=== PATIENT | female | born 1990 | race Caucasian/White ===

== ENCOUNTER 2023-07-29 20:15 | Outpatient (REF) | payer BC, OTHER, SELFPAY ==
[2023-08-03 15:08] LABS: Age Gdln ACOG Testing Note (.); HPV Aptima Negative (Negative); IGP, Aptima HPV, rfx 16/18,45 Note (.)
== END 2023-07-29 20:16 | disposition home or self-care (01) ==
LOC: LAB 20:15
PROVIDERS: PCP Family Medicine; Visit Provider Obstetrics & Gynecology
DX: Z12.4 Encounter for screening for malignant neoplasm of cervix (principal)
CPT/HCPCS: 87624; G0145

== ENCOUNTER 2023-12-29 07:52 | Outpatient (OUT) | payer BC, SELFPAY | END 2023-12-29 07:53 | disposition home or self-care (01) | PROVIDERS: PCP Family Medicine; Visit Provider Obstetrics & Gynecology | DX: R10.2 Pelvic and perineal pain (principal); N80.9 Endometriosis, unspecified ==

== ENCOUNTER 2024-01-07 08:56 | Day surgery (SDC) | payer BC, SELFPAY ==
[2023-12-29 08:22] VITALS: BP 96/63; PULSE 85; RESP 16; TEMP 36.2; O2SAT 98; BMI 21.9
[2024-01-07] VITALS (11 sets, daily range): BP systolic 84–111; BP diastolic 52–70; PULSE 55–90; RESP 16–25; TEMP 36.4; O2SAT 95–100; BMI 23.3
[2024-01-07 09:05] LABS: Basophils Percent Auto 0.5 % (0.2-2.0); Eosinophils Absolute Auto 0.1 10^3/uL (0.0-0.7); Eosinophils Percent Auto 1.1 % (0.9-7.0); Hematocrit 45.9 % (36.0-48.0); Hemoglobin 15.5 g/dL (12.0-16.0); Immature Granulocytes Abs Auto 0.01 10^3/uL (0.00-0.03); Immature Granulocytes Pct Auto 0.2 % (0.0-0.5); Lymphocytes Percent Auto 46.9 % (20.5-60.0); Mean Corpuscular HGB Conc 33.8 g/dL (29.9-35.2); Mean Corpuscular Hemoglobin 31.8 pg (26.7-34.0); Mean Corpuscular Volume 94.3 fL (81.0-99.0); Monocytes Absolute Auto 0.4 10^3/uL (0.3-0.8); Monocytes Percent Auto 5.5 % (1.7-12.0); Neutrophils Absolute Auto 2.9 10^3/uL (1.4-6.5); Neutrophils Percent Auto 45.8 % (43.0-75.0); Platelet Count 231 10^3/uL (150-450); Red Blood Count 4.87 10^6/uL (4.20-5.40); Red Cell Distribution Width 11.8 % (11.0-15.0); White Blood Count 6.4 10^3/uL (4.0-11.0)
--- OUTSIDE RECORDS SUMMARY | 2024-01-07 09:15 | XMS_ITS | CCD ---
Author Name Unknown Address [address] [facility] [address] [place] [id number] Organization [facility] Care Team Providers Care Crown Buffer Name Role Phone RAIN ., DR MARY Attending Unavailable RAIN ., DR MARY Admitting Unavailable JAUNY ., DR MARY Primary Care Unavailable JAUNY ., DR MARY Consulting Unavailable SARAI WILKINS Consulting Unavailable LAVON ELIZALDE Consulting Unavailable SISTER, CUCA Consulting Unavailable RATURO II, LUL Consulting Unavailable TAMLYN ., DL Consulting Unavailable KARTARAN ., DR HENAO Admitting Unavailabl e KARASIK ., DR HENAO Consulting Unavailabl e KARASIK ., DR HENAO Attending Unavailabl e HOY ., DR MARY Primary Care Unavailable ANGELIA ATKINS Attending Unavailable Problems Active Problems Problem Classification Problem Date Documented Da te Episodic/Chronic Abdominal pain (3 sources) Unspecified abdominal pain; Translations: [UNSPECIFIED ABDOMINAL PAIN] Onset: 04-03-2023 Episodic Anxiety disorders (1 source) Anxiety disorder, unspecified; Translations: [ANXIETY DISORDER UNSPECIFIED] Onset: 04-08-2023 Chronic Appendicitis and other appendiceal conditions (1 source) Unspecified acute appendicitis; Translations: [UNSPECIFIED ACUTE APPENDICITIS] Onset: 04-08-2023 Episodic Residual codes; unclassified (1 source) Acquired absence of both cervix and uterus; Translations: [ACQUIRED ABSENCE BOTH CERVIX AND UTERUS] Onset: 04-08-2023 Episodic Substance-related disorders (1 source) Nicotine dependence, cigarettes, uncomplicated; Translations: [NICOTINE DEPEND CIGARETTES UNCOMP] Onset: 04-08-2023 Chronic Past or Other Problems Problem Classification Problem Date Documented Date Episodic/Chronic Immunizations and screening for infectious disease (1 source) Encounter for screening for human papillomavirus (HPV); Translations: [ENC SCREENING HUMAN PAPILLOMAVIRUS] Onset: 09-11-2022 Episodic Results Test Name Value Interpretation Reference Range Facil ity AMYLASEon 04-03-2023 Amylase [Catalytic activity/Vol] 62 U/L Normal 25-115 [facility] Comment on above: Performed By: #### L JOSR, ANDERSON ####[facility] [id number] [address]Dr. Reece Garg CBC AUTO DIFFon 04-03-2023 BASO # 0.0 103/ul Normal 0.0-0.1 [facility] Comment on above: Performed By: #### C BC #### [facility] [address] [address] [address] Reece Garg Basophils/100 WBC (Bld) 0.3 % Normal 0.2-2.0 [facility] Comment on above: Performed By: #### C BC #### [facility] [address] [address] [address] Reece Garg EO # 0.1 103/ul Normal 0.0-0.7 [facility] Comment on above: Performed By: #### C BC #### [facility] [address] [address] [address] Reece Garg Eosinophils/100 WBC (Bld) 0.6 % Critically low 0.9-7.0 [facility] Comment on above: Performed By: #### C BC #### [facility] [address] [address] [address] Reece Garg Erythrocyte distribution width (RBC) [Ratio] 11.9 % Normal 11.0-15.[address] [facility] Comment on above: Performed By: #### C BC #### [facility] [address] [address] [address] Reece Garg Hematocrit (Bld) [Volume fraction] 37.7 % Normal 36.0-48.0 [facility] Comment on above: Performed By: #### C BC #### [facility] [address] [address] [address] Reece Garg Hemoglobin (Bld) [Mass/Vol] 12.9 g/dL Normal 12.0-16.0 [facility] Comment on above: Performed By: #### C BC #### [facility] [address] [address] [address] Reece Garg IG # 0.05 10e3/ul Critically high 0.00-0.03 [facility] Comment on above: Performed By: #### C BC #### [facility] [address] [address] [address] Reece Garg IG % 0.4 % Normal 0.0-0.5 [facility] Comment on above: Performed By: #### C BC #### [facility] [address] [place] [address] Dr. Reece Garg LYMPH # 2.3 103/ul Normal 1.2-3.8 [facility] Comment on above: Performed By: #### C BC #### [facility] [address] [place] [address] Dr. Reece Garg Lymphocytes/100 WBC (Bld) 20.8 % Normal 20.5-60.0 [facility] Comment on above: Performed By: #### C BC #### [facility] [address] [place] [address] Dr. Reece Garg MANUAL DIFF REQ NO Normal [facility] Comment on above: Performed By: #### C BC #### [facility] [address] [place] [address] Dr. Reece Garg MCH (RBC) [Entitic mass] 32.3 pg Normal 26.7-34.0 [facility] Comment on above: Performed By: #### C BC #### [facility] [address] [place] [address] Dr. Reece Garg MCHC (RBC) [Mass/Vol] 34.2 g/dL Normal 29.9-35.2 [facility] Comment on above: Performed By: #### C BC #### [facility] [address] [place] [address] Dr. Reece Garg MCV (RBC) [Entitic vol] 94.3 fL Normal 81.0-99.0 [facility] Comment on above: Performed By: #### C BC #### [facility] [address] [address] [address] Reece Garg MONO # 0.6 103/ul Normal 0.3-0.[address] [facility] Comment on above: Performed By: #### C BC #### [facility] [address] [place] [address] Dr. Reece Garg Monocytes/100 WBC (Bld) 5.3 % Normal 1.7-12.0 [facility] Comment on above: Performed By: #### C BC #### [facility] [address] [place] [address] Dr. Reece Garg NEUT # 8.1 103/ul Critically high 1.4-6.5 [facility] Comment on above: Performed By: #### C BC #### [facility] [address] [place] [address] Dr. Reece Garg Neutrophils/100 WBC (Bld) 72.6 % Normal 43.0-75.0 [facility] Comment on above: Performed By: #### C BC #### [facility] [address] [place] [address] Dr. Reece Garg Platelet mean volume (Bld) [Entitic vol] 10.2 fL Normal 9.5-13.[address] [facility] Comment on above: Performed By: #### C BC #### [facility] [address] [place] [address] Dr. Reece Garg PLT 163 103/ul Normal 150-[address] [facility] Comment on above: Performed By: #### C BC #### [facility] [address] [place] [address] Dr. Reece Garg RBC 4.00 106/ul Critically low 4.20-5.40 [facility] Comment on above: Performed By: #### C BC #### [facility] [address] [place] [address] Dr. Reece Garg WBC 11.1 103/ul Critically high 4.0-11.0 [facility] Comment on above: Performed By: #### C BC #### [facility] [address] [place] [address] Dr. Reece Garg BASO # 0.0 103/ul Normal 0.0-0.1 [facility] Comment on above: Performed By: #### C BC #### [facility] [address] [place] [address] Dr. Reece Garg Basophils/100 WBC (Bld) 0.3 % Normal 0.2-2.0 [facility] Comment on above: Performed By: #### C BC #### [facility] [address] [place] [address] Dr. Reece Garg EO # 0.1 103/ul Normal 0.0-0.7 [facility] Comment on above: Performed By: #### C BC #### [facility] [address] [place] [address] Dr. Reece Garg Eosinophils/100 WBC (Bld) 0.7 % Critically low 0.9-7.0 [facility] Comment on above: Performed By: #### C BC #### [facility] [address] [place] [address] Dr. Reece Garg Erythrocyte distribution width (RBC) [Ratio] 12.0 % Normal 11.0-15.0 [facility] Comment on above: Performed By: #### C BC #### [facility] [address] [place] [address] Dr. Reece Garg Hematocrit (Bld) [Volume fraction] 41.4 % Normal 36.0-48.0 [facility] Comment on above: Performed By: #### C BC #### [facility] [address] [place] [address] Dr. Reece Garg Hemoglobin (Bld) [Mass/Vol] 14.3 g/dL Normal 12.0-16.0 [facility] Comment on above: Performed By: #### C BC #### [facility] [address] [place] [address] Dr. Reece Garg IG # 0.05 10e3/ul Critically high 0.00-0.03 [facility] Comment on above: Performed By: #### C BC #### [facility] [address] [place] [address] Dr. Reece Garg IG % 0.3 % Normal 0.0-0.5 [facility] Comment on above: Performed By: #### C BC #### [facility] [address] [place] [address] Dr. Reece Garg LYMPH # 1.6 103/ul Normal 1.2-3.8 [facility] Comment on above: Performed By: #### C BC #### [facility] [address] [place] [address] Dr. Reece Garg Lymphocytes/100 WBC (Bld) 10.6 % Critically low 20.5-60.0 [facility] Comment on above: Performed By: #### C BC #### [facility] [address] [place] [address] Dr. Reece Garg MANUAL DIFF REQ NO Normal [facility] Comment on above: Performed By: #### C BC #### [facility] [address] [place] [address] Dr. Reece Garg MCH (RBC) [Entitic mass] 32.1 pg Normal 26.7-34.0 [facility] Comment on above: Performed By: #### C BC #### [facility] [address] [place] [address] Dr. Reece Garg MCHC (RBC) [Mass/Vol] 34.5 g/dL Normal 29.9-35.2 [facility] Comment on above: Performed By: #### C BC #### [facility] [address] [place] [address] Dr. Reece Garg MCV (RBC) [Entitic vol] 93.0 fL Normal 81.0-99.0 [facility] Comment on above: Performed By: #### C BC #### [facility] [address] [place] [address] Dr. Reece Garg MONO # 0.7 103/ul Normal 0.3-0.8 [facility] Comment on above: Performed By: #### C BC #### [facility] [address] [place] [address] Dr. Reece Garg Monocytes/100 WBC (Bld) 4.7 % Normal 1.7-12.0 [facility] Comment on above: Performed By: #### C BC #### [facility] [address] [address] [address] Reece Garg NEUT # 12.9 103/ul Critically high 1.4-6.5 [facility] Comment on above: Performed By: #### C BC #### [facility] [address] [address] [address] Reece Garg Neutrophils/100 WBC (Bld) 83.4 % Critically high 43.0-75.0 [facility] Comment on above: Performed By: #### C BC #### [facility] [address] [place] [address] Dr. Reece Garg Platelet mean volume (Bld) [Entitic vol] 10.4 fL Normal 9.5-13.5 [facility] Comment on above: Performed By: #### C BC #### [facility] [address] [place] [address] Dr. Reece Garg PLT 194 103/ul Normal 150-[address] [facility] Comment on above: Performed By: #### C BC #### [facility] [address] [place] [address] Dr. Reece Garg RBC 4.45 106/ul Normal 4.20-5.[address] [facility] Comment on above: Performed By: #### C BC #### [facility] [address] [place] [address] Dr. Reece Garg WBC 15.4 103/ul Critically high 4.0-11.0 [facility] Comment on above: Performed By: #### C BC #### [facility] [address] [place] [address] ABD/PELV W CONon 04-03-20 CT ABD/PELV W CON CT ABD/PELV W CON: 04/02/2023 11:09 PM EDT CLINICAL HISTORY: 33 years old Female with NAUSEA WITH VOMITING, UNSPECIFIED. TECHNIQUE: Axial CT images through the abdomen and pelvis are obtained after the intravenous administration of contrast. Coronal and sagittal reformations are also obtained. Dose reduction techniques were achieved by using automated exposure control and/or adjustment of mA and/or kV according to patient size and/or use of iterative reconstruction technique. COMPARISON: None available. FINDINGS: The lung bases are clear with no dependent infiltrate or effusion. The liver, gallbladder, spleen, pancreas and bilateral adrenal glands are unremarkable. The bilateral kidneys demonstrate normal enhancement without hydronephrosis. The bilateral ureters demonstrate no gross abnormality or obstruction. The stomach and small bowel are unremarkable. The appendix is abnormally distended at 1.0 cm and fluid-filled with enhancing mucosa and surrounding stranding densities. Small free fluid is present within the pelvis. There is fluid density within the cecum and the majority of the colon is nondistended with apparent mucosal thickening. No free air or abscess formation. The bladder appears unremarkable. There is no evidence of aortic aneurysm present. No enlarged lymph nodes are seen. No free air or free fluid is seen. The uterus is surgically absent. Right corpus luteal cyst measures 2.2 x 1.7 x 2.8 cm in AP, transverse and longitudinal diameter. The osseous structures appear unremarkable. IMPRESSION: 1. Acute appendicitis with the appendix distended at 1.0 cm with stranding stranding and free fluid. No free air or abscess formation. 2. Fluid within the colon is largely nondistended with apparent mucosal thickening suggesting diarrheal illness and possible colitis. 3. Right corpus luteal cyst measures 2.8 cm. Findings discussed with Dr. Wilkins 04/03/2023 at 1:32 AM. Electronically authenticated by: LAVON ELIZALDE Date: 2023-04-03 01:36 Normal [facility] ER URINE PROFILEon 3 Bilirubin Ql (U) Negative Normal NEGATIVE [facility] Comment on above: Performed By: #### P REGU, ERUR #### [facility] [address] [place] [address] Dr. Reece Garg Clarity (U) CLEAR Normal CLEAR [facility] Comment on above: Performed By: #### P REGU, ERUR #### [facility] [address] [address] [address] Reece Garg Color (U) LT. YELLOW Normal YELLOW [facility] Comment on above: Performed By: #### P REGU, ERUR #### [facility] [address] [place] [address] Dr. Reece KHAN A micrscopic examination will be performed if indicated. Normal [facility] Comment on above: Performed By: #### P REGU, ERUR #### [facility] [address] [address] [address] Reece Garg Glucose Ql (U) Negative Normal NEGATIVE [facility] Comment on above: Performed By: #### P REGU, ERUR #### [facility] [address] [address] [address] Reece Garg Hemoglobin Ql (U) Negative Normal NEGATIVE [facility] Comment on above: Performed By: #### P REGU, ERUR #### [facility] [address] [place] [address] Dr. Reece Garg Ketones Ql (U) 15 mg/dl Abnormal NEGATIVE [facility] Comment on above: Performed By: #### P REGU, ERUR #### [facility] [address] [place] [address] Dr. Reece Garg LEUKOCYTES Negative Normal NEGATIVE [facility] Comment on above: Performed By: #### P REGU, ERUR #### [facility] [address] [address] [address] Reece Garg Nitrite Ql (U) Negative Normal NEGATIVE [facility] Comment on above: Performed By: #### P REGU, ERUR #### [facility] [address] [place] [address] Dr. Reece Garg pH (U) 5.5 [pH] Normal 5-9 [facility] Comment on above: Performed By: #### P REGU, ERUR #### [facility] [address] [place] [address] Dr. Reece Garg SPEC GRAVITY <=1.005 Abnormal 1.005-<=1.025 [facility] Comment on above: Performed By: #### P REGU, ERUR #### [facility] [address] [place] [address] Dr. Reece Garg UA PROTEIN Negative Normal NEGATIVE/ TRACE [facility] Comment on above: Performed By: #### P REGU, ERUR #### [facility] [address] [address] [address] Reece Garg UR MICRO IND NOT INDICATED Normal [facility] Comment on above: Performed By: #### P REGU, ERUR #### [facility] [address] [address] [address] Reece Garg Urobilinogen Qn (U) 0.2 {Dariel'U}/dL Normal 0.2 - 1.0 [facility] Comment on above: Performed By: #### P REGU, ERUR #### [facility] [address] [place] [address] Dr. Reece Garg LIPASEon 04-03-2023 Lipase [Catalytic activity/Vol] 62.0 U/L Critically low 73.0-393.0 [facility] Comment on above: Performed By: #### L IPA, ANDERSON ####[facility] [id number] [address]Dr. Reece Garg MONOon 04-03-2023 Monocytes (Bld) [#/Vol] Negative Normal NEGATIVE [facility] Comment on above: Performed By: #### M JOSE DANIEL #### [facility] [address] [place] [address] Dr. Reece Garg URon 04-03-2023 , QUAL Negative Normal NEGATIVE [facility] Comment on above: Performed By: #### P REGU, ERUR #### [facility] [address] [place] [address] Dr. Reece Garg PROF 14(COMP METB)on 023 Albumin [Mass/Vol] 3.3 g/dL Critically low 3.4-5.[address] [facility] Comment on above: Performed By: #### C MP #### [facility] [address] [place] [address] Dr. Reece Garg Albumin/Globulin [Mass ratio] 1.0 {ratio} Normal [facility] Comment on above: Performed By: #### C MP #### [facility] [address] [place] [address] Dr. Reece Garg ALP [Catalytic activity/Vol] 38 U/L Critically low 46-116 [facility] Comment on above: Performed By: #### C MP #### [facility] [address] [address] [address] Reece Garg ALT [Catalytic activity/Vol] 16 U/L Normal 14-59 [facility] Comment on above: Performed By: #### C MP #### [facility] [address] [address] [address] Reece Garg Anion gap [Moles/Vol] 10.7 mmol/L Normal [facility] Comment on above: Performed By: #### C MP #### [facility] [address] [address] [address] Reece Garg AST [Catalytic activity/Vol] 10 U/L Critically low 15-37 [facility] Comment on above: Performed By: #### C MP #### [facility] [address] [address] [address] Reece Garg Bilirubin [Mass/Vol] 1.0 mg/dL Normal 0.2-1.0 [facility] Comment on above: Performed By: #### C MP #### [facility] [address] [address] [address] Reece Garg Calcium [Mass/Vol] 8.2 mg/dL Critically low 8.5-10.[address] [facility] Comment on above: Performed By: #### C MP #### [facility] [address] [address] [address] Reece Garg Chloride [Moles/Vol] 106 mmol/L Normal 98-[address] [facility] Comment on above: Performed By: #### C MP #### [facility] [address] [address] [address] Reece Garg CO2 [Moles/Vol] 27.0 mmol/L Normal 21.0-32.0 [facility] Comment on above: Performed By: #### C MP #### [facility] [address] [address] [address] Reece Garg Creatinine [Mass/Vol] 0.77 mg/dL Normal 0.55-1.02 [facility] Comment on above: Performed By: #### C MP #### [facility] [address] [address] [address] Reece Garg EGFR-AF SALVADOREAN >60 Normal >=60 [facility] Comment on above: Performed By: #### C MP #### [facility] [address] [address] [address] Reece Garg EGFR-NON AF SALVADOREAN >60 Normal >=[address] [facility] Comment on above: Performed By: #### C MP #### [facility] [address] [address] [address] Reece Garg Globulin (S) [Mass/Vol] 3.3 g/dL Normal [facility] Comment on above: Performed By: #### C MP #### [facility] [address] [address] [address] Reece Garg Glucose [Mass/Vol] 102 mg/dL Normal 74-106 [facility] Comment on above: Performed By: #### C MP #### [facility] [address] [address] [address] Reece Garg Potassium [Moles/Vol] 3.7 mmol/L Normal 3.5-5.[address] [facility] Comment on above: Performed By: #### C MP #### [facility] [address] [address] [address] Reece Garg Protein [Mass/Vol] 6.6 g/dL Normal 6.4-8.2 [facility] Comment on above: Performed By: #### C MP #### [facility] [address] [address] [address] Reece Garg Sodium [Moles/Vol] 140 mmol/L Normal 136-145 [facility] Comment on above: Performed By: #### C MP #### [facility] [address] [address] [address] Reece Garg Urea nitrogen [Mass/Vol] 8.0 mg/dL Normal 7.0-18.0 [facility] Comment on above: Performed By: #### C MP #### [facility] [address] [place] [address] Dr. Reece Garg Urea nitrogen/Creatinin e [Mass ratio] 10.4 mg/mg Normal [facility] Comment on above: Performed By: #### C MP #### [facility] [address] [place] [address] Dr. Reece Garg PROTIMEon 04-03-2023 INR Coag (PPP) [Relative time] 1.06 {INR} Normal [facility] Comment on above: Performed By: #### P TT, PT #### [facility] [address] [place] [address] Dr. Reece Garg INR GUIDELINES SEE BELOW Normal [facility] Comment on above: Result Comment: JJ RED INR: 2.0 - 3.0 CONDITIONS NOT LISTED BELOW 2.5 - 3.5 FOR PROSTHETIC HEART VALVE REPLACEMENT 2.5 - 3.5 RECURRENT THROMBOSIS Performed By: #### P TT, PT #### [facility] [address] [place] [address] Dr. Reece Garg PT Coag (PPP) [Time] 11.2 s Normal 9.0-11.[address] [facility] Comment on above: Performed By: #### P TT, PT #### [facility] [address] [place] [address] Dr. Reece Garg PTTon 04-03-2023 aPTT Coag (Bld) [Time] 28.1 s Normal 22.3-36.[address] [facility] Comment on above: Performed By: #### P TT, PT #### [facility] [address] [place] [address] Dr. Reece Garg PAP ACOG PANEL 2: 30 to 65on 07-28-2022 . . Normal [facility] Comment on above: Result Comment: Perf ormed at: WB Performed By: #### [id number] ####[facility] [address] [place] [address]Dr. Reece Garg Age Gdln ACOG Testing 30-65 Normal [facility] Comment on above: Performed By: #### [id number] ####[facility] [address] [place] [id number]. Reece Garg DIAGNOSIS: Comment Normal [facility] Comment on above: Result Comment: NEGA TIVE FOR INTRAEPITHELIAL LESION OR MALIGNANCY. Performed at: WB Performed By: #### 4 [id number] ####[facility] [address] [place] [address]Dr. Reece Garg HPV Aptima Negative Normal Negative [facility] Comment on above: Result Comment: This nucleic acid amplification test detects fourteen high-risk HPV types (16,18,31,33,35,39,45,51,52,56,58,59,66,68) without differentiation. Performed at: =G Performed By: #### [id number] ####[facility] [address] [place], [place] [address]Dr. Reece Garg Methodology: Comment Normal [facility] Comment on above: Result Comment: This liquid based ThinPrep(R) pap test was screened with the use of an image guided system. Performed at: WB Performed By: #### [id number] ####[facility] [address] [place], [place] [address]Dr. Reece Garg Note: Comment Normal [facility] Comment on above: Result Comment: The Pap smear is a screening test designed to aid in the detection of premalignant and malignant conditions of the uterine cervix. It is not a diagnostic procedure and should not be used as the sole means of detecting cervical cancer. Both false-positive and false-negative reports do occur. . Performed at: WB Performed By: #### [id number] ####[facility] [address] [place], [place] [address]Dr. Reece Garg Performed by: Comment Normal [facility] Comment on above: Result Comment: Alexandra Cortez, Pharmacoepidemiologist (ASCP) Performed at: WB Performed By: #### [id number] ####[facility] [address] [place], [place] [address]Dr. Reece Garg Specimen adequacy: Comment Normal [facility] Comment on above: Result Comment: Sati sfactory for evaluation. No endocervical component is identified. Performed at: WB Performed By: #### [id number] ####[facility] [address] [place], [place] [address]ZhDr. Reece Garg VAGINITIS/VAGINOSIS DNA PROB Erwin 07-24-2022 Mala species Negative Normal Negative [facility] Comment on above: Performed By: #### V AGINT #### [facility] [address] [place], [place] [address] Dr. Reece Garg Gardnerella vaginalis Positive Abnormal Negative [facility] Comment on above: Performed By: #### V AGINT #### [facility] [address] [address] [address] Reece Grag Trichomonas vaginalis Negative Normal Negative [facility] Comment on above: Performed By: #### V AGINT #### [facility] [address] [address] [address] Reece Garg [place] 06-03-2020 Consent [id number]. [id number] Normal [facility] Encounters Encounter Date Encounter Type Care Provider Facility Start: 11-04-2023 End: 11-04-2023 ambulatory ANGELIA ATKINS Not Available Start: 04-03-2023 End: 04-03-[address] USMAN RODRIGEZ . Facility:[facility] Start: 07-26-2022 Encounter for gynecological examination (general) (routine) without abnormal findings DR EARLENE MCDONOUGH . [facility] Start: 07-22-2022 End: 07-22-[address] EARLENE MCDONOUGH . Facility:[facility] Start: 07-22-2022 End: 07-22-2022 Encounter for gynecological examination (general) (routine) without abnormal findings DR EARLENE MCDONOUGH . Facility:[facility] Payers Date Payer Category Payer Unknown [id number] [id number] [id number] 1992 Unknown [id number] 1992 Unknown [id number] 1957 Medicaid [id number] 1957 Unknown [id number] 1957 Unknown [id number] 1959 Unknown [id number] Summary Purpose Family History No Family History Records FoundNo Family History Records FoundNo Family History Records Found Advance Directives No Advanced Directives Records FoundNo Advanced Directives Records FoundNo Advanced Directives Records Found Additional Source Comments INFORMATION SOURCE (unrecogn ized section and content) DATE CREATED AUTHOR 06/08/2020 [facility] DATE CREATED AUTHOR AUTHOR'S ORGANIZ ATION 04/23/2023 [facility] DATE CREATED AUTHOR AUTHOR'S ORGANIZ ATION 11/06/2023 [facility] FOR RECORDS PERTAINING TO PATIENTS WHO ARE OR HAVE BEEN ENROLLED IN A CHEMICAL DEPENDENCY/SUBSTANCEABUSE PROGRAM, SOME INFORMATION MAY BE OMITTED. This clinical summary was aggregated from multiple sources. Caution should be exercised in using it in the provision of clinical care. This summary normalizes information from multiple sources, and as a consequence, information in this document may materially change the coding, format and clinical context of patient data. In addition, data may be omitted in some cases. CLINICAL DECISIONS SHOULD BE BASED ON THE PRIMARY CLINICAL RECORDS. [facility] [employer] [facility]. provides no warranty or guarantee of the accuracy or completeness of information in this document.
[2024-01-07] MEDS: LACTATED RINGER'S SOLUTION 1,000 ML 50 ML IV (09:36)
--- NOTE | 2024-01-07 11:29 | PM.ONB ---
Brief Operative Note Date of procedure: 01/07/24 Pre-op diagnosis: pelvic pain Post-op diagnosis: other (bilateral hydrosalpingx) Procedure: NAME OF PROCEDURE: [diagnostic laparoscopy with bilateral salpingectomy(partial) ] findings-constipation, bilateral hydrosalpingx, absent uterus,normal ovaries PROCEDURE: The patient was taken back to the Operating Room where she was placed in dorsal lithotomy position after given general anesthesia. The patient was prepped and draped in normal sterile fashion. A sponge stick was placed into the patient's vagina. Attention was turned to the patient's abdomen, where a small umbilical incision was made. The fascia was tented using Herberth clamps and the fascia was entered sharply. Confirmation of intraabdominal placement of the 10 mm port was confirmed under direct visualization using a laparoscope. The patient's abdomen was then insufflated using CO2 gas with approximately 4 liters. A second port was placed left laterally, this was done under direct visualization with a 5 mm port. Survey of the patient's abdomen demonstrated normal liver and gallbladder. Survey of the patient's pelvic anatomy demonstrated normal appearing rt and lt ovary and bilateral hydrosalpingx, absent uterus. No endometrial implants could be noted, no evidence of any pelvic disease was seen, normal appearing pelvic cavity. The ligasure was used to remove the tubes bilateral with excellent hemostasis All instruments were removed from the patient's abdomen. The patient's abdomen was deinsufflated of CO2 gas. The patient tolerated the procedure well. Sponge stick was removed from the patient's vagina. The patient's infraumbilical fascia was closed using #0 Vicryl on a GI needle. The patient's skin was closed laterally and infraumbilically using 4-0 Vicryl. The patient tolerated the procedure well. Sponge, lap and needle counts were correct x 2. The patient was taken to Recovery Room in stable condition. Anesthesia: JOYCEA Surgeon: Andre Treviño Scientist Electronics: Macey Nobles Estimated blood loss (mL): 5 Pathology: other (bilateral tubes) Condition: stable Disposition: PACU Urinary Catheter Management Urinary Catheter Management Urethral: Cath placed during this visit: no
[2024-01-07] MEDS: LACTATED RINGER'S SOLUTION 1,000 ML 150 ML IV ×2 (12:05→13:08)
[2024-01-07] MEDS: PROMETHAZINE HCL 25 MG TABLET PO (12:09)
--- NOTE | 2024-01-07 12:15 | PC.NURSE ---
pt medicatd at 1209 for nausea with PRN PO phenergan.
[2024-01-07] MEDS: ONDANSETRON PF 4 MG/2 ML VIAL IV (12:30)
--- NOTE | 2024-01-07 12:32 | PC.NURSE ---
pt has complaint of nausea,given one time dose of IV Zofran at 1230.
== END 2024-01-07 13:58 | disposition home or self-care (01) ==
PROVIDERS: PCP Family Medicine; Visit Provider Obstetrics & Gynecology
PROC: (CPT 840; principal; 2024-01-07 10:20)
DX: R10.2 Pelvic and perineal pain (principal); N80.9 Endometriosis, unspecified; N70.11 Chronic salpingitis; Z90.710 Acquired absence of both cervix and uterus; F17.210 Nicotine dependence, cigarettes, uncomplicated
CPT/HCPCS: 58661; 36415; 85025; 88302; 99999; J1094; J2704

== ENCOUNTER 2024-01-23 09:10 | Emergency (ER) | payer BC, SELFPAY ==
[2024-01-23 09:33] VITALS: BP 132/98; PULSE 108; RESP 20; O2SAT 98; BMI 23.2
--- NOTE | 2024-01-23 09:54 | ED.EXTPRO1 ---
HPI - Extremity Problem General Chief complaint: Extremity Problem, Nontraumatic Stated complaint: L LEG SWOLLEN/APIN Time Seen by Provider: 01/23/24 09:15 Source: patient Mode of arrival: walk-in Limitations: no limitations History of Present Illness HPI Narrative: 33-year-old female presents for discoloration and swelling and pain in her left leg. She has had it for a week and it has been continuous and getting worse. 2 or 3 weeks ago she had laparoscopic abdominal surgery. She has had no trauma to the leg and has no history of DVT or PE. Her mother however has a history of blood clots. Related Data Home Medications Medication Instructions Recorded Confirmed Lactobacillus acidophilus 10 100 mmu cells PO DAILY 12/29/23 01/23/24 billion cell capsule (Probiotic) levonorgestrel 0.15 mg-ethinyl 1 tab PO DAILY 12/29/23 01/23/24 estradiol 30 mcg tablets,3 mos pack(91) Previous Rx's Medication Instructions Recorded hydrocodone 5 mg-acetaminophen 325 1 tab PO Q4H PRN pain 4 days #16 01/07/24 mg tablet tabs ibuprofen 800 mg tablet 800 mg PO Q8H PRN pain 14 days #40 01/07/24 tabs Allergies Allergy/AdvReac Type Severity Reaction Status Date / Time No Known Drug Allergies Allergy Verified 12/29/23 08:11 Review of Systems ROS Narrative A ten point review of systems is negative except as noted above. [facility] Medical History (Updated 01/23/24 @ 11:18 by Duane Ness MD) COVID-19 ?U07.1 - COVID-19 (ICD-10) Migraine ?G43.909 - Migraine, unspecified, not intractable, without status migrainosus (ICD-10) Constipation ?K59.00 - Constipation, unspecified (ICD-10) Postoperative nausea and vomiting ?R11.2 - Nausea with vomiting, unspecified (ICD-10) ?Z98.890 - Other specified postprocedural states (ICD-10) Vaginal yeast infection ?B37.31 - Acute candidiasis of vulva and vagina (ICD-10) Bacterial vaginosis ?N76.0 - Acute vaginitis (ICD-10) ?B96.89 - Other specified bacterial agents as the cause of diseases classified elsewhere (ICD-10) Endometriosis ?N80.9 - Endometriosis, unspecified (ICD-10) Pelvic pain ?R10.2 - Pelvic and perineal pain (ICD-10) Surgical History (Updated 12/29/23 @ 08:18 by Lydia Ames NP) History of colonoscopy ?Z98.890 - Other specified postprocedural states (ICD-10) History of hysterectomy ?Z90.710 - Acquired absence of both cervix and uterus (ICD-10) History of laparoscopy ?Z98.890 - Other specified postprocedural states (ICD-10) History of appendectomy ?Z90.49 - Acquired absence of other specified parts of digestive tract (ICD-10) Family History (Updated 12/29/23 @ 08:18 by Lydia Ames NP) Other Family history of breast cancer Family history of myocardial infarction Social History (Updated 12/29/23 @ 08:13 by Lydia Ames NP) Within the past year, how often did you have a drink containing alcohol: never Score interpretation: A score less than 3 is consistent with normal alcohol consumption. 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 General: The patient appears well and in no apparent distress. Patient is resting comfortably on cart. Skin: Warm, dry, no pallor noted. There is no rash noted. Head: Normocephalic, atraumatic Eye: Normal conjunctiva, no drainage Ears, Nose, Mouth, and Throat: oral mucosa is moist. Nares patent. Cardiovascular: Regular Rate and Rhythm Respiratory: Patient is in no distress, no accessory muscle use, lungs are clear to auscultation, no wheezing, rales or rhonchi Back: non-tender GI: Soft and nontender Musculoskeletal: The left leg has swelling throughout the entire length and purple discoloration. Dorsalis pedis pulse 2+. Neurological: A&O, normal speech Psychiatric: Cooperative Constitutional Vital Signs, click to edit/add: Last Vital Signs Temp 98.4 F 01/23/24 11:10 Pulse 95 H 01/23/24 11:10 Resp 20 01/23/24 11:10 BP 112/68 01/23/24 11:10 Pulse Ox 98 01/23/24 11:10 O2 Del Method Room Air 01/23/24 11:10 Course Vital Signs Vital signs: Vital Signs Pulse Rate 108 H 01/23/24 09:33 Respiratory Rate 20 01/23/24 09:33 Blood Pressure 132/98 H 01/23/24 09:33 Pulse Oximetry 98 01/23/24 09:33 Oxygen Delivery Method Room Air 01/23/24 09:33 Temperature 98.4 F 01/23/24 11:10 Pulse Rate 95 H 01/23/24 11:10 Respiratory Rate 20 01/23/24 11:10 Blood Pressure 112/68 01/23/24 11:10 Pulse Oximetry 98 01/23/24 11:10 Oxygen Delivery Method Room Air 01/23/24 11:10 MDM - Extremity (Nontraumatic) MDM Narrative Medical decision making narrative: Extensive DVT is noted on the Doppler ultrasound. My clinical impression is that she has extensive DVT as well as phlegmasia. I have spoken to Dr. Bridges and the patient will be transferred to [facility] for probable thrombectomy. She was started on IV heparin here. Findings are discussed thoroughly with the patient. Differential Diagnosis Differential diagnosis: Likely other (DVT) Lab Data Attestation: I reviewed the patient's lab results. Labs: Lab Results 01/23/24 Range/Units 10:04 WBC 8.8 (4.0-11.0) 10^3/uL RBC 4.45 (4.20-5.40) 10^6/uL Hgb 14.3 (12.0-16.0) g/dL Hct 42.6 (36.0-48.0) % MCV 95.7 (81.0-99.0) fL MCH 32.1 (26.7-34.0) pg MCHC 33.6 (29.9-35.2) g/dL RDW 11.6 (11.0-15.0) % Plt Count 153 (150-450) 10^3/uL MPV 10.0 (9.5-13.5) fL Neut % (Auto) 70.6 (43.0-75.0) % Lymph % (Auto) 20.8 (20.5-60.0) % [place] % (Auto) 5.5 (1.7-12.0) % Eos % (Auto) 2.3 (0.9-7.0) % Baso % (Auto) 0.3 (0.2-2.0) % Neut # (Auto) 6.2 (1.4-6.5) 10^3/uL Lymph # (Auto) 1.8 (1.2-3.8) 10^3/uL [place] # (Auto) 0.5 (0.3-0.8) 10^3/uL Eos # (Auto) 0.2 (0.0-0.7) 10^3/uL Baso # (Auto) 0.0 (0.0-0.1) 10^3/uL Abs Immat Gran (auto) 0.04 H (0.00-0.03) 10^3/uL Imm/Tot Granulo (auto) 0.5 (0.0-0.5) % PT 9.8 (9.0-11.6) sec INR <0.93 APTT 27.2 (22.3-36.2) sec Sodium 139 (136-145) mmol/L Potassium 4.2 (3.5-5.1) mmol/L Chloride 105 (98-107) mmol/L Carbon Dioxide 24.5 (21.0-32.0) mmol/L Anion Gap 13.7 BUN 12.0 (7.0-18.0) mg/dL Creatinine 0.85 (0.55-1.02) mg/dL Est GFR ( Amer) >60 (>=60) Est GFR (Non-Af Amer) >60 (>=60) BUN/Creatinine Ratio 14.1 Glucose 83 (74-106) mg/dL Calcium 8.8 (8.5-10.1) mg/dL Imaging Data Doppler ultrasound: Radiologist's impression: ITS Impressions Venous Doppler Study 01/23/24 10:12 IMPRESSION: Extensive deep venous thrombus throughout the left iliac vein to the distal posterior tibial vein and peroneal vein as well as proximal anterior tibial vein. Electronically authenticated by: ALTA SALAZAR Date: 01/23/2024 11:08 Critical Care Time Critical Care Time Critical Care Time: Yes Total Critical Care Time: 40 Attestation: Due to the high probability of sudden and clinically significant deterioration in the patient's condition he/she required the highest level of my preparedness to intervene urgently I provided critical care time including documentation time, medication orders and management, reevaluation, vital sign assessment, ordering and reviewing of lab tests, ordering and reviewing of x-ray studies, and admission orders. Aggregate critical care time is 40 minutes including only time during which I was engaged in work directly related to his/her care and did not include time spent treating other patients simultaneously. Discharge Plan Discharge Chief Complaint: Extremity Problem, Nontraumatic Clinical Impression: Deep vein thrombosis of lower extremity Patient Disposition: [facility] Time of Disposition Decision: 11:17 Discharge Location: [facility] Condition: Good Mode of Transportation: EMS
--- OUTSIDE RECORDS SUMMARY | 2024-01-23 10:00 | XMS_ITS | CCD ---
Author Name Unknown Address [address] [place] [address] Organization [facility] Care Team Providers Care Reel Film Inspector Name Role Phone RAIN ., DR MARY Attending Unavailable RAIN ., DR MARY Admitting Unavailable JAUNY ., DR MARY Primary Care Unavailable HOY ., DR MARY Consulting Unavailable SARAI WILKINS Consulting Unavailable LAVON ELIZALDE Consulting Unavailable SISTER, CUCA Consulting Unavailable ARTURO II, LUL Consulting Unavailable TAMLYShane .DL Consulting Unavailable KARASIFilipe ., DR HENAO Admitting Unavailabl e KARASIK ., DR HENAO Consulting Unavailabl e KARASIK ., DR HENAO Attending Unavailabl e HOY ., DR MARY Primary Care Unavailable Angelia Treviño Attending Unavailable Angelia Treviño Admitting Unavailable ANGELIA TREVIÑO Attending Unavailable ANDERSON FRIED Attending Unavailable ANGELIA TREVIÑO Attending Unavailable Problems Active Problems Problem Classification [...] (HPV); Translations: [ENC SCREENING HUMAN PAPILLOMAVIRUS] Onset: 07-26-2022 Episodic Results Test Name Value Interpretation Reference Range Chuyita Eaton 01-07-2024 L Specimen: [id number] Received: 01/10/24 Status: MICHAEL Waldron Num: [id number] Spec Type: Surgical Subm Dr: Angelia Treviño Tissues: A Fallopian Tube - Sterilization (BILATERAL) Procedures: HE/3, Gross/Micro L2 Age/ Patient Sex Location Account Attending Physician Kimberly Silverman 33/F LABELL [id number] Angelia Treviño SPEC NUM: [id number] RECD: 01/10/24 STATUS: MICHAEL WALDRON NUM: [id number] ANICETO: 01/07/[address]: Angelia Treviño ENTERED: 01/10/[address]: Lopez,Lab SPEC TYPE: Surgical DEPT: FRANTZ FINE ORDERED: HE/3, Gross/Micro L2 ORDERED: HE/3, Gross/Micro L2 Pathological Diagnosis Bilateral fallopian tubes, resection: No Significant Pathologic Abnormality. Clinical Information Pelvic pain, endometriosis Gross Description Received in formalin labeled with the patient's name, date of and bilateral fallopian tubes are 3 white to ford cylindrical tissue segments. There are no fimbria identified. There is no orientation provided. The segments are 2.2 x 0.5 cm, 3.5 x 0.8 cm, and a markedly tortuous but approximately 5 x 0.4 cm. The external aspects are predominantly smooth and glistening with focal adhesions. Sectioning demonstrates markedly dilated lumens throughout all 3 segments. [employer] sections are submitted in 3 cassettes as follows: A1 - Cross-sections of shortest segment A2 - Cross-sections intermediate length segment A3 - Cross-sections longest segment CPT Codes 44666 ---- ---- Specimen: [id number] Received: 01/10/24 Status: MICHAEL Vanita Num: [id number] Spec Type: Surgical Subm Dr: Angelia Treviño Tissues: A Fallopian Tube - Sterilization (BILATERAL) Procedures: HE/3, Gross/Micro L2 ---- Patient: Kimberly Silverman [id number] (Continued) ---- Signed (signature on file) Jani Garcia MD 01/15/24 0853 Normal [facility] AMYLASEon 04-03-2023 Amylase [Catalytic activity/Vol] 62 U/L Normal 25-115 [facility] Comment on above: Performed By: #### L ANDERSON OVALLES ####[facility] [id number] [place] [address]DrHardik Garg CBC AUTO DIFFon 04-03-2023 BASO # 0.0 103/ul Normal 0.0-0.1 [facility] Comment on above: Performed By: #### C BC #### [facility] [address] [place] [address] Dr. Reece Garg Basophils/100 WBC (Bld) 0.3 % Normal 0.2-2.0 [facility] Comment on above: Performed By: #### C BC #### [facility] [address] [place] [address] Dr. Reece Garg EO # 0.1 103/ul Normal 0.0-0.7 [facility] Comment on above: Performed By: #### C BC #### [facility] [address] [place] [address] Dr. Reece Garg Eosinophils/100 WBC (Bld) 0.6 % Critically low 0.9-7.0 [facility] Comment on above: Performed By: #### C BC #### [facility] [address] [place] [address] Dr. Reece Garg Erythrocyte distribution width (RBC) [Ratio] 11.9 % Normal 11.0-15.0 [facility] Comment on above: Performed By: #### C BC #### [facility] [address] [place] [address] Dr. Reece Garg Hematocrit (Bld) [Volume fraction] 37.7 % Normal 36.0-48.0 [facility] Comment on above: Performed By: #### C BC #### [facility] [address] [place] [address] Dr. Reece Garg Hemoglobin (Bld) [Mass/Vol] 12.9 g/dL Normal 12.0-16.0 [facility] Comment on above: Performed By: #### C BC #### [facility] [address] [place] [address] Dr. Reece Garg IG # 0.05 10e3/ul Critically high 0.00-0.03 [facility] Comment on above: Performed By: #### C BC #### [facility] [address] [place] [address] Dr. Reece Garg IG % 0.4 % Normal 0.0-0.5 [facility] Comment on above: Performed By: #### C BC #### [facility] [address] [place] [address] Dr. Reece Garg LYMPH # 2.3 103/ul Normal 1.2-3.8 [facility] Comment on above: Performed By: #### C BC #### [facility] [address] [place] [address] Dr. Reece Garg Lymphocytes/100 WBC (Bld) 20.8 % Normal 20.5-60.0 [facility] Comment on above: Performed By: #### C BC #### [facility] [address] [place] [address] Dr. Reece Garg MANUAL DIFF REQ NO Normal [facility] Comment on above: Performed By: #### C BC #### [facility] [address] [place] [address] Dr. Reece Garg MCH (RBC) [Entitic mass] 32.3 pg Normal 26.7-34.0 [facility] Comment on above: Performed By: #### C BC #### [facility] [address] [place] [address] Dr. Reece Garg MCHC (RBC) [Mass/Vol] 34.2 g/dL Normal 29.9-35.2 [facility] Comment on above: Performed By: #### C BC #### [facility] [address] [place] [address] Dr. Reece Garg MCV (RBC) [Entitic vol] 94.3 fL Normal 81.0-99.0 [facility] Comment on above: Performed By: #### C BC #### [facility] [address] [place] [address] Dr. Reece Garg MONO # 0.6 103/ul Normal 0.3-0.8 [facility] Comment on above: Performed By: #### C BC #### [facility] [address] [place] [address] Dr. Reece Garg Monocytes/100 WBC (Bld) 5.3 % Normal 1.7-12.0 [facility] Comment on above: Performed By: #### C BC #### [facility] [address] [address] [address] Reece Garg NEUT # 8.1 103/ul Critically high 1.4-6.5 [facility] Comment on above: Performed By: #### C BC #### [facility] [address] [place] [address] Dr. Reece Garg Neutrophils/100 WBC (Bld) 72.6 % Normal 43.0-75.0 [facility] Comment on above: Performed By: #### C BC #### [facility] [address] [place] [address] Dr. Reece Garg Platelet mean volume (Bld) [Entitic vol] 10.2 fL Normal 9.5-13.5 [facility] Comment on above: Performed By: #### C BC #### [facility] [address] [place] [address] Dr. Reece Garg PLT 163 103/ul Normal 150-450 [facility] Comment on above: Performed By: #### C BC #### [facility] [address] [place] [address] Dr. Reece Garg RBC 4.00 106/ul Critically low 4.20-5.40 [facility] Comment on above: Performed By: #### C BC #### [facility] [address] [place] [address] Dr. Reece Garg WBC 11.1 103/ul Critically high 4.0-11.0 [facility] Comment on above: Performed By: #### C BC #### [facility] [address] [place] [address] Dr. Reece Garg BASO # 0.0 103/ul Normal 0.0-0.1 [facility] Comment on above: Performed By: #### C BC #### [facility] [address] [place] [address] Dr. Reece Garg Basophils/100 WBC (Bld) 0.3 % Normal 0.2-2.0 [facility] Comment on above: Performed By: #### C BC #### [facility] [address] [place] [address] Dr. Reece Garg EO # 0.1 103/ul Normal 0.0-0.7 [facility] Comment on above: Performed By: #### C BC #### [facility] [address] [place] [address] Dr. Reece Garg Eosinophils/100 WBC (Bld) 0.7 % Critically low 0.9-7.0 [facility] Comment on above: Performed By: #### C BC #### [facility] [address] [place] [address] Dr. Reece Garg Erythrocyte distribution width (RBC) [Ratio] 12.0 % Normal 11.0-15.0 [facility] Comment on above: Performed By: #### C BC #### [facility] [address] [place] [address] Dr. Reece Garg Hematocrit (Bld) [Volume fraction] 41.4 % Normal 36.0-48.0 [facility] Comment on above: Performed By: #### C BC #### [facility] [address] [place] [address] Dr. Reece Garg Hemoglobin (Bld) [Mass/Vol] 14.3 g/dL Normal 12.0-16.0 [facility] Comment on above: Performed By: #### C BC #### [facility] [address] [place] [address] Dr. Reece Garg IG # 0.05 10e3/ul Critically high 0.00-0.03 [facility] Comment on above: Performed By: #### C BC #### [facility] [address] [place] [address] Dr. Reece Garg IG % 0.3 % Normal 0.0-0.5 [facility] Comment on above: Performed By: #### C BC #### [facility] [address] [place] [address] Dr. Reece Garg LYMPH # 1.6 103/ul Normal 1.2-3.8 [facility] Comment on above: Performed By: #### C BC #### [facility] [address] [address] [address] Reece Garg Lymphocytes/100 WBC (Bld) 10.6 % Critically low 20.5-60.0 [facility] Comment on above: Performed By: #### C BC #### [facility] [address] [address] [address] Reece Garg MANUAL DIFF REQ NO Normal [facility] Comment on above: Performed By: #### C BC #### [facility] [address] [address] [address] Reece Garg MCH (RBC) [Entitic mass] 32.1 pg Normal 26.7-34.0 [facility] Comment on above: Performed By: #### C BC #### [facility] [address] [place] [address] Dr. Reece Garg MCHC (RBC) [Mass/Vol] 34.5 g/dL Normal 29.9-35.2 [facility] Comment on above: Performed By: #### C BC #### [facility] [address] [place] [address] Dr. Reece Garg MCV (RBC) [Entitic vol] 93.0 fL Normal 81.0-99.0 [facility] Comment on above: Performed By: #### C BC #### [facility] [address] [place] [address] Dr. Reece Garg MONO # 0.7 103/ul Normal 0.3-0.8 [facility] Comment on above: Performed By: #### C BC #### [facility] [address] [place] [address] Dr. Reece Garg Monocytes/100 WBC (Bld) 4.7 % Normal 1.7-12.0 [facility] Comment on above: Performed By: #### C BC #### [facility] [address] [place] [address] Dr. Reece Garg NEUT # 12.9 103/ul Critically high 1.4-6.5 [facility] Comment on above: Performed By: #### C BC #### [facility] [address] [place] [address] Dr. Reece Garg Neutrophils/100 WBC (Bld) 83.4 % Critically high 43.0-75.0 [facility] Comment on above: Performed By: #### C BC #### [facility] [address] [place] [address] Dr. Reece Garg Platelet mean volume (Bld) [Entitic vol] 10.4 fL Normal 9.5-13.5 [facility] Comment on above: Performed By: #### C BC #### [facility] [address] [place] [address] Dr. Reece Garg PLT 194 103/ul Normal 150-450 [facility] Comment on above: Performed By: #### C BC #### [facility] [address] [place] [address] Dr. Reece Garg RBC 4.45 106/ul Normal 4.20-5.40 [facility] Comment on above: Performed By: #### C BC #### [facility] [address] [place] [address] Dr. Reece Garg WBC 15.4 103/ul Critically high 4.0-11.0 [facility] Comment on above: Performed By: #### C BC #### [facility] [address] [place] [address] ABD/PELV W CONon 04-03-[address] ABD/PELV W CON CT ABD/PELV W [...] LAVON ELIZALDE Date: 2023-04-03 01:36 Normal [facility] ER URINE PROFILEon 3 Bilirubin Ql (U) Negative Normal NEGATIVE [facility] Comment on above: Performed By: #### P REGU, ERUR #### [facility] [address] [place] [address] Dr. Reece Garg Clarity (U) CLEAR Normal CLEAR [facility] Comment on above: Performed By: #### P REGU, ERUR #### [facility] [address] [place] [address] Dr. Reece Garg Color (U) LT. YELLOW Normal YELLOW [facility] Comment on above: Performed By: #### P REGU, ERUR #### [facility] [address] [place] [address] Dr. Reece Garg ERUAHD A micrscopic examination will be performed if indicated. Normal [facility] Comment on above: Performed By: #### P REGU, ERUR #### [facility] [address] [place] [address] Dr. Reece Garg Glucose Ql (U) Negative Normal NEGATIVE [facility] Comment on above: Performed By: #### P REGU, ERUR #### [facility] [address] [address] [address] Reece Garg Hemoglobin Ql (U) Negative Normal NEGATIVE [facility] Comment on above: Performed By: #### P REGU, ERUR #### [facility] [address] [place] [address] Dr. Reece Garg Ketones Ql (U) 15 mg/dl Abnormal NEGATIVE [facility] Comment on above: Performed By: #### P REGU, ERUR #### [facility] [address] [place] [address] Dr. Reece Garg LEUKOCYTES Negative Normal NEGATIVE [facility] Comment on above: Performed By: #### P REGU, ERUR #### [facility] [address] [place] [address] Dr. Reece Garg Nitrite Ql (U) Negative Normal NEGATIVE [facility] Comment on above: Performed By: #### P REGU, ERUR #### [facility] [address] [place] [address] Dr. Reece Garg pH (U) 5.5 [pH] Normal 5-9 [facility] Comment on above: Performed By: #### P REGU, ERUR #### [facility] [address] [place] [address] Dr. Reece Garg SPEC GRAVITY <=1.005 Abnormal 1.005-<=1.025 [facility] Comment on above: Performed By: #### P REGU, ERUR #### [facility] [address] [place] [address] Dr. Reece Garg UA PROTEIN Negative Normal NEGATIVE/ TRACE [facility] Comment on above: Performed By: #### P REGU, ERUR #### [facility] [address] [place] [address] Dr. Reece Garg UR MICRO IND NOT INDICATED Normal [facility] Comment on above: Performed By: #### P REGU, ERUR #### [facility] [address] [place] [address] Dr. Reece Garg Urobilinogen Qn (U) 0.2 {Dariel'U}/dL Normal 0.2 - 1.0 [facility] Comment on above: Performed By: #### P MARY, ERUR #### [facility] [address] [address] [address] Reece Garg LIPASEon 04-03-2023 Lipase [Catalytic activity/Vol] 62.0 U/L Critically low 73.0-393.0 [facility] Comment on above: Performed By: #### L IPA, ANDERSON ####[facility] [id number] [place] [address]Dr. Reece Garg MONOon 04-03-2023 Monocytes (Bld) [#/Vol] Negative Normal NEGATIVE [facility] Comment on above: Performed By: #### M JOSE DANIEL #### [facility] [address] [place] [address] Dr. Reece Garg URon 04-03-2023 , QUAL Negative Normal NEGATIVE [facility] Comment on above: Performed By: #### P MARY, ERUR #### [facility] [address] [place] [address] Dr. Reece Garg PROF 14(COMP METB)on 023 Albumin [Mass/Vol] 3.3 g/dL Critically low 3.4-5.0 [facility] Comment on above: Performed By: #### C MP #### [facility] [address] [place] [address] Dr. Reece Garg Albumin/Globulin [Mass ratio] 1.0 {ratio} Normal [facility] Comment on above: Performed By: #### C MP #### [facility] [address] [place] [address] Dr. Reece Garg ALP [Catalytic activity/Vol] 38 U/L Critically low 46-116 [facility] Comment on above: Performed By: #### C MP #### [facility] [address] [place] [address] Dr. Reece Garg ALT [Catalytic activity/Vol] 16 U/L Normal 14-59 [facility] Comment on above: Performed By: #### C MP #### [facility] [address] [address] [address] Reece Garg Anion gap [Moles/Vol] 10.7 mmol/L Normal [facility] Comment on above: Performed By: #### C MP #### [facility] [address] [address] [address] Reece Garg AST [Catalytic activity/Vol] 10 U/L Critically low 15-37 [facility] Comment on above: Performed By: #### C MP #### [facility] [address] [address] [address] Reece Garg Bilirubin [Mass/Vol] 1.0 mg/dL Normal 0.2-1.0 [facility] Comment on above: Performed By: #### C MP #### [facility] [address] [place] [address] Dr. Reece Garg Calcium [Mass/Vol] 8.2 mg/dL Critically low 8.5-10.1 Th [facility] Comment on above: Performed By: #### C MP #### [facility] [address] [place] [address] Dr. Reece Garg Chloride [Moles/Vol] 106 mmol/L Normal 98-107 [facility] Comment on above: Performed By: #### C MP #### [facility] [address] [place] [address] Dr. Reece Garg CO2 [Moles/Vol] 27.0 mmol/L Normal 21.0-32.0 [facility] Comment on above: Performed By: #### C MP #### [facility] [address] [place] [address] Dr. Reece Garg Creatinine [Mass/Vol] 0.77 mg/dL Normal 0.55-1.02 [facility] Comment on above: Performed By: #### C MP #### [facility] [address] [address] [address] Reece Garg EGFR-AF FINNISH >60 Normal >=60 [facility] Comment on above: Performed By: #### C MP #### [facility] [address] [place] [address] Dr. Reece Garg EGFR-NON AF FINNISH >60 Normal >=60 [facility] Comment on above: Performed By: #### C MP #### [facility] [address] [place] [address] Dr. Reece Garg Globulin (S) [Mass/Vol] 3.3 g/dL Normal [facility] Comment on above: Performed By: #### C MP #### [facility] [address] [address] [address] Reece Garg Glucose [Mass/Vol] 102 mg/dL Normal 74-106 [facility] Comment on above: Performed By: #### C MP #### [facility] [address] [place] [address] Dr. Reece Garg Potassium [Moles/Vol] 3.7 mmol/L Normal 3.5-5.1 [facility] Comment on above: Performed By: #### C MP #### [facility] [address] [place] [address] Dr. Reece Garg Protein [Mass/Vol] 6.6 g/dL Normal 6.4-8.2 [facility] Comment on above: Performed By: #### C MP #### [facility] [address] [place] [address] Dr. Reece Garg Sodium [Moles/Vol] 140 mmol/L Normal 136-145 [facility] Comment on above: Performed By: #### C MP #### [facility] [address] [address] [address] Reece Garg Urea nitrogen [Mass/Vol] 8.0 mg/dL Normal 7.0-18.0 [facility] Comment on above: Performed By: #### C MP #### [facility] [address] [address] [address] Reece Garg Urea nitrogen/Creatinin e [Mass ratio] 10.4 mg/mg Normal [facility] Comment on above: Performed By: #### C MP #### [facility] [address] [place] [address] Dr. Reece Garg PROTIMEon 04-03-2023 INR Coag (PPP) [Relative time] 1.06 {INR} Normal [facility] Comment on above: Performed By: #### P TT, PT #### [facility] [address] [address] [address] Reece Garg INR GUIDELINES SEE BELOW Normal [facility] Comment on above: Result Comment: JJ RED INR: 2.0 - 3.0 CONDITIONS NOT LISTED BELOW 2.5 - 3.5 FOR PROSTHETIC HEART VALVE REPLACEMENT 2.5 - 3.5 RECURRENT THROMBOSIS Performed By: #### P TT, PT #### [facility] [address] [address] [address] Reece Garg PT Coag (PPP) [Time] 11.2 s Normal 9.0-11.6 [facility] Comment on above: Performed By: #### P TT, PT #### [facility] [address] [place] [address] Dr. Reece Garg PTTon 04-03-2023 aPTT Coag (Bld) [Time] 28.1 s Normal 22.3-36.2 [facility] Comment on above: Performed By: #### P TT, PT #### [facility] [address] [address] [address] Reece Garg PAP ACOG PANEL 2: 32 to 67on 07-28-2022 . . Normal [facility] Comment on above: Result Comment: Perf ormed at: WB Performed By: #### [id number] ####[facility] [id number] [address]Dr. Reece Garg Age Gdln ACOG Testing 30-65 Normal [facility] Comment on above: Performed By: #### [id number] ####[facility] [id number] [place] [id number]. Reece Garg DIAGNOSIS: Comment Normal [facility] Comment on above: Result Comment: NEGA TIVE FOR INTRAEPITHELIAL LESION OR MALIGNANCY. Performed at: WB Performed By: #### [id number] ####[facility] [id number] [place] [id number]. Reece Garg HPV Aptima Negative Normal Negative [facility] Comment on above: Result Comment: This nucleic acid amplification test detects fourteen high-risk HPV types (16,18,31,33,35,39,45,51,52,56,58,59,66,68) without differentiation. Performed at: =G Performed By: #### [id number] ####[facility] [id number] [place] [address]Dr. Reece Garg Methodology: Comment Normal [facility] Comment on above: Result Comment: This liquid based ThinPrep(R) pap test was screened with the use of an image guided system. Performed at: WB Performed By: #### [id number] ####[facility] [address] [place], [place] [address]Dr. Reece Garg Note: Comment Normal [facility] Comment on above: Result Comment: The Pap smear is a screening test designed to aid in the detection of premalignant and malignant conditions of the uterine cervix. It is not a diagnostic procedure and should not be used as the sole means of detecting cervical cancer. Both false-positive and false-negative reports do occur. . Performed at: WB Performed By: #### [id number] ####[facility] [address] [place], [place] [address]Dr. Reece Garg Performed by: Comment Normal [facility] Comment on above: Result Comment: Alexandra Cortez, Mining Speculator (ASCP) Performed at: WB Performed By: #### [id number] ####[facility] [address] [place], [place] [address]Dr. Reece Garg Specimen adequacy: Comment Normal [facility] Comment on above: Result Comment: Sati sfactory for evaluation. No endocervical component is identified. Performed at: WB Performed By: #### [id number] ####[facility] [id number] [place], [place] [address]Dr. Reece Garg VAGINITIS/VAGINOSIS DNA PROB Erwin 07-24-2022 Mala species Negative Normal Negative [facility] Comment on above: Performed By: #### V AGINT #### [facility] [address] [address] [address] Reece Garg Gardnerella vaginalis Positive Abnormal Negative [facility] Comment on above: Performed By: #### V AGINT #### [facility] [address] [address] [address] Reece Garg Trichomonas vaginalis Negative Normal Negative [facility] Comment on above: Performed By: #### V AGINT #### [facility] [address] [address] [address] Reece Garg [place]enton 06-03-2020 Consent [id number]. 00CD:127 Normal [facility] Encounters Encounter Date Encounter Type Care Provider Facility Start: 01-20-2024 End: 01-20-2024 ambulatory ANDERSON FRIED Not Available Start: 01-07-2024 End: 01-07-2024 ambulatory Angelia Treviño Facility:[facility] Start: 12-14-2023 End: 12-14-2023 ambulatory ANGELIA TREVIÑO Not Available Start: 11-04-2023 End: 11-04-2023 ambulatory ANGELIA TREVIÑO Not Available Start: 04-03-2023 End: 04-03-[address] USMAN RODRIGEZ . Facility:[facility] Start: 07-26-2022 Encounter for gynecological examination (general) (routine) without abnormal findings DR EARLENE MCDONOUGH . [facility] Start: 07-22-2022 End: 07-22-[address] EARLENE MCDONOUGH . Facility:[facility] Start: 07-22-2022 End: 07-22-2022 Encounter for gynecological examination (general) (routine) without abnormal findings DR EARLENE MCDONOUGH . Facility:[facility] Payers Date Payer Category Payer Self-pay 1990 Unknown [id number] 2.16.84 [id number] 1990 Unknown [id number] 1992 Unknown [id number] 2.16.84 [id number] 1992 Unknown [id number] 2.16.84 [id number] 1992 Unknown [id number] 1957 Medicaid [id number] 1957 Unknown [id number] 1957 Unknown [id number] 1957 Unknown [id number] Summary Purpose Family History No Family History Records FoundNo Family History Records FoundNo Family History Records FoundNo Family History Records Found Advance Directives No Advanced Directives Records FoundNo Advanced Directives Records FoundNo Advanced Directives Records FoundNo Advanced Directives Records Found Additional Source Comments INFORMATION SOURCE (unrecogn ized section and content) DATE CREATED AUTHOR 06/08/2020 [facility] DATE CREATED AUTHOR AUTHOR'S ORGANIZ ATION 04/23/[address] [facility] DATE CREATED AUTHOR AUTHOR'S ORGANIZ ATION 01/16/2024 [facility] DATE CREATED AUTHOR AUTHOR'S ORGANIZ ATION 01/21/2024 [facility] FOR RECORDS PERTAINING TO PATIENTS WHO ARE [...] BE BASED ON THE PRIMARY CLINICAL RECORDS. [employer] provides no warranty or guarantee of the accuracy or completeness of information in this document.
[2024-01-23 10:10] LABS: Basophils Percent Auto 0.3 % (0.2-2.0); Eosinophils Absolute Auto 0.2 10^3/uL (0.0-0.7); Eosinophils Percent Auto 2.3 % (0.9-7.0); Hematocrit 42.6 % (36.0-48.0); Hemoglobin 14.3 g/dL (12.0-16.0); Immature Granulocytes Abs Auto 0.04 10^3/uL (0.00-0.03); Immature Granulocytes Pct Auto 0.5 % (0.0-0.5); Lymphocytes Absolute Auto 1.8 10^3/uL (1.2-3.8); Lymphocytes Percent Auto 20.8 % (20.5-60.0); Mean Corpuscular HGB Conc 33.6 g/dL (29.9-35.2); Mean Corpuscular Hemoglobin 32.1 pg (26.7-34.0); Mean Corpuscular Volume 95.7 fL (81.0-99.0); Monocytes Absolute Auto 0.5 10^3/uL (0.3-0.8); Monocytes Percent Auto 5.5 % (1.7-12.0); Neutrophils Absolute Auto 6.2 10^3/uL (1.4-6.5); Neutrophils Percent Auto 70.6 % (43.0-75.0); Platelet Count 153 10^3/uL (150-450); Red Blood Count 4.45 10^6/uL (4.20-5.40); Red Cell Distribution Width 11.6 % (11.0-15.0); White Blood Count 8.8 10^3/uL (4.0-11.0)
--- NOTE | 2024-01-23 10:12 | US_ITS ---
[address] [place] [id number] Patient Name: KIMBERLY MCMAHON MRN: [id number] date: 1990 Sex: F Assigned Patient Location: ED.MAIN Current Patient Location: ER Accession/Order Number: [id number] Exam Date: 01/23/2024 10:12 Report Date: 01/23/2024 11:08 At the request of: FLORA LAL Procedure: US venous doppler LE LT Right EXAM: US venous doppler LE LT HISTORY: Pain and swelling COMPARISON: None. TECHNIQUE: Evaluation of the deep veins of the left lower extremity was performed utilizing B-mode, color flow and spectral analysis. FINDINGS: Echogenic material is noted in iliac vein, common femoral vein, superficial femoral vein, popliteal vein and below knee branches except distal anterior tibial vein without compression and radius with little or no flow, representing deep venous thrombosis. Greater saphenous vein, superficial supraspinous vein and distal anterior tibial vein are patent. Additional findings: None. US/US venous doppler LE LT IMPRESSION: Extensive deep venous thrombus throughout the left iliac vein to the distal posterior tibial vein and peroneal vein as well as proximal anterior tibial vein. Electronically authenticated by: ALTA SALAZAR Date: 01/23/2024 11:08
[2024-01-23 10:19] LABS: Anion Gap 13.7; BUN Creatinine Ratio 14.1; Calcium 8.8 mg/dL (8.5-10.1); Carbon Dioxide 24.5 mmol/L (21.0-32.0); Chloride 105 mmol/L (98-107); Estimated GFR (African America >60 (>=60); Estimated GFR (Non-African Ame >60 (>=60); Glucose 83 mg/dL (74-106); Potassium 4.2 mmol/L (3.5-5.1); Sodium 139 mmol/L (136-145)
[2024-01-23 10:30] LABS: Partial Thromboplastin Time 27.2 sec (22.3-36.2); Prothrombin Time 9.8 sec (9.0-11.6)
[2024-01-23 10:31] LABS: INR <0.93
[2024-01-23] MEDS: HEPARIN SODIUM (PORCINE) 5,000 UNIT/ML VIAL 4600 UNIT IV (11:01)
[2024-01-23] MEDS: HEPARIN SODIUM,PORCINE/D5W 25,000 UNIT/500 ML IV.SOLN 20.7379999999999995 UNIT IV (11:02)
[2024-01-23 11:10] VITALS: BP 112/68; PULSE 95; RESP 20; TEMP 36.9; O2SAT 98
[2024-01-23] MEDS: MORPHINE SULFATE 4 MG/ML VIAL 2 MG IV (12:35)
== END 2024-01-23 13:15 | disposition short-term general hospital (02) ==
PROVIDERS: Emergency Provider Emergency Medicine; PCP Family Medicine
DX: I82.422 Acute embolism and thrombosis of left iliac vein (principal); I82.442 Acute embolism and thrombosis of left tibial vein; I82.452 Acute embolism and thrombosis of left peroneal vein; Z79.899 Other long term (current) drug therapy; Z86.16 Personal history of COVID-19; Z90.710 Acquired absence of both cervix and uterus; Z98.890 Other specified postprocedural states; Z90.49 Acquired absence of other specified parts of digestive tract; Z87.891 Personal history of nicotine dependence
CPT/HCPCS: 36415; 80048; 85025; 85610; 85730; 93971; 96374; 96375; 99285

== ENCOUNTER 2024-02-15 07:39 | Outpatient (RCR) | payer BC, SELFPAY | END 2024-03-14 23:59 | disposition home or self-care (01) | LOC: INF 07:39 | PROVIDERS: PCP Family Medicine; Visit Provider Internal Medicine Hematology & Oncology | DX: I82.402 Acute embolism and thrombosis of unspecified deep veins of left lower extremity (principal); I87.1 Compression of vein | CPT/HCPCS: G0463 ==

== ENCOUNTER 2024-02-18 09:42 | Outpatient (OUT) | payer BC, SELFPAY ==
--- OUTSIDE RECORDS SUMMARY | 2024-02-18 10:05 | XMS_ITS | CCD ---
Author Organization [facility] Care Team Providers Care Parts Cleaner Name Role Phone RAIN ., DR MARY Attending Unavailable RAIN ., DR MARY Admitting Unavailable RAIN ., DR MARY Primary Care Unavailable RAIN ., DR MARY Consulting Unavailable SARAI WILKINS Consulting Unavailable LAVON ELIZALDE Consulting Unavailable SISTER, CUCA Consulting Unavailable ARTURO II, LUL Consulting Unavailable VERNELL ., DL Consulting Unavailable CEASAR ., DR HENAO Admitting Unavailabl e KARASIFilipe ., DR HENAO Consulting Unavailabl e KARASIK ., DR HENAO Attending Unavailabl e RAIN ., DR MARY Primary Care Unavailable Angelia Treviño Attending Unavailable Angelia Treviño Admitting Unavailable JANI BRIDGES Admitting Unavailable JANI BRIDGES Attending Unavailable FLORA LAL Referring Unavailable DL BUCK Referring Unavailable STEPHEN STOKES Referring Unavailable PAUL CHACON Attending Unavailable JANI BRIDGES Attending Unavailable JANI BRIDGES Referring Unavailable Usman Alvarez MD Primary Care Provider [phone] JANI BRIDGES Attending Unavailable USMAN ALVAREZ Primary Care Unavailable ANGELIA TREVIÑO Attending Unavailable ANDERSON FRIED Attending Unavailable ANGELIA TREVIÑO Attending Unavailable THERESA DAVIS Attending Unavailable ANGELIA TREVIÑO Attending Unavailable Medications Current Medications Medication Drug Class(es) Dates Sig (Normalized) Sig (Original) acetaminophen 500 mg oral tablet (1 source) Start: 01-25-2024 take 2 tablets by mouth every six hours acetaminophen (TYLENOL EXTRA STRENGTH) 500 mg tablet Take 2 tablets (1,000 mg total) by mouth every 6 (six) hours. 30 tablet 0 01/25/2024 Active apixaban 5 mg oral tablet (2 sources) Factor Xa Inhibitor Start: 02-11-2024 take 1 tablet by mouth in the morning, then take 1 tablet by mouth at bedtime apixaban (ELIQUIS) 5 mg tablet Take 1 tablet (5 mg total) by mouth in the morning and 1 tablet (5 mg total) before bedtime. 60 tablet 2 02/11/2024 Active Start: 01-25-2024 take 2 tablets by mo uth twice daily, then take 1 tablet by mouth twice daily apixaban (ELIQUIS DVT-PE TREAT 30D START) 5 mg (74 tabs) tablets,dose pack tablet Take 2 tablets by mouth twice daily for 7 days, then take 1 tablet twice daily 74 tablet 0 01/25/2024 Active aspirin 81 mg chewable tablet (2 sources) Platelet Aggregation Inhibitor, Nonsteroidal Anti-inflammatory Drug Start: 02-11-2024 aspirin 81 mg chewable tablet Chew 1 tablet (81 mg total) and swallow in the morning. 30 tablet 90 02/11/2024 Active Start: 01-26-2024 End: 02-25-2024 take 1 tablet by mouth in the morning aspirin 81 mg Take 1 tablet (81 mg total) by mouth in the morning for 30 days. 30 tablet 0 01/26/2024 02/25/2024 Active atorvastatin 40 mg oral tablet (1 source) HMG-CoA Reductase Inhibitor Start: 01-25-2024 End: 02-24-2024 take 1 tablet by mouth once daily atorvastatin (LIPITOR) 40 mg tablet Take 1 tablet (40 mg total) by mouth nightly for 30 days. 30 tablet 0 01/25/2024 02/24/2024 Active Ethinyl Estradiol / Levonorgestrel (1 source) Progestin, Estrogen, Progestin-containi ng Intrauterine Device take 1 tablet by mouth once in the morning levonorgestreL-et hinyl estrad (NORDETTE) 0.15-0.03 mg per tablet Take 1 tablet by mouth in the morning. 0 Active lactobacillus acidophilus [id number] unt / pectin 100 mg oral tablet (1 source) take 1 tablet by mouth once daily at breakfast acidophilus-pecti n, citrus 25 million cell -100 mg tablet Take 1 tablet by mouth daily with breakfast. 0 Active oxyCODONE hydrochloride 5 mg oral tablet (1 source) Opioid Agonist Start: 01-25-2024 take 1 tablet by mouth every six hours as needed for pain oxyCODONE (ROXICODONE) 5 mg immediate release tablet Indications: Acute deep vein thrombosis (DVT) of iliac vein of left lower extremity (CMS-HCC) Take 1 tablet (5 mg total) by mouth every 6 (six) hours as needed for pain for up to 10 doses. Max Daily Amount: 20 mg 10 tablet 0 01/25/2024 Active Problems Active Problems Problem Classification Problem Date Documented Da te Episodic/Chronic Abdominal pain (3 sources) Unspecified abdominal pain; Translations: [UNSPECIFIED ABDOMINAL PAIN] Onset: 04-03-2023 Episodic Anxiety disorders (1 source) Anxiety disorder, unspecified; Translations: [ANXIETY DISORDER UNSPECIFIED] Onset: 04-08-2023 Chronic Appendicitis and other appendiceal conditions (1 source) Unspecified acute appendicitis; Translations: [UNSPECIFIED ACUTE APPENDICITIS] Onset: 04-08-2023 Episodic Other diseases of veins and lymphatics (2 sources) Iliac vein compression syndrome; Translations: [Compression of vein] Onset: 02-11-2024 02-11-2024 Episodic Other diseases of veins and lymphatics (1 source) Compression of vein; Translations: [Compression of vein] Onset: 02-11-2024 Episodic Phlebitis; thrombophlebitis and thromboembolism (5 sources) Acute embolism and thrombosis of left iliac vein; Translations: [Acute embolism and thrombosis of unspecified deep veins of unspecified lower extremity] Onset: 01-23-2024 02-11-2024 Episodic Residual codes; unclassified (1 source) Acquired absence of both cervix and uterus; Translations: [ACQUIRED ABSENCE BOTH CERVIX AND UTERUS] Onset: 04-08-2023 Episodic Residual codes; unclassified (1 source) Pain, unspecified; Translations: [Pain, unspecified] Onset: 01-24-2024 Episodic Substance-related disorders (1 source) Nicotine dependence, cigarettes, uncomplicated; Translations: [NICOTINE DEPEND CIGARETTES UNCOMP] Onset: 04-08-2023 Chronic Unclassified (1 source) Extensive DVT with phlegmasia Onset: 01-23-2024 Past or Other Problems Problem Classification Problem Date Documented Date Episodic/Chronic Immunizations and screening for infectious disease (1 source) Encounter for screening for human papillomavirus (HPV); Translations: [ENC SCREENING HUMAN PAPILLOMAVIRUS] Onset: 07-26-2022 Episodic Mood disorders (1 source) Mood disorders Onset: 01-23-2024 01-23-2024 Results Test Name Value Interpretation Reference Range Facility BASIC METABOLIC PANLon 01-24 Anion gap [Moles/Vol] 7 mmol/L Normal 5-15 [facility] Comment on above: Performed By: #### C BCA, PINR, 90602-2, BMP #### [facility] ([id number]) [address] [place] [address] Calcium [Mass/Vol] 8.7 mg/dL Normal 8.5-10.5 [facility] Comment on above: Performed By: #### C BCA, PINR, 45292-3, BMP #### [facility] ([id number]) [address], [address] [place] [address] Chloride [Moles/Vol] 106 mmol/L Normal 98-109 [facility] Comment on above: Performed By: #### C BCA, PINR, 47959-3, BMP #### [facility] ([id number]) [address], [address] [place] [address] CO2 [Moles/Vol] 23 mmol/L Normal 22-32 [facility] Comment on above: Performed By: #### C BCA, PINR, 06349-3, BMP #### [facility] ([id number]) [address], [address] [place] [address] Creatinine [Mass/Vol] 0.57 mg/dL Normal 0.40-1.00 [facility] Comment on above: Result Comment: METH OD TRACEABLE TO IDMS STANDARD Performed By: #### C BCA, PINR, 38859-9, BMP #### [facility] ([id number]) [address], [address] [place] [address] eGFR (CKD-EPI) NON-RACE DEPENDENT >90 Normal >59 [facility] Comment on above: Result Comment: Reported eGFR is based on the CKD-EPI 2020 equation that does not use a race coefficient. Performed By: #### C BRENNON, PINR, 19658-7, BMP #### [facility] ([id number]) [address], [address] [place] [address] Glucose [Mass/Vol] 139 mg/dL High 65-99 [facility] Comment on above: Performed By: #### C BRENNON, PINR, 01503-1, BMP #### [facility] ([id number]) [address], [address] [place] [address] Potassium [Moles/Vol] 4.3 mmol/L Normal 3.5-5.0 [facility] Comment on above: Performed By: #### C BRENNON, PINR, 92722-6, BMP #### [facility] ([id number]) [address], [address] [place] [address] Sodium [Moles/Vol] 136 mmol/L Normal 134-146 [facility] Comment on above: Performed By: #### C BRENNON, PINR, 68086-9, BMP #### [facility] ([id number]) [address], [address] [place] [address] Urea nitrogen [Mass/Vol] 6 mg/dL Normal 5-23 [facility] Comment on above: Performed By: #### C BRENNON, PINR, 73348-0, BMP #### [facility] ([id number]) [address], [address] [place] [address] CBC AND AUTO DIFFon 1220 24 ABSOLUTE BASOPHIL 0.0 X10E9/L Normal 0.0-0.2 [facility] Comment on above: Performed By: #### C BCA, PINR, 03577-3, BMP #### [facility] ([id number]) [address] [address] [place] [address] ABSOLUTE NEUTROPHIL 2.9 X10E9/L Normal 1.5-6.6 [facility] Comment on above: Performed By: #### C BRENNON, PINR, 15427-9, BMP #### [facility] ([id number]) [address], [address] [place] [address] Basophils/100 WBC (Bld) 0.1 % Normal [facility] Comment on above: Performed By: #### C BCA, PINR, 06666-9, BMP #### [facility] ([id number]) [address], [address] [place] [address] Eosinophils (Bld) [#/Vol] 0.0 10*3/uL Normal 0.0-0.4 [facility] Comment on above: Performed By: #### C BCA, PINR, 90348-2, BMP #### [facility] ([id number]) [address] [place] [address] Eosinophils/100 WBC (Bld) 0.0 % Normal [facility] Comment on above: Performed By: #### C BRENNON, PINR, 19568-9, BMP #### [facility] ([id number]) [address], [address] [place] [address] Erythrocyte distribution width (RBC) [Ratio] 11.8 % Normal 11.5-15.0 [facility] Comment on above: Performed By: #### C BRENNON, PINR, 70196-3, BMP #### [facility] ([id number]) [address], [address] [place] [address] Hematocrit (Bld) [Volume fraction] 35.5 % Normal 35-47 [facility] Comment on above: Performed By: #### C BRENNON, PINR, 36337-1, BMP #### [facility] ([id number]) [address], [address] [place] [address] Hemoglobin (Bld) [Mass/Vol] 12.3 g/dL Normal 11.7-15.5 [facility] Comment on above: Performed By: #### C BRENNON, PINR, 17784-0, BMP #### [facility] ([id number]) [address], [address] [place] [address] Lymphocytes (Bld) [#/Vol] 0.4 10*3/uL Low 1.0-3.5 [facility] Comment on above: Performed By: #### C BRENNON, PINR, 92799-4, BMP #### [facility] ([id number]) [address] [place] [address] Lymphocytes/100 WBC (Bld) 13.1 % Normal [facility] Comment on above: Performed By: #### C BRENNON, PINR, 18382-1, BMP #### [facility] ([id number]) [address] [place] [address] MCH (RBC) [Entitic mass] 32.3 pg Normal 27-34 [facility] Comment on above: Performed By: #### C BRENNON, PINR, 97008-2, BMP #### [facility] ([id number]) [address], [address] [place] [address] MCHC (RBC) [Mass/Vol] 34.6 g/dL Normal 32-36 [facility] Comment on above: Performed By: #### C BRENNON PINR, 79677-7, BMP #### [facility] ([id number]) [address], [address] [place] [address] MCV (RBC) [Entitic vol] 94 fL Normal 80-100 [facility] Comment on above: Performed By: #### C BRENNON, PINR, 35329-8, BMP #### [facility] ([id number]) [address], [address] [place] [address] Monocytes (Bld) [#/Vol] 0.1 10*3/uL Normal 0-0.9 [facility] Comment on above: Performed By: #### C BRENNON, PINR, 42322-7, BMP #### [facility] ([id number]) [address], [address] [place] [address] Monocytes/100 WBC (Bld) 2.4 % Normal [facility] Comment on above: Performed By: #### C BRENNON, PINR, 85148-8, BMP #### [facility] ([id number]) [address], [address] [place] [address] Neutrophils/100 WBC (Bld) 84.4 % Normal [facility] Comment on above: Performed By: #### Anastasiya WILLETT, PINR, 66652-4, BMP #### [facility] ([id number]) [address], [address] [place] [address] Platelet mean volume (Bld) [Entitic vol] 9.1 fL Normal 7-12 [facility] Comment on above: Performed By: #### Anastasiya WILLETT, PINR, 44438-4, BMP #### [facility] ([id number]) [address] [place] [address] Platelets (Bld) [#/Vol] 142 10*3/uL Low 150-450 [facility] Comment on above: Performed By: #### Anastasiya WILLETT, PINR, 34113-0, BMP #### [facility] ([id number]) [address] [place] [address] RBC COUNT 3.79 X10E12/L Low 3.80-5.20 [facility] Comment on above: Performed By: #### Anastasiya WILLETT, PINR, 16889-2, BMP #### [facility] ([id number]) [address] [place] [address] WBC (Bld) [#/Vol] 3.4 10*3/uL Low 4.0-11.0 [facility] Comment on above: Performed By: #### C SADAF WILLETT, 28592-3, BMP #### [facility] ([id number]) [address], [address] [place] [address] Heparin unfractionated Chrom ogenic method Qn (PPP)on 01-25-2024 ANTI XA UFH 0.68 IU/mL Normal 0.30-0.70 [facility] Comment on above: Result Comment: Opti mal time for testing is 6 hrs post dosage This test is specific for monitoring patients on UFH, and is not recommended for use with other Anti-Xa medications. Performed By: #### C SADAF WILLETT, 50016-7, BMP #### [facility] ([id number]) [address], [address] [place] [address] ANTI CARDIOLIPIN AB IGG IGA IGMon 01-24-2024 MELBA IgA <2.0 Normal 0-19.9 [facility] Comment on above: Performed By: #### A Doreen HEATON #### [facility] ([id number]) [address], [address] [place] [address] MELBA IgG <1.6 Normal 0-19.9 [facility] Comment on above: Performed By: #### A Chucky HEATONG #### [facility] ([id number]) [address], [address] [place] [address] MELBA IgM <1.5 Normal 0-19.9 [facility] Comment on above: Performed By: #### Casie CA B2G #### [facility] ([id number]) [address], [address] [place] [address] BASIC METABOLIC PANLon 01-23 Anion gap [Moles/Vol] 8 mmol/L Normal 5-15 [facility] Comment on above: Performed By: #### 3 274-8, CBCA, BMP #### [facility] ([id number]) [address], [address] [place] [address] Calcium [Mass/Vol] 8.0 mg/dL Low 8.5-10.5 [facility] Comment on above: Performed By: #### 3 274-8, CBCA, BMP #### [facility] ([id number]) [address], [address] [place] [address] Chloride [Moles/Vol] 106 mmol/L Normal 98-109 [facility] Comment on above: Performed By: #### 3 274-8, CBCA, BMP #### [facility] ([id number]) [address], [facility] [address] [place] [address] CO2 [Moles/Vol] 22 mmol/L Normal 22-32 [facility] Comment on above: Performed By: #### 3 274-8, CBCA, BMP #### [facility] ([id number]) [address], [address] [place] [address] Creatinine [Mass/Vol] 0.53 mg/dL Normal 0.40-1.00 [facility] Comment on above: Result Comment: METH OD TRACEABLE TO IDMS STANDARD Performed By: #### 3 274-8, CBCA, BMP #### [facility] ([id number]) [address], [address] [place] [address] eGFR (CKD-EPI) NON-RACE DEPENDENT >90 Normal >59 [facility] Comment on above: Result Comment: Reported eGFR is based on the CKD-EPI 1 equation that does not use a race coefficient. Performed By: #### 3 274-8, CBCA, BMP #### [facility] ([id number]) [address], [address] [place] [address] Glucose [Mass/Vol] 76 mg/dL Normal 65-99 [facility] Comment on above: Performed By: #### 3 274-8, CBCA, BMP #### [facility] ([id number]) [address], [address] [place] [address] Potassium [Moles/Vol] 3.8 mmol/L Normal 3.5-5.0 [facility] Comment on above: Performed By: #### 3 274-8, CBCA, BMP #### [facility] ([id number]) [address], [address] [place] [address] Sodium [Moles/Vol] 136 mmol/L Normal 134-146 [facility] Comment on above: Performed By: #### 3 274-8, CBCA, BMP #### [facility] ([id number]) [address], [facility] [address] [place] [address] Urea nitrogen [Mass/Vol] 10 mg/dL Normal 5-23 [facility] Comment on above: Performed By: #### 3 274-8, CBCA, BMP #### [facility] ([id number]) [address], [address] [place] [address] BETA-2 GP1 AB PANELon 2023 BETA-2 GP1 IgA <2.0 Normal 0.0-19.9 [facility] Comment on above: Performed By: #### C BCA, PINR, 95130-3, BMP #### [facility] ([id number]) [address], [address] [place] [address] BETA-2 GP1 IgG <1.4 Normal 0.0-19.9 [facility] Comment on above: Performed By: #### C BCA, PINR, 92568-0, BMP #### [facility] ([id number]) [address], [address] [place] [address] BETA-2 GP1 IgM <1.5 Normal 0.0-19.9 [facility] Comment on above: Performed By: #### C BCA, PINR, 20300-1, BMP #### [facility] ([id number]) [address], [address] [place] [address] CBC AND AUTO DIFFon 01-24-20 24 ABSOLUTE BASOPHIL 0.0 X10E9/L Normal 0.0-0.2 [facility] Comment on above: Performed By: #### 3 274-8, CBCA, BMP #### [facility] ([id number]) [address], [address] [place] [address] ABSOLUTE NEUTROPHIL 3.7 X10E9/L Normal 1.5-6.6 [facility] Comment on above: Performed By: #### 3 274-8, CBCA, BMP #### [facility] ([id number]) [address], [address] [place] [address] Basophils/100 WBC (Bld) 0.4 % Normal [facility] Comment on above: Performed By: #### 3 274-8, CBCA, BMP #### [facility] ([id number]) [address], [address] [place] [address] Eosinophils (Bld) [#/Vol] 0.2 10*3/uL Normal 0.0-0.4 [facility] Comment on above: Performed By: #### 3 274-8, CBCA, BMP #### [facility] ([id number]) [address] [place] [address] Eosinophils/100 WBC (Bld) 2.9 % Normal [facility] Comment on above: Performed By: #### 3 274-8, CBCA, BMP #### [facility] ([id number]) [address], [address] [place] [address] Erythrocyte distribution width (RBC) [Ratio] 12.3 % Normal 11.5-15.0 [facility] Comment on above: Performed By: #### 3 274-8, CBCA, BMP #### [facility] ([id number]) [address], [address] [place] [address] Hematocrit (Bld) [Volume fraction] 36.4 % Normal 35-47 [facility] Comment on above: Performed By: #### 3 274-8, CBCA, BMP #### [facility] ([id number]) [address] [place] [address] Hemoglobin (Bld) [Mass/Vol] 12.4 g/dL Normal 11.7-15.5 [facility] Comment on above: Performed By: #### 3 274-8, CBCA, BMP #### [facility] ([id number]) [address], [facility] [address] [place] [address] Lymphocytes (Bld) [#/Vol] 1.9 10*3/uL Normal 1.0-3.5 [facility] Comment on above: Performed By: #### 3 274-8, CBCA, BMP #### [facility] ([id number]) [address], [facility] [address] [place] [address] Lymphocytes/100 WBC (Bld) 29.7 % Normal [facility] Comment on above: Performed By: #### 3 274-8, CBCA, BMP #### [facility] ([id number]) [address], [address] [place] [address] MCH (RBC) [Entitic mass] 32.5 pg Normal 27-34 [facility] Comment on above: Performed By: #### 3 274-8, CBCA, BMP #### [facility] ([id number]) [address] [place] [address] MCHC (RBC) [Mass/Vol] 34.2 g/dL Normal 32-36 [facility] Comment on above: Performed By: #### 3 274-8, CBCA, BMP #### [facility] ([id number]) [address], [address] [place] [address] MCV (RBC) [Entitic vol] 95 fL Normal 80-100 [facility] Comment on above: Performed By: #### 3 274-8, CBCA, BMP #### [facility] ([id number]) [address], [address] [place] [address] Monocytes (Bld) [#/Vol] 0.5 10*3/uL Normal 0-0.9 [facility] Comment on above: Performed By: #### 3 274-8, CBCA, BMP #### [facility] ([id number]) [address], [address] [place] [address] Monocytes/100 WBC (Bld) 8.2 % Normal [facility] Comment on above: Performed By: #### 3 274-8, CBCA, BMP #### [facility] ([id number]) [address], [address] [place] [address] Neutrophils/100 WBC (Bld) 58.8 % Normal [facility] Comment on above: Performed By: #### 3 274-8, CBCA, BMP #### [facility] ([id number]) [address], [address] [place] [address] Platelet mean volume (Bld) [Entitic vol] 8.7 fL Normal 7-12 [facility] Comment on above: Performed By: #### 3 274-8, CBCA, BMP #### [facility] ([id number]) [address] [place] [address] Platelets (Bld) [#/Vol] 128 10*3/uL Low 150-450 [facility] Comment on above: Performed By: #### 3 274-8, CBCA, BMP #### [facility] ([id number]) [address], [facility] [address] [place] [address] RBC COUNT 3.83 X10E12/L Normal 3.80-5.20 [facility] Comment on above: Performed By: #### 3 274-8, CBCA, BMP #### [facility] ([id number]) [address], [address] [place] [address] WBC (Bld) [#/Vol] 6.4 10*3/uL Normal 4.0-11.0 [facility] Comment on above: Performed By: #### 3 274-8, CBCA, BMP #### [facility] ([id number]) [address], [address] [address] Heparin unfractionated Chrom ogenic method Qn (PPP)on 01-24-2024 ANTI XA UFH 0.47 IU/mL Normal 0.30-0.70 [facility] Comment on above: Result Comment: Opti mal time for testing is 6 hrs post dosage This test is specific for monitoring patients on UFH, and is not recommended for use with other Anti-Xa medications. Performed By: #### 3 274-8, CBCA, BMP #### [facility] ([id number]) [address], [address] [address] dRVVT/dRVVT.excess phospholi pid Coag (PPP) [Ratio]on 01-24-2024 DILUTE VERONIKA'S VIPER VENOM Negative Normal [facility] Comment on above: Performed By: #### C BCA, PINR, 26191-2, BMP #### [facility] ([id number]) [address] [address] BASIC METABOLIC PANLon 01-22 Anion gap [Moles/Vol] 11 mmol/L Normal 5-15 [facility] Comment on above: Performed By: #### C BCA, PINR, 14146-2, BMP #### [facility] ([id number]) [address] [place] [address] Calcium [Mass/Vol] 8.3 mg/dL Low 8.5-10.5 [facility] Comment on above: Performed By: #### C BCA, PINR, 30635-9, BMP #### [facility] ([id number]) [address] [place] [address] Chloride [Moles/Vol] 106 mmol/L Normal 98-109 [facility] Comment on above: Performed By: #### C BCA, PINR, 20527-6, BMP #### [facility] ([id number]) [address], [address] [place] [address] CO2 [Moles/Vol] 21 mmol/L Low 22-32 [facility] Comment on above: Performed By: #### C BCA, PINR, 54140-2, BMP #### [facility] ([id number]) [address], [facility] [address] [place] [address] Creatinine [Mass/Vol] 0.65 mg/dL Normal 0.40-1.00 [facility] Comment on above: Result Comment: METH OD TRACEABLE TO IDMS STANDARD Performed By: #### C BRENNON, PINR, 74021-3, BMP #### [facility] ([id number]) [address], [address] [place] [address] eGFR (CKD-EPI) NON-RACE DEPENDENT >90 Normal >59 [facility] Comment on above: Result Comment: Reported eGFR is based on the CKD-EPI 2020 equation that does not use a race coefficient. Performed By: #### C BCA, PINR, 70557-8, BMP #### [facility] ([id number]) [address], [address] [place] [address] Glucose [Mass/Vol] 78 mg/dL Normal 65-99 [facility] Comment on above: Performed By: #### C BCA, PINR, 68152-9, BMP #### [facility] ([id number]) [address], [address] [place] [address] Potassium [Moles/Vol] 3.9 mmol/L Normal 3.5-5.0 [facility] Comment on above: Performed By: #### C BCA, PINR, 42956-0, BMP #### [facility] ([id number]) [address], [address] [place] [address] Sodium [Moles/Vol] 138 mmol/L Normal 134-146 [facility] Comment on above: Performed By: #### C BCA, PINR, 79070-7, BMP #### [facility] ([id number]) [address], [address] [place] [address] Urea nitrogen [Mass/Vol] 11 mg/dL Normal 5-23 [facility] Comment on above: Performed By: #### C BCA, PINR, 47736-6, BMP #### [facility] ([id number]) [address], [address] [place] [address] CBC AND AUTO DIFFon 01-22-20 24 ABSOLUTE BASOPHIL 0.0 X10E9/L Normal 0.0-0.2 [facility] Comment on above: Performed By: #### C BCA, PINR, 56975-7, BMP #### [facility] ([id number]) [address], [address] [place] [address] ABSOLUTE NEUTROPHIL 6.6 X10E9/L Normal 1.5-6.6 [facility] Comment on above: Performed By: #### C BCA, PINR, 29548-7, BMP #### [facility] ([id number]) [address], [address] [place] [address] Basophils/100 WBC (Bld) 0.3 % Normal [facility] Comment on above: Performed By: #### C BCA, PINR, 69429-4, BMP #### [facility] ([id number]) [address] [address] [place] [address] Eosinophils (Bld) [#/Vol] 0.1 10*3/uL Normal 0.0-0.4 [facility] Comment on above: Performed By: #### C BCA, PINR, 40558-1, BMP #### [facility] ([id number]) [address], [address] [place] [address] Eosinophils/100 WBC (Bld) 0.8 % Normal [facility] Comment on above: Performed By: #### C BRENNON PINSlim, 34501-3, BMP #### [facility] ([id number]) [address] [place] [address] Erythrocyte distribution width (RBC) [Ratio] 12.4 % Normal 11.5-15.0 [facility] Comment on above: Performed By: #### C SADAF WILLETT, 71785-5, BMP #### [facility] ([id number]) [address], [facility] [address] [place] [address] Hematocrit (Bld) [Volume fraction] 39.4 % Normal 35-47 [facility] Comment on above: Performed By: #### C BRENNON PINR, 24923-4, BMP #### [facility] ([id number]) [address], [facility] [address] [place] [address] Hemoglobin (Bld) [Mass/Vol] 13.8 g/dL Normal 11.7-15.5 [facility] Comment on above: Performed By: #### C BRENNON PINR, 59498-0, BMP #### [facility] ([id number]) [address] [address] [place] [address] Lymphocytes (Bld) [#/Vol] 1.9 10*3/uL Normal 1.0-3.5 [facility] Comment on above: Performed By: #### C BRENNON PINR, 13835-6, BMP #### [facility] ([id number]) [address], [address] [place] [address] Lymphocytes/100 WBC (Bld) 20.6 % Normal [facility] Comment on above: Performed By: #### C BRENNON PINR, 37041-2, BMP #### [facility] ([id number]) [address], [address] [place] [address] MCH (RBC) [Entitic mass] 32.7 pg Normal 27-34 [facility] Comment on above: Performed By: #### C BCA, PINR, 83671-0, BMP #### [facility] ([id number]) [address], [address] [place] [address] MCHC (RBC) [Mass/Vol] 34.9 g/dL Normal 32-36 [facility] Comment on above: Performed By: #### C BCA, PINR, 18847-8, BMP #### [facility] ([id number]) [address], [address] [place] [address] MCV (RBC) [Entitic vol] 94 fL Normal 80-100 [facility] Comment on above: Performed By: #### C BCA, PINR, 71459-0, BMP #### [facility] ([id number]) [address], [address] [place] [address] Monocytes (Bld) [#/Vol] 0.6 10*3/uL Normal 0-0.9 [facility] Comment on above: Performed By: #### C BCA, PINR, 03563-3, BMP #### [facility] ([id number]) [address], [address] [place] [address] Monocytes/100 WBC (Bld) 6.0 % Normal [facility] Comment on above: Performed By: #### C BCA, PINR, 55124-9, BMP #### [facility] ([id number]) [address] [place] [address] Neutrophils/100 WBC (Bld) 72.3 % Normal [facility] Comment on above: Performed By: #### C BCA, PINR, 72345-2, BMP #### [facility] ([id number]) [address] [place] [address] Platelet mean volume (Bld) [Entitic vol] 8.4 fL Normal 7-12 [facility] Comment on above: Performed By: #### C BCA, PINR, 57517-5, BMP #### [facility] ([id number]) [address], [facility] [address] [place] [address] Platelets (Bld) [#/Vol] 156 10*3/uL Normal 150-450 [facility] Comment on above: Performed By: #### C BCA, PINR, 40555-9, BMP #### [facility] ([id number]) [address] [address] RBC COUNT 4.21 X10E12/L Normal 3.80-5.20 [facility] Comment on above: Performed By: #### Anastasiya BCA, PINR, 83123-3, BMP #### [facility] ([id number]) [address], [address] [address] WBC (Bld) [#/Vol] 9.1 10*3/uL Normal 4.0-11.0 [facility] Comment on above: Performed By: #### Anastasiya BCA, PINR, 49731-5, BMP #### [facility] ([id number]) [address], [address] [address] [address] CTV ABD AND PELVISon 01-13 CT CTV ABD AND PELVIS CT CTV ABD AND PELVIS Clinical History and Information: Left iliac vein DVT Findings: Contrast: 100 mils of Omni [address] venogram was performed of the abdomen and pelvis. Axial images with coronal and sagittal images were generated. 3-D maximum intensity projection coronal and sagittal reformatted images generated and reviewed. Automated exposure control was utilized. Comparison:None Very large thrombus within the left iliac vein is best seen on the coronal reformatted images. Thrombus likely tooth extends to the IVC and right iliac confluence. No definite thrombus seen within the IVC. Normal contrast enhancement of the right iliac vein common femoral vein, superficial and deep femoral veins in the upper thigh region. Normal contrast enhancement of the right, middle, left hepatic veins, right, left portal vein, main portal vein, superior mesenteric vein and SMV. There is no mesenteric edema. The liver, spleen, pancreas, kidneys and adrenal glands unremarkable. Gallbladder is normal in size. No obstructive uropathy. Ureteral jets visualized. Bowel gas pattern nonobstructive with large amount retained fecal content within the right colon and cecum region. Lumbar spine satisfactory alignment. Impression: * Massive left iliac vein thrombus. This extends superiorly to the level of the IVC right iliac confluence. All CT scans at this facility use dose modulation, iterative reconstruction, and/or weight based dosing when appropriate to reduce radiation dose to as low as reasonably achievable. Finalized by Lul Hill MD on 01/23/2024 4:56 PM Normal [facility] Heparin unfractionated Chrom ogenic method Qn (PPP)on 01-23-2024 ANTI XA UFH 0.44 IU/mL Normal 0.30-0.70 [facility] Comment on above: Result Comment: Opti mal time for testing is 6 hrs post dosage This test is specific for monitoring patients on UFH, and is not recommended for use with other Anti-Xa medications. Performed By: #### 3 274-8 #### [facility] ([id number]) [address], [address] [place] [address] PROTIME AND INRon 01-23-2024 INR Coag (PPP) [Relative time] 1.1 {INR} Normal 0.8-1.1 [facility] Comment on above: Performed By: #### C BRENNON PINR, 03813-1, BMP #### [facility] ([id number]) [address], [address] [place] [address] PT Coag (PPP) [Time] 12.3 s Normal 9.8-13.2 [facility] Comment on above: Performed By: #### C BRENNON, PINR, 96168-5, BMP #### [facility] ([id number]) [address] [place] [address] aPTT Coag (PPP) [Time]on aPTT Coag (Bld) [Time] 51 s High 26-37 [facility] Comment on above: Performed By: #### C BRENNON, PINR, 87150-2, BMP #### [facility] ([id number]) [address] [place] [address] Angelito 01-07-2024 L Specimen: [id number] Received: 01/10/24 Status: MICHAEL Waldron Num: [id number] Spec Type: Surgical Subm Dr: Angelia Treviño Tissues: A Fallopian Tube - Sterilization (BILATERAL) Procedures: HE/3, Gross/Micro L2 Age/ Patient Sex Location Account Attending Physician Kimberly Silverman 33/F LABELL [id number] Angelia Treviño SPEC NUM: [id number] RECD: 01/10/24 STATUS: MICHAEL WALDRON NUM: [id number] ANICETO: 01/07/[address]: Angelia Treviño ENTERED: 01/10/24 [facility] DR: Lopez,Lab SPEC TYPE: Surgical DEPT: FRANTZ [...] markedly dilated lumens throughout all 3 segments. Traction [employer] sections are submitted in 3 cassettes as follows: A1 - Cross-sections of shortest segment A2 - Cross-sections intermediate length segment A3 - Cross-sections longest segment CPT Codes 86034 -------- -------- Specimen: [id number] Received: 01/10/24 Status: MICHAEL Waldron Num: [id number] Spec Type: Surgical Subm Dr: Angelia Treviño Tissues: A Fallopian Tube - Sterilization (BILATERAL) Procedures: RALF/Guanakito Hewitt/Darek L2 -------- Patient: Kimberly Silverman [id number] (Continued) -------- Signed (signature on file) Jani Garcia MD 01/15/24 5053 [facility] AMYLASEon 04-03-2023 Amylase [Catalytic activity/Vol] 62 U/L Normal 25-115 [facility] Comment on above: Performed By: #### L IPA, ANDERSON ####[facility] [address] [address] Reece Garg CBC AUTO DIFFon 04-03-2023 BASO # 0.0 103/ul Normal 0.0-0.1 [facility] Comment on above: Performed By: #### C BC #### [facility] [address] [address] [address] Reece Garg Basophils/100 WBC (Bld) 0.3 % Normal 0.2-2.0 [facility] Comment on above: Performed By: #### C BC #### [facility] [address] [place] [address] Dr. Reece Garg EO # 0.1 103/ul Normal 0.0-0.7 [facility] Comment on above: Performed By: #### C BC #### [facility] [address] [address] [address] Reece Garg Eosinophils/100 WBC (Bld) 0.6 % Critically low 0.9-7.0 [facility] Comment on above: Performed By: #### C BC #### [facility] [address] [place] [address] Dr. Reece Garg Erythrocyte distribution width (RBC) [Ratio] 11.9 % Normal 11.0-15.0 [facility] Comment on above: Performed By: #### C BC #### [facility] [address] [place] [address] Dr. Reece Garg Hematocrit (Bld) [Volume fraction] 37.7 % Normal 36.0-48.0 [facility] Comment on above: Performed By: #### C BC #### [facility] [address] [place] [address] Dr. Reece Garg Hemoglobin (Bld) [Mass/Vol] 12.9 g/dL Normal 12.0-16.0 [facility] Comment on above: Performed By: #### C BC #### [facility] [address] [place] [address] Dr. Reece Garg IG # 0.05 10e3/ul Critically high 0.00-0.03 [facility] Comment on above: Performed By: #### C BC #### [facility] [address] [place] [address] Dr. Reece Garg IG % 0.4 % Normal 0.0-0.5 [facility] Comment on above: Performed By: #### C BC #### [facility] [address] [place] [address] Dr. Reece Garg LYMPH # 2.3 103/ul Normal 1.2-3.8 [facility] Comment on above: Performed By: #### C BC #### [facility] [address] [place] [address] Dr. Reece Garg Lymphocytes/100 WBC (Bld) 20.8 % Normal 20.5-60.0 [facility] Comment on above: Performed By: #### C BC #### [facility] [address] [place] [address] Dr. Reece Garg MANUAL DIFF REQ NO Normal [facility] Comment on above: Performed By: #### C BC #### [facility] [address] [place] [address] Dr. Reece Garg MCH (RBC) [Entitic mass] 32.3 pg Normal 26.7-34.0 [facility] Comment on above: Performed By: #### C BC #### [facility] [address] [place] [address] Dr. Reece Garg MCHC (RBC) [Mass/Vol] 34.2 g/dL Normal 29.9-35.2 [facility] Comment on above: Performed By: #### C BC #### [facility] [address] [place] [address] Dr. Reece Garg MCV (RBC) [Entitic vol] 94.3 fL Normal 81.0-99.0 [facility] Comment on above: Performed By: #### C BC #### [facility] [address] [place] [address] Dr. Reece Garg MONO # 0.6 103/ul Normal 0.3-0.8 [facility] Comment on above: Performed By: #### C BC #### [facility] [address] [address] [address] Reece Garg Monocytes/100 WBC (Bld) 5.3 % Normal 1.7-12.0 [facility] Comment on above: Performed By: #### C BC #### [facility] [address] [address] [address] Reece Garg NEUT # 8.1 103/ul Critically high 1.4-6.5 [facility] Comment on above: Performed By: #### C BC #### [facility] [address] [address] [address] Reece Garg Neutrophils/100 WBC (Bld) 72.6 % Normal 43.0-75.0 [facility] Comment on above: Performed By: #### C BC #### [facility] [address] [place] [address] Dr. Reece Garg Platelet mean volume (Bld) [Entitic vol] 10.2 fL Normal 9.5-13.5 [facility] Comment on above: Performed By: #### C BC #### [facility] [address] [address] [address] Reece Garg PLT 163 103/ul Normal 150-450 [facility] Comment on above: Performed By: #### C BC #### [facility] [address] [place] [address] Dr. Reece Garg RBC 4.00 106/ul Critically low 4.20-5.40 [facility] Comment on above: Performed By: #### C BC #### [facility] [address] [address] [address] Reece Garg WBC 11.1 103/ul Critically high 4.0-11.0 [facility] Comment on above: Performed By: #### C BC #### [facility] [address] [address] [address] Reece Garg BASO # 0.0 103/ul Normal 0.0-0.1 [facility] Comment on above: Performed By: #### C BC #### [facility] [address] [place] [address] Dr. Reece Garg Basophils/100 WBC (Bld) 0.3 % Normal 0.2-2.0 [facility] Comment on above: Performed By: #### C BC #### [facility] [address] [place] [address] Dr. Reece Garg EO # 0.1 103/ul Normal 0.0-0.7 [facility] Comment on above: Performed By: #### C BC #### [facility] [address] [place] [address] Dr. Reece Garg Eosinophils/100 WBC (Bld) 0.7 % Critically low 0.9-7.0 [facility] Comment on above: Performed By: #### C BC #### [facility] [address] [place] [address] Dr. Reece Garg Erythrocyte distribution width (RBC) [Ratio] 12.0 % Normal 11.0-15.0 [facility] Comment on above: Performed By: #### C BC #### [facility] [address] [place] [address] Dr. Reece Garg Hematocrit (Bld) [Volume fraction] 41.4 % Normal 36.0-48.0 [facility] Comment on above: Performed By: #### C BC #### [facility] [address] [place] [address] Dr. Reece Garg Hemoglobin (Bld) [Mass/Vol] 14.3 g/dL Normal 12.0-16.0 [facility] Comment on above: Performed By: #### C BC #### [facility] [address] [place] [address] Dr. Reece Garg IG # 0.05 10e3/ul Critically high 0.00-0.03 [facility] Comment on above: Performed By: #### C BC #### [facility] [address] [place] [address] Dr. Reece Garg IG % 0.3 % Normal 0.0-0.5 [facility] Comment on above: Performed By: #### C BC #### [facility] [address] [place] [address] Dr. Reece Garg LYMPH # 1.6 103/ul Normal 1.2-3.8 [facility] Comment on above: Performed By: #### C BC #### [facility] [address] [place] [address] Dr. Reece Garg Lymphocytes/100 WBC (Bld) 10.6 % Critically low 20.5-60.0 [facility] Comment on above: Performed By: #### C BC #### [facility] [address] [place] [address] Dr. Reece Garg MANUAL DIFF REQ NO Normal [facility] Comment on above: Performed By: #### C BC #### [facility] [address] [place] [address] Dr. Reece Garg MCH (RBC) [Entitic mass] 32.1 pg Normal 26.7-34.0 [facility] Comment on above: Performed By: #### C BC #### [facility] [address] [place] [address] Dr. Reece Garg MCHC (RBC) [Mass/Vol] 34.5 g/dL Normal 29.9-35.2 [facility] Comment on above: Performed By: #### C BC #### [facility] [address] [place] [address] Dr. Reece Garg MCV (RBC) [Entitic vol] 93.0 fL Normal 81.0-99.0 [facility] Comment on above: Performed By: #### C BC #### [facility] [address] [place] [address] Dr. Reece Garg MONO # 0.7 103/ul Normal 0.3-0.8 [facility] Comment on above: Performed By: #### C BC #### [facility] [address] [place] [address] Dr. Reece Garg Monocytes/100 WBC (Bld) 4.7 % Normal 1.7-12.0 [facility] Comment on above: Performed By: #### C BC #### [facility] [address] [place] [address] Dr. Reece Garg NEUT # 12.9 103/ul Critically high 1.4-6.5 [facility] Comment on above: Performed By: #### C BC #### [facility] [address] [place] [address] Dr. Reece Garg Neutrophils/100 WBC (Bld) 83.4 % Critically high 43.0-75.0 [facility] Comment on above: Performed By: #### C BC #### [facility] [address] [place] [address] Dr. Reece Garg Platelet mean volume (Bld) [Entitic vol] 10.4 fL Normal 9.5-13.5 [facility] Comment on above: Performed By: #### C BC #### [facility] [address] [place] [address] Dr. Reece Garg PLT 194 103/ul Normal 150-450 [facility] Comment on above: Performed By: #### C BC #### [facility] [address] [place] [address] Dr. Reece Garg RBC 4.45 106/ul Normal 4.20-5.40 [facility] Comment on above: Performed By: #### C BC #### [facility] [address] [place] [address] Dr. Reece Garg WBC 15.4 103/ul Critically high 4.0-11.0 [facility] Comment on above: Performed By: #### C BC #### [facility] [address] [place] [address] ABD/PELV W CONon [...] LAVON ELIZALDE Date: 2023-04-03 01:36 Normal [facility] ER URINE PROFILEon 3 Bilirubin Ql (U) Negative Normal NEGATIVE [facility] Comment on above: Performed By: #### P REGU, ERUR #### [facility] [address] [place] [address] Dr. Reece Garg Clarity (U) CLEAR Normal CLEAR [facility] Comment on above: Performed By: #### P REGU, ERUR #### [facility] [address] [place] [address] Dr. Reece Garg Color (U) LT. YELLOW Normal YELLOW [facility] Comment on above: Performed By: #### P REGU, ERUR #### [facility] [address] [place] [address] Dr. Reece Garg ERUAHD A micrscopic examination will be performed if indicated. Normal [facility] Comment on above: Performed By: #### P REGU, ERUR #### [facility] [address] [address] [address] Reece Garg Glucose Ql (U) Negative Normal NEGATIVE [facility] Comment on above: Performed By: #### P REGU, ERUR #### [facility] [address] [address] [address] Reece Garg Hemoglobin Ql (U) Negative Normal NEGATIVE [facility] Comment on above: Performed By: #### P REGU, ERUR #### [facility] [address] [place] [address] Dr. Reece Garg Ketones Ql (U) 15 mg/dl Abnormal NEGATIVE [facility] Comment on above: Performed By: #### P REGU, ERUR #### [facility] [address] [place] [address] Dr. Reece Garg LEUKOCYTES Negative Normal NEGATIVE [facility] Comment on above: Performed By: #### P REGU, ERUR #### [facility] [address] [place] [address] Dr. Reece Garg Nitrite Ql (U) Negative Normal NEGATIVE [facility] Comment on above: Performed By: #### P REGU, ERUR #### [facility] [address] [place] [address] Dr. Reece Garg pH (U) 5.5 [pH] Normal 5-9 [facility] Comment on above: Performed By: #### P REGU, ERUR #### [facility] [address] [address] [address] Reece Garg SPEC GRAVITY <=1.005 Abnormal 1.005-<=1.025 [facility] Comment on above: Performed By: #### P REGU, ERUR #### [facility] [address] [place] [address] Dr. Reece Garg UA PROTEIN Negative Normal NEGATIVE/ TRACE [facility] Comment on above: Performed By: #### P REGU, ERUR #### [facility] [address] [place] [address] Dr. Reece Garg UR MICRO IND NOT INDICATED Normal [facility] Comment on above: Performed By: #### P REGU, ERUR #### [facility] [address] [address] [address] Reece Garg Urobilinogen Qn (U) 0.2 {Dariel'U}/dL Normal 0.2 - 1. 0 [facility] Comment on above: Performed By: #### P REGU, ERUR #### [facility] [address] [address] [address] Reece Garg LIPASEon 04-03-2023 Lipase [Catalytic activity/Vol] 62.0 U/L Critically low 73.0-393.0 [facility] Comment on above: Performed By: #### L IPA, ANDERSON ####[facility] [address] [address]Dr. Reece Garg MONOon 04-03-2023 Monocytes (Bld) [#/Vol] Negative Normal NEGATIVE [facility] Comment on above: Performed By: #### M JOSE DANIEL #### [facility] [address] [place] [address] Dr. Reece Garg URon 04-03-2023 , QUAL Negative Normal NEGATIVE [facility] Comment on above: Performed By: #### P REGU, ERUR #### [facility] [address] [place] [address] Dr. Reece Garg PROF 14(COMP METB)on 023 Albumin [Mass/Vol] 3.3 g/dL Critically low 3.4-5.0 [facility] Comment on above: Performed By: #### C MP #### [facility] [address] [place] [address] Dr. Reece Garg Albumin/Globulin [Mass ratio] 1.0 {ratio} Normal [facility] Comment on above: Performed By: #### C MP #### [facility] [address] [place] [address] Dr. Reece Garg ALP [Catalytic activity/Vol] 38 U/L Critically low 46-116 [facility] Comment on above: Performed By: #### C MP #### [facility] [address] [address] [address] Reece Garg ALT [Catalytic activity/Vol] 16 U/L Normal 14-59 [facility] Comment on above: Performed By: #### C MP #### [facility] [address] [address] [address] Reece Garg Anion gap [Moles/Vol] 10.7 mmol/L Normal [facility] Comment on above: Performed By: #### C MP #### [facility] [address] [address] [address] Reece Garg AST [Catalytic activity/Vol] 10 U/L Critically low 15-37 [facility] Comment on above: Performed By: #### C MP #### [facility] [address] [place] [address] Dr. Reece Garg Bilirubin [Mass/Vol] 1.0 mg/dL Normal 0.2-1.0 [facility] Comment on above: Performed By: #### C MP #### [facility] [address] [place] [address] Dr. Reece Garg Calcium [Mass/Vol] 8.2 mg/dL Critically low 8.5-10.1 [facility] Comment on above: Performed By: #### C MP #### [facility] [address] [place] [address] Dr. Reece Garg Chloride [Moles/Vol] 106 mmol/L Normal 98-107 [facility] Comment on above: Performed By: #### C MP #### [facility] [address] [place] [address] Dr. Reece Garg CO2 [Moles/Vol] 27.0 mmol/L Normal 21.0-32.0 [facility] Comment on above: Performed By: #### C MP #### [facility] [address] [place] [address] Dr. Reece Garg Creatinine [Mass/Vol] 0.77 mg/dL Normal 0.55-1.02 [facility] Comment on above: Performed By: #### C MP #### [facility] [address] [place] [address] Dr. Reece Garg EGFR-AF FRENCH >60 Normal >=60 [facility] Comment on above: Performed By: #### C MP #### [facility] [address] [address] [address] Reece Garg EGFR-NON AF FRENCH >60 Normal >=60 [facility] Comment on above: Performed By: #### C MP #### [facility] [address] [address] [address] Reece Garg Globulin (S) [Mass/Vol] 3.3 g/dL Normal [facility] Comment on above: Performed By: #### C MP #### [facility] [address] [address] [address] Reece Garg Glucose [Mass/Vol] 102 mg/dL Normal 74-106 [facility] Comment on above: Performed By: #### C MP #### [facility] [address] [address] [address] Reece Garg Potassium [Moles/Vol] 3.7 mmol/L Normal 3.5-5.1 [facility] Comment on above: Performed By: #### C MP #### [facility] [address] [address] [address] Reece Garg Protein [Mass/Vol] 6.6 g/dL Normal 6.4-8.2 The [facility] Comment on above: Performed By: #### C MP #### [facility] [address] [address] [address] Reece Garg Sodium [Moles/Vol] 140 mmol/L Normal 136-145 The [facility] Comment on above: Performed By: #### C MP #### [facility] [address] [address] [address] Reece Garg Urea nitrogen [Mass/Vol] 8.0 mg/dL Normal 7.0-18.0 [facility] Comment on above: Performed By: #### C MP #### [facility] [address] [address] [address] Reece Garg Urea nitrogen/Creatinine [Mass ratio] 10.4 mg/mg Normal [facility] Comment on above: Performed By: #### C MP #### [facility] [address] [address] [address] Reece Garg PROTIMEon 04-03-2023 INR Coag (PPP) [Relative time] 1.06 {INR} Normal [facility] Comment on above: Performed By: #### P TT, PT #### [facility] [address] [address] [address] Reece Garg INR GUIDELINES SEE BELOW [facility] Comment on above: Result Comment: JJ RED INR: 2.0 - 3.0 CONDITIONS NOT LISTED BELOW 2.5 - 3.5 FOR PROSTHETIC HEART VALVE REPLACEMENT 2.5 - 3.5 RECURRENT THROMBOSIS Performed By: #### P TT, PT #### [facility] [address] [place] [address] Dr. Reece Garg PT Coag (PPP) [Time] 11.2 s Normal 9.0-11.6 [facility] Comment on above: Performed By: #### P TT, PT #### [facility] [address] [address] [address] Reece Garg PTTon 04-03-2023 aPTT Coag (Bld) [Time] 28.1 s Normal 22.3-36.2 [facility] Comment on above: Performed By: #### P TT, PT #### [facility] [address] [place] [address] Dr. Reece Garg PAP ACOG PANEL 2: 30 to 65on 07-28-2022 . . Normal [facility] Comment on above: Result Comment: Perf ormed at: WB Performed By: #### [id number] ####[facility] [address] [address]Dr. Reece Garg Age Gdln ACOG Testing 30-65 [facility] Comment on above: Performed By: #### [id number] ####[facility] [address] [address]Dr. Reece Garg DIAGNOSIS: Comment Normal [facility] Comment on above: Result Comment: NEGA TIVE FOR INTRAEPITHELIAL LESION OR MALIGNANCY. Performed at: WB Performed By: #### [id number] ####[facility] [address] [address]DrHardik Garg HPV Aptima Negative Normal Negative [facility] Comment on above: Result Comment: This nucleic acid amplification test detects fourteen high-risk HPV types (16,18,31,33,35,39,45,51,52,56,58,59,66,68) without differentiation. Performed at: =G Performed By: #### [id number] ####[facility] [address] [place], [place] [address]DrHardik Garg Methodology: Comment Normal [facility] Comment on above: Result Comment: This liquid based ThinPrep(R) pap test was screened with the use of an image guided system. Performed at: WB Performed By: #### [id number] ####[facility] [address] [place], [place] [address]DrHardik Garg Note: Comment Normal [facility] Comment on above: Result Comment: The Pap smear is a screening test designed to aid in the detection of premalignant and malignant conditions of the uterine cervix. It is not a diagnostic procedure and should not be used as the sole means of detecting cervical cancer. Both false-positive and false-negative reports do occur. . Performed at: WB Performed By: #### [id number] ####[facility] [address] [place], [place] [address]DrHardik Garg Performed by: Comment Normal [facility] Comment on above: Result Comment: Alexandra Cortez, Cable Tv Installer (ASCP) Performed at: WB Performed By: #### 4 [id number] ####[facility] [address] [place], [place] [address]DrHardik Garg Specimen adequacy: Comment Normal [facility] Comment on above: Result Comment: Sati sfactory for evaluation. No endocervical component is identified. Performed at: WB Performed By: #### 4 [id number] ####[facility] [address] [place], [place] [address]DrHardik Garg VAGINITIS/VAGINOSIS DNA PROB Erwin 07-24-2022 Mala species Negative Normal Negative [facility] Comment on above: Performed By: #### V AGINT #### [facility] [address] [address] [address] Reece Garg Gardnerella vaginalis Positive Abnormal Negative [facility] Comment on above: Performed By: #### V AGINT #### [facility] [address] [address] [address] Reece Garg Trichomonas vaginalis Negative Normal Negative [facility] Comment on above: Performed By: #### V AGINT #### [facility] [address] [address] [address] Reece Garg Consenton 06-03-2020 Consent [id number] 1.00CD:127 Normal [facility] Encounters Encounter Date Encounter Type Care Provider Facility Start: 02-16-2024 End: 02-16-2024 ambulatory THERESA DAVIS Not Available Start: 02-10-2024 ambulatory [facility] Start: 02-10-2024 End: 02-10-2024 Office outpatient visit 15 minutes Jani Bridges MD [facility] Comment on above: Acute deep vein thro mbosis (DVT) of iliac vein of left lower extremity ([facility]) (Primary Dx); May-Thurner syndrome Start: 01-31-2024 End: 01-31-2024 ambulatory ANGELIA TREVIÑO Not Available Start: 01-26-2024 End: 01-26-2024 Evaluation and management of inpatient PAUL ESTRELLAGURWINDER [facility] Start: 01-24-2024 End: 01-26-2024 Evaluation and management of inpatient [facility] Start: 01-24-2024 End: 01-24-2024 ambulatory DL BUCK [facility] Start: 01-24-[address] [facility] Start: 01-23-2024 End: 01-26-2024 Evaluation and management of inpatient STEPHEN STOKES [facility] Start: 01-23-2024 End: 01-25-2024 Evaluation and management of inpatient JANI Shaheed BRIDGES [facility] Start: 01-20-2024 End: 01-20-2024 ambulatory ANDERSON FRIED Not Available Start: 01-07-2024 End: 01-07-2024 ambulatory Angelia Hudson Facility:[facility] Start: 12-14-2023 End: 12-14-2023 ambulatory ANGELIA HUDSON Not Available Start: 11-04-2023 End: 11-04-2023 ambulatory ANGELIA HUDSON Not Available Start: 04-03-2023 End: 04-03-[address] USMAN ALVAREZ . Facility:[facility] Start: 07-26-2022 Encounter for gynecological examination (general) (routine) without abnormal findings DR EARLENE MCDONOUGH . [facility] Start: 07-22-2022 End: 07-22-[address] EARLENE MCDONOUGH . Facility:[facility] Start: 07-22-2022 End: 07-22-2022 Encounter for gynecological examination (general) (routine) without abnormal findings DR EARLENE MCDONOUGH . Facility: Procedures Date Procedure Procedure Detail Performing Clinician Start: 02-10-2024 Follow-up visit Follow-up JANI BRIDGES Start: 01-23-2024 Adult depression screening assessment Jani Bridges MD Work Phone: Plan of Treatment Date Care Activity Detail Author Start: 01-24-2025 Adult BMI Screening Adult BMI Screen ing [facility] Start: 01-23-2025 Tobacco Screening Tobacco Screening [facility] Start: 01-22-2025 Depression Screening Depression Scre ening [facility] Start: 02-25-2024 End: 02-10-2025 US.doppler Thoracic and Abdominal Aorta and Inferior Vena Cava and Illiac vessels Vas IVC/iliac duplex complete Vascular Ultrasound Routine Acute deep vein thrombosis (DVT) of iliac vein of left lower extremity (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 Expected: 02/25/2024 (Approximate), Expires: 02/10/2025 [place] Work Phone: Comment on above: Expected: 02/25/2024 (Approximate), Expires: 02/10/2025 Start: 07-16-2023 Influenza vaccination Influenza Vacc ine [facility] Start: 02-14-2019 DTaP,Tdap and Td Vaccines (6 - Tdap) DTaP,Tdap and Td Vaccines (6 - Tdap) [facility] Start: 2013 Screening for malign ant neoplasm of cervix Pap Smear [facility] Start: 2010 Adult BMI Follow Up Plan Adult BMI Follow Up Plan [facility] Payers Date Payer Category Payer Self-pay 2022 Unknown [employer] OUT OF STATE PPO/TRUST [id number] 2022-Present [phone] [address] [place] [address] [id number] 1992 Unknown [id number] [id number] 1992 Unknown [id number] 2.840.1.354541.3.579.2.593 1992 Unknown [id number] 2.840.1.015225.3.579.2.1286 1992 Unknown [id number] 2.840.1.877576.3.579.2.1286 1992 Unknown [id number] 2.840.1.181937.3.579.2.128 1992 Unknown [id number] 2.840.1.860219.3.579.2.128 1992 Unknown [id number] 2.840.1.265709.3.579.2.1285 1992 Unknown [id number] 2.840.1.913538.3.579.2.1286 1992 Unknown [id number] 2.840.1.068670.3.579.2.1285 1992 Unknown [id number] 2.840.1.604419.3.579.2.1286 1992 Unknown [id number] 2.16.840.1.854649.3.579.2.9 1992 Unknown [id number] 2.16.840.1.547312.3.579.2.9 1992 Unknown [id number] 2.16.840.1.353816.3.579.2.9 1992 Unknown [id number] 2.16.840.1.755939.3.579.2.9 1992 Unknown [id number] 2.16.840.1.262546.3.579.2.1259 1959 Medicaid [id number] 1959 Unknown [id number] 1959 Unknown [id number] 1959 Unknown [id number] Social History Date Type Detail Facility Start: 01-23-2024 Tobacco smoking stat [facility] Ex-smoker [facility] History of tobacco use Current smoker [facility] History of tobacco use Cigarette Smoker P [facility] Start: 01-23-2024 Tobacco use and exposure Smokeless tobacco non-user [facility] Start: 01-24-2024 Alcohol intake Ex-drinker (finding) [facility] Start: 01-23-2024 End: 01-24-2024 History of Social function [facility] Start: 01-23-2024 End: 01-24-2024 [facility] Tomo Clases [facility] Has [employer], or [employer] threatened to shut off services in your home in past 12Mo No [facility] How often to you hav e a drink containing alcohol? Never [facility] How many standard drinks containing alcohol do you have on a typical day? Patient does not drink [facility] Start: 1992 Sex Assigned At Not on file P [facility] Medical Equipment Procedure Code Equipment Code Equipment Origin al Text Equipment Identifier Dates Stent Vsc 18mm X 100mm Venous Nitinol Slf Expanding Abre - [id number] Start: 01-24-2024 History of Present illness Narrative 02-10-2024 Jani Bridges MD - 02/10/2024 2:40 PM EDT Note Date & Type Note Facility 02-10-2024 History of Presen t illness Narrative Images from the original note were not included. [facility] [address] [facility] [address] Subjective: Patient ID: Kimberly Silverman is a 33 y.o. female. Chief Complaint Chief Complaint Patient presents with Follow-up Thrombectomy lle. DVT and iliac stenting. 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 She is on eliquis. She is doing very well. Patient Active Problem List Diagnosis DVT (deep venous thrombosis) ([facility]) May-Thurner syndrome Current Outpatient Medications: acetaminophen (TYLENOL EXTRA STRENGTH) 500 mg tablet, Take 2 tablets (1,000 mg total) by mouth every 6 (six) hours., Disp: 30 tablet, Rfl: 0 acidophilus-pectin, citrus 25 million cell -100 mg tablet, Take 1 tablet by mouth daily with breakfast., Disp: , Rfl: apixaban (ELIQUIS DVT-PE TREAT 30D START) 5 mg (74 tabs) tablets,dose pack tablet, Take 2 tablets by mouth twice daily for 7 days, then take 1 tablet twice daily, Disp: 74 tablet, Rfl: 0 aspirin 81 mg, Take 1 tablet (81 mg total) by mouth in the morning for 30 days., Disp: 30 tablet, Rfl: 0 atorvastatin (LIPITOR) 40 mg tablet, Take 1 tablet (40 mg total) by mouth nightly for 30 days., Disp: 30 tablet, Rfl: 0 levonorgestreL-ethinyl estrad (NORDETTE) 0.15-0.03 mg per tablet, Take 1 tablet by mouth in the morning., Disp: , Rfl: oxyCODONE (ROXICODONE) 5 mg immediate release tablet, Take 1 tablet (5 mg total) by mouth every 6 (six) hours as needed for pain for up to 10 doses. Max Daily Amount: 20 mg, Disp: 10 tablet, Rfl: 0 The following portions of the patient's history were reviewed and updated as appropriate: allergies, current medications, past family history, past medical history, past social history, past surgical history and problem list. Review of Systems: Review of Systems Constitutional: Negative. HENT: Negative. Respiratory: Negative. Cardiovascular: Negative. Gastrointestinal: Negative. Endocrine: Negative. Genitourinary: Negative. Musculoskeletal: Negative. Skin: Negative. Neurological: Negative. Hematological: Negative. Objective: Vitals There were no vitals taken for this visit. Physical Exam Physical Exam Vitals reviewed. Constitutional: Appearance: Normal appearance. HENT: Head: Normocephalic and atraumatic. Cardiovascular: Rate and Rhythm: Normal rate and regular rhythm. Musculoskeletal: General: Normal range of motion. Cervical back: Normal range of motion. Skin: General: Skin is warm. Capillary Refill: Capillary refill takes less than 2 seconds. Neurological: General: No focal deficit present. Mental Status: She is alert and oriented to person, place, and time. Psychiatric: Mood and Affect: Mood normal. Behavior: Behavior normal. Thought Content: Thought content normal. Judgment: Judgment normal. Studies Reviewed Assesment: Kimberly was seen today for follow-up. Diagnoses and all orders for this visit: Acute deep vein thrombosis (DVT) of iliac vein of left lower extremity (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 Plan Plan: Eliquis STEPHEN US of the left iliac veins F/U in 3 months Jani Bridges MD, [place] documented in this encounter [facility] Evaluation note Note Date & Type Note Facility Evaluation note Diagnosis Acute deep vein thrombosis (DVT) of iliac vein of left lower extremity (CMS-HCC)- 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 Compression of vein documented in this encounter [facility] Instructions Note Date & Type Note Facility Instructions Not on filedocumented in this en counter [facility] Summary Purpose Family History No Family History Records FoundNo Family History Records FoundNo Family History Records FoundNo Family History Records FoundNo Family History Records FoundNo Family History Records Found Advance Directives No Advanced Directives Records FoundLatest Code Status on File Code Status Date Activated Date Inactivated Comments Full Code 01/23/2024 2:36 PM 01/25/2024 4:20 PM Reason for Referral Specialty Diagnoses / Procedures Referred By Contac t Referred To Contact Diagnoses Acute deep vein thrombosis (DVT) of iliac vein of left lower extremity (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 Procedures Vas IVC/iliac duplex complete Jani Bridges MD [address], [place] [address] Referral ID Status Reason Start Date Expiration Date V isits Requested Visits Authorized [id number] Pending Review 02/11/2024 02/10/2025 1 1 Additional Source Comments INFORMATION SOURCE (unrecogn ized section and content) DATE CREATED AUTHOR 06/08/2020 [facility] DATE CREATED AUTHOR AUTHOR'S ORGANIZ ATION 04/23/2023 [facility] DATE CREATED AUTHOR AUTHOR'S ORGANIZ ATION 01/16/2024 [facility] DATE CREATED AUTHOR AUTHOR'S ORGANIZ ATION 01/27/2024 [facility] DATE CREATED AUTHOR AUTHOR'S ORGANIZ ATION 02/15/2024 [facility] DATE CREATED AUTHOR AUTHOR'S ORGANIZ ATION 02/17/2024 [facility] Reason for Visit (unrecogniz ed section and content) Reason Comments Follow-up Thrombectomy lle. DV T and iliac stenting. Per patient she notes some discomfort to lle with mi Care Teams (unrecognized sec tion and content) Parts Cleaner Relationship Specialty Start Date End Date Usman Alvarez MD [address] [place] [address] PCP - General 02/09/24 FOR RECORDS PERTAINING TO PATIENTS WHO ARE [...] BE BASED ON THE PRIMARY CLINICAL RECORDS. [facility]. provides no warranty or guarantee of the accuracy or completeness of information in this document.
== END 2024-02-18 09:43 | disposition home or self-care (01) ==
LOC: LAB 09:46
PROVIDERS: PCP Family Medicine; Visit Provider Internal Medicine Hematology & Oncology
DX: I82.402 Acute embolism and thrombosis of unspecified deep veins of left lower extremity (principal)
CPT/HCPCS: 36415; 81241; 85210

== ENCOUNTER 2024-02-21 08:22 | Outpatient (OUT) | payer BC, SELFPAY | END 2024-02-21 08:23 | disposition home or self-care (01) | LOC: LAB 08:22 | PROVIDERS: PCP Family Medicine; Visit Provider Internal Medicine Hematology & Oncology | DX: I82.402 Acute embolism and thrombosis of unspecified deep veins of left lower extremity (principal) | CPT/HCPCS: 36415; 81241; 85210 ==

== ENCOUNTER 2024-02-22 14:21 | Outpatient (OUT) | payer BC, SELFPAY ==
--- OUTSIDE RECORDS SUMMARY | 2024-02-22 14:36 | XMS_ITS | CCD ---
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 0 Active lactobacillus acidophilus [id number] unt / pectin 100 mg oral tablet [...] Anion gap [Moles/Vol] 7 mmol/L Normal 5-15 [facility] Comment on above: Performed By: #### C BCA, PINR, 48826-9, BMP #### [facility] ([id number]) [address] [place] [address] Calcium [Mass/Vol] 8.7 mg/dL Normal 8.5-10.5 [facility] Comment on above: Performed By: #### C BCA, PINR, 69083-0, BMP #### [facility] ([id number]) [address], [address] [place] [address] Chloride [Moles/Vol] 106 mmol/L Normal 98-109 [facility] Comment on above: Performed By: #### C BCA, PINR, 52588-2, BMP #### [facility] ([id number]) [address], [address] [place] [address] CO2 [Moles/Vol] 23 mmol/L Normal 22-32 [facility] Comment on above: Performed By: #### C BCA, PINR, 11709-9, BMP #### [facility] ([id number]) [address], [address] [place] [address] Creatinine [Mass/Vol] 0.57 mg/dL Normal 0.40-1.00 [facility] Comment on above: Result Comment: METH OD TRACEABLE TO IDMS STANDARD Performed By: #### C BCA, PINR, 08716-8, BMP #### [facility] ([id number]) [address], [address] [place] [address] eGFR (CKD-EPI) NON-RACE DEPENDENT >90 Normal >59 [facility] Comment on above: Result Comment: Reported eGFR is based on the CKD-EPI 2020 equation that does not use a race coefficient. Performed By: #### C BRENNON, PINR, 24213-5, BMP #### [facility] ([id number]) [address], [address] [place] [address] Glucose [Mass/Vol] 139 mg/dL High 65-99 [facility] Comment on above: Performed By: #### C BRENNON, PINR, 73436-6, BMP #### [facility] ([id number]) [address], [address] [place] [address] Potassium [Moles/Vol] 4.3 mmol/L Normal 3.5-5.0 [facility] Comment on above: Performed By: #### C BRENNON, PINR, 09923-1, BMP #### [facility] ([id number]) [address], [address] [place] [address] Sodium [Moles/Vol] 136 mmol/L Normal 134-146 [facility] Comment on above: Performed By: #### C BRENNON, PINR, 55915-7, BMP #### [facility] ([id number]) [address], [address] [place] [address] Urea nitrogen [Mass/Vol] 6 mg/dL Normal 5-23 [facility] Comment on above: Performed By: #### C BRENNON, PINR, 63847-1, BMP #### [facility] ([id number]) [address], [address] [place] [address] CBC AND AUTO DIFFon 1220 24 ABSOLUTE BASOPHIL 0.0 X10E9/L Normal 0.0-0.2 [facility] Comment on above: Performed By: #### C BCA, PINR, 68267-0, BMP #### [facility] ([id number]) [address] [address] [place] [address] ABSOLUTE NEUTROPHIL 2.9 X10E9/L Normal 1.5-6.6 [facility] Comment on above: Performed By: #### C BRENNON, PINR, 48006-0, BMP #### [facility] ([id number]) [address], [address] [place] [address] Basophils/100 WBC (Bld) 0.1 % Normal [facility] Comment on above: Performed By: #### C BCA, PINR, 80573-5, BMP #### [facility] ([id number]) [address], [address] [place] [address] Eosinophils (Bld) [#/Vol] 0.0 10*3/uL Normal 0.0-0.4 [facility] Comment on above: Performed By: #### C BCA, PINR, 72883-7, BMP #### [facility] ([id number]) [address], [address] [place] [address] Eosinophils/100 WBC (Bld) 0.0 % Normal [facility] Comment on above: Performed By: #### C BRENNON, PINR, 87285-5, BMP #### [facility] ([id number]) [address], [address] [place] [address] Erythrocyte distribution width (RBC) [Ratio] 11.8 % Normal 11.5-15.0 [facility] Comment on above: Performed By: #### C BRENNON, PINR, 97806-1, BMP #### [facility] ([id number]) [address], [address] [place] [address] Hematocrit (Bld) [Volume fraction] 35.5 % Normal 35-47 [facility] Comment on above: Performed By: #### C BRENNON, PINR, 67599-6, BMP #### [facility] ([id number]) [address], [address] [place] [address] Hemoglobin (Bld) [Mass/Vol] 12.3 g/dL Normal 11.7-15.5 [facility] Comment on above: Performed By: #### C BRENNON, PINR, 79564-6, BMP #### [facility] ([id number]) [address], [address] [place] [address] Lymphocytes (Bld) [#/Vol] 0.4 10*3/uL Low 1.0-3.5 [facility] Comment on above: Performed By: #### C BRENNON, PINR, 38401-2, BMP #### [facility] ([id number]) [address], [address] [place] [address] Lymphocytes/100 WBC (Bld) 13.1 % Normal [facility] Comment on above: Performed By: #### C BRENNON, PINR, 86571-7, BMP #### [facility] ([id number]) [address], [address] [place] [address] MCH (RBC) [Entitic mass] 32.3 pg Normal 27-34 [facility] Comment on above: Performed By: #### C BRENNON, PINR, 09481-8, BMP #### [facility] ([id number]) [address], [address] [place] [address] MCHC (RBC) [Mass/Vol] 34.6 g/dL Normal 32-36 [facility] Comment on above: Performed By: #### C BRENNON PINR, 95767-5, BMP #### [facility] ([id number]) [address], [address] [place] [address] MCV (RBC) [Entitic vol] 94 fL Normal 80-100 [facility] Comment on above: Performed By: #### C BRENNON, PINR, 23531-1, BMP #### [facility] ([id number]) [address], [address] [place] [address] Monocytes (Bld) [#/Vol] 0.1 10*3/uL Normal 0-0.9 [facility] Comment on above: Performed By: #### C BRENNON, PINR, 44904-4, BMP #### [facility] ([id number]) [address], [address] [place] [address] Monocytes/100 WBC (Bld) 2.4 % Normal [facility] Comment on above: Performed By: #### C BRENNON, PINR, 72196-6, BMP #### [facility] ([id number]) [address], [address] [place] [address] Neutrophils/100 WBC (Bld) 84.4 % Normal [facility] Comment on above: Performed By: #### Anastasiya WILLETT, PINR, 06349-2, BMP #### [facility] ([id number]) [address], [address] [place] [address] Platelet mean volume (Bld) [Entitic vol] 9.1 fL Normal 7-12 [facility] Comment on above: Performed By: #### Anastasiya WILLETT, PINR, 56425-3, BMP #### [facility] ([id number]) [address], [address] [place] [address] Platelets (Bld) [#/Vol] 142 10*3/uL Low 150-450 [facility] Comment on above: Performed By: #### Anastasiya WILLETT, PINR, 67486-5, BMP #### [facility] ([id number]) [address], [address] [place] [address] RBC COUNT 3.79 X10E12/L Low 3.80-5.20 [facility] Comment on above: Performed By: #### Anastasiya WILLETT, PINR, 22991-5, BMP #### [facility] ([id number]) [address], [address] [place] [address] WBC (Bld) [#/Vol] 3.4 10*3/uL Low 4.0-11.0 [facility] Comment on above: Performed By: #### C SADAF WILLETT, 98825-6, BMP #### [facility] ([id number]) [address], [address] [place] [address] Heparin unfractionated Chrom ogenic method Qn (PPP)on 01-25-2024 ANTI XA UFH 0.68 IU/mL Normal 0.30-0.70 [facility] Comment on above: Result Comment: Opti mal time for testing is 6 hrs post dosage This test is specific for monitoring patients on UFH, and is not recommended for use with other Anti-Xa medications. Performed By: #### C SADAF WILLETT, 53846-4, BMP #### [facility] ([id number]) [address], [address] [place] [address] ANTI CARDIOLIPIN AB IGG IGA IGMon 01-24-2024 MELBA IgA <2.0 Normal 0-19.9 [facility] Comment on above: Performed By: #### A Doreen HEATON #### [facility] ([id number]) [address], [address] [place] [address] MELBA IgG <1.6 Normal 0-19.9 [facility] Comment on above: Performed By: #### A Chucky HEATONG #### [facility] ([id number]) [address], [address] [place] [address] MELBA IgM <1.5 Normal 0-19.9 [facility] Comment on above: Performed By: #### Casie CA B2G #### [facility] ([id number]) [address], [address] [place] [address] BASIC METABOLIC PANLon 01-23 Anion gap [Moles/Vol] 8 mmol/L Normal 5-15 [facility] Comment on above: Performed By: #### 3 274-8, CBCA, BMP #### [facility] ([id number]) [address], [address] [place] [address] Calcium [Mass/Vol] 8.0 mg/dL Low 8.5-10.5 [facility] Comment on above: Performed By: #### 3 274-8, CBCA, BMP #### [facility] ([id number]) [address], [address] [place] [address] Chloride [Moles/Vol] 106 mmol/L Normal 98-109 [facility] Comment on above: Performed By: #### 3 274-8, CBCA, BMP #### [facility] ([id number]) [address], [facility] [address] [place] [address] CO2 [Moles/Vol] 22 mmol/L Normal 22-32 [facility] Comment on above: Performed By: #### 3 274-8, CBCA, BMP #### [facility] ([id number]) [address], [address] [place] [address] Creatinine [Mass/Vol] 0.53 mg/dL Normal 0.40-1.00 [facility] Comment on above: Result Comment: METH OD TRACEABLE TO IDMS STANDARD Performed By: #### 3 274-8, CBCA, BMP #### [facility] ([id number]) [address], [address] [place] [address] eGFR (CKD-EPI) NON-RACE DEPENDENT >90 Normal >59 [facility] Comment on above: Result Comment: Reported eGFR is based on the CKD-EPI 1 equation that does not use a race coefficient. Performed By: #### 3 274-8, CBCA, BMP #### [facility] ([id number]) [address], [address] [place] [address] Glucose [Mass/Vol] 76 mg/dL Normal 65-99 [facility] Comment on above: Performed By: #### 3 274-8, CBCA, BMP #### [facility] ([id number]) [address], [address] [place] [address] Potassium [Moles/Vol] 3.8 mmol/L Normal 3.5-5.0 [facility] Comment on above: Performed By: #### 3 274-8, CBCA, BMP #### [facility] ([id number]) [address], [address] [place] [address] Sodium [Moles/Vol] 136 mmol/L Normal 134-146 [facility] Comment on above: Performed By: #### 3 274-8, CBCA, BMP #### [facility] ([id number]) [address], [facility] [address] [place] [address] Urea nitrogen [Mass/Vol] 10 mg/dL Normal 5-23 [facility] Comment on above: Performed By: #### 3 274-8, CBCA, BMP #### [facility] ([id number]) [address], [address] [place] [address] BETA-2 GP1 AB PANELon 2023 BETA-2 GP1 IgA <2.0 Normal 0.0-19.9 [facility] Comment on above: Performed By: #### C BCA, PINR, 28789-0, BMP #### [facility] ([id number]) [address], [address] [place] [address] BETA-2 GP1 IgG <1.4 Normal 0.0-19.9 [facility] Comment on above: Performed By: #### C BCA, PINR, 81168-5, BMP #### [facility] ([id number]) [address], [address] [place] [address] BETA-2 GP1 IgM <1.5 Normal 0.0-19.9 [facility] Comment on above: Performed By: #### C BCA, PINR, 62640-8, BMP #### [facility] ([id number]) [address], [address] [place] [address] CBC AND AUTO DIFFon 01-24-20 24 ABSOLUTE BASOPHIL 0.0 X10E9/L Normal 0.0-0.2 [facility] Comment on above: Performed By: #### 3 274-8, CBCA, BMP #### [facility] ([id number]) [address], [address] [place] [address] ABSOLUTE NEUTROPHIL 3.7 X10E9/L Normal 1.5-6.6 [facility] Comment on above: Performed By: #### 3 274-8, CBCA, BMP #### [facility] ([id number]) [address], [address] [place] [address] Basophils/100 WBC (Bld) 0.4 % Normal [facility] Comment on above: Performed By: #### 3 274-8, CBCA, BMP #### [facility] ([id number]) [address], [address] [place] [address] Eosinophils (Bld) [#/Vol] 0.2 10*3/uL Normal 0.0-0.4 [facility] Comment on above: Performed By: #### 3 274-8, CBCA, BMP #### [facility] ([id number]) [address], [address] [place] [address] Eosinophils/100 WBC (Bld) 2.9 % Normal [facility] Comment on above: Performed By: #### 3 274-8, CBCA, BMP #### [facility] ([id number]) [address], [address] [place] [address] Erythrocyte distribution width (RBC) [Ratio] 12.3 % Normal 11.5-15.0 [facility] Comment on above: Performed By: #### 3 274-8, CBCA, BMP #### [facility] ([id number]) [address], [address] [place] [address] Hematocrit (Bld) [Volume fraction] 36.4 % Normal 35-47 [facility] Comment on above: Performed By: #### 3 274-8, CBCA, BMP #### [facility] ([id number]) [address] [place] [address] Hemoglobin (Bld) [Mass/Vol] 12.4 g/dL Normal 11.7-15.5 [facility] Comment on above: Performed By: #### 3 274-8, CBCA, BMP #### [facility] ([id number]) [address], [facility] [address] [place] [address] Lymphocytes (Bld) [#/Vol] 1.9 10*3/uL Normal 1.0-3.5 [facility] Comment on above: Performed By: #### 3 274-8, CBCA, BMP #### [facility] ([id number]) [address], [facility] [address] [place] [address] Lymphocytes/100 WBC (Bld) 29.7 % Normal [facility] Comment on above: Performed By: #### 3 274-8, CBCA, BMP #### [facility] ([id number]) [address], [address] [place] [address] MCH (RBC) [Entitic mass] 32.5 pg Normal 27-34 [facility] Comment on above: Performed By: #### 3 274-8, CBCA, BMP #### [facility] ([id number]) [address] [place] [address] MCHC (RBC) [Mass/Vol] 34.2 g/dL Normal 32-36 [facility] Comment on above: Performed By: #### 3 274-8, CBCA, BMP #### [facility] ([id number]) [address], [address] [place] [address] MCV (RBC) [Entitic vol] 95 fL Normal 80-100 [facility] Comment on above: Performed By: #### 3 274-8, CBCA, BMP #### [facility] ([id number]) [address], [address] [place] [address] Monocytes (Bld) [#/Vol] 0.5 10*3/uL Normal 0-0.9 [facility] Comment on above: Performed By: #### 3 274-8, CBCA, BMP #### [facility] ([id number]) [address], [address] [place] [address] Monocytes/100 WBC (Bld) 8.2 % Normal [facility] Comment on above: Performed By: #### 3 274-8, CBCA, BMP #### [facility] ([id number]) [address], [address] [place] [address] Neutrophils/100 WBC (Bld) 58.8 % Normal [facility] Comment on above: Performed By: #### 3 274-8, CBCA, BMP #### [facility] ([id number]) [address], [address] [place] [address] Platelet mean volume (Bld) [Entitic vol] 8.7 fL Normal 7-12 [facility] Comment on above: Performed By: #### 3 274-8, CBCA, BMP #### [facility] ([id number]) [address], [address] [place] [address] Platelets (Bld) [#/Vol] 128 10*3/uL Low 150-450 [facility] Comment on above: Performed By: #### 3 274-8, CBCA, BMP #### [facility] ([id number]) [address], [facility] [address] [place] [address] RBC COUNT 3.83 X10E12/L Normal 3.80-5.20 [facility] Comment on above: Performed By: #### 3 274-8, CBCA, BMP #### [facility] ([id number]) [address], [address] [place] [address] WBC (Bld) [#/Vol] 6.4 10*3/uL Normal 4.0-11.0 [facility] Comment on above: Performed By: #### 3 274-8, CBCA, BMP #### [facility] ([id number]) [address], [address] [address] Heparin unfractionated Chrom ogenic method Qn (PPP)on 01-24-2024 ANTI XA UFH 0.47 IU/mL Normal 0.30-0.70 [facility] Comment on above: Result Comment: Opti mal time for testing is 6 hrs post dosage This test is specific for monitoring patients on UFH, and is not recommended for use with other Anti-Xa medications. Performed By: #### 3 274-8, CBCA, BMP #### [facility] ([id number]) [address], [address] [address] dRVVT/dRVVT.excess phospholi pid Coag (PPP) [Ratio]on 01-24-2024 DILUTE VERONIKA'S VIPER VENOM Negative Normal [facility] Comment on above: Performed By: #### C BCA, PINR, 45619-4, BMP #### [facility] ([id number]) [address] [address] BASIC METABOLIC PANLon 01-22 Anion gap [Moles/Vol] 11 mmol/L Normal 5-15 [facility] Comment on above: Performed By: #### C BCA, PINR, 78980-2, BMP #### [facility] ([id number]) [address], [address] [place] [address] Calcium [Mass/Vol] 8.3 mg/dL Low 8.5-10.5 [facility] Comment on above: Performed By: #### C BCA, PINR, 09194-4, BMP #### [facility] ([id number]) [address], [address] [place] [address] Chloride [Moles/Vol] 106 mmol/L Normal 98-109 [facility] Comment on above: Performed By: #### C BCA, PINR, 38195-4, BMP #### [facility] ([id number]) [address], [address] [place] [address] CO2 [Moles/Vol] 21 mmol/L Low 22-32 [facility] Comment on above: Performed By: #### C BCA, PINR, 79049-2, BMP #### [facility] ([id number]) [address], [facility] [address] [place] [address] Creatinine [Mass/Vol] 0.65 mg/dL Normal 0.40-1.00 [facility] Comment on above: Result Comment: METH OD TRACEABLE TO IDMS STANDARD Performed By: #### C BRENNON, PINR, 94814-7, BMP #### [facility] ([id number]) [address], [address] [place] [address] eGFR (CKD-EPI) NON-RACE DEPENDENT >90 Normal >59 [facility] Comment on above: Result Comment: Reported eGFR is based on the CKD-EPI 2020 equation that does not use a race coefficient. Performed By: #### C BCA, PINR, 44165-4, BMP #### [facility] ([id number]) [address], [address] [place] [address] Glucose [Mass/Vol] 78 mg/dL Normal 65-99 [facility] Comment on above: Performed By: #### C BCA, PINR, 66316-9, BMP #### [facility] ([id number]) [address], [address] [place] [address] Potassium [Moles/Vol] 3.9 mmol/L Normal 3.5-5.0 [facility] Comment on above: Performed By: #### C BCA, PINR, 31717-4, BMP #### [facility] ([id number]) [address], [address] [place] [address] Sodium [Moles/Vol] 138 mmol/L Normal 134-146 [facility] Comment on above: Performed By: #### C BCA, PINR, 18808-7, BMP #### [facility] ([id number]) [address], [address] [place] [address] Urea nitrogen [Mass/Vol] 11 mg/dL Normal 5-23 [facility] Comment on above: Performed By: #### C BCA, PINR, 70173-2, BMP #### [facility] ([id number]) [address], [address] [place] [address] CBC AND AUTO DIFFon 01-22-20 24 ABSOLUTE BASOPHIL 0.0 X10E9/L Normal 0.0-0.2 [facility] Comment on above: Performed By: #### C BCA, PINR, 40721-3, BMP #### [facility] ([id number]) [address], [address] [place] [address] ABSOLUTE NEUTROPHIL 6.6 X10E9/L Normal 1.5-6.6 [facility] Comment on above: Performed By: #### C BCA, PINR, 45782-8, BMP #### [facility] ([id number]) [address], [address] [place] [address] Basophils/100 WBC (Bld) 0.3 % Normal [facility] Comment on above: Performed By: #### C BCA, PINR, 02231-2, BMP #### [facility] ([id number]) [address] [address] [place] [address] Eosinophils (Bld) [#/Vol] 0.1 10*3/uL Normal 0.0-0.4 [facility] Comment on above: Performed By: #### C BCA, PINR, 26203-1, BMP #### [facility] ([id number]) [address], [address] [place] [address] Eosinophils/100 WBC (Bld) 0.8 % Normal [facility] Comment on above: Performed By: #### C BRENNON PINSlim, 85965-2, BMP #### [facility] ([id number]) [address], [address] [place] [address] Erythrocyte distribution width (RBC) [Ratio] 12.4 % Normal 11.5-15.0 [facility] Comment on above: Performed By: #### C SADAF WILLETT, 00835-9, BMP #### [facility] ([id number]) [address], [facility] [address] [place] [address] Hematocrit (Bld) [Volume fraction] 39.4 % Normal 35-47 [facility] Comment on above: Performed By: #### C BRENNON PINR, 24243-5, BMP #### [facility] ([id number]) [address], [facility] [address] [place] [address] Hemoglobin (Bld) [Mass/Vol] 13.8 g/dL Normal 11.7-15.5 [facility] Comment on above: Performed By: #### C BRENNON PINR, 76242-8, BMP #### [facility] ([id number]) [address] [address] [place] [address] Lymphocytes (Bld) [#/Vol] 1.9 10*3/uL Normal 1.0-3.5 [facility] Comment on above: Performed By: #### C BRENNON PINR, 66557-9, BMP #### [facility] ([id number]) [address] [place] [address] Lymphocytes/100 WBC (Bld) 20.6 % Normal [facility] Comment on above: Performed By: #### C BRENNON PINR, 88502-9, BMP #### [facility] ([id number]) [address] [place] [address] MCH (RBC) [Entitic mass] 32.7 pg Normal 27-34 [facility] Comment on above: Performed By: #### C BCA, PINR, 72250-9, BMP #### [facility] ([id number]) [address], [address] [place] [address] MCHC (RBC) [Mass/Vol] 34.9 g/dL Normal 32-36 [facility] Comment on above: Performed By: #### C BCA, PINR, 97574-7, BMP #### [facility] ([id number]) [address], [address] [place] [address] MCV (RBC) [Entitic vol] 94 fL Normal 80-100 [facility] Comment on above: Performed By: #### C BCA, PINR, 98751-1, BMP #### [facility] ([id number]) [address], [address] [place] [address] Monocytes (Bld) [#/Vol] 0.6 10*3/uL Normal 0-0.9 [facility] Comment on above: Performed By: #### C BCA, PINR, 60767-3, BMP #### [facility] ([id number]) [address], [address] [place] [address] Monocytes/100 WBC (Bld) 6.0 % Normal [facility] Comment on above: Performed By: #### C BCA, PINR, 28648-5, BMP #### [facility] ([id number]) [address], [address] [place] [address] Neutrophils/100 WBC (Bld) 72.3 % Normal [facility] Comment on above: Performed By: #### C BCA, PINR, 50190-3, BMP #### [facility] ([id number]) [address], [address] [place] [address] Platelet mean volume (Bld) [Entitic vol] 8.4 fL Normal 7-12 [facility] Comment on above: Performed By: #### C BCA, PINR, 27290-6, BMP #### [facility] ([id number]) [address], [facility] [address] [place] [address] Platelets (Bld) [#/Vol] 156 10*3/uL Normal 150-450 [facility] Comment on above: Performed By: #### C BCA, PINR, 12549-0, BMP #### [facility] ([id number]) [address] [address] RBC COUNT 4.21 X10E12/L Normal 3.80-5.20 [facility] Comment on above: Performed By: #### Anastasiya BCA, PINR, 98778-1, BMP #### [facility] ([id number]) [address], [address] [address] WBC (Bld) [#/Vol] 9.1 10*3/uL Normal 4.0-11.0 [facility] Comment on above: Performed By: #### Anastasiya BCA, PINR, 75716-0, BMP #### [facility] ([id number]) [address], [address] [address] [address] CTV ABD AND PELVISon 01-13 CT [...] Hill MD on 01/23/2024 4:56 PM Normal [facility] Heparin unfractionated Chrom ogenic method Qn (PPP)on 01-23-2024 ANTI XA UFH 0.44 IU/mL Normal 0.30-0.70 [facility] Comment on above: Result Comment: Opti mal time for testing is 6 hrs post dosage This test is specific for monitoring patients on UFH, and is not recommended for use with other Anti-Xa medications. Performed By: #### 3 [id number] #### [facility] ([id number]) [address], [address] [place] [address] PROTIME AND INRon 01-23-2024 INR Coag (PPP) [Relative time] 1.1 {INR} Normal 0.8-1.1 [facility] Comment on above: Performed By: #### C BRENNON PINR, 14767-4, BMP #### [facility] ([id number]) [address], [address] [place] [address] PT Coag (PPP) [Time] 12.3 s Normal 9.8-13.2 [facility] Comment on above: Performed By: #### C BRENNON, PINR, 52909-7, BMP #### [facility] ([id number]) [address], [address] [place] [address] aPTT Coag (PPP) [Time]on aPTT Coag (Bld) [Time] 51 s High 26-37 [facility] Comment on above: Performed By: #### C BRENNON, PINR, 18409-1, BMP #### [facility] ([id number]) [address] [place] [address] Angelito 01-07-2024 L Specimen: [id number] Received: 01/10/24 Status: MICHAEL Waldron Num: [id number] Spec Type: Surgical Subm Dr: Angelia Treviño Tissues: A Fallopian Tube - Sterilization (BILATERAL) Procedures: HE/3, Gross/Micro L2 Age/ Patient Sex Location Account Attending Physician Kimberly Silverman 33/F LABELL [id number] Angelia Treviño SPEC NUM: [id number] RECD: 01/10/24 STATUS: MICHAEL WALDRON NUM: [id number] ANICETO: 01/07/[address]: Angelia Treviño ENTERED: [...] markedly dilated lumens throughout all 3 segments. Applications Specialist sections are submitted in 3 cassettes as follows: A1 - Cross-sections of shortest segment A2 - Cross-sections intermediate length segment A3 - Cross-sections longest segment CPT Codes 72328 -------- -------- Specimen: [id number] Received: 01/10/24 Status: MICHAEL Waldron Num: [id number] Spec Type: Surgical Subm Dr: Angelia Treviño Tissues: A Fallopian Tube - Sterilization (BILATERAL) Procedures: RALF/Guan[place]ito Hewitt/Darek L2 -------- Patient: Kimberly Silverman [id number] (Continued) -------- Signed (signature on file) Jani Garcia MD 01/15/24 9[address] [facility] AMYLASEon 04-03-2023 Amylase [Catalytic activity/Vol] 62 U/L Normal 25-115 [facility] Comment on above: Performed By: #### L IPA, ANDERSON ####[facility] [address] [address]Dr. Reece Garg CBC AUTO DIFFon 04-03-2023 BASO # 0.0 103/ul Normal 0.0-0.1 [facility] Comment on above: Performed By: #### C BC #### [facility] [address] [address] [address] Reece Garg Basophils/100 WBC (Bld) 0.3 % Normal 0.2-2.0 [facility] Comment on above: Performed By: #### C BC #### [facility] [address] [place] [address] Dr. Reece Garg EO # 0.1 103/ul Normal 0.0-0.7 [facility] Comment on above: Performed By: #### C BC #### [facility] [address] [address] [address] Reece Garg Eosinophils/100 WBC (Bld) 0.6 % Critically low 0.9-7.0 [facility] Comment on above: Performed By: #### C BC #### [facility] [address] [place] [address] Dr. Reece Garg Erythrocyte distribution width (RBC) [Ratio] 11.9 % Normal 11.0-15.0 [facility] Comment on above: Performed By: #### C BC #### [facility] [address] [place] [address] Dr. Reece Garg Hematocrit (Bld) [Volume fraction] 37.7 % Normal 36.0-48.0 [facility] Comment on above: Performed By: #### C BC #### [facility] [address] [place] [address] Dr. Reece Garg Hemoglobin (Bld) [Mass/Vol] 12.9 g/dL Normal 12.0-16.0 [facility] Comment on above: Performed By: #### C BC #### [facility] [address] [place] [address] Dr. Reece Garg IG # 0.05 10e3/ul Critically high 0.00-0.[address] [facility] Comment on above: Performed By: #### C BC #### [facility] [address] [place] [address] Dr. Reece Garg IG % 0.4 % Normal 0.0-0.5 [facility] Comment on above: Performed By: #### C BC #### [facility] [address] [place] [address] Dr. Reece Garg LYMPH # 2.3 103/ul Normal 1.2-3.8 [facility] Comment on above: Performed By: #### C BC #### [facility] [address] [place] [address] Dr. Reece Garg Lymphocytes/100 WBC (Bld) 20.8 % Normal 20.5-60.0 [facility] Comment on above: Performed By: #### C BC #### [facility] [address] [place] [address] Dr. Reece Garg MANUAL DIFF REQ NO Normal [facility] Comment on above: Performed By: #### C BC #### [facility] [address] [place] [address] Dr. Reece Garg MCH (RBC) [Entitic mass] 32.3 pg Normal 26.7-34.0 [facility] Comment on above: Performed By: #### C BC #### [facility] [address] [place] [address] Dr. Reece Garg MCHC (RBC) [Mass/Vol] 34.2 g/dL Normal 29.9-35.2 [facility] Comment on above: Performed By: #### C BC #### [facility] [address] [place] [address] Dr. Reece Garg MCV (RBC) [Entitic vol] 94.3 fL Normal 81.0-99.0 [facility] Comment on above: Performed By: #### C BC #### [facility] [address] [place] [address] Dr. Reece Garg MONO # 0.6 103/ul Normal 0.3-0.8 [facility] Comment on above: Performed By: #### C BC #### [facility] [address] [address] [address] Reece Garg Monocytes/100 WBC (Bld) 5.3 % Normal 1.7-12.0 [facility] Comment on above: Performed By: #### C BC #### [facility] [address] [address] [address] Reece Garg NEUT # 8.1 103/ul Critically high 1.4-6.5 [facility] Comment on above: Performed By: #### C BC #### [facility] [address] [address] [address] Reece Garg Neutrophils/100 WBC (Bld) 72.6 % Normal 43.0-75.0 [facility] Comment on above: Performed By: #### C BC #### [facility] [address] [place] [address] Dr. Reece Garg Platelet mean volume (Bld) [Entitic vol] 10.2 fL Normal 9.5-13.5 [facility] Comment on above: Performed By: #### C BC #### [facility] [address] [address] [address] Reece Garg PLT 163 103/ul Normal 150-450 [facility] Comment on above: Performed By: #### C BC #### [facility] [address] [place] [address] Dr. Reece Garg RBC 4.00 106/ul Critically low 4.20-5.40 [facility] Comment on above: Performed By: #### C BC #### [facility] [address] [address] [address] Reece Garg WBC 11.1 103/ul Critically high 4.0-11.0 [facility] Comment on above: Performed By: #### C BC #### [facility] [address] [address] [address] Reece Garg BASO # 0.0 103/ul Normal 0.0-0.1 [facility] Comment on above: Performed By: #### C BC #### [facility] [address] [place] [address] Dr. Reece Garg Basophils/100 WBC (Bld) 0.3 % Normal 0.2-2.0 [facility] Comment on above: Performed By: #### C BC #### [facility] [address] [place] [address] Dr. Reece Garg EO # 0.1 103/ul Normal 0.0-0.7 [facility] Comment on above: Performed By: #### C BC #### [facility] [address] [place] [address] Dr. Reece Garg Eosinophils/100 WBC (Bld) 0.7 % Critically low 0.9-7.0 [facility] Comment on above: Performed By: #### C BC #### [facility] [address] [place] [address] Dr. Reece Garg Erythrocyte distribution width (RBC) [Ratio] 12.0 % Normal 11.0-15.0 [facility] Comment on above: Performed By: #### C BC #### [facility] [address] [place] [address] Dr. Reece Garg Hematocrit (Bld) [Volume fraction] 41.4 % Normal 36.0-48.0 [facility] Comment on above: Performed By: #### C BC #### [facility] [address] [place] [address] Dr. Reece Garg Hemoglobin (Bld) [Mass/Vol] 14.3 g/dL Normal 12.0-16.0 [facility] Comment on above: Performed By: #### C BC #### [facility] [address] [place] [address] Dr. Reece Garg IG # 0.05 10e3/ul Critically high 0.00-0.[address] [facility] Comment on above: Performed By: #### C BC #### [facility] [address] [place] [address] Dr. Reece Garg IG % 0.3 % Normal 0.0-0.5 [facility] Comment on above: Performed By: #### C BC #### [facility] [address] [place] [address] Dr. Reece Garg LYMPH # 1.6 103/ul Normal 1.2-3.8 [facility] Comment on above: Performed By: #### C BC #### [facility] [address] [place] [address] Dr. Reece Garg Lymphocytes/100 WBC (Bld) 10.6 % Critically low 20.5-60.0 [facility] Comment on above: Performed By: #### C BC #### [facility] [address] [place] [address] Dr. Reece Garg MANUAL DIFF REQ NO Normal [facility] Comment on above: Performed By: #### C BC #### [facility] [address] [place] [address] Dr. Reece Garg MCH (RBC) [Entitic mass] 32.1 pg Normal 26.7-34.0 [facility] Comment on above: Performed By: #### C BC #### [facility] [address] [place] [address] Dr. Reece Garg MCHC (RBC) [Mass/Vol] 34.5 g/dL Normal 29.9-35.2 [facility] Comment on above: Performed By: #### C BC #### [facility] [address] [place] [address] Dr. Reece Garg MCV (RBC) [Entitic vol] 93.0 fL Normal 81.0-99.0 [facility] Comment on above: Performed By: #### C BC #### [facility] [address] [place] [address] Dr. Reece Garg MONO # 0.7 103/ul Normal 0.3-0.8 [facility] Comment on above: Performed By: #### C BC #### [facility] [address] [place] [address] Dr. Reece Garg Monocytes/100 WBC (Bld) 4.7 % Normal 1.7-12.0 [facility] Comment on above: Performed By: #### C BC #### [facility] [address] [place] [address] Dr. Reece Garg NEUT # 12.9 103/ul Critically high 1.4-6.5 [facility] Comment on above: Performed By: #### C BC #### [facility] [address] [place] [address] Dr. Reece Garg Neutrophils/100 WBC (Bld) 83.4 % Critically high 43.0-75.0 [facility] Comment on above: Performed By: #### C BC #### [facility] [address] [place] [address] Dr. Reece Garg Platelet mean volume (Bld) [Entitic vol] 10.4 fL Normal 9.5-13.5 [facility] Comment on above: Performed By: #### C BC #### [facility] [address] [place] [address] Dr. Reece Garg PLT 194 103/ul Normal 150-450 [facility] Comment on above: Performed By: #### C BC #### [facility] [address] [place] [address] Dr. Reece Garg RBC 4.45 106/ul Normal 4.20-5.40 [facility] Comment on above: Performed By: #### C BC #### [facility] [address] [place] [address] Dr. Reece Garg WBC 15.4 103/ul Critically high 4.0-11.0 [facility] Comment on above: Performed By: #### C BC #### [facility] [address] [place] [address] ABD/PELV W CONon [...] LAVON ELIZALDE Date: 2023-04-03 01:36 Normal [facility] ER URINE PROFILEon 3 Bilirubin Ql (U) Negative Normal NEGATIVE [facility] Comment on above: Performed By: #### P REGU, ERUR #### [facility] [address] [place] [address] Dr. Reece Garg Clarity (U) CLEAR Normal CLEAR [facility] Comment on above: Performed By: #### P REGU, ERUR #### [facility] [address] [place] [address] Dr. Reece Garg Color (U) LT. YELLOW Normal YELLOW [facility] Comment on above: Performed By: #### P REGU, ERUR #### [facility] [address] [place] [address] Dr. Reece Garg ERUAHD A micrscopic examination will be performed if indicated. Normal [facility] Comment on above: Performed By: #### P REGU, ERUR #### [facility] [address] [address] [address] Reece Garg Glucose Ql (U) Negative Normal NEGATIVE [facility] Comment on above: Performed By: #### P REGU, ERUR #### [facility] [address] [address] [address] Reece Garg Hemoglobin Ql (U) Negative Normal NEGATIVE [facility] Comment on above: Performed By: #### P REGU, ERUR #### [facility] [address] [place] [address] Dr. Reece Garg Ketones Ql (U) 15 mg/dl Abnormal NEGATIVE [facility] Comment on above: Performed By: #### P REGU, ERUR #### [facility] [address] [place] [address] Dr. Reece Garg LEUKOCYTES Negative Normal NEGATIVE [facility] Comment on above: Performed By: #### P REGU, ERUR #### [facility] [address] [place] [address] Dr. Reece Garg Nitrite Ql (U) Negative Normal NEGATIVE [facility] Comment on above: Performed By: #### P REGU, ERUR #### [facility] [address] [place] [address] Dr. Reece Garg pH (U) 5.5 [pH] Normal 5-9 [facility] Comment on above: Performed By: #### P REGU, ERUR #### [facility] [address] [address] [address] Reece Garg SPEC GRAVITY <=1.005 Abnormal 1.005-<=1.025 [facility] Comment on above: Performed By: #### P REGU, ERUR #### [facility] [address] [place] [address] Dr. Reece Garg UA PROTEIN Negative Normal NEGATIVE/ TRACE [facility] Comment on above: Performed By: #### P REGU, ERUR #### [facility] [address] [place] [address] Dr. Reece Garg UR MICRO IND NOT INDICATED Normal [facility] Comment on above: Performed By: #### P REGU, ERUR #### [facility] [address] [address] [address] Reece Garg Urobilinogen Qn (U) 0.2 {Dariel'U}/dL Normal 0.2 - 1. 0 [facility] Comment on above: Performed By: #### P REGU, ERUR #### [facility] [address] [address] [address] Reece Garg LIPASEon 04-03-2023 Lipase [Catalytic activity/Vol] 62.0 U/L Critically low 73.0-393.0 [facility] Comment on above: Performed By: #### L IPA, ANDERSON ####[facility] [address] [address]Dr. Reece Garg MONOon 04-03-2023 Monocytes (Bld) [#/Vol] Negative Normal NEGATIVE [facility] Comment on above: Performed By: #### M JOSE DANIEL #### [facility] [address] [place] [address] Dr. Reece Garg URon 04-03-2023 , QUAL Negative Normal NEGATIVE [facility] Comment on above: Performed By: #### P REGU, ERUR #### [facility] [address] [place] [address] Dr. Reece Garg PROF 14(COMP METB)on 023 Albumin [Mass/Vol] 3.3 g/dL Critically low 3.4-5.0 [facility] Comment on above: Performed By: #### C MP #### [facility] [address] [place] [address] Dr. Reece Garg Albumin/Globulin [Mass ratio] 1.0 {ratio} Normal [facility] Comment on above: Performed By: #### C MP #### [facility] [address] [place] [address] Dr. Reece Garg ALP [Catalytic activity/Vol] 38 U/L Critically low 46-116 [facility] Comment on above: Performed By: #### C MP #### [facility] [address] [address] [address] Reece Garg ALT [Catalytic activity/Vol] 16 U/L Normal 14-59 [facility] Comment on above: Performed By: #### C MP #### [facility] [address] [address] [address] Reece Garg Anion gap [Moles/Vol] 10.7 mmol/L Normal [facility] Comment on above: Performed By: #### C MP #### [facility] [address] [address] [address] Reece Garg AST [Catalytic activity/Vol] 10 U/L Critically low 15-37 [facility] Comment on above: Performed By: #### C MP #### [facility] [address] [place] [address] Dr. Reece Garg Bilirubin [Mass/Vol] 1.0 mg/dL Normal 0.2-1.0 [facility] Comment on above: Performed By: #### C MP #### [facility] [address] [place] [address] Dr. Reece Garg Calcium [Mass/Vol] 8.2 mg/dL Critically low 8.5-10.1 [facility] Comment on above: Performed By: #### C MP #### [facility] [address] [place] [address] Dr. Reece Garg Chloride [Moles/Vol] 106 mmol/L Normal 98-107 [facility] Comment on above: Performed By: #### C MP #### [facility] [address] [place] [address] Dr. Reece Garg CO2 [Moles/Vol] 27.0 mmol/L Normal 21.0-32.0 [facility] Comment on above: Performed By: #### C MP #### [facility] [address] [place] [address] Dr. Reece Garg Creatinine [Mass/Vol] 0.77 mg/dL Normal 0.55-1.02 [facility] Comment on above: Performed By: #### C MP #### [facility] [address] [place] [address] Dr. Reece Garg EGFR-AF FAROESE >60 Normal >=60 [facility] Comment on above: Performed By: #### C MP #### [facility] [address] [address] [address] Reece Garg EGFR-NON AF FAROESE >60 Normal >=60 [facility] Comment on above: Performed By: #### C MP #### [facility] [address] [address] [address] Reece Garg Globulin (S) [Mass/Vol] 3.3 g/dL Normal [facility] Comment on above: Performed By: #### C MP #### [facility] [address] [address] [address] Reece Garg Glucose [Mass/Vol] 102 mg/dL Normal 74-106 [facility] Comment on above: Performed By: #### C MP #### [facility] [address] [address] [address] Reece Garg Potassium [Moles/Vol] 3.7 mmol/L Normal 3.5-5.1 [facility] Comment on above: Performed By: #### C MP #### [facility] [address] [address] [address] Reece Garg Protein [Mass/Vol] 6.6 g/dL Normal 6.4-8.2 [facility] Comment on above: Performed By: #### C MP #### [facility] [address] [address] [address] Reece Garg Sodium [Moles/Vol] 140 mmol/L Normal 136-145 [facility] Comment on above: Performed By: #### C MP #### [facility] [address] [address] [address] Reece Garg Urea nitrogen [Mass/Vol] 8.0 mg/dL Normal 7.0-18.0 [facility] Comment on above: Performed By: #### C MP #### [facility] [address] [address] [address] Reece Garg Urea nitrogen/Creatinine [Mass ratio] 10.4 mg/mg Normal [facility] Comment on above: Performed By: #### C MP #### [facility] [address] [address] [address] Reece Garg PROTIMEon 04-03-2023 INR Coag (PPP) [Relative time] 1.06 {INR} Normal [facility] Comment on above: Performed By: #### P TT, PT #### [facility] [address] [address] [address] Reece Garg INR GUIDELINES SEE BELOW [facility] Comment on above: Result Comment: JJ RED INR: 2.0 - 3.0 CONDITIONS NOT LISTED BELOW 2.5 - 3.5 FOR PROSTHETIC HEART VALVE REPLACEMENT 2.5 - 3.5 RECURRENT THROMBOSIS Performed By: #### P TT, PT #### [facility] [address] [place] [address] Dr. Reece Garg PT Coag (PPP) [Time] 11.2 s Normal 9.0-11.6 [facility] Comment on above: Performed By: #### P TT, PT #### [facility] [address] [address] [address] Reece Garg PTTon 04-03-2023 aPTT Coag (Bld) [Time] 28.1 s Normal 22.3-36.2 [facility] Comment on above: Performed By: #### P TT, PT #### [facility] [address] [place] [address] Dr. Reece Garg PAP ACOG PANEL 2: 30 to 65on 07-28-2022 . . Normal [facility] Comment on above: Result Comment: Perf ormed at: WB Performed By: #### [id number] ####[facility] [address] [address]Dr. Reece Garg Age Gdln ACOG Testing 30-65 [facility] Comment on above: Performed By: #### 4 [id number] ####[facility] [address] [address]Dr. Reece Garg DIAGNOSIS: Comment Normal [facility] Comment on above: Result Comment: NEGA TIVE FOR INTRAEPITHELIAL LESION OR MALIGNANCY. Performed at: WB Performed By: #### [id number] ####[facility] [address] [address]DrHardik Garg HPV Aptima Negative Normal Negative [facility] Comment on above: Result Comment: This nucleic acid amplification test detects fourteen high-risk HPV types (16,18,31,33,35,39,45,51,52,56,58,59,66,68) without differentiation. Performed at: =G Performed By: #### [id number] ####[facility] [address] [place], [place] [address]DrHardik Garg Methodology: Comment Normal [facility] Comment on above: Result Comment: This liquid based ThinPrep(R) pap test was screened with the use of an image guided system. Performed at: WB Performed By: #### [id number] ####[facility] [address] [place], [place] [address]DrHardik Garg Note: Comment Normal [facility] Comment on above: Result Comment: The Pap smear is a screening test designed to aid in the detection of premalignant and malignant conditions of the uterine cervix. It is not a diagnostic procedure and should not be used as the sole means of detecting cervical cancer. Both false-positive and false-negative reports do occur. . Performed at: WB Performed By: #### [id number] ####[facility] [address] [place], [place] [address]DrHardik Garg Performed by: Comment Normal [facility] Comment on above: Result Comment: Alexandra Cortez, Bridge/Structure Inspection Team Leader (ASCP) Performed at: WB Performed By: #### [id number] ####[facility] [address] [place], [place] [address]DrHardik Garg Specimen adequacy: Comment Normal [facility] Comment on above: Result Comment: Sati sfactory for evaluation. No endocervical component is identified. Performed at: WB Performed By: #### [id number] ####[facility] [address] [place], [place] [address]DrHardik Garg VAGINITIS/VAGINOSIS DNA PROB Erwin 07-24-2022 Mala species Negative Normal Negative [facility] Comment on above: Performed By: #### V AGINT #### [facility] [address] [address] [address] Reece Garg Gardnerella vaginalis Positive Abnormal Negative [facility] Comment on above: Performed By: #### V AGINT #### [facility] [address] [address] [address] Reece Garg Trichomonas vaginalis Negative Normal Negative [facility] Comment on above: Performed By: #### V AGINT #### [facility] [address] [address] [address] Reece Garg [place] 06-03-2020 Consent [id number] 1.00CD:[id number] Normal [facility] Encounters Encounter Date Encounter Type Care Provider Facility Start: 02-16-2024 End: 02-16-2024 ambulatory THERESA DAVIS Not Available Start: 02-10-2024 ambulatory [facility] Start: 02-10-2024 End: 02-10-2024 Office outpatient visit 15 minutes Jani Bridges MD Work Phone: [facility] Comment on above: Acute deep vein thro mbosis (DVT) of iliac vein of left lower extremity ([facility]) (Primary Dx); May-Thurner syndrome Start: 01-31-2024 End: 01-31-2024 ambulatory ANGELIA TREVIÑO Not Available Start: 01-26-2024 End: 01-26-2024 Evaluation and management of inpatient APUL ESTRELLAGURWINDER [facility] Start: 01-24-2024 End: 01-26-2024 Evaluation and management of inpatient [facility] Start: 01-24-2024 End: 01-24-2024 ambulatory DL BUCK [facility] Start: 01-24-2024 ambulatory [facility] Start: 01-23-2024 End: 01-26-2024 Evaluation and management of inpatient STEPHEN STOKES [facility] Start: 01-23-2024 End: 01-25-2024 Evaluation and management of inpatient JANI Shaheed BRIDGES [facility] Start: 01-20-2024 End: 01-20-2024 ambulatory ANDERSON FRIED Not Available Start: 01-07-2024 End: 01-07-2024 ambulatory Angelia Hudson Facility:[facility] Start: 12-14-2023 End: 12-14-2023 ambulatory ANGELIA HUDSON Not Available Start: 11-04-2023 End: 11-04-2023 ambulatory ANGELIA HUDSON Not Available Start: 04-03-2023 End: 04-03-[address] USMAN ALVAREZ . Facility:[facility] Start: 07-26-2022 Encounter for gynecological examination (general) (routine) without abnormal findings DR EARLENE MCDONOUGH . [facility] Start: 07-22-2022 End: 07-22-[address] EARLENE [...] Adult BMI Screening Adult BMI Screen ing [facility] Start: 01-23-2025 Tobacco Screening Tobacco Screening [facility] Start: 01-22-2025 Depression Screening Depression Scre ening [facility] Start: 02-25-2024 End: 02-10-2025 US.doppler Thoracic and Abdominal Aorta and Inferior Vena Cava and Illiac vessels Vas IVC/iliac duplex complete Vascular Ultrasound Routine Acute deep vein thrombosis (DVT) of iliac vein of left lower extremity (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 Expected: 02/25/2024 (Approximate), Expires: 02/10/2025 NOZA Work Phone: Comment on above: Expected: 02/25/2024 (Approximate), Expires: 02/10/2025 Start: 07-16-2023 Influenza vaccination Influenza Vacc ine [facility] Start: 02-14-2019 DTaP,Tdap and Td Vaccines (6 - Tdap) DTaP,Tdap and Td Vaccines (6 - Tdap) [facility] Start: 2013 Screening for malign ant neoplasm of cervix Pap Smear [facility] Start: 2010 Adult BMI Follow Up Plan Adult BMI Follow Up Plan [facility] Payers Date Payer Category Payer Self-pay 2022 Unknown [employer] OUT OF STATE PPO/TRUST [id number] 2022-Present [phone] [address] [place] [address] [id number] 1992 Unknown [id number] [id number] 1992 Unknown [id number] 2.840.1.370583.3.579.2.593 1992 Unknown [id number] 2.840.1.948426.3.579.2.1286 1992 Unknown [id number] 2.840.1.903196.3.579.2.1286 1992 Unknown [id number] 2.840.1.801377.3.579.2.128 1992 Unknown [id number] 2.840.1.951926.3.579.2.128 1992 Unknown [id number] 2.840.1.232032.3.579.2.1285 1992 Unknown [id number] 2.840.1.690061.3.579.2.1286 1992 Unknown [id number] 2.840.1.821550.3.579.2.1285 1992 Unknown [id number] 2.840.1.848001.3.579.2.1286 1992 Unknown [id number] 2.16.840.1.685276.3.579.2.9 1992 Unknown [id number] 2.16.840.1.331285.3.579.2.9 1992 Unknown [id number] 2.16.840.1.381933.3.579.2.9 1992 Unknown [id number] 2.16.840.1.535271.3.579.2.9 1992 Unknown [id number] 2.16.840.1.445336.3.579.2.1259 1957 Medicaid [id number] 1959 Unknown [id number] 1959 Unknown [id number] 1959 Unknown [id number] Social History Date Type Detail Facility Start: 01-23-2024 Tobacco smoking stat [facility] Ex-smoker [facility] History of tobacco use Current smoker [facility] History of tobacco use Cigarette Smoker [facility] Start: 01-23-2024 Tobacco use and exposure Smokeless tobacco non-user [facility] Start: 01-24-2024 Alcohol intake Ex-drinker (finding) [facility] Start: 01-23-2024 End: 01-24-2024 History of Social function [facility] Start: 01-23-2024 End: 01-24-2024 [facility] [employer] [facility] Has the [employer], or [employer] threatened to shut off services in your home in past 12Mo No [facility] How often to you hav e a drink containing alcohol? Never [facility] How many standard drinks containing alcohol do you have on a typical day? Patient does not drink [facility] Start: 1990 Sex Assigned At Not on file [facility] Medical Equipment Procedure Code Equipment Code Equipment Origin al Text Equipment Identifier Dates Stent Vsc 18mm X 100mm Venous Nitinol Slf Expanding Abre - [id number] Start: 01-24-2024 History of Present illness Narrative 02-10-2024 Jani Bridges MD - 02/10/2024 2:40 PM EDT Note Date & Type Note Facility 02-10-2024 History of Presen t illness Narrative Images from the original note were not included. [facility] [address] [facility] [address] Subjective: Patient ID: Kimberly Silverman is a [...] Problem List Diagnosis DVT (deep venous thrombosis) ([facility]) May-Thurner syndrome Current Outpatient Medications: acetaminophen (TYLENOL [...] Bridges MD, [place] [facility] note Note Date & Type [...] Vas IVC/iliac duplex complete Jani Bridges MD [address], [place] [address] Referral ID Status Reason Start Date Expiration Date V isits Requested Visits Authorized [id number] Pending Review 02/11/2024 02/10/2025 1 1 Additional Source Comments INFORMATION SOURCE (unrecogn ized section and content) DATE CREATED AUTHOR 06/08/2020 [facility] DATE CREATED AUTHOR AUTHOR'S ORGANIZ ATION 04/23/2023 [facility] DATE CREATED AUTHOR AUTHOR'S ORGANIZ ATION 01/16/2024 [facility] DATE CREATED AUTHOR AUTHOR'S ORGANIZ ATION 01/27/2024 [facility] DATE CREATED AUTHOR AUTHOR'S ORGANIZ ATION 02/15/2024 [facility] DATE CREATED AUTHOR AUTHOR'S ORGANIZ ATION 02/17/2024 [facility] EPIC Reason for Visit (unrecogniz ed section and content) Reason Comments Follow-up Thrombectomy lle. DV T and iliac stenting. Per patient she notes some discomfort to lle with mi Care Teams (unrecognized sec tion and content) [employer] Relationship Specialty Start Date End Date Usman Alvarez MD [address] [place] [address] PCP - General 02/09/24 FOR RECORDS PERTAINING [...] BE BASED ON THE PRIMARY CLINICAL RECORDS. [facility]. provides no warranty or guarantee of the accuracy or completeness of information in this document.
[2024-02-25 05:08] LABS: Beta-2 Glycoprotein I Ab, IgA <9 (0-25); Beta-2 Glycoprotein I Ab, IgG <9 (0-20); Beta-2 Glycoprotein I Ab, IgM <9 (0-32)
== END 2024-02-22 14:22 | disposition home or self-care (01) ==
LOC: LAB 14:22
PROVIDERS: PCP Family Medicine; Visit Provider Internal Medicine Hematology & Oncology
DX: I82.402 Acute embolism and thrombosis of unspecified deep veins of left lower extremity (principal)
CPT/HCPCS: 36415; 86146; 86147; 86148

== ENCOUNTER 2024-03-22 08:30 | Outpatient (OUT) | payer BC, SELFPAY ==
--- NOTE | 2024-03-22 08:41 | MR_ITS ---
The [address] [address] Patient Name: KIMBERLY MCMAHON MRN: [id number] date: 1990 Sex: F Assigned Patient Location: MRI Current Patient Location: MRI Accession/Order Number: [id number] Exam Date: 03/22/2024 08:55 Report Date: 03/22/2024 11:20 At the request of: USMAN RODRIGEZ Procedure: MR head/brain wo/w con EXAM: MR head/brain wo/w con HISTORY: Weakness R53.1 COMPARISON: None. TECHNIQUE: Multiplanar T1-weighted, axial FLAIR, and susceptibility images were obtained without intravenous contrast. Following intravenous gadolinium-based contrast administration, axial T2-weighted, diffusion, and T1-weighted images (in multiple planes) were obtained. Contrast: 11 mL Dotarem Findings: There is no mass effect, midline shift, or evidence of intracranial hemorrhage. The ventricles are proportionate to the cerebral sulci. Normal major vascular intracranial flow-voids. Few, scattered punctate high T2/FLAIR signal foci in the white matter, for example in the high, parasagittal left frontal lobe, the inferolateral left frontal lobe, and inferolateral right lower lobe. There are approximately 4-5 total foci in the supratentorial white matter. There are also 2 foci in the left cerebellum, axial T2/FLAIR image 10, and image 6. Postcontrast images demonstrate no abnormal intracranial enhancement. No abnormality of the skull marrow signal. The visualized portions of paranasal sinuses, and mastoid air cells are relatively clear. The orbits are grossly unremarkable. MR/MR head/brain wo/w con Impression: No acute intracranial pathology. No abnormal enhancement. Few, scattered high T2/FLAIR punctate signal foci in the white matter, are nonspecific, and which may be seen in the setting of migraine headache or sequelae of other prior infectious/inflammatory process. Electronically authenticated by: ADELFO ESTEVES Date: 03/22/2024 11:20
== END 2024-03-22 08:31 | disposition home or self-care (01) ==
LOC: MRI 08:30
PROVIDERS: PCP Family Medicine; Visit Provider Family Medicine
DX: R53.1 Weakness (principal)
CPT/HCPCS: 70553; A9575

== ENCOUNTER 2024-03-30 08:29 | Outpatient (OUT) | payer BC, SELFPAY ==
--- NOTE | 2024-03-30 08:40 | US_ITS ---
The [address] [address] Patient Name: KIMBERLY MCMAHON MRN: [id number] date: 1990 Sex: F Assigned Patient Location: US Current Patient Location: US Accession/Order Number: [id number] Exam Date: 03/30/2024 08:57 Report Date: 03/30/2024 11:16 At the request of: USMAN RODRIGEZ Procedure: US venous doppler UE LT EXAMINATION: US venous doppler UE LT HISTORY: Anesthesia R20.0, Paresthesia R20.2 COMPARISON: No relevant comparison available. FINDINGS: REGION: Left upper extremity THROMBI: None. COMPRESSIBILITY: Normal compressibility. FLOW: Normal waveform and antegrade flow between 5 and 20 cm/s. OTHER: None. US/US venous doppler UE LT IMPRESSION: 1. No deep vein thrombus within the left upper extremity. Electronically authenticated by: PONCHO FABIAN Date: 03/30/2024 11:16
--- NOTE | 2024-03-30 08:40 | US_ITS ---
[address] [address] Patient Name: KIMBERLY MCMAHON MRN: [id number] date: 1990 Sex: F Assigned Patient Location: US Current Patient Location: Accession/Order Number: [id number] Exam Date: 03/30/2024 08:57 Report Date: 03/31/2024 06:32 At the request of: USMAN RODRIGEZ Procedure: US arterial duplex LE BI EXAMINATION: US arterial duplex LE BI HISTORY: Anesthesia R20.0, Paresthesia R20.2 COMPARISON: No relevant comparison available. TECHNIQUE: Color duplex Doppler ultrasound evaluation analysis was performed in the usual manner. FINDINGS: RIGHT UPPER EXTREMITY ARTERIAL Axillary: 41/6 cm/s Brachial Proximal: 65/0 cm/s Distal: 56/0 cm/s Radial Proximal: 36/0 cm/s Distal: 39/0 cm/s Ulnar Proximal: 28/0 cm/s Distal: 28/0 cm/s LEFT UPPER EXTREMITY ARTERIAL Subclavian Proximal PSV: 57.7 cm/s Subclavian Proximal EDV: 0.0 cm/s Axillary PSV: 57.7 cm/s Axillary EDV: 0.0 cm/s Brachial Proximal PSV: 65.5 cm/s Proximal EDV: 0.0 cm/s Distal PSV: 58.9 cm/s Distal EDV: 0.0 cm/s Radial Proximal PSV: 38.2 cm/s Proximal PSV: 0.0 cm/s Distal PSV: 18.6 cm/s Distal EDV: 0.0 cm/s Ulnar Proximal PSV: 26.6 cm/s Proximal PSV: 0.0 cm/s Distal PSV: 30.5 cm/s Distal EDV: 0.0 cm/s WAVE FORM: Triphasic waveform with several initial anterior flow notches within the waveform suggesting high resistance flow. VESSEL LUMEN: Mild narrowing without appreciable significant atherosclerotic disease. FLOW VELOCITY: Multiple areas of decreased flow velocity, greater distally within the arms bilaterally. US/US arterial duplex LE BI IMPRESSION: 1. Decreased flow velocity and atypical waveform suggestive of high resistance flow. Electronically authenticated by: PONCHO FABIAN Date: 03/31/2024 06:32
== END 2024-03-30 08:30 | disposition home or self-care (01) ==
LOC: US 08:29
PROVIDERS: PCP Family Medicine; Visit Provider Family Medicine
DX: R20.0 Anesthesia of skin (principal); R20.2 Paresthesia of skin
CPT/HCPCS: 93925; 93971

== ENCOUNTER 2024-04-17 11:09 | Outpatient (OUT) | payer BC, SELFPAY ==
--- NOTE | 2024-04-17 11:12 | US_ITS ---
The [address] [address] Patient Name: KIMBERLY MCMAHON MRN: [id number] date: 1990 Sex: F Assigned Patient Location: Current Patient Location: Accession/Order Number: [id number] Exam Date: 04/17/2024 11:29 Report Date: 04/18/2024 11:15 At the request of: DIONNE JAIME Procedure: US duplex IVC EXAMINATION: US duplex IVC HISTORY: Acute deep vein thrombosis of iliac vain left lower extremity ; history of left iliac vein thrombus; left leg thrombectomy and stent placement 3 months ago; May Thurner syndrome COMPARISON: No relevant comparison available. TECHNIQUE: Ultrasound was performed of the inferior vena cava FINDINGS: IVC: Duplex Doppler demonstrates normal waveform and flow, approximately 50 cm/s within mid IVC. Left iliac stent is 1.5 cm in diameter and patent. Right iliac vein is 0.5 cm in diameter and patent. OTHER: Negative. US/US duplex IVC IMPRESSION: 1. Patent left iliac vein stent. 2. No appreciable thrombus within the inferior vena cava and bilateral iliac veins. Electronically authenticated by: PONCHO FABIAN Date: 04/18/2024 11:15
--- OUTSIDE RECORDS SUMMARY | 2024-04-17 11:25 | XMS_ITS | CCD ---
Author Organization [facility] Care Team Providers Care Pipe Fitter Gas Pipe Name Role Phone RAIN ., DR MARY Attending Unavailable RAIN ., DR MARY Admitting Unavailable RAIN ., DR MARY Primary Care Unavailable RAIN ., DR MARY Consulting Unavailable SARAI WILKINS Unavailable LAVON ELIZALDE Consulting Unavailable SISTER, CUCA Consulting Unavailable ARTURO II, LUL Consulting Unavailable VERNELL .DL Consulting Unavailable CEASAR ., DR HENAO Admitting Unavailabl e KARTARAN ., DR HENAO Consulting Unavailabl e KARASIK ., DR HENAO Attending Unavailulices e RAIN ., DR MARY Primary Care Unavailable Angelia Treviño Attending Unavailable Angelia Treviño Admitting Unavailable JANI BRIDGES Admitting Unavailable JANI BRIDGES Attending Unavailable FLORA LAL Referring Unavailable DL BUCK Referring Unavailable STEPHEN STOKES Referring Unavailable PAUL CHACON Attending Unavailable JANI BRIDGES Attending Unavailable JANI BRIDGES Referring Unavailable Usman Alvarez MD Primary Care Provider [phone] JANI BRIDGES Attending Unavailable USMAN ALVAREZ Primary Care Unavailable ANGELIA TREVIÑO Attending Unavailable ANDERSON FRIED Attending Unavailable ANGELIA TREVIÑO Attending Unavailable ANGELIA TREVIÑO Attending Unavailable THERESA DAVIS Attending Unavailable ADELFO PEREZ Attending Unavailable USMAN ALVAREZ Referring Unavailable Medications Current Medications Medication Drug Class(es) [...] in the morning. 0 Active lactobacillus acidophilus [id number] unt / pectin 100 mg oral tablet [...] Anion gap [Moles/Vol] 7 mmol/L Normal 5-15 [facility] Comment on above: Performed By: #### C BCA, PINR, 31729-3, BMP #### [facility] ([id number]) [address], [address] [place] [address] Calcium [Mass/Vol] 8.7 mg/dL Normal 8.5-10.[address] [facility] Comment on above: Performed By: #### C BCA, PINR, 97005-7, BMP #### [facility] ([id number]) [address], [address] [place] [address] Chloride [Moles/Vol] 106 mmol/L Normal 98-109 [facility] Comment on above: Performed By: #### C BCA, PINR, 35284-7, BMP #### [facility] ([id number]) [address], [address] [place] [address] CO2 [Moles/Vol] 23 mmol/L Normal 22-32 [facility] Comment on above: Performed By: #### C BCA, PINR, 06884-0, BMP #### [facility] ([id number]) [address], [address] [place] [address] Creatinine [Mass/Vol] 0.57 mg/dL Normal 0.40-1.00 [facility] Comment on above: Result Comment: METH OD TRACEABLE TO IDMS STANDARD Performed By: #### C BCA, PINR, 44104-2, BMP #### [facility] ([id number]) [address], [address] [place] [address] eGFR (CKD-EPI) NON-RACE DEPENDENT >90 Normal >59 [facility] Comment on above: Result Comment: Reported eGFR is based on the CKD-EPI 2020 equation that does not use a race coefficient. Performed By: #### C BRENNON PINR, 90100-1, BMP #### [facility] ([id number]) [address], [address] [place] [address] Glucose [Mass/Vol] 139 mg/dL High 65-[address] [facility] Comment on above: Performed By: #### C BRENNON PINR, 76769-0, BMP #### [facility] ([id number]) [address] [address] [place] [address] Potassium [Moles/Vol] 4.3 mmol/L Normal 3.5-5.0 [facility] Comment on above: Performed By: #### C BRENNON PINR, 12738-0, BMP #### [facility] ([id number]) [address], [address] [place] [address] Sodium [Moles/Vol] 136 mmol/L Normal 134-[address] [facility] Comment on above: Performed By: #### C BRENNON PINR, 19073-9, BMP #### [facility] ([id number]) [address] [address] [place] [address] Urea nitrogen [Mass/Vol] 6 mg/dL Normal 5-23 [facility] Comment on above: Performed By: #### C BCA, PINR, 92808-5, BMP #### [facility] ([id number]) [address] [address] [place] [address] CBC AND AUTO DIFFon 12-20 24 ABSOLUTE BASOPHIL 0.0 X10E9/L Normal 0.0-0.[address] [facility] Comment on above: Performed By: #### C BCA, PINR, 26360-3, BMP #### [facility] ([id number]) [address] [address] [place] [address] ABSOLUTE NEUTROPHIL 2.9 X10E9/L Normal 1.5-6.6 [facility] Comment on above: Performed By: #### SADAF Langford BCA, 45716-7, BMP #### [facility] ([id number]) [address], [address] [place] [address] Basophils/100 WBC (Bld) 0.1 % Normal [facility] Comment on above: Performed By: #### C SADAF WILLETT, 27370-8, BMP #### [facility] ([id number]) [address], [facility] [address] [place] [address] Eosinophils (Bld) [#/Vol] 0.0 10*3/uL Normal 0.0-0.4 [facility] Comment on above: Performed By: #### SADAF Langford BCA, 60560-6, BMP #### [facility] ([id number]) [address], [address] [place] [address] Eosinophils/100 WBC (Bld) 0.0 % Normal [facility] Comment on above: Performed By: #### SADAF Langford BCA, 36755-0, BMP #### [facility] ([id number]) [address], [address] [place] [address] Erythrocyte distribution width (RBC) [Ratio] 11.8 % Normal 11.5-15.0 [facility] Comment on above: Performed By: #### SADAF Langford BCA, 94860-2, BMP #### [facility] ([id number]) [address], [address] [place] [address] Hematocrit (Bld) [Volume fraction] 35.5 % Normal 35-47 [facility] Comment on above: Performed By: #### SADAF Langford BCA, 90414-2, BMP #### [facility] ([id number]) [address], [address] [place] [address] Hemoglobin (Bld) [Mass/Vol] 12.3 g/dL Normal 11.7-15.5 [facility] Comment on above: Performed By: #### C BRENNON PINR, 45452-8, BMP #### [facility] ([id number]) [address] [place] [address] Lymphocytes (Bld) [#/Vol] 0.4 10*3/uL Low 1.0-3.5 [facility] Comment on above: Performed By: #### C BRENNON, PINR, 63218-6, BMP #### [facility] ([id number]) [address], [facility] [address] [place] [address] Lymphocytes/100 WBC (Bld) 13.1 % Normal [facility] Comment on above: Performed By: #### Anastasiya WILLETT, PINR, 34371-9, BMP #### [facility] ([id number]) [address], [address] [place] [address] MCH (RBC) [Entitic mass] 32.3 pg Normal 27-34 [facility] Comment on above: Performed By: #### Anastasiya WILLETT, PINR, 23227-0, BMP #### [facility] ([id number]) [address], [address] [place] [address] MCHC (RBC) [Mass/Vol] 34.6 g/dL Normal 32-36 [facility] Comment on above: Performed By: #### C BRENNON, PINR, 46168-7, BMP #### [facility] ([id number]) [address], [address] [place] [address] MCV (RBC) [Entitic vol] 94 fL Normal 80-100 [facility] Comment on above: Performed By: #### Anastasiya WILLETT, PINR, 69040-1, BMP #### [facility] ([id number]) [address], [address] [place] [address] Monocytes (Bld) [#/Vol] 0.1 10*3/uL Normal 0-0.9 [facility] Comment on above: Performed By: #### SADAF Langford BCA, 25998-8, BMP #### [facility] ([id number]) [address], [address] [place] [address] Monocytes/100 WBC (Bld) 2.4 % Normal [facility] Comment on above: Performed By: #### SADAF Langford BCA, 70778-6, BMP #### [facility] ([id number]) [address], [address] [place] [address] Neutrophils/100 WBC (Bld) 84.4 % Normal [facility] Comment on above: Performed By: #### SADAF Langford BCA, 70048-6, BMP #### [facility] ([id number]) [address], [address] [place] [address] Platelet mean volume (Bld) [Entitic vol] 9.1 fL Normal 7-12 [facility] Comment on above: Performed By: #### SADAF Langford BCA, 25930-7, BMP #### [facility] ([id number]) [address], [address] [place] [address] Platelets (Bld) [#/Vol] 142 10*3/uL Low 150-450 [facility] Comment on above: Performed By: #### SADAF Langford BCA, 75530-9, BMP #### [facility] ([id number]) [address], [address] [place] [address] RBC COUNT 3.79 X10E12/L Low 3.80-5.20 [facility] Comment on above: Performed By: #### Anastasiya WILLETT PINR, 29681-8, BMP #### [facility] ([id number]) [address], [address] [place] [address] WBC (Bld) [#/Vol] 3.4 10*3/uL Low 4.0-11.[address] [facility] Comment on above: Performed By: #### C SADAF WILLETT, 26896-5, BMP #### [facility] ([id number]) [address], [address] [place] [address] Heparin unfractionated Chrom ogenic method Qn (PPP)on 01-25-2024 ANTI XA UFH 0.68 IU/mL Normal 0.30-0.70 [facility] Comment on above: Result Comment: Opti mal time for testing is 6 hrs post dosage This test is specific for monitoring patients on UFH, and is not recommended for use with other Anti-Xa medications. Performed By: #### C SADAF WILLETT, 16805-9, BMP #### [facility] ([id number]) [address], [address] [place] [address] ANTI CARDIOLIPIN AB IGG IGA IGMon 01-24-2024 MELBA IgA <2.0 Normal 0-19.9 [facility] Comment on above: Performed By: #### A FLORINA B2G #### [facility] ([id number]) [address], [address] [place] [address] MELBA IgG <1.6 Normal 0-19.9 [facility] Comment on above: Performed By: #### A CA B2G #### [facility] ([id number]) [address], [address] [address] MELBA IgM <1.5 Normal 0-19.9 [facility] Comment on above: Performed By: #### A CA B2G #### [facility] ([id number]) [address], [address] [place] [address] BASIC METABOLIC PANLon 01-23 Anion gap [Moles/Vol] 8 mmol/L Normal 5-15 [facility] Comment on above: Performed By: #### 3 274-8, CBCA, BMP #### [facility] ([id number]) [address], [address] [place] [address] Calcium [Mass/Vol] 8.0 mg/dL Low 8.5-10.[address] [facility] Comment on above: Performed By: #### 3 274-8, CBCA, BMP #### [facility] ([id number]) [address], [address] [place] [address] Chloride [Moles/Vol] 106 mmol/L Normal 98-109 [facility] Comment on above: Performed By: #### 3 274-8, CBCA, BMP #### [facility] ([id number]) [address], [address] [place] [address] CO2 [Moles/Vol] 22 mmol/L Normal 22-32 [facility] Comment on above: Performed By: #### 3 274-8, CBCA, BMP #### [facility] ([id number]) [address], [address] [place] [address] Creatinine [Mass/Vol] 0.53 mg/dL Normal 0.40-1.00 [facility] Comment on above: Result Comment: METH OD TRACEABLE TO IDMS STANDARD Performed By: #### 3 274-8, CBCA, BMP #### [facility] ([id number]) [address], [address] [place] [address] eGFR (CKD-EPI) NON-RACE DEPENDENT >90 Normal >59 [facility] Comment on above: Result Comment: Reported eGFR is based on the CKD-EPI 1 equation that does not use a race coefficient. Performed By: #### 3 274-8, CBCA, BMP #### [facility] ([id number]) [address], [address] [place] [address] Glucose [Mass/Vol] 76 mg/dL Normal 65-[address] [facility] Comment on above: Performed By: #### 3 274-8, CBCA, BMP #### [facility] ([id number]) [address], [address] [place] [address] Potassium [Moles/Vol] 3.8 mmol/L Normal 3.5-5.0 [facility] Comment on above: Performed By: #### 3 274-8, CBCA, BMP #### [facility] ([id number]) [address], [address] [place] [address] Sodium [Moles/Vol] 136 mmol/L Normal 134-[address] [facility] Comment on above: Performed By: #### 3 274-8, CBCA, BMP #### [facility] ([id number]) [address], [address] [place] [address] Urea nitrogen [Mass/Vol] 10 mg/dL Normal 5-23 [facility] Comment on above: Performed By: #### 3 274-8, CBCA, BMP #### [facility] ([id number]) [address], [address] [place] [address] BETA-2 GP1 AB PANELon 2023 BETA-2 GP1 IgA <2.0 Normal 0.0-19.9 [facility] Comment on above: Performed By: #### C BCA, PINR, 95387-1, BMP #### [facility] ([id number]) [address], [address] [place] [address] BETA-2 GP1 IgG <1.4 Normal 0.0-19.9 [facility] Comment on above: Performed By: #### C BCA, PINR, 59962-1, BMP #### [facility] ([id number]) [address], [address] [place] [address] BETA-2 GP1 IgM <1.5 Normal 0.0-19.9 [facility] Comment on above: Performed By: #### C BCA, PINR, 16921-0, BMP #### [facility] ([id number]) [address], [address] [place] [address] CBC AND AUTO DIFFon 01-24-20 ABSOLUTE BASOPHIL 0.0 X10E9/L Normal 0.0-0.[address] [facility] Comment on above: Performed By: #### 3 274-8, CBCA, BMP #### [facility] ([id number]) [address], [address] [place] [address] ABSOLUTE NEUTROPHIL 3.7 X10E9/L Normal 1.5-6.6 [facility] Comment on above: Performed By: #### 3 274-8, CBCA, BMP #### [facility] ([id number]) [address], [address] [address] Basophils/100 WBC (Bld) 0.4 % Normal [facility] Comment on above: Performed By: #### 3 274-8, CBCA, BMP #### [facility] ([id number]) [address], [address] [place] [address] Eosinophils (Bld) [#/Vol] 0.2 10*3/uL Normal 0.0-0.4 [facility] Comment on above: Performed By: #### 3 274-8, CBCA, BMP #### [facility] ([id number]) [address], [address] [address] Eosinophils/100 WBC (Bld) 2.9 % Normal [facility] Comment on above: Performed By: #### 3 274-8, CBCA, BMP #### [facility] ([id number]) [address], [address] [place] [address] Erythrocyte distribution width (RBC) [Ratio] 12.3 % Normal 11.5-15.0 [facility] Comment on above: Performed By: #### 3 274-8, CBCA, BMP #### [facility] ([id number]) [address], [address] [address] Hematocrit (Bld) [Volume fraction] 36.4 % Normal 35-47 [facility] Comment on above: Performed By: #### 3 274-8, CBCA, BMP #### [facility] ([id number]) [address] [address] Hemoglobin (Bld) [Mass/Vol] 12.4 g/dL Normal 11.7-15.5 [facility] Comment on above: Performed By: #### 3 274-8, CBCA, BMP #### [facility] ([id number]) [address] [address] Lymphocytes (Bld) [#/Vol] 1.9 10*3/uL Normal 1.0-3.5 [facility] Comment on above: Performed By: #### 3 274-8, CBCA, BMP #### [facility] ([id number]) [address], [address] [address] Lymphocytes/100 WBC (Bld) 29.7 % Normal [facility] Comment on above: Performed By: #### 3 274-8, CBCA, BMP #### [facility] ([id number]) [address], [address] [address] MCH (RBC) [Entitic mass] 32.5 pg Normal 27-34 [facility] Comment on above: Performed By: #### 3 274-8, CBCA, BMP #### [facility] ([id number]) [address], [address] [address] MCHC (RBC) [Mass/Vol] 34.2 g/dL Normal 32-36 [facility] Comment on above: Performed By: #### 3 274-8, CBCA, BMP #### [facility] ([id number]) [address] [address] MCV (RBC) [Entitic vol] 95 fL Normal 80-100 [facility] Comment on above: Performed By: #### 3 274-8, CBCA, BMP #### [facility] ([id number]) [address], [address] [place] [address] Monocytes (Bld) [#/Vol] 0.5 10*3/uL Normal 0-0.9 [facility] Comment on above: Performed By: #### 3 274-8, CBCA, BMP #### [facility] ([id number]) [address], [facility] [address] [place] [address] Monocytes/100 WBC (Bld) 8.2 % Normal [facility] Comment on above: Performed By: #### 3 274-8, CBCA, BMP #### [facility] ([id number]) [address], [address] [place] [address] Neutrophils/100 WBC (Bld) 58.8 % Normal [facility] Comment on above: Performed By: #### 3 274-8, CBCA, BMP #### [facility] ([id number]) [address], [address] [place] [address] Platelet mean volume (Bld) [Entitic vol] 8.7 fL Normal 7-12 [facility] Comment on above: Performed By: #### 3 274-8, CBCA, BMP #### [facility] ([id number]) [address], [address] [place] [address] Platelets (Bld) [#/Vol] 128 10*3/uL Low 150-450 [facility] Comment on above: Performed By: #### 3 274-8, CBCA, BMP #### [facility] ([id number]) [address], [address] [place] [address] RBC COUNT 3.83 X10E12/L Normal 3.80-5.20 [facility] Comment on above: Performed By: #### 3 274-8, CBCA, BMP #### [facility] ([id number]) [address], [address] [place] [address] WBC (Bld) [#/Vol] 6.4 10*3/uL Normal 4.0-11.[address] [facility] Comment on above: Performed By: #### 3 274-8, CBCA, BMP #### [facility] ([id number]) [address], [address] [place] [address] Heparin unfractionated Chrom ogenic method Qn (PPP)on 01-24-2024 ANTI XA UFH 0.47 IU/mL Normal 0.30-0.70 [facility] Comment on above: Result Comment: Opti mal time for testing is 6 hrs post dosage This test is specific for monitoring patients on UFH, and is not recommended for use with other Anti-Xa medications. Performed By: #### 3 274-8, CBCA, BMP #### [facility] ([id number]) [address], [address] [place] [address] dRVVT/dRVVT.excess phospholi pid Coag (PPP) [Ratio]on 01-24-2024 DILUTE VERONIKA'S VIPER VENOM Negative Normal [facility] Comment on above: Performed By: #### C BCA, PINR, 31729-4, BMP #### [facility] ([id number]) [address], [address] [place] [address] BASIC METABOLIC PANLon 01-22 Anion gap [Moles/Vol] 11 mmol/L Normal 5-15 [facility] Comment on above: Performed By: #### C BCA, PINR, 55095-5, BMP #### [facility] ([id number]) [address], [address] [place] [address] Calcium [Mass/Vol] 8.3 mg/dL Low 8.5-10.[address] [facility] Comment on above: Performed By: #### C BCA, PINR, 69522-6, BMP #### [facility] ([id number]) [address], [address] [place] [address] Chloride [Moles/Vol] 106 mmol/L Normal 98-109 [facility] Comment on above: Performed By: #### C BRENNON PINR, 20831-4, BMP #### [facility] ([id number]) [address], [address] [place] [address] CO2 [Moles/Vol] 21 mmol/L Low 22-32 [facility] Comment on above: Performed By: #### C BRENNON PINR, 84983-4, BMP #### [facility] ([id number]) [address], [address] [place] [address] Creatinine [Mass/Vol] 0.65 mg/dL Normal 0.40-1.00 [facility] Comment on above: Result Comment: METH OD TRACEABLE TO IDMS STANDARD Performed By: #### C BRENNON PINR, 10042-8, BMP #### [facility] ([id number]) [address], [address] [place] [address] eGFR (CKD-EPI) NON-RACE DEPENDENT >90 Normal >59 [facility] Comment on above: Result Comment: Reported eGFR is based on the CKD-EPI 2020 equation that does not use a race coefficient. Performed By: #### C BRENNON PINR, 28878-9, BMP #### [facility] ([id number]) [address], [address] [place] [address] Glucose [Mass/Vol] 78 mg/dL Normal 65-[address] [facility] Comment on above: Performed By: #### C BRENNON PINR, 20340-0, BMP #### [facility] ([id number]) [address], [address] [place] [address] Potassium [Moles/Vol] 3.9 mmol/L Normal 3.5-5.0 [facility] Comment on above: Performed By: #### C BRENNON PINR, 56473-8, BMP #### [facility] ([id number]) [address], [address] [place] [address] Sodium [Moles/Vol] 138 mmol/L Normal 134-[address] [facility] Comment on above: Performed By: #### C BRENNON PINR, 53108-3, BMP #### [facility] ([id number]) [address], [address] [place] [address] Urea nitrogen [Mass/Vol] 11 mg/dL Normal 5-23 [facility] Comment on above: Performed By: #### C BRENNON PINR, 18653-5, BMP #### [facility] ([id number]) [address], [address] [place] [address] CBC AND AUTO DIFFon 01-23-20 24 ABSOLUTE BASOPHIL 0.0 X10E9/L Normal 0.0-0.[address] [facility] Comment on above: Performed By: #### C BRENNON PINR, 40169-1, BMP #### [facility] ([id number]) [address], [address] [place] [address] ABSOLUTE NEUTROPHIL 6.6 X10E9/L Normal 1.5-6.6 [facility] Comment on above: Performed By: #### C BRENNON PINR, 24788-8, BMP #### [facility] ([id number]) [address], [address] [place] [address] Basophils/100 WBC (Bld) 0.3 % Normal [facility] Comment on above: Performed By: #### C BRENNON PINR, 93165-5, BMP #### [facility] ([id number]) [address], [address] [place] [address] Eosinophils (Bld) [#/Vol] 0.1 10*3/uL Normal 0.0-0.4 [facility] Comment on above: Performed By: #### C BRENNON PINR, 03078-8, BMP #### [facility] ([id number]) [address], [address] [place] [address] Eosinophils/100 WBC (Bld) 0.8 % Normal [facility] [place] Comment on above: Performed By: #### C BRENNON PINR, 69023-9, BMP #### [facility] ([id number]) [address], [address] [place] [address] Erythrocyte distribution width (RBC) [Ratio] 12.4 % Normal 11.5-15.0 [facility] [place] Comment on above: Performed By: #### C BRENNON, PINR, 44212-2, BMP #### [facility] ([id number]) [address], [address] [place] [address] Hematocrit (Bld) [Volume fraction] 39.4 % Normal 35-47 [facility] [place] Comment on above: Performed By: #### C BRENNON, PINR, 41451-1, BMP #### [facility] ([id number]) [address], [address] [place] [address] Hemoglobin (Bld) [Mass/Vol] 13.8 g/dL Normal 11.7-15.5 [facility] Comment on above: Performed By: #### Anastasiya WILLETT, PINR, 11924-4, BMP #### [facility] ([id number]) [address], [address] [place] [address] Lymphocytes (Bld) [#/Vol] 1.9 10*3/uL Normal 1.0-3.5 [facility] Comment on above: Performed By: #### C BRENNON, PINR, 36409-1, BMP #### [facility] ([id number]) [address], [address] [place] [address] Lymphocytes/100 WBC (Bld) 20.6 % Normal [facility] Comment on above: Performed By: #### C BRENNON, PINR, 73642-1, BMP #### [facility] ([id number]) [address], [address] [place] [address] MCH (RBC) [Entitic mass] 32.7 pg Normal 27-34 [facility] Comment on above: Performed By: #### C BRENNON, PINR, 97018-3, BMP #### [facility] ([id number]) [address], [address] [place] [address] MCHC (RBC) [Mass/Vol] 34.9 g/dL Normal 32-36 [facility] Comment on above: Performed By: #### C BRENNON, PINR, 88245-6, BMP #### [facility] ([id number]) [address], [address] [place] [address] MCV (RBC) [Entitic vol] 94 fL Normal 80-100 [facility] Comment on above: Performed By: #### C BRENNON, PINR, 58587-1, BMP #### [facility] ([id number]) [address], [address] [place] [address] Monocytes (Bld) [#/Vol] 0.6 10*3/uL Normal 0-0.9 [facility] Comment on above: Performed By: #### Anastasiya WILLETT, PINR, 78459-5, BMP #### [facility] ([id number]) [address], [address] [place] [address] Monocytes/100 WBC (Bld) 6.0 % Normal [facility] Comment on above: Performed By: #### Anastasiya WILLETT, PINR, 50895-8, BMP #### [facility] ([id number]) [address], [address] [place] [address] Neutrophils/100 WBC (Bld) 72.3 % Normal [facility] Comment on above: Performed By: #### C BRENNON, PINR, 82611-4, BMP #### [facility] ([id number]) [address] [address] Platelet mean volume (Bld) [Entitic vol] 8.4 fL Normal 7-12 [facility] Comment on above: Performed By: #### Anastasiya WILLETT PINR, 94930-9, BMP #### [facility] ([id number]) [address] [address] Platelets (Bld) [#/Vol] 156 10*3/uL Normal 150-450 [facility] Comment on above: Performed By: #### Anastasiya WILLETT PINR, 10933-5, BMP #### [facility] ([id number]) [address] [address] RBC COUNT 4.21 X10E12/L Normal 3.80-5.20 [facility] Comment on above: Performed By: #### Anastasiya WILLETT, PINR, 98255-7, BMP #### [facility] ([id number]) [address] [address] WBC (Bld) [#/Vol] 9.1 10*3/uL Normal 4.0-11.[address] [facility] Comment on above: Performed By: #### Anastasiya WILLETT PINR, 98670-6, BMP #### [facility] ([id number]) [address] [address] [address] CTV ABD AND PELVISon 01-13 CT [...] Hill MD on 01/23/2024 4:56 PM Normal [facility] Heparin unfractionated Chrom ogenic method Qn (PPP)on 01-23-2024 ANTI XA UFH 0.44 IU/mL Normal 0.30-0.70 [facility] Comment on above: Result Comment: Opti mal time for testing is 6 hrs post dosage This test is specific for monitoring patients on UFH, and is not recommended for use with other Anti-Xa medications. Performed By: #### 3 274-8 #### [facility] ([id number]) [address], [address] [place] [address] PROTIME AND INRon 01-23-2024 INR Coag (PPP) [Relative time] 1.1 {INR} Normal 0.8-1.1 [facility] Comment on above: Performed By: #### C SADAF WILLETT, 87303-2, BMP #### [facility] ([id number]) [address], [address] [place] [address] PT Coag (PPP) [Time] 12.3 s Normal 9.8-13.2 [facility] Comment on above: Performed By: #### C BRENNON PINR, 57990-9, BMP #### [facility] ([id number]) [address], [address] [place] [address] aPTT Coag (PPP) [Time]on aPTT Coag (Bld) [Time] 51 s High 26-37 [facility] Comment on above: Performed By: #### C BCA, PINR, 03014-9, BMP #### [facility] ([id number]) [address], [address] [place] [address] Angelito 01-07-2024 L Specimen: [id number] Received: 01/10/24 Status: MICHALE Waldron Num: [id number] Spec Type: Surgical Subm Dr: Angelia Treviño Tissues: A Fallopian Tube - Sterilization (BILATERAL) Procedures: HE/3, Gross/Micro L2 Age/ Patient Sex Location Account Attending Physician Kimberly Silverman 33/F LABELL [id number] Angelia Treviño SPEC NUM: [id number] RECD: 01/10/24 STATUS: MICHAEL WALDRON NUM: [id number] ANICETO: 01/07/[address]: Angelia Treviño ENTERED: 01/10/[address] [facility] [address]: Lopez,Lab SPEC TYPE: Surgical DEPT: [...] markedly dilated lumens throughout all 3 segments. Card Stripper sections are submitted in 3 cassettes as follows: A1 - Cross-sections of shortest segment A2 - Cross-sections intermediate length segment A3 - Cross-sections longest segment CPT Codes 28529 -------- -------- Specimen: [id number] Received: 01/10/24 Status: MICHAEL Waldron Num: [id number] Spec Type: Surgical Subm Dr: Angelia Treviño Tissues: A Fallopian Tube - Sterilization (BILATERAL) Procedures: Guanakito SERRANO/Darek L2 -------- Patient: Kimberly Silverman [id number] (Continued) -------- Signed (signature on file) Jani Garcia MD 01/15/[address] [facility] AMYLASEon 04-03-2023 Amylase [Catalytic activity/Vol] 62 U/L Normal 25-115 [facility] Comment on above: Performed By: #### L ANDERSON OVALLES ####[facility] [id number] [place] [address]Dr. Reece Garg CBC AUTO DIFFon 04-03-2023 BASO # 0.0 103/ul Normal 0.0-0.1 [facility] Comment on above: Performed By: #### C BC #### [facility] [address] [address] [address] Reece Garg Basophils/100 WBC (Bld) 0.3 % Normal 0.2-2.0 [facility] Comment on above: Performed By: #### C BC #### [facility] [address] [address] [address] Reece Garg EO # 0.1 103/ul Normal 0.0-0.7 [facility] Comment on above: Performed By: #### C BC #### [facility] [address] [address] [address] Reece Garg Eosinophils/100 WBC (Bld) 0.6 % Critically low 0.9-7.0 [facility] Comment on above: Performed By: #### C BC #### [facility] [address] [address] [address] Reece Garg Erythrocyte distribution width (RBC) [Ratio] 11.9 % Normal 11.0-15.0 [facility] Comment on above: Performed By: #### C BC #### [facility] [address] [address] [address] Reece Garg Hematocrit (Bld) [Volume fraction] 37.7 % Normal 36.0-48.0 [facility] Comment on above: Performed By: #### C BC #### [facility] [address] [address] [address] Reece Garg Hemoglobin (Bld) [Mass/Vol] 12.9 g/dL Normal 12.0-16.0 [facility] Comment on above: Performed By: #### C BC #### [facility] [address] [place] [address] Dr. Reece Garg IG # 0.05 10e3/ul Critically high 0.00-0.03 [facility] Comment on above: Performed By: #### C BC #### [facility] [address] [place] [address] Dr. Reece Garg IG % 0.4 % Normal 0.0-0.5 [facility] Comment on above: Performed By: #### C BC #### [facility] [address] [place] [address] Dr. Reece Garg LYMPH # 2.3 103/ul Normal 1.2-3.8 [facility] Comment on above: Performed By: #### C BC #### [facility] [address] [place] [address] Dr. Reece Garg Lymphocytes/100 WBC (Bld) 20.8 % Normal 20.5-60.0 [facility] Comment on above: Performed By: #### C BC #### [facility] [address] [place] [address] Dr. Reece Garg MANUAL DIFF REQ NO Normal [facility] Comment on above: Performed By: #### C BC #### [facility] [address] [place] [address] Dr. Reece Garg MCH (RBC) [Entitic mass] 32.3 pg Normal 26.7-34.0 [facility] Comment on above: Performed By: #### C BC #### [facility] [address] [place] [address] Dr. Reece Garg MCHC (RBC) [Mass/Vol] 34.2 g/dL Normal 29.9-35.2 [facility] Comment on above: Performed By: #### C BC #### [facility] [address] [place] [address] Dr. Reece Garg MCV (RBC) [Entitic vol] 94.3 fL Normal 81.0-99.0 [facility] Comment on above: Performed By: #### C BC #### [facility] [address] [place] [address] Dr. Reece Garg MONO # 0.6 103/ul Normal 0.3-0.8 [facility] Comment on above: Performed By: #### C BC #### [facility] [address] [place] [address] Dr. Reece Garg Monocytes/100 WBC (Bld) 5.3 % Normal 1.7-12.0 [facility] Comment on above: Performed By: #### C BC #### [facility] [address] [place] [address] Dr. Reece Garg NEUT # 8.1 103/ul Critically high 1.4-6.5 [facility] Comment on above: Performed By: #### C BC #### [facility] [address] [place] [address] Dr. Reece Garg Neutrophils/100 WBC (Bld) 72.6 % Normal 43.0-75.0 [facility] Comment on above: Performed By: #### C BC #### [facility] [address] [place] [address] Dr. Reece Garg Platelet mean volume (Bld) [Entitic vol] 10.2 fL Normal 9.5-13.5 [facility] Comment on above: Performed By: #### C BC #### [facility] [address] [place] [address] Dr. Reece Garg PLT 163 103/ul Normal 150-450 [facility] Comment on above: Performed By: #### C BC #### [facility] [address] [place] [address] Dr. Reece Garg RBC 4.00 106/ul Critically low 4.20-5.40 [facility] Comment on above: Performed By: #### C BC #### [facility] [address] [place] [address] Dr. Reece Garg WBC 11.1 103/ul Critically high 4.0-11.0 [facility] Comment on above: Performed By: #### C BC #### [facility] [address] [place] [address] Dr. Reece Garg BASO # 0.0 103/ul Normal 0.0-0.1 [facility] Comment on above: Performed By: #### C BC #### [facility] [address] [address] [address] Reece Garg Basophils/100 WBC (Bld) 0.3 % Normal 0.2-2.0 [facility] Comment on above: Performed By: #### C BC #### [facility] [address] [place] [address] Dr. Reece Garg EO # 0.1 103/ul Normal 0.0-0.7 [facility] Comment on above: Performed By: #### C BC #### [facility] [address] [place] [address] Dr. Reece Garg Eosinophils/100 WBC (Bld) 0.7 % Critically low 0.9-7.0 [facility] Comment on above: Performed By: #### C BC #### [facility] [address] [place] [address] Dr. Reece Garg Erythrocyte distribution width (RBC) [Ratio] 12.0 % Normal 11.0-15.0 [facility] Comment on above: Performed By: #### C BC #### [facility] [address] [place] [address] Dr. Reece Garg Hematocrit (Bld) [Volume fraction] 41.4 % Normal 36.0-48.0 [facility] Comment on above: Performed By: #### C BC #### [facility] [address] [place] [address] Dr. Reece Garg Hemoglobin (Bld) [Mass/Vol] 14.3 g/dL Normal 12.0-16.0 [facility] Comment on above: Performed By: #### C BC #### [facility] [address] [place] [address] Dr. Reece Garg IG # 0.05 10e3/ul Critically high 0.00-0.03 [facility] Comment on above: Performed By: #### C BC #### [facility] [address] [place] [address] Dr. Reece Garg IG % 0.3 % Normal 0.0-0.5 [facility] Comment on above: Performed By: #### C BC #### [facility] [address] [place] [address] Dr. Reece Garg LYMPH # 1.6 103/ul Normal 1.2-3.8 [facility] Comment on above: Performed By: #### C BC #### [facility] [address] [place] [address] Dr. Reece Garg Lymphocytes/100 WBC (Bld) 10.6 % Critically low 20.5-60.0 [facility] Comment on above: Performed By: #### C BC #### [facility] [address] [place] [address] Dr. Reece Garg MANUAL DIFF REQ NO Normal [facility] Comment on above: Performed By: #### C BC #### [facility] [address] [place] [address] Dr. Reece Garg MCH (RBC) [Entitic mass] 32.1 pg Normal 26.7-34.0 [facility] Comment on above: Performed By: #### C BC #### [facility] [address] [place] [address] Dr. Reece Garg MCHC (RBC) [Mass/Vol] 34.5 g/dL Normal 29.9-35.2 [facility] Comment on above: Performed By: #### C BC #### [facility] [address] [place] [address] Dr. Reece Garg MCV (RBC) [Entitic vol] 93.0 fL Normal 81.0-99.0 [facility] Comment on above: Performed By: #### C BC #### [facility] [address] [place] [address] Dr. Reece Garg MONO # 0.7 103/ul Normal 0.3-0.8 [facility] Comment on above: Performed By: #### C BC #### [facility] [address] [place] [address] Dr. Reece Garg Monocytes/100 WBC (Bld) 4.7 % Normal 1.7-12.0 [facility] Comment on above: Performed By: #### C BC #### [facility] [address] [address] [address] Reece Garg NEUT # 12.9 103/ul Critically high 1.4-6.5 [facility] Comment on above: Performed By: #### C BC #### [facility] [address] [address] [address] Reece Garg Neutrophils/100 WBC (Bld) 83.4 % Critically high 43.0-75.0 [facility] Comment on above: Performed By: #### C BC #### [facility] [address] [place] [address] Dr. Reece Garg Platelet mean volume (Bld) [Entitic vol] 10.4 fL Normal 9.5-13.5 [facility] Comment on above: Performed By: #### C BC #### [facility] [address] [place] [address] Dr. Reece Garg PLT 194 103/ul Normal 150-450 [facility] Comment on above: Performed By: #### C BC #### [facility] [address] [place] [address] Dr. Reece Garg RBC 4.45 106/ul Normal 4.20-5.40 [facility] Comment on above: Performed By: #### C BC #### [facility] [address] [place] [address] Dr. Reece Garg WBC 15.4 103/ul Critically high 4.0-11.0 [facility] Comment on above: Performed By: #### C BC #### [facility] [address] [place] [address] ABD/PELV W CONon [...] LAVON ELIZALDE Date: 2023-04-03 01:36 Normal [facility] ER URINE PROFILEon 3 Bilirubin Ql (U) Negative Normal NEGATIVE [facility] Comment on above: Performed By: #### P REGU, ERUR #### [facility] [address] [place] [address] Dr. Reece Garg Clarity (U) CLEAR Normal CLEAR [facility] Comment on above: Performed By: #### P REGU, ERUR #### [facility] [address] [place] [address] Dr. Reece Garg Color (U) LT. YELLOW Normal YELLOW [facility] Comment on above: Performed By: #### P REGU, ERUR #### [facility] [address] [place] [address] Dr. Yilan Garg ERUAHD A micrscopic examination will be performed if indicated. Normal [facility] Comment on above: Performed By: #### P REGU, ERUR #### [facility] [address] [address] [address] Reece Garg Glucose Ql (U) Negative Normal NEGATIVE [facility] Comment on above: Performed By: #### P REGU, ERUR #### [facility] [address] [address] [address] Reece Garg Hemoglobin Ql (U) Negative Normal NEGATIVE [facility] Comment on above: Performed By: #### P REGU, ERUR #### [facility] [address] [address] [address] Reece Garg Ketones Ql (U) 15 mg/dl Abnormal NEGATIVE [facility] Comment on above: Performed By: #### P REGU, ERUR #### [facility] [address] [place] [address] Dr. Reece Garg LEUKOCYTES Negative Normal NEGATIVE [facility] Comment on above: Performed By: #### P REGU, ERUR #### [facility] [address] [address] [address] Reece Garg Nitrite Ql (U) Negative Normal NEGATIVE [facility] Comment on above: Performed By: #### P REGU, ERUR #### [facility] [address] [place] [address] Dr. Reece Garg pH (U) 5.5 [pH] Normal 5-9 [facility] Comment on above: Performed By: #### P REGU, ERUR #### [facility] [address] [address] [address] Reece Garg SPEC GRAVITY <=1.005 Abnormal 1.005-<=1.025 [facility] Comment on above: Performed By: #### P REGU, ERUR #### [facility] [address] [place] [address] Dr. Reece Garg UA PROTEIN Negative Normal NEGATIVE/ TRACE [facility] Comment on above: Performed By: #### P REGU, ERUR #### [facility] [address] [address] [address] Reece Garg UR MICRO IND NOT INDICATED Normal [facility] Comment on above: Performed By: #### P REGU, ERUR #### [facility] [address] [address] [address] Reece Garg Urobilinogen Qn (U) 0.2 {Dariel'U}/dL Normal 0.2 - 1. 0 [facility] Comment on above: Performed By: #### P REGU, ERUR #### [facility] [address] [address] [address] Reece Garg LIPASEon 04-03-2023 Lipase [Catalytic activity/Vol] 62.0 U/L Critically low 73.0-393.0 [facility] Comment on above: Performed By: #### L IPA, ANDERSON ####[facility] [id number] [address]Dr. Reece Garg MONOon 04-03-2023 Monocytes (Bld) [#/Vol] Negative Normal NEGATIVE [facility] Comment on above: Performed By: #### M JOSE DANIEL #### [facility] [address] [address] [address] Reece Garg URon 04-03-2023 , QUAL Negative Normal NEGATIVE [facility] Comment on above: Performed By: #### P REGU, ERUR #### [facility] [address] [address] [address] Reece Garg PROF 14(COMP METB)on 023 Albumin [Mass/Vol] 3.3 g/dL Critically low 3.4-5.0 [facility] Comment on above: Performed By: #### C MP #### [facility] [address] [place] [address] Dr. Reece Garg Albumin/Globulin [Mass ratio] 1.0 {ratio} Normal [facility] Comment on above: Performed By: #### C MP #### [facility] [address] [address] [address] Reece Garg ALP [Catalytic activity/Vol] 38 U/L Critically low 46-116 [facility] Comment on above: Performed By: #### C MP #### [facility] [address] [address] [address] Reece Garg ALT [Catalytic activity/Vol] 16 U/L Normal 14-59 [facility] Comment on above: Performed By: #### C MP #### [facility] [address] [address] [address] Reece Garg Anion gap [Moles/Vol] 10.7 mmol/L Normal [facility] Comment on above: Performed By: #### C MP #### [facility] [address] [address] [address] Reece Garg AST [Catalytic activity/Vol] 10 U/L Critically low 15-37 [facility] Comment on above: Performed By: #### C MP #### [facility] [address] [place] [address] Dr. Reece Garg Bilirubin [Mass/Vol] 1.0 mg/dL Normal 0.2-1.0 [facility] Comment on above: Performed By: #### C MP #### [facility] [address] [address] [address] Reece Garg Calcium [Mass/Vol] 8.2 mg/dL Critically low 8.5-10.1 [facility] Comment on above: Performed By: #### C MP #### [facility] [address] [address] [address] Reece Garg Chloride [Moles/Vol] 106 mmol/L Normal 98-107 [facility] Comment on above: Performed By: #### C MP #### [facility] [address] [address] [address] Reece Garg CO2 [Moles/Vol] 27.0 mmol/L Normal 21.0-32.0 [facility] Comment on above: Performed By: #### C MP #### [facility] [address] [address] [address] Reece Garg Creatinine [Mass/Vol] 0.77 mg/dL Normal 0.55-1.02 [facility] Comment on above: Performed By: #### C MP #### [facility] [address] [address] [address] Reece Garg EGFR-AF KENYAN >60 Normal >=60 [facility] Comment on above: Performed By: #### C MP #### [facility] [address] [address] [address] Reece Garg EGFR-NON AF KENYAN >60 Normal >=60 [facility] Comment on above: Performed By: #### C MP #### [facility] [address] [address] [address] Reece Garg Globulin (S) [Mass/Vol] 3.3 g/dL Normal [facility] Comment on above: Performed By: #### C MP #### [facility] [address] [place] [address] Dr. Reece Garg Glucose [Mass/Vol] 102 mg/dL Normal 74-106 [facility] Comment on above: Performed By: #### C MP #### [facility] [address] [address] [address] Reece Garg Potassium [Moles/Vol] 3.7 mmol/L Normal 3.5-5.1 [facility] Comment on above: Performed By: #### C MP #### [facility] [address] [place] [address] Dr. Reece Garg Protein [Mass/Vol] 6.6 g/dL Normal 6.4-8.2 [facility] Comment on above: Performed By: #### C MP #### [facility] [address] [place] [address] Dr. Reece Garg Sodium [Moles/Vol] 140 mmol/L Normal 136-145 [facility] Comment on above: Performed By: #### C MP #### [facility] [address] [address] [address] Reece Garg Urea nitrogen [Mass/Vol] 8.0 mg/dL Normal 7.0-18.0 [facility] Comment on above: Performed By: #### C MP #### [facility] [address] [address] [address] Reece Garg Urea nitrogen/Creatinine [Mass ratio] 10.4 mg/mg Normal [facility] Comment on above: Performed By: #### C MP #### [facility] [address] [address] [address] Reece Garg PROTIMEon 04-03-2023 INR Coag (PPP) [Relative time] 1.06 {INR} Normal [facility] Comment on above: Performed By: #### P TT, PT #### [facility] [address] [place] [address] Dr. Reece Garg INR GUIDELINES SEE BELOW Normal [facility] Comment on above: Result Comment: JJ RED INR: 2.0 - 3.0 CONDITIONS NOT LISTED BELOW 2.5 - 3.5 FOR PROSTHETIC HEART VALVE REPLACEMENT 2.5 - 3.5 RECURRENT THROMBOSIS Performed By: #### P TT, PT #### [facility] [address] [place] [address] Dr. Reece Garg PT Coag (PPP) [Time] 11.2 s Normal 9.0-11.6 [facility] Comment on above: Performed By: #### P TT, PT #### [facility] [address] [place] [address] Dr. Reece Garg PTTon 04-03-2023 aPTT Coag (Bld) [Time] 28.1 s Normal 22.3-36.2 [facility] Comment on above: Performed By: #### P TT, PT #### [facility] [address] [place] [address] Dr. Reece Garg PAP ACOG PANEL 2: 30 to 65on 07-28-2022 . . Normal [facility] Comment on above: Result Comment: Perf ormed at: WB Performed By: #### [id number] ####[facility] [address] [address]Dr. Reece Garg Age Gdln ACOG Testing 30-65 Normal [facility] Comment on above: Performed By: #### [id number] ####[facility] [address] [address]Dr. Reece Garg DIAGNOSIS: Comment Normal [facility] Comment on above: Result Comment: NEGA TIVE FOR INTRAEPITHELIAL LESION OR MALIGNANCY. Performed at: WB Performed By: #### [id number] ####[facility] [address] [address]Dr. Reece Garg HPV Aptima Negative Normal Negative [facility] Comment on above: Result Comment: This nucleic acid amplification test detects fourteen high-risk HPV types (16,18,31,33,35,39,45,51,52,56,58,59,66,68) without differentiation. Performed at: =G Performed By: #### [id number] ####[facility] [address] [address]DrHardik Garg Methodology: Comment Normal [facility] Comment on above: Result Comment: This liquid based ThinPrep(R) pap test was screened with the use of an image guided system. Performed at: WB Performed By: #### [id number] ####[facility] [address] [place], [place] [address]DrHardik Garg Note: Comment Normal [facility] Comment on above: Result Comment: The Pap smear is a screening test designed to aid in the detection of premalignant and malignant conditions of the uterine cervix. It is not a diagnostic procedure and should not be used as the sole means of detecting cervical cancer. Both false-positive and false-negative reports do occur. . Performed at: WB Performed By: #### [id number] ####[facility] [address] [place], [place] [address]DrHardik Garg Performed by: Comment Normal [facility] Comment on above: Result Comment: Alexandra Cortez, Contract Administration Specialist (ASCP) Performed at: WB Performed By: #### [id number] ####[facility] [address] [address]DrHardik Garg Specimen adequacy: Comment Normal [facility] Comment on above: Result Comment: Sati sfactory for evaluation. No endocervical component is identified. Performed at: WB Performed By: #### [id number] ####[facility] [address] [place], [place] [address]KgDr. Reece Garg VAGINITIS/VAGINOSIS DNA PROB Erwin 07-24-2022 Mala species Negative Normal Negative [facility] Comment on above: Performed By: #### V AGINT #### [facility] [address] [address] [address] Reece Garg Gardnerella vaginalis Positive Abnormal Negative [facility] Comment on above: Performed By: #### V AGINT #### [facility] [address] [address] [address] Reece Garg Trichomonas vaginalis Negative Normal Negative [facility] Comment on above: Performed By: #### V AGINT #### [facility] [address] [address] [address] Reece Garg Consenton 06-03-2020 Consent [id number] 1.00CD:127 Normal [facility] Encounters Encounter Date Encounter Type Care Provider Facility Start: 04-04-2024 End: 04-04-2024 ambulatory ADELFO PEREZ Not Available Start: 02-16-2024 End: 02-16-2024 ambulatory THERESA DAVIS Not Available Start: 02-10-2024 ambulatory [facility] Start: 02-10-2024 End: 02-10-2024 Office outpatient visit 15 minutes Jani Bridges MD Work Phone: [facility] Comment on above: Acute deep vein thro mbosis (DVT) of iliac vein of left lower extremity ([facility]) (Primary Dx); May-Thurner syndrome Start: 01-31-2024 End: 01-31-2024 ambulatory ANGELIA TREVIÑO Not Available Start: 01-26-2024 End: 01-26-2024 Evaluation and management of inpatient PAUL S INES [facility] Start: 01-24-2024 End: 01-26-2024 Evaluation and management of inpatient [facility] Start: 01-24-2024 End: 01-24-2024 ambulatory DL BUCK [facility] Start: 01-24-[facility]24 [facility] Start: 01-23-2024 End: 01-26-2024 Evaluation and management of inpatient TSEPHEN STOKES [facility] Start: 01-23-2024 End: 01-25-2024 [facility] Shaheed BRIDGES [facility] Start: 01-20-2024 End: 01-20-2024 ambulatory ANDERSON FRIED Not Available Start: 01-07-2024 End: 01-07-2024 ambulatory Angelia Hudson Facility:[facility] Start: 12-14-2023 End: 12-14-2023 ambulatory ANGELIA HUDSON Not Available Start: 11-04-2023 End: 11-04-2023 ambulatory ANGELIA HUDSON Not Available Start: 04-03-2023 End: 04-03-[address] USMAN ALVAREZ . Facility: Start: 07-26-2022 Encounter for gynecological examination (general) (routine) without abnormal findings DR EARLENE MCDONOUGH . [facility] Start: 07-22-2022 End: 07-22-[address] EARLENE MCDONOUGH . Facility: Start: 07-22-2022 End: 07-22-2022 Encounter for gynecological examination (general) (routine) without abnormal findings DR EARLENE MCDONOUGH . Facility: Procedures Date Procedure Procedure Detail Performing Clinician Start: 02-10-2024 Follow-up visit Follow-up JANI Hummel ADDISON Start: 01-23-2024 Adult depression screening assessment Jani Bridges MD Work Phone: Plan of Treatment Date Care Activity Detail Author Start: 01-24-2025 Adult BMI Screening Adult BMI Screen ing [facility] Start: 01-23-2025 Tobacco Screening Tobacco Screening [facility] Start: 01-22-2025 Depression Screening Depression Scre ening [facility] Start: 02-25-2024 End: 02-10-2025 US.doppler Thoracic and Abdominal Aorta and Inferior Vena Cava and Illiac vessels Vas IVC/iliac duplex complete Vascular Ultrasound Routine Acute deep vein thrombosis (DVT) of iliac vein of left lower extremity (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 Expected: 02/25/2024 (Approximate), Expires: 02/10/2025 [employer] Work Phone: Comment on above: Expected: 02/25/2024 (Approximate), Expires: 02/10/2025 Start: 07-16-2023 Influenza vaccination Influenza Vacc ine [facility] Start: 02-14-2019 DTaP,Tdap and Td Vaccines (6 - Tdap) DTaP,Tdap and Td Vaccines (6 - Tdap) [facility] Start: 2013 Screening for malign ant neoplasm of cervix Pap Smear [facility] Start: 2010 Adult BMI Follow Up Plan Adult BMI Follow Up Plan [facility] Payers Date Payer Category Payer Self-pay 2022 Unknown [employer] OUT OF STATE PPO/TRUST [id number] 2022-Present [phone] [address] [place] [address] [id number] 1992 Unknown [id number] [id number] 1992 Unknown [id number] 2.16.840.1.920866.3.579.2.593 1992 Unknown [id number] 2.16.840.1.912318.3.579.2.1286 1992 Unknown [id number] 2.16.840.1.569552.3.579.2.1286 1992 Unknown [id number] 2.16.840.1.738210.3.579.2.1286 1992 Unknown [id number] 2.16.840.1.227131.3.579.2.1286 1992 Unknown [id number] 2.16.840.1.885050.3.579.2.1286 1992 Unknown [id number] 2.16.840.1.562572.3.579.2.1286 1992 Unknown [id number] 2.16.840.1.843497.3.579.2.1286 1992 Unknown [id number] 2.16.840.1.281989.3.579.2.1286 1992 Unknown [id number] 2.16.840.1.103120.3.579.2.9 1992 Unknown [id number] 2.16.840.1.826020.3.579.2.9 1992 Unknown [id number] 2.16.840.1.835154.3.579.2.9 1992 Unknown [id number] 2.16.840.1.457404.3.579.2.9 1992 Unknown [id number] 2.16.840.1.677430.3.579.2.9 1992 Unknown [id number] 2.16.840.1.314744.3.579.2.1259 1959 Medicaid [id number] 1959 Unknown [id number] 1959 Unknown [id number] 1959 Unknown [id number] Social History Date Type Detail Facility Start: 01-23-2024 Tobacco smoking stat [facility] Ex-smoker [facility] History of tobacco use Current smoker [facility] History of tobacco use Cigarette Smoker [facility] Start: 01-23-2024 Tobacco use and exposure Smokeless tobacco non-user [facility] Start: 01-24-2024 Alcohol intake Ex-drinker (finding) [facility] Start: 01-23-2024 End: 01-24-2024 History of Social function [facility] Start: 01-23-2024 End: 01-24-2024 [facility] Utilities [facility] Has the Duriana, or [employer] threatened to shut off services in your home in past 12Mo No [facility] How often to you hav e a drink containing alcohol? Never [facility] How many standard drinks containing alcohol do you have on a typical day? [facility] not drink [facility] Start: 1992 Sex Assigned At Not on file P [facility] [employer] [facility] Medical Equipment Procedure Code Equipment Code Equipment Origin al Text Equipment Identifier Dates Stent Vsc 18mm X 100mm Venous Nitinol Slf Expanding Abre - [id number] Start: 01-24-2024 History of Present illness Narrative 02-10-2024 Jani Bridges MD - 02/10/2024 2:40 PM EDT Note Date & Type Note Facility 02-10-2024 History of Presen t illness Narrative Images from the original note were not included. [facility] [address] [facility] [id number] Subjective: Patient ID: Kimberly Silverman is a [...] Problem List Diagnosis DVT (deep venous thrombosis) ([facility]) May-Thurner syndrome Current Outpatient Medications: acetaminophen (TYLENOL [...] Bridges MD, [place] documented in this encounter [facility] Evaluation note Note Date & Type Note [...] syndrome Procedures Vas IVC/iliac duplex complete Jani Brigdes MD [address], [place] [address] Referral ID Status Reason Start Date Expiration Date V isits Requested Visits Authorized [id number] Pending Review 02/11/2024 02/10/2025 1 1 Additional Source Comments INFORMATION SOURCE (unrecogn ized section and content) DATE CREATED AUTHOR 06/08/2020 [facility] DATE CREATED AUTHOR AUTHOR'S ORGANIZ ATION 04/23/2023 [facility] DATE CREATED AUTHOR AUTHOR'S ORGANIZ ATION 01/16/2024 [facility] DATE CREATED AUTHOR AUTHOR'S ORGANIZ ATION 01/27/2024 [facility] DATE CREATED AUTHOR AUTHOR'S ORGANIZ ATION 02/15/2024 [facility] DATE CREATED AUTHOR AUTHOR'S ORGANIZ ATION 04/06/2024 [facility] EPIC Reason for Visit (unrecogniz ed section and content) Reason Comments Follow-up Thrombectomy lle. DV T and iliac stenting. Per patient she notes some discomfort to lle with mi Care Teams (unrecognized sec tion and content) [employer] Relationship Specialty Start Date End Date Usman Alvarez MD [address] [place] [address] PCP - General 02/09/24 FOR RECORDS PERTAINING [...] BE BASED ON THE PRIMARY CLINICAL RECORDS. [facility]. provides no warranty or guarantee of the accuracy or completeness of information in this document.
== END 2024-04-17 11:10 | disposition home or self-care (01) ==
LOC: US 11:09
PROVIDERS: PCP Family Medicine; Visit Provider Student in an Organized Health Care Education/Training Program
DX: I82.422 Acute embolism and thrombosis of left iliac vein (principal)
CPT/HCPCS: 93979

== ENCOUNTER 2024-05-05 08:26 | Outpatient (OUT) | payer BC, SELFPAY ==
--- OUTSIDE RECORDS SUMMARY | 2024-05-05 08:29 | XMS_ITS | CCD ---
Author Organization [facility] Care Team Providers Care Harmonica Maker Name Role Phone RAIN ., DR MARY Attending Unavailable RAIN ., DR MARY Admitting Unavailable RAIN ., DR MARY Primary Care Unavailable RAIN ., DR MARY Consulting Unavailable SARAI WILKINS Consulting Unavailable LAVON ELIZALDE Consulting Unavailable SISTER, CUCA Consulting Unavailable ARTURO II, LUL Consulting Unavailable VERNELL ., DL Consulting Unavailable KARTARAN ., DR HENAO Admitting Unavailabl e KARTARAN [...] Unavailable JANI BRIDGES Attending Unavailable JANI BRIDGES F Referring Unavailable Usman Alvarez MD Primary Care Provider [phone] ANGELIA TREVIÑO Attending Unavailable ANDERSON FRIED Attending Unavailable ANGELIA TREVIÑO Attending Unavailable ANGELIA TREVIÑO Attending Unavailable THERESA DAVIS Attending Unavailable ADELFO PEREZ Attending Unavailable USMAN ALVAREZ Referring Unavailable JANI BRIDGES Attending Unavailable USMAN ALVAREZ Primary Care Unavailable JANI BRIDGES Attending Unavailable USMAN ALVAREZ Referring Unavailable USMAN ALVAREZ Primary Care Unavailable Medications Current Medications Medication Drug Class(es) [...] in the morning. 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, other extremity] Onset: 04-27-2024 Chronic Residual codes; unclassified (1 source) Acquired absence of both cervix and uterus; Translations: [ACQUIRED ABSENCE BOTH CERVIX AND UTERUS] Onset: 04-08-2023 Episodic Substance-related disorders (1 source) Nicotine dependence, cigarettes, uncomplicated; Translations: [NICOTINE DEPEND CIGARETTES UNCOMP] Onset: 04-08-2023 Chronic Unclassified (1 source) Extensive DVT with phlegmasia Onset: 01-23-2024 Unclassified (1 source) Acute deep vein thrombosis (DVT) of iliac vein of left lowe Onset: 04-27-2024 Past or Other Problems Problem Classification Problem Date Documented Da te Episodic/Chronic Immunizations and screening for infectious disease (1 source) Encounter for screening for human papillomavirus (HPV); Translations: [ENC SCREENING HUMAN PAPILLOMAVIRUS] Onset: 07-26-2022 Episodic Mood disorders (1 source) Mood disorders Onset: 01-23-2024 01-23-2024 Phlebitis; thrombophlebitis and thromboembolism (5 sources) Acute embolism and thrombosis of left iliac vein; Translations: [Acute embolism and thrombosis of unspecified deep veins of unspecified lower extremity] Onset: 01-23-2024 02-11-2024 Episodic Residual codes; unclassified (1 source) Pain, unspecified; Translations: [Pain, unspecified] Onset: 01-24-2024 Episodic Results Test Name Value Interpretation Reference Range Facility BASIC METABOLIC PANLon 01-24 Anion gap [Moles/Vol] 7 mmol/L Normal 5-15 [facility] Comment on above: Performed By: #### C BCA, PINR, 55395-0, BMP #### [facility] ([id number]) [address], [address] [place] [address] Calcium [Mass/Vol] 8.7 mg/dL Normal 8.5-10.5 [facility] Comment on above: Performed By: #### C BCA, PINR, 59559-8, BMP #### [facility] ([id number]) [address], [address] [place] [address] Chloride [Moles/Vol] 106 mmol/L Normal 98-109 [facility] Comment on above: Performed By: #### Anastasiya BCA, PINR, 92422-8, BMP #### [facility] ([id number]) [address], [address] [place] [address] CO2 [Moles/Vol] 23 mmol/L Normal 22-32 [facility] Comment on above: Performed By: #### C BCA, PINR, 67532-6, BMP #### [facility] ([id number]) [address], [address] [place] [address] Creatinine [Mass/Vol] 0.57 mg/dL Normal 0.40-1.00 [facility] Comment on above: Result Comment: METH OD TRACEABLE TO IDMS STANDARD Performed By: #### C BRENNON, PINR, 44415-1, BMP #### [facility] ([id number]) [address] [address] [place] [address] eGFR (CKD-EPI) NON-RACE DEPENDENT >90 Normal >59 [facility] Comment on above: Result Comment: Reported eGFR is based on the CKD-EPI 2020 equation that does not use a race coefficient. Performed By: #### C BCA, PINR, 94958-0, BMP #### [facility] ([id number]) [address], [facility] [address] [place] [address] Glucose [Mass/Vol] 139 mg/dL High 65-99 [facility] Comment on above: Performed By: #### C BCA, PINR, 77599-5, BMP #### [facility] ([id number]) [address] [address] Potassium [Moles/Vol] 4.3 mmol/L Normal 3.5-5.0 [facility] Comment on above: Performed By: #### C BRENNON, PINR, 67196-5, BMP #### [facility] ([id number]) [address] [address] Sodium [Moles/Vol] 136 mmol/L Normal 134-146 [facility] Comment on above: Performed By: #### C BCA, PINR, 86065-5, BMP #### [facility] ([id number]) [address] [address] Urea nitrogen [Mass/Vol] 6 mg/dL Normal 5-23 [facility] Comment on above: Performed By: #### C BCA, PINR, 00961-4, BMP #### [facility] ([id number]) [address] [address] CBC AND AUTO DIFFon 01-25-20 24 ABSOLUTE BASOPHIL 0.0 X10E9/L Normal 0.0-0.2 [facility] Comment on above: Performed By: #### C SADAF WILLETT, 81258-0, BMP #### [facility] ([id number]) [address], [address] [place] [address] ABSOLUTE NEUTROPHIL 2.9 X10E9/L Normal 1.5-6.6 [facility] Comment on above: Performed By: #### C SADAF WILLETT, 82112-8, BMP #### [facility] ([id number]) [address], [address] [place] [address] Basophils/100 WBC (Bld) 0.1 % Normal [facility] Comment on above: Performed By: #### C SADAF WILLETT, 19380-8, BMP #### [facility] ([id number]) [address], [address] [place] [address] Eosinophils (Bld) [#/Vol] 0.0 10*3/uL Normal 0.0-0.4 [facility] Comment on above: Performed By: #### SADAF Langford BCA, 72308-7, BMP #### [facility] ([id number]) [address], [address] [place] [address] Eosinophils/100 WBC (Bld) 0.0 % Normal [facility] Comment on above: Performed By: #### SADAF Langford BCA, 77728-1, BMP #### [facility] ([id number]) [address], [address] [place] [address] Erythrocyte distribution width (RBC) [Ratio] 11.8 % Normal 11.5-15.0 [facility] Comment on above: Performed By: #### PARDEEP Langford BCAR, 72576-0, BMP #### [facility] ([id number]) [address], [address] [place] [address] Hematocrit (Bld) [Volume fraction] 35.5 % Normal 35-47 [facility] Comment on above: Performed By: #### C SADAF WILLETT, 92526-1, BMP #### [facility] ([id number]) [address] [address] [place] [address] Hemoglobin (Bld) [Mass/Vol] 12.3 g/dL Normal 11.7-15.5 [facility] Comment on above: Performed By: #### C BRENNON PINSlim, 39864-7, BMP #### [facility] ([id number]) [address], [facility] [address] [place] [address] Lymphocytes (Bld) [#/Vol] 0.4 10*3/uL Low 1.0-3.5 [facility] Comment on above: Performed By: #### Anastasiya WILLETT PINSlim, 82274-9, BMP #### [facility] ([id number]) [address], [facility] [address] [place] [address] Lymphocytes/100 WBC (Bld) 13.1 % Normal [facility] Comment on above: Performed By: #### Anastasiya WILLETT PINR, 38611-4, BMP #### [facility] ([id number]) [address], [facility] [address] [place] [address] MCH (RBC) [Entitic mass] 32.3 pg Normal 27-34 [facility] Comment on above: Performed By: #### Anastasiya WILLETT PINR, 53122-6, BMP #### [facility] ([id number]) [address], [address] [place] [address] MCHC (RBC) [Mass/Vol] 34.6 g/dL Normal 32-36 [facility] Comment on above: Performed By: #### Anastasiya WILLETT PINR, 63445-7, BMP #### [facility] ([id number]) [address], [address] [place] [address] MCV (RBC) [Entitic vol] 94 fL Normal 80-100 [facility] Comment on above: Performed By: #### C BRENNON, PINR, 61844-4, BMP #### [facility] ([id number]) [address], [address] [place] [address] Monocytes (Bld) [#/Vol] 0.1 10*3/uL Normal 0-0.9 [facility] Comment on above: Performed By: #### C BRENNON, PINR, 15053-0, BMP #### [facility] ([id number]) [address], [address] [place] [address] Monocytes/100 WBC (Bld) 2.4 % Normal [facility] Comment on above: Performed By: #### Anastasiya WILLETT, PINR, 96115-6, BMP #### [facility] ([id number]) [address], [address] [place] [address] Neutrophils/100 WBC (Bld) 84.4 % Normal [facility] Comment on above: Performed By: #### Anastasiya WILLETT, PINR, 25740-2, BMP #### [facility] ([id number]) [address], [address] [place] [address] Platelet mean volume (Bld) [Entitic vol] 9.1 fL Normal 7-12 [facility] Comment on above: Performed By: #### Anastasiya WILLETT, PINR, 67812-6, BMP #### [facility] ([id number]) [address], [address] [place] [address] Platelets (Bld) [#/Vol] 142 10*3/uL Low 150-450 [facility] Comment on above: Performed By: #### Anastasiya WILLETT, PINR, 98431-6, BMP #### [facility] ([id number]) [address], [address] [place] [address] RBC COUNT 3.79 X10E12/L Low 3.80-5.20 [facility] Comment on above: Performed By: #### SADAF Langford BCA, 44199-2, BMP #### [facility] ([id number]) [address] [facility] [place] [address] WBC (Bld) [#/Vol] 3.4 10*3/uL Low 4.0-11.0 [facility] Comment on above: Performed By: #### SADAF Langford BCA, 58911-7, BMP #### [facility] ([id number]) [address] [address] [facility], [address] [place] [address] Heparin unfractionated Chrom ogenic method Qn (PPP)on 01-25-2024 ANTI XA UFH 0.68 IU/mL Normal 0.30-0.70 [facility] Comment on above: Result Comment: Opti mal time for testing is 6 hrs post dosage This test is specific for monitoring patients on UFH, and is not recommended for use with other Anti-Xa medications. Performed By: #### SADAF Langford BCA, 31729-5, BMP #### [facility] ([id number]) [address] [facility], [address] [address] ANTI CARDIOLIPIN AB IGG IGA IGMon 01-24-2024 MELBA IgA <2.0 Normal 0-19.9 [facility] Comment on above: Performed By: #### Doreen SHUKLA #### [facility] ([id number]) [address] [facility] [place] [address] MELBA IgG <1.6 Normal 0-19.9 [facility] Comment on above: Performed By: #### Doreen SHUKLA #### [facility] ([id number]) [address] [facility] [place] [address] MELBA IgM <1.5 Normal 0-19.9 [facility] Comment on above: Performed By: #### Doreen SHUKLA #### [facility] ([id number]) [address], [address] [place] [address] BASIC METABOLIC PANLon 01-23 Anion gap [Moles/Vol] 8 mmol/L Normal 5-15 [facility] Comment on above: Performed By: #### 3 274-8, CBCA, BMP #### [facility] ([id number]) [address], [facility] [address] [place] [address] Calcium [Mass/Vol] 8.0 mg/dL Low 8.5-10.5 [facility] Comment on above: Performed By: #### 3 274-8, CBCA, BMP #### [facility] ([id number]) [address], [facility] [address] [place] [address] Chloride [Moles/Vol] 106 mmol/L Normal 98-109 [facility] Comment on above: Performed By: #### 3 274-8, CBCA, BMP #### [facility] ([id number]) [address], [address] [place] [address] CO2 [Moles/Vol] 22 mmol/L Normal 22-32 [facility] Comment on above: Performed By: #### 3 274-8, CBCA, BMP #### [facility] ([id number]) [address], [facility] [address] [place] [address] Creatinine [Mass/Vol] 0.53 mg/dL Normal 0.40-1.00 [facility] Comment on above: Result Comment: METH OD TRACEABLE TO IDMS STANDARD Performed By: #### 3 274-8, CBCA, BMP #### [facility] ([id number]) [address] [address] [place] [address] eGFR (CKD-EPI) NON-RACE DEPENDENT >90 Normal >59 [facility] Comment on above: Result Comment: Reported eGFR is based on the CKD-EPI 2020 equation that does not use a race coefficient. Performed By: #### 3 274-8, CBCA, BMP #### [facility] ([id number]) [address], [address] [place] [address] Glucose [Mass/Vol] 76 mg/dL Normal 65-99 [facility] Comment on above: Performed By: #### 3 274-8, CBCA, BMP #### [facility] ([id number]) [address], [address] [place] [address] Potassium [Moles/Vol] 3.8 mmol/L Normal 3.5-5.0 [facility] Comment on above: Performed By: #### 3 274-8, CBCA, BMP #### [facility] ([id number]) [address], [address] [place] [address] Sodium [Moles/Vol] 136 mmol/L Normal 134-146 [facility] Comment on above: Performed By: #### 3 274-8, CBCA, BMP #### [facility] ([id number]) [address], [address] [place] [address] Urea nitrogen [Mass/Vol] 10 mg/dL Normal 5-23 [facility] Comment on above: Performed By: #### 3 274-8, CBCA, BMP #### [facility] ([id number]) [address], [address] [place] [address] BETA-2 GP1 AB PANELon 2023 BETA-2 GP1 IgA <2.0 Normal 0.0-19.9 [facility] Comment on above: Performed By: #### C BCA, PINR, 48101-9, BMP #### [facility] ([id number]) [address], [address] [place] [address] BETA-2 GP1 IgG <1.4 Normal 0.0-19.9 [facility] Comment on above: Performed By: #### C BCA, PINR, 00881-7, BMP #### [facility] ([id number]) [address], [address] [place] [address] BETA-2 GP1 IgM <1.5 Normal 0.0-19.9 [facility] Comment on above: Performed By: #### C BRENNON PINR, 26660-7, BMP #### [facility] ([id number]) [address], [address] [place] [address] CBC AND AUTO DIFFon 01-24-20 ABSOLUTE BASOPHIL 0.0 X10E9/L Normal 0.0-0.2 [facility] Comment on above: Performed By: #### 3 274-8, CBCA, BMP #### [facility] ([id number]) [address], [facility] [address] [place] [address] ABSOLUTE NEUTROPHIL 3.7 X10E9/L Normal 1.5-6.6 [facility] Comment on above: Performed By: #### 3 274-8, CBCA, BMP #### [facility] ([id number]) [address], [address] [place] [address] Basophils/100 WBC (Bld) 0.4 % Normal [facility] Comment on above: Performed By: #### 3 274-8, CBCA, BMP #### [facility] ([id number]) [address], [address] [address] Eosinophils (Bld) [#/Vol] 0.2 10*3/uL Normal 0.0-0.4 [facility] Comment on above: Performed By: #### 3 274-8, CBCA, BMP #### [facility] ([id number]) [address], [address] [address] Eosinophils/100 WBC (Bld) 2.9 % Normal [facility] Comment on above: Performed By: #### 3 274-8, CBCA, BMP #### [facility] ([id number]) [address], [address] [address] Erythrocyte distribution width (RBC) [Ratio] 12.3 % Normal 11.5-15.0 [facility] Comment on above: Performed By: #### 3 274-8, CBCA, BMP #### [facility] ([id number]) [address], [address] [place] [address] Hematocrit (Bld) [Volume fraction] 36.4 % Normal 35-47 [facility] Comment on above: Performed By: #### 3 274-8, CBCA, BMP #### [facility] ([id number]) [address], [facility] [address] [place] [address] Hemoglobin (Bld) [Mass/Vol] 12.4 g/dL Normal 11.7-15.5 [facility] Comment on above: Performed By: #### 3 274-8, CBCA, BMP #### [facility] ([id number]) [address], [facility] [address] [place] [address] Lymphocytes (Bld) [#/Vol] 1.9 10*3/uL Normal 1.0-3.5 [facility] Comment on above: Performed By: #### 3 274-8, CBCA, BMP #### [facility] ([id number]) [address], [address] [address] Lymphocytes/100 WBC (Bld) 29.7 % Normal [facility] Comment on above: Performed By: #### 3 274-8, CBCA, BMP #### [facility] ([id number]) [address], [address] [place] [address] MCH (RBC) [Entitic mass] 32.5 pg Normal 27-34 [facility] Comment on above: Performed By: #### 3 274-8, CBCA, BMP #### [facility] ([id number]) [address], [address] [place] [address] MCHC (RBC) [Mass/Vol] 34.2 g/dL Normal 32-36 [facility] Comment on above: Performed By: #### 3 274-8, CBCA, BMP #### [facility] ([id number]) [address], [address] [place] [address] MCV (RBC) [Entitic vol] 95 fL Normal 80-100 [facility] Comment on above: Performed By: #### 3 274-8, CBCA, BMP #### [facility] ([id number]) [address], [address] [place] [address] Monocytes (Bld) [#/Vol] 0.5 10*3/uL Normal 0-0.9 [facility] Comment on above: Performed By: #### 3 274-8, CBCA, BMP #### [facility] ([id number]) [address], [address] [place] [address] Monocytes/100 WBC (Bld) 8.2 % Normal [facility] Comment on above: Performed By: #### 3 274-8, CBCA, BMP #### [facility] ([id number]) [address], [address] [place] [address] Neutrophils/100 WBC (Bld) 58.8 % Normal [facility] Comment on above: Performed By: #### 3 274-8, CBCA, BMP #### [facility] ([id number]) [address], [address] [place] [address] Platelet mean volume (Bld) [Entitic vol] 8.7 fL Normal 7-12 [facility] Comment on above: Performed By: #### 3 274-8, CBCA, BMP #### [facility] ([id number]) [address], [address] [place] [address] Platelets (Bld) [#/Vol] 128 10*3/uL Low 150-450 [facility] Comment on above: Performed By: #### 3 274-8, CBCA, BMP #### [facility] ([id number]) [address], [address] [place] [address] RBC COUNT 3.83 X10E12/L Normal 3.80-5.20 [facility] Comment on above: Performed By: #### 3 274-8, CBCA, BMP #### [facility] ([id number]) [address], [address] [address] WBC (Bld) [#/Vol] 6.4 10*3/uL Normal 4.0-11.0 [facility] Comment on above: Performed By: #### 3 274-8, CBCA, BMP #### [facility] ([id number]) [address], [address] [address] Heparin unfractionated Chrom ogenic method Qn (PPP)on 01-24-2024 ANTI XA UFH 0.47 IU/mL Normal 0.30-0.70 [facility] Comment on above: Result Comment: Opti mal time for testing is 6 hrs post dosage This test is specific for monitoring patients on UFH, and is not recommended for use with other Anti-Xa medications. Performed By: #### 3 274-8, CBCA, BMP #### [facility] ([id number]) [address] [address] dRVVT/dRVVT.excess phospholi pid Coag (PPP) [Ratio]on 01-24-2024 DILUTE VERONIKA'S VIPER VENOM Negative Normal [facility] Comment on above: Performed By: #### C BCA, PINR, 31609-9, BMP #### [facility] ([id number]) [address], [address] [place] [address] BASIC METABOLIC PANLon 01-22 Anion gap [Moles/Vol] 11 mmol/L Normal 5-15 [facility] Comment on above: Performed By: #### C BCA, PINR, 75214-3, BMP #### [facility] ([id number]) [address], [address] [place] [address] Calcium [Mass/Vol] 8.3 mg/dL Low 8.5-10.5 [facility] Comment on above: Performed By: #### C BCA, PINR, 94774-8, BMP #### [facility] ([id number]) [address], [facility] [address] [place] [address] Chloride [Moles/Vol] 106 mmol/L Normal 98-109 [facility] Comment on above: Performed By: #### C BCA, PINR, 47317-0, BMP #### [facility] ([id number]) [address] [address] CO2 [Moles/Vol] 21 mmol/L Low 22-32 [facility] Comment on above: Performed By: #### C BCA, PINR, 78261-1, BMP #### [facility] ([id number]) [address] [address] Creatinine [Mass/Vol] 0.65 mg/dL Normal 0.40-1.00 [facility] Comment on above: Result Comment: METH OD TRACEABLE TO IDMS STANDARD Performed By: #### C BCA, PINR, 68198-5, BMP #### [facility] ([id number]) [address] [address] eGFR (CKD-EPI) NON-RACE DEPENDENT >90 Normal >59 [facility] Comment on above: Result Comment: Reported eGFR is based on the CKD-EPI 2020 equation that does not use a race coefficient. Performed By: #### C BCA, PINR, 13861-6, BMP #### [facility] ([id number]) [address] [place] [address] Glucose [Mass/Vol] 78 mg/dL Normal 65-99 [facility] Comment on above: Performed By: #### C BCA, PINR, 58003-6, BMP #### [facility] ([id number]) [address], [address] [place] [address] Potassium [Moles/Vol] 3.9 mmol/L Normal 3.5-5.0 [facility] Comment on above: Performed By: #### C BRENNON PINR, 59452-1, BMP #### [facility] ([id number]) [address], [address] [place] [address] Sodium [Moles/Vol] 138 mmol/L Normal 134-146 [facility] Comment on above: Performed By: #### C BRENNON PINR, 66918-7, BMP #### [facility] ([id number]) [address], [address] [place] [address] Urea nitrogen [Mass/Vol] 11 mg/dL Normal 5-23 [facility] Comment on above: Performed By: #### C BRENNON PINR, 69709-4, BMP #### [facility] ([id number]) [address], [address] [place] [address] CBC AND AUTO DIFFon 03-10-20 24 ABSOLUTE BASOPHIL 0.0 X10E9/L Normal 0.0-0.2 [facility] Comment on above: Performed By: #### C BRENNON PINR, 84955-7, BMP #### [facility] ([id number]) [address], [address] [place] [address] ABSOLUTE NEUTROPHIL 6.6 X10E9/L Normal 1.5-6.6 [facility] Comment on above: Performed By: #### C BRENNON PINR, 73073-4, BMP #### [facility] ([id number]) [address], [address] [place] [address] Basophils/100 WBC (Bld) 0.3 % Normal [facility] Comment on above: Performed By: #### C BRENNON PINR, 93858-9, BMP #### [facility] ([id number]) [address], [address] [place] [address] Eosinophils (Bld) [#/Vol] 0.1 10*3/uL Normal 0.0-0.4 [facility] Comment on above: Performed By: #### C BRENNON PINR, 09685-7, BMP #### [facility] ([id number]) [address], [facility] [address] [place] [address] Eosinophils/100 WBC (Bld) 0.8 % Normal [facility] Comment on above: Performed By: #### C BRENNON, PINR, 41092-0, BMP #### [facility] ([id number]) [address] [address] [place] [address] Erythrocyte distribution width (RBC) [Ratio] 12.4 % Normal 11.5-15.0 [facility] Comment on above: Performed By: #### C BRENNON PINR, 70531-2, BMP #### [facility] ([id number]) [address], [facility] [address] [place] [address] Hematocrit (Bld) [Volume fraction] 39.4 % Normal 35-47 [facility] Comment on above: Performed By: #### Anastasiya WILLETT PINR, 08405-2, BMP #### [facility] ([id number]) [address], [facility] [address] [place] [address] Hemoglobin (Bld) [Mass/Vol] 13.8 g/dL Normal 11.7-15.5 [facility] Comment on above: Performed By: #### Anastasiya WILLETT, PINR, 75837-4, BMP #### [facility] ([id number]) [address] [address] [place] [address] Lymphocytes (Bld) [#/Vol] 1.9 10*3/uL Normal 1.0-3.5 [facility] Comment on above: Performed By: #### C BCA, PINR, 62513-3, BMP #### [facility] ([id number]) [address], [address] [place] [address] Lymphocytes/100 WBC (Bld) 20.6 % Normal [facility] Comment on above: Performed By: #### C BCA, PINR, 36223-8, BMP #### [facility] ([id number]) [address], [address] [place] [address] MCH (RBC) [Entitic mass] 32.7 pg Normal 27-34 [facility] Comment on above: Performed By: #### C BRENNON, PINR, 57285-1, BMP #### [facility] ([id number]) [address], [address] [place] [address] MCHC (RBC) [Mass/Vol] 34.9 g/dL Normal 32-36 [facility] Comment on above: Performed By: #### C BCA, PINR, 71817-9, BMP #### [facility] ([id number]) [address], [address] [place] [address] MCV (RBC) [Entitic vol] 94 fL Normal 80-100 [facility] Comment on above: Performed By: #### C BRENNON, PINR, 26397-8, BMP #### [facility] ([id number]) [address], [address] [place] [address] Monocytes (Bld) [#/Vol] 0.6 10*3/uL Normal 0-0.9 [facility] Comment on above: Performed By: #### C BCA, PINR, 57931-6, BMP #### [facility] ([id number]) [address], [address] [place] [address] Monocytes/100 WBC (Bld) 6.0 % Normal [facility] Comment on above: Performed By: #### C BCA, PINR, 25274-1, BMP #### [facility] ([id number]) [address], [address] [place] [address] Neutrophils/100 WBC (Bld) 72.3 % Normal [facility] Comment on above: Performed By: #### Anastasiya WILLETT, PINR, 96793-9, BMP #### [facility] ([id number]) [address], [address] [place] [address] Platelet mean volume (Bld) [Entitic vol] 8.4 fL Normal 7-12 [facility] Comment on above: Performed By: #### Anastasiya WILLETT, PINR, 64485-8, BMP #### [facility] ([id number]) [address], [address] [place] [address] Platelets (Bld) [#/Vol] 156 10*3/uL Normal 150-450 [facility] Comment on above: Performed By: #### Anastasiya WILLETT, PINR, 15480-3, BMP #### [facility] ([id number]) [address], [address] [place] [address] RBC COUNT 4.21 X10E12/L Normal 3.80-5.20 [facility] Comment on above: Performed By: #### Anastasiya WILLTET, PINR, 04696-1, BMP #### [facility] ([id number]) [address], [address] [place] [address] WBC (Bld) [#/Vol] 9.1 10*3/uL Normal 4.0-11.0 [facility] Comment on above: Performed By: #### Anastasiya WILLETT, PINR, 26714-9, BMP #### [facility] ([id number]) [address], [address] [place] [address] CT CTV ABD AND PELVISon 01-13 CT [...] Hill MD on 01/23/2024 4:56 PM Normal [facility] Heparin unfractionated Chrom ogenic method Qn (PPP)on 01-23-2024 ANTI XA UFH 0.44 IU/mL Normal 0.30-0.70 [facility] Comment on above: Result Comment: Opti mal time for testing is 6 hrs post dosage This test is specific for monitoring patients on UFH, and is not recommended for use with other Anti-Xa medications. Performed By: #### 3 274-8 #### [facility] ([id number]) [address] [place] [address] PROTIME AND INRon 01-23-2024 INR Coag (PPP) [Relative time] 1.1 {INR} Normal 0.8-1.1 [facility] Comment on above: Performed By: #### C BRENNON, PINR, 74415-3, [facility] #### [facility] ([id number]) [address], [address] [place] [address] PT Coag (PPP) [Time] 12.3 s Normal 9.8-13.2 [facility] Comment on above: Performed By: #### C BCA, PINR, 78423-1, BMP #### [facility] ([id number]) [address], [address] [place] [address] aPTT Coag (PPP) [Time]on aPTT Coag (Bld) [Time] 51 s High 26-37 [facility] Comment on above: Performed By: #### C BCA, PINR, 72237-2, BMP #### [facility] ([id number]) [address], [address] [place] [address] Angelito 01-07-2024 L Specimen: [id number] Received: 01/10/24 Status: MICHAEL Waldron Num: [id number] Spec Type: Surgical Subm Dr: Angelia Treviño Tissues: A Fallopian Tube - Sterilization (BILATERAL) Procedures: HE/3, Gross/Micro L2 Age/ Patient Sex Location Account Attending Physician Kimberly Silverman 33/F LABELL [id number] Angelia Treviño SPEC NUM: [id number] RECD: 01/10/24 STATUS: MICHAEL WALDRON NUM: [id number] ANICETO: 01/07/[address]: Angelia Treviño ENTERED: 01/10/[address] [facility] [address]: Lopez,Lab SPEC TYPE: Surgical DEPT: FRANTZ [...] markedly dilated lumens throughout all 3 segments. Processing Inspector sections are submitted in 3 cassettes as follows: A1 - Cross-sections of shortest segment A2 - Cross-sections intermediate length segment A3 - Cross-sections longest segment CPT Codes 85340 -------- -------- Specimen: [id number] Received: 01/10/24 Status: MICHAEL Waldron Num: [id number] Spec Type: Surgical Subm Dr: Angelia Treviño Tissues: A Fallopian Tube - Sterilization (BILATERAL) Procedures: HE/Kash, Guanakito/Darek L2 -------- Patient: Kimberly Silverman [id number] (Continued) -------- Signed (signature on file) Jani Garcia MD 01/15/24 0853 [facility] AMYLASEon 04-03-2023 Amylase [Catalytic activity/Vol] 62 U/L Normal 25-115 [facility] Comment on above: Performed By: #### L IPA, ANDERSON ####[facility] [id number] [place], [place] [address]AdDr. Reece Garg CBC AUTO DIFFon 04-03-2023 BASO # 0.0 103/ul Normal 0.0-0.1 [facility] Comment on above: Performed By: #### C BC #### [facility] [address] [address] [address] Reece Garg Basophils/100 WBC (Bld) 0.3 % Normal 0.2-2.0 [facility] Comment on above: Performed By: #### C BC #### [facility] [address] [address] [address] Reece Garg EO # 0.1 103/ul Normal 0.0-0.7 [facility] Comment on above: Performed By: #### C BC #### [facility] [address] [address] [address] Reece Garg Eosinophils/100 WBC (Bld) 0.6 % Critically low 0.9-7.0 [facility] Comment on above: Performed By: #### C BC #### [facility] [address] [address] [address] Reece Garg Erythrocyte distribution width (RBC) [Ratio] 11.9 % Normal 11.0-15.0 [facility] Comment on above: Performed By: #### C BC #### [facility] [address] [address] [address] Reece Garg Hematocrit (Bld) [Volume fraction] 37.7 % Normal 36.0-48.0 [facility] Comment on above: Performed By: #### C BC #### [facility] [address] [address] [address] Reece Garg Hemoglobin (Bld) [Mass/Vol] 12.9 g/dL Normal 12.0-16.0 [facility] Comment on above: Performed By: #### C BC #### [facility] [address] [address] [address] Reece Garg IG # 0.05 10e3/ul Critically high 0.00-0.[address] [facility] Comment on above: Performed By: #### C BC #### [facility] [address] [place] [address] Dr. Reece Garg IG % 0.4 % Normal 0.0-0.5 [facility] Comment on above: Performed By: #### C BC #### [facility] [address] [place] [address] Dr. Reece Garg LYMPH # 2.3 103/ul Normal 1.2-3.8 [facility] Comment on above: Performed By: #### C BC #### [facility] [address] [place] [address] Dr. Reece Garg Lymphocytes/100 WBC (Bld) 20.8 % Normal 20.5-60.0 [facility] Comment on above: Performed By: #### C BC #### [facility] [address] [place] [address] Dr. Reece Garg MANUAL DIFF REQ NO Normal [facility] Comment on above: Performed By: #### C BC #### [facility] [address] [place] [address] Dr. Reece Garg MCH (RBC) [Entitic mass] 32.3 pg Normal 26.7-34.0 [facility] Comment on above: Performed By: #### C BC #### [facility] [address] [place] [address] Dr. Reece Garg MCHC (RBC) [Mass/Vol] 34.2 g/dL Normal 29.9-35.2 [facility] Comment on above: Performed By: #### C BC #### [facility] [address] [address] [address] Reece Garg MCV (RBC) [Entitic vol] 94.3 fL Normal 81.0-99.0 [facility] Comment on above: Performed By: #### C BC #### [facility] [address] [place] [address] Dr. Reece Garg MONO # 0.6 103/ul Normal 0.3-0.8 [facility] Comment on above: Performed By: #### C BC #### [facility] [address] [place] [address] Dr. Reece Garg Monocytes/100 WBC (Bld) 5.3 % Normal 1.7-12.0 [facility] Comment on above: Performed By: #### C BC #### [facility] [address] [place] [address] Dr. Reece Garg NEUT # 8.1 103/ul Critically high 1.4-6.5 [facility] Comment on above: Performed By: #### C BC #### [facility] [address] [place] [address] Dr. Reece Garg Neutrophils/100 WBC (Bld) 72.6 % Normal 43.0-75.0 [facility] Comment on above: Performed By: #### C BC #### [facility] [address] [place] [address] Dr. Reece Garg Platelet mean volume (Bld) [Entitic vol] 10.2 fL Normal 9.5-13.5 [facility] Comment on above: Performed By: #### C BC #### [facility] [address] [place] [address] Dr. Reece Garg PLT 163 103/ul Normal 150-450 [facility] Comment on above: Performed By: #### C BC #### [facility] [address] [place] [address] Dr. Reece Garg RBC 4.00 106/ul Critically low 4.20-5.40 [facility] Comment on above: Performed By: #### C BC #### [facility] [address] [place] [address] Dr. Reece Garg WBC 11.1 103/ul Critically high 4.0-11.0 [facility] Comment on above: Performed By: #### C BC #### [facility] [address] [address] [address] Reece Garg BASO # 0.0 103/ul Normal 0.0-0.1 [facility] Comment on above: Performed By: #### C BC #### [facility] [address] [place] [address] Dr. Reece Garg Basophils/100 WBC (Bld) 0.3 % Normal 0.2-2.0 [facility] Comment on above: Performed By: #### C BC #### [facility] [address] [place] [address] Dr. Reece Garg EO # 0.1 103/ul Normal 0.0-0.7 [facility] Comment on above: Performed By: #### C BC #### [facility] [address] [place] [address] Dr. Reece Garg Eosinophils/100 WBC (Bld) 0.7 % Critically low 0.9-7.0 [facility] Comment on above: Performed By: #### C BC #### [facility] [address] [place] [address] Dr. Reece Garg Erythrocyte distribution width (RBC) [Ratio] 12.0 % Normal 11.0-15.0 [facility] Comment on above: Performed By: #### C BC #### [facility] [address] [place] [address] Dr. Reece Garg Hematocrit (Bld) [Volume fraction] 41.4 % Normal 36.0-48.0 [facility] Comment on above: Performed By: #### C BC #### [facility] [address] [place] [address] Dr. Reece Garg Hemoglobin (Bld) [Mass/Vol] 14.3 g/dL Normal 12.0-16.0 [facility] Comment on above: Performed By: #### C BC #### [facility] [address] [place] [address] Dr. Reece Garg IG # 0.05 10e3/ul Critically high 0.00-0.[address] [facility] Comment on above: Performed By: #### C BC #### [facility] [address] [place] [address] Dr. Reece Garg IG % 0.3 % Normal 0.0-0.5 [facility] Comment on above: Performed By: #### C BC #### [facility] [address] [place] [address] Dr. Reece Garg LYMPH # 1.6 103/ul Normal 1.2-3.8 [facility] Comment on above: Performed By: #### C BC #### [facility] [address] [place] [address] Dr. Reece Garg Lymphocytes/100 WBC (Bld) 10.6 % Critically low 20.5-60.0 [facility] Comment on above: Performed By: #### C BC #### [facility] [address] [place] [address] Dr. Reece Garg MANUAL DIFF REQ NO Normal [facility] Comment on above: Performed By: #### C BC #### [facility] [address] [place] [address] Dr. Reece Garg MCH (RBC) [Entitic mass] 32.1 pg Normal 26.7-34.0 [facility] Comment on above: Performed By: #### C BC #### [facility] [address] [place] [address] Dr. Reece Garg MCHC (RBC) [Mass/Vol] 34.5 g/dL Normal 29.9-35.2 [facility] Comment on above: Performed By: #### C BC #### [facility] [address] [place] [address] Dr. Reece Garg MCV (RBC) [Entitic vol] 93.0 fL Normal 81.0-99.0 [facility] Comment on above: Performed By: #### C BC #### [facility] [address] [place] [address] Dr. Reece Garg MONO # 0.7 103/ul Normal 0.3-0.8 [facility] Comment on above: Performed By: #### C BC #### [facility] [address] [place] [address] Dr. Reece Garg Monocytes/100 WBC (Bld) 4.7 % Normal 1.7-12.0 [facility] Comment on above: Performed By: #### C BC #### [facility] [address] [place] [address] Dr. Reece Garg NEUT # 12.9 103/ul Critically high 1.4-6.5 [facility] Comment on above: Performed By: #### C BC #### [facility] [address] [place] [address] Dr. Reece Garg Neutrophils/100 WBC (Bld) 83.4 % Critically high 43.0-75.0 [facility] Comment on above: Performed By: #### C BC #### [facility] [address] [place] [address] Dr. Reece Garg Platelet mean volume (Bld) [Entitic vol] 10.4 fL Normal 9.5-13.5 [facility] Comment on above: Performed By: #### C BC #### [facility] [address] [place] [address] Dr. Reece Garg PLT 194 103/ul Normal 150-450 [facility] Comment on above: Performed By: #### C BC #### [facility] [address] [place] [address] Dr. Reece Garg RBC 4.45 106/ul Normal 4.20-5.40 [facility] Comment on above: Performed By: #### C BC #### [facility] [address] [place] [address] Dr. Reece Garg WBC 15.4 103/ul Critically high 4.0-11.0 [facility] Comment on above: Performed By: #### C BC #### [facility] [address] [place] [address] ABD/PELV W CONon [...] LAVON ELIZALDE Date: 2023-04-03 01:36 Normal [facility] ER URINE PROFILEon 3 Bilirubin Ql (U) Negative Normal NEGATIVE [facility] Comment on above: Performed By: #### P REGU, ERUR #### [facility] [address] [address] [address] Reece Garg Clarity (U) CLEAR Normal CLEAR [facility] Comment on above: Performed By: #### P REGU, ERUR #### [facility] [address] [address] [address] Reece Garg Color (U) LT. YELLOW Normal YELLOW [facility] Comment on above: Performed By: #### P REGU, ERUR #### [facility] [address] [place] [address] Dr. Reece KHAN A micrscopic examination will be performed if indicated. Normal [facility] Comment on above: Performed By: #### P REGU, ERUR #### [facility] [address] [address] [address] Reece Garg Glucose Ql (U) Negative Normal NEGATIVE [facility] Comment on above: Performed By: #### P REGU, ERUR #### [facility] [address] [place] [address] Dr. Reece Garg Hemoglobin Ql (U) Negative Normal NEGATIVE [facility] Comment on above: Performed By: #### P REGU, ERUR #### [facility] [address] [address] [address] Reece Garg Ketones Ql (U) 15 mg/dl Abnormal NEGATIVE [facility] Comment on above: Performed By: #### P REGU, ERUR #### [facility] [address] [place] [address] Dr. Reece Garg LEUKOCYTES Negative Normal NEGATIVE [facility] Comment on above: Performed By: #### P REGU, ERUR #### [facility] [address] [place] [address] Dr. Reece Garg Nitrite Ql (U) Negative Normal NEGATIVE [facility] Comment on above: Performed By: #### P REGU, ERUR #### [facility] [address] [address] [address] Reece Garg pH (U) 5.5 [pH] Normal 5-9 [facility] Comment on above: Performed By: #### P REGU, ERUR #### [facility] [address] [place] [address] Dr. Reece Garg SPEC GRAVITY <=1.005 Abnormal 1.005-<=1.025 [facility] Comment on above: Performed By: #### P REGU, ERUR #### [facility] [address] [address] [address] Reece Garg UA PROTEIN Negative Normal NEGATIVE/ TRACE [facility] Comment on above: Performed By: #### P REGU, ERUR #### [facility] [address] [place] [address] Dr. Reece Garg UR MICRO IND NOT INDICATED Normal [facility] Comment on above: Performed By: #### P REGU, ERUR #### [facility] [address] [address] [address] Reece Garg Urobilinogen Qn (U) 0.2 {Dariel'U}/dL Normal 0.2 - 1. 0 [facility] Comment on above: Performed By: #### P REGU, ERUR #### [facility] [address] [place] [address] Dr. Reece Garg LIPASEon 04-03-2023 Lipase [Catalytic activity/Vol] 62.0 U/L Critically low 73.0-393.0 [facility] Comment on above: Performed By: #### L IPA, ANDERSON ####[facility] [id number] [address]Dr. Reece Garg MONOon 04-03-2023 Monocytes (Bld) [#/Vol] Negative Normal NEGATIVE [facility] Comment on above: Performed By: #### M JOSE DANIEL #### [facility] [address] [place] [address] Dr. Reece Garg URon 04-03-2023 , QUAL Negative Normal NEGATIVE [facility] Comment on above: Performed By: #### P REGU, ERUR #### [facility] [address] [place] [address] Dr. Reece Garg PROF 14(COMP METB)on 023 Albumin [Mass/Vol] 3.3 g/dL Critically low 3.4-5.0 [facility] Comment on above: Performed By: #### C MP #### [facility] [address] [place] [address] Dr. Reece Garg Albumin/Globulin [Mass ratio] 1.0 {ratio} Normal [facility] Comment on above: Performed By: #### C MP #### [facility] [address] [place] [address] Dr. Reece Garg ALP [Catalytic activity/Vol] 38 U/L Critically low 46-116 [facility] Comment on above: Performed By: #### C MP #### [facility] [address] [place] [address] Dr. Reece Garg ALT [Catalytic activity/Vol] 16 U/L Normal 14-59 [facility] Comment on above: Performed By: #### C MP #### [facility] [address] [place] [address] Dr. Reece Garg Anion gap [Moles/Vol] 10.7 mmol/L Normal [facility] Comment on above: Performed By: #### C MP #### [facility] [address] [place] [address] Dr. Reece Garg AST [Catalytic activity/Vol] 10 U/L Critically low 15-37 [facility] Comment on above: Performed By: #### C MP #### [facility] [address] [place] [address] Dr. Reece Garg Bilirubin [Mass/Vol] 1.0 mg/dL Normal 0.2-1.0 [facility] Comment on above: Performed By: #### C MP #### [facility] [address] [place] [address] Dr. Reece Garg Calcium [Mass/Vol] 8.2 mg/dL Critically low 8.5-10.1 [facility] Comment on above: Performed By: #### C MP #### [facility] [address] [place] [address] Dr. Reece Garg Chloride [Moles/Vol] 106 mmol/L Normal 98-107 [facility] Comment on above: Performed By: #### C MP #### [facility] [address] [place] [address] Dr. Reece Garg CO2 [Moles/Vol] 27.0 mmol/L Normal 21.0-32.0 [facility] Comment on above: Performed By: #### C MP #### [facility] [address] [address] [address] Reece Garg Creatinine [Mass/Vol] 0.77 mg/dL Normal 0.55-1.02 [facility] Comment on above: Performed By: #### C MP #### [facility] [address] [address] [address] Reece Garg EGFR-AF MALDIVIAN >60 Normal >=60 [facility] Comment on above: Performed By: #### C MP #### [facility] [address] [address] [address] Reece Garg EGFR-NON AF MALDIVIAN >60 Normal >=60 [facility] Comment on above: Performed By: #### C MP #### [facility] [address] [place] [address] Dr. Reece Garg Globulin (S) [Mass/Vol] 3.3 g/dL Normal [facility] Comment on above: Performed By: #### C MP #### [facility] [address] [address] [address] Reece Garg Glucose [Mass/Vol] 102 mg/dL Normal 74-106 [facility] Comment on above: Performed By: #### C MP #### [facility] [address] [place] [address] Dr. Reece Garg Potassium [Moles/Vol] 3.7 mmol/L Normal 3.5-5.1 [facility] Comment on above: Performed By: #### C MP #### [facility] [address] [place] [address] Dr. Reece Garg Protein [Mass/Vol] 6.6 g/dL Normal 6.4-8.2 [facility] Comment on above: Performed By: #### C MP #### [facility] [address] [place] [address] Dr. Reece Garg Sodium [Moles/Vol] 140 mmol/L Normal 136-145 [facility] Comment on above: Performed By: #### C MP #### [facility] [address] [place] [address] Dr. Reece Garg Urea nitrogen [Mass/Vol] 8.0 mg/dL Normal 7.0-18.0 [facility] Comment on above: Performed By: #### C MP #### [facility] [address] [place] [address] Dr. Reece Garg Urea nitrogen/Creatinine [Mass ratio] 10.4 mg/mg Normal [facility] Comment on above: Performed By: #### C MP #### [facility] [address] [place] [address] Dr. Reece Garg PROTIMEon 04-03-2023 INR Coag (PPP) [Relative time] 1.06 {INR} Normal [facility] Comment on above: Performed By: #### P TT, PT #### [facility] [address] [place] [address] Dr. Reece Garg INR GUIDELINES SEE BELOW Normal [facility] Comment on above: Result Comment: JJ RED INR: 2.0 - 3.0 CONDITIONS NOT LISTED BELOW 2.5 - 3.5 FOR PROSTHETIC HEART VALVE REPLACEMENT 2.5 - 3.5 RECURRENT THROMBOSIS Performed By: #### P TT, PT #### [facility] [address] [place] [address] Dr. Reece Garg PT Coag (PPP) [Time] 11.2 s Normal 9.0-11.6 [facility] Comment on above: Performed By: #### P TT, PT #### [facility] [address] [place] [address] Dr. Reece Garg PTTon 04-03-2023 aPTT Coag (Bld) [Time] 28.1 s Normal 22.3-36.2 [facility] Comment on above: Performed By: #### P TT, PT #### [facility] [address] [place] [address] Dr. Reece Garg PAP ACOG PANEL 2: 30 to 65on 07-28-2022 . . Normal [facility] Comment on above: Result Comment: Perf ormed at: WB Performed By: #### [id number] ####[facility] [address] [place] [id number]. Reece Garg Age Gdln ACOG Testing 30-65 Normal [facility] Comment on above: Performed By: #### 4 [id number] ####[facility] [address] [place] [id number]. Reece Garg DIAGNOSIS: Comment Normal [facility] Comment on above: Result Comment: NEGA TIVE FOR INTRAEPITHELIAL LESION OR MALIGNANCY. Performed at: WB Performed By: #### 4 [id number] ####[facility] [address] [place] [id number]. Reece Garg HPV Aptima Negative Normal Negative [facility] Comment on above: Result Comment: This nucleic acid amplification test detects fourteen high-risk HPV types (16,18,31,33,35,39,45,51,52,56,58,59,66,68) without differentiation. Performed at: =G Performed By: #### 4 [id number] ####[facility] [address] [place], [place] [address]Dr. Reece Garg Methodology: Comment Normal [facility] Comment on above: Result Comment: This liquid based ThinPrep(R) pap test was screened with the use of an image guided system. Performed at: WB Performed By: #### 4 [id number] ####[facility] [address] [place], [place] [address]Dr. Reece Garg Note: Comment Normal [facility] Comment on above: Result Comment: The Pap smear is a screening test designed to aid in the detection of premalignant and malignant conditions of the uterine cervix. It is not a diagnostic procedure and should not be used as the sole means of detecting cervical cancer. Both false-positive and false-negative reports do occur. . Performed at: WB Performed By: #### 4 [id number] ####[facility] [address] [place] [address]Dr. Reece Garg Performed by: Comment Normal [facility] Comment on above: Result Comment: Alexandra Cortez, Tubing Drier (ASCP) Performed at: WB Performed By: #### 4 [id number] ####[facility] [address] [place], [place] [address]NcDr. Reece Garg Specimen adequacy: Comment Normal [facility] Comment on above: Result Comment: Sati sfactory for evaluation. No endocervical component is identified. Performed at: WB Performed By: #### 4 [id number] ####[facility] [address] [place], [place] [address]JzDr. Reece Garg VAGINITIS/VAGINOSIS DNA PROB Erwin 07-24-2022 Mala species Negative Normal Negative [facility] Comment on above: Performed By: #### V AGINT #### [facility] [address] [address] [address] Reece Garg Gardnerella vaginalis Positive Abnormal Negative [facility] Comment on above: Performed By: #### V AGINT #### [facility] [address] [address] [address] Reece Garg Trichomonas vaginalis Negative Normal Negative [facility] Comment on above: Performed By: #### V AGINT #### [facility] [address] [address] [address] Reece Garg Consenton 06-03-2020 Consent [id number]# 1.00CD:127 Normal [facility] Encounters Encounter Date Encounter Type Care Provider Facility Start: 04-27-2024 ambulatory [facility] Shaheed [facility] Start: 04-04-2024 End: 04-04-2024 ambulatory ADELFO PEREZ Not Available Start: 02-16-2024 End: 02-16-2024 ambulatory THERESA DAVIS Not Available Start: 02-10-2024 End: 02-10-2024 Office outpatient visit 15 minutes Jani Bridges MD Work Phone: [facility] Comment on above: Acute deep vein thro mbosis (DVT) of iliac vein of left lower extremity ([facility]) (Primary Dx); May-Thurner syndrome Start: 02-10-2024 [facility] Start: 01-31-2024 End: 01-31-2024 ambulatory ANGELIA HUDSON Not Available Start: 01-26-2024 End: 01-26-2024 Evaluation and management of inpatient PAUL CHACON [facility] Start: 01-24-2024 End: 01-26-2024 Evaluation and management of inpatient [facility] Start: 01-24-2024 End: 01-24-2024 ambulatory DL BUCK [facility] Start: 01-24-2024 ambulatory [facility] Start: 01-23-2024 End: 01-26-2024 Evaluation and management of inpatient STEPHEN STOKES [facility] Start: 01-23-2024 End: 01-25-2024 Evaluation and management of inpatient [facility] Start: 01-20-2024 End: 01-20-2024 ambulatory ANDERSON FARIHA Not Available Start: 01-07-2024 End: 01-07-2024 ambulatory Angelia Hudson Facility:[facility] Start: 12-14-2023 End: 12-14-2023 ambulatory ANGELIA HUDSON Not Available Start: 11-04-2023 End: 11-04-2023 ambulatory ANGELIA HUDSON Not Available Start: 04-03-2023 End: 04-03-[address] USMAN ALVAREZ . Facility:[facility] Start: 07-26-2022 Encounter for gynecological examination (general) (routine) without abnormal findings DR EARLENE MCDONOUGH . [facility] Start: 07-22-2022 End: 07-22-[address] EARLENE MCDONOUGH . Facility:[facility] Start: 07-22-2022 End: 07-22-2022 Encounter for gynecological examination (general) (routine) without abnormal findings DR EARLENE MCDONOUGH . Facility:[facility] Procedures Date Procedure Procedure Detail Performing Clinician Start: 02-10-2024 Follow-up visit Follow-up AJNI BRIDGES Start: 01-23-2024 Adult depression screening assessment Jani Bridges MD Work Phone: Plan of Treatment Date Care Activity Detail Author Start: 01-24-2025 Adult BMI Screening Adult BMI Screen ing [facility] Start: 03-11-2025 Tobacco Screening Tobacco Screening [facility] Start: 01-22-2025 Depression [facility] Start: 02-25-2024 End: 02-10-2025 US.doppler Thoracic and Abdominal Aorta and Inferior Vena Cava and Illiac vessels Vas IVC/iliac duplex complete Vascular Ultrasound Routine Acute deep vein thrombosis (DVT) of iliac vein of left lower extremity (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 Expected: 02/25/2024 (Approximate), Expires: 02/10/2025 [employer] Work Phone: Comment on above: Expected: 02/25/2024 (Approximate), Expires: 02/10/2025 Start: 07-16-2023 Influenza vaccination Influenza Vacc ine [facility] Start: 02-14-2019 DTaP,Tdap and Td Vaccines (6 - Tdap) DTaP,Tdap and Td Vaccines (6 - Tdap) [facility] Start: 2013 Screening for malign ant neoplasm of cervix Pap Smear [facility] Start: 2010 Adult BMI Follow Up Plan Adult BMI Follow Up Plan [facility] Payers Date Payer Category Payer Self-pay 2022 Unknown [employer] OUT OF STATE PPO/TRUST [id number] 2022-Present [phone] [address] [place] [address] [id number] 1992 Unknown [id number] 2.840.1.959259.3.579.2.593 1992 Unknown [id number] 2.840.1.796409.3.579.2.593 1992 Unknown [id number] 2.840.1.334424.3.579.2.1286 1992 Unknown [id number] 2.16.840.1.408399.3.579.2.1286 1992 Unknown [id number] 2.840.1.395952.3.579.2.1286 1992 Unknown [id number] 2.16.840.1.511924.3.579.2.1285 1992 Unknown [id number] 2.16.840.1.974958.3.579.2.1285 1992 Unknown [id number] 2.16.840.1.763279.3.579.2.1285 1992 Unknown [id number] 2.16.840.1.679289.3.579.2.9 1992 Unknown [id number] 2.16.840.1.178367.3.579.2.1258 1992 Unknown [id number] 2.16.840.1.254998.3.579.2.9 1992 Unknown [id number] 2.16.840.1.519038.3.579.2.1258 1992 Unknown [id number] 2.16.840.1.634791.3.579.2.9 1992 Unknown [id number] 2.16.840.1.132803.3.579.2.1258 1992 Unknown [id number] 2.16.840.1.827170.3.579.2.1285 1992 Unknown [id number] 2.16.840.1.658312.3.579.2.1285 1992 Unknown [id number] 2.16.840.1.034824.3.579.2.1286 1957 Medicaid [id number] 1957 Unknown [id number] 1957 Unknown [id number] 1959 Unknown [id number] Social History Date Type Detail Facility Start: 01-23-2024 Tobacco smoking stat [facility] Ex-smoker [facility] History of tobacco use Current smoker [facility] History of tobacco use Cigarette Smoker P [facility] Start: 01-23-2024 Tobacco use and exposure Smokeless tobacco non-user [facility] Start: 01-24-2024 Alcohol intake Ex-drinker (finding) [facility] Start: 01-23-2024 End: 01-24-2024 History of Social function [facility] Start: 01-23-2024 End: 01-24-2024 [facility] Utilities [facility] Has the electric, [employer], oil, or water company threatened to shut off services in your home in past 12Mo No [facility] How often to you hav e a drink containing alcohol? Never [facility] How many standard drinks containing alcohol do you have on a typical day? Patient does not drink [facility] Start: 1990 Sex Assigned At Not on file P [employer] [facility] Medical Equipment Procedure Code Equipment Code Equipment Origin al Text Equipment Identifier Dates Stent Vsc 18mm X 100mm Venous Nitinol Slf Expanding Abre - [id number] Start: 01-24-2024 History of Present illness Narrative 02-10-2024 Jani Bridges MD - 02/10/2024 2:40 PM EDT Note Date & Type Note Facility 02-10-2024 History of Presen t illness Narrative Images from the original note were not included. 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 Plan Plan: Elichance MITCHELL US of the left iliac veins F/U in 3 months Jani Bridges MD, [place] documented in this encounter [facility] Evaluation note Note Date & Type [...] Vas IVC/iliac duplex complete Jani Bridges MD [address], [place] [address] Referral ID Status Reason Start Date Expiration Date V isits Requested Visits Authorized [id number] Pending Review 02/11/2024 02/10/2025 1 1 Additional Source Comments INFORMATION SOURCE (unrecogn ized section and content) DATE CREATED AUTHOR 06/08/2020 [facility] DATE CREATED AUTHOR AUTHOR'S ORGANIZ ATION 04/23/2023 [facility] DATE CREATED AUTHOR AUTHOR'S ORGANIZ ATION 01/16/2024 [facility] DATE CREATED AUTHOR AUTHOR'S ORGANIZ ATION 01/27/2024 [facility] DATE CREATED AUTHOR AUTHOR'S ORGANIZ ATION 04/06/2024 [facility] DATE CREATED AUTHOR AUTHOR'S ORGANIZ ATION 04/28/20[facility] Reason for Visit (unrecogniz ed section and content) Reason Comments Follow-up Thrombectomy lle. DV T and iliac stenting. Per patient she notes some discomfort to lle with mi Care Teams (unrecognized sec tion and content) [employer] Relationship Specialty Start Date End Date Usman Alvarez MD [address] [place] [address] PCP - General 02/09/24 FOR RECORDS PERTAINING [...] BE BASED ON THE PRIMARY CLINICAL RECORDS. [facility] [email or web address] provides no warranty or guarantee of the accuracy or completeness of information in this document.
--- NOTE | 2024-05-05 08:30 | CT_ITS ---
[address] [address] Patient Name: KIMBERLY MCMAHON MRN: [id number] date: 1990 Sex: F Assigned Patient Location: CT Current Patient Location: Accession/Order Number: [id number] Exam Date: 05/05/2024 08:40 Report Date: 05/08/2024 08:18 At the request of: DIONNE JAIME Procedure: CT angio UE LT EXAMINATION: CT angio UE LT HISTORY: Vascular Murmur Upper Arm I87.1 COMPARISON: No relevant comparison available. TECHNIQUE: After obtaining the patient's consent, CT images were obtained without and with non-ionic intravenous contrast material. Multi-planar reformatted/3-D images were created to optimize visualization of vascular anatomy. Dose reduction techniques were achieved by using automated exposure control and/or adjustment of mA and/or kV according to patient size and/or use of iterative reconstruction technique. FINDINGS: REGION: Left arm Bones: No acute fracture, dislocation, lytic or sclerotic changes Soft tissues: Normal no soft tissue swelling skin thickening or mass ARTERIES: Normal. No flow significant stenosis occlusion or aneurysm OTHER: Negative. CT/CT angio UE LT IMPRESSION: Normal exam Electronically authenticated by: MINISTERIO MCCRAY Date: 05/08/2024 08:18
== END 2024-05-05 08:27 | disposition home or self-care (01) ==
LOC: CT 08:26
PROVIDERS: PCP Family Medicine; Visit Provider Student in an Organized Health Care Education/Training Program
DX: I87.1 Compression of vein (principal); I70.208 Unspecified atherosclerosis of native arteries of extremities, other extremity
CPT/HCPCS: 36415; 73206; 85652; 86140; Q9967

== ENCOUNTER 2024-05-05 09:20 | Outpatient (OUT) | payer BC, SELFPAY ==
--- OUTSIDE RECORDS SUMMARY | 2024-05-05 09:27 | XMS_ITS | CCD ---
Author Organization [facility] Care Team Providers Care Rehanger Name Role Phone RAIN ., DR MARY [...] Unavailable Usman Alvarez MD Primary Care Provider [phone] ANGELIA TREVIÑO Attending Unavailable ANDERSON FRIED Attending [...] in the morning. 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, other extremity] Onset: 04-27-2024 [...] [Moles/Vol] 7 mmol/L Normal 5-15 [facility] Comment on above: Performed By: #### C BCA, PINR, 40109-6, BMP #### [facility] ([id number]) [address], [address] [place] [address] Calcium [Mass/Vol] 8.7 mg/dL Normal 8.5-10.5 [facility] Comment on above: Performed By: #### C BCA, PINR, 06487-5, BMP #### [facility] ([id number]) [address], [address] [place] [address] Chloride [Moles/Vol] 106 mmol/L Normal 98-109 [facility] Comment on above: Performed By: #### Anastasiya BCA, PINR, 34282-3, BMP #### [facility] ([id number]) [address], [address] [place] [address] CO2 [Moles/Vol] 23 mmol/L Normal 22-32 [facility] Comment on above: Performed By: #### C BCA, PINR, 59275-4, BMP #### [facility] ([id number]) [address], [address] [place] [address] Creatinine [Mass/Vol] 0.57 mg/dL Normal 0.40-1.00 [facility] Comment on above: Result Comment: METH OD TRACEABLE TO IDMS STANDARD Performed By: #### C BRENNON, PINR, 10035-2, BMP #### [facility] ([id number]) [address] [address] [place] [address] eGFR (CKD-EPI) NON-RACE DEPENDENT >90 Normal >59 [facility] Comment on above: Result Comment: Reported eGFR is based on the CKD-EPI 2020 equation that does not use a race coefficient. Performed By: #### C BCA, PINR, 52025-4, BMP #### [facility] ([id number]) [address], [facility] [address] [place] [address] Glucose [Mass/Vol] 139 mg/dL High 65-99 [facility] Comment on above: Performed By: #### C BCA, PINR, 79342-4, BMP #### [facility] ([id number]) [address] [address] Potassium [Moles/Vol] 4.3 mmol/L Normal 3.5-5.0 [facility] Comment on above: Performed By: #### C BRENNON, PINR, 20682-9, BMP #### [facility] ([id number]) [address] [address] Sodium [Moles/Vol] 136 mmol/L Normal 134-146 [facility] Comment on above: Performed By: #### C BCA, PINR, 73678-2, BMP #### [facility] ([id number]) [address] [address] Urea nitrogen [Mass/Vol] 6 mg/dL Normal 5-23 [facility] Comment on above: Performed By: #### C BCA, PINR, 37885-2, BMP #### [facility] ([id number]) [address] [address] CBC AND AUTO DIFFon 01-25-20 24 ABSOLUTE BASOPHIL 0.0 X10E9/L Normal 0.0-0.2 [facility] Comment on above: Performed By: #### C SADAF WILLETT, 82350-8, BMP #### [facility] ([id number]) [address], [address] [place] [address] ABSOLUTE NEUTROPHIL 2.9 X10E9/L Normal 1.5-6.6 [facility] Comment on above: Performed By: #### C SADAF WILLETT, 98729-3, BMP #### [facility] ([id number]) [address], [address] [place] [address] Basophils/100 WBC (Bld) 0.1 % Normal [facility] Comment on above: Performed By: #### C SADAF WILLETT, 48376-2, BMP #### [facility] ([id number]) [address], [address] [place] [address] Eosinophils (Bld) [#/Vol] 0.0 10*3/uL Normal 0.0-0.4 [facility] Comment on above: Performed By: #### SADAF Langford BCA, 42854-7, BMP #### [facility] ([id number]) [address], [address] [place] [address] Eosinophils/100 WBC (Bld) 0.0 % Normal [facility] Comment on above: Performed By: #### SADAF Langford BCA, 34982-2, BMP #### [facility] ([id number]) [address], [address] [place] [address] Erythrocyte distribution width (RBC) [Ratio] 11.8 % Normal 11.5-15.0 [facility] Comment on above: Performed By: #### PARDEEP Langford BCAR, 62732-7, BMP #### [facility] ([id number]) [address], [address] [place] [address] Hematocrit (Bld) [Volume fraction] 35.5 % Normal 35-47 [facility] Comment on above: Performed By: #### C SADAF WILLETT, 30989-7, BMP #### [facility] ([id number]) [address] [address] [place] [address] Hemoglobin (Bld) [Mass/Vol] 12.3 g/dL Normal 11.7-15.5 [facility] Comment on above: Performed By: #### C BRENNON PINSlim, 46792-4, BMP #### [facility] ([id number]) [address], [facility] [address] [place] [address] Lymphocytes (Bld) [#/Vol] 0.4 10*3/uL Low 1.0-3.5 [facility] Comment on above: Performed By: #### Anastasiya WILLETT PINSlim, 67966-0, BMP #### [facility] ([id number]) [address], [facility] [address] [place] [address] Lymphocytes/100 WBC (Bld) 13.1 % Normal [facility] Comment on above: Performed By: #### Anastasiya WILLETT PINR, 93573-3, BMP #### [facility] ([id number]) [address], [facility] [address] [place] [address] MCH (RBC) [Entitic mass] 32.3 pg Normal 27-34 [facility] Comment on above: Performed By: #### Anastasiya WILLETT PINR, 68592-8, BMP #### [facility] ([id number]) [address], [address] [place] [address] MCHC (RBC) [Mass/Vol] 34.6 g/dL Normal 32-36 [facility] Comment on above: Performed By: #### Anastasiya WILLETT PINR, 13121-4, BMP #### [facility] ([id number]) [address], [address] [place] [address] MCV (RBC) [Entitic vol] 94 fL Normal 80-100 [facility] Comment on above: Performed By: #### C BRENNON, PINR, 64116-1, BMP #### [facility] ([id number]) [address], [address] [place] [address] Monocytes (Bld) [#/Vol] 0.1 10*3/uL Normal 0-0.9 [facility] Comment on above: Performed By: #### C BRENNON, PINR, 43992-7, BMP #### [facility] ([id number]) [address], [address] [place] [address] Monocytes/100 WBC (Bld) 2.4 % Normal [facility] Comment on above: Performed By: #### Anastasiya WILLETT, PINR, 29371-7, BMP #### [facility] ([id number]) [address], [address] [place] [address] Neutrophils/100 WBC (Bld) 84.4 % Normal [facility] Comment on above: Performed By: #### Anastasiya WILLETT, PINR, 00362-7, BMP #### [facility] ([id number]) [address], [address] [place] [address] Platelet mean volume (Bld) [Entitic vol] 9.1 fL Normal 7-12 [facility] Comment on above: Performed By: #### Anastasiya WILLETT, PINR, 88828-6, BMP #### [facility] ([id number]) [address], [address] [place] [address] Platelets (Bld) [#/Vol] 142 10*3/uL Low 150-450 [facility] Comment on above: Performed By: #### Anastasiya WILLETT, PINR, 59335-4, BMP #### [facility] ([id number]) [address], [address] [place] [address] RBC COUNT 3.79 X10E12/L Low 3.80-5.20 [facility] Comment on above: Performed By: #### SADAF Langford BCA, 87967-4, BMP #### [facility] ([id number]) [address] [facility], [address] [place] [address] WBC (Bld) [#/Vol] 3.4 10*3/uL Low 4.0-11.0 [facility] Comment on above: Performed By: #### SADAF Langford BCA, 16987-7, BMP #### [facility] ([id number]) [address] [facility], [address] [place] [address] Heparin unfractionated Chrom ogenic method Qn (PPP)on 01-25-2024 ANTI XA UFH 0.68 IU/mL Normal 0.30-0.70 [facility] Comment on above: Result Comment: Opti mal time for testing is 6 hrs post dosage This test is specific for monitoring patients on UFH, and is not recommended for use with other Anti-Xa medications. Performed By: #### SADAF Langford BCA, 76254-1, BMP #### [facility] ([id number]) [address] [facility], [address] [address] ANTI CARDIOLIPIN AB IGG IGA IGMon 01-24-2024 MELBA IgA <2.0 Normal 0-19.9 [facility] Comment on above: Performed By: #### Doreen SHUKLA #### [facility] ([id number]) [address] [facility], [address] [place] [address] MELBA IgG <1.6 Normal 0-19.9 [facility] Comment on above: Performed By: #### Doreen SUHKLA #### [facility] ([id number]) [address] [facility], [address] [place] [address] MELBA IgM <1.5 Normal 0-19.9 [facility] Comment on above: Performed By: #### Doreen SHUKLA #### [facility] ([id number]) [address], [address] [place] [address] BASIC METABOLIC PANLon 01-23 Anion gap [Moles/Vol] 8 mmol/L Normal 5-15 [facility] Comment on above: Performed By: #### 3 274-8, CBCA, BMP #### [facility] ([id number]) [address], [facility] [address] [place] [address] Calcium [Mass/Vol] 8.0 mg/dL Low 8.5-10.5 [facility] Comment on above: Performed By: #### 3 274-8, CBCA, BMP #### [facility] ([id number]) [address], [facility] [address] [place] [address] Chloride [Moles/Vol] 106 mmol/L Normal 98-109 [facility] Comment on above: Performed By: #### 3 274-8, CBCA, BMP #### [facility] ([id number]) [address], [address] [place] [address] CO2 [Moles/Vol] 22 mmol/L Normal 22-32 [facility] Comment on above: Performed By: #### 3 274-8, CBCA, BMP #### [facility] ([id number]) [address], [facility] [address] [place] [address] Creatinine [Mass/Vol] 0.53 mg/dL Normal 0.40-1.00 [facility] Comment on above: Result Comment: METH OD TRACEABLE TO IDMS STANDARD Performed By: #### 3 274-8, CBCA, BMP #### [facility] ([id number]) [address] [address] [place] [address] eGFR (CKD-EPI) NON-RACE DEPENDENT >90 Normal >59 [facility] Comment on above: Result Comment: Reported eGFR is based on the CKD-EPI 2020 equation that does not use a race coefficient. Performed By: #### 3 274-8, CBCA, BMP #### [facility] ([id number]) [address] [place] [address] Glucose [Mass/Vol] 76 mg/dL Normal 65-99 [facility] Comment on above: Performed By: #### 3 274-8, CBCA, BMP #### [facility] ([id number]) [address], [address] [place] [address] Potassium [Moles/Vol] 3.8 mmol/L Normal 3.5-5.0 [facility] Comment on above: Performed By: #### 3 274-8, CBCA, BMP #### [facility] ([id number]) [address], [address] [place] [address] Sodium [Moles/Vol] 136 mmol/L Normal 134-146 [facility] Comment on above: Performed By: #### 3 274-8, CBCA, BMP #### [facility] ([id number]) [address] [place] [address] Urea nitrogen [Mass/Vol] 10 mg/dL Normal 5-23 [facility] Comment on above: Performed By: #### 3 274-8, CBCA, BMP #### [facility] ([id number]) [address], [address] [place] [address] BETA-2 GP1 AB PANELon 2023 BETA-2 GP1 IgA <2.0 Normal 0.0-19.9 [facility] Comment on above: Performed By: #### C BCA, PINR, 84726-0, BMP #### [facility] ([id number]) [address], [address] [place] [address] BETA-2 GP1 IgG <1.4 Normal 0.0-19.9 [facility] Comment on above: Performed By: #### C BCA, PINR, 82595-4, BMP #### [facility] ([id number]) [address], [address] [place] [address] BETA-2 GP1 IgM <1.5 Normal 0.0-19.9 [facility] Comment on above: Performed By: #### C BRENNON PINR, 69493-8, BMP #### [facility] ([id number]) [address], [address] [place] [address] CBC AND AUTO DIFFon 01-24-20 ABSOLUTE BASOPHIL 0.0 X10E9/L Normal 0.0-0.2 [facility] Comment on above: Performed By: #### 3 274-8, CBCA, BMP #### [facility] ([id number]) [address], [facility] [address] [place] [address] ABSOLUTE NEUTROPHIL 3.7 X10E9/L Normal 1.5-6.6 [facility] Comment on above: Performed By: #### 3 274-8, CBCA, BMP #### [facility] ([id number]) [address], [address] [place] [address] Basophils/100 WBC (Bld) 0.4 % Normal [facility] Comment on above: Performed By: #### 3 274-8, CBCA, BMP #### [facility] ([id number]) [address], [address] [address] Eosinophils (Bld) [#/Vol] 0.2 10*3/uL Normal 0.0-0.4 [facility] Comment on above: Performed By: #### 3 274-8, CBCA, BMP #### [facility] ([id number]) [address], [address] [address] Eosinophils/100 WBC (Bld) 2.9 % Normal [facility] Comment on above: Performed By: #### 3 274-8, CBCA, BMP #### [facility] ([id number]) [address], [address] [address] Erythrocyte distribution width (RBC) [Ratio] 12.3 % Normal 11.5-15.0 [facility] Comment on above: Performed By: #### 3 274-8, CBCA, BMP #### [facility] ([id number]) [address], [address] [place] [address] Hematocrit (Bld) [Volume fraction] 36.4 % Normal 35-47 [facility] Comment on above: Performed By: #### 3 274-8, CBCA, BMP #### [facility] ([id number]) [address], [facility] [address] [place] [address] Hemoglobin (Bld) [Mass/Vol] 12.4 g/dL Normal 11.7-15.5 [facility] Comment on above: Performed By: #### 3 274-8, CBCA, BMP #### [facility] ([id number]) [address], [facility] [address] [place] [address] Lymphocytes (Bld) [#/Vol] 1.9 10*3/uL Normal 1.0-3.5 [facility] Comment on above: Performed By: #### 3 274-8, CBCA, BMP #### [facility] ([id number]) [address], [address] [address] Lymphocytes/100 WBC (Bld) 29.7 % Normal [facility] Comment on above: Performed By: #### 3 274-8, CBCA, BMP #### [facility] ([id number]) [address], [address] [place] [address] MCH (RBC) [Entitic mass] 32.5 pg Normal 27-34 [facility] Comment on above: Performed By: #### 3 274-8, CBCA, BMP #### [facility] ([id number]) [address], [address] [place] [address] MCHC (RBC) [Mass/Vol] 34.2 g/dL Normal 32-36 [facility] Comment on above: Performed By: #### 3 274-8, CBCA, BMP #### [facility] ([id number]) [address], [address] [place] [address] MCV (RBC) [Entitic vol] 95 fL Normal 80-100 [facility] Comment on above: Performed By: #### 3 274-8, CBCA, BMP #### [facility] ([id number]) [address], [address] [place] [address] Monocytes (Bld) [#/Vol] 0.5 10*3/uL Normal 0-0.9 [facility] Comment on above: Performed By: #### 3 274-8, CBCA, BMP #### [facility] ([id number]) [address], [address] [place] [address] Monocytes/100 WBC (Bld) 8.2 % Normal [facility] Comment on above: Performed By: #### 3 274-8, CBCA, BMP #### [facility] ([id number]) [address], [address] [place] [address] Neutrophils/100 WBC (Bld) 58.8 % Normal [facility] Comment on above: Performed By: #### 3 274-8, CBCA, BMP #### [facility] ([id number]) [address], [address] [place] [address] Platelet mean volume (Bld) [Entitic vol] 8.7 fL Normal 7-12 [facility] Comment on above: Performed By: #### 3 274-8, CBCA, BMP #### [facility] ([id number]) [address] [place] [address] Platelets (Bld) [#/Vol] 128 10*3/uL Low 150-450 [facility] Comment on above: Performed By: #### 3 274-8, CBCA, BMP #### [facility] ([id number]) [address], [address] [place] [address] RBC COUNT 3.83 X10E12/L Normal 3.80-5.20 [facility] Comment on above: Performed By: #### 3 274-8, CBCA, BMP #### [facility] ([id number]) [address], [address] [address] WBC (Bld) [#/Vol] 6.4 10*3/uL Normal 4.0-11.0 [facility] Comment on above: Performed By: #### 3 274-8, CBCA, BMP #### [facility] ([id number]) [address], [address] [address] Heparin unfractionated Chrom ogenic method Qn (PPP)on 01-24-2024 ANTI XA UFH 0.47 IU/mL Normal 0.30-0.70 [facility] Comment on above: Result Comment: Opti mal time for testing is 6 hrs post dosage This test is specific for monitoring patients on UFH, and is not recommended for use with other Anti-Xa medications. Performed By: #### 3 274-8, CBCA, BMP #### [facility] ([id number]) [address] [address] dRVVT/dRVVT.excess phospholi pid Coag (PPP) [Ratio]on 01-24-2024 DILUTE VERONIKA'S [facility] VENOM Negative Normal [facility] Comment on above: Performed By: #### C BCA, PINR, 13773-0, BMP #### [facility] ([id number]) [address], [address] [place] [address] BASIC METABOLIC PANLon 01-22 Anion gap [Moles/Vol] 11 mmol/L Normal 5-15 [facility] Comment on above: Performed By: #### C BCA, PINR, 23777-5, BMP #### [facility] ([id number]) [address] [place] [address] Calcium [Mass/Vol] 8.3 mg/dL Low 8.5-10.5 [facility] Comment on above: Performed By: #### C BCA, PINR, 26570-4, BMP #### [facility] ([id number]) [address], [facility] [address] [place] [address] Chloride [Moles/Vol] 106 mmol/L Normal 98-109 [facility] Comment on above: Performed By: #### C BCA, PINR, 85718-0, BMP #### [facility] ([id number]) [address] [address] CO2 [Moles/Vol] 21 mmol/L Low 22-32 [facility] Comment on above: Performed By: #### C BCA, PINR, 18188-5, BMP #### [facility] ([id number]) [address] [address] Creatinine [Mass/Vol] 0.65 mg/dL Normal 0.40-1.00 [facility] Comment on above: Result Comment: METH OD TRACEABLE TO IDMS STANDARD Performed By: #### C BCA, PINR, 85099-2, BMP #### [facility] ([id number]) [address] [address] eGFR (CKD-EPI) NON-RACE DEPENDENT >90 Normal >59 [facility] Comment on above: Result Comment: Reported eGFR is based on the CKD-EPI 2020 equation that does not use a race coefficient. Performed By: #### C BCA, PINR, 46283-2, BMP #### [facility] ([id number]) [address] [address] [place] [address] Glucose [Mass/Vol] 78 mg/dL Normal 65-99 [facility] Comment on above: Performed By: #### C BCA, PINR, 07601-9, BMP #### [facility] ([id number]) [address] [place] [address] Potassium [Moles/Vol] 3.9 mmol/L Normal 3.5-5.0 [facility] Comment on above: Performed By: #### C BRENNON PINR, 37699-2, BMP #### [facility] ([id number]) [address] [place] [address] Sodium [Moles/Vol] 138 mmol/L Normal 134-146 [facility] Comment on above: Performed By: #### C BRENNON PINR, 48618-6, BMP #### [facility] ([id number]) [address] [place] [address] Urea nitrogen [Mass/Vol] 11 mg/dL Normal 5-23 [facility] Comment on above: Performed By: #### C BRENNON PINR, 16164-4, BMP #### [facility] ([id number]) [address], [address] [place] [address] CBC AND AUTO DIFFon 03-10-20 24 ABSOLUTE BASOPHIL 0.0 X10E9/L Normal 0.0-0.2 [facility] Comment on above: Performed By: #### C BRENNON PINR, 06920-5, BMP #### [facility] ([id number]) [address] [place] [address] ABSOLUTE NEUTROPHIL 6.6 X10E9/L Normal 1.5-6.6 [facility] Comment on above: Performed By: #### C BRENNON PINR, 84495-6, BMP #### [facility] ([id number]) [address] [place] [address] Basophils/100 WBC (Bld) 0.3 % Normal [facility] Comment on above: Performed By: #### C BRENNON PINR, 79168-2, BMP #### [facility] ([id number]) [address] [place] [address] Eosinophils (Bld) [#/Vol] 0.1 10*3/uL Normal 0.0-0.4 [facility] Comment on above: Performed By: #### C BRENNON PINR, 36688-5, BMP #### [facility] ([id number]) [address], [facility] [address] [place] [address] Eosinophils/100 WBC (Bld) 0.8 % Normal [facility] Comment on above: Performed By: #### C BRENNON, PINR, 76027-3, BMP #### [facility] ([id number]) [address] [address] [place] [address] Erythrocyte distribution width (RBC) [Ratio] 12.4 % Normal 11.5-15.0 [facility] Comment on above: Performed By: #### C BRENNON PINR, 43818-0, BMP #### [facility] ([id number]) [address], [facility] [address] [place] [address] Hematocrit (Bld) [Volume fraction] 39.4 % Normal 35-47 [facility] Comment on above: Performed By: #### Anastasiya WILLETT PINR, 57591-9, BMP #### [facility] ([id number]) [address], [facility] [address] [place] [address] Hemoglobin (Bld) [Mass/Vol] 13.8 g/dL Normal 11.7-15.5 [facility] Comment on above: Performed By: #### Anastasiya WILLETT, PINR, 86379-0, BMP #### [facility] ([id number]) [address] [facility] [address] [place] [address] Lymphocytes (Bld) [#/Vol] 1.9 10*3/uL Normal 1.0-3.5 [facility] Comment on above: Performed By: #### C BCA, PINR, 20697-2, BMP #### [facility] ([id number]) [address] [place] [address] Lymphocytes/100 WBC (Bld) 20.6 % Normal [facility] Comment on above: Performed By: #### C BCA, PINR, 98815-2, BMP #### [facility] ([id number]) [address] [place] [address] MCH (RBC) [Entitic mass] 32.7 pg Normal 27-34 [facility] Comment on above: Performed By: #### C BRENNON, PINR, 08808-2, BMP #### [facility] ([id number]) [address] [place] [address] MCHC (RBC) [Mass/Vol] 34.9 g/dL Normal 32-36 [facility] Comment on above: Performed By: #### C BCA, PINR, 34733-9, BMP #### [facility] ([id number]) [address] [place] [address] MCV (RBC) [Entitic vol] 94 fL Normal 80-100 [facility] Comment on above: Performed By: #### C BRENNON, PINR, 76376-4, BMP #### [facility] ([id number]) [address] [place] [address] Monocytes (Bld) [#/Vol] 0.6 10*3/uL Normal 0-0.9 [facility] Comment on above: Performed By: #### C BCA, PINR, 14025-9, BMP #### [facility] ([id number]) [address] [place] [address] Monocytes/100 WBC (Bld) 6.0 % Normal [facility] Comment on above: Performed By: #### C BCA, PINR, 83976-2, BMP #### [facility] ([id number]) [address] [place] [address] Neutrophils/100 WBC (Bld) 72.3 % Normal [facility] Comment on above: Performed By: #### Anastasiya WILLETT, PINR, 59792-6, BMP #### [facility] ([id number]) [address] [place] [address] Platelet mean volume (Bld) [Entitic vol] 8.4 fL Normal 7-12 [facility] Comment on above: Performed By: #### Anastasiya WILLETT, PINR, 46332-8, BMP #### [facility] ([id number]) [address] [place] [address] Platelets (Bld) [#/Vol] 156 10*3/uL Normal 150-450 [facility] Comment on above: Performed By: #### Anastasiya WILLETT, PINR, 99066-4, BMP #### [facility] ([id number]) [address] [place] [address] RBC COUNT 4.21 X10E12/L Normal 3.80-5.20 [facility] Comment on above: Performed By: #### Anastasiya WILLETT, PINR, 99410-8, BMP #### [facility] ([id number]) [address] [place] [address] WBC (Bld) [#/Vol] 9.1 10*3/uL Normal 4.0-11.0 [facility] Comment on above: Performed By: #### Anastasiya WILLETT, PINR, 44646-6, BMP #### [facility] ([id number]) [address] [place] [address] CT CTV ABD AND PELVISon 01-13 CT [...] on 01/23/2024 4:56 PM Normal [facility] Heparin unfractionated Chrom ogenic method Qn (PPP)on 01-23-2024 ANTI XA UFH 0.44 IU/mL Normal 0.30-0.70 [facility] Comment on above: Result Comment: Opti mal time for testing is 6 hrs post dosage This test is specific for monitoring patients on UFH, and is not recommended for use with other Anti-Xa medications. Performed By: #### 3 [id number] #### [facility] ([id number]) [address] [place] [address] PROTIME AND INRon 01-23-2024 INR Coag (PPP) [Relative time] 1.1 {INR} Normal 0.8-1.1 [facility] Comment on above: Performed By: #### C BRENNON, PINR, 36696-0, [facility] #### [facility] ([id number]) [address] [place] [address] PT Coag (PPP) [Time] 12.3 s Normal 9.8-13.2 [facility] Comment on above: Performed By: #### C BCA, PINR, 02534-7, BMP #### [facility] ([id number]) [address] [place] [address] aPTT Coag (PPP) [Time]on aPTT Coag (Bld) [Time] 51 s High 26-37 [facility] Comment on above: Performed By: #### C BCA, PINR, 58172-0, BMP #### [facility] ([id number]) [address] [place] [address] Angelito 01-07-2024 L Specimen: [id number] Received: 01/10/24 Status: MICHAEL Waldron Num: [id number] Spec Type: Surgical Subm Dr: Angelia Treviño Tissues: A Fallopian Tube - Sterilization (BILATERAL) Procedures: HE/3, Gross/Micro L2 Age/ Patient Sex Location Account Attending Physician Kimberly Silverman 33/F LABELL [id number] Angelia Treviño SPEC NUM: [id number] RECD: 01/10/24 STATUS: MICHAEL WALDRON NUM: [id number] ANICETO: 01/07/[address]: Angelia Treviño ENTERED: 01/10/[address] [facility] [address]: Lopez,Lab SPEC TYPE: Surgical DEPT: FRANTZ [...] markedly dilated lumens throughout all 3 segments. Mechanical Handyman sections are submitted in 3 cassettes as follows: A1 - Cross-sections of shortest segment A2 - Cross-sections intermediate length segment A3 - Cross-sections longest segment CPT Codes 11219 -------- -------- Specimen: [id number] Received: 01/10/24 Status: MICHAEL Waldron Num: [id number] Spec Type: Surgical Subm Dr: Angelia Treviño Tissues: A Fallopian Tube - Sterilization (BILATERAL) Procedures: HE/Kash, Guanakito/Darek L2 -------- Patient: Kimberly Silverman [id number] (Continued) -------- Signed (signature on file) Jani Garcia MD 01/15/[address] [facility] AMYLASEon 04-03-2023 Amylase [Catalytic activity/Vol] 62 U/L Normal 25-115 [facility] Comment on above: Performed By: #### L IPA, ANDERSON ####[facility] [id number] [place], [place] [address]TkDr. Reece Garg CBC AUTO DIFFon 04-03-2023 BASO # 0.0 103/ul Normal 0.0-0.1 [facility] Comment on above: Performed By: #### C BC #### [facility] [address] [address] [address] Reece Garg Basophils/100 WBC (Bld) 0.3 % Normal 0.2-2.0 [facility] Comment on above: Performed By: #### C BC #### [facility] [address] [address] [address] Reece Garg EO # 0.1 103/ul Normal 0.0-0.7 [facility] Comment on above: Performed By: #### C BC #### [facility] [address] [address] [address] Reece Garg Eosinophils/100 WBC (Bld) 0.6 % Critically low 0.9-7.0 [facility] Comment on above: Performed By: #### C BC #### [facility] [address] [address] [address] Reece Garg Erythrocyte distribution width (RBC) [Ratio] 11.9 % Normal 11.0-15.0 [facility] Comment on above: Performed By: #### C BC #### [facility] [address] [address] [address] Reece Garg Hematocrit (Bld) [Volume fraction] 37.7 % Normal 36.0-48.0 [facility] Comment on above: Performed By: #### C BC #### [facility] [address] [address] [address] Reece Garg Hemoglobin (Bld) [Mass/Vol] 12.9 g/dL Normal 12.0-16.0 [facility] Comment on above: Performed By: #### C BC #### [facility] [address] [address] [address] Reece Garg IG # 0.05 10e3/ul Critically high 0.00-0.03 [facility] Comment on above: Performed By: #### C BC #### [facility] [address] [place] [address] Dr. Reece Garg IG % 0.4 % Normal 0.0-0.5 [facility] Comment on above: Performed By: #### C BC #### [facility] [address] [place] [address] Dr. Reece Garg LYMPH # 2.3 103/ul Normal 1.2-3.8 [facility] Comment on above: Performed By: #### C BC #### [facility] [address] [place] [address] Dr. Reece Garg Lymphocytes/100 WBC (Bld) 20.8 % Normal 20.5-60.0 [facility] Comment on above: Performed By: #### C BC #### [facility] [address] [place] [address] Dr. Reece Garg MANUAL DIFF REQ NO Normal [facility] Comment on above: Performed By: #### C BC #### [facility] [address] [place] [address] Dr. Reece Garg MCH (RBC) [Entitic mass] 32.3 pg Normal 26.7-34.0 [facility] Comment on above: Performed By: #### C BC #### [facility] [address] [place] [address] Dr. Reece Garg MCHC (RBC) [Mass/Vol] 34.2 g/dL Normal 29.9-35.2 [facility] Comment on above: Performed By: #### C BC #### [facility] [address] [address] [address] Reece Garg MCV (RBC) [Entitic vol] 94.3 fL Normal 81.0-99.0 [facility] Comment on above: Performed By: #### C BC #### [facility] [address] [place] [address] Dr. Reece Garg MONO # 0.6 103/ul Normal 0.3-0.8 [facility] Comment on above: Performed By: #### C BC #### [facility] [address] [place] [address] Dr. Reece Garg Monocytes/100 WBC (Bld) 5.3 % Normal 1.7-12.0 [facility] Comment on above: Performed By: #### C BC #### [facility] [address] [place] [address] Dr. Reece Garg NEUT # 8.1 103/ul Critically high 1.4-6.5 [facility] Comment on above: Performed By: #### C BC #### [facility] [address] [place] [address] Dr. Reece Garg Neutrophils/100 WBC (Bld) 72.6 % Normal 43.0-75.0 [facility] Comment on above: Performed By: #### C BC #### [facility] [address] [place] [address] Dr. Reece Garg Platelet mean volume (Bld) [Entitic vol] 10.2 fL Normal 9.5-13.5 [facility] Comment on above: Performed By: #### C BC #### [facility] [address] [place] [address] Dr. Reece Garg PLT 163 103/ul Normal 150-450 [facility] Comment on above: Performed By: #### C BC #### [facility] [address] [place] [address] Dr. Reece Garg RBC 4.00 106/ul Critically low 4.20-5.40 [facility] Comment on above: Performed By: #### C BC #### [facility] [address] [place] [address] Dr. Reece Garg WBC 11.1 103/ul Critically high 4.0-11.0 [facility] [place] Comment on above: Performed By: #### C BC #### [facility] [address] [address] [address] Reece Garg BASO # 0.0 103/ul Normal 0.0-0.1 [facility] Comment on above: Performed By: #### C BC #### [facility] [address] [place] [address] Dr. Reece Garg Basophils/100 WBC (Bld) 0.3 % Normal 0.2-2.0 [facility] Comment on above: Performed By: #### C BC #### [facility] [address] [place] [address] Dr. Reece Garg EO # 0.1 103/ul Normal 0.0-0.7 [facility] Comment on above: Performed By: #### C BC #### [facility] [address] [place] [address] Dr. Reece Garg Eosinophils/100 WBC (Bld) 0.7 % Critically low 0.9-7.0 [facility] Comment on above: Performed By: #### C BC #### [facility] [address] [place] [address] Dr. Reece Garg Erythrocyte distribution width (RBC) [Ratio] 12.0 % Normal 11.0-15.0 [facility] Comment on above: Performed By: #### C BC #### [facility] [address] [place] [address] Dr. Reece Garg Hematocrit (Bld) [Volume fraction] 41.4 % Normal 36.0-48.0 [facility] Comment on above: Performed By: #### C BC #### [facility] [address] [place] [address] Dr. Reece Garg Hemoglobin (Bld) [Mass/Vol] 14.3 g/dL Normal 12.0-16.0 [facility] Comment on above: Performed By: #### C BC #### [facility] [address] [place] [address] Dr. Reece Garg IG # 0.05 10e3/ul Critically high 0.00-0.03 [facility] Comment on above: Performed By: #### C BC #### [facility] [address] [place] [address] Dr. Reece Garg IG % 0.3 % Normal 0.0-0.5 [facility] Comment on above: Performed By: #### C BC #### [facility] [address] [place] [address] Dr. Reece Garg LYMPH # 1.6 103/ul Normal 1.2-3.8 [facility] Comment on above: Performed By: #### C BC #### [facility] [address] [place] [address] Dr. Reece Garg Lymphocytes/100 WBC (Bld) 10.6 % Critically low 20.5-60.0 [facility] Comment on above: Performed By: #### C BC #### [facility] [address] [place] [address] Dr. Reece Garg MANUAL DIFF REQ NO Normal [facility] Comment on above: Performed By: #### C BC #### [facility] [address] [place] [address] Dr. Reece Garg MCH (RBC) [Entitic mass] 32.1 pg Normal 26.7-34.0 [facility] Comment on above: Performed By: #### C BC #### [facility] [address] [place] [address] Dr. Reece Garg MCHC (RBC) [Mass/Vol] 34.5 g/dL Normal 29.9-35.2 [facility] Comment on above: Performed By: #### C BC #### [facility] [address] [place] [address] Dr. Reece Garg MCV (RBC) [Entitic vol] 93.0 fL Normal 81.0-99.0 [facility] Comment on above: Performed By: #### C BC #### [facility] [address] [place] [address] Dr. Reece Garg MONO # 0.7 103/ul Normal 0.3-0.8 [facility] Comment on above: Performed By: #### C BC #### [facility] [address] [place] [address] Dr. Reece Garg Monocytes/100 WBC (Bld) 4.7 % Normal 1.7-12.0 [facility] Comment on above: Performed By: #### C BC #### [facility] [address] [place] [address] Dr. Reece Garg NEUT # 12.9 103/ul Critically high 1.4-6.5 [facility] [place] Comment on above: Performed By: #### C BC #### [facility] [address] [place] [address] Dr. Reece Garg Neutrophils/100 WBC (Bld) 83.4 % Critically high 43.0-75.0 [facility] Comment on above: Performed By: #### C BC #### [facility] [address] [place] [address] Dr. Reece Garg Platelet mean volume (Bld) [Entitic vol] 10.4 fL Normal 9.5-13.5 [facility] Comment on above: Performed By: #### C BC #### [facility] [address] [place] [address] Dr. Reece Garg PLT 194 103/ul Normal 150-450 [facility] Comment on above: Performed By: #### C BC #### [facility] [address] [place] [address] Dr. Reece Garg RBC 4.45 106/ul Normal 4.20-5.40 [facility] Comment on above: Performed By: #### C BC #### [facility] [address] [place] [address] Dr. Reece Garg WBC 15.4 103/ul Critically high 4.0-11.0 [facility] Comment on above: Performed By: #### C BC #### [facility] [address] [place] [address] ABD/PELV W CONon [...] LAVON ELIZALDE Date: 2023-04-03 01:36 Normal [facility] ER URINE PROFILEon 3 Bilirubin Ql (U) Negative Normal NEGATIVE [facility] Comment on above: Performed By: #### P REGU, ERUR #### [facility] [address] [address] [address] Reece Garg Clarity (U) CLEAR Normal CLEAR [facility] Comment on above: Performed By: #### P REGU, ERUR #### [facility] [address] [address] [address] Reece Garg Color (U) LT. YELLOW Normal YELLOW [facility] Comment on above: Performed By: #### P REGU, ERUR #### [facility] [address] [place] [address] Dr. Reece KHAN A micrscopic examination will be performed if indicated. Normal [facility] Comment on above: Performed By: #### P REGU, ERUR #### [facility] [address] [address] [address] Reece Garg Glucose Ql (U) Negative Normal NEGATIVE [facility] Comment on above: Performed By: #### P REGU, ERUR #### [facility] [address] [place] [address] Dr. Reece Garg Hemoglobin Ql (U) Negative Normal NEGATIVE [facility] Comment on above: Performed By: #### P REGU, ERUR #### [facility] [address] [address] [address] Reece Garg Ketones Ql (U) 15 mg/dl Abnormal NEGATIVE [facility] Comment on above: Performed By: #### P REGU, ERUR #### [facility] [address] [place] [address] Dr. Reece Garg LEUKOCYTES Negative Normal NEGATIVE [facility] Comment on above: Performed By: #### P REGU, ERUR #### [facility] [address] [place] [address] Dr. Reece Garg Nitrite Ql (U) Negative Normal NEGATIVE [facility] Comment on above: Performed By: #### P REGU, ERUR #### [facility] [address] [address] [address] Reece Garg pH (U) 5.5 [pH] Normal 5-9 [facility] Comment on above: Performed By: #### P REGU, ERUR #### [facility] [address] [place] [address] Dr. Reece Garg SPEC GRAVITY <=1.005 Abnormal 1.005-<=1.025 [facility] Comment on above: Performed By: #### P REGU, ERUR #### [facility] [address] [address] [address] Reece Garg UA PROTEIN Negative Normal NEGATIVE/ TRACE [facility] Comment on above: Performed By: #### P REGU, ERUR #### [facility] [address] [place] [address] Dr. Reece Garg UR MICRO IND NOT INDICATED Normal [facility] Comment on above: Performed By: #### P REGU, ERUR #### [facility] [address] [address] [address] Reece Garg Urobilinogen Qn (U) 0.2 {Dariel'U}/dL Normal 0.2 - 1. 0 [facility] Comment on above: Performed By: #### P REGU, ERUR #### [facility] [address] [place] [address] Dr. Reece Garg LIPASEon 04-03-2023 Lipase [Catalytic activity/Vol] 62.0 U/L Critically low 73.0-393.0 [facility] Comment on above: Performed By: #### L IPA, ANDERSON ####[facility] [id number] [address]Dr. Reece Garg MONOon 04-03-2023 Monocytes (Bld) [#/Vol] Negative Normal NEGATIVE [facility] Comment on above: Performed By: #### M JOSE DANIEL #### [facility] [address] [place] [address] Dr. Reece Garg URon 04-03-2023 , QUAL Negative Normal NEGATIVE [facility] Comment on above: Performed By: #### P REGU, ERUR #### [facility] [address] [place] [address] Dr. Reece Garg PROF 14(COMP METB)on 023 Albumin [Mass/Vol] 3.3 g/dL Critically low 3.4-5.0 [facility] Comment on above: Performed By: #### C MP #### [facility] [address] [place] [address] Dr. Reece Garg Albumin/Globulin [Mass ratio] 1.0 {ratio} Normal [facility] Comment on above: Performed By: #### C MP #### [facility] [address] [place] [address] Dr. Reece Garg ALP [Catalytic activity/Vol] 38 U/L Critically low 46-116 [facility] Comment on above: Performed By: #### C MP #### [facility] [address] [place] [address] Dr. Reece Garg ALT [Catalytic activity/Vol] 16 U/L Normal 14-59 [facility] Comment on above: Performed By: #### C MP #### [facility] [address] [place] [address] Dr. Reece Garg Anion gap [Moles/Vol] 10.7 mmol/L Normal [facility] Comment on above: Performed By: #### C MP #### [facility] [address] [place] [address] Dr. Reece Garg AST [Catalytic activity/Vol] 10 U/L Critically low 15-37 [facility] Comment on above: Performed By: #### C MP #### [facility] [address] [place] [address] Dr. Reece Garg Bilirubin [Mass/Vol] 1.0 mg/dL Normal 0.2-1.0 [facility] Comment on above: Performed By: #### C MP #### [facility] [address] [place] [address] Dr. Reece Garg Calcium [Mass/Vol] 8.2 mg/dL Critically low 8.5-10.1 [facility] Comment on above: Performed By: #### C MP #### [facility] [address] [place] [address] Dr. Reece Garg Chloride [Moles/Vol] 106 mmol/L Normal 98-107 [facility] Comment on above: Performed By: #### C MP #### [facility] [address] [place] [address] Dr. Reece Garg CO2 [Moles/Vol] 27.0 mmol/L Normal 21.0-32.0 [facility] Comment on above: Performed By: #### C MP #### [facility] [address] [address] [address] Reece Garg Creatinine [Mass/Vol] 0.77 mg/dL Normal 0.55-1.02 [facility] Comment on above: Performed By: #### C MP #### [facility] [address] [address] [address] Reece Garg EGFR-AF ERITREAN >60 Normal >=60 [facility] Comment on above: Performed By: #### C MP #### [facility] [address] [address] [address] Reece Garg EGFR-NON AF ERITREAN >60 Normal >=60 [facility] Comment on above: Performed By: #### C MP #### [facility] [address] [place] [address] Dr. Reece Garg Globulin (S) [Mass/Vol] 3.3 g/dL Normal [facility] Comment on above: Performed By: #### C MP #### [facility] [address] [address] [address] Reece Garg Glucose [Mass/Vol] 102 mg/dL Normal 74-106 [facility] Comment on above: Performed By: #### C MP #### [facility] [address] [place] [address] Dr. Reece Garg Potassium [Moles/Vol] 3.7 mmol/L Normal 3.5-5.1 [facility] Comment on above: Performed By: #### C MP #### [facility] [facility] [address] [place] [address] Dr. Reece Garg Protein [Mass/Vol] 6.6 g/dL Normal 6.4-8.2 [facility] Comment on above: Performed By: #### C MP #### [facility] [address] [place] [address] Dr. Reece Garg Sodium [Moles/Vol] 140 mmol/L Normal 136-145 [facility] Comment on above: Performed By: #### C MP #### [facility] [address] [place] [address] Dr. Reece Garg Urea nitrogen [Mass/Vol] 8.0 mg/dL Normal 7.0-18.0 [facility] Comment on above: Performed By: #### C MP #### [facility] [address] [place] [address] Dr. Reece Garg Urea nitrogen/Creatinine [Mass ratio] 10.4 mg/mg Normal [facility] Comment on above: Performed By: #### C MP #### [facility] [address] [place] [address] Dr. Reece Garg PROTIMEon 04-03-2023 INR Coag (PPP) [Relative time] 1.06 {INR} Normal [facility] Comment on above: Performed By: #### P TT, PT #### [facility] [address] [place] [address] Dr. Reece Garg INR GUIDELINES SEE BELOW Normal The [facility] Comment on above: Result Comment: JJ RED INR: 2.0 - 3.0 CONDITIONS NOT LISTED BELOW 2.5 - 3.5 FOR PROSTHETIC HEART VALVE REPLACEMENT 2.5 - 3.5 RECURRENT THROMBOSIS Performed By: #### P TT, PT #### [facility] [address] [place] [address] Dr. Reece Garg PT Coag (PPP) [Time] 11.2 s Normal 9.0-11.6 [facility] Comment on above: Performed By: #### P TT, PT #### [facility] [address] [place] [address] Dr. Reece Garg PTTon 04-03-2023 aPTT Coag (Bld) [Time] 28.1 s Normal 22.3-36.2 [facility] Comment on above: Performed By: #### P TT, PT #### [facility] [address] [place] [address] Dr. Reece Garg PAP ACOG PANEL 2: 30 to 65on 07-28-2022 . . Normal [facility] Comment on above: Result Comment: Perf ormed at: WB Performed By: #### [id number] ####[facility] [address] [place] [id number]. Reece Garg Age Gdln ACOG Testing 30-65 Normal [facility] Comment on above: Performed By: #### 4 [id number] ####[facility] [address] [place] [id number]. Reece Garg DIAGNOSIS: Comment Normal [facility] Comment on above: Result Comment: NEGA TIVE FOR INTRAEPITHELIAL LESION OR MALIGNANCY. Performed at: WB Performed By: #### 4 [id number] ####[facility] [address] [place] [id number]. Reece Garg HPV Aptima Negative Normal Negative [facility] Comment on above: Result Comment: This nucleic acid amplification test detects fourteen high-risk HPV types (16,18,31,33,35,39,45,51,52,56,58,59,66,68) without differentiation. Performed at: =G Performed By: #### [id number] ####[facility] [address] [place], [place] [address]Dr. Reece Garg Methodology: Comment Normal [facility] Comment on above: Result Comment: This liquid based ThinPrep(R) pap test was screened with the use of an image guided system. Performed at: WB Performed By: #### [id number] ####[facility] [address] [place], [place] [id number]. Reece Garg Note: Comment Normal [facility] Comment on above: Result Comment: The Pap smear is a screening test designed to aid in the detection of premalignant and malignant conditions of the uterine cervix. It is not a diagnostic procedure and should not be used as the sole means of detecting cervical cancer. Both false-positive and false-negative reports do occur. . Performed at: WB Performed By: #### 4 [id number] ####[facility] [address] [place] [address]Dr. Reece Garg Performed by: Comment Normal [facility] Comment on above: Result Comment: Alexandra Cortez, Morphology Teacher (ASCP) Performed at: WB Performed By: #### [id number] ####[facility] [address] [place], [place] [address]CwDr. Reece Garg Specimen adequacy: Comment Normal [facility] Comment on above: Result Comment: Sati sfactory for evaluation. No endocervical component is identified. Performed at: WB Performed By: #### 4 [id number] ####[facility] [address] [place], [place] [address]Dr. Reece Garg VAGINITIS/VAGINOSIS DNA PROB [place] 07-24-2022 Mala species Negative Normal Negative [facility] Comment on above: Performed By: #### V AGINT #### [facility] [address] [address] [address] Reece Garg Gardnerella vaginalis Positive Abnormal Negative [facility] Comment on above: Performed By: #### V AGINT #### [facility] [address] [address] [address] Reece Garg Trichomonas vaginalis Negative Normal Negative [facility] Comment on above: Performed By: #### V AGINT #### [facility] [address] [address] [address] Reece Garg Consenton 06-03-2020 Consent [id number] 1.00CD:127 Normal [facility] Encounters Encounter Date Encounter Type Care Provider Facility Start: 04-27-2024 ambulatory [facility] Start: 04-04-2024 End: 04-04-2024 ambulatory ADELFO PEREZ Not Available Start: 02-16-2024 End: 02-16-2024 ambulatory THERESA DAVIS Not Available Start: 02-10-2024 End: 02-10-2024 Office outpatient visit 15 minutes Jani Bridges MD Work Phone: [facility] Comment on above: Acute deep vein thro mbosis (DVT) of iliac vein of left lower extremity ([facility]) (Primary Dx); May-Thurner syndrome Start: 02-10-2024 [facility] Start: 01-31-2024 End: 01-31-2024 ambulatory ANGELIA HUDSON Not Available Start: 01-26-2024 End: 01-26-2024 Evaluation and management of inpatient PAUL CHACON [facility] Start: 01-24-2024 End: 01-26-2024 Evaluation and management of inpatient [facility] Start: 01-24-2024 End: 01-24-2024 ambulatory DL BUCK [facility] Start: 01-24-2024 ambulatory [facility] Start: 01-23-2024 End: 01-26-2024 Evaluation and management of inpatient STEPHEN STOKES [facility] Start: 01-23-2024 End: 01-25-2024 Evaluation and management of inpatient [facility] Start: 01-20-2024 End: 01-20-2024 ambulatory ANDERSON FARIHA Not Available Start: 01-07-2024 End: 01-07-2024 ambulatory Angelia Hudson Facility:[facility] Start: 12-14-2023 End: 12-14-2023 ambulatory ANGELIA HUDSON Not Available Start: 11-04-2023 End: 11-04-2023 ambulatory ANGELIA HUDSON Not Available Start: 04-03-2023 End: 04-03-[address] USMAN ALVAREZ . Facility:[facility] Start: 07-26-2022 Encounter for gynecological examination (general) (routine) without abnormal findings DR EARLENE MCDONOUGH . [facility] Start: 07-22-2022 End: 07-22-2022 ambulatory [...] Adult BMI Screening Adult BMI Screen ing [facility] Start: 03-11-2025 Tobacco Screening Tobacco Screening [facility] Start: 01-22-2025 Depression Screening [facility] Start: 02-25-2024 End: 02-10-2025 US.doppler Thoracic and Abdominal Aorta and Inferior Vena Cava and Illiac vessels Vas IVC/iliac duplex complete Vascular Ultrasound Routine Acute deep vein thrombosis (DVT) of iliac vein of left lower extremity (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 Expected: 02/25/2024 (Approximate), Expires: 02/10/2025 [facility] Work Phone: Comment on above: Expected: 02/25/2024 (Approximate), Expires: 02/10/2025 Start: 07-16-2023 Influenza vaccination Influenza Vacc ine [facility] Start: 02-14-2019 DTaP,Tdap and Td Vaccines (6 - Tdap) DTaP,Tdap and Td Vaccines (6 - Tdap) [facility] Start: 2013 Screening for malign ant neoplasm of cervix Pap Smear [facility] Start: 2010 Adult BMI Follow Up Plan Adult BMI Follow Up Plan [facility] Payers Date Payer Category Payer Self-pay 2022 Unknown [employer] OUT OF STATE PPO/TRUST [id number] 2022-Present [phone] [address] [place] [address] [id number] 1992 Unknown [id number] 2.840.1.337983.3.579.2.593 1992 Unknown [id number] 2.840.1.936615.3.579.2.593 1992 Unknown [id number] 2.840.1.333297.3.579.2.1286 1992 Unknown [id number] 2.16.840.1.794893.3.579.2.1286 1992 Unknown [id number] 2.840.1.211368.3.579.2.1286 1992 Unknown [id number] 2.16.840.1.296876.3.579.2.1285 1992 Unknown [id number] 2.16.840.1.251240.3.579.2.1285 1992 Unknown [id number] 2.16.840.1.061519.3.579.2.1285 1992 Unknown [id number] 2.16.840.1.797480.3.579.2.9 1992 Unknown [id number] 2.16.840.1.940146.3.579.2.1258 1992 Unknown [id number] 2.16.840.1.893049.3.579.2.9 1992 Unknown [id number] 2.16.840.1.586348.3.579.2.1258 1992 Unknown [id number] 2.16.840.1.688754.3.579.2.9 1992 Unknown [id number] 2.16.840.1.566917.3.579.2.1258 1992 Unknown [id number] 2.16.840.1.029772.3.579.2.1285 1992 Unknown [id number] 2.16.840.1.630257.3.579.2.1285 1992 Unknown [id number] 2.16.840.1.154768.3.579.2.1286 1957 Medicaid [id number] 1957 Unknown [id number] 1957 Unknown [id number] 1957 Unknown [id number] Social History Date Type Detail Facility Start: 01-23-2024 Tobacco smoking stat [facility] Ex-smoker [facility] History of tobacco use Current smoker [facility] History of tobacco use Cigarette Smoker P [facility] Start: 01-23-2024 Tobacco use and exposure Smokeless tobacco non-user [facility] Start: 01-24-2024 Alcohol intake [facility]-drinker (finding) [facility] Start: 01-23-2024 End: 01-24-2024 History of Social function [facility] Start: 01-23-2024 End: 01-24-2024 [facility] Utilities [facility] Has the electric, [employer], oil, or water company threatened to shut off services in your home in past 12Mo No [facility] How often to you hav e a drink containing alcohol? Never [facility] How many standard drinks containing alcohol do you have on a typical day? Patient does not drink [facility] Start: 1990 Sex Assigned At Not on file [employer] [facility] Medical Equipment Procedure Code Equipment Code Equipment Origin al Text Equipment Identifier Dates Stent Vsc 18mm X 100mm Venous Nitinol Slf Expanding Abre - [id number] Start: 01-24-2024 History of Present illness Narrative 02-10-2024 Jani Bridges MD - 02/10/2024 2:40 PM EDT Note Date & Type Note Facility 02-10-2024 History of Presen t illness Narrative Images from the original note were not included. [facility] [address] [place] [id number] Subjective: Patient ID: Kimberly Silverman is a [...] Problem List Diagnosis DVT (deep venous thrombosis) ([facility]) May-Thurner syndrome Current Outpatient Medications: [...] Vas IVC/iliac duplex complete Jani Bridges MD [address], [place] [address] Referral ID Status Reason Start Date Expiration Date V isits Requested Visits Authorized [id number] Pending Review 02/11/2024 02/10/2025 1 1 Additional Source Comments INFORMATION SOURCE (unrecogn ized section and content) DATE CREATED AUTHOR 06/08/2020 [facility] DATE CREATED AUTHOR AUTHOR'S ORGANIZ ATION 04/23/2023 [facility] DATE CREATED AUTHOR AUTHOR'S ORGANIZ ATION 01/16/2024 [facility] DATE CREATED AUTHOR AUTHOR'S ORGANIZ ATION 01/27/2024 [facility] DATE CREATED AUTHOR AUTHOR'S ORGANIZ ATION 04/06/2024 [facility] DATE CREATED AUTHOR AUTHOR'S ORGANIZ ATION 04/28/2024 [facility] Reason for Visit (unrecogniz ed section and content) Reason Comments Follow-up Thrombectomy lle. DV T and iliac stenting. Per patient she notes some discomfort to lle with mi Care Teams (unrecognized sec tion and content) Rehanger Relationship Specialty Start Date End Date Usman Alvarez MD [address] [place] [address] PCP - General 02/09/24 FOR RECORDS PERTAINING [...] BE BASED ON THE PRIMARY CLINICAL RECORDS. [facility] [employer] provides no warranty or guarantee of the accuracy or completeness of information in this document.
[2024-05-05 10:38] LABS: Erythrocyte Sedimentation Rate 8 mm/hr (<=20)
[2024-05-05 11:44] LABS: C Reactive Protein <0.50 mg/dL (<=0.50)
== END 2024-05-05 09:21 | disposition home or self-care (01) ==
LOC: LAB 09:21
PROVIDERS: PCP Family Medicine; Visit Provider Student in an Organized Health Care Education/Training Program
DX: I87.1 Compression of vein (principal); I70.208 Unspecified atherosclerosis of native arteries of extremities, other extremity
CPT/HCPCS: 36415; 85652; 86140

== ENCOUNTER 2024-05-23 07:31 | Outpatient (RCR) | payer BC, SELFPAY | END 2024-05-25 15:32 | disposition home or self-care (01) | LOC: INF 07:31 | PROVIDERS: PCP Family Medicine; Visit Provider Internal Medicine Hematology & Oncology | DX: I82.402 Acute embolism and thrombosis of unspecified deep veins of left lower extremity (principal); Z79.01 Long term (current) use of anticoagulants; Z87.891 Personal history of nicotine dependence | CPT/HCPCS: G0463 ==

== ENCOUNTER 2024-07-21 07:21 | Outpatient (OUT) | payer BC, SELFPAY ==
--- NOTE | 2024-07-21 07:23 | US_ITS ---
[place] [id number] Patient Name: KIMBERLY MCMAHON MRN: [id number] date: 1990 Sex: F Assigned Patient Location: Current Patient Location: Accession/Order Number: [id number] Exam Date: 07/21/2024 07:30 Report Date: 07/22/2024 06:16 At the request of: USMAN RODRIGEZ Procedure: US arterial duplex LE BI EXAMINATION: US arterial duplex LE BI HISTORY: Deep venous thrombosis I82.409 COMPARISON: No relevant comparison available. TECHNIQUE: Color and Duplex Doppler ultrasound evaluation analysis were performed in the usual manner. FINDINGS: RIGHT LOWER EXTREMITY ARTERIAL: Normal triphasic waveform throughout. External Iliac PSV: 134.49 cm/s External Iliac EDV: 8.48 cm/s Common Femoral PSV: 95.72 cm/s Common Femoral EDV: 8.48 cm/s Superficial Femoral Proximal PSV: 97.33 cm/s Proximal EDV: 6.87 cm/s Mid PSV: 116.78 cm/s Mid EDV: 0 cm/s Distal PSV: 83.24 cm/s Distal EDV: 0 cm/s Popliteal Proximal PSV 42.04 cm/s Popliteal Proximal EDV: 0 cm/s Posterior Tibial Proximal PSV: 58.50 cm/s Proximal EDV: 0 cm/s Mid PSV: 56.31 cm/s Mid EDV: 0 cm/s Distal PSV: 39.83 cm/s Distal EDV: 0 cm/s Anterior Tibial Proximal PSV: 57.37 cm/s Proximal EDV: 0 cm/s Mid PSV: 61.76 cm/s Mid EDV: Distal PSV: 55.19 cm/s Distal EDV: 0 cm/s LEFT LOWER EXTREMITY ARTERIAL; normal triphasic waveform throughout. External Iliac PSV: 102.99 cm/s External Iliac EDV: 0 cm/s Common Femoral PSV: 81.30 cm/s Common Femoral EDV: 0 cm/s Superficial Femoral Proximal PSV: 87.22 cm/s Proximal EDV: 0 cm/s Mid PSV: 120.72 cm/s Mid EDV: 0 cm/s Distal PSV: 67.48 cm/s Distal EDV: 0 cm/s Popliteal Proximal PSV: 38.75 cm/s Popliteal Proximal EDV: 0 cm/s Posterior Tibial Proximal PSV: 59.60 cm/s Proximal EDV: 4.67 cm/s Mid PSV: 49.71 cm/s Mid EDV: 2.47 cm/s Distal PSV: 40.92 cm/s Distal EDV: 0 cm/s Anterior Tibial Proximal PSV: 47.49 cm/s Proximal EDV: 0 cm/s Mid PSV: 59.57 cm/s Mid EDV: 0 cm/s Distal PSV: 54.09 cm/s Distal EDV: 0 cm/s US/US arterial duplex LE BI IMPRESSION: 1. Normal triphasic waveform throughout the right and left lower extremities. 2. No significant vessel stenosis or suspicious findings. Electronically authenticated by: PONCHO FABIAN Date: 07/22/2024 06:16
--- OUTSIDE RECORDS SUMMARY | 2024-07-21 07:24 | XMS_ITS | CCD ---
Author Organization [facility] Care Team Providers Care Milking Worker Name Role Phone RAIN ., DR MARY Attending Unavailable HOY ., DR MARY Admitting Unavailable JAUNY ., DR MARY Primary Care Unavailable HOY ., DR MARY Consulting Unavailable SARAI WILKINS Consulting Unavailable LAVON ELIZALDE Consulting Unavailable SISTER, CUCA Consulting Unavailable ARTURO II, LUL Consulting Unavailable VERNELL ., DL Consulting Unavailable CEASAR ., DR HENAO Admitting Unavailulices e KARTARAN ., DR HENAO Consulting Unavailabl e KARASIK ., DR HENAO Attending Unavailabl e HOY ., DR MARY Primary Care Unavailable Angelia Treviño Attending Unavailable Angelia Treviño Admitting Unavailable ADDISON, JANI Hummel Admitting Unavailable ADDISON, MOHAMED F Attending Unavailable FLORA LAL Referring Unavailable DL BUCK Referring Unavailable STEPHEN STOKES Referring Unavailable PAUL CHACON Attending Unavailable ADDISON, SUYAPAAMED F Attending Unavailable ADDISON, MOHAMED F Referring Unavailable Usman Alvarez MD Primary Care Provider [phone] SUYAPA BRIDGESAMED F Attending Unavailable RAIN USMAN M Primary Care Unavailable ADDISON, MOHAMED F Attending Unavailable HOY, USMAN M Referring Unavailable HOY, USMAN M Primary Care Unavailable ADDISON, MOHAMED F Attending Unavailable RAIN, USMAN M Referring Unavailable RAIN, USMAN M Primary Care Unavailable ANGELIA TREVIÑO Attending Unavailable ANDERSON FRIED Attending Unavailable ANGELIA TREVIÑO Attending Unavailable THERESA DAVIS Attending Unavailable ADELFO PEREZ Attending Unavailable JAUNY, USMAN M Referring Unavailable THERESA DAVIS Attending Unavailable ANDERSON FRIED Attending Unavailable THERESA DAVIS Attending Unavailable ANGELIA [...] in the morning. 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, other extremity] Onset: 04-27-2024 [...] (1 source) Mood disorders Onset: 01-23-2024 01-23-2024 Other diseases of veins and lymphatics (1 [...] [Moles/Vol] 7 mmol/L Normal 5-15 [facility] Comment on above: Performed By: #### C BCA, PINR, 33723-2, BMP #### [facility] ([id number]) [address], [address] [place] [address] Calcium [Mass/Vol] 8.7 mg/dL Normal 8.5-10.5 [facility] Comment on above: Performed By: #### C BCA, PINR, 40587-8, BMP #### [facility] ([id number]) [address], [address] [place] [address] Chloride [Moles/Vol] 106 mmol/L Normal 98-109 [facility] Comment on above: Performed By: #### C BCA, PINR, 88901-7, BMP #### [facility] ([id number]) [address], [address] [place] [address] CO2 [Moles/Vol] 23 mmol/L Normal 22-32 [facility] Comment on above: Performed By: #### C BCA, PINR, 39913-3, BMP #### [facility] ([id number]) [address], [address] [place] [address] Creatinine [Mass/Vol] 0.57 mg/dL Normal 0.40-1.00 [facility] Comment on above: Result Comment: METH OD TRACEABLE TO IDMS STANDARD Performed By: #### C BRENNON PINR, 62169-6, BMP #### [facility] ([id number]) [address], [address] [place] [address] eGFR (CKD-EPI) NON-RACE DEPENDENT >90 Normal >59 [facility] Comment on above: Result Comment: Reported eGFR is based on the CKD-EPI 2020 equation that does not use a race coefficient. Performed By: #### C BRENNON, PINR, 07360-2, BMP #### [facility] ([id number]) [address], [address] [place] [address] Glucose [Mass/Vol] 139 mg/dL High 65-99 [facility] Comment on above: Performed By: #### C BCA, PINR, 41579-4, BMP #### [facility] ([id number]) [address], [address] [place] [address] Potassium [Moles/Vol] 4.3 mmol/L Normal 3.5-5.0 [facility] Comment on above: Performed By: #### C BCA, PINR, 67189-0, BMP #### [facility] ([id number]) [address], [address] [place] [address] Sodium [Moles/Vol] 136 mmol/L Normal 134-146 [facility] Comment on above: Performed By: #### C BCA, PINR, 49884-7, BMP #### [facility] ([id number]) [address], [address] [place] [address] Urea nitrogen [Mass/Vol] 6 mg/dL Normal 5-23 [facility] Comment on above: Performed By: #### C BCA, PINR, 92911-1, BMP #### [facility] ([id number]) [address], [address] [place] [address] CBC AND AUTO DIFFon 01-25-20 24 ABSOLUTE BASOPHIL 0.0 X10E9/L Normal 0.0-0.2 [facility] Comment on above: Performed By: #### C BRENNON PINR, 46596-8, BMP #### [facility] ([id number]) [address], [address] [place] [address] ABSOLUTE NEUTROPHIL 2.9 X10E9/L Normal 1.5-6.6 [facility] Comment on above: Performed By: #### Anastasiya WILLETT PINSlim, 49352-7, BMP #### [facility] ([id number]) [address], [address] [place] [address] Basophils/100 WBC (Bld) 0.1 % Normal [facility] Comment on above: Performed By: #### Anastasiya WILLETT PINR, 61972-7, BMP #### [facility] ([id number]) [address], [address] [place] [address] Eosinophils (Bld) [#/Vol] 0.0 10*3/uL Normal 0.0-0.4 [facility] Comment on above: Performed By: #### Anastasiya WILLETT PINR, 42204-0, BMP #### [facility] ([id number]) [address], [address] [place] [address] Eosinophils/100 WBC (Bld) 0.0 % Normal [facility] Comment on above: Performed By: #### Anastasiya WILLETT PINR, 06373-9, BMP #### [facility] ([id number]) [address], [address] [place] [address] Erythrocyte distribution width (RBC) [Ratio] 11.8 % Normal 11.5-15.0 [facility] Comment on above: Performed By: #### C BRENNON PINR, 99429-4, BMP #### [facility] ([id number]) [address], [address] [place] [address] Hematocrit (Bld) [Volume fraction] 35.5 % Normal 35-47 [facility] Comment on above: Performed By: #### C BRENNON PINR, 46467-1, BMP #### [facility] ([id number]) [address], [address] [place] [address] Hemoglobin (Bld) [Mass/Vol] 12.3 g/dL Normal 11.7-15.5 [facility] Comment on above: Performed By: #### Anastasiya WILLETT PINR, 18141-4, BMP #### [facility] ([id number]) [address], [facility] [address] [place] [address] Lymphocytes (Bld) [#/Vol] 0.4 10*3/uL Low 1.0-3.5 [facility] Comment on above: Performed By: #### Anastasiya WILLETT PINR, 08604-9, BMP #### [facility] ([id number]) [address], [address] [address] Lymphocytes/100 WBC (Bld) 13.1 % Normal [facility] Comment on above: Performed By: #### Anastasiya WILLETT PINR, 22271-1, BMP #### [facility] ([id number]) [address], [address] [place] [address] MCH (RBC) [Entitic mass] 32.3 pg Normal 27-34 [facility] Comment on above: Performed By: #### Anastasiya WILLETT PINR, 64877-8, BMP #### [facility] ([id number]) [address], [address] [place] [address] MCHC (RBC) [Mass/Vol] 34.6 g/dL Normal 32-36 [facility] Comment on above: Performed By: #### C BCA, PINR, 45559-2, BMP #### [facility] ([id number]) [address], [address] [place] [address] MCV (RBC) [Entitic vol] 94 fL Normal 80-100 [facility] Comment on above: Performed By: #### C BCA, PINR, 66941-1, BMP #### [facility] ([id number]) [address], [address] [place] [address] Monocytes (Bld) [#/Vol] 0.1 10*3/uL Normal 0-0.9 [facility] Comment on above: Performed By: #### C BRENNON, PINR, 73503-9, BMP #### [facility] ([id number]) [address], [address] [place] [address] Monocytes/100 WBC (Bld) 2.4 % Normal [facility] Comment on above: Performed By: #### Anastasiya BCA, PINR, 96130-8, BMP #### [facility] ([id number]) [address], [address] [place] [address] Neutrophils/100 WBC (Bld) 84.4 % Normal [facility] Comment on above: Performed By: #### Anastasiya BCA, PINR, 54762-3, BMP #### [facility] ([id number]) [address], [address] [place] [address] Platelet mean volume (Bld) [Entitic vol] 9.1 fL Normal 7-12 [facility] Comment on above: Performed By: #### C BCA, PINR, 27495-7, BMP #### [facility] ([id number]) [address], [address] [place] [address] Platelets (Bld) [#/Vol] 142 10*3/uL Low 150-450 [facility] Comment on above: Performed By: #### Anastasiya BCA, PINR, 68633-3, BMP #### [facility] ([id number]) [address], [address] [place] [address] RBC COUNT 3.79 X10E12/L Low 3.80-5.20 [facility] Comment on above: Performed By: #### C SADAF WILLETT, 23941-8, BMP #### [facility] ([id number]) [address], [address] [place] [address] WBC (Bld) [#/Vol] 3.4 10*3/uL Low 4.0-11.0 [facility] Comment on above: Performed By: #### C SADAF WILLETT, 62401-8, BMP #### [facility] ([id number]) [address], [address] [place] [address] Heparin unfractionated Chrom ogenic method Qn (PPP)on 01-25-2024 ANTI XA UFH 0.68 IU/mL Normal 0.30-0.70 [facility] Comment on above: Result Comment: Opti mal time for testing is 6 hrs post dosage This test is specific for monitoring patients on UFH, and is not recommended for use with other Anti-Xa medications. Performed By: #### C SADAF WILLETT, 70318-5, BMP #### [facility] ([id number]) [address], [address] [place] [address] ANTI CARDIOLIPIN AB IGG IGA IGMon 01-24-2024 MELBA IgA <2.0 Normal 0-19.9 [facility] Comment on above: Performed By: #### A Doreen HEATON #### [facility] ([id number]) [address], [address] [place] [address] MELBA IgG <1.6 Normal 0-19.9 [facility] Comment on above: Performed By: #### A CAChuckyG #### [facility] ([id number]) [address], [address] [place] [address] MELBA IgM <1.5 Normal 0-19.9 [facility] Comment on above: Performed By: #### A CA, B2G #### [facility] ([id number]) [address], [address] [place] [address] BASIC METABOLIC PANLon 01-23 Anion gap [Moles/Vol] 8 mmol/L Normal 5-15 [facility] Comment on above: Performed By: #### 3 274-8, CBCA, BMP #### [facility] ([id number]) [address], [address] [place] [address] Calcium [Mass/Vol] 8.0 mg/dL Low 8.5-10.5 [facility] Comment on above: Performed By: #### 3 274-8, CBCA, BMP #### [facility] ([id number]) [address], [address] [place] [address] Chloride [Moles/Vol] 106 mmol/L Normal 98-109 [facility] Comment on above: Performed By: #### 3 274-8, CBCA, BMP #### [facility] ([id number]) [address], [address] [place] [address] CO2 [Moles/Vol] 22 mmol/L Normal 22-32 [facility] Comment on above: Performed By: #### 3 274-8, CBCA, BMP #### [facility] ([id number]) [address], [address] [place] [address] Creatinine [Mass/Vol] 0.53 mg/dL Normal 0.40-1.00 [facility] Comment on above: Result Comment: METH OD TRACEABLE TO IDMS STANDARD Performed By: #### 3 274-8, CBCA, BMP #### [facility] ([id number]) [address], [address] [place] [address] eGFR (CKD-EPI) NON-RACE DEPENDENT >90 Normal >59 [facility] Comment on above: Result Comment: Reported eGFR is based on the CKD-EPI 2020 equation that does not use a race coefficient. Performed By: #### 3 274-8, CBCA, BMP #### [facility] ([id number]) [address], [address] [place] [address] Glucose [Mass/Vol] 76 mg/dL Normal 65-99 [facility] Comment on above: Performed By: #### 3 274-8, CBCA, BMP #### [facility] ([id number]) [address] [address] [facility] [address] [place] [address] Potassium [Moles/Vol] 3.8 mmol/L Normal 3.5-5.0 [facility] Comment on above: Performed By: #### 3 274-8, CBCA, BMP #### [facility] ([id number]) [address], [facility] [address] [place] [address] Sodium [Moles/Vol] 136 mmol/L Normal 134-146 [facility] Comment on above: Performed By: #### 3 274-8, CBCA, BMP #### [facility] ([id number]) [address], [facility] [address] [place] [address] Urea nitrogen [Mass/Vol] 10 mg/dL Normal 5-23 [facility] Comment on above: Performed By: #### 3 274-8, CBCA, BMP #### [facility] ([id number]) [address], [facility] [address] [place] [address] BETA-2 GP1 AB PANELon 2023 BETA-2 GP1 IgA <2.0 Normal 0.0-19.9 [facility] Comment on above: Performed By: #### C BCA, PINR, 18618-0, BMP #### [facility] ([id number]) [address] [address] [address] [place] [address] BETA-2 GP1 IgG <1.4 Normal 0.0-19.9 [facility] Comment on above: Performed By: #### C BCA, PINR, 22828-9, BMP #### [facility] ([id number]) [address], [address] [place] [address] BETA-2 GP1 IgM <1.5 Normal 0.0-19.9 [facility] Comment on above: Performed By: #### C BCA, PINR, 08166-1, BMP #### [facility] ([id number]) [address], [address] [place] [address] CBC AND AUTO DIFFon 01-24-20 24 ABSOLUTE BASOPHIL 0.0 X10E9/L Normal 0.0-0.2 [facility] Comment on above: Performed By: #### 3 274-8, CBCA, BMP #### [facility] ([id number]) [address], [address] [place] [address] ABSOLUTE NEUTROPHIL 3.7 X10E9/L Normal 1.5-6.6 [facility] Comment on above: Performed By: #### 3 274-8, CBCA, BMP #### [facility] ([id number]) [address], [address] [place] [address] Basophils/100 WBC (Bld) 0.4 % Normal [facility] Comment on above: Performed By: #### 3 274-8, CBCA, BMP #### [facility] ([id number]) [address], [address] [place] [address] Eosinophils (Bld) [#/Vol] 0.2 10*3/uL Normal 0.0-0.4 [facility] Comment on above: Performed By: #### 3 274-8, CBCA, BMP #### [facility] ([id number]) [address], [address] [place] [address] Eosinophils/100 WBC (Bld) 2.9 % Normal [facility] Comment on above: Performed By: #### 3 274-8, CBCA, BMP #### [facility] ([id number]) [address] [facility] [address] [place] [address] Erythrocyte distribution width (RBC) [Ratio] 12.3 % Normal 11.5-15.0 [facility] Comment on above: Performed By: #### 3 274-8, CBCA, BMP #### [facility] ([id number]) [address] [address] Hematocrit (Bld) [Volume fraction] 36.4 % Normal 35-47 [facility] Comment on above: Performed By: #### 3 274-8, CBCA, BMP #### [facility] ([id number]) [address] [address] Hemoglobin (Bld) [Mass/Vol] 12.4 g/dL Normal 11.7-15.5 [facility] Comment on above: Performed By: #### 3 274-8, CBCA, BMP #### [facility] ([id number]) [address] [address] Lymphocytes (Bld) [#/Vol] 1.9 10*3/uL Normal 1.0-3.5 [facility] Comment on above: Performed By: #### 3 274-8, CBCA, BMP #### [facility] ([id number]) [address] [address] Lymphocytes/100 WBC (Bld) 29.7 % Normal [facility] Comment on above: Performed By: #### 3 274-8, CBCA, BMP #### [facility] ([id number]) [address] [address] MCH (RBC) [Entitic mass] 32.5 pg Normal 27-34 [facility] Comment on above: Performed By: #### 3 274-8, CBCA, BMP #### [facility] ([id number]) [address], [address] [place] [address] MCHC (RBC) [Mass/Vol] 34.2 g/dL Normal 32-36 [facility] Comment on above: Performed By: #### 3 274-8, CBCA, BMP #### [facility] ([id number]) [address], [facility] [address] [place] [address] MCV (RBC) [Entitic vol] 95 fL Normal 80-100 [facility] Comment on above: Performed By: #### 3 274-8, CBCA, BMP #### [facility] ([id number]) [address], [address] [address] Monocytes (Bld) [#/Vol] 0.5 10*3/uL Normal 0-0.9 [facility] Comment on above: Performed By: #### 3 274-8, CBCA, BMP #### [facility] ([id number]) [address], [address] [address] Monocytes/100 WBC (Bld) 8.2 % Normal [facility] Comment on above: Performed By: #### 3 274-8, CBCA, BMP #### [facility] ([id number]) [address], [address] [place] [address] Neutrophils/100 WBC (Bld) 58.8 % Normal [facility] Comment on above: Performed By: #### 3 274-8, CBCA, BMP #### [facility] ([id number]) [address], [facility] [address] [place] [address] Platelet mean volume (Bld) [Entitic vol] 8.7 fL Normal 7-12 [facility] Comment on above: Performed By: #### 3 274-8, CBCA, BMP #### [facility] ([id number]) [address], [address] [place] [address] Platelets (Bld) [#/Vol] 128 10*3/uL Low 150-450 [facility] Comment on above: Performed By: #### 3 274-8, CBCA, BMP #### [facility] ([id number]) [address], [address] [address] RBC COUNT 3.83 X10E12/L Normal 3.80-5.20 [facility] Comment on above: Performed By: #### 3 274-8, CBCA, BMP #### [facility] ([id number]) [address] [address] WBC (Bld) [#/Vol] 6.4 10*3/uL Normal 4.0-11.0 [facility] Comment on above: Performed By: #### 3 274-8, CBCA, BMP #### [facility] ([id number]) [address] [address] Heparin unfractionated Chrom ogenic method Qn (PPP)on 01-24-2024 ANTI XA UFH 0.47 IU/mL Normal 0.30-0.70 [facility] Comment on above: Result Comment: Opti mal time for testing is 6 hrs post dosage This test is specific for monitoring patients on UFH, and is not recommended for use with other Anti-Xa medications. Performed By: #### 3 274-8, CBCA, BMP #### [facility] ([id number]) [address] [address] dRVVT/dRVVT.excess phospholi pid Coag (PPP) [Ratio]on 01-24-2024 DILUTE VERONIKA'S VIPER VENOM Negative Normal [facility] Comment on above: Performed By: #### C BCA, PINR, 94353-2, BMP #### [facility] ([id number]) [address] [address] BASIC METABOLIC PANLon 01-22 Anion gap [Moles/Vol] 11 mmol/L Normal 5-15 [facility] Comment on above: Performed By: #### C BCA, PINR, 26229-9, BMP #### [facility] ([id number]) [address], [address] [place] [address] Calcium [Mass/Vol] 8.3 mg/dL Low 8.5-10.5 [facility] Comment on above: Performed By: #### C BCA, PINR, 13318-5, BMP #### [facility] ([id number]) [address], [address] [place] [address] Chloride [Moles/Vol] 106 mmol/L Normal 98-109 [facility] Comment on above: Performed By: #### C BCA, PINR, 87114-6, BMP #### [facility] ([id number]) [address], [address] [place] [address] CO2 [Moles/Vol] 21 mmol/L Low 22-32 [facility] Comment on above: Performed By: #### C BCA, PINR, 13920-5, BMP #### [facility] ([id number]) [address], [address] [place] [address] Creatinine [Mass/Vol] 0.65 mg/dL Normal 0.40-1.00 [facility] Comment on above: Result Comment: METH OD TRACEABLE TO IDMS STANDARD Performed By: #### C BCA, PINR, 30669-5, BMP #### [facility] ([id number]) [address], [address] [place] [address] eGFR (CKD-EPI) NON-RACE DEPENDENT >90 Normal >59 [facility] Comment on above: Result Comment: Reported eGFR is based on the CKD-EPI 2020 equation that does not use a race coefficient. Performed By: #### C BCA, PINR, 90165-3, BMP #### [facility] ([id number]) [address], [address] [place] [address] Glucose [Mass/Vol] 78 mg/dL Normal 65-99 [facility] Comment on above: Performed By: #### C BCA, PINR, 34526-6, BMP #### [facility] ([id number]) [address], [address] [place] [address] Potassium [Moles/Vol] 3.9 mmol/L Normal 3.5-5.0 [facility] Comment on above: Performed By: #### C BCA, PINR, 93948-0, BMP #### [facility] ([id number]) [address], [address] [place] [address] Sodium [Moles/Vol] 138 mmol/L Normal 134-146 [facility] Comment on above: Performed By: #### C BCA, PINR, 40373-6, BMP #### [facility] ([id number]) [address], [address] [place] [address] Urea nitrogen [Mass/Vol] 11 mg/dL Normal 5-23 [facility] Comment on above: Performed By: #### C BCA, PINR, 27038-7, BMP #### [facility] ([id number]) [address], [address] [place] [address] CBC AND AUTO DIFFon 01-23-20 24 ABSOLUTE BASOPHIL 0.0 X10E9/L Normal 0.0-0.2 [facility] Comment on above: Performed By: #### C BCA, PINR, 68621-0, BMP #### [facility] ([id number]) [address], [address] [place] [address] ABSOLUTE NEUTROPHIL 6.6 X10E9/L Normal 1.5-6.6 [facility] Comment on above: Performed By: #### C BCA, PINR, 99577-2, BMP #### [facility] ([id number]) [address], [address] [place] [address] Basophils/100 WBC (Bld) 0.3 % Normal [facility] Comment on above: Performed By: #### C BRENNON PINR, 36786-4, BMP #### [facility] ([id number]) [address], [address] [place] [address] Eosinophils (Bld) [#/Vol] 0.1 10*3/uL Normal 0.0-0.4 [facility] Comment on above: Performed By: #### C BRENNON PINR, 20799-0, BMP #### [facility] ([id number]) [address] [place] [address] Eosinophils/100 WBC (Bld) 0.8 % Normal [facility] Comment on above: Performed By: #### Anastasiya WILLETT, PINR, 06808-8, BMP #### [facility] ([id number]) [address], [address] [place] [address] Erythrocyte distribution width (RBC) [Ratio] 12.4 % Normal 11.5-15.0 [facility] Comment on above: Performed By: #### Anastasiya WILLETT, PINR, 21131-0, BMP #### [facility] ([id number]) [address], [address] [place] [address] Hematocrit (Bld) [Volume fraction] 39.4 % Normal 35-47 [facility] Comment on above: Performed By: #### C BRENNON, PINR, 26614-1, BMP #### [facility] ([id number]) [address], [address] [place] [address] Hemoglobin (Bld) [Mass/Vol] 13.8 g/dL Normal 11.7-15.5 [facility] Comment on above: Performed By: #### C BRENNON, PINR, 29164-0, BMP #### [facility] ([id number]) [address], [address] [place] [address] Lymphocytes (Bld) [#/Vol] 1.9 10*3/uL Normal 1.0-3.5 [facility] Comment on above: Performed By: #### C BRENNNO, PINR, 85396-7, BMP #### [facility] ([id number]) [address], [facility] [address] [place] [address] Lymphocytes/100 WBC (Bld) 20.6 % Normal [facility] Comment on above: Performed By: #### C BRENNON, PINR, 01615-4, BMP #### [facility] ([id number]) [address], [facility] [address] [place] [address] MCH (RBC) [Entitic mass] 32.7 pg Normal 27-34 [facility] Comment on above: Performed By: #### Anastasiya WILLETT, PINR, 83736-4, BMP #### [facility] ([id number]) [address] [facility] [address] [place] [address] MCHC (RBC) [Mass/Vol] 34.9 g/dL Normal 32-36 [facility] Comment on above: Performed By: #### C BRENNON, PINR, 82191-8, BMP #### [facility] ([id number]) [address], [address] [address] MCV (RBC) [Entitic vol] 94 fL Normal 80-100 [facility] Comment on above: Performed By: #### C BRENNON, PINR, 56698-8, BMP #### [facility] ([id number]) [address], [facility] [address] [place] [address] Monocytes (Bld) [#/Vol] 0.6 10*3/uL Normal 0-0.9 [facility] Comment on above: Performed By: #### Anastasiya WILLETT, PINR, 75344-8, BMP #### [facility] ([id number]) [address], [address] [place] [address] Monocytes/100 WBC (Bld) 6.0 % Normal [facility] Comment on above: Performed By: #### Anastasiya WILLETT, PINR, 35029-1, BMP #### [facility] ([id number]) [address], [facility] [address] [place] [address] Neutrophils/100 WBC (Bld) 72.3 % Normal [facility] Comment on above: Performed By: #### C BRENNON, PINR, 55584-4, BMP #### [facility] ([id number]) [address], [facility] [address] [place] [address] Platelet mean volume (Bld) [Entitic vol] 8.4 fL Normal 7-12 [facility] Comment on above: Performed By: #### Anastasiya WILLETT, PINR, 13601-9, BMP #### [facility] ([id number]) [address], [address] [place] [address] Platelets (Bld) [#/Vol] 156 10*3/uL Normal 150-450 [facility] Comment on above: Performed By: #### Anastasiya WILLETT, PINR, 85616-5, BMP #### [facility] ([id number]) [address], [facility] [address] [place] [address] RBC COUNT 4.21 X10E12/L Normal 3.80-5.20 [facility] Comment on above: Performed By: #### Anastasiya BCA, PINR, 53136-9, BMP #### [facility] ([id number]) [address], [address] [place] [address] WBC (Bld) [#/Vol] 9.1 10*3/uL Normal 4.0-11.0 [facility] Comment on above: Performed By: #### Anastasiya WILLETT, PINR, 01893-2, BMP #### [facility] ([id number]) [address], [address] [place] [address] CT CTV ABD AND PELVISon 01-13 CT [...] on 01/23/2024 4:56 PM Normal [facility] Heparin unfractionated Chrom ogenic method Qn (PPP)on 01-23-2024 ANTI XA UFH 0.44 IU/mL Normal 0.30-0.70 [facility] Comment on above: Result Comment: Opti mal time for testing is 6 hrs post dosage This test is specific for monitoring patients on UFH, and is not recommended for use with other Anti-Xa medications. Performed By: #### 3 [id number] #### [facility] ([id number]) [address], [address] [place] [address] PROTIME AND INRon 01-23-2024 INR Coag (PPP) [Relative time] 1.1 {INR} Normal 0.8-1.1 [facility] Comment on above: Performed By: #### C BCA, PINR, 39852-9, BMP #### [facility] ([id number]) [address], [address] [place] [address] PT Coag (PPP) [Time] 12.3 s Normal 9.8-13.2 [facility] Comment on above: Performed By: #### C BCA, PINR, 12996-5, BMP #### [facility] ([id number]) [address], [address] [place] [address] aPTT Coag (PPP) [Time]on aPTT Coag (Bld) [Time] 51 s High 26-37 [facility] Comment on above: Performed By: #### C BCA, PINR, 13810-9, BMP #### [facility] ([id number]) [address], [address] [place] [address] Angelito 01-07-2024 L Specimen: [id number] Received: 01/10/24 Status: MICHAEL Waldron Num: [id number] Spec Type: Surgical Subm Dr: Angelia Treviño Tissues: A Fallopian Tube - Sterilization (BILATERAL) Procedures: HE/3, Gross/Micro L2 Age/ Patient Sex Location Account Attending Physician Kimberly Silverman 33/F [facility] [id number] Angelia Treviño SPEC NUM: [id number] RECD: 01/10/24 STATUS: MICHAEL WALDRON NUM: [id number] ANICETO: 01/07/[address]: Angelia Treviño ENTERED: 01/10/24 [facility] DR: Lopez,Lab SPEC TYPE: Surgical [...] markedly dilated lumens throughout all 3 segments. Science Writer sections are submitted in 3 cassettes as follows: A1 - Cross-sections of shortest segment A2 - Cross-sections intermediate length segment A3 - Cross-sections longest segment CPT Codes 84335 -------- -------- Specimen: [id number] Received: 01/10/24 Status: MICHAEL Waldron Num: [id number] Spec Type: Surgical Subm Dr: Angelia Treviño Tissues: A Fallopian Tube - Sterilization (BILATERAL) Procedures: HE/3, Gross/Micro L2 -------- Patient: Kimberly Silverman [id number] (Continued) -------- Signed (signature on file) Jani Garcia MD 01/15/24 0853 [facility] AMYLASEon 04-03-2023 Amylase [Catalytic activity/Vol] 62 U/L Normal 25-115 [facility] Comment on above: Performed By: #### L ANDERSON OVALLES ####[facility] [id number] [address]Dr. Reece Garg CBC AUTO DIFFon 04-03-2023 BASO # 0.0 103/ul Normal 0.0-0.1 [facility] [place] [facility] Comment on above: Performed By: #### C BC #### [facility] [address] [address] [address] Reece Garg Basophils/100 WBC (Bld) 0.3 % Normal 0.2-2.0 [facility] [place] [facility] Comment on above: Performed By: #### C BC #### [facility] [address] [address] [address] Reece Garg EO # 0.1 103/ul Normal 0.0-0.7 [facility] [place] [facility] Comment on above: Performed By: #### C BC #### [facility] [address] [address] [address] Reece Garg Eosinophils/100 WBC (Bld) 0.6 % Critically low 0.9-7.0 [facility] [place] [facility] Comment on above: Performed By: #### C BC #### [facility] [address] [address] [address] Reece Garg Erythrocyte distribution width (RBC) [Ratio] 11.9 % Normal 11.0-15.0 [facility] [place] [facility] Comment on above: Performed By: #### C BC #### [facility] [address] [place] [address] Dr. Reece Garg Hematocrit (Bld) [Volume fraction] 37.7 % Normal 36.0-48.0 [facility] [place] [facility] Comment on above: Performed By: #### C BC #### [facility] [address] [place] [address] Dr. Reece Garg Hemoglobin (Bld) [Mass/Vol] 12.9 g/dL Normal 12.0-16.0 [facility] [place] [facility] Comment on above: Performed By: #### C BC #### [facility] [address] [place] [address] Dr. Reece Garg IG # 0.05 10e3/ul Critically high 0.00-0.03 [facility] Comment on above: Performed By: #### C BC #### [facility] [address] [place] [address] Dr. Reece Garg IG % 0.4 % Normal 0.0-0.5 [facility] [place] [facility] Comment on above: Performed By: #### C BC #### [facility] [address] [place] [address] Dr. Reece Garg LYMPH # 2.3 103/ul Normal 1.2-3.8 [facility] [place] [facility] Comment on above: Performed By: #### C BC #### [facility] [address] [place] [address] Dr. Reece Garg Lymphocytes/100 WBC (Bld) 20.8 % Normal 20.5-60.0 [facility] [place] [facility] Comment on above: Performed By: #### C BC #### [facility] [address] [place] [address] Dr. Reece Garg MANUAL DIFF REQ NO Normal [facility] Comment on above: Performed By: #### C BC #### [facility] [address] [place] [address] Dr. Reece Garg MCH (RBC) [Entitic mass] 32.3 pg Normal 26.7-34.0 [facility] [place] [facility] Comment on above: Performed By: #### C BC #### [facility] [address] [place] [address] Dr. Reece Garg MCHC (RBC) [Mass/Vol] 34.2 g/dL Normal 29.9-35.2 [facility] [place] [facility] Comment on above: Performed By: #### C BC #### [facility] [address] [address] [address] Reece Garg MCV (RBC) [Entitic vol] 94.3 fL Normal 81.0-99.0 [facility] [place] [facility] Comment on above: Performed By: #### C BC #### [facility] [address] [address] [address] Reece Garg MONO # 0.6 103/ul Normal 0.3-0.8 [facility] [place] [facility] Comment on above: Performed By: #### C BC #### [facility] [address] [place] [address] Dr. Reece Garg Monocytes/100 WBC (Bld) 5.3 % Normal 1.7-12.0 [facility] [place] [facility] Comment on above: Performed By: #### C BC #### [facility] [address] [place] [address] Dr. Reece Garg NEUT # 8.1 103/ul Critically high 1.4-6.5 [facility] Comment on above: Performed By: #### C BC #### [facility] [address] [place] [address] Dr. Reece Garg Neutrophils/100 WBC (Bld) 72.6 % Normal 43.0-75.0 [facility] [place] [facility] Comment on above: Performed By: #### C BC #### [facility] [address] [place] [address] Dr. Reece Garg Platelet mean volume (Bld) [Entitic vol] 10.2 fL Normal 9.5-13.5 [facility] Comment on above: Performed By: #### C BC #### [facility] [address] [place] [address] Dr. Reece Garg PLT 163 103/ul Normal 150-450 [facility] Comment on above: Performed By: #### C BC #### [facility] [address] [place] [address] Dr. Reece Garg RBC 4.00 106/ul Critically low 4.20-5.40 [facility] Comment on above: Performed By: #### C BC #### [facility] [address] [place] [address] Dr. Reece Garg WBC 11.1 103/ul Critically high 4.0-11.0 [facility] Comment on above: Performed By: #### C BC #### [facility] [address] [place] [address] Dr. Reece Garg BASO # 0.0 103/ul Normal 0.0-0.1 [facility] [place] [facility] Comment on above: Performed By: #### C BC #### [facility] [address] [place] [address] Dr. Reece Garg Basophils/100 WBC (Bld) 0.3 % Normal 0.2-2.0 [facility] [place] [facility] Comment on above: Performed By: #### C BC #### [facility] [address] [place] [address] Dr. Reece Garg EO # 0.1 103/ul Normal 0.0-0.7 [facility] [place] [facility] Comment on above: Performed By: #### C BC #### [facility] [address] [place] [address] Dr. Reece Garg Eosinophils/100 WBC (Bld) 0.7 % Critically low 0.9-7.0 [facility] [place] [facility] Comment on above: Performed By: #### C BC #### [facility] [address] [place] [address] Dr. Reece Garg Erythrocyte distribution width (RBC) [Ratio] 12.0 % Normal 11.0-15.0 [facility] [place] [facility] Comment on above: Performed By: #### C BC #### [facility] [address] [place] [address] Dr. Reece Garg Hematocrit (Bld) [Volume fraction] 41.4 % Normal 36.0-48.0 [facility] [place] [facility] Comment on above: Performed By: #### C BC #### [facility] [address] [place] [address] Dr. Reece Garg Hemoglobin (Bld) [Mass/Vol] 14.3 g/dL Normal 12.0-16.0 [facility] [place] [facility] Comment on above: Performed By: #### C BC #### [facility] [address] [place] [address] Dr. Reece Garg IG # 0.05 10e3/ul Critically high 0.00-0.03 [facility] Comment on above: Performed By: #### C BC #### [facility] [address] [place] [address] Dr. Reece Garg IG % 0.3 % Normal 0.0-0.5 [facility] [place] [facility] Comment on above: Performed By: #### C BC #### [facility] [address] [place] [address] Dr. Reece Garg LYMPH # 1.6 103/ul Normal 1.2-3.8 [facility] [place] [facility] Comment on above: Performed By: #### C BC #### [facility] [address] [place] [address] Dr. Reece Garg Lymphocytes/100 WBC (Bld) 10.6 % Critically low 20.5-60.0 [facility] [place] [facility] Comment on above: Performed By: #### C BC #### [facility] [address] [place] [address] Dr. Reece Garg MANUAL DIFF REQ NO Normal [facility] Comment on above: Performed By: #### C BC #### [facility] [address] [place] [address] Dr. Reece Garg MCH (RBC) [Entitic mass] 32.1 pg Normal 26.7-34.0 [facility] [place] [facility] Comment on above: Performed By: #### C BC #### [facility] [address] [place] [address] Dr. Reece Garg MCHC (RBC) [Mass/Vol] 34.5 g/dL Normal 29.9-35.2 [facility] [place] [facility] Comment on above: Performed By: #### C BC #### [facility] [address] [place] [address] Dr. Reece Garg MCV (RBC) [Entitic vol] 93.0 fL Normal 81.0-99.0 [facility] [place] [facility] Comment on above: Performed By: #### C BC #### [facility] [address] [address] [address] Reece Garg MONO # 0.7 103/ul Normal 0.3-0.8 [facility] Comment on above: Performed By: #### C BC #### [facility] [address] [place] [address] Dr. Reece Garg Monocytes/100 WBC (Bld) 4.7 % Normal 1.7-12.0 [facility] [place] [facility] Comment on above: Performed By: #### C BC #### [facility] [address] [place] [address] Dr. Reece Garg NEUT # 12.9 103/ul Critically high 1.4-6.5 [facility] Comment on above: Performed By: #### C BC #### [facility] [address] [place] [address] Dr. Reece Garg Neutrophils/100 WBC (Bld) 83.4 % Critically high 43.0-75.0 [facility] [place] [facility] Comment on above: Performed By: #### C BC #### [facility] [address] [place] [address] Dr. Reece Garg Platelet mean volume (Bld) [Entitic vol] 10.4 fL Normal 9.5-13.5 [facility] [place] [facility] Comment on above: Performed By: #### C BC #### [facility] [address] [place] [address] Dr. Reece Garg PLT 194 103/ul Normal 150-450 [facility] Comment on above: Performed By: #### C BC #### [facility] [address] [place] [address] Dr. Reece Garg RBC 4.45 106/ul Normal 4.20-5.40 [facility] Comment on above: Performed By: #### C BC #### [facility] [address] [place] [address] Dr. Reece Garg WBC 15.4 103/ul Critically high 4.0-11.0 [facility] Comment on above: Performed By: #### C BC #### [facility] [address] [place], [place] [address] ABD/PELV W CONon [...] LAVON ELIZALDE Date: 2023-04-03 01:36 Normal [facility] ER URINE PROFILEon 3 Bilirubin Ql (U) Negative Normal NEGATIVE [facility] Comment on above: Performed By: #### P REGU, ERUR #### [facility] [address] [place] [address] Dr. Reece Garg Clarity (U) CLEAR Normal CLEAR [facility] [place] [facility] Comment on above: Performed By: #### P REGU, ERUR #### [facility] [address] [place] [address] Dr. Reece Garg Color (U) LT. YELLOW Normal YELLOW [facility] [place] [facility] Comment on above: Performed By: #### P REGU, ERUR #### [facility] [address] [place] [address] Dr. Reece BERNABED A micrscopic examination will be performed if indicated. Normal [facility] Comment on above: Performed By: #### P REGU, ERUR #### [facility] [address] [place] [address] Dr. Reece Garg Glucose Ql (U) Negative Normal NEGATIVE [facility] Comment on above: Performed By: #### P REGU, ERUR #### [facility] [address] [place] [address] Dr. Reece Garg Hemoglobin Ql (U) Negative Normal NEGATIVE [facility] Comment on above: Performed By: #### P REGU, ERUR #### [facility] [address] [place] [address] Dr. Reece Garg Ketones Ql (U) 15 mg/dl Abnormal NEGATIVE [facility] Comment on above: Performed By: #### P REGU, ERUR #### [facility] [address] [place] [address] Dr. Reece Garg LEUKOCYTES Negative Normal NEGATIVE [facility] [place] [facility] Comment on above: Performed By: #### P REGU, ERUR #### [facility] [address] [place] [address] Dr. Reece Garg Nitrite Ql (U) Negative Normal NEGATIVE [facility] Comment on above: Performed By: #### P REGU, ERUR #### [facility] [address] [place] [address] Dr. Reece Garg pH (U) 5.5 [pH] Normal 5-9 [facility] Comment on above: Performed By: #### P REGU, ERUR #### [facility] [address] [address] [address] Reece Garg SPEC GRAVITY <=1.005 Abnormal 1.005-<=1.025 [facility] Comment on above: Performed By: #### P REGU, ERUR #### [facility] [address] [address] [address] Reece Garg UA PROTEIN Negative Normal NEGATIVE/ TRACE [facility] Comment on above: Performed By: #### P REGU, ERUR #### [facility] [address] [address] [address] Reece Garg UR MICRO IND NOT INDICATED Normal [facility] Comment on above: Performed By: #### P REGU, ERUR #### [facility] [address] [address] [address] Reece Garg Urobilinogen Qn (U) 0.2 {Dariel'U}/dL Normal 0.2 - 1. 0 [facility] Comment on above: Performed By: #### P REGU, ERUR #### [facility] [address] [address] [address] Reece Garg LIPASEon 04-03-2023 Lipase [Catalytic activity/Vol] 62.0 U/L Critically low 73.0-393.0 [facility] [place] [facility] Comment on above: Performed By: #### L IPA, ANDERSON ####[facility] [address] [address]Dr. Reece Garg MONOon 04-03-2023 Monocytes (Bld) [#/Vol] Negative Normal NEGATIVE [facility] Comment on above: Performed By: #### M JOSE DANIEL #### [facility] [address] [address] [address] Reece Garg URon 04-03-2023 , QUAL Negative Normal NEGATIVE [facility] Comment on above: Performed By: #### P REGU, ERUR #### [facility] [address] [place] [address] Dr. Reece Garg PROF 14(COMP METB)on 023 Albumin [Mass/Vol] 3.3 g/dL Critically low 3.4-5.0 [facility] Comment on above: Performed By: #### C MP #### [facility] [address] [place] [address] Dr. Reece Garg Albumin/Globulin [Mass ratio] 1.0 {ratio} Normal [facility] [place] [facility] Comment on above: Performed By: #### C MP #### [facility] [address] [address] [address] Reece Garg ALP [Catalytic activity/Vol] 38 U/L Critically low 46-116 [facility] [place] [facility] Comment on above: Performed By: #### C MP #### [facility] [address] [place] [address] Dr. Reece Garg ALT [Catalytic activity/Vol] 16 U/L Normal 14-59 [facility] [place] [facility] Comment on above: Performed By: #### C MP #### [facility] [address] [place] [address] Dr. Reece Garg Anion gap [Moles/Vol] 10.7 mmol/L Normal [facility] [place] [facility] Comment on above: Performed By: #### C MP #### [facility] [address] [place] [address] Dr. Reece Garg AST [Catalytic activity/Vol] 10 U/L Critically low 15-37 [facility] [place] [facility] Comment on above: Performed By: #### C MP #### [facility] [address] [place] [address] Dr. Reece Garg Bilirubin [Mass/Vol] 1.0 mg/dL Normal 0.2-1.0 [facility] [place] [facility] Comment on above: Performed By: #### C MP #### [facility] [address] [place] [address] Dr. Reece Garg Calcium [Mass/Vol] 8.2 mg/dL Critically low 8.5-10.[address] [facility] Comment on above: Performed By: #### C MP #### [facility] [address] [place] [address] Dr. Reece Garg Chloride [Moles/Vol] 106 mmol/L Normal 98-107 [facility] [place] [facility] Comment on above: Performed By: #### C MP #### [facility] [address] [address] [address] Reece Garg CO2 [Moles/Vol] 27.0 mmol/L Normal 21.0-32.0 [facility] Comment on above: Performed By: #### C MP #### [facility] [address] [address] [address] Reece Garg Creatinine [Mass/Vol] 0.77 mg/dL Normal 0.55-1.02 [facility] Comment on above: Performed By: #### C MP #### [facility] [address] [address] [address] Reece Garg EGFR-AF VINCENTIAN >60 Normal >=60 [facility] Comment on above: Performed By: #### C MP #### [facility] [address] [address] [address] Reece Garg EGFR-NON AF VINCENTIAN >60 Normal >=60 [facility] Comment on above: Performed By: #### C MP #### [facility] [address] [address] [address] Reece Garg Globulin (S) [Mass/Vol] 3.3 g/dL Normal [facility] [place] [facility] Comment on above: Performed By: #### C MP #### [facility] [address] [address] [address] Reece Garg Glucose [Mass/Vol] 102 mg/dL Normal 74-[address] [facility] Comment on above: Performed By: #### C MP #### [facility] [address] [address] [address] Reece Garg Potassium [Moles/Vol] 3.7 mmol/L Normal 3.5-5.1 [facility] Comment on above: Performed By: #### C MP #### [facility] [address] [address] [address] Reece Garg Protein [Mass/Vol] 6.6 g/dL Normal 6.4-8.[address] [facility] Comment on above: Performed By: #### C MP #### [facility] [address] [place] [address] Dr. Reece Garg Sodium [Moles/Vol] 140 mmol/L Normal 136-[address] [facility] Comment on above: Performed By: #### C MP #### [facility] [address] [place] [address] Dr. Reece Garg Urea nitrogen [Mass/Vol] 8.0 mg/dL Normal 7.0-18.0 [facility] [place] [facility] Comment on above: Performed By: #### C MP #### [facility] [address] [place] [address] Dr. Reece Garg Urea nitrogen/Creatinine [Mass ratio] 10.4 mg/mg Normal [facility] [place] [facility] Comment on above: Performed By: #### C MP #### [facility] [address] [place] [address] Dr. Reece Garg PROTIMEon 04-03-2023 INR Coag (PPP) [Relative time] 1.06 {INR} Normal [facility] [place] [facility] Comment on above: Performed By: #### P TT, PT #### [facility] [address] [place] [address] Dr. Reece Garg INR GUIDELINES SEE BELOW Normal [facility] Comment on above: Result Comment: JJ RED INR: 2.0 - 3.0 CONDITIONS NOT LISTED BELOW 2.5 - 3.5 FOR PROSTHETIC HEART VALVE REPLACEMENT 2.5 - 3.5 RECURRENT THROMBOSIS Performed By: #### P TT, PT #### [facility] [address] [place] [address] Dr. Reece Garg PT Coag (PPP) [Time] 11.2 s Normal 9.0-11.6 [facility] [place] [facility] Comment on above: Performed By: #### P TT, PT #### [facility] [address] [place] [address] Dr. Reece Garg PTTon 04-03-2023 aPTT Coag (Bld) [Time] 28.1 s Normal 22.3-36.2 [facility] [place] [facility] Comment on above: Performed By: #### P TT, PT #### [facility] [address] [place] [address] Dr. Reece Garg PAP ACOG PANEL 2: 30 to 65on 07-28-2022 . . Normal [facility] [place] [facility] Comment on above: Result Comment: Perf ormed at: WB Performed By: #### [id number] ####[facility] [address] [address]DrHardik Garg Age Gdln ACOG Testing 30-65 Normal [facility] [place] [facility] Comment on above: Performed By: #### [id number] ####[facility] [address] [address]DrHardik Garg DIAGNOSIS: Comment Normal [facility] [place] [facility] Comment on above: Result Comment: NEGA TIVE FOR INTRAEPITHELIAL LESION OR MALIGNANCY. Performed at: WB Performed By: #### [id number] ####[facility] [address] [place], [place] [address]DrHardik Garg HPV Aptima Negative Normal Negative [facility] [place] [facility] Comment on above: Result Comment: This nucleic acid amplification test detects fourteen high-risk HPV types (16,18,31,33,35,39,45,51,52,56,58,59,66,68) without differentiation. Performed at: =G Performed By: #### [id number] ####[facility] [address] [place], [place] [address]DrHardik Garg Methodology: Comment [facility] Comment on above: Result Comment: This liquid based ThinPrep(R) pap test was screened with the use of an image guided system. Performed at: WB Performed By: #### [id number] ####[facility] [id number] [address]DrHardik Garg Note: Comment Normal [facility] Comment on above: Result Comment: The Pap smear is a screening test designed to aid in the detection of premalignant and malignant conditions of the uterine cervix. It is not a diagnostic procedure and should not be used as the sole means of detecting cervical cancer. Both false-positive and false-negative reports do occur. . Performed at: WB Performed By: #### [id number] ####[facility] [address] [place], [place] [address]DrHardik Garg Performed by: Comment Normal [facility] Comment on above: Result Comment: Alexandra Cortez, Automatic Pinsetter Adjuster (ASCP) Performed at: WB Performed By: #### [id number] ####[facility] [id number] [address]DrHardik Garg Specimen adequacy: Comment Normal [facility] Comment on above: Result Comment: Sati sfactory for evaluation. No endocervical component is identified. Performed at: WB Performed By: #### [id number] ####[facility] [address] [address]Dr. Reece Garg VAGINITIS/VAGINOSIS DNA PROB Erwin 07-24-2022 Mala species Negative Normal Negative [facility] Comment on above: Performed By: #### V AGINT #### [facility] [address] [address] [address] Reece Garg Gardnerella vaginalis Positive Abnormal Negative [facility] Comment on above: Performed By: #### V AGINT #### [facility] [address] [address] [address] Reece Garg Trichomonas vaginalis Negative Normal Negative [facility] Comment on above: Performed By: #### V AGINT #### [facility] [address] [address] [address] Reece Garg [place] 06-03-2020 Consent [id number]# 1.00CD:127 Normal [facility] Encounters Encounter Date Encounter Type Care Provider Facility Start: 07-18-2024 End: 07-18-2024 ambulatory THERESA DAVIS Not Available Start: 07-10-2024 End: 07-10-2024 ambulatory ANDERSON FRIED Not Available Start: 06-29-2024 End: 06-29-2024 ambulatory THERESA DAVIS Not Available Start: 05-25-2024 End: 05-25-2024 ambulatory [facility] Start: 04-27-2024 ambulatory [facility] Start: 04-04-2024 End: 04-04-2024 ambulatory ADELFO PEREZ Not Available Start: 02-16-2024 End: 02-16-2024 ambulatory THERESA Martinez RYAN Not Available Start: 02-10-2024 End: 02-10-2024 Office outpatient visit 15 minutes Jani Bridges MD Work Phone: [facility] Comment on above: Acute deep vein thro mbosis (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); May-Thurner syndrome Start: 02-10-2024 ambulatory [facility] Start: 01-31-2024 End: 01-31-2024 ambulatory ANGELIA HUDSON Not Available Start: 01-26-2024 End: 01-26-2024 [facility] Start: 01-24-2024 End: 01-26-2024 Evaluation and management of inpatient [facility] Start: 01-24-2024 End: 01-24-2024 ambulatory DL BUCK [facility] Start: 01-24-2024 ambulatory [facility] Start: 01-23-2024 End: 01-26-2024 Evaluation and management of inpatient STEPHEN STOKES [facility] Start: 01-23-2024 End: 01-25-2024 Evaluation and management of inpatient [facility] Start: 01-20-2024 End: 01-20-2024 ambulatory ANDERSON FRIED Not Available Start: 01-07-2024 End: 01-07-2024 ambulatory Angelia Hudson Facility:[facility] Start: 12-14-2023 End: 12-14-2023 ambulatory ANGELIA HUDSON Not Available Start: 11-04-2023 End: 11-04-2023 ambulatory ANGELIA HUDSON Not Available Start: 04-03-2023 End: 04-03-[address] USMAN ALVAREZ . Facility: Start: 07-26-2022 Encounter for gynecological examination (general) (routine) without abnormal findings DR EALRENE MCDONOUGH . [facility] Start: 07-22-2022 End: 07-22-2022 ambulatory [...] Adult [facility] Start: 01-23-2025 [facility] Start: 01-22-2025 Depression Screening [facility] Start: 02-25-2024 End: 02-10-2025 US.doppler Thoracic and Abdominal Aorta and Inferior Vena Cava and Illiac vessels Vas IVC/iliac duplex complete Vascular Ultrasound Routine Acute deep vein thrombosis (DVT) of iliac vein of left lower extremity (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 Expected: 02/25/2024 (Approximate), Expires: 02/10/2025 [employer] Work Phone: Comment on above: Expected: 02/25/2024 (Approximate), Expires: 02/10/2025 Start: 07-16-2023 Influenza vaccination Influenza Vacc ine [facility] Start: 02-14-2019 DTaP,Tdap and Td Vaccines (6 - Tdap) DTaP,Tdap and Td Vaccines (6 - Tdap) [facility] Start: 2013 Screening for malign ant neoplasm of cervix [facility]ear [facility] Start: 2010 Adult BMI Follow Up Plan Adult BMI Follow Up Plan [facility] [employer] Payers Date Payer Category Payer Self-pay 2022 Unknown BABATUNDE JIMENEZ OUT OF STATE PPO/TRUST [id number] 2022-Present [phone] [address] [place] [address] [id number] 1992 Unknown [id number] 2.16.840.1.762552.3.579.2.593 1992 Unknown [id number] 2.16.840.1.031967.3.579.2.593 1992 Unknown [id number] 2.16.840.1.325806.3.579.2.1285 1992 Unknown [id number] 2.16.840.1.395834.3.579.2.1285 1992 Unknown [id number] 2.16840.1.906282.3.579.2.1285 1992 Unknown [id number] 2.16840.1.638910.3.579.2.1285 1992 Unknown [id number] 2.840.1.207479.3.579.2.1285 1992 Unknown [id number] 2.840.1.360994.3.579.2.1285 1992 Unknown [id number] 2.840.1.642794.3.579.2.1285 1992 Unknown [id number] 2.840.1.130793.3.579.2.1285 1992 Unknown [id number] 2.16840.1.957180.3.579.2.1285 1992 Unknown [id number] 2.16840.1.739496.3.579.2.1285 1992 Unknown [id number] 2.16840.1.082032.3.579.2.1258 1992 Unknown [id number] 2.16840.1.581340.3.579.2.1258 1992 Unknown [id number] 2.16840.1.688071.3.579.2.1258 1992 Unknown [id number] 2.16840.1.472524.3.579.2.1259 1992 Unknown [id number] 2.16.840.1.022396.3.579.2.9 1992 Unknown [id number] 2.16.840.1.462211.3.579.2.9 1992 Unknown [id number] 2.16.840.1.448712.3.579.2.9 1992 Unknown [id number] 2.16.840.1.983935.3.579.2.9 1992 Unknown [id number] 2.16.840.1.018214.3.579.2.1259 1957 Medicaid [id number] 1957 Unknown [id number] 1957 Unknown [id number] 1957 Unknown [id number] Social History Date Type Detail Facility Start: 01-23-2024 Tobacco smoking stat [facility] Ex-smoker [facility] History of tobacco use Current smoker [facility] History of tobacco use Cigarette Smoker [facility] Start: 01-23-2024 Tobacco use and exposure Smokeless tobacco non-user [facility] Start: 01-24-2024 Alcohol intake Ex-drinker (finding) [facility] Start: 01-23-2024 End: 01-24-2024 History of Social function [facility] Start: 01-23-2024 End: 01-24-2024 [facility] [employer] [facility] Has the [employer], or [employer] threatened to shut off services in your home in past 12Mo No [facility] How often to you hav e a drink containing alcohol? Never [facility] How many standard drinks containing alcohol do you have on a typical day? Patient does not drink [facility] Start: 1990 Sex Assigned At Not on file [facility] Medical Equipment Procedure Code Equipment Code Equipment Origin al Text Equipment Identifier Dates Stent Vsc 18mm X 100mm Venous Nitinol Slf Expanding Abre - [id number] Start: 01-24-2024 History of Present illness Narrative 02-10-2024 Jani Bridges MD - 02/10/2024 2:40 PM EDT Note Date & Type Note Facility 02-10-2024 History of Presen t illness Narrative Images from the original note were not included. [facility] [address] [facility] [id number] Subjective: Patient ID: Kimberly Silverman is a [...] Problem List Diagnosis DVT (deep venous thrombosis) (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 Compression of vein documented [...] Vas IVC/iliac duplex complete Jani Bridges MD [address], [address] [address] Referral ID Status Reason Start Date Expiration Date V isits Requested Visits Authorized [id number] Pending Review 02/11/2024 02/10/2025 1 1 Additional Source Comments INFORMATION SOURCE (unrecogn ized section and content) DATE CREATED AUTHOR 06/08/2020 [facility] DATE CREATED AUTHOR AUTHOR'S ORGANIZ ATION 04/23/2023 [facility] DATE CREATED AUTHOR AUTHOR'S ORGANIZ ATION 01/16/2024 [facility] DATE CREATED AUTHOR AUTHOR'S ORGANIZ ATION 01/27/2024 [facility] DATE CREATED AUTHOR AUTHOR'S ORGANIZ ATION 05/31/2024 [facility] DATE CREATED AUTHOR AUTHOR'S ORGANIZ ATION 07/19/2024 [facility] EPIC Reason for Visit (unrecogniz ed section and content) Reason Comments Follow-up Thrombectomy lle. DV T and iliac stenting. 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 [facility] [employer] [facility]. provides no warranty or guarantee of the accuracy or completeness of information in this document.
--- NOTE | 2024-07-21 07:25 | US_ITS ---
The [address] [address] Patient Name: KIMBERLY MCMAHON MRN: [id number] date: 1990 Sex: F Assigned Patient Location: US Current Patient Location: US Accession/Order Number: [id number] Exam Date: 07/21/2024 07:30 Report Date: 07/21/2024 11:21 At the request of: USMAN RODRIGEZ Procedure: US venous doppler LE LT EXAMINATION: US venous doppler LE LT HISTORY: Deep venous thrombosis I82.409 COMPARISON: Ultrasound venous Doppler lower extremity left 01/23/2024 FINDINGS: REGION: Left lower extremity THROMBI: None. COMPRESSIBILITY: Normal compressibility. FLOW: Normal waveform and antegrade flow between 5 and 20 cm/s. OTHER: None. US/US venous doppler LE LT IMPRESSION: 1. No deep vein thrombus within the left lower extremity. Electronically authenticated by: PONCHO FABIAN Date: 07/21/2024 11:21
--- NOTE | 2024-07-21 08:17 | XR_ITS ---
The [address] [address] Patient Name: KIMBERLY MCMAHON MRN: [id number] date: 1990 Sex: F Assigned Patient Location: US Current Patient Location: US Accession/Order Number: [id number] Exam Date: 07/21/2024 08:05 Report Date: 07/21/2024 10:43 At the request of: USMAN RODRIGEZ Procedure: XR lumbar spine min 4V EXAM: XR lumbar spine min 4V CLINICAL INDICATION: Back pain COMPARISON: None TECHNIQUE: 4 views of the lumbar spine obtained FINDINGS: There are 5 nonrib-bearing lumbar-type vertebra. Vertebral body heights and disc spaces are maintained without evidence for acute fracture. No subluxations. No significant degenerative changes of the lumbar spine. XR/XR lumbar spine min 4V IMPRESSION: Unremarkable exam. Electronically authenticated by: LANCE ARAIZA Date: 07/21/2024 10:43
--- NOTE | 2024-07-21 08:17 | XR_ITS ---
The [address] [address] Patient Name: KIMBERLY MCMAHON MRN: [id number] date: 1990 Sex: F Assigned Patient Location: US Current Patient Location: US Accession/Order Number: [id number] Exam Date: 07/21/2024 08:05 Report Date: 07/22/2024 07:35 At the request of: USMAN RODRIGEZ Procedure: XR hip LT 2V w/ pelvis PROCEDURE: XR hip LT 2V w/ pelvis HISTORY: Hip pain , low back pain COMPARISON: None. FINDINGS: BONES:No fracture, acute abnormality, or significant arthropathy. SOFT TISSUES:No visible soft tissue swelling. EFFUSION:None visible. OTHER: Endovascular stent within left common iliac vein versus artery. XR/XR hip LT 2V w/ pelvis IMPRESSION: 1. No acute bone abnormality or appreciable degenerative changes of the left hip. Electronically authenticated by: PONCHO FABIAN Date: 07/22/2024 07:35
== END 2024-07-21 07:22 | disposition home or self-care (01) ==
LOC: US 07:21
PROVIDERS: PCP Family Medicine; Visit Provider Family Medicine
DX: M25.552 Pain in left hip (principal); I82.409 Acute embolism and thrombosis of unspecified deep veins of unspecified lower extremity; M54.50 Low back pain, unspecified
CPT/HCPCS: 72110; 73502; 93925; 93971

== ENCOUNTER 2024-07-26 16:11 | Outpatient (OUT) | payer BC, SELFPAY ==
[2024-07-26 16:42] LABS: Basophils Percent Auto 0.3 % (0.2-2.0); Eosinophils Absolute Auto 0.1 10^3/uL (0.0-0.7); Eosinophils Percent Auto 1.4 % (0.9-7.0); Hematocrit 41.4 % (36.0-48.0); Hemoglobin 14.2 g/dL (12.0-16.0); Immature Granulocytes Abs Auto 0.02 10^3/uL (0.00-0.03); Immature Granulocytes Pct Auto 0.3 % (0.0-0.5); Lymphocytes Absolute Auto 2.4 10^3/uL (1.2-3.8); Lymphocytes Percent Auto 33.5 % (20.5-60.0); Mean Corpuscular HGB Conc 34.3 g/dL (29.9-35.2); Mean Corpuscular Volume 93.2 fL (81.0-99.0); Mean Platelet Volume 10.2 fL (9.5-13.5); Monocytes Absolute Auto 0.4 10^3/uL (0.3-0.8); Monocytes Percent Auto 5.4 % (1.7-12.0); Neutrophils Absolute Auto 4.2 10^3/uL (1.4-6.5); Neutrophils Percent Auto 59.1 % (43.0-75.0); Platelet Count 207 10^3/uL (150-450); Red Blood Count 4.44 10^6/uL (4.20-5.40); Red Cell Distribution Width 11.2 % (11.0-15.0); White Blood Count 7.2 10^3/uL (4.0-11.0)
[2024-07-26 16:57] LABS: Erythrocyte Sedimentation Rate 6 mm/hr (<=20)
[2024-07-26 17:33] LABS: C Reactive Protein <0.50 mg/dL (<=0.50); Uric Acid 3.4 mg/dL (2.6-6.0)
[2024-07-28 12:10] LABS: Antistreptolysin O Ab 437.1 IU/mL (0.0-200.0); Rheumatoid Factor (RF) <10.0 IU/mL (<14.0)
== END 2024-07-26 16:12 | disposition home or self-care (01) ==
LOC: LAB 16:13
PROVIDERS: PCP Family Medicine; Visit Provider Family Medicine
DX: M25.50 Pain in unspecified joint (principal)
CPT/HCPCS: 36415; 84550; 85025; 85652; 86038; 86060; 86140; 86431

== ENCOUNTER 2024-07-31 21:03 | Outpatient (REF) | payer OTHER, SELFPAY ==
--- OUTSIDE RECORDS SUMMARY | 2024-07-31 21:06 | XMS_ITS | CCD ---
Author Organization [facility] Care Team Providers Care Attending Ambulatory Care Name Role Phone RAIN ., DR MARY [...] Unavailable Usman Alvarez MD Primary Care Provider [phone] SUYAPA BRIDGESAMED F Attending Unavailable RAIN USMAN [...] in the morning. 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, other extremity] Onset: 04-27-2024 [...] Anion gap [Moles/Vol] 7 mmol/L Normal 5-15 [facility] Comment on above: Performed By: #### C BCA, PINR, 52208-9, BMP #### [facility] ([id number]) [address], [address] [place] [address] Calcium [Mass/Vol] 8.7 mg/dL Normal 8.5-10.5 [facility] Comment on above: Performed By: #### C BCA, PINR, 75585-9, BMP #### [facility] ([id number]) [address], [address] [place] [address] Chloride [Moles/Vol] 106 mmol/L Normal 98-109 [facility] Comment on above: Performed By: #### C BCA, PINR, 60770-7, BMP #### [facility] ([id number]) [address], [address] [place] [address] CO2 [Moles/Vol] 23 mmol/L Normal 22-32 [facility] Comment on above: Performed By: #### C BCA, PINR, 91315-0, BMP #### [facility] ([id number]) [address], [address] [place] [address] Creatinine [Mass/Vol] 0.57 mg/dL Normal 0.40-1.00 [facility] Comment on above: Result Comment: METH OD TRACEABLE TO IDMS STANDARD Performed By: #### C BRENNON PINR, 50632-3, BMP #### [facility] ([id number]) [address], [address] [place] [address] eGFR (CKD-EPI) NON-RACE DEPENDENT >90 Normal >59 [facility] Comment on above: Result Comment: Reported eGFR is based on the CKD-EPI 2020 equation that does not use a race coefficient. Performed By: #### C BRENNON, PINR, 71795-1, BMP #### [facility] ([id number]) [address], [address] [place] [address] Glucose [Mass/Vol] 139 mg/dL High 65-99 [facility] Comment on above: Performed By: #### C BCA, PINR, 04165-7, BMP #### [facility] ([id number]) [address], [address] [place] [address] Potassium [Moles/Vol] 4.3 mmol/L Normal 3.5-5.0 [facility] Comment on above: Performed By: #### C BCA, PINR, 23509-7, BMP #### [facility] ([id number]) [address], [address] [place] [address] Sodium [Moles/Vol] 136 mmol/L Normal 134-146 [facility] Comment on above: Performed By: #### C BCA, PINR, 42891-7, BMP #### [facility] ([id number]) [address], [address] [place] [address] Urea nitrogen [Mass/Vol] 6 mg/dL Normal 5-23 [facility] Comment on above: Performed By: #### C BCA, PINR, 49147-0, BMP #### [facility] ([id number]) [address], [address] [place] [address] CBC AND AUTO DIFFon 01-25-20 24 ABSOLUTE BASOPHIL 0.0 X10E9/L Normal 0.0-0.2 [facility] Comment on above: Performed By: #### C BRENNON PINR, 18963-1, BMP #### [facility] ([id number]) [address] [place] [address] ABSOLUTE NEUTROPHIL 2.9 X10E9/L Normal 1.5-6.6 [facility] Comment on above: Performed By: #### Anastasiya WILLETT PINSlim, 56590-8, BMP #### [facility] ([id number]) [address] [place] [address] Basophils/100 WBC (Bld) 0.1 % Normal [facility] Comment on above: Performed By: #### Anastasiya WILLETT PINR, 86753-2, BMP #### [facility] ([id number]) [address] [place] [address] Eosinophils (Bld) [#/Vol] 0.0 10*3/uL Normal 0.0-0.4 [facility] Comment on above: Performed By: #### Anastasiya WILLETT PINR, 26220-8, BMP #### [facility] ([id number]) [address], [address] [place] [address] Eosinophils/100 WBC (Bld) 0.0 % Normal [facility] Comment on above: Performed By: #### Anastasiya WILLETT PINR, 35631-5, BMP #### [facility] ([id number]) [address] [place] [address] Erythrocyte distribution width (RBC) [Ratio] 11.8 % Normal 11.5-15.0 [facility] Comment on above: Performed By: #### C BRENNON PINR, 35771-7, BMP #### [facility] ([id number]) [address], [address] [place] [address] Hematocrit (Bld) [Volume fraction] 35.5 % Normal 35-47 [facility] Comment on above: Performed By: #### C BRENNON PINR, 31610-6, BMP #### [facility] ([id number]) [address] [place] [address] Hemoglobin (Bld) [Mass/Vol] 12.3 g/dL Normal 11.7-15.5 [facility] Comment on above: Performed By: #### Anastasiya WILLETT PINR, 37598-7, BMP #### [facility] ([id number]) [address], [facility] [address] [place] [address] Lymphocytes (Bld) [#/Vol] 0.4 10*3/uL Low 1.0-3.5 [facility] Comment on above: Performed By: #### Anastasiya WILLETT PINR, 20361-5, BMP #### [facility] ([id number]) [address], [address] [address] Lymphocytes/100 WBC (Bld) 13.1 % Normal [facility] Comment on above: Performed By: #### Anastasiya WILLETT PINR, 11680-4, BMP #### [facility] ([id number]) [address], [address] [place] [address] MCH (RBC) [Entitic mass] 32.3 pg Normal 27-34 [facility] Comment on above: Performed By: #### Anastasiya WILLETT PINR, 99807-8, BMP #### [facility] ([id number]) [address], [address] [place] [address] MCHC (RBC) [Mass/Vol] 34.6 g/dL Normal 32-36 [facility] Comment on above: Performed By: #### C BCA, PINR, 66208-9, BMP #### [facility] ([id number]) [address], [address] [place] [address] MCV (RBC) [Entitic vol] 94 fL Normal 80-100 [facility] Comment on above: Performed By: #### C BCA, PINR, 41145-2, BMP #### [facility] ([id number]) [address], [address] [place] [address] Monocytes (Bld) [#/Vol] 0.1 10*3/uL Normal 0-0.9 [facility] Comment on above: Performed By: #### C BRENNON, PINR, 46259-2, BMP #### [facility] ([id number]) [address], [address] [place] [address] Monocytes/100 WBC (Bld) 2.4 % Normal [facility] Comment on above: Performed By: #### Anastasiya BCA, PINR, 40537-2, BMP #### [facility] ([id number]) [address], [address] [place] [address] Neutrophils/100 WBC (Bld) 84.4 % Normal [facility] Comment on above: Performed By: #### Anastasiya BCA, PINR, 45332-0, BMP #### [facility] ([id number]) [address], [address] [place] [address] Platelet mean volume (Bld) [Entitic vol] 9.1 fL Normal 7-12 [facility] Comment on above: Performed By: #### C BCA, PINR, 22297-5, BMP #### [facility] ([id number]) [address], [address] [place] [address] Platelets (Bld) [#/Vol] 142 10*3/uL Low 150-450 [facility] Comment on above: Performed By: #### Anastasiya BCA, PINR, 23924-5, BMP #### [facility] ([id number]) [address], [address] [place] [address] RBC COUNT 3.79 X10E12/L Low 3.80-5.20 [facility] Comment on above: Performed By: #### C SADAF WILLETT, 39498-9, BMP #### [facility] ([id number]) [address], [address] [place] [address] WBC (Bld) [#/Vol] 3.4 10*3/uL Low 4.0-11.0 [facility] Comment on above: Performed By: #### C SADAF WILLETT, 85773-8, BMP #### [facility] ([id number]) [address], [address] [place] [address] Heparin unfractionated Chrom ogenic method Qn (PPP)on 01-25-2024 ANTI XA UFH 0.68 IU/mL Normal 0.30-0.70 [facility] Comment on above: Result Comment: Opti mal time for testing is 6 hrs post dosage This test is specific for monitoring patients on UFH, and is not recommended for use with other Anti-Xa medications. Performed By: #### C SADAF WILLETT, 28695-0, BMP #### [facility] ([id number]) [address], [address] [place] [address] ANTI CARDIOLIPIN AB IGG IGA IGMon 01-24-2024 MELBA IgA <2.0 Normal 0-19.9 [facility] Comment on above: Performed By: #### A Doreen HEATON #### [facility] ([id number]) [address], [address] [place] [address] MELBA IgG <1.6 Normal 0-19.9 [facility] Comment on above: Performed By: #### A CAChuckyG #### [facility] ([id number]) [address], [address] [place] [address] MELBA IgM <1.5 Normal 0-19.9 [facility] Comment on above: Performed By: #### A CA, B2G #### [facility] ([id number]) [address] [place] [address] BASIC METABOLIC PANLon 01-23 Anion gap [Moles/Vol] 8 mmol/L Normal 5-15 [facility] Comment on above: Performed By: #### 3 274-8, CBCA, BMP #### [facility] ([id number]) [address], [address] [place] [address] Calcium [Mass/Vol] 8.0 mg/dL Low 8.5-10.5 [facility] Comment on above: Performed By: #### 3 274-8, CBCA, BMP #### [facility] ([id number]) [address], [address] [place] [address] Chloride [Moles/Vol] 106 mmol/L Normal 98-109 [facility] Comment on above: Performed By: #### 3 274-8, CBCA, BMP #### [facility] ([id number]) [address] [place] [address] CO2 [Moles/Vol] 22 mmol/L Normal 22-32 [facility] Comment on above: Performed By: #### 3 274-8, CBCA, BMP #### [facility] ([id number]) [address], [address] [place] [address] Creatinine [Mass/Vol] 0.53 mg/dL Normal 0.40-1.00 [facility] Comment on above: Result Comment: METH OD TRACEABLE TO IDMS STANDARD Performed By: #### 3 274-8, CBCA, BMP #### [facility] ([id number]) [address], [address] [place] [address] eGFR (CKD-EPI) NON-RACE DEPENDENT >90 Normal >59 [facility] Comment on above: Result Comment: Reported eGFR is based on the CKD-EPI 2020 equation that does not use a race coefficient. Performed By: #### 3 274-8, CBCA, BMP #### [facility] ([id number]) [address] [place] [address] Glucose [Mass/Vol] 76 mg/dL Normal 65-99 [facility] Comment on above: Performed By: #### 3 274-8, CBCA, BMP #### [facility] ([id number]) [address] [address] [place] [address] Potassium [Moles/Vol] 3.8 mmol/L Normal 3.5-5.0 [facility] Comment on above: Performed By: #### 3 274-8, CBCA, BMP #### [facility] ([id number]) [address], [facility] [address] [place] [address] Sodium [Moles/Vol] 136 mmol/L Normal 134-146 [facility] Comment on above: Performed By: #### 3 274-8, CBCA, BMP #### [facility] ([id number]) [address], [facility] [address] [place] [address] Urea nitrogen [Mass/Vol] 10 mg/dL Normal 5-23 [facility] Comment on above: Performed By: #### 3 274-8, CBCA, BMP #### [facility] ([id number]) [address], [facility] [address] [place] [address] BETA-2 GP1 AB PANELon 2023 BETA-2 GP1 IgA <2.0 Normal 0.0-19.9 [facility] Comment on above: Performed By: #### C BCA, PINR, 90510-7, BMP #### [facility] ([id number]) [address] [address] [place] [address] BETA-2 GP1 IgG <1.4 Normal 0.0-19.9 [facility] Comment on above: Performed By: #### C BCA, PINR, 52591-4, BMP #### [facility] ([id number]) [address], [address] [place] [address] BETA-2 GP1 IgM <1.5 Normal 0.0-19.9 [facility] Comment on above: Performed By: #### C BCA, PINR, 59121-2, BMP #### [facility] ([id number]) [address] [place] [address] CBC AND AUTO DIFFon 01-24-20 24 ABSOLUTE BASOPHIL 0.0 X10E9/L Normal 0.0-0.2 [facility] Comment on above: Performed By: #### 3 274-8, CBCA, BMP #### [facility] ([id number]) [address] [place] [address] ABSOLUTE NEUTROPHIL 3.7 X10E9/L Normal 1.5-6.6 [facility] Comment on above: Performed By: #### 3 274-8, CBCA, BMP #### [facility] ([id number]) [address], [address] [place] [address] Basophils/100 WBC (Bld) 0.4 % Normal [facility] Comment on above: Performed By: #### 3 274-8, CBCA, BMP #### [facility] ([id number]) [address] [place] [address] Eosinophils (Bld) [#/Vol] 0.2 10*3/uL Normal 0.0-0.4 [facility] Comment on above: Performed By: #### 3 274-8, CBCA, BMP #### [facility] ([id number]) [address], [address] [place] [address] Eosinophils/100 WBC (Bld) 2.9 % Normal [facility] Comment on above: Performed By: #### 3 274-8, CBCA, BMP #### [facility] ([id number]) [address] [address] [place] [address] Erythrocyte distribution width (RBC) [Ratio] 12.3 % Normal 11.5-15.0 [facility] Comment on above: Performed By: #### 3 274-8, CBCA, BMP #### [facility] ([id number]) [address] [address] Hematocrit (Bld) [Volume fraction] 36.4 % Normal 35-47 [facility] Comment on above: Performed By: #### 3 274-8, CBCA, BMP #### [facility] ([id number]) [address] [address] Hemoglobin (Bld) [Mass/Vol] 12.4 g/dL Normal 11.7-15.5 [facility] Comment on above: Performed By: #### 3 274-8, CBCA, BMP #### [facility] ([id number]) [address] [address] Lymphocytes (Bld) [#/Vol] 1.9 10*3/uL Normal 1.0-3.5 [facility] Comment on above: Performed By: #### 3 274-8, CBCA, BMP #### [facility] ([id number]) [address] [address] Lymphocytes/100 WBC (Bld) 29.7 % Normal [facility] Comment on above: Performed By: #### 3 274-8, CBCA, BMP #### [facility] ([id number]) [address] [address] MCH (RBC) [Entitic mass] 32.5 pg Normal 27-34 [facility] Comment on above: Performed By: #### 3 274-8, CBCA, BMP #### [facility] ([id number]) [address] [place] [address] MCHC (RBC) [Mass/Vol] 34.2 g/dL Normal 32-36 [facility] Comment on above: Performed By: #### 3 274-8, CBCA, BMP #### [facility] ([id number]) [address], [facility] [address] [place] [address] MCV (RBC) [Entitic vol] 95 fL Normal 80-100 [facility] Comment on above: Performed By: #### 3 274-8, CBCA, BMP #### [facility] ([id number]) [address], [address] [address] Monocytes (Bld) [#/Vol] 0.5 10*3/uL Normal 0-0.9 [facility] Comment on above: Performed By: #### 3 274-8, CBCA, BMP #### [facility] ([id number]) [address], [address] [address] Monocytes/100 WBC (Bld) 8.2 % Normal [facility] Comment on above: Performed By: #### 3 274-8, CBCA, BMP #### [facility] ([id number]) [address] [place] [address] Neutrophils/100 WBC (Bld) 58.8 % Normal [facility] Comment on above: Performed By: #### 3 274-8, CBCA, BMP #### [facility] ([id number]) [address], [facility] [address] [place] [address] Platelet mean volume (Bld) [Entitic vol] 8.7 fL Normal 7-12 [facility] Comment on above: Performed By: #### 3 274-8, CBCA, BMP #### [facility] ([id number]) [address], [address] [place] [address] Platelets (Bld) [#/Vol] 128 10*3/uL Low 150-450 [facility] Comment on above: Performed By: #### 3 274-8, CBCA, BMP #### [facility] ([id number]) [address], [address] [address] RBC COUNT 3.83 X10E12/L Normal 3.80-5.20 [facility] Comment on above: Performed By: #### 3 274-8, CBCA, BMP #### [facility] ([id number]) [address] [address] WBC (Bld) [#/Vol] 6.4 10*3/uL Normal 4.0-11.0 [facility] Comment on above: Performed By: #### 3 274-8, CBCA, BMP #### [facility] ([id number]) [address] [address] Heparin unfractionated Chrom ogenic method Qn (PPP)on 01-24-2024 ANTI XA UFH 0.47 IU/mL Normal 0.30-0.70 [facility] Comment on above: Result Comment: Opti mal time for testing is 6 hrs post dosage This test is specific for monitoring patients on UFH, and is not recommended for use with other Anti-Xa medications. Performed By: #### 3 274-8, CBCA, BMP #### [facility] ([id number]) [address] [address] dRVVT/dRVVT.excess phospholi pid Coag (PPP) [Ratio]on 01-24-2024 DILUTE VERONIKA'S VIPER VENOM Negative Normal [facility] Comment on above: Performed By: #### C BCA, PINR, 56945-0, BMP #### [facility] ([id number]) [address] [address] BASIC METABOLIC PANLon 01-22 Anion gap [Moles/Vol] 11 mmol/L Normal 5-15 [facility] Comment on above: Performed By: #### C BCA, PINR, 65387-5, BMP #### [facility] ([id number]) [address] [place] [address] Calcium [Mass/Vol] 8.3 mg/dL Low 8.5-10.5 [facility] Comment on above: Performed By: #### C BCA, PINR, 81185-7, BMP #### [facility] ([id number]) [address] [place] [address] Chloride [Moles/Vol] 106 mmol/L Normal 98-109 [facility] Comment on above: Performed By: #### C BCA, PINR, 49212-9, BMP #### [facility] ([id number]) [address] [place] [address] CO2 [Moles/Vol] 21 mmol/L Low 22-32 [facility] Comment on above: Performed By: #### C BCA, PINR, 88857-9, BMP #### [facility] ([id number]) [address] [place] [address] Creatinine [Mass/Vol] 0.65 mg/dL Normal 0.40-1.00 [facility] Comment on above: Result Comment: METH OD TRACEABLE TO IDMS STANDARD Performed By: #### C BCA, PINR, 32169-0, BMP #### [facility] ([id number]) [address] [place] [address] eGFR (CKD-EPI) NON-RACE DEPENDENT >90 Normal >59 [facility] Comment on above: Result Comment: Reported eGFR is based on the CKD-EPI 2020 equation that does not use a race coefficient. Performed By: #### C BCA, PINR, 42835-8, BMP #### [facility] ([id number]) [address] [place] [address] Glucose [Mass/Vol] 78 mg/dL Normal 65-99 [facility] Comment on above: Performed By: #### C BCA, PINR, 19214-3, BMP #### [facility] ([id number]) [address] [place] [address] Potassium [Moles/Vol] 3.9 mmol/L Normal 3.5-5.0 [facility] Comment on above: Performed By: #### C BCA, PINR, 10790-5, BMP #### [facility] ([id number]) [address] [place] [address] Sodium [Moles/Vol] 138 mmol/L Normal 134-146 [facility] Comment on above: Performed By: #### C BCA, PINR, 99123-8, BMP #### [facility] ([id number]) [address] [place] [address] Urea nitrogen [Mass/Vol] 11 mg/dL Normal 5-23 [facility] Comment on above: Performed By: #### C BCA, PINR, 33885-3, BMP #### [facility] ([id number]) [address] [place] [address] CBC AND AUTO DIFFon 01-23-20 24 ABSOLUTE BASOPHIL 0.0 X10E9/L Normal 0.0-0.2 [facility] Comment on above: Performed By: #### C BCA, PINR, 89529-4, BMP #### [facility] ([id number]) [address] [place] [address] ABSOLUTE NEUTROPHIL 6.6 X10E9/L Normal 1.5-6.6 [facility] Comment on above: Performed By: #### C BCA, PINR, 21400-5, BMP #### [facility] ([id number]) [address] [place] [address] Basophils/100 WBC (Bld) 0.3 % Normal [facility] Comment on above: Performed By: #### C BRENNON PINR, 35088-7, BMP #### [facility] ([id number]) [address] [place] [address] Eosinophils (Bld) [#/Vol] 0.1 10*3/uL Normal 0.0-0.4 [facility] Comment on above: Performed By: #### C BRENNON PINR, 82354-7, BMP #### [facility] ([id number]) [address] [place] [address] Eosinophils/100 WBC (Bld) 0.8 % Normal [facility] Comment on above: Performed By: #### Anastasiya WILLETT, PINR, 91197-1, BMP #### [facility] ([id number]) [address] [place] [address] Erythrocyte distribution width (RBC) [Ratio] 12.4 % Normal 11.5-15.0 [facility] Comment on above: Performed By: #### Anastasiya WILLETT, PINR, 74901-0, BMP #### [facility] ([id number]) [address] [place] [address] Hematocrit (Bld) [Volume fraction] 39.4 % Normal 35-47 [facility] Comment on above: Performed By: #### C BRENNON, PINR, 16931-3, BMP #### [facility] ([id number]) [address] [place] [address] Hemoglobin (Bld) [Mass/Vol] 13.8 g/dL Normal 11.7-15.5 [facility] Comment on above: Performed By: #### C BRENNON, PINR, 90139-6, BMP #### [facility] ([id number]) [address] [place] [address] Lymphocytes (Bld) [#/Vol] 1.9 10*3/uL Normal 1.0-3.5 [facility] Comment on above: Performed By: #### C BRENNON, PINR, 04110-7, BMP #### [facility] ([id number]) [address], [facility] [address] [place] [address] Lymphocytes/100 WBC (Bld) 20.6 % Normal [facility] Comment on above: Performed By: #### C BRENNON, PINR, 21344-2, BMP #### [facility] ([id number]) [address], [facility] [address] [place] [address] MCH (RBC) [Entitic mass] 32.7 pg Normal 27-34 [facility] Comment on above: Performed By: #### Anastasiya WILLETT, PINR, 92440-4, BMP #### [facility] ([id number]) [address], [facility] [address] [place] [address] MCHC (RBC) [Mass/Vol] 34.9 g/dL Normal 32-36 [facility] Comment on above: Performed By: #### C BRENNON, PINR, 73181-6, BMP #### [facility] ([id number]) [address], [address] [address] MCV (RBC) [Entitic vol] 94 fL Normal 80-100 [facility] Comment on above: Performed By: #### C BRENNON, PINR, 46908-5, BMP #### [facility] ([id number]) [address], [facility] [address] [place] [address] Monocytes (Bld) [#/Vol] 0.6 10*3/uL Normal 0-0.9 [facility] Comment on above: Performed By: #### Anastasiya WILLETT, PINR, 56401-7, BMP #### [facility] ([id number]) [address], [address] [place] [address] Monocytes/100 WBC (Bld) 6.0 % Normal [facility] Comment on above: Performed By: #### Anastasiya WILLETT, PINR, 32589-3, BMP #### [facility] ([id number]) [address], [facility] [address] [place] [address] Neutrophils/100 WBC (Bld) 72.3 % Normal [facility] Comment on above: Performed By: #### C BRENNON, PINR, 92022-2, BMP #### [facility] ([id number]) [address] [facility] [address] [place] [address] Platelet mean volume (Bld) [Entitic vol] 8.4 fL Normal 7-12 [facility] Comment on above: Performed By: #### Anastasiya WILLETT, PINR, 66699-9, BMP #### [facility] ([id number]) [address] [place] [address] Platelets (Bld) [#/Vol] 156 10*3/uL Normal 150-450 [facility] Comment on above: Performed By: #### Anastasiya WILLETT, PINR, 37097-1, BMP #### [facility] ([id number]) [address] [facility] [address] [place] [address] RBC COUNT 4.21 X10E12/L Normal 3.80-5.20 [facility] Comment on above: Performed By: #### Anastasiya BCA, PINR, 55727-1, BMP #### [facility] ([id number]) [address] [place] [address] WBC (Bld) [#/Vol] 9.1 10*3/uL Normal 4.0-11.0 [facility] Comment on above: Performed By: #### Anastasiya WILLETT, PINR, 36593-1, BMP #### [facility] ([id number]) [address] [place] [address] CT CTV ABD AND PELVISon 01-13 CT [...] Hill MD on 01/23/2024 4:56 PM Normal [facility] Heparin unfractionated Chrom ogenic method Qn (PPP)on 01-23-2024 ANTI XA UFH 0.44 IU/mL Normal 0.30-0.70 [facility] Comment on above: Result Comment: Opti mal time for testing is 6 hrs post dosage This test is specific for monitoring patients on UFH, and is not recommended for use with other Anti-Xa medications. Performed By: #### 3 [id number] #### [facility] ([id number]) [address] [place] [address] PROTIME AND INRon 01-23-2024 INR Coag (PPP) [Relative time] 1.1 {INR} Normal 0.8-1.1 [facility] Comment on above: Performed By: #### C BCA, PINR, 02539-5, BMP #### [facility] ([id number]) [address] [place] [address] PT Coag (PPP) [Time] 12.3 s Normal 9.8-13.2 [facility] Comment on above: Performed By: #### C BCA, PINR, 98136-0, BMP #### [facility] ([id number]) [address] [place] [address] aPTT Coag (PPP) [Time]on aPTT Coag (Bld) [Time] 51 s High 26-37 [facility] Comment on above: Performed By: #### C BCA, PINR, 55303-5, BMP #### [facility] ([id number]) [address] [place] [address] Angelito 01-07-2024 L Specimen: [id number] Received: 01/10/24 Status: MICHAEL Waldron Num: [id number] Spec Type: Surgical Subm Dr: Angelia Treviño Tissues: A Fallopian Tube - Sterilization (BILATERAL) Procedures: HE/3, Gross/Micro L2 Age/ Patient Sex Location Account Attending Physician Kimberly Silverman 33/F LABELL [id number] Angelia Treviño SPEC NUM: [id number] RECD: 01/10/24 STATUS: MICHAEL WALDRON NUM: [id number] ANICETO: 01/07/[address]: Angelia Treviño ENTERED: 01/10/[address] [facility] [address]: Lopez,Lab SPEC TYPE: Surgical DEPT: [...] markedly dilated lumens throughout all 3 segments. Picc Nurse sections are submitted in 3 cassettes as follows: A1 - Cross-sections of shortest segment A2 - Cross-sections intermediate length segment A3 - Cross-sections longest segment CPT Codes 52797 -------- -------- Specimen: [id number] Received: 01/10/24 Status: MICHAEL Waldron Num: [id number] Spec Type: Surgical Subm Dr: Angelia Treviño Tissues: A Fallopian Tube - Sterilization (BILATERAL) Procedures: HE/3, Gross/Micro L2 -------- Patient: Kimberly Silverman [id number] (Continued) -------- Signed (signature on file) Jani Garcia MD 01/15/24 0853 [facility] AMYLASEon 04-03-2023 Amylase [Catalytic activity/Vol] 62 U/L Normal 25-115 [facility] Comment on above: Performed By: #### L ANDERSON OVALLES ####[facility] [id number] [place] [address]Dr. Reece Garg CBC AUTO DIFFon 04-03-2023 BASO # 0.0 103/ul Normal 0.0-0.1 [facility] Comment on above: Performed By: #### C BC #### [facility] [address] [address] [address] Reece Garg Basophils/100 WBC (Bld) 0.3 % Normal 0.2-2.0 [facility] Comment on above: Performed By: #### C BC #### [facility] [address] [address] [address] Reece Garg EO # 0.1 103/ul Normal 0.0-0.7 [facility] Comment on above: Performed By: #### C BC #### [facility] [address] [address] [address] Reece Garg Eosinophils/100 WBC (Bld) 0.6 % Critically low 0.9-7.0 [facility] Comment on above: Performed By: #### C BC #### [facility] [address] [address] [address] Reece Garg Erythrocyte distribution width (RBC) [Ratio] 11.9 % Normal 11.0-15.0 [facility] Comment on above: Performed By: #### C BC #### [facility] [address] [place] [address] Dr. Reece Garg Hematocrit (Bld) [Volume fraction] 37.7 % Normal 36.0-48.0 [facility] Comment on above: Performed By: #### C BC #### [facility] [address] [place] [address] Dr. Reece Garg Hemoglobin (Bld) [Mass/Vol] 12.9 g/dL Normal 12.0-16.0 [facility] Comment on above: Performed By: #### C BC #### [facility] [address] [place] [address] Dr. Reece Garg IG # 0.05 10e3/ul Critically high 0.00-0.03 [facility] Comment on above: Performed By: #### C BC #### [facility] [address] [place] [address] Dr. Reece Garg IG % 0.4 % Normal 0.0-0.5 [facility] Comment on above: Performed By: #### C BC #### [facility] [address] [place] [address] Dr. Reece Garg LYMPH # 2.3 103/ul Normal 1.2-3.8 [facility] Comment on above: Performed By: #### C BC #### [facility] [address] [place] [address] Dr. Reece Garg Lymphocytes/100 WBC (Bld) 20.8 % Normal 20.5-60.0 [facility] Comment on above: Performed By: #### C BC #### [facility] [address] [place] [address] Dr. Reece Garg MANUAL DIFF REQ NO Normal [facility] Comment on above: Performed By: #### C BC #### [facility] [address] [place] [address] Dr. Reece Garg MCH (RBC) [Entitic mass] 32.3 pg Normal 26.7-34.0 [facility] Comment on above: Performed By: #### C BC #### [facility] [address] [place] [address] Dr. Reece Garg MCHC (RBC) [Mass/Vol] 34.2 g/dL Normal 29.9-35.2 [facility] Comment on above: Performed By: #### C BC #### [facility] [address] [address] [address] Reece Garg MCV (RBC) [Entitic vol] 94.3 fL Normal 81.0-99.0 [facility] Comment on above: Performed By: #### C BC #### [facility] [address] [address] [address] Reece Garg MONO # 0.6 103/ul Normal 0.3-0.8 [facility] Comment on above: Performed By: #### C BC #### [facility] [address] [place] [address] Dr. Reece Garg Monocytes/100 WBC (Bld) 5.3 % Normal 1.7-12.0 [facility] Comment on above: Performed By: #### C BC #### [facility] [address] [place] [address] Dr. Reece Garg NEUT # 8.1 103/ul Critically high 1.4-6.5 [facility] Comment on above: Performed By: #### C BC #### [facility] [address] [place] [address] Dr. Reece Garg Neutrophils/100 WBC (Bld) 72.6 % Normal 43.0-75.0 [facility] Comment on above: Performed By: #### C BC #### [facility] [address] [place] [address] Dr. Reece Garg Platelet mean volume (Bld) [Entitic vol] 10.2 fL Normal 9.5-13.5 [facility] Comment on above: Performed By: #### C BC #### [facility] [address] [place] [address] Dr. Reece Garg PLT 163 103/ul Normal 150-450 [facility] Comment on above: Performed By: #### C BC #### [facility] [address] [place] [address] Dr. Reece Garg RBC 4.00 106/ul Critically low 4.20-5.40 [facility] Comment on above: Performed By: #### C BC #### [facility] [address] [place] [address] Dr. Reece Garg WBC 11.1 103/ul Critically high 4.0-11.0 [facility] Comment on above: Performed By: #### C BC #### [facility] [address] [place] [address] Dr. Reece Garg BASO # 0.0 103/ul Normal 0.0-0.1 [facility] Comment on above: Performed By: #### C BC #### [facility] [address] [place] [address] Dr. Reece Garg Basophils/100 WBC (Bld) 0.3 % Normal 0.2-2.0 [facility] Comment on above: Performed By: #### C BC #### [facility] [address] [place] [address] Dr. Reece Garg EO # 0.1 103/ul Normal 0.0-0.7 [facility] Comment on above: Performed By: #### C BC #### [facility] [address] [place] [address] Dr. Reece Garg Eosinophils/100 WBC (Bld) 0.7 % Critically low 0.9-7.0 [facility] Comment on above: Performed By: #### C BC #### [facility] [address] [place] [address] Dr. Reece Garg Erythrocyte distribution width (RBC) [Ratio] 12.0 % Normal 11.0-15.0 [facility] Comment on above: Performed By: #### C BC #### [facility] [address] [place] [address] Dr. Reece Garg Hematocrit (Bld) [Volume fraction] 41.4 % Normal 36.0-48.0 [facility] Comment on above: Performed By: #### C BC #### [facility] [address] [place] [address] Dr. Reece Garg Hemoglobin (Bld) [Mass/Vol] 14.3 g/dL Normal 12.0-16.0 [facility] Comment on above: Performed By: #### C BC #### [facility] [address] [place] [address] Dr. Reece Garg IG # 0.05 10e3/ul Critically high 0.00-0.03 [facility] Comment on above: Performed By: #### C BC #### [facility] [address] [place] [address] Dr. Reece Garg IG % 0.3 % Normal 0.0-0.5 [facility] Comment on above: Performed By: #### C BC #### [facility] [address] [place] [address] Dr. Reece Garg LYMPH # 1.6 103/ul Normal 1.2-3.8 [facility] Comment on above: Performed By: #### C BC #### [facility] [address] [place] [address] Dr. Reece Garg Lymphocytes/100 WBC (Bld) 10.6 % Critically low 20.5-60.0 [facility] Comment on above: Performed By: #### C BC #### [facility] [address] [place] [address] Dr. Reece Garg MANUAL DIFF REQ NO Normal [facility] Comment on above: Performed By: #### C BC #### [facility] [address] [place] [address] Dr. Reece Garg MCH (RBC) [Entitic mass] 32.1 pg Normal 26.7-34.0 [facility] Comment on above: Performed By: #### C BC #### [facility] [address] [place] [address] Dr. Reece Garg MCHC (RBC) [Mass/Vol] 34.5 g/dL Normal 29.9-35.2 [facility] Comment on above: Performed By: #### C BC #### [facility] [address] [place] [address] Dr. Reece Garg MCV (RBC) [Entitic vol] 93.0 fL Normal 81.0-99.0 [facility] Comment on above: Performed By: #### C BC #### [facility] [address] [address] [address] Reece Garg MONO # 0.7 103/ul Normal 0.3-0.8 [facility] Comment on above: Performed By: #### C BC #### [facility] [address] [place] [address] Dr. Reece Garg Monocytes/100 WBC (Bld) 4.7 % Normal 1.7-12.0 [facility] Comment on above: Performed By: #### C BC #### [facility] [address] [place] [address] Dr. Reece Garg NEUT # 12.9 103/ul Critically high 1.4-6.5 [facility] Comment on above: Performed By: #### C BC #### [facility] [address] [place] [address] Dr. Reece Garg Neutrophils/100 WBC (Bld) 83.4 % Critically high 43.0-75.0 [facility] Comment on above: Performed By: #### C BC #### [facility] [address] [place] [address] Dr. Reece Garg Platelet mean volume (Bld) [Entitic vol] 10.4 fL Normal 9.5-13.5 [facility] Comment on above: Performed By: #### C BC #### [facility] [address] [place] [address] Dr. Reece Garg PLT 194 103/ul Normal 150-450 [facility] Comment on above: Performed By: #### C BC #### [facility] [address] [place] [address] Dr. Reece Garg RBC 4.45 106/ul Normal 4.20-5.40 [facility] Comment on above: Performed By: #### C BC #### [facility] [address] [place] [address] Dr. Reece Garg WBC 15.4 103/ul Critically high 4.0-11.0 [facility] Comment on above: Performed By: #### C BC #### [facility] [address] [place], [place] [address] ABD/PELV W CONon [...] LAVON ELIZALDE Date: 2023-04-03 01:36 Normal [facility] ER URINE PROFILEon 3 Bilirubin Ql (U) Negative Normal NEGATIVE [facility] Comment on above: Performed By: #### P REGU, ERUR #### [facility] [address] [place] [address] Dr. Reece Garg Clarity (U) CLEAR Normal CLEAR [facility] Comment on above: Performed By: #### P REGU, ERUR #### [facility] [address] [place] [address] Dr. Reece Garg Color (U) LT. YELLOW Normal YELLOW [facility] Comment on above: Performed By: #### P REGU, ERUR #### [facility] [address] [place] [address] Dr. Reece BERNABED A micrscopic examination will be performed if indicated. Normal [facility] Comment on above: Performed By: #### P REGU, ERUR #### [facility] [address] [place] [address] Dr. Reece Garg Glucose Ql (U) Negative Normal NEGATIVE [facility] Comment on above: Performed By: #### P REGU, ERUR #### [facility] [address] [place] [address] Dr. Reece Garg Hemoglobin Ql (U) Negative Normal NEGATIVE [facility] Comment on above: Performed By: #### P REGU, ERUR #### [facility] [address] [place] [address] Dr. Reece Garg Ketones Ql (U) 15 mg/dl Abnormal NEGATIVE [facility] Comment on above: Performed By: #### P REGU, ERUR #### [facility] [address] [place] [address] Dr. Reece Garg LEUKOCYTES Negative Normal NEGATIVE [facility] Comment on above: Performed By: #### P REGU, ERUR #### [facility] [address] [place] [address] Dr. Reece Garg Nitrite Ql (U) Negative Normal NEGATIVE [facility] Comment on above: Performed By: #### P REGU, ERUR #### [facility] [address] [place] [address] Dr. Reece Garg pH (U) 5.5 [pH] Normal 5-9 [facility] Comment on above: Performed By: #### P REGU, ERUR #### [facility] [address] [address] [address] Reece Garg SPEC GRAVITY <=1.005 Abnormal 1.005-<=1.025 [facility] Comment on above: Performed By: #### P REGU, ERUR #### [facility] [address] [address] [address] Reece Garg UA PROTEIN Negative Normal NEGATIVE/ TRACE [facility] Comment on above: Performed By: #### P REGU, ERUR #### [facility] [address] [address] [address] Reece Garg UR MICRO IND NOT INDICATED Normal [facility] Comment on above: Performed By: #### P REGU, ERUR #### [facility] [address] [address] [address] Reece Garg Urobilinogen Qn (U) 0.2 {Dariel'U}/dL Normal 0.2 - 1. 0 [facility] Comment on above: Performed By: #### P REGU, ERUR #### [facility] [address] [address] [address] Reece Garg LIPASEon 04-03-2023 Lipase [Catalytic activity/Vol] 62.0 U/L Critically low 73.0-393.0 [facility] Comment on above: Performed By: #### L IPA, ANDERSON ####[facility] [id number] [place] [address]Dr. Reece Garg MONOon 04-03-2023 Monocytes (Bld) [#/Vol] Negative Normal NEGATIVE [facility] Comment on above: Performed By: #### M JOSE DANIEL #### [facility] [address] [address] [address] Reece aGrg URon 04-03-2023 , QUAL Negative Normal NEGATIVE [facility] Comment on above: Performed By: #### P REGU, ERUR #### [facility] [address] [place] [address] Dr. Reece Garg PROF 14(COMP METB)on 023 Albumin [Mass/Vol] 3.3 g/dL Critically low 3.4-5.0 [facility] Comment on above: Performed By: #### C MP #### [facility] [address] [place] [address] Dr. Reece Garg Albumin/Globulin [Mass ratio] 1.0 {ratio} Normal [facility] Comment on above: Performed By: #### C MP #### [facility] [address] [address] [address] Reece Garg ALP [Catalytic activity/Vol] 38 U/L Critically low 46-116 [facility] Comment on above: Performed By: #### C MP #### [facility] [address] [place] [address] Dr. Reece Garg ALT [Catalytic activity/Vol] 16 U/L Normal 14-59 [facility] Comment on above: Performed By: #### C MP #### [facility] [address] [place] [address] Dr. Reece Garg Anion gap [Moles/Vol] 10.7 mmol/L Normal [facility] Comment on above: Performed By: #### C MP #### [facility] [address] [place] [address] Dr. Reece Garg AST [Catalytic activity/Vol] 10 U/L Critically low 15-37 [facility] Comment on above: Performed By: #### C MP #### [facility] [address] [place] [address] Dr. Reece Garg Bilirubin [Mass/Vol] 1.0 mg/dL Normal 0.2-1.0 [facility] Comment on above: Performed By: #### C MP #### [facility] [address] [place] [address] Dr. Reece Garg Calcium [Mass/Vol] 8.2 mg/dL Critically low 8.5-10.1 [facility] Comment on above: Performed By: #### C MP #### [facility] [address] [place] [address] Dr. Reece Garg Chloride [Moles/Vol] 106 mmol/L Normal 98-107 [facility] Comment on above: Performed By: #### C MP #### [facility] [address] [address] [address] Reece Garg CO2 [Moles/Vol] 27.0 mmol/L Normal 21.0-32.0 [facility] Comment on above: Performed By: #### C MP #### [facility] [address] [address] [address] Reece Garg Creatinine [Mass/Vol] 0.77 mg/dL Normal 0.55-1.02 [facility] Comment on above: Performed By: #### C MP #### [facility] [address] [address] [address] Reece Garg EGFR-AF QATARI >60 Normal >=60 [facility] Comment on above: Performed By: #### C MP #### [facility] [address] [address] [address] Reece Garg EGFR-NON AF QATARI >60 Normal >=60 [facility] Comment on above: Performed By: #### C MP #### [facility] [address] [address] [address] Reece Garg Globulin (S) [Mass/Vol] 3.3 g/dL Normal [facility] Comment on above: Performed By: #### C MP #### [facility] [address] [address] [address] Reece Garg Glucose [Mass/Vol] 102 mg/dL Normal 74-106 [facility] Comment on above: Performed By: #### C MP #### [facility] [address] [address] [address] Reece Garg Potassium [Moles/Vol] 3.7 mmol/L Normal 3.5-5.1 [facility] Comment on above: Performed By: #### C MP #### [facility] [address] [address] [address] Reece Garg Protein [Mass/Vol] 6.6 g/dL Normal 6.4-8.2 [facility] Comment on above: Performed By: #### C MP #### [facility] [address] [place] [address] Dr. Reece Garg Sodium [Moles/Vol] 140 mmol/L Normal 136-145 [facility] Comment on above: Performed By: #### C MP #### [facility] [address] [place] [address] Dr. Reece Garg Urea nitrogen [Mass/Vol] 8.0 mg/dL Normal 7.0-18.0 [facility] Comment on above: Performed By: #### C MP #### [facility] [address] [place] [address] Dr. Reece Garg Urea nitrogen/Creatinine [Mass ratio] 10.4 mg/mg Normal [facility] Comment on above: Performed By: #### C MP #### [facility] [address] [place] [address] Dr. Reece Garg PROTIMEon 04-03-2023 INR Coag (PPP) [Relative time] 1.06 {INR} Normal [facility] Comment on above: Performed By: #### P TT, PT #### [facility] [address] [place] [address] Dr. Reece Garg INR GUIDELINES SEE BELOW Normal [facility] Comment on above: Result Comment: JJ RED INR: 2.0 - 3.0 CONDITIONS NOT LISTED BELOW 2.5 - 3.5 FOR PROSTHETIC HEART VALVE REPLACEMENT 2.5 - 3.5 RECURRENT THROMBOSIS Performed By: #### P TT, PT #### [facility] [address] [place] [address] Dr. Reece Garg PT Coag (PPP) [Time] 11.2 s Normal 9.0-11.6 [facility] Comment on above: Performed By: #### P TT, PT #### [facility] [address] [place] [address] Dr. Reece Garg PTTon 04-03-2023 aPTT Coag (Bld) [Time] 28.1 s Normal 22.3-36.2 [facility] Comment on above: Performed By: #### P TT, PT #### [facility] [address] [place] [address] Dr. Reece Garg PAP ACOG PANEL 2: 32 to 67on 07-28-2022 . . Normal [facility] Comment on above: Result Comment: Perf ormed at: WB Performed By: #### [id number] ####[facility] [id number] [place] [address]DrHardik Garg Age Gdln ACOG Testing 30-65 Normal [facility] Comment on above: Performed By: #### [id number] ####[facility] [id number] [place] [address]DrHardik Garg DIAGNOSIS: Comment Normal [facility] Comment on above: Result Comment: NEGA TIVE FOR INTRAEPITHELIAL LESION OR MALIGNANCY. Performed at: WB Performed By: #### [id number] ####[facility] [address] [place], [place] [address]DrHardik Garg HPV Aptima Negative Normal Negative [facility] Comment on above: Result Comment: This nucleic acid amplification test detects fourteen high-risk HPV types (16,18,31,33,35,39,45,51,52,56,58,59,66,68) without differentiation. Performed at: =G Performed By: #### [id number] ####[facility] [address] [place], [place] [address]DrHardik Garg Methodology: Comment [facility] Comment on above: Result Comment: This liquid based ThinPrep(R) pap test was screened with the use of an image guided system. Performed at: WB Performed By: #### [id number] ####[facility] [address] [address]DrHardik Garg Note: Comment Normal [facility] Comment on above: Result Comment: The Pap smear is a screening test designed to aid in the detection of premalignant and malignant conditions of the uterine cervix. It is not a diagnostic procedure and should not be used as the sole means of detecting cervical cancer. Both false-positive and false-negative reports do occur. . Performed at: WB Performed By: #### [id number] ####[facility] [address] [place], [place] [address]DrHardik Garg Performed by: Comment Normal [facility] Comment on above: Result Comment: Alexandra Cortez, Vocational Teacher (ASCP) Performed at: WB Performed By: #### [id number] ####[facility] [address] [address]DrHardik Garg Specimen adequacy: Comment Normal [facility] Comment on above: Result Comment: Sati sfactory for evaluation. No endocervical component is identified. Performed at: WB Performed By: #### [id number] ####[facility] [address] [address]Dr. Reece Garg VAGINITIS/VAGINOSIS DNA PROB Erwin 07-24-2022 Mala species Negative Normal Negative [facility] Comment on above: Performed By: #### V AGINT #### [facility] [address] [address] [address] Reece Garg Gardnerella vaginalis Positive Abnormal Negative [facility] Comment on above: Performed By: #### V AGINT #### [facility] [address] [address] [address] Reece Garg Trichomonas vaginalis Negative Normal Negative [facility] Comment on above: Performed By: #### V AGINT #### [facility] [address] [address] [address] Reece Garg Consenton 06-03-2020 Consent [id number] 1.00CD:127 Normal [facility] Encounters Encounter Date Encounter Type Care Provider Facility Start: 07-18-2024 End: 07-18-2024 ambulatory THERESA DAVIS Not Available Start: 07-10-2024 End: 07-10-2024 ambulatory ANDERSON FRIED Not Available Start: 06-29-2024 End: 06-29-2024 ambulatory THERESA DAVIS Not Available Start: 05-25-2024 End: 05-25-2024 ambulatory [facility] Start: 04-27-2024 ambulatory [facility] Start: 04-04-2024 End: 04-04-2024 ambulatory ADELFO PEREZ Not Available Start: 02-16-2024 End: 02-16-2024 ambulatory THERESA Martinez RYAN Not Available Start: 02-10-2024 End: 02-10-2024 Office outpatient visit 15 minutes Jani Bridges MD Work Phone: [facility] Comment on above: Acute deep vein thro mbosis (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); May-Thurner syndrome Start: 02-10-2024 ambulatory [facility] Start: 01-31-2024 End: 01-31-2024 ambulatory ANGELIA HUDSON Not Available Start: 01-26-2024 End: 01-26-2024 [facility]: 01-24-2024 End: 01-26-2024 Evaluation and management of inpatient [facility] Start: 01-24-2024 End: 01-24-2024 ambulatory DL BUCK [facility] Start: 01-24-2024 ambulatory [facility] Start: 01-23-2024 End: 01-26-2024 Evaluation and management of inpatient STEPHEN STOKES [facility] Start: 01-23-2024 End: 01-25-2024 Evaluation and management of inpatient [facility] Start: 01-20-2024 End: 01-20-2024 ambulatory ANDERSON FRIED Not Available Start: 01-07-2024 End: 01-07-2024 ambulatory Angelia Hudson Facility:[facility] Start: 12-14-2023 End: 12-14-2023 ambulatory ANGELIA HUDSON Not Available Start: 11-04-2023 End: 11-04-2023 ambulatory ANGELIA HUDSON Not Available Start: 04-03-2023 End: 04-03-[address] USMAN ALVAREZ . Facility: Start: 07-26-2022 Encounter for gynecological examination (general) (routine) without abnormal findings DR EARLENE MCDONOUGH . [facility] Start: 07-22-2022 End: 07-22-[address] EARLENE [...] [facility] ing [facility] Start: 01-23-2025 Tobacco Screening [facility]ening [facility] Start: 01-22-2025 Depression Screening Depression Scre ening [facility] Start: 02-25-2024 End: 02-10-2025 US.doppler Thoracic and Abdominal Aorta and Inferior Vena Cava and Illiac vessels Vas IVC/iliac duplex complete Vascular Ultrasound Routine Acute deep vein thrombosis (DVT) of iliac vein of left lower extremity (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 Expected: 02/25/2024 (Approximate), Expires: 02/10/2025 [employer] Work Phone: Comment on above: Expected: 02/25/2024 (Approximate), Expires: 02/10/2025 Start: 07-16-2023 Influenza vaccination Influenza Vacc ine [facility] Start: 02-14-2019 DTaP,Tdap and Td Vaccines (6 - Tdap) DTaP,Tdap and Td Vaccines (6 - Tdap) [facility] Start: 2013 Screening for malign ant neoplasm of cervix Pap Smear [facility] Start: 2010 Adult BMI Follow Up Plan Adult BMI Follow Up Plan [facility] Payers Date Payer Category Payer Self-pay 2022 Unknown BABATUNDE JIMENEZ OUT OF STATE PPO/TRUST [id number] 2022-Present [phone] [address] [place] [address] [id number] 1992 Unknown [id number] 2.16.840.1.234004.3.579.2.593 1992 Unknown [id number] 2.16.840.1.540139.3.579.2.593 1992 Unknown [id number] 2.16.840.1.820994.3.579.2.1285 1992 Unknown [id number] 2.16.840.1.194562.3.579.2.1285 1992 Unknown [id number] 2.16840.1.720277.3.579.2.1285 1992 Unknown [id number] 2.16840.1.492337.3.579.2.1285 1992 Unknown [id number] 2.840.1.675312.3.579.2.1285 1992 Unknown [id number] 2.840.1.678845.3.579.2.1285 1992 Unknown [id number] 2.840.1.386059.3.579.2.1285 1992 Unknown [id number] 2.840.1.924986.3.579.2.1285 1992 Unknown [id number] 2.16840.1.424732.3.579.2.1285 1992 Unknown [id number] 2.16840.1.714155.3.579.2.1285 1992 Unknown [id number] 2.16840.1.865982.3.579.2.1258 1992 Unknown [id number] 2.16840.1.681002.3.579.2.1258 1992 Unknown [id number] 2.16840.1.070302.3.579.2.1258 1992 Unknown [id number] 2.16840.1.443088.3.579.2.1259 1992 Unknown [id number] 2.16.840.1.254530.3.579.2.9 1992 Unknown [id number] 2.16.840.1.086197.3.579.2.9 1992 Unknown [id number] 2.16.840.1.641254.3.579.2.9 1992 Unknown [id number] 2.16.840.1.895213.3.579.2.9 1992 Unknown [id number] 2.16.840.1.927321.3.579.2.1259 1957 Medicaid [id number] 1959 Unknown [id number] 1959 Unknown [id number] 1959 Unknown [id number] Social History Date Type Detail Facility Start: 01-23-2024 Tobacco smoking stat [facility] Ex-smoker [facility] History of tobacco use Current smoker [facility] History of tobacco use Cigarette Smoker [facility] Start: 01-23-2024 Tobacco use and exposure Smokeless tobacco non-user [facility] Start: 01-24-2024 Alcohol intake Ex-drinker (finding) [facility] Start: 01-23-2024 End: 01-24-2024 History of Social function [facility] Start: 01-23-2024 End: 01-24-2024 [facility] [employer] [facility] Has the [employer], or [employer] threatened to shut off services in your home in past 12Mo No [facility] How often to you hav e a drink containing alcohol? Never [facility] How many standard drinks containing alcohol do you have on a typical day? Patient does not drink [facility] Start: 1990 Sex Assigned At Not on file [facility] Medical Equipment Procedure Code Equipment Code Equipment Origin al Text Equipment Identifier Dates Stent Vsc 18mm X 100mm Venous Nitinol Slf Expanding Abre - [id number] Start: 01-24-2024 History of Present illness Narrative 02-10-2024 Jani Bridges MD - 02/10/2024 2:40 PM EDT Note Date & Type Note Facility 02-10-2024 History of Presen t illness Narrative Images from the original note were not included. [facility] [address] [facility] [address] Subjective: Patient ID: Kimberly Silverman is a [...] Problem List Diagnosis DVT (deep venous thrombosis) ([facility]) May-Thurner syndrome Current Outpatient Medications: [...] of iliac vein of left lower extremity ([facility]) May-Thurner syndrome Plan Plan: Eliquis ASA US of the left iliac veins F/U in 3 months Jani Bridges MD, [place] documented in this encounter [facility] Evaluation note Note Date & Type Note Facility Evaluation note Diagnosis Acute deep vein thrombosis (DVT) of iliac vein of left lower extremity ([facility])- 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 Compression of vein [...] Vas IVC/iliac duplex complete Jani Bridges MD [address], [address] [address] Referral ID Status Reason Start Date Expiration Date V isits Requested Visits Authorized [id number] Pending Review 02/11/2024 02/10/2025 1 1 Additional Source Comments INFORMATION SOURCE (unrecogn ized section and content) DATE CREATED AUTHOR 06/08/2020 [facility] DATE CREATED AUTHOR AUTHOR'S ORGANIZ ATION 04/23/2023 [facility] DATE CREATED AUTHOR AUTHOR'S ORGANIZ ATION 01/16/2024 [facility] DATE CREATED AUTHOR AUTHOR'S ORGANIZ ATION 01/27/2024 [facility] DATE CREATED AUTHOR AUTHOR'S ORGANIZ ATION 05/31/2024 [facility] DATE CREATED AUTHOR AUTHOR'S ORGANIZ ATION 07/19/2024 [facility] EPIC Reason for Visit (unrecogniz ed section and content) Reason Comments Follow-up Thrombectomy lle. DV T and iliac stenting. Per patient she notes some discomfort to lle with mi Care Teams (unrecognized sec tion and content) Attending Ambulatory Care Relationship Specialty Start Date End Date Usman Alvarez MD [address] [place] [address] PCP - General 02/09/24 FOR RECORDS PERTAINING [...] BE BASED ON THE PRIMARY CLINICAL RECORDS. [facility]. provides no warranty or guarantee of the accuracy or completeness of information in this document.
[2024-08-04 10:14] LABS: Age Gdln ACOG Testing Note (.); HPV Aptima Negative (Negative); IGP, Aptima HPV, rfx 16/18,45 Note (.)
== END 2024-07-31 21:04 | disposition home or self-care (01) ==
LOC: LAB 21:03
PROVIDERS: PCP Family Medicine; Visit Provider Obstetrics & Gynecology
DX: Z01.419 Encounter for gynecological examination (general) (routine) without abnormal findings (principal)
CPT/HCPCS: 87624; 88175

== ENCOUNTER 2024-08-04 08:24 | Outpatient (OUT) | payer OTHER, SELFPAY ==
--- NOTE | 2024-08-04 | CT_ITS ---
The [address] [address] Patient Name: KIMBERLY MCMAHON MRN: [id number] date: 1990 Sex: F Assigned Patient Location: CT Current Patient Location: LAB Accession/Order Number: [id number] Exam Date: 08/04/2024 08:35 Report Date: 08/04/2024 14:43 At the request of: USMAN RODRIGEZ Procedure: CT hip LT wo con EXAMINATION: CT hip LT wo con HISTORY: M25.552, LEFT HIP PAIN COMPARISON: 07/21/2024 plain x-ray TECHNIQUE: Multi-planar CT images were created without IV contrast. Dose reduction techniques were achieved by using automated exposure control and/or adjustment of mA and/or kV according to patient size and/or use of iterative reconstruction technique. FINDINGS: BONES: No acute fracture or dislocation. No significant degenerative changes. SOFT TISSUES: Negative. No visible soft tissue swelling. EFFUSION: None visible. OTHER: Negative. CT/CT hip LT wo con IMPRESSION: No acute abnormality Electronically authenticated by: MINISTERIO MCCRAY Date: 08/04/2024 14:43
--- OUTSIDE RECORDS SUMMARY | 2024-08-04 08:34 | XMS_ITS | CCD ---
Author Organization [facility] Care Team Providers Care Nurse Transition Name Role Phone RAIN ., DR MARY Attending Unavailable HOY ., DR MARY Admitting Unavailable HOY ., DR MARY Primary Care Unavailable HOY ., DR MARY Consulting Unavailable SARAI WILKINS Consulting Unavailable LAVON ELIZALDE Consulting Unavailable SISTER, CUCA Consulting Unavailable ARTURO II, LUL Consulting Unavailable VERNELL ., DL Consulting Unavailable CEASAR ., DR HENAO Admitting Unavailulices e KARELIZABETHK ., DR HENAO Consulting Unavailabl e KARASIK ., DR HENAO Attending Unavailabl e HOY ., DR MARY Primary Care Unavailable Angelia Treviño Attending Unavailable Angelia Treviño Admitting Unavailable ADDISON, SUYAPAAMED F Admitting Unavailable ADDISON, MOHAMED F Attending Unavailable FLORA LAL Referring Unavailable DL BUCK Referring Unavailable STEPHEN STOKES Referring Unavailable PAUL CHACON Attending Unavailable ADDISON, SUYAPAAMED F Attending Unavailable ADDISON, MOHAMED F Referring Unavailable Usman Alvarez MD Primary Care Provider [phone] SUYAPA BRIDGESAMED F Attending Unavailable JAUNY, USMAN M Primary Care Unavailable ADDISON, MOHAMED F Attending Unavailable HOY, USMAN M Referring Unavailable HOY, USMAN M Primary Care Unavailable ADDISON, MOHAMED F Attending Unavailable RAIN, USMAN M Referring Unavailable JAUNY, USMAN M Primary Care Unavailable ANGELIA TREVIÑO Attending Unavailable ANDERSON FRIED Attending Unavailable ANGELIA TREVIÑO Attending Unavailable THERESA DAVIS Attending Unavailable ADELFO PEREZ Attending Unavailable HOY, USMAN M Referring Unavailable THERESA DAVIS Attending Unavailable ANDERSON FRIED Attending Unavailable THERESA DAVIS Attending Unavailable ANGELIA TREVIÑO Attending Unavailable ANGELIA TREVIÑO Attending Unavailable Medications [...] in the morning. 0 Active lactobacillus acidophilus [id number] unt / pectin 100 mg oral tablet [...] visceral atherosclerosis (1 source) Unspecified atherosclerosis of [place] arteries of extremities, other extremity; Translations: [Unspecified atherosclerosis of [place] arteries of extremities, other extremity] Onset: 04-27-2024 [...] Anion gap [Moles/Vol] 7 mmol/L Normal 5-15 [facility] Comment on above: Performed By: #### C BCA, PINR, 85578-7, BMP #### [facility] ([id number]) [address], [address] [place] [address] Calcium [Mass/Vol] 8.7 mg/dL Normal 8.5-10.5 [facility] Comment on above: Performed By: #### C BCA, PINR, 40286-7, BMP #### [facility] ([id number]) [address], [address] [place] [address] Chloride [Moles/Vol] 106 mmol/L Normal 98-109 [facility] Comment on above: Performed By: #### C BCA, PINR, 74963-1, BMP #### [facility] ([id number]) [address], [address] [place] [address] CO2 [Moles/Vol] 23 mmol/L Normal 22-32 [facility] Comment on above: Performed By: #### C BCA, PINR, 08050-2, BMP #### [facility] ([id number]) [address], [address] [place] [address] Creatinine [Mass/Vol] 0.57 mg/dL Normal 0.40-1.00 [facility] Comment on above: Result Comment: METH OD TRACEABLE TO IDMS STANDARD Performed By: #### C BCA, PINR, 69592-6, BMP #### [facility] ([id number]) [address], [address] [place] [address] eGFR (CKD-EPI) NON-RACE DEPENDENT >90 Normal >59 [facility] Comment on above: Result Comment: Reported eGFR is based on the CKD-EPI 2020 equation that does not use a race coefficient. Performed By: #### C BCA, PINR, 22225-5, BMP #### [facility] ([id number]) [address], [address] [place] [address] Glucose [Mass/Vol] 139 mg/dL High 65-99 [facility] Comment on above: Performed By: #### C BCA, PINR, 03088-8, BMP #### [facility] ([id number]) [address], [address] [place] [address] Potassium [Moles/Vol] 4.3 mmol/L Normal 3.5-5.0 [facility] Comment on above: Performed By: #### C BCA, PINR, 91297-3, BMP #### [facility] ([id number]) [address], [address] [place] [address] Sodium [Moles/Vol] 136 mmol/L Normal 134-146 [facility] Comment on above: Performed By: #### C BCA, PINR, 16937-1, BMP #### [facility] ([id number]) [address], [address] [place] [address] Urea nitrogen [Mass/Vol] 6 mg/dL Normal 5-23 [facility] Comment on above: Performed By: #### C BCA, PINR, 20854-9, BMP #### [facility] ([id number]) [address], [address] [place] [address] CBC AND AUTO DIFFon 01-25-20 24 ABSOLUTE BASOPHIL 0.0 X10E9/L Normal 0.0-0.2 [facility] Comment on above: Performed By: #### C BRENNON PINR, 39638-9, BMP #### [facility] ([id number]) [address], [address] [place] [address] ABSOLUTE NEUTROPHIL 2.9 X10E9/L Normal 1.5-6.6 [facility] Comment on above: Performed By: #### C BRENNON PINR, 06789-1, BMP #### [facility] ([id number]) [address], [address] [place] [address] Basophils/100 WBC (Bld) 0.1 % Normal [facility] Comment on above: Performed By: #### Anastasiya WILLETT PINR, 73233-5, BMP #### [facility] ([id number]) [address], [address] [place] [address] Eosinophils (Bld) [#/Vol] 0.0 10*3/uL Normal 0.0-0.4 [facility] Comment on above: Performed By: #### Anastasiya WILLETT PINR, 62714-4, BMP #### [facility] ([id number]) [address], [address] [place] [address] Eosinophils/100 WBC (Bld) 0.0 % Normal [facility] Comment on above: Performed By: #### Anastasiya WILLETT PINR, 17746-1, BMP #### [facility] ([id number]) [address], [address] [place] [address] Erythrocyte distribution width (RBC) [Ratio] 11.8 % Normal 11.5-15.0 [facility] Comment on above: Performed By: #### C BRENNON PINR, 49170-9, BMP #### [facility] ([id number]) [address], [address] [place] [address] Hematocrit (Bld) [Volume fraction] 35.5 % Normal 35-47 [facility] Comment on above: Performed By: #### C BRENNON PINR, 86712-8, BMP #### [facility] ([id number]) [address], [facility] [address] [place] [address] Hemoglobin (Bld) [Mass/Vol] 12.3 g/dL Normal 11.7-15.5 [facility] Comment on above: Performed By: #### C BRENNON PINR, 32810-1, BMP #### [facility] ([id number]) [address], [facility] [address] [place] [address] Lymphocytes (Bld) [#/Vol] 0.4 10*3/uL Low 1.0-3.5 [facility] Comment on above: Performed By: #### C BRENNON PINR, 58944-8, BMP #### [facility] ([id number]) [address], [facility] [address] [place] [address] Lymphocytes/100 WBC (Bld) 13.1 % Normal [facility] Comment on above: Performed By: #### C BRENNON PINR, 94300-7, BMP #### [facility] ([id number]) [address], [address] [place] [address] MCH (RBC) [Entitic mass] 32.3 pg Normal 27-34 [facility] Comment on above: Performed By: #### Anastasiya WILLETT PINR, 78489-9, BMP #### [facility] ([id number]) [address], [address] [place] [address] MCHC (RBC) [Mass/Vol] 34.6 g/dL Normal 32-36 [facility] Comment on above: Performed By: #### C BCA, PINR, 81004-3, BMP #### [facility] ([id number]) [address], [address] [place] [address] MCV (RBC) [Entitic vol] 94 fL Normal 80-100 [facility] Comment on above: Performed By: #### C BCA, PINR, 52354-6, BMP #### [facility] ([id number]) [address], [address] [place] [address] Monocytes (Bld) [#/Vol] 0.1 10*3/uL Normal 0-0.9 [facility] Comment on above: Performed By: #### C BRENNON, PINR, 52023-3, BMP #### [facility] ([id number]) [address], [facility] [address] [place] [address] Monocytes/100 WBC (Bld) 2.4 % Normal [facility] Comment on above: Performed By: #### C BCA, PINR, 00507-7, BMP #### [facility] ([id number]) [address], [facility] [address] [place] [address] Neutrophils/100 WBC (Bld) 84.4 % Normal [facility] Comment on above: Performed By: #### C BRENNON, PINR, 77740-4, BMP #### [facility] ([id number]) [address], [address] [place] [address] Platelet mean volume (Bld) [Entitic vol] 9.1 fL Normal 7-12 [facility] Comment on above: Performed By: #### C BRENNON, PINR, 78990-8, BMP #### [facility] ([id number]) [address], [address] [place] [address] Platelets (Bld) [#/Vol] 142 10*3/uL Low 150-450 [facility] Comment on above: Performed By: #### C BCA, PINR, 19802-3, BMP #### [facility] ([id number]) [address], [address] [place] [address] RBC COUNT 3.79 X10E12/L Low 3.80-5.20 [facility] Comment on above: Performed By: #### C SADAF WILLETT, 14173-9, BMP #### [facility] ([id number]) [address], [address] [place] [address] WBC (Bld) [#/Vol] 3.4 10*3/uL Low 4.0-11.0 [facility] Comment on above: Performed By: #### C SADAF WILLETT, 54277-8, BMP #### [facility] ([id number]) [address] [address] Heparin unfractionated Chrom ogenic method Qn (PPP)on 01-25-2024 ANTI XA UFH 0.68 IU/mL Normal 0.30-0.70 [facility] Comment on above: Result Comment: Opti mal time for testing is 6 hrs post dosage This test is specific for monitoring patients on UFH, and is not recommended for use with other Anti-Xa medications. Performed By: #### C SADAF WILLETT, 97115-5, BMP #### [facility] ([id number]) [address] [address] [place] [address] ANTI CARDIOLIPIN AB IGG IGA IGMon 01-24-2024 MELBA IgA <2.0 Normal 0-19.9 [facility] Comment on above: Performed By: #### A CA B2G #### [facility] ([id number]) [address] [address] MELBA IgG <1.6 Normal 0-19.9 [facility] Comment on above: Performed By: #### A CA B2G #### [facility] ([id number]) [address], [address] [place] [address] MELBA IgM <1.5 Normal 0-19.9 [facility] Comment on above: Performed By: #### A CA, B2G #### [facility] ([id number]) [address], [facility] [address] [place] [address] BASIC METABOLIC PANLon 01-23 Anion gap [Moles/Vol] 8 mmol/L Normal 5-15 [facility] Comment on above: Performed By: #### 3 274-8, CBCA, BMP #### [facility] ([id number]) [address], [facility] [address] [place] [address] Calcium [Mass/Vol] 8.0 mg/dL Low 8.5-10.5 [facility] Comment on above: Performed By: #### 3 274-8, CBCA, BMP #### [facility] ([id number]) [address], [address] [address] Chloride [Moles/Vol] 106 mmol/L Normal 98-109 [facility] Comment on above: Performed By: #### 3 274-8, CBCA, BMP #### [facility] ([id number]) [address], [facility] [address] [place] [address] CO2 [Moles/Vol] 22 mmol/L Normal 22-32 [facility] Comment on above: Performed By: #### 3 274-8, CBCA, BMP #### [facility] ([id number]) [address], [address] [address] Creatinine [Mass/Vol] 0.53 mg/dL Normal 0.40-1.00 [facility] Comment on above: Result Comment: METH OD TRACEABLE TO IDMS STANDARD Performed By: #### 3 274-8, CBCA, BMP #### [facility] ([id number]) [address], [address] [place] [address] eGFR (CKD-EPI) NON-RACE DEPENDENT >90 Normal >59 [facility] Comment on above: Result Comment: Reported eGFR is based on the CKD-EPI 2020 equation that does not use a race coefficient. Performed By: #### 3 274-8, CBCA, BMP #### [facility] ([id number]) [address], [address] [place] [address] Glucose [Mass/Vol] 76 mg/dL Normal 65-99 [facility] Comment on above: Performed By: #### 3 274-8, CBCA, BMP #### [facility] ([id number]) [address], [facility] [address] [place] [address] Potassium [Moles/Vol] 3.8 mmol/L Normal 3.5-5.0 [facility] Comment on above: Performed By: #### 3 274-8, CBCA, BMP #### [facility] ([id number]) [address], [facility] [address] [place] [address] Sodium [Moles/Vol] 136 mmol/L Normal 134-146 [facility] Comment on above: Performed By: #### 3 274-8, CBCA, BMP #### [facility] ([id number]) [address], [facility] [address] [place] [address] Urea nitrogen [Mass/Vol] 10 mg/dL Normal 5-23 [facility] Comment on above: Performed By: #### 3 274-8, CBCA, BMP #### [facility] ([id number]) [address], [address] [place] [address] BETA-2 GP1 AB PANELon 2023 BETA-2 GP1 IgA <2.0 Normal 0.0-19.9 [facility] Comment on above: Performed By: #### C BCA, PINR, 11949-3, BMP #### [facility] ([id number]) [address], [address] [place] [address] BETA-2 GP1 IgG <1.4 Normal 0.0-19.9 [facility] Comment on above: Performed By: #### C BRENNON, PINR, 75578-4, BMP #### [facility] ([id number]) [address], [address] [place] [address] BETA-2 GP1 IgM <1.5 Normal 0.0-19.9 [facility] Comment on above: Performed By: #### C BRENNON, PINR, 16872-3, BMP #### [facility] ([id number]) [address], [address] [place] [address] CBC AND AUTO DIFFon 01-24-20 24 ABSOLUTE BASOPHIL 0.0 X10E9/L Normal 0.0-0.2 [facility] Comment on above: Performed By: #### 3 274-8, CBCA, BMP #### [facility] ([id number]) [address], [address] [place] [address] ABSOLUTE NEUTROPHIL 3.7 X10E9/L Normal 1.5-6.6 [facility] Comment on above: Performed By: #### 3 274-8, CBCA, BMP #### [facility] ([id number]) [address], [address] [place] [address] Basophils/100 WBC (Bld) 0.4 % Normal [facility] Comment on above: Performed By: #### 3 274-8, CBCA, BMP #### [facility] ([id number]) [address], [address] [place] [address] Eosinophils (Bld) [#/Vol] 0.2 10*3/uL Normal 0.0-0.4 [facility] Comment on above: Performed By: #### 3 274-8, CBCA, BMP #### [facility] ([id number]) [address], [address] [place] [address] Eosinophils/100 WBC (Bld) 2.9 % Normal [facility] Comment on above: Performed By: #### 3 274-8, CBCA, BMP #### [facility] ([id number]) [address], [facility] [address] [place] [address] Erythrocyte distribution width (RBC) [Ratio] 12.3 % Normal 11.5-15.0 [facility] Comment on above: Performed By: #### 3 274-8, CBCA, BMP #### [facility] ([id number]) [address], [facility] [address] [place] [address] Hematocrit (Bld) [Volume fraction] 36.4 % Normal 35-47 [facility] Comment on above: Performed By: #### 3 274-8, CBCA, BMP #### [facility] ([id number]) [address], [facility] [address] [place] [address] Hemoglobin (Bld) [Mass/Vol] 12.4 g/dL Normal 11.7-15.5 [facility] Comment on above: Performed By: #### 3 274-8, CBCA, BMP #### [facility] ([id number]) [address], [facility] [address] [place] [address] Lymphocytes (Bld) [#/Vol] 1.9 10*3/uL Normal 1.0-3.5 [facility] Comment on above: Performed By: #### 3 274-8, CBCA, BMP #### [facility] ([id number]) [address], [facility] [address] [place] [address] Lymphocytes/100 WBC (Bld) 29.7 % Normal [facility] Comment on above: Performed By: #### 3 274-8, CBCA, BMP #### [facility] ([id number]) [address], [address] [place] [address] MCH (RBC) [Entitic mass] 32.5 pg Normal 27-34 [facility] Comment on above: Performed By: #### 3 274-8, CBCA, BMP #### [facility] ([id number]) [address], [address] [place] [address] MCHC (RBC) [Mass/Vol] 34.2 g/dL Normal 32-36 [facility] Comment on above: Performed By: #### 3 274-8, CBCA, BMP #### [facility] ([id number]) [address], [address] [place] [address] MCV (RBC) [Entitic vol] 95 fL Normal 80-100 [facility] Comment on above: Performed By: #### 3 274-8, CBCA, BMP #### [facility] ([id number]) [address], [address] [place] [address] Monocytes (Bld) [#/Vol] 0.5 10*3/uL Normal 0-0.9 [facility] Comment on above: Performed By: #### 3 274-8, CBCA, BMP #### [facility] ([id number]) [address], [address] [place] [address] Monocytes/100 WBC (Bld) 8.2 % Normal [facility] Comment on above: Performed By: #### 3 274-8, CBCA, BMP #### [facility] ([id number]) [address], [address] [place] [address] Neutrophils/100 WBC (Bld) 58.8 % Normal [facility] Comment on above: Performed By: #### 3 274-8, CBCA, BMP #### [facility] ([id number]) [address], [address] [place] [address] Platelet mean volume (Bld) [Entitic vol] 8.7 fL Normal 7-12 [facility] Comment on above: Performed By: #### 3 274-8, CBCA, BMP #### [facility] ([id number]) [address], [address] [place] [address] Platelets (Bld) [#/Vol] 128 10*3/uL Low 150-450 [facility] Comment on above: Performed By: #### 3 274-8, CBCA, BMP #### [facility] ([id number]) [address], [address] [place] [address] RBC COUNT 3.83 X10E12/L Normal 3.80-5.20 [facility] Comment on above: Performed By: #### 3 274-8, CBCA, BMP #### [facility] ([id number]) [address] [facility], [address] [address] WBC (Bld) [#/Vol] 6.4 10*3/uL Normal 4.0-11.0 [facility] Comment on above: Performed By: #### 3 274-8, CBCA, BMP #### [facility] ([id number]) [address], [address] [address] Heparin unfractionated Chrom ogenic method Qn (PPP)on 01-24-2024 ANTI XA UFH 0.47 IU/mL Normal 0.30-0.70 [facility] Comment on above: Result Comment: Opti mal time for testing is 6 hrs post dosage This test is specific for monitoring patients on UFH, and is not recommended for use with other Anti-Xa medications. Performed By: #### 3 274-8, CBCA, BMP #### [facility] ([id number]) [address], [address] [address] dRVVT/dRVVT.excess phospholi pid Coag (PPP) [Ratio]on 01-24-2024 DILUTE VERONIKA'S [facility]ER VENOM Negative Normal [facility] Comment on above: Performed By: #### C BCA, PINR, 80496-9, BMP #### [facility] ([id number]) [address] [facility] [place] [address] BASIC METABOLIC PANLon 03-10 -2024 Anion gap [Moles/Vol] 11 mmol/L Normal 5-15 [facility] Comment on above: Performed By: #### C BCA, PINR, 39949-9, BMP #### [facility] ([id number]) [address], [address] [place] [address] Calcium [Mass/Vol] 8.3 mg/dL Low 8.5-10.5 [facility] Comment on above: Performed By: #### C BCA, PINR, 58214-7, BMP #### [facility] ([id number]) [address], [facility] [address] [place] [address] Chloride [Moles/Vol] 106 mmol/L Normal 98-109 [facility] Comment on above: Performed By: #### C BCA, PINR, 74441-4, BMP #### [facility] ([id number]) [address], [address] [place] [address] CO2 [Moles/Vol] 21 mmol/L Low 22-32 [facility] Comment on above: Performed By: #### C BCA, PINR, 10388-4, BMP #### [facility] ([id number]) [address], [facility] [address] [place] [address] Creatinine [Mass/Vol] 0.65 mg/dL Normal 0.40-1.00 [facility] Comment on above: Result Comment: METH OD TRACEABLE TO IDMS STANDARD Performed By: #### C BCA, PINR, 49182-8, BMP #### [facility] ([id number]) [address], [facility] [address] [place] [address] eGFR (CKD-EPI) NON-RACE DEPENDENT >90 Normal >59 [facility] Comment on above: Result Comment: Reported eGFR is based on the CKD-EPI 2020 equation that does not use a race coefficient. Performed By: #### C BCA, PINR, 79702-9, BMP #### [facility] ([id number]) [address], [address] [place] [address] Glucose [Mass/Vol] 78 mg/dL Normal 65-99 [facility] Comment on above: Performed By: #### C BCA, PINR, 01219-6, BMP #### [facility] ([id number]) [address], [address] [place] [address] Potassium [Moles/Vol] 3.9 mmol/L Normal 3.5-5.0 [facility] Comment on above: Performed By: #### C BRENNON, PINR, 52187-1, BMP #### [facility] ([id number]) [address] [place] [address] Sodium [Moles/Vol] 138 mmol/L Normal 134-146 [facility] Comment on above: Performed By: #### C BRENNON, PINR, 69587-9, BMP #### [facility] ([id number]) [address] [place] [address] Urea nitrogen [Mass/Vol] 11 mg/dL Normal 5-23 [facility] Comment on above: Performed By: #### C BCA, PINR, 07949-6, BMP #### [facility] ([id number]) [address], [address] [place] [address] CBC AND AUTO DIFFon 01-23-20 24 ABSOLUTE BASOPHIL 0.0 X10E9/L Normal 0.0-0.2 [facility] Comment on above: Performed By: #### C BCA, PINR, 09947-1, BMP #### [facility] ([id number]) [address], [address] [place] [address] ABSOLUTE NEUTROPHIL 6.6 X10E9/L Normal 1.5-6.6 [facility] Comment on above: Performed By: #### C BCA, PINR, 69409-3, BMP #### [facility] ([id number]) [address], [address] [place] [address] Basophils/100 WBC (Bld) 0.3 % Normal [facility] Comment on above: Performed By: #### C BRENNON, PINR, 08591-5, BMP #### [facility] ([id number]) [address], [address] [place] [address] Eosinophils (Bld) [#/Vol] 0.1 10*3/uL Normal 0.0-0.4 [facility] Comment on above: Performed By: #### C BRENNON, PINR, 07106-8, BMP #### [facility] ([id number]) [address], [address] [place] [address] Eosinophils/100 WBC (Bld) 0.8 % Normal [facility] Comment on above: Performed By: #### C BRENNON, PINR, 60156-9, BMP #### [facility] ([id number]) [address], [address] [place] [address] Erythrocyte distribution width (RBC) [Ratio] 12.4 % Normal 11.5-15.0 [facility] Comment on above: Performed By: #### C BRENNON, PINR, 36491-3, BMP #### [facility] ([id number]) [address], [address] [place] [address] Hematocrit (Bld) [Volume fraction] 39.4 % Normal 35-47 [facility] Comment on above: Performed By: #### C BRENNON, PINR, 62202-9, BMP #### [facility] ([id number]) [address], [address] [place] [address] Hemoglobin (Bld) [Mass/Vol] 13.8 g/dL Normal 11.7-15.5 [facility] Comment on above: Performed By: #### C BRENNON, PINR, 35068-9, BMP #### [facility] ([id number]) [address], [address] [place] [address] Lymphocytes (Bld) [#/Vol] 1.9 10*3/uL Normal 1.0-3.5 [facility] Comment on above: Performed By: #### C BRENNON, PINR, 54819-6, BMP #### [facility] ([id number]) [address], [facility] [address] [place] [address] Lymphocytes/100 WBC (Bld) 20.6 % Normal [facility] Comment on above: Performed By: #### C BRENNON, PINR, 65291-6, BMP #### [facility] ([id number]) [address], [facility] [address] [place] [address] MCH (RBC) [Entitic mass] 32.7 pg Normal 27-34 [facility] Comment on above: Performed By: #### Anastasiya WILLETT, PINR, 76108-3, BMP #### [facility] ([id number]) [address], [address] [place] [address] MCHC (RBC) [Mass/Vol] 34.9 g/dL Normal 32-36 [facility] Comment on above: Performed By: #### Anastasiya WILLETT, PINR, 85058-1, BMP #### [facility] ([id number]) [address], [facility] [address] [place] [address] MCV (RBC) [Entitic vol] 94 fL Normal 80-100 [facility] Comment on above: Performed By: #### C BRENNON, PINR, 83204-3, BMP #### [facility] ([id number]) [address] [address] [place] [address] Monocytes (Bld) [#/Vol] 0.6 10*3/uL Normal 0-0.9 [facility] Comment on above: Performed By: #### Anastasiya WILLETT, PINR, 29419-3, BMP #### [facility] ([id number]) [address], [address] [place] [address] Monocytes/100 WBC (Bld) 6.0 % Normal [facility] Comment on above: Performed By: #### C BRENNON, PINR, 41349-0, BMP #### [facility] ([id number]) [address], [address] [place] [address] Neutrophils/100 WBC (Bld) 72.3 % Normal [facility] Comment on above: Performed By: #### C BRENNON, PINR, 24517-7, BMP #### [facility] ([id number]) [address], [address] [place] [address] Platelet mean volume (Bld) [Entitic vol] 8.4 fL Normal 7-12 [facility] Comment on above: Performed By: #### Anastasiya WILLETT, PINR, 42320-4, BMP #### [facility] ([id number]) [address] [place] [address] Platelets (Bld) [#/Vol] 156 10*3/uL Normal 150-450 [facility] Comment on above: Performed By: #### Anastasiya BCA, PINR, 57828-2, BMP #### [facility] ([id number]) [address], [address] [place] [address] RBC COUNT 4.21 X10E12/L Normal 3.80-5.20 [facility] Comment on above: Performed By: #### C BCA, PINR, 11673-2, BMP #### [facility] ([id number]) [address], [address] [place] [address] WBC (Bld) [#/Vol] 9.1 10*3/uL Normal 4.0-11.0 [facility] Comment on above: Performed By: #### Anastasiya BCA, PINR, 02381-3, BMP #### [facility] ([id number]) [address] [place] [address] CT CTV ABD AND PELVISon 01-13 CT [...] Hill MD on 01/23/2024 4:56 PM Normal [facility] Heparin unfractionated Chrom ogenic method Qn (PPP)on 01-23-2024 ANTI XA UFH 0.44 IU/mL Normal 0.30-0.70 [facility] Comment on above: Result Comment: Opti mal time for testing is 6 hrs post dosage This test is specific for monitoring patients on UFH, and is not recommended for use with other Anti-Xa medications. Performed By: #### 3 274-8 #### [facility] ([id number]) [address] [place] [address] PROTIME AND INRon 01-23-2024 INR Coag (PPP) [Relative time] 1.1 {INR} Normal 0.8-1.1 [facility] Comment on above: Performed By: #### C BCA, PINR, 02680-6, BMP #### [facility] ([id number]) [address], [address] [place] [address] PT Coag (PPP) [Time] 12.3 s Normal 9.8-13.2 [facility] Comment on above: Performed By: #### C BCA, PINR, 75722-7, BMP #### [facility] ([id number]) [address], [address] [place] [address] aPTT Coag (PPP) [Time]on aPTT Coag (Bld) [Time] 51 s High 26-37 [facility] Comment on above: Performed By: #### C BCA, PINR, 97187-9, BMP #### [facility] ([id number]) [address], [address] [place] [address] Angelito 01-07-2024 L Specimen: [id number] Received: 01/10/24 Status: MICHAEL Waldron Num: [id number] Spec Type: Surgical Subm Dr: Angelia Trevñio Tissues: A Fallopian Tube - Sterilization (BILATERAL) Procedures: HE/3, Gross/Micro L2 Age/ Patient Sex Location Account Attending Physician Kimbrely Silverman 33/F [facility] [id number] Angelia Treviño SPEC NUM: [id number] RECD: 01/10/24 STATUS: MICHAEL WALDRON NUM: [id number] ANICETO: 01/07/[address]: Angelia Treviño ENTERED: [...] markedly dilated lumens throughout all 3 segments. Interface Analyst sections are submitted in 3 cassettes as follows: A1 - Cross-sections of shortest segment A2 - Cross-sections intermediate length segment A3 - Cross-sections longest segment CPT Codes 98289 -------- -------- Specimen: [id number] Received: 01/10/24 Status: MICHAEL Waldron Num: [id number] Spec Type: Surgical Subm Dr: Angelia Treviño Tissues: A Fallopian Tube - Sterilization (BILATERAL) Procedures: HE/3, Gross/Micro L2 -------- Patient: Kimberly Silverman [id number] (Continued) -------- Signed (signature on file) Jani Garcia MD 01/15/24 0853 [facility] AMYLASEon 04-03-2023 Amylase [Catalytic activity/Vol] 62 U/L Normal 25-115 [facility] Comment on above: Performed By: #### L JOSR, ANDERSON ####[facility] [address] [address]Dr[address] Reece Garg CBC AUTO DIFFon 04-03-2023 BASO # 0.0 103/ul Normal 0.0-0.1 [facility] Comment on above: Performed By: #### C BC #### [facility] [address] [address] [address] Reece Garg Basophils/100 WBC (Bld) 0.3 % Normal 0.2-2.0 [facility] Comment on above: Performed By: #### C BC #### [facility] [address] [address] [address] Reece Garg EO # 0.1 103/ul Normal 0.0-0.7 [facility] Comment on above: Performed By: #### C BC #### [facility] [address] [address] [address] Reece Garg Eosinophils/100 WBC (Bld) 0.6 % Critically low 0.9-7.0 [facility] Comment on above: Performed By: #### C BC #### [facility] [address] [address] [address] Reece Garg Erythrocyte distribution width (RBC) [Ratio] 11.9 % Normal 11.0-15.0 [facility] Comment on above: Performed By: #### C BC #### [facility] [address] [place] [address] Dr. Reece Garg Hematocrit (Bld) [Volume fraction] 37.7 % Normal 36.0-48.0 [facility] Comment on above: Performed By: #### C BC #### [facility] [address] [place] [address] Dr. Reece Garg Hemoglobin (Bld) [Mass/Vol] 12.9 g/dL Normal 12.0-16.0 [facility] Comment on above: Performed By: #### C BC #### [facility] [address] [place] [address] Dr. Reece Garg IG # 0.05 10e3/ul Critically high 0.00-0.03 [facility] Comment on above: Performed By: #### C BC #### [facility] [address] [place] [address] Dr. Reece Garg IG % 0.4 % Normal 0.0-0.5 [facility] Comment on above: Performed By: #### C BC #### [facility] [address] [place] [address] Dr. Reece Garg LYMPH # 2.3 103/ul Normal 1.2-3.8 [facility] Comment on above: Performed By: #### C BC #### [facility] [address] [place] [address] Dr. Reece Garg Lymphocytes/100 WBC (Bld) 20.8 % Normal 20.5-60.0 [facility] Comment on above: Performed By: #### C BC #### [facility] [address] [place] [address] Dr. Reece Garg MANUAL DIFF REQ NO Normal [facility] Comment on above: Performed By: #### C BC #### [facility] [address] [place] [address] Dr. Reece Garg MCH (RBC) [Entitic mass] 32.3 pg Normal 26.7-34.0 [facility] Comment on above: Performed By: #### C BC #### [facility] [address] [place] [address] Dr. Reece Garg MCHC (RBC) [Mass/Vol] 34.2 g/dL Normal 29.9-35.2 [facility] Comment on above: Performed By: #### C BC #### [facility] [address] [address] [address] Reece Garg MCV (RBC) [Entitic vol] 94.3 fL Normal 81.0-99.0 [facility] Comment on above: Performed By: #### C BC #### [facility] [address] [place] [address] Dr. Reece Garg MONO # 0.6 103/ul Normal 0.3-0.8 [facility] Comment on above: Performed By: #### C BC #### [facility] [address] [place] [address] Dr. Reece Garg Monocytes/100 WBC (Bld) 5.3 % Normal 1.7-12.0 [facility] Comment on above: Performed By: #### C BC #### [facility] [address] [place] [address] Dr. Reece Garg NEUT # 8.1 103/ul Critically high 1.4-6.5 [facility] Comment on above: Performed By: #### C BC #### [facility] [address] [place] [address] Dr. Reece Garg Neutrophils/100 WBC (Bld) 72.6 % Normal 43.0-75.0 [facility] Comment on above: Performed By: #### C BC #### [facility] [address] [place] [address] Dr. Reece Garg Platelet mean volume (Bld) [Entitic vol] 10.2 fL Normal 9.5-13.5 [facility] Comment on above: Performed By: #### C BC #### [facility] [address] [place] [address] Dr. Reece Garg PLT 163 103/ul Normal 150-450 [facility] Comment on above: Performed By: #### C BC #### [facility] [address] [place] [address] Dr. Reece Garg RBC 4.00 106/ul Critically low 4.20-5.40 [facility] Comment on above: Performed By: #### C BC #### [facility] [address] [place] [address] Dr. Reece Garg WBC 11.1 103/ul Critically high 4.0-11.[address] [facility] Comment on above: Performed By: #### C BC #### [facility] [address] [place] [address] Dr. Reece Garg BASO # 0.0 103/ul Normal 0.0-0.1 [facility] Comment on above: Performed By: #### C BC #### [facility] [address] [place] [address] Dr. Reece Garg Basophils/100 WBC (Bld) 0.3 % Normal 0.2-2.0 [facility] Comment on above: Performed By: #### C BC #### [facility] [address] [place] [address] Dr. Reece Garg EO # 0.1 103/ul Normal 0.0-0.7 [facility] Comment on above: Performed By: #### C BC #### [facility] [address] [place] [address] Dr. Reece Garg Eosinophils/100 WBC (Bld) 0.7 % Critically low 0.9-7.0 [facility] Comment on above: Performed By: #### C BC #### [facility] [address] [place] [address] Dr. Reece Garg Erythrocyte distribution width (RBC) [Ratio] 12.0 % Normal 11.0-15.0 [facility] Comment on above: Performed By: #### C BC #### [facility] [address] [place] [address] Dr. Reece Garg Hematocrit (Bld) [Volume fraction] 41.4 % Normal 36.0-48.0 [facility] Comment on above: Performed By: #### C BC #### [facility] [address] [place] [address] Dr. Reece Garg Hemoglobin (Bld) [Mass/Vol] 14.3 g/dL Normal 12.0-16.0 [facility] Comment on above: Performed By: #### C BC #### [facility] [address] [place] [address] Dr. Reece Garg IG # 0.05 10e3/ul Critically high 0.00-0.03 [facility] Comment on above: Performed By: #### C BC #### [facility] [address] [place] [address] Dr. Reece Garg IG % 0.3 % Normal 0.0-0.5 [facility] Comment on above: Performed By: #### C BC #### [facility] [address] [place] [address] Dr. Reece Garg LYMPH # 1.6 103/ul Normal 1.2-3.8 [facility] Comment on above: Performed By: #### C BC #### [facility] [address] [place] [address] Dr. Reece Garg Lymphocytes/100 WBC (Bld) 10.6 % Critically low 20.5-60.0 [facility] Comment on above: Performed By: #### C BC #### [facility] [address] [place] [address] Dr. Reece Garg MANUAL DIFF REQ NO Normal [facility] Comment on above: Performed By: #### C BC #### [facility] [address] [place] [address] Dr. Reece Garg MCH (RBC) [Entitic mass] 32.1 pg Normal 26.7-34.0 [facility] Comment on above: Performed By: #### C BC #### [facility] [address] [place] [address] Dr. Reece Garg MCHC (RBC) [Mass/Vol] 34.5 g/dL Normal 29.9-35.2 [facility] Comment on above: Performed By: #### C BC #### [facility] [address] [place] [address] Dr. Reece Garg MCV (RBC) [Entitic vol] 93.0 fL Normal 81.0-99.0 [facility] Comment on above: Performed By: #### C BC #### [facility] [address] [place] [address] Dr. Reece Garg MONO # 0.7 103/ul Normal 0.3-0.8 [facility] Comment on above: Performed By: #### C BC #### [facility] [address] [place] [address] Dr. Reece Garg Monocytes/100 WBC (Bld) 4.7 % Normal 1.7-12.0 [facility] Comment on above: Performed By: #### C BC #### [facility] [address] [place] [address] Dr. Reece Garg NEUT # 12.9 103/ul Critically high 1.4-6.[address] [facility] Comment on above: Performed By: #### C BC #### [facility] [address] [place] [address] Dr. Reece Garg Neutrophils/100 WBC (Bld) 83.4 % Critically high 43.0-75.0 [facility] Comment on above: Performed By: #### C BC #### [facility] [address] [place] [address] Dr. Reece Garg Platelet mean volume (Bld) [Entitic vol] 10.4 fL Normal 9.5-13.5 [facility] Comment on above: Performed By: #### C BC #### [facility] [address] [place] [address] Dr. Reece Garg PLT 194 103/ul Normal 150-450 [facility] Comment on above: Performed By: #### C BC #### [facility] [address] [place] [address] Dr. Reece Garg RBC 4.45 106/ul Normal 4.20-5.40 [facility] Comment on above: Performed By: #### C BC #### [facility] [address] [place] [address] Dr. Reece Garg WBC 15.4 103/ul Critically high 4.0-11.0 [facility] Comment on above: Performed By: #### C BC #### [facility] [address] [address] [address] ABD/PELV W CONon [...] LAVON ELIZALDE Date: 2023-04-03 01:36 Normal [facility] ER URINE PROFILEon 3 Bilirubin Ql (U) Negative Normal NEGATIVE [facility] Comment on above: Performed By: #### P REGU, ERUR #### [facility] [address] [place] [address] Dr. Reece Garg Clarity (U) CLEAR Normal CLEAR [facility] Comment on above: Performed By: #### P REGU, ERUR #### [facility] [address] [place] [address] Dr. Reece Garg Color (U) LT. YELLOW Normal YELLOW [facility] Comment on above: Performed By: #### P REGU, ERUR #### [facility] [address] [place] [address] Dr. Reece KHAN A micrscopic examination will be performed if indicated. Normal [facility] Comment on above: Performed By: #### P REGU, ERUR #### [facility] [address] [place] [address] Dr. Reece Garg Glucose Ql (U) Negative Normal NEGATIVE [facility] Comment on above: Performed By: #### P REGU, ERUR #### [facility] [address] [place] [address] Dr. Reece Garg Hemoglobin Ql (U) Negative Normal NEGATIVE [facility] Comment on above: Performed By: #### P REGU, ERUR #### [facility] [address] [place] [address] Dr. Reece Garg Ketones Ql (U) 15 mg/dl Abnormal NEGATIVE [facility] Comment on above: Performed By: #### P REGU, ERUR #### [facility] [address] [place] [address] Dr. Reece Garg LEUKOCYTES Negative Normal NEGATIVE [facility] Comment on above: Performed By: #### P REGU, ERUR #### [facility] [address] [place] [address] Dr. Reece Garg Nitrite Ql (U) Negative Normal NEGATIVE [facility] Comment on above: Performed By: #### P REGU, ERUR #### [facility] [address] [place] [address] Dr. Reece Garg pH (U) 5.5 [pH] Normal 5-9 [facility] Comment on above: Performed By: #### P REGU, ERUR #### [facility] [address] [address] [address] Reece Garg SPEC GRAVITY <=1.005 Abnormal 1.005-<=1.025 [facility] Comment on above: Performed By: #### P REGU, ERUR #### [facility] [address] [address] [address] Reece Garg UA PROTEIN Negative Normal NEGATIVE/ TRACE [facility] Comment on above: Performed By: #### P REGU, ERUR #### [facility] [address] [address] [address] Reece Garg UR MICRO IND NOT INDICATED Normal [facility] Comment on above: Performed By: #### P REGU, ERUR #### [facility] [address] [address] [address] Reece Garg Urobilinogen Qn (U) 0.2 {Dariel'U}/dL Normal 0.2 - 1. 0 [facility] Comment on above: Performed By: #### P REGU, ERUR #### [facility] [address] [address] [address] Reece Garg LIPASEon 04-03-2023 Lipase [Catalytic activity/Vol] 62.0 U/L Critically low 73.0-393.0 [facility] Comment on above: Performed By: #### L IPA, ANDERSON ####[facility] [address] [address]Dr. Reece Garg MONOon 04-03-2023 Monocytes (Bld) [#/Vol] Negative Normal NEGATIVE [facility] Comment on above: Performed By: #### M JOSE DANIEL #### [facility] [address] [address] [address] Reece Garg URon 04-03-2023 , QUAL Negative Normal NEGATIVE [facility] Comment on above: Performed By: #### P REGU, ERUR #### [facility] [address] [address] [address] Reece Garg PROF 14(COMP METB)on 05-20-2 023 Albumin [Mass/Vol] 3.3 g/dL Critically low 3.4-5.0 [facility] Comment on above: Performed By: #### C MP #### [facility] [address] [place] [address] Dr. Reece Garg Albumin/Globulin [Mass ratio] 1.0 {ratio} Normal [facility] Comment on above: Performed By: #### C MP #### [facility] [address] [address] [address] Reece Garg ALP [Catalytic activity/Vol] 38 U/L Critically low 46-116 [facility] Comment on above: Performed By: #### C MP #### [facility] [address] [place] [address] Dr. Reece Garg ALT [Catalytic activity/Vol] 16 U/L Normal 14-59 [facility] Comment on above: Performed By: #### C MP #### [facility] [address] [place] [address] Dr. Reece Garg Anion gap [Moles/Vol] 10.7 mmol/L Normal [facility] Comment on above: Performed By: #### C MP #### [facility] [address] [place] [address] Dr. Reece Garg AST [Catalytic activity/Vol] 10 U/L Critically low 15-37 [facility] Comment on above: Performed By: #### C MP #### [facility] [address] [place] [address] Dr. Reece Garg Bilirubin [Mass/Vol] 1.0 mg/dL Normal 0.2-1.0 [facility] Comment on above: Performed By: #### C MP #### [facility] [address] [place] [address] Dr. Reece Garg Calcium [Mass/Vol] 8.2 mg/dL Critically low 8.5-10.1 [facility] Comment on above: Performed By: #### C MP #### [facility] [address] [place] [address] Dr. Reece Garg Chloride [Moles/Vol] 106 mmol/L Normal 98-107 [facility] Comment on above: Performed By: #### C MP #### [facility] [address] [address] [address] Reece Garg CO2 [Moles/Vol] 27.0 mmol/L Normal 21.0-32.0 [facility] Comment on above: Performed By: #### C MP #### [facility] [address] [address] [address] Reece Garg Creatinine [Mass/Vol] 0.77 mg/dL Normal 0.55-1.02 [facility] Comment on above: Performed By: #### C MP #### [facility] [address] [address] [address] Reece Garg EGFR-AF CITIZEN [place] >60 Normal >=60 [facility] Comment on above: Performed By: #### C MP #### [facility] [address] [address] [address] Reece Garg EGFR-NON AF CITIZEN OF [place] >60 Normal >=60 [facility] Comment on above: Performed By: #### C MP #### [facility] [address] [address] [address] Reece Garg Globulin (S) [Mass/Vol] 3.3 g/dL Normal [facility] Comment on above: Performed By: #### C MP #### [facility] [address] [address] [address] Reece Garg Glucose [Mass/Vol] 102 mg/dL Normal 74-106 [facility] Comment on above: Performed By: #### C MP #### [facility] [address] [address] [address] Reece Garg Potassium [Moles/Vol] 3.7 mmol/L Normal 3.5-5.1 [facility] Comment on above: Performed By: #### C MP #### [facility] [address] [address] [address] Reece Garg Protein [Mass/Vol] 6.6 g/dL Normal 6.4-8.2 [facility] Comment on above: Performed By: #### C MP #### [facility] [address] [place] [address] Dr. Reece Garg Sodium [Moles/Vol] 140 mmol/L Normal 136-145 [facility] Comment on above: Performed By: #### C MP #### [facility] [address] [place] [address] Dr. Reece Garg Urea nitrogen [Mass/Vol] 8.0 mg/dL Normal 7.0-18.0 [facility] Comment on above: Performed By: #### C MP #### [facility] [address] [place] [address] Dr. Reece Garg Urea nitrogen/Creatinine [Mass ratio] 10.4 mg/mg Normal [facility] Comment on above: Performed By: #### C MP #### [facility] [address] [place] [address] Dr. Reece Garg PROTIMEon 04-03-2023 INR Coag (PPP) [Relative time] 1.06 {INR} Normal [facility] Comment on above: Performed By: #### P TT, PT #### [facility] [address] [place] [address] Dr. Reece Garg INR GUIDELINES SEE BELOW Normal [facility] Comment on above: Result Comment: JJ RED INR: 2.0 - 3.0 CONDITIONS NOT LISTED BELOW 2.5 - 3.5 FOR PROSTHETIC HEART VALVE REPLACEMENT 2.5 - 3.5 RECURRENT THROMBOSIS Performed By: #### P TT, PT #### [facility] [address] [place] [address] Dr. Reece Garg PT Coag (PPP) [Time] 11.2 s Normal 9.0-11.6 [facility] Comment on above: Performed By: #### P TT, PT #### [facility] [address] [place] [address] Dr. Reece Garg PTTon 04-03-2023 aPTT Coag (Bld) [Time] 28.1 s Normal 22.3-36.2 [facility] Comment on above: Performed By: #### P TT, PT #### [facility] [address] [place] [address] Dr. Reece Garg PAP ACOG PANEL 2: 30 to 65on 07-28-2022 . . Normal [facility] Comment on above: Result Comment: Perf ormed at: WB Performed By: #### [id number] ####[facility] [address] [address]Dr. Reece Garg Age Gdln ACOG Testing 30-65 Normal [facility] Comment on above: Performed By: #### 4 [id number] ####[facility] [address] [address]Dr. Reece Garg DIAGNOSIS: Comment Normal [facility] Comment on above: Result Comment: NEGA TIVE FOR INTRAEPITHELIAL LESION OR MALIGNANCY. Performed at: WB Performed By: #### 4 [id number] ####[facility] [address] [place], [place] [address]Dr. Reece Garg HPV Aptima Negative Normal Negative [facility] Comment on above: Result Comment: This nucleic acid amplification test detects fourteen high-risk HPV types (16,18,31,33,35,39,45,51,52,56,58,59,66,68) without differentiation. Performed at: =G Performed By: #### 4 [id number] ####[facility] [address] [place], [place] [address]Dr. Reece Garg Methodology: Comment Normal [facility] Comment on above: Result Comment: This liquid based ThinPrep(R) pap test was screened with the use of an image guided system. Performed at: WB Performed By: #### 4 [id number] ####[facility] [address] [address]Dr. Reece Garg Note: Comment Normal [facility] Comment on above: Result Comment: The Pap smear is a screening test designed to aid in the detection of premalignant and malignant conditions of the uterine cervix. It is not a diagnostic procedure and should not be used as the sole means of detecting cervical cancer. Both false-positive and false-negative reports do occur. . Performed at: WB Performed By: #### 4 [id number] ####[facility] [address] [place], [place] [address]Dr. Reece Garg Performed by: Comment Normal [facility] Comment on above: Result Comment: Alexandra Cortez, Agricultural Education Teacher (ASCP) Performed at: WB Performed By: #### 4 [id number] ####[facility] [address] [address]Dr. Reece Garg Specimen adequacy: Comment Normal [facility] Comment on above: Result Comment: Sati sfactory for evaluation. No endocervical component is identified. Performed at: WB Performed By: #### 4 [id number] ####[facility] [address] [place], [place] [address]QxDr. Reece Garg VAGINITIS/VAGINOSIS DNA PROB Erwin 07-24-2022 Mala species Negative Normal Negative [facility] [place] Comment on above: Performed By: #### V AGINT #### [facility] [address] [address] [address] Reece Garg Gardnerella vaginalis Positive Abnormal Negative [facility] Comment on above: Performed By: #### V AGINT #### [facility] [address] [address] [address] Reece Garg Trichomonas vaginalis Negative Normal Negative [facility] Comment on above: Performed By: #### V AGINT #### [facility] [address] [address] [address] Reece Garg Consenton 06-03-2020 Consent [id number] 1.00CD:127 Normal [facility] Encounters Encounter Date Encounter Type Care Provider Facility Start: 07-31-2024 End: 07-31-2024 ambulatory ANGELIA TREVIÑO Not Available Start: 07-18-2024 End: 07-18-2024 ambulatory THERESA DAVIS Not Available Start: 07-10-2024 End: 07-10-2024 ambulatory ANDERSON FRIED Not Available Start: 06-29-2024 End: 06-29-2024 ambulatory THERESA DAVIS Not Available Start: 05-25-2024 End: 05-25-2024 ambulatory [facility] Start: 04-27-2024 ambulatory [facility] Start: 04-04-2024 End: 04-04-2024 ambulatory RAHULELLIOTGURWINDER PEREZ Not Available Start: 02-16-2024 End: 02-16-2024 ambulatory THERESA Juan DAVIS Not Available Start: 02-10-2024 End: 02-10-2024 Office outpatient visit 15 minutes Jani Bridges MD Work Phone: [facility] Comment on above: Acute deep vein thro mbosis (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); May-Thurner syndrome Start: 02-10-2024 ambulatory [facility] Start: 01-31-2024 End: 01-31-2024 ambulatory ANGELIA TREVIÑO Not Available Start: 01-26-2024 End: 01-26-2024 [facility]: 01-24-2024 End: 01-26-2024 Evaluation and management of inpatient [facility] Start: 01-24-2024 End: 01-24-2024 ambulatory DL BUCK [facility] Start: 01-24-2024 ambulatory [facility] Start: 01-23-2024 End: 01-26-2024 Evaluation and management of inpatient STEPHEN [facility] Start: 01-23-2024 End: 01-25-2024 Evaluation and management of inpatient [facility] Start: 01-20-2024 End: 01-20-2024 ambulatory ANDERSON FRIED Not Available Start: 01-07-2024 End: 01-07-2024 ambulatory Angelia Hudson Facility:[facility] Start: 12-14-2023 End: 12-14-2023 ambulatory ANGELIA HUDSON Not Available Start: 11-04-2023 End: 11-04-2023 ambulatory ANGELIA HUDSON Not Available Start: 04-03-2023 End: 04-03-[address] USMAN ALVAREZ . Facility: Start: 09-11-2022 Encounter for gynecological examination (general) (routine) without abnormal findings DR EARLENE MCDONOUGH . [facility] Start: 07-22-2022 End: 07-22-[address] [...] Adult BMI Screening Adult BMI Screen ing [facility] Start: 01-23-2025 Tobacco Screening Tobacco Screening [facility] Start: 01-22-2025 Depression Screening Depression Scre ening [facility] Start: 02-25-2024 End: 02-10-2025 US.doppler Thoracic and Abdominal Aorta and Inferior Vena Cava and Illiac vessels Vas IVC/iliac duplex complete Vascular Ultrasound Routine Acute deep vein thrombosis (DVT) of iliac vein of left lower extremity (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 Expected: 02/25/2024 (Approximate), Expires: 02/10/2025 [employer] Work Phone: Comment on above: Expected: 02/25/2024 (Approximate), Expires: 02/10/2025 Start: 07-16-2023 Influenza vaccination [id number] Start: 02-14-2019 DTaP,Tdap and Td Vaccines (6 - Tdap) DTaP,Tdap and Td Vaccines (6 - Tdap) [facility] Start: 2013 Screening for malign ant neoplasm of cervix Pap Smear [email or web address] Start: 2010 Adult BMI Follow Up Plan Adult BMI Follow Up Plan [facility] Payers Date Payer Category Payer Self-pay 2022 Unknown [employer] OUT OF STATE PPO/TRUST [id number] 2022-Present [phone] [address] [place] [address] [id number] 1992 Unknown [id number] 2.16.840.1.793392.3.579.2.593 1992 Unknown [id number] 2.16.840.1.308698.3.579.2.593 1992 Unknown [id number] 2.16840.1.890214.3.579.2.1285 1992 Unknown [id number] 2.16840.1.851804.3.579.2.1285 1992 Unknown [id number] 2.840.1.390306.3.579.2.1285 1992 Unknown [id number] 2.840.1.270502.3.579.2.1285 1992 Unknown [id number] 2.840.1.297929.3.579.2.1285 1992 Unknown [id number] 2.840.1.856353.3.579.2.1285 1992 Unknown [id number] 2.16840.1.885581.3.579.2.1285 1992 Unknown [id number] 2.840.1.885209.3.579.2.1285 1992 Unknown [id number] 2.16840.1.679408.3.579.2.1285 1992 Unknown [id number] 2.16840.1.695935.3.579.2.1285 1992 Unknown [id number] 2.16840.1.733585.3.579.2.1258 1992 Unknown [id number] 2.16.840.1.468556.3.579.2.9 1992 Unknown [id number] 2.16840.1.677475.3.579.2.1259 1992 Unknown [id number] 2.16.840.1.732233.3.579.2.9 1992 Unknown [id number] 2.16.840.1.684315.3.579.2.9 1992 Unknown [id number] 2.16.840.1.632434.3.579.2.1258 1992 Unknown [id number] 2.16.840.1.821969.3.579.2.1258 1992 Unknown [id number] 2.16.840.1.192192.3.579.2.9 1992 Unknown [id number] 2.16.840.1.830164.3.579.2.9 1992 Unknown [id number] 2.16.840.1.434424.3.579.2.1259 1959 Medicaid [id number] 1959 Unknown [id number] 1959 Unknown [id number] 1959 Unknown [id number] Social History Date Type Detail Facility Start: 01-23-2024 Tobacco smoking stat [facility] Ex-smoker [facility] History of tobacco use Current smoker [facility] [place] [facility] History of tobacco use Cigarette Smoker P [facility] Start: 01-23-2024 Tobacco use and exposure Smokeless tobacco non-user [facility] Start: 01-24-2024 Alcohol intake Ex-drinker (finding) [facility] Start: 01-23-2024 End: 01-24-2024 History of Social function [facility] Start: 01-23-2024 End: 01-24-2024 [facility] [employer] [facility] Has the [facility] threatened to shut off services in your home in past 12Mo No [facility] How often to you hav e a drink containing alcohol? Never [facility] How many standard drinks containing alcohol do you have on a typical day? Patient does not drink [facility] Start: 1992 Sex Assigned At Not on file P [facility] Medical Equipment Procedure Code Equipment Code Equipment Origin al Text Equipment Identifier Dates Stent Vsc 18mm X 100mm Venous Nitinol Slf Expanding Abre - [id number] Start: 01-24-2024 History of Present illness Narrative 02-10-2024 Jani Bridges MD - 02/10/2024 2:40 PM EDT Note Date & Type Note Facility 02-10-2024 History of Presen t illness Narrative Images from the original note were not included. [facility] [address] [facility] [address] Subjective: Patient ID: Kimberly Silverman is a [...] Problem List Diagnosis DVT (deep venous thrombosis) ([facility]) May-Thurner syndrome Current Outpatient Medications: acetaminophen (TYLENOL [...] lower extremity (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 Plan Plan: Cristóbal MITCHELL US of the left iliac veins F/U in 3 months Jani Bridges MD, [place] documented in this encounter [employer] [facility] Evaluation note Note Date & Type [...] Vas IVC/iliac duplex complete Jani Bridges MD [address], [address] [address] Referral ID Status Reason Start Date Expiration Date V isits Requested Visits Authorized [id number] Pending Review 02/11/2024 02/10/2025 1 1 Additional Source Comments INFORMATION SOURCE (unrecogn ized section and content) DATE CREATED AUTHOR 06/08/2020 [facility] DATE CREATED AUTHOR AUTHOR'S ORGANIZ ATION 04/23/2023 [facility] DATE CREATED AUTHOR AUTHOR'S ORGANIZ ATION 01/16/2024 [facility] DATE CREATED AUTHOR AUTHOR'S ORGANIZ ATION 01/27/2024 [facility] DATE CREATED AUTHOR AUTHOR'S ORGANIZ ATION 05/31/2024 [facility] Ambulatory [facility] DATE CREATED AUTHOR AUTHOR'S ORGANIZ ATION 08/01/2024 [facility] EPIC Reason for Visit (unrecogniz ed section and content) Reason Comments Follow-up Thrombectomy lle. DV T and iliac stenting. Per patient she notes some discomfort to lle with mi Care Teams (unrecognized sec tion and content) Nurse Transition Relationship Specialty Start Date End Date Usman Alvarez MD [address] [place] [address] PCP - General 02/09/24 FOR RECORDS PERTAINING [...] BE BASED ON THE PRIMARY CLINICAL RECORDS. [facility] [employer] [facility]. provides no warranty or guarantee of the accuracy or completeness of information in this document.
== END 2024-08-04 08:25 | disposition home or self-care (01) ==
LOC: CT 08:24
PROVIDERS: PCP Family Medicine; Visit Provider Family Medicine
DX: M25.552 Pain in left hip (principal)
CPT/HCPCS: 73700

== ENCOUNTER 2024-08-22 07:57 | Outpatient (RCR) | payer BC, SELFPAY | END 2024-09-14 23:59 | disposition home or self-care (01) | LOC: HEMC 07:57 | PROVIDERS: PCP Family Medicine; Visit Provider Internal Medicine Hematology & Oncology | DX: I82.402 Acute embolism and thrombosis of unspecified deep veins of left lower extremity (principal) | CPT/HCPCS: G0463 ==

== ENCOUNTER 2024-09-01 11:42 | Outpatient (OUT) | payer BC, SELFPAY ==
--- OUTSIDE RECORDS SUMMARY | 2024-09-01 11:46 | XMS_ITS | CCD ---
Author Organization [facility] Care Team Providers Care Instructor Adjunct Pharmacy Technician Name Role Phone RAIN ., DR MARY Attending Unavailable HOY ., DR MARY Admitting Unavailable HOY ., DR MARY Primary Care Unavailable HOY ., DR MARY Consulting Unavailable SARAI WILKINS Consulting Unavailable LAVON ELIZALDE Consulting Unavailable SISTER, CUCA Consulting Unavailable ARTURO II, LUL Consulting Unavailable TAMLYN ., DL Consulting Unavailable KARASIK ., DR HENAO Admitting Unavailabl e KARASIK ., DR HENAO Consulting Unavailabl e KARASIK ., DR HENAO Attending Unavailabl e HOY ., DR MARY Primary Care Unavailable Angelia Treviño Attending Unavailable Angelia Treviño Admitting Unavailable ADDISON, MOHAMED F Admitting Unavailable ADDISON, MOHAMED F Attending Unavailable FLORA LAL Referring Unavailable DL BUCK Referring Unavailable STEPHEN STOKES Referring Unavailable PAUL CHACON Attending Unavailable ADDISON, MOHAMED F Attending Unavailable ADDISON, MOHAMED F Referring Unavailable Usman Alvarez MD Primary Care Provider [phone] ADDISON, MOHAMED F Attending Unavailable HOY, USMAN M Primary Care Unavailable ADDISON, MOHAMED F Attending Unavailable HOY, USMAN M Referring Unavailable HOY, USMAN M Primary Care Unavailable ADDISON, MOHAMED F Attending Unavailable HOY, USMAN M Referring Unavailable HOY, USMAN M Primary Care Unavailable ANGELIA TREVIÑO Attending Unavailable ANDERSON FRIED Attending Unavailable ANGELIA TREVIÑO Attending Unavailable THERESA DAVIS Attending Unavailable ADELFO PEREZ Attending Unavailable HOY, USMAN M Referring Unavailable THERESA DAVIS Attending Unavailable ANDERSON FRIED Attending Unavailable THERESA DAVIS Attending Unavailable ANGELIA TREVIÑO Attending Unavailable ANGELIA TREVIÑO Attending Unavailable Usman Alvarez Primary Care Physician PRETTY KAUFFMAN Attending Unavailable Allergies Allergy Classification Reported Allergen(s) Allergy Type Date of Onset Reaction(s) Facility (1 source) No Known Medication Allergies; Translations: [No Known Medication Allergies] Propensity to adverse reactions (disorder) [facility] Repository Medications Current Medications Medication Drug Class(es) Dates Sig (Normalized) Sig (Original) acetaminophen 500 mg oral tablet (1 source) Start: 01-25-2024 take 2 tablets by mouth every six hours acetaminophen (TYLENOL EXTRA STRENGTH) 500 mg tablet Take 2 tablets (1,000 mg total) by mouth every 6 (six) hours. 30 tablet 0 01/25/2024 Active apixaban 5 mg oral tablet (3 sources) Factor Xa Inhibitor Start: 08-08-2024 Eliquis 5 mg oral tablet 5 mg = 1 tab(s) Start Date: 08/08/24 Status: Ordered Start: 02-11-2024 take 1 tablet by amanda th in the morning, then take 1 tablet [...] twice daily 74 tablet 0 01/25/2024 Active Aspirin (3 sources) Platelet Aggregation Inhibitor, Nonsteroidal Anti-inflammatory Drug Start: 08-08-2024 [facility] 81 MG CHEWABLE TAB [facility] ASP[facility] 81 MG CHEWABLE TAB Start Date: 08/08/24 Status: Ordered Start: 02-11-2024 aspirin 81 mg chewable tablet [...] days. 30 tablet 0 01/25/2024 02/24/2024 Active diazePAM 5 mg oral tablet (1 source) Benzodiazepine Start: 08-08-2024 Valium 5 mg Tab See Instructions, 1 tab po 30-60 mins prior to cystoscopy, # 1 tab(s), Refills(s) 0, Pharmacy: [facility]/pharmacy #[id number], 158, cm, 08/08/24 11:39:00 EDT, Height/Length Dosing, 60, kg, 08/08/24 11:39:00 EDT, Weight Dosing Start Date: 08/08/24 Status: Ordered Doxycycline (1 source) Tetracycline-class Drug Start: 08-08-2024 doxycycline 100 mg Start Date: 08/08/24 Status: Ordered Ethinyl Estradiol / Levonorgestrel (1 source) Progestin, Estrogen, Progestin-containin g Intrauterine Device take 1 tablet by mouth once in the morning levonorgestreL-et hinyl estrad (NORDETTE) 0.15-0.03 mg per tablet Take 1 tablet by mouth in the morning. 0 Active Diflucan (1 source) Azole Antifungal Start: 08-08-2024 Diflucan Start Date: 08/08/24 Status: Ordered gabapentin 300 mg oral capsule (1 source) Anti-epileptic Agent Start: 08-08-2024 gabapentin 300 mg Cap 300 mg = 1 cap(s) Start Date: 08/08/24 Status: Ordered lactobacillus acidophilus [id number] unt / pectin 100 mg oral tablet (1 source) take 1 tablet by mouth once daily at breakfast acidophilus-pecti n, citrus 25 million cell -100 mg tablet Take 1 tablet by mouth daily with breakfast. 0 Active Flagyl (1 source) Nitroimidazole Antimicrobial Start: 08-08-2024 Flagyl Oral Start Date: 08/08/24 Status: Ordered Nature's Bounty Probiotic (1 source) Start: 08-08-2024 Nature's Bounty Probiotic Oral, Daily Start Date: 08/08/24 Status: Ordered ondansetron 4 mg disintegrating oral tablet (1 source) Serotonin-3 Receptor Antagonist Start: 08-08-2024 ondansetron 4 mg Dis Tab 4 mg = 1 tab(s) Start Date: 08/08/24 Status: Ordered oxyCODONE hydrochloride 5 mg oral tablet (1 [...] Date Documented Da te Episodic/Chronic Abdominal pain (5 sources) Unspecified abdominal pain; Translations: [Pelvic and perineal pain] Onset: 04-03-2023 Episodic Anxiety disorders (2 sources) Anxiety disorder, unspecified; Translations: [Anxiety] Onset: 04-08-2023 08-08-2024 Chronic Appendicitis and other appendiceal conditions (1 source) Unspecified acute appendicitis; Translations: [UNSPECIFIED ACUTE APPENDICITIS] Onset: 04-08-2023 Episodic Coagulation and hemorrhagic disorders (1 source) 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 Diseases of white blood cells (1 source) Leukocytosis 08-08-2024 Chronic Endometriosis (1 source) Endometriosis (clinical) 08-08-2024 Chronic Genitourinary symptoms and ill-defined conditions (2 sources) Bladder pain; Translations: [Chronic bladder pain] Onset: 08-08-2024 Chronic Headache; including migraine (1 source) Migraine 08-08-2024 Chronic Inflammatory diseases of female pelvic organs (2 sources) Acute vaginitis; Translations: [Acute vaginitis] Onset: 08-08-2024 Episodic Other diseases of veins and lymphatics (2 sources) Iliac vein compression syndrome; Translations: [Compression of vein] Onset: 02-11-2024 02-11-2024 Episodic Peripheral and visceral atherosclerosis (1 source) Unspecified atherosclerosis of [place] arteries of extremities, other extremity; Translations: [Unspecified atherosclerosis of [place] arteries of extremities, other extremity] Onset: 04-27-2024 Chronic Phlebitis; thrombophlebitis and thromboembolism (6 sources) Acute embolism and thrombosis of left [...] Translations: [Compression of vein] Onset: 02-11-2024 Episodic Residual codes; unclassified (1 source) Pain, unspecified; Translations: [Pain, unspecified] Onset: 01-24-2024 Episodic Results Test Name Value Interpretation Reference Range Facility BASIC METABOLIC PANLon 01-24 Anion gap [Moles/Vol] 7 mmol/L Normal 5-15 [facility] Comment on above: Performed By: #### C BRENNON PINR, 17953-7, BMP #### [facility] ([id number]) [address], [address] [place] [address] Calcium [Mass/Vol] 8.7 mg/dL Normal 8.5-10.5 [facility] Comment on above: Performed By: #### C BRENNON PINR, 22324-8, BMP #### [facility] ([id number]) [address], [address] [place] [address] Chloride [Moles/Vol] 106 mmol/L Normal 98-109 [facility] Comment on above: Performed By: #### C BRENNON, PINR, 42027-1, BMP #### [facility] ([id number]) [address], [address] [place] [address] CO2 [Moles/Vol] 23 mmol/L Normal 22-32 [facility] Comment on above: Performed By: #### C BCA, PINR, 69787-6, BMP #### [facility] ([id number]) [address], [facility] [address] [place] [address] Creatinine [Mass/Vol] 0.57 mg/dL Normal 0.40-1.00 [facility] Comment on above: Result Comment: METH OD TRACEABLE TO IDMS STANDARD Performed By: #### C BRENNON, PINR, 45885-4, BMP #### [facility] ([id number]) [address], [facility] [address] [place] [address] eGFR (CKD-EPI) NON-RACE DEPENDENT >90 Normal >59 [facility] Comment on above: Result Comment: Reported eGFR is based on the CKD-EPI 2020 equation that does not use a race coefficient. Performed By: #### C BRENNON PINR, 38631-8, BMP #### [facility] ([id number]) [address] [address] [place] [address] Glucose [Mass/Vol] 139 mg/dL High 65-99 [facility] Comment on above: Performed By: #### C BRENNON PINR, 00794-1, BMP #### [facility] ([id number]) [address] [address] [address] [place] [address] Potassium [Moles/Vol] 4.3 mmol/L Normal 3.5-5.0 [facility] Comment on above: Performed By: #### C BCA, PINR, 98364-9, BMP #### [facility] ([id number]) [address] [address] [place] [address] Sodium [Moles/Vol] 136 mmol/L Normal 134-146 [facility] Comment on above: Performed By: #### C BRENNON PINR, 55573-9, BMP #### [facility] ([id number]) [address], [address] [place] [address] Urea nitrogen [Mass/Vol] 6 mg/dL Normal 5-23 [facility] Comment on above: Performed By: #### C BRENNON PINR, 69017-8, BMP #### [facility] ([id number]) [address], [address] [place] [address] CBC AND AUTO DIFFon 01-25-20 24 ABSOLUTE BASOPHIL 0.0 X10E9/L Normal 0.0-0.2 [facility] Comment on above: Performed By: #### C BRENNON PINR, 33694-2, BMP #### [facility] ([id number]) [address], [address] [place] [address] ABSOLUTE NEUTROPHIL 2.9 X10E9/L Normal 1.5-6.6 [facility] Comment on above: Performed By: #### C BRENNON PINR, 17286-0, BMP #### [facility] ([id number]) [address], [address] [place] [address] Basophils/100 WBC (Bld) 0.1 % Normal [facility] Comment on above: Performed By: #### Anastasiya WILLETT PINR, 68052-5, BMP #### [facility] ([id number]) [address], [address] [place] [address] Eosinophils (Bld) [#/Vol] 0.0 10*3/uL Normal 0.0-0.4 [facility] Comment on above: Performed By: #### C BRENNON PINR, 47241-7, BMP #### [facility] ([id number]) [address], [address] [place] [address] Eosinophils/100 WBC (Bld) 0.0 % Normal [facility] Comment on above: Performed By: #### C BRENNON PINSlim, 50982-5, BMP #### [facility] ([id number]) [address], [address] [place] [address] Erythrocyte distribution width (RBC) [Ratio] 11.8 % Normal 11.5-15.0 [facility] Comment on above: Performed By: #### C BRENNON PINSlim, 30492-5, BMP #### [facility] ([id number]) [address], [facility] [address] [place] [address] Hematocrit (Bld) [Volume fraction] 35.5 % Normal 35-47 [facility] Comment on above: Performed By: #### C BRENNON PINR, 49364-8, BMP #### [facility] ([id number]) [address], [address] [place] [address] Hemoglobin (Bld) [Mass/Vol] 12.3 g/dL Normal 11.7-15.5 [facility] Comment on above: Performed By: #### C BRENNON PINR, 39506-0, BMP #### [facility] ([id number]) [address], [facility] [address] [place] [address] Lymphocytes (Bld) [#/Vol] 0.4 10*3/uL Low 1.0-3.5 [facility] Comment on above: Performed By: #### C BRENNON PINR, 65993-2, BMP #### [facility] ([id number]) [address], [address] [place] [address] Lymphocytes/100 WBC (Bld) 13.1 % Normal [facility] Comment on above: Performed By: #### Anastasiya WILLETT, PINR, 63344-7, BMP #### [facility] ([id number]) [address], [address] [place] [address] MCH (RBC) [Entitic mass] 32.3 pg Normal 27-34 [facility] Comment on above: Performed By: #### C SADAF WILLETT, 40285-5, BMP #### [facility] ([id number]) [address], [address] [place] [address] MCHC (RBC) [Mass/Vol] 34.6 g/dL Normal 32-36 [facility] Comment on above: Performed By: #### C SADAF WILLETT, 93974-8, BMP #### [facility] ([id number]) [address], [address] [place] [address] MCV (RBC) [Entitic vol] 94 fL Normal 80-100 [facility] Comment on above: Performed By: #### SADAF Langford BCA, 05091-9, BMP #### [facility] ([id number]) [address], [address] [place] [address] Monocytes (Bld) [#/Vol] 0.1 10*3/uL Normal 0-0.9 [facility] Comment on above: Performed By: #### SADAF Langford BCA, 19206-2, BMP #### [facility] ([id number]) [address], [address] [place] [address] Monocytes/100 WBC (Bld) 2.4 % Normal [facility] Comment on above: Performed By: #### SADAF Langford BCA, 30748-5, BMP #### [facility] ([id number]) [address], [address] [place] [address] Neutrophils/100 WBC (Bld) 84.4 % Normal [facility] Comment on above: Performed By: #### SADAF Langford BCA, 37767-6, BMP #### [facility] ([id number]) [address], [address] [place] [address] Platelet mean volume (Bld) [Entitic vol] 9.1 fL Normal 7-12 [facility] Comment on above: Performed By: #### C SADAF WILLETT, 78948-6, BMP #### [facility] ([id number]) [address], [address] [place] [address] Platelets (Bld) [#/Vol] 142 10*3/uL Low 150-450 [facility] Comment on above: Performed By: #### SADAF Langford BCA, 05934-3, BMP #### [facility] ([id number]) [address], [address] [place] [address] RBC COUNT 3.79 X10E12/L Low 3.80-5.20 [facility] Comment on above: Performed By: #### C SADAF WILLETT, 29180-4, BMP #### [facility] ([id number]) [address], [address] [place] [address] WBC (Bld) [#/Vol] 3.4 10*3/uL Low 4.0-11.0 [facility] Comment on above: Performed By: #### SADAF Langford BCA, 94117-4, BMP #### [facility] ([id number]) [address], [address] [place] [address] Heparin unfractionated Chrom ogenic method Qn (PPP)on 01-25-2024 ANTI XA UFH 0.68 IU/mL Normal 0.30-0.70 [facility] Comment on above: Result Comment: Opti mal time for testing is 6 hrs post dosage This test is specific for monitoring patients on UFH, and is not recommended for use with other Anti-Xa medications. Performed By: #### SADAF Langford BCA, 04367-2, BMP #### [facility] ([id number]) [address], [address] [place] [address] ANTI CARDIOLIPIN AB IGG IGA IGMon 01-24-2024 MELBA IgA <2.0 Normal 0-19.9 [facility] Comment on above: Performed By: #### A CA, B2G #### [facility] ([id number]) [address], [address] [place] [address] MELBA IgG <1.6 Normal 0-19.9 [facility] Comment on above: Performed By: #### A Chucky HEATONG #### [facility] ([id number]) [address], [address] [place] [address] MELBA IgM <1.5 Normal 0-19.9 [facility] Comment on above: Performed By: #### A Doreen HEATON #### [facility] ([id number]) [address], [address] [place] [address] BASIC METABOLIC PANLon 01-23 Anion gap [Moles/Vol] 8 mmol/L Normal 5-15 [facility] Comment on above: Performed By: #### 3 274-8, CBCA, BMP #### [facility] ([id number]) [address], [address] [place] [address] Calcium [Mass/Vol] 8.0 mg/dL Low 8.5-10.5 [facility] Comment on above: Performed By: #### 3 274-8, CBCA, BMP #### [facility] ([id number]) [address], [address] [place] [address] Chloride [Moles/Vol] 106 mmol/L Normal 98-109 [facility] Comment on above: Performed By: #### 3 274-8, CBCA, BMP #### [facility] ([id number]) [address], [address] [place] [address] CO2 [Moles/Vol] 22 mmol/L Normal 22-32 [facility] Comment on above: Performed By: #### 3 274-8, CBCA, BMP #### [facility] ([id number]) [address], [address] [place] [address] Creatinine [Mass/Vol] 0.53 mg/dL Normal 0.40-1.00 [facility] Comment on above: Result Comment: METH OD TRACEABLE TO IDMS STANDARD Performed By: #### 3 274-8, CBCA, BMP #### [facility] ([id number]) [address], [address] [place] [address] eGFR (CKD-EPI) NON-RACE DEPENDENT >90 Normal >59 [facility] Comment on above: Result Comment: Reported eGFR is based on the CKD-EPI 2020 equation that does not use a race coefficient. Performed By: #### 3 274-8, CBCA, BMP #### [facility] ([id number]) [address], [facility] [address] [place] [address] Glucose [Mass/Vol] 76 mg/dL Normal 65-99 [facility] Comment on above: Performed By: #### 3 274-8, CBCA, BMP #### [facility] ([id number]) [address], [address] [place] [address] Potassium [Moles/Vol] 3.8 mmol/L Normal 3.5-5.0 [facility] Comment on above: Performed By: #### 3 274-8, CBCA, BMP #### [facility] ([id number]) [address], [facility] [address] [place] [address] Sodium [Moles/Vol] 136 mmol/L Normal 134-146 [facility] Comment on above: Performed By: #### 3 274-8, CBCA, BMP #### [facility] ([id number]) [address], [facility] [address] [place] [address] Urea nitrogen [Mass/Vol] 10 mg/dL Normal 5-23 [facility] Comment on above: Performed By: #### 3 274-8, CBCA, BMP #### [facility] ([id number]) [address], [facility] [address] [place] [address] BETA-2 GP1 AB PANELon 2023 BETA-2 GP1 IgA <2.0 Normal 0.0-19.9 [facility] Comment on above: Performed By: #### C BCA, PINR, 73953-5, BMP #### [facility] ([id number]) [address], [address] [place] [address] BETA-2 GP1 IgG <1.4 Normal 0.0-19.9 [facility] Comment on above: Performed By: #### C BCA, PINR, 99894-5, BMP #### [facility] ([id number]) [address], [address] [place] [address] BETA-2 GP1 IgM <1.5 Normal 0.0-19.9 [facility] Comment on above: Performed By: #### C BCA, PINR, 65774-1, BMP #### [facility] ([id number]) [address], [address] [place] [address] CBC AND AUTO DIFFon 01-24-20 ABSOLUTE BASOPHIL 0.0 X10E9/L Normal 0.0-0.2 [facility] Comment on above: Performed By: #### 3 274-8, CBCA, BMP #### [facility] ([id number]) [address], [address] [place] [address] ABSOLUTE NEUTROPHIL 3.7 X10E9/L Normal 1.5-6.6 [facility] Comment on above: Performed By: #### 3 274-8, CBCA, BMP #### [facility] ([id number]) [address], [address] [place] [address] Basophils/100 WBC (Bld) 0.4 % Normal [facility] Comment on above: Performed By: #### 3 274-8, CBCA, BMP #### [facility] ([id number]) [address], [address] [place] [address] Eosinophils (Bld) [#/Vol] 0.2 10*3/uL Normal 0.0-0.4 [facility] Comment on above: Performed By: #### 3 274-8, CBCA, BMP #### [facility] ([id number]) [address] [address] Eosinophils/100 WBC (Bld) 2.9 % Normal [facility] Comment on above: Performed By: #### 3 274-8, CBCA, BMP #### [facility] ([id number]) [address] [address] Erythrocyte distribution width (RBC) [Ratio] 12.3 % Normal 11.5-15.0 [facility] Comment on above: Performed By: #### 3 274-8, CBCA, BMP #### [facility] ([id number]) [address] [address] Hematocrit (Bld) [Volume fraction] 36.4 % Normal 35-47 [facility] Comment on above: Performed By: #### 3 274-8, CBCA, BMP #### [facility] ([id number]) [address] [address] Hemoglobin (Bld) [Mass/Vol] 12.4 g/dL Normal 11.7-15.5 [facility] Comment on above: Performed By: #### 3 274-8, CBCA, BMP #### [facility] ([id number]) [address] [address] Lymphocytes (Bld) [#/Vol] 1.9 10*3/uL Normal 1.0-3.5 [facility] Comment on above: Performed By: #### 3 274-8, CBCA, BMP #### [facility] ([id number]) [address] [address] Lymphocytes/100 WBC (Bld) 29.7 % Normal [facility] Comment on above: Performed By: #### 3 274-8, CBCA, BMP #### [facility] ([id number]) [address] [place] [address] MCH (RBC) [Entitic mass] 32.5 pg Normal 27-34 [facility] Comment on above: Performed By: #### 3 274-8, CBCA, BMP #### [facility] ([id number]) [address] [place] [address] MCHC (RBC) [Mass/Vol] 34.2 g/dL Normal 32-36 [facility] Comment on above: Performed By: #### 3 274-8, CBCA, BMP #### [facility] ([id number]) [address], [facility] [address] [place] [address] MCV (RBC) [Entitic vol] 95 fL Normal 80-100 [facility] Comment on above: Performed By: #### 3 274-8, CBCA, BMP #### [facility] ([id number]) [address] [place] [address] Monocytes (Bld) [#/Vol] 0.5 10*3/uL Normal 0-0.9 [facility] Comment on above: Performed By: #### 3 274-8, CBCA, BMP #### [facility] ([id number]) [address] [place] [address] Monocytes/100 WBC (Bld) 8.2 % Normal [facility] Comment on above: Performed By: #### 3 274-8, CBCA, BMP #### [facility] ([id number]) [address], [address] [place] [address] Neutrophils/100 WBC (Bld) 58.8 % Normal [facility] Comment on above: Performed By: #### 3 274-8, CBCA, BMP #### [facility] ([id number]) [address], [address] [place] [address] Platelet mean volume (Bld) [Entitic vol] 8.7 fL Normal 7-12 [facility] Comment on above: Performed By: #### 3 274-8, CBCA, BMP #### [facility] ([id number]) [address], [facility] [address] [place] [address] Platelets (Bld) [#/Vol] 128 10*3/uL Low 150-450 [facility] Comment on above: Performed By: #### 3 274-8, CBCA, BMP #### [facility] ([id number]) [address], [facility] [address] [place] [address] RBC COUNT 3.83 X10E12/L Normal 3.80-5.20 [facility] Comment on above: Performed By: #### 3 274-8, CBCA, BMP #### [facility] ([id number]) [address] [address] WBC (Bld) [#/Vol] 6.4 10*3/uL Normal 4.0-11.0 [facility] Comment on above: Performed By: #### 3 274-8, CBCA, BMP #### [facility] ([id number]) [address], [facility] [address] [place] [address] Heparin unfractionated Chrom ogenic method Qn (PPP)on 01-24-2024 ANTI XA UFH 0.47 IU/mL Normal 0.30-0.70 [facility] Comment on above: Result Comment: Opti mal time for testing is 6 hrs post dosage This test is specific for monitoring patients on UFH, and is not recommended for use with other Anti-Xa medications. Performed By: #### 3 274-8, CBCA, BMP #### [facility] ([id number]) [address], [address] [address] dRVVT/dRVVT.excess phospholi pid Coag (PPP) [Ratio]on 01-24-2024 DILUTE VERONIKA'S [facility]OM Negative Normal [facility] Comment on above: Performed By: #### C BRENNON, PINR, 91634-6, BMP #### [facility] ([id number]) [address], [facility] [address] [place] [address] BASIC METABOLIC PANLon 01-22 Anion gap [Moles/Vol] 11 mmol/L Normal 5-15 [facility] Comment on above: Performed By: #### C BRENNON, PINR, 76208-2, BMP #### [facility] ([id number]) [address], [address] [address] Calcium [Mass/Vol] 8.3 mg/dL Low 8.5-10.5 [facility] Comment on above: Performed By: #### C BCA, PINR, 77832-9, BMP #### [facility] ([id number]) [address], [address] [address] Chloride [Moles/Vol] 106 mmol/L Normal 98-109 [facility] Comment on above: Performed By: #### C BCA, PINR, 23228-6, BMP #### [facility] ([id number]) [address], [address] [address] CO2 [Moles/Vol] 21 mmol/L Low 22-32 [facility] Comment on above: Performed By: #### C BCA, PINR, 02061-8, BMP #### [facility] ([id number]) [address], [address] [address] Creatinine [Mass/Vol] 0.65 mg/dL Normal 0.40-1.00 [facility] Comment on above: Result Comment: METH OD TRACEABLE TO IDMS STANDARD Performed By: #### C BCA, PINR, 55658-6, BMP #### [facility] ([id number]) [address], [address] [place] [address] eGFR (CKD-EPI) NON-RACE DEPENDENT >90 Normal >59 [facility] Comment on above: Result Comment: Reported eGFR is based on the CKD-EPI 2020 equation that does not use a race coefficient. Performed By: #### C BCA PINR, 73846-8, BMP #### [facility] ([id number]) [address], [address] [place] [address] Glucose [Mass/Vol] 78 mg/dL Normal 65-99 [facility] Comment on above: Performed By: #### C BRENNON PINR, 10412-5, BMP #### [facility] ([id number]) [address], [address] [place] [address] Potassium [Moles/Vol] 3.9 mmol/L Normal 3.5-5.0 [facility] Comment on above: Performed By: #### C BCA, PINR, 33299-2, BMP #### [facility] ([id number]) [address], [address] [place] [address] Sodium [Moles/Vol] 138 mmol/L Normal 134-146 [facility] Comment on above: Performed By: #### C BCA PINR, 20592-2, BMP #### [facility] ([id number]) [address], [address] [place] [address] Urea nitrogen [Mass/Vol] 11 mg/dL Normal 5-23 [facility] Comment on above: Performed By: #### C BRENNON, PINR, 73683-0, BMP #### [facility] ([id number]) [address], [address] [place] [address] CBC AND AUTO DIFFon 03-10-20 24 ABSOLUTE BASOPHIL 0.0 X10E9/L Normal 0.0-0.2 [facility] Comment on above: Performed By: #### C BRENNON PINR, 11614-1, BMP #### [facility] ([id number]) [address], [address] [place] [address] ABSOLUTE NEUTROPHIL 6.6 X10E9/L Normal 1.5-6.6 [facility] Comment on above: Performed By: #### C BRENNON, PINR, 80581-4, BMP #### [facility] ([id number]) [address], [address] [place] [address] Basophils/100 WBC (Bld) 0.3 % Normal [facility] Comment on above: Performed By: #### C BRENNON, PINR, 79548-2, BMP #### [facility] ([id number]) [address], [address] [place] [address] Eosinophils (Bld) [#/Vol] 0.1 10*3/uL Normal 0.0-0.4 [facility] Comment on above: Performed By: #### C BRENNON, PINR, 12629-3, BMP #### [facility] ([id number]) [address], [address] [place] [address] Eosinophils/100 WBC (Bld) 0.8 % Normal [facility] Comment on above: Performed By: #### C BRENNON, PINR, 94865-2, BMP #### [facility] ([id number]) [address], [address] [place] [address] Erythrocyte distribution width (RBC) [Ratio] 12.4 % Normal 11.5-15.0 [facility] Comment on above: Performed By: #### C BRENNON, PINR, 35036-2, BMP #### [facility] ([id number]) [address], [address] [place] [address] Hematocrit (Bld) [Volume fraction] 39.4 % Normal 35-47 [facility] Comment on above: Performed By: #### C BCA, PINR, 70058-1, BMP #### [facility] ([id number]) [address], [address] [place] [address] Hemoglobin (Bld) [Mass/Vol] 13.8 g/dL Normal 11.7-15.5 [facility] Comment on above: Performed By: #### C BRENNON, PINR, 82140-8, BMP #### [facility] ([id number]) [address], [facility] [address] [place] [address] Lymphocytes (Bld) [#/Vol] 1.9 10*3/uL Normal 1.0-3.5 [facility] Comment on above: Performed By: #### C BRENNON PINR, 59024-1, BMP #### [facility] ([id number]) [address], [facility] [address] [place] [address] Lymphocytes/100 WBC (Bld) 20.6 % Normal [facility] Comment on above: Performed By: #### C BRENNON, PINR, 88425-2, BMP #### [facility] ([id number]) [address], [facility] [address] [place] [address] MCH (RBC) [Entitic mass] 32.7 pg Normal 27-34 [facility] Comment on above: Performed By: #### Anastasiya WILLETT PINR, 15956-2, BMP #### [facility] ([id number]) [address], [address] [place] [address] MCHC (RBC) [Mass/Vol] 34.9 g/dL Normal 32-36 [facility] Comment on above: Performed By: #### Anastasiya WILLETT, PINR, 22278-4, BMP #### [facility] ([id number]) [address], [address] [place] [address] MCV (RBC) [Entitic vol] 94 fL Normal 80-100 [facility] Comment on above: Performed By: #### C BRENNON, PINR, 67836-6, BMP #### [facility] ([id number]) [address], [address] [place] [address] Monocytes (Bld) [#/Vol] 0.6 10*3/uL Normal 0-0.9 [facility] Comment on above: Performed By: #### C BCA, PINR, 93512-0, BMP #### [facility] ([id number]) [address], [address] [place] [address] Monocytes/100 WBC (Bld) 6.0 % Normal [facility] Comment on above: Performed By: #### C BRENNON, PINR, 55771-7, BMP #### [facility] ([id number]) [address], [address] [place] [address] Neutrophils/100 WBC (Bld) 72.3 % Normal [facility] Comment on above: Performed By: #### C BCA, PINR, 02427-0, BMP #### [facility] ([id number]) [address], [address] [place] [address] Platelet mean volume (Bld) [Entitic vol] 8.4 fL Normal 7-12 [facility] Comment on above: Performed By: #### C BCA, PINR, 32278-1, BMP #### [facility] ([id number]) [address], [address] [place] [address] Platelets (Bld) [#/Vol] 156 10*3/uL Normal 150-450 [facility] Comment on above: Performed By: #### C BCA, PINR, 93614-3, BMP #### [facility] ([id number]) [address], [address] [place] [address] RBC COUNT 4.21 X10E12/L Normal 3.80-5.20 [facility] Comment on above: Performed By: #### C BCA, PINR, 62157-9, BMP #### [facility] ([id number]) [address], [address] [place] [address] WBC (Bld) [#/Vol] 9.1 10*3/uL Normal 4.0-11.0 [facility] Comment on above: Performed By: #### C BRENNON, PINR, 66027-6, BMP #### [facility] ([id number]) [address], [address] [place] [address] CT CTV ABD AND PELVISon 01-13 CT [...] Hill MD on 01/23/2024 4:56 PM Normal [facility] Heparin unfractionated Chrom ogenic method Qn (PPP)on 01-23-2024 ANTI XA UFH 0.44 IU/mL Normal 0.30-0.70 [facility] Comment on above: Result Comment: Opti mal time for testing is 6 hrs post dosage This test is specific for monitoring patients on UFH, and is not recommended for use with other Anti-Xa medications. Performed By: #### 3 274-8 #### [facility] ([id number]) [address], [address] [place] [address] PROTIME AND INRon 01-23-2024 INR Coag (PPP) [Relative time] 1.1 {INR} Normal 0.8-1.1 [facility] Comment on above: Performed By: #### C BCA, PINR, 09418-2, BMP #### [facility] ([id number]) [address], [address] [place] [address] PT Coag (PPP) [Time] 12.3 s Normal 9.8-13.2 [facility] Comment on above: Performed By: #### C BCA, PINR, 38092-1, BMP #### [facility] ([id number]) [address], [address] [place] [address] aPTT Coag (PPP) [Time]on aPTT Coag (Bld) [Time] 51 s High 26-37 [facility] Comment on above: Performed By: #### C BCA, PINR, 14488-9, BMP #### [facility] ([id number]) [address], [address] [place] [address] Angelito 01-07-2024 L Specimen: [id number] Received: 01/10/24 Status: MICHAEL Waldron Num: [id number] Spec Type: Surgical Subm Dr: Angelia Treviño Tissues: A Fallopian Tube - Sterilization (BILATERAL) Procedures: HE/3, Gross/Micro L2 Age/ Patient Sex Location Account Attending Physician Kimberly Silverman 33/F LABELL [id number] Angelia Treviño SPEC NUM: [id number] RECD: 01/10/24 STATUS: MICHAEL WALDRON NUM: [id number] ANICETO: 01/07/24 [facility] DR: Angelia Treviño ENTERED: 01/10/24 [facility] DR: Lopez,Margarita SPEC TYPE: Surgical DEPT: FRANTZ FINE ORDERED: [...] markedly dilated lumens throughout all 3 segments. [employer] sections are submitted in 3 cassettes as follows: A1 - Cross-sections of shortest segment A2 - Cross-sections intermediate length segment A3 - Cross-sections longest segment CPT Codes 98518 -------- -------- Specimen: [id number] Received: 01/10/24 Status: TERRENCEEileen Waldron Num: [id number] Spec Type: Surgical Subm Dr: Angelia Treviño Tissues: A Fallopian Tube - Sterilization (BILATERAL) Procedures: HE/3, Gross/Micro L2 -------- Patient: Kimberly Silverman [id number] (Continued) -------- Signed (signature on file) Jani Garcia MD 01/15/24 0853 [facility] AMYLASEon 04-03-2023 Amylase [Catalytic activity/Vol] 62 U/L Normal 25-115 [facility] Comment on above: Performed By: #### L IPA ANDERSON ####[facility] [id number] [address]Dr. Reece Garg CBC AUTO DIFFon 04-03-2023 BASO # 0.0 103/ul Normal 0.0-0.1 [facility] Comment on above: Performed By: #### C BC #### [facility] [address] [place] [address] Dr. Reece Garg Basophils/100 WBC (Bld) 0.3 % Normal 0.2-2.0 [facility] Comment on above: Performed By: #### C BC #### [facility] [address] [place] [address] Dr. Reece Garg EO # 0.1 103/ul Normal 0.0-0.7 [facility] Comment on above: Performed By: #### C BC #### [facility] [address] [place] [address] Dr. Reece Garg Eosinophils/100 WBC (Bld) 0.6 % Critically low 0.9-7.0 [facility] Comment on above: Performed By: #### C BC #### [facility] [address] [place] [address] Dr. Reece Garg Erythrocyte distribution width (RBC) [Ratio] 11.9 % Normal 11.0-15.0 [facility] Comment on above: Performed By: #### C BC #### [facility] [address] [place] [address] Dr. Reece Garg Hematocrit (Bld) [Volume fraction] 37.7 % Normal 36.0-48.0 [facility] Comment on above: Performed By: #### C BC #### [facility] [address] [place] [address] Dr. Reece Garg Hemoglobin (Bld) [Mass/Vol] 12.9 g/dL Normal 12.0-16.0 [facility] Comment on above: Performed By: #### C BC #### [facility] [address] [place] [address] Dr. Reece Garg IG # 0.05 10e3/ul Critically high 0.00-0.03 [facility] Comment on above: Performed By: #### C BC #### [facility] [address] [place] [address] Dr. Reece Garg IG % 0.4 % Normal 0.0-0.5 [facility] Comment on above: Performed By: #### C BC #### [facility] [address] [place] [address] Dr. Reece Garg LYMPH # 2.3 103/ul Normal 1.2-3.8 [facility] Comment on above: Performed By: #### C BC #### [facility] [address] [place] [address] Dr. Reece Garg Lymphocytes/100 WBC (Bld) 20.8 % Normal 20.5-60.0 [facility] Comment on above: Performed By: #### C BC #### [facility] [address] [place] [address] Dr. Reece Garg MANUAL DIFF REQ NO Normal [facility] Comment on above: Performed By: #### C BC #### [facility] [address] [place] [address] Dr. Reece Garg MCH (RBC) [Entitic mass] 32.3 pg Normal 26.7-34.0 [facility] Comment on above: Performed By: #### C BC #### [facility] [address] [place] [address] Dr. Reece Garg MCHC (RBC) [Mass/Vol] 34.2 g/dL Normal 29.9-35.2 [facility] Comment on above: Performed By: #### C BC #### [facility] [address] [place] [address] Dr. Reece Garg MCV (RBC) [Entitic vol] 94.3 fL Normal 81.0-99.0 [facility] Comment on above: Performed By: #### C BC #### [facility] [address] [place] [address] Dr. Reece Garg MONO # 0.6 103/ul Normal 0.3-0.8 [facility] Comment on above: Performed By: #### C BC #### [facility] [address] [place] [address] Dr. Reece Garg Monocytes/100 WBC (Bld) 5.3 % Normal 1.7-12.0 [facility] Comment on above: Performed By: #### C BC #### [facility] [address] [place] [address] Dr. Reece Garg NEUT # 8.1 103/ul Critically high 1.4-6.5 [facility] Comment on above: Performed By: #### C BC #### [facility] [address] [place] [address] Dr. Reece Garg Neutrophils/100 WBC (Bld) 72.6 % Normal 43.0-75.0 [facility] Comment on above: Performed By: #### C BC #### [facility] [address] [place] [address] Dr. Reece Garg Platelet mean volume (Bld) [Entitic vol] 10.2 fL Normal 9.5-13.5 [facility] Comment on above: Performed By: #### C BC #### [facility] [address] [place] [address] Dr. Reece Garg PLT 163 103/ul Normal 150-450 [facility] Comment on above: Performed By: #### C BC #### [facility] [address] [address] [address] Reece Garg RBC 4.00 106/ul Critically low 4.20-5.40 [facility] Comment on above: Performed By: #### C BC #### [facility] [address] [place] [address] Dr. Reece Garg WBC 11.1 103/ul Critically high 4.0-11.0 [facility] Comment on above: Performed By: #### C BC #### [facility] [address] [place] [address] Dr. Reece Garg BASO # 0.0 103/ul Normal 0.0-0.1 [facility] Comment on above: Performed By: #### C BC #### [facility] [address] [place] [address] Dr. Reece Garg Basophils/100 WBC (Bld) 0.3 % Normal 0.2-2.0 [facility] Comment on above: Performed By: #### C BC #### [facility] [address] [place] [address] Dr. Reece Garg EO # 0.1 103/ul Normal 0.0-0.7 [facility] Comment on above: Performed By: #### C BC #### [facility] [address] [place] [address] Dr. Reece Garg Eosinophils/100 WBC (Bld) 0.7 % Critically low 0.9-7.0 [facility] Comment on above: Performed By: #### C BC #### [facility] [address] [place] [address] Dr. Reece Garg Erythrocyte distribution width (RBC) [Ratio] 12.0 % Normal 11.0-15.0 [facility] Comment on above: Performed By: #### C BC #### [facility] [address] [address] [address] Reece Garg Hematocrit (Bld) [Volume fraction] 41.4 % Normal 36.0-48.0 [facility] Comment on above: Performed By: #### C BC #### [facility] [address] [address] [address] Reece Garg Hemoglobin (Bld) [Mass/Vol] 14.3 g/dL Normal 12.0-16.0 [facility] Comment on above: Performed By: #### C BC #### [facility] [address] [place] [address] Dr. Reece Garg IG # 0.05 10e3/ul Critically high 0.00-0.03 [facility] Comment on above: Performed By: #### C BC #### [facility] [address] [place] [address] Dr. Reece Garg IG % 0.3 % Normal 0.0-0.5 [facility] Comment on above: Performed By: #### C BC #### [facility] [address] [address] [address] Reece Garg LYMPH # 1.6 103/ul Normal 1.2-3.8 [facility] Comment on above: Performed By: #### C BC #### [facility] [address] [place] [address] Dr. Reece Garg Lymphocytes/100 WBC (Bld) 10.6 % Critically low 20.5-60.0 [facility] Comment on above: Performed By: #### C BC #### [facility] [address] [place] [address] Dr. Reece Garg MANUAL DIFF REQ NO Normal [facility] Comment on above: Performed By: #### C BC #### [facility] [address] [place] [address] Dr. Reece Garg MCH (RBC) [Entitic mass] 32.1 pg Normal 26.7-34.0 [facility] Comment on above: Performed By: #### C BC #### [facility] [address] [address] [address] Reece Garg MCHC (RBC) [Mass/Vol] 34.5 g/dL Normal 29.9-35.2 [facility] Comment on above: Performed By: #### C BC #### [facility] [address] [address] [address] Reece Garg MCV (RBC) [Entitic vol] 93.0 fL Normal 81.0-99.0 [facility] Comment on above: Performed By: #### C BC #### [facility] [address] [address] [address] Reece Garg MONO # 0.7 103/ul Normal 0.3-0.8 [facility] Comment on above: Performed By: #### C BC #### [facility] [address] [place] [address] Dr. Reece Garg Monocytes/100 WBC (Bld) 4.7 % Normal 1.7-12.0 [facility] Comment on above: Performed By: #### C BC #### [facility] [address] [place] [address] Dr. Reece Garg NEUT # 12.9 103/ul Critically high 1.4-6.5 [facility] Comment on above: Performed By: #### C BC #### [facility] [address] [place] [address] Dr. Reece Garg Neutrophils/100 WBC (Bld) 83.4 % Critically high 43.0-75.0 [facility] Comment on above: Performed By: #### C BC #### [facility] [address] [place] [address] Dr. Reece Garg Platelet mean volume (Bld) [Entitic vol] 10.4 fL Normal 9.5-13.5 [facility] Comment on above: Performed By: #### C BC #### [facility] [address] [place] [address] Dr. Reece Garg PLT 194 103/ul Normal 150-450 [facility] Comment on above: Performed By: #### C BC #### [facility] [address] [place], [place] [address] Dr. Reece Garg RBC 4.45 106/ul Normal 4.20-5.40 [facility] Comment on above: Performed By: #### C BC #### [facility] [address] [place], [place] [address] Dr. Reece Garg WBC 15.4 103/ul Critically high 4.0-11.0 [facility] Comment on above: Performed By: #### C BC #### [facility] [address] [place], [place] [address] ABD/PELV W CONon [...] LAVON ELIZALDE Date: 2023-04-03 01:36 Normal [facility] ER URINE PROFILEon 3 Bilirubin Ql (U) Negative Normal NEGATIVE [facility] Comment on above: Performed By: #### P REGU, ERUR #### [facility] [address] [address] [address] Reece Garg Clarity (U) CLEAR Normal CLEAR [facility] Comment on above: Performed By: #### P REGU, ERUR #### [facility] [address] [place] [address] Dr. Reece Garg Color (U) LT. YELLOW Normal YELLOW [facility] Comment on above: Performed By: #### P REGU, ERUR #### [facility] [address] [place] [address] Dr. Reece ZENGAHD A micrscopic examination will be performed if indicated. Normal [facility] Comment on above: Performed By: #### P REGU, ERUR #### [facility] [address] [address] [address] Reece Garg Glucose Ql (U) Negative Normal NEGATIVE [facility] Comment on above: Performed By: #### P REGU, ERUR #### [facility] [address] [place] [address] Dr. Reece Garg Hemoglobin Ql (U) Negative Normal NEGATIVE [facility] Comment on above: Performed By: #### P REGU, ERUR #### [facility] [address] [address] [address] Reece Garg Ketones Ql (U) 15 mg/dl Abnormal NEGATIVE [facility] Comment on above: Performed By: #### P REGU, ERUR #### [facility] [address] [place] [address] Dr. Reece Garg LEUKOCYTES Negative Normal NEGATIVE [facility] Comment on above: Performed By: #### P REGU, ERUR #### [facility] [address] [address] [address] Reece Garg Nitrite Ql (U) Negative Normal NEGATIVE [facility] Comment on above: Performed By: #### P REGU, ERUR #### [facility] [address] [address] [address] Reece Garg pH (U) 5.5 [pH] Normal 5-9 [facility] Comment on above: Performed By: #### P REGU, ERUR #### [facility] [address] [place] [address] Dr. Reece Garg SPEC GRAVITY <=1.005 Abnormal 1.005-<=1.025 [facility] Comment on above: Performed By: #### P REGU, ERUR #### [facility] [address] [place] [address] Dr. Reece Garg UA PROTEIN Negative Normal NEGATIVE/ TRACE [facility] Comment on above: Performed By: #### P REGU, ERUR #### [facility] [address] [place] [address] Dr. Reece Garg UR MICRO IND NOT INDICATED Normal [facility] Comment on above: Performed By: #### P REGU, ERUR #### [facility] [address] [place] [address] Dr. Reece Garg Urobilinogen Qn (U) 0.2 {Dariel'U}/dL Normal 0.2 - 1. 0 [facility] Comment on above: Performed By: #### P REGU, ERUR #### [facility] [address] [place] [address] Dr. Reece Garg LIPASEon 04-03-2023 Lipase [Catalytic activity/Vol] 62.0 U/L Critically low 73.0-393.0 [facility] Comment on above: Performed By: #### L IPA, ANDERSON ####[facility] [id number] [address]Dr. Reece Garg MONOon 04-03-2023 Monocytes (Bld) [#/Vol] Negative Normal NEGATIVE [facility] Comment on above: Performed By: #### M JOSE DANIEL #### [facility] [address] [address] [address] Reece Garg URon 04-03-2023 , QUAL Negative Normal NEGATIVE [facility] Comment on above: Performed By: #### P MOISÉSU, ERUR #### [facility] [address] [address] [address] Reece Garg PROF 14(COMP METB)on 023 Albumin [Mass/Vol] 3.3 g/dL Critically low 3.4-5.0 [facility] Comment on above: Performed By: #### C MP #### [facility] [address] [place] [address] Dr. Reece Garg Albumin/Globulin [Mass ratio] 1.0 {ratio} Normal [facility] Comment on above: Performed By: #### C MP #### [facility] [address] [place] [address] Dr. Reece Garg ALP [Catalytic activity/Vol] 38 U/L Critically low 46-116 [facility] Comment on above: Performed By: #### C MP #### [facility] [address] [address] [address] Reece Garg ALT [Catalytic activity/Vol] 16 U/L Normal 14-59 [facility] Comment on above: Performed By: #### C MP #### [facility] [address] [address] [address] Reece Garg Anion gap [Moles/Vol] 10.7 mmol/L Normal [facility] Comment on above: Performed By: #### C MP #### [facility] [address] [address] [address] Reece Garg AST [Catalytic activity/Vol] 10 U/L Critically low 15-37 [facility] Comment on above: Performed By: #### C MP #### [facility] [address] [address] [address] Reece Garg Bilirubin [Mass/Vol] 1.0 mg/dL Normal 0.2-1.0 [facility] Comment on above: Performed By: #### C MP #### [facility] [address] [address] [address] Reece Garg Calcium [Mass/Vol] 8.2 mg/dL Critically low 8.5-10.1 [facility] Comment on above: Performed By: #### C MP #### [facility] [address] [address] [address] Reece Garg Chloride [Moles/Vol] 106 mmol/L Normal 98-107 [facility] Comment on above: Performed By: #### C MP #### [facility] [address] [address] [address] Reece Garg CO2 [Moles/Vol] 27.0 mmol/L Normal 21.0-32.0 [facility] Comment on above: Performed By: #### C MP #### [facility] [address] [place] [address] Dr. Reece Garg Creatinine [Mass/Vol] 0.77 mg/dL Normal 0.55-1.02 [facility] Comment on above: Performed By: #### C MP #### [facility] [address] [place] [address] Dr. Reece Garg EGFR-AF AZERBAIJANI >60 Normal >=60 [facility] Comment on above: Performed By: #### C MP #### [facility] [address] [place] [address] Dr. Reece Garg EGFR-NON AF AZERBAIJANI >60 Normal >=60 [facility] Comment on above: Performed By: #### C MP #### [facility] [address] [place] [address] Dr. Reece Garg Globulin (S) [Mass/Vol] 3.3 g/dL Normal [facility] Comment on above: Performed By: #### C MP #### [facility] [address] [place] [address] Dr. Reece Garg Glucose [Mass/Vol] 102 mg/dL Normal 74-106 [facility] Comment on above: Performed By: #### C MP #### [facility] [address] [place] [address] Dr. Reece Garg Potassium [Moles/Vol] 3.7 mmol/L Normal 3.5-5.1 [facility] Comment on above: Performed By: #### C MP #### [facility] [address] [address] [address] Reece Garg Protein [Mass/Vol] 6.6 g/dL Normal 6.4-8.2 [facility] Comment on above: Performed By: #### C MP #### [facility] [address] [address] [address] Reece Garg Sodium [Moles/Vol] 140 mmol/L Normal 136-145 [facility] Comment on above: Performed By: #### C MP #### [facility] [address] [address] [address] Reece Garg Urea nitrogen [Mass/Vol] 8.0 mg/dL Normal 7.0-18.0 [facility] Comment on above: Performed By: #### C MP #### [facility] [address] [address] [address] Reece Garg Urea nitrogen/Creatinine [Mass ratio] 10.4 mg/mg Normal [facility] Comment on above: Performed By: #### C MP #### [facility] [address] [address] [address] Reece Garg PROTIMEon 04-03-2023 INR Coag (PPP) [Relative time] 1.06 {INR} Normal [facility] Comment on above: Performed By: #### P TT, PT #### [facility] [address] [place] [address] Dr. Reece Garg INR GUIDELINES SEE BELOW Normal [facility] Comment on above: Result Comment: JJ RED INR: 2.0 - 3.0 CONDITIONS NOT LISTED BELOW 2.5 - 3.5 FOR PROSTHETIC HEART VALVE REPLACEMENT 2.5 - 3.5 RECURRENT THROMBOSIS Performed By: #### P TT, PT #### [facility] [address] [place] [address] Dr. Reece Garg PT Coag (PPP) [Time] 11.2 s Normal 9.0-11.6 [facility] Comment on above: Performed By: #### P TT, PT #### [facility] [address] [address] [address] Reece Garg PTTon 04-03-2023 aPTT Coag (Bld) [Time] 28.1 s Normal 22.3-36.2 [facility] Comment on above: Performed By: #### P TT, PT #### [facility] [address] [address] [address] Reece Garg PAP ACOG PANEL 2: 30 to 65on 07-28-2022 . . Normal [facility] Comment on above: Result Comment: Perf ormed at: WB Performed By: #### [id number] ####[facility] [id number] [address]Dr. Reece Garg Age Gdln ACOG Testing 30-65 [facility] Comment on above: Performed By: #### [id number] ####[facility] [id number] [place], [place] [address]Dr. Reece Garg DIAGNOSIS: Comment Normal [facility] Comment on above: Result Comment: NEGA TIVE FOR INTRAEPITHELIAL LESION OR MALIGNANCY. Performed at: WB Performed By: #### [id number] ####[facility] [id number] [place], [place] [address]Dr. Reece Garg HPV Aptima Negative Normal Negative [facility] Comment on above: Result Comment: This nucleic acid amplification test detects fourteen high-risk HPV types (16,18,31,33,35,39,45,51,52,56,58,59,66,68) without differentiation. Performed at: =G Performed By: #### [id number] ####[facility] [id number] [address]Dr. Reece Garg Methodology: Comment Normal [facility] Comment on above: Result Comment: This liquid based ThinPrep(R) pap test was screened with the use of an image guided system. Performed at: WB Performed By: #### [id number] ####[facility] [id number] [address]Dr. Reece Garg Note: Comment Normal [facility] Comment on above: Result Comment: The Pap smear is a screening test designed to aid in the detection of premalignant and malignant conditions of the uterine cervix. It is not a diagnostic procedure and should not be used as the sole means of detecting cervical cancer. Both false-positive and false-negative reports do occur. . Performed at: WB Performed By: #### [id number] ####[facility] [id number] [address]DrHardik Garg Performed by: Comment Normal [facility] Comment on above: Result Comment: Alexandra Cortez, Education Director (ASCP) Performed at: WB Performed By: #### 4 [id number] ####[facility] [id number] [address]DrHardik Garg Specimen adequacy: Comment Normal [facility] Comment on above: Result Comment: Sati sfactory for evaluation. No endocervical component is identified. Performed at: WB Performed By: #### [id number] ####[facility] [id number] [address]DrHardik Garg VAGINITIS/VAGINOSIS DNA PROB Erwin 07-24-2022 Mala species Negative Normal Negative [facility] Comment on above: Performed By: #### V AGINT #### [facility] [address] [place] [address] Dr. Reece Garg Gardnerella vaginalis Positive Abnormal Negative [facility] Comment on above: Performed By: #### V AGINT #### [facility] [address] [address] [address] Reece Garg Trichomonas vaginalis Negative Normal Negative [facility] Comment on above: Performed By: #### V AGINT #### [facility] [address] [address] [address] Reece Garg Vital Signs Date Time Vital Sign Value Performing Clinician Lazaro holly 08-08-2024 11:15-0400 Blood Pressure Location PRETTY JAMARI [facility] 08-08-2024 11:15-0400 Diastolic blood pressure 63 mm[Hg] PRETTY KAUFFMAN [facility] 08-08-2024 11:15-0400 Heart rate 61 /min PRETTY KAUFFMAN [facility] 08-08-2024 11:15-0400 Respiratory rate 19 /min PRETTY KAUFFMAN [facility] 08-08-2024 11:15-0400 Systolic blood pressure 96 mm[Hg] PRETTY KAUFFMAN [facility] Encounters Encounter Date Encounter Type Care Provider Facility Start: 08-08-2024 End: 08-08-2024 ambulatory PRETTY KAUFFMAN Facility:[facility] Start: 08-08-2024 End: 08-08-2024 Patient encounter procedure PRETTY KAUFFMAN [facility] Start: 08-03-2024 ambulatory PRETTY KAUFFMAN Facility :[facility] Start: 08-03-2024 End: 08-03-2024 ambulatory ANGELIA HUDSON Not Available Start: 07-31-2024 End: 07-31-2024 ambulatory ANGELIA HUDSON Not Available Start: 07-18-2024 End: 07-18-2024 ambulatory THERESA L DAVIS Not Available Start: 07-10-2024 End: 07-10-2024 ambulatory ANDERSON FRIED Not Available Start: 06-29-2024 End: 06-29-2024 ambulatory THERESA L DAVIS Not Available Start: 05-25-2024 End: 05-25-2024 ambulatory [facility] Start: 04-27-2024 ambulatory [facility] Start: 04-04-2024 End: 04-04-2024 ambulatory ADELFO PEREZ Not Available Start: 02-16-2024 End: 02-16-2024 ambulatory THERESA L DAVIS Not Available Start: 02-10-2024 End: 02-10-2024 Office outpatient visit 15 minutes Jani Bridges MD [facility]: [facility] Comment on above: Acute deep vein thro mbosis (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); May-Thurner syndrome Start: 02-10-2024 ambulatory [facility] Start: 01-31-2024 End: 01-31-2024 ambulatory ANGELIA HUDSON Not Available Start: 01-26-2024 End: 01-26-2024 [facility] Start: 01-24-2024 End: 01-26-2024 Evaluation and management of inpatient [facility] Start: 01-24-2024 End: 01-24-2024 ambulatory DL CAVAZOS [facility] Start: 01-24-2024 ambulatory [facility] Start: 01-23-2024 End: 01-26-2024 Evaluation and management of inpatient [facility] Start: 01-23-2024 End: 01-25-2024 Evaluation and management of inpatient [facility] Start: 01-20-2024 End: 01-20-2024 ambulatory ANDERSON FRIED Not Available Start: 01-07-2024 End: 01-07-2024 ambulatory Angelia Hudson Facility:[facility] Start: 12-14-2023 End: 12-14-2023 ambulatory ANGELIA HUDSON Not Available Start: 11-04-2023 End: 11-04-2023 ambulatory ANGELIA HUDSON Not Available Start: 04-03-2023 End: 04-03-[address] USMAN ALVAREZ . Facility:[facility] Start: 07-26-2022 Encounter for gynecological examination (general) (routine) without abnormal findings DR EARLENE MCDONOUGH . [facility] Start: 07-22-2022 End: 07-22-[address] EARLENE MCDONOUGH . Facility:[facility] Start: 07-22-2022 End: 07-22-2022 Encounter for gynecological examination (general) (routine) without abnormal findings DR EARLENE MCDONOUGH . Facility: Procedures Date Procedure Procedure Detail Performing Clinician Start: 02-10-2024 Follow-up visit Follow-up JANI BRIDGES Start: 01-23-2024 Adult depression scr eening assessment Jani Bridges MD Work Phone: Start: 01-07-2024 Fallopian tube excision PRETTY KAUFFMAN Comment on above: partial Start: 11-15-2023 Removal of thrombus ROMANA KAUFFMAN H/O: hysterectomy PRETTY Lili VELAZQUEZ History of appendectomy ADITI LORENZO KAUFFMAN Laparoscope, device (physical object) PRETTY KAUFFMAN Comment on above: pelvic Plan of Treatment Date Care Activity Detail Author Start: 01-24-2025 Adult BMI Screening Adult BMI Screen ing [employer] Start: 01-23-2025 Tobacco Screening Tobacco Screening [employer] Start: 01-22-2025 Depression Screening Depression Scre ening [employer] Start: 02-25-2024 End: 02-10-2025 US.doppler Thoracic and Abdominal Aorta and Inferior Vena Cava and Illiac vessels Vas IVC/iliac duplex complete Vascular Ultrasound Routine Acute deep vein thrombosis (DVT) of iliac vein of left lower extremity (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 Expected: 02/25/2024 (Approximate), Expires: 02/10/2025 [employer] Work Phone: Comment on above: Expected: 02/25/2024 (Approximate), Expires: 02/10/2025 Start: 07-16-2023 Influenza vaccination [facility] Start: 02-14-2019 DTaP,Tdap and Td Vaccines (6 - Tdap) DTaP,Tdap and Td Vaccines (6 - Tdap) [facility] Start: 2013 Screening for malign ant neoplasm of cervix Pap Smear [employer] Start: 2010 Adult BMI Follow Up Plan Adult BMI Follow Up Plan [facility] Immunizations Immunization Date Immunization Notes Care Provider Fa jonatan 05-13-2021 SARS-CoV-2 (COVID-19 ) mRNA BNT-162b2 vax PRETTY JAMARI [facility] 04-22-2021 SARS-CoV-2 (COVID-19 ) mRNA BNT-162b2 vax PRETTY JAMARI [facility] 07-04-2019 hepatitis B vaccine, adult dosage PRETTY JAMARI [facility] 05-02-2019 hepatitis B vaccine, adult dosage PRETTY JAMARI [facility] 02-28-2019 hepatitis B vaccine, adult dosage PRETTY JAMARI [facility] 02-13-2019 Td(adult) unspecifie d formulation PRETTY JAMARI [facility] Comment on above: Result Comment: 2023: TENIVAC GIVEN BY DR ALVAREZ IN [place] 07-11-1997 diphtheria, tetanus toxoids and acellular pertussis vaccine PRETTY JAMARI [facility] 07-11-1997 measles, mumps and rubella virus vaccine PRETTY JAMARI [facility] 07-11-1997 poliovirus vaccine, unspecified formulation PRETTY JAMARI [facility] 06-23-1993 Hib, unspecified formulation PRETTY JAMARI [facility] 06-23-1993 measles, mumps and rubella virus vaccine PRETTY JAMARI [facility] 06-23-1993 poliovirus vaccine, unspecified formulation PRETTY JAMARI [facility] 1992 Hib, unspecified formulation PRETTY JAMARI [facility] 1992 Hib, unspecified formulation PRETTY JAMARI [facility] 1992 poliovirus vaccine, unspecified formulation PRETTY JAMARI [facility] 1992 Hib, unspecified formulation PRETTY JAMARI [facility] 1992 poliovirus vaccine, unspecified formulation PRETTY JAMARI [facility] Payers Date Payer Category Payer Self-pay 2022 Unknown NATALIVIKY BARBARA OUT OF STATE PPO/TRUST [id number] 2022-Present [phone] [address] [place] [address] [id number] 1992 Unknown [id number] 2..840.1.727065.3.579.2.593 1992 Unknown [id number] 2..840.1.856744.3.579.2.593 1992 Unknown [id number] 2.16.840.1.478463.3.579.2.1286 1992 Unknown [id number] 2.16.840.1.758743.3.579.2.6 1992 Unknown [id number] 2.16840.1.139446.3.579.2.1285 1992 Unknown [id number] 2.16840.1.369778.3.579.2.1285 1992 Unknown [id number] 2.16840.1.729781.3.579.2.1285 1992 Unknown [id number] 2.840.1.985018.3.579.2.1285 1992 Unknown [id number] 2.840.1.650294.3.579.2.1285 1992 Unknown [id number] 2.0.1.794389.3.579.2.1285 1992 Unknown [id number] 2.840.1.988387.3.579.2.1285 1992 Unknown [id number] 2.0.1.179678.3.579.2.1285 1992 Unknown [id number] 2.840.1.070355.3.579.2.1258 1992 Unknown [id number] 2.840.1.784277.3.579.2.1258 1992 Unknown [id number] 2.840.1.105103.3.579.2.1258 1992 Unknown [id number] 2.840.1.692472.3.579.2.1258 1992 Unknown [id number] 2.840.1.630301.3.579.2.1258 1992 Unknown [id number] 2.840.1.201909.3.579.2.1258 1992 Unknown [id number] 2.16840.1.218507.3.579.2.1258 1992 Unknown [id number] 2.16840.1.673065.3.579.2.1259 1992 Unknown [id number] 2.16.840.1.992132.3.579.2.1259 1992 Unknown [id number] 2.16.840.1.680339.3.579.2.9 1992 Unknown [id number] 2.16.840.1.975944.3.579.2.1259 1992 Unknown [id number] 2.16.840.1.974745.3.579.2.727 1992 Unknown [id number] 2.16.840.1.431005.3.579.2.727 1959 Medicaid [id number] 1959 Unknown [id number] 1959 Unknown [id number] 1959 Unknown [id number] Unknown [id number] Social History Date Type Detail Facility Start: 01-23-2024 End: 08-08-2024 Tobacco smoking status [facility] Ex-smoker [facility] History of tobacco use Current smoker [facility] History of tobacco use Cigarette Smoker P [facility] Start: 01-23-2024 Tobacco use and exposure Smokeless tobacco non-user [facility] Start: 01-24-2024 Alcohol intake Ex-drinker (finding) [facility] Start: 01-23-2024 End: 01-24-2024 History of Social function [facility] Start: 01-23-2024 End: 01-24-2024 [facility] [employer] [facility] Has the [employer], or [employer] threatened to shut off services in your home in past 12Mo No [facility] How often to you hav e a drink containing alcohol? Never [facility] How many standard drinks containing alcohol do you have on a typical day? Patient does not drink [facility] Start: 1990 Sex Assigned At Not on file P [facility] Medical Equipment Procedure Code Equipment Code Equipment Origin al Text Equipment Identifier Dates Stent Vsc 18mm X 100mm Venous Nitinol Slf Expanding Abre - [id number] Start: 01-24-2024 Functional Status Date Assessment Result Facility 08-08-2024 Functional Status N/A [facility] Discharge instructions 08-08-2024 Note Date & Type Note Facility 08-08-2024 Hospital Discharg e instructions Patient Education 08/08/2024 12:40:13 Pelvic Pain, Female Pelvic Pain, Female Pelvic pain is pain in your lower abdomen, below your belly button and between your hips. The pain may start suddenly (be acute), keep coming back (be recurring), or last a long time (become chronic). Pelvic pain that lasts longer than 6 months is considered chronic. Pelvic pain may affect your: Reproductive organs. Urinary system. Digestive tract. Musculoskeletal system. There are many potential causes of pelvic pain. Sometimes, the pain can be a result of digestive or urinary conditions, strained muscles or ligaments, or reproductive conditions. Sometimes the cause of pelvic pain is not known. Follow these instructions at home: Take qfbc-oju-gswcjtn and prescription medicines only as told by your health care provider. Rest as told by your health care provider. Do not have sex if it hurts. Keep a journal of your pelvic pain. Write down: ?When the pain started. ?Where the pain is located. ?What seems to make the pain better or worse, such as food or your monthly period (menstrual cycle). ?Any symptoms you have along with the pain. Keep all follow-up visits. This is important. Contact a health care provider if: Medicine does not help your pain, or your pain comes back. You have new symptoms. You have abnormal vaginal discharge or bleeding, including bleeding after menopause. You have a fever or chills. You are constipated. You have blood in your urine or stool (feces). You have foul-smelling urine. You feel weak or light-headed. Get help right away if: You have sudden severe pain. Your pain gets steadily worse. You have severe pain along with fever, nausea, vomiting, or excessive sweating. You lose consciousness. These symptoms may represent a serious problem that is an emergency. Do not wait to see if the symptoms will go away. Get medical help right away. Call your local emergency services (911 in the [place] Do not drive yourself to the hospital. Summary Pelvic pain is pain in your lower abdomen, below your belly button and between your hips. There are many potential causes of pelvic pain. Keep a journal of your pelvic pain. This information is not intended to replace advice given to you by your health care provider. Make sure you discuss any questions you have with your health care provider. Document Revised: 03/10/2022 Document Reviewed: 03/10/2022 [employer] Patient Education 2023 [employer]. Follow Up Care 08/03/2024 15:49:20 With:[facility] Address: [address] [address] Business (1) When: Unknown Comments:our health professional will be contacting you for follow-up [facility] Clinical Note 08-08-2024 Note Date & Type Note Facility 08-08-2024 Note Urology Office/Clini c Note Chief Complaint Dr. Treviño referral HPI Staff 34 year old female referred by Dr. Treviño for chronic bladder pain. Had annual visit on 07/31/24 and note states pt had vaginal and urethral tenderness on exam. He prescribed Doxy BID x 30 days and Pyridium. Also on Flagyl, Azithromycin, and Diflucan for BV. Hx endometriosis and chronic pelvic pain. Partial hyst 2018. Bilat salpingectomy Dec 2023. Still has ovaries. Nl renal fx 01/25/24. Dr Alvarez recently ordered a lot of bloodwork. Nothing uro contributory on Clinisync for last few years. Dysuria: Pt. states having elizabeth with urination Incomplete bladder emptying: no, PVR 0mL Hematuria: no Frequency: 3-4 hours Urgency: at least once a day Nocturia: 0-1x's Stream: occasionally. Pt. states with pain stream is weak, when she has less pain stream is good Post void dripping: no Wearing pads/ Depends: no Urge incontinence: few times month Stress incontinence: with sneezing Incontinence without Sensory Awareness: no Abdominal pain: yes Flank pain: Lt. flank pain Review of Systems PHQ Score Initial Depression Screen Score: 0 SCORE no fever, chills, malaise, myalgia. no rash/lesions. no chest pain, palpitations, or SOB. no abdominal pain, nausea, vomiting. no unilateral calf swelling, redness, pain Physical Exam Vitals & Measurements HR: 61(Peripheral) RR: 19 BP: 96/63 HT: 62 in HT: 158 cm WT: 60 kg WT: 132 lb BMI: 24.03 General: nontoxic, NAD Mouth: moist mucosa Lungs: normal respiratory effort Cardio: regular rate, good distal perfusion Abdomen: nondistended, no suprapubic distention or tenderness, no CVA tenderness Neurologic: Grossly normal Skin: No rashes or suspicious lesions Assessment/Plan BBSQ 13 good control UA completed in office today shows no microhematuria or signs of infection. PVR 0ml On Eliquis d/t DVT 1. Chronic bladder pain (R39.82: Chronic bladder pain) x 1.5 yrs Pain at rest and with urination. At rest is throbbing. With urination is burning. Also gets twinges in urethra. Worse for several days after sex. Better if abstains from intercourse for several weeks. Rarely has days without pain. Reports Dr Treviño has prescribed multiple rounds of abx (including 1 mo Doxy, 1 mo Keflex, post-coital abx) without change in sx. Currently on another 30d round of Doxy. Will schedule Cysto with [facility]. The procedure risks, benefits, details, and treatment alternatives have been discussed with the patient. These include bleeding, infection, recurrent scar in over 50%, need for repeat dilation or other procedures, no symptom relief with dilation, among others. Full informed consent has been obtained. Will order Local anesthesia. Pt requests po Valium due to test anxiety. 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 Ordered: diazepam, See Instructions, 1 tab po 30-60 mins prior to cystoscopy, # 1 tab(s), Refills(s) 0, Pharmacy: [id number], 158, cm, 08/08/24 11:39:00 EDT, Height/Length Dosing, 60, kg, 08/08/24 11:39:00 EDT, Weight Dosing E&M of New Patient Moderate 45-59 Min 17819 2. Chronic pelvic pain in female (R10.2: Pelvic and perineal pain) Sp hysterectomy 2017 w several laproscopy d/t endometriosis. Had laproscopy Dec 2023 and bilat salpingectomy at that time. Pt reports no endometriosis found at that time. Will refer to [facility] at [facility] (her sx are a bit beyond my scope of PFPT) to assess for hypertonic pelvic floor, etc. Ordered: diazepam, See Instructions, 1 tab po 30-60 mins prior to cystoscopy, # 1 tab(s), Refills(s) 0, Pharmacy: [id number], 158, cm, 08/08/24 11:39:00 EDT, Height/Length Dosing, 60, kg, 08/08/24 11:39:00 EDT, Weight Dosing 11709 Measure Post Void residual urine and/or bladder capacity by US- non-imaging E&M of New Patient Moderate 45-59 Min 26985 Urnls Dip Stick Auto w/o Microscopy POC 11104 3. Recurrent vaginitis (N76.0: Acute vaginitis) Also reports frequent vaginal infections - bacterial and fungal. Ordered: diazepam, See Instructions, 1 tab po 30-60 mins prior to cystoscopy, # 1 tab(s), Refills(s) 0, Pharmacy: [facility]/pharmacy #[id number], 158, cm, 08/08/24 11:39:00 EDT, Height/Length Dosing, 60, kg, 08/08/24 11:39:00 EDT, Weight Dosing E&M of New Patient Moderate 45-59 Min 92604 Follow-up With When Contact Information [facility] Maricel De [place] [address] Business (1) Additional Instructions: our health professional will be contacting you for follow-up Patient Education Pelvic Pain, Female Problem List/Past Medical History Ongoing Anxiety Chronic bladder pain Chronic pelvic pain in female Deep venous thrombosis Endometriosis (clinical) Factor V deficiency Leukocytosis Migraine Recurrent vaginitis Historical No qualifying data Procedure/Surgical History Salpingectomy (01/07/2024), Thrombectomy (2023), H/O: hysterectomy, History of appendectomy, Laparoscope. Medications CV (more content not included)... [facility] Comment on above: Result Comment: Elec tronically Signed By: PRETTY KAUFFMAN PA-C\.shikha\Date and Time Signed: 08/08/24 12:41 EDT Clinical Note 08-08-2024 Note Date & Type Note Facility 08-08-2024 Note Patient Education Obstetrics and Gynecology Pelvic Pain, Female Pelvic pain is pain in your lower abdomen, below your belly button and between your hips. The pain may start suddenly (be acute), keep coming back (be recurring), or last a long time (become chronic). Pelvic pain that lasts longer than 6 months is considered chronic. Pelvic pain may affect your: ? Reproductive organs. ? Urinary system. ? Digestive tract. ? Musculoskeletal system. There are many potential causes of pelvic pain. Sometimes, the pain can be a result of digestive or urinary conditions, strained muscles or ligaments, or reproductive conditions. Sometimes the cause of pelvic pain is not known. Follow these instructions at home: ? Take yqrp-nvg-cryftqt and prescription medicines only as told by your health care provider. ? Rest as told by your health care provider. ? Do not have sex if it hurts. ? Keep a journal of your pelvic pain. Write down: ? When the pain started. ? Where the pain is located. ? What seems to make the pain better or worse, such as food or your monthly period (menstrual cycle). ? Any symptoms you have along with the pain. ? Keep all follow-up visits. This is important. Contact a health care provider if: ? Medicine does not help your pain, or your pain comes back. ? You have new symptoms. ? You have abnormal vaginal discharge or bleeding, including bleeding after menopause. ? You have a fever or chills. ? You are constipated. ? You have blood in your urine or stool (feces). ? You have foul-smelling urine. ? You feel weak or light-headed. Get help right away if: ? You have sudden severe pain. ? Your pain gets steadily worse. ? You have severe pain along with fever, nausea, vomiting, or excessive sweating. ? You lose consciousness. These symptoms may represent a serious problem that is an emergency. Do not wait to see if the symptoms will go away. Get medical help right away. Call your local emergency services (911 in the [place] Do not drive yourself to the hospital. Summary ? Pelvic pain is pain in your lower abdomen, below your belly button and between your hips. ? There are many potential causes of pelvic pain. ? Keep a journal of your pelvic pain. This information is not intended to replace advice given to you by your health care provider. Make sure you discuss any questions you have with your health care provider. Document Revised: 03/10/2022 Document Reviewed: 03/10/2022 Elsevier Patient Education ? 2023 [employer]. [facility] History of Present illness Narrative 02-10-2024 Jani Bridges MD - 02/10/2024 2:40 PM EDT Note Date & Type Note Facility 02-10-2024 History of Presen t illness Narrative Images from the original note were not included. [facility] [address] [facility] [address] Subjective: Patient ID: Kimberly Silverman is a [...] Problem List Diagnosis DVT (deep venous thrombosis) ([facility]) May-Thurner syndrome Current Outpatient Medications: [...] of iliac vein of left lower extremity ([facility]) May-Thurner syndrome Plan Plan: Cristóbal ARGUETA of the left iliac veins F/U in 3 months Jani Bridges MD, [place] documented in this encounter [facility] Evaluation + Plan note Note Date & Type Note Facility Evaluation + Plan note No data available for this section [facility] Evaluation note Note Date & Type Note Facility Evaluation note Diagnosis Acute deep vein thrombosis (DVT) of iliac vein of left lower extremity ([facility])- 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 Compression of vein documented in this encounter [facility] Instructions Note Date & Type Note Facility Instructions Not on filedocumented in this en counter [facility] Progress note Note Date & Type Note Facility Progress note No data available for this section [facility] [employer] Summary Purpose Family History No Family History Records FoundNo Family History Records FoundNo Family History Records FoundNo Family History Records FoundNo Family History Records Found No data available for this section No Family History Records Found Advance Directives No [...] Vas IVC/iliac duplex complete Jani Bridges MD [address], [place] [address] Referral ID Status Reason Start Date Expiration Date V isits Requested Visits Authorized [id number] Pending Review 02/11/2024 02/10/2025 1 1 Additional Source Comments INFORMATION SOURCE (unrecogn ized section and content) DATE CREATED AUTHOR 04/23/2023 [facility] DATE CREATED AUTHOR AUTHOR'S ORGANIZ ATION 01/16/2024 [facility] DATE CREATED AUTHOR AUTHOR'S ORGANIZ ATION 01/27/2024 [facility] DATE CREATED AUTHOR AUTHOR'S ORGANIZ ATION 05/31/2024 [facility] DATE CREATED AUTHOR AUTHOR'S ORGANIZ ATION 08/06/2024 [facility] EP[facility] DATE CREATED AUTHOR AUTHOR'S ORGANIZ ATION 08/09/2024 [facility] Reason for Visit (unrecogniz ed section and content) Reason Comments Follow-up Thrombectomy lle. DV T and iliac stenting. 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 [facility] [employer] provides no warranty or guarantee of the accuracy or completeness of information in this document.
[2024-09-02 06:09] LABS: Antistreptolysin O Ab 408.9 IU/mL (0.0-200.0)
[2024-09-04 14:09] LABS: Anti-dsDNA Antibodies 3 IU/mL (0-9)
== END 2024-09-01 11:43 | disposition home or self-care (01) ==
LOC: LAB 11:43
PROVIDERS: PCP Family Medicine; Visit Provider Family Medicine
DX: A25 Rat-bite fevers (principal)
CPT/HCPCS: 36415; 86060; 86225

== ENCOUNTER 2024-10-10 11:20 | Outpatient (OUT) | payer BC, SELFPAY ==
[2024-10-10 11:37] LABS: Basophils Percent Auto 0.4 % (0.2-2.0); Eosinophils Absolute Auto 0.1 10^3/uL (0.0-0.7); Eosinophils Percent Auto 1.9 % (0.9-7.0); Hematocrit 42.6 % (36.0-48.0); Hemoglobin 14.6 g/dL (12.0-16.0); Immature Granulocytes Abs Auto 0.02 10^3/uL (0.00-0.03); Immature Granulocytes Pct Auto 0.4 % (0.0-0.5); Lymphocytes Absolute Auto 2.5 10^3/uL (1.2-3.8); Lymphocytes Percent Auto 46.3 % (20.5-60.0); Mean Corpuscular HGB Conc 34.3 g/dL (29.9-35.2); Mean Corpuscular Hemoglobin 32.5 pg (26.7-34.0); Mean Corpuscular Volume 94.9 fL (81.0-99.0); Monocytes Absolute Auto 0.3 10^3/uL (0.3-0.8); Monocytes Percent Auto 6.1 % (1.7-12.0); Neutrophils Absolute Auto 2.4 10^3/uL (1.4-6.5); Neutrophils Percent Auto 44.9 % (43.0-75.0); Platelet Count 207 10^3/uL (150-450); Red Blood Count 4.49 10^6/uL (4.20-5.40); Red Cell Distribution Width 11.8 % (11.0-15.0); White Blood Count 5.4 10^3/uL (4.0-11.0)
[2024-10-10 12:29] LABS: Alanine Aminotransferase 30 U/L (14-59); Albumin Globulin Ratio 1.1; Albumin Level 3.9 g/dL (3.4-5.0); Alkaline Phosphatase 52 U/L (46-116); Anion Gap 14.4; Aspartate Amino Transferase 21 U/L (15-37); Bilirubin Total 0.6 mg/dL (0.2-1.0); Calcium 8.5 mg/dL (8.5-10.1); Carbon Dioxide 25.4 mmol/L (21.0-32.0); Chloride 104 mmol/L (98-107); Estimated GFR (African America >60 (>=60 mL/min/1.73m^2); Estimated GFR (Non-African Ame >60 (>=60 mL/min/1.73m^2); Globulin 3.4 g/dL; Glucose 77 mg/dL (74-106); Potassium 3.8 mmol/L (3.5-5.1); Sodium 140 mmol/L (136-145); Total Protein 7.3 g/dL (6.4-8.2); Uric Acid 3.6 mg/dL (2.6-6.0)
[2024-10-10 12:40] LABS: C Reactive Protein <0.50 mg/dL (<=0.50)
[2024-10-10 12:44] LABS: Erythrocyte Sedimentation Rate 4 mm/hr (<=20)
[2024-10-11 06:10] LABS: Antistreptolysin O Ab 433.4 IU/mL (0.0-200.0); Rheumatoid Factor (RF) <10.0 IU/mL (<14.0)
[2024-10-11 15:09] LABS: Antinuclear Antibodies, IFA Negative (.)
== END 2024-10-10 11:21 | disposition home or self-care (01) ==
LOC: LAB 11:21
PROVIDERS: PCP Family Medicine; Visit Provider Family Medicine
DX: I87.1 Compression of vein (principal)
CPT/HCPCS: 36415; 80053; 84550; 85025; 85652; 86038; 86060; 86140; 86431

== ENCOUNTER 2024-10-20 08:25 | Outpatient (OUT) | payer BC, SELFPAY ==
--- NOTE | 2024-10-20 08:28 | US_ITS ---
The [address] [address] Patient Name: KIMBERLY MCMAHON MRN: [id number] date: 1990 Sex: F Assigned Patient Location: Current Patient Location: LAB Accession/Order Number: [id number] Exam Date: 10/20/2024 08:30 Report Date: 10/20/2024 13:38 At the request of: USMAN RODRIGEZ Procedure: US renal bladder EXAMINATION: US renal bladder HISTORY: Elevated Anti Streptolysin O Antibodies R76.8 COMPARISON: No relevant comparison available. TECHNIQUE: Ultrasound examination was performed of the kidneys and urinary bladder. FINDINGS: RIGHT KIDNEY: No evidence of pelvocaliectasis, mass, or calculi. Normal parenchymal echogenicity. Color Doppler demonstrates blood flow within the kidney. Kidney: 9.7 x 3.8 x 4.5 cm LEFT KIDNEY: No evidence of pelvocaliectasis, mass, or calculi. Normal parenchymal echogenicity. Color Doppler demonstrates blood flow within the kidney. Kidney: 9.9 x 3.6 x 4.2 cm BLADDER: No visible wall thickening, mass, or calculi. Post void residual: 3 mL URETERAL JETS: Visualized bilaterally. US/US renal bladder IMPRESSION: 1. Normal ultrasound appearance of the kidneys and urinary bladder. Electronically authenticated by: PONCHO FABIAN Date: 10/20/2024 13:38
--- OUTSIDE RECORDS SUMMARY | 2024-10-20 08:31 | XMS_ITS | CCD ---
Author Organization [facility] Care Team Providers Care Manager Small Business Name Role Phone RAIN ., DR MARY Attending Unavailable HOY ., DR MARY Admitting Unavailable HOY ., DR MARY Primary Care Unavailable HOY ., DR MARY Consulting Unavailable SARAI WILKINS Consulting Unavailable LAVON ELIZALDE Consulting Unavailable SISTER, CUCA Consulting Unavailable ARTURO II, LUL Consulting Unavailable VERNELL ., DL Consulting Unavailable KARTARAN ., DR HENAO Admitting Unavailabl e KARASIFilipe ., DR HENAO Consulting Unavailabl e KARASIK ., DR HENAO Attending Unavailabl e HOY ., DR MARY Primary Care Unavailable ADDISON, MOHAMED F Admitting Unavailable ADDISON, MOHAMED F Attending Unavailable FLORA LAL Referring Unavailable DL BUCK Referring Unavailable STEPHEN STOKES Referring Unavailable PAUL CHACON Attending Unavailable ADDISON, MOHAMED F Attending Unavailable ADDISON, MOHAMED F Referring Unavailable Usman Alvarez MD Primary Care Provider [phone] SUYAPA BRIDGESAMED F Attending Unavailable USMAN ALVAREZ Primary Care Unavailable ADDISON, MOHAMED F Attending Unavailable DEVENDRA ALVAREZLAS M Referring Unavailable RAIN USMAN M Primary Care Unavailable ADDISON, MOHAMED F Attending Unavailable RAIN USMAN M Referring Unavailable RAIN USMAN M Primary Care Unavailable Usman Alvarez Primary Care Physician [phone] Usman Alvarez MD Primary Care Provider [phone] ANDRE TREVIÑO Attending Unavailable ANDERSON FRIED Attending Unavailable ANDRE TREVIÑO Attending Unavailable THERESA PEREZ Attending Unavailable ADELFO PEREZ Attending Unavailable USMAN ALVAREZ M Referring Unavailable THERESA PEREZ Attending Unavailable ANDRE TREVIÑO Attending Unavailable ANDERSON FRIED Attending Unavailable THERESA PEREZ Attending Unavailable ANDRE TREVIÑO Attending Unavailable RYAN, THERESA L Attending Unavailable HUDSON, ANDRE Attending Unavailable THERESA PEREZ Attending Unavailable Julien HOYOS Referring Unavailable XUAN KAUFFMAN Attending Unavailab XUAN Santiago Attending Unavailab Julien Walker Admitting Unavailable Julien HOYOS Attending Unavailable Julien HOYOS Referring Unavailable Julien HOYOS R Attending Unavailable HOYOS, Julien R Referring Unavailable Andre Treviño Admitting Unavailable Andre Treviño Attending Unavailable Sydnee Kauffman Admitting Unavailable Sydnee Kauffman Attending Unavailable Usman Alvarez Primary Care Unavailable Allergies Allergy Classification Reported Allergen(s) Allergy Type Date of Onset Reaction(s) Facility (1 source) No Known Medication Allergies; Translations: [No Known Medication Allergies] Propensity to adverse reactions (disorder) [facility] Repository Medications Current Medications Medication Drug Class(es) Dates Sig (Normalized) Sig (Original) acetaminophen 500 mg oral tablet (6 sources) Start: 01-25-2024 take 2 tablets by mouth every six hours acetaminophen (Tylenol) 500 MG tablet Take 1,000 mg by mouth every 6 (six) hours 01/25/2024 Active apixaban 5 mg oral tablet (9 sources) Factor Xa Inhibitor Start: 08-08-2024 Eliquis [...] take 1 tablet by mouth twice daily Eliquis DVT/PE Starter Pack 5 MG tablet therapy pack Take 2 tablets by mouth twice daily for 7 days, then take 1 tablet twice daily 01/25/2024 Active Start: 01-25-2024 take 2 tablets by mo uth twice daily, then take 1 tablet by mouth twice daily apixaban (ELIQUIS DVT-PE TREAT 30D START) 5 mg (74 tabs) tablets,dose pack tablet Take 2 tablets by mouth twice daily for 7 days, then take 1 tablet twice daily 74 tablet 0 01/25/2024 Active Aspirin (4 sources) Platelet Aggregation Inhibitor, Nonsteroidal Anti-inflammatory Drug Start: 08-08-2024 [facility] ASPIRIN [address] [facility] ASPIRIN 81 MG CHEWABLE TAB Start Date: [...] days. 30 tablet 0 01/25/2024 02/24/2024 Active cyclobenzaprine hydrochloride 10 mg oral tablet (2 sources) Muscle Relaxant Start: 09-04-2024 take 0.5 tablet by mouth three times daily as needed for pain cyclobenzaprine (Flexeril) 10 MG tablet Indications: Chronic bladder pain Take 0.5 tablets (5 mg) by mouth 3 (three) times a day as needed (pain) for up to 10 days 30 tablet 09/04/2024 Active diazePAM 5 mg oral tablet (2 sources) Benzodiazepine Start: 08-08-2024 Valium 5 mg Tab See Instructions, 1 tab po 30-60 mins prior to cystoscopy, # 1 tab(s), Refills(s) 0, Pharmacy: [facility]/pharmacy #[id number], 158, cm, 08/08/24 11:39:00 EDT, Height/Length Dosing, 60, kg, 08/08/24 11:39:00 EDT, Weight Dosing Start Date: 08/08/24 Status: Ordered Doxycycline (7 sources) Tetracycline-class Drug Start: 08-08-2024 doxycycline 100 mg Start Date: 08/08/24 Status: Ordered Start: 07-31-2024 End: 09-29-2024 doxycycline (Vibramycin) 100 MG capsule Indications: Chronic bladder pain Take 1 capsule (100 mg) by mouth in the morning and 1 capsule (100 mg) before bedtime. Take with at least 8 ounces (large glass) of water, do not lie down for 30 minutes after. 60 capsule 1 07/31/2024 09/29/2024 Ethinyl Estradiol / Levonorgestrel (1 source) Progestin, Estrogen, Progestin-containing Intrauterine Device take 1 tablet by mouth once in the morning levonorgestreL-ethinyl estrad (NORDETTE) 0.15-0.03 mg per tablet Take 1 tablet by mouth in the morning. 0 Active fluconazole 100 mg oral tablet (5 sources) Azole Antifungal Star t: 07-17 End: 08-16 take 1 tablet by mouth every other day fluconazole (Diflucan) 100 MG tablet Indications: Yeast infection Take 1 tablet (100 mg) by mouth every other day for 28 days 14 tablet 08/09/2024 09/06/2024 Active Start: 08-08-2024 Diflucan Start Date: 08/08/24 Status: Ordered gabapentin 300 mg oral capsule (7 sources) Anti-epileptic Agent Start: 05-26-2024 gabapentin (Neurontin) 300 MG capsule 1 capsule 05/26/2024 Active lactobacillus acidophilus [id number] unt / pectin 100 mg oral tablet (1 source) take 1 tablet by mouth once daily at breakfast acidophilus-pectin, citrus 25 million cell -100 mg tablet Take 1 tablet by mouth daily with breakfast. 0 Active Flagyl (2 sources) Nitroimidazole Antimicrobial Start: 08-08-2024 Flagyl Oral Start Date: 08/08/24 Status: Ordered 24 hr mirabegron 50 mg extended release oral tablet (1 source) beta3-Adrenergic Agonist Start: 10-03-2024 take 1 tablet by mouth once daily Myrbetriq 50 mg oral tablet, extended release 50 mg = 1 tab(s), Oral, Daily, # 30 tab(s), Refills(s) 6, Pharmacy: [facility]/pharmacy #[id number], 158, cm, 08/08/24 11:39:00 EDT, Height/Length Dosing, 60, kg, 08/08/24 11:39:00 EDT, Weight Dosing Start Date: 10/03/24 Status: Ordered Nataliias Margoth Probiotic (2 sources) Start: 08-08-2024 Luis Enrique's Margoth Probiotic Oral, Daily Start Date: 08/08/24 Status: Ordered ondansetron 4 mg disintegrating oral tablet (7 sources) Serotonin-3 Receptor Antagonist Start: 02-08-2024 take 1 tablet by mouth every six hours as needed for nausea and vomiting and nausea and nausea ondansetron ODT (Zofran-ODT) 4 MG disintegrating tablet Indications: Nausea Take 1 tablet (4 mg) by mouth every 6 (six) hours if needed for nausea or vomiting for up to 30 doses 30 tablet 1 02/08/2024 Active oxyCODONE hydrochloride 5 mg oral tablet [...] 20 mg 10 tablet 0 01/25/2024 Active phenazopyridine hydrochloride 100 mg oral tablet (5 sources) Start: 07-31-2024 phenazopyridine (Pyridium) 100 MG tablet Indications: Chronic bladder pain Take 1 tablet (100 mg) by mouth 3 (three) times a day as needed for bladder spasms for up to 9 doses 9 tablet 07/31/2024 Active Probiotic tablet delayed-release (5 sources) Probiotic tablet delayed-release 1 (one) time each day at the same time. Active Completed/Discontinued Medications Medication Drug Class(es) Dates Sig (Normalized) Sig (Original) ciprofloxacin 500 mg oral tablet (1 source) Quinolone Antimicrobial Start: 08-21-2024 take 1 tablet by mouth once daily Cipro 500 mg Tab 500 mg = 1 tab(s), Oral, Daily, Take 1 tablet the day before the procedure and 1 tablet after the procedure, # 2 tab(s), Refills(s) 0, Pharmacy: [facility]/pharmacy #[id number], 158, cm, 08/08/24 11:39:00 EDT, Height/Length Dosing, 60, kg, 08/08/24 11:39:00 EDT, Weight Dosing Start Date: 08/21/24 Status: Ordered Problems Active Problems Problem Classification Problem Date Documented Da te Episodic/Chronic Abdominal pain (12 sources) Unspecified abdominal pain; Translations: [Pelvic and perineal pain] Onset: 04-03-2023 Episodic Adjustment disorders (1 source) Adjustment disorder with depressed mood; Translations: [Adjustment disorder with depressed mood] 09-20-2024 Chronic Anxiety disorders (4 sources) Anxiety disorder, unspecified; Translations: [Anxiety] Onset: 04-08-2023 08-08-2024 Chronic Appendicitis and other appendiceal conditions (1 source) Unspecified acute appendicitis; Translations: [UNSPECIFIED ACUTE APPENDICITIS] Onset: 04-08-2023 Episodic Coagulation and hemorrhagic disorders (2 sources) 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 Diseases of white blood cells (2 sources) Leukocytosis 08-08-2024 Chronic Endometriosis (7 sources) Endometriosis (clinical); Translations: [Endometriosis, unspecified] Onset: 11-25-2023 08-08-2024 Chronic Genitourinary symptoms and ill-defined conditions (8 sources) Bladder pain; Translations: [Chronic bladder pain] Onset: 07-31-2024 Chronic Headache; including migraine (2 sources) Migraine 08-08-2024 Chronic Immunizations and screening for infectious disease (3 sources) Encounter for screening for human papillomavirus (HPV); Translations: [Exposure to sexually transmissible disorder] Onset: 07-26-2022 08-31-2024 Episodic Inflammatory diseases of female pelvic organs (3 sources) Acute vaginitis; Translations: [Acute vaginitis] Onset: 08-08-2024 Episodic Other diseases of veins and lymphatics (2 sources) Iliac vein compression syndrome; Translations: [Compression of vein] Onset: 02-11-2024 02-11-2024 Episodic Other female genital disorders (2 sources) Vaginal discharge; Translations: [Other specified noninflammatory disorders of vagina] 08-31-2024 Episodic Peripheral and visceral atherosclerosis (1 source) Unspecified atherosclerosis of [place] arteries of extremities, other extremity; Translations: [Unspecified atherosclerosis of [place] arteries of extremities, other extremity] Onset: 04-27-2024 Chronic Phlebitis; thrombophlebitis and thromboembolism (7 sources) Acute embolism and thrombosis of left [...] Classification Problem Date Documented Da te Episodic/Chronic Mood disorders (1 source) Mood disorders Onset: 01-23-2024 01-23-2024 Other diseases of veins and lymphatics (1 source) Compression of vein; Translations: [Compression of vein] Onset: 02-11-2024 Episodic Residual codes; unclassified (1 source) Pain, unspecified; Translations: [Pain, unspecified] Onset: 01-24-2024 Episodic Results Test Name Value Interpretation Reference Range Facility Main OR Intraoperative Recor don 10-03-2024 Main OR Intraoperative Record Main OR Intraoperative Record IntraOp Document Type FTURO Summary Primary Physician: Julien HOYSO MD Finalized Date/Time: 10/03/24 10:05:10 Pt. Name: TAWANA SILVERMAN/Sex: 1990 Female Med Rec #: [id number] Physician: Julien HOYOS MD Financial #: [id number] Pt. Type: O Room/Bed: / Admit/Disch: 10/03/24 08:53:48 - Institution: Case Times FTURO Entry 1 Patient Times In Room 10/03/24 09:43:00 Out Room 10/03/24 10:05:00 Procedure Times Start 10/03/24 09:55:00 Stop 10/03/24 10:00:00 Anesthesia Times Last Modified By: Sirisha CAROLINA, Elizabet Pearson 10/03/24 10:00:11 Case Attendance FTURO Entry 1 Entry 2 Entry 3 Case Attendee Julien HOYOS MDr RN, Elizabet Goldberg CST, Nel Pearson Role Performed Surgeon - Primary Studio Designer - Primary Scrub - Primary Time In 10/03/24 09:54:00 10/03/24 09:43:00 10/03/24 09:43:00 Time Out 10/03/24 10:05:00 10/03/24 10:05:00 10/03/24 10:05:00 Procedure CYSTOSCOPY LOCAL(.) CYSTOSCOPY LOCAL(.) CYSTOSCOPY LOCAL(.) Comments Last Modified By: Sirisha CAROLINA, Elizabet Grimm RN, Elizabet Grimm RN, Elizabet Pearson 10/03/24 Deepa P 10/03/24 Deepa P 10/03/24 10:00:12 10:00:12 10:00:12 Surgical Procedures FTURO Entry 1 Procedure Description Procedure CYSTOSCOPY LOCAL Modifiers . Surgeon Description CYSTOSCOPY, URETHRAL DILATION Primary Procedure Yes Primary Surgeon ROMAIN NAVARRO, Julien Smalls Start 10/03/24 09:55:00 Stop 10/03/24 10:00:00 Anesthesia Type Local Surgical Service Urology Wound Class 2 - Clean-Contaminated Last Modified By: Sirisha CAROLINA, Elizabet Pearson 10/03/24 10:00:05 General Case Data FTURO Pre-Care Text: Classifies surgical wound, implements aseptic technique, initiates traffic control Entry 1 Case Information OR URO 1 FT Case Level None Wound Class 2 - Clean-Contaminated Specialty Urology Preop Diagnosis BLADDER PAIN, PELVIC Postop Same As Preop Yes PAIN Postop Diagnosis BLADDER PAIN, PELVIC Outcomes Met? Yes PAIN Last Modified By: Sirisha CAROLINA, Elizabet Pearson 10/03/24 09:44:08 Post-Care Text: The patient is free from signs and symptoms of infection EU IntraOp - FTURO Pre-Care Text: Implements protective measures prior to operative or invasive procedure, confirms identity before the operative or invasive procedure, verifies operative procedure, surgical site, and laterality Entry 1 EU Perioperative Protocols Procedure(s) CYSTOSCOPY LOCAL(.) Patient Identity Birthday, ID Band Verified (select at Check, Patient least 2): Participation Consents / H and P H&P, Surgery/Procedure Operative Site N/A Verified Consent Marking Verified Surgical Site Yes Laterality Verified n/a Verified Procedure Verified Yes Correct Patient Yes Position Verified Availability Equipment, Medication Time Out Julien HOOYS MD, Verified (If Participants Sirisha CAROLINA, Elizabet Applicable) Yusuf Mosley CST, Kimberly A Time Out Complete 10/03/24 09:54:00 Allergies Reviewed? Yes Allergies Reviewed Self/Patient With Body Position Frog Legged Prep Area PERINEAL AREA Prep Agents Betadine Solution Skin. Condition Unable to Visualize Description PARTIALLY CLOTHED AND DRAPED Additional None Specimens Collected Vitals - EU Blood Pressure 109/72 Pulse 80 bpm Respirations 20 br/min SPO2 97 % I&O - EU Outcomes Met? Yes Last Modified By: Elizabet Grimm RN 10/03/24 09:56:32 Post-Care Text: The patient is free from signs and symptoms of injury caused by extraneous objects Sign Out FTURO Entry 1 Before Patient Leaves OR Nurse verbally Yes Nurse verbally Yes confirms with the confirms with the team the name of team that the procedure(s) instrument, sponge, recorded and needle counts are correct (or N/A) Nurse verbally n/a Nurse verbally n/a confirms with the confirms with the team how the team whether there specimen is labeled are any equipment (including patient problems to be name), if applicable addressed Sign Out Complete 10/03/24 10:00:00 Last Modified By: Elizabet Grimm RN 10/03/24 10:00:04 Case Comments Finalized By: Elizabet Grimm RN Document Signatures Signed By: Elizabet Grimm RN 10/03/24 10:[address] [facility] Main OR Preoperative Recordo n 10-03-2024 Main OR Preoperative Record Main OR Preoperative Record Holding Area Document Type FTURO Summary Primary Physician: Julien HOYOS MD Finalized Date/Time: 10/03/24 09:28:57 Pt. Name: TAWANA SILVERMAN/Sex: 1990 Female Med Rec #: [id number] Physician: Julien HOYOS MD Financial #: [id number] Pt. Type: O Room/Bed: / Admit/Disch: 10/03/24 08:53:48 - Institution: Case Times Holding FTURO Pre-Care Text: Verifies consent for planned procedure, identifies individual values and wishes concerning care, includes family members in perioperative teaching Secures patient's records' belongings, and valuables, maintains patient's dignity and privacy, and maintains patient confidentiality Entry 1 In Holding 10/03/24 09:27:00 Outcomes Met? Yes Last Modified By: Shalonda Jane LPN 10/03/24 09:27:55 Post-Care Text: The patient participates in decisions affecting his or her perioperative plan of care The patient's right to privacy is maintained Surgery Checklist FTURO Entry 1 Patient Birthday, ID Band Procedure Surgical Consent, With Identification: Check, Patient Verification: Patient Participation NPO after Midnight: n/a Personal Items: Glasses Limitations: up ad donavon Complaints of Pain: No Skin Integrity Intact, [place], Warm, & Dry Vitals - EU Blood Pressure 109/72 Pulse 80 bpm Respirations 20 br/min SPO2 97 % Additional None Specimens Collected Last Modified By: Shalonda Jane LPN 10/03/24 09:28:40 Finalized By: Shalonda Jane LPN Document Signatures Signed By: Shalonda Jane LPN 10/03/24 09:[address] [facility] Operative Reporton Operative Report Operative Report Patient: TAWANA SILVERMAN Age: 34 years Sex: Female : 1990 Associated Diagnoses: None Author: Julien HOYOS MD Procedure Operative Information Details: Date/ Time: 10/03/2024 10:09:00. 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 Post-Op Dx: Same. Anesthesia Type: Local. Procedure: Local Cystoscopy with Urethral Dilation. Complications: None. Risks/Benefits/Inform ed Consent: Surgical risks, benefits, details of the procedure have been explained to the patient, Full informed consent has been obtained. Intraoperative Information Prepped: Patient is brought back to the endoscopy suite, Patient is placed in modified dorso/lithotomy position, Patient prepped in the usual fashion with Betadine solution, 2% Xylocaine Jelly is placed per Urethra, After waiting several minutes the Cystoscope is introduced. The Urethra is: Tight. The Bladder is: No bladder tumors. No ANGEL. No A. V.. The ureteral orifices: Show efflux of clear urine. The Urethra was dilated to: 30 Pashto w/ sounds. Devices Implanted: None. Removal: Cystoscope is removed, The patient tolerated it well. Postoperative Information Discharge: Patient is discharged home with antibiotic coverage, Follow up arranged. She will start Myrbetriq 50 mg daily. Follow-up will be in [address] [facility] Comment on above: Result Comment: Elec tronically Signed By: ROMAIN NAVARRO, Julien Arana\Date and Time Signed: 10/03/24 10:11 EST BASIC METABOLIC PANLon 01-24 Anion gap [Moles/Vol] 7 mmol/L Normal 5-15 [facility] Comment on above: Performed By: #### C BCA PINR, 59530-4, BMP #### [facility] ([id number]) [address], [address] [place] [address] Calcium [Mass/Vol] 8.7 mg/dL Normal 8.5-10.5 [facility] Comment on above: Performed By: #### C BCA, PINR, 76430-5, BMP #### [facility] ([id number]) [address], [address] [place] [address] Chloride [Moles/Vol] 106 mmol/L Normal 98-109 [facility] Comment on above: Performed By: #### C BCA, PINR, 15868-7, BMP #### [facility] ([id number]) [address], [address] [place] [address] CO2 [Moles/Vol] 23 mmol/L Normal 22-32 [facility] Comment on above: Performed By: #### C BCA, PINR, 04498-9, BMP #### [facility] ([id number]) [address], [address] [place] [address] Creatinine [Mass/Vol] 0.57 mg/dL Normal 0.40-1.00 [facility] Comment on above: Result Comment: METH OD TRACEABLE TO IDMS STANDARD Performed By: #### C BCA, PINR, 55845-0, BMP #### [facility] ([id number]) [address] [place] [address] eGFR (CKD-EPI) NON-RACE DEPENDENT >90 Normal >59 [facility] Comment on above: Result Comment: Reported eGFR is based on the CKD-EPI 2020 equation that does not use a race coefficient. Performed By: #### C BCA, PINR, 31748-0, BMP #### [facility] ([id number]) [address], [facility] [address] [place] [address] Glucose [Mass/Vol] 139 mg/dL High 65-99 [facility] Comment on above: Performed By: #### C BCA, PINR, 47141-6, BMP #### [facility] ([id number]) [address] [place] [address] Potassium [Moles/Vol] 4.3 mmol/L Normal 3.5-5.0 [facility] Comment on above: Performed By: #### C BCA, PINR, 83893-7, BMP #### [facility] ([id number]) [address] [place] [address] Sodium [Moles/Vol] 136 mmol/L Normal 134-146 [facility] Comment on above: Performed By: #### C BCA, PINR, 25306-0, BMP #### [facility] ([id number]) [address] [place] [address] Urea nitrogen [Mass/Vol] 6 mg/dL Normal 5-23 [facility] Comment on above: Performed By: #### C BCA, PINR, 28725-4, BMP #### [facility] ([id number]) [address] [address] CBC AND AUTO DIFFon 01-25-20 24 ABSOLUTE BASOPHIL 0.0 X10E9/L Normal 0.0-0.2 [facility] Comment on above: Performed By: #### C SADAF WILLETT, 63220-9, BMP #### [facility] ([id number]) [address], [address] [place] [address] ABSOLUTE NEUTROPHIL 2.9 X10E9/L Normal 1.5-6.6 [facility] Comment on above: Performed By: #### C SADAF WILLETT, 98458-8, BMP #### [facility] ([id number]) [address], [address] [place] [address] Basophils/100 WBC (Bld) 0.1 % Normal [facility] Comment on above: Performed By: #### SADAF Langford BCA, 49484-3, BMP #### [facility] ([id number]) [address], [address] [place] [address] Eosinophils (Bld) [#/Vol] 0.0 10*3/uL Normal 0.0-0.4 [facility] Comment on above: Performed By: #### SADAF Langford BCA, 88957-8, BMP #### [facility] ([id number]) [address], [address] [place] [address] Eosinophils/100 WBC (Bld) 0.0 % Normal [facility] Comment on above: Performed By: #### SADAF Langford BCA, 30724-4, BMP #### [facility] ([id number]) [address], [address] [place] [address] Erythrocyte distribution width (RBC) [Ratio] 11.8 % Normal 11.5-15.0 [facility] Comment on above: Performed By: #### SADAF Langford BCA, 59184-4, BMP #### [facility] ([id number]) [address], [address] [place] [address] Hematocrit (Bld) [Volume fraction] 35.5 % Normal 35-47 [facility] Comment on above: Performed By: #### Anastasiya WILLETT PINR, 09493-4, BMP #### [facility] ([id number]) [address], [address] [place] [address] Hemoglobin (Bld) [Mass/Vol] 12.3 g/dL Normal 11.7-15.5 [facility] Comment on above: Performed By: #### C BRENNON PINSlim, 70058-6, BMP #### [facility] ([id number]) [address], [facility] [address] [place] [address] Lymphocytes (Bld) [#/Vol] 0.4 10*3/uL Low 1.0-3.5 [facility] Comment on above: Performed By: #### Anastasiya WILLETT PINR, 02571-1, BMP #### [facility] ([id number]) [address], [facility] [address] [place] [address] Lymphocytes/100 WBC (Bld) 13.1 % Normal [facility] Comment on above: Performed By: #### Anastasiya WILLETT PINR, 93999-9, BMP #### [facility] ([id number]) [address], [facility] [address] [place] [address] MCH (RBC) [Entitic mass] 32.3 pg Normal 27-34 [facility] Comment on above: Performed By: #### Anastasiya WILLETT PINR, 31372-7, BMP #### [facility] ([id number]) [address], [address] [place] [address] MCHC (RBC) [Mass/Vol] 34.6 g/dL Normal 32-36 [facility] Comment on above: Performed By: #### Anastasiya WILLETT PINR, 80016-7, BMP #### [facility] ([id number]) [address], [address] [place] [address] MCV (RBC) [Entitic vol] 94 fL Normal 80-100 [facility] Comment on above: Performed By: #### C BRENNON, PINR, 37478-7, BMP #### [facility] ([id number]) [address], [address] [place] [address] Monocytes (Bld) [#/Vol] 0.1 10*3/uL Normal 0-0.9 [facility] Comment on above: Performed By: #### C BRENNON, PINR, 35754-9, BMP #### [facility] ([id number]) [address], [address] [place] [address] Monocytes/100 WBC (Bld) 2.4 % Normal [facility] Comment on above: Performed By: #### Anastasiya WILLETT, PINR, 38922-2, BMP #### [facility] ([id number]) [address], [address] [place] [address] Neutrophils/100 WBC (Bld) 84.4 % Normal [facility] Comment on above: Performed By: #### C BRENNON, PINR, 83751-7, BMP #### [facility] ([id number]) [address], [address] [place] [address] Platelet mean volume (Bld) [Entitic vol] 9.1 fL Normal 7-12 [facility] Comment on above: Performed By: #### Anastasiya WILLETT, PINR, 51392-0, BMP #### [facility] ([id number]) [address], [address] [place] [address] Platelets (Bld) [#/Vol] 142 10*3/uL Low 150-450 [facility] Comment on above: Performed By: #### C BRENNON, PINR, 79936-1, BMP #### [facility] ([id number]) [address], [address] [place] [address] RBC COUNT 3.79 X10E12/L Low 3.80-5.20 [facility] Comment on above: Performed By: #### SADAF Langford BCA, 03185-0, BMP #### [facility] ([id number]) [address] [place] [address] WBC (Bld) [#/Vol] 3.4 10*3/uL Low 4.0-11.0 [facility] Comment on above: Performed By: #### SADAF Langford BCA, 27283-1, BMP #### [facility] ([id number]) [address], [address] [place] [address] Heparin unfractionated Chrom ogenic method Qn (PPP)on 01-25-2024 ANTI XA UFH 0.68 IU/mL Normal 0.30-0.70 [facility] Comment on above: Result Comment: Opti mal time for testing is 6 hrs post dosage This test is specific for monitoring patients on UFH, and is not recommended for use with other Anti-Xa medications. Performed By: #### SADAF Langford BCA, 67629-3, BMP #### [facility] ([id number]) [address], [address] [place] [address] ANTI CARDIOLIPIN AB IGG IGA IGMon 01-24-2024 MELBA IgA <2.0 Normal 0-19.9 [facility] Comment on above: Performed By: #### Doreen SHUKLA #### [facility] ([id number]) [address], [address] [place] [address] MELBA IgG <1.6 Normal 0-19.9 [facility] Comment on above: Performed By: #### Doreen SHUKLA #### [facility] ([id number]) [address], [address] [place] [address] MELBA IgM <1.5 Normal 0-19.9 [facility] Comment on above: Performed By: #### Doreen SHUKLA #### [facility] ([id number]) [address], [address] [place] [address] BASIC METABOLIC PANLon 01-23 Anion gap [Moles/Vol] 8 mmol/L Normal 5-15 [facility] Comment on above: Performed By: #### 3 274-8, CBCA, BMP #### [facility] ([id number]) [address], [facility] [address] [place] [address] Calcium [Mass/Vol] 8.0 mg/dL Low 8.5-10.5 [facility] Comment on above: Performed By: #### 3 274-8, CBCA, BMP #### [facility] ([id number]) [address], [facility] [address] [place] [address] Chloride [Moles/Vol] 106 mmol/L Normal 98-109 [facility] Comment on above: Performed By: #### 3 274-8, CBCA, BMP #### [facility] ([id number]) [address], [facility] [address] [place] [address] CO2 [Moles/Vol] 22 mmol/L Normal 22-32 [facility] Comment on above: Performed By: #### 3 274-8, CBCA, BMP #### [facility] ([id number]) [address], [address] [address] Creatinine [Mass/Vol] 0.53 mg/dL Normal 0.40-1.00 [facility] Comment on above: Result Comment: METH OD TRACEABLE TO IDMS STANDARD Performed By: #### 3 274-8, CBCA, BMP #### [facility] ([id number]) [address], [address] [address] eGFR (CKD-EPI) NON-RACE DEPENDENT >90 Normal >59 [facility] Comment on above: Result Comment: Reported eGFR is based on the CKD-EPI 2020 equation that does not use a race coefficient. Performed By: #### 3 274-8, CBCA, BMP #### [facility] ([id number]) [address], [address] [place] [address] Glucose [Mass/Vol] 76 mg/dL Normal 65-99 [facility] Comment on above: Performed By: #### 3 274-8, CBCA, BMP #### [facility] ([id number]) [address], [address] [place] [address] Potassium [Moles/Vol] 3.8 mmol/L Normal 3.5-5.0 [facility] Comment on above: Performed By: #### 3 274-8, CBCA, BMP #### [facility] ([id number]) [address], [address] [place] [address] Sodium [Moles/Vol] 136 mmol/L Normal 134-146 [facility] Comment on above: Performed By: #### 3 274-8, CBCA, BMP #### [facility] ([id number]) [address], [address] [place] [address] Urea nitrogen [Mass/Vol] 10 mg/dL Normal 5-23 [facility] Comment on above: Performed By: #### 3 274-8, CBCA, BMP #### [facility] ([id number]) [address], [address] [place] [address] BETA-2 GP1 AB PANELon 2023 BETA-2 GP1 IgA <2.0 Normal 0.0-19.9 [facility] Comment on above: Performed By: #### C BCA, PINR, 03151-9, BMP #### [facility] ([id number]) [address], [address] [place] [address] BETA-2 GP1 IgG <1.4 Normal 0.0-19.9 [facility] Comment on above: Performed By: #### C BCA, PINR, 20422-8, BMP #### [facility] ([id number]) [address], [address] [place] [address] BETA-2 GP1 IgM <1.5 Normal 0.0-19.9 [facility] Comment on above: Performed By: #### C PARDEEP WILLETTR, 22138-5, BMP #### [facility] ([id number]) [address], [address] [place] [address] CBC AND AUTO DIFFon 01-24-20 ABSOLUTE BASOPHIL 0.0 X10E9/L Normal 0.0-0.2 [facility] Comment on above: Performed By: #### 3 274-8, CBCA, BMP #### [facility] ([id number]) [address], [facility] [address] [place] [address] ABSOLUTE NEUTROPHIL 3.7 X10E9/L Normal 1.5-6.6 [facility] Comment on above: Performed By: #### 3 274-8, CBCA, BMP #### [facility] ([id number]) [address], [address] [place] [address] Basophils/100 WBC (Bld) 0.4 % Normal [facility] Comment on above: Performed By: #### 3 274-8, CBCA, BMP #### [facility] ([id number]) [address], [address] [address] Eosinophils (Bld) [#/Vol] 0.2 10*3/uL Normal 0.0-0.4 [facility] Comment on above: Performed By: #### 3 274-8, CBCA, BMP #### [facility] ([id number]) [address], [address] [address] Eosinophils/100 WBC (Bld) 2.9 % Normal [facility] Comment on above: Performed By: #### 3 274-8, CBCA, BMP #### [facility] ([id number]) [address], [address] [place] [address] Erythrocyte distribution width (RBC) [Ratio] 12.3 % Normal 11.5-15.0 [facility] Comment on above: Performed By: #### 3 274-8, CBCA, BMP #### [facility] ([id number]) [address], [address] [place] [address] Hematocrit (Bld) [Volume fraction] 36.4 % Normal 35-47 [facility] Comment on above: Performed By: #### 3 274-8, CBCA, BMP #### [facility] ([id number]) [address], [facility] [address] [place] [address] Hemoglobin (Bld) [Mass/Vol] 12.4 g/dL Normal 11.7-15.5 [facility] Comment on above: Performed By: #### 3 274-8, CBCA, BMP #### [facility] ([id number]) [address], [facility] [address] [place] [address] Lymphocytes (Bld) [#/Vol] 1.9 10*3/uL Normal 1.0-3.5 [facility] Comment on above: Performed By: #### 3 274-8, CBCA, BMP #### [facility] ([id number]) [address], [facility] [address] [place] [address] Lymphocytes/100 WBC (Bld) 29.7 % Normal [facility] Comment on above: Performed By: #### 3 274-8, CBCA, BMP #### [facility] ([id number]) [address], [address] [place] [address] MCH (RBC) [Entitic mass] 32.5 pg Normal 27-34 [facility] Comment on above: Performed By: #### 3 274-8, CBCA, BMP #### [facility] ([id number]) [address], [address] [place] [address] MCHC (RBC) [Mass/Vol] 34.2 g/dL Normal 32-36 [facility] Comment on above: Performed By: #### 3 274-8, CBCA, BMP #### [facility] ([id number]) [address], [address] [place] [address] MCV (RBC) [Entitic vol] 95 fL Normal 80-100 [facility] Comment on above: Performed By: #### 3 274-8, CBCA, BMP #### [facility] ([id number]) [address], [address] [place] [address] Monocytes (Bld) [#/Vol] 0.5 10*3/uL Normal 0-0.9 [facility] Comment on above: Performed By: #### 3 274-8, CBCA, BMP #### [facility] ([id number]) [address], [address] [place] [address] Monocytes/100 WBC (Bld) 8.2 % Normal [facility] Comment on above: Performed By: #### 3 274-8, CBCA, BMP #### [facility] ([id number]) [address], [address] [place] [address] Neutrophils/100 WBC (Bld) 58.8 % Normal [facility] Comment on above: Performed By: #### 3 274-8, CBCA, BMP #### [facility] ([id number]) [address], [address] [place] [address] Platelet mean volume (Bld) [Entitic vol] 8.7 fL Normal 7-12 [facility] Comment on above: Performed By: #### 3 274-8, CBCA, BMP #### [facility] ([id number]) [address], [address] [place] [address] Platelets (Bld) [#/Vol] 128 10*3/uL Low 150-450 [facility] Comment on above: Performed By: #### 3 274-8, CBCA, BMP #### [facility] ([id number]) [address], [address] [place] [address] RBC COUNT 3.83 X10E12/L Normal 3.80-5.20 [facility] Comment on above: Performed By: #### 3 274-8, CBCA, BMP #### [facility] ([id number]) [address], [address] [place] [address] WBC (Bld) [#/Vol] 6.4 10*3/uL Normal 4.0-11.0 [facility] Comment on above: Performed By: #### 3 274-8, CBCA, BMP #### [facility] ([id number]) [address], [address] [place] [address] Heparin unfractionated Chrom ogenic method Qn (PPP)on 01-24-2024 ANTI XA UFH 0.47 IU/mL Normal 0.30-0.70 [facility] Comment on above: Result Comment: Opti mal time for testing is 6 hrs post dosage This test is specific for monitoring patients on UFH, and is not recommended for use with other Anti-Xa medications. Performed By: #### 3 274-8, CBCA, BMP #### [facility] ([id number]) [address], [address] [address] dRVVT/dRVVT.excess phospholi pid Coag (PPP) [Ratio]on 01-24-2024 DILUTE VERONIKA'S VIPER VENOM Negative Normal [facility] Comment on above: Performed By: #### C BCA, PINR, 79619-7, BMP #### [facility] ([id number]) [address] [address] BASIC METABOLIC PANLon 01-22 Anion gap [Moles/Vol] 11 mmol/L Normal 5-15 [facility] Comment on above: Performed By: #### C BCA, PINR, 54963-4, BMP #### [facility] ([id number]) [address], [address] [place] [address] Calcium [Mass/Vol] 8.3 mg/dL Low 8.5-10.5 [facility] Comment on above: Performed By: #### C BCA, PINR, 33037-7, BMP #### [facility] ([id number]) [address], [address] [place] [address] Chloride [Moles/Vol] 106 mmol/L Normal 98-109 [facility] Comment on above: Performed By: #### C BCA, PINR, 81464-7, BMP #### [facility] ([id number]) [address], [facility] [address] [place] [address] CO2 [Moles/Vol] 21 mmol/L Low 22-32 [facility] Comment on above: Performed By: #### C BCA, PINR, 31056-9, BMP #### [facility] ([id number]) [address], [address] [place] [address] Creatinine [Mass/Vol] 0.65 mg/dL Normal 0.40-1.00 [facility] Comment on above: Result Comment: METH OD TRACEABLE TO IDMS STANDARD Performed By: #### C BCA, PINR, 26436-2, BMP #### [facility] ([id number]) [address] [address] [place] [address] eGFR (CKD-EPI) NON-RACE DEPENDENT >90 Normal >59 [facility] Comment on above: Result Comment: Reported eGFR is based on the CKD-EPI 2020 equation that does not use a race coefficient. Performed By: #### C BCA, PINR, 26665-2, BMP #### [facility] ([id number]) [address], [address] [place] [address] Glucose [Mass/Vol] 78 mg/dL Normal 65-99 [facility] Comment on above: Performed By: #### C BCA, PINR, 71061-5, BMP #### [facility] ([id number]) [address], [address] [place] [address] Potassium [Moles/Vol] 3.9 mmol/L Normal 3.5-5.0 [facility] Comment on above: Performed By: #### C BRENNON, PINR, 71362-5, BMP #### [facility] ([id number]) [address], [address] [place] [address] Sodium [Moles/Vol] 138 mmol/L Normal 134-146 [facility] Comment on above: Performed By: #### C BRENNON, PINR, 82676-8, BMP #### [facility] ([id number]) [address] [place] [address] Urea nitrogen [Mass/Vol] 11 mg/dL Normal 5-23 [facility] Comment on above: Performed By: #### C BRENNON, PINR, 63664-7, BMP #### [facility] ([id number]) [address], [address] [place] [address] CBC AND AUTO DIFFon 0310-20 24 ABSOLUTE BASOPHIL 0.0 X10E9/L Normal 0.0-0.2 [facility] Comment on above: Performed By: #### C BRENNON PINR, 36505-7, BMP #### [facility] ([id number]) [address], [address] [place] [address] ABSOLUTE NEUTROPHIL 6.6 X10E9/L Normal 1.5-6.6 [facility] Comment on above: Performed By: #### C BRENNON, PINR, 11426-7, BMP #### [facility] ([id number]) [address], [address] [place] [address] Basophils/100 WBC (Bld) 0.3 % Normal [facility] Comment on above: Performed By: #### C BCA, PINR, 84735-0, BMP #### [facility] ([id number]) [address], [address] [place] [address] Eosinophils (Bld) [#/Vol] 0.1 10*3/uL Normal 0.0-0.4 [facility] Comment on above: Performed By: #### C BRENNON PINSlim, 78152-8, BMP #### [facility] ([id number]) [address], [facility] [address] [place] [address] Eosinophils/100 WBC (Bld) 0.8 % Normal [facility] Comment on above: Performed By: #### Anastasiya WILLETT PINSlim, 22566-5, BMP #### [facility] ([id number]) [address], [facility] [address] [place] [address] Erythrocyte distribution width (RBC) [Ratio] 12.4 % Normal 11.5-15.0 [facility] Comment on above: Performed By: #### Anastasiya WILLETT PINR, 24049-6, BMP #### [facility] ([id number]) [address], [facility] [address] [place] [address] Hematocrit (Bld) [Volume fraction] 39.4 % Normal 35-47 [facility] Comment on above: Performed By: #### Anastasiya WILLETT PINSlim, 50852-5, BMP #### [facility] ([id number]) [address], [facility] [address] [place] [address] Hemoglobin (Bld) [Mass/Vol] 13.8 g/dL Normal 11.7-15.5 [facility] Comment on above: Performed By: #### Anastasiya WILLETT PINR, 66397-6, BMP #### [facility] ([id number]) [address], [facility] [address] [place] [address] Lymphocytes (Bld) [#/Vol] 1.9 10*3/uL Normal 1.0-3.5 [facility] Comment on above: Performed By: #### C BCA, PINR, 07144-7, BMP #### [facility] ([id number]) [address], [address] [place] [address] Lymphocytes/100 WBC (Bld) 20.6 % Normal [facility] Comment on above: Performed By: #### C BRENNON, PINR, 81253-5, BMP #### [facility] ([id number]) [address] [place] [address] MCH (RBC) [Entitic mass] 32.7 pg Normal 27-34 [facility] Comment on above: Performed By: #### C BRENNON, PINR, 84933-1, BMP #### [facility] ([id number]) [address], [address] [place] [address] MCHC (RBC) [Mass/Vol] 34.9 g/dL Normal 32-36 [facility] Comment on above: Performed By: #### C BCA, PINR, 50898-9, BMP #### [facility] ([id number]) [address], [address] [place] [address] MCV (RBC) [Entitic vol] 94 fL Normal 80-100 [facility] Comment on above: Performed By: #### C BRENNON, PINR, 40172-8, BMP #### [facility] ([id number]) [address] [place] [address] Monocytes (Bld) [#/Vol] 0.6 10*3/uL Normal 0-0.9 [facility] Comment on above: Performed By: #### C BRENNON, PINR, 42658-8, BMP #### [facility] ([id number]) [address] [place] [address] Monocytes/100 WBC (Bld) 6.0 % Normal [facility] Comment on above: Performed By: #### C BCA, PINR, 63554-6, BMP #### [facility] ([id number]) [address], [address] [place] [address] Neutrophils/100 WBC (Bld) 72.3 % Normal [facility] Comment on above: Performed By: #### C BCA, PINR, 26928-4, BMP #### [facility] ([id number]) [address], [address] [place] [address] Platelet mean volume (Bld) [Entitic vol] 8.4 fL Normal 7-12 [facility] Comment on above: Performed By: #### C BRENNON, PINR, 42716-4, BMP #### [facility] ([id number]) [address], [address] [place] [address] Platelets (Bld) [#/Vol] 156 10*3/uL Normal 150-450 [facility] Comment on above: Performed By: #### C BRENNON, PINR, 22061-1, BMP #### [facility] ([id number]) [address], [address] [place] [address] RBC COUNT 4.21 X10E12/L Normal 3.80-5.20 [facility] Comment on above: Performed By: #### C BRENNON, PINR, 62527-5, BMP #### [facility] ([id number]) [address], [address] [place] [address] WBC (Bld) [#/Vol] 9.1 10*3/uL Normal 4.0-11.0 [facility] Comment on above: Performed By: #### C BCA, PINR, 36279-7, BMP #### [facility] ([id number]) [address], [address] [place] [address] CT CTV ABD AND PELVISon 01-13 CT [...] Hill MD on 01/23/2024 4:56 PM Normal [facility] Heparin unfractionated Chrom ogenic method Qn (PPP)on 01-23-2024 ANTI XA UFH 0.44 IU/mL Normal 0.30-0.70 [facility] Comment on above: Result Comment: Opti mal time for testing is 6 hrs post dosage This test is specific for monitoring patients on UFH, and is not recommended for use with other Anti-Xa medications. Performed By: #### 3 274-8 #### [facility] ([id number]) [address] [place] [address] PROTIME AND INRon 01-23-2024 INR Coag (PPP) [Relative time] 1.1 {INR} Normal 0.8-1.1 [facility] Comment on above: Performed By: #### C BRENNON, PINR, 75526-7, [facility] #### [facility] ([id number]) [address] [place] [address] PT Coag (PPP) [Time] 12.3 s Normal 9.8-13.2 [facility] Comment on above: Performed By: #### C BCA, PINR, 60813-3, BMP #### [facility] ([id number]) [address], [address] [place] [address] aPTT Coag (PPP) [Time]on aPTT Coag (Bld) [Time] 51 s High 26-37 [facility] Comment on above: Performed By: #### C BCA, PINR, 36405-6, BMP #### [facility] ([id number]) [address] [place] [address] Angelito 01-07-2024 L Specimen: [id number] Received: 01/10/24 Status: MICHAEL Waldron Num: [id number] Spec Type: Surgical Subm Dr: Andre Treviño Tissues: A Fallopian Tube - Sterilization (BILATERAL) Procedures: HE/3, Gross/Micro L2 Age/ Patient Sex Location Account Attending Physician Tawana Silverman 33/F [facility] [id number] Andre Trevñio SPEC NUM: [id number] RECD: 01/10/24 STATUS: MICHAEL WALDRON NUM: [id number] ANICETO: 01/07/[address] [facility] [address]: Andre Treviño ENTERED: 01/10/[address] [facility] [address]: Lopez,Lab SPEC TYPE: Surgical DEPT: [...] markedly dilated lumens throughout all 3 segments. [employer] sections are submitted in 3 cassettes as follows: A1 - Cross-sections of shortest segment A2 - Cross-sections intermediate length segment A3 - Cross-sections longest segment CPT Codes 26741 -------- -------- Specimen: [id number] Received: 01/10/24 Status: MICHAEL Waldron Num: [id number] Spec Type: Surgical Subm Dr: Andre Treviño Tissues: A Fallopian Tube - Sterilization (BILATERAL) Procedures: HE/3, Gross/Micro L2 -------- Patient: Tawana Silverman [id number] (Continued) -------- Signed (signature on file) Jani Garcia MD 01/15/24 0853 Normal [facility] AMYLASEon 04-03-2023 Amylase [Catalytic activity/Vol] 62 U/L Normal 25-[address] [facility] Comment on above: Performed By: #### L IPA, ANDERSON ####[facility] [id number] [id number]. Reece Garg CBC AUTO DIFFon 04-03-2023 BASO # 0.0 103/ul Normal 0.0-0.1 [facility] Comment on above: Performed By: #### C BC #### [facility] [address] [address] [address] Reece Garg Basophils/100 WBC (Bld) 0.3 % Normal 0.2-2.0 [facility] Comment on above: Performed By: #### C BC #### [facility] [address] [address] [address] Reece Garg EO # 0.1 103/ul Normal 0.0-0.7 [facility] Comment on above: Performed By: #### C BC #### [facility] [address] [address] [address] Reece Garg Eosinophils/100 WBC (Bld) 0.6 % Critically low 0.9-7.0 [facility] Comment on above: Performed By: #### C BC #### [facility] [address] [address] [address] Reece Garg Erythrocyte distribution width (RBC) [Ratio] 11.9 % Normal 11.0-15.0 [facility] Comment on above: Performed By: #### C BC #### [facility] [address] [address] [address] Reece Garg Hematocrit (Bld) [Volume fraction] 37.7 % Normal 36.0-48.0 [facility] Comment on above: Performed By: #### C BC #### [facility] [address] [address] [address] Reece Garg Hemoglobin (Bld) [Mass/Vol] 12.9 g/dL Normal 12.0-16.0 [facility] Comment on above: Performed By: #### C BC #### [facility] [address] [address] [address] Reece Garg IG # 0.05 10e3/ul Critically high 0.00-0.03 [facility] Comment on above: Performed By: #### C BC #### [facility] [address] [place] [address] Dr. Reece Garg IG % 0.4 % Normal 0.0-0.5 [facility] Comment on above: Performed By: #### C BC #### [facility] [address] [place] [address] Dr. Reece Garg LYMPH # 2.3 103/ul Normal 1.2-3.[address] [facility] Comment on above: Performed By: #### C BC #### [facility] [address] [place] [address] Dr. Reece Garg Lymphocytes/100 WBC (Bld) 20.8 % Normal 20.5-60.0 [facility] Comment on above: Performed By: #### C BC #### [facility] [address] [place] [address] Dr. Reece Garg MANUAL DIFF REQ NO Normal [facility] Comment on above: Performed By: #### C BC #### [facility] [address] [place] [address] Dr. Reece Garg MCH (RBC) [Entitic mass] 32.3 pg Normal 26.7-34.0 [facility] Comment on above: Performed By: #### C BC #### [facility] [address] [place] [address] Dr. Reece Garg MCHC (RBC) [Mass/Vol] 34.2 g/dL Normal 29.9-35.2 [facility] Comment on above: Performed By: #### C BC #### [facility] [address] [place] [address] Dr. Reece Garg MCV (RBC) [Entitic vol] 94.3 fL Normal 81.0-99.[address] [facility] Comment on above: Performed By: #### C BC #### [facility] [address] [place] [address] Dr. Reece Garg MONO # 0.6 103/ul Normal 0.3-0.[address] [facility] Comment on above: Performed By: #### C BC #### [facility] [address] [place] [address] Dr. Reece Garg Monocytes/100 WBC (Bld) 5.3 % Normal 1.7-12.[address] [facility] Comment on above: Performed By: #### C BC #### [facility] [address] [place] [address] Dr. Reece Garg NEUT # 8.1 103/ul Critically high 1.4-6.5 [facility] Comment on above: Performed By: #### C BC #### [facility] [address] [place] [address] Dr. Reece Garg Neutrophils/100 WBC (Bld) 72.6 % Normal 43.0-75.[address] [facility] Comment on above: Performed By: #### C BC #### [facility] [address] [place] [address] Dr. Reece Garg Platelet mean volume (Bld) [Entitic vol] 10.2 fL Normal 9.5-13.[address] [facility] Comment on above: Performed By: #### C BC #### [facility] [address] [place] [address] Dr. Reece Garg PLT 163 103/ul Normal 150-[address] [facility] Comment on above: Performed By: #### C BC #### [facility] [address] [place], [place] [id number] Dr. Reece Garg RBC 4.00 106/ul Critically low 4.20-5.40 [facility] Comment on above: Performed By: #### C BC #### [facility] [address] [place] [address] Dr. Reece Garg WBC 11.1 103/ul Critically high 4.0-11.0 [facility] Comment on above: Performed By: #### C BC #### [facility] [address] [place] [address] Dr. Reece Garg BASO # 0.0 103/ul Normal 0.0-0.1 [facility] Comment on above: Performed By: #### C BC #### [facility] [address] [place] [address] Dr. Reece Garg Basophils/100 WBC (Bld) 0.3 % Normal 0.2-2.0 [facility] Comment on above: Performed By: #### C BC #### [facility] [address] [place] [address] Dr. Reece Garg EO # 0.1 103/ul Normal 0.0-0.7 [facility] Comment on above: Performed By: #### C BC #### [facility] [address] [place] [address] Dr. Reece Garg Eosinophils/100 WBC (Bld) 0.7 % Critically low 0.9-7.0 [facility] Comment on above: Performed By: #### C BC #### [facility] [address] [place] [address] Dr. Reece Garg Erythrocyte distribution width (RBC) [Ratio] 12.0 % Normal 11.0-15.0 [facility] Comment on above: Performed By: #### C BC #### [facility] [address] [place] [address] Dr. Reece Garg Hematocrit (Bld) [Volume fraction] 41.4 % Normal 36.0-48.0 [facility] Comment on above: Performed By: #### C BC #### [facility] [address] [place] [address] Dr. Reece Garg Hemoglobin (Bld) [Mass/Vol] 14.3 g/dL Normal 12.0-16.0 [facility] Comment on above: Performed By: #### C BC #### [facility] [address] [place] [address] Dr. Reece Garg IG # 0.05 10e3/ul Critically high 0.00-0.03 [facility] Comment on above: Performed By: #### C BC #### [facility] [address] [place] [address] Dr. Reece Garg IG % 0.3 % Normal 0.0-0.5 [facility] Comment on above: Performed By: #### C BC #### [facility] [address] [place] [address] Dr. Reece Garg LYMPH # 1.6 103/ul Normal 1.2-3.8 [facility] Comment on above: Performed By: #### C BC #### [facility] [address] [place] [address] Dr. Reece Garg Lymphocytes/100 WBC (Bld) 10.6 % Critically low 20.5-60.0 [facility] Comment on above: Performed By: #### C BC #### [facility] [address] [place] [address] Dr. Reece Garg MANUAL DIFF REQ NO Normal [facility] Comment on above: Performed By: #### C BC #### [facility] [address] [place] [address] Dr. Reece Garg MCH (RBC) [Entitic mass] 32.1 pg Normal 26.7-34.0 [facility] Comment on above: Performed By: #### C BC #### [facility] [address] [place] [address] Dr. Reece Garg MCHC (RBC) [Mass/Vol] 34.5 g/dL Normal 29.9-35.2 [facility] Comment on above: Performed By: #### C BC #### [facility] [address] [place] [address] Dr. Reece Garg MCV (RBC) [Entitic vol] 93.0 fL Normal 81.0-99.0 [facility] Comment on above: Performed By: #### C BC #### [facility] [address] [place] [address] Dr. Reece Garg MONO # 0.7 103/ul Normal 0.3-0.8 [facility] Comment on above: Performed By: #### C BC #### [facility] [address] [place] [address] Dr. Reece Garg Monocytes/100 WBC (Bld) 4.7 % Normal 1.7-12.0 [facility] Comment on above: Performed By: #### C BC #### [facility] [address] [place] [address] Dr. Reece Garg NEUT # 12.9 103/ul Critically high 1.4-6.5 [facility] Comment on above: Performed By: #### C BC #### [facility] [address] [place] [address] Dr. Reece Garg Neutrophils/100 WBC (Bld) 83.4 % Critically high 43.0-75.0 [facility] Comment on above: Performed By: #### C BC #### [facility] [address] [place] [address] Dr. Reece Garg Platelet mean volume (Bld) [Entitic vol] 10.4 fL Normal 9.5-13.5 [facility] Comment on above: Performed By: #### C BC #### [facility] [address] [place] [address] Dr. Reece Garg PLT 194 103/ul Normal 150-[address] [facility] Comment on above: Performed By: #### C BC #### [facility] [address] [place] [address] Dr. Reece Garg RBC 4.45 106/ul Normal 4.20-5.[address] [facility] Comment on above: Performed By: #### C BC #### [facility] [address] [place] [address] Dr. Reece Garg WBC 15.4 103/ul Critically high 4.0-11.0 [facility] Comment on above: Performed By: #### C BC #### [facility] [address] [place] [address] ABD/PELV W CONon [...] Bilirubin Ql (U) Negative Normal NEGATIVE [facility] Comment on above: Performed By: #### P MARY ERUR #### [facility] [address] [place], [place] [address] Dr. Reece Garg Clarity (U) CLEAR Normal CLEAR [facility] Comment on above: Performed By: #### P MARY, ERUR #### [facility] [address] [address] [address] Reece Garg Color (U) LT. YELLOW Normal YELLOW [facility] Comment on above: Performed By: #### P REGU, ERUR #### [facility] [address] [place] [address] Dr. Reece KHAN A micrscopic examination will be performed if indicated. Normal [facility] Comment on above: Performed By: #### P REGU, ERUR #### [facility] [address] [address] [address] Reece Garg Glucose Ql (U) Negative Normal NEGATIVE [facility] Comment on above: Performed By: #### P REGU, ERUR #### [facility] [address] [place] [address] Dr. Reece Garg Hemoglobin Ql (U) Negative Normal NEGATIVE [facility] Comment on above: Performed By: #### P REGU, ERUR #### [facility] [address] [place] [address] Dr. Reece Garg Ketones Ql (U) 15 mg/dl Abnormal NEGATIVE [facility] Comment on above: Performed By: #### P REGU, ERUR #### [facility] [address] [place] [address] Dr. Reece Garg LEUKOCYTES Negative Normal NEGATIVE [facility] Comment on above: Performed By: #### P REGU, ERUR #### [facility] [address] [place] [address] Dr. Reece Garg Nitrite Ql (U) Negative Normal NEGATIVE [facility] Comment on above: Performed By: #### P REGU, ERUR #### [facility] [address] [place] [address] Dr. Reece Garg pH (U) 5.5 [pH] Normal 5-9 [facility] Comment on above: Performed By: #### P REGU, ERUR #### [facility] [address] [place] [address] Dr. Reece Garg SPEC GRAVITY <=1.005 Abnormal 1.005-<=1.025 [facility] Comment on above: Performed By: #### P REGU, ERUR #### [facility] [address] [address] [address] Reece Garg UA PROTEIN Negative Normal NEGATIVE/ TRACE [facility] Comment on above: Performed By: #### P REGU, ERUR #### [facility] [address] [address] [address] Reece Garg UR MICRO IND NOT INDICATED Normal [facility] Comment on above: Performed By: #### P REGU, ERUR #### [facility] [address] [address] [address] Reece Garg Urobilinogen Qn (U) 0.2 {Dariel'U}/dL Normal 0.2 - 1. 0 [facility] Comment on above: Performed By: #### P REGU, ERUR #### [facility] [address] [place] [address] Dr. Reece Garg LIPASEon 04-03-2023 Lipase [Catalytic activity/Vol] 62.0 U/L Critically low 73.0-393.0 [facility] Comment on above: Performed By: #### L IPA, ANDERSON ####[facility] [id number] [address]. Reece Garg MONOon 04-03-2023 Monocytes (Bld) [#/Vol] Negative Normal NEGATIVE [facility] Comment on above: Performed By: #### M JOSE DANIEL #### [facility] [address] [address] [address] Reece Garg URon 04-03-2023 , QUAL Negative Normal NEGATIVE [facility] Comment on above: Performed By: #### P REGU, ERUR #### [facility] [address] [address] [address] Reece Garg PROF 14(COMP METB)on 023 Albumin [Mass/Vol] 3.3 g/dL Critically low 3.4-5.0 [facility] Comment on above: Performed By: #### C MP #### [facility] [address] [place] [address] Dr. Reece Garg Albumin/Globulin [Mass ratio] 1.0 {ratio} Normal [facility] Comment on above: Performed By: #### C MP #### [facility] [address] [place] [address] Dr. Reece Garg ALP [Catalytic activity/Vol] 38 U/L Critically low 46-116 [facility] Comment on above: Performed By: #### C MP #### [facility] [address] [place] [address] Dr. Reece Garg ALT [Catalytic activity/Vol] 16 U/L Normal 14-59 [facility] Comment on above: Performed By: #### C MP #### [facility] [address] [place] [address] Dr. Reece Garg Anion gap [Moles/Vol] 10.7 mmol/L Normal [facility] Comment on above: Performed By: #### C MP #### [facility] [address] [place] [address] Dr. Reece Garg AST [Catalytic activity/Vol] 10 U/L Critically low 15-37 [facility] Comment on above: Performed By: #### C MP #### [facility] [address] [place] [address] Dr. Reece Garg Bilirubin [Mass/Vol] 1.0 mg/dL Normal 0.2-1.0 [facility] Comment on above: Performed By: #### C MP #### [facility] [address] [place] [address] Dr. Reece Garg Calcium [Mass/Vol] 8.2 mg/dL Critically low 8.5-10.[address] [facility] Comment on above: Performed By: #### C MP #### [facility] [address] [place] [address] Dr. Reece Garg Chloride [Moles/Vol] 106 mmol/L Normal 98-107 [facility] Comment on above: Performed By: #### C MP #### [facility] [address] [place] [address] Dr. Reece Garg CO2 [Moles/Vol] 27.0 mmol/L Normal 21.0-32.0 [facility] Comment on above: Performed By: #### C MP #### [facility] [address] [address] [address] Reece Garg Creatinine [Mass/Vol] 0.77 mg/dL Normal 0.55-1.[address] [facility] Comment on above: Performed By: #### C MP #### [facility] [address] [address] [address] Reece Garg EGFR-AF NAMIBIAN >60 Normal >=60 [facility] Comment on above: Performed By: #### C MP #### [facility] [address] [address] [address] Reece Garg EGFR-NON AF NAMIBIAN >60 Normal >=60 [facility] Comment on above: Performed By: #### C MP #### [facility] [address] [place] [address] Dr. Reece Garg Globulin (S) [Mass/Vol] 3.3 g/dL Normal [facility] Comment on above: Performed By: #### C MP #### [facility] [address] [place] [address] Dr. Reece Garg Glucose [Mass/Vol] 102 mg/dL Normal 74-106 [facility] Comment on above: Performed By: #### C MP #### [facility] [address] [place] [address] Dr. Reece Garg Potassium [Moles/Vol] 3.7 mmol/L Normal 3.5-5.[address] [facility] Comment on above: Performed By: #### C MP #### [facility] [address] [place] [address] Dr. Reece Garg Protein [Mass/Vol] 6.6 g/dL Normal 6.4-8.2 [facility] Comment on above: Performed By: #### C MP #### [facility] [address] [place] [address] Dr. Reece Garg Sodium [Moles/Vol] 140 mmol/L Normal 136-145 [facility] Comment on above: Performed By: #### C MP #### [facility] [address] [place] [address] Dr. Reece Garg Urea nitrogen [Mass/Vol] 8.0 mg/dL Normal 7.0-18.[address] [facility] Comment on above: Performed By: #### C MP #### [facility] [address] [place] [address] Dr. Reece Garg Urea nitrogen/Creatinine [Mass ratio] 10.4 mg/mg Normal [facility] Comment on above: Performed By: #### C MP #### [facility] [address] [place] [address] Dr. Reece Garg PROTIMEon 04-03-2023 INR Coag (PPP) [Relative time] 1.06 {INR} Normal [facility] Comment on above: Performed By: #### P TT, PT #### [facility] [address] [place] [address] Dr. Reece Garg INR GUIDELINES SEE BELOW Normal [facility] Comment on above: Result Comment: JJ RED INR: 2.0 - 3.0 CONDITIONS NOT LISTED BELOW 2.5 - 3.5 FOR PROSTHETIC HEART VALVE REPLACEMENT 2.5 - 3.5 RECURRENT THROMBOSIS Performed By: #### P TT, PT #### [facility] [address] [place] [address] Dr. Reece Garg PT Coag (PPP) [Time] 11.2 s Normal 9.0-11.6 [facility] Comment on above: Performed By: #### P TT, PT #### [facility] [address] [place] [address] Dr. Reece Garg PTTon 04-03-2023 aPTT Coag (Bld) [Time] 28.1 s Normal 22.3-36.[address] [facility] Comment on above: Performed By: #### P TT, PT #### [facility] [address] [place] [address] Dr. Reece Garg PAP ACOG PANEL 2: 30 to 65on 07-28-2022 . . Normal [facility] Comment on above: Result Comment: Perf ormed at: WB Performed By: #### [id number] ####[facility] [id number] [id number]. Reece Garg Age Gdln ACOG Testing 30-65 Normal [facility] Comment on above: Performed By: #### [id number] ####[facility] [id number] [id number] Reece Garg DIAGNOSIS: Comment Normal [facility] Comment on above: Result Comment: NEGA TIVE FOR INTRAEPITHELIAL LESION OR MALIGNANCY. Performed at: WB Performed By: #### [id number] ####[facility] [id number] [id number]. Reece Garg HPV Aptima Negative Normal Negative [facility] Comment on above: Result Comment: This nucleic acid amplification test detects fourteen high-risk HPV types (16,18,31,33,35,39,45,51,52,56,58,59,66,68) without differentiation. Performed at: =G Performed By: #### [id number] ####[facility] [id number] [place], [place] [address]Dr. Reece Garg Methodology: Comment Normal [facility] Comment on above: Result Comment: This liquid based ThinPrep(R) pap test was screened with the use of an image guided system. Performed at: WB Performed By: #### [id number] ####[facility] [id number] [id number]. Reece Garg Note: Comment Normal [facility] Comment on above: Result Comment: The Pap smear is a screening test designed to aid in the detection of premalignant and malignant conditions of the uterine cervix. It is not a diagnostic procedure and should not be used as the sole means of detecting cervical cancer. Both false-positive and false-negative reports do occur. . Performed at: WB Performed By: #### [id number] ####[facility] [id number] [id number]. Reece Garg Performed by: Comment Normal [facility] Comment on above: Result Comment: Alexandra Cortez, Mechanical Design Engineer (ASCP) Performed at: WB Performed By: #### [id number] ####[facility] [id number] [address]Dr. Reece Garg Specimen adequacy: Comment Normal [facility] Comment on above: Result Comment: Sati sfactory for evaluation. No endocervical component is identified. Performed at: WB Performed By: #### [id number] ####[facility] [id number] [place], [place] [address]Dr. Reece Garg VAGINITIS/VAGINOSIS DNA PROB Erwin 07-24-2022 Mala species Negative Normal Negative [facility] Comment on above: Performed By: #### V AGINT #### [facility] [address] [address] [address] Reece Garg Gardnerella vaginalis Positive Abnormal Negative [facility] Comment on above: Performed By: #### V AGINT #### [facility] [address] [address] [address] Reece Garg Trichomonas vaginalis Negative Normal Negative [facility] Comment on above: Performed By: #### V AGINT #### [facility] [address] [address] [address] Reece Garg Vital Signs Date Time Vital Sign Value Performing Clinician Facility 08-31-2024 10:09040 Body mass index (BMI) [Ratio] 24.11 kg/m2 [facility] Work Phone: [facility] 08-31-2024 10:09040 Body weight 59.78 kg [facility] Work Phone: [facility] 08-31-2024 10:09-0400 Diastolic blood pressure 70 mm[Hg] [facility] Work Phone: [facility] 08-31-2024 10:09-0400 Systolic blood pressure 110 mm[Hg] [facility] [employer] Work Phone: [facility] 08-08-2024 11:15-0400 Blood Pressure Location SYDNEE KAUFFMAN [facility] 08-08-2024 11:15-0400 Diastolic blood pressure 63 mm[Hg] SYDNEE KAUFFMAN [facility] 08-08-2024 11:15-0400 Heart rate 61 /min SYDNEE KAUFFMAN [facility] 08-08-2024 11:15-0400 Respiratory rate 19 /min SYDNEE KAUFFMAN [facility] 08-08-2024 11:15-0400 Systolic blood pressure 96 mm[Hg] SYDNEE KAUFFMAN [facility] Encounters Encounter Date Encounter Type Care Provider Facility Start: 04-04-2025 ambulatory Julien HOYOS Facili ty:[facility] Start: 12-26-2024 ambulatory Julien HOYOS Facili ty: [place] Start: 10-16-2024 ambulatory Sydnee Kauffman Facili ty:[facility] Start: 10-03-2024 End: 10-03-2024 ambulatory Julien HOYOS Facility:[facility] Start: 10-03-2024 End: 10-03-2024 Patient encounter procedure Julien HOYOS [facility] Start: 09-20-2024 End: 09-20-2024 Bamboo flowsheet Theresa Perez [facility] Work Phone: [facility] Start: 09-20-2024 End: 09-20-2024 Bamboo flowsheet Theresa Perez [facility] Work Phone: [facility] Start: 09-20-2024 End: 09-20-2024 ambulatory THERESA PEREZ Not Available Comment on above: IRVING (generalized anx iety disorder) (CMS/HCC); Adjustment disorder with depressed mood (CMS/HCC) Start: 08-31-2024 End: 08-31-2024 Bamboo flowsheet Andre Hudson DO Work Phone: [facility] Start: 08-31-2024 End: 08-31-2024 Bamboo flowsheet Andre Hudson DO Work Phone: [facility] Start: 08-31-2024 End: 08-31-2024 Office outpatient visit 15 minutes Andre Hudson DO Work Phone: [facility] Comment on above: Vaginal discharge; STD exposure Start: 08-31-2024 End: 08-31-2024 ambulatory ANDRE HUDSON Not Available Start: 08-10-2024 End: 08-10-2024 ambulatory THERESA L PEREZ Not Available Start: 08-08-2024 End: 08-08-2024 ambulatory XUAN KAUFFMAN Facility:[facility] Start: 08-08-2024 End: 08-08-2024 Patient encounter procedure SYDNEE KAUFFMAN [facility] Start: 08-03-2024 ambulatory Julien HOYOS Facility :[facility] Start: 08-03-2024 End: 08-03-2024 ambulatory ANDRE HUDSON Not Available Start: 07-31-2024 End: 07-31-2024 ambulatory ANDRE HUDSON Not Available Start: 07-18-2024 End: 07-18-2024 ambulatory THERESA L PEREZ Not Available Start: 07-10-2024 End: 07-10-2024 ambulatory ANDERSON FRIED Not Available Start: 06-29-2024 End: 06-29-2024 ambulatory THERESA L PEREZ Not Available Start: 05-25-2024 End: 05-25-2024 ambulatory [facility] Start: 04-27-2024 ambulatory [facility] Start: 04-04-2024 End: 04-04-2024 ambulatory ADELFO PEREZ Not Available Start: 02-16-2024 End: 02-16-2024 ambulatory THERESA L PEREZ Not Available Start: 02-10-2024 End: 02-10-2024 Office outpatient visit 15 minutes Jani Bridges MD Work Phone: [facility] Comment on above: Acute deep vein thro mbosis (DVT) of iliac vein of left lower extremity ([facility]) (Primary Dx); May-Thurner syndrome Start: 02-10-2024 ambulatory [facility] Start: 01-31-2024 End: 01-31-2024 ambulatory ANDRE HUDSON Not Available Start: 01-26-2024 End: 01-26-2024 Evaluation and management of inpatient PAUL CHACON [facility] Start: 01-24-2024 End: 01-26-2024 Evaluation and management of inpatient [place] Start: 01-24-2024 End: 01-24-2024 ambulatory DL BUCK [facility] Start: 01-24-2024 ambulatory [facility] Start: 01-23-2024 End: 01-26-2024 Evaluation and management of inpatient STEPHEN STOKES [facility] Start: 01-23-2024 End: 01-25-2024 Evaluation and management of inpatient [place] Start: 01-20-2024 End: 01-20-2024 ambulatory ANDERSON FRIED Not Available Start: 01-07-2024 End: 01-07-2024 ambulatory Andre Hudson Facility:[facility] Start: 12-14-2023 End: 12-14-2023 ambulatory ANDRE HUDSON Not Available Start: 11-04-2023 End: 11-04-2023 ambulatory ANDRE HUDSON Not Available Start: 04-03-2023 End: 04-03-[address] USMAN ALVAREZ . Facility:[facility] Start: 07-26-2022 Encounter for gynecological examination (general) (routine) without abnormal findings DR EARLENE MCDONOUGH . [facility] Start: 07-22-2022 End: 07-22-[address] EARLENE MCDONOUGH . Facility:[facility] Start: 07-22-2022 End: 07-22-2022 Encounter for gynecological examination (general) (routine) without abnormal findings DR EARLENE MCDONOUGH . Facility:[facility] Procedures Date Procedure Procedure Detail Performing Clinician Start: 02-10-2024 Follow-up visit Follow-up JANI BRIDGES Start: 01-23-2024 Adult depression scr eening assessment Jani Bridges MD Work Phone: Start: 01-07-2024 Fallopian tube excision SYDNEE KAUFFMAN Comment on above: partial Start: 11-15-2023 Removal of thrombus ROXANE KAUFFMAN Start: 08-24-2023 Microscopic observat ion [Identifier] in Cervix by Cyto stain Andre Treviño DO Work Phone: H/O: hysterectomy SYDNEE Pearson CHELOVero History of appendectomy ADITI KAUFFMAN Laparoscope, device (physical object) SYDNEE KAUFFMAN Comment on above: pelvic Plan of Treatment Date Care Activity Detail Author Start: 08-24-2028 Screening for malign ant neoplasm of cervix [facility] Start: 08-06-2025 End: 08-06-2025 Patient encounter procedure 08/06/2025 10:00 AM EDT Office Visit [facility] [address] [place] [address] Andre Treviño, DO [address] [place] [address] [facility] Start: 01-24-2025 Adult BMI Screening Adult BMI Screen ing [facility] Start: 01-23-2025 Tobacco Screening Tobacco Screening [facility] Start: 01-22-2025 Depression Screening Depression Scre ening [facility] Start: 10-17-2024 End: 10-17-2024 Social Work 10/17/2024 11:00 AM EST Social Work [facility] [address] [place] [address] Theresa Perez, [facility] [address] [place] [address] [facility] Start: 09-20-2024 End: 09-20-2024 Social Work 09/20/2024 8:00 AM EST [facility] [address] [place] [address] Theresa Perez, [facility] [address] [place] [address] Arrived [facility] Comment on above: Arrived Start: 09-06-2024 End: 09-06-2024 Social Work 09/06/2024 2:00 PM EDT Social [facility] [address] [place] [phone] PerezTheresa west, [facility] [address] [place] [address] [facility] Start: 08-31-2024 End: 08-31-2024 Patient encounter procedure 08/31/2024 10:10 AM EDT Office Visit [facility] [address] [place] [id number] Andre Treviño, [address] [place] [address] Arrived [facility] Comment on above: Arrived Start: 07-16-2024 Influenza vaccination Influenza Vacc ine (#1) [facility] Start: 02-25-2024 End: 02-10-2025 US.doppler Thoracic and Abdominal Aorta and Inferior Vena Cava and Illiac vessels Vas IVC/iliac duplex complete Vascular Ultrasound Routine Acute deep vein thrombosis (DVT) of iliac vein of left lower extremity (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 Expected: 02/25/2024 (Approximate), Expires: 02/10/2025 [facility] Work Phone: Comment on above: Expected: 02/25/2024 (Approximate), Expires: 02/10/2025 Start: 07-16-2023 Influenza vaccination Influenza Vacc ine [facility] Start: 02-14-2019 DTaP,Tdap and Td Vaccines (6 - Tdap) DTaP,Tdap and Td Vaccines (6 - Tdap) [facility] Start: 2013 Screening for malign ant neoplasm of cervix Pap Smear [facility] Start: 2010 Adult BMI Follow Up Plan Adult BMI Follow Up Plan [facility] Immunizations Immunization Date Immunization Notes Care Provider Fa jonatan 05-13-2021 SARS-CoV-2 (COVID-19 ) mRNA BNT-162b2 vax SYDNEE JAMARI [facility] 04-22-2021 SARS-CoV-2 (COVID-19 ) mRNA BNT-162b2 vax SYDNEE JAMARI [facility] 07-04-2019 hepatitis B vaccine, adult dosage SYDNEE JAMARI [facility] 05-02-2019 hepatitis B vaccine, adult dosage SYDNEE JAMARI [facility] 02-28-2019 hepatitis B vaccine, adult dosage SYDNEE JAMARI [facility] 02-13-2019 Td(adult) unspecifie d formulation SYDNEEMARIELLE KAUFFMAN [facility] Comment on above: Result Comment: 2023: TENIVAC GIVEN BY DR ALVAREZ IN [facility] 07-11-1997 diphtheria, tetanus toxoids and acellular pertussis vaccine SYDNEE JAMARI [facility] 07-11-1997 measles, mumps and rubella virus vaccine SYDNEE JAMARI [facility] 07-11-1997 poliovirus vaccine, unspecified formulation SYDNEE JAMARI [facility] 06-23-1993 Hib, unspecified formulation SYDNEE JAMARI [facility] 06-23-1993 measles, mumps and rubella virus vaccine SYDNEE JAMARI [facility] 06-23-1993 poliovirus vaccine, unspecified formulation SYDNEE JAMARI [facility] 1992 Hib, unspecified formulation SYDNEE JAMARI [facility] 1992 Hib, unspecified formulation SYDNEE JAMARI [facility] 1992 poliovirus vaccine, unspecified formulation SYDNEE JAMARI [facility] 1992 Hib, unspecified formulation SYDNEE JAMARI [facility] 1992 poliovirus vaccine, unspecified formulation SYDNEE JAMARI [facility] Payers Date Payer Category Payer Self-pay 2022 Private Health Insurance [employer] [id number] 2022 Unknown [employer] OUT OF STATE PPO/TRUST [id number] 2022-Present [phone] [address] [place] [address] [id number]. [id number] 1992 Unknown [id number] 2.16.840.1.927323.3.579.2. 593 1992 Unknown [id number] 2.16840.1.017591.3.579.2. 593 1992 Unknown [id number] 2.16840.1.521725.3.579.2. 1285 1992 Unknown [id number] 2.0.1.873581.3.579.2. 1285 1992 Unknown [id number] 2.16840.1.545726.3.579.2. 1285 1992 Unknown [id number] 2.16840.1.591298.3.579.2. 1285 1992 Unknown [id number] 2.840.1.569965.3.579.2. 1285 1992 Unknown [id number] 2.840.1.267896.3.579.2. 1285 1992 Unknown [id number] 2.16.840.1.228380.3.579.2. 1285 1992 Unknown [id number] 2.16840.1.889738.3.579.2. 1285 1992 Unknown [id number] 2.16.840.1.353866.3.579.2. 1285 1992 Unknown [id number] 2.16840.1.362923.3.579.2. 1285 1992 Unknown [id number] 2.16.840.1.149843.3.579.2. 1258 1992 Unknown [id number] 2.16.840.1.088328.3.579.2. 1258 1992 Unknown [id number] 2.16.840.1.720101.3.579.2. 1258 1992 Unknown [id number] 2.16.840.1.839498.3.579.2. 1258 1992 Unknown [id number] 2.16.840.1.375613.3.579.2. 1258 1992 Unknown [id number] 2.16.840.1.856382.3.579.2. 1258 1992 Unknown [id number] 2.16.840.1.417310.3.579.2. 1258 1992 Unknown [id number] 2.16840.1.172609.3.579.2. 1258 1992 Unknown [id number] 2.16.840.1.294434.3.579.2. 1258 1992 Unknown [id number] 2.16.840.1.055850.3.579.2. 1258 1992 Unknown [id number] 2.16.840.1.811443.3.579.2. 1258 1992 Unknown [id number] 2.16.840.1.341871.3.579.2. 1258 1992 Unknown [id number] 2.16.840.1.690697.3.579.2. 1258 1992 Unknown [id number] 2.16.840.1.070499.3.579.2. 1258 1992 Unknown [id number] 2.16.840.1.971774.3.579.2. 1992 Unknown [id number] 2.16.840.1.081203.3.579.2. 1992 Unknown [id number] 2.16.840.1.043990.3.579.2. 727 1992 Unknown [id number] 2.16.840.1.788031.3.579.2. 727 1992 Unknown [id number] 2.16.840.1.785257.3.579.2. 727 1957 Medicaid [id number] 1957 Unknown [id number] 1957 Unknown [id number] 1959 Unknown [id number] Unknown [id number] Unknown [id number] 2.16.840.1.780565.3.579.2. 531 Social History Date Type Detail Facility Start: 01-23-2024 End: 07-31-2024 Tobacco smoking status NJIS Ex-smoker [facility] History of tobacco use Current smoker [facility] History of tobacco use Cigarette Smoker P [facility] Start: 01-23-2024 End: 07-31-2024 Tobacco use and exposure Smokeless tobacco non-user [facility] Start: 01-24-2024 Alcohol intake Ex-drinker (finding) [facility] Start: 01-23-2024 End: 07-31-2024 History of Social function [facility] Start: 01-23-2024 End: 07-31-2024 [facility] [facility] Has the [employer], [employer], [employer], or [employer] company threatened to shut off services in your home in past 12Mo No [facility] How often to you hav e a drink containing alcohol? Never [facility] How many standard drinks containing alcohol do you have on a typical day? Patient does not drink [facility] Start: 1990 Sex Assigned At Not on file P [facility] Start: 08-03-2024 End: 08-31-2024 Alcoholic beverage intake Lifetime non-drinker (finding) [facility] Start: 09-10-2023 Tobacco Comment 5 or less ciga rettes a day [facility] Medical Equipment Procedure Code Equipment Code Equipment Origin al Text Equipment Identifier Dates Stent Vsc 18mm X 100mm Venous Nitinol Slf Expanding Abre - [id number] Start: 01-24-2024 Functional Status Date Assessment Result Facility 10-03-2024 Functional Status N/A [facility] 08-08-2024 Functional Status N/A [facility] Clinical Notes 02-10-2024 to 10-03-2024 Note Date & Type Note Facility 10-03-2024 Evaluation + Plan note Extrac casandra from: Title:Urology Progress Note Author:Js HOYOS MD Date:10/03/24 Impression and Plan Impression: #1. She has urinary frequency, urgency and urge incontinence. 2. Her pelvic pain may be from endometriosis. Plan: #1. For now, she will try Myrbetriq 50 mg daily. Follow-up will be in 4 months for reevaluation. Future Appointments Appointment Date:12/26/2024 09:30:00 AM Scheduled Provider:SYDNEE KAUFFMAN PA-C Location:[facility] Appointment Type:URO Office Visit Appointment Date:04/04/2025 01:00:00 PM Scheduled Provider:Julien HOYOS MD Location:[facility] Appointment Type:URO Office Visit [facility] 11-19-2024 Hospital Discharge instructions Patient Education 10/03/2024 10:03:00 EU - Cystoscopy with Urethral Dilation Discharge Instructions (CUSTOM) Cystoscopy with Urethral Dilation Voiding after the procedure: there may be some pain, urethral bleeding, burning, urgency, frequencyand blood tinged urine following the procedure. These symptoms usually resolve within 2-5 days. Drink the amount of fluid it takes to keep the urine pink to yellow or clear in color. Drinking enough water and fluids will help to ease any discomfort after your procedure. If you are having problems that seem out of the ordinary, please call. If unable to contact your physician and you feel it is an emergency, go to the nearest emergency room or call 911 Diet you may resume your normal diet. Activity you may resume your normal activities Call if you have a fever over 100 degrees Follow Up Care 08/18/2024 15:06:34 With:Julien HOYOS Address: [address] [place] [phone] Business (1) When:01/31/2025 10:02:39 Comments:With Roxane Kauffman [facility] 11-19-2024 NoteProgress Note-Physician Patient: TAWANA SILVERMAN Age: 34 years Sex: Female : 1990 Associated Diagnoses: None Author: ROMAIN NAVARRO, Julien Smalls Subjective X this lady has pelvic pain, urinary frequency, urgency and pain with voiding. 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 Today she was dilated. Her bladder was fairly unremarkable. Review of Systems ROS reviewed as documented in chart Health Status Allergies: Allergic Reactions (Selected) No Known Medication Allergies Current medications: Home Medications (10) Active Cipro 500 mg Tab 500 mg = 1 tab(s), Oral, Daily [facility] ASPIRIN 81 MG CHEWABLE TAB 0 Diflucan doxycycline 100 mg Eliquis 5 mg oral tablet 5 mg = 1 tab(s) Flagyl , Oral gabapentin 300 mg Cap 300 mg = 1 cap(s) Nature's Bounty Probiotic , Oral, Daily ondansetron 4 mg Dis Tab 4 mg = 1 tab(s) Valium 5 mg Tab See Instructions Problem list: All Problems Endometriosis (clinical) / SNOMED CT 601820528 / Confirmed Deep venous thrombosis / SNOMED CT 637208751 / Confirmed 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 Family History: Congenital heart disease Mother Primary malignant neoplasm of female breast Grandparent Alcoholism Mother Migraines Mother Procedure history: Thrombectomy (90936426) in 2023 at 34 Years. Salpingectomy (3562647912) on 01/07/2024 at 33 Years. Comments: 08/08/2024 8:57 NHUNG - Therese Mejia MA partial History of appendectomy (situation) (4835417310). History of - hysterectomy (context-dependent category) (413135053). Laparoscope (820140510). Comments: 08/08/2024 8:55 EDT - Roberto ZAMBRANO, Therese C pelvic Social History Social & Psychosocial Habits Alcohol 08/08/2024 Risk Assessment: Denies Alcohol Use Tobacco 08/08/2024 Tobacco Use: Former smoker, quit more . Objective She is resting comfortably in bed. She is in no acute distress. Afebrile vital signs are stable. Abdomen is soft and nontender. Pelvic reveals a normal exam. Impression and Plan Impression: #1. She has urinary frequency, urgency and urge incontinence. 2. Her pelvic pain may be from endometriosis. Plan: #1. For now, she will try Myrbetriq 50 mg daily. Follow-up will be in 4 [facility]Result Comment: Electronically Signed By: ROMAIN NAVARRO, Julien Pimentel.shikha\Date and Time Signed: 10/03/24 10:13 [id number] NotePatient Education Custom Cystoscopy with Urethral Dilation ??? Voiding after the procedure: there may be some pain, urethral bleeding, burning, urgency, frequency and blood tinged urine following the procedure. These symptoms usually resolve within 2-5 days.Drink the amount of fluid it takes to keep the urine pink to yellow or clear in color. Drinking enough water and fluids will help to ease any discomfort after your procedure. ??? If you are having problems that seem out of the ordinary, please call. ??? If unable to contact your physician and you feel it is an emergency, go to the nearest emergency room or call 911 ??? Diet ??? you may resume your normal diet. ??? Activity ??? you may resume your normal activities ??? Call if you have a fever over 100 degreesFisher [facility] History of Present illness Narrative* April Beth LPN - 08/31/2024 10:10 AM EDT Reason for Appointment: Patient ID: Tawana Silverman is a 34 y.o. female who presents for STI Screening Patient presents today for Consult appointment. MEDICATIONS Current Outpatient Medications Medication Instructions acetaminophen (TYLENOL) 1,000 mg, Oral, Every 6 hours doxycycline (VIBRAMYCIN) 100 mg, Oral, 2 times daily, Take with at least 8 ounces (large glass) of water, do not lie down for 30 minutes after Eliquis DVT/PE Starter Pack 5 MG tablet therapy pack Take 2 tablets by mouth twice daily for 7 days, then take 1 tablet twice daily fluconazole (DIFLUCAN) 100 mg, Oral, Every other day gabapentin (Neurontin) 300 MG capsule 1 capsule ondansetron ODT (ZOFRAN-ODT) 4 mg, Oral, Every 6 hours PRN phenazopyridine (PYRIDIUM) 100 mg, Oral, 3 times daily PRN Probiotic tablet delayed-release Every 24 hours ALLERGIES No Known Allergies PROBLEMS Active Ambulatory Problems Diagnosis Date Noted Endometriosis 11/25/2023 Pelvic pain 11/25/2023 Chronic bladder pain 07/31/2024 Resolved Ambulatory Problems Diagnosis Date Noted No Resolved Ambulatory Problems Past Medical History: Diagnosis Date Abnormal Pap smear of cervix 2006 BV (bacterial vaginosis) HPV (human papilloma virus) infection 2006 Ovarian cyst 2019 Vaginal Pap smear 07/2022 Yeast infection of the vagina HISTORY PAST MEDICAL HISTORY SOCIAL HISTORY Past Medical History: Diagnosis Date Abnormal Pap smear of cervix 2006 BV (bacterial vaginosis) Endometriosis HPV (human papilloma virus) infection 2006 Ovarian cyst 2019 Vaginal Pap smear 07/2022 neg Yeast infection of the vagina Social History Tobacco Use Smoking status: Former Current packs/day: 0.50 Average packs/day: 0.5 packs/day for 15.0 years (7.5 ttl pk-yrs) Types: Cigarettes Smokeless tobacco: Never Tobacco comments: 5 or less cigarettes a day Substance Use Topics Alcohol use: Never Drug use: Never FAMILY HISTORY No family history on file. SURGICAL HISTORY Past Surgical History: Procedure Laterality Date APPENDECTOMY March [address] ANGIOGRAM UPPER EXTREMITY LEFT Left 05/08/2024 CT ANGIOGRAM UPPER EXTREMITY LEFT DILATION AND CURETTAGE OF UTERUS 01/07/2024 HYSTERECTOMY 2018 PELVIC LAPAROSCOPY Endometriosis via lap SALPINGECTOMY Bilateral 01/07/2024 partial THROMBECTOMY 2023 REVIEW OF SYSTEMS Review of Systems: Review of Systems All other systems reviewed and are negative. OBJECTIVE Objective: Physical Exam Constitutional: Appearance: Normal appearance. She is well-developed. Genitourinary: Vulva normal. Cardiovascular: Rate and Rhythm: Normal rate and regular rhythm. Pulmonary: Effort: Pulmonary effort is normal. Breath sounds: Normal breath sounds. Abdominal: General: Bowel sounds are normal. There is no distension. Palpations: Abdomen is soft. Tenderness: There is no abdominal tenderness. There is no guarding or rebound. Musculoskeletal: General: No swelling. Normal range of motion. Right lower leg: No edema. Left lower leg: No edema. Neurological: Mental Status: She is alert and oriented to person, place, and time. Skin: General: Skin is warm and dry. Psychiatric: Mood and Affect: Mood normal. Behavior: Behavior normal. Vitals and nursing note reviewed. Exam conducted with a molder vacuum present. Vitals: Estimated body mass index is 24.11 kg/m as calculated from the following: Height as of 07/31/24: 5' 2 . Weight as of this encounter: 131 lb 12.8 oz. BP: 110/70 No LMP recorded. Patient has had a hysterectomy. ASSESSMENT & PLAN ICD-10-CM 1. Vaginal discharge N89.8 2. STD exposure Z20.2 Patient presents today for KAREEM appointment. Patient was previously referred to [facility] and is scheduled for a scope on 10/03/24 @ [facility]. Urology also referred patient to PT for pelvic floor therapy. Patient will be seen by PT on Wednesday for evaluation. Patient tolerated vaginal cultures well while being obtained and then had pelvic pain afterwards. Patient did not feel well after exam and was given extra time to lie down until feeling better. After a few moments patient was doing better and voiced that she was good to get dressed. Patient to return to clinic for routine annualappointment and as needed. Documented by April Beth LPN on behalf of: Andre Treviño DO documented in [facility] encounter[facility] [id number] Hospital Discharge instructions Patient Education 08/08/2024 12:40:13 Pelvic Pain, [...] pain can be a result of digestive orurinary conditions, strained muscles or ligaments, or reproductive conditions. Sometimes the cause of pelvic pain is not known. Follow these instructions at home: Take [id number]-mvb-[id number] and prescription medicines only as told by [...] provider. Document Revised: 03/10/2022 Document Reviewed: 03/10/2022 [employer] Patient Education 2023 [employer]. Follow Up Care 08/03/2024 15:49:20 With:[facility] [place] Address: [address] [address] Business (1) When: Unknown Comments:our senior business development manager will be contacting you for follow-up [facility] [place] 09-24-2024 NoteUrology Office/Clinic Note Chief Complaint Dr. Treviño referral HPI Staff 34 year old female referred by Dr. Treviño for chronic bladder pain. Had annual visit on 07/31/24 and note states pt had vaginal and urethral tenderness on exam. He prescribed Doxy BID x 30 days and Pyridium. Also on Flagyl, Azithromycin, and Diflucan for BV. Hx endometriosis and chronic pelvic pain. Partial hyst 2017. Bilat salpingectomy Dec 2023. Still has ovaries. [...] test anxiety. 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 Ordered: diazepam, See Instructions, 1 tab po 30-60 mins prior to cystoscopy, # 1 tab(s), Refills(s) 0, Pharmacy: [id number], 158, cm, 08/08/24 11:39:00 EDT, Height/Length Dosing, 60, kg, 08/08/24 11:39:00 EDT, Weight Dosing E&M of New Patient Moderate 45-59 Min 90827 2. Chronic pelvic pain in female (R10.2: Pelvic and perineal pain) Sp hysterectomy 2017 w several laproscopy d/t endometriosis. Had laproscopy Dec 2023 and bilat salpingectomy at that time. Pt reports no endometriosis found at that time. Will refer to [facility]PT at [facility] (her sx are a bit beyond my scope of PFPT) to assess for hypertonicpelvic floor, etc. Ordered: diazepam, See Instructions, 1 tab po 30-60 mins prior to cystoscopy, # 1 tab(s), Refills(s) 0, Pharmacy: [id number], 158, cm, 08/08/24 11:39:00 EDT, Height/Length Dosing, 60, kg, 08/08/24 11:39:00 EDT, Weight Dosing 37614 Measure Post Void residual urine and/or bladder capacity by US- non-imaging E&M of New Patient Moderate 45-59 Min 42680 Urnls Dip Stick Auto w/o Microscopy POC 14923 3. Recurrent vaginitis (N76.0: Acute vaginitis) Also reports frequent vaginal infections - bacterial and fungal. Ordered: diazepam, See Instructions, 1 tab po 30-60 mins prior to cystoscopy, # 1 tab(s), Refills(s) 0, Pharmacy: [id number], 158, cm, 08/08/24 11:39:00 EDT, Height/Length Dosing, 60, kg, 08/08/24 11:39:00 EDT, Weight Dosing E&M of New Patient Moderate 45-59 Min 97473 Follow-up With When Contact Information [facility] [address] [place] [address] Business (1) Additional Instructions: our senior business development manager will be contacting you for follow-up Patient Education Pelvic Pain, Female Problem List/Past Medical History Ongoing Anxiety Chronic bladder pain Chronic pelvic pain in female Deep venous thrombosis Endometriosis (clinical) Factor V deficiency Leukocytosis Migraine Recurrent vaginitis Historical No qualifying data Procedure/Surgical History Salpingectomy (01/07/2024), Thrombectomy (2023), H/O: hysterectomy, History of appendectomy, Laparoscope. Medications CV (more content not included)...[facility] Result Comment: Electronically Signed By: SYDNEE KAUFFMAN PA-C\.br\Date and Time Signed: 08/08/2412:41 [id number] NotePatient Education Obstetrics and Gynecology Pelvic Pain, Female [...] pain can be a result of digestive orurinary conditions, strained muscles or ligaments, or reproductive conditions. Sometimes the cause of pelvic pain is not known. Follow these instructions at home: ? Take [id number] and prescription medicines only as told by [...] provider. Document Revised: 03/10/2022 Document Reviewed: 03/10/2022 [employer] Patient Education ? 2023 [employer] 02-10-2024 History of Present illness Narrative* Jani Bridges MD - 02/10/2024 2:40 PM EDT Images from the original note were not included. [facility] [address] [facility] [address] Subjective: Patient ID: Tawana Silverman is a 33 y.o. female. Chief [...] Problem List Diagnosis DVT (deep venous thrombosis) ([facility]) May-Thurner syndrome Current Outpatient Medications: acetaminophen [...] past medical history, past social history, past surgicalhistory and problem list. Review of Systems: Review [...] normal. Judgment: Judgment normal. Studies Reviewed Assesment: Tawana was seen today for follow-up. 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 Compression of vein [facility] Diagnosis Vaginal discharge Leukorrhea, not specified as infective STD exposure [facility] Diagnosis IRVING (generalized anxiety disorder) ([facility]/HCC) Generalized anxiety disorder Adjustment disorder with depressed mood (CMS/HCC) Adjustment disorder with depressed mood documented in this encounter [facility] HealthcareInstructionsNot on filedocumented in this encounterPro[facility] SystemProgress note No data available for this section [facility] Summary Purpose Family History No Family History Records FoundNo Family History Records FoundNo Family History Records Found No data available for this section No Family History Records Found No data available for this section No Family History Records FoundNo Family History [...] Vas IVC/iliac duplex complete Jani Bridges MD [address] [address] Referral ID Status Reason Start Date Expiration Date V isits Requested Visits Authorized [id number] Pending Review 02/11/2024 02/10/2025 1 1 Additional Source Comments INFORMATION SOURCE (unrecogn ized section and content) DATE CREATED AUTHOR 04/23/2023 [facility] DATE CREATED AUTHOR AUTHOR'S ORGANIZ ATION 01/27/2024 [facility] DATE CREATED AUTHOR AUTHOR'S ORGANIZ ATION 05/31/2024 [facility] DATE CREATED AUTHOR AUTHOR'S ORGANIZ ATION 09/21/2024 [facility] DATE CREATED AUTHOR AUTHOR'S ORGANIZ ATION 10/05/2024 [place] [facility] DATE CREATED AUTHOR AUTHOR'S ORGANIZ ATION 10/17/2024 [facility] Reason for Visit (unrecogniz ed section and content) Reason Comments Follow-up Thrombectomy lle. DV T and iliac stenting. Per patient she notes some discomfort to lle with mi Reason Comments STI Screening Reason Comments Follow-up Care Teams (unrecognized sec tion and content) Manager Small Business Relationship Specialty Start Date End Date Usman Alvarez MD [address] [place] [address] PCP - General 02/09/24 Manager Small Business Relationship Specialty Start Date End Date Usman Alvarez MD [address] [place] [address] PCP - General Family Medicine 03/24/23 Manager Small Business Relationship Specialty Start Date End Date Usman Alvarez MD [address] [place] [address] PCP - General Family Medicine 03/24/23 Manager Small Business Relationship Specialty Start Date End Date Usman Alvarez MD [address] [place] [phone] PCP - General Family Medicine 03/24/23 FOR RECORDS PERTAINING TO PATIENTS WHO ARE [...] BE BASED ON THE PRIMARY CLINICAL RECORDS. [facility]. provides no warranty or guarantee of the accuracy or completeness of information in this document.
--- NOTE | 2024-10-20 09:30 | CA_ITS ---
Patient Name: KIMBERLY MCMAHON MR#: [id number] : 1990 Exam Date: 10/20/2024 Ordering Doctor: DR Dank Alvarez . ECHOCARDIOGRAM REPORT PROCEDURE: CA ECHO DOPPLER COMPLETE INDICATIONS: Elevated antistreptolysin O antibodies COMPARISON: None. DESCRIPTION: COMPLETE ECHOCARDIOGRAM Real-time transthoracic echocardiography with 2D, M-mode, spectral and color flow Doppler performed. QUALITY: Technical quality was good. LEFT VENTRICLE: Normal chamber size. Normal left ventricle box thickness LV EF: Normal left ventricular ejection fraction, 60%, no regional wall motion abnormalities DIASTOLIC: Normal diastolic function. ATRIAL SEPTUM: Visually appears intact. LEFT ATRIUM: Normal chamber size. RIGHT ATRIUM: Normal chamber size. RIGHT VENTRICLE: Normal chamber size. Normal right ventricular systolic function. TRICUSPID VALVE: Normal mobility and thickness. No stenosis with mild regurgitation. No evidence of pulmonary hypertension.RVSP 21 mmHg MITRAL VALVE: Normal mobility and thickness. No evidence of mitral valve stenosis. There is no mitral annular calcification. Trivial to mild mitral regurgitation. AORTIC VALVE: Normal trileaflet appearance. No visible sclerosis. Normal leaflet mobility. No evidence of aortic valve stenosis. No aortic regurgitation. AORTIC ROOT: Normal diameter and appearance. PULMONIC VALVE: Normal thickness and mobility. No stenosis. Trivial regurgitation. PERICARDIUM: No evidence of pericardial effusion. IVC: Normal size. Collapes with inspirations. PLEURA: CONCLUSION: Normal left ventricle chamber size. Normal left ventricle box thickness. Normal left ventricular ejection fraction, 60%, no regional wall motion abnormalities. Normal diastolic function. Mild tricuspid regurgitation. No evidence of pulmonary hypertension. RVSP 21 mmHg Trivial to mild mitral regurgitation. Adult Echocardiography Procedure Report Left Ventricle LVEDD (3.7 - 5.6 cm): 4.42 cm LVESD (2.2 - 4.0 cm): 3.02 cm LVIVS thickness (0.6 - 1.2 cm): 1.19 cm LVPW thickness (0.5 - 1.0 cm): 0.68 cm e': 0.17 m/s E - e': 5.25 LVOT Max Gradient: 4.16 mm[Hg] LVOT Area (cm2): 1.02 m/s Peak Velocity (LVOT): 1.02 m/s Mean Velocity (LVOT): 0.64 m/s LVOT Diameter 2.09 cm Left Atrium LA Volume Index (2D A2C): 29.59 ml/m2 Left Atrium Systolic Dimension: 2.43 cm Mitral Valve MV E to A Ratio: 2.16 Mitral Valve A-Wave Peak Velocity: 0.43 m/s Mitral Valve E-Wave Peak Velocity: 0.92 m/s Right Ventricle Aorta AO Root Diam: 3.63 cm Aortic Valve AoV Area (Peak Keenan): 3.20 cm2, 3.20 cm2 AoV Area (VTI): 2.98 cm2, 2.98 cm2 Peak Velocity(Antegrade Flow): 1.10 m/s Peak Gradient(Antegrade Flow): 4.81 mm[Hg] Mean Velocity(Antegrade Flow): 0.72 m/s Mean Gradient(Antegrade Flow): 2.40 mm[Hg] Velocity Time Integral: 25.16 cm Tricuspid Valve Peak Velocity (Regurgitant Flow): 1.86 m/s, 2.05 m/s, 2.10 m/s Pulmonic Valve Mean Gradient: 1.68 mm[Hg] Mean Velocity: 0.60 m/s Peak Velocity: 0.93 m/s, 0.90 m/s Peak Gradient: 3.22 mm[Hg], 3.48 mm[Hg] Right Atrium Right Atrium Systolic Pressure: 23.33 ml, 23.33 ml Dictated by: Rodrigue De Los Santos MD on 10/20/2024 at 17:13 Approved by: Rodrigue De Los Santos MD on 10/20/2024 at 17:29
== END 2024-10-20 08:26 | disposition home or self-care (01) ==
LOC: US 08:26
PROVIDERS: PCP Family Medicine; Visit Provider Family Medicine
DX: R76.8 Other specified abnormal immunological findings in serum (principal)
CPT/HCPCS: 76770; 93306

== ENCOUNTER 2024-10-21 11:56 | Outpatient (REF) | payer BC, SELFPAY ==
[2024-10-21 13:13] LABS: Total Protein Urine Random 8.4 mg/dL (<=11.9)
[2024-10-21 13:19] LABS: Total Protein 24 Hour Urine 69.3 mg/24hr (<=149.1); Total Volume 24 Hour Urine 825 mL/24hr
== END 2024-10-21 11:57 | disposition home or self-care (01) ==
LOC: LAB 11:56
PROVIDERS: PCP Family Medicine; Visit Provider Family Medicine
DX: R76.8 Other specified abnormal immunological findings in serum (principal)
CPT/HCPCS: 81050; 84156

== ENCOUNTER 2024-12-18 07:34 | Outpatient (OUT) | payer BC, SELFPAY ==
--- NOTE | 2024-12-18 07:43 | MR_ITS ---
[address] [address] Patient Name: KIMBERLY MCMAHON MRN: [id number] date: 1990 Sex: F Assigned Patient Location: MRI Current Patient Location: MRI Accession/Order Number: [id number] Exam Date: 12/18/2024 08:00 Report Date: 12/18/2024 16:59 At the request of: NON-STAFF PHYSICIAN Procedure: MR hip LT wo con EXAM: MR hip LT wo con, MR pelvis wo/w con HISTORY: Left Hip Pain COMPARISON: 08/04/2024 TECHNIQUE: MRI images obtained with multiple sequences. MRI of the left hip without contrast. Sequences obtained by standard department protocol. MRI of the pelvis with and without contrast was also obtained. FINDINGS: Mild degeneration at the L5-S1 disc space. No significant degeneration at the symphysis pubis or the sacroiliac joints. No acute fractures of the pelvic bones. Normal alignment of the left hip joint. No left labral detachment by this nonarthrographic technique. Left iliopsoas tendon is intact. Left rectus femoris origin is intact. Left abductor tendons are intact. Bilateral hamstring origins are intact. Abductor muscle bulk is preserved and symmetric. No inguinal or pelvic adenopathy. No acute abnormality of the visualized organs of the pelvis. No abnormal enhancement of the organs of the pelvis on the postcontrast images. Visualized portion of the right hip joint is unremarkable on the coronal images. MR/MR hip LT wo con IMPRESSION: 1. Normal alignment of the left hip joint. No significant degeneration of the left hip joint. 2. No acute fractures. 3. No acute abnormality of the visualized organs of the pelvis. 4. Other findings as described. Electronically authenticated by: AYDEE PAREDES Date: 12/18/2024 16:59
--- NOTE | 2024-12-18 07:43 | MR_ITS ---
The [address] [address] Patient Name: KIMBERLY MCMAHON MRN: [id number] date: 1990 Sex: F Assigned Patient Location: MRI Current Patient Location: MRI Accession/Order Number: [id number] Exam Date: 12/18/2024 08:00 Report Date: 12/18/2024 16:59 At the request of: NON-STAFF PHYSICIAN Procedure: MR pelvis wo/w con EXAM: MR hip LT wo con, MR pelvis wo/w con HISTORY: Left Hip Pain COMPARISON: 08/04/2024 TECHNIQUE: MRI images obtained with multiple sequences. MRI of the left hip without contrast. Sequences obtained by standard department protocol. MRI of the pelvis with and without contrast was also obtained. FINDINGS: Mild degeneration at the L5-S1 disc space. No significant degeneration at the symphysis pubis or the sacroiliac joints. No acute fractures of the pelvic bones. Normal alignment of the left hip joint. No left labral detachment by this nonarthrographic technique. Left iliopsoas tendon is intact. Left rectus femoris origin is intact. Left abductor tendons are intact. Bilateral hamstring origins are intact. Abductor muscle bulk is preserved and symmetric. No inguinal or pelvic adenopathy. No acute abnormality of the visualized organs of the pelvis. No abnormal enhancement of the organs of the pelvis on the postcontrast images. Visualized portion of the right hip joint is unremarkable on the coronal images. MR/MR pelvis wo/w con IMPRESSION: 1. Normal alignment of the left hip joint. No significant degeneration of the left hip joint. 2. No acute fractures. 3. No acute abnormality of the visualized organs of the pelvis. 4. Other findings as described. Electronically authenticated by: AYDEE PAREDES Date: 12/18/2024 16:59
--- OUTSIDE RECORDS SUMMARY | 2024-12-18 07:57 | XMS_ITS | CCD ---
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 Name Role Phone RAIN ., DR MARY Attending Unavailable HOY ., DR MARY Admitting Unavailable HOY ., DR MARY Primary Care Unavailable HOY ., DR MARY Consulting Unavailable SARAI WILKINS Consulting Unavailable LAVON ELIZALDE Consulting Unavailable SISTER, CUCA Consulting Unavailable ARTUOR II, LUL Consulting Unavailable VERNELL .DL Consulting Unavailable KARTARAN ., DR HENAO Admitting Unavailabl e KARASIK ., DR HENAO Consulting Unavailabl e KARASIK ., DR HENAO Attending Unavailabl e JAUNY ., DR MARY Primary Care Unavailable ADDISON, MOHAMED F Admitting Unavailable ADDISON, MOHAMED F Attending Unavailable FLORA LAL Referring Unavailable DL BUCK Referring Unavailable STEPHEN STOKES Referring Unavailable PAUL CHACON Attending Unavailable ADDISON, MOHAMED F Attending Unavailable ADDISON, MOHAMED F Referring Unavailable Usman Alvarez MD Primary Care Provider [phone] ADDISON, MOHAMED F Attending Unavailable USMAN ALVAREZ Primary Care Unavailable ADDISON, MOHAMED F Attending Unavailable USMAN ALVAREZ M Referring Unavailable USMAN ALVAREZ M Primary Care Unavailable ADDSION, MOHAMED F Attending Unavailable USMAN ALVAREZ M Referring Unavailable DEVENDRA ALVAREZLAS M Primary Care Unavailable Usman Alvarez Primary Care Physician Usman Alvarez MD Primary Care Provider [phone] ANDRE TREVIÑO Attending Unavailable BHARTI FRIED Attending Unavailable ANDRE TREVIÑO Attending Unavailable THERESA PEREZ Attending Unavailable ADELFO PEREZ Attending Unavailable USMAN ALVAREZ Referring Unavailable THERESA PEREZ Attending Unavailable ANDRE TREVIÑO Attending Unavailable BHARTI FRIED Attending Unavailable RYAN, THERESA L Attending Unavailable HUDSON, ANDRE Attending Unavailable PEREZ, THERESA L Attending Unavailable HUDSON, ANDRE Attending Unavailable PEREZ, THERESA L Attending Unavailable ANTONIO, SYDNEE Flanagan Attending Unavailable HOYOS, Julien R Referring Unavailable ANTONIO, SYDNEE E Attending Unavailable HOYOS, Julien R Attending Unavailable HOYOS, Julien R Admitting Unavailable HOYOS, Julien R Referring Unavailable HOYOS, Julien R Attending Unavailable HOYOS, Julien R Referring Unavailable Hudson, Andre Admitting Unavailable Hudson, Andre Attending Unavailable Antonio, Sydnee Flanagan Admitting Unavailable Antonio, Sydnee Flanagan Attending Unavailable Usman Alvarez Primary Care Unavailable Allergies Allergy Classification Reported Allergen(s) Allergy Type Date of Onset Reaction(s) Facility (1 source) No Known Medication Allergies; Translations: [No Known Medication Allergies] Propensity to adverse reactions (disorder) [facility] Repository Medications Current Medications Medication Drug Class(es) Dates Sig (Normalized) Sig (Original) acetaminophen 500 mg oral tablet (18 sources) Start: 01-25-2024 take 2 tablets by mouth every six hours acetaminophen (Tylenol) 500 MG tablet Take 1,000 mg by mouth every 6 (six) hours 01/25/2024 Active apixaban 5 mg oral tablet (20 sources) Factor Xa Inhibitor Start: 08-08-2024 Eliquis [...] days. 30 tablet 0 01/25/2024 02/24/2024 Active cephalexin 500 mg oral capsule (1 source) Cephalosporin Antibacterial Start: 06-27-2024 End: 07-04-2024 take 1 capsule by mouth in the morning, then take 1 capsule by mouth in the evening, then take 1 capsule by mouth at bedtime cephalexin (Keflex) 500 MG capsule Indications: UTI symptoms Take 1 capsule (500 mg) by mouth in the morning and 1 capsule (500 mg) in the evening and 1 capsule (500 mg) before bedtime. Do all this for 7 days. 21 capsule 06/27/2024 07/04/2024 Active cyclobenzaprine hydrochloride 10 mg oral tablet [...] mg oral tablet (2 sources) Benzodiazepine Start: 09-24-2024 Valium 5 mg Tab See Instructions, 1 tab po 30-60 mins prior to cystoscopy, # 1 tab(s), Refills(s) 0, Pharmacy: [facility]/pharmacy #[id number], 158, cm, 08/08/24 11:39:00 EDT, Height/Length Dosing, 60, kg, 08/08/24 11:39:00 EDT, Weight Dosing Start Date: 08/08/24 Status: Ordered Doxycycline (12 sources) Tetracycline-class Drug Start: 08-08-2024 doxycycline 100 [...] minutes after. 60 capsule 1 07/31/2024 09/29/2024 fluconazole 100 mg oral tablet (7 sources) Azole Antifungal Start: 08-09-2024 End: 09-06-2024 take 1 tablet by mouth every other day fluconazole (Diflucan) 100 MG tablet Indications: Yeast infection Take 1 tablet (100 mg) by mouth every other day for 28 days 14 tablet 08/09/2024 09/06/2024 Active Start: 08-08-2024 Diflucan Start Date: 08/08/24 Status: Ordered gabapentin 300 mg oral capsule (18 sources) Anti-epileptic Agent Start: 05-26-2024 gabapenti n (Neurontin) 300 MG capsule 1 capsule 05/26/2024 Active Flagyl (3 sources) Nitroimidazole Antimicrobial Start: 08-08-2024 Flagyl Oral Start Date: 08/08/24 Status: Ordered Start: 08-02-2024 End: 08-09-2024 take 1 tablet by mouth in the morning metroNIDAZOLE (Flagyl) 500 MG tablet Indications: BV (bacterial vaginosis) Take 1 tablet (500 mg) by mouth in the morning and 1 tablet (500 mg) before bedtime. Do all this for 7 days. Do not drink alcohol while taking this medication. 14 tablet 08/02/2024 08/09/2024 Active 24 hr mirabegron 50 mg extended release oral tablet (1 source) beta3-Adrenergic Agonist Start: 10-03-2024 take 1 tablet by mouth once daily Myrbetriq 50 mg oral tablet, extended release 50 mg = 1 tab(s), Oral, Daily, # 30 tab(s), Refills(s) 6, Pharmacy: [facility]/pharmacy #[id number], 158, cm, 08/08/24 11:39:00 EDT, Height/Length Dosing, 60, kg, 08/08/24 11:39:00 EDT, Weight Dosing Start Date: 10/03/24 Status: Ordered Healthagen's Bounty Probiotic (2 sources) Start: 08-08-2024 Nature's Bounty Probiotic Oral, Daily Start Date: 08/08/24 Status: Ordered ondansetron 4 mg disintegrating oral tablet (19 sources) Serotonin-3 Receptor Antagonist Start: 02-08-2024 take 1 tablet by mouth every six hours as needed for nausea and vomiting and nausea and nausea ondansetron ODT (Zofran-ODT) 4 MG disintegrating tablet Indications: Nausea Take 1 tablet (4 mg) by mouth every 6 (six) hours if needed for nausea or vomiting for up to 30 doses 30 tablet 1 02/08/2024 Active phenazopyridine hydrochloride 100 mg oral tablet (10 sources) Start: 07-31-2024 phenazopyridine (Pyridium) 100 MG tablet Indications: Chronic bladder pain Take 1 tablet (100 mg) by mouth 3 (three) times a day as needed for bladder spasms for up to 9 doses 9 tablet 07/31/2024 Active Probiotic tablet delayed-release (17 sources) Probiotic tablet delayed-release 1 (one) time each day at the same time. Active Completed/Discontinued Medications Medication Drug Class(es) Dates Sig (Normalized) Sig (Original) acetaminophen 325 mg / HYDROcodone bitartrate 5 mg oral tablet (9 sources) Opioid Agonist Start: 01-07-2024 End: 07-31-2024 HYDROcodone-acetam inophen (York) 5-325 MG tablet TAKE 1 TABLET EVERY 4 HOURS 01/07/2024 07/31/2024 Discontinued azithromycin 500 mg oral tablet (9 sources) Macrolide Antimicrobial Start: 06-08-2024 End: 07-31-2024 take 1 tablet by mouth once daily azithromycin (Zithromax) 500 MG tablet Indications: Bacterial infection due to mycoplasma Day 1: Take 2 tablets PO onetime dose; Day 2,3,4: Take 1 tablet daily 5 tablet 06/08/2024 07/31/2024 Discontinued ciprofloxacin 500 mg oral tablet (1 source) Quinolone Antimicrobial Start: 08-21-2024 take 1 tablet by mouth once daily Cipro 500 mg Tab 500 mg = 1 tab(s), Oral, Daily, Take 1 tablet the day before the procedure and 1 tablet after the procedure, # 2 tab(s), Refills(s) 0, Pharmacy: [facility]/pharmacy #[id number], 158, cm, 08/08/24 11:39:00 EDT, Height/Length Dosing, 60, kg, 08/08/24 11:39:00 EDT, Weight Dosing Start Date: 08/21/24 Status: Ordered ethinyl estradiol 0.03 mg / levonorgestrel 0.15 mg oral tablet (10 sources) Progestin, Estrogen, Progestin-containin g Intrauterine Device Start: 01-26-2024 End: 07-31-2024 levonorgestrel-eth inyl estradiol (Nordette) 0.15-30 MG-MCG tablet Indications: Endometriosis Take 1 tablet by mouth in the morning. 28 tablet 12 01/26/2024 07/31/2024 Discontinued take 1 tablet by amanda th once in the morning levonorgestreL-ethinyl estrad (NORDETTE) 0.15-0.03 mg per tablet Take 1 tablet by mouth in the morning. 0 Active ibuprofen 800 mg oral tablet (9 sources) Nonsteroidal Anti-inflammatory Drug Start: 01-07-2024 End: 07-31-2024 ibuprofen 800 MG tablet TAKE 1 TABLET EVERY 8 HOURS 01/07/2024 07/31/2024 Discontinued lactobacillus acidophilus [id number] unt / pectin 100 mg oral tablet (10 sources) End: 07-31-2024 take 1 tablet by mouth at mealtime Lactobacillus Acid-Pectin (Acidophilus/Citr us Pectin) tablet Take 1 tablet by mouth in the morning. Take with meals. 07/31/2024 Discontinued take 1 tablet by amanda th once daily at breakfast acidophilus-pectin, citrus 25 million ce ll -100 mg tablet Take 1 tablet by mouth daily with breakfast. 0 Active oxyCODONE hydrochloride 5 mg oral tablet (10 sources) Opioid Agonist Start: 01-25-2024 End: 07-31-2024 take 1 tablet by mouth every six hours as needed oxyCODONE (Roxicodone) 5 MG immediate release tablet Take 5 mg by mouth every 6 (six) hours if needed 01/25/2024 07/31/2024 Discontinued Problems Active Problems Problem Classification Problem Date Documented Da te Episodic/Chronic Abdominal pain (20 sources) Unspecified abdominal pain; Translations: [Pelvic and perineal pain] Onset: 04-03-2023 Episodic Adjustment disorders (1 source) Adjustment disorder with depressed mood; Translations: [Adjustment disorder with depressed mood] 09-20-2024 Chronic Anxiety disorders (7 sources) Anxiety disorder, unspecified; Translations: [Anxiety] Onset: 04-08-2023 08-08-2024 Chronic Appendicitis and other appendiceal conditions (1 source) Unspecified acute appendicitis; Translations: [UNSPECIFIED ACUTE APPENDICITIS] Onset: 04-08-2023 Episodic Coagulation and hemorrhagic disorders (2 sources) 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 Diseases of white blood cells (2 sources) Leukocytosis 08-08-2024 Chronic Endometriosis (19 sources) Endometriosis (clinical); Translations: [Endometriosis, unspecified] Onset: 11-25-2023 08-08-2024 Chronic Genitourinary symptoms and ill-defined conditions (15 sources) Bladder pain; Translations: [Chronic bladder pain] Onset: 07-31-2024 Chronic Headache; including migraine (2 sources) Migraine 08-08-2024 Chronic Immunizations and screening for infectious disease (5 sources) Encounter for screening for human papillomavirus (HPV); Translations: [Exposure to sexually transmissible disorder] Onset: 07-26-2022 08-31-2024 Episodic Inflammatory diseases of female pelvic organs (3 sources) Acute vaginitis; Translations: [Acute vaginitis] Onset: 08-08-2024 Episodic Other diseases of veins and lymphatics (2 sources) Iliac vein compression syndrome; Translations: [Compression of vein] Onset: 02-11-2024 02-11-2024 Episodic Other female genital disorders (4 sources) Vaginal discharge; Translations: [Other specified noninflammatory disorders of vagina] 08-31-2024 Episodic Peripheral and visceral atherosclerosis (1 source) 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, other extremity; Translations: [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, other extremity] Onset: 04-27-2024 [...] Problem Classification Problem Date Documented Date Episodic/Chronic Genitourinary symptoms and ill-defined conditions (2 sources) Urinary symptoms ; Translations: [Unspecified symptoms and signs involving the genitourinary system] 07-10-2024 Episodic Mood disorders (1 source) Mood disorders Onset: 01-23-2024 01-23-2024 Other diseases of veins and lymphatics (1 source) Compression of vein; Translations: [Compression of vein] Onset: 02-11-2024 Episodic Residual codes; unclassified (1 source) Pain, unspecified; Translations: [Pain, unspecified] Onset: 01-24-2024 Episodic Results Test Name Value Interpretation Reference Range Facility Main OR Preoperative Recordo n 11-13-2024 Main OR Preoperative Record Main OR Preoperative Record Holding Area Document Type FTURO Summary Primary Physician: Julien HOYOS MD Finalized Date/Time: 11/13/24 16:38:17 Pt. Name: TAWANA SILVERMAN/Sex: 1990 Female Med Rec #: [id number] Physician: Julien HOYOS MD Financial #: [id number] Pt. Type: O Room/Bed: / Admit/Disch: 10/03/24 08:53:48 - 10/03/24 23:59:59 Institution: Case Times Holding FTURO Pre-Care Text: [...] Complaints of Pain: No Skin Integrity Intact, Dola, Warm, & Dry Vitals - EU Blood Pressure 109/72 Pulse 80 bpm Respirations 20 br/min SPO2 97 % Additional None RN Reviewed Yes Specimens Collected Last Modified By: Elizabet Grimm RN 10/03/24 09:45:24 Finalized By: Lynda CAROLINA, Lyudmila ALMONTE Document Signatures Signed By: Shalonda Jane LPN 10/03/24 09:28 GAGE Howell RN, Ruthann 11/13/24 16:38 Normal [facility] Main OR Intraoperative Recor don 10-03-2024 Main OR Intraoperative Record Main OR Intraoperative Record IntraOp Document Type FTURO Summary Primary Physician: Julien HOYOS MD Finalized Date/Time: 10/03/24 10:05:10 Pt. Name: TAWANA SILVERMAN/Sex: 1990 Female Med Rec #: [id number] Physician: Julien HOYOS MD Financial #: [id number] Pt. Type: O Room/Bed: / Admit/Disch: 10/03/24 08:53:48 - Institution: Case Times FTURO Entry 1 Patient Times In Room 10/03/24 09:43:00 Out Room 10/03/24 10:05:00 Procedure Times Start 10/03/24 09:55:00 Stop 10/03/24 10:00:00 Anesthesia Times Last Modified By: Elizabet Grimm RN 10/03/24 10:00:11 Case Attendance FTURO Entry 1 Entry 2 Entry 3 Case Attendee ROMAIN NAVARRO, Julien Grimm RN, Elizabet Goldberg CST, Nel Pearson Role Performed Surgeon - Primary Warehouse Receiving Supervisor - Primary Scrub - Primary Time In 10/03/24 09:54:00 10/03/24 09:43:00 10/03/24 09:43:00 Time Out 10/03/24 10:05:00 10/03/24 10:05:00 10/03/24 10:05:00 Procedure CYSTOSCOPY LOCAL(.) CYSTOSCOPY LOCAL(.) CYSTOSCOPY LOCAL(.) Comments Last Modified By: Sirisha RN, Elizabet Grimm RN, Elizabet Grimm RN, Elizabet Pearson 10/03/24 Deepa Pearson 10/03/24 Deepa Pearson 10/03/24 10:00:12 10:00:12 10:00:12 Surgical Procedures FTURO [...] Verified Availability Equipment, Medication Time Out Julien HOYOS MD, Verified (If Participants Sirisha CAROLINA, Elizabet Sullivan) Yusuf Mosley CST, Kimberly A Time Out [...] By: Elizabet Grimm RN 10/03/24 10:05 Normal [facility] Operative Reporton Operative Report Operative Report [...] urine. The Urethra was dilated to: 30 Arabic w/ sounds. Devices Implanted: None. Removal: Cystoscope is removed, The patient tolerated it well. Postoperative Information Discharge: Patient is discharged home with antibiotic coverage, Follow up arranged. She will start Myrbetriq 50 mg daily. Follow-up will be in 4 months. Normal [facility] Comment on above: Result Comment: Elec tronically Signed By: ROMAIN NAVARRO, Julien Garsiabr\Date and Time Signed: 10/03/24 10:11 EST IGP,APTIMA HPV,AGE GDLNon AGE GDLN ACOG TESTING Note . [facility] Comment on above: TESTS RESULT FLAG U NITS REF RANGE LAB Clinician Provided Cytology Information Source.............Vagina No. of containers..01 ThinPrep Vial Age Algo ACOG Eneida... FLAG LEGEND: L-Low Normal,H-High Normal,LL-Alert Low,HH-Alert High <-Panic Low,>-Panic High,A-Abnormal,AA-Critical Abnormal Performed at: 01 [facility] [address] [place] [address] Sandy Lemon MD, HPV APTIMA Negative Negative [facility] Comment on above: This nucleic acid am plification test detects fourteen high- risk HPV types (16,18,31,33,35,39,45,51,52,56,58,59,66,68) without differentiation. Performed at: =G - [facility], [place] [id number] Sprinkling System Irrigator: Sandy Lemon MD, Phone: [phone] Performed at: [facility] [address] [place], [place] [id number] Sprinkling System Irrigator: Holden Croft MD, Phone: [phone] IGP, APTIMA HPV, RFX 16/18,45 Note . [facility] Comment on above: TESTS RESULT FLAG UN ITS REF RANGE LAB DIAGNOSIS: 02 NEGATIVE FOR INTRAEPITHELIAL LESION OR MALIGNANCY. Specimen adequacy: 02 Satisfactory for evaluation. Performed by: Woody Aviles, [employer] ([facility]) . 02 Note: Note 03 The Pap smear is a screening test designed to aid in the detection of premalignant and malignant conditions of the uterine cervix. It is not a diagnostic procedure and should not be used as the sole means of detecting cervical cancer. Both false-positive and false-negative reports do occur. Test Methodology: Note 03 This liquid based ThinPrep(R) pap test was screened with the use of an image guided system. HPV Genotype Reflex Note 02 Criteria not met, HPV Genotype not performed. FLAG LEGEND: L-Low Normal,H-High Normal,LL-Alert Low,HH-Alert High <-Panic Low,>-Panic High,A-Abnormal,AA-Critical Abnormal Performed at: 02 [facility] Cyto Histo [address] [place] [address] Holden Croft MD, 03 WB [facility] [address] [address] Sandy Lemon MD, SPATULA-ALONE VAGINA [facility] No Panel Informationon 07-12 STAPHYLOCOCCUS EPIDERMIDIS, HAEMOLYTICUS, LUGDUNENSIS, SAPROPHYTICUS (URINA 0.000 [facility] Healthcare STAPHYLOCOCCUS EPIDERMIDIS, HAEMOLYTICUS, LUGDUNENSIS, SAPROPHYTICUS (URINA Not detected [facility] URINARY TRACT INFECTION (HTR X)on 07-12-2024 ACINETOBACTER BAUMANII 0.000 [facility] ACINETOBACTER BAUMANII Not detected [facility] MICHEAL ALBICANS, PARAPSILOSIS, TROPICALIS 0.000 [facility] MICHEAL ALBICANS, PARAPSILOSIS, TROPICALIS Not detected [facility] Healthcare MICHEAL GLABRATA 0.000 [facility] MICHEAL GLABRATA Not detected [facility] H ealtare MICHEAL KRUSEI 0.000 [facility] MICHEAL KRUSEI Not detected [facility] CITROBACTER FREUNDII 0.000 [facility] CITROBACTER FREUNDII Not detected [facility] Healthcare ENTEROBACTER AEROGENES, CLOACAE 0.000 [facility] re ENTEROBACTER AEROGENES, CLOACAE Not detected [facility] ENTEROCOCCUS FAECALIS, FAECIUM 0.000 [facility] ENTEROCOCCUS FAECALIS, FAECIUM Not detected [facility] e ESCHERICHIA COLI 0.000 [facility] ESCHERICHIA COLI Not detected [facility] H ealthcare KLEBSIELLA PNEUMONIAE, OXYTOCA 0.000 [facility] are KLEBSIELLA PNEUMONIAE, OXYTOCA Not detected [facility] are MORGANELLA MORGANII 0.000 [facility] MORGANELLA MORGANII Not detected [facility] PROTEUS MIRABILIS, VULGARIS 0.000 [facility] PROTEUS MIRABILIS, VULGARIS Not detected [facility] PSEUDOMONAS AERUGINOSA 0.000 [facility] PSEUDOMONAS AERUGINOSA Not detected [facility] SERRATIA MARCESCENS 0.000 [facility] SERRATIA MARCESCENS Not detected [facility] STAPHYLOCOCCUS AUREUS 0.000 [facility] STAPHYLOCOCCUS AUREUS Not detected [facility] STREPTOCOCCUS AGALACTIAE (GROUP B STREP) 0.000 [facility] STREPTOCOCCUS AGALACTIAE (GROUP B STREP) Not detected [facility] STREPTOCOCCUS PYOGENES (GROUP A STREP) 0.000 [facility] STREPTOCOCCUS PYOGENES (GROUP A STREP) Not detected [facility] BASIC METABOLIC PANLon 01-24 Anion gap [Moles/Vol] 7 mmol/L Normal 5-15 [facility] Comment on above: Performed By: #### C BRENNON PINR, 53496-3, BMP #### [facility] ([id number]) [address], [address] [place] [address] Calcium [Mass/Vol] 8.7 mg/dL Normal 8.5-10.5 [facility] Comment on above: Performed By: #### C BRENNON PINR, 10701-3, BMP #### [facility] ([id number]) [address], [address] [place] [address] Chloride [Moles/Vol] 106 mmol/L Normal 98-109 [facility] Comment on above: Performed By: #### C BCA, PINR, 39089-5, BMP #### [facility] ([id number]) [address], [address] [place] [address] CO2 [Moles/Vol] 23 mmol/L Normal 22-32 [facility] Comment on above: Performed By: #### C BCA, PINR, 39841-7, BMP #### [facility] ([id number]) [address], [address] [place] [address] Creatinine [Mass/Vol] 0.57 mg/dL Normal 0.40-1.00 [facility] Comment on above: Result Comment: METH OD TRACEABLE TO IDMS STANDARD Performed By: #### C BRENNON PINR, 89724-8, BMP #### [facility] ([id number]) [address], [address] [place] [address] eGFR (CKD-EPI) NON-RACE DEPENDENT >90 Normal >59 [facility] Comment on above: Result Comment: Reported eGFR is based on the CKD-EPI 2020 equation that does not use a race coefficient. Performed By: #### C BRENNON, PINR, 74197-1, BMP #### [facility] ([id number]) [address], [address] [place] [address] Glucose [Mass/Vol] 139 mg/dL High 65-99 [facility] Comment on above: Performed By: #### C BCA, PINR, 80042-1, BMP #### [facility] ([id number]) [address], [address] [place] [address] Potassium [Moles/Vol] 4.3 mmol/L Normal 3.5-5.0 [facility] Comment on above: Performed By: #### C BCA, PINR, 27097-1, BMP #### [facility] ([id number]) [address], [address] [place] [address] Sodium [Moles/Vol] 136 mmol/L Normal 134-146 [facility] Comment on above: Performed By: #### C BCA, PINR, 46577-3, BMP #### [facility] ([id number]) [address], [address] [place] [address] Urea nitrogen [Mass/Vol] 6 mg/dL Normal 5-23 [facility] Comment on above: Performed By: #### C BCA, PINR, 07112-3, BMP #### [facility] ([id number]) [address], [address] [place] [address] CBC AND AUTO DIFFon 01-25-20 24 ABSOLUTE BASOPHIL 0.0 X10E9/L Normal 0.0-0.2 [facility] Comment on above: Performed By: #### C BRENNON, PINR, 51337-5, BMP #### [facility] ([id number]) [address], [address] [place] [address] ABSOLUTE NEUTROPHIL 2.9 X10E9/L Normal 1.5-6.6 [facility] Comment on above: Performed By: #### C BRENNON, PINR, 14597-8, BMP #### [facility] ([id number]) [address], [address] [place] [address] Basophils/100 WBC (Bld) 0.1 % Normal [facility] Comment on above: Performed By: #### Anastasiya WILLETT, PINR, 87510-8, BMP #### [facility] ([id number]) [address], [address] [place] [address] Eosinophils (Bld) [#/Vol] 0.0 10*3/uL Normal 0.0-0.4 [facility] Comment on above: Performed By: #### C BRENNON, PINR, 48557-4, BMP #### [facility] ([id number]) [address], [address] [place] [address] Eosinophils/100 WBC (Bld) 0.0 % Normal [facility] Comment on above: Performed By: #### C BRENNON, PINR, 79632-2, BMP #### [facility] ([id number]) [address], [address] [place] [address] Erythrocyte distribution width (RBC) [Ratio] 11.8 % Normal 11.5-15.0 [facility] Comment on above: Performed By: #### Anastasiya WILLETT, PINR, 47522-7, BMP #### [facility] ([id number]) [address], [address] [place] [address] Hematocrit (Bld) [Volume fraction] 35.5 % Normal 35-47 [facility] Comment on above: Performed By: #### C BCA, PINR, 02124-6, BMP #### [facility] [facility] ([id number]) [address], [facility] [address] [place] [address] Hemoglobin (Bld) [Mass/Vol] 12.3 g/dL Normal 11.7-15.5 [facility] Comment on above: Performed By: #### C BRENNON, PINR, 66410-6, BMP #### [facility] ([id number]) [address], [facility] [address] [place] [address] Lymphocytes (Bld) [#/Vol] 0.4 10*3/uL Low 1.0-3.5 [facility] Comment on above: Performed By: #### C BCA, PINR, 56832-1, BMP #### [facility] ([id number]) [address], [facility] [address] [place] [address] Lymphocytes/100 WBC (Bld) 13.1 % Normal [facility] Comment on above: Performed By: #### C BCA, PINR, 65719-0, BMP #### [facility] ([id number]) [address], [facility] [address] [place] [address] MCH (RBC) [Entitic mass] 32.3 pg Normal 27-34 [facility] Comment on above: Performed By: #### C BCA, PINR, 43682-6, BMP #### [facility] ([id number]) [address] [address] [place] [address] MCHC (RBC) [Mass/Vol] 34.6 g/dL Normal 32-36 [facility] Comment on above: Performed By: #### C BCA, PINR, 09716-7, BMP #### [facility] ([id number]) [address], [address] [place] [address] MCV (RBC) [Entitic vol] 94 fL Normal 80-100 [facility] Comment on above: Performed By: #### C BRENNON, PINR, 99515-5, BMP #### [facility] ([id number]) [address], [address] [place] [address] Monocytes (Bld) [#/Vol] 0.1 10*3/uL Normal 0-0.9 [facility] Comment on above: Performed By: #### C BRENNON, PINR, 99585-4, BMP #### [facility] ([id number]) [address], [address] [place] [address] Monocytes/100 WBC (Bld) 2.4 % Normal [facility] Comment on above: Performed By: #### Anastasiya WILLETT, PINR, 52417-0, BMP #### [facility] ([id number]) [address], [address] [place] [address] Neutrophils/100 WBC (Bld) 84.4 % Normal [facility] Comment on above: Performed By: #### Anastasiya WILLETT, PINR, 13342-3, BMP #### [facility] ([id number]) [address], [address] [place] [address] Platelet mean volume (Bld) [Entitic vol] 9.1 fL Normal 7-12 [facility] Comment on above: Performed By: #### C BRENNON, PINR, 61058-6, BMP #### [facility] ([id number]) [address], [address] [place] [address] Platelets (Bld) [#/Vol] 142 10*3/uL Low 150-450 [facility] Comment on above: Performed By: #### C BCA, PINR, 42268-8, BMP #### [facility] ([id number]) [address], [address] [place] [address] RBC COUNT 3.79 X10E12/L Low 3.80-5.20 [facility] Comment on above: Performed By: #### SADAF Langford BCA, 64768-2, BMP #### [facility] ([id number]) [address], [address] [place] [address] WBC (Bld) [#/Vol] 3.4 10*3/uL Low 4.0-11.0 [facility] Comment on above: Performed By: #### C SADAF WILLETT, 30809-7, BMP #### [facility] ([id number]) [address], [address] [address] Heparin unfractionated Chrom ogenic method Qn (PPP)on 01-25-2024 ANTI XA UFH 0.68 IU/mL Normal 0.30-0.70 [facility] Comment on above: Result Comment: Opti mal time for testing is 6 hrs post dosage This test is specific for monitoring patients on UFH, and is not recommended for use with other Anti-Xa medications. Performed By: #### SADAF Langford BCA, 23738-2, BMP #### [facility] ([id number]) [address], [address] [place] [address] ANTI CARDIOLIPIN AB IGG IGA IGMon 01-24-2024 MELBA IgA <2.0 Normal 0-19.9 [facility] Comment on above: Performed By: #### Doreen SHUKLA #### [facility] ([id number]) [address], [address] [place] [address] MELBA IgG <1.6 Normal 0-19.9 [facility] Comment on above: Performed By: #### Chucky SHUKLAG #### [facility] ([id number]) [address], [address] [place] [address] MELBA IgM <1.5 Normal 0-19.9 [facility] Comment on above: Performed By: #### A CA, B2G #### [facility] ([id number]) [address], [address] [place] [address] BASIC METABOLIC PANLon 01-23 Anion gap [Moles/Vol] 8 mmol/L Normal 5-15 [facility] Comment on above: Performed By: #### 3 274-8, CBCA, BMP #### [facility] ([id number]) [address], [facility] [address] [place] [address] Calcium [Mass/Vol] 8.0 mg/dL Low 8.5-10.5 [facility] Comment on above: Performed By: #### 3 274-8, CBCA, BMP #### [facility] ([id number]) [address], [facility] [address] [place] [address] Chloride [Moles/Vol] 106 mmol/L Normal 98-109 [facility] Comment on above: Performed By: #### 3 274-8, CBCA, BMP #### [facility] ([id number]) [address], [facility] [address] [place] [address] CO2 [Moles/Vol] 22 mmol/L Normal 22-32 [facility] Comment on above: Performed By: #### 3 274-8, CBCA, BMP #### [facility] ([id number]) [address], [address] [address] Creatinine [Mass/Vol] 0.53 mg/dL Normal 0.40-1.00 [facility] Comment on above: Result Comment: METH OD TRACEABLE TO IDMS STANDARD Performed By: #### 3 274-8, CBCA, BMP #### [facility] ([id number]) [address], [address] [place] [address] eGFR (CKD-EPI) NON-RACE DEPENDENT >90 Normal >59 [facility] Comment on above: Result Comment: Reported eGFR is based on the CKD-EPI 2020 equation that does not use a race coefficient. Performed By: #### 3 274-8, CBCA, BMP #### [facility] ([id number]) [address], [address] [place] [address] Glucose [Mass/Vol] 76 mg/dL Normal 65-99 [facility] Comment on above: Performed By: #### 3 274-8, CBCA, BMP #### [facility] ([id number]) [address], [facility] [address] [place] [address] Potassium [Moles/Vol] 3.8 mmol/L Normal 3.5-5.0 [facility] Comment on above: Performed By: #### 3 274-8, CBCA, BMP #### [facility] ([id number]) [address], [facility] [address] [place] [address] Sodium [Moles/Vol] 136 mmol/L Normal 134-146 [facility] Comment on above: Performed By: #### 3 274-8, CBCA, BMP #### [facility] ([id number]) [address], [facility] [address] [place] [address] Urea nitrogen [Mass/Vol] 10 mg/dL Normal 5-23 [facility] Comment on above: Performed By: #### 3 274-8, CBCA, BMP #### [facility] ([id number]) [address], [facility] [address] [place] [address] BETA-2 GP1 AB PANELon 2023 BETA-2 GP1 IgA <2.0 Normal 0.0-19.9 [facility] Comment on above: Performed By: #### C BCA, PINR, 00034-2, BMP #### [facility] ([id number]) [address], [address] [place] [address] BETA-2 GP1 IgG <1.4 Normal 0.0-19.9 [facility] Comment on above: Performed By: #### C BCA, PINR, 60285-9, BMP #### [facility] ([id number]) [address], [address] [place] [address] BETA-2 GP1 IgM <1.5 Normal 0.0-19.9 [facility] Comment on above: Performed By: #### C BCA, PINR, 90861-8, BMP #### [facility] ([id number]) [address], [address] [place] [address] CBC AND AUTO DIFFon 01-24-20 24 ABSOLUTE BASOPHIL 0.0 X10E9/L Normal 0.0-0.2 [facility] Comment on above: Performed By: #### 3 274-8, CBCA, BMP #### [facility] ([id number]) [address], [address] [place] [address] ABSOLUTE NEUTROPHIL 3.7 X10E9/L Normal 1.5-6.6 [facility] Comment on above: Performed By: #### 3 274-8, CBCA, BMP #### [facility] ([id number]) [address], [address] [place] [address] Basophils/100 WBC (Bld) 0.4 % Normal [facility] Comment on above: Performed By: #### 3 274-8, CBCA, BMP #### [facility] ([id number]) [address], [address] [place] [address] Eosinophils (Bld) [#/Vol] 0.2 10*3/uL Normal 0.0-0.4 [facility] Comment on above: Performed By: #### 3 274-8, CBCA, BMP #### [facility] ([id number]) [address], [address] [place] [address] Eosinophils/100 WBC (Bld) 2.9 % Normal [facility] Comment on above: Performed By: #### 3 274-8, CBCA, BMP #### [facility] ([id number]) [address] [address] Erythrocyte distribution width (RBC) [Ratio] 12.3 % Normal 11.5-15.0 [facility] Comment on above: Performed By: #### 3 274-8, CBCA, BMP #### [facility] ([id number]) [address] [address] Hematocrit (Bld) [Volume fraction] 36.4 % Normal 35-47 [facility] Comment on above: Performed By: #### 3 274-8, CBCA, BMP #### [facility] ([id number]) [address] [address] Hemoglobin (Bld) [Mass/Vol] 12.4 g/dL Normal 11.7-15.5 [facility] Comment on above: Performed By: #### 3 274-8, CBCA, BMP #### [facility] ([id number]) [address] [address] Lymphocytes (Bld) [#/Vol] 1.9 10*3/uL Normal 1.0-3.5 [facility] Comment on above: Performed By: #### 3 274-8, CBCA, BMP #### [facility] ([id number]) [address] [address] Lymphocytes/100 WBC (Bld) 29.7 % Normal [facility] Comment on above: Performed By: #### 3 274-8, CBCA, BMP #### [facility] ([id number]) [address] [address] MCH (RBC) [Entitic mass] 32.5 pg Normal 27-34 [facility] Comment on above: Performed By: #### 3 274-8, CBCA, BMP #### [facility] ([id number]) [address], [address] [place] [address] MCHC (RBC) [Mass/Vol] 34.2 g/dL Normal 32-36 [facility] Comment on above: Performed By: #### 3 274-8, CBCA, BMP #### [facility] ([id number]) [address], [facility] [address] [place] [address] MCV (RBC) [Entitic vol] 95 fL Normal 80-100 [facility] Comment on above: Performed By: #### 3 274-8, CBCA, BMP #### [facility] ([id number]) [address], [facility] [address] [place] [address] Monocytes (Bld) [#/Vol] 0.5 10*3/uL Normal 0-0.9 [facility] Comment on above: Performed By: #### 3 274-8, CBCA, BMP #### [facility] ([id number]) [address], [facility] [address] [place] [address] Monocytes/100 WBC (Bld) 8.2 % Normal [facility] Comment on above: Performed By: #### 3 274-8, CBCA, BMP #### [facility] ([id number]) [address], [facility] [address] [place] [address] Neutrophils/100 WBC (Bld) 58.8 % Normal [facility] Comment on above: Performed By: #### 3 274-8, CBCA, BMP #### [facility] ([id number]) [address], [address] [place] [address] Platelet mean volume (Bld) [Entitic vol] 8.7 fL Normal 7-12 [facility] Comment on above: Performed By: #### 3 274-8, CBCA, BMP #### [facility] ([id number]) [address], [address] [place] [address] Platelets (Bld) [#/Vol] 128 10*3/uL Low 150-450 [facility] Comment on above: Performed By: #### 3 274-8, CBCA, BMP #### [facility] ([id number]) [address], [address] [place] [address] RBC COUNT 3.83 X10E12/L Normal 3.80-5.20 [facility] Comment on above: Performed By: #### 3 274-8, CBCA, BMP #### [facility] ([id number]) [address], [address] [address] WBC (Bld) [#/Vol] 6.4 10*3/uL Normal 4.0-11.0 [facility] Comment on above: Performed By: #### 3 274-8, CBCA, BMP #### [facility] ([id number]) [address], [address] [address] Heparin unfractionated Chrom ogenic method Qn (PPP)on 01-24-2024 ANTI XA UFH 0.47 IU/mL Normal 0.30-0.70 [facility] Comment on above: Result Comment: Opti mal time for testing is 6 hrs post dosage This test is specific for monitoring patients on UFH, and is not recommended for use with other Anti-Xa medications. Performed By: #### 3 274-8, CBCA, BMP #### [facility] ([id number]) [address], [address] [place] [address] dRVVT/dRVVT.excess phospholi pid Coag (PPP) [Ratio]on 01-24-2024 DILUTE VERONIKA'S [facility] VENOM Negative Normal [facility] Comment on above: Performed By: #### C BCA, PINR, 64899-2, BMP #### [facility] ([id number]) [address], [address] [place] [address] BASIC METABOLIC PANLon 01-22 Anion gap [Moles/Vol] 11 mmol/L Normal 5-15 [facility] Comment on above: Performed By: #### C BCA, PINR, 91140-3, BMP #### [facility] ([id number]) [address], [address] [place] [address] Calcium [Mass/Vol] 8.3 mg/dL Low 8.5-10.5 [facility] Comment on above: Performed By: #### C BCA, PINR, 88695-0, BMP #### [facility] ([id number]) [address], [address] [place] [address] Chloride [Moles/Vol] 106 mmol/L Normal 98-109 [facility] Comment on above: Performed By: #### C BCA, PINR, 96071-6, BMP #### [facility] ([id number]) [address], [address] [place] [address] CO2 [Moles/Vol] 21 mmol/L Low 22-32 [facility] Comment on above: Performed By: #### C BCA, PINR, 07479-5, BMP #### [facility] ([id number]) [address], [address] [place] [address] Creatinine [Mass/Vol] 0.65 mg/dL Normal 0.40-1.00 [facility] Comment on above: Result Comment: METH OD TRACEABLE TO IDMS STANDARD Performed By: #### C BCA, PINR, 98052-2, BMP #### [facility] ([id number]) [address], [address] [place] [address] eGFR (CKD-EPI) NON-RACE DEPENDENT >90 Normal >59 [facility] Comment on above: Result Comment: Reported eGFR is based on the CKD-EPI 2020 equation that does not use a race coefficient. Performed By: #### C BCA, PINR, 67431-4, BMP #### [facility] ([id number]) [address], [address] [place] [address] Glucose [Mass/Vol] 78 mg/dL Normal 65-99 [facility] Comment on above: Performed By: #### C BRENNON, PINR, 16009-5, BMP #### [facility] ([id number]) [address], [address] [place] [address] Potassium [Moles/Vol] 3.9 mmol/L Normal 3.5-5.0 [facility] Comment on above: Performed By: #### C BCA, PINR, 86311-5, BMP #### [facility] ([id number]) [address], [address] [place] [address] Sodium [Moles/Vol] 138 mmol/L Normal 134-146 [facility] Comment on above: Performed By: #### C BCA, PINR, 58255-3, BMP #### [facility] ([id number]) [address], [address] [place] [address] Urea nitrogen [Mass/Vol] 11 mg/dL Normal 5-23 [facility] Comment on above: Performed By: #### C BCA, PINR, 99851-0, BMP #### [facility] ([id number]) [address], [address] [place] [address] CBC AND AUTO DIFFon 03-10-20 24 ABSOLUTE BASOPHIL 0.0 X10E9/L Normal 0.0-0.2 [facility] Comment on above: Performed By: #### C BCA, PINR, 81839-4, BMP #### [facility] ([id number]) [address], [address] [place] [address] ABSOLUTE NEUTROPHIL 6.6 X10E9/L Normal 1.5-6.6 [facility] Comment on above: Performed By: #### C BCA, PINR, 87182-6, BMP #### [facility] ([id number]) [address], [address] [place] [address] Basophils/100 WBC (Bld) 0.3 % Normal [facility] Comment on above: Performed By: #### C BRENNON PINR, 71145-5, BMP #### [facility] ([id number]) [address], [address] [place] [address] Eosinophils (Bld) [#/Vol] 0.1 10*3/uL Normal 0.0-0.4 [facility] Comment on above: Performed By: #### C BRENNON, PINR, 66973-1, BMP #### [facility] ([id number]) [address] [address] [place] [address] Eosinophils/100 WBC (Bld) 0.8 % Normal [facility] Comment on above: Performed By: #### Anastasiya WILLETT, PINR, 28503-0, BMP #### [facility] ([id number]) [address], [facility] [address] [place] [address] Erythrocyte distribution width (RBC) [Ratio] 12.4 % Normal 11.5-15.0 [facility] Comment on above: Performed By: #### Anastasiya WILLETT, PINR, 14924-8, BMP #### [facility] ([id number]) [address] [address] [place] [address] Hematocrit (Bld) [Volume fraction] 39.4 % Normal 35-47 [facility] Comment on above: Performed By: #### C BRENNON PINR, 53858-1, BMP #### [facility] ([id number]) [address], [facility] [address] [place] [address] Hemoglobin (Bld) [Mass/Vol] 13.8 g/dL Normal 11.7-15.5 [facility] Comment on above: Performed By: #### C BRENNON, PINR, 31591-6, BMP #### [facility] ([id number]) [address], [facility] [address] [place] [address] Lymphocytes (Bld) [#/Vol] 1.9 10*3/uL Normal 1.0-3.5 [facility] Comment on above: Performed By: #### SADAF Langford BCA, 80199-2, BMP #### [facility] ([id number]) [address], [address] [place] [address] Lymphocytes/100 WBC (Bld) 20.6 % Normal [facility] Comment on above: Performed By: #### C SADAF WILLETT, 11791-5, BMP #### [facility] ([id number]) [address], [facility] [address] [place] [address] MCH (RBC) [Entitic mass] 32.7 pg Normal 27-34 [facility] Comment on above: Performed By: #### SADAF Langford BCA, 20423-3, BMP #### [facility] ([id number]) [address], [address] [place] [address] MCHC (RBC) [Mass/Vol] 34.9 g/dL Normal 32-36 [facility] Comment on above: Performed By: #### SADAF Langford BCA, 07303-2, BMP #### [facility] ([id number]) [address], [facility] [address] [place] [address] MCV (RBC) [Entitic vol] 94 fL Normal 80-100 [facility] Comment on above: Performed By: #### SADAF Langford BCA, 90239-0, BMP #### [facility] ([id number]) [address], [facility] [address] [place] [address] Monocytes (Bld) [#/Vol] 0.6 10*3/uL Normal 0-0.9 [facility] Comment on above: Performed By: #### SADAF Langford BCA, 53474-1, BMP #### [facility] ([id number]) [address], [address] [place] [address] Monocytes/100 WBC (Bld) 6.0 % Normal [facility] Comment on above: Performed By: #### Anastasiya WILLETT PINR, 30282-8, BMP #### [facility] ([id number]) [address], [facility] [address] [place] [address] Neutrophils/100 WBC (Bld) 72.3 % Normal [facility] Comment on above: Performed By: #### Anastasiya WILLETT PINR, 86104-9, BMP #### [facility] ([id number]) [address], [facility] [address] [place] [address] Platelet mean volume (Bld) [Entitic vol] 8.4 fL Normal 7-12 [facility] Comment on above: Performed By: #### Anastasiya WILLETT PINR, 64511-5, BMP #### [facility] ([id number]) [address], [address] [address] Platelets (Bld) [#/Vol] 156 10*3/uL Normal 150-450 [facility] Comment on above: Performed By: #### Anastasiya WILLETT PINR, 52411-0, BMP #### [facility] ([id number]) [address], [facility] [address] [place] [address] RBC COUNT 4.21 X10E12/L Normal 3.80-5.20 [facility] Comment on above: Performed By: #### Anastasiya WILLETT PINR, 09226-1, BMP #### [facility] ([id number]) [address] [address] [place] [address] WBC (Bld) [#/Vol] 9.1 10*3/uL Normal 4.0-11.0 [facility] Comment on above: Performed By: #### Anastasiya WILLETT, PINR, 84769-4, BMP #### [facility] ([id number]) [address], [facility] [address] [place] [address] CT CTV ABD AND PELVISon 01-13 CT [...] Hill MD on 01/23/2024 4:56 PM Normal [facility] Heparin unfractionated Chrom ogenic method Qn (PPP)on 01-23-2024 ANTI XA UFH 0.44 IU/mL Normal 0.30-0.70 [facility] Comment on above: Result Comment: Opti mal time for testing is 6 hrs post dosage This test is specific for monitoring patients on UFH, and is not recommended for use with other Anti-Xa medications. Performed By: #### 3 [id number] #### [facility] ([id number]) [address] [place] [address] PROTIME AND INRon 01-23-2024 INR Coag (PPP) [Relative time] 1.1 {INR} Normal 0.8-1.1 [facility] Comment on above: Performed By: #### C BCA, PINR, 72194-5, BMP #### [facility] ([id number]) [address], [address] [place] [address] PT Coag (PPP) [Time] 12.3 s Normal 9.8-13.2 [facility] Comment on above: Performed By: #### C BCA, PINR, 23258-5, BMP #### [facility] ([id number]) [address], [address] [place] [address] aPTT Coag (PPP) [Time]on aPTT Coag (Bld) [Time] 51 s High 26-37 [facility] Comment on above: Performed By: #### C BCA, PINR, 79495-6, BMP #### [facility] ([id number]) [address], [address] [place] [address] Angelito 01[birth year]07-2024 L Specimen: [id number] Received: 01/10/24 Status: MICHAEL Waldron Num: [id number] Spec Type: Surgical Subm Dr: Andre Treviño Tissues: A Fallopian Tube - Sterilization (BILATERAL) Procedures: HE/3, Gross/Micro L2 Age/ Patient Sex Location Account Attending Physician Tawana Silverman 33/F LABELL [id number] Andre Treviño SPEC NUM: [id number] RECD: 01/10/24 STATUS: MICHAEL WALDRON NUM: [id number] ANICETO: 01/07/[address]: Andre Treviño ENTERED: 01/10/24 [facility] DR: Lopez,Lab SPEC TYPE: [...] markedly dilated lumens throughout all 3 segments. News Intern sections are submitted in 3 cassettes as follows: A1 - Cross-sections of shortest segment A2 - Cross-sections intermediate length segment A3 - Cross-sections longest segment [facility] Codes 49980 -------- -------- Specimen: [id number] Received: 01/10/24 Status: MICHAEL Waldron Num: [id number] Spec Type: Surgical Subm Dr: Andre Treviño Tissues: A Fallopian Tube - Sterilization (BILATERAL) Procedures: RALF/Kash, Gross/Micro L2 -------- Patient: Tawana Silverman [id number] (Continued) -------- Signed (signature on file) Jani Garcia MD 01/15/24 0853 Normal [facility] AMYLASEon 04-03-2023 Amylase [Catalytic activity/Vol] 62 U/L Normal 25-115 [facility] Comment on above: Performed By: #### L IPA, BHARTI ####[facility] [address] [address]Dr. Reece Garg CBC AUTO DIFFon 04-03-2023 BASO # 0.0 103/ul Normal 0.0-0.1 [facility] Comment on above: Performed By: #### C BC #### [facility] [address] [place] [address] Dr. Reece Garg Basophils/100 WBC (Bld) 0.3 % Normal 0.2-2.0 [facility] Comment on above: Performed By: #### C BC #### [facility] [address] [place] [address] Dr. Reece Garg EO # 0.1 103/ul Normal 0.0-0.7 [facility] Comment on above: Performed By: #### C BC #### [facility] [address] [address] [address] Reece Garg Eosinophils/100 WBC (Bld) 0.6 % Critically low 0.9-7.0 [facility] Comment on above: Performed By: #### C BC #### [facility] [address] [address] [address] Reece Garg Erythrocyte distribution width (RBC) [Ratio] 11.9 % Normal 11.0-15.0 [facility] Comment on above: Performed By: #### C BC #### [facility] [address] [address] [address] Reece Garg Hematocrit (Bld) [Volume fraction] 37.7 % Normal 36.0-48.0 [facility] Comment on above: Performed By: #### C BC #### [facility] [address] [place] [address] Dr. Reece Garg Hemoglobin (Bld) [Mass/Vol] 12.9 g/dL Normal 12.0-16.0 [facility] Comment on above: Performed By: #### C BC #### [facility] [address] [place] [address] Dr. Reece Garg IG # 0.05 10e3/ul Critically high 0.00-0.03 [facility] Comment on above: Performed By: #### C BC #### [facility] [address] [place] [address] Dr. Reece Garg IG % 0.4 % Normal 0.0-0.5 [facility] Comment on above: Performed By: #### C BC #### [facility] [address] [place] [address] Dr. Reece Garg LYMPH # 2.3 103/ul Normal 1.2-3.8 [facility] Comment on above: Performed By: #### C BC #### [facility] [address] [place] [address] Dr. Reece Garg Lymphocytes/100 WBC (Bld) 20.8 % Normal 20.5-60.0 [facility] Comment on above: Performed By: #### C BC #### [facility] [address] [place] [address] Dr. Reece Garg MANUAL DIFF REQ NO Normal [facility] Comment on above: Performed By: #### C BC #### [facility] [address] [place] [address] Dr. Reece Garg MCH (RBC) [Entitic mass] 32.3 pg Normal 26.7-34.0 [facility] Comment on above: Performed By: #### C BC #### [facility] [address] [place] [address] Dr. Reece Garg MCHC (RBC) [Mass/Vol] 34.2 g/dL Normal 29.9-35.2 [facility] Comment on above: Performed By: #### C BC #### [facility] [address] [address] [address] Reece Garg MCV (RBC) [Entitic vol] 94.3 fL Normal 81.0-99.0 [facility] Comment on above: Performed By: #### C BC #### [facility] [address] [address] [address] Reece Garg MONO # 0.6 103/ul Normal 0.3-0.8 [facility] Comment on above: Performed By: #### C BC #### [facility] [address] [address] [address] Reece Garg Monocytes/100 WBC (Bld) 5.3 % Normal 1.7-12.0 [facility] Comment on above: Performed By: #### C BC #### [facility] [address] [place] [address] Dr. Reece Garg NEUT # 8.1 103/ul Critically high 1.4-6.5 [facility] Comment on above: Performed By: #### C BC #### [facility] [address] [place] [address] Dr. Reece Garg Neutrophils/100 WBC (Bld) 72.6 % Normal 43.0-75.0 [facility] Comment on above: Performed By: #### C BC #### [facility] [address] [address] [address] Reece Garg Platelet mean volume (Bld) [Entitic vol] 10.2 fL Normal 9.5-13.5 [facility] Comment on above: Performed By: #### C BC #### [facility] [address] [address] [address] Reece Garg PLT 163 103/ul Normal 150-450 [facility] Comment on above: Performed By: #### C BC #### [facility] [address] [place] [address] Dr. Reece Garg RBC 4.00 106/ul Critically low 4.20-5.40 [facility] Comment on above: Performed By: #### C BC #### [facility] [address] [address] [address] Reece Garg WBC 11.1 103/ul Critically high 4.0-11.0 [facility] Comment on above: Performed By: #### C BC #### [facility] [address] [id number] Reece Garg BASO # 0.0 103/ul Normal 0.0-0.1 [facility] Comment on above: Performed By: #### C BC #### [facility] [address] [address] [address] Reece Garg Basophils/100 WBC (Bld) 0.3 % Normal 0.2-2.0 [facility] Comment on above: Performed By: #### C BC #### [facility] [address] [place] [address] Dr. Reece Garg EO # 0.1 103/ul Normal 0.0-0.7 [facility] Comment on above: Performed By: #### C BC #### [facility] [address] [place] [address] Dr. Reece Garg Eosinophils/100 WBC (Bld) 0.7 % Critically low 0.9-7.0 [facility] Comment on above: Performed By: #### C BC #### [facility] [address] [place] [address] Dr. Reece Garg Erythrocyte distribution width (RBC) [Ratio] 12.0 % Normal 11.0-15.0 [facility] Comment on above: Performed By: #### C BC #### [facility] [address] [place] [address] Dr. Reece Garg Hematocrit (Bld) [Volume fraction] 41.4 % Normal 36.0-48.0 [facility] Comment on above: Performed By: #### C BC #### [facility] [address] [place] [address] Dr. Reece Garg Hemoglobin (Bld) [Mass/Vol] 14.3 g/dL Normal 12.0-16.0 [facility] Comment on above: Performed By: #### C BC #### [facility] [address] [place] [address] Dr. Reece Garg IG # 0.05 10e3/ul Critically high 0.00-0.03 [facility] Comment on above: Performed By: #### C BC #### [facility] [address] [place] [address] Dr. Reece Garg IG % 0.3 % Normal 0.0-0.5 [facility] Comment on above: Performed By: #### C BC #### [facility] [address] [place] [address] Dr. Reece Garg LYMPH # 1.6 103/ul Normal 1.2-3.8 [facility] Comment on above: Performed By: #### C BC #### [facility] [address] [place] [address] Dr. Reece Garg Lymphocytes/100 WBC (Bld) 10.6 % Critically low 20.5-60.0 [facility] Comment on above: Performed By: #### C BC #### [facility] [address] [place] [address] Dr. Reece Garg MANUAL DIFF REQ NO Normal [facility] Comment on above: Performed By: #### C BC #### [facility] [address] [place] [address] Dr. Reece Garg MCH (RBC) [Entitic mass] 32.1 pg Normal 26.7-34.0 [facility] Comment on above: Performed By: #### C BC #### [facility] [address] [place] [address] Dr. Reece Garg MCHC (RBC) [Mass/Vol] 34.5 g/dL Normal 29.9-35.2 [facility] Comment on above: Performed By: #### C BC #### [facility] [address] [place] [address] Dr. Reece Garg MCV (RBC) [Entitic vol] 93.0 fL Normal 81.0-99.0 [facility] Comment on above: Performed By: #### C BC #### [facility] [address] [place] [address] Dr. Reece Garg MONO # 0.7 103/ul Normal 0.3-0.8 [facility] Comment on above: Performed By: #### C BC #### [facility] [address] [place] [address] Dr. Reece Garg Monocytes/100 WBC (Bld) 4.7 % Normal 1.7-12.0 [facility] Comment on above: Performed By: #### C BC #### [facility] [address] [place] [address] Dr. Reece Garg NEUT # 12.9 103/ul Critically high 1.4-6.5 [facility] Comment on above: Performed By: #### C BC #### [facility] [address] [place] [address] Dr. Reece Garg Neutrophils/100 WBC (Bld) 83.4 % Critically high 43.0-75.0 [facility] Comment on above: Performed By: #### C BC #### [facility] [address] [place] [address] Dr. Reece Garg Platelet mean volume (Bld) [Entitic vol] 10.4 fL Normal 9.5-13.5 [facility] Comment on above: Performed By: #### C BC #### [facility] [address] [place] [address] Dr. Reece Garg PLT 194 103/ul Normal 150-450 [facility] Comment on above: Performed By: #### C BC #### [facility] [address] [place] [address] Dr. Reece Garg RBC 4.45 106/ul Normal 4.20-5.40 [facility] Comment on above: Performed By: #### C BC #### [facility] [address] [place] [address] Dr. Reece Garg WBC 15.4 103/ul Critically high 4.0-11.0 [facility] Comment on above: Performed By: #### C BC #### [facility] [address] [place] [address] ABD/PELV W CONon [...] LAVON ELIZALDE Date: 2023-04-03 01:36 Normal [facility] ER URINE PROFILEon 3 Bilirubin Ql (U) Negative Normal NEGATIVE [facility] Comment on above: Performed By: #### P REGU, ERUR #### [facility] [address] [address] [address] Reece Garg Clarity (U) CLEAR Normal CLEAR [facility] Comment on above: Performed By: #### P REGU, ERUR #### [facility] [address] [address] [address] Reece Garg Color (U) LT. YELLOW Normal YELLOW [facility] Comment on above: Performed By: #### P REGU, ERUR #### [facility] [address] [place] [address] Dr. Reece BERNABED A micrscopic examination will be performed if indicated. Normal [facility] Comment on above: Performed By: #### P REGU, ERUR #### [facility] [address] [place] [address] Dr. Reece Garg Glucose Ql (U) Negative Normal NEGATIVE [facility] Comment on above: Performed By: #### P REGU, ERUR #### [facility] [address] [place] [address] Dr. Reece Garg Hemoglobin Ql (U) Negative Normal NEGATIVE [facility] Comment on above: Performed By: #### P REGU, ERUR #### [facility] [address] [place] [address] Dr. Reece Garg Ketones Ql (U) 15 mg/dl Abnormal NEGATIVE [facility] Comment on above: Performed By: #### P REGU, ERUR #### [facility] [address] [place] [address] Dr. Reece Garg LEUKOCYTES Negative Normal NEGATIVE [facility] Comment on above: Performed By: #### P REGU, ERUR #### [facility] [address] [place] [address] Dr. Reece Garg Nitrite Ql (U) Negative Normal NEGATIVE [facility] Comment on above: Performed By: #### P REGU, ERUR #### [facility] [address] [place] [address] Dr. Reece Garg pH (U) 5.5 [pH] Normal 5-9 [facility] Comment on above: Performed By: #### P REGU, ERUR #### [facility] [address] [place] [address] Dr. Reece Garg SPEC GRAVITY <=1.005 Abnormal 1.005-<=1.025 [facility] Comment on above: Performed By: #### P REGU, ERUR #### [facility] [address] [address] [address] Reece Garg UA PROTEIN Negative Normal NEGATIVE/ TRACE [facility] Comment on above: Performed By: #### P REGU, ERUR #### [facility] [address] [place] [address] Dr. Reece Garg UR MICRO IND NOT INDICATED Normal [facility] Comment on above: Performed By: #### P REGU, ERUR #### [facility] [address] [place] [address] Dr. Recee Garg Urobilinogen Qn (U) 0.2 {Dariel'U}/dL Normal 0.2 - 1. 0 [facility] Comment on above: Performed By: #### P REGU, ERUR #### [facility] [address] [place] [address] Dr. Reece Garg LIPASEon 04-03-2023 Lipase [Catalytic activity/Vol] 62.0 U/L Critically low 73.0-393.0 [facility] Comment on above: Performed By: #### L IPA, BHARTI ####[facility] [address] [address]Dr. Reece Garg MONOon 04-03-2023 Monocytes (Bld) [#/Vol] Negative Normal NEGATIVE [facility] Comment on above: Performed By: #### M JOSE DANIEL #### [facility] [address] [place] [address] Dr. Reece Garg URon 04-03-2023 , QUAL Negative Normal NEGATIVE [facility] Comment on above: Performed By: #### P REGU, ERUR #### [facility] [address] [place] [address] Dr. Reece Garg PROF 14(COMP METB)on 023 Albumin [Mass/Vol] 3.3 g/dL Critically low 3.4-5.0 [facility] Comment on above: Performed By: #### C MP #### [facility] [address] [address] [address] Reece Garg Albumin/Globulin [Mass ratio] 1.0 {ratio} Normal [facility] Comment on above: Performed By: #### C MP #### [facility] [address] [address] [address] Reece Garg ALP [Catalytic activity/Vol] 38 U/L Critically low 46-116 [facility] Comment on above: Performed By: #### C MP #### [facility] [address] [address] [address] Reece Garg ALT [Catalytic activity/Vol] 16 U/L Normal 14-59 [facility] Comment on above: Performed By: #### C MP #### [facility] [address] [place] [address] Dr. Reece Garg Anion gap [Moles/Vol] 10.7 mmol/L Normal [facility] Comment on above: Performed By: #### C MP #### [facility] [address] [place] [address] Dr. Reece Garg AST [Catalytic activity/Vol] 10 U/L Critically low 15-37 [facility] Comment on above: Performed By: #### C MP #### [facility] [address] [place] [address] Dr. Reece Garg Bilirubin [Mass/Vol] 1.0 mg/dL Normal 0.2-1.0 [facility] Comment on above: Performed By: #### C MP #### [facility] [address] [place] [address] Dr. Reece Garg Calcium [Mass/Vol] 8.2 mg/dL Critically low 8.5-10.1 [facility] Comment on above: Performed By: #### C MP #### [facility] [address] [place] [address] Dr. Reece Garg Chloride [Moles/Vol] 106 mmol/L Normal 98-107 [facility] Comment on above: Performed By: #### C MP #### [facility] [address] [address] [address] Reece Garg CO2 [Moles/Vol] 27.0 mmol/L Normal 21.0-32.0 [facility] Comment on above: Performed By: #### C MP #### [facility] [address] [place] [address] Dr. Reece Garg Creatinine [Mass/Vol] 0.77 mg/dL Normal 0.55-1.02 [facility] Comment on above: Performed By: #### C MP #### [facility] [address] [place] [address] Dr. Reece Garg EGFR-AF ECUADOREAN >60 Normal >=60 [facility] Comment on above: Performed By: #### C MP #### [facility] [address] [place] [address] Dr. Reece Garg EGFR-NON AF ECUADOREAN >60 Normal >=60 [facility] Comment on above: Performed By: #### C MP #### [facility] [address] [address] [address] Reece Garg Globulin (S) [Mass/Vol] 3.3 g/dL Normal [facility] Comment on above: Performed By: #### C MP #### [facility] [address] [place] [address] Dr. Reece Garg Glucose [Mass/Vol] 102 mg/dL Normal 74-106 [facility] Comment on above: Performed By: #### C MP #### [facility] [address] [place] [address] Dr. Reece Garg Potassium [Moles/Vol] 3.7 mmol/L Normal 3.5-5.1 [facility] Comment on above: Performed By: #### C MP #### [facility] [address] [place] [address] Dr. Reece Garg Protein [Mass/Vol] 6.6 g/dL Normal 6.4-8.2 [facility] Comment on above: Performed By: #### C MP #### [facility] [address] [place] [address] Dr. Reece Garg Sodium [Moles/Vol] 140 mmol/L Normal 136-145 [facility] Comment on above: Performed By: #### C MP #### [facility] [address] [place] [address] Dr. Reece Garg Urea nitrogen [Mass/Vol] 8.0 mg/dL Normal 7.0-18.0 [facility] Comment on above: Performed By: #### C MP #### [facility] [address] [place] [address] Dr. Reece Garg Urea nitrogen/Creatinine [Mass ratio] 10.4 mg/mg Normal [facility] Comment on above: Performed By: #### C MP #### [facility] [address] [place] [address] Dr. Reece Garg PROTIMEon 04-03-2023 INR Coag (PPP) [Relative time] 1.06 {INR} Normal [facility] Comment on above: Performed By: #### P TT, PT #### [facility] [address] [place] [address] Dr. Reece Garg INR GUIDELINES SEE BELOW Normal [facility] Comment on above: Result Comment: JJ RED INR: 2.0 - 3.0 CONDITIONS NOT LISTED BELOW 2.5 - 3.5 FOR PROSTHETIC HEART VALVE REPLACEMENT 2.5 - 3.5 RECURRENT THROMBOSIS Performed By: #### P TT, PT #### [facility] [address] [place] [address] Dr. Reece Garg PT Coag (PPP) [Time] 11.2 s Normal 9.0-11.6 [facility] Comment on above: Performed By: #### P TT, PT #### [facility] [address] [place] [address] Dr. Reece Garg PTTon 04-03-2023 aPTT Coag (Bld) [Time] 28.1 s Normal 22.3-36.2 [facility] Comment on above: Performed By: #### P TT, PT #### [facility] [address] [place] [address] Dr. Reece Garg PAP ACOG PANEL 2: 30 to 65on 07-28-2022 . . Normal [facility] Comment on above: Result Comment: Perf ormed at: WB Performed By: #### [id number] ####[facility] [address] [address]DrHardik Garg Age Gdln ACOG Testing 30-65 [facility] Comment on above: Performed By: #### 4 [id number] ####[facility] [address] [id number] Reece Garg DIAGNOSIS: Comment Normal [facility] Comment on above: Result Comment: NEGA TIVE FOR INTRAEPITHELIAL LESION OR MALIGNANCY. Performed at: WB Performed By: #### [id number] ####[facility] [address] [place], [place] [address]Dr. Reece Garg HPV Aptima Negative Normal Negative [facility] Comment on above: Result Comment: This nucleic acid amplification test detects fourteen high-risk HPV types (16,18,31,33,35,39,45,51,52,56,58,59,66,68) without differentiation. Performed at: =G Performed By: #### [id number] ####[facility] [address] [place], [place] [address]Dr. Reece Garg Methodology: Comment [facility] Comment on above: Result Comment: This liquid based ThinPrep(R) pap test was screened with the use of an image guided system. Performed at: WB Performed By: #### [id number] ####[facility] [address] [place], [place] [address]Dr. Reece Garg Note: Comment Normal [facility] Comment on above: Result Comment: The Pap smear is a screening test designed to aid in the detection of premalignant and malignant conditions of the uterine cervix. It is not a diagnostic procedure and should not be used as the sole means of detecting cervical cancer. Both false-positive and false-negative reports do occur. . Performed at: WB Performed By: #### [id number] ####[facility] [address] [id number] Garg Performed by: Comment Normal [facility] Comment on above: Result Comment: Alexandra Cortez, [employer] (ASCP) Performed at: WB Performed By: #### 4 [id number] ####[facility] [address] [address]Dr. Reece Garg Specimen adequacy: Comment Normal [facility] Comment on above: Result Comment: Sati sfactory for evaluation. No endocervical component is identified. Performed at: WB Performed By: #### [id number] ####[facility] [address] [address]Dr. Reece Garg VAGINITIS/VAGINOSIS DNA PROB Erwin 07-24-2022 Micheal species Negative Normal Negative [facility] Comment on above: Performed By: #### V AGINT #### [facility] [address] [address] [address] Reece Garg Gardnerella vaginalis Positive Abnormal Negative [facility] Comment on above: Performed By: #### V AGINT #### [facility] [address] [address] [address] Reece Garg Trichomonas vaginalis Negative Normal Negative [facility] Comment on above: Performed By: #### V AGINT #### [facility] [address] [address] [address] Reece Garg Vital Signs Date Time Vital Sign Value Performing Clinician Facility 08-31-2024 10:09-040 Body mass index (BMI) [Ratio] 24.11 kg/m2 [email or web address] Work Phone: [facility] 08-31-2024 10:09040 Body weight 59.78 kg [email or web address] Work Phone: [facility] 08-31-2024 10:09040 Diastolic blood pressure 70 mm[Hg] [employer] Work Phone: [facility] 08-31-2024 10:09-0400 Systolic blood pressure 110 mm[Hg] Andre [employer] Work Phone: [facility] 08-08-2024 11:15-0400 Blood Pressure Location SYDNEE KAUFFMAN [facility] 08-08-2024 11:15-0400 Diastolic blood pressure 63 mm[Hg] SYDNEE ANTONIO [facility] 08-08-2024 11:15-0400 Heart rate 61 /min SYDNEE TOBARRY [facility] 08-08-2024 11:15-0400 Respiratory rate 19 /min SYDNEE TOBARRY [facility] 08-08-2024 11:15-0400 Systolic blood pressure 96 mm[Hg] SYDNEE ANTONIO [facility] 07-31-2024 09:53-0400 Body height 157.5 cm Andre Hudson DO Work Phone: [facility] 07-31-2024 09:53-0400 Body mass index (BMI) [Ratio] 23.96 kg/m2 Andre Hudson DO Work Phone: [facility] 07-31-2024 09:53-0400 Body weight 59.42 kg Andre Hudson DO Work Phone: [facility] 07-31-2024 09:53-0400 Diastolic blood pressure 68 mm[Hg] Andre Hudson DO Work Phone: [facility] 07-31-2024 09:53-0400 Systolic blood pressure 102 mm[Hg] Andre Hudson DO Work Phone: [facility] 07-10-2024 16:25-0400 Body mass index (BMI) [Ratio] 24.29 kg/m2 Bharti RIBEIRO Work Phone: [facility] 07-10-2024 16:25-0400 Body weight 60.24 kg Bharti RIBEIRO Work Phone: [facility] Healthcare Encounters Encounter Date Encounter Type Care Provider Facility Start: 04-04-2025 ambulatory Julien Smalls [facility] Start: 12-26-2024 ambulatory SYDNEE Masha ANTONIO Facili ty:[facility] [place] Start: 12-11-2024 ambulatory Sydnee Tobarry Facili ty:[facility] Start: 10-03-2024 End: 10-03-2024 ambulatory Julienalejandra HOYOS [place] Start: 10-03-2024 End: 10-03-2024 Patient encounter procedure Julien HOYOS [facility] Start: 09-20-2024 End: 09-20-2024 Bamboo flowsheet Theresa Perez [facility] Work Phone: [facility] Start: 09-20-2024 End: 09-20-2024 Bamboo flowsheet Theresa Perez [facility] Work Phone: [facility] Start: 09-20-2024 End: 09-20-2024 ambulatory THERESA PEREZ Not Available Comment on above: IRVING (generalized anx iety disorder) (CMS/HCC); Adjustment disorder with depressed mood (CMS/HCC) Start: 08-31-2024 End: 08-31-2024 Bamboo flowsheet Andre Hudson DO Work Phone: [facility] Start: 08-31-2024 End: 08-31-2024 Bamboo flowsheet Andre Hudson DO Work Phone: [facility] Start: 08-31-2024 End: 08-31-2024 Office outpatient visit 15 minutes Andre Hudson DO Work Phone: [facility] Comment on above: Vaginal discharge; STD exposure Start: 08-31-2024 End: 08-31-2024 ambulatory ANDRE HUDSON Not Available Start: 08-10-2024 End: 08-10-2024 Bamboo flowsheet Theresa Perez [facility] Work Phone: [facility] Start: 08-10-2024 End: 09-26-2024 Bamboo flowsheet Theresa Perez [facility] Work Phone: [facility] Start: 08-10-2024 End: 08-10-2024 ambulatory THERESA PEREZ [facility] Healthcare Comment on above: IRVING (generalized anx iety disorder) ([facility] Start: 08-08-2024 End: 08-08-2024 ambulatory SYDNEE KAUFFMAN Facility:[facility] Start: 08-08-2024 End: 08-08-2024 Patient encounter procedure SYDNEE KAUFFMAN [facility] Start: 08-03-2024 ambulatory SYDNEE KAUFFMAN Facility :[facility] Start: 08-03-2024 End: 08-03-2024 ambulatory ANDRE HUDSON Not Available Start: 07-31-2024 End: 07-31-2024 Bamboo flowsheet Andre Hudson DO Work Phone: [facility] Start: 07-31-2024 End: 08-04-2024 Bamboo flowsheet Andre Hudson DO Work Phone: [facility] Start: 07-31-2024 End: 08-04-2024 Clinisync Result Encounter Andre Hudson DO Work Phone: [facility] Unsolicited Start: 07-31-2024 End: 07-31-2024 Patient encounter procedure Andre Hudson DO Work Phone: [facility] Start: 07-31-2024 End: 07-31-2024 Periodic preventive med est patient 18-39 yrs Andre Husdon DO Work Phone: [facility] Comment on above: Well woman exam with routine gynecological exam; Chronic bladder pain Start: 07-31-2024 End: 07-31-2024 ambulatory ANDRE HUDSON Not Available Start: 07-18-2024 End: 07-18-2024 Bamboo flowsheet Theresa Perez [facility] Work Phone: [facility] Start: 07-18-2024 End: 07-18-2024 Bamboo flowsheet Theresa Martinez Perez [facility] Work Phone: [facility] Start: 07-18-2024 End: 07-18-2024 ambulatory THERESA Martinez PEREZ [facility] Comment on above: IRVING (generalized anx iety disorder) ([facility]) Start: 07-10-2024 End: 07-10-2024 Office outpatient visit 15 minutes Bharti RIBEIRO Work Phone: [facility] Comment on above: UTI symptoms; Vaginal discharge; STD exposure Start: 07-10-2024 End: 07-10-2024 ambulatory BHARTI FRIED Not Available Start: 07-10-2024 End: 07-12-2024 External Result Encounter Bharti RIBEIRO Work Phone: [facility] Unsolicited Start: 07-10-2024 End: 07-12-2024 External Result Encounter Bharti RIBEIRO Work Phone: [facility] Unsolicited Start: 06-29-2024 End: 06-29-2024 ambulatory THERESA PEREZ [facility] Comment on above: IRVING (generalized anx iety disorder) ([facility] Start: 05-25-2024 End: 05-25-2024 ambulatory [facility] Start: 04-27-2024 ambulatory [facility] Start: 04-04-2024 End: 04-04-2024 ambulatory ADELFO PEREZ Not Available Start: 02-16-2024 End: 02-16-2024 ambulatory THERESA PEREZ Not Available Start: 02-10-2024 End: 02-10-2024 Office outpatient visit 15 minutes Jani Bridges MD Work Phone: [facility] Comment on above: Acute deep vein thro mbosis (DVT) of iliac vein of left lower extremity ([facility]) (Primary Dx); May-Thurner syndrome Start: 02-10-2024 ambulatory [facility] Start: 01-31-2024 End: 01-31-2024 ambulatory ANDRE HUDSON Not Available Start: 01-26-2024 End: 01-26-2024 Evaluation and management of inpatient PAUL CHACON [facility] Start: 01-24-2024 End: 01-26-2024 Evaluation and management of inpatient [facility] Start: 01-24-2024 End: 01-24-2024 ambulatory DL BUCK [facility] Start: 01-24-2024 ambulatory [facility] Start: 01-23-2024 End: 01-26-2024 Evaluation and management of inpatient STEPHEN STOKES [facility] Start: 01-23-2024 End: 01-25-2024 Evaluation and management of inpatient [facility] Start: 01-20-2024 End: 01-20-2024 ambulatory BHARTI FRIED Not Available Start: 01-07-2024 End: 01-07-2024 ambulatory Andre Hudson Facility:[facility] Start: 12-14-2023 End: 12-14-2023 ambulatory ANDRE HUDSON Not Available Start: 11-04-2023 End: 11-04-2023 ambulatory ANDRE HUDSON Not Available Start: 04-03-2023 End: 04-03-[address] USMAN ALVAREZ . Facility:[facility] Start: 07-26-2022 Encounter for gynecological examination (general) (routine) without abnormal findings DR EARLENE MCDONOUGH . [facility] Start: 07-22-2022 End: 07-22-[address] EARLENE MCDONOUGH . Facility:[facility] Start: 07-22-2022 End: 07-22-2022 Encounter for gynecological examination (general) (routine) without abnormal findings DR EARLENE MCDONOUGH . Facility:[facility] Procedures Date Procedure Procedure Detail Performing Clinician Start: 07-31-2024 IGP,APTIMA HPV,AGE GDLN Andre Hudson DO Work Phone: Start: 07-10-2024 URINARY TRACT INFECT ION (HTRX) Bharti Fried PA Work Phone: Start: 02-10-2024 Follow-up visit Follow-up JANI MCGUIREAN Start: 01-23-2024 Adult depression scr eening assessment Jani Bridges MD Work Phone: Start: 01-07-2024 Fallopian tube excision SYDNEE KAUFFMAN Comment on above: partial Start: 11-15-2023 Removal of thrombus ROXANE KAUFFMAN Start: 08-24-2023 Microscopic observat ion [Identifier] in Cervix by Cyto stain Theresa Perez [facility] Work Phone: H/O: hysterectomy SYDNEE VELAZQUEZ History of appendectomy ADITI KAUFFMAN Laparoscope, device (physical object) SYDNEE KAUFFMAN Comment on above: pelvic Plan of Treatment Date Care Activity Detail Author Start: 08-24-2028 Screening for malign ant neoplasm of cervix [facility] Start: 08-06-2025 End: 08-06-2025 Patient encounter procedure 08/06/2025 10:00 AM EDT Office Visit [facility] [address] [place] [address] Andre Treviño, [address] [place] [address] [facility] Start: 01-24-2025 Adult BMI Screening Adult BMI Screen ing [facility] Start: 01-23-2025 Tobacco Screening Tobacco Screening [facility] Start: 01-22-2025 Depression Screening Depression Scre ening [facility] Start: 10-17-2024 End: 10-17-2024 Social Work 10/17/2024 11:00 AM EST Social Work [facility] [address] [place] [id number] Theresa Perez, [facility] [address] [place] [address] [facility] Start: 09-20-2024 End: 09-20-2024 Social Work 09/20/2024 8:00 AM EST Social Work [facility] [address] [place] [address] Theresa Perez, [facility] [address] [place] [address] Arrived [facility] Comment on above: Arrived Start: 09-06-2024 End: 09-06-2024 Social Work 09/06/2024 2:00 PM EDT Social Work [facility] [address] [place] [address] Theresa Perez, [facility] [address] [place] [address] [facility] Start: 08-31-2024 End: 08-31-2024 Patient encounter procedure [facility] Comment on above: Arrived Start: 08-30-2024 End: 08-30-2024 Social Work 08/30/2024 9:00 AM EDT Social Work [facility] [address] [place] [address] Theresa Perez, [facility] [address] [place] [address] [facility] Start: 08-10-2024 End: 08-10-2024 Social Work [facility] Comment on above: Arrived Start: 07-31-2024 End: 07-31-2024 Patient encounter procedure [facility] Comment on above: Arrived Start: 07-18-2024 End: 07-18-2024 Social Work 07/18/2024 11:00 AM EDT Social Work [facility] [address] [place] [address] Theresa Perez, [facility] [address] [place] [address] [facility] Start: 07-16-2024 Influenza vaccination Influenza Vacc ine (#1) [facility] Start: 02-25-2024 End: 02-10-2025 US.doppler Thoracic and Abdominal Aorta and Inferior Vena Cava and Illiac vessels Vas IVC/iliac duplex complete Vascular Ultrasound Routine Acute deep vein thrombosis (DVT) of iliac vein of left lower extremity (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 Expected: 02/25/2024 (Approximate), Expires: 02/10/2025 [facility] Work Phone: Comment on above: Expected: 02/25/2024 (Approximate), Expires: 02/10/2025 Start: 07-16-2023 Influenza vaccination Influenza Vacc ine [facility] Start: 02-14-2019 DTaP,Tdap and Td Vaccines (6 - Tdap) DTaP,Tdap and Td Vaccines (6 - Tdap) [facility] Start: 2013 Screening for malign ant neoplasm of cervix Pap Smear [facility] Start: 2010 Adult BMI Follow Up Plan Adult BMI Follow Up Plan [facility] Bacteria identified in Urine by Culture Urine culture Microbiology Routine UTI symptoms Ordered: 07/11/2024 [facility] Comment on above: Ordered: 07/11/2024 CHLAMYDIA TRACHOMATI S (GENITO/STI) CHLAMYDIA TRACHOMATIS (GENITO/STI) Lab Routine Chronic bladder pain Ordered: 07/31/2024 [facility] Comment on above: Ordered: 07/31/2024 CHLAMYDIA TRACHOMATI S (GENITO/STI) CHLAMYDIA TRACHOMATIS (GENITO/STI) Lab Routine STD exposure Ordered: 07/11/2024 [facility] Comment on above: Ordered: 07/11/2024 Cytology Cervical or vaginal smear or scraping study Pap Smear Pathology and Cytology Routine Well woman exam with routine gynecological exam Ordered: 07/31/2024 [facility] Work Phone: Comment on above: Ordered: 07/31/2024 Human papilloma viru s DNA [Presence] in Unspecified specimen by Probe with amplification HPV DNA probe, amplified Microbiology Routine Well woman exam with routine gynecological exam Ordered: 07/31/2024 [facility] Comment on above: Ordered: 07/31/2024 Neisseria gonorrhoea e DNA [Presence] in Unspecified specimen by MÓNICA with probe detection Neisseria gonorrhea DNA probe, direct Lab Routine Chronic bladder pain Ordered: 07/31/2024 [facility] Healthcare Comment on above: Ordered: 07/31/2024 Neisseria gonorrhoea e DNA [Presence] in Unspecified specimen by MÓNICA with probe detection Neisseria gonorrhea DNA probe, direct Lab Routine STD exposure Ordered: 07/11/2024 [facility] Comment on above: Ordered: 07/11/2024 SURESWAB(R) ADVANCED VAGINITIS PLUS, TMA SURESWAB(R) ADVANCED VAGINITIS PLUS, TMA Pathology and Cytology Routine Chronic bladder pain Ordered: 07/31/2024 [facility] Comment on above: Ordered: 07/31/2024 SURESWAB(R) ADVANCED VAGINITIS PLUS, TMA SURESWAB(R) ADVANCED VAGINITIS PLUS, TMA Pathology and Cytology Routine Vaginal discharge Ordered: 07/11/2024 [facility] Work Phone: Comment on above: Ordered: 07/11/2024 Immunizations Immunization Date Immunization Notes Care Provider Сергей [facility] 05-13-2021 SARS-CoV-2 (COVID-19 ) mRNA BNT-162b2 vax SYDNEE ANTONIO [facility] 04-22-2021 SARS-CoV-2 (COVID-19 ) mRNA BNT-162b2 vax SYDNEE ANTONIO [facility] 07-04-2019 hepatitis B vaccine, adult dosage SYDNEE ANTONIO [facility] 05-02-2019 hepatitis B vaccine, adult dosage SYDNEE ANTONIO [facility] 02-28-2019 hepatitis B vaccine, adult dosage SYDNEE ANTONIO [facility] 02-13-2019 Td(adult) unspecifie d formulation SYDNEE ANTONIO [facility] Comment on above: Result Comment: 2023: TENIVAC GIVEN BY DR ALVAREZ IN [place] 07-11-1997 diphtheria, tetanus toxoids and acellular pertussis vaccine SYDNEE ANTONIO [facility] 07-11-1997 measles, mumps and rubella virus vaccine SYDNEE ANTONIO [facility] 07-11-1997 poliovirus vaccine, unspecified formulation SYDNEE ANTONIO [facility] 06-23-1993 Hib, unspecified formulation SYDNEE ANTONIO [facility] 06-23-1993 measles, mumps and rubella virus vaccine SYDNEE ANTONIO [facility] 06-23-1993 poliovirus vaccine, unspecified formulation SYDNEE ANTONIO [facility] 1992 Hib, unspecified formulation SYDNEE ANTONIO [facility] 1992 Hib, unspecified formulation SYDNEE ANTONIO [facility] 1992 poliovirus vaccine, unspecified formulation SYDNEE ANTONIO [facility] 1992 Hib, unspecified formulation SYDNEE ANTONIO [facility] 1992 poliovirus vaccine, unspecified formulation SYDNEE ANTONIO [facility] Payers Date Payer Category Payer Self-pay 2022 Private Health Insurance [facility] PL[facility] Member Subscriber Plan / Payer (Effective 2022-Present) Name: Tawana Silverman Member ID: [id number] Relation to Subscriber: Self Name: Tawana Silverman Subscriber ID: [id number] Payer ID: Not on file Type: Not on file Address: [address] [address] [id number] 2022 Unknown [id number]. 1.13.424.2. 7.3.913447.315 1992 Unknown [id number] 2.16840.1.250655.3.579.2. 593 1992 Unknown [id number] 2.16.840.1.579667.3.579.2. 593 1992 Unknown [id number] 2.16.840.1.718251.3.579.2. 6 1992 Unknown [id number] 2.16.840.1.028635.3.579.2. 1286 1992 Unknown [id number] 2.16.840.1.075282.3.579.2. 128 1992 Unknown [id number] 2.16.840.1.917764.3.579.2. 128 1992 Unknown [id number] 2.16.840.1.071051.3.579.2. 128 1992 Unknown [id number] 2.16.840.1.489403.3.579.2. 1286 1992 Unknown [id number] 2.16.840.1.972180.3.579.2. 1285 1992 Unknown [id number] 2.16.840.1.980582.3.579.2. 1286 1992 Unknown [id number] 2.16.840.1.891198.3.579.2. 1285 1992 Unknown [id number] 2.16.840.1.611052.3.579.2. 1285 1992 Unknown [id number] 2.16840.1.136440.3.579.2. 1258 1992 Unknown [id number] 2.16.840.1.870698.3.579.2. 1258 1992 Unknown [id number] 2.16840.1.107576.3.579.2. 1258 1992 Unknown [id number] 2.840.1.680375.3.579.2. 1258 1992 Unknown [id number] 2.840.1.410920.3.579.2. 1258 1992 Unknown [id number] 2.16840.1.916061.3.579.2. 1258 1992 Unknown [id number] 2.840.1.483165.3.579.2. 1258 1992 Unknown [id number] 2.840.1.292253.3.579.2. 1258 1992 Unknown [id number] 2.16840.1.130247.3.579.2. 1258 1992 Unknown [id number] 2.16840.1.310807.3.579.2. 1258 1992 Unknown [id number] 2.16840.1.449756.3.579.2. 1258 1992 Unknown [id number] 2.16.840.1.638406.3.579.2. 1258 1992 Unknown [id number] 2.16840.1.682671.3.579.2. 1258 1992 Unknown [id number] 2.16840.1.488213.3.579.2. 1259 1992 Unknown [id number] 2.16.840.1.541770.3.579.2. 727 1992 Unknown [id number] 2.16.840.1.107671.3.579.2. 727 1992 Unknown [id number] 2.16.840.1.590149.3.579.2. 727 1992 Unknown [id number] 2.16.840.1.688687.3.579.2. 727 1992 Unknown [id number] 2.16.840.1.356983.3.579.2. 727 1959 Medicaid [id number] 1959 Unknown [id number] 1959 Unknown [id number] 1959 Unknown [id number] Unknown [id number] Unknown [id number] 2.16.840.1.666742.3.579.2. 531 Social History Date Type Detail Facility Start: 01-23-2024 End: 07-31-2024 Tobacco smoking status NHIS Ex-smoker [facility] History of tobacco use Current smoker [facility] History of tobacco use Cigarette Smoker P [facility] Start: 01-23-2024 End: 07-31-2024 Tobacco use and exposure Smokeless tobacco non-user [facility] Start: 01-24-2024 Alcohol intake Ex-drinker (finding) [facility] Start: 01-23-2024 End: 07-31-2024 History of Social function [facility] Start: 01-23-2024 End: 07-31-2024 [facility] [employer] [facility] Has the [employer], or [employer] threatened to shut off services in your home in past 12Mo No [facility] How often to you hav e a drink containing alcohol? Never [facility] How many standard drinks containing alcohol do you have on a typical day? Patient does not drink [facility] Start: 1992 Sex Assigned At Not on file P [employer] [facility] Start: 07-31-2024 End: 08-03-2024 Alcoholic beverage intake Lifetime non-drinker (finding) [facility] Start: 09-10-2023 Tobacco Comment 5 or less ciga rettes a day [facility] Start: 09-10-2023 [facility] Medical Equipment Procedure Code Equipment Code Equipment Origin al Text Equipment Identifier Dates Stent Vsc 18mm X 100mm Venous Nitinol Slf Expanding Abre - [id number] Start: 01-24-2024 Functional Status Date Assessment Result Facility 10-03-2024 Functional Status N/A [facility] 08-08-2024 Functional Status N/A [facility] Clinical Notes 02-10-2024 to 10-03-2024 Note Date & Type Note Facility 10-03-2024 Evaluation + Plan note Extrac casandra from: Title:Urology Progress Note Author:Gema HOYOS MD Date:10/03/24 Impression and Plan Impression: #1. She has urinary frequency, urgency and urge incontinence. 2. Her pelvic pain may be from endometriosis. Plan: #1. For now, she will try Myrbetriq 50 mg daily. Follow-up will be in 4 months for reevaluation. Future Appointments Appointment Date:12/26/2024 09:30:00 AM Scheduled Provider:SYDNEE KAUFFMAN PA-C Location:[facility] Appointment Type:URO Office Visit Appointment Date:04/04/2025 01:00:00 PM Scheduled Provider:Julien HOYOS MD Location:[facility] Appointment Type:URO Office Visit [facility] 11-19-2024 Hospital Discharge instructions Patient Education 10/03/2024 [...] Up Care 08/18/2024 15:06:34 With:Julien HOYOS Address: [address] [place] [address]- Business (1) When:01/31/2025 10:02:39 Comments:With Roxane Felder [facility] 11-19-2024 NoteProgress Note-Physician Patient: TAWANA SILVERMAN Age: [...] All Problems Endometriosis (clinical) / SNOMED CT 635113976 / Confirmed Deep venous thrombosis / SNOMED CT 620137184 / Confirmed Factor V deficiency / SNOMED CT 9660831 / Confirmed Leukocytosis / SNOMED CT 418701021 / Confirmed Migraine / SNOMED CT 62464570 / Confirmed Anxiety / SNOMED CT 43148052 / Confirmed Chronic pelvic pain in female / SNOMED CT 738749636 / Confirmed Chronic bladder pain / SNOMED CT 4857063854 / Confirmed Recurrent vaginitis / SNOMED CT 90554016 / Confirmed Histories Past Medical History: No active or resolved past medical history items have been selected or recorded. Family History: Congenital heart disease Mother Primary malignant neoplasm of female breast Grandparent Alcoholism Mother Migraines Mother Procedure history: Thrombectomy (65025395) in 2023 at 34 Years. Salpingectomy (2761025964) on 01/07/2024 at 33 Years. Comments: 08/08/2024 8:57 NIKKYT - Therese Mejia MA partial History of appendectomy (situation) (6631362231). History of - hysterectomy (context-dependent category) (668179950). Laparoscope (532166511). Comments: 08/08/2024 8:55 Therese Lowe MA pelvic Social History Social & Psychosocial Habits [...] Follow-up will be in 4 months [facility]evaluation[facility]Result Comment: Electronically Signed By: ROMAIN NAVARRO, Julien Pimentel.shikha\Date and Time Signed: 10/03/24 10:13 [id number] NotePatient Education Custom Cystoscopy with Urethral Dilation [...] if you have a fever [facility] History of Present illness Narrative* April Kirit, MARCIO - 08/31/2024 10:10 AM EDT Reason for [...] vaginosis) Endometriosis HPV (human papilloma virus) infection 2007 Ovarian cyst 2019 Vaginal Pap smear 07/2022 [...] nursing note reviewed. Exam conducted with a loss prevention research engineer present. Vitals: Estimated body mass index is [...] scheduled for a scope on 10/03/24 @ [facility]. Urology also referred patient to PT [...] of: Andre Treviño DO [id number] Hospital Discharge instructions Patient Education 08/08/2024 12:40:13 [...] known. Follow these instructions at home: Take ngig-jkg-vdyhtlb and prescription medicines only as told by [...] provider. Document Revised: 03/10/2022 Document Reviewed: 03/10/2022 [employer] Patient Education 2023 [employer]. Follow Up Care 08/03/2024 15:49:20 With:[facility] [place] Address: [address] [place] [address] Business (1) When: Unknown Comments:our supervisor shearing will be contacting you for follow-up [facility] Lopez 09-24-2024 NoteUrology Office/Clinic Note [...] test anxiety. 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 Ordered: diazepam, See Instructions, 1 tab po 30-60 mins prior to cystoscopy, # 1 tab(s), Refills(s) 0, Pharmacy: [facility]/pharmacy #[id number], 158, cm, 08/08/24 11:39:00 EDT, Height/Length Dosing, 60, kg, 08/08/24 11:39:00 EDT, Weight Dosing E&M of New Patient Moderate 45-59 Min 33476 2. Chronic pelvic pain in female (R10.2: Pelvic and perineal pain) Sp hysterectomy 2017 w several laproscopy d/t endometriosis. Had laproscopy Dec 2023 and bilat salpingectomy at that time. Pt reports no endometriosis found at that time. Will refer to [facility]PT at [facility] (her sx are a bit beyond my scope of PFPT) to assess for hypertonicpelvic floor, etc. Ordered: diazepam, See Instructions, 1 tab po 30-60 mins prior to cystoscopy, # 1 tab(s), Refills(s) 0, Pharmacy: [id number], 158, cm, 08/08/24 11:39:00 EDT, Height/Length Dosing, 60, kg, 08/08/24 11:39:00 EDT, Weight Dosing 01220 Measure Post Void residual urine and/or bladder capacity by US- non-imaging E&M of New Patient Moderate 45-59 Min 36992 Urnls Dip Stick Auto w/o Microscopy POC 60175 3. Recurrent vaginitis (N76.0: Acute vaginitis) Also reports frequent vaginal infections - bacterial and fungal. Ordered: diazepam, See Instructions, 1 tab po 30-60 mins prior to cystoscopy, # 1 tab(s), Refills(s) 0, Pharmacy: [id number], 158, cm, 08/08/24 11:39:00 EDT, Height/Length Dosing, 60, kg, 08/08/24 11:39:00 EDT, Weight Dosing E&M of New Patient Moderate 45-59 Min 98751 Follow-up With When Contact Information [facility] [address] [place] [address] Business (1) Additional Instructions: our supervisor shearing will be contacting you for follow-up Patient Education Pelvic Pain, Female Problem List/Past Medical History Ongoing Anxiety Chronic bladder pain Chronic pelvic pain in female Deep venous thrombosis Endometriosis (clinical) Factor V deficiency Leukocytosis Migraine Recurrent vaginitis Historical No qualifying data Procedure/Surgical History Salpingectomy (01/07/2024), Thrombectomy (2023), H/O: hysterectomy, History of appendectomy, Laparoscope. Medications CV (more content not included)...[facility]: Result Comment: Electronically Signed By: SYDNEE KAUFFMAN PA-C.shikha\Date and Time Signed: 08/08/2412:41 [id number] NotePatient Education Obstetrics and Gynecology Pelvic Pain, [...] Follow these instructions at home: ? Take [id number] and prescription medicines only as told by [...] provider. Document Revised: 03/10/2022 Document Reviewed: 03/10/2022 [employer] Patient Education ? 2023 [employer] 07-31-2024 History of Present illness Narrative* April Beth, HOBBER - 07/31/2024 10:00 AM EDT Reason for Appointment: Patient ID: Tawana Silverman is a 34 y.o. female who presents for Well Women Visit Patient presents today for Annual Exam. MEDICATIONS Current Outpatient Medications Medication Instructions acetaminophen (TYLENOL) 1,000 mg, Oral, Every 6 hours Eliquis DVT/PE Starter Pack 5 MG tablet therapy pack Take 2 tablets by mouth twice daily for 7 days, then take 1 tablet twice daily gabapentin (Neurontin) 300 MG capsule 1 capsule ondansetron ODT (ZOFRAN-ODT) 4 mg, Oral, Every 6 hours PRN Probiotic tablet delayed-release Every 24 hours ALLERGIES No Known Allergies PROBLEMS Active Ambulatory Problems Diagnosis Date Noted Endometriosis 11/25/2023 Pelvic pain 11/25/2023 Resolved Ambulatory Problems Diagnosis Date Noted No Resolved Ambulatory Problems Past Medical History: Diagnosis Date Abnormal Pap smear of cervix 2006 BV (bacterial vaginosis) HPV (human papilloma virus) infection 2007 Ovarian cyst 2019 Vaginal Pap smear 07/2022 [...] SYSTEMS Review of Systems: Review of Systems Genitourinary: Positive for pelvic pain and vaginal pain. All other systems reviewed and are negative. OBJECTIVE Objective: Physical Exam Constitutional: Appearance: Normal appearance. She is well-developed. Genitourinary: Vulva normal. Vaginal tenderness present. Urethral tenderness present. Breasts: Breasts are soft. Right: Normal. Left: Normal. Eyes: General: Right eye: Right eye discharge: pyridium. Cardiovascular: Rate and Rhythm: Normal rate and [...] nursing note reviewed. Exam conducted with a loss prevention research engineer present. Vitals: Estimated body mass index is 23.96 kg/m as calculated from the following: Height as of this encounter: 5' 2 . Weight as of this encounter: 131 lb. BP: 102/68 No LMP recorded. Patient has had a hysterectomy. ASSESSMENT & PLAN ICD-10-CM 1. Well woman exam with routine gynecological exam Z01.419 Pap Smear HPV DNA probe, amplified Annual Exam: Patient presents today for an annual exam. Patient states she is doing well and has complaints of bladder pain. Positive bladder swipe on pelvic exam. Pap was obtained without difficulty. Patient to have referral to Urology Dr. Emery, Sent Pyridium and Doxycycline to patients pharmacy. Orders Placed This Encounter Procedures HPV DNA probe, amplified Follow Up: Patient is to return in one year for annual unless needed otherwise. Documented by April Beth LPN on behalf of: Andre Treviño DO documented in this encounterWright Memorial [id number] History of Present illness Narrative* GEMA Earl - 07/10/2024 4:00 PM EDT Reason for Appointment: Patient ID: Tawana Silverman is a 34 y.o. female who presents for UTI Patient presents today for Acute Visit. MEDICATIONS Current Outpatient Medications Medication Instructions acetaminophen (TYLENOL) 1,000 mg, Oral, Every 6 hours azithromycin (Zithromax) 500 MG tablet Day 1: Take 2 tablets PO onetime dose; Day 2,3,4: Take 1 tablet daily Eliquis DVT/PE Starter Pack 5 MG tablet therapy pack Take 2 tablets by mouth twice daily for 7 days, then take 1 tablet twice daily gabapentin (Neurontin) 300 MG capsule 1 capsule HYDROcodone-acetaminophen ([place]) 5-325 MG tablet TAKE 1 TABLET EVERY 4 HOURS ibuprofen 800 MG tablet TAKE 1 TABLET EVERY 8 HOURS Lactobacillus Acid-Pectin (Acidophilus/[place] Pectin) tablet 1 tablet, Oral, Daily with breakfast levonorgestrel-ethinyl estradiol (Nordette) 0.15-30 MG-MCG tablet 1 tablet, Oral, Daily RT ondansetron ODT (ZOFRAN-ODT) 4 mg, Oral, Every 6 hours PRN oxyCODONE (ROXICODONE) 5 mg, Oral, Every 6 hours PRN Probiotic tablet delayed-release Every 24 hours ALLERGIES No Known Allergies PROBLEMS Active Ambulatory Problems Diagnosis Date Noted Endometriosis 11/25/2023 Pelvic pain 11/25/2023 Resolved Ambulatory Problems Diagnosis Date Noted No Resolved Ambulatory Problems Past Medical History: Diagnosis Date BV (bacterial vaginosis) Vaginal Pap smear 07/2022 Yeast infection of the vagina HISTORY PAST MEDICAL HISTORY SOCIAL HISTORY Past Medical History: Diagnosis Date BV (bacterial vaginosis) Endometriosis Vaginal Pap smear 07/2022 neg Yeast infection of the vagina Social History Tobacco Use Smoking status: Some Days Types: Cigarettes Smokeless tobacco: Not on file Tobacco comments: 5 or less cigarettes a day Substance Use Topics Alcohol use: Not on file Drug use: Not on file FAMILY HISTORY No family history on file. SURGICAL HISTORY Past Surgical History: Procedure Laterality Date CT ANGIOGRAM UPPER EXTREMITY LEFT Left 05/08/2024 CT ANGIOGRAM UPPER EXTREMITY LEFT DILATION AND CURETTAGE OF UTERUS 01/07/2024 HYSTERECTOMY 2018 PELVIC LAPAROSCOPY Endometriosis via lap SALPINGECTOMY Bilateral 01/07/2024 partial REVIEW OF SYSTEMS Review of Systems: Review of Systems Constitutional: Negative. HENT: Negative. Eyes: Negative. Respiratory: Negative. Cardiovascular: Negative. Gastrointestinal: Negative. Genitourinary: Negative. Musculoskeletal: Negative. Skin: Negative. Neurological: Negative. All other systems reviewed and are negative. Hematological: Negative. Endocrine: Negative. Allergic/Immunologic: Negative. OBJECTIVE Objective: Physical Exam Constitutional: Appearance: Normal appearance. She is normal weight. HENT: Head: Normocephalic. Cardiovascular: Rate and Rhythm: Normal rate. Pulses: Normal pulses. Pulmonary: Effort: Pulmonary effort is normal. Breath sounds: Normal breath sounds. Abdominal: Palpations: Abdomen is soft. Musculoskeletal: General: Normal range of motion. Neurological: General: No focal deficit present. Mental Status: She is alert and oriented to person, place, and time. Psychiatric: Mood and Affect: Mood normal. Behavior: Behavior normal. Thought Content: Thought content normal. Judgment: Judgment normal. Vitals and nursing note reviewed. Vitals: Estimated body mass index is 24.29 kg/m as calculated from the following: Height as of 07/29/23: 5' 2 . Weight as of this encounter: 132 lb 12.8 oz. BP: No LMP recorded. Patient has had a hysterectomy. ASSESSMENT & PLAN ICD-10-CM 1. UTI symptoms R39.9 Pt has history of chronic uti and yeast infections. Pt seen today for recurring vaginal burning anddischarge. Culutres obtained today and urine culture obtained. Pt states she had been on the mycoplama regimen and her symptoms improved and she was symptom free for several months and then returned post intercourse. Pt is schedule 07/31/24 for her annual and we will check to see how she is feeling at that time. Pt will be treated accordingly once culutres are returned. Documented by GEMA Earl on behalf of: GEMA Earl documented in this encounterWright Memorial [id number] History of Present illness Narrative* Jani Bridges MD - 02/10/2024 2:40 PM EDT Images from the original note were not included. [facility] [address] [place] [id number] Subjective: Patient ID: Tawana Silverman is a [...] Problem List Diagnosis DVT (deep venous thrombosis) ([facility]) May-Thurner syndrome Current Outpatient Medications: acetaminophen (TYLENOL [...] Jani Bridges MD, [place] documented in this encounterProNewark Hospital SystemEvaluation + Plan note No data available for this section [facility]* Diagnosis Acute deep vein thrombosis (DVT) of iliac vein of left lower extremity ([facility])- 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 Compression of vein documented in this encounter [facility]* Diagnosis Vaginal discharge Leukorrhea, not specified as infective STD exposure documented [facility] this encounter [facility]* Diagnosis [place] (generalized anxiety disorder) ([facility]) Generalized anxiety disorder Adjustment disorder with depressed mood ([facility]) Adjustment disorder with depressed mood documented [facility] this encounter [facility]* Diagnosis Well woman exam with routine gynecological exam Routine gynecological examination Chronic bladder pain documented [facility] this encounter [facility]* Diagnosis [place] (generalized anxiety disorder) (CMS/HCC) Generalized anxiety disorder documented [facility] this [facility]* Diagnosis UTI symptoms Vaginal discharge Leukorrhea, not specified as infective STD exposure documented [facility] this encounter [facility]* Diagnosis [place] (generalized anxiety disorder) (CMS/HCC) Generalized anxiety disorder documented in this encounter [facility] HealthcareInstructionsNot on filedocumented in this encounterSumma Health Wad[facility] SystemProgress note No data available for this section [facility] Summary Purpose Family History No Family History [...] complete Jani Bridges MD [address], [place] [address] Referral ID Status Reason Start Date Expiration Date V isits Requested Visits Authorized [id number] Pending Review 02/11/2024 02/10/2025 1 1 Additional Source Comments INFORMATION SOURCE (unrecogn ized section and content) DATE CREATED AUTHOR 04/23/2023 [facility] DATE CREATED AUTHOR AUTHOR'S ORGANIZ ATION 01/27/2024 [facility] DATE CREATED AUTHOR AUTHOR'S ORGANIZ ATION 05/31/2024 [facility] DATE CREATED AUTHOR AUTHOR'S ORGANIZ ATION 09/21/2024 [facility] EPIC DATE CREATED AUTHOR AUTHOR'S ORGANIZ ATION 11/15/[address] [facility] DATE CREATED AUTHOR AUTHOR'S ORGANIZ ATION 12/11/2024 [facility] Reason for Visit (unrecogniz ed section and content) Reason Comments Follow-up Thrombectomy lle. DV T and iliac stenting. Per patient she notes some discomfort to lle with mi Reason Comments STI Screening Reason Comments Follow-up Reason Comments Well Women Visit Reason Comments UTI Care Teams (unrecognized sec tion and content) Internal [employer] Engine Subassembler Relationship Specialty Start Date End Date Usman Alvarez MD [address] [place] [address] PCP - General 02/09/24 [employer] Subassembler Relationship Specialty Start Date End Date Usman Alvarez MD [address] [facility] [place] [address] PCP - General Family Medicine 03/24/23 Internal [employer] Subassembler Relationship Specialty Start Date End Date Usman Alvarez MD [address] [place] [facility] [place] [address] PCP - General Family Medicine 03/24/23 Internal [employer] Engine Subassembler Relationship Specialty Start Date End Date Usman Alvarez MD [address] [place] [facility] [place] [address] PCP - General Family Medicine 03/24/23 Internal [employer] Engine Subassembler Relationship Specialty Start Date End Date Usman Alvarez MD [address] [facility] [place] [address] PCP - General Family Medicine 03/24/23 Internal Comb[employer]ion Engine Subassembler Relationship Specialty Start Date End Date Usman Alvarez MD [address] [facility] [place] [address] PCP - General Family Medicine 03/24/23 Internal Comb[employer]ion Engine Subassembler Relationship Specialty Start Date End Date Usman Alvarez MD [address] [place] [facility] [place] [address] PCP - General Family Medicine 03/24/23 FOR [...] BE BASED ON THE PRIMARY CLINICAL RECORDS. [facility] CenterIndoorAt[facility]. provides no warranty or guarantee of the accuracy or completeness of information in this document.
== END 2024-12-18 07:35 | disposition home or self-care (01) ==
LOC: MRI 07:36
PROVIDERS: PCP Family Medicine
DX: M25.552 Pain in left hip (principal); M53.3 Sacrococcygeal disorders, not elsewhere classified
CPT/HCPCS: 72197; 73721; A9575

== ENCOUNTER 2025-04-03 19:38 | Outpatient (REF) | payer BC, SELFPAY ==
--- OUTSIDE RECORDS SUMMARY | 2025-04-03 19:44 | XMS_ITS | CCD ---
Author Organization [facility] Care Team Providers Care Dispatcher [employer]obile [employer]ental Name Role Phone RAIN ., DR MARY Attending Unavailable HOY ., DR MARY Admitting Unavailable HOY ., DR MARY Primary Care Unavailable HOY ., DR MARY Consulting Unavailable SARAI WILKINS Consulting Unavailable LAVON ELIZALDE Consulting Unavailable SISTER, CUCA Consulting Unavailable ARTURO II, LUL Consulting Unavailable TAMLYN ., DL Consulting Unavailable KARASIFilipe ., DR HENAO Admitting [...] Attending Unavailable ADDISON, MOHAMED F Referring Unavailable ADDISON, MOHAMED F Attending Unavailable USMAN ALVAREZ M Primary Care Unavailable ADDISON, MOHAMED F Attending Unavailable USMAN ALVAREZ M Referring Unavailable USMAN ALVAREZ M Primary Care Unavailable ADDISON, MOHAMED F Attending Unavailable USMAN ALVAREZ M Referring Unavailable USMAN ALVAREZ M Primary Care Unavailable Usman Alvarez Primary Care Physician Usman Alvarez MD Primary Care Provider [phone] ANDRE TREVIÑO Attending Unavailable BHARTI FRIED Attending Unavailable ANDRE TREVIÑO Attending Unavailable THERESA PEREZ Attending Unavailable ADELFO PEREZ Attending Unavailable USMAN ALVAREZ Referring Unavailable THERESA PEREZ Attending Unavailable ANDRE TREVIÑO Attending Unavailable BHARTI FRIED Attending Unavailable THERESA PEREZ Attending Unavailable ANDRE TREVIÑO Attending Unavailable THERESA PEREZ Attending Unavailable ANDRE TREVIÑO Attending Unavailable THERESA PEREZ Attending Unavailable Usman Alvarez MD Primary Care Provider [phone] Sydnee Kauffman PA-C Attending Provider Usman Alvarez MD Primary Care Provider [phone] Usman Alvarez Primary Care Unavailable Sydnee Kauffman Attending Unavailable Sydnee Kauffman Admitting Unavailable Usman Alvarez MD Primary Care Provider [phone] SYDNEE KAUFFMAN Attending Unavailable Julien HOYOS Referring Unavailable SYDNEE KAUFFMAN Attending Unavailable HOYOSJulien R Admitting Unavailable HOYOSJulien R Attending Unavailable Sun HOYOSrick R Referring Unavailable Julien HOYOS R Attending Unavailable Sun HOYOSrick Slim Referring Unavailable Usman Alvarez MD Primary Care Provider [phone] Chris [facility], Theresa Martinez Unavailable [phone] Allergies Allergy Classification Reported Allergen(s) Allergy Type Date of Onset Reaction(s) Facility (1 source) No Known Medication Allergies; Translations: [No Known Medication Allergies] Propensity to adverse reactions (disorder) [facility] Repository Medications Current Medications Medication Drug Class(es) Dates Sig (Normalized) Sig (Original) acetaminophen 500 mg oral tablet (20 sources) Start: 01-25-2024 take 2 tablets by mouth every six hours acetaminophen (Tylenol) 500 MG tablet Take 1,000 mg by mouth every 6 (six) hours 01/25/2024 Active apixaban 5 mg oral tablet (20 sources) Factor Xa Inhibitor Start: 02-11-2024 take 1 tablet by mouth in the morning, then take 1 tablet by mouth at bedtime apixaban (ELIQUIS) 5 mg tablet 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 60 tablet 3 04/27/2024 Active Start: 01-25-2024 take 2 tablets by [...] take 1 tablet twice daily 74 tablet 01/25/2024 Active Start: 01-25-2024 take 2 tablets by mo uth twice daily, then take 1 tablet by mouth twice daily apixaban (ELIQUIS DVT-PE TREAT 30D START) 5 mg (74 tabs) tablets,dose pack tablet Take 2 tablets by mouth twice daily for 7 days, then take 1 tablet twice daily 74 tablet 0 01/25/2024 Active aspirin 81 mg chewable tablet (10 sources) Platelet Aggregation Inhibitor, Nonsteroidal Anti-inflammatory Drug Start: 03-02-2025 aspirin 81 mg chewable tablet CHEW 1 TABLET (81 MG TOTAL) AND SWALLOW IN THE MORNING. 90 tablet 30 03/02/2025 Active Start: 08-08-2024 [facility] 81 MG CHEWABLE TAB [facility] ASP[facility] 81 MG CHEWABLE TAB Start Date: 08/08/24 Status: Ordered Start: 02-11-2024 End: 03-02-2025 aspirin 81 mg chewable table t Chew 1 tablet (81 mg total) and swallow in the morning. 30 tablet 90 02/11/2024 03/02/2025 Discontinued Start: 01-26-2024 End: 02-25-2024 take 1 tablet [...] Active cyclobenzaprine hydrochloride 10 mg oral tablet (3 sources) Muscle Relaxant Start: 09-04-2024 take 0.5 [...] cystoscopy, # 1 tab(s), Refills(s) 0, Pharmacy: [facility]/pharmacy #[id number], 158, cm, 08/08/24 11:39:00 EDT, Height/Length [...] Status: Ordered gabapentin 300 mg oral capsule (20 sources) Anti-epileptic Agent Start: 05-26-2024 gabapentin (Neurontin) 300 MG capsule 1 capsule 05/26/2024 Active lactobacillus acidophilus [id number] unt / pectin 100 mg oral tablet (14 sources) take 1 tablet by mouth once daily at breakfast acidophilus-pect in, citrus 25 million cell -100 mg tablet Take 1 tablet by mouth daily with breakfast. Active End: 07-31-2024 take 1 tablet by mouth at mealtime Lactobacillus Acid-Pectin (Acidophilus/[place] Pectin) tablet Take 1 tablet by mouth in the morning. Take with meals. 07/31/2024 Discontinued Flagyl (3 sources) Nitroimidazole Antimicrobial Start: 08-08-2024 F lagyl Oral Start Date: 08/08/24 Status: Ordered Start: [...] Daily, # 30 tab(s), Refills(s) 6, Pharmacy: [facility]/pharmacy #[id number], 158, cm, 08/08/24 11:39:00 EDT, Height/Length Dosing, 60, kg, 08/08/24 11:39:00 EDT, Weight Dosing Start Date: 10/03/24 Status: Ordered Nature's Bounty Probiotic (3 sources) Start: 08-08-2024 Nature's Bounty Probiotic Oral, Daily Start Date: 08/08/24 Status: Ordered ondansetron 4 mg disintegrating oral tablet (20 sources) Serotonin-3 Receptor Antagonist Start: 02-08-2024 take [...] Active oxyCODONE hydrochloride 5 mg oral tablet (14 sources) Opioid Agonist Start: 01-25-2024 End: 07-31-2024 [...] Max Daily Amount: 20 mg 10 tablet 01/25/2024 Active phenazopyridine hydrochloride 100 mg oral tablet (11 sources) Start: 07-31-2024 phenazopyridine (Pyridium) 100 MG tablet Indications: Chronic bladder pain Take 1 tablet (100 mg) by mouth 3 (three) times a day as needed for bladder spasms for up to 9 doses 9 tablet 07/31/2024 Active Probiotic tablet delayed-release (18 sources) Probiotic tablet delayed-release 1 (one) time each day at the same time. Active Completed/Discontinued Medications Medication Drug Class(es) Dates Sig (Normalized) Sig (Original) acetaminophen 325 mg / HYDROcodone bitartrate 5 mg oral tablet (9 sources) Opioid Agonist Start: 01-07-2024 End: 07-31-2024 HYDROcodone-acetam inophen ([place]) 5-325 MG tablet TAKE 1 TABLET EVERY [...] procedure, # 2 tab(s), Refills(s) 0, Pharmacy: [facility]/pharmacy #[id number], 158, cm, 08/08/24 11:39:00 EDT, Height/Length Dosing, 60, kg, 08/08/24 11:39:00 EDT, Weight Dosing Start Date: 08/21/24 Status: Ordered ethinyl estradiol 0.03 mg / levonorgestrel 0.15 mg oral tablet (14 sources) Progestin, Estrogen, Progestin-containin g Intrauterine Device Start: 01-26-2024 End: 07-31-2024 levonorgestrel-eth inyl estradiol ([place]) 0.15-30 MG-MCG tablet Indications: Endometriosis Take 1 tablet by mouth in the morning. 28 tablet 12 01/26/2024 07/31/2024 Discontinued take 1 tablet by amanda th once in the morning levonorgestreL-ethinyl estrad (NORDETTE) 0.15-0.03 mg per tablet Take 1 tablet by mouth in the morning. Active take 1 tablet by amanda th once in the morning levonorgestreL-ethinyl estrad (NORDETTE) 0.15-0.03 mg per tablet Take 1 tablet by mouth in the morning. 0 Active ibuprofen 800 mg oral tablet (9 sources) Nonsteroidal Anti-inflammatory Drug Start: 01-07-2024 End: 07-31-2024 ibuprofen 800 MG tablet TAKE 1 TABLET EVERY 8 HOURS 01/07/2024 07/31/2024 Discontinued Problems Active Problems Problem Classification Problem Date Documented Date Episodic/Chronic Adjustment disorders (1 source) Adjustment disorder with depressed mood; Translations: [Adjustment disorder with depressed mood] 09-20-2024 Chronic Anxiety disorders (8 sources) Anxiety disorder, unspecified; Translations: [Anxiety] Onset: 04-08-2023 08-08-2024 Chronic Appendicitis and other appendiceal conditions (1 source) Unspecified acute appendicitis; Translations: [UNSPECIFIED ACUTE APPENDICITIS] Onset: 04-08-2023 Episodic Coagulation and hemorrhagic disorders (3 sources) 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 Diseases of white blood cells (3 sources) Leukocytosis 08-08-2024 Chronic Endometriosis (20 sources) Endometriosis (clinical); Translations: [Endometriosis, unspecified] Onset: 11-25-2023 08-08-2024 Chronic Genitourinary symptoms and ill-defined conditions (18 sources) Bladder pain; Translations: [Chronic bladder pain] Onset: 07-31-2024 Chronic Headache; including migraine (4 sources) Migraine; Translations: [Cluster headache] 08-08-2024 Chronic Immunizations and screening for infectious disease (5 sources) Encounter for screening for human papillomavirus (HPV); Translations: [Exposure to sexually transmissible disorder] Onset: 07-26-2022 08-31-2024 Episodic Inflammatory diseases of female pelvic organs (4 sources) Acute vaginitis; Translations: [Acute vaginitis] Onset: 08-08-2024 Episodic Mood disorders (1 source) Depressive disorder 12-26-2024 Chronic Other female genital disorders (4 sources) Vaginal discharge; Translations: [Other specified noninflammatory disorders of vagina] 08-31-2024 Episodic Peripheral and visceral atherosclerosis (5 sources) Unspecified atherosclerosis of [place] arteries of extremities, other extremity; Translations: [Occlusion of artery of upper extremity] Onset: 04-27-2024 04-27-2024 Chronic Residual codes; unclassified (1 source) [...] [Pelvic and perineal pain] Onset: 04-03-2023 Episodic Genitourinary symptoms and ill-defined conditions (2 sources) Urinary symptoms ; Translations: [Unspecified symptoms and signs involving the genitourinary system] 07-10-2024 Episodic Mood disorders (5 sources) Mood disorders Onset: 01-23-2024 01-23-2024 Other diseases of veins and lymphatics (1 source) Compression of vein; Translations: [Compression of vein] Onset: 02-11-2024 Episodic Other diseases of veins and lymphatics (8 sources) Iliac vein compression syndrome; Translations: [Compression of vein] Onset: 02-11-2024 04-27-2024 Episodic Phlebitis; thrombophlebitis and thromboembolism (13 sources) Acute embolism and thrombosis of left iliac vein; Translations: [Acute embolism and thrombosis of unspecified deep veins of unspecified lower extremity] Onset: 01-23-2024 08-08-2024 Episodic Residual codes; unclassified (1 source) Pain, unspecified; Translations: [Pain, unspecified] Onset: 01-24-2024 Episodic Results Test Name Value Interpretation Reference Range Facility Urology Office/Clinic Noteon 12-26-2024 Urology Office/Clinic Note Urology Office/Clinic Note Chief Complaint 3 mt f/u HPI Staff 34 year old female here for 2-3 mth f/u after Cysto on 10/03/24. Dx: chronic bladder pain., chronic pelvic pain, recurrent vaginitis pt stated she stopped the Myrbetriq back in November due to liao, and she is doing well without it Dysuria: _yes Incomplete bladder emptying: _no Hematuria: _no Frequency: _q3-4 hrs Urgency: _no Nocturia: _none Stream: _normal Leaking: _no Post void dripping: _no Wearing pads/ Depends: _pads Urge incontinence: _no Stress incontinence: _rarely Incontinence without Sensory Awareness: _no Abdominal pain: _no Flank pain: _yes Sexual complaints: _ Review of Systems PHQ Score Initial Depression Screen Score: 1 SCORE Physical Exam Vitals & Measurements HR: 70(Peripheral) BP: 130/90 HT: 63 in HT: 159 cm WT: 60 kg WT: 132.277 lb BMI: 23.73 Assessment/Plan 1. Chronic bladder pain (R39.82: Chronic bladder pain) S/o cysto/UD 10/03/24 w PRW. He started Myrbetriq at that time. Pt noticed improvement in urgency while on it but stopped it in November d/t cost. Does not feel she needs to resume it or an alternative medication. Says urgency has improved. Has been doing PFPT at [facility] since August. Noticing a lot of improvement in bladder pain, pelvic pain, even chronic hip/low back pain. Very pleased with results. No current urinary complaints. BBSQ 9 good control. UA completed in office today shows no microhematuria or signs of infection. Offered continued scheduled follow up with our clinic vs following up PRN. Pt prefers the latter. Ordered: diazepam, See Instructions, 1 tab po 30-60 mins prior to cystoscopy, # 1 tab(s), Refills(s) 0, [id number] 158, cm, 08/08/24 11:39:00 EDT, Height/Length Dosing, 60, kg, 08/08/24 11:39:00 EDT, Weight Dosing E&M of Est. Patient Low 20-29 Min [id number] Urnls Dip Stick Auto w/o Microscopy POC [id number] Follow-up With When Contact Information [facility] Additional Instructions: Only if needed/new problems arise. No scheduled appointment indicated at this time. Problem List/Past Medical History Ongoing Anxiety Chronic bladder pain Chronic pelvic pain in female Deep venous thrombosis Endometriosis (clinical) Factor V deficiency Leukocytosis Migraine Recurrent vaginitis Historical No qualifying data Procedure/Surgical History Salpingectomy (01/07/2024), Thrombectomy (2023), H/O: hysterectomy, History of appendectomy, Laparoscope. Medications [facility] ASP[facility] 81 MG CHEWABLE TAB, 0 Eliquis 5 mg oral tablet, 5 mg= 1 tab(s) gabapentin 300 mg Cap, 300 mg= 1 cap(s) Nature's Bounty Probiotic, Oral, Daily Allergies No Known Medication Allergies Social History Alcohol - Denies Alcohol Use, 08/08/2024 Never., 12/21/2024 Substance Abuse Never., 12/21/2024 Tobacco Former smoker, quit more than 30 days ago Tobacco Use:., 12/26/2024 Family History Alcoholism: Mother. Congenital heart disease: Mother. Migraines: Mother. Primary malignant neoplasm of female breast: Grandparent. Immunizations Vaccine Date Status Comments SARS-CoV-2 (COVID-19) mRNA BNT-162b2 vax 05/13/2021 Recorded SARS-CoV-2 (COVID-19) mRNA BNT-162b2 vax 04/22/2021 Recorded hepatitis B adult vaccine 07/04/2019 Recorded hepatitis B adult vaccine 05/02/2019 Recorded hepatitis B adult vaccine 02/28/2019 Recorded Td(adult) unspecified formulation 02/13/2019 Recorded 2024-08-08: TENIVAC GIVEN BY DR ALVAREZ IN [place] poliovirus vaccine, inactivated 07/11/1997 Recorded measles/mumps/rubella virus vaccine 07/11/1997 Recorded diphtheria/pertussis, acel/tetanus ped 07/11/1997 Recorded poliovirus vaccine, inactivated 06/23/1993 Recorded measles/mumps/rubella virus vaccine 06/23/1993 Recorded Hib, unspecified formulation 06/23/1993 Recorded Hib, unspecified formulation 1992 Recorded poliovirus vaccine, inactivated 1992 Recorded Hib, unspecified formulation 1992 Recorded poliovirus vaccine, inactivated 1992 Recorded Hib, unspecified formulation 1992 Recorded Lab Results Ambulatory Point of Care Results Bilirubin Urine Dipstick: 1+ Small (12/26/24 10:01:00) Blood Urine Dipstick: Negative (12/26/24 10:01:00) Glucose Urine Dipstick: Negative (12/26/24 10:01:00) Ketones Urine Dipstick: Trace - 5 mg/dl (12/26/24 10:01:00) Leukocytes Urine Dipstick: Negative (12/26/24 10:01:00) Nitrite Urine Dipstick: Negative (12/26/24 10:01:00) Protein Urine Dipstick: 2+ (100 mg/dl) (12/26/24 10:01:00) Specific [place] Urine Dipstick: 1.025 (12/26/24 10:01:00) Urine Appearance Urine Dipstick: Clear (12/26/24 10:01:00) Urine Color Urine Dipstick: Yellow (12/26/24 10:01:00) Urobilinogen Urine Dipstick: Normal 0.2-1 EU/dl (12/26/24 10:01:00) pH Urine Dipstick: 6.5 (12/26/24 10:01:00) Normal [facility] Comment on above: Result Comment: Elec tronically Signed By: SYDNEE KAUFFMAN PA-C\.shikha\Date and Time Signed: 12/26/24 10:31 EST Main OR Preoperative Recordo n 11-13-2024 Main OR Preoperative Record Main OR Preoperative Record Holding Area Document Type FTURO Summary Primary Physician: Julien HOYOS MD Finalized Date/Time: 11/13/24 16:38:17 Pt. Name: TAWANA SILVERMAN/Sex: 1990 Female Med Rec #: [id number] Physician: Julien HOYOS MD Financial #: [id number] Pt. Type: O Room/Bed: / Admit/Disch: 10/03/24 [...] Complaints of Pain: No Skin Integrity Intact, [place], Warm, & Dry Vitals - EU Blood Pressure 109/72 Pulse 80 bpm Respirations 20 br/min SPO2 97 % Additional None RN Reviewed Yes Specimens Collected Last Modified By: Elizabet Grimm RN 10/03/24 09:45:24 Finalized By: GAGE Howell RN, Ruthann Document Signatures Signed By: Shalonda Jane LPN 10/03/24 09:28 GAGE Howell RN, Ruthann 11/13/24 16:38 Normal [facility] Main OR Intraoperative Recor don 10-03-2024 Main OR Intraoperative Record Main OR Intraoperative Record IntraOp Document Type FTURO Summary Primary Physician: Julien HOYOS MD Finalized Date/Time: 10/03/24 10:05:10 Pt. Name: TAWANA SILVERMAN/Sex: 1990 Female Med Rec #: [id number] Physician: Julien HOYOS MD Financial #: [id number] Pt. Type: O Room/Bed: / Admit/Disch: 10/03/24 [...] Nel Pearson Role Performed Surgeon - Primary Guitar Maker Hand - Primary Scrub - Primary Time In 10/03/24 09:54:00 10/03/24 09:43:00 10/03/24 09:43:00 Time Out 10/03/24 10:05:00 10/03/24 10:05:00 10/03/24 10:05:00 Procedure CYSTOSCOPY LOCAL(.) CYSTOSCOPY LOCAL(.) CYSTOSCOPY LOCAL(.) Comments Last Modified By: Sirisha CAROLINA, Elizabet Grimm RN, Elizabet Grimm RN, Elizabet Pearson 10/03/24 Deepa Pearson 10/03/24 Deepa P 10/03/24 10:00:12 10:00:12 10:00:12 Surgical Procedures FTURO Entry 1 Procedure Description Procedure CYSTOSCOPY LOCAL Modifiers . Surgeon Description CYSTOSCOPY, URETHRAL DILATION Primary Procedure Yes Primary Surgeon Julien HOYOS MD Start 10/03/24 09:55:00 Stop 10/03/24 10:00:00 Anesthesia [...] Position Verified Availability Equipment, Medication Time Out ROMAIN NAVARRO, Julien Smalls, Verified (If Participants Sirisha CAROLINA, Elizabet Applicable) Deepa Pearson, Yusuf PARKS, Nel Jason Time Out Complete 10/03/24 09:54:00 Allergies Reviewed? [...] By: Elizabet Grimm RN 10/03/24 10:05 Normal [facility] Operative Reporton Operative Report Operative Report Patient: [...] urine. The Urethra was dilated to: 30 Bengali w/ sounds. Devices Implanted: None. Removal: Cystoscope is removed, The patient tolerated it well. Postoperative Information Discharge: Patient is discharged home with antibiotic coverage, Follow up arranged. She will start Myrbetriq 50 mg daily. Follow-up will be in 4 months. [facility] Comment on above: Result Comment: Elec tronically Signed By: Julien HOYOS MD\.br\Date and Time Signed: 10/03/24 10:11 EST IGP,APTIMA HPV,AGE GDLNon AGE GDLN ACOG TESTING Note . [facility] Comment on above: TESTS RESULT FLAG UN ITS REF RANGE LAB Clinician Provided Cytology Information Source.............Vagina No. of containers..01 ThinPrep Vial Age Algo ACOG Eneida... 30-65 FLAG LEGEND: L-Low Normal,H-High Normal,LL-Alert Low,HH-Alert High <-Panic Low,>-Panic High,A-Abnormal,AA-Critical Abnormal Performed at: 01 = [address] [address] Sandy Lemon MD, HPV APTIMA Negative Negative [facility] Comment on above: This nucleic acid am plification test detects fourteen high- risk HPV types (16,18,31,33,35,39,45,51,52,56,58,59,66,68) without differentiation. Performed at: =G - [facility] [id number] In Flight Refueling Manager: Sandy Lemon MD, Phone: [phone] Performed at: [facility] [address] [place] [id number] In Flight Refueling Manager: Holden Croft MD, Phone: [phone] IGP, APTIMA HPV, RFX 16/18,45 Note . [facility] Comment on above: TESTS RESULT FLAG UN ITS REF RANGE LAB DIAGNOSIS: 02 NEGATIVE FOR INTRAEPITHELIAL LESION OR MALIGNANCY. Specimen adequacy: 02 Satisfactory for evaluation. Performed by: Sola Aviles, Lion Tamer (ASC) . Note: Note 03 The Pap smear is [...] High,A-Abnormal,AA-Critical Abnormal Performed at: 02 [facility] [address] [place] [address] Holden Croft MD, 03 WB [facility] [address] [address] Sandy Lemon MD, SPATULA-ALONE VAGINA [facility] No Panel Informationon 07-12 STAPHYLOCOCCUS EPIDERMIDIS, HAEMOLYTICUS, LUGDUNENSIS, SAPROPHYTICUS (URINA 0.000 [facility] STAPHYLOCOCCUS EPIDERMIDIS, HAEMOLYTICUS, LUGDUNENSIS, SAPROPHYTICUS (URINA Not detected [facility] URINARY TRACT INFECTION (HTR X)on 07-12-2024 ACINETOBACTER BAUMANII 0.000 [facility] ACINETOBACTER BAUMANII Not detected [facility] MICHEAL ALBICANS, PARAPSILOSIS, TROPICALIS 0.000 [facility] MICHEAL ALBICANS, PARAPSILOSIS, TROPICALIS Not detected [facility] MICHEAL GLABRATA 0.000 [facility] MICHEAL GLABRATA Not detected [facility] MICHEAL KRUSEI 0.000 [facility] MICHEAL KRUSEI Not detected [facility] CITROBACTER FREUNDII 0.000 [facility] CITROBACTER FREUNDII Not detected [facility] ENTEROBACTER AEROGENES, CLOACAE 0.000 [facility] ENTEROBACTER AEROGENES, CLOACAE Not detected [facility] ENTEROCOCCUS FAECALIS, FAECIUM 0.000 [facility] ENTEROCOCCUS FAECALIS, FAECIUM Not detected [facility] ESCHERICHIA COLI 0.000 [facility] ESCHERICHIA COLI Not detected [facility] KLEBSIELLA PNEUMONIAE, OXYTOCA 0.000 [facility] KLEBSIELLA PNEUMONIAE, OXYTOCA Not detected [facility] MORGANELLA MORGANII 0.000 [facility] MORGANELLA [...] (GROUP A STREP) Not detected [facility] US.doppler Lower extremity a rtery - righton 04-03-2024 Radiology Study observation (narrative) [facility] US.doppler Upper extremity v ein - rightOrdered By: Janet Almaguer on 04-03-2024 Radiology Study observation (narrative) [facility] US.doppler Lower extremity a rtery - righton 03-31-2024 [facility] US.doppler Upper extremity v ein - rightOrdered By: Janet Almaguer on 03-30-2024 [facility] BASIC METABOLIC PANLon 01-24 Anion gap [Moles/Vol] 7 mmol/L Normal 5-15 [facility] Comment on above: Performed By: #### C BCA, PINR, 88806-9, BMP #### [facility] ([id number]) [address] [place] [address] Calcium [Mass/Vol] 8.7 mg/dL Normal 8.5-10.5 [facility] Comment on above: Performed By: #### C BCA, PINR, 30046-9, BMP #### [facility] ([id number]) [address] [place] [address] Chloride [Moles/Vol] 106 mmol/L Normal 98-109 [facility] Comment on above: Performed By: #### C BCA, PINR, 42740-6, BMP #### [facility] ([id number]) [address], [facility] [address] [place] [address] CO2 [Moles/Vol] 23 mmol/L Normal 22-32 [facility] Comment on above: Performed By: #### C BCA, PINR, 65782-5, BMP #### [facility] ([id number]) [address] [facility] [address] [place] [address] Creatinine [Mass/Vol] 0.57 mg/dL Normal 0.40-1.00 [facility] Comment on above: Result Comment: METH OD TRACEABLE TO IDMS STANDARD Performed By: #### C BCA, PINR, 39905-2, BMP #### [facility] ([id number]) [address] [facility] [address] [place] [address] eGFR (CKD-EPI) NON-RACE DEPENDENT >90 Normal >59 [facility] Comment on above: Result Comment: Reported eGFR is based on the CKD-EPI 2020 equation that does not use a race coefficient. Performed By: #### C BCA, PINR, 27431-2, BMP #### [facility] ([id number]) [address] [place] [address] Glucose [Mass/Vol] 139 mg/dL High 65-99 [facility] Comment on above: Performed By: #### C BCA, PINR, 18079-5, BMP #### [facility] ([id number]) [address] [address] [place] [address] Potassium [Moles/Vol] 4.3 mmol/L Normal 3.5-5.0 [facility] Comment on above: Performed By: #### C SADAF WILLETT, 59427-2, BMP #### [facility] ([id number]) [address] [place] [address] Sodium [Moles/Vol] 136 mmol/L Normal 134-146 [facility] Comment on above: Performed By: #### C SADAF WILLETT, 75687-2, BMP #### [facility] ([id number]) [address] [place] [address] Urea nitrogen [Mass/Vol] 6 mg/dL Normal 5-23 [facility] Comment on above: Performed By: #### C SADAF WILLETT, 63770-7, BMP #### [facility] ([id number]) [address] [place] [address] CBC AND AUTO DIFFon 01-25-20 24 ABSOLUTE BASOPHIL 0.0 X10E9/L Normal 0.0-0.2 [facility] Comment on above: Performed By: #### PARDEEP Langford BCAR, 59759-6, BMP #### [facility] ([id number]) [address], [address] [place] [address] ABSOLUTE NEUTROPHIL 2.9 X10E9/L Normal 1.5-6.6 [facility] Comment on above: Performed By: #### C BRENNON PINR, 48653-2, BMP #### [facility] ([id number]) [address], [address] [place] [address] Basophils/100 WBC (Bld) 0.1 % Normal [facility] Comment on above: Performed By: #### C PARDEEP WILLETTR, 53792-3, BMP #### [facility] ([id number]) [address], [address] [place] [address] Eosinophils (Bld) [#/Vol] 0.0 10*3/uL Normal 0.0-0.4 [facility] Comment on above: Performed By: #### C SADAF WILLETT, 52187-2, BMP #### [facility] ([id number]) [address], [address] [place] [address] Eosinophils/100 WBC (Bld) 0.0 % Normal [facility] Comment on above: Performed By: #### C BRENNON PINSlim, 61439-3, BMP #### [facility] ([id number]) [address], [facility] [address] [place] [address] Erythrocyte distribution width (RBC) [Ratio] 11.8 % Normal 11.5-15.0 [facility] Comment on above: Performed By: #### SADAF Langford BCA, 31184-5, BMP #### [facility] ([id number]) [address], [facility] [address] [place] [address] Hematocrit (Bld) [Volume fraction] 35.5 % Normal 35-47 [facility] Comment on above: Performed By: #### Anastasiya WILLETT PINR, 68975-3, BMP #### [facility] ([id number]) [address], [facility] [address] [place] [address] Hemoglobin (Bld) [Mass/Vol] 12.3 g/dL Normal 11.7-15.5 [facility] Comment on above: Performed By: #### C BRENNON, PINR, 49754-8, BMP #### [facility] ([id number]) [address], [facility] [address] [place] [address] Lymphocytes (Bld) [#/Vol] 0.4 10*3/uL Low 1.0-3.5 [facility] Comment on above: Performed By: #### Anastasiya WILLETT, PINR, 96717-5, BMP #### [facility] ([id number]) [address] [place] [address] Lymphocytes/100 WBC (Bld) 13.1 % Normal [facility] Comment on above: Performed By: #### C BRENNON, PINR, 49199-1, BMP #### [facility] ([id number]) [address], [facility] [address] [place] [address] MCH (RBC) [Entitic mass] 32.3 pg Normal 27-34 [facility] Comment on above: Performed By: #### C BRENNON, PINR, 65561-6, BMP #### [facility] ([id number]) [address], [facility] [address] [place] [address] MCHC (RBC) [Mass/Vol] 34.6 g/dL Normal 32-36 [facility] Comment on above: Performed By: #### Anastasiya WILLETT, PINR, 03821-9, BMP #### [facility] ([id number]) [address], [address] [address] MCV (RBC) [Entitic vol] 94 fL Normal 80-100 [facility] Comment on above: Performed By: #### Anastasiya WILLETT, PINR, 83017-3, BMP #### [facility] ([id number]) [address], [facility] [address] [place] [address] Monocytes (Bld) [#/Vol] 0.1 10*3/uL Normal 0-0.9 [facility] Comment on above: Performed By: #### C BRENNON, PINR, 62242-5, BMP #### [facility] ([id number]) [address], [facility] [address] [place] [address] Monocytes/100 WBC (Bld) 2.4 % Normal [facility] Comment on above: Performed By: #### Anastasiya BCA, PINR, 72719-9, BMP #### [facility] ([id number]) [address], [facility] [address] [place] [address] Neutrophils/100 WBC (Bld) 84.4 % Normal [facility] Comment on above: Performed By: #### C SADAF WILLETT, 84631-1, BMP #### [facility] ([id number]) [address], [address] [place] [address] Platelet mean volume (Bld) [Entitic vol] 9.1 fL Normal 7-12 [facility] Comment on above: Performed By: #### C SADAF WILLETT, 01117-7, BMP #### [facility] ([id number]) [address], [address] [address] Platelets (Bld) [#/Vol] 142 10*3/uL Low 150-450 [facility] Comment on above: Performed By: #### C SADAF WILLETT, 02262-2, BMP #### [facility] ([id number]) [address], [address] [place] [address] RBC COUNT 3.79 X10E12/L Low 3.80-5.20 [facility] Comment on above: Performed By: #### C SADAF WILLETT, 53168-2, BMP #### [facility] ([id number]) [address], [address] [place] [address] WBC (Bld) [#/Vol] 3.4 10*3/uL Low 4.0-11.0 [facility] Comment on above: Performed By: #### C SADAF WILLETT, 49847-6, BMP #### [facility] ([id number]) [address], [address] [place] [address] Heparin unfractionated Chrom ogenic method Qn (PPP)on 01-25-2024 ANTI XA UFH 0.68 IU/mL Normal 0.30-0.70 [facility] Comment on above: Result Comment: Opti mal time for testing is 6 hrs post dosage This test is specific for monitoring patients on UFH, and is not recommended for use with other Anti-Xa medications. Performed By: #### C BCA, PINR, 12294-7, BMP #### [facility] ([id number]) [address] [place] [address] ANTI CARDIOLIPIN AB IGG IGA IGMon 01-24-2024 MELBA IgA <2.0 Normal 0-19.9 [facility] Comment on above: Performed By: #### A Doreen HEATON #### [facility] ([id number]) [address] [place] [address] MELBA IgG <1.6 Normal 0-19.9 [facility] Comment on above: Performed By: #### Doreen SHUKLA #### [facility] ([id number]) [address], [address] [place] [address] MELBA IgM <1.5 Normal 0-19.9 [facility] Comment on above: Performed By: #### Doreen SHUKLA #### [facility] ([id number]) [address], [address] [place] [address] BASIC METABOLIC PANLon 01-23 Anion gap [Moles/Vol] 8 mmol/L Normal 5-15 [facility] Comment on above: Performed By: #### 3 274-8, CBCA, BMP #### [facility] ([id number]) [address] [place] [address] Calcium [Mass/Vol] 8.0 mg/dL Low 8.5-10.5 [facility] Comment on above: Performed By: #### 3 274-8, CBCA, BMP #### [facility] ([id number]) [address], [address] [place] [address] Chloride [Moles/Vol] 106 mmol/L Normal 98-109 [facility] Comment on above: Performed By: #### 3 274-8, CBCA, BMP #### [facility] ([id number]) [address], [address] [place] [address] CO2 [Moles/Vol] 22 mmol/L Normal 22-32 [facility] Comment on above: Performed By: #### 3 274-8, CBCA, BMP #### [facility] ([id number]) [address], [facility] [address] [place] [address] Creatinine [Mass/Vol] 0.53 mg/dL Normal 0.40-1.00 [facility] Comment on above: Result Comment: METH OD TRACEABLE TO IDMS STANDARD Performed By: #### 3 274-8, CBCA, BMP #### [facility] ([id number]) [address], [facility] [address] [place] [address] eGFR (CKD-EPI) NON-RACE DEPENDENT >90 Normal >59 [facility] Comment on above: Result Comment: Reported eGFR is based on the CKD-EPI 2020 equation that does not use a race coefficient. Performed By: #### 3 274-8, CBCA, BMP #### [facility] ([id number]) [address] [place] [address] Glucose [Mass/Vol] 76 mg/dL Normal 65-99 [facility] Comment on above: Performed By: #### 3 274-8, CBCA, BMP #### [facility] ([id number]) [address] [place] [address] Potassium [Moles/Vol] 3.8 mmol/L Normal 3.5-5.0 [facility] Comment on above: Performed By: #### 3 274-8, CBCA, BMP #### [facility] ([id number]) [address] [place] [address] Sodium [Moles/Vol] 136 mmol/L Normal 134-146 [facility] Comment on above: Performed By: #### 3 274-8, CBCA, BMP #### [facility] ([id number]) [address] [place] [address] Urea nitrogen [Mass/Vol] 10 mg/dL Normal 5-23 [facility] Comment on above: Performed By: #### 3 274-8, CBCA, BMP #### [facility] ([id number]) [address], [address] [place] [address] BETA-2 GP1 AB PANELon 2023 BETA-2 GP1 IgA <2.0 Normal 0.0-19.9 [facility] Comment on above: Performed By: #### C BCA, PINR, 62564-2, BMP #### [facility] ([id number]) [address] [place] [address] BETA-2 GP1 IgG <1.4 Normal 0.0-19.9 [facility] Comment on above: Performed By: #### C BCA, PINR, 40899-3, BMP #### [facility] ([id number]) [address] [place] [address] BETA-2 GP1 IgM <1.5 Normal 0.0-19.9 [facility] Comment on above: Performed By: #### C BCA, PINR, 41693-2, BMP #### [facility] ([id number]) [address] [place] [address] CBC AND AUTO DIFFon 01-24-20 24 ABSOLUTE BASOPHIL 0.0 X10E9/L Normal 0.0-0.2 [facility] Comment on above: Performed By: #### 3 274-8, CBCA, BMP #### [facility] ([id number]) [address], [address] [place] [address] ABSOLUTE NEUTROPHIL 3.7 X10E9/L Normal 1.5-6.6 [facility] Comment on above: Performed By: #### 3 274-8, CBCA, BMP #### [facility] ([id number]) [address], [address] [place] [address] Basophils/100 WBC (Bld) 0.4 % Normal [facility] Comment on above: Performed By: #### 3 274-8, CBCA, BMP #### [facility] ([id number]) [address] [place] [address] Eosinophils (Bld) [#/Vol] 0.2 10*3/uL Normal 0.0-0.4 [facility] Comment on above: Performed By: #### 3 274-8, CBCA, BMP #### [facility] ([id number]) [address], [facility] [address] [place] [address] Eosinophils/100 WBC (Bld) 2.9 % Normal [facility] Comment on above: Performed By: #### 3 274-8, CBCA, BMP #### [facility] ([id number]) [address] [place] [address] Erythrocyte distribution width (RBC) [Ratio] 12.3 % Normal 11.5-15.0 [facility] Comment on above: Performed By: #### 3 274-8, CBCA, BMP #### [facility] ([id number]) [address] [address] [place] [address] Hematocrit (Bld) [Volume fraction] 36.4 % Normal 35-47 [facility] Comment on above: Performed By: #### 3 274-8, CBCA, BMP #### [facility] ([id number]) [address] [address] [place] [address] Hemoglobin (Bld) [Mass/Vol] 12.4 g/dL Normal 11.7-15.5 [facility] Comment on above: Performed By: #### 3 274-8, CBCA, BMP #### [facility] ([id number]) [address] [place] [address] Lymphocytes (Bld) [#/Vol] 1.9 10*3/uL Normal 1.0-3.5 [facility] Comment on above: Performed By: #### 3 274-8, CBCA, BMP #### [facility] ([id number]) [address], [facility] [address] [place] [address] Lymphocytes/100 WBC (Bld) 29.7 % Normal [facility] Comment on above: Performed By: #### 3 274-8, CBCA, BMP #### [facility] ([id number]) [address], [facility] [address] [place] [address] MCH (RBC) [Entitic mass] 32.5 pg Normal 27-34 [facility] Comment on above: Performed By: #### 3 274-8, CBCA, BMP #### [facility] ([id number]) [address], [facility] [address] [place] [address] MCHC (RBC) [Mass/Vol] 34.2 g/dL Normal 32-36 [facility] Comment on above: Performed By: #### 3 274-8, CBCA, BMP #### [facility] ([id number]) [address], [facility] [address] [place] [address] MCV (RBC) [Entitic vol] 95 fL Normal 80-100 [facility] Comment on above: Performed By: #### 3 274-8, CBCA, BMP #### [facility] ([id number]) [address], [facility] [address] [place] [address] Monocytes (Bld) [#/Vol] 0.5 10*3/uL Normal 0-0.9 [facility] Comment on above: Performed By: #### 3 274-8, CBCA, BMP #### [facility] ([id number]) [address] [place] [address] Monocytes/100 WBC (Bld) 8.2 % Normal [facility] Comment on above: Performed By: #### 3 274-8, CBCA, BMP #### [facility] ([id number]) [address], [address] [address] Neutrophils/100 WBC (Bld) 58.8 % Normal [facility] Comment on above: Performed By: #### 3 274-8, CBCA, BMP #### [facility] ([id number]) [address], [address] [address] Platelet mean volume (Bld) [Entitic vol] 8.7 fL Normal 7-12 [facility] Comment on above: Performed By: #### 3 274-8, CBCA, BMP #### [facility] ([id number]) [address], [address] [address] Platelets (Bld) [#/Vol] 128 10*3/uL Low 150-450 [facility] Comment on above: Performed By: #### 3 274-8, CBCA, BMP #### [facility] ([id number]) [address], [address] [address] RBC COUNT 3.83 X10E12/L Normal 3.80-5.20 [facility] Comment on above: Performed By: #### 3 274-8, CBCA, BMP #### [facility] ([id number]) [address], [address] [address] WBC (Bld) [#/Vol] 6.4 10*3/uL Normal 4.0-11.0 [facility] Comment on above: Performed By: #### 3 274-8, CBCA, BMP #### [facility] ([id number]) [address], [address] [address] Heparin unfractionated Chrom ogenic method Qn (PPP)on 01-24-2024 ANTI XA UFH 0.47 IU/mL Normal 0.30-0.70 [facility] Comment on above: Result Comment: Opti mal time for testing is 6 hrs post dosage This test is specific for monitoring patients on UFH, and is not recommended for use with other Anti-Xa medications. Performed By: #### 3 274-8, CBCA, BMP #### [facility] ([id number]) [address] [place] [address] dRVVT/dRVVT.excess phospholi pid Coag (PPP) [Ratio]on 01-24-2024 DILUTE VERONIKA'S VIPER VENOM Negative Normal [facility] Comment on above: Performed By: #### C BCA, PINR, 76126-9, BMP #### [facility] ([id number]) [address] [place] [address] BASIC METABOLIC PANLon 01-22 Anion gap [Moles/Vol] 11 mmol/L Normal 5-15 [facility] Comment on above: Performed By: #### C BCA, PINR, 31310-4, BMP #### [facility] ([id number]) [address] [place] [address] Calcium [Mass/Vol] 8.3 mg/dL Low 8.5-10.5 [facility] Comment on above: Performed By: #### C BCA, PINR, 70580-5, BMP #### [facility] ([id number]) [address] [place] [address] Chloride [Moles/Vol] 106 mmol/L Normal 98-109 [facility] Comment on above: Performed By: #### C BCA, PINR, 70427-6, BMP #### [facility] ([id number]) [address] [place] [address] CO2 [Moles/Vol] 21 mmol/L Low 22-32 [facility] Comment on above: Performed By: #### C BCA, PINR, 83026-7, BMP #### [facility] ([id number]) [address] [place] [address] Creatinine [Mass/Vol] 0.65 mg/dL Normal 0.40-1.00 [facility] Comment on above: Result Comment: METH OD TRACEABLE TO IDMS STANDARD Performed By: #### C BCA, PINR, 92972-6, BMP #### [facility] ([id number]) [address] [place] [address] eGFR (CKD-EPI) NON-RACE DEPENDENT >90 Normal >59 [facility] Comment on above: Result Comment: Reported eGFR is based on the CKD-EPI 2020 equation that does not use a race coefficient. Performed By: #### C BCA, PINR, 14363-7, BMP #### [facility] ([id number]) [address] [place] [address] Glucose [Mass/Vol] 78 mg/dL Normal 65-99 [facility] Comment on above: Performed By: #### C BCA, PINR, 79164-9, BMP #### [facility] ([id number]) [address] [place] [address] Potassium [Moles/Vol] 3.9 mmol/L Normal 3.5-5.0 [facility] Comment on above: Performed By: #### C BCA, PINR, 31535-1, BMP #### [facility] ([id number]) [address] [place] [address] Sodium [Moles/Vol] 138 mmol/L Normal 134-146 [facility] Comment on above: Performed By: #### C BCA, PINR, 21731-0, BMP #### [facility] ([id number]) [address] [place] [address] Urea nitrogen [Mass/Vol] 11 mg/dL Normal 5-23 [facility] Comment on above: Performed By: #### C BCA, PINR, 56127-0, BMP #### [facility] ([id number]) [address] [place] [address] CBC AND AUTO DIFFon 01-23-20 24 ABSOLUTE BASOPHIL 0.0 X10E9/L Normal 0.0-0.2 [facility] Comment on above: Performed By: #### C BRENNON PINR, 95588-7, BMP #### [facility] ([id number]) [address] [place] [address] ABSOLUTE NEUTROPHIL 6.6 X10E9/L Normal 1.5-6.6 [facility] Comment on above: Performed By: #### Anastasiya WILLETT PINR, 55524-1, BMP #### [facility] ([id number]) [address] [place] [address] Basophils/100 WBC (Bld) 0.3 % Normal [facility] Comment on above: Performed By: #### Anastasiya WILLETT PINR, 71106-1, BMP #### [facility] ([id number]) [address] [place] [address] Eosinophils (Bld) [#/Vol] 0.1 10*3/uL Normal 0.0-0.4 [facility] Comment on above: Performed By: #### Anastasiya WILLETT PINR, 89706-9, BMP #### [facility] ([id number]) [address] [place] [address] Eosinophils/100 WBC (Bld) 0.8 % Normal [facility] Comment on above: Performed By: #### C BRENNON PINR, 53128-6, BMP #### [facility] ([id number]) [address] [place] [address] Erythrocyte distribution width (RBC) [Ratio] 12.4 % Normal 11.5-15.0 [facility] Comment on above: Performed By: #### C BRENNON PINR, 46601-9, BMP #### [facility] ([id number]) [address], [facility] [address] [place] [address] Hematocrit (Bld) [Volume fraction] 39.4 % Normal 35-47 [facility] Comment on above: Performed By: #### C BRENNON PINR, 96630-2, BMP #### [facility] ([id number]) [address], [facility] [address] [place] [address] Hemoglobin (Bld) [Mass/Vol] 13.8 g/dL Normal 11.7-15.5 [facility] Comment on above: Performed By: #### C BRENNON PINR, 46125-0, BMP #### [facility] ([id number]) [address] [facility] [address] [place] [address] Lymphocytes (Bld) [#/Vol] 1.9 10*3/uL Normal 1.0-3.5 [facility] Comment on above: Performed By: #### C BRENNON PINR, 06246-3, BMP #### [facility] ([id number]) [address], [facility] [address] [place] [address] Lymphocytes/100 WBC (Bld) 20.6 % Normal [facility] Comment on above: Performed By: #### Anastasiya WILLETT PINR, 33417-0, BMP #### [facility] ([id number]) [address] [place] [address] MCH (RBC) [Entitic mass] 32.7 pg Normal 27-34 [facility] Comment on above: Performed By: #### C BRENNON PINR, 67517-9, BMP #### [facility] ([id number]) [address] [place] [address] MCHC (RBC) [Mass/Vol] 34.9 g/dL Normal 32-36 [facility] Comment on above: Performed By: #### C BRENNON, PINR, 88890-6, BMP #### [facility] ([id number]) [address] [place] [address] MCV (RBC) [Entitic vol] 94 fL Normal 80-100 [facility] Comment on above: Performed By: #### C BRENNON, PINR, 21995-2, BMP #### [facility] ([id number]) [address] [place] [address] Monocytes (Bld) [#/Vol] 0.6 10*3/uL Normal 0-0.9 [facility] Comment on above: Performed By: #### C BRENNON, PINR, 04259-0, BMP #### [facility] ([id number]) [address] [facility] [address] [place] [address] Monocytes/100 WBC (Bld) 6.0 % Normal [facility] Comment on above: Performed By: #### C BRENNON, PINR, 41444-8, BMP #### [facility] ([id number]) [address] [facility] [address] [place] [address] Neutrophils/100 WBC (Bld) 72.3 % Normal [facility] Comment on above: Performed By: #### C BRENNON, PINR, 90530-8, BMP #### [facility] ([id number]) [address] [place] [address] Platelet mean volume (Bld) [Entitic vol] 8.4 fL Normal 7-12 [facility] Comment on above: Performed By: #### C BRENNON, PINR, 64033-3, BMP #### [facility] ([id number]) [address] [place] [address] Platelets (Bld) [#/Vol] 156 10*3/uL Normal 150-450 [facility] Comment on above: Performed By: #### C BCA, PINR, 94398-6, BMP #### [facility] ([id number]) [address] [place] [address] RBC COUNT 4.21 X10E12/L Normal 3.80-5.20 [facility] Comment on above: Performed By: #### C BCA, PINR, 14266-7, BMP #### [facility] ([id number]) [address] [place] [address] WBC (Bld) [#/Vol] 9.1 10*3/uL Normal 4.0-11.0 [facility] Comment on above: Performed By: #### C BRENNON PINR, 05000-4, BMP #### [facility] ([id number]) [address], [address] [place] [address] CT CTV ABD AND PELVISon 01-13 CT [...] Hill MD on 01/23/2024 4:56 PM Normal [facility] Heparin unfractionated Chrom ogenic method Qn (PPP)on 01-23-2024 ANTI XA UFH 0.44 IU/mL Normal 0.30-0.70 [facility] Comment on above: Result Comment: Opti mal time for testing is 6 hrs post dosage This test is specific for monitoring patients on UFH, and is not recommended for use with other Anti-Xa medications. Performed By: #### 3 274-8 #### [facility] ([id number]) [address], [address] [place] [address] PROTIME AND INRon 01-23-2024 INR Coag (PPP) [Relative time] 1.1 {INR} Normal 0.8-1.1 [facility] Comment on above: Performed By: #### C PARDEEP WILLETTR, 28515-8, BMP #### [facility] ([id number]) [address], [address] [place] [address] PT Coag (PPP) [Time] 12.3 s Normal 9.8-13.2 [facility] Comment on above: Performed By: #### C BRENNON PINR, 21229-6, BMP #### [facility] ([id number]) [address] [place] [address] aPTT Coag (PPP) [Time]on aPTT Coag (Bld) [Time] 51 s High 26-37 [facility] Comment on above: Performed By: #### C BRENNON PINR, 19139-0, BMP #### [facility] ([id number]) [address], [address] [place] [address] AMYLASEon 04-03-2023 Amylase [Catalytic activity/Vol] 62 U/L Normal 25-115 [facility] Comment on above: Performed By: #### L IPA, BHARTI ####[facility] [address] [place], [place] [address]ZuDr. Reece Garg CBC AUTO DIFFon 04-03-2023 BASO # 0.0 103/ul Normal 0.0-0.1 [facility] Comment on above: Performed By: #### C BC #### [facility] [address] [address] [address] Reece Garg Basophils/100 WBC (Bld) 0.3 % Normal 0.2-2.0 [facility] Comment on above: Performed By: #### C BC #### [facility] [address] [address] [address] Reece Garg EO # 0.1 103/ul Normal 0.0-0.7 [facility] Comment on above: Performed By: #### C BC #### [facility] [address] [address] [address] Reece Garg Eosinophils/100 WBC (Bld) 0.6 % Critically low 0.9-7.0 [facility] Comment on above: Performed By: #### C BC #### [facility] [address] [address] [address] Reece Garg Erythrocyte distribution width (RBC) [Ratio] 11.9 % Normal 11.0-15.0 [facility] Comment on above: Performed By: #### C BC #### [facility] [address] [address] [address] Reece Garg Hematocrit (Bld) [Volume fraction] 37.7 % Normal 36.0-48.0 [facility] Comment on above: Performed By: #### C BC #### [facility] [address] [address] [address] Reece Garg Hemoglobin (Bld) [Mass/Vol] 12.9 g/dL Normal 12.0-16.0 [facility] Comment on above: Performed By: #### C BC #### [facility] [address] [address] [address] Reece Garg IG # 0.05 10e3/ul Critically high 0.00-0.03 [facility] Comment on above: Performed By: #### C BC #### [facility] [address] [place] [address] Dr. Reece Garg IG % 0.4 % Normal 0.0-0.5 [facility] Comment on above: Performed By: #### C BC #### [facility] [address] [place] [address] Dr. Reece Garg LYMPH # 2.3 103/ul Normal 1.2-3.8 [facility] Comment on above: Performed By: #### C BC #### [facility] [address] [place] [address] Dr. Reece Garg Lymphocytes/100 WBC (Bld) 20.8 % Normal 20.5-60.0 [facility] Comment on above: Performed By: #### C BC #### [facility] [address] [place] [address] Dr. Reece Garg MANUAL DIFF REQ NO Normal [facility] Comment on above: Performed By: #### C BC #### [facility] [address] [place] [address] Dr. Reece Garg MCH (RBC) [Entitic mass] 32.3 pg Normal 26.7-34.0 [facility] Comment on above: Performed By: #### C BC #### [facility] [address] [place] [address] Dr. Reece Garg MCHC (RBC) [Mass/Vol] 34.2 g/dL Normal 29.9-35.2 [facility] Comment on above: Performed By: #### C BC #### [facility] [address] [place] [address] Dr. Reece Garg MCV (RBC) [Entitic vol] 94.3 fL Normal 81.0-99.0 [facility] Comment on above: Performed By: #### C BC #### [facility] [address] [place] [address] Dr. Reece Garg MONO # 0.6 103/ul Normal 0.3-0.8 [facility] Comment on above: Performed By: #### C BC #### [facility] [address] [address] [address] Reece Garg Monocytes/100 WBC (Bld) 5.3 % Normal 1.7-12.0 [facility] Comment on above: Performed By: #### C BC #### [facility] [address] [address] [address] Reece Garg NEUT # 8.1 103/ul Critically high 1.4-6.5 [facility] Comment on above: Performed By: #### C BC #### [facility] [address] [address] [address] Reece Garg Neutrophils/100 WBC (Bld) 72.6 % Normal 43.0-75.0 [facility] Comment on above: Performed By: #### C BC #### [facility] [address] [place] [address] Dr. Reece Garg Platelet mean volume (Bld) [Entitic vol] 10.2 fL Normal 9.5-13.5 [facility] Comment on above: Performed By: #### C BC #### [facility] [address] [address] [address] Reece Garg PLT 163 103/ul Normal 150-450 [facility] Comment on above: Performed By: #### C BC #### [facility] [address] [place] [address] Dr. Reece Garg RBC 4.00 106/ul Critically low 4.20-5.40 [facility] Comment on above: Performed By: #### C BC #### [facility] [address] [address] [address] Reece Garg WBC 11.1 103/ul Critically high 4.0-11.0 [facility] Comment on above: Performed By: #### C BC #### [facility] [address] [place] [address] Dr. Reece Garg BASO # 0.0 103/ul Normal 0.0-0.1 [facility] Comment on above: Performed By: #### C BC #### [facility] [address] [address] [address] Reece Garg Basophils/100 WBC (Bld) 0.3 % Normal 0.2-2.0 [facility] Comment on above: Performed By: #### C BC #### [facility] [address] [address] [address] Reece Garg EO # 0.1 103/ul Normal 0.0-0.7 [facility] Comment on above: Performed By: #### C BC #### [facility] [address] [place] [address] Dr. Reece Garg Eosinophils/100 WBC (Bld) 0.7 % Critically low 0.9-7.0 [facility] Comment on above: Performed By: #### C BC #### [facility] [address] [place] [address] Dr. Reece Garg Erythrocyte distribution width (RBC) [Ratio] 12.0 % Normal 11.0-15.0 [facility] Comment on above: Performed By: #### C BC #### [facility] [address] [place] [address] Dr. Reece Garg Hematocrit (Bld) [Volume fraction] 41.4 % Normal 36.0-48.0 [facility] Comment on above: Performed By: #### C BC #### [facility] [address] [place] [address] Dr. Recee Garg Hemoglobin (Bld) [Mass/Vol] 14.3 g/dL Normal 12.0-16.0 [facility] Comment on above: Performed By: #### C BC #### [facility] [address] [place] [address] Dr. Reece Garg IG # 0.05 10e3/ul Critically high 0.00-0.03 [facility] Comment on above: Performed By: #### C BC #### [facility] [address] [place] [address] Dr. Reece Garg IG % 0.3 % Normal 0.0-0.5 [facility] Comment on above: Performed By: #### C BC #### [facility] [address] [place] [address] Dr. Reece Garg LYMPH # 1.6 103/ul Normal 1.2-3.8 [facility] Comment on above: Performed By: #### C BC #### [facility] [address] [place] [address] Dr. Reece Garg Lymphocytes/100 WBC (Bld) 10.6 % Critically low 20.5-60.0 [facility] Comment on above: Performed By: #### C BC #### [facility] [address] [place] [address] Dr. Reece Garg MANUAL DIFF REQ NO Normal [facility] Comment on above: Performed By: #### C BC #### [facility] [address] [place] [address] Dr. Reece Garg MCH (RBC) [Entitic mass] 32.1 pg Normal 26.7-34.0 [facility] Comment on above: Performed By: #### C BC #### [facility] [address] [place] [address] Dr. Reece Garg MCHC (RBC) [Mass/Vol] 34.5 g/dL Normal 29.9-35.2 [facility] Comment on above: Performed By: #### C BC #### [facility] [address] [place] [address] Dr. Reece Garg MCV (RBC) [Entitic vol] 93.0 fL Normal 81.0-99.0 [facility] Comment on above: Performed By: #### C BC #### [facility] [address] [place] [address] Dr. Reece Garg MONO # 0.7 103/ul Normal 0.3-0.8 [facility] Comment on above: Performed By: #### C BC #### [facility] [address] [place] [address] Dr. Reece Garg Monocytes/100 WBC (Bld) 4.7 % Normal 1.7-12.0 [facility] Comment on above: Performed By: #### C BC #### [facility] [address] [place] [address] Dr. Reece Garg NEUT # 12.9 103/ul Critically high 1.4-6.5 [facility] Comment on above: Performed By: #### C BC #### [facility] [address] [place] [address] Dr. Reece Garg Neutrophils/100 WBC (Bld) 83.4 % Critically high 43.0-75.0 [facility] Comment on above: Performed By: #### C BC #### [facility] [address] [place] [address] Dr. Reece Garg Platelet mean volume (Bld) [Entitic vol] 10.4 fL Normal 9.5-13.5 [facility] Comment on above: Performed By: #### C BC #### [facility] [address] [place] [address] Dr. Reece Garg PLT 194 103/ul Normal 150-450 [facility] Comment on above: Performed By: #### C BC #### [facility] [address] [place] [address] Dr. Reece Garg RBC 4.45 106/ul Normal 4.20-5.40 [facility] Comment on above: Performed By: #### C BC #### [facility] [address] [place] [address] Dr. Reece Garg WBC 15.4 103/ul Critically high 4.0-11.0 [facility] Comment on above: Performed By: #### C BC #### [facility] [address] [place] [address] ABD/PELV W CONon [...] LAVON ELIZALDE Date: 2023-04-03 01:36 Normal [facility] ER URINE PROFILEon 3 Bilirubin Ql (U) Negative Normal NEGATIVE [facility] Comment on above: Performed By: #### P REGU, ERUR #### [facility] [address] [place] [address] Dr. Reece Garg Clarity (U) CLEAR Normal CLEAR [facility] Comment on above: Performed By: #### P REGU, ERUR #### [facility] [address] [place] [address] Dr. Reece Garg Color (U) LT. YELLOW Normal YELLOW [facility] Comment on above: Performed By: #### P REGU, ERUR #### [facility] [address] [place] [address] Dr. Reece Garg ERUAHD A micrscopic examination will be performed if indicated. Normal [facility] Comment on above: Performed By: #### P REGU, ERUR #### [facility] [address] [address] [address] Reece Garg Glucose Ql (U) Negative Normal NEGATIVE [facility] Comment on above: Performed By: #### P REGU, ERUR #### [facility] [address] [address] [address] Reece Garg Hemoglobin Ql (U) Negative Normal NEGATIVE [facility] Comment on above: Performed By: #### P REGU, ERUR #### [facility] [address] [place] [address] Dr. Reece Garg Ketones Ql (U) 15 mg/dl Abnormal NEGATIVE [facility] Comment on above: Performed By: #### P REGU, ERUR #### [facility] [address] [place] [address] Dr. Reece Garg LEUKOCYTES Negative Normal NEGATIVE [facility] Comment on above: Performed By: #### P REGU, ERUR #### [facility] [address] [place] [address] Dr. Reece Garg Nitrite Ql (U) Negative Normal NEGATIVE [facility] Comment on above: Performed By: #### P REGU, ERUR #### [facility] [address] [place] [address] Dr. Reece Garg pH (U) 5.5 [pH] Normal 5-9 [facility] Comment on above: Performed By: #### P REGU, ERUR #### [facility] [address] [place] [address] Dr. Reece Garg SPEC GRAVITY <=1.005 Abnormal 1.005-<=1.025 [facility] Comment on above: Performed By: #### P REGU, ERUR #### [facility] [address] [place] [address] Dr. Reece Garg UA PROTEIN Negative Normal NEGATIVE/ TRACE [facility] Comment on above: Performed By: #### P REGU, ERUR #### [facility] [address] [place] [address] Dr. Reece Garg UR MICRO IND NOT INDICATED Normal [facility] Comment on above: Performed By: #### P REGU, ERUR #### [facility] [address] [address] [address] Reece Garg Urobilinogen Qn (U) 0.2 {Dariel'U}/dL Normal 0.2 - 1. 0 [facility] Comment on above: Performed By: #### P REGU, ERUR #### [facility] [address] [address] [address] Reece Garg LIPASEon 04-03-2023 Lipase [Catalytic activity/Vol] 62.0 U/L Critically low 73.0-393.0 [facility] Comment on above: Performed By: #### L IPA, BHARTI ####[facility] [address] [place], [place] [address]Dr. Reece Garg MONOon 04-03-2023 Monocytes (Bld) [#/Vol] Negative Normal NEGATIVE [facility] Comment on above: Performed By: #### M JOSE DANIEL #### [facility] [address] [place] [address] Dr. Reece Garg URon 04-03-2023 , QUAL Negative Normal NEGATIVE [facility] Comment on above: Performed By: #### P MOISÉSU, ERUR #### [facility] [address] [place] [address] Dr. Reece Garg PROF 14(COMP METB)on 023 Albumin [Mass/Vol] 3.3 g/dL Critically low 3.4-5.0 [facility] Comment on above: Performed By: #### C MP #### [facility] [address] [place] [address] Dr. Reece Garg Albumin/Globulin [Mass ratio] 1.0 {ratio} Normal [facility] Comment on above: Performed By: #### C MP #### [facility] [address] [place] [address] Dr. Reece Garg ALP [Catalytic activity/Vol] 38 U/L Critically low 46-116 [facility] Comment on above: Performed By: #### C MP #### [facility] [address] [address] [address] Reece Garg ALT [Catalytic activity/Vol] 16 U/L Normal 14-59 [facility] Comment on above: Performed By: #### C MP #### [facility] [address] [place] [address] Dr. Reece Garg Anion gap [Moles/Vol] 10.7 mmol/L Normal [facility] Comment on above: Performed By: #### C MP #### [facility] [address] [address] [address] Reece Garg AST [Catalytic activity/Vol] 10 U/L Critically low 15-37 [facility] Comment on above: Performed By: #### C MP #### [facility] [address] [place] [address] Dr. Reece Garg Bilirubin [Mass/Vol] 1.0 mg/dL Normal 0.2-1.0 [facility] Comment on above: Performed By: #### C MP #### [facility] [address] [place] [address] Dr. Reece Garg Calcium [Mass/Vol] 8.2 mg/dL Critically low 8.5-10.1 [facility] Comment on above: Performed By: #### C MP #### [facility] [address] [place] [address] Dr. Reece Garg Chloride [Moles/Vol] 106 mmol/L Normal 98-107 [facility] Comment on above: Performed By: #### C MP #### [facility] [address] [place] [address] Dr. Reece Garg CO2 [Moles/Vol] 27.0 mmol/L Normal 21.0-32.0 [facility] Comment on above: Performed By: #### C MP #### [facility] [address] [place] [address] Dr. Reece Garg Creatinine [Mass/Vol] 0.77 mg/dL Normal 0.55-1.02 [facility] Comment on above: Performed By: #### C MP #### [facility] [address] [place] [address] Dr. Reece Garg EGFR-AF MACEDONIAN >60 Normal >=60 [facility] Comment on above: Performed By: #### C MP #### [facility] [address] [address] [address] Reece Garg EGFR-NON AF MACEDONIAN >60 Normal >=60 [facility] Comment on above: Performed By: #### C MP #### [facility] [address] [address] [address] Reece Garg Globulin (S) [Mass/Vol] 3.3 g/dL Normal [facility] Comment on above: Performed By: #### C MP #### [facility] [address] [address] [address] Reece Garg Glucose [Mass/Vol] 102 mg/dL Normal 74-106 [facility] Comment on above: Performed By: #### C MP #### [facility] [address] [address] [address] Reece Garg Potassium [Moles/Vol] 3.7 mmol/L Normal 3.5-5.1 [facility] Comment on above: Performed By: #### C MP #### [facility] [address] [address] [address] Reece Garg Protein [Mass/Vol] 6.6 g/dL Normal 6.4-8.2 [facility] Comment on above: Performed By: #### C MP #### [facility] [address] [address] [address] Reece Garg Sodium [Moles/Vol] 140 mmol/L Normal 136-145 [facility] Comment on above: Performed By: #### C MP #### [facility] [address] [address] [address] Reece Garg Urea nitrogen [Mass/Vol] 8.0 mg/dL Normal 7.0-18.0 [facility] Comment on above: Performed By: #### C MP #### [facility] [address] [address] [address] Reece Garg Urea nitrogen/Creatinine [Mass ratio] 10.4 mg/mg Normal [facility] Comment on above: Performed By: #### C MP #### [facility] [address] [address] [address] Reece Garg PROTIMEon 04-03-2023 INR Coag (PPP) [Relative time] 1.06 {INR} Normal [facility] Comment on above: Performed By: #### P TT, PT #### [facility] [address] [place] [address] Dr. Reece Garg INR GUIDELINES SEE BELOW Normal [facility] Comment on above: Result Comment: JJ RED INR: 2.0 - 3.0 CONDITIONS NOT LISTED BELOW 2.5 - 3.5 FOR PROSTHETIC HEART VALVE REPLACEMENT 2.5 - 3.5 RECURRENT THROMBOSIS Performed By: #### P TT, PT #### [facility] [address] [place] [address] Dr. Reece Garg PT Coag (PPP) [Time] 11.2 s Normal 9.0-11.6 [facility] Comment on above: Performed By: #### P TT, PT #### [facility] [address] [place] [address] Dr. Reece Garg PTTon 04-03-2023 aPTT Coag (Bld) [Time] 28.1 s Normal 22.3-36.2 [facility] Comment on above: Performed By: #### P TT, PT #### [facility] [address] [place] [address] Dr. Reece Garg PAP ACOG PANEL 2: 30 to 65on 07-28-2022 . . Normal [facility] Comment on above: Result Comment: Perf ormed at: WB Performed By: #### [id number] ####[facility] [address] [address]Dr. Reece Garg Age Gdln ACOG Testing 30-65 [facility] Comment on above: Performed By: #### [id number] ####[facility] [address] [address]Dr. Reece Garg DIAGNOSIS: Comment Normal [facility] Comment on above: Result Comment: NEGA TIVE FOR INTRAEPITHELIAL LESION OR MALIGNANCY. Performed at: WB Performed By: #### [id number] ####[facility] [address] [place], [place] [address]Dr. Reece Garg HPV Aptima Negative Normal Negative [facility] Comment on above: Result Comment: This nucleic acid amplification test detects fourteen high-risk HPV types (16,18,31,33,35,39,45,51,52,56,58,59,66,68) without differentiation. Performed at: =G Performed By: #### [id number] ####[facility] [address] [place], [place] [address]Dr. Reece Garg Methodology: Comment Normal [facility] Comment on above: Result Comment: This liquid based ThinPrep(R) pap test was screened with the use of an image guided system. Performed at: WB Performed By: #### [id number] ####[address] [address]Dr. Reece Garg Note: Comment Normal [facility] Comment on above: Result Comment: The Pap smear is a screening test designed to aid in the detection of premalignant and malignant conditions of the uterine cervix. It is not a diagnostic procedure and should not be used as the sole means of detecting cervical cancer. Both false-positive and false-negative reports do occur. . Performed at: WB Performed By: #### [id number] ####[facility] [address] [place], [place] [address]Dr. Reece Garg Performed by: Comment Normal [facility] Comment on above: Result Comment: Alexandra Cortez, Lion Tamer (ASCP) Performed at: WB Performed By: #### [id number] ####[facility] [address] [place], [place] [address]Dr. Reece Garg Specimen adequacy: Comment Normal [facility] Comment on above: Result Comment: Sati sfactory for evaluation. No endocervical component is identified. Performed at: WB Performed By: #### [id number] ####[facility] [address] [place], [place] [address]DrHardik Garg VAGINITIS/VAGINOSIS DNA PROB Erwin 07-24-2022 Micheal species Negative Normal Negative [facility] Comment on above: Performed By: #### V AGINT #### [facility] [address] [address] [address] Reece Garg Gardnerella vaginalis Positive Abnormal Negative [facility] Comment on above: Performed By: #### V AGINT #### [facility] [address] [address] [address] Reece Garg Trichomonas vaginalis Negative Normal Negative [facility] Comment on above: Performed By: #### V AGINT #### [facility] [address] [address] [address] Reece Garg Vital Signs Date Time Vital Sign Value Performing Clinician Facility 12-26-2024 10:07-0500 Blood Pressure Location SYDNEE KAUFFMAN [facility] 12-26-2024 10:07-0500 Diastolic blood pressure 90 mm[Hg] SYDNEEMARIELLE KAUFFMAN [facility] 12-26-2024 10:07-0500 Heart rate 70 /min SYDNEE KAUFFMAN [facility] 12-26-2024 10:07-0500 Systolic blood pressure 130 mm[Hg] SYDNEE KAUFFMAN [facility] 08-31-2024 10:09-0400 Body mass index (BMI) [Ratio] 24.11 kg/m2 Andre Hudson DO Work Phone: [facility] 08-31-2024 10:09-0400 Body weight 59.78 kg Andre Hudson DO Work Phone: [facility] 08-31-2024 10:09-0400 Diastolic blood pressure 70 mm[Hg] Andre Hudson DO Work Phone: [facility] 08-31-2024 10:09-0400 Systolic blood pressure 110 mm[Hg] Andre Hudson DO Work Phone: [facility] 08-08-2024 11:15-0400 Blood Pressure Location SYDNEE ANTONIO [facility] 08-08-2024 11:15-0400 Diastolic blood pressure 63 mm[Hg] SYDNEE ANTONIO [facility] 08-08-2024 11:15-0400 Heart rate 61 /min SYDNEE ANTONIO [facility] 08-08-2024 11:15-0400 Respiratory rate 19 /min SYDNEE ANTONIO [facility] 08-08-2024 11:15-0400 Systolic blood pressure 96 mm[Hg] SYDNEE ANTONIO [facility] 07-31-2024 09:53-0400 Body height 157.5 cm Andre Hudson DO Work Phone: [facility] 07-31-2024 09:53-0400 Body mass index (BMI) [Ratio] 23.96 kg/m2 Andre Hudson DO Work Phone: [facility] 07-31-2024 09:53-0400 Body weight 59.42 kg Andre Hudson DO Work Phone: [facility] 07-31-2024 09:53-0400 Diastolic blood pressure 68 mm[Hg] Andre Hudson DO Work Phone: [facility] 07-31-2024 09:53-0400 Systolic blood pressure 102 mm[Hg] Andre Hudson DO Work Phone: [facility] 07-10-2024 16:25-0400 Body mass index (BMI) [Ratio] 24.29 kg/m2 Bharti RIBEIRO Work Phone: [facility] 07-10-2024 16:25-0400 Body weight 60.24 kg Bharti RIBEIRO Work Phone: [facility] 05-25-2024 08:43-0400 Body height 157.5 cm Jani Bridges MD Work Phone: [facility] 05-25-2024 08:43-0400 Body mass index (BMI) [Ratio] 23.78 kg/m2 Jani Bridges MD Work Phone: [facility] 05-25-2024 08:43-0400 Body weight 58.97 kg Jani Bridges MD Work Phone: [facility] 05-25-2024 08:43-0400 Diastolic blood pressure 68 mm[Hg] Jani Bridges MD Work Phone: [facility] 05-25-2024 08:43-0400 Heart rate 66 /min Jani Bridges MD Work Phone: [facility] 05-25-2024 08:43-0400 SaO2% (BldA) [Mass fraction] 98 % Jani Bridges MD Work Phone: [facility] 05-25-2024 08:43-0400 Systolic blood pressure 97 mm[Hg] Jani Bridges MD Work Phone: [facility] Encounters Encounter Date Encounter Type Care Provider Facility Start: 04-04-2025 ambulatory Julien Flower ty:[facility] Start: 04-03-2025 End: 04-03-2025 Bamboo flowsheet Andre Hudson DO Work Phone: [facility] Start: 04-03-2025 End: 04-03-2025 Bamboo flowsheet Andre Hudson DO Work Phone: [facility] Start: 03-01-2025 End: 03-02-2025 Refill Jani Bridges MD Work Phone: [facility] Start: 02-19-2025 End: 02-19-2025 ambulatory Usman Alvarez MD Work Phone: [facility] Work Phone: Start: 02-19-2025 End: 02-19-2025 Discharged Recurring Usman Alvarez MD Work Phone: [facility] Start: 12-26-2024 End: 12-26-2024 ambulatory SYDNEE TOBARRY Facility: [facility] Start: 12-26-2024 End: 12-26-2024 Patient encounter procedure SYDNEE KAUFFMAN [facility] Start: 10-03-2024 End: 10-03-2024 ambulatory Julien HOYOS Facility:[facility] Start: 10-03-2024 End: 10-03-2024 Patient encounter procedure Julien HOYOS [facility] Start: 09-20-2024 End: 09-20-2024 Bamboo flowsheet Theresa Perez [facility] Work Phone: [facility] Start: 09-20-2024 End: 09-20-2024 Bamboo flowsheet Theresajessica Perez [facility] Work Phone: [facility] Start: 09-20-2024 End: 09-20-2024 ambulatory THERESA [...] 08-10-2024 End: 08-10-2024 Bamboo flowsheet Theresa Perez [facility] Work Phone: [facility] Start: 08-10-2024 End: 08-10-2024 Bamboo flowsheet Theresa Juan HughesPerez [facility] Work Phone: [facility] Start: 08-10-2024 End: 08-10-2024 [address] Juan HUGH[address]EREZ [facility] Healthcare Comment on above: IRVING (generalized anx iety disorder) ([facility]) Start: 08-08-2024 End: 08-08-2024 ambulatory SYDNEE Masha ANTONIO Facility:[facility] Start: 08-08-2024 End: 08-08-2024 Patient encounter procedure SYDNEE KAUFFMAN [facility] Start: 08-03-2024 ambulatory SYDNEE ANTONIO Facility :[facility] Start: 08-03-2024 End: 08-03-2024 ambulatory ANDRE HUDSON Not Available Start: 07-31-2024 End: 07-31-2024 Bamboo flowsheet Andre Hudson DO Work Phone: [facility] Start: 07-31-2024 End: 08-04-2024 Bamboo flowsheet Andre Hudson DO Work Phone: [facility] Start: 07-31-2024 End: 08-04-2024 Clinisync Result Encounter Andre Hudson DO Work Phone: [facility] External Department Unsolicited Start: 07-31-2024 End: 07-31-2024 Patient encounter procedure Andre Hudson DO Work Phone: [facility] Healthcare Start: 07-31-2024 End: 07-31-2024 Periodic preventive med est patient 18-39 yrs Andre Hudson DO Work Phone: [facility] Comment on above: Well woman exam with routine gynecological exam; Chronic bladder pain Start: 07-31-2024 End: 07-31-2024 ambulatory ANDRE TREVIÑO Not Available Start: 07-18-2024 End: 07-18-2024 Bamboo flowsheet Theresa Perez [facility] Work Phone: [facility] Start: 07-18-2024 End: 07-18-2024 Bamboo flowsheet Theresa Martinez Perez [facility] Work Phone: [facility] Start: 07-18-2024 End: 07-18-2024 ambulatory THERESA PEREZ [facility] Healthcare Comment on above: IRVING (generalized anx iety disorder) ([facility]) Start: 07-10-2024 End: 07-10-2024 Office outpatient visit 15 minutes Bharti RIBEIRO Work Phone: [facility] Comment on above: UTI symptoms; Vaginal discharge; STD exposure Start: 07-10-2024 End: 07-10-2024 ambulatory BHARTI FRIED Not Available Start: 07-10-2024 End: 07-12-2024 External Result Encounter Bharti RIBEIRO Work Phone: [facility] External Department Unsolicited Start: 07-10-2024 End: 07-12-2024 External Result Encounter Bharti RIBEIRO Work Phone: [facility] External Department Unsolicited Start: 06-29-2024 End: 06-29-2024 ambulatory THERSEA PEREZ [facility] Healthcare Comment on above: IRVING (generalized anx iety disorder) ([facility]) Start: 05-25-2024 End: 05-25-2024 Office outpatient visit 25 minutes Jani Bridges MD Work Phone: [facility] Comment on above: 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); Acute deep vein thrombosis (DVT) of iliac vein of left lower extremity ([facility]) Start: 05-25-2024 End: 05-25-2024 ambulatory JANI BRIDGES [facility] Start: 04-27-2024 End: 04-27-2024 Office outpatient visit 25 minutes Jani Bridges MD Work Phone: [facility] Comment on above: 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); 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 ([facility]) Start: 04-27-2024 ambulatory [facility] Start: 04-04-2024 End: 04-04-2024 ambulatory RAHULANANYA CHRIS Not Available Start: 04-03-2024 End: 04-11-2024 Orders Only Not In System Ref Prov [facility] Start: 02-16-2024 End: 02-16-2024 ambulatory THERESA Juan PEREZ Not Available Start: 02-10-2024 End: 02-10-2024 Office outpatient visit 15 minutes Jani Bridges MD Work Phone: [facility] Comment on above: Acute deep vein thro mbosis (DVT) of iliac vein of left lower extremity ([facility]) (Primary Dx); May-Thurner syndrome Start: 02-10-2024 ambulatory [facility] Start: 01-31-2024 End: 01-31-2024 ambulatory ANDRE TREVIÑO Not Available Start: 01-26-2024 End: 01-26-2024 Evaluation and management of inpatient PAUL YOUNGNIRAJGURWINDER [facility] Start: 01-24-2024 End: 01-26-2024 Evaluation and management of inpatient [facility] Start: 01-24-2024 End: 01-24-2024 ambulatory DL BUCK [facility] Start: 01-24-2024 ambulatory [facility] Start: 01-23-2024 End: 01-26-2024 Evaluation and management of inpatient STEPHEN STOKES [facility] Start: 01-23-2024 End: 01-25-2024 Evaluation and management of inpatient [facility] Start: 01-20-2024 End: 01-20-2024 ambulatory BHARTI FRIED Not Available Start: 12-14-2023 End: 12-14-2023 ambulatory ANDRE HUDSON Not Available Start: 11-04-2023 End: 11-04-2023 ambulatory ANDRE HUDSON Not Available Start: 04-03-2023 End: 04-03-[address] USMAN ALVAREZ . Facility:[facility] Start: 07-26-2022 Encounter for gynecological examination (general) (routine) without abnormal findings DR EARLENE MCDONOUGH . [facility] Start: 07-22-2022 End: 07-22-[address] EARLENE MCDONOUGH . Facility:[facility] Start: 07-22-2022 End: 07-22-2022 Encounter for gynecological examination (general) (routine) without abnormal findings DR EARLENE MCDONOUGH . Facility: Procedures Date Procedure Procedure Detail Performing Clinician Start: 07-31-2024 IGP,APTIMA HPV,AGE GDLN Andre Hudson DO Work Phone: Start: 07-10-2024 URINARY TRACT INFECT ION (HTRX) Bharti RIBEIRO Work Phone: Start: 03-31-2024 Dup-scan lxtr art/ar tl bpgs uni/lmtd study Not In System Ref Prov Start: 03-30-2024 Dup-scan xtr veins unilateral/limited study Not In System Ref Prov Start: 02-10-2024 Follow-up visit Follow-up JANI BRIDGES Start: 01-23-2024 Adult depression scr eening assessment Jani Bridges MD Work Phone: Start: 01-07-2024 Fallopian tube excision SYDNEE KAUFFMAN Comment on above: partial Start: 11-15-2023 Removal of thrombus ROXANE KAUFFMAN Start: 08-24-2023 Microscopic observat ion [Identifier] in Cervix by Cyto stain Jani Bridges MD Work Phone: H/O: hysterectomy SYDNEE VELAZQUEZ History of appendectomy ADITI KAUFFMAN Laparoscope, device (physical object) SYDNEE KAUFFMAN Comment on above: pelvic Plan of Treatment Date Care Activity Detail Author Start: 08-24-2028 Screening for malign ant neoplasm of cervix [facility] Start: 08-24-2026 Screening for malign ant neoplasm of cervix Pap Smear [facility] Start: 08-06-2025 End: 08-06-2025 Patient encounter procedure 08/06/2025 10:00 AM EDT Office Visit [facility] [address] [place] [id number] Andre Treviño, DO [address], [place] [address] [facility] Start: 07-16-2025 Influenza vaccination [facility] Start: 05-25-2025 Adult BMI Screening Adult BMI Screen ing [facility] Start: 05-25-2025 Tobacco Screening Tobacco Screening [facility] Start: 05-24-2025 End: 05-24-2025 Patient encounter procedure 05/24/2025 8:30 AM EDT Office Visit [facility] [address] [place] [address] Jani Bridges MD [address] [address] [facility] Start: 04-03-2025 End: 04-03-2025 Patient encounter procedure 04/03/2025 9:20 AM EDT Office Visit [facility] [address] [place] [id number] Andre Treviño, DO [address], [facility] Arrived [facility] Comment on above: Arrived Start: 02-13-2025 Adult BMI Screening Adult BMI Screen ing [facility] Start: 02-13-2025 Tobacco Screening Tobacco Screening [facility] Start: 01-24-2025 Adult BMI Screening Adult BMI Screen ing [facility] Start: 01-23-2025 Tobacco Screening Tobacco Screening [facility] Start: 01-22-2025 Depression Screening Depression Scre ening [facility] Start: 10-17-2024 End: 10-17-2024 Social Work 10/17/2024 11:00 AM EST Social Work [facility] [address] [place] [address] Theresa Perez, [facility] [address] [place] [address] [facility] Start: 09-20-2024 End: 09-20-2024 Social Work 09/20/2024 8:00 AM EST Social Work [facility] [address] [place] [address] Theresa Perez, [facility] [address] [place] [address] Arrived [facility] Comment on above: Arrived Start: 09-06-2024 End: 09-06-2024 Social Work 09/06/2024 2:00 PM EDT Social Work [facility] [address] [place] [address] Theresa Perez, [facility] [address] [place] [address] [facility] Start: 08-31-2024 End: 08-31-2024 Patient encounter procedure [facility] Comment on above: Arrived Start: 08-30-2024 End: 08-30-2024 Social Work 08/30/2024 9:00 AM EDT Social Work [facility] [address] [place] [address] Theresa Perez, [facility] [address] [place] [address] [facility] Start: 08-10-2024 End: 08-10-2024 Social Work [facility] Comment on above: Arrived Start: 07-31-2024 End: 07-31-2024 Patient encounter procedure [facility] Comment on above: Arrived Start: 07-18-2024 End: 07-18-2024 Social Work 07/18/2024 11:00 AM EDT Social Work [facility] [address] [place] [address] Theresa Perez, [facility] [address] [place] [address] [facility] Start: 07-16-2024 Influenza vaccination [facility] Start: 05-25-2024 End: 05-25-2024 Patient encounter procedure 05/25/2024 8:50 AM EDT Office Visit [facility] [address] [place] [address] Jani Bridges MD [address], [address] [address] [facility] Start: 05-11-2024 End: 05-11-2024 Patient encounter procedure 05/11/2024 10:00 AM EDT Office Visit [facility] [address] [place] [address] Jani Bridges MD [address], [address] [address] [facility] Start: 04-27-2024 End: 04-27-2025 CTA Upper extremity vessels - left CT angiogram extremity upper left Imaging Routine 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) Expected: 04/27/2024, Expires: 04/27/2025 [facility] Work Phone: Comment on above: Expected: 04/27/2024 , Expires: 04/27/2025 Start: 02-25-2024 End: 02-10-2025 US.doppler Thoracic and Abdominal Aorta and Inferior Vena Cava and Illiac vessels Vas IVC/iliac duplex complete Vascular Ultrasound Routine Acute deep vein thrombosis (DVT) of iliac vein of left lower extremity (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 Expected: 02/25/2024 (Approximate), Expires: 02/10/2025 [facility] Work Phone: Comment on above: Expected: 02/25/2024 (Approximate), Expires: 02/10/2025 Start: 07-16-2023 Influenza vaccination Influenza Vacc ine [facility] Start: 02-14-2019 DTaP,Tdap and Td Vaccines (6 - Tdap) DTaP,Tdap and Td Vaccines (6 - Tdap) [facility] Start: 2013 Screening for malign ant neoplasm of cervix Pap Smear [facility] Start: 2010 Adult BMI Follow Up Plan Adult BMI Follow Up Plan [facility] Bacteria identified in Urine by Culture Urine culture Microbiology Routine UTI symptoms Ordered: 07/11/2024 [facility] Comment on above: Ordered: 07/11/2024 End: 04-27-2025 C-reactive protein C-reactive protein Lab Routine 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) 1 Occurrences starting 04/27/2024 until 04/27/2025 [facility] Comment on above: 1 Occurrences starti ng 04/27/2024 until 04/27/2025 CHLAMYDIA TRACHOMATI S (GENITO/STI) CHLAMYDIA TRACHOMATIS (GENITO/STI) Lab Routine Chronic bladder pain Ordered: 07/31/2024 [facility] Comment on above: Ordered: 07/31/2024 CHLAMYDIA TRACHOMATI S (GENITO/STI) CHLAMYDIA TRACHOMATIS (GENITO/STI) Lab Routine STD exposure Ordered: 07/11/2024 [facility] Comment on above: Ordered: 07/11/2024 Cytology Cervical or vaginal smear or scraping study Pap Smear Pathology and Cytology Routine Well woman exam with routine gynecological exam Ordered: 07/31/2024 [facility] Work Phone: Comment on above: Ordered: 07/31/2024 End: 04-27-2025 Erythrocyte sedimentation rate Erythrocyte Sedimentation Rate (ESR) Lab Routine 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 ([facility]) 1 Occurrences starting 04/27/2024 until 04/27/2025 [facility] Comment on above: 1 Occurrences starti ng 04/27/2024 until 04/27/2025 Human papilloma viru s DNA [Presence] in Unspecified specimen by Probe with amplification HPV DNA probe, amplified Microbiology Routine Well woman exam with routine gynecological exam Ordered: 07/31/2024 [facility] Comment on above: Ordered: 07/31/2024 Neisseria gonorrhoea e DNA [Presence] in Unspecified specimen by MÓNICA with probe detection Neisseria gonorrhea DNA probe, direct Lab Routine Chronic bladder pain Ordered: 07/31/2024 [facility] Comment on above: Ordered: 07/31/2024 Neisseria gonorrhoea e DNA [Presence] in Unspecified specimen by MÓNICA with probe detection Neisseria gonorrhea DNA probe, direct Lab Routine STD exposure Ordered: 07/11/2024 [facility] Comment on above: Ordered: 07/11/2024 SURESWAB(R) ADVANCED VAGINITIS PLUS, TMA SURESWAB(R) ADVANCED VAGINITIS PLUS, TMA Pathology and Cytology Routine Chronic bladder pain Ordered: 07/31/2024 [facility] Comment on above: Ordered: 07/31/2024 SURESWAB(R) ADVANCED VAGINITIS PLUS, TMA SURESWAB(R) ADVANCED VAGINITIS PLUS, TMA Pathology and Cytology Routine Vaginal discharge Ordered: 07/11/2024 [facility] Work Phone: Comment on above: Ordered: 07/11/2024 Immunizations Immunization Date Immunization Notes Care Provider Сергей cheung 05-13-2021 SARS-CoV-2 (COVID-19 ) mRNA BNT-162b2 dennisx SYDNEE KAUFFMAN [facility] 04-22-2021 SARS-CoV-2 (COVID-19 ) mRNA BNT-162b2 vax SYDNEE KAUFFMAN [facility] 07-04-2019 hepatitis B vaccine, adult dosage SYDNEE KAUFFMAN [facility] 05-02-2019 hepatitis B vaccine, adult dosage SYDNEE ANTONIO [facility] 02-28-2019 hepatitis B vaccine, adult dosage SYDNEE ANTONIO [facility] 02-13-2019 Td(adult) unspecifie d formulation SYDNEE ANTONIO [facility] Comment on above: Result Comment: 2023: TENIVAC GIVEN BY DR ALVAREZ IN DEEP GAP 07-11-1997 diphtheria, tetanus toxoids and acellular pertussis vaccine SYDNEE ANTONIO [facility] 07-11-1997 measles, mumps and rubella virus vaccine SYDNEE ANTONIO [facility] 07-11-1997 poliovirus vaccine, unspecified formulation SYDNEE ANTONIO [facility] 06-23-1993 Hib, unspecified formulation SYDNEE ANTONIO [facility] 06-23-1993 measles, mumps and rubella virus vaccine SYDNEE ANTONIO [facility] 06-23-1993 poliovirus vaccine, unspecified formulation SYDNEE ANTONIO [facility] 1992 Hib, unspecified formulation SYDNEE ANTONIO [facility] 1992 Hib, unspecified formulation SYDNEE ANTONIO [facility] 1992 poliovirus vaccine, unspecified formulation SYDNEE ANTONIO [facility] 1992 Hib, unspecified formulation SYDNEE KAUFFMAN [facility] 1992 poliovirus vaccine, unspecified formulation SYDNEE KAUFFMAN [facility] Payers Date Payer Category Payer Self-pay 2024 Unknown [id number] 2022 [employer] Blue [employer] Managed Care - Other ANTH [id number] 2022 Private Health Insurance [id number] .[id number]. [id number] 2022 Unknown [id number]. 1.13.693.2. [id number] 2007 Unknown [id number] 1992 Unknown [id number] 2.16.840.1.274236.3.579.2. 593 1992 Unknown [id number] 2.16.840.1.173263.3.579.2. 593 1992 Unknown [id number] 2.16.840.1.868161.3.579.2. 1285 1992 Unknown [id number] 2.16840.1.466664.3.579.2. 1285 1992 Unknown [id number] 2.16840.1.580266.3.579.2. 1285 1992 Unknown [id number] 2.16840.1.580802.3.579.2. 1285 1992 Unknown [id number] 2.840.1.110239.3.579.2. 1285 1992 Unknown [id number] 2.840.1.401307.3.579.2. 1285 1992 Unknown [id number] 2.840.1.819803.3.579.2. 1285 1992 Unknown [id number] 2.840.1.171677.3.579.2. 1285 1992 Unknown [id number] 2.0.1.333059.3.579.2. 1285 1992 Unknown [id number] 2.840.1.182818.3.579.2. 1285 1992 Unknown [id number] 2.840.1.610321.3.579.2. 1258 1992 Unknown [id number] 2.840.1.584394.3.579.2. 1258 1992 Unknown [id number] 2.840.1.751431.3.579.2. 1258 1992 Unknown [id number] 2.840.1.582267.3.579.2. 1258 1992 Unknown [id number] 2.840.1.837910.3.579.2. 1258 1992 Unknown [id number] 2.16840.1.237872.3.579.2. 1258 1992 Unknown [id number] 2.16840.1.495271.3.579.2. 1259 1992 Unknown [id number] 2.16.840.1.206162.3.579.2. 9 1992 Unknown [id number] 2.16.840.1.206137.3.579.2. 1259 1992 Unknown [id number] 2.16.840.1.926802.3.579.2. 1258 1992 Unknown [id number] 2.16.840.1.808620.3.579.2. 1259 1992 Unknown [id number] 2.16.840.1.407618.3.579.2. 1258 1992 Unknown [id number] 2.16.840.1.646423.3.579.2. 9 1992 Unknown [id number] 2.16.840.1.426163.3.579.2. 1258 1992 Unknown [id number] 2.16.840.1.534945.3.579.2. 727 1992 Unknown [id number] 2.16.840.1.403270.3.579.2. 1992 Unknown [id number] 2.16.840.1.370723.3.579.2. 727 1992 Unknown [id number] 2.16.840.1.081709.3.579.2. 1992 Unknown [id number] 2.16.840.1.108581.3.579.2. 727 1959 Medicaid [id number] 1959 Unknown [id number] 1959 Unknown [id number] 1959 Unknown [id number] Unknown [id number] 2.16.840.1.437327.3.579.2. 531 Unknown [id number] Social History Date Type Detail Facility Start: 07-31-2024 End: 08-08-2024 Tobacco smoking status Ex-smoker (finding) [facility] Start: 12-26-2020 End: 07-31-2024 Sex Assigned At Unknown [facility] History of tobacco use Current smoker Pro [facility] History of tobacco use Cigarette Smoker P [facility] Start: 12-26-2020 End: 07-31-2024 Cigarettes smoked current (pack per day) - Reported 0.5 [facility] Start: 01-23-2024 End: 07-31-2024 Tobacco use and exposure Smokeless tobacco non-user [facility] Start: 08-03-2024 End: 08-31-2024 Alcoholic beverage intake Lifetime non-drinker (finding) [facility] Start: 09-10-2023 Tobacco Comment 5 or less ciga rettes a day [facility] Start: 1990 Sex assigned at Not on file P [facility] Start: 09-10-2023 [facility] tobacco smoker [facility] Start: 02-14-2024 End: 05-25-2024 Alcoholic beverage intake Ex-drinker (finding) [facility] Has the Flavours, or [employer] threatened to shut off services in your home in past 12Mo No [facility] How often to you hav e a drink containing alcohol? Never [facility] How many standard drinks containing alcohol do you have on a typical day? Patient does not drink [facility] Tobacco [facility] if ever smoked [facility] Work Phone: Start: 03-24-2018 End: 02-20-2025 Sex Female (finding) [facility] Start: 1990 Sex Assigned At Female F [facility] Medical Equipment Procedure Code Equipment Code Equipment Origin al Text Equipment Identifier Dates Stent Vsc 18mm X 100mm Venous Nitinol Slf Expanding Abre - [id number] Start: 01-24-2024 Functional Status Date Assessment Result Facility 12-26-2024 Functional Status N/A [facility] 10-03-2024 Functional Status N/A [facility] 08-08-2024 Functional Status N/A [facility] Clinical Notes 02-10-2024 to 12-26-2024 Note Date & Type Note Facility 12-26-2024 Hospital Discharg e instructions Patient Education 12/26/2024 10:32:16 Abdominal Pain, Adult Abdominal Pain, Adult Pain in the abdomen (abdominal pain) can be caused by many things. In most cases, it gets better with no treatment or by being treated at home. But in some cases, it can be serious. Your health care provider will ask questions about your medical history and do a physical exam to try to figure out what is causing your pain. Follow these instructions at home: Medicines Take wpyq-aaq-goshaaw and prescription medicines only as told by your provider. Do not take medicines that help you poop (laxatives) unless told by your provider. General instructions Watch your condition for any changes. Drink enough fluid to keep your pee (urine) pale yellow. Contact a health care provider if: Your pain changes, gets worse, or lasts longer than expected. You have severe cramping or bloating in your abdomen, or you vomit. Your pain gets worse with meals, after eating, or with certain foods. You are constipated or have diarrhea for more than 2 3 days. You are not hungry, or you lose weight without trying. You have signs of dehydration. These may include: ?Dark pee, very little pee, or no pee. ?Cracked lips or dry mouth. ?Sleepiness or weakness. You have pain when you pee (urinate) or poop. Your abdominal pain wakes you up at night. You have blood in your pee. You have a fever. Get help right away if: You cannot stop vomiting. Your pain is only in one part of the abdomen. Pain on the right side could be caused by appendicitis. You have bloody or black poop (stool), or poop that looks like tar. You have trouble breathing. You have chest pain. These symptoms may be an emergency. Get help right away. Call 911. Do not wait to see if the symptoms will go away. Do not drive yourself to the hospital. This information is not intended to replace advice given to you by your health care provider. Make sure you discuss any questions you have with your health care provider. Document Revised: 08/18/2023 Document Reviewed: 08/18/2023 [employer] Patient Education 2023 [employer]. Follow Up Care 10/03/2024 10:18:19 With:[facility] [place] Address: When: Unknown Comments:Only if needed/new problems arise. No scheduled appointment indicated at this time. [facility] [place] 12-26-2024 Note Patient Education Gastroenterology Abdominal Pain, Adult Pain in the abdomen (abdominal pain) can be caused by many things. In most cases, it gets better with no treatment or by being treated at home. But in some cases, it can be serious. Your health care provider will ask questions about your medical history and do a physical exam to try to figure out what is causing your pain. Follow these instructions at home: Medicines ??? Take jabi-kyr-caqtcps and prescription medicines only as told by your provider. ??? Do not take medicines that help you poop (laxatives) unless told by your provider. General instructions ??? Watch your condition for any changes. ??? Drink enough fluid to keep your pee (urine) pale yellow. Contact a health care provider if: ??? Your pain changes, gets worse, or lasts longer than expected. ??? You have severe cramping or bloating in your abdomen, or you vomit. ??? Your pain gets worse with meals, after eating, or with certain foods. ??? You are constipated or have diarrhea for more than 2?3 days. ??? You are not hungry, or you lose weight without trying. ??? You have signs of dehydration. These may include: ? Dark pee, very little pee, or no pee. ? Cracked lips or dry mouth. ? Sleepiness or weakness. ??? You have pain when you pee (urinate) or poop. ??? Your abdominal pain wakes you up at night. ??? You have blood in your pee. ??? You have a fever. Get help right away if: ??? You cannot stop vomiting. ??? Your pain is only in one part of the abdomen. Pain on the right side could be caused by appendicitis. ??? You have bloody or black poop (stool), or poop that looks like tar. ??? You have trouble breathing. ??? You have chest pain. These symptoms may be an emergency. Get help right away. Call 911. ??? Do not wait to see if the symptoms will go away. ??? Do not drive yourself to the hospital. This information is not intended to replace advice given to you by your health care provider. Make sure you discuss any questions you have with your health care provider. Document Revised: 08/18/2023 Document Reviewed: 08/18/2023 [employer] Patient Education ? 2023 [employer]. [facility] 10-03-2024 Evaluation + Plan note Extrac casandra [...] Date:12/26/2024 09:30:00 AM Scheduled Provider:SYDNEE KAUFFMAN PA-C Location:[facility] Appointment Type:URO Office Visit Appointment Date:04/04/2025 01:00:00 PM Scheduled Provider:Julien HOYOS MD Location:[facility] [place] Appointment Type:URO Office Visit [facility] 11-19-2024 Hospital Discharge instructions Patient [...] Up Care 08/18/2024 15:06:34 With:Julien HOYOS Address: [address] [place], [place] [id number]- Business (1) When:01/31/2025 10:02:39 Comments:With Roxane Antoniosukumar Felder [facility] 11-19-2024 NoteProgress Note-Physician Patient: TAWANA [...] All Problems Endometriosis (clinical) / SNOMED CT 609784457 / Confirmed Deep venous thrombosis / SNOMED CT 759412288 / Confirmed Factor V deficiency / SNOMED CT 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 Family History: Congenital heart disease Mother Primary malignant neoplasm of female breast Grandparent Alcoholism Mother Migraines Mother Procedure history: Thrombectomy (96934385) in 2023 at 34 Years. Salpingectomy (2035170587) on 01/07/2024 at 33 Years. Comments: 08/08/2024 8:57 NIKKYT - Roberto ZAMBRANOTherese partial History of appendectomy (situation) (7341390100). History of - hysterectomy (context-dependent category) (808897056). Laparoscope (867372209). Comments: 08/08/2024 8:55 NHUNG NatarajanTherese stanton MA pelvic Social History Social & Psychosocial [...] Follow-up will be in 4 months for reevaluation.[facility] CenterComment on above:Result Comment: Electronically Signed By: ROMAIN NAVARRO, Julien Pimentel.br\Date and Time Signed: 10/03/24 10:13 [id number] NotePatient Education Custom Cystoscopy with Urethral Dilation [...] have a fever over 100 degreesFisher [facility] 08-31-2024 History of Present illness Narrative* [...] via lap SALPINGECTOMY Bilateral 01/07/2024 partial THROMBECTOMY 2024 REVIEW OF SYSTEMS Review of Systems: Review [...] nursing note reviewed. Exam conducted with a hairspring i inspector present. Vitals: Estimated body mass index is [...] scheduled for a scope on 10/03/24 @ [facility]. Urology also referred patient to PT [...] of: Andre Treviño DO documented in this encounterParkland Health [id number] Hospital Discharge instructions Patient Education 08/08/2024 12:40:13 [...] known. Follow these instructions at home: Take cdvu-equ-hfijuhr and prescription medicines only as told by [...] provider. Document Revised: 03/10/2022 Document Reviewed: 03/10/2022 [employer] Patient Education 2023 [employer]. Follow Up Care 08/03/2024 15:49:20 With:[facility] [place] Address: [address] [address] Business (1) When: Unknown Comments:our tool storage attendant will be contacting you for follow-up [facility] 09-24-2024 NoteUrology Office/Clinic Note Chief Complaint Dr. [...] test anxiety. Knows she will need a company driver. Ordered: diazepam, See Instructions, 1 tab po 30-60 mins prior to cystoscopy, # 1 tab(s), Refills(s) 0, [id number], 158, cm, 08/08/24 11:39:00 EDT, Height/Length Dosing, 60, kg, 08/08/24 11:39:00 EDT, Weight Dosing E&M of New Patient Moderate 45-59 Min 24824 2. Chronic pelvic pain in female (R10.2: Pelvic and perineal pain) Sp hysterectomy 2017 w several laproscopy d/t endometriosis. Had laproscopy Dec 2023 and bilat salpingectomy at that time. Pt reports no endometriosis found at that time. Will refer to PFPT at [facility] (her sx are a bit beyond my scope of PFPT) to assess for hypertonicpelvic floor, etc. Ordered: diazepam, See Instructions, 1 tab po 30-60 mins prior to cystoscopy, # 1 tab(s), Refills(s) 0, Pharmacy: [id number], 158, cm, 08/08/24 11:39:00 EDT, Height/Length Dosing, 60, kg, 08/08/24 11:39:00 EDT, Weight Dosing 56279 Measure Post Void residual urine and/or bladder capacity by US- non-imaging E&M of New Patient Moderate 45-59 Min 24283 Urnls Dip Stick Auto w/o Microscopy POC 05525 3. Recurrent vaginitis (N76.0: Acute vaginitis) Also reports frequent vaginal infections - bacterial and fungal. Ordered: diazepam, See Instructions, 1 tab po 30-60 mins prior to cystoscopy, # 1 tab(s), Refills(s) 0, Pharmacy: [id number], 158, cm, 08/08/24 11:39:00 EDT, Height/Length Dosing, 60, kg, 08/08/24 11:39:00 EDT, Weight Dosing E&M of New Patient Moderate 45-59 Min 94165 Follow-up With When Contact Information [facility] [address] [place] [address] Business (1) Additional Instructions: our tool storage attendant will be contacting you for follow-up Patient Education Pelvic Pain, Female Problem List/Past Medical History Ongoing Anxiety Chronic bladder pain Chronic pelvic pain in female Deep venous thrombosis Endometriosis (clinical) Factor V deficiency Leukocytosis Migraine Recurrent vaginitis Historical No qualifying data Procedure/Surgical History Salpingectomy (01/07/2024), Thrombectomy (2023), H/O: hysterectomy, History of appendectomy, Laparoscope. Medications CV (more content not included)...[facility] CenterComment on above: Result Comment: Electronically Signed By: SYDNEE KAUFFMAN PA-C.shikha\Date and Time Signed: 08/08/2412:41 [id number] NotePatient Education Obstetrics and Gynecology Pelvic Pain, [...] Follow these instructions at home: ? Take zvfr-ixj-jqkoqbj and prescription medicines only as told by [...] provider. Document Revised: 03/10/2022 Document Reviewed: 03/10/2022 [employer] Patient Education ? 2023 [employer] 07-31-2024 History of Present illness Narrative* April Beth LPN - 07/31/2024 10:00 AM EDT Reason for [...] nursing note reviewed. Exam conducted with a hairspring i inspector present. Vitals: Estimated body mass index is [...] of: Andre Treviño DO documented in this encounterParkland Health [id number] History of Present illness Narrative* GEMA Earl [...] (Neurontin) 300 MG capsule 1 capsule HYDROcodone-acetaminophen ([place]) 5-325 MG tablet TAKE 1 TABLET EVERY 4 HOURS ibuprofen 800 MG tablet TAKE 1 TABLET EVERY 8 HOURS Lactobacillus Acid-Pectin (Acidophilus/[place] Pectin) tablet 1 tablet, Oral, Daily with [...] behalf of: GEMA Earl documented in this encounterParkland Health [id number] Evaluation + Plan note* Assessment & Plan Note - Jani Bridges MD - 05/25/2024 9:17 AM EDT Associated Problem(s): [place] (deep [place] thrombosis) [place] [place] Continue anticoagulation for total of 6 months. She probably benefit from D- dimer check at that time. [facility]07-11-2024 Miscellaneous Notes* Assessment & Plan Note - Jani Bridges MD - 05/25/2024 9:17 AM EDTAssociated Problem(s): DVT (deep venous thrombosis) ([facility]) Continue anticoagulation for total of 6 months. She probably benefit from D- dimer check at that time. 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 She will continue aspirin indefinitely. She will get a surveillance imaging in a year. 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 She will continue aspirin indefinitely. She will get a surveillance imaging in a year. [facility]07-11-2024 History of Present illness Narrative* Jani Bridges MD - 05/25/2024 8:50 AM EDT Images from the original note were not included. To: USMAN ALVAREZ MD HPI: Tawana Sliverman is a 34 y.o. 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 She is on aspirin and Eliquis. She also had symptoms in her neck and upper extremities and lower leg. She had a CT of the abdomen of the upper extremity that was normal. Her iliac vein is patent as well.. Review of Systems: Review of Systems Constitutional: Negative. HENT: Negative. Respiratory: Negative. Cardiovascular: Negative. Gastrointestinal: Negative. Endocrine: Negative. Genitourinary: Negative. Musculoskeletal: Negative. Skin: Negative. Neurological: Negative. Hematological: Negative. Medications: Current Outpatient Medications on File Prior to Visit Medication Sig Dispense Refill acetaminophen (TYLENOL EXTRA STRENGTH) 500 mg tablet Take 2 tablets (1,000 mg total) by mouth every6 (six) hours. 30 tablet 0 aspirin 81 mg chewable tablet Chew 1 tablet (81 mg total) and swallow in the morning. 30 tablet 90 acidophilus-pectin, citrus 25 million cell -100 mg tablet Take 1 tablet by mouth daily with breakfast. (Patient not taking: Reported on 05/25/2024) apixaban (ELIQUIS DVT-PE TREAT 30D START) 5 mg (74 tabs) tablets,dose pack tablet Take 2 tablets bymouth twice daily for 7 days, then take 1 tablet twice daily (Patient not taking: Reported on 05/25/2024) 74 tablet 0 apixaban (ELIQUIS) 5 mg tablet Take 1 tablet (5 mg total) by mouth in the morning and 1 tablet (5 mg total) before bedtime. (Patient not taking: Reported on 05/25/2024) 60 tablet 2 apixaban (ELIQUIS) 5 mg tablet Take 1 tablet (5 mg total) by mouth in the morning and 1 tablet (5 mg total) before bedtime. 60 tablet 3 levonorgestreL-ethinyl estrad (NORDETTE) 0.15-0.03 mg per tablet Take 1 tablet by mouth in the morning. (Patient not taking: Reported on 02/14/2024) oxyCODONE (ROXICODONE) 5 mg immediate release tablet Take 1 tablet (5 mg total) by mouth every 6 (six) hours as needed for pain for up to 10 doses. Max Daily Amount: 20 mg (Patient not taking: Reported on 05/25/2024) 10 tablet 0 No current facility-administered medications on file prior to visit. Past Medical History: History reviewed. No pertinent past medical history. Past Surgical History: Past Surgical History: Procedure Laterality Date APPENDECTOMY HYSTERECTOMY partial LAPAROSCOPY MECHANICAL THROMBECTOMY OF LEFT ILIAC AND FEMORAL VEINS / STENTING OF LEFT ILIAC VEIN/ IVUS OF LEFTFEMORAL ILIAC AND IVC/ LEFT LOWER EXTREMITY CENTRAL VENAGRAM Left 01/24/2024 Performed by Jani Bridges MD at [facility] Social and Family History: Social History Socioeconomic History Marital status: Spouse name: Not on file Number of children: Not on file Years of education: Not on file Highest education level: Not on file Occupational History Not on file Tobacco Use Smoking status: Former Types: Cigarettes Smokeless tobacco: Never Vaping Use Vaping status: Never Used Substance and Sexual Activity Alcohol use: Not Currently Drug use: Never Sexual activity: Defer Other Topics Concern Not on file Social History Narrative Not on file Social Determinants of Health Financial Resource Strain: Not on file Food Insecurity: No Food Insecurity (05/25/2024) Hunger Screening Food Insecurity - Worry: Never True Food Insecurity - Inability: Never True Transportation Needs: No Transportation Needs (01/23/2024) PRAPARE - Transportation Lack of Transportation (Medical): No Lack of Transportation (Non-Medical): No Physical Activity: Not on file Stress: Not on file Social Connections: Not on file Interpersonal Safety: Not At Risk (01/23/2024) Humiliation, Afraid, Rape, and Kick questionnaire Fear of Current or Ex-Partner: No Emotionally Abused: No Physically Abused: No Sexually Abused: No Housing Instability: Low Risk (01/23/2024) Housing Instability Housing Instability: No History reviewed. No pertinent family history. Recent Labs: Recent and relative labs were reviewed and interpreted and contributed to the assessment and plan below. Vitals: BP 97/68 (BP Site: Right Arm, BP Postition: Sitting, BP CUFF SIZE: M (9-13 inches)) Pulse 66 Ht157.5 cm (5' 2 ) Wt 59 kg (130 lb) SpO2 98% BMI 23.78 kg/m Body mass index is 23.78 kg/m . Physical Exam: Physical Exam Constitutional: Appearance: Normal appearance. HENT: Head: Normocephalic and atraumatic. Mouth/Throat: Mouth: Mucous membranes are moist. Eyes: Extraocular Movements: Extraocular movements intact. Pupils: Pupils are equal, round, and reactive to light. Cardiovascular: Rate and Rhythm: Normal rate and regular rhythm. Pulmonary: Effort: Pulmonary effort is normal. Breath sounds: Normal breath sounds. Abdominal: General: Abdomen is flat. Bowel sounds are normal. Palpations: Abdomen is soft. Musculoskeletal: General: Normal range of motion. Cervical back: Normal range of motion. Skin: General: Skin is warm and dry. Neurological: General: No focal deficit present. Mental Status: She is alert and oriented to person, place, and time. Mental status is at baseline. Psychiatric: Mood and Affect: Mood normal. Behavior: Behavior normal. Thought Content: Thought content normal. Judgment: Judgment normal. Recent testing: CTA of the upper extremity. CT venogram of the abdomen pelvis. 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 She will continue aspirin indefinitely. She will get a surveillance imaging in a year. Tawana was seen today for may-thurner syndrome and ct of left are follow up . Diagnoses and all orders for this visit: May-Thurner syndrome Acute deep vein thrombosis (DVT) of iliac vein of left lower extremity [place] [place] Jani Bridges MD, [place], RPVI, FSVS, FACS [facility] This note was created with the assistance of a speech recognition program. While intending to generate a timely document that accurately reflects the content of the visit, no guarantee can be provided that every grammatical or spelling mistake has been or will be identified or corrected. Thank you for your understanding. documented in this encounterGuernsey [facility] Hospital06-13-2024 Evaluation + Plan note* Assessment & Plan Note - Jani Bridges MD - 04/27/2024 12:02 PM EDT Associated Problem(s): May-Thurner syndrome Eliquis full continue for total of 6 months. Continue aspirin. [facility]06-13-2024 Miscellaneous Notes* Assessment & Plan Note - Jani Bridges MD - 04/27/2024 12:02 PM EDTAssociated Problem(s): May- Thurner syndrome Eliquis full continue for total of 6 months. Continue aspirin. 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 To: USMAN ALVAREZ MD HPI: Tawana Silverman is a 34 y.o. female with May Thurner syndrome status post thrombectomy and stenting. She has upper extremity pain and get an arterial duplex ultrasound per her PCP that is concerning forocclusive disease. Is not clear if this is vasculitis related or arterial TOS related.. We discussed the differential diagnosis and potential workup. I will get CT of the upper extremities and will get CRP and ESR. Will also continue the Eliquis for at least 6 months based on suggestions from her doughnut maker which I agree on. She will continue the aspirin as well Review of Systems: Review of Systems Constitutional: Negative. HENT: Negative. Respiratory: Negative. Cardiovascular: Negative. Gastrointestinal: Negative. Endocrine: Negative. Genitourinary: Negative. Musculoskeletal: Negative. Skin: Negative. Neurological: Negative. Hematological: Negative. Medications: Current Outpatient Medications on File Prior to Visit Medication Sig Dispense Refill acetaminophen (TYLENOL EXTRA STRENGTH) 500 mg tablet Take 2 tablets (1,000 mg total) by mouth every6 (six) hours. 30 tablet 0 acidophilus-pectin, citrus 25 million cell -100 mg tablet Take 1 tablet by mouth daily with breakfast. apixaban (ELIQUIS DVT-PE TREAT 30D START) 5 mg (74 tabs) tablets,dose pack tablet Take 2 tablets bymouth twice daily for 7 days, then take 1 tablet twice daily 74 tablet 0 apixaban (ELIQUIS) 5 mg tablet Take 1 tablet (5 mg total) by mouth in the morning and 1 tablet (5 mg total) before bedtime. 60 tablet 2 aspirin 81 mg chewable tablet Chew 1 tablet (81 mg total) and swallow in the morning. 30 tablet 90 levonorgestreL-ethinyl estrad (NORDETTE) 0.15-0.03 mg per tablet Take 1 tablet by mouth in the morning. (Patient not taking: Reported on 02/14/2024) oxyCODONE (ROXICODONE) 5 mg immediate release tablet Take 1 tablet (5 mg total) by mouth every 6 (six) hours as needed for pain for up to 10 doses. Max Daily Amount: 20 mg 10 tablet 0 No current facility-administered medications on file prior to visit. Past Medical History: No past medical history on file. Past Surgical History: Past Surgical History: Procedure Laterality Date APPENDECTOMY HYSTERECTOMY partial LAPAROSCOPY MECHANICAL THROMBECTOMY OF LEFT ILIAC AND FEMORAL VEINS / STENTING OF LEFT ILIAC VEIN/ IVUS OF LEFTFEMORAL ILIAC AND IVC/ LEFT LOWER EXTREMITY CENTRAL VENAGRAM Left 01/24/2024 Performed by Jani Bridges MD at [facility] Social and Family History: Social History Socioeconomic History Marital status: Spouse name: Not on file Number of children: Not on file Years of education: Not on file Highest education level: Not on file Occupational History Not on file Tobacco Use Smoking status: Former Types: Cigarettes Smokeless tobacco: Never Vaping Use Vaping status: Never Used Substance and Sexual Activity Alcohol use: Not Currently Drug use: Never Sexual activity: Defer Other Topics Concern Not on file Social History Narrative Not on file Social Determinants of Health Financial Resource Strain: Not on file Food Insecurity: No Food Insecurity (02/14/2024) Hunger Screening Food Insecurity - Worry: Never True Food Insecurity - Inability: Never True Transportation Needs: No Transportation Needs (01/23/2024) PRAPARE - Transportation Lack of Transportation (Medical): No Lack of Transportation (Non-Medical): No Physical Activity: Not on file Stress: Not on file Social Connections: Not on file Interpersonal Safety: Not At Risk (01/23/2024) Humiliation, Afraid, Rape, and Kick questionnaire Fear of Current or Ex-Partner: No Emotionally Abused: No Physically Abused: No Sexually Abused: No Housing Instability: Low Risk (01/23/2024) Housing Instability Housing Instability: No No family history on file. Recent Labs: Recent and relative labs were reviewed and interpreted and contributed to the assessment and plan below. Vitals: There were no vitals taken for this visit. There is no height or weight on file to calculate BMI. Physical Exam: Physical Exam Constitutional: Appearance: Normal appearance. HENT: Head: Normocephalic and atraumatic. Mouth/Throat: Mouth: Mucous membranes are moist. Eyes: Extraocular Movements: Extraocular movements intact. Pupils: Pupils are equal, round, and reactive to light. Cardiovascular: Rate and Rhythm: Normal rate and regular rhythm. Pulmonary: Effort: Pulmonary effort is normal. Breath sounds: Normal breath sounds. Abdominal: General: Abdomen is flat. Bowel sounds are normal. Palpations: Abdomen is soft. Musculoskeletal: General: Normal range of motion. Cervical back: Normal range of motion. Skin: General: Skin is warm and dry. Neurological: General: No focal deficit present. Mental Status: She is alert and oriented to person, place, and time. Mental status is at baseline. Psychiatric: Mood and Affect: Mood normal. Behavior: Behavior normal. Thought Content: Thought content normal. Judgment: Judgment normal. 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 Continue aspirin. 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 Diagnoses and all orders for this visit: May-Thurner syndrome - CT angiogram extremity upper left; Future - apixaban (ELIQUIS) 5 mg tablet; Take 1 tablet (5 mg total) by mouth in the morning and 1 tablet (5 mg total) before bedtime. 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 - Erythrocyte Sedimentation Rate (ESR); Future - C-reactive protein; Future Jani Bridges MD, [place], RPVI, FSVS, FACS [facility] This note was created with the assistance of a speech recognition program. While intending to generate a timely document that accurately reflects the content of the visit, no guarantee can be provided that every grammatical or spelling mistake has been or will be identified or corrected. Thank you for your understanding. [facility] History of Present illness Narrative* Jani Bridges MD - 02/10/2024 2:40 PM EDT Images from the original note were not included. [facility] [address] [place] [id number] Subjective: Patient ID: Tawana Silverman is a [...] Problem List Diagnosis DVT (deep venous thrombosis) ([facility]) May-Thurner syndrome Current Outpatient Medications: acetaminophen [...] of iliac vein of left lower extremity ([facility]) May-Thurner syndrome Plan Plan: Cristóbal MITCHELL US of the left iliac veins F/U in 3 months Jani Bridges MD, [place] documented in this encounterPro[facility] SystemEvaluation + Plan note No data available for this section [facility] evaluation + Plan note Future Appointments Appointment Date:04/04/2025 01:00:00 PM Scheduled Provider:Julien HOYOS MD Location:[facility] Appointment Type:URO Office Visit [facility] evaluation note* Diagnosis Vaginal discharge Leukorrhea, not specified as infective STD exposure [facility] Diagnosis [place] (generalized anxiety disorder) (CMS/HCC) Generalized anxiety disorder Adjustment disorder with depressed [...] in this [facility]* Diagnosis 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 Compression of vein 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) [facility] this encounter [facility]* Diagnosis 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 Compression of vein Acute deep vein thrombosis (DVT) of iliac vein of left lower extremity (CMS-HCC) [facility] this [facility]* Diagnosis Acute deep vein thrombosis (DVT) of iliac vein of left lower extremity (CMS-HCC)- 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 Compression of vein documented in this encounter [facility] noteNo assessment information available [facility] Work Phone: InstructionsNot on filedocumented in this encounter [facility] SystemInstructionsNot on filedocumented in this encounter [facility] SystemInstructionsNot on filedocumented in this encounter [facility] SystemInstructionsNot on filedocumented in this encounter [facility] SystemInstructionsNot on filedocumented in this encounter [facility] SystemProgress note No data available for this section [facility] Summary Purpose Family History No Family History Records FoundNo Family History Records FoundNo Family History Records Found No data available for this section No Family History Records Found No data available for this section No data available for this section No Family History Records FoundNo Family History Records Found Advance Directives Date Activated Date Inactivated Comments 01/23/2024 2:36 PM 01/25/2024 4:20 PM Date Activated Date Inactivated Comments 01/23/2024 2:36 PM 01/25/2024 4:20 PM Latest Code Status on File Code Status Date Activated Date Inactivated Comments Full Code 01/23/2024 2:36 PM 01/25/2024 4:20 PM Advance Directive Response Recorded Date/ Time Advance Directives No August 25, 2024 9:33am Reason for Referral Specialty Diagnoses / Procedures Referred By Contac t Referred To Contact Diagnoses Acute deep vein thrombosis (DVT) of iliac vein of left lower extremity ([facility]) May-Thurner syndrome Procedures Vas IVC/iliac duplex complete Jani Bridges MD [address], [address] [address] Phone: Referral ID Status Reason Start Date Expiration Date V isits Requested Visits Authorized [id number] Pending Review 02/11/2024 02/10/2025 1 1 Specialty Diagnoses / Procedures Referred By Contkahlil t Referred To Contact Radiology Diagnoses 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 ([facility]) Procedures CT angiogram extremity upper left Jani Bridges MD [address], [address] [address] Referral ID Status Reason Start Date Expiration Date V isits Requested Visits Authorized [id number] Pending Review 04/27/2024 04/27/2025 1 1 Chief Complaint and Reason for Visit Chief Complaint Admit Date C only;Chronic Pelvic Pain February 19 9:00am Additional Source Comments INFORMATION SOURCE (unrecogn ized section and content) DATE CREATED AUTHOR 04/23/2023 [facility] DATE CREATED AUTHOR AUTHOR'S ORGANIZ ATION 01/27/2024 [facility] DATE CREATED AUTHOR AUTHOR'S ORGANIZ ATION 05/31/2024 [facility] DATE CREATED AUTHOR AUTHOR'S ORGANIZ ATION 09/21/2024 [facility] DATE CREATED AUTHOR AUTHOR'S ORGANIZ ATION 02/21/2025 [facility] DATE CREATED AUTHOR AUTHOR'S ORGANIZ ATION 04/02/20[address] [facility] Patient Care team informatio n (unrecognized section and content) Dispatcher Automobile Rental Relationship Specialty Start Date End Date Usman Alvarez MD [address] [place] [address] PCP - General Family Medicine 03/24/23 Dispatcher Automobile Rental Relationship Specialty Start Date End Date Usman Alvarez MD [address] [place] [address] PCP - General Family Medicine 03/24/23 Dispatcher Automobile Rental Relationship Specialty Start Date End Date Usman Alvarez MD [address] [place] [address] PCP - General Family Medicine 03/24/23 Dispatcher Automobile Rental Relationship Specialty Start Date End Date Usman Alvarez MD [address] [place] [address] PCP - General Family Medicine 03/24/23 Dispatcher Automobile Rental Relationship Specialty Start Date End Date Usman Alvarez MD [address] [place] [address] PCP - General Family Medicine 03/24/23 Dispatcher Automobile Rental Relationship Specialty Start Date End Date Usman Alvarez MD [address] [place] [address] PCP - General Family Medicine 03/24/23 Dispatcher Automobile Rental Relationship Specialty Start Date End Date Usman Alvarez MD [address] [place] [address] PCP - General 02/09/24 Dispatcher Automobile Rental Relationship Specialty Start Date End Date Usman Alvarez MD [address] [place] [phone] PCP - General 02/09/24 Dispatcher Automobile Rental Relationship Specialty Start Date End Date Usman Alvarez MD [address] [place] [address] PCP - General 02/09/24 Dispatcher Automobile Rental Relationship Specialty [place] [address] [place], [place] [phone] PCP - General 02/09/24 Team Status: Active Member Role Status Dates Usman Alvarez MD Primary Care Provider Active Team Status: Inactive Member Role Status Dates Sydnee Kauffman PA-C Attending Provider Active Start: February 19, 2025 End: February 19, 2025 Usman Alvarez MD Primary Care Provider Active Start: February 19, 2025 End: February 19, 2025 Dispatcher Automobile Rental Relationship Specialty Start Date End Date Usman Alvarez MD PCP - General 02/09/24 Dispatcher Automobile Rental Relationship Specialty Start Date End Date Usman Alvarez MD PCP - General Family Medicine 03/24/23 Theresa Perez [facility] [address] [place] [address] Sonography Technologist Behavioral Health 01/08/25 Reason for Visit (unrecogniz ed section and content) Reason Comments STI Screening Reason Comments Follow-up Reason Comments Well Women Visit Reason Comments UTI Reason Comments Acute deep vein thrombosis (DVT) of karen c vein of left lowe Reason Comments May-Thurner syndrome Ct of left are follow up CT of left arm results Reason Comments Follow-up Thrombectomy lle. DV T and iliac stenting. Per patient she notes some discomfort to lle with mi Reason Comments Med Refill Goals (unrecognized section and content) Goals may be documented in a n alternate section FOR RECORDS PERTAINING TO PATIENTS WHO ARE [...] BE BASED ON THE PRIMARY CLINICAL RECORDS. [employer] provides no warranty or guarantee of the accuracy or completeness of information in this document.
== END 2025-04-03 19:39 | disposition home or self-care (01) ==
LOC: LAB 19:38
PROVIDERS: PCP Family Medicine; Visit Provider Obstetrics & Gynecology
DX: N64.52 Nipple discharge (principal); N61.0 Mastitis without abscess
CPT/HCPCS: 87070; 87075; 87081; 87186

== ENCOUNTER 2025-05-23 09:44 | Outpatient (OUT) | payer BC, SELFPAY ==
--- NOTE | 2025-05-23 09:50 | US_ITS ---
The [address] [address] Patient Name: KIMBERLY MCMAHON MRN: [id number] date: 1990 Sex: F Assigned Patient Location: US Current Patient Location: US Accession/Order Number: [id number] Exam Date: 05/23/2025 10:35 Report Date: 05/23/2025 10:38 At the request of: DIONNE JAIME MD Procedure: US duplex IVC DUPLEX ULTRASOUND OF THE IVC COMPARISON: 04/17/2024 CLINICAL DATA: May Aguilar's syndrome. History of left iliac DVT and stent. Real-time ultrasound evaluation of the IVC was performed. The vessel is patent and caliber is normal. The imaged common iliac arteries show asymmetric enlargement of the left in comparison to the right where a stent is again noted. There is demonstration of duplex and color Doppler blood flow at both imaged iliac veins. No occlusion is seen. There is no surrounding fluid. US/US duplex IVC IMPRESSION: LEFT ILIAC STENT. PATENT IVC AND ILIAC VEINS. Impression dictated by: Gaby Lay M.D. 05/23/2025 10:38 AM Dictation Location: [place] [address] Electronically authenticated by: [id number] Y Date: 05/23/2025 10:38
== END 2025-05-23 09:45 | disposition home or self-care (01) ==
LOC: US 09:44
PROVIDERS: PCP Family Medicine; Visit Provider Student in an Organized Health Care Education/Training Program
DX: I87.1 Compression of vein (principal); I70.208 Unspecified atherosclerosis of native arteries of extremities, other extremity; I82.422 Acute embolism and thrombosis of left iliac vein; Z95.820 Peripheral vascular angioplasty status with implants and grafts
CPT/HCPCS: 93979

== ENCOUNTER 2025-06-12 07:08 | Outpatient (RCR) | payer BC, SELFPAY | END 2025-06-14 23:59 | disposition home or self-care (01) | LOC: HEMC 07:08 | PROVIDERS: PCP Family Medicine; Visit Provider Internal Medicine Hematology & Oncology | DX: I82.402 Acute embolism and thrombosis of unspecified deep veins of left lower extremity (principal) | CPT/HCPCS: G0463 ==

== ENCOUNTER 2025-06-18 16:29 | Outpatient (OUT) | payer BC, SELFPAY ==
--- OUTSIDE RECORDS SUMMARY | 2025-06-18 16:32 | XMS_ITS | Clinical Summary ---
Author Organization [facility] Address [id number] [address] [place] [address] Care Team Providers Care House Visitor Name Role Phone Dank Alvarez MD Primary Care Provider [phone] Allergies No known active allergies Medications acidophilus-pec tin, citrus 25 million cell -100 mg tablet Take 1 tablet by mouth daily with breakfast. Active levonorgestreL- ethinyl estrad (NORDETTE) 0.15-0.03 mg per tablet Take 1 tablet by mouth in the morning. Active apixaban (ELIQUIS DVT-PE TREAT 30D START) 5 mg (74 tabs) tablets,dose pack tablet Take 2 tablets by mouth twice daily for 7 days, then take 1 tablet twice daily 74 tablet 4 Active Additional Information Patient not taking.Reported on 05/31/2025 acetaminophen (TYLENOL EXTRA STRENGTH) 500 mg tablet Take 2 tablets (1,000 mg total) by mouth every 6 (six) hours. 30 tablet 4 Active Additional Information Patient not taking.Reported on 05/31/2025 oxyCODONE (ROXICODONE) 5 mg immediate release tabletIndicatio ns:Acute deep vein thrombosis (DVT) of iliac vein of left lower extremity (CMS-HCC) Take 1 tablet (5 mg total) by mouth every 6 (six) hours as needed for pain for up to 10 doses. Max Daily Amount: 20 mg 10 tablet Active Additional Information Patient not taking.Reported on 05/31/2025 apixaban (ELIQUIS) 5 mg tablet Take 1 tablet (5 mg total) by mouth in the morning and 1 tablet (5 mg total) before bedtime. 60 tablet 2 4 Active Additional Information Patient not taking.Reported on 05/31/2025 apixaban (ELIQUIS) 5 mg tabletIndicatio ns:May-Thurner syndrome,Occlus omid disease of artery of upper extremity Take 1 tablet (5 mg total) by mouth in the morning and 1 tablet (5 mg total) before bedtime. 60 tablet 3 4 Active Additional Information Patient not taking.Reported on 05/31/2025 aspirin 81 mg chewable tablet CHEW 1 TABLET (81 MG TOTAL) AND SWALLOW IN THE MORNING. 90 tablet 30 5 Active ELIQUIS 2.5 mg tablet Take 1 tablet (2.5 mg total) by mouth. 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 Duplex ultrasound in a year. Assessment & Plan (05/25/2024 9:16 AM EDT): She will continue anticoagulation for 6 months. She will continue aspirin indefinitely. She will get a surveillance imaging in a year. Assessment & Plan (04/27/2024 12:02 PM EDT): Eliquis full continue for total of 6 months. Continue aspirin. DVT (deep venous thrombosis) 01/23/2024 Assessment & Plan (05/31/2025 7:02 PM EDT): Continue anticoagulation. Assessment & Plan (05/25/2024 9:17 AM EDT): Continue anticoagulation for total of 6 months. She probably benefit from D- dimer check at that time. 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; Acute deep vein thrombosis (DVT) of iliac vein of left lower extremity ([facility]) 05/29/2025 Travel 05/23/2025 10:00 AM EDT Ancillary Procedure [facility] [address] [place] [id number] Pain 05/10/2025 Telephone [facility] [place] [address] Jani Bridges MD 05/07/2025 Orders Only [facility] [place] [address] Nabila Strong CMA 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); 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; Acute deep vein thrombosis (DVT) of iliac vein of left lower extremity ([facility]) 05/07/2025 Telephone [facility] [place] [address] Kaity Newman from Last 3 Months Immunizations No known immunizations Social History Tobacco Use Types Packs/Day Years Used Date Smoking Tobacco: Former Cigarettes Smokeless Tobacco: Never Tobacco Cessation:Counseling Given: Not Answered Alcohol Use Standard Drinks/Week Comments Not Currently 0 (1 standard drink = 0.6 oz pur e alcohol) [facility] Utilities Answer Date Recorded In the past 12 months has [employer], gas, oil, or water Advisor [employer] threatened to shut off services in your home? No 01/23/2024 AUDIT-C Answer Date Recorded Q1: How often do you have a drink containing alcohol? Never 01/23/2024 Q2: How many drinks containi ng alcohol do you have on a typical day when you are drinking? Patient does not drink Q3: How often do you have si x or more drinks on one occasion? Never 01/23/2024 PHQ-2 Answer Date Recorded Total Score 0 01/23/2024 PRAPARE - Transportation Answer Date Re corded In the past 12 months, has l ack of transportation kept you from medical appointments or from getting medications? No 01/13 In the past 12 months, has l ack of transportation kept you from meetings, work, or from getting things needed for daily living? No 01/23/2024 Housing Instability Answer Date Recorde d Are you worried or concerned that in the next two months you may not have stable housing that you own, rent or stay in as a part of a household? No 01/23/2024 Childcare Answer Date Recorded Childcare Unknown 04/27/2019 Employment Answer Date Recorded Employment Unknown 04/27/2019 Hunger Screening Answer Date Recorded Within the past 12 months we worried whether our food would run out before we got money to buy more. Never True 05/25/2024 Within the past 12 months th e food we bought just didn't last and we didn't have money to get more. Never True 05/25/2024 Purpose - Life Answer Date Recorded Purpose and direction in life Unknown Comments No Sex and Gender Information Value Date Recorded Sex Assigned at Not on file Legal Sex Female 10:45 AM EDT Gender Identity Not on file Sexual Orientation Not on file Last Filed Vital Signs Vital Sign Reading Time Taken Comments Blood Pressure 102/68 05/31/2025 8:35 AM EDT Pulse 62 05/31/2025 8:35 AM EDT Temperature 36.7 C (98.1 F) 01/25/2024 11:15 AM EDT Respiratory Rate 18 02/14/2024 2:20 PM EDT Oxygen Saturation 98% 05/25/2024 8:43 AM EDT Inhaled Oxygen Concentration - - Weight 59.9 kg (132 lb) 05/31/2025 8:35 AM EDT Height 157.5 cm (5' 2 ) 05/25/2024 8:43 AM EDT Body Mass Index 24.14 05/25/2024 8:43 AM EDT Plan of Treatment Upcoming Encounters Date Type Department Care Team (Late st Contact Info) Description 05/27/2026 8:30 AM EDT Appointment [facility] [address] [place] [phone] Jani Bridges MD [address], [address] [address] 06/06/2026 8:30 AM EDT Office Visit [facility] [place] [address] Jani Bridges MD [address], [facility] [address] [place] [address] Health Maintenance Due Date Last Done Comments DTaP,Tdap and Td Vaccines (6 - Tdap) 02/14/2019 02/13/2019, 07/11/1997, 06/23/1993, Additional history exists COVID-19 Vaccine (2023-2 5 season) 2024 05/13/2021, 04/22/2021 Depression Screening 01/22/2025 01/23/2024 Influenza Vaccine 07/16/2025 Adult BMI Screening 05/31/2026 05/31/2025 Tobacco Screening 05/31/2026 05/31/2025 Pap Smear 07/31/2027 07/31/2024, 08/24/2023 Medical Devices Implanted Type Area Technical Support Internship Device Identifier Shelf Expiration Date Model / Serial / Lot Stent Vsc 18mm X 100mm Venous Nitinol Slf Expanding Abre - [id number] Implanted:Qty: 1 on 01/24/2024 by Jani Bridges MD at [facility] Stent Left: Vena Cava nvite [facility] 12/16/2026 [id number] / / [id number] Procedures Procedure Name Priority Date/Time Associated Diagnosis Comments VASC IVC/ILIAC DUPLEX COMPLETE Routine 05/23/2025 10:00 AM EDT Pain from Last 3 Months Results * Vas IVC/iliac duplex complete (05/23/2025 10:00 AM EDT) us Scanning Provider External CV VASCULAR ORDERABLE S Final Result [facility] from Last 3 Months Insurance ANTH Member Subscriber Plan / Payer (Ef fective 2022-Present) Name:SilvermanJori mackenziea Member ID:[id number] Relation to Subscriber:Self Name:Silverman, Tawana Subscriber ID:[id number] Payer ID:[id number] (NAIC) Type:Not on file Address: [facility] [id number] [place] [address] Advance Directives * Full Code (Latest Code Status on File) Date Activated Date Inactivated Comments 01/23/2024 2:36 PM 01/25/2024 4:20 PM Care Teams House Visitor Relationship Specialty Start Date End Date Dank Alvarez MD PCP - General 02/09/24
--- OUTSIDE RECORDS SUMMARY | 2025-06-18 16:32 | XMS_ITS | Clinical Summary ---
Author Organization [facility] Address [address] [place] [address] Care Team Providers Care Asw Specialist Name Role Phone Dank Alvarez MD Primary Care Provider [phone] Allergies No known active allergies Medications Probiotic tablet delayed-release 1 (one) time each day at the same time. Active ondansetron ODT (Zofran-ODT) 4 MG disintegrating tabletIndications:N ausea Take 1 tablet (4 mg) by mouth every 6 (six) hours if needed for nausea or vomiting for up to 30 doses 30 tablet 1 4 Active acetaminophen (Tylenol) 500 MG tablet Take 1,000 mg by mouth every 6 (six) hours 4 Active Eliquis DVT/PE Starter Pack 5 MG tablet therapy pack Take 2 tablets by mouth twice daily for 7 days, then take 1 tablet twice daily 4 Active gabapentin (Neurontin) 300 MG capsule 1 capsule 4 Active phenazopyridine (Pyridium) 100 MG tabletIndications:C hronic bladder pain Take 1 tablet (100 mg) by mouth 3 (three) times a day as needed for bladder spasms for up to 9 doses 9 tablet 4 Active cyclobenzaprine (Flexeril) 10 MG tabletIndications:C hronic bladder pain Take 0.5 tablets (5 mg) by mouth 3 (three) times a day as needed (pain) for up to 10 days 30 tablet 4 Active Active Problems Problem Noted Date Diagnosed Date Chronic bladder pain 07/31/2024 Endometriosis 11/25/2023 Pelvic pain 11/25/2023 Encounters Date Type Department Care Team Description 05/23/2025 Clinisync Result Encounter [facility] External Department Unsolicited Dionne Bridges MD 04/25/2025 Telephone [facility] [place] [address] Cyndi Norman MA 04/17/2025 8:00 AM EDT Office Visit [facility] [place] [address] Andre Treviño DO Yeast infection 04/16/2025 Travel 04/11/2025 Orders Only [facility] [place] [address] Patti Tarango LPN 04/03/2025 9:20 AM EDT Office Visit [facility] [place] [address] Andre Treviño DO Nipple pain; Nipple discharge; Nipple infection in female; Antibiotic-induced yeast infection 04/03/2025 Bamboo flowsheet [facility] [address] [facility] [place] [address] Andre Treviño DO 04/02/2025 Travel from Last 3 Months Family History Relation Name Status Comments Father Alive Mother Social History Tobacco Use Types Packs/Day Years Used Date Smoking Tobacco: Former Cigarettes 0.5 15 Smokeless Tobacco: Never Tobacco Cessation:Counseling Given: Not Answered Comments:5 or less cigarettes a day Alcohol Use Standard Drinks/Week Comments Never 0 (1 standard drink = 0.6 oz pur e alcohol) Comments No Sex and Gender Information Value Date Recorded Sex Assigned at Not on file Legal Sex Female 8:24 PM EDT Gender Identity Not on file Sexual Orientation Not on file Last Filed Vital Signs Vital Sign Reading Time Taken Comments Blood Pressure 114/70 04/03/2025 9:37 AM EDT Pulse - - Temperature - - Respiratory Rate - - Oxygen Saturation - - Inhaled Oxygen Concentration - - Weight 60.8 kg (134 lb) 04/03/2025 9:37 AM EDT Height 157.5 cm (5' 2 ) 07/31/2024 9:53 AM EDT Body Mass Index 24.51 07/31/2024 9:53 AM EDT Plan of Treatment Upcoming Encounters Date Type Department Care Team (Late st Contact Info) Description 08/06/2025 10:00 AM EDT Office Visit [facility] [address] [place] [id number] Andre Treviño DO [address] [facility] [address] [place] [address] Health Maintenance Due Date Last Done Comments Influenza Vaccine (#1) 2025 HPV/Cotest Discontinued 08/24/2023 Cervical Cancer Screening Discontinued Pap Smear Discontinued 07/31/2024, 08/24/2023 Procedures Procedure Name Priority Date/Time Associated Diagnosis Comments VASC US IVC ILIAC DUPLEX COMPLETE 05/23/2025 10:38 AM EDT CULTURE, AEROBIC BACTERIA Routine 04/03/2025 10:38 AM EDT Nipple discharge Nipple infection in female CULTURE, ANAEROBIC BACTERIA W/GRAM STAIN Routine 04/03/2025 10:38 AM EDT Nipple discharge Nipple infection in female PAP SMEAR Routine 07/31/2024 12:00 AM EDT THINPREP PAP AND HPV MRNA E6/E7 W/RFL HPV 16,18/45 Routine 08/24/2023 3:25 PM EDT Well woman exam with routine gynecological exam from Last 3 Months or Most Recently Relevant to Health Maintenance Results * Vascular US IVC iliac duplex complete (05/23/2025 10:38 AM EDT) Anatomical Region Laterality Modality Abdomen Ultrasound 05/23/2025 10:3 8 AM EDT Narrative 05/23/2025 10:41 AM EDT The [address] [address] Ultrasound Report Signed Patient: TAWANA MCMAHON MR#: [id number] : 1990 Acct:[id number] Age/Sex: 35 / F ADM Date: 05/23/25 Loc: US Attending Dr: Dionne Bridges M.D. Ordering Physician: Dionne Bridges M.D. Date of Service: 05/23/25 Procedure(s): US duplex IVC Accession Number(s): [id number] cc: Dank Alvarez M.D.; Dionne Bridges M.D. 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 Real-time ultrasound evaluation of the IVC was performed. The vessel is patent and caliber is normal. The imaged common iliac arteries show asymmetric enlargement of the left in comparison to the right where a stent is again noted. There is demonstration of duplex and color Doppler blood flow at both imaged iliac veins. No occlusion is seen. There is no surrounding fluid. US/US duplex IVC IMPRESSION: LEFT ILIAC STENT. PATENT IVC AND ILIAC VEINS. Impression dictated by: Gaby Lay M.D. 05/23/2025 10:38 AM Dictation Location: [place] [address] Electronically authenticated by: [id number] Y Date: 05/23/2025 10:38 Dictated By: Gaby Lay M.D. Signed By: 05/23/25 1041 DD/ 1038 TD/TT: Outside Sales Advertising Executive: Procedure Note Radiology, Radiologist, MD - 05/23/2025 [place] [address] Ultrasound Report Signed Patient: TAWANA MCMAHON RMR#: [id number] : 1990Acct:[id number] Age/Sex: 35 / FADM Date: 05/23/25 Loc: US Attending Dr: Dionne Bridges M.D. Ordering Physician: Dionne Bridges M.D. Date of Service: 05/23/25 Procedure(s): US duplex IVC Accession Number(s): [id number] cc: Dank Alvarez M.D.; Dionne Bridges M.D. 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 History of left iliac DVT andstent. Real-time ultrasound evaluation of the IVC was performed. The vessel is patent and caliber is normal. The imaged common iliac arteries show asymmetric enlargement of the left in comparison to the right where astent is again noted. There is demonstration of duplex and color Doppler bloodflow at both imaged iliac veins. No occlusion is seen. There is no surrounding fluid. US/US duplex IVC IMPRESSION: LEFT ILIAC STENT. PATENT IVC AND ILIAC VEINS. Impression dictated by: Gaby Lay M.D. 05/23/2025 10:38 AM Dictation Location: [place] [address] Electronically authenticated by: [id number] Y Date: 510:38 Dictated By: Gaby Lay M.D. Signed By:05/23/25 1041 DD/ 1038 TD/TT: Outside Sales Advertising Executive: Dionne Bridges MD IMG US PROCEDURES Final Resu lt * Aerobic culture (04/03/2025 10:38 AM EDT) Swab Central portion of right breast / Unknown 04/03/2025 10:38 AM EDT us Andre Hudson DO LAB MICROBIOLOGY - GENERAL ORDER ROGERIO Final Result Performing Organization Address [facility] Co de Phone Number EXTERNAL LAB * Anaerobic culture (04/03/2025 10:38 AM EDT) Swab Central portion of right breast / Unknown 04/03/2025 10:38 AM EDT us Andre Hudson DO LAB MICROBIOLOGY - GENERAL ORDER ROGERIO Final Result Performing Organization Address City/[facility]/ZIP Co de Phone Number EXTERNAL LAB * Pap Smear (07/31/2024 12:00 AM EDT) Swab Cervical swab / Unknown Hudson Nurse [facility] LAB CYTOLOGY ORDERABLES Final Result Performing Organization Address [facility] Co de Phone Number EXTERNAL LAB * THINPREP PAP AND HPV MRNA E6/E7 W/RFL HPV 16,18/45 (08/24/2023 3:25 PM EDT) Andre Hudson DO LAB BLOOD ORDERABLES Final Resul t Performing Organization Address [facility] de Phone Number EXTERNAL LAB from Last 3 Months or Most Recently Relevant to Health Maintenance Insurance [employer] Care Teams Asw Specialist Relationship Specialty Start Date End Date Dank Alvarez MD PCP - General Family Medicine 03/24/23
--- OUTSIDE RECORDS SUMMARY | 2025-06-18 16:32 | XMS_ITS | Encounter Summary ---
Author Organization [employer] Address [id number] [address] 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 Acute deep vein thrombosis (DVT) of iliac vein of left lower extremity (CMS-HCC) Procedures Vas IVC/iliac duplex complete Jani Bridges MD [address] [place] [address] Phone: tel:[phone] fax: Referral ID Status Reason Start Date Expiration Date V isits Requested Visits Authorized [id number] Authorized 05/07/2025 05/07/2026 1 1 Encounter Details Date Type Department Care Team (Late st Contact Info) Description 05/07/2025 Orders Only [facility] [address] [place] [address] Nabila Strong CMA 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); 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; Acute deep vein thrombosis (DVT) of iliac vein of left lower extremity (CMS-HCC) Social History Tobacco Use Types Packs/Day Years Used Date Smoking Tobacco: Former Cigarettes Smokeless Tobacco: Never Alcohol Use Standard Drinks/Week Comments Not Currently 0 (1 standard drink = 0.6 oz pur e alcohol) [facility] Utilities Answer Date Recorded In the past 12 months has th e electric, gas, oil, or water company threatened to shut [...] on file Sexual Orientation Not on file documented as of this encounter Plan of Treatment Upcoming Encounters Date Type Department Care Team (Late st Contact Info) Description 05/27/2026 8:[address] 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) Acute deep vein thrombosis (DVT) of iliac vein of left lower extremity (CMS-HCC) Expected: 05/07/2025, Expires: 05/07/2026 documented as of this encounter Visit Diagnoses Diagnosis 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 Compression of vein 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
--- OUTSIDE RECORDS SUMMARY | 2025-06-18 16:32 | XMS_ITS | Encounter Summary ---
Author Organization [facility] Address [address] [place] [address] Care Team Providers Care Clinical Program Coordinator Name Role Phone Dank Alvarez MD Primary Care Provider [phone] Deborah Perez [facility] Unavailable [phone] Encounter Details Date Type Department Care Team (Late Contact Info) Description 05/08/2024 Clinisync Result Encounter [facility] External Department Unsolicited Dionne Bridges MD [address], [address] [address] Social History Tobacco Use Types Packs/Day Years Used Date Smoking Tobacco: Some Days Cigarettes Comments:5 or less cigarette s a day Comments No Sex and Gender Information Value Date Recorded Sex Assigned at Not on file Legal Sex Female 8:24 PM EDT Gender Identity Not on file Sexual Orientation Not on file documented as of this encounter Plan of Treatment Upcoming Encounters Date Type Department Care Team (Late Contact Info) Description 08/06/2025 10:00 AM EDT Office Visit [facility] [place] [facility] [address] [place] [address] Andre Treviño DO [address] [place] [address] documented as of this encounter Procedures Procedure Name Priority Date/Time Associated Diagnosis Comments CT ANGIOGRAM UPPER EXTREMITY LEFT 05/08/2024 8:18 AM EDT documented in this encounter Results * CT angiogram upper extremity left (05/08/2024 8:18 AM EDT) Anatomical Region Laterality Modality Upper Extremities Left Computed Tomog bear 05/08/2024 8:18 AM EDT Narrative 05/08/2024 8:21 [place] [address] CT Scan Report Signed Patient: TAWANA MCMAHON MR#: [id number] : 1990 Acct:[id number] Age/Sex: 34 / F ADM Date: 05/05/24 Loc: CT Attending Dr: Dionne Bridges M.D. Ordering Physician: Dionne Bridges M.D. Date of Service: 05/05/24 Procedure(s): CT angio UE LT Accession Number(s): [id number] cc: Dank Alvarez M.D. [place] [address] Patient Name: TAWANA MCMAHON MRN: [id number] date: 1990 Sex: F Assigned Patient Location: CT Current Patient Location: Accession/Order Number: [id number] Exam Date: 05/05/2024 08:40 Report Date: 05/08/2024 08:18 At the request of: DIONNE BRIDGES Procedure: CT angio UE LT EXAMINATION: CT angio UE LT HISTORY: Vascular Murmur Upper Arm I87.1 COMPARISON: No relevant comparison available. TECHNIQUE: After obtaining the patient's consent, CT images were obtained without and with non-ionic intravenous contrast material. Multi-planar reformatted/3-D images were created to optimize visualization of vascular anatomy. Dose reduction techniques were achieved by using automated exposure control and/or adjustment of mA and/or kV according to patient size and/or use of iterative reconstruction technique. FINDINGS: REGION: Left arm Bones: No acute fracture, dislocation, lytic or sclerotic changes Soft tissues: Normal no soft tissue swelling skin thickening or mass ARTERIES: Normal. No flow significant stenosis occlusion or aneurysm OTHER: Negative. CT/CT angio UE LT IMPRESSION: Normal exam Electronically authenticated by: CHRISTIAN MCCRAY Date: 05/08/2024 08:18 Dictated By: Christian Mccray M.D. Signed By: 05/08/24820 DD/ 7 TD/TT: Ac/Dc Rewinder: Procedure Note Radiology, Radiologist, - 05/09/2024 [place] [address] CT Scan Report Signed Patient: TAWANA MCMAHON RMR#: [id number] : 1990Acct:[id number] Age/Sex: 34 / FADM Date: 05/05/24 Loc: CT Attending Dr: Dionne Bridges M.D. Ordering Physician: Dionne Bridges M.D. Date of Service: 05/05/24 Procedure(s): CT angio UE LT Accession Number(s): [id number] cc: Dank Alvarez M.D. [place] [address] Patient Name: TAWANA MCMAHON MRN: [id number] date: 1990 Sex: F Assigned Patient Location: CT Current Patient Location: Accession/Order Number: [id number] Exam Date: 05/05/2024 08:40 Report Date: 05/08/2024 08:18 At the request of: DIONNE BRIDGES Procedure: CT angio UE LT EXAMINATION: CT angio UE LT HISTORY: Vascular Murmur Upper Arm I87.1 COMPARISON: No relevant comparison available. TECHNIQUE: After obtaining the patient's consent, CT images were obtained without and with non-ionic intravenous contrast material. Multi-planar reformatted/3-D images were created to optimize visualization of vascular anatomy. Dose reduction techniques were achieved by using automatedexposure control and/or adjustment of mA and/or kV according to patient size and/oruse of iterative reconstruction technique. FINDINGS: REGION: Left arm Bones: No acute fracture, dislocation, lytic or sclerotic changes Soft tissues: Normal no soft tissue swelling skin thickening or mass ARTERIES: Normal. No flow significant stenosis occlusion or aneurysm OTHER: Negative. CT/CT angio UE LT IMPRESSION: Normal exam Electronically authenticated by: CHRISTIAN MCCRAY Date: 05/08/2024 08:18 Dictated By: Christian Mccray M.D. Signed By:05/08/24820 DD/ 7 TD/TT: Ac/Dc Rewinder: us Dionne Bridges MD IMG CT PROCEDURES Final Resu lt documented in this encounter Visit Diagnoses Not on filedocumented in this encounter Care Teams Clinical Program Coordinator Relationship Specialty Start Date End Date Dank Alvarez MD PCP - General Family Medicine 03/24/23 Deborah Perez, [facility] [address] [facility] [address] [place] [address] Pollution Control Chemist Behavioral Health 01/08/25 05/07/25 documented as of this encounter
--- OUTSIDE RECORDS SUMMARY | 2025-06-18 16:32 | XMS_ITS | Encounter Summary ---
Author Organization [employer] Address [id number] [address] [place] [address] Care Team Providers Care Tomahawk Weapon System Operator Name Role Phone Dank Alvarez MD Primary Care Provider [phone] Encounter Details Date Type Department Care Team (Late st Contact Info) Description 05/07/2025 Telephone [facility] [address] [place] [phone] Kaity Newman Social History Tobacco Use Types Packs/Day Years Used Date Smoking Tobacco: Former Cigarettes Smokeless Tobacco: Never Alcohol Use Standard Drinks/Week Comments Not Currently 0 (1 standard drink = 0.6 oz pur e alcohol) [facility] Utilities Answer Date Recorded In [...] on file documented as of this encounter Miscellaneous Notes * Telephone Encounter - Kaity Newman - 05/07/2025 1:56 PM EDT Pt calling to get order put in for year yearly iliac duplex/IVC. She needs order sent to [facility]. Fax number is [phone]. Please send over as pt has upcoming appt with Dr. Bridges on 05/24. Pt would like a call back when completed [phone] is best number for Tawana. * Telephone Encounter - Nabila Strong CMA - 05/07/2025 1:56 PM EDT Put order in and called patient and let her know its been faxed, Let her know to give them a coupledays , then call to get scheduled * Telephone Encounter - Mireya Peace - 05/07/2025 1:56 PM EDT Patient is calling because [facility] is asking that the last office visit note be sent for them to start prior authorization for her test. Laser Beam Machine Operator faxed office visit note and order together as requested by patient. documented in this encounter Plan of Treatment Upcoming Encounters Date Type Department Care Team (Late st Contact Info) Description 05/27/2026 8:30 AM EDT Appointment [facility] - Vascular [address] [place] [address] Jani Bridges MD [address], [address] [address] 06/06/2026 8:30 AM EDT Office Visit [facility] [address] [place] [address] Jani Bridges MD [address], [address] [address] documented as of this encounter Visit Diagnoses Not on filedocumented in this encounter Additional Health Concerns Assessment Noted Time PHQ-9 Depression Total Score: 0 01/23/20 24 7:47 PM EDT documented as of this encounter Care Teams Tomahawk Weapon System Operator Relationship Specialty Start Date End Date Dank Alvarez MD PCP - General 02/09/24 documented as of this encounter
--- OUTSIDE RECORDS SUMMARY | 2025-06-18 16:32 | XMS_ITS | Encounter Summary ---
Author Organization [facility] Address [address] [place] [address] Care Team Providers Care Air Sealing Technician Name Role Phone Dank Alvarez MD Primary Care Provider [phone] Deborah Perez [facility] Unavailable [phone] Encounter Details Date Type Department Care Team (Late Contact Info) Description 04/18/2024 Clinisync Result Encounter [facility] External Department Unsolicited Dionne Bridges MD [address], [address] [address] Social History Tobacco Use Types Packs/Day Years [...] Office Visit [facility] [address] [place] [address] Andre Treviño DO [address] [place], [place] [phone] documented as of this encounter Procedures Procedure Name Priority Date/Time Associated Diagnosis Comments VASC US IVC ILIAC DUPLEX COMPLETE 04/18/2024 11:15 AM EDT documented in this encounter Results * Vascular US IVC iliac duplex complete (04/18/2024 11:15 AM EDT) Anatomical Region Laterality Modality Abdomen Ultrasound 04/18/2024 11:1 5 AM EDT Narrative 04/18/2024 11:18 [place] [address] Ultrasound Report Signed Patient: TAWANA MCMAHON MR#: [id number] : 1990 Acct:[id number] Age/Sex: 34 / F ADM Date: 04/17/24 Loc: US Attending Dr: Dionne Bridges M.D. Ordering Physician: Dionne Bridges M.D. Date of Service: 04/17/24 Procedure(s): US duplex IVC Accession Number(s): [id number] cc: Dank Alvarez M.D.; Dionne Bridges M.D. [place] [address] Patient Name: TAWANA MCMAHON MRN: [id number] date: 1990 Sex: F Assigned Patient Location: US Current Patient Location: Accession/Order Number: [id number] Exam Date: 04/17/2024 11:29 Report Date: 04/18/2024 11:15 At the request of: DIONNE BRIDGES Procedure: US duplex IVC EXAMINATION: US duplex IVC HISTORY: Acute deep vein thrombosis of iliac vain left lower extremity ; history of left iliac vein thrombus; left leg thrombectomy and stent placement 3 months ago; May Thurner syndrome COMPARISON: No relevant comparison available. TECHNIQUE: Ultrasound was performed of the inferior vena cava FINDINGS: IVC: Duplex Doppler demonstrates normal waveform and flow, approximately 50 cm/s within mid IVC. Left iliac stent is 1.5 cm in diameter and patent. Right iliac vein is 0.5 cm in diameter and patent. OTHER: Negative. US/US duplex IVC IMPRESSION: 1. Patent left iliac vein stent. 2. No appreciable thrombus within the inferior vena cava and bilateral iliac veins. Electronically authenticated by: JUAN FRANCISCO SUAREZ Date: 04/18/2024 11:15 Dictated By: Juan Francisco Suarez M.D. Signed By: 04/18/24 1118 DD/ 1115 TD/TT: Mechanical Engineering Director: Procedure Note Radiology, Radiologist, - 04/19/2024 [place] [address] Ultrasound Report Signed Patient: TAWANA MCMAHON RMR#: [id number] : 1990Acct:[id number] Age/Sex: 34 / FADM Date: 04/17/24 Loc: US Attending Dr: Dionne Bridges M.D. Ordering Physician: Dionne Bridges M.D. Date of Service: 04/17/24 Procedure(s): US duplex IVC Accession Number(s): [id number] cc: Dnak Alvarez M.D.; Dionne Bridges M.D. [place] [address] Patient Name: TAWANA MCMAHON MRN: [id number] date: 1990 Sex: F Assigned Patient Location: US Current Patient Location: Accession/Order Number: [id number] Exam Date: 04/17/2024 11:29 Report Date: 04/18/2024 11:15 At the request of: DIONNE BRIDGES Procedure: US duplex IVC EXAMINATION: US duplex IVC HISTORY: Acute deep vein thrombosis of iliac vain left lower extremity ; history of left iliac vein thrombus; left leg thrombectomy and stentplacement 3 months ago; May Thurner syndrome COMPARISON: No relevant comparison available. TECHNIQUE: Ultrasound was performed of the inferior vena cava FINDINGS: IVC: Duplex Doppler demonstrates normal waveform and flow, [id number] cm/s within mid IVC. Left iliac stent is 1.5 cm in diameter and patent.Right iliac vein is 0.5 cm in diameter and patent. OTHER: Negative. US/US duplex IVC IMPRESSION: 1. Patent left iliac vein stent. 2. No appreciable thrombus within the inferior vena cava and bilateraliliac veins. Electronically authenticated by: JUAN FRANCISCO SUAREZ Date: 04/18/2024 11:15 Dictated By: Juan Francisco Suarez M.D. Signed By:04/18/24 1118 DD/ 1115 TD/TT: Mechanical Engineering Director: us [facility] Cyrus NAVARRO IM US PROCEDURES Final Resu lt documented in this encounter Visit Diagnoses Not on filedocumented in this encounter Care Teams Air Sealing Technician Relationship Specialty Start Date End Date Dank Alvarez MD PCP - General Family Medicine 03/24/23 Deborah Perez, [facility] [address] [facility] [address] [place] [address] Senior Supplier Quality Engineer Behavioral Health 01/08/25 05/07/25 documented as of this encounter
--- OUTSIDE RECORDS SUMMARY | 2025-06-18 16:32 | XMS_ITS | Encounter Summary ---
Author Organization [facility] Address [address] [place] [address] Care Team Providers Care Hospitality Coordinator Name Role Phone Dank Alvarez MD Primary Care Provider [phone] Deborah Perez [facility] Unavailable [phone] Encounter Details Date Type Department Care Team (Late Contact Info) Description 05/24/2024 Abstract [facility] [address] [place] [phone] Andre Treviño DO [address], [facility] Social History Tobacco Use Types Packs/Day Years [...] Upcoming Encounters Date Type Department Care Team ([facility] Contact Info) Description 08/06/2025 10:00 AM EDT Office Visit [facility] [address] [facility] [place] [address] Andre Treviño DO [address] [place], [place] [phone] documented as of this encounter Visit Diagnoses Not on filedocumented in this encounter Care Teams Hospitality Coordinator Relationship Specialty Start Date End Date Dank Alvarez MD PCP - General Family Medicine 03/24/23 Deborah Perez, [facility] [address] [place] [address] Accounting Reconciliation Clerk Behavioral Health 01/08/25 05/07/25 documented as of this encounter
--- OUTSIDE RECORDS SUMMARY | 2025-06-18 16:32 | XMS_ITS | Encounter Summary ---
Author Organization [employer] Address [id number] [address] 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 Utilities Answer Date Recorded In the past [...] got money to buy more. Never True 02/14/2024 Within the past 12 months th e food we bought just didn't last and we didn't have money to get more. Never True 02/14/2024 Purpose - Life Answer Date Recorded Purpose [...] Info) Description 05/27/2026 8:30 AM EDT Appointment 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
--- OUTSIDE RECORDS SUMMARY | 2025-06-18 16:32 | XMS_ITS | Encounter Summary ---
Author Organization [facility] Address [address] [place] [address] Care Team Providers Care Supply Room Clerk Name Role Phone Dank Alvarez MD Primary Care Provider [phone] Deborah Perez [facility] Unavailable Encounter Details Date Type Department Care Team (Late Contact Info) Description 04/11/2025 Orders Only [facility]TER[facility] [address] [place] [place] [address] Patti Tarango LPN [address] [facility] Elle [facility]11 Social History Tobacco Use Types Packs/Day Years Used Date Smoking Tobacco: Former Cigarettes 0.5 15 Smokeless Tobacco: Never Comments:5 or less cigarette s a day Alcohol Use Standard Drinks/Week Comments [...] Description 08/06/2025 10:00 AM EDT Office Visit [facility] [address] [facility] [place] [address] Andre Treviño DO [address] [place] [phone] documented as of this encounter Procedures Procedure Name Priority Date/Time Associated Diagnosis Comments PAP SMEAR Routine 07/31/2024 12:00 AM EDT documented in this encounter Results * Pap Smear (07/31/2024 12:00 AM EDT) Swab Cervical swab / Unknown us [facility] CYTOLOGY ORDERABLES Final Result EXTERNAL LAB documented in this encounter Visit Diagnoses Not on filedocumented in this encounter Care Teams Supply Room Clerk Relationship Specialty Start Date End Date Dank Alvarez MD PCP - General Family Medicine 03/24/23 Deborah Perez, [facility] [address] [place] [address] Cold Strip Feeder Behavioral Health 01/08/25 05/07/25 documented as of this encounter
--- OUTSIDE RECORDS SUMMARY | 2025-06-18 16:32 | XMS_ITS | Encounter Summary ---
Author Organization [employer] Address [id number] [address] [place] [address] Care Team Providers Care Supervisor Engine Repair Name Role Phone Dank Alvarez MD Primary Care Provider [phone] Encounter Details Date Type Department Care Team (Late st Contact Info) Description 05/10/2025 Telephone [facility] [address] [place] [address] Jani Bridges MD [address], [address] [place] [address] Social History Tobacco Use Types Packs/Day Years Used Date Smoking Tobacco: Former Cigarettes Smokeless Tobacco: Never Alcohol Use Standard Drinks/Week Comments Not Currently 0 (1 standard drink = 0.6 oz pur e alcohol) [facility] Utilities Answer Date Recorded In the past 12 months has e [employer], gas, oil, or water [employer] threatened to shut off services in your [...] encounter Miscellaneous Notes * Telephone Encounter - Mireya Peace - 05/10/2025 12:12 PM EDT Patient is calling to cancel/reschedule upcoming appointment Date of original appointment: 05/24/25 Time of original appointment: 8:40am New appointment date: 05/31/25 New appointment time: 8:30am Reason for cancel/reschedule: Moving out a week to make sure she has enough time to get testing done and sent to our office. Thank you. documented in this encounter Plan of Treatment Upcoming Encounters Date Type Department Care Team (Late st Contact Info) Description 05/27/2026 8:30 AM EDT Appointment [facility] - Vascular [address] [place] [address] Jani Bridges MD [address], [address] [address] 06/06/2026 8:30 AM EDT [facility] Visit [facility] [place] [address] [place] [address] Jani Bridges MD [address], [address] [address] documented as of this encounter Visit Diagnoses Not on filedocumented in this encounter Additional Health Concerns Assessment Noted Time PHQ-9 Depression Total Score: 0 01/23/20 24 7:47 PM EDT documented as of this encounter Care Teams Supervisor Engine Repair Relationship Specialty Start Date End Date Dank Alvarez MD PCP - General 02/09/24 documented as of this encounter
--- OUTSIDE RECORDS SUMMARY | 2025-06-18 16:32 | XMS_ITS | Encounter Summary ---
Author Organization [facility] Address [address] [place] [address] Care Team Providers Care Room Service Clerk Name Role Phone Dank Alvarez MD Primary Care Provider [phone] Deborah Perez [facility] Unavailable [phone] Encounter Details Date Type Department Care Team (Late Contact Info) Description 08/28/2024 Abstract [facility] [address] [place] [phone] Andre Treviño DO [address], [place] [address] Social History Tobacco Use Types Packs/Day Years [...] Upcoming Encounters Date Type Department Care Team ([facility] Contact Info) Description 08/06/2025 10:00 AM EDT Office Visit [facility] MONTER[facility] [address] [place] [phone] Andre Treviño DO [address], [facility] documented as of this encounter Visit Diagnoses Not on filedocumented in this encounter Care Teams Room Service Clerk Relationship Specialty Start Date End Date Dank Alvarez MD PCP - General Family Medicine 03/24/23 Deborah Perez, [facility] [address] [place] [address] Delivery Crew Member Behavioral Health 01/08/25 05/07/25 documented as of this encounter
--- OUTSIDE RECORDS SUMMARY | 2025-06-18 16:32 | XMS_ITS | Encounter Summary ---
Author Organization [employer] Address [id number] [address] [place] [address] Care Team Providers Care Fuel Cell Builder Name Role Phone Dank Alvarez MD Primary Care Provider [phone] Encounter Details Date Type Department Care Team (Late st Contact Info) Description 02/14/2024 Orders Only [facility] [address] [place] [address] Josiane Arroyo LPN Social History Tobacco Use Types Packs/Day Years Used Date Smoking Tobacco: Former Cigarettes Smokeless Tobacco: Never Alcohol Use Standard Drinks/Week Comments Not Currently 0 (1 standard drink = 0.6 oz pur e alcohol) [facility] Utilities Answer Date Recorded In the past 12 months has e electric, gas, oil, or water company [...] Description 05/27/2026 8:30 AM EDT Appointment [facility] - Vascular [address] [place] [address] Jani Bridges MD [address], [address] [address] 06/06/2026 8:30 AM EDT Office Visit [facility] [address] [place] [address] Jani Bridges MD [address], [address] [address] documented as of this encounter Visit Diagnoses Not on filedocumented in this encounter Additional Health Concerns Assessment Noted Time PHQ-9 Depression Total Score: 0 01/23/20 24 7:47 PM EDT documented as of this encounter Care Teams Fuel Cell Builder Relationship Specialty Start Date End Date Dank Alvarez MD PCP - General 02/09/24 documented as of this encounter
--- OUTSIDE RECORDS SUMMARY | 2025-06-18 16:32 | XMS_ITS | Encounter Summary ---
Author Organization [employer] Address [id number] [address] [place] [address] Care Team Providers Care Diet Aid Name Role Phone Dank Alvarez MD Primary Care Provider [phone] Encounter Details Date Type Department Care Team (Late st Contact Info) Description 05/11/2024 Orders Only [facility] [address] [place] [address] Jani Bridges MD [address], [address] [address] Social History Tobacco Use Types Packs/Day Years Used Date Smoking Tobacco: Former Cigarettes Smokeless Tobacco: Never Alcohol Use Standard Drinks/Week Comments Not Currently 0 (1 standard drink = 0.6 oz pur e alcohol) [facility] Utilities Answer Date Recorded In the past 12 months has e [employer], gas, oil, or water [employer] threatened to shut off services in your [...] Info) Description 05/27/2026 8:30 AM EDT Appointment [facility] - Vascular [address] [place] [address] Jani Bridges MD [address], [address] [place] [address] 06/06/2026 8:30 AM EDT Office Visit [facility] [address] [place] [address] Jani Bridges MD [address], [address] [place] [address] documented as of this encounter Procedures Procedure Name Priority Date/Time Associated Diagnosis Comments CT CTA CAROTID Routine 05/08/2024 1:33 PM EDT documented in this encounter Results * CT angiogram carotid (05/08/2024 1:33 PM EDT) Anatomical Region Laterality Modality Neuro, Neck, Vascular, Neuro Covera N/A Computed Tomography us Jani Bridges MD IMG CT ORDERABLES Final Resul t documented in this encounter Visit Diagnoses Not on filedocumented in this encounter Additional Health Concerns Assessment Noted Time PHQ-9 Depression Total Score: 0 01/23/20 24 7:47 PM EDT documented as of this encounter Care Teams Diet Aid Relationship Specialty Start Date End Date Dank Alvarez MD PCP - General 02/09/24 documented as of this encounter
--- OUTSIDE RECORDS SUMMARY | 2025-06-18 16:32 | XMS_ITS | Encounter Summary ---
Author Organization [id number] Address [id number] [address] 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 ([facility]) Social History Tobacco Use Types Packs/Day Years Used Date Smoking Tobacco: Former Cigarettes Smokeless Tobacco: Never Alcohol Use Standard Drinks/Week Comments Not Currently 0 (1 standard drink = 0.6 oz pur e alcohol) [facility] Utilities Answer Date Recorded In [...] Info) Description 05/27/2026 8:30 AM EDT Appointment [facility] - Vascular [address] [place] [address] Jani Bridges MD [address], [address] [address] 06/06/2026 8:30 AM EDT Office Visit [facility] [address] [place] [address] Jani Bridges MD [address], [address] [place] [address] documented as of this encounter Visit Diagnoses 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
--- OUTSIDE RECORDS SUMMARY | 2025-06-18 16:32 | XMS_ITS | Encounter Summary ---
Author Organization [employer] Address [id number] [address] [place] [address] Care Team Providers Care Barrel Builder Name Role Phone Dank Alvarez MD Primary Care Provider [phone] Encounter Details Date Type Department Care Team (Late st Contact Info) Description 05/15/2024 Orders Only [facility] [address] [place] [address] Jani Bridges MD [address], [facility] [address] [place] [address] Social History Tobacco Use Types Packs/Day Years Used Date Smoking Tobacco: Former Cigarettes Smokeless Tobacco: Never Alcohol Use Standard Drinks/Week Comments Not Currently 0 (1 standard drink = 0.6 oz pur e alcohol) [facility] Utilities Answer Date Recorded In the past 12 months has e [employer], gas, oil, or water [employer] threatened to shut off services in your [...] Info) Description 05/27/2026 8:30 AM EDT Appointment [facility] - Vascular [address] [place] [address] Jani Bridges MD [address], [address] [place] [address] 06/06/2026 8:30 AM EDT Office Visit [facility] [address] [place] [address] Jani Bridges MD [address], [address] [place] [address] documented as of this encounter Procedures Procedure Name Priority Date/Time Associated Diagnosis Comments VASC IVC/ILIAC DUPLEX COMPLETE Routine 04/17/2024 4:23 PM EDT documented in this encounter Results * Vas IVC/iliac duplex complete (04/17/2024 4:23 PM EDT) Anatomical Region Laterality Modality Vascular N/A Ultrasound us Jani Bridges MD CV VASCULAR ORDERABLES Final Result documented in this encounter Visit Diagnoses Not on filedocumented in this encounter Additional Health Concerns Assessment Noted Time PHQ-9 Depression Total Score: 0 01/23/20 24 7:47 PM EDT documented as of this encounter Care Teams Barrel Builder Relationship Specialty Start Date End Date Dank Alvarez MD PCP - General 02/09/24 documented as of this encounter
--- OUTSIDE RECORDS SUMMARY | 2025-06-18 16:32 | XMS_ITS | Encounter Summary ---
Author Organization [employer] Address [id number] [address] 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; Acute deep vein thrombosis (DVT) of iliac vein of left lower extremity ([facility]) Social History Tobacco Use Types Packs/Day Years Used Date Smoking Tobacco: Former Cigarettes Smokeless Tobacco: Never Alcohol Use Standard Drinks/Week Comments Not Currently 0 (1 standard drink = 0.6 oz pur e alcohol) [facility] Utilities Answer Date Recorded In the past 12 months has th e [employer], gas, oil, or water [employer] threatened to shut off services in your [...] Info) Description 05/27/2026 8:30 AM EDT Appointment [facility] - Vascular [address] [place] [address] Jani Bridges MD [address], [address] [place] [address] 06/06/2026 8:30 AM EDT Office Visit [facility] [address] [place] [address] Jani Bridges MD [address], [address] [place] [address] documented as of this encounter Visit Diagnoses 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
--- OUTSIDE RECORDS SUMMARY | 2025-06-18 16:32 | XMS_ITS | Encounter Summary ---
Author Organization [employer] Sys tem Address [id number] [address] [place] [address] Care Team Providers Care Livestock Trucker Name Role Phone Dank Alvarez MD Primary Care Provider [phone] Encounter Details Date Type Department Care Team (Late st Contact Info) Description 01/24/2024 Orders Only [facility] External [facility] Storage [facility] [place] [address] Transcribe, Orders Support User Pain (Primary Dx) Social History Tobacco Use Types Packs/Day Years [...] got money to buy more. Never True 01/23/2024 Within the past 12 months th e food we bought just didn't last and we didn't have money to get more. Never True 01/23/2024 Purpose - Life Answer Date Recorded Purpose [...] Info) Description 05/27/2026 8:30 AM EDT Appointment [facility] - Vascular [address] [place] [address] Jani Bridges MD [address] [address] 06/06/2026 8:30 AM EDT Office Visit [facility] [address] [place] [address] Jani Bridges MD [address], [address] [address] documented as of this encounter Results * Vas venous duplex lwr single left (01/23/2024 10:20 AM EDT) us Scanning Provider External CV VASCULAR ORDERABLE S Final Result [facility] documented in this encounter Visit Diagnoses Diagnosis Pain- Primary Generalized pain documented in this encounter Additional Health Concerns Assessment Noted Time PHQ-9 Depression Total Score: 0 01/23/20 24 7:47 PM EDT documented as of this encounter Care Teams Livestock Trucker Relationship Specialty Start Date End Date Dank Alvarez MD PCP - General 02/09/24 documented as of this encounter
--- OUTSIDE RECORDS SUMMARY | 2025-06-18 16:32 | XMS_ITS | Encounter Summary ---
Author Organization [employer] Address [facility] [id number] [address] [place] [address] Care Team Providers Care Splunk Architect Name Role Phone Dank Alvarez MD Primary Care Provider [phone] Reason for Referral * Specialty Diagnoses / Procedures Referred By Contkahlil t Referred To Contact Vascular Surgery [facility] [address] [place] [address] Phone: tel: fax: Referral ID Status Reason Start Date Expiration Date Visits Re quested Visits Authorized Encounter Details Date Type Department Care Team ([facility] st Contact Info) Description 08/28/2024 Orders Only [facility] [address] [place] [address] Dank Alvarez MD [address] [facility], [place] [address] Social History Tobacco Use Types Packs/Day Years Used Date Smoking Tobacco: Former Cigarettes Smokeless Tobacco: Never Alcohol Use Standard Drinks/Week Comments Not Currently 0 (1 standard drink = 0.6 oz pur e alcohol) [facility] Utilities Answer Date Recorded In the [...] Info) Description 05/27/2026 8:30 AM EDT Appointment [facility] - Vascular [address] [place] [address] Jani Bridges MD [address], [address] [address] 06/06/2026 8:30 AM EDT Office Visit [facility] [address] [place] [address] Jani Bridges MD [address], [address] [address] documented as of this encounter Procedures Procedure Name Priority Date/Time Associated Diagnosis Comments AMB REFERRAL TO VASCULAR SURGERY Routine 08/22/2024 11:10 AM EDT documented in this encounter Results * Ambulatory referral to Vascular Surgery (08/22/2024 11:10 AM EDT) us Dank Alvarez MD OUTPATIENT REFERRAL ORDERABLES Final Result [employer] TRANSCRIBED RESULTS documented in this encounter Visit Diagnoses Not on filedocumented in this encounter Additional Health Concerns Assessment Noted Time PHQ-9 Depression Total Score: 0 01/23/20 24 7:47 PM EDT documented as of this encounter Care Teams Splunk Architect Relationship Specialty Start Date End Date Dank Alvarez MD PCP - General 02/09/24 documented as of this encounter
--- OUTSIDE RECORDS SUMMARY | 2025-06-18 16:32 | XMS_ITS | Encounter Summary ---
Author Organization [facility] Address [address] [place] [address] Care Team Providers Care County Library Director Name Role Phone Dank Alvarez MD Primary Care Provider [phone] Deborah Perez [facility] Unavailable [phone] Encounter Details Date Type Department Care Team (Late Contact Info) Description 08/09/2024 Abstract [facility] [address] [place] [address] Andre Treviño DO [address], [place] [address] Social History Tobacco Use Types Packs/Day Years [...] 10:00 AM EDT Office Visit [facility] [place] [id number] Andre Treviño DO [address], [facility] documented as of this encounter Visit Diagnoses Not on filedocumented in this encounter Care Teams County Library Director Relationship Specialty Start Date End Date Dank Alvarez MD PCP - General Family Medicine 03/24/23 Deborah Perez, [facility] [address] [place] [address] [facility] 01/08/25 05/07/25 documented as of this encounter
[2025-06-18 16:46] LABS: Hematocrit 41.1 % (36.0-48.0); Hemoglobin 14.3 g/dL (12.0-16.0); Immature Granulocytes Abs Auto 0.02 10^3/uL (0.00-0.03); Immature Granulocytes Pct Auto 0.3 % (0.0-0.5); Lymphocytes Absolute Auto 2.8 10^3/uL (1.2-3.8); Mean Corpuscular HGB Conc 34.8 g/dL (29.9-35.2); Mean Corpuscular Hemoglobin 32.8 pg (26.7-34.0); Mean Corpuscular Volume 94.3 fL (81.0-99.0); Platelet Count 193 10^3/uL (150-450); Red Blood Count 4.36 10^6/uL (4.20-5.40); White Blood Count 7.1 10^3/uL (4.0-11.0)
[2025-06-18 16:54] LABS: Anion Gap 6.7; Blood Urea Nitrogen 12.0 mg/dL (7.0-18.0); Calcium 8.8 mg/dL (8.5-10.1); Carbon Dioxide 28.9 mmol/L (21.0-32.0); Chloride 103 mmol/L (98-107); Estimated GFR (African America >60 (>=60 mL/min/1.73m^2); Estimated GFR (Non-African Ame >60 (>=60 mL/min/1.73m^2); Glucose 87 mg/dL (74-106); Potassium 3.6 mmol/L (3.5-5.1); Sodium 135 mmol/L (136-145)
[2025-06-18 17:10] LABS: Iron 52.0 ug/dL (50.0-170.0); Percent Iron Saturation 23.0 %; Total Iron Binding Capacity 226.0 ug/dL (250.0-450.0)
[2025-06-18 17:31] LABS: Ferritin 64.0 ng/mL (8.0-252.0)
== END 2025-06-18 16:30 | disposition home or self-care (01) ==
PROVIDERS: PCP Family Medicine; Visit Provider Internal Medicine Hematology & Oncology
DX: I82.402 Acute embolism and thrombosis of unspecified deep veins of left lower extremity (principal)
CPT/HCPCS: 36415; 80048; 82728; 83540; 83550; 85025

== ENCOUNTER 2025-06-27 07:29 | Outpatient (OUT) | payer BC, SELFPAY ==
--- OUTSIDE RECORDS SUMMARY | 2025-06-13 06:30 | XMS_ITS ---
Author Organization [facility] in [place] Address [address] [place] [address] Care Team Providers Care C++ Professor Name Role Phone Rui Alvarez Primary Care Provider Allergies No Known Allergies Reason For Referral Diagnosis 1 Sacrococcygeal disor ders, not elsewhere classified (M53.3) Referral Organization [facility] Referring Provider First Name Rui Referring Provider Last Name Kim Referring Provider Speciality Family Med icine Referred Provider Pain Management, [facility] Referred Provider Specialty Pain Medicin e Referral Priority Routine REASON FOR VISIT Left hip pain- finished PT, PT did help some, still doing the exercises at home- doesn't relieve the pain mcfp- worse when sitting or standing for long periods of time, Did have her f/u with Vascular as well- everything was fine there- they said the stent shouldn't be causing the pain, Was taking a muscle relaxer from Dr Treviño for PRN use, Camp Assistant refilled the muscle relaxer for her yesterday [...] Arthralgia of the pelvic region and thigh ([id number]) Left hip pain (M25.552) Active confirmed Vital Signs Weight 133.0 lbs 06/13/2025 Height 62 in 06/13/2025 Blood pressure systolic 122 mm Hg 06/13/20 25 Blood pressure diastolic 84 mm Hg 025 BMI 24.32 kg/m2 06/13/2025 Encounters Encounter Location Date Provider Diagnosis [facility] [address] [place] [address] 06/13/2025 Rui Hoy Sacrococcygeal disor ders, not elsewhere classified M53.3 and Left hip pain M25.552 Assessments Encounter Date Diagnosis (ICD Code) Assessment Notes Treatment Notes Treatment Clinical Notes Section Notes 06/13/2025 Sacrococcygeal disorders, not elsewhere classified (ICD-10 - M53.3) 06/13/2025 Left hip pain (ICD-10 - M25.552) Plan Of Treatment Referrals Referral Date Details 06/13/2025 06/13/2025, [facility] Pain Management Next Appt Details Provider Name:Yanni Durand , 06/11/2026 08:30:00 AM, [address] [place], [address], Progress Notes * Tawana MCMAHON RDOB: 2 (35 yo F)Acc No.[id number]:06/13/2025 Progress Note Patient: Tawana ARZOLA Provider: Hanane Alvarez ([facility])MD :1990 A ge:35 Y S ex:Female Date:06/13/2025 Address:[address] [place], [place] [id number] Check In:10:21 AM ESTCheck O ut:11:19 AM EST Subjective: * Chief Complaints: * L eft hip pain- finished PT, PT did help some, still doing the exercises at home- doesn't relieve the pain mcfp- worse when sitting or standing for long [...] 06/13/2025 Generated for Jeffery gutiérrez/Macario/eTransmitting on: 0 06/27/2025 07:31 AM EDT History and Physical Notes * [...] Not es 06/13/2025 Rui Alvarez Pain Management, [facility]
--- OUTSIDE RECORDS SUMMARY | 2025-06-13 07:16 | XMS_ITS ---
Author Organization The [facility] in [place] Address [address] [place] [address] Care Team Providers Care Pole Setter Name Role Phone Rui Alvarez Primary Care Provider REASON FOR VISIT Arthrocentesis Encounters Encounter Location Date Provider Diagnosis [facility] [address] [place] [address] 06/13/2025 Rui Alvarez Left hip pain M25.55 2 Assessments Encounter Date Diagnosis (ICD Code) Assessment Notes Treatment Notes Treatment Clinical Notes Section Notes 06/13/2025 Left hip pain (ICD-10 - M25.552) Plan Of Treatment Pending Test Test Name Order Date US ARTHROCENTESIS, WITH US GUIDANCE 05/17 Next Appt Details Provider Name:Yanni Durand , 06/11/2026 08:30:00 AM, [address] [place], [address], Progress Notes * Tawana MCMAHON RDOB: 2 (35 yo F)Acc No.[id number]:06/13/2025 Patient: Slim CLEANINGTawana SIEGEL :1990 A ge:35 Y S ex:Female Address:[address] [place] [address], [phone] Subjective: * Chief Complaints: * A rthrocentesis * Medical History: * Surgical History: * Hospitalization/Major Diagno stic Procedure: * Medications: Objective: * Vitals: * Physical Examination: Assessment: * Assessment: 1. L eft hip pain - M25.552 (Primary) Plan: * Treatment: * Procedure Codes: * true * Date: Generated for Jeffery gutiérrez/Macario/Dyllan on: 0 06/27/2025 07:31 AM EDT
--- OUTSIDE RECORDS SUMMARY | 2025-06-25 06:50 | XMS_ITS ---
Author Organization [facility] [place] Address [address] [place] [address] Care Team Providers Care Wheat Buyer Name Role Phone Rui Alvarez Primary Care Provider [phone] Reason For Referral Diagnosis 1 Left hip pain (M25.5 52) Referral Organization [facility] Referring Provider First Name Rui Referring Provider Last Name Kim Referring Provider [facility] icine Referred Provider Patricio Ledesma Referred Provider Specialty Orthopedic S urgery Referral Priority Routine REASON FOR VISIT hip injection Encounters Encounter Location Date Provider Diagnosis [facility] [address] [place] [address] 06/25/2025 Rui Alvarez Left hip pain M25.55 2 Assessments Encounter Date Diagnosis (ICD Code) Assessment Notes Treatment Notes Treatment Clinical Notes Section Notes 06/25/2025 Left hip pain (ICD-10 - M25.552) Plan Of Treatment Referrals Referral Date Details 06/26/2025 06/26/2025, Patricio garcia Next Appt Details Provider Name:Yanni Durand , 06/11/2026 08:30:00 AM, [address] [place], [address], Progress Notes * Tawnaa MCMAHON RDOB: 2 (35 yo F)Acc No.[id number]:06/25/2025 Patient: Tawana ARZOLA :1990 A ge:35 Y S ex:Female Address:[address] [place] [address], [address] Subjective: * Chief Complaints: * H ip injection * Medical History: * Surgical History: * Hospitalization/Major Diagno stic Procedure: * Medications: Objective: * Vitals: * Physical Examination: Assessment: * Assessment: 1. L eft hip pain - M25.552 (Primary) Plan: * Treatment: * Procedure Codes: * true * Date: Generated for Jeffery gutiérrez/Macario/eTlouissmitting on: 0 06/27/2025 07:31 AM EDT Consultation Request Notes Referral Date Referring Provider Referred Provider Not es 06/26/2025 Rui Alvarez Justin
--- OUTSIDE RECORDS SUMMARY | 2025-06-27 07:31 | XMS_ITS | Patient Health Record ---
Author Organization [facility] in [place] Address [address] [place] [address] Care Team Providers Care Dining Room Host Name Role Phone Rui Alvarez Primary Care Provider [phone] Jonathon Hernandez Unavailable [phone] Yanni Durand Unavailable [phone] Allergies No Known Allergies Results Component Value Reference Range Notes CBC AUTO DIFF Reviewed date:10/10/2024 05:51:18 PM Interpretation: Performing Lab: Notes/Report: [facility] , White Blood Count 5.4 4.0-11.0 10 3/uL Red Blood Count 4.49 4.20-5.40 10 6/uL Hemoglobin 14.6 12.0-16.0 g/dL Hematocrit 42.6 36.0-48.0 % Mean Corpuscular Volume 94.9 81.0-99.0 fL Mean Corpuscular Hemoglobin 32.5 26.7-34.0 pg Mean Corpuscular HGB Conc 34.3 29.9-35.2 g/dL Red Cell Distribution Width 11.8 11.0-15.0 % Platelet Count 207 150-450 10 3/uL Mean Platelet Volume 10.0 9.5-13.5 fL Neutrophils Percent Auto 44.9 43.0-75.0 % Lymphocytes Percent Auto 46.3 20.5-60.0 % Monocytes Percent Auto 6.1 1.7-12.0 % Eosinophils Percent Auto 1.9 0.9-7.0 % Basophils Percent Auto 0.4 0.2-2.0 % Immature Granulocytes Pct Auto 0.4 0.0-0.5 % Neutrophils Absolute Auto 2.4 1.4-6.5 10 3/uL Lymphocytes Absolute Auto 2.5 1.2-3.8 10 3/uL Monocytes Absolute Auto 0.3 0.3-0.8 10 3/uL Eosinophils Absolute Auto 0.1 0.0-0.7 10 3/uL Basophils Absolute Auto 0.0 0.0-0.1 10 3/uL Immature Granulocytes Abs Auto 0.02 0.00-0.03 10 3/uL Performing Lab: see note ML - [facility] LB XR hip LT 2V w/ pelvis Reviewed date:07/23/2024 08:51:20 PM Interpretation: Performing Lab: Notes/Report: Source Facility: [place] [address] [place] [address] XRay Report Signed Patient: KIMBERLY SILVERMAN MR#: [id number] : 1990 Acct:[id number] Age/Sex: 34 / F ADM Date: 07/21/24 Loc: US Attending Dr: Usman Alvarez M.D. Ordering Physician: Usman Alvarez M.D. Date of Service: 07/21/24 Procedure(s): XR hip LT 2V w/ pelvis Accession Number(s): [id number] cc: Usman Alvarez M.D. [place] [address] Patient Name: KIMBERLY SILVERMAN MRN: [id number] date: 1990 Sex: F Assigned Patient Location: Current Patient Location: US Accession/Order Number: [id number] Exam Date: 07/21/2024 08:05 Report Date: 07/22/2024 07:35 At the request of: USMAN ALVAREZ Procedure: XR hip LT 2V w/ pelvis PROCEDURE: XR hip LT 2V w/ pelvis HISTORY: Hip pain , low back pain COMPARISON: None. FINDINGS: BONES:No fracture, acute abnormality, or significant arthropathy. SOFT TISSUES:No visible soft tissue swelling. EFFUSION:None visible. OTHER: Endovascular stent within left common iliac vein versus artery. XR/XR hip LT 2V w/ pelvis IMPRESSION: 1. No acute bone abnormality or appreciable degenerative changes of the left hip. Electronically authenticated by: JUAN FRANCISCO SUAREZ Date: 07/22/2024 07:35 Dictated By: Juan Francisco Suarez M.D. Signed By: 07/22/2437 DD/ 4 TD/TT: Fuse Cup Expander: [place] [address] XRay Report Signed Patient: TYREE SILVERMAN MR#: [id number] : 1990 Acct:[id number] Age/Sex: 34 / F ADM Date: 07/21/24 Loc: US Attending Dr: Cole Alvarez M.D. Ordering Physician: Usman Alvarez M.D. Date of Service: 07/21/24 Procedure(s): XR hip LT 2V w/ pelvis Accession Number(s): [id number] cc: Usman Alvarez M.D. [place] [address] Patient Name: KIMBERLY SILVERMAN MRN: [id number] date: 1990 Sex: F Assigned Patient Location: Current Patient Location: Accession/Order Numb er: [id number] Exam Date: 07/21/2024 08:05 Report Date: 07/22/2024 07:35 At the request of: USMAN ALVAREZ Procedure: XR hip LT 2V w/ pelvis PROCEDURE: XR hip LT 2V w/ pelvis HISTORY: Hip pain , low back pain COMPARISON: None. FINDINGS: BONES:No fracture, acute abnormality, or significant arthropathy. SOFT TISSUES:No visi ble soft tissue swelling. EFFUSION:None visible. OTHER: Endovascular stent within left common iliac vein versus artery. XR/XR hip LT 2V w/ pelvis IMPRESSION: 1. No acute bone abnormality or appreciable degenerative changes of the left hip. Electronically authenticated by: JUAN FRANCISCO SUAREZ Date: 07/22/2024 07:35 Dictated By: Juan Francisco Suarez M.D. Signed By: 07/22/2437 DD/ 0735 TD/TT: Fuse Cup Expander: CRP Reviewed date:07/26/2024 09:52:37 PM Interpretation: Performing Lab: Notes/Report: [facility] , C Reactive Protein <0.50 <=0.50 mg/dL Performing Lab: see note - [facility] LB URIC ACID SERUM Reviewed date:07/26/2024 09:52:37 PM Interpretation: Performing Lab: Notes/Report: [facility] , Uric Acid 3.4 2.6-6.0 mg/dL Performing Lab: see note ML - [facility] LB Erythrocyte Sedimentation Ra te Reviewed date:07/26/2024 09:52:38 PM Interpretation: Performing Lab: Notes/Report: [facility] , Erythrocyte Sedimentation Rate 6 <=20 mm/hr Performing Lab: see note - [facility] LB Antistreptolysin O Ab Reviewed date:09/04/2024 08:37:19 PM Interpretation: Performing Lab: Notes/Report: [facility] , Antistreptolysin O Ab 408.9 0.0-200.0 IU/mL Performed at: [facility] [id number] Shipping Room Supervisor: Ayo Pardo PhD, Phone: [phone] Performing Lab: see note - [facility] LB Anti-dsDNA Antibodies Reviewed date:09/04/2024 08:37:19 PM Interpretation: Performing Lab: Notes/Report: [facility] , Anti-dsDNA Antibodies 3 0-9 IU/mL Negative <5 Equivocal 5 - 9 Positive >9 Performed at: [facility] [id number] Shipping Room Supervisor: Ayo Pardo PhD, Phone: [phone] Performing Lab: see note - [facility] LB MR hip LT wo con Reviewed date:12/18/2024 08:59:24 PM Interpretation: Performing Lab: Notes/Report: Source Facility: [facility] [place] [address] [place] [address] Magnetic Resonance Report Signed Patient: KIMBERLY SILVERMAN MR#: [id number] : 1990 Acct:[id number] Age/Sex: 34 / F ADM Date: 12/18/24 Loc: MRI Attending Dr: SolStaff Physician Abad Ordering Physician: Flakito Swanson M.D. Date of Service: 12/18/24 Procedure(s): MR hip LT wo con Accession Number(s): [id number] cc: Usman Alvarez M.D.; Flakito Swanson M.D. [place] [id number] Patient Name: KIMBERLY SILVERMAN MRN: [id number] date: 1990 Sex: F Assigned Patient Location: MRI Current Patient Location: MRI Accession/Order Number: [id number] Exam Date: 12/18/2024 08:00 Report Date: 12/18/2024 16:59 At the request of: NONRashelSTAFF PHYSICIAN Procedure: MR hip LT wo con EXAM: MR hip LT wo con, MR pelvis wo/w con HISTORY: Left Hip Pain COMPARISON: 08/04/2024 TECHNIQUE: MRI images obtained with multiple sequences. MRI of the left hip without contrast. Sequences obtained by standard department protocol. MRI of the pelvis with and without contrast was also obtained. FINDINGS: Mild degeneration at the L5-S1 disc space. No significant degeneration at the symphysis pubis or the sacroiliac joints. No acute fractures of the pelvic bones. Normal alignment of the left hip joint. No left labral detachment by this nonarthrographic technique. Left iliopsoas tendon is intact. Left rectus femoris origin is intact. Left abductor tendons are intact. Bilateral hamstring origins are intact. Abductor muscle bulk is preserved and symmetric. No inguinal or pelvic adenopathy. No acute abnormality of the visualized organs of the pelvis. No abnormal enhancement of the organs of the pelvis on the postcontrast images. Visualized portion of the right hip joint is unremarkable on the coronal images. MR/MR hip LT wo con IMPRESSION: 1. Normal alignment of the left hip joint. No significant degeneration of the left hip joint. 2. No acute fractures. 3. No acute abnormality of the visualized organs of the pelvis. 4. Other findings as described. Electronically authenticated by: MINISTERIO PAREDES Date: 12/18/2024 16:59 Dictated By: Ministerio Paredes M.D. Signed By: 12/18/24 1702 DD/ 6440 TD/TT: Fuse Cup Expander: [place] [address] Magnetic Resonance Report Signed Patient: TYREE SILVERMAN MR#: [id number] : 1990 Acct:[id number] Age/Sex: 34 / F ADM Date: 12/18/24 Loc: MRI Attending Dr: Abelardo Swanson M.D. Ordering Physician: Flakito Swanson M.D. Date of Service: 12/18/24 Procedure(s): MR hip LT wo con Accession Number(s): [id number] cc: Usman Alvarez M.D. ; Flakito Swanson M.D. [place] [address] Patient Name: KIMBERLY SILVERMAN MRN: [id number] date: 1990 Sex: F Assigned Patient Location: MRI Current Patient Location: MRI Accession/Order Numb er: [id number] Exam Date: 12/18/2024 08:00 Report Date: 12/18/2024 16:59 At the request of: NON-STAFF PHYSICIAN Procedure: MR hip LT wo con EXAM: MR hip LT wo c on, MR pelvis wo/w con HISTORY: Left Hip Pain COMPARISON: 08/04/2024 TECHNIQUE: MRI image s obtained with multiple sequences. MRI of the left hip without contrast. Sequences obtained by standard department protocol. MRI of the pelvis with and without contrast was also obtained. FINDINGS: Mild degeneration at the L5-S1 disc space. No significant degeneration at the symphysis pubis or the sacroiliac joints. No acute fractures o f the pelvic bones. Normal alignment of the left hip joint. No left labral detachment by this nonarthrographic technique. Left iliopsoas tendo n is intact. Left rectus femoris origin is intact. Left abductor tendons are intact. Bilateral hamstring origins are intact. Abductor muscle bulk is preserved and symmetric. No inguinal or pelvi c adenopathy. No acute abnormality of the visualized organs of the pelvis. No abnormal enhancem ent of the organs of the pelvis on the postcontrast images. Visualized portion o f the right hip joint is unremarkable on the coronal images. MR/MR hip LT wo con IMPRESSION: 1. Normal alignment of the left hip joint. No significant degeneration of the left hip joint. 2. No acute fractures. 3. No acute abnormal ity of the visualized organs of the pelvis. 4. Other findings as described. Electronically authenticated by: MINISTERIO PAREDES Date: 12/18/2024 16:59 Dictated By: Ministerio Paredes M.D. Signed By: 12/18/24 1702 DD/ 1659 TD/TT: Fuse Cup Expander: MR pelvis wo/w con Reviewed date:12/18/2024 08:59:24 PM Interpretation: Performing Lab: Notes/Report: Source Facility: [place] [address] Magnetic Resonance Report Signed Patient: KIMBERLY SILVERMAN MR#: [id number] : 1990 Acct:[id number] Age/Sex: 34 / F ADM Date: 12/18/24 Loc: MRI Attending Dr: Non-Staff Physician Pollo Ordering Physician: Flakito Swanson M.D. Date of Service: 12/18/24 Procedure(s): MR pelvis wo/w con Accession Number(s): [id number] cc: Usman Alvarez M.D.; Flakito Swanson M.D. [place] [address] Patient Name: KIMBERLY SILVERMAN MRN: [id number] date: 1990 Sex: F Assigned Patient Location: MRI Current Patient Location: MRI Accession/Order Number: [id number] Exam Date: 12/18/2024 08:00 Report Date: 12/18/2024 16:59 At the request of: NON-STAFF PHYSICIAN Procedure: MR pelvis wo/w con EXAM: MR hip LT wo con, MR pelvis wo/w con HISTORY: Left Hip Pain COMPARISON: 08/04/2024 TECHNIQUE: MRI images obtained with multiple sequences. MRI of the left hip without contrast. Sequences obtained by standard department protocol. MRI of the pelvis with and without contrast was also obtained. FINDINGS: Mild degeneration at the L5-S1 disc space. No significant degeneration at the symphysis pubis or the sacroiliac joints. No acute fractures of the pelvic bones. Normal alignment of the left hip joint. No left labral detachment by this nonarthrographic technique. Left iliopsoas tendon is intact. Left rectus femoris origin is intact. Left abductor tendons are intact. Bilateral hamstring origins are intact. Abductor muscle bulk is preserved and symmetric. No inguinal or pelvic adenopathy. No acute abnormality of the visualized organs of the pelvis. No abnormal enhancement of the organs of the pelvis on the postcontrast images. Visualized portion of the right hip joint is unremarkable on the coronal images. MR/MR pelvis wo/w con IMPRESSION: 1. Normal alignment of the left hip joint. No significant degeneration of the left hip joint. 2. No acute fractures. 3. No acute abnormality of the visualized organs of the pelvis. 4. Other findings as described. Electronically authenticated by: MINISTERIO PAREDES Date: 12/18/2024 16:59 Dictated By: Ministerio Paredes M.D. Signed By: 12/18/24 1703 DD/ 165 TD/TT: Fuse Cup Expander: [place] [address] Magnetic Resonance Report Signed Patient: TYREE SILVERMAN MR#: [id number] : 1990 Acct:[id number] Age/Sex: 34 / F ADM Date: 12/18/24 Loc: MRI Attending Dr: Abelardo Swanson M.D. Ordering Physician: Flakito Swanson M.D. Date of Service: 12/18/24 Procedure(s): MR pel vis wo/w con Accession Number(s): [id number] cc: Usman Alvarez M.D. ; Flakito Swanson M.D. [place] [id number] Patient Name: KIMBERLY SILVERMAN MRN: [id number] date: 1990 Sex: F Assigned Patient Location: MRI Current Patient Location: MRI Accession/Order Numb er: [id number] Exam Date: 12/18/2024 08:00 Report Date: 12/18/2024 16:59 At the request of: NON-STAFF PHYSICIAN Procedure: MR pelvis wo/w con EXAM: MR hip LT wo c on, MR pelvis wo/w con HISTORY: Left Hip Pain COMPARISON: 08/04/2024 TECHNIQUE: MRI image s obtained with multiple sequences. MRI of the left hip without contrast. Sequences obtained by standard department protocol. MRI of the pelvis with and without contrast was also obtained. FINDINGS: Mild degeneration at the L5-S1 disc space. No significant degeneration at the symphysis pubis or the sacroiliac joints. No acute fractures o f the pelvic bones. Normal alignment of the left hip joint. No left labral detachment by this nonarthrographic technique. Left iliopsoas tendo n is intact. Left rectus femoris origin is intact. Left abductor tendons are intact. Bilateral hamstring origins are intact. Abductor muscle bulk is preserved and symmetric. No inguinal or pelvi c adenopathy. No acute abnormality of the visualized organs of the pelvis. No abnormal enhancem ent of the organs of the pelvis on the postcontrast images. Visualized portion o f the right hip joint is unremarkable on the coronal images. MR/MR pelvis wo/w con IMPRESSION: 1. Normal alignment of the left hip joint. No significant degeneration of the left hip joint. 2. No acute fractures. 3. No acute abnormal ity of the visualized organs of the pelvis. 4. Other findings as described. Electronically authenticated by: MINISTERIO PAREDES Date: 12/18/2024 16:59 Dictated By: Ministerio Paredes M.D. Signed By: 12/18/24 1702 DD/ 1659 TD/TT: Fuse Cup Expander: US reyna IVC Reviewed date:05/23/2025 12:53:36 PM Interpretation: Performing Lab: Notes/Report: Source Facility: [place] [address] [place] [address] Ultrasound Report Signed Patient: KIMBERLY SILVERMAN MR#: [id number] : 1990 Acct:[id number] Age/Sex: 35 / F ADM Date: 05/23/25 Loc: US Attending Dr: Jani Bridges M.D. Ordering Physician: Jani Bridges M.D. Date of Service: 05/23/25 Procedure(s): US duplex IVC Accession Number(s): [id number] cc: Usman Alvarez M.D.; Jani Bridges M.D. [address] [address] Patient Name: KIMBERLY SILVERMAN MRN: [id number] date: 1990 Sex: F Assigned Patient Location: US Current Patient Location: US Accession/Order Number: [id number] Exam Date: 05/23/2025 10:35 Report Date: 05/23/2025 10:38 At the request of: JANI BRIDGES MD Procedure: US duplex IVC DUPLEX [...] Lay M.D. 05/23/2025 10:38 AM Dictation Location: [place] [address] Electronically authenticated by: [id number] Date: 05/23/2025 10:38 Dictated By: Gaby Lay M.D. Signed By: 05/23/25 1041 DD/ 1038 TD/TT: Fuse Cup Expander: The [address] [address] Ultrasound Report Signed Patient: TYREE SILVERMAN MR#: [id number] : 1990 Acct:[id number] Age/Sex: 35 / F ADM Date: 05/23/25 Loc: US Attending Dr: Abigail Bridges M.D. Ordering Physician: Jani Bridges M.D. Date of Service: 05/23/25 Procedure(s): US dup [place] IVC Accession Number(s): [id number] cc: Usman Alvarez M.D. ; Jani Bridges M.D. 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 Real-time ultrasound evaluation of the IVC was performed. The vessel is patent and caliber i s normal. The imaged common iliac arteries show asymmetric enlargeme nt of the left in comparison to the right where a stent is again noted. There i s demonstration of duplex and color Doppler blood flow at both imaged iliac veins. No occlusion is seen. There is no surrounding fluid. US/US duplex IVC IMPRESSION: LEFT ILIAC STENT. PATENT IVC AND ILIAC VEINS. Impression dictated by: Gaby Lay M.D. 05/23/2025 10:38 AM Dictation Location: [place] [address] Electronically authenticated by: [id number] Y Date: 05/23/2025 10:38 Dictated By: Gaby Lay M.D. Signed By: 05/23/25 1041 DD/ 1038 TD/TT: Fuse Cup Expander: FERRITIN (Not yet reviewed b y provider) Interpretation: Performing Lab: Notes/Report: [facility] , Ferritin 64.0 8.0-252.0 ng/mL Performing Lab: see note ML - [facility] LB PROF CHEM 8 (BAS METB) (Not yet reviewed by provider) Interpretation: Performing Lab: Notes/Report: [facility] , Sodium 135 136-145 mmol/L Potassium 3.6 3.5-5.1 mmol/L Chloride 103 98-107 mmol/L Carbon Dioxide 28.9 21.0-32.0 mmol/L Anion Gap 6.7 Glucose 87 74-106 mg/dL Blood Urea Nitrogen 12.0 7.0-18.0 mg/dL Creatinine 0.62 0.55-1.02 mg/dL Estimated GFR ( [place] >60 >=60 mL/min/1.73m 2 Estimated GFR (Non- Camila >60 >=60 mL/min/1.73m 2 BUN Creatinine Ratio 19.4 Calcium 8.8 8.5-10.1 mg/dL Performing Lab: see note ML - [facility] LB IRON AND TIBC (Not yet revie wed by provider) Interpretation: Performing Lab: Notes/Report: [facility] , Iron 52.0 50.0-170.0 ug/dL Total Iron Binding Capacity 226.0 250.0-450.0 ug/dL Percent Iron Saturation 23.0 Performing Lab: see note ML - [facility] LB CBC AUTO DIFF (Not yet revie wed by provider) Interpretation: Performing Lab: Notes/Report: [facility] , White Blood Count 7.1 4.0-11.0 10 3/uL Red Blood Count 4.36 4.20-5.40 10 6/uL Hemoglobin 14.3 12.0-16.0 g/dL Hematocrit 41.1 36.0-48.0 % Mean Corpuscular Volume 94.3 81.0-99.0 fL Mean Corpuscular Hemoglobin 32.8 26.7-34.0 pg Mean Corpuscular HGB Conc 34.8 29.9-35.2 g/dL Red Cell Distribution Width 11.5 11.0-15.0 % Platelet Count 193 150-450 10 3/uL Mean Platelet Volume 9.9 9.5-13.5 fL Neutrophils Percent Auto 52.2 43.0-75.0 % Lymphocytes Percent Auto 40.1 20.5-60.0 % Monocytes Percent Auto 5.1 1.7-12.0 % Eosinophils Percent Auto 2.0 0.9-7.0 % Basophils Percent Auto 0.3 0.2-2.0 % Immature Granulocytes Pct Auto 0.3 0.0-0.5 % Neutrophils Absolute Auto 3.7 1.4-6.5 10 3/uL Lymphocytes Absolute Auto 2.8 1.2-3.8 10 3/uL Monocytes Absolute Auto 0.4 0.3-0.8 10 3/uL Eosinophils Absolute Auto 0.1 0.0-0.7 10 3/uL Basophils Absolute Auto 0.0 0.0-0.1 10 3/uL Immature Granulocytes Abs Auto 0.02 0.00-0.03 10 3/uL Performing Lab: see note ML - [facility] LB Aerobic Culture Reviewed date:04/10/2025 03:49:18 PM Interpretation: Performing Lab: Notes/Report: [facility] , Aerobic Culture See Below For Report Aerobic Culture Organism: Staphylococcus aureus : O:STAAUR Isolated Organism: 2.1 Antibiotic Interpretation ONEIL Status Ciprofloxacin Ciprofloxacin S F Erythromycin Erythromycin S F Gentamicin Gentamicin S F Levofloxacin Levofloxacin S F Linezolid Linezolid S F Moxifloxacin Moxifloxacin S F Oxacillin Oxacillin S F Penicillin Penicillin R F Rifampin Rifampin S F Tetracycline Tetracycline S F Trimethoprim/Sulfametho xazole Trimethoprim/Sulfametho xazole S F Vancomycin Vancomycin S F Clindamycin Clindamycin S F Aerobic Culture *ABNORMAL* Aerobic Culture Organism: Staphylococcus aureus : O:STAAUR Isolated Organism: 2.1 Antibiotic Interpretation ONEIL Status Ciprofloxacin Ciprofloxacin S F Erythromycin Erythromycin S F Gentamicin Gentamicin S F Levofloxacin Levofloxacin S F Linezolid Linezolid S F Moxifloxacin Moxifloxacin S F Oxacillin Oxacillin S F Penicillin Penicillin R F Rifampin Rifampin S F Tetracycline Tetracycline S F Trimethoprim/Sulfametho xazole Trimethoprim/Sulfametho xazole S F Vancomycin Vancomycin S F Clindamycin Clindamycin S F Aerobic Culture Heavy growth Aerobic Culture Organism: Staphylococcus aureus : O:STAAUR Isolated Organism: 2.1 Antibiotic Interpretation ONEIL Status Ciprofloxacin Ciprofloxacin S F Erythromycin Erythromycin S F Gentamicin Gentamicin S F Levofloxacin Levofloxacin S F Linezolid Linezolid S F Moxifloxacin Moxifloxacin S F Oxacillin Oxacillin S F Penicillin Penicillin R F Rifampin Rifampin S F Tetracycline Tetracycline S F Trimethoprim/Sulfametho xazole Trimethoprim/Sulfametho xazole S F Vancomycin Vancomycin S F Clindamycin Clindamycin S F Aerobic Culture Aerobic Culture Organism: Staphylococcus aureus : O:STAAUR Isolated Organism: 2.1 Antibiotic Interpretation ONEIL Status Ciprofloxacin Ciprofloxacin S F Erythromycin Erythromycin S F Gentamicin Gentamicin S F Levofloxacin Levofloxacin S F Linezolid Linezolid S F Moxifloxacin Moxifloxacin S F Oxacillin Oxacillin S F Penicillin Penicillin R F Rifampin Rifampin S F Tetracycline Tetracycline S F Trimethoprim/Sulfametho xazole Trimethoprim/Sulfametho xazole S F Vancomycin Vancomycin S F Clindamycin Clindamycin S F Aerobic Culture Mixed skin ness Aerobic Culture Organism: Staphylococcus aureus : O:STAAUR Isolated Organism: 2.1 Antibiotic Interpretation ONEIL Status Ciprofloxacin Ciprofloxacin S F Erythromycin Erythromycin S F Gentamicin Gentamicin S F Levofloxacin Levofloxacin S F Linezolid Linezolid S F Moxifloxacin Moxifloxacin S F Oxacillin Oxacillin S F Penicillin Penicillin R F Rifampin Rifampin S F Tetracycline Tetracycline S F Trimethoprim/Sulfametho xazole Trimethoprim/Sulfametho xazole S F Vancomycin Vancomycin S F Clindamycin Clindamycin S F Aerobic Culture Light growth Aerobic Culture Organism: Staphylococcus aureus : O:STAAUR Isolated Organism: 2.1 Antibiotic Interpretation ONEIL Status Ciprofloxacin Ciprofloxacin S F Erythromycin Erythromycin S F Gentamicin Gentamicin S F Levofloxacin Levofloxacin S F Linezolid Linezolid S F Moxifloxacin Moxifloxacin S F Oxacillin Oxacillin S F Penicillin Penicillin R F Rifampin Rifampin S F Tetracycline Tetracycline S F Trimethoprim/Sulfametho xazole Trimethoprim/Sulfametho xazole S F Vancomycin Vancomycin S F Clindamycin Clindamycin S F Aerobic Culture Staphylococcus aureus Aerobic Culture Organism: Staphylococcus aureus : O:STAAUR Isolated Organism: 2.1 Antibiotic Interpretation ONEIL Status Ciprofloxacin Ciprofloxacin S F Erythromycin Erythromycin S F Gentamicin Gentamicin S F Levofloxacin Levofloxacin S F Linezolid Linezolid S F Moxifloxacin Moxifloxacin S F Oxacillin Oxacillin S F Penicillin Penicillin R F Rifampin Rifampin S F Tetracycline Tetracycline S F Trimethoprim/Sulfametho xazole Trimethoprim/Sulfametho xazole S F Vancomycin Vancomycin S F Clindamycin Clindamycin S F Aerobic Culture Organism: Staphylococcus aureus : Aerobic Culture Organism: Staphylococcus aureus : O:STAAUR Isolated Organism: 2.1 Antibiotic Interpretation ONEIL Status Ciprofloxacin Ciprofloxacin S F Erythromycin Erythromycin S F Gentamicin Gentamicin S F Levofloxacin Levofloxacin S F Linezolid Linezolid S F Moxifloxacin Moxifloxacin S F Oxacillin Oxacillin S F Penicillin Penicillin R F Rifampin Rifampin S F Tetracycline Tetracycline S F Trimethoprim/Sulfametho xazole Trimethoprim/Sulfametho xazole S F Vancomycin Vancomycin S F Clindamycin Clindamycin S F Aerobic Culture *ABNORMAL* Aerobic Culture Organism: Staphylococcus aureus : O:STAAUR Isolated Organism: 2.1 Antibiotic Interpretation ONEIL Status Ciprofloxacin Ciprofloxacin S F Erythromycin Erythromycin S F Gentamicin Gentamicin S F Levofloxacin Levofloxacin S F Linezolid Linezolid S F Moxifloxacin Moxifloxacin S F Oxacillin Oxacillin S F Penicillin Penicillin R F Rifampin Rifampin S F Tetracycline Tetracycline S F Trimethoprim/Sulfametho xazole Trimethoprim/Sulfametho xazole S F Vancomycin Vancomycin S F Clindamycin Clindamycin S F Aerobic Culture Based on susceptibil ity to oxacillin this isolate would be Aerobic Culture Organism: Staphylococcus aureus : O:STAAUR Isolated Organism: 2.1 Antibiotic Interpretation ONEIL Status Ciprofloxacin Ciprofloxacin S F Erythromycin Erythromycin S F Gentamicin Gentamicin S F Levofloxacin Levofloxacin S F Linezolid Linezolid S F Moxifloxacin Moxifloxacin S F Oxacillin Oxacillin S F Penicillin Penicillin R F Rifampin Rifampin S F Tetracycline Tetracycline S F Trimethoprim/Sulfametho xazole Trimethoprim/Sulfametho xazole S F Vancomycin Vancomycin S F Clindamycin Clindamycin S F Aerobic Culture susceptible to: Aerobic Culture Organism: Staphylococcus aureus : O:STAAUR Isolated Organism: 2.1 Antibiotic Interpretation ONEIL Status Ciprofloxacin Ciprofloxacin S F Erythromycin Erythromycin S F Gentamicin Gentamicin S F Levofloxacin Levofloxacin S F Linezolid Linezolid S F Moxifloxacin Moxifloxacin S F Oxacillin Oxacillin S F Penicillin Penicillin R F Rifampin Rifampin S F Tetracycline Tetracycline S F Trimethoprim/Sulfametho xazole Trimethoprim/Sulfametho xazole S F Vancomycin Vancomycin S F Clindamycin Clindamycin S F Aerobic Culture *Penicillinase-stabl e penicillins, such as: Aerobic Culture Organism: Staphylococcus aureus : O:STAAUR Isolated Organism: 2.1 Antibiotic Interpretation ONEIL Status Ciprofloxacin Ciprofloxacin S F Erythromycin Erythromycin S F Gentamicin Gentamicin S F Levofloxacin Levofloxacin S F Linezolid Linezolid S F Moxifloxacin Moxifloxacin S F Oxacillin Oxacillin S F Penicillin Penicillin R F Rifampin Rifampin S F Tetracycline Tetracycline S F Trimethoprim/Sulfametho xazole Trimethoprim/Sulfametho xazole S F Vancomycin Vancomycin S F Clindamycin Clindamycin S F Aerobic Culture Cloxacillin, Dicloxacillin, Nafcillin Aerobic Culture Organism: Staphylococcus aureus : O:STAAUR Isolated Organism: 2.1 Antibiotic Interpretation ONEIL Status Ciprofloxacin Ciprofloxacin S F Erythromycin Erythromycin S F Gentamicin Gentamicin S F Levofloxacin Levofloxacin S F Linezolid Linezolid S F Moxifloxacin Moxifloxacin S F Oxacillin Oxacillin S F Penicillin Penicillin R F Rifampin Rifampin S F Tetracycline Tetracycline S F Trimethoprim/Sulfametho xazole Trimethoprim/Sulfametho xazole S F Vancomycin Vancomycin S F Clindamycin Clindamycin S F Aerobic Culture *Beta-lactam combination agents, such as: Aerobic Culture Organism: Staphylococcus aureus : O:STAAUR Isolated Organism: 2.1 Antibiotic Interpretation ONEIL Status Ciprofloxacin Ciprofloxacin S F Erythromycin Erythromycin S F Gentamicin Gentamicin S F Levofloxacin Levofloxacin S F Linezolid Linezolid S F Moxifloxacin Moxifloxacin S F Oxacillin Oxacillin S F Penicillin Penicillin R F Rifampin Rifampin S F Tetracycline Tetracycline S F Trimethoprim/Sulfametho xazole Trimethoprim/Sulfametho xazole S F Vancomycin Vancomycin S F Clindamycin Clindamycin S F Aerobic Culture Amoxicillin-clavulan ic acid, Ampicillin-sulbactam, Aerobic Culture Organism: Staphylococcus aureus : O:STAAUR Isolated Organism: 2.1 Antibiotic Interpretation ONEIL Status Ciprofloxacin Ciprofloxacin S F Erythromycin Erythromycin S F Gentamicin Gentamicin S F Levofloxacin Levofloxacin S F Linezolid Linezolid S F Moxifloxacin Moxifloxacin S F Oxacillin Oxacillin S F Penicillin Penicillin R F Rifampin Rifampin S F Tetracycline Tetracycline S F Trimethoprim/Sulfametho xazole Trimethoprim/Sulfametho xazole S F Vancomycin Vancomycin S F Clindamycin Clindamycin S F Aerobic Culture Piperacillin-tazobactam Aerobic Culture Organism: Staphylococcus aureus : O:STAAUR Isolated Organism: 2.1 Antibiotic Interpretation ONEIL Status Ciprofloxacin Ciprofloxacin S F Erythromycin Erythromycin S F Gentamicin Gentamicin S F Levofloxacin Levofloxacin S F Linezolid Linezolid S F Moxifloxacin Moxifloxacin S F Oxacillin Oxacillin S F Penicillin Penicillin R F Rifampin Rifampin S F Tetracycline Tetracycline S F Trimethoprim/Sulfametho xazole Trimethoprim/Sulfametho xazole S F Vancomycin Vancomycin S F Clindamycin Clindamycin S F Aerobic Culture *Oral cephems, such as: Aerobic Culture Organism: Staphylococcus aureus : O:STAAUR Isolated Organism: 2.1 Antibiotic Interpretation ONEIL Status Ciprofloxacin Ciprofloxacin S F Erythromycin Erythromycin S F Gentamicin Gentamicin S F Levofloxacin Levofloxacin S F Linezolid Linezolid S F Moxifloxacin Moxifloxacin S F Oxacillin Oxacillin S F Penicillin Penicillin R F Rifampin Rifampin S F Tetracycline Tetracycline S F Trimethoprim/Sulfametho xazole Trimethoprim/Sulfametho xazole S F Vancomycin Vancomycin S F Clindamycin Clindamycin S F Aerobic Culture Cefaclor, Cefdinir, Cefpodoxime, Cefprozil, Cefuroxime, Aerobic Culture Organism: Staphylococcus aureus : O:STAAUR Isolated Organism: 2.1 Antibiotic Interpretation ONEIL Status Ciprofloxacin Ciprofloxacin S F Erythromycin Erythromycin S F Gentamicin Gentamicin S F Levofloxacin Levofloxacin S F Linezolid Linezolid S F Moxifloxacin Moxifloxacin S F Oxacillin Oxacillin S F Penicillin Penicillin R F Rifampin Rifampin S F Tetracycline Tetracycline S F Trimethoprim/Sulfametho xazole Trimethoprim/Sulfametho xazole S F Vancomycin Vancomycin S F Clindamycin Clindamycin S F Aerobic Culture Cephalexin, Loracarbef Aerobic Culture Organism: Staphylococcus aureus : O:STAAUR Isolated Organism: 2.1 Antibiotic Interpretation ONEIL Status Ciprofloxacin Ciprofloxacin S F Erythromycin Erythromycin S F Gentamicin Gentamicin S F Levofloxacin Levofloxacin S F Linezolid Linezolid S F Moxifloxacin Moxifloxacin S F Oxacillin Oxacillin S F Penicillin Penicillin R F Rifampin Rifampin S F Tetracycline Tetracycline S F Trimethoprim/Sulfametho xazole Trimethoprim/Sulfametho xazole S F Vancomycin Vancomycin S F Clindamycin Clindamycin S F Aerobic Culture *Parenteral cephems, such as: Aerobic Culture Organism: Staphylococcus aureus : O:STAAUR Isolated Organism: 2.1 Antibiotic Interpretation ONEIL Status Ciprofloxacin Ciprofloxacin S F Erythromycin Erythromycin S F Gentamicin Gentamicin S F Levofloxacin Levofloxacin S F Linezolid Linezolid S F Moxifloxacin Moxifloxacin S F Oxacillin Oxacillin S F Penicillin Penicillin R F Rifampin Rifampin S F Tetracycline Tetracycline S F Trimethoprim/Sulfametho xazole Trimethoprim/Sulfametho xazole S F Vancomycin Vancomycin S F Clindamycin Clindamycin S F Aerobic Culture Cefazolin, Cefepime, Cefotaxime, Cefotetan, Ceftaroline, Aerobic Culture Organism: Staphylococcus aureus : O:STAAUR Isolated Organism: 2.1 Antibiotic Interpretation ONEIL Status Ciprofloxacin Ciprofloxacin S F Erythromycin Erythromycin S F Gentamicin Gentamicin S F Levofloxacin Levofloxacin S F Linezolid Linezolid S F Moxifloxacin Moxifloxacin S F Oxacillin Oxacillin S F Penicillin Penicillin R F Rifampin Rifampin S F Tetracycline Tetracycline S F Trimethoprim/Sulfametho xazole Trimethoprim/Sulfametho xazole S F Vancomycin Vancomycin S F Clindamycin Clindamycin S F Aerobic Culture Ceftizoxime, Ceftriaxone, Cefuroxime Aerobic Culture Organism: Staphylococcus aureus : O:STAAUR Isolated Organism: 2.1 Antibiotic Interpretation ONEIL Status Ciprofloxacin Ciprofloxacin S F Erythromycin Erythromycin S F Gentamicin Gentamicin S F Levofloxacin Levofloxacin S F Linezolid Linezolid S F Moxifloxacin Moxifloxacin S F Oxacillin Oxacillin S F Penicillin Penicillin R F Rifampin Rifampin S F Tetracycline Tetracycline S F Trimethoprim/Sulfametho xazole Trimethoprim/Sulfametho xazole S F Vancomycin Vancomycin S F Clindamycin Clindamycin S F Aerobic Culture *Carbapenems, such as: Aerobic Culture Organism: Staphylococcus aureus : O:STAAUR Isolated Organism: 2.1 Antibiotic Interpretation ONEIL Status Ciprofloxacin Ciprofloxacin S F Erythromycin Erythromycin S F Gentamicin Gentamicin S F Levofloxacin Levofloxacin S F Linezolid Linezolid S F Moxifloxacin Moxifloxacin S F Oxacillin Oxacillin S F Penicillin Penicillin R F Rifampin Rifampin S F Tetracycline Tetracycline S F Trimethoprim/Sulfametho xazole Trimethoprim/Sulfametho xazole S F Vancomycin Vancomycin S F Clindamycin Clindamycin S F Aerobic Culture Doripenem, Ertapenem , Imipenem, Meropenem Aerobic Culture Organism: Staphylococcus aureus : O:STAAUR Isolated Organism: 2.1 Antibiotic Interpretation ONEIL Status Ciprofloxacin Ciprofloxacin S F Erythromycin Erythromycin S F Gentamicin Gentamicin S F Levofloxacin Levofloxacin S F Linezolid Linezolid S F Moxifloxacin Moxifloxacin S F Oxacillin Oxacillin S F Penicillin Penicillin R F Rifampin Rifampin S F Tetracycline Tetracycline S F Trimethoprim/Sulfametho xazole Trimethoprim/Sulfametho xazole S F Vancomycin Vancomycin S F Clindamycin Clindamycin S F Aerobic Culture Heavy growth Aerobic Culture Organism: Staphylococcus aureus : O:STAAUR Isolated Organism: 2.1 Antibiotic Interpretation ONEIL Status Ciprofloxacin Ciprofloxacin S F Erythromycin Erythromycin S F Gentamicin Gentamicin S F Levofloxacin Levofloxacin S F Linezolid Linezolid S F Moxifloxacin Moxifloxacin S F Oxacillin Oxacillin S F Penicillin Penicillin R F Rifampin Rifampin S F Tetracycline Tetracycline S F Trimethoprim/Sulfametho xazole Trimethoprim/Sulfametho xazole S F Vancomycin Vancomycin S F Clindamycin Clindamycin S F Aerobic Culture Aerobic Culture Organism: Staphylococcus aureus : O:STAAUR Isolated Organism: 2.1 Antibiotic Interpretation ONEIL Status Ciprofloxacin Ciprofloxacin S F Erythromycin Erythromycin S F Gentamicin Gentamicin S F Levofloxacin Levofloxacin S F Linezolid Linezolid S F Moxifloxacin Moxifloxacin S F Oxacillin Oxacillin S F Penicillin Penicillin R F Rifampin Rifampin S F Tetracycline Tetracycline S F Trimethoprim/Sulfametho xazole Trimethoprim/Sulfametho xazole S F Vancomycin Vancomycin S F Clindamycin Clindamycin S F Aerobic Culture Mixed skin ness Aerobic Culture Organism: Staphylococcus aureus : O:STAAUR Isolated Organism: 2.1 Antibiotic Interpretation ONEIL Status Ciprofloxacin Ciprofloxacin S F Erythromycin Erythromycin S F Gentamicin Gentamicin S F Levofloxacin Levofloxacin S F Linezolid Linezolid S F Moxifloxacin Moxifloxacin S F Oxacillin Oxacillin S F Penicillin Penicillin R F Rifampin Rifampin S F Tetracycline Tetracycline S F Trimethoprim/Sulfametho xazole Trimethoprim/Sulfametho xazole S F Vancomycin Vancomycin S F Clindamycin Clindamycin S F Aerobic Culture Light growth Aerobic Culture Organism: Staphylococcus aureus : O:STAAUR Isolated Organism: 2.1 Antibiotic Interpretation ONEIL Status Ciprofloxacin Ciprofloxacin S F Erythromycin Erythromycin S F Gentamicin Gentamicin S F Levofloxacin Levofloxacin S F Linezolid Linezolid S F Moxifloxacin Moxifloxacin S F Oxacillin Oxacillin S F Penicillin Penicillin R F Rifampin Rifampin S F Tetracycline Tetracycline S F Trimethoprim/Sulfametho xazole Trimethoprim/Sulfametho xazole S F Vancomycin Vancomycin S F Clindamycin Clindamycin S F Aerobic Culture See Below For Report Aerobic Culture Organism: Staphylococcus aureus : O:STAAUR Isolated Organism: 2.1 Antibiotic Interpretation ONEIL Status Ciprofloxacin Ciprofloxacin S F Erythromycin Erythromycin S F Gentamicin Gentamicin S F Levofloxacin Levofloxacin S F Linezolid Linezolid S F Moxifloxacin Moxifloxacin S F Oxacillin Oxacillin S F Penicillin Penicillin R F Rifampin Rifampin S F Tetracycline Tetracycline S F Trimethoprim/Sulfametho xazole Trimethoprim/Sulfametho xazole S F Vancomycin Vancomycin S F Clindamycin Clindamycin S F Aerobic Culture Performed at: [facility] Aerobic Culture Organism: Staphylococcus aureus : O:STAAUR Isolated Organism: 2.1 Antibiotic Interpretation ONEIL Status Ciprofloxacin Ciprofloxacin S F Erythromycin Erythromycin S F Gentamicin Gentamicin S F Levofloxacin Levofloxacin S F Linezolid Linezolid S F Moxifloxacin Moxifloxacin S F Oxacillin Oxacillin S F Penicillin Penicillin R F Rifampin Rifampin S F Tetracycline Tetracycline S F Trimethoprim/Sulfametho xazole Trimethoprim/Sulfametho xazole S F Vancomycin Vancomycin S F Clindamycin Clindamycin S F Aerobic Culture [id number], [place] [id number] Aerobic Culture Organism: Staphylococcus aureus : O:STAAUR Isolated Organism: 2.1 Antibiotic Interpretation ONEIL Status Ciprofloxacin Ciprofloxacin S F Erythromycin Erythromycin S F Gentamicin Gentamicin S F Levofloxacin Levofloxacin S F Linezolid Linezolid S F Moxifloxacin Moxifloxacin S F Oxacillin Oxacillin S F Penicillin Penicillin R F Rifampin Rifampin S F Tetracycline Tetracycline S F Trimethoprim/Sulfametho xazole Trimethoprim/Sulfametho xazole S F Vancomycin Vancomycin S F Clindamycin Clindamycin S F Aerobic Culture Shipping Room Supervisor: Kristel Pardo PhD, Phone: [phone] Aerobic Culture Organism: Staphylococcus aureus : O:STAAUR Isolated Organism: 2.1 Antibiotic Interpretation ONEIL Status Ciprofloxacin Ciprofloxacin S F Erythromycin Erythromycin S F Gentamicin Gentamicin S F Levofloxacin Levofloxacin S F Linezolid Linezolid S F Moxifloxacin Moxifloxacin S F Oxacillin Oxacillin S F Penicillin Penicillin R F Rifampin Rifampin S F Tetracycline Tetracycline S F Trimethoprim/Sulfametho xazole Trimethoprim/Sulfametho xazole S F Vancomycin Vancomycin S F Clindamycin Clindamycin S F Aerobic Culture See Below For Report Aerobic Culture Organism: Staphylococcus aureus : O:STAAUR Isolated Organism: 2.1 Antibiotic Interpretation ONEIL Status Ciprofloxacin Ciprofloxacin S F Erythromycin Erythromycin S F Gentamicin Gentamicin S F Levofloxacin Levofloxacin S F Linezolid Linezolid S F Moxifloxacin Moxifloxacin S F Oxacillin Oxacillin S F Penicillin Penicillin R F Rifampin Rifampin S F Tetracycline Tetracycline S F Trimethoprim/Sulfametho xazole Trimethoprim/Sulfametho xazole S F Vancomycin Vancomycin S F Clindamycin Clindamycin S F Aerobic Culture See Below For Report Aerobic Culture Organism: Staphylococcus aureus : O:STAAUR Isolated Organism: 2.1 Antibiotic Interpretation ONEIL Status Ciprofloxacin Ciprofloxacin S F Erythromycin Erythromycin S F Gentamicin Gentamicin S F Levofloxacin Levofloxacin S F Linezolid Linezolid S F Moxifloxacin Moxifloxacin S F Oxacillin Oxacillin S F Penicillin Penicillin R F Rifampin Rifampin S F Tetracycline Tetracycline S F Trimethoprim/Sulfametho xazole Trimethoprim/Sulfametho xazole S F Vancomycin Vancomycin S F Clindamycin Clindamycin S F Aerobic Culture See Below For Report Aerobic Culture Organism: Staphylococcus aureus : O:STAAUR Isolated Organism: 2.1 Antibiotic Interpretation ONEIL Status Ciprofloxacin Ciprofloxacin S F Erythromycin Erythromycin S F Gentamicin Gentamicin S F Levofloxacin Levofloxacin S F Linezolid Linezolid S F Moxifloxacin Moxifloxacin S F Oxacillin Oxacillin S F Penicillin Penicillin R F Rifampin Rifampin S F Tetracycline Tetracycline S F Trimethoprim/Sulfametho xazole Trimethoprim/Sulfametho xazole S F Vancomycin Vancomycin S F Clindamycin Clindamycin S F Aerobic Culture See Below For Report Aerobic Culture Organism: Staphylococcus aureus : O:STAAUR Isolated Organism: 2.1 Antibiotic Interpretation ONEIL Status Ciprofloxacin Ciprofloxacin S F Erythromycin Erythromycin S F Gentamicin Gentamicin S F Levofloxacin Levofloxacin S F Linezolid Linezolid S F Moxifloxacin Moxifloxacin S F Oxacillin Oxacillin S F Penicillin Penicillin R F Rifampin Rifampin S F Tetracycline Tetracycline S F Trimethoprim/Sulfametho xazole Trimethoprim/Sulfametho xazole S F Vancomycin Vancomycin S F Clindamycin Clindamycin S F Aerobic Culture See Below For Report Aerobic Culture Organism: Staphylococcus aureus : O:STAAUR Isolated Organism: 2.1 Antibiotic Interpretation ONEIL Status Ciprofloxacin Ciprofloxacin S F Erythromycin Erythromycin S F Gentamicin Gentamicin S F Levofloxacin Levofloxacin S F Linezolid Linezolid S F Moxifloxacin Moxifloxacin S F Oxacillin Oxacillin S F Penicillin Penicillin R F Rifampin Rifampin S F Tetracycline Tetracycline S F Trimethoprim/Sulfametho xazole Trimethoprim/Sulfametho xazole S F Vancomycin Vancomycin S F Clindamycin Clindamycin S F Aerobic Culture See Below For Report Aerobic Culture Organism: Staphylococcus aureus : O:STAAUR Isolated Organism: 2.1 Antibiotic Interpretation ONEIL Status Ciprofloxacin Ciprofloxacin S F Erythromycin Erythromycin S F Gentamicin Gentamicin S F Levofloxacin Levofloxacin S F Linezolid Linezolid S F Moxifloxacin Moxifloxacin S F Oxacillin Oxacillin S F Penicillin Penicillin R F Rifampin Rifampin S F Tetracycline Tetracycline S F Trimethoprim/Sulfametho xazole Trimethoprim/Sulfametho xazole S F Vancomycin Vancomycin S F Clindamycin Clindamycin S F Aerobic Culture See Below For Report Aerobic Culture Organism: Staphylococcus aureus : O:STAAUR Isolated Organism: 2.1 Antibiotic Interpretation ONEIL Status Ciprofloxacin Ciprofloxacin S F Erythromycin Erythromycin S F Gentamicin Gentamicin S F Levofloxacin Levofloxacin S F Linezolid Linezolid S F Moxifloxacin Moxifloxacin S F Oxacillin Oxacillin S F Penicillin Penicillin R F Rifampin Rifampin S F Tetracycline Tetracycline S F Trimethoprim/Sulfametho xazole Trimethoprim/Sulfametho xazole S F Vancomycin Vancomycin S F Clindamycin Clindamycin S F Aerobic Culture See Below For Report Aerobic Culture Organism: Staphylococcus aureus : O:STAAUR Isolated Organism: 2.1 Antibiotic Interpretation ONEIL Status Ciprofloxacin Ciprofloxacin S F Erythromycin Erythromycin S F Gentamicin Gentamicin S F Levofloxacin Levofloxacin S F Linezolid Linezolid S F Moxifloxacin Moxifloxacin S F Oxacillin Oxacillin S F Penicillin Penicillin R F Rifampin Rifampin S F Tetracycline Tetracycline S F Trimethoprim/Sulfametho xazole Trimethoprim/Sulfametho xazole S F Vancomycin Vancomycin S F Clindamycin Clindamycin S F Aerobic Culture See Below For Report Aerobic Culture Organism: Staphylococcus aureus : O:STAAUR Isolated Organism: 2.1 Antibiotic Interpretation ONEIL Status Ciprofloxacin Ciprofloxacin S F Erythromycin Erythromycin S F Gentamicin Gentamicin S F Levofloxacin Levofloxacin S F Linezolid Linezolid S F Moxifloxacin Moxifloxacin S F Oxacillin Oxacillin S F Penicillin Penicillin R F Rifampin Rifampin S F Tetracycline Tetracycline S F Trimethoprim/Sulfametho xazole Trimethoprim/Sulfametho xazole S F Vancomycin Vancomycin S F Clindamycin Clindamycin S F Aerobic Culture See Below For Report Aerobic Culture Organism: Staphylococcus aureus : O:STAAUR Isolated Organism: 2.1 Antibiotic Interpretation OENIL Status Ciprofloxacin Ciprofloxacin S F Erythromycin Erythromycin S F Gentamicin Gentamicin S F Levofloxacin Levofloxacin S F Linezolid Linezolid S F Moxifloxacin Moxifloxacin S F Oxacillin Oxacillin S F Penicillin Penicillin R F Rifampin Rifampin S F Tetracycline Tetracycline S F Trimethoprim/Sulfametho xazole Trimethoprim/Sulfametho xazole S F Vancomycin Vancomycin S F Clindamycin Clindamycin S F Aerobic Culture See Below For Report Aerobic Culture Organism: Staphylococcus aureus : O:STAAUR Isolated Organism: 2.1 Antibiotic Interpretation ONEIL Status Ciprofloxacin Ciprofloxacin S F Erythromycin Erythromycin S F Gentamicin Gentamicin S F Levofloxacin Levofloxacin S F Linezolid Linezolid S F Moxifloxacin Moxifloxacin S F Oxacillin Oxacillin S F Penicillin Penicillin R F Rifampin Rifampin S F Tetracycline Tetracycline S F Trimethoprim/Sulfametho xazole Trimethoprim/Sulfametho xazole S F Vancomycin Vancomycin S F Clindamycin Clindamycin S F Aerobic Culture See Below For Report Aerobic Culture Organism: Staphylococcus aureus : O:STAAUR Isolated Organism: 2.1 Antibiotic Interpretation ONEIL Status Ciprofloxacin Ciprofloxacin S F Erythromycin Erythromycin S F Gentamicin Gentamicin S F Levofloxacin Levofloxacin S F Linezolid Linezolid S F Moxifloxacin Moxifloxacin S F Oxacillin Oxacillin S F Penicillin Penicillin R F Rifampin Rifampin S F Tetracycline Tetracycline S F Trimethoprim/Sulfametho xazole Trimethoprim/Sulfametho xazole S F Vancomycin Vancomycin S F Clindamycin Clindamycin S F Aerobic Culture See Below For Report Aerobic Culture Organism: Staphylococcus aureus : O:STAAUR Isolated Organism: 2.1 Antibiotic Interpretation ONEIL Status Ciprofloxacin Ciprofloxacin S F Erythromycin Erythromycin S F Gentamicin Gentamicin S F Levofloxacin Levofloxacin S F Linezolid Linezolid S F Moxifloxacin Moxifloxacin S F Oxacillin Oxacillin S F Penicillin Penicillin R F Rifampin Rifampin S F Tetracycline Tetracycline S F Trimethoprim/Sulfametho xazole Trimethoprim/Sulfametho xazole S F Vancomycin Vancomycin S F Clindamycin Clindamycin S F Aerobic Culture See Below For Report Aerobic Culture Organism: Staphylococcus aureus : O:STAAUR Isolated Organism: 2.1 Antibiotic Interpretation ONEIL Status Ciprofloxacin Ciprofloxacin S F Erythromycin Erythromycin S F Gentamicin Gentamicin S F Levofloxacin Levofloxacin S F Linezolid Linezolid S F Moxifloxacin Moxifloxacin S F Oxacillin Oxacillin S F Penicillin Penicillin R F Rifampin Rifampin S F Tetracycline Tetracycline S F Trimethoprim/Sulfametho xazole Trimethoprim/Sulfametho xazole S F Vancomycin Vancomycin S F Clindamycin Clindamycin S F Performing Lab: see note LC - [facility] LB SEE REPORT - Supervisor Weaving Id information not found for OBX-specific morning show producer legend Anaerobic Culture Reviewed date:04/10/2025 03:49:18 PM Interpretation: Performing Lab: Notes/Report: [facility] , Anaerobic Culture See Below For Report Anaerobic Culture Anaerobic Culture No anaerobic growth in 72 hours. Anaerobic Culture Performing Lab: see note LC - [facility] LB Aerobic Culture Reviewed date:04/07/2025 11:55:46 AM Interpretation: Performing Lab: Notes/Report: [facility] , Aerobic Culture See Below For Report Aerobic Culture Organism: Staphylococcus aureus : O:STAAUR Isolated Organism: 1.1 Antibiotic Interpretation ONEIL Status Aerobic Culture *ABNORMAL* Aerobic Culture Organism: Staphylococcus aureus : O:STAAUR Isolated Organism: 1.1 Antibiotic Interpretation ONEIL Status Aerobic Culture Heavy growth Aerobic Culture Organism: Staphylococcus aureus : O:STAAUR Isolated Organism: 1.1 Antibiotic Interpretation ONEIL Status Aerobic Culture Aerobic Culture Organism: Staphylococcus aureus : O:STAAUR Isolated Organism: 1.1 Antibiotic Interpretation ONEIL Status Aerobic Culture Mixed skin ness Aerobic Culture Organism: Staphylococcus aureus : O:STAAUR Isolated Organism: 1.1 Antibiotic Interpretation ONEIL Status Aerobic Culture Light growth Aerobic Culture Organism: Staphylococcus aureus : O:STAAUR Isolated Organism: 1.1 Antibiotic Interpretation ONEIL Status Aerobic Culture Staphylococcus aureus Aerobic Culture Organism: Staphylococcus aureus : O:STAAUR Isolated Organism: 1.1 Antibiotic Interpretation ONEIL Status Aerobic Culture Organism: Staphylococcus aureus : Aerobic Culture Organism: Staphylococcus aureus : O:STAAUR Isolated Organism: 1.1 Antibiotic Interpretation ONEIL Status Aerobic Culture *ABNORMAL* Aerobic Culture Organism: Staphylococcus aureus : O:STAAUR Isolated Organism: 1.1 Antibiotic Interpretation ONEIL Status Aerobic Culture Based on susceptibil ity to oxacillin this isolate would be Aerobic Culture Organism: Staphylococcus aureus : O:STAAUR Isolated Organism: 1.1 Antibiotic Interpretation ONEIL Status Aerobic Culture susceptible to: Aerobic Culture Organism: Staphylococcus aureus : O:STAAUR Isolated Organism: 1.1 Antibiotic Interpretation ONEIL Status Aerobic Culture *Penicillinase-stabl e penicillins, such as: Aerobic Culture Organism: Staphylococcus aureus : O:STAAUR Isolated Organism: 1.1 Antibiotic Interpretation ONEIL Status Aerobic Culture Cloxacillin, Dicloxacillin, Nafcillin Aerobic Culture Organism: Staphylococcus aureus : O:STAAUR Isolated Organism: 1.1 Antibiotic Interpretation ONEIL Status Aerobic Culture *Beta-lactam combination agents, such as: Aerobic Culture Organism: Staphylococcus aureus : O:STAAUR Isolated Organism: 1.1 Antibiotic Interpretation ONEIL Status Aerobic Culture Amoxicillin-clavulan ic acid, Ampicillin-sulbactam, Aerobic Culture Organism: Staphylococcus aureus : O:STAAUR Isolated Organism: 1.1 Antibiotic Interpretation ONEIL Status Aerobic Culture Piperacillin-tazobactam Aerobic Culture Organism: Staphylococcus aureus : O:STAAUR Isolated Organism: 1.1 Antibiotic Interpretation ONEIL Status Aerobic Culture *Oral cephems, such as: Aerobic Culture Organism: Staphylococcus aureus : O:STAAUR Isolated Organism: 1.1 Antibiotic Interpretation ONEIL Status Aerobic Culture Cefaclor, Cefdinir, Cefpodoxime, Cefprozil, Cefuroxime, Aerobic Culture Organism: Staphylococcus aureus : O:STAAUR Isolated Organism: 1.1 Antibiotic Interpretation ONEIL Status Aerobic Culture Cephalexin, Loracarbef Aerobic Culture Organism: Staphylococcus aureus : O:STAAUR Isolated Organism: 1.1 Antibiotic Interpretation ONEIL Status Aerobic Culture *Parenteral cephems, such as: Aerobic Culture Organism: Staphylococcus aureus : O:STAAUR Isolated Organism: 1.1 Antibiotic Interpretation ONEIL Status Aerobic Culture Cefazolin, Cefepime, Cefotaxime, Cefotetan, Ceftaroline, Aerobic Culture Organism: Staphylococcus aureus : O:STAAUR Isolated Organism: 1.1 Antibiotic Interpretation ONEIL Status Aerobic Culture Ceftizoxime, Ceftriaxone, Cefuroxime Aerobic Culture Organism: Staphylococcus aureus : O:STAAUR Isolated Organism: 1.1 Antibiotic Interpretation ONEIL Status Aerobic Culture *Carbapenems, such as: Aerobic Culture Organism: Staphylococcus aureus : O:STAAUR Isolated Organism: 1.1 Antibiotic Interpretation ONEIL Status Aerobic Culture Doripenem, Ertapenem , Imipenem, Meropenem Aerobic Culture Organism: Staphylococcus aureus : O:STAAUR Isolated Organism: 1.1 Antibiotic Interpretation ONEIL Status Aerobic Culture Heavy growth Aerobic Culture Organism: Staphylococcus aureus : O:STAAUR Isolated Organism: 1.1 Antibiotic Interpretation ONEIL Status Aerobic Culture Aerobic Culture Organism: Staphylococcus aureus : O:STAAUR Isolated Organism: 1.1 Antibiotic Interpretation ONEIL Status Aerobic Culture Mixed skin ness Aerobic Culture Organism: Staphylococcus aureus : O:STAAUR Isolated Organism: 1.1 Antibiotic Interpretation ONEIL Status Aerobic Culture Light growth Aerobic Culture Organism: Staphylococcus aureus : O:STAAUR Isolated Organism: 1.1 Antibiotic Interpretation ONEIL Status Aerobic Culture See Below For Report Aerobic Culture Organism: Staphylococcus aureus : O:STAAUR Isolated Organism: 1.1 Antibiotic Interpretation ONEIL Status Aerobic Culture Performed at: [facility] Aerobic Culture Organism: Staphylococcus aureus : O:STAAUR Isolated Organism: 1.1 Antibiotic Interpretation ONEIL Status Aerobic Culture [address], [place] [id number] Aerobic Culture Organism: Staphylococcus aureus : O:STAAUR Isolated Organism: 1.1 Antibiotic Interpretation ONEIL Status Aerobic Culture Shipping Room Supervisor: Kristel Pardo PhD, Phone: [phone] Aerobic Culture Organism: Staphylococcus aureus : O:STAAUR Isolated Organism: 1.1 Antibiotic Interpretation ONEIL Status Aerobic Culture See Below For Report Aerobic Culture Organism: Staphylococcus aureus : O:STAAUR Isolated Organism: 1.1 Antibiotic Interpretation ONEIL Status Aerobic Culture Ciprofloxacin S F Aerobic Culture Organism: Staphylococcus aureus : O:STAAUR Isolated Organism: 1.1 Antibiotic Interpretation ONEIL Status Aerobic Culture Erythromycin S F Aerobic Culture Organism: Staphylococcus aureus : O:STAAUR Isolated Organism: 1.1 Antibiotic Interpretation ONEIL Status Aerobic Culture Gentamicin S F Aerobic Culture Organism: Staphylococcus aureus : O:STAAUR Isolated Organism: 1.1 Antibiotic Interpretation ONEIL Status Aerobic Culture Levofloxacin S F Aerobic Culture Organism: Staphylococcus aureus : O:STAAUR Isolated Organism: 1.1 Antibiotic Interpretation ONEIL Status Aerobic Culture Linezolid S F Aerobic Culture Organism: Staphylococcus aureus : O:STAAUR Isolated Organism: 1.1 Antibiotic Interpretation ONEIL Status Aerobic Culture Moxifloxacin S F Aerobic Culture Organism: Staphylococcus aureus : O:STAAUR Isolated Organism: 1.1 Antibiotic Interpretation ONEIL Status Aerobic Culture Oxacillin S F Aerobic Culture Organism: Staphylococcus aureus : O:STAAUR Isolated Organism: 1.1 Antibiotic Interpretation ONEIL Status Aerobic Culture Penicillin R F Aerobic Culture Organism: Staphylococcus aureus : O:STAAUR Isolated Organism: 1.1 Antibiotic Interpretation ONEIL Status Aerobic Culture Rifampin S F Aerobic Culture Organism: Staphylococcus aureus : O:STAAUR Isolated Organism: 1.1 Antibiotic Interpretation ONEIL Status Aerobic Culture Tetracycline S F Aerobic Culture Organism: Staphylococcus aureus : O:STAAUR Isolated Organism: 1.1 Antibiotic Interpretation ONEIL Status Aerobic Culture Trimethoprim/Sulfame tho xazole S F Aerobic Culture Organism: Staphylococcus aureus : O:STAAUR Isolated Organism: 1.1 Antibiotic Interpretation ONEIL Status Aerobic Culture Vancomycin S F Aerobic Culture Organism: Staphylococcus aureus : O:STAAUR Isolated Organism: 1.1 Antibiotic Interpretation ONEIL Status Aerobic Culture Clindamycin S F Aerobic Culture Organism: Staphylococcus aureus : O:STAAUR Isolated Organism: 1.1 Antibiotic Interpretation ONEIL Status Performing Lab: see note LC - [facility] LB SEE REPORT - Supervisor Weaving Id information not found for 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 Ordering Physician: Usman Alvarez M.D. Date of Service: 10/20/24 Procedure(s): US renal bladder Accession Number(s): [id number] cc: Usman Alvarez M.D. [place] [address] Patient Name: KIMBERLY SILVERMAN MRN: [id number] date: 1990 Sex: F Assigned Patient Location: US Current Patient Location: LAB Accession/Order Number: [id number] Exam Date: 10/20/2024 08:30 Report Date: 10/20/2024 13:38 At the request of: USMAN ALVAREZ Procedure: US renal bladder EXAMINATION: US renal bladder HISTORY: Elevated Anti Streptolysin O Antibodies R76.8 COMPARISON: No relevant comparison available. TECHNIQUE: Ultrasound examination was performed of the kidneys and urinary bladder. FINDINGS: RIGHT KIDNEY: No evidence of pelvocaliectasis, mass, or calculi. Normal parenchymal echogenicity. Color Doppler demonstrates blood flow within the kidney. Kidney: 9.7 x 3.8 x 4.5 cm LEFT KIDNEY: No evidence of pelvocaliectasis, mass, or calculi. Normal parenchymal echogenicity. Color Doppler demonstrates blood flow within the kidney. Kidney: 9.9 x 3.6 x 4.2 cm BLADDER: No visible wall thickening, mass, or calculi. Post void residual: 3 mL URETERAL JETS: Visualized bilaterally. US/US renal bladder IMPRESSION: 1. Normal ultrasound appearance of the kidneys and urinary bladder. Electronically authenticated by: JUAN FRANCISCO SUAREZ Date: 10/20/2024 13:38 Dictated By: Juan Francisco Suarez M.D. Signed By: 10/20/24 1341 DD/ 1338 TD/TT: Fuse Cup Expander: [place] [address] Ultrasound Report Signed Patient: TYREE SILVERMAN MR#: [id number] : 1990 Acct:[id number] Age/Sex: 34 / F ADM Date: 10/20/24 Loc: Attending Dr: Cole Alvarez M.D. Ordering Physician: Usman Alvarez M.D. Date of Service: 10/20/24 Procedure(s): US stephanei al bladder Accession Number(s): [id number] cc: Usman Alvarez M.D. [place] [id number] Patient Name: KIMBERLY SILVERMAN MRN: [id number] date: 1990 Sex: F Assigned Patient Location: US Current Patient Location: LAB Accession/Order Numb er: [id number] Exam Date: 08:30 Report Date: 10/20/2024 13:38 At the request of: USMAN ALVAREZ Procedure: US renal bladder EXAMINATION: US alec l bladder HISTORY: Elevated An ti Streptolysin O Antibodies R76.8 COMPARISON: No relev ant comparison available. TECHNIQUE: Ultrasoun d examination was performed of the kidneys and urinary bladder. FINDINGS: RIGHT KIDNEY: No evidence of pelvocaliectasis, mass, or calculi. Normal parenchymal echogenicity. Color Doppler demonstrates blood flow within the kidney. Kidney: 9.7 x 3.8 x 4.5 cm LEFT KIDNEY: No evidence of pelvocaliectasis, mass, or calculi. Normal parenchymal echogenicity. Color Doppler demonstrates blood flow within the kidney. Kidney: 9.9 x 3.6 x 4.2 cm BLADDER: No visible wall thickening, mass, or calculi. Post void residual: 3 mL URETERAL JETS: Visualized bilaterally. US/US renal bladder IMPRESSION: 1. Normal ultrasound appearance of the kidneys and urinary bladder. Electronically authenticated by: JUAN FRANCISCO SUAREZ Date: 10/20/2024 13:38 Dictated By: Juan Francisco Suarez M.D. Signed By: 10/20/24 1341 DD/ 1338 TD/TT: Fuse Cup Expander: [place] echo doppler complete Reviewed date:10/22/2024 06:28:17 PM Interpretation: Performing Lab: Notes/Report: Source Facility: [place] [address] Cardiology Report Signed Patient: KIMBERLY SILVERMAN MR#: [id number] : 1990 Acct:[id number] Age/Sex: 34 / F ADM Date: 10/20/24 Loc: US Attending Dr: Usman Alvarez M.D. Ordering Physician: Usman Alvarez M.D. Date of Service: 10/20/24 Procedure(s): CA echo doppler complete Accession Number(s): [id number] cc: Usman Alvarez M.D. Patient Name: KIMBERLY SILVERMAN MR#: [id number] : 1990 Exam Date: 10/20/2024 Ordering Doctor: DR Usman Alvarez . ECHOCARDIOGRAM REPORT PROCEDURE: CA ECHO DOPPLER COMPLETE INDICATIONS: Elevated antistreptolysin O antibodies COMPARISON: None. DESCRIPTION: COMPLETE ECHOCARDIOGRAM Real-time transthoracic echocardiography with 2D, M-mode, spectral and color flow Doppler performed. QUALITY: Technical quality was good. LEFT VENTRICLE: Normal chamber size. Normal left ventricle box thickness LV EF: Normal left ventricular ejection fraction, 60%, no regional wall motion abnormalities DIASTOLIC: Normal diastolic function. ATRIAL SEPTUM: Visually appears intact. LEFT ATRIUM: Normal chamber size. RIGHT ATRIUM: Normal chamber size. RIGHT VENTRICLE: Normal chamber size. Normal right ventricular systolic function. TRICUSPID VALVE: Normal mobility and thickness. No stenosis with mild regurgitation. No evidence of pulmonary hypertension.RVSP 21 mmHg MITRAL VALVE: Normal mobility and thickness. No evidence of mitral valve stenosis. There is no mitral annular calcification. Trivial to mild mitral regurgitation. AORTIC VALVE: Normal trileaflet appearance. No visible sclerosis. Normal leaflet mobility. No evidence of aortic valve stenosis. No aortic regurgitation. AORTIC ROOT: Normal diameter and appearance. PULMONIC VALVE: Normal thickness and mobility. No stenosis. Trivial regurgitation. PERICARDIUM: No evidence of pericardial effusion. IVC: Normal size. Collapes with inspirations. PLEURA: CONCLUSION: Normal left ventricle chamber size. Normal left ventricle box thickness. Normal left ventricular ejection fraction, 60%, no regional wall motion abnormalities. Normal diastolic function. Mild tricuspid regurgitation. No evidence of pulmonary hypertension. RVSP 21 mmHg Trivial to mild mitral regurgitation. Adult Echocardiography Procedure Report Left Ventricle LVEDD (3.7 - 5.6 cm): 4.42 cm LVESD (2.2 - 4.0 cm): 3.02 cm LVIVS thickness (0.6 - 1.2 cm): 1.19 cm LVPW thickness (0.5 - 1.0 cm): 0.68 cm e': 0.17 m/s E - e': 5.25 LVOT Max Gradient: 4.16 mm[Hg] LVOT Area (cm2): 1.02 m/s Peak Velocity (LVOT): 1.02 m/s Mean Velocity (LVOT): 0.64 m/s LVOT Diameter 2.09 cm Left Atrium LA Volume Index (2D A2C): 29.59 ml/m2 Left Atrium Systolic Dimension: 2.43 cm Mitral Valve MV E to A Ratio: 2.16 Mitral Valve A-Wave Peak Velocity: 0.43 m/s Mitral Valve E-Wave Peak Velocity: 0.92 m/s Right Ventricle Aorta AO Root Diam: 3.63 cm Aortic Valve AoV Area (Peak Keenan): 3.20 cm2, 3.20 cm2 AoV Area (VTI): 2.98 cm2, 2.98 cm2 Peak Velocity(Antegrade Flow): 1.10 m/s Peak Gradient(Antegrade Flow): 4.81 mm[Hg] Mean Velocity(Antegrade Flow): 0.72 m/s Mean Gradient(Antegrade Flow): 2.40 mm[Hg] Velocity Time Integral: 25.16 cm Tricuspid Valve Peak Velocity (Regurgitant Flow): 1.86 m/s, 2.05 m/s, 2.10 m/s Pulmonic Valve Mean Gradient: 1.68 mm[Hg] Mean Velocity: 0.60 m/s Peak Velocity: 0.93 m/s, 0.90 m/s Peak Gradient: 3.22 mm[Hg], 3.48 mm[Hg] Right Atrium Right Atrium Systolic Pressure: 23.33 ml, 23.33 ml Dictated by: Rodrigue De Los Santos MD on 10/20/2024 at 17:13 Approved by: Rodrigue De Los Santos MD on 10/20/2024 at 17:29 Dictated By: Rodrigue De Los Santos M.D. Signed By: 10/20/24 173 DD/ 172 TD/TT: Fuse Cup Expander: [place] [address] Cardiology Report Signed Patient: TYREE SILVERMAN MR#: [id number] : 1990 Acct:[id number] Age/Sex: 34 / F ADM Date: 10/20/24 Loc: US Attending Dr: Cole Alvarez M.D. Ordering Physician: Usman Alvarez M.D. Date of Service: 10/20/24 Procedure(s): CA ech o doppler complete Accession Number(s): [id number] cc: Usman Alvarez M.D. Patient Name: KIMBERLY SILVERMAN MR#: [id number] : 1990 Exam Date: 10/20/2024 Ordering Doctor: DR Usman Alvarez . ECHOCARDIOGRAM REPORT PROCEDURE: CA ECHO DOPPLER COMPLETE INDICATIONS: Elevate d antistreptolysin O antibodies COMPARISON: None. DESCRIPTION: COMPLET E ECHOCARDIOGRAM Real-time transthoracic echocardiography wit h 2D, M-mode, spectral and color flow Doppler performed. QUALITY: Technical quality was good. LEFT VENTRICLE: Norm al chamber size. Normal left ventricle box thickness LV EF: Normal left ventricular ejection fraction, 60%, no regional wall motion abnormalities DIASTOLIC: Normal diastolic function. ATRIAL SEPTUM: Visua lly appears intact. LEFT ATRIUM: Normal chamber size. RIGHT ATRIUM: Normal chamber size. RIGHT VENTRICLE: Nor mal chamber size. Normal right ventricular systolic function. TRICUSPID VALVE: Nor mal mobility and thickness. No stenosis with mild regurgitation. No evidence of pulmonary hypertension.RVSP 21 mmHg MITRAL VALVE: Normal mobility and thickness. No evidence of mitral valve stenosis. There is n o mitral annular calcification. Trivial to mild mitral regurgitation. AORTIC VALVE: Normal trileaflet appearance. No visible sclerosis. Normal leaflet mobility. No evidence of aortic valve stenosis. No aortic regurgitation. AORTIC ROOT: Normal diameter and appearance. PULMONIC VALVE: Norm al thickness and mobility. No stenosis. Trivial regurgitation. PERICARDIUM: No evidence of pericardial effusion. IVC: Normal size. Collapes with inspirations. PLEURA: CONCLUSION: Normal left ventricl e chamber size. Normal left ventricle box thickness. Normal left ventricu lar ejection fraction, 60%, no regional wall motion abnormalities. Normal diastolic function. Mild tricuspid regurgitation. No evidence of pulmonary hypertension. RVSP 21 mmHg Trivial to mild mitr al regurgitation. Adult Echocardiograp hy Procedure Report Left Ventricle LVEDD (3.7 - 5.6 cm) : 4.42 cm LVESD (2.2 - 4.0 cm) : 3.02 cm LVIVS thickness (0.6 - 1.2 cm): 1.19 cm LVPW thickness (0.5 - 1.0 cm): 0.68 cm e': 0.17 m/s E - e': 5.25 LVOT Max Gradient: 4 .16 mm[Hg] LVOT Area (cm2): 1.0 2 m/s Peak Velocity (LVOT) : 1.02 m/s Mean Velocity (LVOT) : 0.64 m/s LVOT Diameter 2.09 cm Left Atrium LA Volume Index (2D A2C): 29.59 ml/m2 Left Atrium Systolic Dimension: 2.43 cm Mitral Valve MV E to A Ratio: 2.16 Mitral Valve A-Wave Peak Velocity: 0.43 m/s Mitral Valve E-Wave Peak Velocity: 0.92 m/s Right Ventricle Aorta AO Root Diam: 3.63 cm Aortic Valve AoV Area (Peak Keenan): 3.20 cm2, 3.20 cm2 AoV Area (VTI): 2.98 cm2, 2.98 cm2 Peak Velocity(Antegr kenya Flow): 1.10 m/s Peak Gradient(Antegr kenya Flow): 4.81 mm[Hg] Mean Velocity(Antegr kenya Flow): 0.72 m/s Mean Gradient(Antegr kenya Flow): 2.40 mm[Hg] Velocity Time Integr al: 25.16 cm Tricuspid Valve Peak Velocity (Regurgitant Flow): 1.86 m/s, 2.05 m/s, 2.10 m/s Pulmonic Valve Mean Gradient: 1.68 mm[Hg] Mean Velocity: 0.60 m/s Peak Velocity: 0.93 m/s, 0.90 m/s Peak Gradient: 3.22 mm[Hg], 3.48 mm[Hg] Right Atrium Right Atrium Systoli c Pressure: 23.33 ml, 23.33 ml Dictated by: Rodrigue De Los Santos MD on 10/20/2024 at 17:13 Approved by: Rodrigue De Los Santos MD on 10/20/2024 at 17:29 Dictated By: Rodrigue De Los Santos M.D. Signed By: 10/20/24 1730 DD/ 1729 TD/TT: Fuse Cup Expander: Antistreptolysin O Ab Reviewed date:10/11/2024 06:04:01 PM Interpretation: Performing Lab: Notes/Report: [facility] , Antistreptolysin O Ab 433.4 0.0-200.0 IU/mL Performed at: - [facility] [address] [id number] Shipping Room Supervisor: Ayo Pardo PhD, Phone: [phone] Performing Lab: see note - [facility] LB Erythrocyte Sedimentation Ra te Reviewed date:10/10/2024 05:51:18 PM Interpretation: Performing Lab: Notes/Report: [facility] , Erythrocyte Sedimentation Rate 4 <=20 mm/hr Performing Lab: see note ML - [facility] LB URIC ACID SERUM Reviewed date:10/10/2024 05:51:18 PM Interpretation: Performing Lab: Notes/Report: [facility] , Uric Acid 3.6 2.6-6.0 mg/dL Performing Lab: see note - [facility] LB RHEUMATOID FACTOR Reviewed date:10/11/2024 06:04:01 PM Interpretation: Performing Lab: Notes/Report: [facility] , Rheumatoid Factor (RF) <10.0 <14.0 IU/mL Performing Lab: see note LC - [facility] LB PROF 14(COMP METB) Reviewed date:10/10/2024 05:51:18 PM Interpretation: Performing Lab: Notes/Report: [facility] , Sodium 140 136-145 mmol/L Potassium 3.8 3.5-5.1 mmol/L Chloride 104 98-107 mmol/L Carbon Dioxide 25.4 21.0-32.0 mmol/L Anion Gap 14.4 Glucose 77 74-106 mg/dL Blood Urea Nitrogen 6.0 7.0-18.0 mg/dL Creatinine 0.75 0.55-1.02 mg/dL Estimated GFR ( Cheyanne >60 >=60 mL/min/1.73m 2 Estimated GFR (Non- Camila >60 >=60 mL/min/1.73m 2 BUN Creatinine Ratio 8.0 Calcium 8.5 8.5-10.1 mg/dL Bilirubin Total 0.6 0.2-1.0 mg/dL Aspartate Amino Transferase 21 15-37 U/L Alanine Aminotransferase 30 14-59 U/L Alkaline Phosphatase 52 46-116 U/L Total Protein 7.3 6.4-8.2 g/dL Albumin Level 3.9 3.4-5.0 g/dL Globulin 3.4 Albumin Globulin Ratio 1.1 Performing Lab: see note ML - [facility] LB CRP Reviewed date:10/10/2024 05:51:18 PM Interpretation: Performing Lab: Notes/Report: [facility] , C Reactive Protein <0.50 <=0.50 mg/dL Performing Lab: see note - [facility] LB AGUSTIN by IFA Reviewed date:10/11/2024 06:04:01 PM Interpretation: Performing Lab: Notes/Report: [facility] , Antinuclear Antibodies, IFA Negative . Negative <1:80 Borderline 1:80 Positive >1:80 ICAP nomenclature: AC-0 For more information about Hep-2 cell patterns use ANApatterns.org, the official website for the International Consensus on Antinuclear Antibody (AGUSTIN) Patterns (ICAP). Performed at: [facility] [address] [id number] Shipping Room Supervisor: Ayo Pardo PhD, Phone: [phone] Performing Lab: see note - [facility] LB CT HIP LT WO CON Reviewed date:08/04/2024 04:10:35 PM Interpretation: Performing Lab: Notes/Report: Source Facility: [place] [address] [place] [address] CT Scan Report Signed Patient: KIMBERLY SILVERMAN MR#: [id number] : 1990 Acct:[id number] Age/Sex: 34 / F ADM Date: 08/04/24 Loc: CT Attending Dr: Usman Alvarez M.D. Ordering Physician: Usman Alvarez M.D. Date of Service: 08/04/24 Procedure(s): CT hip LT wo con Accession Number(s): [id number] cc: Usman Alvarez M.D. [place] [address] Patient Name: KIMBERLY SILVERMAN MRN: [id number] date: 1990 Sex: F Assigned Patient Location: CT Current Patient Location: LAB Accession/Order Number: [id number] Exam Date: 08/04/2024 08:35 Report Date: 08/04/2024 14:43 At the request of: USMAN ALVAREZ Procedure: CT hip LT wo con EXAMINATION: CT hip LT wo con HISTORY: M25.552, LEFT HIP PAIN COMPARISON: 07/21/2024 plain x-ray TECHNIQUE: Multi-planar CT images were created without IV contrast. Dose reduction techniques were achieved by using automated exposure control and/or adjustment of mA and/or kV according to patient size and/or use of iterative reconstruction technique. FINDINGS: BONES: No acute fracture or dislocation. No significant degenerative changes. SOFT TISSUES: Negative. No visible soft tissue swelling. EFFUSION: None visible. OTHER: Negative. CT/CT hip LT wo con IMPRESSION: No acute abnormality Electronically authenticated by: MINISTERIO MCCRYA Date: 08/04/2024 14:43 Dictated By: Ministerio Mccray M.D. Signed By: 08/04/24 1445 DD/ 42 TD/TT: Fuse Cup Expander: [place] [address] CT Scan Report Signed Patient: TYREE SILVERMAN MR#: [id number] : 1990 Acct:[id number] Age/Sex: 34 / F ADM Date: 08/04/24 Loc: CT Attending Dr: Cole Alvarez M.D. Ordering Physician: Usman Alvarez M.D. Date of Service: 08/04/24 Procedure(s): CT hip LT wo con Accession Number(s): [id number] cc: Usman Alvarez M.D. [place] [address] Patient Name: KIMBERLY SILVERMAN MRN: [id number] date: 1990 Sex: F Assigned Patient Location: CT Current Patient Location: LAB Accession/Order Numb er: [id number] Exam Date: 08/04/2024 08:35 Report Date: 08/04/2024 14:43 At the request of: USMAN ALVAREZ Procedure: CT hip LT wo con EXAMINATION: CT hip LT wo con HISTORY: M25.552, LE FT HIP PAIN COMPARISON: 07/21/2024 plain x-ray TECHNIQUE: Multi-lisa ishmael CT images were created without IV contrast. Dose reduction techniques were achieved by using automated exposure control and/or adjustment of mA and /or kV according to patient size and/or use of iterative reconstruction technique. FINDINGS: BONES: No acute fracture or dislocation. No significant degenerative changes. SOFT TISSUES: Negati ve. No visible soft tissue swelling. EFFUSION: None visible. OTHER: Negative. CT/CT hip LT wo con IMPRESSION: No acute abnormality Electronically authenticated by: MINISTERIO MCCRAY Date: 08/04/2024 14:43 Dictated By: Jordan Mccray M.D. Signed By: 08/04/241444 DD/ 42 TD/TT: Fuse Cup Expander: IGLili,Aptima HPV,Age Gdln Reviewed date:08/04/2024 01:03:13 PM Interpretation: Performing Lab: Notes/Report: SPATULA-ALONE V[facility] , Age Gdln ACOG Testing Note . TESTS RESULT FLAG UNITS REF RANGE LAB Clinician Provided Cytology Information Source.............Vagi na No. of containers..01 ThinPrep Vial Age Algo ACOG Eneida... 30 FLAG LEGEND: L-Low Normal,H-High Normal,LL-Alert Low,HH-Alert High <-Panic Low,>-Panic High,A-Abnormal,AA-Crit ical Abnormal Performed at: 01 =G [facility] [address] [place] [address] Sandy Lemon MD, IGP, Aptima HPV, rfx 16/18,45 Note . TESTS RESULT FLAG UNITS REF RANGE LAB DIAGNOSIS: 02 NEGATIVE FOR INTRAEPITHELIAL LESION OR MALIGNANCY. Specimen adequacy: 02 Satisfactory for evaluation. Performed by: Sola C Wilt, Wind Site Manager (ASCP) . 02 Note: Note 03 The Pap [...] L-Low Normal,H-High Normal,LL-Alert Low,HH-Alert High <-Panic Low,>-Panic High,A-Abnormal,AA-Crit ical Abnormal Performed at: 02 [facility] [id number] [place] [address] Holden Croft MD, [address] [address] Sandy Lemon MD, HPV Aptima Negative Negative This nucleic acid amplification test detects fourteen high- risk HPV types (16,18,31,33,35,39,45,5 1,52,56,58,59,66,68) without differentiation. Performed at: = - [address] [id number] Shipping Room Supervisor: Sandy Lemon MD, Phone: [phone] Performed at: [facility] [address] [place], [place] [id number] Shipping Room Supervisor: Holden Croft MD, Phone: [phone] Performing Lab: see note - [facility] LB Antistreptolysin O Ab Reviewed date:07/31/2024 09:11:06 PM Interpretation: Performing Lab: Notes/Report: [facility] , Antistreptolysin O Ab 437.1 0.0-200.0 IU/mL Performed at: [address] [id number] Shipping Room Supervisor: Ayo Pardo PhD, Phone: [phone] Performing Lab: see note - [facility] LB RHEUMATOID FACTOR Reviewed date:07/31/2024 09:11:06 PM Interpretation: Performing Lab: Notes/Report: [facility] , Rheumatoid Factor (RF) <10.0 <14.0 IU/mL Performing Lab: see note [facility] LB AGUSTIN by IFA Reviewed date:07/31/2024 09:11:06 PM Interpretation: Performing Lab: Notes/Report: [facility] , Antinuclear Antibodies, IFA Negative . Negative <1:80 Borderline 1:80 Positive >1:80 ICAP nomenclature: AC-0 For more information about Hep-2 cell patterns use ANApatterns.org, the official website for the International Consensus on Antinuclear Antibody (AGUSTIN) Patterns (ICAP). Performed at: [address] [id number] Shipping Room Supervisor: Ayo Pardo PhD, Phone: [phone] Performing Lab: see note [facility] LB US arterial duplex LE RT Reviewed date:07/23/2024 08:51:20 PM Interpretation: Performing Lab: Notes/Report: Source Facility: [place] [address] [place] [address] Ultrasound Report Signed Patient: KIMBERLY SILVERMAN MR#: [id number] : 1990 Acct:[id number] Age/Sex: 34 / F ADM Date: 07/21/24 Loc: US Attending Dr: Usman Alvarez M.D. Ordering Physician: Usman Alvarez M.D. Date of Service: 07/21/24 Procedure(s): US arterial duplex LE BI Accession Number(s): [id number] cc: Usman Alvarez M.D. [address] [address] Patient Name: KIMBERLY SILVERMAN MRN: [id number] date: 1990 Sex: F Assigned Patient Location: Current Patient Location: Accession/Order Number: [id number] Exam Date: 07/21/2024 07:30 Report Date: 07/22/2024 06:16 At the request of: USMAN ALVAREZ Procedure: US arterial duplex LE BI EXAMINATION: US arterial duplex LE BI HISTORY: Deep venous thrombosis I82.409 COMPARISON: No relevant comparison available. TECHNIQUE: Color and Duplex Doppler ultrasound evaluation analysis were performed in the usual manner. FINDINGS: RIGHT LOWER EXTREMITY ARTERIAL: Normal triphasic waveform throughout. External Iliac PSV: 134.49 cm/s External Iliac EDV: 8.48 cm/s Common Femoral PSV: 95.72 cm/s Common Femoral EDV: 8.48 cm/s Superficial Femoral Proximal PSV: 97.33 cm/s Proximal EDV: 6.87 cm/s Mid PSV: 116.78 cm/s Mid EDV: 0 cm/s Distal PSV: 83.24 cm/s Distal EDV: 0 cm/s Popliteal Proximal PSV 42.04 cm/s Popliteal Proximal EDV: 0 cm/s Posterior Tibial Proximal PSV: 58.50 cm/s Proximal EDV: 0 cm/s Mid PSV: 56.31 cm/s Mid EDV: 0 cm/s Distal PSV: 39.83 cm/s Distal EDV: 0 cm/s Anterior Tibial Proximal PSV: 57.37 cm/s Proximal EDV: 0 cm/s Mid PSV: 61.76 cm/s Mid EDV: Distal PSV: 55.19 cm/s Distal EDV: 0 cm/s LEFT LOWER EXTREMITY ARTERIAL; normal triphasic waveform throughout. External Iliac PSV: 102.99 cm/s External Iliac EDV: 0 cm/s Common Femoral PSV: 81.30 cm/s Common Femoral EDV: 0 cm/s Superficial Femoral Proximal PSV: 87.22 cm/s Proximal EDV: 0 cm/s Mid PSV: 120.72 cm/s Mid EDV: 0 cm/s Distal PSV: 67.48 cm/s Distal EDV: 0 cm/s Popliteal Proximal PSV: 38.75 cm/s Popliteal Proximal EDV: 0 cm/s Posterior Tibial Proximal PSV: 59.60 cm/s Proximal EDV: 4.67 cm/s Mid PSV: 49.71 cm/s Mid EDV: 2.47 cm/s Distal PSV: 40.92 cm/s Distal EDV: 0 cm/s Anterior Tibial Proximal PSV: 47.49 cm/s Proximal EDV: 0 cm/s Mid PSV: 59.57 cm/s Mid EDV: 0 cm/s Distal PSV: 54.09 cm/s Distal EDV: 0 cm/s US/US arterial duplex LE BI IMPRESSION: 1. Normal triphasic waveform throughout the right and left lower extremities. 2. No significant vessel stenosis or suspicious findings. Electronically authenticated by: JUAN FRANCISCO SUAREZ Date: 07/22/2024 06:16 Dictated By: Juan Francisco Suarez M.D. Signed By: 07/22/24617 DD/ 5 TD/TT: Fuse Cup Expander: [place] [address] Ultrasound Report Signed Patient: TYREE SILVERMAN MR#: [id number] : 1990 Acct:[id number] Age/Sex: 34 / F ADM Date: 07/21/24 Loc: US Attending Dr: Cole Alvarez M.D. Ordering Physician: Usman Alvarez M.D. Date of Service: 07/21/24 Procedure(s): US arterial duplex LE BI Accession Number(s): [id number] cc: Usman Alvarez M.D. [place] [id number] Patient Name: KIMBERLY SILVERMAN MRN: [id number] date: 1990 Sex: F Assigned Patient Location: US Current Patient Location: Accession/Order Numb er: [id number] Exam Date: 07/21/2024 07:30 Report Date: 07/22/2024 06:16 At the request of: USMAN ALVAREZ Procedure: US arteri al duplex LE BI EXAMINATION: US arterial duplex LE BI HISTORY: Deep venous thrombosis I82.409 COMPARISON: No relev ant comparison available. TECHNIQUE: Color and Duplex Doppler ultrasound evaluation analysis were performed in the usu al manner. FINDINGS: RIGHT LOWER EXTREMIT Y ARTERIAL: Normal triphasic waveform throughout. External Iliac PSV: 134.49 cm/s External Iliac EDV: 8.48 cm/s Common Femoral PSV: 95.72 cm/s Common Femoral EDV: 8.48 cm/s Superficial Femoral Proximal PSV: 97.33 cm/s Proximal EDV: 6.87 cm/s Mid PSV: 116.78 cm/s Mid EDV: 0 cm/s Distal PSV: 83.24 cm /s Distal EDV: 0 cm/s Popliteal Proximal P SV 42.04 cm/s Popliteal Proximal EDV: 0 cm/s Posterior Tibial Proximal PSV: 58.50 cm/s Proximal EDV: 0 cm/s Mid PSV: 56.31 cm/s Mid EDV: 0 cm/s Distal PSV: 39.83 cm /s Distal EDV: 0 cm/s Anterior Tibial Proximal PSV: 57.37 cm/s Proximal EDV: 0 cm/s Mid PSV: 61.76 cm/s Mid EDV: Distal PSV: 55.19 cm /s Distal EDV: 0 cm/s LEFT LOWER EXTREMITY ARTERIAL; normal triphasic waveform throughout. External Iliac PSV: 102.99 cm/s External Iliac EDV: 0 cm/s Common Femoral PSV: 81.30 cm/s Common Femoral EDV: 0 cm/s Superficial Femoral Proximal PSV: 87.22 cm/s Proximal EDV: 0 cm/s Mid PSV: 120.72 cm/s Mid EDV: 0 cm/s Distal PSV: 67.48 cm /s Distal EDV: 0 cm/s Popliteal Proximal P SV: 38.75 cm/s Popliteal Proximal EDV: 0 cm/s Posterior Tibial Proximal PSV: 59.60 cm/s Proximal EDV: 4.67 cm/s Mid PSV: 49.71 cm/s Mid EDV: 2.47 cm/s Distal PSV: 40.92 cm /s Distal EDV: 0 cm/s Anterior Tibial Proximal PSV: 47.49 cm/s Proximal EDV: 0 cm/s Mid PSV: 59.57 cm/s Mid EDV: 0 cm/s Distal PSV: 54.09 cm /s Distal EDV: 0 cm/s US/US arterial duplex LE BI IMPRESSION: 1. Normal triphasic waveform throughout the right and left lower extremities. 2. No significant vessel stenosis or suspicious findings. Electronically authenticated by: JUAN FRANCISCO SUAREZ Date: 07/22/2024 06:16 Dictated By: Juan Francisco Suarez M.D. Signed By: 07/22/24617 DD/ 5 TD/TT: F[employer] Expander: XR lumbar spine min 4V Reviewed date:07/23/2024 08:51:20 PM Interpretation: Performing Lab: Notes/Report: Source Facility: [place] [address] XRay Report Signed Patient: KIMBERLY SILVERMAN MR#: [id number] : 1990 Acct:[id number] Age/Sex: 34 / F ADM Date: 07/21/24 Loc: Attending Dr: Usman Alvarez M.D. Ordering Physician: Usman Alvarez M.D. Date of Service: 07/21/24 Procedure(s): XR lumbar spine min 4V Accession Number(s): [id number] cc: Usman Alvarez M.D. [place] [address] Patient Name: KIMBERLY SILVERMAN MRN: [id number] date: 1990 Sex: F Assigned Patient Location: Current Patient Location: Accession/Order Number: [id number] Exam Date: 07/21/2024 08:05 Report Date: 07/21/2024 10:43 At the request of: USMAN ALVAREZ Procedure: XR lumbar spine min 4V EXAM: XR lumbar spine min 4V CLINICAL INDICATION: Back pain COMPARISON: None TECHNIQUE: 4 views of the lumbar spine obtained FINDINGS: There are 5 nonrib-bearing lumbar-type vertebra. Vertebral body heights and disc spaces are maintained without evidence for acute fracture. No subluxations. No significant degenerative changes of the lumbar spine. XR/XR lumbar spine min 4V IMPRESSION: Unremarkable exam. Electronically authenticated by: MORRO ZAYAS Date: 07/21/2024 10:43 Dictated By: Morro Zayas M.D. Signed By: 07/21/241044 DD/ 104 TD/TT: Fuse Cup Expander: [place] [address] XRay Report Signed Patient: TYREE SILVERMAN MR#: [id number] : 1990 Acct:[id number] Age/Sex: 34 / F ADM Date: 07/21/24 Loc: US Attending Dr: Cole Alvarez M.D. Ordering Physician: Usman Alvarez M.D. Date of Service: 07/21/24 Procedure(s): XR lum bar spine min 4V Accession Number(s): [id number] cc: Usman Alvarez M.D. [place] [address] Patient Name: KIMBERLY SILVERMAN MRN: [id number] date: 1990 Sex: F Assigned Patient Location: Current Patient Location: US Accession/Order Numb er: [id number] Exam Date: 07/21/2024 08:05 Report Date: 07/21/2024 10:43 At the request of: USMAN ALVAREZ Procedure: XR lumbar spine min 4V EXAM: XR lumbar spin e min 4V CLINICAL INDICATION: Back pain COMPARISON: None TECHNIQUE: 4 views o f the lumbar spine obtained FINDINGS: There are 5 nonrib-bearing lumbar-type vertebra. Vertebral body heights and disc spaces are maintained without evidence for acute fracture. No subluxations. No significant degenerative changes of the lumbar spine. XR/XR lumbar spine min 4V IMPRESSION: Unremarkable exam. Electronically authenticated by: MORRO ZAYAS Date: 07/21/2024 10:43 Dictated By: Morro Zayas M.D. Signed By: 07/21/241044 DD/ 104 TD/TT: Fuse Cup Expander: US venous doppler LE BI Reviewed date:07/23/2024 08:51:20 PM Interpretation: Performing Lab: Notes/Report: Source Facility: [place] [address] [place] [address] Ultrasound Report Signed Patient: KIMBERLY SILVERMAN MR#: [id number] : 1990 Acct:[id number] Age/Sex: 34 / F ADM Date: 07/21/24 Loc: US Attending Dr: Usman Alvarez M.D. Ordering Physician: Usman Alvarez M.D. Date of Service: 07/21/24 Procedure(s): US venous doppler LE LT Accession Number(s): [id number] cc: Usman Alvarez M.D. [place] [address] Patient Name: KIMBERLY SILVERMAN MRN: [id number] date: 1990 Sex: F Assigned Patient Location: Current Patient Location: US Accession/Order Number: [id number] Exam Date: 07/21/2024 07:30 Report Date: 07/21/2024 11:21 At the request of: USMAN ALVAREZ Procedure: US venous doppler LE LT EXAMINATION: US venous doppler LE LT HISTORY: Deep venous thrombosis I82.409 COMPARISON: Ultrasound venous Doppler lower extremity left 01/23/2024 FINDINGS: REGION: Left lower extremity THROMBI: None. COMPRESSIBILITY: Normal compressibility. FLOW: Normal waveform and antegrade flow between 5 and 20 cm/s. OTHER: None. US/US venous doppler LE LT IMPRESSION: 1. No deep vein thrombus within the left lower extremity. Electronically authenticated by: JUAN FRANCISCO SUAREZ Date: 07/21/2024 11:21 Dictated By: Juan Francisco Suarez M.D. Signed By: 07/21/24 1123 DD/ 1121 TD/TT: Fuse Cup Expander: [place] [address] Ultrasound Report Signed Patient: TYREE SILVERMAN MR#: [id number] : 1990 Acct:[id number] Age/Sex: 34 / F ADM Date: 07/21/24 Loc: US Attending Dr: Cole Alvarez M.D. Ordering Physician: Usman Alvarez M.D. Date of Service: 07/21/24 Procedure(s): US ivelisse ous doppler LE LT Accession Number(s): [id number] cc: Usman Alvarez M.D. [place] [address] Patient Name: KIMBERLY SILVERMAN MRN: [id number] date: 1990 Sex: F Assigned Patient Location: US Current Patient Location: US Accession/Order Numb er: [id number] Exam Date: 07/21/2024 07:30 Report Date: 07/21/2024 11:21 At the request of: USMAN ALVAREZ Procedure: US venous doppler LE LT EXAMINATION: US veno us doppler LE LT HISTORY: Deep venous thrombosis I82.409 COMPARISON: Ultrasou nd venous Doppler lower extremity left 01/23/2024 FINDINGS: REGION: Left lower extremity THROMBI: None. COMPRESSIBILITY: Nor mal compressibility. FLOW: Normal wavefor m and antegrade flow between 5 and 20 cm/s. OTHER: None. US/US venous doppler LE LT IMPRESSION: 1. No deep vein thrombus within the left lower extremity. Electronically authenticated by: JUAN FRANCISCO SUAREZ Date: 07/21/2024 11:21 Dictated By: Juan Francisco Suarez M.D. Signed By: 07/21/24 1123 DD/ 1121 TD/TT: Fuse Cup Expander: CBC AUTO DIFF Reviewed date:07/26/2024 09:52:38 PM Interpretation: Performing Lab: Notes/Report: [facility] , White Blood Count 7.2 4.0-11.0 10 3/uL Red Blood Count 4.44 4.20-5.40 10 6/uL Hemoglobin 14.2 12.0-16.0 g/dL Hematocrit 41.4 36.0-48.0 % Mean Corpuscular Volume 93.2 81.0-99.0 fL Mean Corpuscular Hemoglobin 32.0 26.7-34.0 pg Mean Corpuscular HGB Conc 34.3 29.9-35.2 g/dL Red Cell Distribution Width 11.2 11.0-15.0 % Platelet Count 207 150-450 10 3/uL Mean Platelet Volume 10.2 9.5-13.5 fL Neutrophils Percent Auto 59.1 43.0-75.0 % Lymphocytes Percent Auto 33.5 20.5-60.0 % Monocytes Percent Auto 5.4 1.7-12.0 % Eosinophils Percent Auto 1.4 0.9-7.0 % Basophils Percent Auto 0.3 0.2-2.0 % Immature Granulocytes Pct Auto 0.3 0.0-0.5 % Neutrophils Absolute Auto 4.2 1.4-6.5 10 3/uL Lymphocytes Absolute Auto 2.4 1.2-3.8 10 3/uL Monocytes Absolute Auto 0.4 0.3-0.8 10 3/uL Eosinophils Absolute Auto 0.1 0.0-0.7 10 3/uL Basophils Absolute Auto 0.0 0.0-0.1 10 3/uL Immature Granulocytes Abs Auto 0.02 0.00-0.03 10 3/uL Performing Lab: see note ML - [facility] LB XR Sacroiliac joints (3 view s) * Reviewed date:11/24/2024 08:58:54 AM Interpretation: Performing Lab: Notes/Report: SED RATE and CRP Reviewed date:11/23/2024 04:02:45 PM Interpretation: Performing Lab:[facility], [address] [place], [address] [phone] Notes/Report: FACILITY: [facility] [id number] SED RATE WEST. 5 (0 - 25) MM/HR CRP EXTENDED RANGE <0.30 (0.00 - 5.00) MG/L HLA-B27 Reviewed date:11/25/2024 10:23:16 AM Interpretation: Performing Lab:CB, [facility] [address], [place] HernandezIpevWP[address] [place] Notes/Report: FASTING:UNKNOWN FASTING: UNKNOWN HLA-B27 ANTIGEN NEGATIVE NEGATIVE COVID-19, Flu A+B IH Reviewed date:04/07/2025 11:55:46 AM Interpretation: Performing Lab: Notes/Report: COVID - FLU A - FLU B - Control + UA (Urinalysis, Dipstix only - w/o micro) Reviewed date:04/07/2025 11:55:46 AM Interpretation: Performing Lab: Notes/Report: GLUCOSE - 0 - 133 MG/DL ALBUMIN - NEG - NEG MG/DL BILIRUBIN - NEG - NEG MG/DL SPECIFIC GRAVITY 10.20 1.001 - 1.035 KETONES - NEG - NEG MG/DL BLOOD, UR - PH, UR 5 5 - 9 UROBILNOGEN - 0.2 - 1 MG/DL NITRITE - NEG - NEG ESTERASE (BRUCE) - NEG - NEG MG/DL Total Protein 24 Hour Urine Reviewed date:10/22/2024 06:28:17 PM Interpretation: Performing Lab: Notes/Report: [facility] , Total Protein Urine Random 8.4 <=11.9 mg/dL Total Volume 24 Hour Urine 825 Total Protein 24 Hour Urine 69.3 <=149.1 mg/24hr Performing Lab: see note ML - [facility] Reason For Referral Diagnosis 1 Elevated anti-strept olysin O antibodies (R76.8) Referral Organization [facility] Referring Provider First Name Rui Referring Provider Last Name [facility] Referring Provider [facility] Referred Provider Francois Jama Referred Provider Specialty Rheumatology Referral Priority Routine Diagnosis 1 Sacrococcygeal disor ders, not elsewhere classified (M53.3) Referral Organization [facility] Referring Provider First Name Rui Referring Provider Last Name [facility] Provider [facility], [facility] Referred Provider Specialty Pain Medicin e Referral Priority Routine Diagnosis 1 Left hip pain (M25.5 52) Referral Organization [facility] Referring Provider First Name Rui Referring Provider Last Name [facility] Referred Provider Patricio Ledesma Referred Provider Specialty Orthopedic S urgery Referral Priority Routine Medications Medication SIG (Take, Route, Frequency, Duration) Notes Start Date End Date Status Cyclobenzaprine HCl 10 MG Take 1/2 table t Orally twice daily 06/13/2025 Active Aspir-Low 81 MG 1 tablet Orally Once a day Active Eliquis 5 MG 1 tablet Orally Twic e a day Active Probiotic Active Social History Tobacco Use: Social History Observation Description Date Details (start date - stop date) Former Smoker 05/15/2005 - 06/15/2023 Tobacco Control (Standard) Question Answer Notes Tobacco use: Former smoker When did you start smoking? 05/15/2005 When did you stop smoking? 06/15/2023 AUDIT-C (Standard) Question Answer Notes Did you have a drink contain ing alcohol in the past year? Yes How often did you have six o r more drinks on one occasion in the past year? Never (0 point) How many drinks did you have on a typical day when you were drinking in the past year? 1 or 2 drinks (0 point) How often did you have a dri nk containing alcohol in the past year? 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 Problem Arthralgia of the pelvic region and thigh (536947560) Left hip pain (M25.552) Active confirmed Problem Deep venous thrombosis (011396091) Deep venous thrombosis (I82.409) Active confirmed Problem Leukocytosis (275927018) Leukocytosis (D72.829) Active confirmed Problem Factor V deficiency (2895476) Factor V deficiency (D68.2) Active confirmed Problem May-Thurner syndrome (365756625) May-Thurner syndrome (I87.1) Active confirmed Problem 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 Vital Signs Heart Rate 72 /min 11/23/2024 Temperature 97.9 degrees Fahrenheit 11/09/2024 Respiratory Rate 16 /min 11/23/2024 Blood pressure diastolic 84 mm Hg 06/13/2025 Height 62 in 06/13/2025 Blood pressure systolic 122 mm Hg 06/13/2025 Weight 133.0 lbs 06/13/2025 BMI 24.32 kg/m2 06/13/2025 Procedures Procedure Date Ordered Date Performed Result Body Sit e Echocardiogram 10/11/2024 N/A Encounters Encounter Location Date Provider Diagnosis [facility] [address] [place] [address] 07/19/2024 Rui Hoy Deep venous thrombos is I82.409 and May-Thurner syndrome I87.1 [facility] [address] [place] [address] 10/30/2024 Rui Hoy Fever R50.9 and Acut e bronchitis, unspecified organism J20.9 [facility] Rheumatology [address] [place] [address] [place] [address] 11/23/2024 Jonathon Gennaoui Pain in left hip M25 .552 ; Sacrococcygeal disorders, not elsewhere classified M53.3 ; Other chronic pain G89.29 and Trochanteric bursitis, left hip M70.62 [facility] [address] [place] [address] 11/09/2024 Rui Hoy Acute bronchitis, unspecified organism J20.9 [facility] [address] [place] [address] 06/13/2025 Rui Hoy Sacrococcygeal disorders, not elsewhere classified M53.3 and Left hip pain M25.552 [facility] [address] [facility] [place] [address] 08/22/2024 [facility] [address] [place] [address] [facility] [address] [place] [address] 01/11/2025 Rui Hoy Sacrococcygeal disorders, not elsewhere classified M53.3 [facility] [address] [place] [address] 07/13/2024 Rui Hoy Paresthesia of skin R20.2 [facility] [address] [place] [address] 07/23/2024 Rui Hoy Joint pain M25.50 [facility] [address] [place] [address] 07/26/2024 Rui Hoy Left hip pain M25.55 2 [facility] [address] [place] [facility] [place] [address] 07/31/2024 Rui Hoy Streptobacillosis A2 5.1 [facility] [address] [place] [facility] [place] [address] 08/04/2024 Rui Hoy [facility] [address] [place] [facility] [address] 08/09/2024 Rui Hoy Paresthesia of skin R20.2 [facility] [address] [place] [facility] [place] [address] 09/04/2024 Rui Hoy [facility] [address] [place] [facility] [place] [address] 09/11/2024 Rui Hoy Paresthesia of skin R20.2 [facility] [address] [place] [facility] [place] [address] 10/09/2024 Rui Hoy May-Thurner syndrome I87.1 [facility] [address] [place] [facility] [address] 10/09/2024 Rui Hoy Paresthesia of skin R20.2 [facility] [address] [place] [facility] [place] [address] 10/10/2024 Rui Hoy [facility] [address] [place] [facility] [place] [address] 10/11/2024 Rui Hoy Elevated anti-streptolysin O antibodies R76.8 [facility] [address] [place] [facility] [place] [address] 10/22/2024 Rui Hoy [facility] [address] [place] [facility] [place] [address] 10/27/2024 Rui Hoy [facility] [address] [place] [facility] [place] [address] 10/30/2024 Rui Hoy [facility] [address] [place] [address] 11/09/2024 Rui Hoy Paresthesia of skin R20.2 [facility] [address] [place] [address] 12/11/2024 Rui Hoy Paresthesia of skin R20.2 [facility] Rheumatology [address] [facility] [place] [address] 01/09/2025 Jonathon Hernandez [facility] [address] [place] [facility] [address] 01/10/2025 Rui Hoy Paresthesia of skin R20.2 [facility] [address] [place] [facility] [address] 01/29/2025 Rui Hoy Paresthesia of skin R20.2 [facility] [address] [place] [facility] [place] [address] 04/25/2025 Rui Hoy [facility] [address] [place] [facility] [place] [address] 06/13/2025 Rui Hoy Left hip pain M25.55 2 [facility] [address] [place] [facility] [place] [address] 06/25/2025 Rui Hoy Left hip pain M25.55 2 Assessments Encounter Date Diagnosis (ICD Code) Assessment Notes Treatment Notes Treatment Clinical Notes Section Notes 01/11/2025 Sacrococcygeal disorders, not elsewhere classified (ICD-10 - M53.3) tapering =- 600 mg a day for 1 week - 300 mg a day for 1 week - then caling and would do 10 mg cap - 2 at hs or 1 week then 1 at hs for 1 week 06/13/2025 Sacrococcygeal disorders, not elsewhere classified (ICD-10 - M53.3) 06/13/2025 Left hip pain (ICD-10 - M25.552) 07/13/2024 Paresthesia of skin (ICD-10 - R20.2) 07/23/2024 Joint pain (ICD-10 - M25.50) 07/26/2024 Left hip pain (ICD-10 - M25.552) 07/31/2024 Streptobacillosis (ICD-10 - A25.1) 08/09/2024 Paresthesia of skin (ICD-10 - R20.2) 09/11/2024 Paresthesia of skin (ICD-10 - R20.2) 10/09/2024 May-Thurner syndrome (ICD-10 - I87.1) 10/09/2024 Paresthesia of skin (ICD-10 - R20.2) 10/11/2024 Elevated anti-streptolysin O antibodies (ICD-10 - R76.8) 11/09/2024 Paresthesia of skin (ICD-10 - R20.2) 12/11/2024 Paresthesia of skin (ICD-10 - R20.2) 01/10/2025 Paresthesia of skin (ICD-10 - R20.2) 01/29/2025 Paresthesia of skin (ICD-10 - R20.2) 06/13/2025 Left hip pain (ICD-10 - M25.552) 06/25/2025 Left hip pain (ICD-10 - M25.552) 07/19/2024 Deep venous thrombosis (ICD-10 - I82.409) 07/19/2024 May-Thurner syndrome (ICD-10 - I87.1) seeing hematologyu 10/30/2024 Fever (ICD-10 - R50.9) 11/09/2024 Acute bronchitis, unspecified organism (ICD-10 - J20.9) Rest and drink more liquids, especially water. You may use a humidifier or vaporizer to help keep the drainage moist. Aupo-nbt-kybtyuc Nasal Saline may help the stuffy and runny nose. Use Ibuprofen and or Tylenol as needed for fever, chills, body aches or pain. Children 5 years old should not be given etto-jmu-ckeykxl cough and cold medications such as guaifenesin and dextromethorphan. If you're over age 5, you may try szfx-kfb-addrzoy cold medications such as guaifenesin and dextromethorphan, or multi-symptom cold reliever such as Dayquil to help reduce the symptoms. Antibiotics have been prescribed. You should take these until completed and follow the directions. Antibiotics can sometimes cause upset stomach, and in rare cases, serious allergic reactions or serious gastrointestinal problems. If you start having severe abdominal pain, severe vomiting, or bloody diarrhea, you should be reevaluated by your physician or urgent care immediately. Follow up with your Primary Care Provider or return to clinic if symptoms do not improve within 3-5 days. If you develop severe symptoms such as shortness of breath, repeated vomiting, coughing up blood, or chest pain you should go to the emergency room or call 911 11/23/2024 Pain in left hip (ICD-10 - M25.552) # Left hip pain and SI joint pain -I have some concern for underlying spondyloarthropat hy -labs reviewed and RF, AGUSTIN antibodies were negative. ESR normal. Antistreptolysin O antibodies were done for what ever reason and positive -X-rays reviewed of the left hip and low back and nondiagnostic -She has been doing physical therapy for pelvic floor and has included treatment of her left hip. -Plan: Labs ordered for further evaluation. X-ray ordered of the SI joint. If no evidence of sacroiliitis, we will pursue MRI of the SI joint and left hip to evaluate for synovitis/sacroil iitis vs other pathology. I did give her exercises to do at home. # Trochanteric bursitis, left -This is part of the pain in her left hip -Injected with betamethasone today 11/23/2024 without complication Follow up in 2 months 11/23/2024 Sacrococcygeal disorders, not elsewhere classified (ICD-10 - M53.3) # Left hip pain and SI joint pain -I have some concern for underlying spondyloarthropat hy -labs reviewed and RF, AGUSTIN antibodies were negative. ESR normal. Antistreptolysin O antibodies were done for what ever reason and positive -X-rays reviewed of the left hip and low back and nondiagnostic -She has been doing physical therapy for pelvic floor and has included treatment of her left hip. -Plan: Labs ordered for further evaluation. X-ray ordered of the SI joint. If no evidence of sacroiliitis, we will pursue MRI of the SI joint and left hip to evaluate for synovitis/sacroil iitis vs other pathology. I did give her exercises to do at home. # Trochanteric bursitis, left -This is part of the pain in her left hip -Injected with betamethasone today 11/23/2024 without complication Follow up in 2 months 11/23/2024 Other chronic pain (ICD-10 - G89.29) # Left hip pain and SI joint pain -I have some concern for underlying spondyloarthropat hy -labs reviewed and RF, AGUSTIN antibodies were negative. ESR normal. Antistreptolysin O antibodies were done for what ever reason and positive -X-rays reviewed of the left hip and low back and nondiagnostic -She has been doing physical therapy for pelvic floor and has included treatment of her left hip. -Plan: Labs ordered for further evaluation. X-ray ordered of the SI joint. If no evidence of sacroiliitis, we will pursue MRI of the SI joint and left hip to evaluate for synovitis/sacroil iitis vs other pathology. I did give her exercises to do at home. # Trochanteric bursitis, left -This is part of the pain in her left hip -Injected with betamethasone today 11/23/2024 without complication Follow up in 2 months 10/30/2024 Acute bronchitis, unspecified organism (ICD-10 - J20.9) Rest and drink more liquids, especially water. You may use a humidifier or vaporizer to help keep the drainage moist. Slge-oii-eibyhul Nasal Saline may help the stuffy and runny nose. Use Ibuprofen and or Tylenol as needed for fever, chills, body aches or pain. Children 5 years old should not be given xvea-uge-blxnagd cough and cold medications such as guaifenesin and dextromethorphan. If you're over age 5, you may try qpom-wsy-papealw cold medications such as guaifenesin and dextromethorphan, or multi-symptom cold reliever such as Dayquil to help reduce the symptoms. Antibiotics have been prescribed. You should take these until completed and follow the directions. Antibiotics can sometimes cause upset stomach, and in rare cases, serious allergic reactions or serious gastrointestinal problems. If you start having severe abdominal pain, severe vomiting, or bloody diarrhea, you should be reevaluated by your physician or urgent care immediately. Follow up with your Primary Care Provider or return to clinic if symptoms do not improve within 3-5 days. If you develop severe symptoms such as shortness of breath, repeated vomiting, coughing up blood, or chest pain you should go to the emergency room or call 911 11/23/2024 Trochanteric bursitis, left hip (ICD-10 - M70.62) # Left hip pain and SI joint pain -I have some concern for underlying spondyloarthropat hy -labs reviewed and RF, AGUSTIN antibodies were negative. ESR normal. Antistreptolysin O antibodies were done for what ever reason and positive -X-rays reviewed of the left hip and low back and nondiagnostic -She has been doing physical therapy for pelvic floor and has included treatment of her left hip. -Plan: Labs ordered for further evaluation. X-ray ordered of the SI joint. If no evidence of sacroiliitis, we will pursue MRI of the SI joint and left hip to evaluate for synovitis/sacroil iitis vs other pathology. I did give her exercises to do at home. # Trochanteric bursitis, left -This is part of the pain in her left hip -Injected with betamethasone today 11/23/2024 without complication Follow up in 2 months Plan Of Treatment Pending Test Test Name Order Date CMP (COMPLETE METABOLIC PANEL) SED RATE (ESR) 10/09/2024 Echocardiogram 10/11/2024 MRI Brain w/wo contrast * 03/13/2024 MRI Hip LT w/o contrast 11/23/2024 MRI Pelvis w/wo contrast 11/23/2024 RHEUMATOID PANEL 10/09/2024 RHEUMATOID PANEL 07/23/2024 Protein 24 Hour Urine 10/11/2024 US ARTHROCENTESIS, WITH US GUIDANCE 05/17 US Renal and Bladder 10/11/2024 ANTI-DNA DS AB 07/31/2024 ANTISTREPTOLYSIN O AB (ASO) 07/31/2024 CBC AUTO DIFF 06/18/2025 FERRITIN 06/18/2025 IRON AND TIBC 06/18/2025 PROF CHEM 8 (BAS METB) 06/18/2025 SED RATE WESTERGREN 07/23/2024 US ARTERY LEG QUINCY 07/19/2024 US IVELISSE DOP LEG LT 07/19/2024 US VENOUS DOPPLER L ARM 03/22/2024 XR HIP LT 2 3V W PELVIS 07/19/2024 XR LSPINE MIN 4 VIEWS 07/19/2024 US arterial duplex UE BI 03/22/2024 CT HIP LEFT WO CONTRAST 07/26/2024 Next Appt Details Provider Name:Yanni Durand , 06/11/2026 08:30:00 AM, [address] [place], [address], Insurance Providers Payer Name Payer Address Payer Phone Subscriber Number Group Number Insured Name Patient Relationship to Insured Coverage Start Date Coverage End Date [employer] ACC[employer] PPO PLUS LOCAL PLAN [address] [place] [address] [id number] Kimberly Silverman Self - patient is the insured 3 Medications Administered Medication Instructions Date of Administration Dosage Notes Betamethasone Acetate 11/23/2024 1 mL Medical (General) History Medical History History ICD Code abdominal pain constipation migraines anxiety depression Surgical History Surgery Date(Month/Year) partial hysterectomy diagnostic lap APPENDECTOMY 03/2023 Thrombectomy with stent 02/05 cystoscopy colonoscopy 2016 Hospitalization History Reason Date(Month/Year) see above
--- OUTSIDE RECORDS SUMMARY | 2025-06-27 07:31 | XMS_ITS | Encounter Summary ---
Author Organization [employer] Address [facility] [id number] [address] [place] [address] Care Team Providers Care Elevator Tender Name Role Phone Dank Alvarez MD Primary Care Provider [phone] Encounter Details Date Type Department Care Team (Late st Contact Info) Description 05/10/2025 Telephone [facility] [address] [place] [address] aJni Bridges MD [address], [facility] [address] [place] [address] Social History Tobacco Use Types Packs/Day Years Used Date Smoking Tobacco: Former Cigarettes Smokeless Tobacco: Never Alcohol Use Standard Drinks/Week Comments Not Currently 0 (1 standard drink = 0.6 oz pur e alcohol) [facility] Utilities Answer Date Recorded In the past [address] [employer], gas, oil, or water [employer] threatened to shut off services in your [...] Info) Description 05/27/2026 8:30 AM EDT Appointment [facility] - Vascular [address] [place] [phone] Jani Bridges MD [address], [address] [address] 06/06/2026 8:30 AM EDT Office Visit [facility] [address] [place] [address] Jani Bridges MD [address], [address] [address] documented as of this encounter Visit Diagnoses Not on filedocumented in this encounter Additional Health Concerns Assessment Noted Time PHQ-9 Depression Total Score: 0 01/23/20 7:47 PM EDT documented as of this encounter Care Teams Elevator Tender Relationship Specialty Start Date End Date Dank Alvarez MD PCP - General 02/09/24 documented as of this encounter
--- OUTSIDE RECORDS SUMMARY | 2025-06-27 07:31 | XMS_ITS | Clinical Summary ---
Author Organization [employer] [facility] Address [id number] [address] 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; 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; Acute deep vein thrombosis (DVT) of iliac vein of left lower extremity ([facility]) 05/29/2025 Travel 05/23/2025 10:00 AM EDT Ancillary Procedure [facility] [address] [place] [phone] Pain 05/10/2025 Telephone [facility] [place] [address] Jani Bridges MD 05/07/2025 Orders Only [facility] [place] [address] Nabila Strong CMA 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); 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; Acute deep vein thrombosis (DVT) of iliac vein of left lower extremity ([facility] 05/07/2025 Telephone [facility] [place] [phone] Kaity Newman from Last 3 Months Immunizations No known immunizations Social History Tobacco Use Types Packs/Day Years Used Date Smoking Tobacco: Former Cigarettes Smokeless Tobacco: Never Tobacco Cessation:Counseling Given: Not Answered Alcohol Use Standard Drinks/Week Comments Not Currently 0 (1 standard drink = 0.6 oz pur e alcohol) [facility] Utilities Answer Date Recorded In the past 12 months has [employer], gas, oil, or water [employer] threatened to shut off services in your [...] Info) Description 05/27/2026 8:30 AM EDT Appointment [facility] - Vascular [address] [place] [phone] Jani Bridges MD [address], [address] [address] 06/06/2026 8:30 AM EDT Office Visit [facility] [place] [address] Jani Bridges MD [address], [facility] [address] [place] [address] Health Maintenance Due Date Last Done Comments DTaP,Tdap and Td Vaccines (6 - Tdap) 02/14/2019 02/13/2019, 07/11/1997, 06/23/1993, Additional history exists COVID-19 Vaccine (2023-2 5 season) 2024 05/13/2021, 04/22/2021 Depression Screening 01/22/2025 01/23/2024 Influenza Vaccine 07/16/2025 Adult BMI Screening 05/31/2026 05/31/2025 Tobacco Screening 05/31/2026 05/31/2025 Pap Smear 07/31/2027 07/31/2024, 08/24/2023 Medical Devices Implanted Type Area Delinquency Counselor Device Identifier Shelf Expiration Date Model / Serial / Lot Stent Vsc 18mm X 100mm Venous Nitinol Slf Expanding Abre - [id number] Implanted:Qty: 1 on 01/24/2024 by Jani Bridegs MD at [facility] Stent Left: Vena Cava [employer] [facility] 12/16/2026 [id number] / / [id number] Procedures Procedure Name Priority Date/Time Associated Diagnosis Comments VASC IVC/ILIAC DUPLEX COMPLETE Routine 05/23/2025 10:00 AM EDT Pain from Last 3 Months Results * Vas IVC/iliac duplex complete (05/23/2025 10:00 AM EDT) us Scanning Provider External CV VASCULAR ORDERABLE S Final Result [facility] from Last 3 Months Insurance ANTH Advance Directives * Full Code (Latest Code Status on File) Date Activated Date Inactivated Comments 01/23/2024 2:36 PM 01/25/2024 4:20 PM Care Teams Experimental Box Tester Relationship Specialty Start Date End Date Dank Alvarez MD PCP - General 02/09/24
--- OUTSIDE RECORDS SUMMARY | 2025-06-27 07:31 | XMS_ITS | Encounter Summary ---
Author Organization [employer] Address [id number] [address] [place] [address] Care Team Providers Care Flue Gas Analyst Name Role Phone Dakn Alvarez MD Primary Care Provider [phone] Encounter Details Date Type Department Care Team (Late st Contact Info) Description 02/14/2024 Orders Only [facility] [address] [place] [address] Josiane Arroyo LPN Social History Tobacco Use Types Packs/Day Years Used Date Smoking Tobacco: Former Cigarettes Smokeless Tobacco: Never Alcohol Use Standard Drinks/Week Comments Not Currently 0 (1 standard drink = 0.6 oz pur e alcohol) [facility] Utilities Answer Date Recorded In the [...] Info) Description 05/27/2026 8:30 AM EDT Appointment [facility] - Vascular [address] [place] [address] Jani Bridges MD [address] [address] 06/06/2026 8:30 AM EDT Office Visit [facility] [address] [place] [address] Jani Bridges MD [address] [address] documented as of this encounter Visit Diagnoses Not on filedocumented in this encounter Additional Health Concerns Assessment Noted Time PHQ-9 Depression Total Score: 0 01/23/20 24 7:47 PM EDT documented as of this encounter Care Teams Flue Gas Analyst Relationship Specialty Start Date End Date Dank Alvarez MD PCP - General 02/09/24 documented as of this encounter
--- OUTSIDE RECORDS SUMMARY | 2025-06-27 07:31 | XMS_ITS | Encounter Summary ---
Author Organization [employer] Address [facility] [id number] [address] [place] [address] Care Team Providers Care Clinical Lab Technologist Name Role Phone Dank Alvarez MD Primary Care Provider [phone] Encounter Details Date Type Department Care Team (Late st Contact Info) Description 05/15/2024 Orders Only [facility] [address] [place] [address] Jani Bridges MD [address], [facility] [address] [place] [address] Social History Tobacco Use Types Packs/Day Years Used Date Smoking Tobacco: Former Cigarettes Smokeless Tobacco: Never Alcohol Use Standard Drinks/Week Comments Not Currently 0 (1 standard drink = 0.6 oz pur e alcohol) [facility] Utilities Answer Date Recorded In the past 12 months has e [employer], gas, oil, or water [employer] threatened to shut off services in your [...] Description 05/27/2026 8:30 AM EDT Appointment [facility] - Vascular [address] [place] [address] Jani Bridges MD [address], [address] [place] [address] 06/06/2026 8:30 AM EDT Office Visit [facility] [address] [place] [address] Jani Bridges MD [address], [address] [place] [address] documented as of this encounter Procedures Procedure [...] documented as of this encounter Care Teams Clinical Lab Technologist Relationship Specialty Start Date End Date Dank Alvarez MD PCP - General 02/09/24 documented as of this encounter
--- OUTSIDE RECORDS SUMMARY | 2025-06-27 07:31 | XMS_ITS | Encounter Summary ---
Author Organization [employer] Address [facility] [id number] [address] 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 Acute deep vein thrombosis (DVT) of iliac vein of left lower extremity ([facility]) Procedures Vas IVC/iliac duplex complete Jani Bridges MD [address] [place] [address] Phone: tel: fax: Referral ID Status Reason Start Date Expiration Date V isits Requested Visits Authorized [id number] Authorized 05/07/2025 05/07/2026 1 1 Encounter Details Date Type Department Care Team (Late st Contact Info) Description 05/07/2025 Orders Only [facility] [address] [place] [address] Nabila Strong CMA 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); 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; Acute deep vein thrombosis (DVT) of iliac vein of left lower extremity ([facility]) Social History Tobacco Use Types Packs/Day Years Used Date Smoking Tobacco: Former Cigarettes Smokeless Tobacco: Never Alcohol Use Standard Drinks/Week Comments Not Currently 0 (1 standard drink = 0.6 oz pur e alcohol) [facility] Utilities Answer Date Recorded In the [...] EDT Appointment [facility] - Vascular [address] [place] [address] Jani Bridges MD [address], [address] [address] 06/06/2026 8:30 AM EDT Office Visit [facility] [place] [address] [place] [address] Jani Bridges MD [address], [address] [address] Scheduled Orders Name Type Priority Associated Diagnoses [...] documented as of this encounter Care Teams Door To Door Salesperson Relationship Specialty Start Date End Date Dank Alvarez MD PCP - General 02/09/24 documented as of this encounter
--- OUTSIDE RECORDS SUMMARY | 2025-06-27 07:31 | XMS_ITS | Encounter Summary ---
Author Organization [employer] Address [facility] [id number] [address] 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 ([facility]) Social History Tobacco Use Types Packs/Day Years Used Date Smoking Tobacco: Former Cigarettes Smokeless Tobacco: Never Alcohol Use Standard Drinks/Week Comments Not Currently 0 (1 standard drink = 0.6 oz pur e alcohol) [facility] Utilities Answer Date Recorded In the past 12 months has th [employer], gas, oil, or water company threatened [...] 05/27/2026 8:30 AM EDT Appointment [facility] - Vascular [address] [place] [address] Jani Bridges MD [address], [address] [address] 06/06/2026 8:30 AM EDT Office Visit [facility] [address] [place] [address] Jani Bridges MD [address], [address] [place] [address] documented as of this encounter Visit Diagnoses Diagnosis 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
--- OUTSIDE RECORDS SUMMARY | 2025-06-27 07:31 | XMS_ITS | Encounter Summary ---
Author Organization [employer] Address [id number] [address] [place] [address] Care Team Providers Care Bilingual Office Assistant Name Role Phone Dank Alvarez MD Primary Care Provider [phone] Encounter Details Date Type Department Care Team (Late st Contact Info) Description 05/07/2025 Telephone [facility] [address] [place] [phone] Kaity Newman Social History Tobacco Use Types Packs/Day Years Used Date Smoking Tobacco: Former Cigarettes Smokeless Tobacco: Never Alcohol Use Standard Drinks/Week Comments Not Currently 0 (1 standard drink = 0.6 oz pur e alcohol) [facility] Utilities Answer Date Recorded In [...] iliac duplex/IVC. She needs order sent to [facility]. Fax number is [phone]. Please send over as pt has upcoming appt with Dr. Bridges on 05/24. Pt would like a call back when completed [phone] is best number for Tawana. * Telephone Encounter - Nabila Strong CMA - 05/07/2025 1:56 PM EDT Put order in and called patient and let her know its been faxed, Let her know to give them a coupledays , then call to get scheduled * Telephone Encounter - Mireya Peace - 05/07/2025 1:56 PM EDT Patient is calling because [facility] is asking that the last office visit note be sent for them to start prior authorization for her test. [employer] faxed office visit note and order together as requested by patient. documented in this encounter Plan of Treatment Upcoming Encounters Date Type Department Care Team (Late st Contact Info) Description 05/27/2026 8:30 AM EDT Appointment [facility] - Vascular [address] [place] [address] Jani Bridges MD [address], [address] [address] 06/06/2026 8:30 AM EDT Office Visit [facility] [address] [place] [address] Jani Bridges MD [address], [facility] [address] [place] [address] documented as of this encounter Visit Diagnoses Not on filedocumented in this encounter Additional Health Concerns Assessment Noted Time PHQ-9 Depression Total Score: 0 01/23/20 24 7:47 PM EDT documented as of this encounter Care Teams Bilingual Office Assistant Relationship Specialty Start Date End Date Dank Alvarez MD PCP - General 02/09/24 documented as of this encounter
--- OUTSIDE RECORDS SUMMARY | 2025-06-27 07:31 | XMS_ITS | Encounter Summary ---
Author Organization [employer] Address [facility] [id number] [address] [place] [address] Care Team Providers Care Cuff Knitter Name Role Phone Dank Alvarez MD Primary Care Provider [phone] Encounter Details Date Type Department Care Team (Late st Contact Info) Description 01/24/2024 Orders Only [facility] [address] [place] [phone] Transcribe, Orders Support User Pain (Primary Dx) Social History Tobacco Use Types Packs/Day Years Used Date Smoking Tobacco: Former Cigarettes Smokeless Tobacco: Never Alcohol Use Standard Drinks/Week Comments Not Currently 0 (1 standard drink = 0.6 oz pur e alcohol) [facility] Utilities Answer Date Recorded In the [...] 8:30 AM EDT Appointment [facility] - Vascular [address] [place] [address] Jani Bridges MD [address], [address] [address] 06/06/2026 8:30 AM EDT Office Visit [facility] [address] [place] [address] Jani Bridges MD [address], [place] [place] [address] documented as of this encounter Results * Vas venous duplex lwr single left (01/23/2024 10:20 AM EDT) us Scanning Provider External CV VASCULAR ORDERABLE S Final Result [facility] documented in this encounter Visit Diagnoses Diagnosis Pain- Primary Generalized pain documented in this encounter Additional Health Concerns Assessment Noted Time PHQ-9 Depression Total Score: 0 01/23/20 24 7:47 PM EDT documented as of this encounter Care Teams Cuff Knitter Relationship Specialty Start Date End Date Dank Alvarez MD PCP - General 02/09/24 documented as of this encounter
--- OUTSIDE RECORDS SUMMARY | 2025-06-27 07:31 | XMS_ITS | Encounter Summary ---
Author Organization [facility] Address [address] [place] [address] Care Team Providers Care Non Categorical Preschool Teacher Name Role Phone Dank Alvarez MD Primary Care Provider [phone] Deborah Perez [facility] Unavailable [phone] Encounter Details Date Type Department Care Team (Late Contact Info) Description 08/09/2024 Abstract [facility] [address] [place] [address] Andre Treviño DO [address], [place] [address] Social History Tobacco Use Types Packs/Day Years [...] 10:00 AM EDT Office Visit MERLE MONTERO [facility] [place] [id number] Andre Treviño DO [address], [facility] documented as of this encounter Visit Diagnoses Not on filedocumented in this encounter Care Teams Non Categorical Preschool Teacher Relationship Specialty Start Date End Date Dank Alvarez MD PCP - General Family Medicine 03/24/23 Deborah Perez, [facility] [address] [place] [address] Performance Reporter Behavioral Health 01/08/25 05/07/25 documented as of this encounter
--- OUTSIDE RECORDS SUMMARY | 2025-06-27 07:31 | XMS_ITS | Encounter Summary ---
Author Organization [employer] [facility] Address [id number] [address] [place] [address] Care Team Providers Care Pharmacy Buyer Name Role Phone Dank Alvarez MD Primary Care Provider [phone] Encounter Details Date Type Department Care Team (Late st Contact Info) Description 05/11/2024 Orders Only [facility] [address] [place] [address] Jani Bridges MD [address], [address] [address] Social History Tobacco Use Types Packs/Day Years Used Date Smoking Tobacco: Former Cigarettes Smokeless Tobacco: Never Alcohol Use Standard Drinks/Week Comments Not Currently 0 (1 standard drink = 0.6 oz pur e alcohol) [facility] Utilities Answer Date Recorded In the past 12 months has e [employer], gas, oil, or water [employer] threatened to shut off services in your [...] 05/27/2026 8:30 AM EDT Appointment [facility] [place] - [facility] [address] [place] [address] Jani Bridges MD [address], [address] [place] [address] 06/06/2026 8:30 AM EDT Office Visit [facility] [address] [place] [address] Jani Bridges MD [address], [address] [place] [address] documented as of this encounter Procedures Procedure [...] documented as of this encounter Care Teams Pharmacy Buyer Relationship Specialty Start Date End Date Dank Alvarez MD PCP - General 02/09/24 documented as of this encounter
--- OUTSIDE RECORDS SUMMARY | 2025-06-27 07:31 | XMS_ITS | CCD ---
Author Organization [facility] Care Team Providers Care Project Asst Name Role Phone RAIN ., DR MARY Attending Unavailable JAUNY ., DR MARY Admitting Unavailable RAIN ., DR MARY Primary Care Unavailable RAIN ., DR MARY Consulting Unavailable SARAI WILKINS Consulting Unavailable LAVON ELIZALDE Consulting Unavailable SISTER, CUCA Consulting Unavailable ARTURO II, LUL Consulting Unavailable TAMLYN ., DL Consulting Unavailable KARASIFilipe ., DR HENAO Admitting Unavailabl e KARASIFilipe [...] Unavailable ADDISON, MOHAMED F Attending Unavailable USMAN RODRIGEZ Primary Care Unavailable ADDISON, MOHAMED F Attending Unavailable USMAN RODRIGEZ Referring Unavailable USMAN RODRIGEZ Primary Care Unavailable ADDISON, MOHAMED F Attending Unavailable USMAN RODRIGEZ Referring Unavailable USMAN RODRIGEZ Primary Care Unavailable Usman Rodrigez Primary Care Physician Usman Rodrigez MD Primary Care Provider Usman Rodrigez MD Primary Care Provider Sydnee Alvarez PA-C Attending Provider Usman Rodrigez MD Primary Care Provider [phone] Usman Rodrigez Primary Care Unavailable Sydnee Alvarez Attending Unavailable Sydnee Alvarez Admitting Unavailable Usman Rodrigez MD Primary Care Provider [phone] Usman Rodrigez MD Primary Care Provider [phone] Chris [facility], Theresa Martinez Unavailable [phone] ANDRE TREVIÑO Attending Unavailable CHRIS, THERESA Martinez Attending Unavailable BHARTI AL Attending Unavailable CHRIS, THERESA Martinez Attending Unavailable ANDRE TREVIÑO Attending Unavailable CHRIS, THERESA Martinez Attending Unavailable ANDRE TREVIÑO Attending Unavailable THERESA PEREZ Attending Unavailable Julien HOYOS Referring Unavailable SYDNEE ALVAREZ Attending Unavailable SYDNEE ALVAREZ Attending Unavailable HOYOSJulien Admitting Unavailable HOYOSJulien Attending Unavailable HOYOSJulien Referring Unavailable HOYOSJulien Attending Unavailable Julien HOYOS Referring Unavailable USMAN RODRIGEZ Referring Unavailable USMAN RODRIGEZ Primary Care Unavailable JANI BRIDGES Attending Unavailable USMAN RODRIGEZ Referring Unavailable USMAN RODRIGEZ Primary Care Unavailable Allergies Allergy Classification Reported Allergen(s) Allergy Type Date of Onset Reaction(s) Facility (1 source) No Known Medication Allergies; Translations: [No Known Medication Allergies] Propensity to adverse reactions (disorder) [facility] Repository Medications Current Medications Medication Drug Class(es) Dates Sig (Normalized) Sig (Original) acetaminophen 500 mg oral tablet (20 sources) Start: 01-25-2024 take 2 tablets by mouth every six hours acetaminophen (TYLENOL EXTRA STRENGTH) 500 mg tablet Take 2 tablets (1,000 mg total) by mouth every 6 (six) hours. 30 tablet 01/25/2024 Active amoxicillin 875 mg / clavulanate 125 mg oral tablet (2 sources) Penicillin-class Antibacterial Start: 04-03-2025 End: 04-13-2025 take 1 tablet by mouth in the morning amoxicillin-clavul anate (Augmentin) 875-125 MG tablet Indications: Nipple discharge , Nipple infection in female Take 1 tablet (875 mg) by mouth in the morning and 1 tablet (875 mg) before bedtime. Do all this for 10 days. 20 tablet 04/03/2025 04/13/2025 Active apixaban 2.5 mg oral tablet (20 sources) Factor Xa Inhibitor Start: 05-15-2025 ELIQUIS 2.5 mg tablet Take 1 tablet (2.5 mg total) by mouth. 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 60 tablet 3 04/27/2024 Active Start: 01-25-2024 take 2 tablets by mo [facility] twice daily, then take 1 tablet by mouth twice daily Eliquis DVT/PE Starter Pack 5 MG tablet therapy pack Take 2 tablets by mouth twice daily for 7 days, then take 1 tablet twice daily 01/25/2024 Active Start: 01-25-2024 take 2 tablets by mo [facility] twice daily, then take 1 tablet by mouth twice daily apixaban (ELIQUIS DVT-PE TREAT 30D START) 5 mg (74 tabs) tablets,dose pack tablet Take 2 tablets by mouth twice daily for 7 days, then take 1 tablet twice daily 74 tablet 01/25/2024 Active Start: 01-25-2024 take 2 tablets by mo ut twice daily, then take 1 tablet by mouth twice daily apixaban (ELIQUIS DVT-PE TREAT 30D START) 5 mg (74 tabs) tablets,dose pack tablet Take 2 tablets by mouth twice daily for 7 days, then take 1 tablet twice daily 74 tablet 0 01/25/2024 Active aspirin 81 mg chewable tablet (12 sources) Platelet Aggregation Inhibitor, Nonsteroidal Anti-inflammatory Drug Start: 03-02-2025 aspirin 81 mg chewable tablet CHEW 1 TABLET (81 MG TOTAL) AND SWALLOW IN THE MORNING. 90 tablet 30 03/02/2025 Active Start: 08-08-2024 [facility] ASP[facility] 81 MG CHEWABLE TAB [facility] ASP[facility]IN 81 MG CHEWABLE TAB Start Date: 08/08/24 Status: Ordered Repeat number: 1 Start: 08-08-2024 [facility] ASP[facility] 81 MG CHEWABLE [...] Active cyclobenzaprine hydrochloride 10 mg oral tablet (8 sources) Muscle Relaxant Start: 09-04-2024 take 0.5 [...] cystoscopy, # 1 tab(s), Refills(s) 0, Pharmacy: [facility]/pharmacy #[id number], 158, cm, 08/08/24 11:39:00 EDT, Height/Length Dosing, [...] minutes after. 60 capsule 1 07/31/2024 09/29/2024 gabapentin 300 mg oral capsule (20 sources) Anti-epileptic Agent Start: 05-26-2024 gabapentin (Neurontin) 300 MG capsule 1 capsule 05/26/2024 Active lactobacillus acidophilus [id number] unt / pectin 100 mg oral tablet (15 sources) take 1 tablet by mouth once daily at breakfast acidophilus-pect in, citrus 25 million cell -100 mg tablet Take 1 tablet by mouth daily with breakfast. Active End: 07-31-2024 take 1 tablet by mouth at mealtime Lactobacillus Acid-Pectin (Acidophilus/[place] Pectin) tablet Take 1 tablet by mouth [...] Daily, # 30 tab(s), Refills(s) 6, Pharmacy: [facility]/pharmacy #[id number], 158, cm, 08/08/24 11:39:00 EDT, Height/Length Dosing, 60, kg, 08/08/24 11:39:00 EDT, Weight Dosing Start Date: 10/03/24 Status: Ordered Nature's Bounty Probiotic (4 sources) Start: 08-08-2024 Ganesh Fausty Probiotic Oral, Daily Start Date: 08/08/24 Status: Ordered Repeat number: 1 Start: 08-08-2024 Ganesh Faust y Probiotic Oral, Daily Start Date: 08/08/24 Status: [...] Active oxyCODONE hydrochloride 5 mg oral tablet (15 sources) Opioid Agonist Start: 01-25-2024 End: 07-31-2024 [...] Active phenazopyridine hydrochloride 100 mg oral tablet (16 sources) Start: 07-31-2024 phenazopyridine (Pyridium) 100 MG tablet Indications: Chronic bladder pain Take 1 tablet (100 mg) by mouth 3 (three) times a day as needed for bladder spasms for up to 9 doses 9 tablet 07/31/2024 Active Probiotic tablet delayed-release (20 sources) Probiotic tablet delayed-release 1 (one) time each day at the same time. Active Completed/Discontinued Medications Medication Drug Class(es) Dates Sig (Normalized) Sig (Original) acetaminophen 325 mg / HYDROcodone bitartrate 5 mg oral tablet (9 sources) Opioid Agonist Start: 01-07-2024 End: 07-31-2024 HYDROcodone-acetam inophen ([place]) 5-325 MG tablet TAKE 1 TABLET EVERY [...] procedure, # 2 tab(s), Refills(s) 0, Pharmacy: [facility]/pharmacy #[id number], 158, cm, 08/08/24 11:39:00 EDT, Height/Length Dosing, 60, kg, 08/08/24 11:39:00 EDT, Weight Dosing Start Date: 08/21/24 Status: Ordered ethinyl estradiol 0.03 mg / levonorgestrel 0.15 mg oral tablet (15 sources) Progestin, Estrogen, Progestin-containin g Intrauterine Device [...] mouth in the morning. 0 Active fluconazole 150 mg oral tablet (11 sources) Azole Antifungal Start: 04-17-2025 End: 04-17-2025 fluconazole (Diflucan) 150 MG tablet Indications: Yeast infection Take 1 tablet (150 mg) by mouth 1 (one) time for 1 dose Repeat in 7 days if symptoms persist. 2 tablet 04/17/2025 04/17/2025 Start: 04-03-2025 End: 04-13-2025 take 1 tablet by mouth once daily fluconazole (Diflucan) 100 MG tablet Indications: Antibiotic-induced yeast infection Take 1 tablet (100 mg) by mouth Daily for 10 days 10 tablet 04/03/2025 04/13/2025 Active Start: 08-09-2024 End: 09-06-2024 take 1 tablet by mouth every other day fluconazole (Diflucan) 100 MG tablet Indications: Yeast infection Take 1 tablet (100 mg) by mouth every other day for 28 days 14 tablet 08/09/2024 09/06/2024 Active Start: 08-08-2024 Diflucan Start Date: 08/08/24 Status: Ordered ibuprofen 800 mg oral tablet (9 sources) Nonsteroidal Anti-inflammatory Drug Start: 01-07-2024 End: 07-31-2024 ibuprofen 800 MG tablet TAKE 1 TABLET EVERY 8 HOURS 01/07/2024 07/31/2024 Discontinued Problems Active Problems Problem Classification Problem Date Documented Date Episodic/Chronic Adjustment disorders (1 source) Adjustment disorder with depressed mood; Translations: [Adjustment disorder with depressed mood] 09-20-2024 Chronic Anxiety disorders (9 sources) Anxiety disorder, unspecified; Translations: [Anxiety] Onset: 04-08-2023 08-08-2024 Chronic Aortic and peripheral arterial embolism or thrombosis (1 source) 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 Appendicitis and other appendiceal conditions (1 source) Unspecified acute appendicitis; Translations: [UNSPECIFIED ACUTE APPENDICITIS] Onset: 04-08-2023 Episodic Coagulation and hemorrhagic disorders (4 sources) 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 Diseases of white blood cells (4 sources) Leukocytosis 08-08-2024 Chronic Endometriosis (20 sources) Endometriosis (clinical); Translations: [Endometriosis, unspecified] Onset: 11-25-2023 08-08-2024 Chronic Genitourinary symptoms and ill-defined conditions (20 sources) Bladder pain; Translations: [Chronic bladder pain] Onset: 07-31-2024 Chronic Headache; including migraine (6 sources) Migraine; Translations: [Cluster headache] 08-08-2024 Chronic Immunizations and screening for infectious disease (5 sources) Encounter for screening for human papillomavirus (HPV); Translations: [Exposure to sexually transmissible disorder] Onset: 07-26-2022 08-31-2024 Episodic Inflammatory diseases of female pelvic organs (5 sources) Acute vaginitis; Translations: [Acute vaginitis] Onset: 08-08-2024 Episodic Mood disorders (2 sources) Depressive disorder 12-26-2024 Chronic Mycoses (4 sources) Opportunistic mycosis; Translations: [Candidiasis, unspecified] 04-03-2025 Episodic Nonmalignant breast conditions (6 sources) Pain of breast; Translations: [Mastodynia] 04-03-2025 Episodic Other diseases of veins and lymphatics (11 sources) Iliac vein compression syndrome; Translations: [Compression of vein] Onset: 02-11-2024 04-27-2024 Episodic Other female genital disorders (4 sources) Vaginal discharge; Translations: [Other specified noninflammatory disorders of vagina] 08-31-2024 Episodic Peripheral and visceral atherosclerosis (7 sources) Unspecified atherosclerosis of [place] arteries of extremities, other extremity; Translations: [Occlusion of artery of upper extremity] Onset: 04-27-2024 04-27-2024 Chronic Residual codes; unclassified (1 source) Acquired absence of both cervix and uterus; Translations: [ACQUIRED ABSENCE BOTH CERVIX AND UTERUS] Onset: 04-08-2023 Episodic Residual codes; unclassified (2 sources) Pain, unspecified; Translations: [Pain, unspecified] Onset: 01-24-2024 Episodic Substance-related disorders (1 source) Nicotine dependence, cigarettes, uncomplicated; Translations: [NICOTINE DEPEND CIGARETTES UNCOMP] Onset: 04-08-2023 Chronic Unclassified (1 source) Extensive DVT with phlegmasia Onset: 01-23-2024 Unclassified (1 source) Acute deep vein thrombosis (DVT) of iliac vein of left lowe Onset: 04-27-2024 Unclassified (1 source) Acute deep vein thrombosis of left iliac vein 05-31-2025 Past or Other Problems Problem Classification Problem Date Documented Da te Episodic/Chronic Abdominal pain (20 sources) Unspecified abdominal pain; Translations: [Pelvic and perineal pain] Onset: 04-03-2023 Episodic Genitourinary symptoms and ill-defined conditions (2 sources) Urinary symptoms ; Translations: [Unspecified symptoms and signs involving the genitourinary system] 07-10-2024 Episodic Mood disorders (6 sources) Mood disorders Onset: 01-23-2024 01-23-2024 Other diseases of veins and lymphatics (2 sources) Compression of vein; Translations: [Compression of vein] Onset: 02-11-2024 Episodic Phlebitis; thrombophlebitis and thromboembolism (17 sources) Acute embolism and thrombosis of left iliac vein; Translations: [Acute embolism and thrombosis of unspecified deep veins of unspecified lower extremity] Onset: 01-23-2024 08-08-2024 Episodic Results Test Name Value Interpretation Reference Range Facility US.doppler Thoracic and Abdo rinku Aorta and Inferior Vena Cava and Illiac vesselson 05-23-2025 [place] [address] Ultrasound Report Signed Patient: TAWANA SILVERMAN MR#: [id number] : 1990 Acct:[id number] Age/Sex: 35 / F ADM Date: 05/23/25 Loc: US Attending Dr: Jani Bridges M.D. Ordering Physician: Jani Bridges M.D. Date of Service: 05/23/25 Procedure(s): US duplex IVC Accession Number(s): [id number] cc: Usman Rodrigez M.D.; Jani Bridges M.D. [place] [address] Patient Name: TAWANA SILVERMAN MRN: [id number] date: 1990 Sex: F Assigned Patient Location: US Current Patient Location: US Accession/Order Number: [id number] Exam Date: 05/23/2025 10:35 Report Date: 05/23/2025 [...] Lay M.D. 05/23/2025 10:38 AM Dictation Location: [place] [address] Electronically authenticated by: [id number] Y Date: 05/23/2025 10:38 Dictated By: Gaby Lay M.D. Signed By: 05/23/25 1041 DD/ 1038 TD/TT: Special Events Assistant: [facility] Radiology, Radiologist, MD - 05/23/2025 [place] [address] Ultrasound Report Signed Patient: TAWANA SILVERMAN MR#: [id number] : 1990 Acct:[id number] Age/Sex: 35 / F ADM Date: 05/23/25 Loc: Attending Dr: Jani Bridges M.D. Ordering Physician: Jani Bridges M.D. Date of Service: 05/23/25 Procedure(s): US duplex IVC Accession Number(s): [id number] cc: Usman Rodrigez M.D.; Jani Bridges M.D. The [place] [id number] Patient Name: TAWANA SILVERMAN MRN: [facility]:[id number] date: 1990 Sex: F Assigned Patient Location: US Current Patient Location: US Accession/Order Number: [id number] Exam Date: 05/23/2025 10:35 Report Date: 05/23/2025 [...] Lay M.D. 05/23/2025 10:38 AM Dictation Location: [place] [address] Electronically authenticated by: [id number] Y Date: 05/23/2025 10:38 Dictated By: Gaby Lay M.D. Signed By: 05/23/25 1041 DD/ 1038 TD/TT: Special Events Assistant: [facility] Education Everytime Radiology Study observation (narrative) [facility] Education Everytime US.doppler Thoracic and Abdo rinku Aorta and Inferior Vena Cava and Illiac vesselsOrdered By: Radiologist Radiology on [facility]-23-2025 [facility]rology Office/Clinic Noteon 12-26-2024 Urology Office/Clinic Note [...] has improved. Has been doing PFPT at [facility] since August. Noticing a lot of improvement [...] cystoscopy, # 1 tab(s), Refills(s) 0, Pharmacy: [facility]/pharmacy #[id number], 158, cm, 08/08/24 11:39:00 EDT, Height/Length Dosing, 60, kg, 08/08/24 11:39:00 EDT, Weight Dosing E&M of Est. Patient Low 20-29 Min 48154 Urnls Dip Stick Auto w/o Microscopy POC [id number] Follow-up With When Contact Information [facility] Additional Instructions: Only if needed/new problems arise. [...] 02/13/2019 Recorded 2024-08-08: TENIVAC GIVEN BY DR RODRIGEZ IN [place] poliovirus vaccine, inactivated 07/11/1997 Recorded measles/mumps/rubella virus [...] Dipstick: 2+ (100 mg/dl) (12/26/24 10:01:00) Specific [place] Urine Dipstick: 1.025 (12/26/24 10:01:00) Urine Appearance Urine Dipstick: Clear (12/26/24 10:01:00) Urine Color Urine Dipstick: Yellow (12/26/24 10:01:00) Urobilinogen Urine Dipstick: Normal 0.2-1 EU/dl (12/26/24 10:01:00) pH Urine Dipstick: 6.5 (12/26/24 10:01:00) Normal [facility] Comment on above: Result Comment: Elec tronically Signed By: JAMARI GOVEA, SYDNEE Crowe\Date and Time Signed: 12/26/24 10:31 EST Main OR Preoperative Recordo n 11-13-2024 Main OR Preoperative Record Main OR Preoperative Record Holding Area Document Type FTURO Summary Primary Physician: Julien HOYOS MD Finalized Date/Time: 11/13/24 16:38:17 Pt. Name: TAWANA SILVERMAN /Sex: 1990 Female Med Rec #: [id number] Physician: Julien HOYOS MD Financial #: [id number] Pt. Type: O Room/Bed: / Admit/Disch: 10/03/24 [...] Complaints of Pain: No Skin Integrity Intact, [place], Warm, & Dry Vitals - EU Blood Pressure 109/72 Pulse 80 bpm Respirations 20 br/min SPO2 97 % Additional None RN Reviewed Yes Specimens Collected Last Modified By: Elizabet Grimm RN 10/03/24 09:45:24 Finalized By: GAGE Howell RN, Ruthann Document Signatures Signed By: Shalonda Jane LPN 10/03/24 09:28 GAGE Howell RN, Ruthann 11/13/24 16:38 Normal [facility] Main OR Intraoperative Recor don 10-03-2024 Main OR Intraoperative Record Main OR Intraoperative Record IntraOp Document Type FTURO Summary Primary Physician: Julien HOYOS MD Finalized Date/Time: 10/03/24 10:05:10 Pt. Name: TAWANA SILVERMAN /Sex: 1990 Female Med Rec #: [id number] Physician: Julien HOYOS MD Financial #: [id number] Pt. Type: O Room/Bed: / Admit/Disch: 10/03/24 [...] Nel Pearson Role Performed Surgeon - Primary Assistant Professor Of Art - Primary Scrub - Primary Time In [...] Outcomes Met? Yes PAIN Last Modified By: Elizabet Grimm RN 10/03/24 09:44:08 Post-Care Text: The patient is [...] ROMAIN NAVARRO, Julien Smalls, Verified (If Participants Elizabet Grimm RN Applicable) Yusuf Mosley CST, Kimberly A Time [...] Document Signatures Signed By: Elizabet Grimm RN P 10/03/24 10:05 Normal [facility] Operative Reporton Operative Report Operative Report Patient: [...] The Bladder is: No bladder tumors. No ANEGL. No A. V.. The ureteral orifices: Show efflux of clear urine. The Urethra was dilated to: 30 [place] w/ sounds. Devices Implanted: None. Removal: Cystoscope is removed, The patient tolerated it well. Postoperative Information Discharge: Patient is discharged home with antibiotic coverage, Follow up arranged. She will start Myrbetriq 50 mg daily. Follow-up will be in 4 months. Normal [facility] Comment on above: Result Comment: Elec tronically Signed By: Julien HOYOS MD\.br\Date and Time Signed: 10/03/24 10:11 EST IGP,APTIMA HPV,AGE GDLNon AGE GDLN ACOG TESTING Note . [facility] Comment on above: TESTS RESULT FLAG UN ITS REF RANGE LAB Clinician Provided Cytology Information Source.............Vagina No. of containers..01 ThinPrep Vial Age Leena LAZARO Eneida... FLAG LEGEND: L-Low Normal,H-High Normal,LL-Alert Low,HH-Alert High <-Panic Low,>-Panic High,A-Abnormal,AA-Critical Abnormal Performed at: 01 =[address] [address] Sandy Lemon MD, HPV APTIMA Negative Negative [facility] Comment on above: This nucleic acid am plification test detects fourteen high- risk HPV types (16,18,31,33,35,39,45,51,52,56,58,59,66,68) without differentiation. Performed at: =[address] [id number] Utility Person: Sandy Lemon MD, Phone: [phone] Performed at: [facility] [address] [place] [id number] Utility Person: Holden Croft MD, Phone: [phone] IGP, APTIMA HPV, RFX 16/18,45 Note . [facility] Comment on above: TESTS RESULT FLAG UN ITS REF RANGE LAB DIAGNOSIS: 02 NEGATIVE FOR INTRAEPITHELIAL LESION OR MALIGNANCY. Specimen adequacy: 02 Satisfactory for evaluation. Performed by: 02 Sola Aviles, Diversity Intern (ASCP) . 02 Note: Note 03 The [...] High,A-Abnormal,AA-Critical Abnormal Performed at: 02 [facility] [address] [place] [address] Holden Croft MD, 03 WB [facility] [address] [address] Sandy Lemon MD, SPATULA-ALONE VAGINA [facility] Healthcar e No Panel Informationon 07-12 [...] [facility] MICHEAL GLABRATA Not detected [facility] MICHEAL KRUSEI 0.000 [facility] [...] - righton 04-03-2024 Radiology Study observation (narrative) [facility] US.doppler Upper extremity v ein - rightOrdered By: Janet Almaguer on 04-03-2024 Radiology Study observation (narrative) [facility] US.doppler Lower extremity a rtery - righton 03-31-2024 [facility] US.doppler Upper extremity v ein - rightOrdered By: Janet Almaguer on 03-30-2024 [facility] BASIC METABOLIC PANLon 01-24 Anion gap [Moles/Vol] 7 mmol/L Normal 5-15 [facility] Comment on above: Performed By: #### C BCA, PINR, 37493-2, BMP #### [facility] ([id number]) [address], [address] [place] [address] Calcium [Mass/Vol] 8.7 mg/dL Normal 8.5-10.5 [facility] Comment on above: Performed By: #### C BCA, PINR, 48493-9, BMP #### [facility] ([id number]) [address], [address] [place] [address] Chloride [Moles/Vol] 106 mmol/L Normal 98-109 [facility] Comment on above: Performed By: #### C BCA, PINR, 48961-9, BMP #### [facility] ([id number]) [address], [address] [place] [address] CO2 [Moles/Vol] 23 mmol/L Normal 22-32 [facility] Comment on above: Performed By: #### C BCA, PINR, 25617-0, BMP #### [facility] ([id number]) [address], [address] [place] [address] Creatinine [Mass/Vol] 0.57 mg/dL Normal 0.40-1.00 [facility] Comment on above: Result Comment: METH OD TRACEABLE TO IDMS STANDARD Performed By: #### C BCA, PINR, 30221-4, BMP #### [facility] ([id number]) [address], [address] [place] [address] eGFR (CKD-EPI) NON-RACE DEPENDENT >90 Normal >59 [facility] Comment on above: Result Comment: Reported eGFR is based on the CKD-EPI 2020 equation that does not use a race coefficient. Performed By: #### C BCA, PINR, 63325-6, BMP #### [facility] ([id number]) [address], [address] [place] [address] Glucose [Mass/Vol] 139 mg/dL High 65-99 [facility] Comment on above: Performed By: #### C BRENNON PINR, 14101-6, BMP #### [facility] ([id number]) [address], [address] [place] [address] Potassium [Moles/Vol] 4.3 mmol/L Normal 3.5-5.0 [facility] Comment on above: Performed By: #### C BRENNON, PINR, 32203-3, BMP #### [facility] ([id number]) [address] [place] [address] Sodium [Moles/Vol] 136 mmol/L Normal 134-146 [facility] Comment on above: Performed By: #### C BRENNON PINR, 34973-9, BMP #### [facility] ([id number]) [address], [address] [place] [address] Urea nitrogen [Mass/Vol] 6 mg/dL Normal 5-23 [facility] Comment on above: Performed By: #### C BRENNON, PINR, 88974-5, BMP #### [facility] ([id number]) [address], [address] [place] [address] CBC AND AUTO DIFFon 01-24-20 24 ABSOLUTE BASOPHIL 0.0 X10E9/L Normal 0.0-0.2 [facility] Comment on above: Performed By: #### C BRENNON PINR, 01031-9, BMP #### [facility] ([id number]) [address], [address] [place] [address] ABSOLUTE NEUTROPHIL 2.9 X10E9/L Normal 1.5-6.6 [facility] Comment on above: Performed By: #### C BRENNON, PINR, 89146-0, BMP #### [facility] ([id number]) [address], [address] [place] [address] Basophils/100 WBC (Bld) 0.1 % Normal [facility] Comment on above: Performed By: #### C SADAF WILLETT, 92678-3, BMP #### [facility] ([id number]) [address], [address] [place] [address] Eosinophils (Bld) [#/Vol] 0.0 10*3/uL Normal 0.0-0.4 [facility] Comment on above: Performed By: #### C BRENNON PINSlim, 48733-6, BMP #### [facility] ([id number]) [address], [facility] [address] [place] [address] Eosinophils/100 WBC (Bld) 0.0 % Normal [facility] Comment on above: Performed By: #### C SADAF WILLETT, 12978-0, BMP #### [facility] ([id number]) [address], [facility] [address] [place] [address] Erythrocyte distribution width (RBC) [Ratio] 11.8 % Normal 11.5-15.0 [facility] Comment on above: Performed By: #### C SADAF WILLETT, 20198-4, BMP #### [facility] ([id number]) [address], [facility] [address] [place] [address] Hematocrit (Bld) [Volume fraction] 35.5 % Normal 35-47 [facility] Comment on above: Performed By: #### SADAF Langford BCA, 87537-8, BMP #### [facility] ([id number]) [address], [facility] [address] [place] [address] Hemoglobin (Bld) [Mass/Vol] 12.3 g/dL Normal 11.7-15.5 [facility] Comment on above: Performed By: #### PARDEEP Langford BCAR, 28023-7, BMP #### [facility] ([id number]) [address], [facility] [address] [place] [address] Lymphocytes (Bld) [#/Vol] 0.4 10*3/uL Low 1.0-3.5 [facility] Comment on above: Performed By: #### C BCA, PINR, 64208-4, BMP #### [facility] ([id number]) [address] [place] [address] Lymphocytes/100 WBC (Bld) 13.1 % Normal [facility] Comment on above: Performed By: #### C BRENNON, PINR, 24110-3, BMP #### [facility] ([id number]) [address], [address] [place] [address] MCH (RBC) [Entitic mass] 32.3 pg Normal 27-34 [facility] Comment on above: Performed By: #### C BRENNON, PINR, 32736-4, BMP #### [facility] ([id number]) [address], [facility] [address] [place] [address] MCHC (RBC) [Mass/Vol] 34.6 g/dL Normal 32-36 [facility] Comment on above: Performed By: #### C BCA, PINR, 41935-1, BMP #### [facility] ([id number]) [address], [facility] [address] [place] [address] MCV (RBC) [Entitic vol] 94 fL Normal 80-100 [facility] Comment on above: Performed By: #### C BRENNON, PINR, 44047-4, BMP #### [facility] ([id number]) [address], [address] [place] [address] Monocytes (Bld) [#/Vol] 0.1 10*3/uL Normal 0-0.9 [facility] Comment on above: Performed By: #### C BCA, PINR, 92186-4, BMP #### [facility] ([id number]) [address], [address] [place] [address] Monocytes/100 WBC (Bld) 2.4 % Normal [facility] Comment on above: Performed By: #### C BCA, PINR, 50669-0, BMP #### [facility] ([id number]) [address], [address] [place] [address] Neutrophils/100 WBC (Bld) 84.4 % Normal [facility] Comment on above: Performed By: #### C BRENNON, PINR, 26707-3, BMP #### [facility] ([id number]) [address], [address] [place] [address] Platelet mean volume (Bld) [Entitic vol] 9.1 fL Normal 7-12 [facility] Comment on above: Performed By: #### C BRENNON PINR, 45417-8, BMP #### [facility] ([id number]) [address], [address] [place] [address] Platelets (Bld) [#/Vol] 142 10*3/uL Low 150-450 [facility] Comment on above: Performed By: #### Anastasiya WILLETT, PINR, 89154-0, BMP #### [facility] ([id number]) [address], [address] [place] [address] RBC COUNT 3.79 X10E12/L Low 3.80-5.20 [facility] Comment on above: Performed By: #### Anastasiya WILLETT, PINR, 63512-3, BMP #### [facility] ([id number]) [address], [facility] [address] [place] [address] WBC (Bld) [#/Vol] 3.4 10*3/uL Low 4.0-11.0 [facility] Comment on above: Performed By: #### Anastasiya WILLETT, PINR, 36158-9, BMP #### [facility] ([id number]) [address], [address] [place] [address] Heparin unfractionated Chrom ogenic method Qn (PPP)on 01-25-2024 ANTI XA UFH 0.68 IU/mL Normal 0.30-0.70 [facility] Comment on above: Result Comment: Opti mal time for testing is 6 hrs post dosage This test is specific for monitoring patients on UFH, and is not recommended for use with other Anti-Xa medications. Performed By: #### C BRENNON PINR, 01870-8, BMP #### [facility] ([id number]) [address], [address] [place] [address] ANTI CARDIOLIPIN AB IGG IGA IGMon 01-24-2024 MELBA IgA <2.0 Normal 0-19.9 [facility] Comment on above: Performed By: #### A Chucky HEATONG #### [facility] ([id number]) [address], [address] [place] [address] MELBA IgG <1.6 Normal 0-19.9 [facility] Comment on above: Performed By: #### A Chucky HEATONG #### [facility] ([id number]) [address], [address] [place] [address] MELBA IgM <1.5 Normal 0-19.9 [facility] Comment on above: Performed By: #### Chucky SHUKLAG #### [facility] ([id number]) [address], [address] [place] [address] BASIC METABOLIC PANLon 01-23 Anion gap [Moles/Vol] 8 mmol/L Normal 5-15 [facility] Comment on above: Performed By: #### 3 274-8, CBCA, BMP #### [facility] ([id number]) [address] [address] [place] [address] Calcium [Mass/Vol] 8.0 mg/dL Low 8.5-10.5 [facility] Comment on above: Performed By: #### 3 274-8, CBCA, BMP #### [facility] ([id number]) [address], [address] [place] [address] Chloride [Moles/Vol] 106 mmol/L Normal 98-109 [facility] Comment on above: Performed By: #### 3 274-8, CBCA, BMP #### [facility] ([id number]) [address] [address] [place] [address] CO2 [Moles/Vol] 22 mmol/L Normal 22-32 [facility] Comment on above: Performed By: #### 3 274-8, CBCA, BMP #### [facility] ([id number]) [address] [address] Creatinine [Mass/Vol] 0.53 mg/dL Normal 0.40-1.00 [facility] Comment on above: Result Comment: METH OD TRACEABLE TO IDMS STANDARD Performed By: #### 3 274-8, CBCA, BMP #### [facility] ([id number]) [address], [address] [address] eGFR (CKD-EPI) NON-RACE DEPENDENT >90 Normal >59 [facility] Comment on above: Result Comment: Reported eGFR is based on the CKD-EPI 2020 equation that does not use a race coefficient. Performed By: #### 3 274-8, CBCA, BMP #### [facility] ([id number]) [address] [address] [place] [address] Glucose [Mass/Vol] 76 mg/dL Normal 65-99 [facility] Comment on above: Performed By: #### 3 274-8, CBCA, BMP #### [facility] ([id number]) [address] [address] Potassium [Moles/Vol] 3.8 mmol/L Normal 3.5-5.0 [facility] Comment on above: Performed By: #### 3 274-8, CBCA, BMP #### [facility] ([id number]) [address] [address] [place] [address] Sodium [Moles/Vol] 136 mmol/L Normal 134-146 [facility] Comment on above: Performed By: #### 3 274-8, CBCA, BMP #### [facility] ([id number]) [address], [address] [place] [address] Urea nitrogen [Mass/Vol] 10 mg/dL Normal 5-23 [facility] Comment on above: Performed By: #### 3 274-8, CBCA, BMP #### [facility] ([id number]) [address], [address] [place] [address] BETA-2 GP1 AB PANELon 2023 BETA-2 GP1 IgA <2.0 Normal 0.0-19.9 [facility] Comment on above: Performed By: #### C BCA, PINR, 15751-9, BMP #### [facility] ([id number]) [address], [address] [place] [address] BETA-2 GP1 IgG <1.4 Normal 0.0-19.9 [facility] Comment on above: Performed By: #### C BCA, PINR, 43654-0, BMP #### [facility] ([id number]) [address], [address] [place] [address] BETA-2 GP1 IgM <1.5 Normal 0.0-19.9 [facility] Comment on above: Performed By: #### C BCA, PINR, 19298-9, BMP #### [facility] ([id number]) [address], [address] [place] [address] CBC AND AUTO DIFFon 01-24-20 24 ABSOLUTE BASOPHIL 0.0 X10E9/L Normal 0.0-0.2 [facility] Comment on above: Performed By: #### 3 274-8, CBCA, BMP #### [facility] ([id number]) [address], [address] [place] [address] ABSOLUTE NEUTROPHIL 3.7 X10E9/L Normal 1.5-6.6 [facility] Comment on above: Performed By: #### 3 274-8, CBCA, BMP #### [facility] ([id number]) [address], [address] [place] [address] Basophils/100 WBC (Bld) 0.4 % Normal [facility] Comment on above: Performed By: #### 3 274-8, CBCA, BMP #### [facility] ([id number]) [address], [facility] [address] [place] [address] Eosinophils (Bld) [#/Vol] 0.2 10*3/uL Normal 0.0-0.4 [facility] Comment on above: Performed By: #### 3 274-8, CBCA, BMP #### [facility] ([id number]) [address], [facility] [address] [place] [address] Eosinophils/100 WBC (Bld) 2.9 % Normal [facility] Comment on above: Performed By: #### 3 274-8, CBCA, BMP #### [facility] ([id number]) [address], [facility] [address] [place] [address] Erythrocyte distribution width (RBC) [Ratio] 12.3 % Normal 11.5-15.0 [facility] Comment on above: Performed By: #### 3 274-8, CBCA, BMP #### [facility] ([id number]) [address] [place] [address] Hematocrit (Bld) [Volume fraction] 36.4 % Normal 35-47 [facility] Comment on above: Performed By: #### 3 274-8, CBCA, BMP #### [facility] ([id number]) [address], [address] [place] [address] Hemoglobin (Bld) [Mass/Vol] 12.4 g/dL Normal 11.7-15.5 [facility] Comment on above: Performed By: #### 3 274-8, CBCA, BMP #### [facility] ([id number]) [address] [address] [place] [address] Lymphocytes (Bld) [#/Vol] 1.9 10*3/uL Normal 1.0-3.5 [facility] Comment on above: Performed By: #### 3 274-8, CBCA, BMP #### [facility] ([id number]) [address], [facility] [address] [place] [address] Lymphocytes/100 WBC (Bld) 29.7 % Normal [facility] Comment on above: Performed By: #### 3 274-8, CBCA, BMP #### [facility] ([id number]) [address] [address] [place] [address] MCH (RBC) [Entitic mass] 32.5 pg Normal 27-34 [facility] Comment on above: Performed By: #### 3 274-8, CBCA, BMP #### [facility] ([id number]) [address], [facility] [address] [place] [address] MCHC (RBC) [Mass/Vol] 34.2 g/dL Normal 32-36 [facility] Comment on above: Performed By: #### 3 274-8, CBCA, BMP #### [facility] ([id number]) [address], [facility] [address] [place] [address] MCV (RBC) [Entitic vol] 95 fL Normal 80-100 [facility] Comment on above: Performed By: #### 3 274-8, CBCA, BMP #### [facility] ([id number]) [address] [address] Monocytes (Bld) [#/Vol] 0.5 10*3/uL Normal 0-0.9 [facility] Comment on above: Performed By: #### 3 274-8, CBCA, BMP #### [facility] ([id number]) [address], [address] [place] [address] Monocytes/100 WBC (Bld) 8.2 % Normal [facility] Comment on above: Performed By: #### 3 274-8, CBCA, BMP #### [facility] ([id number]) [address], [address] [place] [address] Neutrophils/100 WBC (Bld) 58.8 % Normal [facility] Comment on above: Performed By: #### 3 274-8, CBCA, BMP #### [facility] ([id number]) [address], [address] [place] [address] Platelet mean volume (Bld) [Entitic vol] 8.7 fL Normal 7-12 [facility] Comment on above: Performed By: #### 3 274-8, CBCA, BMP #### [facility] ([id number]) [address], [address] [place] [address] Platelets (Bld) [#/Vol] 128 10*3/uL Low 150-450 [facility] Comment on above: Performed By: #### 3 274-8, CBCA, BMP #### [facility] ([id number]) [address], [address] [place] [address] RBC COUNT 3.83 X10E12/L Normal 3.80-5.20 [facility] Comment on above: Performed By: #### 3 274-8, CBCA, BMP #### [facility] ([id number]) [address], [address] [place] [address] WBC (Bld) [#/Vol] 6.4 10*3/uL Normal 4.0-11.0 [facility] Comment on above: Performed By: #### 3 274-8, CBCA, BMP #### [facility] ([id number]) [address], [address] [place] [address] Heparin unfractionated Chrom ogenic method Qn (PPP)on 01-24-2024 ANTI XA UFH 0.47 IU/mL Normal 0.30-0.70 [facility] Comment on above: Result Comment: Opti mal time for testing is 6 hrs post dosage This test is specific for monitoring patients on UFH, and is not recommended for use with other Anti-Xa medications. Performed By: #### 3 274-8, CBCA, BMP #### [facility] ([id number]) [address] [address] dRVVT/dRVVT.excess phospholi pid Coag (PPP) [Ratio]on 01-24-2024 DILUTE VERONIKA'[facility] Negative Normal [facility] Comment on above: Performed By: #### C BRENNON, PINR, 98769-0, BMP #### [facility] ([id number]) [address] [address] BASIC METABOLIC PANLon 01-22 Anion gap [Moles/Vol] 11 mmol/L Normal 5-15 [facility] Comment on above: Performed By: #### C BCA, PINR, 57662-4, BMP #### [facility] ([id number]) [address] [address] Calcium [Mass/Vol] 8.3 mg/dL Low 8.5-10.5 [facility] Comment on above: Performed By: #### C BCA, PINR, 05813-2, BMP #### [facility] ([id number]) [address] [address] [place] [address] Chloride [Moles/Vol] 106 mmol/L Normal 98-109 [facility] Comment on above: Performed By: #### C BCA, PINR, 07742-8, BMP #### [facility] ([id number]) [address], [address] [place] [address] CO2 [Moles/Vol] 21 mmol/L Low 22-32 [facility] Comment on above: Performed By: #### C BRENNON PINR, 70458-8, BMP #### [facility] ([id number]) [address], [facility] [address] [place] [address] Creatinine [Mass/Vol] 0.65 mg/dL Normal 0.40-1.00 [facility] Comment on above: Result Comment: METH OD TRACEABLE TO IDMS STANDARD Performed By: #### C BRENNON, PINR, 31697-4, BMP #### [facility] ([id number]) [address], [address] [address] eGFR (CKD-EPI) NON-RACE DEPENDENT >90 Normal >59 [facility] Comment on above: Result Comment: Reported eGFR is based on the CKD-EPI 2020 equation that does not use a race coefficient. Performed By: #### C BRENNON, PINR, 52193-8, BMP #### [facility] ([id number]) [address], [address] [place] [address] Glucose [Mass/Vol] 78 mg/dL Normal 65-99 [facility] Comment on above: Performed By: #### C BCA, PINR, 41628-0, BMP #### [facility] ([id number]) [address], [facility] [address] [place] [address] Potassium [Moles/Vol] 3.9 mmol/L Normal 3.5-5.0 [facility] Comment on above: Performed By: #### C BCA, PINR, 71195-2, BMP #### [facility] ([id number]) [address], [address] [place] [address] Sodium [Moles/Vol] 138 mmol/L Normal 134-146 [facility] Comment on above: Performed By: #### C BCA, PINR, 38527-7, BMP #### [facility] ([id number]) [address], [address] [place] [address] Urea nitrogen [Mass/Vol] 11 mg/dL Normal 5-23 [facility] Comment on above: Performed By: #### C BRENNON, PINR, 41077-7, BMP #### [facility] ([id number]) [address], [address] [place] [address] CBC AND AUTO DIFFon 01-23-20 24 ABSOLUTE BASOPHIL 0.0 X10E9/L Normal 0.0-0.2 [facility] Comment on above: Performed By: #### C BRENNON, PINR, 80817-4, BMP #### [facility] ([id number]) [address], [address] [place] [address] ABSOLUTE NEUTROPHIL 6.6 X10E9/L Normal 1.5-6.6 [facility] Comment on above: Performed By: #### Anastasiya WILLETT, PINR, 08474-7, BMP #### [facility] ([id number]) [address], [address] [place] [address] Basophils/100 WBC (Bld) 0.3 % Normal [facility] Comment on above: Performed By: #### Anastasiya WILLETT, PINR, 13205-4, BMP #### [facility] ([id number]) [address], [address] [place] [address] Eosinophils (Bld) [#/Vol] 0.1 10*3/uL Normal 0.0-0.4 [facility] Comment on above: Performed By: #### C BRENNON, PINR, 16780-2, BMP #### [facility] ([id number]) [address], [address] [place] [address] Eosinophils/100 WBC (Bld) 0.8 % Normal [facility] Comment on above: Performed By: #### Anastasiya WILLETT, PINR, 99078-0, BMP #### [facility] ([id number]) [address], [address] [place] [address] Erythrocyte distribution width (RBC) [Ratio] 12.4 % Normal 11.5-15.0 [facility] Comment on above: Performed By: #### C BRENNON, PINR, 10159-9, BMP #### [facility] ([id number]) [address] [address] [place] [address] Hematocrit (Bld) [Volume fraction] 39.4 % Normal 35-47 [facility] Comment on above: Performed By: #### C BRENNON, PINR, 70187-9, BMP #### [facility] ([id number]) [address], [facility] [address] [place] [address] Hemoglobin (Bld) [Mass/Vol] 13.8 g/dL Normal 11.7-15.5 [facility] Comment on above: Performed By: #### Anastasiya WILLETT, PINR, 63049-2, BMP #### [facility] ([id number]) [address], [facility] [address] [place] [address] Lymphocytes (Bld) [#/Vol] 1.9 10*3/uL Normal 1.0-3.5 [facility] Comment on above: Performed By: #### Anastasiya WILLETT, PINR, 24596-6, BMP #### [facility] ([id number]) [address] [address] [place] [address] Lymphocytes/100 WBC (Bld) 20.6 % Normal [facility] Comment on above: Performed By: #### C BCA, PINR, 20892-9, BMP #### [facility] ([id number]) [address] [address] [place] [address] MCH (RBC) [Entitic mass] 32.7 pg Normal 27-34 [facility] Comment on above: Performed By: #### Anastasiya BCA, PINR, 13323-2, BMP #### [facility] ([id number]) [address] [place] [address] MCHC (RBC) [Mass/Vol] 34.9 g/dL Normal 32-36 [facility] Comment on above: Performed By: #### C BRENNON, PINR, 27494-1, BMP #### [facility] ([id number]) [address], [address] [place] [address] MCV (RBC) [Entitic vol] 94 fL Normal 80-100 [facility] Comment on above: Performed By: #### C BRENNON, PINR, 29057-9, BMP #### [facility] ([id number]) [address] [place] [address] Monocytes (Bld) [#/Vol] 0.6 10*3/uL Normal 0-0.9 [facility] Comment on above: Performed By: #### Anastasiya WILLETT, PINR, 21998-4, BMP #### [facility] ([id number]) [address], [address] [place] [address] Monocytes/100 WBC (Bld) 6.0 % Normal [facility] Comment on above: Performed By: #### Anastasiya WILLETT, PINR, 17765-2, BMP #### [facility] ([id number]) [address], [address] [place] [address] Neutrophils/100 WBC (Bld) 72.3 % Normal [facility] Comment on above: Performed By: #### C BRENNON, PINR, 47639-7, BMP #### [facility] ([id number]) [address] [place] [address] Platelet mean volume (Bld) [Entitic vol] 8.4 fL Normal 7-12 [facility] Comment on above: Performed By: #### Anastasiya WILLETT, PINR, 87880-9, BMP #### [facility] ([id number]) [address] [place] [address] Platelets (Bld) [#/Vol] 156 10*3/uL Normal 150-450 [facility] Comment on above: Performed By: #### C BRENNON PINR, 39794-5, BMP #### [facility] ([id number]) [address] [place] [address] RBC COUNT 4.21 X10E12/L Normal 3.80-5.20 [facility] Comment on above: Performed By: #### C BRENNON, PINR, 75340-7, BMP #### [facility] ([id number]) [address] [place] [address] WBC (Bld) [#/Vol] 9.1 10*3/uL Normal 4.0-11.0 [facility] Comment on above: Performed By: #### C BRENNON PINR, 22083-2, BMP #### [facility] ([id number]) [address] [place] [address] CT CTV ABD AND PELVISon 01-13 CT [...] Hill MD on 01/23/2024 4:56 PM Normal [facility] Heparin unfractionated Chrom ogenic method Qn (PPP)on 01-23-2024 ANTI XA UFH 0.44 IU/mL Normal 0.30-0.70 [facility] Comment on above: Result Comment: Opti mal time for testing is 6 hrs post dosage This test is specific for monitoring patients on UFH, and is not recommended for use with other Anti-Xa medications. Performed By: #### 3 274-8 #### [facility] ([id number]) [address], [address] [place] [address] PROTIME AND INRon 01-23-2024 INR Coag (PPP) [Relative time] 1.1 {INR} Normal 0.8-1.1 [facility] Comment on above: Performed By: #### C SADAF WILLETT, 25193-9, BMP #### [facility] ([id number]) [address], [address] [place] [address] PT Coag (PPP) [Time] 12.3 s Normal 9.8-13.2 [facility] Comment on above: Performed By: #### C SADAF WILLETT, 08371-3, BMP #### [facility] ([id number]) [address], [address] [place] [address] aPTT Coag (PPP) [Time]on aPTT Coag (Bld) [Time] 51 s High 26-37 [facility] Comment on above: Performed By: #### C SADAF WILLETT, 70945-4, BMP #### [facility] ([id number]) [address] [place] [address], [address] [place] [address] AMYLASEon 04-03-2023 Amylase [Catalytic activity/Vol] 62 U/L Normal 25-115 [facility] Comment on above: Performed By: #### L BHARTI OVALLES ####[facility] [id number] [place], [place] [address]VtDr. Reece Garg CBC AUTO DIFFon 04-03-2023 BASO # 0.0 103/ul Normal 0.0-0.1 [facility] Comment on above: Performed By: #### C BC #### [facility] [address] [address] [address] Recee Garg Basophils/100 WBC (Bld) 0.3 % Normal 0.2-2.0 [facility] Comment on above: Performed By: #### C BC #### [facility] [address] [address] [address] Reece Garg EO # 0.1 103/ul Normal 0.0-0.7 [facility] Comment on above: Performed By: #### C BC #### [facility] [address] [address] [address] Reece Garg Eosinophils/100 WBC (Bld) 0.6 % Critically low 0.9-7.0 [facility] Comment on above: Performed By: #### C BC #### [facility] [address] [address] [address] Reece Garg Erythrocyte distribution width (RBC) [Ratio] 11.9 % Normal 11.0-15.0 [facility] Comment on above: Performed By: #### C BC #### [facility] [address] [address] [address] Reece Garg Hematocrit (Bld) [Volume fraction] 37.7 % Normal 36.0-48.0 [facility] Comment on above: Performed By: #### C BC #### [facility] [address] [address] [address] Reece Garg Hemoglobin (Bld) [Mass/Vol] 12.9 g/dL Normal 12.0-16.0 [facility] Comment on above: Performed By: #### C BC #### [facility] [address] [place] [address] Dr. Reece Garg IG # 0.05 10e3/ul Critically high 0.00-0.03 [facility] Comment on above: Performed By: #### C BC #### [facility] [address] [place] [address] Dr. Reece Garg IG % 0.4 % Normal 0.0-0.5 [facility] Comment on above: Performed By: #### C BC #### [facility] [address] [place] [address] Dr. Reece Garg LYMPH # 2.3 103/ul Normal 1.2-3.8 [facility] Comment on above: Performed By: #### C BC #### [facility] [address] [place] [address] Dr. Reece Garg Lymphocytes/100 WBC (Bld) 20.8 % Normal 20.5-60.0 [facility] Comment on above: Performed By: #### C BC #### [facility] [address] [place] [address] Dr. Reece Garg MANUAL DIFF REQ NO Normal [facility] Comment on above: Performed By: #### C BC #### [facility] [address] [place] [address] Dr. Reece Garg MCH (RBC) [Entitic mass] 32.3 pg Normal 26.7-34.0 [facility] Comment on above: Performed By: #### C BC #### [facility] [address] [place] [address] Dr. Reece Garg MCHC (RBC) [Mass/Vol] 34.2 g/dL Normal 29.9-35.2 [facility] Comment on above: Performed By: #### C BC #### [facility] [address] [place] [address] Dr. Reece Garg MCV (RBC) [Entitic vol] 94.3 fL Normal 81.0-99.0 [facility] Comment on above: Performed By: #### C BC #### [facility] [address] [address] [address] Reece Garg MONO # 0.6 103/ul Normal 0.3-0.8 [facility] Comment on above: Performed By: #### C BC #### [facility] [address] [address] [address] Reece Garg Monocytes/100 WBC (Bld) 5.3 % Normal 1.7-12.0 [facility] Comment on above: Performed By: #### C BC #### [facility] [address] [place] [address] Dr. Reece Garg NEUT # 8.1 103/ul Critically high 1.4-6.5 [facility] Comment on above: Performed By: #### C BC #### [facility] [address] [place] [address] Dr. Reece Garg Neutrophils/100 WBC (Bld) 72.6 % Normal 43.0-75.0 [facility] Comment on above: Performed By: #### C BC #### [facility] [address] [place] [address] Dr. Reece Garg Platelet mean volume (Bld) [Entitic vol] 10.2 fL Normal 9.5-13.5 [facility] Comment on above: Performed By: #### C BC #### [facility] [address] [place] [address] Dr. Reece Garg PLT 163 103/ul Normal 150-450 [facility] Comment on above: Performed By: #### C BC #### [facility] [address] [place] [address] Dr. Reece Garg RBC 4.00 106/ul Critically low 4.20-5.40 [facility] Comment on above: Performed By: #### C BC #### [facility] [address] [place] [address] Dr. Reece Garg WBC 11.1 103/ul Critically high 4.0-11.0 [facility] Comment on above: Performed By: #### C BC #### [facility] [address] [place] [address] Dr. Reece Garg BASO # 0.0 103/ul Normal 0.0-0.1 [facility] Comment on above: Performed By: #### C BC #### [facility] [address] [address] [address] Reece Garg Basophils/100 WBC (Bld) 0.3 % Normal 0.2-2.0 [facility] Comment on above: Performed By: #### C BC #### [facility] [address] [place] [address] Dr. Reece Garg EO # 0.1 103/ul Normal 0.0-0.7 [facility] Comment on above: Performed By: #### C BC #### [facility] [address] [place] [address] Dr. Reece Grag Eosinophils/100 WBC (Bld) 0.7 % Critically low 0.9-7.0 [facility] Comment on above: Performed By: #### C BC #### [facility] [address] [place] [address] Dr. Reece Garg Erythrocyte distribution width (RBC) [Ratio] 12.0 % Normal 11.0-15.0 [facility] Comment on above: Performed By: #### C BC #### [facility] [address] [place] [address] Dr. Reece Garg Hematocrit (Bld) [Volume fraction] 41.4 % Normal 36.0-48.0 [facility] Comment on above: Performed By: #### C BC #### [facility] [address] [place] [address] Dr. Reece Garg Hemoglobin (Bld) [Mass/Vol] 14.3 g/dL Normal 12.0-16.0 [facility] Comment on above: Performed By: #### C BC #### [facility] [address] [place] [address] Dr. Reece Garg IG # 0.05 10e3/ul Critically high 0.00-0.03 [facility] Comment on above: Performed By: #### C BC #### [facility] [address] [place] [address] Dr. Reece Garg IG % 0.3 % Normal 0.0-0.5 [facility] Comment on above: Performed By: #### C BC #### [facility] [address] [place] [address] Dr. Reece Garg LYMPH # 1.6 103/ul Normal 1.2-3.8 [facility] Comment on above: Performed By: #### C BC #### [facility] [address] [place] [address] Dr. Reece Garg Lymphocytes/100 WBC (Bld) 10.6 % Critically low 20.5-60.0 [facility] Comment on above: Performed By: #### C BC #### [facility] [address] [place] [address] Dr. Reece Garg MANUAL DIFF REQ NO Normal [facility] Comment on above: Performed By: #### C BC #### [facility] [address] [place] [address] Dr. Reece Garg MCH (RBC) [Entitic mass] 32.1 pg Normal 26.7-34.0 [facility] Comment on above: Performed By: #### C BC #### [facility] [address] [place] [address] Dr. Reece Garg MCHC (RBC) [Mass/Vol] 34.5 g/dL Normal 29.9-35.2 [facility] Comment on above: Performed By: #### C BC #### [facility] [address] [place] [address] Dr. Reece Garg MCV (RBC) [Entitic vol] 93.0 fL Normal 81.0-99.0 [facility] Comment on above: Performed By: #### C BC #### [facility] [address] [place] [address] Dr. Reece Garg MONO # 0.7 103/ul Normal 0.3-0.8 [facility] Comment on above: Performed By: #### C BC #### [facility] [address] [place] [address] Dr. Reece Garg Monocytes/100 WBC (Bld) 4.7 % Normal 1.7-12.0 [facility] Comment on above: Performed By: #### C BC #### [facility] [address] [place] [address] Dr. Reece Garg NEUT # 12.9 103/ul Critically high 1.4-6.5 [facility] Comment on above: Performed By: #### C BC #### [facility] [address] [place] [address] Dr. Reece Garg Neutrophils/100 WBC (Bld) 83.4 % Critically high 43.0-75.0 [facility] Comment on above: Performed By: #### C BC #### [facility] [address] [place] [address] Dr. Reece Garg Platelet mean volume (Bld) [Entitic vol] 10.4 fL Normal 9.5-13.5 [facility] Comment on above: Performed By: #### C BC #### [facility] [address] [place] [address] Dr. Reece Garg PLT 194 103/ul Normal 150-450 [facility] Comment on above: Performed By: #### C BC #### [facility] [address] [place] [address] Dr. Reece Garg RBC 4.45 106/ul Normal 4.20-5.40 [facility] Comment on above: Performed By: #### C BC #### [facility] [address] [place] [address] Dr. Reece Garg WBC 15.4 103/ul Critically high 4.0-11.0 [facility] Comment on above: Performed By: #### C BC #### [facility] [address] [place] [address] ABD/PELV W CONon [...] Date: 2023-04-03 01:36 Normal [facility] ER URINE PROFILEon 3 Bilirubin Ql (U) Negative Normal NEGATIVE [facility] Comment on above: Performed By: #### P REGU, ERUR #### [facility] [address] [address] [address] Reece Garg Clarity (U) CLEAR Normal CLEAR [facility] Comment on above: Performed By: #### P REGU, ERUR #### [facility] [address] [address] [address] Reece Garg Color (U) LT. YELLOW Normal YELLOW [facility] Comment on above: Performed By: #### P REGU, ERUR #### [facility] [address] [address] [address] Reece KHAN A micrscopic examination will be performed if indicated. Normal [facility] Comment on above: Performed By: #### P REGU, ERUR #### [facility] [address] [address] [address] Reece Garg Glucose Ql (U) Negative Normal NEGATIVE [facility] Comment on above: Performed By: #### P REGU, ERUR #### [facility] [address] [address] [address] Reece Garg Hemoglobin Ql (U) Negative Normal NEGATIVE [facility] Comment on above: Performed By: #### P REGU, ERUR #### [facility] [address] [address] [address] Reece Garg Ketones Ql (U) 15 mg/dl Abnormal NEGATIVE [facility] Comment on above: Performed By: #### P REGU, ERUR #### [facility] [address] [address] [address] Reece Garg LEUKOCYTES Negative Normal NEGATIVE [facility] Comment on above: Performed By: #### P REGU, ERUR #### [facility] [address] [address] [address] Reece Garg Nitrite Ql (U) Negative Normal NEGATIVE [facility] Comment on above: Performed By: #### P REGU, ERUR #### [facility] [address] [address] [address] Reece Garg pH (U) 5.5 [pH] Normal 5-9 [facility] Comment on above: Performed By: #### P REGU, ERUR #### [facility] [address] [address] [address] Reece Garg SPEC GRAVITY <=1.005 Abnormal 1.005-<=1.025 [facility] Comment on above: Performed By: #### P REGU, ERUR #### [facility] [address] [address] [address] Reece Garg UA PROTEIN Negative Normal NEGATIVE/ TRACE [facility] Comment on above: Performed By: #### P REGU, ERUR #### [facility] [address] [address] [address] Reece Garg UR MICRO IND NOT INDICATED Normal [facility] Comment on above: Performed By: #### P REGU, ERUR #### [facility] [address] [address] [address] Reece Garg Urobilinogen Qn (U) 0.2 {Dariel'U}/dL Normal 0.2 - 1. 0 [facility] Comment on above: Performed By: #### P REGU, ERUR #### [facility] [address] [address] [address] Reece Garg LIPASEon 04-03-2023 Lipase [Catalytic activity/Vol] 62.0 U/L Critically low 73.0-393.0 [facility] Comment on above: Performed By: #### L IPA, BHARTI ####[facility] [address] [address]Dr. Reece Garg MONOon 04-03-2023 Monocytes (Bld) [#/Vol] Negative Normal NEGATIVE [facility] Comment on above: Performed By: #### M JOSE DANIEL #### [facility] [address] [place] [address] Dr. Reece Garg URon 04-03-2023 , QUAL Negative Normal NEGATIVE [facility] Comment on above: Performed By: #### P REGU, ERUR #### [facility] [address] [place] [address] Dr. Reece Garg PROF 14(COMP METB)on 023 Albumin [Mass/Vol] 3.3 g/dL Critically low 3.4-5.[address] [facility] Comment on above: Performed By: #### C MP #### [facility] [address] [place] [address] Dr. Reece Garg Albumin/Globulin [Mass ratio] 1.0 {ratio} Normal [facility] Comment on above: Performed By: #### C MP #### [facility] [address] [place] [address] Dr. Reece Garg ALP [Catalytic activity/Vol] 38 U/L Critically low 46-116 [facility] Comment on above: Performed By: #### C MP #### [facility] [address] [address] [address] Reece Garg ALT [Catalytic activity/Vol] 16 U/L Normal 14-59 [facility] Comment on above: Performed By: #### C MP #### [facility] [address] [address] [address] Reece Garg Anion gap [Moles/Vol] 10.7 mmol/L Normal [facility] Comment on above: Performed By: #### C MP #### [facility] [address] [place] [address] Dr. Reece Garg AST [Catalytic activity/Vol] 10 U/L Critically low 15-37 [facility] Comment on above: Performed By: #### C MP #### [facility] [address] [place] [address] Dr. Reece Garg Bilirubin [Mass/Vol] 1.0 mg/dL Normal 0.2-1.0 [facility] Comment on above: Performed By: #### C MP #### [facility] [address] [place] [address] Dr. Reece Garg Calcium [Mass/Vol] 8.2 mg/dL Critically low 8.5-10.[address] [facility] Comment on above: Performed By: #### C MP #### [facility] [address] [address] [address] Reece Garg Chloride [Moles/Vol] 106 mmol/L Normal 98-107 [facility] Comment on above: Performed By: #### C MP #### [facility] [address] [place] [address] Dr. Reece Garg CO2 [Moles/Vol] 27.0 mmol/L Normal 21.0-32.0 [facility] Comment on above: Performed By: #### C MP #### [facility] [address] [place] [address] Dr. Reece Garg Creatinine [Mass/Vol] 0.77 mg/dL Normal 0.55-1.02 [facility] Comment on above: Performed By: #### C MP #### [facility] [address] [address] [address] Reece Garg EGFR-AF KITTITIAN >60 Normal >=60 [facility] Comment on above: Performed By: #### C MP #### [facility] [address] [address] [address] Reece Garg EGFR-NON AF KITTITIAN >60 Normal >=60 [facility] Comment on above: Performed By: #### C MP #### [facility] [address] [address] [address] Reece Garg Globulin (S) [Mass/Vol] 3.3 g/dL Normal [facility] Comment on above: Performed By: #### C MP #### [facility] [address] [place] [address] Dr. Reece Garg Glucose [Mass/Vol] 102 mg/dL Normal 74-106 [facility] Comment on above: Performed By: #### C MP #### [facility] [address] [address] [address] Reece Garg Potassium [Moles/Vol] 3.7 mmol/L Normal 3.5-5.1 [facility] Comment on above: Performed By: #### C MP #### [facility] [address] [place] [address] Dr. Reece Garg Protein [Mass/Vol] 6.6 g/dL Normal 6.4-8.2 [facility] Comment on above: Performed By: #### C MP #### [facility] [address] [address] [address] Reece Garg Sodium [Moles/Vol] 140 mmol/L Normal 136-145 [facility] Comment on above: Performed By: #### C MP #### [facility] [address] [address] [address] Reece Garg Urea nitrogen [Mass/Vol] 8.0 mg/dL Normal 7.0-18.0 [facility] Comment on above: Performed By: #### C MP #### [facility] [address] [place] [address] Dr. Reece Garg Urea nitrogen/Creatinine [Mass ratio] 10.4 mg/mg Normal [facility] Comment on above: Performed By: #### C MP #### [facility] [address] [place] [address] Dr. Reece Garg PROTIMEon 04-03-2023 INR Coag (PPP) [Relative time] 1.06 {INR} Normal [facility] Comment on above: Performed By: #### P TT, PT #### [facility] [address] [place] [address] Dr. Reece Garg INR GUIDELINES SEE BELOW Normal [facility] Comment on above: Result Comment: JJ RED INR: 2.0 - 3.0 CONDITIONS NOT LISTED BELOW 2.5 - 3.5 FOR PROSTHETIC HEART VALVE REPLACEMENT 2.5 - 3.5 RECURRENT THROMBOSIS Performed By: #### P TT, PT #### [facility] [address] [place] [address] Dr. Reece Garg PT Coag (PPP) [Time] 11.2 s Normal 9.0-11.6 [facility] Comment on above: Performed By: #### P TT, PT #### [facility] [address] [place] [address] Dr. Reece Garg PTTon 04-03-2023 aPTT Coag (Bld) [Time] 28.1 s Normal 22.3-36.2 [facility] Comment on above: Performed By: #### P TT, PT #### [facility] [address] [place] [address] Dr. Reece Garg PAP ACOG PANEL 2: 30 to 65on 07-28-2022 . . Normal [facility] Comment on above: Result Comment: Perf ormed at: WB Performed By: #### [id number] ####[facility] [address] [address]Dr. Reece Garg Age Gdln ACOG Testing 30-65 Normal [facility] Comment on above: Performed By: #### [id number] ####[facility] [address] [id number] Reece Garg DIAGNOSIS: Comment Normal [facility] Comment on above: Result Comment: NEGA TIVE FOR INTRAEPITHELIAL LESION OR MALIGNANCY. Performed at: WB Performed By: #### [id number] ####[facility] [address] [id number][address] Reece Garg HPV Aptima Negative Normal Negative [facility] Comment on above: Result Comment: This nucleic acid amplification test detects fourteen high-risk HPV types (16,18,31,33,35,39,45,51,52,56,58,59,66,68) without differentiation. Performed at: =G Performed By: #### [id number] ####[facility] [address] [place], [place] [address]Dr. Reece Garg Methodology: Comment Normal [facility] Comment on above: Result Comment: This liquid based ThinPrep(R) pap test was screened with the use of an image guided system. Performed at: WB Performed By: #### [id number] ####[facility] [address] [id number] Reece Garg Note: Comment Normal [facility] Comment on above: Result Comment: The Pap smear is a screening test designed to aid in the detection of premalignant and malignant conditions of the uterine cervix. It is not a diagnostic procedure and should not be used as the sole means of detecting cervical cancer. Both false-positive and false-negative reports do occur. . Performed at: WB Performed By: #### [id number] ####[facility] [address] [id number]. Reece Garg Performed by: Comment Normal [facility] Comment on above: Result Comment: Alexandra Cortez, Diversity Intern (ASCP) Performed at: WB Performed By: #### [id number] ####[facility] [address] [id number][address] Reece Garg Specimen adequacy: Comment Normal [facility] Comment on above: Result Comment: Sati sfactory for evaluation. No endocervical component is identified. Performed at: WB Performed By: #### [id number] ####[facility] [address] [place], [place] [address]Dr. Reece Garg VAGINITIS/VAGINOSIS DNA PROB [place] 07-24-2022 Micheal species Negative Normal Negative [facility] Comment on above: Performed By: #### V AGINT #### [facility] [address] [address] [address] Reece Garg Gardnerella vaginalis Positive Abnormal Negative [facility] Comment on above: Performed By: #### V AGINT #### [facility] [address] [address] [address] Reece Garg Trichomonas vaginalis Negative Normal Negative [facility] Comment on above: Performed By: #### V AGINT #### [facility] [address] [address] [address] Reece Garg Vital Signs Date Time Vital Sign Value Performing Clinician Facility 05-31-2025 08:35-0400 Body mass index (BMI) [Ratio] 24.14 kg/m2 Jani Bridges MD Work Phone: [facility] 05-31-2025 08:35-0400 Body weight 59.88 kg Jani Bridges MD Work Phone: [facility] 05-31-2025 08:35-0400 Diastolic blood pressure 68 mm[Hg] Jani Bridges MD Work Phone: [facility] 05-31-2025 08:35-0400 Heart rate 62 /min Jani Bridges MD Work Phone: [facility] 05-31-2025 08:35-0400 Systolic blood pressure 102 mm[Hg] Jani Bridges MD Work Phone: [facility] 04-03-2025 09:37-0400 Body mass index (BMI) [Ratio] 24.51 kg/m2 Andre Hudson DO Work Phone: [facility] 04-03-2025 09:37-0400 Body weight 60.78 kg Andre Hudson DO Work Phone: [facility] 04-03-2025 09:37-0400 Diastolic blood pressure 70 mm[Hg] Ander Hudson DO Work Phone: [facility] 04-03-2025 09:37-0400 Systolic blood pressure 114 mm[Hg] Andre Hudson DO Work Phone: [facility] 12-26-2024 10:07-0500 Blood Pressure Location SYDNEE ALVAREZ [facility] 12-26-2024 10:07-0500 Diastolic blood pressure 90 mm[Hg] SYDNEEMARIELLE ALVAREZ [facility] 12-26-2024 10:07-0500 Heart rate 70 /min SYDNEE ALVAREZ [facility] 12-26-2024 10:07-0500 Systolic blood pressure 130 mm[Hg] SYDNEE JAMARI [facility] 08-31-2024 10:09-0400 Body mass index (BMI) [Ratio] 24.11 kg/m2 Andre Hudson DO Work Phone: [facility] 08-31-2024 10:09-0400 Body weight 59.78 kg Andre Hudson DO Work Phone: [facility] 08-31-2024 10:09-0400 Diastolic blood pressure 70 mm[Hg] Andre Hudson DO Work Phone: [facility] 08-31-2024 10:09-0400 Systolic blood pressure 110 mm[Hg] Andre Hudson DO Work Phone: [facility] 08-08-2024 11:15-0400 Blood Pressure Location SYDNEE ALVAREZ [facility] 08-08-2024 11:15-0400 Diastolic blood pressure 63 mm[Hg] SYDNEE JAMARI [facility] 08-08-2024 11:15-0400 Heart rate 61 /min SYDNEE ALVAREZ [facility] 08-08-2024 11:15-0400 Respiratory rate 19 /min SYDNEE ALVAREZ [facility] 08-08-2024 11:15-0400 Systolic blood pressure 96 mm[Hg] SYDNEE ALVAREZ [facility] 07-31-2024 09:53-0400 Body height 157.5 cm Andre Hudson DO Work Phone: [facility] 07-31-2024 09:53-0400 Body mass index (BMI) [Ratio] 23.96 kg/m2 Andre Hudson DO Work Phone: [facility] 07-31-2024 09:53-0400 Body weight 59.42 kg Andre Hudson DO Work Phone: [facility] 07-31-2024 09:53-0400 Diastolic blood pressure 68 mm[Hg] Andre Hudson DO Work Phone: [facility] 07-31-2024 09:53-0400 Systolic blood pressure 102 mm[Hg] Andre Hudson DO Work Phone: [facility] 07-10-2024 16:25-0400 Body mass index (BMI) [Ratio] 24.29 kg/m2 Bharti RIBEIRO Work Phone: [facility] 07-10-2024 16:25-0400 Body weight 60.24 kg Bharti RIBEIRO Work Phone: [facility] 05-25-2024 08:43-0400 Body height 157.5 cm Jani Bridges MD Work Phone: [facility] 05-25-2024 08:43-0400 Body mass index (BMI) [Ratio] 23.78 kg/m2 Jani Bridges MD Work Phone: [facility] 05-25-2024 08:43-0400 Body weight 58.97 kg Jani Bridges MD Work Phone: [facility] 05-25-2024 08:43-0400 Diastolic blood pressure 68 mm[Hg] Jani Bridges MD Work Phone: [facility] 05-25-2024 08:43-0400 Heart rate 66 /min Jani Bridges MD Work Phone: [facility] 05-25-2024 08:43-0400 SaO2% (BldA) [Mass fraction] 98 % Jani Bridges MD Work Phone: [facility] 05-25-2024 08:43-0400 Systolic blood pressure 97 mm[Hg] Jani Bridges MD Work Phone: [facility] Encounters Encounter Date Encounter Type Care Provider Facility Start: 05-31-2025 End: 05-31-2025 Office outpatient visit 25 minutes Jani Bridges MD Work Phone: [facility] Comment on above: 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 Start: 05-23-2025 End: 05-23-2025 Clinisync Result Encounter Jani Bridges MD Work Phone: [facility] Unsolicited Start: 05-23-2025 End: 05-23-2025 Clinisync Result Encounter Jani Bridges MD Work Phone: [facility] Unsolicited Start: 04-17-2025 End: 04-17-2025 Online digital e/m svc est pt <7 d 5-10 minutes Andre Hudson DO Work Phone: [facility] Comment on above: Yeast infection Start: 04-04-2025 End: 04-04-2025 ambulatory Julien HOYOS Facility: [place] Start: 04-04-2025 End: 04-04-2025 Patient encounter procedure Julien HOYOS [facility] [place] Start: 04-03-2025 End: 04-03-2025 Bamboo flowsheet Andre Hudson DO Work Phone: [facility] Start: 04-03-2025 End: 04-03-2025 Bamboo flowsheet Andre Hudson DO Work Phone: [facility] Start: 04-03-2025 End: 04-03-2025 Office outpatient visit 15 minutes Andre Hudson DO Work Phone: [facility] Comment on above: Nipple pain; Nipple discharge; Nipple infection in female; Antibiotic-induced yeast infection Start: 04-03-2025 End: 04-03-2025 ambulatory ANDRE HUDSON Not Available Start: 03-01-2025 End: 03-02-2025 Refill Jani Bridges MD Work Phone: [facility] Start: 02-19-2025 End: 02-19-2025 ambulatory Usman Rodrigez MD Work Phone: [facility] Work Phone: Start: 02-19-2025 End: 02-19-2025 Discharged Recurring Usman Rodrigez MD Work Phone: [facility] Start: 12-26-2024 End: 12-26-2024 ambulatory Julien HOYOS Facility: [place] Start: 12-26-2024 End: 12-26-2024 Patient encounter procedure SYDNEE ALVAREZ [facility] Start: 10-03-2024 End: 10-03-2024 ambulatory Julien HOYOS Facility[facility] Start: 10-03-2024 End: 10-03-2024 Patient encounter procedure Julien HOYOS [facility] Start: 09-20-2024 End: 09-20-2024 Bamboo flowsheet Theresa Perez [facility] Work Phone: [facility] Start: 09-20-2024 End: 09-20-2024 Bamboo flowsheet Theresa Perez [facility] Work Phone: [facility] Start: 09-20-2024 End: 09-20-2024 Social Work Theresa Perez [facility] Work Phone: [facility] Comment on above: IRVING (generalized anx iety disorder) (CMS/HCC); Adjustment disorder with depressed mood (CMS/HCC) Start: 08-31-2024 End: 08-31-2024 Bamboo flowsheet Andre Hudson DO Work Phone: [facility] Start: 08-31-2024 End: 08-31-2024 Bamboo flowsheet Andre Hudson DO Work Phone: [facility] Start: 08-31-2024 End: 08-31-2024 Office outpatient visit 15 minutes Andre Hudson DO Work Phone: [facility] Comment on above: Vaginal discharge; STD exposure Start: 08-31-2024 End: 08-31-2024 ambulatory ANDRE HUDSON Not Available Start: 08-10-2024 End: 08-10-2024 Bamboo flowsheet Theresa Perez [facility] Work Phone: [facility] Start: 08-10-2024 End: 08-10-2024 Bamboo flowsheet Theresa Perez [facility] Work Phone: [facility] Start: 08-10-2024 End: 08-10-2024 Social Work Theresa Perez [facility] Work Phone: [facility] Comment on above: IRVING (generalized anx iety disorder) ([facility]) Start: 08-08-2024 End: 08-08-2024 ambulatory SYDNEE ALVAREZ Facility:[facility] Start: 08-08-2024 End: 08-08-2024 Patient encounter procedure SYDNEE ALVAREZ [facility] Start: 08-03-2024 ambulatory Julien HOYOS Facility :[facility] Start: 08-03-2024 End: 08-03-2024 ambulatory ANDRE HDUSON Not Available Start: 07-31-2024 End: 07-31-2024 Bamboo [...] 18-39 yrs Andre Hudson DO Work Phone: [facility] Comment on above: Well woman exam with routine gynecological exam; Chronic bladder pain Start: 07-31-2024 End: 07-31-2024 ambulatory ANDRE HUDSON Not Available Start: 07-18-2024 End: 07-18-2024 Bamboo flowsheet Theresa Perez [facility] Work Phone: [facility] Start: 07-18-2024 End: 07-18-2024 Bamboo flowsheet Theresa Perez [facility] Work Phone: [facility] Start: 07-18-2024 End: 07-18-2024 Social Work Theresa Perez [facility] Work Phone: [facility] Comment on above: IRVING (generalized anx iety disorder) ([facility]) Start: 07-10-2024 End: 07-10-2024 Office outpatient visit 15 minutes Bharti RIBEIRO Work Phone: [facility] Comment on above: UTI symptoms; Vaginal discharge; STD exposure Start: 07-10-2024 End: 07-10-2024 ambulatory BHARTI AL Not Available Start: 07-10-2024 End: 07-12-2024 External Result Encounter Bharti RIBEIRO Work Phone: [facility] Unsolicited Start: 07-10-2024 End: 07-12-2024 External Result Encounter Bharti RIBEIRO Work Phone: [facility] Unsolicited Start: 06-29-2024 End: 06-29-2024 Social Work Theresa Martinez Chris [facility] Work Phone: [facility] Comment on above: IRVING (generalized anx iety disorder) ([facility]) Start: 05-25-2024 End: 05-25-2024 Office outpatient visit 25 minutes Jani Bridges MD Work Phone: [facility] Comment on above: 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); Acute deep vein thrombosis (DVT) of iliac vein of left lower extremity ([facility]) Start: 05-25-2024 End: 05-25-2024 ambulatory [facility] Start: 04-27-2024 End: 04-27-2024 Office outpatient visit 25 minutes Jani Bridges MD Work Phone: [facility] Comment on above: 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); 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 ([facility]) Start: 04-27-2024 ambulatory [facility] Start: 04-03-2024 End: 04-11-2024 Orders Only Not In System Ref Prov [facility] Start: 02-10-2024 End: 02-10-2024 Office outpatient visit 15 minutes Jani Bridges MD Work Phone: [facility] Comment on above: Acute deep vein thro mbosis (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); May-Thurner syndrome Start: 02-10-2024 ambulatory [facility] Start: 01-26-2024 End: 01-26-2024 [facility] Start: 01-24-2024 End: 01-26-2024 Evaluation and management of inpatient [facility] Start: 01-24-2024 End: 01-24-2024 [facility] Start: 01-24-2024 ambulatory [facility] Start: 01-23-2024 End: 01-26-2024 Evaluation and management of inpatient STEPHEN STOKES [facility] Start: 01-23-2024 End: 01-25-2024 Evaluation and management of inpatient [facility] Start: 04-03-2023 End: 04-03-[address] USMAN RODRIGEZ . Facility:[facility] Start: 07-26-2022 Encounter for gynecological examination (general) (routine) without abnormal findings DR EARLENE MCDONOUGH . [facility] Start: 07-22-2022 End: 07-22-[address] EARLENE MCDONOUGH . Facility:[facility] Start: 07-22-2022 End: 07-22-2022 Encounter for gynecological examination (general) (routine) without abnormal findings DR EARLENE MCDONOUGH . Facility:[facility] Procedures Date Procedure Procedure Detail Performing Clinician Start: 05-31-2025 Follow-up visit Follow-up JANI BRIDGES Start: 05-23-2025 Dup-scan aorta ivc i liac vascl/bpgs complete Jani Bridges MD Work Phone: Start: 07-31-2024 IGP,APTIMA HPV,AGE GDLN Andre Treviño DO Work Phone: Start: 07-31-2024 Microscopic observat ion [Identifier] in Cervix by Cyto stain Jani Bridges MD Work Phone: Start: 07-10-2024 URINARY TRACT INFECT ION (HTRX) Bharti Al GEMA Work Phone: Start: 03-31-2024 Dup-scan lxtr art/ar tl bpgs uni/lmtd study Not In System Ref Prov Start: 03-30-2024 Dup-scan xtr veins unilateral/limited study Not In System Ref Prov Start: 02-10-2024 Follow-up visit Follow-up JANI BRIDGES Start: 01-23-2024 Adult depression scr eening assessment Jani Bridges MD Work Phone: Start: 01-07-2024 Fallopian tube excision YSDNEE ALVAREZ Comment on above: partial Start: 11-15-2023 Removal of thrombus ROXANE ADENGURWINDER ALVAREZ Start: 08-24-2023 Microscopic observat ion [Identifier] in Cervix by Cyto stain Jani Bridges MD Work Phone: H/O: hysterectomy SYDNEE VELAZQUEZ History of appendectomy ADITI VENTURA JAMARI Laparoscope, device (physical object) SYDNEE ALVAREZ Comment on above: pelvic Plan of Treatment Date Care Activity Detail Author Start: 08-24-2028 Screening for malign ant neoplasm of cervix [facility] Start: 07-31-2027 Screening for malign ant neoplasm of cervix Pap Smear [facility] Start: 08-24-2026 Screening for malign ant neoplasm of cervix Pap Smear [facility] Start: 06-06-2026 End: 06-06-2026 Patient encounter procedure 06/06/2026 8:30 AM EDT Office Visit [facility] [place] [address] [place] [address] Jani Bridges MD [address] [place] [address] [facility] Start: 05-31-2026 Adult BMI Screening Adult BMI Screen ing [facility] Start: 05-31-2026 Tobacco Screening Tobacco Screening [facility] Start: 05-27-2026 End: 05-27-2026 Patient encounter procedure 05/27/2026 8:30 AM EDT Appointment [facility] [address] [place] [address] Jani Bridges MD [address] [place] [address] [facility] Start: 08-06-2025 End: 08-06-2025 Patient encounter procedure 08/06/2025 10:00 AM EDT Office Visit [facility] [address] [place] [id number] Andre Treviño, [address] [place] [address] [facility] Start: 07-16-2025 Influenza vaccination P [facility] Start: 05-31-2025 End: 05-31-2026 US.doppler Thoracic and Abdominal Aorta and Inferior Vena Cava and Illiac vessels Vas IVC/iliac duplex complete Vascular Ultrasound Routine May-Thurner syndrome Acute deep vein thrombosis (DVT) of iliac vein of left lower extremity ([facility]) Expected: 05/31/2025, Expires: 05/31/2026 [employer] Work Phone: Comment on above: Expected: 05/31/2025 , Expires: 05/31/2026 Start: 05-25-2025 Adult BMI Screening Adult BMI Screen ing [facility] Start: 05-25-2025 Tobacco Screening Tobacco Screening [facility] Start: 05-24-2025 End: 05-24-2025 Patient encounter procedure 05/24/2025 8:30 AM EDT Office Visit [facility] [address] [place] [address] Jani Bridges MD [address], [address] [place] [address] [facility] Start: 04-17-2025 End: 04-17-2025 Patient encounter procedure 04/17/2025 8:00 AM EDT Office Visit [facility] [address] [place] [phone] Andre Treviño, DO [address] [place], [place] [id number] [facility] Start: 04-03-2025 End: 04-03-2025 Patient encounter procedure 04/03/2025 9:20 AM EDT Office Visit [facility] [address] [facility] [place] [phone] Andre Treviño, DO [address] [place], [facility] Arrived [facility] Comment on above: Arrived Start: 02-13-2025 Adult BMI Screening Adult BMI Screen ing [facility] Start: 02-13-2025 Tobacco Screening Tobacco Screening [facility] Start: 01-24-2025 Adult BMI Screening Adult BMI Screen ing [facility] Start: 01-23-2025 Tobacco Screening Tobacco Screening [facility] Start: 01-22-2025 Depression Screening Depression Scre ening [facility] Start: 10-17-2024 End: 10-17-2024 Social Work 10/17/2024 11:00 AM EST Social Work [facility] [address] [place] [address] Theresa Perez, [facility] [address] [place] [address] [facility] Start: 09-20-2024 End: 09-20-2024 Social Work 09/20/2024 8:00 AM EST Social Work [facility] [address] [place] [phone] Theresa Perez, [facility] [address] [place] [address] Arrived [facility] Comment on above: Arrived Start: 09-06-2024 End: 09-06-2024 Social Work 09/06/2024 2:00 PM EDT Social Work [facility] [address] [place] [phone] Theresa Perez, [facility] [address] [place] [address] [facility] Start: 08-31-2024 End: 08-31-2024 Patient encounter procedure [facility] Comment on above: Arrived Start: 08-30-2024 End: 08-30-2024 Social Work 08/30/2024 9:00 AM EDT Social Work [facility] [address] [place] [phone] Theresa Perez, [facility] [address] [place] [address] [facility] Start: 08-10-2024 End: 08-10-2024 Social Work [facility] Comment on above: Arrived Start: 07-31-2024 End: 07-31-2024 Patient encounter procedure [facility] Comment on above: Arrived Start: 07-18-2024 End: 07-18-2024 Social Work 07/18/2024 11:00 AM EDT Social Work [facility] [address] [place] [phone] Theresa Perez, [facility] [address] [place] [address] [facility] Start: 07-16-2024 COVID-19 Vaccine ( season) COVID-19 Vaccine () [facility] Start: 07-16-2024 Influenza vaccination N [facility] Start: 05-25-2024 End: 05-25-2024 Patient encounter procedure 05/25/2024 8:50 AM EDT Office Visit [facility] [address] [place] [address] Jani Bridges MD [address], [address] [address] [facility] Start: 05-11-2024 End: 05-11-2024 Patient encounter procedure 05/11/2024 10:00 AM EDT Office Visit [facility] [address] [place] [address] Jani Bridges MD [address], [address] [address] [facility] Start: 04-27-2024 End: 04-27-2025 CTA Upper extremity vessels - left CT angiogram extremity upper left Imaging Routine 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) Expected: 04/27/2024, Expires: 04/27/2025 [employer] Work Phone: Comment on above: Expected: 04/27/2024 , Expires: 04/27/2025 Start: 02-25-2024 End: 02-10-2025 US.doppler Thoracic and Abdominal Aorta and Inferior Vena Cava and Illiac vessels Vas IVC/iliac duplex complete Vascular Ultrasound Routine Acute deep vein thrombosis (DVT) of iliac vein of left lower extremity (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 Expected: 02/25/2024 (Approximate), Expires: 02/10/2025 [email or web address] Work Phone: Comment on above: Expected: 02/25/2024 (Approximate), Expires: 02/10/2025 Start: 07-16-2023 Influenza vaccination Influenza Vacc ine [facility] Start: 02-14-2019 DTaP,Tdap and Td Vaccines (6 - Tdap) DTaP,Tdap and Td Vaccines (6 - Tdap) [facility] Start: 2013 Screening for malign ant neoplasm of cervix Pap Smear [facility] Start: 2010 Adult BMI Follow Up Plan Adult BMI Follow Up Plan [facility] Aerobic culture Aerobic culture Microbiology Routine Nipple discharge Nipple infection in female Ordered: 04/03/2025 [facility] Comment on above: Ordered: 04/03/2025 Anaerobic culture Anaerobic cult ure Microbiology Routine Nipple discharge Nipple infection in female Ordered: 04/03/2025 [facility] Work Phone: Comment on above: Ordered: 04/03/2025 Bacteria identified in Urine by Culture Urine culture Microbiology Routine UTI symptoms Ordered: 07/11/2024 [facility] Comment on above: Ordered: 07/11/2024 End: 04-27-2025 C-reactive protein C-reactive protein Lab Routine 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) 1 Occurrences starting 04/27/2024 until 04/27/2025 [facility] Comment on above: 1 Occurrences starti ng 04/27/2024 until 04/27/2025 CHLAMYDIA TRACHOMATI S (GENITO/STI) CHLAMYDIA TRACHOMATIS (GENITO/STI) Lab Routine Chronic bladder pain Ordered: 07/31/2024 [facility] Comment on above: Ordered: 07/31/2024 CHLAMYDIA TRACHOMATI S (GENITO/STI) CHLAMYDIA TRACHOMATIS (GENITO/STI) Lab Routine STD exposure Ordered: 07/11/2024 [facility] Comment on above: Ordered: 07/11/2024 Cytology Cervical or vaginal smear or scraping study Pap Smear Pathology and Cytology Routine Well woman exam with routine gynecological exam Ordered: 07/31/2024 [facility] Work Phone: Comment on above: Ordered: 07/31/2024 End: 04-27-2025 Erythrocyte sedimentation rate Erythrocyte Sedimentation Rate (ESR) Lab Routine 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) 1 Occurrences starting 04/27/2024 until 04/27/2025 [facility] Comment on above: 1 Occurrences starti ng 04/27/2024 until 04/27/2025 Human papilloma viru s DNA [Presence] in Unspecified specimen by Probe with amplification HPV DNA probe, amplified Microbiology Routine Well woman exam with routine gynecological exam Ordered: 07/31/2024 [facility] Comment on above: Ordered: 07/31/2024 Neisseria gonorrhoea e DNA [Presence] in Unspecified specimen by MÓNICA with probe detection Neisseria gonorrhea DNA probe, direct Lab Routine Chronic bladder pain Ordered: 07/31/2024 [facility] Comment on above: Ordered: 07/31/2024 Neisseria gonorrhoea e DNA [Presence] in Unspecified specimen by MÓNICA with probe detection Neisseria gonorrhea DNA probe, direct Lab Routine STD exposure Ordered: 07/11/2024 [facility] Comment on above: Ordered: 07/11/2024 SURESWAB(R) ADVANCED VAGINITIS PLUS, TMA SURESWAB(R) ADVANCED VAGINITIS PLUS, TMA Pathology and Cytology Routine Chronic bladder pain Ordered: 07/31/2024 [facility] Comment on above: Ordered: 07/31/2024 SURESWAB(R) ADVANCED VAGINITIS PLUS, TMA SURESWAB(R) ADVANCED VAGINITIS PLUS, TMA Pathology and Cytology Routine Vaginal discharge Ordered: 07/11/2024 [facility] Work Phone: Comment on above: Ordered: 07/11/2024 Immunizations Immunization Date Immunization Notes Care Provider Сергей cheung 05-13-2021 SARS-CoV-2 (COVID-19 ) mRNA BNT-162b2 vax SYDNEE ALVAREZ [facility] 04-22-2021 SARS-CoV-2 (COVID-19 ) mRNA BNT-162b2 vax SYDNEE ALVAREZ [facility] 07-04-2019 hepatitis B vaccine, adult dosage SYDNEE ALVAREZ [facility] 05-02-2019 hepatitis B vaccine, adult dosage SYDNEE JAMARI [facility] 02-28-2019 hepatitis B vaccine, adult dosage SYDNEE JAMARI [facility] 02-13-2019 Td(adult) unspecifie d formulation SYDNEE JAMARI [facility] Comment on above: Result Comment: 2023: TENIVAC GIVEN BY DR RODRIGEZ IN [place] 07-11-1997 diphtheria, tetanus toxoids and acellular pertussis vaccine SYDNEE JAMARI [facility] 07-11-1997 measles, mumps and rubella virus vaccine SYDNEE JAMARI [facility] 07-11-1997 poliovirus vaccine, unspecified formulation SYDNEE JAMARI [facility] 06-23-1993 Hib, unspecified formulation SYDNEE JAMARI [facility] 06-23-1993 measles, mumps and rubella virus vaccine SYDNEE JAMARI [facility] 06-23-1993 poliovirus vaccine, unspecified formulation SYDNEE JAMARI [facility] 1990 Hib, unspecified formulation SYDNEE JAMARI [facility] 1992 Hib, unspecified formulation SYDNEE JAMARI [facility] 1992 poliovirus vaccine, unspecified formulation SYDNEE JAMARI [facility] 1992 Hib, unspecified formulation SYDNEE ALVAREZ [facility] 1992 poliovirus vaccine, unspecified formulation SYDNEE ALVAREZ [facility] Payers Date Payer Category Payer Self-pay 2024 Unknown [id number] 2022 Blue Cross Blue Shie ld Managed Care - Other [id number] 2022 Private Health Insurance [id number] 2022 Unknown [id number]. 1.13.693.2.7.3.45765 1.315 2007 Unknown [id number] 1992 Unknown [id number] 2.840.1.530664.3.579.2.593 1992 Unknown [id number] 2.840.1.443571.3.579.2.593 1992 Unknown [id number] 2.840.1.515111.3.579.2.1285 1992 Unknown [id number] 2.840.1.337007.3.579.2.1285 1992 Unknown [id number] 2.16840.1.480303.3.579.2.1285 1992 Unknown [id number] 2.16.840.1.491717.3.579.2.1285 1992 Unknown [id number] 2.16840.1.608614.3.579.2.1285 1992 Unknown [id number] 2.16840.1.057916.3.579.2.1285 1992 Unknown [id number] 2.16.840.1.983591.3.579.2.1285 1992 Unknown [id number] 2.840.1.001411.3.579.2.1285 1992 Unknown [id number] 2.16840.1.397248.3.579.2.1285 1992 Unknown [id number] 2.840.1.194510.3.579.2.1285 1992 Unknown [id number] 2.840.1.159253.3.579.2.1258 1992 Unknown [id number] 2..1.058269.3.579.2.1258 1992 Unknown [id number] 2.840.1.820722.3.579.2.1258 1992 Unknown [id number] 2.840.1.845511.3.579.2.1258 1992 Unknown [id number] 2.840.1.326839.3.579.2.1258 1992 Unknown [id number] 2.0.1.163602.3.579.2.1258 1992 Unknown [id number] 2.840.1.093219.3.579.2.1258 1992 Unknown [id number] 2.840.1.742139.3.579.2.1258 1992 Unknown [id number] 2.840.1.709805.3.579.2.1258 1992 Unknown [id number] 2.840.1.208115.3.579.2.7 1992 Unknown [id number] 2.840.1.003789.3.579.2.727 1992 Unknown [id number] 2.16.840.1.642180.3.579.2.727 1992 Unknown [id number] 2.16.840.1.538668.3.579.2.727 1992 Unknown [id number] 2.16.840.1.346184.3.579.2.727 1992 Unknown [id number] 2.16.840.1.045429.3.579.2.1286 1992 Unknown [id number] 2.16.840.1.257645.3.579.2.1286 1957 Medicaid [id number] 1959 Unknown [id number] 1959 Unknown [id number] 1959 Unknown [id number] Unknown [id number] 2.16.840.1.470428.3.579.2.531 Unknown [id number] Social History Date Type Detail Facility Start: 01-23-2024 End: 08-08-2024 Tobacco smoking status Ex-smoker (finding) [facility] Start: 12-26-2020 End: 07-31-2024 Sex Assigned At Unknown [facility] History of tobacco use Current smoker [facility] History of tobacco use Cigarette Smoker [facility] Start: 12-26-2020 End: 07-31-2024 Cigarettes smoked current (pack per day) - Reported 0.5 [facility] Start: 01-23-2024 End: 07-31-2024 Tobacco use and exposure Smokeless tobacco non-user [facility] Start: 08-03-2024 End: 04-03-2025 Alcoholic beverage intake Lifetime non-drinker (finding) [facility] Start: 09-10-2023 Tobacco Comment 5 or less ciga rettes a day [facility] Start: 1990 Sex assigned at Not on file [facility] Start: 09-10-2023 [facility] sm[facility] Start: 02-14-2024 End: 05-31-2025 Alcoholic beverage intake Ex-drinker (finding) [facility] [employer] [facility] Has the [employer], [employer], or [employer] threatened to shut off services in your home in past 12Mo No [facility] [employer] System How often to you hav e a drink containing alcohol? Never [facility] [employer] System How many standard dr inks containing alcohol do you have on a typical day? Patient does not drink [facility] Tobacco smoking stat [facility] Unknown if ever smoked [facility] Work Phone: Start: 03-24-2018 End: 02-20-2025 Sex Female (finding) [facility] Start: 1990 Sex Assigned At Female F [facility] Sexual Orientation [facility] Medical Equipment Procedure Code Equipment Code Equipment Origin al Text Equipment Identifier Dates Stent Vsc 18mm X 100mm Venous Nitinol Slf Expanding Abre - [id number] Start: 01-24-2024 Functional Status Date Assessment Result Facility 12-26-2024 Functional Status N/A [facility] 10-03-2024 Functional Status N/A [facility] 08-08-2024 Functional Status N/A [facility] Clinical Notes 02-10-2024 to 05-31-2025 Assessment & Plan Note - Jani Bridges MD - 05/31/2025 7:02 PM EDTAssessment & Plan Note - Jani Bridges MD - 05/31/2025 7:02 PM EDTMvinny Bridges MD - 05/31/2025 8:30 AM EDT Note Date & Type Note Facility 05-31-2025 Evaluation + Plan note Associated Problem(s): DVT (deep venous thrombosis) ([facility]) Continue anticoagulation. [facility] 05-31-2025 Evaluation + Plan note Associated Problem(s): May-Thurner syndrome Continue antiplatelets. Duplex ultrasound in a year. [facility] 05-31-2025 Miscellaneous Notes Associated Problem(s): DVT (deep venous thrombosis) ([facility]) Continue anticoagulation. Associated Problem(s): May-Thurner syndrome Continue antiplatelets. Duplex ultrasound in a year. documented in this encounter [facility] 05-31-2025 History of Presen t illness Narrative Images from the original note were not included. To: USMAN RODRIGEZ MD HPI: Tawana Silverman is a 35 y.o. 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 She is on aspirin and Eliquis. She also had symptoms in her neck and upper extremities and lower leg. She had a CT of the abdomen of the upper extremity that was normal. Her iliac vein is patent as well.. . Review of Systems: Review of Systems Constitutional: Negative. HENT: Negative. Respiratory: Negative. Cardiovascular: Negative. Gastrointestinal: Negative. Endocrine: Negative. Genitourinary: Negative. Musculoskeletal: Negative. Skin: Negative. Neurological: Negative. Hematological: Negative. Medications: Current Outpatient Medications on File Prior to Visit Medication Sig Dispense Refill acidophilus-pectin, citrus 25 million cell -100 mg tablet Take 1 tablet by mouth daily with breakfast. aspirin 81 mg chewable tablet CHEW 1 TABLET (81 MG TOTAL) AND SWALLOW IN THE MORNING. 90 tablet 30 ELIQUIS 2.5 mg tablet Take 1 tablet (2.5 mg total) by mouth. acetaminophen (TYLENOL EXTRA STRENGTH) 500 mg tablet Take 2 tablets (1,000 mg total) by mouth every 6 (six) hours. (Patient not taking: Reported on 05/31/2025) 30 tablet 0 apixaban (ELIQUIS DVT-PE TREAT 30D START) 5 mg (74 tabs) tablets,dose pack tablet Take 2 tablets by mouth twice daily for 7 days, then take 1 tablet twice daily (Patient not taking: Reported on 05/31/2025) 74 tablet 0 apixaban (ELIQUIS) 5 mg tablet Take 1 tablet (5 mg total) by mouth in the morning and 1 tablet (5 mg total) before bedtime. (Patient not taking: Reported on 05/31/2025) 60 tablet 2 apixaban (ELIQUIS) 5 mg tablet Take 1 tablet (5 mg total) by mouth in the morning and 1 tablet (5 mg total) before bedtime. (Patient not taking: Reported on 05/31/2025) 60 tablet 3 levonorgestreL-ethinyl estrad (NORDETTE) 0.15-0.03 mg per tablet Take 1 tablet by mouth in the morning. (Patient not taking: Reported on 05/31/2025) oxyCODONE (ROXICODONE) 5 mg immediate release tablet Take 1 tablet (5 mg total) by mouth every 6 (six) hours as needed for pain for up to 10 doses. Max Daily Amount: 20 mg (Patient not taking: Reported on 05/31/2025) 10 tablet 0 No current facility-administered medications on file prior to visit. Past Medical History: History reviewed. No pertinent past medical history. Past Surgical History: Past Surgical History: Procedure Laterality Date APPENDECTOMY HYSTERECTOMY partial LAPAROSCOPY MECHANICAL THROMBECTOMY OF LEFT ILIAC AND FEMORAL VEINS / STENTING OF LEFT ILIAC VEIN/ IVUS OF LEFT FEMORAL ILIAC AND IVC/ LEFT LOWER EXTREMITY CENTRAL VENAGRAM Left 01/24/2024 Performed by Jani Bridges MD at [facility] SPECIAL PROC Social and Family [...] Social History Narrative Not on file Social Drivers of Health Financial Resource Strain: Not on [...] the assessment and plan below. Vitals: BP 102/68 Pulse 62 Wt 59.9 kg (132 lb) BMI 24.14 kg/m Body mass index is 24.14 kg/m . Physical Exam: Physical Exam Constitutional: [...] content normal. Judgment: Judgment normal. Recent testing: Venous duplex ultrasound. IVC and iliac Assessment and Plan: Problem List DVT (deep venous thrombosis) (CMS-HCC) Current Assessment & Plan Continue anticoagulation. Relevant Orders Vas IVC/iliac duplex complete May-Thurner syndrome - Primary Current Assessment & Plan Continue antiplatelets. Duplex ultrasound in a year. Relevant Orders Vas IVC/iliac duplex complete Tawana was seen today for follow-up. Diagnoses and all orders for this visit: May-Thurner syndrome - Vas IVC/iliac duplex complete; Future Acute deep vein thrombosis (DVT) of iliac vein of left lower extremity (CMS-HCC) - Vas IVC/iliac duplex complete; Future Jani Bridges MD, [place], RPVI, FSVS, FACS [facility] This note was created with the assistance of a speech recognition program. While intending to generate a timely document that accurately reflects the content of the visit, no guarantee can be provided that every grammatical or spelling mistake has been or will be identified or corrected. Thank you for your understanding. documented in this encounter [facility] 04-17-2025 History of Presen t illness Narrative Reason for Appointment: Patient ID: Tawana Silverman is a 35 y.o. female who presents for No chief complaint on file. Patient presents today via telephone call for a telehealth appointment. Patients Phone #: [phone] (mobile) Date: 04/17/2025 Time: 9:51 AM of the visit Platform Used: Audio call performed via in house telephone system. Location of Patient and Provider: Patient at home, provider at clinic Consent for Telehealth: Patient provided verbal consent to conduct the visit virtually via audio only phone call Current Medications: has a current medication list which includes the following prescription(s): acetaminophen, cyclobenzaprine, eliquis dvt/pe starter pack, gabapentin, ondansetron odt, phenazopyridine, and probiotic. Medical History: Active Ambulatory Problems Diagnosis Date Noted Endometriosis 11/25/2023 Pelvic pain 11/25/2023 Chronic bladder pain 07/31/2024 Resolved Ambulatory Problems Diagnosis Date Noted No Resolved Ambulatory Problems Past Medical History: Diagnosis Date Abnormal Pap smear of cervix 2006 BV (bacterial vaginosis) HPV (human papilloma virus) infection 2007 Ovarian cyst 2019 Vaginal Pap smear 07/2022 Yeast infection of the vagina No family history on file. Social History Tobacco Use Smoking status: Former Current packs/day: 0.50 Average packs/day: 0.5 packs/day for 15.0 years (7.5 ttl pk-yrs) Types: Cigarettes Smokeless tobacco: Never Tobacco comments: 5 or less cigarettes a day Substance Use Topics Alcohol use: Never Drug use: Never Past Surgical History: Procedure Laterality Date APPENDECTOMY March [address] ANGIOGRAM UPPER EXTREMITY LEFT Left 05/08/2024 CT ANGIOGRAM UPPER EXTREMITY LEFT DILATION AND CURETTAGE OF UTERUS 01/07/2024 HYSTERECTOMY 2018 PELVIC LAPAROSCOPY Endometriosis via lap SALPINGECTOMY Bilateral 01/07/2024 partial THROMBECTOMY 2023 No Known Allergies Vitals: Estimated body mass index is 24.51 kg/m as calculated from the following: Height as of 07/31/24: 5' 2 . Weight as of 04/03/25: 134 lb. BP: No LMP recorded. Patient has had a hysterectomy. Assessment/Plan Encounter Diagnosis Name Primary? Yeast infection Pt was called and doing better from medication. Rx for diflucan faxed to pharmacy. Pt advised to take one today and another in 4 days. Pt doing better after antibiotic for nipple discharge Today's telehealth visit consisted of spending 5 minutes talking to patient on the phone. Documented by Gaby Pal LPN on behalf of: Andre Treviño DO documented in this encounter [facility] 04-03-2025 History of Presen t illness Narrative Reason for Appointment: Patient ID: Tawana Silverman is a 35 y.o. female who presents for Nipple pain (Pt present today for right nipple infection.) Patient presents today for nipple infection from piercing and Acute Visit. MEDICATIONS Current Outpatient Medications Medication Instructions acetaminophen (TYLENOL) 1,000 mg, Oral, Every 6 hours amoxicillin-clavulanate (Augmentin) 875-125 MG tablet 875 mg, Oral, 2 times daily cyclobenzaprine (FLEXERIL) 5 mg, Oral, 3 times daily PRN Eliquis DVT/PE Starter Pack 5 MG tablet [...] Systems Constitutional: Negative. HENT: Negative. Eyes: Negative. Breasts: Positive for breast discharge. Respiratory: Negative. Cardiovascular: Negative. Gastrointestinal: Negative. Genitourinary: Negative. Musculoskeletal: Negative. Skin: Negative. Neurological: Negative. All other systems reviewed and are negative. Hematological: Negative. Endocrine: Negative. Allergic/Immunologic: Negative. OBJECTIVE Objective: Physical Exam Constitutional: Appearance: Normal appearance. She is well-developed. Genitourinary: Breasts: Breasts are soft. Right: Nipple discharge present. Left: Normal. Cardiovascular: Rate and Rhythm: Normal rate and [...] nursing note reviewed. Exam conducted with a forming process worker present. Vitals: Estimated body mass index is 24.51 kg/m as calculated from the following: Height as of 07/31/24: 5' 2 . Weight as of this encounter: 134 lb. BP: 114/70 No LMP recorded. Patient has had a hysterectomy. ASSESSMENT & PLAN ICD-10-CM 1. Nipple pain N64.4 2. Nipple discharge N64.52 amoxicillin-clavulanate (Augmentin) 875-125 MG tablet 3. Nipple infection in female N61.0 amoxicillin-clavulanate (Augmentin) 875-125 MG tablet Pt presents with nipple discharge from piercing, cultures obtained from right nipple. Rx for augmentin faxed to pharmacy along with diflucan for 10 days d/t yeast infection from antibiotics. Pt to follow up with telehealth 4 weeks. Documented by Gaby Pal LPN on behalf of: Andre Treviño DO documented in this encounter [facility] 12-26-2024 Hospital Discharg e instructions Patient Education [...] Follow these instructions at home: Medicines Take icve-mpn-ztfmezk and prescription medicines only as told by [...] provider. Document Revised: 08/18/2023 Document Reviewed: 08/18/2023 smartclip Patient Education 2023 [employer]. Follow Up Care 10/03/2024 10:18:19 With:[facility] Address: When: Unknown Comments:Only if needed/new problems arise. No scheduled appointment indicated at this time. [facility] [place] 12-26-2024 Note Patient Education Gastroenterology Abdominal Pain, [...] these instructions at home: Medicines ??? Take pmil-qcu-geasfro and prescription medicines only as told by [...] provider. Document Revised: 08/18/2023 Document Reviewed: 08/18/2023 smartclip Patient Education ? 2023 [employer]. [facility] 10-03-2024 Evaluation + Plan note Extrac casandra from: Title:Urology Progress Note Author:Gema HOYOS MD Date:10/03/24 Impression and Plan Impression: #1. She has urinary frequency, urgency and urge incontinence. 2. Her pelvic pain may be from endometriosis. Plan: #1. For now, she will try Myrbetriq 50 mg daily. Follow-up will be in 4 months for reevaluation. Future Appointments Appointment Date:12/26/2024 09:30:00 AM Scheduled Provider:SYDNEE ALVAREZ PA-C Location:[facility] [place] Appointment Type:URO Office Visit Appointment Date:04/04/2025 01:00:00 PM Scheduled Provider:Julien HOYOS MD Location:[facility] Appointment Type:URO Office Visit [facility] 11-19-2024 Hospital Discharge instructions Patient Education 10/03/2024 [...] Up Care 08/18/2024 15:06:34 With:Julien HOYOS Address: [address] [place] [address] Business (1) When:01/31/2025 10:02:39 Comments:With Roxane Alvarez [facility] 11-19-2024 NoteProgress Note-Physician Patient: TAWANA SILVERMAN Age: 34 years Sex: Female : 1990 Associated Diagnoses: None Author: Julien HOYOS MD Subjective X this lady has pelvic pain, [...] All Problems Endometriosis (clinical) / SNOMED CT 181145172 / Confirmed Deep venous thrombosis / SNOMED CT 881648608 / Confirmed 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 Family History: Congenital heart disease Mother Primary malignant neoplasm of female breast Grandparent Alcoholism Mother Migraines Mother Procedure history: Thrombectomy (61583708) in 2023 at 34 Years. Salpingectomy (7217980935) on 01/07/2024 at 33 Years. Comments: 08/08/2024 8:57 Therese Lowe MA partial History of appendectomy (situation) (0755663730). History of - hysterectomy (context-dependent category) (410831055). Laparoscope (182927604). Comments: 08/08/2024 8:55 Therese Lowe MA pelvic [...] Follow-up will be in 4 months for reevaluation.[facility]Result Comment: Electronically Signed By: ROMAIN NAVARRO, Julien Pimentel.shikha\Date and Time Signed: 10/03/24 10:13 [id number] NotePatient Education Custom Cystoscopy with Urethral Dilation [...] you have a fever over [address] [facility] History of Present illness Narrative* April Beth, MARCIO - 08/31/2024 10:10 AM EDT Reason [...] nursing note reviewed. Exam conducted with a forming process worker present. Vitals: Estimated body mass index is [...] scheduled for a scope on 10/03/24 @ [facility]. Urology also referred patient to PT for [...] of: Andre Treviño DO [id number] Hospital Discharge instructions Patient Education 08/08/2024 12:40:13 [...] known. Follow these instructions at home: Take befa-liz-yedcvqa and prescription medicines only as told by [...] provider. Document Revised: 03/10/2022 Document Reviewed: 03/10/2022 smartclip Patient Education 2023 [employer]. Follow Up Care 08/03/2024 15:49:20 With:[facility] Address: [address] [place] [address] Business (1) When: Unknown Comments:our energy scheduler will be contacting you for follow-up [facility] 09-24-2024 NoteUrology Office/Clinic Note Chief Complaint Dr. [...] has ovaries. Nl renal fx 01/25/24. Dr Rodrigez recently ordered a lot of bloodwork. Nothing [...] test anxiety. 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 Ordered: diazepam, See Instructions, 1 tab po 30-60 mins prior to cystoscopy, # 1 tab(s), Refills(s) 0, [id number] 158, cm, 08/08/24 11:39:00 EDT, Height/Length Dosing, 60, kg, 08/08/24 11:39:00 EDT, Weight Dosing E&M of New Patient Moderate 45-59 Min 03650 2. Chronic pelvic pain in female (R10.2: Pelvic and perineal pain) Sp hysterectomy 2017 w several laproscopy d/t endometriosis. Had laproscopy Dec 2023 and bilat salpingectomy at that time. Pt reports no endometriosis found at that time. Will refer to [facility]PT at [facility] (her sx are a bit beyond my scope of PFPT) to assess for hypertonicpelvic floor, etc. Ordered: diazepam, See Instructions, 1 tab po 30-60 mins prior to cystoscopy, # 1 tab(s), Refills(s) 0, [id number] 158, cm, 08/08/24 11:39:00 EDT, Height/Length Dosing, 60, kg, 08/08/24 11:39:00 EDT, Weight Dosing 43397 Measure Post Void residual urine and/or bladder capacity by US- non-imaging E&M of New Patient Moderate 45-59 Min 03520 Urnls Dip Stick Auto w/o Microscopy POC 04527 3. Recurrent vaginitis (N76.0: Acute vaginitis) Also reports frequent vaginal infections - bacterial and fungal. Ordered: diazepam, See Instructions, 1 tab po 30-60 mins prior to cystoscopy, # 1 tab(s), Refills(s) 0, [id number], 158, cm, 08/08/24 11:39:00 EDT, Height/Length Dosing, 60, kg, 08/08/24 11:39:00 EDT, Weight Dosing E&M of New Patient Moderate 45-59 Min 07345 Follow-up With When Contact Information [facility] [address] Business (1) Additional Instructions: our energy scheduler will be contacting you for follow-up Patient Education Pelvic Pain, Female Problem List/Past Medical History Ongoing Anxiety Chronic bladder pain Chronic pelvic pain in female Deep venous thrombosis Endometriosis (clinical) Factor V deficiency Leukocytosis Migraine Recurrent vaginitis Historical No qualifying data Procedure/Surgical History Salpingectomy (01/07/2024), Thrombectomy (2023), H/O: hysterectomy, History of appendectomy, Laparoscope. Medications CV (more content not included)...[facility]: Result Comment: Electronically Signed By: SYDNEE ALVAREZ PA-C\Date and Time Signed: 08/08/2412:41 [id number] NotePatient Education Obstetrics and Gynecology Pelvic Pain, [...] Follow these instructions at home: ? Take ufig-ehy-ymklkwb and prescription medicines only as told by [...] provider. Document Revised: 03/10/2022 Document Reviewed: 03/10/2022 [employer]YouGoDo Patient Education ? 2023 [employer].[facility] 07-31-2024 History of Present illness Narrative* April Beth, MARCIO - 07/31/2024 10:00 AM EDT Reason for [...] (human papilloma virus) infection 2007 Ovarian cyst 2020 Vaginal Pap smear 07/2022 Yeast infection of the vagina HISTORY PAST MEDICAL HISTORY SOCIAL HISTORY Past Medical History: Diagnosis Date Abnormal Pap smear of cervix 2006 BV (bacterial vaginosis) Endometriosis HPV (human papilloma virus) infection 2007 Ovarian cyst 2020 Vaginal Pap smear 07/2022 neg Yeast infection [...] nursing note reviewed. Exam conducted with a forming process worker present. Vitals: Estimated body mass index is [...] of: Andre Treviño DO documented in this encounterLee's Summit [id number] History of Present illness Narrative* GEMA Earl [...] (Neurontin) 300 MG capsule 1 capsule HYDROcodone-acetaminophen ([place]) 5-325 MG tablet TAKE 1 TABLET EVERY 4 HOURS ibuprofen 800 MG tablet TAKE 1 TABLET EVERY 8 HOURS Lactobacillus Acid-Pectin (Acidophilus/Thornhill Pectin) tablet 1 tablet, Oral, Daily with [...] behalf of: GEMA Earl documented in this encounterLee's Summit [id number] Evaluation + Plan note* Assessment & Plan Note - Jani Bridges MD - 05/25/2024 9:17 AM EDT Associated Problem(s): DVT (deep venous thrombosis) ([facility]) Continue anticoagulation for total of 6 months. She probably benefit from D- dimer check at that time. [facility]07-11-[facility]24 Miscellaneous Notes* Assessment & Plan Note - Jani Bridges MD - 05/25/2024 9:17 AM EDTAssociated Problem(s): DVT (deep venous thrombosis) ([facility]) Continue anticoagulation for total of 6 months. She probably benefit from D- dimer check at that time. 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 She will continue aspirin indefinitely. She will get a surveillance imaging in a year. 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 She will continue aspirin indefinitely. She will get a surveillance imaging in a year. [facility]07-11-[facility] History of Present illness Narrative* Jani Bridges MD - 05/25/2024 8:50 AM EDT Images from the original note were not included. To: USMAN RODRIGEZ MD HPI: Tawana Silverman is a 34 [...] 01/24/2024 Performed by Jani Bridges MD at [facility] Social and Family [...] Plan: Problem List DVT (deep venous thrombosis) ([facility]) May-Thurner syndrome - Primary Current Assessment & [...] of iliac vein of left lower extremity ([facility]) Jani Bridges MD, [place], RPVI, FSVS, FACS [facility] This note was created with the assistance of a speech recognition program. While intending to generate a timely document that accurately reflects the content of the visit, no guarantee can be provided that every grammatical or spelling mistake has been or will be identified or corrected. Thank you for your understanding. 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 Continue aspirin. 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 To: USMAN RODRIGEZ MD HPI: Tawana Silverman is a 34 [...] 6 months based on suggestions from her bullet swaging machine adjuster which I agree on. She will continue [...] 01/24/2024 Performed by Jani Bridges MD at [facility] Social and Family [...] disease of artery of upper extremity (CMS-HCC) Current Assessment & Plan We will get [...] disease of artery of upper extremity (CMS-HCC) - CT angiogram extremity upper left; Future - apixaban (ELIQUIS) 5 mg tablet; Take 1 tablet (5 mg total) by mouth in the morning and 1 tablet (5 mg total) before bedtime. - Erythrocyte Sedimentation Rate (ESR); Future - C-reactive protein; Future Jani Bridges MD, [place], RPVI, FSVS, FACS [facility] This note was created with the assistance of a speech recognition program. While intending to generate a timely document that accurately reflects the content of the visit, no guarantee can be provided that every grammatical or spelling mistake has been or will be identified or corrected. Thank you for your understanding. documented in this encounterChillicothe [facility]03-28-[facility]24 History of Present illness Narrative* Jani Bridges MD - 02/10/2024 2:40 PM EDT Images from the original note were not included. [facility] [address] [place] [phone] Subjective: Patient ID: Tawana Silverman is a [...] Problem List Diagnosis DVT (deep venous thrombosis) ([facility]) May-Thurner syndrome Current Outpatient Medications: acetaminophen (TYLENOL [...] of iliac vein of left lower extremity ([facility]) May-Thurner syndrome Plan Plan: Eliquis ASA US of the left iliac veins F/U in 3 months Jani Bridges MD, [place] documented in this encounterCleveland Clinic [facility] SystemEvaluation + Plan note No data available for this section [facility] evaluation + Plan note Future Appointments Appointment Date:04/04/2025 01:00:00 PM Scheduled Provider:Julien HOYOS MD Location:[facility] Appointment Type:URO Office Visit [facility] evaluation note* Diagnosis Vaginal discharge Leukorrhea, not specified as infective STD exposure [facility] Diagnosis [place] (generalized anxiety disorder) ([facility]) Generalized anxiety disorder Adjustment disorder with depressed mood ([facility]) Adjustment disorder with depressed mood [facility]* Diagnosis Well woman exam with routine gynecological exam Routine gynecological examination Chronic bladder pain [facility] this [facility]* Diagnosis [place] (generalized anxiety disorder) ([facility]) Generalized anxiety disorder documented in this encounter [...] [facility] noteNo assessment information available [facility] Work Phone: Evaluation note* Diagnosis Nipple pain Other sign and symptom in breast Nipple discharge Other sign and symptom in breast Nipple infection in female Antibiotic-induced yeast infection [facility] this encounter [facility]* Diagnosis Yeast infection documented in this [facility]* Diagnosis 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 Compression of vein 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 Compression of vein Acute deep vein thrombosis (DVT) of iliac vein of left lower extremity (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 Compression of vein Acute deep vein thrombosis (DVT) of iliac vein of left lower extremity (CMS-HCC) documented in this encounter [facility] instructions No data available for this section [facility] InstructionsNot on filedocumented in this encounter [facility] SystemInstructionsNot on filedocumented in this encounter [facility] SystemInstructionsNot on filedocumented in this encounter [facility] SystemInstructionsNot on filedocumented in this encounter [facility] SystemInstructionsNot on filedocumented in this encounter [facility] SystemInstructionsNot on filedocumented in this encounter [facility] note No data available for this section [facility] Summary Purpose Family History No Family [...] Found Advance Directives No Advanced Directives Records Found Date Activated Date Inactivated Comments 01/23/2024 2:36 [...] of iliac vein of left lower extremity ([facility]) May-Thurner syndrome Procedures Vas IVC/iliac duplex complete Jani Bridges MD [address], [address] [address] Referral ID Status Reason Start Date Expiration Date V isits Requested Visits Authorized [id number] Pending Review 02/11/2024 02/10/2025 1 1 Specialty Diagnoses / Procedures Referred By Contac t Referred To Contact Radiology Diagnoses 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 ([facility]) Procedures CT angiogram extremity upper left Jani Bridges MD [address], [facility] [address] [place] [address] Referral ID Status Reason Start Date Expiration Date V isits Requested Visits Authorized [id number] Pending Review 04/27/2024 04/27/2025 1 1 Chief Complaint and Reason for Visit Chief Complaint Admit Date C only;Chronic Pelvic Pain February 19 9:00am Additional Source Comments INFORMATION SOURCE (unrecogn ized section and content) DATE CREATED AUTHOR 04/23/2023 [facility] DATE CREATED AUTHOR AUTHOR'S ORGANIZ ATION 01/27/2024 [facility] DATE CREATED AUTHOR AUTHOR'S ORGANIZ ATION 05/31/2024 [facility] DATE CREATED AUTHOR AUTHOR'S ORGANIZ ATION 02/21/2025 [facility] DATE CREATED AUTHOR AUTHOR'S ORGANIZ ATION 04/04/2025 [facility] DATE CREATED AUTHOR AUTHOR'S ORGANIZ ATION 04/11/2025 [facility] DATE CREATED AUTHOR AUTHOR'S ORGANIZ ATION 06/03/2025 [facility] Patient Care team informatio n (unrecognized section and content) Project Asst Relationship Specialty Start Date End Date Usman Rodrigez MD [address] [place] [address] PCP - General Family Medicine 03/24/23 Project Asst Relationship Specialty Start Date End Date Usman Rodrigez MD [address] [place] [address] PCP - General Family Medicine 03/24/23 Project Asst Relationship Specialty Start Date End Date Usman Rodrigez MD [address] [place] [address] PCP - General Family Medicine 03/24/23 Project Asst Relationship Specialty Start Date End Date Usman Rodrigez MD [address] [place] [address] PCP - General Family Medicine 03/24/23 Project Asst Relationship Specialty Start Date End Date Usman Rodrigez MD [address] [place] [address] PCP - General Family Medicine 03/24/23 Project Asst Relationship Specialty Start Date End Date Usman Rodrigez MD [address] [place] [address] PCP - General Family Medicine 03/24/23 Project Asst Relationship Specialty Start Date End Date Usman Rodrigez MD [address] [place] [address] PCP - General 02/09/24 Project Asst Relationship Specialty Start Date End Date Usman Rodrigez MD [address] [place] [id number] PCP - General 02/09/24 Project Asst Relationship Specialty Start Date End Date Usman Rodrigez MD [address] [place] [address] PCP - General 02/09/24 Project Asst Relationship Specialty [place] [address] [place], [place] [id number] PCP - General 02/09/24 Team Status: Active Member Role Status Dates Usman Rodrigez MD Primary Care Provider Active Team Status: Inactive Member Role Status Dates Sydnee Alvarez PA-C Attending Provider Active Start: February 19, 2025 End: February 19, 2025 Usman Rodrigez MD Primary Care Provider Active Start: February 19, 2025 End: February 19, 2025 Project Asst Relationship Specialty Start Date End Date Usman Rodrigez MD PCP - General 02/09/24 Project Asst Relationship Specialty Start Date End Date Usman Rodrigez MD PCP - General Family Medicine 03/24/23 Theresa Perez [facility] [address] [place] [address] [facility] 01/08/25 Project Asst Relationship Specialty Start Date End Date Usman Rodrigez MD PCP - General Family Medicine 03/24/23 Theresa Perez, [facility] [address] [place] [address] [facility] 01/08/25 Project Asst Relationship Specialty Start Date End Date Usman Rodrigez MD PCP - General Family Medicine 03/24/23 Theresa Perez, [facility] [address] [facility] [address] [place] [address] [facility] 01/08/25 Project Asst Relationship Specialty Start Date End Date Usman Rodrigez MD PCP - General Family Medicine 03/24/23 Project Asst Relationship Specialty Start Date End Date Usman Rodrigez MD PCP - General 02/09/24 Reason for Visit (unrecogniz ed section and [...] lle with mi Reason Comments Med Refill Reason Comments Nipple pain Pt present today for right nipple infection. Reason Comments Follow-up Testing done Goals (unrecognized section and content) Goals may [...] THE PRIMARY CLINICAL RECORDS. [facility] [employer] [facility]. provides no warranty or guarantee of the accuracy or completeness of information in this document.
--- OUTSIDE RECORDS SUMMARY | 2025-06-27 07:31 | XMS_ITS | Encounter Summary ---
Author Organization [employer] Address [id number] [address] 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 ([facility]) Social History Tobacco Use Types Packs/Day Years Used Date Smoking Tobacco: Former Cigarettes Smokeless Tobacco: Never Alcohol Use Standard Drinks/Week Comments Not Currently 0 (1 standard drink = 0.6 oz pur e alcohol) [facility] Utilities Answer Date Recorded In the past 12 months has th [employer], gas, oil, or water company threatened [...] Info) Description 05/27/2026 8:30 AM EDT Appointment [facility] [address] [place] [address] Jani Bridges MD [address], [address] [address] 06/06/2026 8:30 AM EDT Office Visit [facility] [address] [place] [address] Jani Bridges MD [address], [address] [place] [address] documented as of this encounter Visit Diagnoses Diagnosis May-Thurner syndrome Compression of vein 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
--- OUTSIDE RECORDS SUMMARY | 2025-06-27 07:31 | XMS_ITS | Encounter Summary ---
Author Organization [employer] Address [id number] [address] [place] [address] Care Team Providers Care Information Systems Coordinator Name Role Phone Dank Alvarez MD Primary Care Provider [phone] Encounter Details Date Type Department Care Team (Late st Contact Info) Description 04/26/2024 Orders Only [facility] [address] [place] [address] Nabila Strong CMA Acute deep vein thrombosis (DVT) of iliac vein of left lower extremity (CMS-HCC); May-Thurner syndrome Social History Tobacco Use Types Packs/Day Years Used Date Smoking Tobacco: Former Cigarettes Smokeless Tobacco: Never Alcohol Use Standard Drinks/Week Comments Not Currently 0 (1 standard drink = 0.6 oz pur e alcohol) [facility] Utilities Answer Date Recorded In the past 12 months has e [employer], gas, oil, or water [employer] threatened to shut off services in your [...] Description 05/27/2026 8:30 AM EDT Appointment [facility] [address] [place] [address] Jani Bridges MD [address] [place] [address] 06/06/2026 8:30 AM EDT Office Visit [facility] [address] [place] [address] Jani Bridges MD [address] [place] [address] documented as of this encounter Visit Diagnoses Diagnosis Acute deep vein thrombosis (DVT) of iliac vein of left lower extremity ([facility]) May-Thurner syndrome Compression of vein documented in this encounter Additional Health Concerns Assessment Noted Time PHQ-9 Depression Total Score: 0 01/23/20 24 7:47 PM EDT documented as of this encounter Care Teams Information Systems Coordinator Relationship Specialty Start Date End Date Dank Alvarez MD PCP - General 02/09/24 documented as of this encounter
--- OUTSIDE RECORDS SUMMARY | 2025-06-27 07:31 | XMS_ITS | Encounter Summary ---
Author Organization [facility] Address [address] [place] [address] Care Team Providers Care Set And Exhibit Designer Name Role Phone Dank Alvarez MD Primary Care Provider [phone] Deborah Perez [facility] Unavailable [phone] Encounter Details Date Type Department Care Team (Late Contact Info) Description 04/11/2025 Orders Only [facility] [address] [place] [address] Patti Tarango LPN [address] [facility] [address] [facility] Social History Tobacco Use Types Packs/Day Years [...] AM EDT Office Visit [facility] [address] [place] [facility] [place] [address] Andre Treviño DO [address] [place] [id number] documented as of this encounter Procedures Procedure [...] on filedocumented in this encounter Care Teams Set And Exhibit Designer Relationship Specialty Start Date End Date Dank Alvarez MD PCP - General Family Medicine 03/24/23 Deborah Perez, [facility] [address] [place] [address] [employer] Drilling Machine Operator [facility] 01/08/25 05/07/25 documented as of this encounter
--- OUTSIDE RECORDS SUMMARY | 2025-06-27 07:31 | XMS_ITS | Clinical Summary ---
Author Organization [facility] Address [address] [place] [address] Care Team Providers Care Medicinal Chemist Name Role Phone Dank Alvarez MD Primary Care Provider [phone] Allergies No known active allergies Medications Probiotic [...] Bridges MD 04/25/2025 Telephone [facility] [place] [address] Cyndi Norman MA 04/17/2025 8:00 AM EDT Office Visit [facility] [place] [address] Andre Treviño DO Yeast infection 04/16/2025 Travel 04/11/2025 Orders Only [facility] [place] [address] Patti Tarango LPN 04/03/2025 9:20 AM EDT Office Visit [facility] [place] [address] Andre Treviño DO Nipple pain; Nipple discharge; Nipple infection in female; Antibiotic-induced yeast infection 04/03/2025 Bamboo flowsheet [facility] [address] [facility] [place] [address] Andre Treviño DO 04/02/2025 Travel from Last [...] EDT Office Visit [facility] [address] [facility] [place] [address] Andre Treviño DO [address] [facility] [place] [address] Health Maintenance Due Date Last Done Comments [...] EDT Narrative 05/23/2025 10:41 AM EDT The [address] [address] Ultrasound Report Signed Patient: TAWANA MCMAHON MR#: [id number] : 1990 Acct:[id number] Age/Sex: 35 / F ADM Date: 05/23/25 Loc: US Attending Dr: Dionne Bridges M.D. Ordering Physician: Dionne Bridges M.D. Date of Service: 05/23/25 Procedure(s): US duplex IVC Accession Number(s): [id number] cc: Dank Alvarez M.D.; Dionne Bridges M.D. The [place] [address] Patient Name: TAWANA MCMAHON MRN: [id number] date: 1990 Sex: F Assigned Patient Location: US Current Patient Location: US Accession/Order Number: [id number] Exam Date: 05/23/2025 10:35 Report Date: 05/23/2025 [...] Lay M.D. 05/23/2025 10:38 AM Dictation Location: [place] [address] Electronically authenticated by: [id number] Y Date: 05/23/2025 10:38 Dictated By: Gaby Lay M.D. Signed By: 05/23/25 1041 DD/ 1038 TD/TT: Cafe Lead: Procedure Note Radiology, Radiologist, MD - 05/23/2025 [place] [address] Ultrasound Report Signed Patient: TAWANA MCMAHON RMR#: [id number] : 1990Acct:[id number] Age/Sex: 35 / FADM Date: 05/23/25 Loc: US Attending Dr: Dionne Bridges M.D. Ordering Physician: Dionne Bridges M.D. Date of Service: 05/23/25 Procedure(s): US duplex IVC Accession Number(s): [id number] cc: Dank Alvarez M.D.; Dionne Bridges M.D. [place] [address] Patient Name: TAWANA MCMAHON MRN: [id number] date: 1990 Sex: F Assigned Patient Location: US Current Patient Location: US Accession/Order Number: [id number] Exam Date: 05/23/2025 10:35 Report Date: 05/23/2025 [...] Lay M.D. 05/23/2025 10:38 AM Dictation Location: [place] [address] Electronically authenticated by: [id number] Y Date: 510:38 Dictated By: Gaby Lay M.D. Signed By:05/23/25 1041 DD/ 1038 TD/TT: Cafe Lead: Dionne Bridges MD IMG US PROCEDURES Final Resu lt * Aerobic culture (04/03/2025 10:38 AM EDT) Swab Central portion of right breast / Unknown 04/03/2025 10:38 AM EDT us Andre Hudson DO LAB MICROBIOLOGY - GENERAL ORDER ROGERIO Final Result Performing Organization Address [facility] Co de Phone Number EXTERNAL LAB * Anaerobic culture (04/03/2025 10:38 AM EDT) Swab Central portion of right breast / Unknown 04/03/2025 10:38 AM EDT us Andre Hudson DO LAB MICROBIOLOGY - GENERAL ORDER ROGERIO Final Result Performing Organization Address City/[facility]/ZIP Co de Phone Number EXTERNAL LAB * Pap Smear (07/31/2024 12:00 AM EDT) Swab Cervical swab / Unknown Hudson Nurse [facility] Ob LAB CYTOLOGY ORDERABLES Final Result Performing Organization Address [facility] Co de Phone Number EXTERNAL LAB * THINPREP PAP AND HPV MRNA E6/E7 W/RFL HPV 16,18/45 (08/24/2023 3:25 PM EDT) Andre Hudson DO LAB BLOOD ORDERABLES Final Resul t Performing Organization Address [facility] de Phone Number EXTERNAL LAB from Last 3 Months or Most Recently Relevant to Health Maintenance Insurance [facility] Care Teams Medicinal Chemist Relationship Specialty Start Date End Date Dank Alvarez MD PCP - General Family Medicine 03/24/23
--- OUTSIDE RECORDS SUMMARY | 2025-06-27 07:31 | XMS_ITS | Encounter Summary ---
Author Organization [facility] Address [address] [place] [address] Care Team Providers Care Sebd Teacher Name Role Phone Dank Alvarez MD Primary Care Provider [phone] Deborah Perez [facility] Unavailable [phone] Encounter Details Date Type Department Care Team (Late Contact Info) Description 08/28/2024 Abstract [facility] [address] [place] [address] Andre Treviño DO [address], [place] [address] Social History Tobacco Use Types Packs/Day Years [...] Upcoming Encounters Date Type Department Care Team ([facility] Contact Info) Description 08/06/2025 10:00 AM EDT Office Visit [facility] MONTER[facility] [address] [place] [phone] Andre Treviño DO [address], [facility] documented as of this encounter Visit Diagnoses Not on filedocumented in this encounter Care Teams Sebd Teacher Relationship Specialty Start Date End Date Dank Alvarez MD PCP - General Family Medicine 03/24/23 Deborah Perez, [facility] [address] [place] [address] Journeyman Sheet Metal Worker Behavioral Health 01/08/25 05/07/25 documented as of this encounter
--- OUTSIDE RECORDS SUMMARY | 2025-06-27 07:31 | XMS_ITS | Encounter Summary ---
Author Organization [employer] Address [id number] [address] [place] [address] Care Team Providers Care Sweeper Driver Name Role Phone Dank Alvarez MD Primary Care Provider [phone] Reason for Referral * Specialty Diagnoses / Procedures Referred By Contkahlil t Referred To Contact Vascular Surgery [facility] [address] [place] [address] Phone: tel: fax: Referral ID Status Reason Start Date Expiration Date Visits Re quested Visits Authorized Encounter Details Date Type Department Care Team ([facility] st Contact Info) Description 08/28/2024 Orders Only [facility] [address] [place] [address] Dank Alvarez MD [address] [facility], [place] [address] Social History Tobacco Use Types Packs/Day Years Used Date Smoking Tobacco: Former Cigarettes Smokeless Tobacco: Never Alcohol Use Standard Drinks/Week Comments Not Currently 0 (1 standard drink = 0.6 oz pur e alcohol) [facility] Utilities Answer Date Recorded In the [...] 05/27/2026 8:30 AM EDT Appointment [facility] - Vascular [address] [place] [address] Jani Bridges MD [address], [address] [address] 06/06/2026 8:30 AM EDT Office Visit [facility] [address] [place] [address] Jani Bridges MD [address], [address] [address] documented as of this encounter Procedures Procedure [...] documented as of this encounter Care Teams Sweeper Driver Relationship Specialty Start Date End Date Dank Alvarez MD PCP - General 02/09/24 documented as of this encounter
--- OUTSIDE RECORDS SUMMARY | 2025-06-27 07:32 | XMS_ITS | Encounter Summary ---
Author Organization [facility] Address [address] [place] [address] Care Team Providers Care Customs Director Name Role Phone Dank Alvarez MD Primary Care Provider [phone] [facility] Unavailable [phone] Encounter Details Date Type Department Care Team (Late Contact Info) Description 04/18/2024 Clinisync Result Encounter [facility] External Department Unsolicited Dionne Bridges MD [address], [address] [address] Social History Tobacco Use Types Packs/Day Years [...] Office Visit [facility] [address] [place] [address] Andre Treviño DO [address], [place] [id number] documented as of this encounter Procedures Procedure Name Priority Date/Time Associated Diagnosis Comments VASC US IVC ILIAC DUPLEX COMPLETE 04/18/2024 11:15 AM EDT documented in this encounter Results * Vascular US IVC iliac duplex complete (04/18/2024 11:15 AM EDT) Anatomical Region Laterality Modality Abdomen Ultrasound 04/18/2024 11:1 5 AM EDT Narrative 04/18/2024 11:18 [place] [address] Ultrasound Report Signed Patient: TAWANA MCMAHON MR#: [id number] : 1990 Acct:[id number] Age/Sex: 34 / F ADM Date: 04/17/24 Loc: US Attending Dr: Dionne Bridges M.D. Ordering Physician: Dionne Bridges M.D. Date of Service: 04/17/24 Procedure(s): US duplex IVC Accession Number(s): [id number] cc: Dank Alvarez M.D.; Dionne Bridges M.D. [place] [address] Patient Name: TAWANA MCMAHON MRN: [id number] date: 1990 Sex: F Assigned Patient Location: US Current Patient Location: Accession/Order Number: [id number] Exam Date: 04/17/2024 11:29 Report Date: 04/18/2024 [...] Signed By: 04/18/24 1118 DD/ 1115 TD/TT: Research Analyst: Procedure Note Radiology, Radiologist, - 04/19/2024 [place] [address] Ultrasound Report Signed Patient: TAWANA MCMAHON RMR#: [id number] : 1990Acct:[id number] Age/Sex: 34 / FADM Date: 04/17/24 Loc: US Attending Dr: Dionne Bridges M.D. Ordering Physician: Dionne Bridges M.D. Date of Service: 04/17/24 Procedure(s): US duplex IVC Accession Number(s): [id number] cc: Dank Alvarez M.D.; Dionne Bridges M.D. The [place] [address] Patient Name: TAWANA MCMAHON MRN: [id number] date: 1990 Sex: F Assigned Patient Location: US Current Patient Location: Accession/Order Number: [id number] Exam Date: 04/17/2024 11:29 Report Date: 04/18/2024 [...] Duplex Doppler demonstrates normal waveform and flow, [id number] cm/s within mid IVC. Left iliac stent [...] M.D. Signed By:04/18/24 1118 DD/ 1115 TD/TT: Research Analyst: us [facility] Cyrus NAVARRO IM US PROCEDURES Final Resu lt documented in this encounter Visit Diagnoses Not on filedocumented in this encounter Care Teams Customs Director Relationship Specialty Start Date End Date Dank Alvarez MD PCP - General Family Medicine 03/24/23 Deborah Perez, [facility] [address] [facility] [address] [facility] [address] [place] [address] Still Operator Behavioral Health 01/08/25 05/07/25 documented as of this encounter
--- OUTSIDE RECORDS SUMMARY | 2025-06-27 07:32 | XMS_ITS | Encounter Summary ---
Author Organization [employer] Address [id number] [address] 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; Acute deep vein thrombosis (DVT) of iliac vein of left lower extremity ([facility]) Social History Tobacco Use Types Packs/Day Years Used Date Smoking Tobacco: Former Cigarettes Smokeless Tobacco: Never Alcohol Use Standard Drinks/Week Comments Not Currently 0 (1 standard drink = 0.6 oz pur e alcohol) [facility] Utilities Answer Date Recorded In the past 12 months has th e [employer], gas, oil, or water [employer] threatened to shut off services in your [...] Description 05/27/2026 8:30 AM EDT Appointment [facility] - Vascular [address] [place] [address] Jani Bridges MD [address], [address] [place] [address] 06/06/2026 8:30 AM EDT Office Visit [facility] [address] [place] [address] Jani Bridges MD [address], [address] [place] [address] documented as of this encounter Visit Diagnoses 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
--- OUTSIDE RECORDS SUMMARY | 2025-06-27 07:32 | XMS_ITS | Encounter Summary ---
Author Organization [facility] Address [address] [place] [address] Care Team Providers Care Ditching Machine Operator Name Role Phone Dank Alvarez MD Primary Care Provider [phone] Deborah Perez [facility] Un[facility] [phone] Encounter Details Date Type Department Care Team (Late Contact Info) Description 05/08/2024 Clinisync Result Encounter [facility] External Department Unsolicited Dionne Bridges MD [address], [address] [address] Social History Tobacco Use Types Packs/Day Years [...] Office Visit [facility] [address] [place] [address] Andre Treviño DO [address] [place] [address] documented as of this encounter Procedures Procedure Name Priority Date/Time Associated Diagnosis Comments CT ANGIOGRAM UPPER EXTREMITY LEFT 05/08/2024 8:18 AM EDT documented in this encounter Results * CT angiogram upper extremity left (05/08/2024 8:18 AM EDT) Anatomical Region Laterality Modality Upper Extremities Left Computed Tomog bear 05/08/2024 8:18 AM EDT Narrative 05/08/2024 8:21 [place] [address] CT Scan Report Signed Patient: TAWANA MCMAHON MR#: [id number] : 1990 Acct:[id number] Age/Sex: 34 / F ADM Date: 05/05/24 Loc: CT Attending Dr: Dionne Bridges M.D. Ordering Physician: Dionne Bridges M.D. Date of Service: 05/05/24 Procedure(s): CT angio UE LT Accession Number(s): [id number] cc: Dank Alvarez M.D. [place] [address] Patient Name: TAWANA MCMAHON MRN: [id number] date: 1990 Sex: F Assigned Patient Location: CT Current Patient Location: Accession/Order Number: [id number] Exam Date: 05/05/2024 08:40 Report Date: 05/08/2024 [...] M.D. Signed By: 05/08/24820 DD/ 7 TD/TT: Card Room Manager: Procedure Note Radiology, Radiologist, - 05/09/2024 [place] [address] CT Scan Report Signed Patient: TAWANA MCMAHON RMR#: [id number] : 1990Acct:[id number] Age/Sex: 34 / FADM Date: 05/05/24 Loc: CT Attending Dr: Dionne Bridges M.D. Ordering Physician: Dionne Bridges M.D. Date of Service: 05/05/24 Procedure(s): CT angio UE LT Accession Number(s): [id number] cc: Dank Alvarez M.D. [place] [address] Patient Name: TAWANA MCMAHON MRN: [id number] date: 1990 Sex: F Assigned Patient Location: CT Current Patient Location: Accession/Order Number: [id number] Exam Date: 05/05/2024 08:40 Report Date: 05/08/2024 [...] Mccray M.D. Signed By:05/08/24820 DD/ 7 TD/TT: Card Room Manager: us Dionne Bridges MD IMG CT PROCEDURES Final Resu lt documented in this encounter Visit Diagnoses Not on filedocumented in this encounter Care Teams Ditching Machine Operator Relationship Specialty Start Date End Date Dank Alvarez MD PCP - General Family Medicine 03/24/23 Deborah Perez, [facility] [address] [facility] [address] [place] [address] Edge Trimmer Behavioral Health 01/08/25 05/07/25 documented as of this encounter
--- OUTSIDE RECORDS SUMMARY | 2025-06-27 07:32 | XMS_ITS | Encounter Summary ---
Author Organization [facility] Address [address] [place] [address] Care Team Providers Care Gynecology Teacher Name Role Phone Dank Alvarez MD Primary Care Provider [phone] Deborah Perez [facility] Unavailable [phone] Encounter Details Date Type Department Care Team (Late Contact Info) Description 05/24/2024 Abstract [facility] MONTERO [address] [place] [phone] Andre Treviño DO [address], [facility] Social History Tobacco Use Types Packs/Day Years [...] Upcoming Encounters Date Type Department Care Team ([facility] Contact Info) Description 08/06/2025 10:00 AM EDT Office Visit [facility]TER[facility] [address] [place] [phone] Andre Treviño DO [address], [place] [phone] documented as of this encounter Visit Diagnoses Not on filedocumented in this encounter Care Teams Gynecology Teacher Relationship Specialty Start Date End Date Dank Alvarez MD PCP - General Family Medicine 03/24/23 Deborah Perez, [facility] [address] [place] [address] Regional Education Coordinator Behavioral Health 01/08/25 05/07/25 documented as of this encounter
--- NOTE | 2025-06-27 07:54 | P.CN_ITS ---
Consult Note: HPI Data of Consult Patient: new to practice Consult date: 06/27/25 Requesting Physician: Alka Wharton NP Primary Care Provider: Dank Alvarez MD Consult Narrative Reason for consult: left hip and low back pain Narrative: Tawana Silverman a pleasant 35 year old female with chronic left hip and pelvis pain, worsening after DVT and laparoscopy in 2023. Pt has been cleared by vascular, upcoming appointment with heme/onc for clotting disorders. pending consultation with orthopedics, recently underwent hip and sacrum MRI with minimal findings. Patient has failed to benefit from > 6 weeks of HEP and PT within the last 6 months for her left hip pain. Pain today 5/10 stabbing burning increasing to 10/10 with sitting and rotation of left hip/leg. cc:: CC: Alka Wharton NP Review of Systems ROS Musculoskeletal Reports: back pain and joint pain [facility] Medical History (Updated 06/27/25 @ 07:58 by Alka Wharton NP) COVID-19 ?U07.1 - COVID-19 (ICD-10) Migraine ?G43.909 - Migraine, unspecified, not intractable, without status migrainosus (ICD-10) Constipation ?K59.00 - Constipation, unspecified (ICD-10) Postoperative nausea and vomiting ?R11.2 - Nausea with vomiting, unspecified (ICD-10) ?Z98.890 - Other specified postprocedural states (ICD-10) Vaginal yeast infection ?B37.31 - Acute candidiasis of vulva and vagina (ICD-10) Bacterial vaginosis ?N76.0 - Acute vaginitis (ICD-10) ?B96.89 - Other specified bacterial agents as the cause of diseases classified elsewhere (ICD-10) Endometriosis ?N80.9 - Endometriosis, unspecified (ICD-10) Pelvic pain ?R10.2 - Pelvic and perineal pain (ICD-10) Surgical History History of colonoscopy ?Z98.890 - Other specified postprocedural states (ICD-10) History of hysterectomy ?Z90.710 - Acquired absence of both cervix and uterus (ICD-10) History of laparoscopy ?Z98.890 - Other specified postprocedural states (ICD-10) History of appendectomy ?Z90.49 - Acquired absence of other specified parts of digestive tract (ICD- 10) Family History Other Family history of breast cancer Family history of myocardial infarction Social History Within the past year, how often did you have a drink containing alcohol: never Score interpretation: A score less than 3 is consistent with normal alcohol consumption. 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 @ [employer] Highest level of school completed/degree received: Associate degree: academic program Meds Home Medications and Allergies Home Medications ?Medication ?Instructions ?Recorded ?Confirmed ?Type Lactobacillus acidophilus 10 100 mmu cells PO DAILY 01/23/24 History billion cell capsule (Probiotic) levonorgestrel 0.15 mg-ethinyl 1 tab PO DAILY 12/29/23 01/23/24 History estradiol 30 mcg tablets,3 mos pack(91) hydrocodone 5 mg-acetaminophen 325 1 tab PO Q4H PRN pa in 4 days #16 01/07/24 01/23/24 Rx mg tablet tabs ibuprofen 800 mg tablet 800 mg PO Q8H PRN pain 14 da ys #40 01/07/24 01/23/24 Rx tabs Allergies Allergy/AdvReac Type Severity Reaction Status Date / Time No Known Drug Allergies Allergy Verified 12/29/23 08:11 Exam Constitutional Documenting provider has reviewed patient's vital signs: yes Common normals: no apparent distress, oriented x3, healthy appearing, alert and well nourished General appearance: cooperative HENMT Common normals: normocephalic, hearing grossly normal bilaterally and moist oral mucous membranes Head and scalp: normocephalic Eye Common normals: PERRL Pupil: PERRL Neck & C-Spine Common normals: full ROM General: normal visual inspection Chest Common normals: inspection of chest normal Respiratory Common normals: normal respiratory effort, no retractions and no use of accessory muscles Back & Pelvis Lumbar spine/lower back: ROM limited, pain with ROM, lumbar spinal tenderness and straight leg raise negative bilaterally Sacroiliac joints: SI joint(s) abnormal Other: significant tenderness over left PSIS left positive mark(patricks), gaenslens, thigh thrust, compression test Neuro Common normals: oriented x3 Sensorium/orientation: alert Psych Common normals: mental status grossly normal, thought process normal, cooperative, affect normal, speech normal and activity/motor behavior normal Speech: normal speech Thought process: normal thought process Results Additional Findings Additional findings: If on a controlled substance or opioids, I have checked an [place]AR[place] report on this patient and there are no aberrancies noted in the prescribing history.??If on a controlled substance or opioid a drug screen was completed and reviewed within the last year, and if there has not been a drug screen completed we ordered one today to monitor higher risk, state monitored pain medication use. As part of providing excellent, safe, comprehensive care, the following was completed at our patient's visit: 1. A medication reconciliation and review to ensure accurate knowledge of current/active medications, including asking our patients to inform us about any [id number] medications or herbal remedies/nutritional supplements/alternative remedies. 2. A review to specifically ensure our patients have had annual screening for screening for depression, screening for tobacco use, and screening for unhealthy alcohol use. For concerning screenings had a discussion with the patient, provided patient education, and recommended follow-up with primary care provider when appropriate. If patient noted with a risk of falling, they received education on strength, gait, and balance training to prevent future risk of falling. Portions of this note may have been carried over from the previous visit and updated as appropriate. Please note this office utilizes paper charting in addition to the electronic medical record. A list of current medications, vitals, and PMH is available there as the clinical staff outside of myself do not have access to [employer] charting during the clinic day operations. As part of providing quality comprehensive care the current medications, vitals, and PMH were reviewed in the paper chart. Assessment and Plan Assessment and Plan (1) Sacroiliitis: Assessment and Plan: The patient has had over 3 months of moderate to severe left SIJ pain with functional impairment and inadequate response to conservative care including NSAIDS (unless there are contraindication such as concurrent blood thinners), multiple oral or topical pain medications, and home exercise program/physical therapy.? Patient has completed >6 weeks of guided home exercise program and/or formal physical therapy program without relief of their symptoms.? We discussed the risks and benefits of the procedure with the patient, and we are NOT planning on using sedation as outlined in the guidelines from Medicare unless there is a documented reason that sedation would be strongly recomm ended.??The procedure will be completed with fluoroscopic guidance.? (2) Meralgia paraesthetica: Plan left SIJ injection under fluoroscopy continue topical lidocaine patches PRN continue flexeril PRN continue HEP as tolerated f/u 2 weeks after injection
== END 2025-06-27 07:30 | disposition home or self-care (01) ==
LOC: PM 07:29
PROVIDERS: PCP Family Medicine; Visit Provider Nurse Practitioner
DX: M46.1 Sacroiliitis, not elsewhere classified (principal); G57.10 Meralgia paresthetica, unspecified lower limb
CPT/HCPCS: G0463

== ENCOUNTER 2025-07-02 08:01 | Day surgery (SDC) | payer BC, SELFPAY ==
--- OUTSIDE RECORDS SUMMARY | 2025-06-13 06:30 | XMS_ITS ---
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.3) Referral Organization [facility] Referring Provider First Name Rui Referring Provider Last Name Kim Referring Provider Speciality Family Med icine Referred Provider Pain Management, [facility] Referred Provider Specialty Pain Medicin e Referral Priority Routine REASON FOR VISIT Left hip pain- finished PT, PT did help some, still doing the exercises at home- doesn't relieve the pain care home- worse when sitting or standing for long periods of time, Did have her f/u with Vascular as well- everything was fine there- they said the stent shouldn't be causing the pain, Was taking a muscle relaxer from Dr Treviño for PRN use, Swat Team Member refilled the muscle relaxer for her yesterday [...] Arthralgia of the pelvic region and thigh (798178294) Left hip pain (M25.552) Active confirmed Vital Signs Blood pressure systolic 122 mm Hg 06/13/20 25 Blood pressure diastolic 84 mm Hg 025 Height 62 in 06/13/2025 Weight 133.0 lbs 06/13/2025 BMI 24.32 kg/m2 06/13/2025 Encounters Encounter Location Date Provider Diagnosis [facility] [address] [place] [address] 06/13/2025 Rui Hoy Sacrococcygeal disor ders, not elsewhere classified M53.3 and Left hip pain M25.552 Assessments Encounter Date Diagnosis (ICD Code) Assessment Notes Treatment Notes Treatment Clinical Notes Section Notes 06/13/2025 Sacrococcygeal disorders, not elsewhere classified (ICD-10 - M53.3) 06/13/2025 Left hip pain (ICD-10 - M25.552) Plan Of Treatment Referrals Referral Date Details 06/13/2025 06/13/2025, [facility] Pain Management Next Appt Details Provider Name:Yanni Durand , 06/11/2026 08:30:00 AM, [address] [place], [address], Progress Notes * Tawana MCMAHON RDOB: [birth year] (35 yo F)Acc No.[id number]:06/13/2025 Progress Note Patient: Tawana ARZOLA Provider: Hanane Alvarez ([facility])MD :1990 A ge:35 Y S ex:Female Date:06/13/2025 Address:[address] [place], [place] [phone] Check In:10:21 AM ESTCheck O ut:11:19 AM EST Subjective: * Chief Complaints: * L eft hip pain- finished PT, PT did help some, still doing the exercises at home- doesn't relieve the pain care home- worse when sitting or standing for long [...] 06/13/2025 Generated for Jeffery gutiérrez/Macario/eTransmitting on: 0 07/02/2025 08:02 AM EDT History and Physical Notes * [...] Not es 06/13/2025 Rui Alvarez Pain Management, [facility]
--- OUTSIDE RECORDS SUMMARY | 2025-06-13 07:16 | XMS_ITS ---
Author Organization The [facility] in [place] Address [address] [place] [address] Care Team Providers Care Car Chaser Name Role Phone Rui Alvarez Primary Care Provider REASON FOR VISIT Arthrocentesis Encounters Encounter Location Date Provider Diagnosis [facility] [address] [place] [address] 06/13/2025 Rui Alvarez Left hip pain M25.55 2 Assessments Encounter Date Diagnosis (ICD Code) Assessment Notes Treatment Notes Treatment Clinical Notes Section Notes 06/13/2025 Left hip pain (ICD-10 - M25.552) Plan Of Treatment Pending Test Test Name Order Date US ARTHROCENTESIS, WITH US GUIDANCE 05/17 Next Appt Details Provider Name:Yanni Durand , 06/11/2026 08:30:00 AM, [address] [place], [address], Progress Notes * Tawana MCMAHON RDOB: 2 (35 yo F)Acc No.[id number]:06/13/2025 Patient: Slim CLEANINGTawana SIEGEL :1990 A ge:35 Y S ex:Female Address:[address] [place] [address], [phone] Subjective: * Chief Complaints: * A rthrocentesis * Medical History: * Surgical History: * Hospitalization/Major Diagno stic Procedure: * Medications: Objective: * Vitals: * Physical Examination: Assessment: * Assessment: 1. L eft hip pain - M25.552 (Primary) Plan: * Treatment: * Procedure Codes: * true * Date: Generated for Jeffery gutiérrez/Macario/Dyllan on: 0 07/02/2025 08:03 AM EDT
--- OUTSIDE RECORDS SUMMARY | 2025-06-25 06:50 | XMS_ITS ---
Author Organization [facility] [place] Address [address] [place] [address] Care Team Providers Care Pipe Chipper Name Role Phone Rui Alvarez Primary Care Provider Reason For Referral Diagnosis 1 Left hip pain (M25.5 52) Referral Organization [facility] Referring Provider First Name Rui Referring Provider Last Name Kim Referring Provider [facility] icine Referred Provider Patricio Ledesma Referred Provider Specialty Orthopedic S urgery Referral Priority Routine REASON FOR VISIT hip injection Encounters Encounter Location Date Provider Diagnosis [facility] [address] [place] [address] 06/25/2025 Rui Alvarez Left hip pain M25.55 2 Assessments Encounter Date Diagnosis (ICD Code) Assessment Notes Treatment Notes Treatment Clinical Notes Section Notes 06/25/2025 Left hip pain (ICD-10 - M25.552) Plan Of Treatment Referrals Referral Date Details 06/26/2025 06/26/2025, Patricio garcia Next Appt Details Provider Name:Yanni Durand , 06/11/2026 08:30:00 AM, [address] [place], [address], Progress Notes * Tawana MCMAHON RDOB: 2 (35 yo F)Acc No.[id number]:06/25/2025 Patient: Tawana ARZOLA :1990 A ge:35 Y S ex:Female Address:[address] [place] [address], [address] Subjective: * Chief Complaints: * H ip injection * Medical History: * Surgical History: * Hospitalization/Major Diagno stic Procedure: * Medications: Objective: * Vitals: * Physical Examination: Assessment: * Assessment: 1. L eft hip pain - M25.552 (Primary) Plan: * Treatment: * Procedure Codes: * true * Date: Generated for Jeffery gutiérrez/Macario/eTransmitting on: 0 07/02/2025 08:03 AM EDT Consultation Request Notes Referral Date Referring Provider Referred Provider Not es 06/26/2025 Rui Alvarez Justin
--- OUTSIDE RECORDS SUMMARY | 2025-07-02 08:03 | XMS_ITS | Patient Health Record ---
Author Organization [facility] in [place] Address [address] [place] [address] Care Team Providers Care Patch Press Operator Name Role Phone Rui Alvarez Primary Care Provider Jonathon Hernandez Unavailable [phone] Yanni Durand Unavailable [phone] Allergies No Known Allergies Results Component Value Reference Range Notes CBC AUTO DIFF Reviewed date:07/26/2024 09:52:38 PM Interpretation: Performing Lab: Notes/Report: [facility] , White Blood Count 7.2 4.0-11.0 10 [...] 0.00-0.03 10 3/uL Performing Lab: see note - [facility] LB Erythrocyte Sedimentation Ra te Reviewed date:07/26/2024 09:52:38 PM Interpretation: Performing Lab: Notes/Report: [facility] , Erythrocyte Sedimentation Rate 6 <=20 mm/hr Performing Lab: see note [facility] Antistreptolysin O Ab Reviewed date:10/11/2024 06:04:01 PM Interpretation: Performing Lab: Notes/Report: [facility] , Antistreptolysin O Ab 433.4 0.0-200.0 IU/mL Performed at: [address] [id number] Supervisor Burling And Joining: Ayo Pardo PhD, Phone: [phone] Performing Lab: see note [facility] LB RHEUMATOID FACTOR Reviewed date:10/11/2024 06:04:01 PM Interpretation: Performing Lab: Notes/Report: [facility] , Rheumatoid Factor (RF) <10.0 <14.0 IU/mL Performing Lab: see note [facility] AGUSTIN by IFA Reviewed date:10/11/2024 06:04:01 PM Interpretation: Performing Lab: Notes/Report: [facility] , Antinuclear Antibodies, IFA Negative . Negative <1:80 Borderline 1:80 Positive >1:80 ICAP nomenclature: AC-0 For more information about Hep-2 cell patterns use ANApatterns.org, the official website for the International Consensus on Antinuclear Antibody (AGUSTIN) Patterns (ICAP). Performed at: [address] [id number] Supervisor Burling And Joining: Ayo Pardo PhD, Phone: [phone] Performing Lab: see note LC - [facility] LB Anti-dsDNA Antibodies Reviewed date:09/04/2024 08:37:19 PM Interpretation: Performing Lab: Notes/Report: [facility] , Anti-dsDNA Antibodies 3 0-9 IU/mL Negative <5 Equivocal 5 - 9 Positive >9 Performed at: [address] [id number] Supervisor Burling And Joining: Ayo Pardo PhD, Phone: [phone] Performing Lab: see note LC - [facility] LB Antistreptolysin O Ab Reviewed date:09/04/2024 08:37:19 PM Interpretation: Performing Lab: Notes/Report: [facility] , Antistreptolysin O Ab 408.9 0.0-200.0 IU/mL Performed at: [address] [id number] Supervisor Burling And Joining: Ayo Pardo PhD, Phone: [phone] Performing Lab: see note LC - [facility] LB CT HIP LT WO CON Reviewed date:08/04/2024 04:10:35 PM Interpretation: Performing Lab: Notes/Report: Source Facility: [place] [address] CT Scan Report Signed Patient: KIMBERLY SILVERMAN MR#: [id number] : 1990 Acct:[id number] Age/Sex: 34 / F ADM Date: 08/04/24 Loc: CT Attending Dr: Usman Alvarez M.D. Ordering Physician: Usman Alvarez M.D. Date of Service: 08/04/24 Procedure(s): CT hip LT wo con Accession Number(s): [id number] cc: Usman Alvarez M.D. [place] [address] Patient Name: KIMBERLY SILVERMAN MRN: [id number] date: 1990 Sex: F Assigned Patient Location: CT Current Patient Location: LAB Accession/Order Number: [id number] Exam Date: 08/04/2024 08:35 Report Date: 08/04/2024 [...] MINISTERIO MCCRAY Date: 08/04/2024 14:43 Dictated By: Ministerio Mccray M.D. Signed By: 08/04/245 DD/ 42 TD/TT: Employee Health Rn: [place] [address] CT Scan Report Signed Patient: TYREE SILVERMAN MR#: [id number] : 1990 Acct:[id number] Age/Sex: 34 / F ADM Date: 08/04/24 Loc: CT Attending Dr: Cole Alvarez M.D. Ordering Physician: Usman Alvarez M.D. Date of Service: 08/04/24 Procedure(s): CT hip LT wo con Accession Number(s): [id number] cc: Usman Alvarez M.D. [place] [address] Patient Name: KIMBERLY SILVERMAN MRN: [id number]:[id number] date: 1990 Sex: F Assigned Patient Location: CT Current Patient Location: LAB Accession/Order Numb er: [id number] Exam Date: 08/04/2024 08:35 Report Date: 08/04/2024 [...] M.D. Signed By: 08/04/241444 DD/ 42 TD/TT: Employee Health Rn: Esteban DORADO HPV,Age Gdln Reviewed date:08/04/2024 01:03:13 PM Interpretation: Performing Lab: Notes/Report: JESUS-ALONE VAGINA [facility] , Age Gdln ACOG Testing Note . TESTS RESULT FLAG UNITS REF RANGE LAB Clinician Provided Cytology Information Source.............Vagi na No. of containers..01 ThinPrep Vial Age Algo ACOG Eneida... 30-65 01 FLAG LEGEND: L-Low Normal,H-High Normal,LL-Alert Low,HH-Alert High <-Panic Low,>-Panic High,A-Abnormal,AA-Crit ical Abnormal Performed at: 01 =G [address] [address] Sandy Lemon MD, IGP, Aptima HPV, rfx 16/18,45 Note . TESTS RESULT FLAG UNITS REF RANGE LAB DIAGNOSIS: 02 NEGATIVE FOR INTRAEPITHELIAL LESION OR MALIGNANCY. Specimen adequacy: 02 Satisfactory for evaluation. Performed by: 02 Sola Aviles, Woven Wood Shade Assembler ([facility]) . 02 Note: Note 03 The Pap [...] Low,>-Panic High,A-Abnormal,AA-Crit ical Abnormal Performed at: 02 KWCYT [facility] [place] [facility] [address] [place] [address] Holden Croft MD, 03 WB [facility] [address] [address] Sandy Lemon MD, HPV Aptima Negative Negative This nucleic acid amplification test detects fourteen high- risk HPV types (16,18,31,33,35,39,45,5 1,52,56,58,59,66,68) without differentiation. Performed at: =G - [address] [id number] Supervisor Burling And Joining: Sandy Lemon MD, Phone: [phone] Performed at: [facility] [address] [place], [place] [id number] Supervisor Burling And Joining: Holden Croft MD, Phone: [phone] Performing Lab: see note - [facility] LB Antistreptolysin O Ab Reviewed date:07/31/2024 09:11:06 PM Interpretation: Performing Lab: Notes/Report: [facility] , Antistreptolysin O Ab 437.1 0.0-200.0 IU/mL Performed at: [address] [id number] Supervisor Burling And Joining: Ayo Pardo PhD, Phone: [phone] Performing Lab: see note [facility] URIC ACID SERUM Reviewed date:07/26/2024 09:52:37 PM Interpretation: Performing Lab: Notes/Report: [facility] , Uric Acid 3.4 2.6-6.0 mg/dL Performing Lab: see note - [facility] LB RHEUMATOID FACTOR Reviewed date:07/31/2024 09:11:06 PM Interpretation: Performing Lab: Notes/Report: [facility] , Rheumatoid Factor (RF) <10.0 <14.0 IU/mL Performing Lab: see note [facility] LB CRP Reviewed date:07/26/2024 09:52:37 PM Interpretation: Performing Lab: Notes/Report: [facility] , C Reactive Protein <0.50 <=0.50 mg/dL Performing Lab: see note - [facility] LB AGUSTIN by IFA Reviewed date:07/31/2024 09:11:06 PM Interpretation: Performing Lab: Notes/Report: [facility] , Antinuclear Antibodies, IFA Negative . Negative <1:80 Borderline 1:80 Positive >1:80 ICAP nomenclature: AC-0 For more information about Hep-2 cell patterns use ANApatterns.org, the official website for the International Consensus on Antinuclear Antibody (AGUSTIN) Patterns (ICAP). Performed at: [facility] [address] [id number] Supervisor Burling And Joining: Ayo Pardo PhD, Phone: [phone] Performing Lab: see note - [facility] LB US arterial duplex LE RT Reviewed date:07/23/2024 08:51:20 PM Interpretation: Performing Lab: Notes/Report: Source Facility: [place] [address] Ultrasound Report Signed Patient: KIMBERLY SILVERMAN MR#: [id number] : 1990 Acct:[id number] Age/Sex: 34 / F ADM Date: 07/21/24 Loc: US Attending Dr: Usman Alvarez M.D. Ordering Physician: Usman Alvarez M.D. Date of Service: 07/21/24 Procedure(s): US arterial duplex LE BI Accession Number(s): [id number] cc: Usman Alvarez M.D. [place] [address] Patient Name: KIMBERLY SILVERMAN MRN: [id number] date: 1990 Sex: F Assigned Patient Location: Current Patient Location: Accession/Order Number: [id number] Exam Date: 07/21/2024 07:30 Report Date: 07/22/2024 [...] M.D. Signed By: 07/22/24617 DD/ 5 TD/TT: Employee Health Rn: [place] [address] Ultrasound Report Signed Patient: TYREE SILVERMAN MR#: [id number] : 1990 Acct:[id number] Age/Sex: 34 / F ADM Date: 07/21/24 Loc: US Attending Dr: Cole Alvarez M.D. Ordering Physician: Usman Alvarez M.D. Date of Service: 07/21/24 Procedure(s): US arterial duplex LE BI Accession Number(s): [id number] cc: Usman Alvarez M.D. [place] [id number] Patient Name: KIMBERLY SILVERMAN MRN: [id number] date: 1990 Sex: F Assigned Patient Location: US Current Patient Location: Accession/Order Numb er: [id number] Exam Date: 07/21/2024 07:30 Report Date: 07/22/2024 [...] M.D. Signed By: 07/22/24617 DD/ 5 TD/TT: Employee Health Rn: JOSI hip LT 2V w/ pelvis Reviewed date:07/23/2024 08:51:20 PM Interpretation: Performing Lab: Notes/Report: Source Facility: [facility] [place] [address] [place] [address] XRay Report Signed Patient: KIMBERLY SILVERMAN MR#: [id number] : 1990 Acct:[id number] Age/Sex: 34 / F ADM Date: 07/21/24 Loc: US Attending Dr: Usman Alvarez M.D. Ordering Physician: Usman Alvarez M.D. Date of Service: 07/21/24 Procedure(s): XR hip LT 2V w/ pelvis Accession Number(s): [id number] cc: Usman Alvarez M.D. [place] [id number] Patient Name: KIMBERLY SILVERMAN MRN: [id number] date: 1990 Sex: F Assigned Patient Location: Current Patient Location: US Accession/Order Number: [id number] Exam Date: 07/21/2024 08:05 Report Date: 07/22/2024 [...] By: Juan Francisco Suarez M.D. Signed By: 07/22/24 0737 DD/ 0735 TD/TT: Employee Health Rn: [place] [address] XRay Report Signed Patient: TYREE SILVERMAN MR#: [id number] : 1990 Acct:[id number] Age/Sex: 34 / F ADM Date: 07/21/24 Loc: US Attending Dr: oCle Alvarez M.D. Ordering Physician: Usman Alvarez M.D. Date of Service: 07/21/24 Procedure(s): XR hip LT 2V w/ pelvis Accession Number(s): [id number] cc: Usman Alvarez M.D. [place] [address] Patient Name: KIMBERLY SILVERMAN MRN: [id number] date: 1990 Sex: F Assigned Patient Location: Current Patient Location: US Accession/Order Numb er: [id number] Exam Date: 07/21/2024 08:05 Report Date: 07/22/2024 [...] Francisco Suarez M.D. Signed By: 07/22/2437 DD/ TD/TT: Employee Health Rn: XR lumbar spine min 4V Reviewed date:07/23/2024 08:51:20 PM Interpretation: Performing Lab: Notes/Report: Source Facility: [place] [address] XRay Report Signed Patient: KIMBERLY SILVERMAN MR#: [id number] : 1990 Acct:[id number] Age/Sex: 34 / F ADM Date: 07/21/24 Loc: US Attending Dr: Usman Alvarez M.D. Ordering Physician: Usman Alvarez M.D. Date of Service: 07/21/24 Procedure(s): XR lumbar spine min 4V Accession Number(s): [id number] cc: Usman Alvarez M.D. [place] [address] Patient Name: KIMBERLY SILVERMAN MRN: [id number] date: 1990 Sex: F Assigned Patient Location: US Current Patient Location: US Accession/Order Number: [id number] Exam Date: 07/21/2024 08:05 Report Date: 07/21/2024 [...] Dictated By: Morro Zayas M.D. Signed By: 07/21/24 1045 DD/ 1043 TD/TT: Employee Health Rn: [place] [address] XRay Report Signed Patient: TYREE SILVERMAN MR#: [id number] : 1990 Acct:[id number] Age/Sex: 34 / F ADM Date: 07/21/24 Loc: Attending Dr: Cole Alvarez M.D. Ordering Physician: Usman Alvarez M.D. Date of Service: 07/21/24 Procedure(s): XR lum bar spine min 4V Accession Number(s): [id number] cc: Usman Alvarez M.D. [place] [id number] Patient Name: KIMBERLY SILVERMAN MRN: [id number] date: 1990 Sex: F Assigned Patient Location: US Current Patient Location: US Accession/Order Numb er: [id number] Exam Date: 07/21/2024 08:05 Report Date: 07/21/2024 [...] Dictated By: Morro Zayas M.D. Signed By: 07/21/24 1045 DD/ 1043 TD/TT: Employee Health Rn: US venous doppler LE BI Reviewed date:07/23/2024 08:51:20 PM Interpretation: Performing Lab: Notes/Report: Source Facility: [place] [address] Ultrasound Report Signed Patient: KIMBERLY SILVERMAN MR#: [id number] : 1990 Acct:[id number] Age/Sex: 34 / F ADM Date: 07/21/24 Loc: US Attending Dr: Usman Alvarez M.D. Ordering Physician: Usman Alvarez M.D. Date of Service: 07/21/24 Procedure(s): US venous doppler LE LT Accession Number(s): [id number] cc: Usman Alvarez M.D. [place] [address] Patient Name: KIMBERLY SILVERMAN MRN: [id number]:[id number] date: 1990 Sex: F Assigned Patient Location: Current Patient Location: US Accession/Order Number: [id number] Exam Date: 07/21/2024 07:30 Report Date: 07/21/2024 [...] By: Juan Francisco Suarez M.D. Signed By: 07/21/241122 DD/ 20 TD/TT: Employee Health Rn: [place] [address] Ultrasound Report Signed Patient: TYREE SILVERMAN MR#: [id number] : 1990 Acct:[id number] Age/Sex: 34 / F ADM Date: 07/21/24 Loc: US Attending Dr: Cole Alvarez M.D. Ordering Physician: Usman Alvarez M.D. Date of Service: 07/21/24 Procedure(s): US ivelisse ous doppler LE LT Accession Number(s): [id number] cc: Usman Alvarez M.D. [place] [address] Patient Name: KIMBERLY SILVERMAN MRN: [id number]:[id number] date: 1990 Sex: F Assigned Patient Location: Current Patient Location: US Accession/Order Numb er: [id number] Exam Date: 07/21/2024 07:30 Report Date: 07/21/2024 [...] By: Juan Francisco Suarez M.D. Signed By: 07/21/241122 DD/ 20 TD/TT: Employee Health Rn: CBC AUTO DIFF Reviewed date:10/10/2024 05:51:18 PM Interpretation: Performing Lab: Notes/Report: [facility] , White Blood Count 5.4 4.0-11.0 [...] Performing Lab: see note ML - [facility] LB XR Sacroiliac joints (3 view s) * Reviewed date:11/24/2024 08:58:54 AM Interpretation: Performing Lab: Notes/Report: SED RATE and CRP Reviewed date:11/23/2024 04:02:45 PM Interpretation: Performing Lab:[facility], [address] [place], [address] Notes/Report: FACILITY: [facility] [id number] SED RATE WEST. 5 (0 - 25) MM/HR CRP EXTENDED RANGE <0.30 (0.00 - 5.00) MG/L HLA-B27 Reviewed date:11/25/2024 10:23:16 AM Interpretation: Performing Lab:ARELI, [facility] [address], [place] [id number] [place] Notes/Report: FASTING:UNKNOWN FASTING: UNKNOWN HLA-B27 ANTIGEN [...] ESTERASE (BRUCE) - NEG - NEG MG/DL FERRITIN (Not yet reviewed b y provider) Interpretation: Performing Lab: Notes/Report: [facility] , Ferritin 64.0 8.0-252.0 ng/mL Performing Lab: see note ML - [facility] LB CBC AUTO DIFF (Not yet revie wed by provider) Interpretation: Performing Lab: Notes/Report: [facility] , White Blood Count 7.1 4.0-11.0 10 [...] 3/uL Performing Lab: see note ML - [facility] US duplex IVC Reviewed date:05/23/2025 12:53:36 PM Interpretation: Performing Lab: Notes/Report: Source Facility: [place] [address] Ultrasound Report Signed Patient: KIMBERLY SILVERMAN MR#: [id number] : 1990 Acct:[id number] Age/Sex: 35 / F ADM Date: 05/23/25 Loc: US Attending Dr: Jani Bridges M.D. Ordering Physician: Jani Bridges M.D. Date of Service: 05/23/25 Procedure(s): US duplex IVC Accession Number(s): [id number] cc: Usman Alvarez M.D.; Jani Bridges M.D. [place] [address] Patient Name: KIMBERLY SILVERMAN MRN: [id number] date: 1990 Sex: F Assigned Patient Location: US Current Patient Location: US Accession/Order Number: [id number] Exam Date: 05/23/2025 10:35 Report Date: 05/23/2025 [...] Lay M.D. 05/23/2025 10:38 AM Dictation Location: [place] [address] Electronically authenticated by: [id number] Date: 05/23/2025 10:38 Dictated By: Gaby Lay M.D. Signed By: 05/23/25 1041 DD/ 1038 TD/TT: Employee Health Rn: [place] [address] Ultrasound Report Signed Patient: TYREE SILVERMAN MR#: [id number] : 1990 Acct:[id number] Age/Sex: 35 / F ADM Date: 05/23/25 Loc: US Attending Dr: Abigail Bridges M.D. Ordering Physician: Jani Bridges M.D. Date of Service: 05/23/25 Procedure(s): US dup lavonne IVC Accession Number(s): [id number] cc: Usman Alvarez M.D. ; Jani Bridges M.D. [place] [address] Patient Name: KIMBERLY SILVERMAN MRN: [id number] date: 1990 Sex: F Assigned Patient Location: US Current Patient Location: US Accession/Order Numb er: [id number] Exam Date: 05/23/2025 10:35 Report Date: 05/23/2025 [...] Lay M.D. 05/23/2025 10:38 AM Dictation Location: [place] [address] Electronically authenticated by: [id number] Y Date: 05/23/2025 10:38 Dictated By: Gaby Lay M.D. Signed By: 05/23/25 1041 DD/ 1038 TD/TT: Employee Health Rn: Aerobic Culture Reviewed date:04/10/2025 03:49:18 PM Interpretation: [...] : O:STAAUR Isolated Organism: 2.1 Antibiotic Interpretation ONELI Status Ciprofloxacin Ciprofloxacin S F Erythromycin Erythromycin [...] Clindamycin S F Aerobic Culture Performed at: [facility] Aerobic Culture Organism: Staphylococcus aureus : O:STAAUR [...] Clindamycin Clindamycin S F Aerobic Culture [address] [place], [place] [id number] Aerobic Culture Organism: Staphylococcus aureus : O:STAAUR [...] F Clindamycin Clindamycin S F Aerobic Culture Supervisor Burling And Joining: Kristel Pardo PhD, Phone: [phone] Aerobic Culture Organism: Staphylococcus aureus : O:STAAUR [...] LC - [facility] LB SEE REPORT - Teacher Resource Id information not found for OBX-specific technical producer legend Anaerobic Culture Reviewed date:04/10/2025 03:49:18 [...] Interpretation ONEIL Status Aerobic Culture Performed at: [facility] Aerobic Culture Organism: Staphylococcus aureus : O:STAAUR Isolated Organism: 1.1 Antibiotic Interpretation ONEIL Status Aerobic Culture [address] [place], [place] [id number] Aerobic Culture Organism: Staphylococcus aureus : O:STAAUR Isolated Organism: 1.1 Antibiotic Interpretation ONEIL Status Aerobic Culture Supervisor Burling And Joining: Kristel Pardo PhD, Phone: [phone] Aerobic Culture Organism: Staphylococcus aureus : O:STAAUR [...] LC - [facility] LB SEE REPORT - Teacher Resource Id information not found for OBX-specific technical producer legend MR pelvis wo/w con Reviewed date:12/18/2024 08:59:24 PM Interpretation: Performing Lab: Notes/Report: Source Facility: [place] [address] Magnetic Resonance Report Signed Patient: KIMBERLY SILVERMAN MR#: [id number] : 1990 Acct:[id number] Age/Sex: 34 / F ADM Date: 12/18/24 Loc: MRI Attending Dr: SolStaff Physician Abad Ordering Physician: Flakito Swanson M.D. Date of Service: 12/18/24 Procedure(s): MR pelvis wo/w con Accession Number(s): [id number] cc: Usman Alvarez M.D.; Flakito Swanson M.D. [place] [address] Patient Name: KIMBERLY SILVERMAN MRN: [facility]:[id number] date: 1990 Sex: F Assigned Patient Location: MRI Current Patient Location: MRI Accession/Order Number: [id number] Exam Date: 12/18/2024 08:00 Report Date: 12/18/2024 [...] Signed By: 12/18/24 1702 DD/ 1659 TD/TT: Employee Health Rn: [place] [address] Magnetic Resonance Report Signed Patient: TYREE SILVERMAN MR#: [id number] : 1990 Acct:[id number] Age/Sex: 34 / F ADM Date: 12/18/24 Loc: MRI Attending Dr: Abelardo Swanson M.D. Ordering Physician: Flakito Swanson M.D. Date of Service: 12/18/24 Procedure(s): MR pel vis wo/w con Accession Number(s): [id number] cc: Usman Alvarez M.D. ; Physician,Non-Staff Pollo The [place] [id number] Patient Name: KIMBERLY SILVERMAN MRN: [id number]:[id number] date: 1990 Sex: F Assigned Patient Location: MRI Current Patient Location: MRI Accession/Order Numb er: [id number] Exam Date: 12/18/2024 08:00 Report Date: 12/18/2024 [...] Signed By: 12/18/24 1702 DD/ 1659 TD/TT: Employee Health Rn: hip LT wo con Reviewed date:12/18/2024 08:59:24 PM Interpretation: Performing Lab: Notes/Report: Source Facility: [place] [address] Magnetic Resonance Report Signed Patient: KIMBERLY SILVERMAN MR#: [id number] : 1990 Acct:[id number] Age/Sex: 34 / F ADM Date: 12/18/24 Loc: MRI Attending Dr: Swati-Staff Physician Abad Ordering Physician: Flakito Swanson M.D. Date of Service: 12/18/24 Procedure(s): hip LT wo con Accession Number(s): [id number] cc: Usman Alvarez M.D.; Flakito Swanson M.D. [place] [address] Patient Name: KIMBERLY SILVERMAN MRN: TBH:[id number] date: 1990 Sex: F Assigned Patient Location: MRI Current Patient Location: MRI Accession/Order Number: [id number] Exam Date: 12/18/2024 08:00 Report Date: 12/18/2024 [...] By: Ministerio Paredes M.D. Signed By: 12/18/24 1707 DD/ 4267 TD/TT: Employee Health Rn: [place] [address] Magnetic Resonance Report Signed Patient: TYREE SILVERMAN MR#: [id number] : 1990 Acct:[id number] Age/Sex: 34 / F ADM Date: 12/18/24 Loc: MRI Attending Dr: Abelardo Swanson M.D. Ordering Physician: PhysicianSolStaff Pollo Date of Service: 12/18/24 Procedure(s): MR hip LT wo con Accession Number(s): [id number] cc: Usman Alvarez M.D. ; Flakito Swanson M.D. [place] [id number] Patient Name: KIMBERLY SILVERMAN MRN: [id number]:[id number] date: 1990 Sex: F Assigned Patient Location: MRI Current Patient Location: MRI Accession/Order Numb er: [id number] Exam Date: 12/18/2024 08:00 Report Date: 12/18/2024 [...] Signed By: 12/18/24 1702 DD/ 1659 TD/TT: Employee Health Rn: Total Protein 24 Hour Urine Reviewed date:10/22/2024 06:28:17 PM Interpretation: Performing Lab: Notes/Report: [facility] , Total Protein Urine Random 8.4 <=11.9 mg/dL Total Volume 24 Hour Urine 825 Total Protein 24 Hour Urine 69.3 <=149.1 mg/24hr Performing Lab: see note ML - [facility] US renal bladder Reviewed date:10/22/2024 06:28:17 PM Interpretation: Performing Lab: Notes/Report: Source Facility: [facility]-[address] [place] [address] [place] [address] Ultrasound Report Signed Patient: KIMBERLY SILVERMAN MR#: [id number] : 1990 Acct:[id number] Age/Sex: 34 / F ADM Date: 10/20/24 Loc: US Attending Dr: Usman Alvarez M.D. Ordering Physician: Usman Alvarez M.D. Date of Service: 10/20/24 Procedure(s): US renal bladder Accession Number(s): [id number] cc: Usman Alvarez M.D. [address] [address] Patient Name: KIMBERLY SILVERMAN MRN: [id number] date: 1990 Sex: F Assigned Patient Location: US Current Patient Location: LAB Accession/Order Number: [id number] Exam Date: 10/20/2024 08:30 Report Date: 10/20/2024 [...] Signed By: 10/20/24 1341 DD/ 1338 TD/TT: Employee Health Rn: The [address] [address] Ultrasound Report Signed Patient: TYREE SILVERMAN MR#: [id number] : 1990 Acct:[id number] Age/Sex: 34 / F ADM Date: 10/20/24 Loc: US Attending Dr: Cole Alvarez M.D. Ordering Physician: Usman Alvarez M.D. Date of Service: 10/20/24 Procedure(s): US stepahnie al bladder Accession Number(s): [id number] cc: Usman Alvarez M.D. [place] [address] Patient Name: KIMBERLY SILVERMAN MRN: TBH:[id number] date: 1990 Sex: F Assigned Patient Location: US Current Patient Location: LAB Accession/Order Numb er: [id number] Exam Date: 08:30 Report Date: 10/20/2024 13:38 [...] Signed By: 10/20/24 1341 DD/ 1338 TD/TT: Employee Health Rn: [place] echo doppler complete Reviewed date:10/22/2024 06:28:17 PM Interpretation: Performing Lab: Notes/Report: Source Facility: [place] [address] [place] [address] Cardiology Report Signed Patient: KIMBERLY SILVERMAN MR#: [id number] : 1990 Acct:[id number] Age/Sex: 34 / F ADM Date: 10/20/24 Loc: US Attending Dr: Usman Alvarez M.D. Ordering Physician: Usman Alvarez M.D. Date of Service: 10/20/24 Procedure(s): CA echo doppler complete Accession Number(s): [id number] cc: Usman Alvarez M.D. Patient Name: KIMBERLY SILVERMAN MR#: [id number] : 1990 Exam Date: 10/20/2024 Ordering Doctor: [...] 23.33 ml Dictated by: Rodrigue De Los Satnos MD on 10/20/2024 at 17:13 Approved by: Rodrigue De Los Santos MD on 10/20/2024 at 17:29 Dictated By: Rodrigue De Los Santos M.D. Signed By: 10/20/241729 DD/ 172 TD/TT: Employee Health Rn: [place] [address] Cardiology Report Signed Patient: TYREE SILVERMAN MR#: [id number] : 1990 Acct:[id number] Age/Sex: 34 / F ADM Date: 10/20/24 Loc: US Attending Dr: Cole Alvarez M.D. Ordering Physician: Usman Alvarez M.D. Date of Service: 10/20/24 Procedure(s): CA ech o doppler complete Accession Number(s): [id number] cc: Usman Alvarez M.D. Patient Name: KIMBERLY SILVERMAN MR#: [id number] : 1990 Exam Date: 10/20/2024 Ordering Doctor: [...] De Los Santos M.D. Signed By: 10/20/24 858 DD/ 28 TD/TT: Employee Health Rn: Erythrocyte Sedimentation Ra te Reviewed date:10/10/2024 05:51:18 PM Interpretation: Performing Lab: Notes/Report: [facility] , Erythrocyte Sedimentation Rate 4 <=20 mm/hr Performing Lab: see note ML - [facility] LB URIC ACID SERUM Reviewed date:10/10/2024 05:51:18 PM Interpretation: Performing Lab: Notes/Report: [facility] , Uric Acid 3.6 2.6-6.0 mg/dL Performing Lab: see note ML - [facility] LB PROF 14(COMP METB) Reviewed date:10/10/2024 05:51:18 PM Interpretation: Performing Lab: Notes/Report: [facility] , Sodium 140 136-145 mmol/L Potassium 3.8 [...] 1.1 Performing Lab: see note ML - [facility] LB CRP Reviewed date:10/10/2024 05:51:18 PM Interpretation: Performing Lab: Notes/Report: [facility] , C Reactive Protein <0.50 <=0.50 mg/dL Performing Lab: see note ML - [facility] LB PROF CHEM 8 (BAS METB) (Not yet reviewed by provider) Interpretation: Performing Lab: Notes/Report: [facility] , Sodium 135 136-145 mmol/L Potassium 3.6 3.5-5.1 mmol/L Chloride 103 98-107 mmol/L Carbon Dioxide 28.9 21.0-32.0 mmol/L Anion Gap 6.7 Glucose 87 74-106 mg/dL Blood Urea Nitrogen 12.0 7.0-18.0 mg/dL Creatinine 0.62 0.55-1.02 mg/dL Estimated GFR ( Cheyanne >60 >=60 mL/min/1.73m 2 Estimated GFR (Non- Camila >60 >=60 mL/min/1.73m 2 BUN Creatinine Ratio 19.4 Calcium 8.8 8.5-10.1 mg/dL Performing Lab: see note - [facility] LB IRON AND TIBC (Not yet revie wed by provider) Interpretation: Performing Lab: Notes/Report: [facility] , Iron 52.0 50.0-170.0 ug/dL Total Iron Binding Capacity 226.0 250.0-450.0 ug/dL Percent Iron Saturation 23.0 Performing Lab: see note ML - [facility] Reason For Referral Diagnosis 1 Elevated anti-strept olysin O antibodies (R76.8) Referral Organization [facility] Referring Provider First Name Rui Referring Provider Last Name [facility] Referring Provider [facility] Referred Provider Francois Jama Referred Provider Specialty Rheumatology Referral Priority Routine Diagnosis 1 Sacrococcygeal disor ders, not elsewhere classified (M53.3) Referral Organization [facility] Referring Provider First Name Rui Referring Provider Last Name [facility]erred Provider Pain Management, TB Referred Provider Specialty Pain Medicin e Referral Priority Routine Diagnosis 1 Left hip pain (M25.5 52) Referral Organization [facility] Referring Provider First Name Rui Referring Provider Last Name [facility] Referring Provider [facility] Referred Provider Patricio Ledesma Referred Provider Specialty [...] Problem Status W/U Status Risk Notes Problem [id number] Other chronic pa in (G89.29) Active confirmed Problem 924950772 Sacrococcygeal disorders, not elsewhere classified (M53.3) Active confirmed Problem 63369013 Paresthesia of skin (R20.2) Active confirmed Problem Weakness (28369661) Weakness (R53.1) Active confirmed Problem 5532996622 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 Problem Arthralgia of the pelvic region and thigh (819690665) Left hip pain (M25.552) Active confirmed Problem Deep venous thrombosis (797096664) Deep venous thrombosis (I82.409) Active confirmed Problem Leukocytosis (737974429) Leukocytosis (D72.829) Active confirmed Problem Factor V deficiency (1987256) Factor V deficiency (D68.2) Active confirmed Problem May-Thurner syndrome (165203955) 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2 [facility] [address] [place] [address] 12/11/2024 Rui Hoy Paresthesia of skin R20.2 [facility] Rheumatology [address] [facility] [place] [address] 01/09/2025 Jonathon Hernandez [facility] [address] [place] [address] 01/10/2025 Rui Hoy Paresthesia of skin R20.2 [facility] [address] [place] [address] 01/29/2025 Rui Hoy Paresthesia of skin R20.2 [facility] [address] [place] [address] 10/09/2024 Rui Hoy May-Thurner syndrome I87.1 [facility] [address] [place] [address] 10/09/2024 Rui Hoy Paresthesia of skin R20.2 [facility] [address] [place] [address] 10/10/2024 Rui Hoy [facility] [address] [place] [address] 10/11/2024 Rui Hoy Elevated anti-streptolysin O antibodies R76.8 [facility] [address] [place] [address] 10/22/2024 Rui Hoy [facility] [address] [place] [address] 10/27/2024 Rui Hoy [facility] [address] [place] [address] 07/26/2024 Rui Hoy Left hip pain M25.55 2 [facility] [address] [place] [address] 07/31/2024 Rui Hoy Streptobacillosis A2 5.1 [facility] [address] [place] [address] 08/04/2024 Rui Hoy [facility] [address] [place] [address] 08/09/2024 Rui Hoy Paresthesia of skin R20.2 [facility] [address] [place] [address] 09/04/2024 Rui Hoy [facility] [address] [place] [address] 09/11/2024 Rui Hoy Paresthesia of skin R20.2 [facility] [address] [place] [address] 07/13/2024 Rui Hoy Paresthesia of skin R20.2 [facility] [address] [place] [address] 07/23/2024 Rui Hoy Joint pain M25.50 [facility] [address] [place] [address] 07/19/2024 Rui Hoy Deep venous thrombos is I82.409 and May-Thurner syndrome I87.1 [facility] [address] [place] [address] 10/30/2024 Rui Hoy Fever R50.9 and Acut e bronchitis, unspecified organism J20.9 [facility] Rheumatology [address] [facility] [place] [address] 11/23/2024 Jonathon Gennaoui Pain in left hip M25 .552 ; Sacrococcygeal disorders, not elsewhere classified M53.3 ; Other chronic pain G89.29 and Trochanteric bursitis, left hip M70.62 [facility] [address] [place] [address] 11/09/2024 Rui Hoy Acute bronchitis, unspecified organism J20.9 [facility] [address] [place] [address] 06/13/2025 Rui Hoy Sacrococcygeal disorders, not elsewhere classified M53.3 and Left hip pain M25.552 [facility] [address] [place] [address] 01/11/2025 Rui Hoy Sacrococcygeal disorders, not elsewhere classified M53.3 [facility] Oncology [address] [place] [address] 08/22/2024 Yanni Ladarius [facility] Oncology [address] [place] [address] 06/12/2025 Yanni Durand Assessments Encounter Date Diagnosis (ICD Code) Assessment [...] vaporizer to help keep the drainage moist. Ewol-qpq-hwqcaps Nasal Saline may help the stuffy and runny nose. Use Ibuprofen and or Tylenol as needed for fever, chills, body aches or pain. Children 5 years old should not be given sxwp-rht-qbaiooz cough and cold medications such as guaifenesin and dextromethorphan. If you're over age 5, you may try isld-pfp-sedltha cold medications such as guaifenesin and dextromethorphan, [...] vaporizer to help keep the drainage moist. Ofng-dds-edbijte Nasal Saline may help the stuffy and runny nose. Use Ibuprofen and or Tylenol as needed for fever, chills, body aches or pain. Children 5 years old should not be given aeff-usc-ibafetz cough and cold medications such as guaifenesin and dextromethorphan. If you're over age 5, you may try qrhu-rvt-stjibac cold medications such as guaifenesin and dextromethorphan, [...] Durand , 06/11/2026 08:30:00 AM, [address] [place], [address], Insurance Providers Payer Name Payer Address Payer Phone Subscriber Number Group Number Insured Name Patient Relationship to Insured Coverage Start Date Coverage End Date [employer] ACCESS PPO PLUS LOCAL PLAN [address] [place] [address] [id number] Kimberly Silverman Self - patient is the insured 3 Medications Administered Medication Instructions Date of Administration Dosage Notes Betamethasone Acetate 11/23/2024 1 mL Medical (General) History Medical History History ICD Code abdominal pain constipation migraines anxiety depression Surgical History Surgery Date(Month/Year) Thrombectomy with stent 02/05 cystoscopy APPENDECTOMY 03/2023 diagnostic lap partial hysterectomy colonoscopy 2016 Hospitalization History Reason Date(Month/Year) see above
--- OUTSIDE RECORDS SUMMARY | 2025-07-02 08:03 | XMS_ITS | Encounter Summary ---
Author Organization [facility] Address [address] [place] [address] Care Team Providers Care Bulk Tank Car Unloader Name Role Phone Dank Alvarez MD Primary Care Provider [phone] Deborah Perez [facility] Unavailable [phone] Encounter Details Date Type Department Care Team (Late Contact Info) Description 08/09/2024 Abstract [facility] [address] [place] [address] Andre Treviño DO [address], [place] [address] Social History Tobacco Use Types Packs/Day Years [...] 10:00 AM EDT Office Visit [facility] [place] [address] Andre Treviño DO [address], [facility]11 documented as of this encounter Visit Diagnoses Not on filedocumented in this encounter Care Teams Bulk Tank Car Unloader Relationship Specialty Start Date End Date Dank Alvarez MD PCP - General Family Medicine 03/24/23 Deborah Perez, [facility] [address] [place] [address] Social Media Senior Associate Behavioral Health 01/08/25 05/07/25 documented as of this encounter
--- OUTSIDE RECORDS SUMMARY | 2025-07-02 08:03 | XMS_ITS | Encounter Summary ---
Author Organization [employer] Address [id number] [address] [place] [address] Care Team Providers Care Lcsw Name Role Phone Dank Alvarez MD Primary Care Provider [phone] Encounter Details Date Type Department Care Team (Late st Contact Info) Description 05/11/2024 Orders Only [facility] [address] [place] [address] Jani Birdges MD [address], [address] [address] Social History Tobacco Use Types Packs/Day Years Used Date Smoking Tobacco: Former Cigarettes Smokeless Tobacco: Never Alcohol Use Standard Drinks/Week Comments Not Currently 0 (1 standard drink = 0.6 oz pur e alcohol) [facility] Utilities Answer Date Recorded In the past 12 months has e [employer], gas, oil, or water [employer] threatened to shut off services in your [...] Hospital - Vascular [address] [place] [address] Jani Bridges MD [address], [address] [place] [address] 06/06/2026 8:30 AM EDT Office Visit [facility] [address] [place] [address] Jani Bridges MD [address], [address] [place] [address] documented as of this encounter Procedures Procedure [...] documented as of this encounter Care Teams Lcsw Relationship Specialty Start Date End Date Dank Alvarez MD PCP - General 02/09/24 documented as of this encounter
--- OUTSIDE RECORDS SUMMARY | 2025-07-02 08:03 | XMS_ITS | Encounter Summary ---
Author Organization [employer] Address [id number] [address] 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 ([facility]) Social History Tobacco Use Types Packs/Day Years Used Date Smoking Tobacco: Former Cigarettes Smokeless Tobacco: Never Alcohol Use Standard Drinks/Week Comments Not Currently 0 (1 standard drink = 0.6 oz pur e alcohol) [facility] Utilities Answer Date Recorded In the past 12 months has th [employer], gas, oil, or water company threatened [...] Info) Description 05/27/2026 8:30 AM EDT Appointment [facility] - Vascular [address] [place] [address] Jani Bridges MD [address], [address] [address] 06/06/2026 8:30 AM EDT Office Visit [facility] [address] [place] [address] Jani Bridges MD [address], [address] [place] [address] documented as of this encounter Visit Diagnoses Diagnosis May-Thurner syndrome Compression of vein 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
--- OUTSIDE RECORDS SUMMARY | 2025-07-02 08:03 | XMS_ITS | Encounter Summary ---
Author Organization [employer] Address [id number] [address] [place] [address] Care Team Providers Care Knitter Operator Name Role Phone Dank Alvarez MD Primary Care Provider [phone] Encounter Details Date Type Department Care Team (Late st Contact Info) Description 05/10/2025 Telephone [facility] [address] [place] [address] Jani Bridges MD [address], [facility] [address] [place] [address] Social History Tobacco Use Types Packs/Day Years Used Date Smoking Tobacco: Former Cigarettes Smokeless Tobacco: Never Alcohol Use Standard Drinks/Week Comments Not Currently 0 (1 standard drink = 0.6 oz pur e alcohol) [facility] Utilities Answer Date Recorded In the past 12 months has e [employer], gas, oil, or water [employer] threatened to shut off services in your [...] Info) Description 05/27/2026 8:30 AM EDT Appointment [facility] - Vascular [address] [place] [address] Jani Bridges MD [address], [address] [address] 06/06/2026 8:30 AM EDT Office Visit [facility] [place] [address] [place] [address] Jani Bridges MD [address], [address] [address] documented as of this encounter Visit Diagnoses Not on filedocumented in this encounter Additional Health Concerns Assessment Noted Time PHQ-9 Depression Total Score: 0 01/23/20 7:47 PM EDT documented as of this encounter Care Teams Knitter Operator Relationship Specialty Start Date End Date Dank Alvarez MD PCP - General 02/09/24 documented as of this encounter
--- OUTSIDE RECORDS SUMMARY | 2025-07-02 08:03 | XMS_ITS | Encounter Summary ---
Author Organization [employer] Address [facility]-[id number] [address] 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 ([facility]) Social History Tobacco Use Types Packs/Day Years Used Date Smoking Tobacco: Former Cigarettes Smokeless Tobacco: Never Alcohol Use Standard Drinks/Week Comments Not Currently 0 (1 standard drink = 0.6 oz pur e alcohol) [facility] Utilities Answer Date Recorded In the past 12 months has th [employer], gas, oil, or water company threatened [...] Info) Description 05/27/2026 8:30 AM EDT Appointment [facility] - Vascular [address] [place] [address] Jani Bridges MD [address], [address] [address] 06/06/2026 8:30 AM EDT Office Visit [facility] [address] [place] [address] Jani Bridges MD [address], [address] [place] [address] documented as of this encounter Visit Diagnoses Diagnosis 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
--- OUTSIDE RECORDS SUMMARY | 2025-07-02 08:03 | XMS_ITS | Encounter Summary ---
Author Organization [facility] Address [address] [place] [address] Care Team Providers Care Electronic Warfare Specialist Name Role Phone Dank Alvarez MD Primary Care Provider [phone] [facility] [phone] Encounter Details Date Type Department Care Team (Late Contact Info) Description 04/18/2024 Clinisync Result Encounter [facility] External Department Unsolicited Dionne Bridges MD [address], [address] [address] Social History Tobacco Use Types Packs/Day Years [...] Office Visit [facility] [address] [place] [address] Andre Treviño DO [address], [place] [id number] documented as of this encounter Procedures Procedure Name Priority Date/Time Associated Diagnosis Comments VASC US IVC ILIAC DUPLEX COMPLETE 04/18/2024 11:15 AM EDT documented in this encounter Results * Vascular US IVC iliac duplex complete (04/18/2024 11:15 AM EDT) Anatomical Region Laterality Modality Abdomen Ultrasound 04/18/2024 11:1 5 AM EDT Narrative 04/18/2024 11:18 [place] [address] Ultrasound Report Signed Patient: TAWANA MCMAHON MR#: [id number] : 1990 Acct:[id number] Age/Sex: 34 / F ADM Date: 04/17/24 Loc: US Attending Dr: Dionne Bridges M.D. Ordering Physician: Dionne Bridges M.D. Date of Service: 04/17/24 Procedure(s): US duplex IVC Accession Number(s): [id number] cc: Dank Alvarez M.D.; Dionne Bridges M.D. [place] [address] Patient Name: ATWANA MCMAHON MRN: [id number] date: 1990 Sex: F Assigned Patient Location: US Current Patient Location: Accession/Order Number: [id number] Exam Date: 04/17/2024 11:29 Report Date: 04/18/2024 [...] Signed By: 04/18/24 1118 DD/ 1115 TD/TT: Property Claim Rep: Procedure Note Radiology, Radiologist, - 04/19/2024 [place] [address] Ultrasound Report Signed Patient: TAWANA MCMAHON RMR#: [id number] : 1990Acct:[id number] Age/Sex: 34 / FADM Date: 04/17/24 Loc: US Attending Dr: Dionne Bridges M.D. Ordering Physician: Dionne Bridges M.D. Date of Service: 04/17/24 Procedure(s): US duplex IVC Accession Number(s): [id number] cc: Dank Alvarez M.D.; Dionne Bridges M.D. The [place] [address] Patient Name: TAWANA MCMAHON MRN: [id number] date: 1990 Sex: F Assigned Patient Location: US Current Patient Location: Accession/Order Number: [id number] Exam Date: 04/17/2024 11:29 Report Date: 04/18/2024 [...] Duplex Doppler demonstrates normal waveform and flow, [id number] cm/s within mid IVC. Left iliac stent [...] M.D. Signed By:04/18/24 1118 DD/ 1115 TD/TT: Property Claim Rep: us [facility] NAVARRO IM US PROCEDURES Final Resu lt documented in this encounter Visit Diagnoses Not on filedocumented in this encounter Care Teams Electronic Warfare Specialist Relationship Specialty Start Date End Date Dank Alvarez MD PCP - General Family Medicine 03/24/23 Deborah Perez, [facility] [address] [facility] [address] [place] [address] Field Service Specialist Behavioral Health 01/08/25 05/07/25 documented as of this encounter
--- OUTSIDE RECORDS SUMMARY | 2025-07-02 08:03 | XMS_ITS | Encounter Summary ---
Author Organization [facility] Address [address] [place] [address] Care Team Providers Care Medical Videographer Name Role Phone Dank Alvarez MD Primary Care Provider [phone] Deborah Perez [facility] Unavailable [phone] Encounter Details Date Type Department Care Team (Late Contact Info) Description 08/28/2024 Abstract [facility] [address] [place] [phone] Andre Treviño DO [address], [place] [address] Social History Tobacco Use Types Packs/Day Years [...] Upcoming Encounters Date Type Department Care Team ([facility] Contact Info) Description 08/06/2025 10:00 AM EDT Office Visit [facility] [address] [place] [phone] Andre Treviño DO [address], [facility] documented as of this encounter Visit Diagnoses Not on filedocumented in this encounter Care Teams Medical Videographer Relationship Specialty Start Date End Date Dank Alvarez MD PCP - General Family Medicine 03/24/23 Deborah Perez, [facility] [address] [place] [address] [facility] 01/08/25 05/07/25 documented as of this encounter
--- OUTSIDE RECORDS SUMMARY | 2025-07-02 08:03 | XMS_ITS | Clinical Summary ---
Author Organization [facility] Address [facility] [id number] [address] 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; Acute deep vein thrombosis (DVT) of iliac vein of left lower extremity ([facility]) 05/29/2025 Travel 05/23/2025 10:00 AM EDT Ancillary Procedure [facility] [address] [place] [id number] Pain 05/10/2025 Telephone [facility] [place] [place] [address] Jani Bridges MD 05/07/2025 Orders Only [facility] [place] [place] [address] Nabila Strong CMA 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); 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; Acute deep vein thrombosis (DVT) of iliac vein of left lower extremity ([facility] [place] 05/07/2025 Telephone [facility] [place] [address] Kaity Newman from Last 3 Months Immunizations No known immunizations Social History Tobacco Use Types Packs/Day Years Used Date Smoking Tobacco: Former Cigarettes Smokeless Tobacco: Never Tobacco Cessation:Counseling Given: Not Answered Alcohol Use Standard Drinks/Week Comments Not Currently 0 (1 standard drink = 0.6 oz pur e alcohol) [facility] Utilities Answer Date Recorded In the past 12 months has [employer], gas, oil, or water [employer] threatened to shut off services in your [...] 05/27/2026 8:30 AM EDT Appointment [facility] - Vascular [address] [place] [address] Jani Bridges MD [address], [address] [address] 06/06/2026 8:30 AM EDT Office Visit [facility] Vascular [place] [address] Jani Bridges MD [address], [facility] [address] [place] [address] Health Maintenance Due Date Last Done Comments DTaP,Tdap and Td Vaccines (6 - Tdap) 02/14/2019 02/13/2019, 07/11/1997, 06/23/1993, Additional history exists COVID-19 Vaccine (2023-2 5 season) 2024 05/13/2021, 04/22/2021 Depression Screening 01/22/2025 01/23/2024 Influenza Vaccine 07/16/2025 Adult BMI Screening 05/31/2026 05/31/2025 Tobacco Screening 05/31/2026 05/31/2025 Pap Smear 07/31/2027 07/31/2024, 08/24/2023 Medical Devices Implanted Type Area Facilities Officer Device Identifier Shelf Expiration Date Model / Serial / Lot Stent Vsc 18mm X 100mm Venous Nitinol Slf Expanding Abre - [id number] Implanted:Qty: 1 on 01/24/2024 by Jani Bridges MD at [facility] Stent Left: Vena Cava [facility] [facility] 12/16/2026 [id number] / / [id number] Procedures Procedure Name Priority Date/Time Associated Diagnosis [...] 2:36 PM 01/25/2024 4:20 PM Care Teams Rib Chopper Relationship Specialty Start Date End Date Dank Alvarez MD PCP - General 02/09/24
--- OUTSIDE RECORDS SUMMARY | 2025-07-02 08:03 | XMS_ITS | Encounter Summary ---
Author Organization [employer] Address [facility] [id number] [address] [place] [address] Care Team Providers Care Barrel Marker Name Role Phone Dank Alvarez MD Primary Care Provider [phone] Encounter Details Date Type Department Care Team (Late st Contact Info) Description 05/07/2025 Telephone [facility] [address] [place] [address] [place] [address] Kaity Newman Social History Tobacco Use Types Packs/Day Years Used Date Smoking Tobacco: Former Cigarettes Smokeless Tobacco: Never Alcohol Use Standard Drinks/Week Comments Not Currently 0 (1 standard drink = 0.6 oz pur e alcohol) [facility] Utilities Answer Date Recorded In the past [...] iliac duplex/IVC. She needs order sent to [facility]. Fax number is [phone]. Please send over as pt has upcoming appt with Dr. Bridges on 05/24. Pt would like a call back when completed [phone] is best number for Tawana. * Telephone Encounter - Nabila Strong CMA - 05/07/2025 1:56 PM EDT Put order in and called patient and let her know its been faxed, Let her know to give them a coupledays , then call to get scheduled * Telephone Encounter - Mireya Peace - 05/07/2025 1:56 PM EDT Patient is calling because [place] is asking that the last office visit note be sent for them to start prior authorization for her test. Agricultural Education Instructor faxed office visit note and order together as requested by patient. documented in this encounter Plan of Treatment Upcoming Encounters Date Type Department Care Team (Late st Contact Info) Description 05/27/2026 8:30 AM EDT Appointment [facility] - Vascular [address] [place] [address] Jani Bridges MD [address], [address] [address] 06/06/2026 8:30 AM EDT Office Visit [facility] [address] [place] [address] Jani Bridges MD [address], [facility] [address] [place] [address] documented as of this encounter Visit Diagnoses Not on filedocumented in this encounter Additional Health Concerns Assessment Noted Time PHQ-9 Depression Total Score: 0 01/23/20 24 7:47 PM EDT documented as of this encounter Care Teams Barrel Marker Relationship Specialty Start Date End Date Dank Alvarez MD PCP - General 02/09/24 documented as of this encounter
--- OUTSIDE RECORDS SUMMARY | 2025-07-02 08:03 | XMS_ITS | Encounter Summary ---
Author Organization [facility] Address [address] [place] [address] Care Team Providers Care Wool Brusher Name Role Phone Dank Alvarez MD Primary Care Provider [phone] Deborah Perez [facility] Unavailable [phone] Encounter Details Date Type Department Care Team (Late Contact Info) Description 04/11/2025 Orders Only [facility]TER[facility] [address] [place] [address] Patti Tarango LPN [address] [employer] [facility] Elle [facility] Social History Tobacco Use Types Packs/Day [...] AM EDT Office Visit [facility] [address] [facility] [place] [address] Andre Treviño DO [address] [place] [id number] documented as of this encounter Procedures Procedure [...] on filedocumented in this encounter Care Teams Wool Brusher Relationship Specialty Start Date End Date Dank Alvarez MD PCP - General Family Medicine 03/24/23 Deborah Perez, [facility] [address] [place] [address] System Dispatcher Behavioral Health 01/08/25 05/07/25 documented as of this encounter
--- OUTSIDE RECORDS SUMMARY | 2025-07-02 08:03 | XMS_ITS | Encounter Summary ---
Author Organization [employer] Address [facility] [id number] [address] 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; Acute deep vein thrombosis (DVT) of iliac vein of left lower extremity ([facility]) Social History Tobacco Use Types Packs/Day Years Used Date Smoking Tobacco: Former Cigarettes Smokeless Tobacco: Never Alcohol Use Standard Drinks/Week Comments Not Currently 0 (1 standard drink = 0.6 oz pur e alcohol) [facility] Utilities Answer Date Recorded In the past 12 months has th e [employer], gas, oil, or water [employer] threatened to shut off services in your [...] Info) Description 05/27/2026 8:30 AM EDT Appointment [facility] - Vascular [address] [place] [address] Jani Bridges MD [address], [address] [place] [address] 06/06/2026 8:30 AM EDT Office Visit [facility] [address] [place] [address] Jani Bridges MD [address], [address] [place] [address] documented as of this encounter Visit Diagnoses Diagnosis 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
--- OUTSIDE RECORDS SUMMARY | 2025-07-02 08:03 | XMS_ITS | Encounter Summary ---
Author Organization [facility] Address [address] [place] [address] Care Team Providers Care Associate Partner Name Role Phone Dank Alvarez MD Primary Care Provider [phone] Deborah Perez [facility] Unavailable [phone] Encounter Details Date Type Department Care Team (Late Contact Info) Description 05/24/2024 Abstract [facility] [address] [place] [phone] Andre Treviño DO [address] [place], [place] [address] Social History Tobacco Use Types Packs/Day Years [...] Upcoming Encounters Date Type Department Care Team ([facility] Contact Info) Description 08/06/2025 10:00 AM EDT Office Visit [facility] MONTERO [address] [place] [address] Andre Treviño DO [address] [place], [place] [phone] documented as of this encounter Visit Diagnoses Not on filedocumented in this encounter Care Teams Associate Partner Relationship Specialty Start Date End Date Dank Alvarez MD PCP - General Family Medicine 03/24/23 Deborah Perez, [facility] [address] [place] [address] Measurement And Sensing Technician Behavioral Health 01/08/25 05/07/25 documented as of this encounter
--- OUTSIDE RECORDS SUMMARY | 2025-07-02 08:03 | XMS_ITS | Clinical Summary ---
Author Organization [facility] Address [address] [place] [address] Care Team Providers Care Real Estate Attorney Name Role Phone Dank Alvarez MD Primary Care Provider [phone] Allergies No known active allergies Medications Probiotic [...] Bridges MD 04/25/2025 Telephone [facility] [address] Cyndi Norman MA 04/17/2025 8:00 AM EDT Office Visit [facility] [address] Andre Treviño DO Yeast infection 04/16/2025 Travel 04/11/2025 Orders Only [facility] [address] Patti Tarango LPN 04/03/2025 9:20 AM EDT Office Visit [facility] [address] Andre Treviño DO Nipple pain; Nipple discharge; Nipple infection in female; Antibiotic-induced yeast infection 04/03/2025 Bamboo flowsheet [facility] [address] [facility] [address] Andre Treviño DO 04/02/2025 Travel from Last [...] EDT Office Visit [facility] [address] [facility] [place] [address] Andre Treviño DO [address] [facility] [place] [address] Health Maintenance Due Date Last Done Comments [...] Narrative 05/23/2025 10:41 AM EDT The [address] [address] Ultrasound Report Signed Patient: TAWANA MCMAHON MR#: [id number] : 1990 Acct:[id number] Age/Sex: 35 / F ADM Date: 05/23/25 Loc: US Attending Dr: Dionne Bridges M.D. Ordering Physician: Dionne Bridges M.D. Date of Service: 05/23/25 Procedure(s): US duplex IVC Accession Number(s): [id number] cc: Dank Alvarez M.D.; Dionne Bridges M.D. The [place] [address] Patient Name: TAWANA MCMAHON MRN: [id number] date: 1990 Sex: F Assigned Patient Location: US Current Patient Location: US Accession/Order Number: [id number] Exam Date: 05/23/2025 10:35 Report Date: 05/23/2025 [...] Lay M.D. 05/23/2025 10:38 AM Dictation Location: [place] [address] Electronically authenticated by: [id number] Y Date: 05/23/2025 10:38 Dictated By: Gaby Lay M.D. Signed By: 05/23/25 1041 DD/ 1038 TD/TT: Freelance Writer: Procedure Note Radiology, Radiologist, MD - 05/23/20[address] [place] [address] Ultrasound Report Signed Patient: TAWANA MCMAHON RMR#: [id number] : 1990Acct:[id number] Age/Sex: 35 / FADM Date: 05/23/25 Loc: US Attending Dr: Dionne Bridges M.D. Ordering Physician: Dionne Bridges M.D. Date of Service: 05/23/25 Procedure(s): US duplex IVC Accession Number(s): [id number] cc: Dank Alvarez M.D.; Dionne Bridges M.D. [place] [address] Patient Name: TAWANA MCMAHON MRN: [id number] date: 1990 Sex: F Assigned Patient Location: US Current Patient Location: US Accession/Order Number: [id number] Exam Date: 05/23/2025 10:35 Report Date: 05/23/2025 [...] Lay M.D. 05/23/2025 10:38 AM Dictation Location: [place] [address] Electronically authenticated by: [id number] Y Date: 510:38 Dictated By: Gaby Lay M.D. Signed By:05/23/25 1041 DD/ 1038 TD/TT: Freelance Writer: Dionne Bridges MD IMG US PROCEDURES Final Resu lt * Aerobic culture (04/03/2025 10:38 AM EDT) Swab Central portion of right breast / Unknown 04/03/2025 10:38 AM EDT us Andre Hudson DO LAB MICROBIOLOGY - GENERAL ORDER ROGERIO Final Result Performing Organization Address [facility] Co de Phone Number EXTERNAL LAB * Anaerobic culture (04/03/2025 10:38 AM EDT) Swab Central portion of right breast / Unknown 04/03/2025 10:38 AM EDT us Andre Hudson DO LAB MICROBIOLOGY - GENERAL ORDER ROGERIO Final Result Performing Organization Address City/[facility]/ZIP Co de Phone Number EXTERNAL LAB * Pap Smear (07/31/2024 12:00 AM EDT) Swab Cervical swab / Unknown Hudson Nurse [facility] Ob LAB CYTOLOGY ORDERABLES Final Result Performing Organization Address [facility] Co de Phone Number EXTERNAL LAB * THINPREP PAP AND HPV MRNA E6/E7 W/RFL HPV 16,18/45 (08/24/2023 3:25 PM EDT) Andre Hudson DO LAB BLOOD ORDERABLES Final Resul t Performing Organization Address [facility] de Phone Number EXTERNAL LAB from Last 3 Months or Most Recently Relevant to Health Maintenance Insurance [facility] Care Teams Real Estate Attorney Relationship Specialty Start Date End Date Dank Alvarez MD PCP - General Family Medicine 03/24/23
--- OUTSIDE RECORDS SUMMARY | 2025-07-02 08:03 | XMS_ITS | Encounter Summary ---
Author Organization [email or web address] Address [facility] [id number] [address] 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 Acute deep vein thrombosis (DVT) of iliac vein of left lower extremity ([facility]) Procedures Vas IVC/iliac duplex complete Jani Bridges MD [address] [place] [address] Phone: tel: fax: Referral ID Status Reason Start Date Expiration Date V isits Requested Visits Authorized [id number] Authorized 05/07/2025 05/07/2026 1 1 Encounter Details Date Type Department Care Team (Late st Contact Info) Description 05/07/2025 Orders Only [facility] [address] [place] [address] Nabila Strong CMA 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); 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; Acute deep vein thrombosis (DVT) of iliac vein of left lower extremity ([facility]) Social History Tobacco Use Types Packs/Day Years Used Date Smoking Tobacco: Former Cigarettes Smokeless Tobacco: Never Alcohol Use Standard Drinks/Week Comments Not Currently 0 (1 standard drink = 0.6 oz pur e alcohol) [facility] Utilities Answer Date Recorded In the past [...] Info) Description 05/27/2026 8:30 AM EDT Appointment [facility] - Vascular [address] [place] [address] Jani Bridges MD [address], [address] [address] 06/06/2026 8:30 AM EDT Office Visit [facility] [place] [address] Jani Bridges MD [address], [address] [address] Scheduled Orders Name Type Priority Associated Diagnoses [...] documented as of this encounter Care Teams Train Operations Manager Relationship Specialty Start Date End Date Dank Alvarez MD PCP - General 02/09/24 documented as of this encounter
--- OUTSIDE RECORDS SUMMARY | 2025-07-02 08:03 | XMS_ITS | Encounter Summary ---
Author Organization Construct[employer] Address [id number] [address] [place] [address] Care Team Providers Care Cloth Cutting Machine Operator Name Role Phone Dank Alvarez MD Primary Care Provider [phone] Reason for Referral * Specialty Diagnoses / Procedures Referred By Contkahlil t Referred To Contact Vascular Surgery [facility] [address] [place] [address] Phone: tel: fax: Referral ID Status Reason Start Date Expiration Date Visits Re quested Visits Authorized Encounter Details Date Type Department Care Team ([facility] st Contact Info) Description 08/28/2024 Orders Only [facility] [address] [place] [address] Dank Alvarez MD [address] [facility], [place] [address] Social History Tobacco Use Types Packs/Day Years Used Date Smoking Tobacco: Former Cigarettes Smokeless Tobacco: Never Alcohol Use Standard Drinks/Week Comments Not Currently 0 (1 standard drink = 0.6 oz pur e alcohol) [facility] Utilities Answer Date Recorded In [...] System - Vascular [address] [place] [address] Jani Bridges MD [address], [address] [address] 06/06/2026 8:30 AM EDT Office Visit [facility] [address] [place] [address] Jani Bridges MD [address], [address] [address] documented as of this encounter Procedures Procedure [...] documented as of this encounter Care Teams Cloth Cutting Machine Operator Relationship Specialty Start Date End Date Dank Alvarez MD PCP - General 02/09/24 documented as of this encounter
--- OUTSIDE RECORDS SUMMARY | 2025-07-02 08:03 | XMS_ITS | Encounter Summary ---
Author Organization [employer] Address [id number] [address] [place] [address] Care Team Providers Care Patient Access Associate Name Role Phone Dank Alvarez MD Primary Care Provider [phone] Encounter Details Date Type Department Care Team (Late st Contact Info) Description 02/14/2024 Orders Only [facility] [address] [place] [address] Josiane Arroyo LPN Social History Tobacco Use Types Packs/Day Years Used Date Smoking Tobacco: Former Cigarettes Smokeless Tobacco: Never Alcohol Use Standard Drinks/Week Comments Not Currently 0 (1 standard drink = 0.6 oz pur e alcohol) [facility] Utilities Answer Date Recorded In [...] Info) Description 05/27/2026 8:30 AM EDT Appointment [facility] - Vascular [address] [place] [address] Jani Bridges MD [address] [address] 06/06/2026 8:30 AM EDT Office Visit [facility] [address] [place] [address] Jani Bridges MD [address] [address] documented as of this encounter Visit Diagnoses Not on filedocumented in this encounter Additional Health Concerns Assessment Noted Time PHQ-9 Depression Total Score: 0 01/23/20 24 7:47 PM EDT documented as of this encounter Care Teams Patient Access Associate Relationship Specialty Start Date End Date Dank Alvarez MD PCP - General 02/09/24 documented as of this encounter
--- OUTSIDE RECORDS SUMMARY | 2025-07-02 08:03 | XMS_ITS | Encounter Summary ---
Author Organization [employer] Sys tem Address [id number] [address] [place] [address] Care Team Providers Care Textile Machine Operator Name Role Phone Dank Alvarez MD Primary Care Provider [phone] Encounter Details Date Type Department Care Team (Late st Contact Info) Description 05/15/2024 Orders Only [facility] [address] [place] [address] Jani Bridges MD [address], [facility] [address] [place] [address] Social History Tobacco Use Types Packs/Day Years Used Date Smoking Tobacco: Former Cigarettes Smokeless Tobacco: Never Alcohol Use Standard Drinks/Week Comments Not Currently 0 (1 standard drink = 0.6 oz pur e alcohol) [facility] Utilities Answer Date Recorded In the past 12 months has e [employer], gas, oil, or water [employer] threatened to shut off services in your [...] [facility] [address] [place] [address] Jani Bridges MD [address], [address] [place] [address] 06/06/2026 8:30 AM EDT Office Visit [facility] [address] [place] [address] Jani Bridges MD [address], [address] [place] [address] documented as of this encounter Procedures Procedure [...] documented as of this encounter Care Teams Textile Machine Operator Relationship Specialty Start Date End Date Dank Alvarez MD PCP - General 02/09/24 documented as of this encounter
--- OUTSIDE RECORDS SUMMARY | 2025-07-02 08:03 | XMS_ITS | Encounter Summary ---
Author Organization [employer] Address [facility] [id number] [address] [place] [address] Care Team Providers Care Assurance Specialist Name Role Phone Dank Alvarez MD Primary Care Provider [phone] Encounter Details Date Type Department Care Team (Late st Contact Info) Description 01/24/2024 Orders Only [facility] [address] [place] [address] Transcribe, Orders Support User Pain (Primary Dx) Social History Tobacco Use Types Packs/Day Years Used Date Smoking Tobacco: Former Cigarettes Smokeless Tobacco: Never Alcohol Use Standard Drinks/Week Comments Not Currently 0 (1 standard drink = 0.6 oz pur e alcohol) [facility] Utilities Answer Date Recorded In the [...] [facility] - Vascular [address] [place] [address] Jani Bridges MD [address], [address] [address] 06/06/2026 8:30 AM EDT Office Visit [facility] [address] [place] [address] Jani Bridges MD [address], [facility] [address] [place] [address] documented as of this encounter Results * Vas venous duplex lwr single left (01/23/2024 10:20 AM EDT) us Scanning Provider External CV VASCULAR ORDERABLE S Final Result [facility] documented in this encounter Visit Diagnoses Diagnosis Pain- Primary Generalized pain documented in this encounter Additional Health Concerns Assessment Noted Time PHQ-9 Depression Total Score: 0 01/23/20 24 7:47 PM EDT documented as of this encounter Care Teams Assurance Specialist Relationship Specialty Start Date End Date Dank Alvarez MD PCP - General 02/09/24 documented as of this encounter
--- OUTSIDE RECORDS SUMMARY | 2025-07-02 08:03 | XMS_ITS | Encounter Summary ---
Author Organization [facility] Address [address] [place] [address] Care Team Providers Care Clinical Care Coordinator Name Role Phone Dank Alvarez MD Primary Care Provider [phone] Deborah Perez [facility] Un[facility] [phone] Encounter Details Date Type Department Care Team (Late Contact Info) Description 05/08/2024 Clinisync Result Encounter [facility] Unsolicited Dionne Bridges MD [address], [address] [address] Social History Tobacco Use Types Packs/Day Years [...] Office Visit [facility] [address] [place] [address] Andre Treviño DO [address] [place] [address] documented as of this encounter Procedures Procedure Name Priority Date/Time Associated Diagnosis Comments CT ANGIOGRAM UPPER EXTREMITY LEFT 05/08/2024 8:18 AM EDT documented in this encounter Results * CT angiogram upper extremity left (05/08/2024 8:18 AM EDT) Anatomical Region Laterality Modality Upper Extremities Left Computed Tomog bear 05/08/2024 8:18 AM EDT Narrative 05/08/2024 8:21 [place] [address] CT Scan Report Signed Patient: TAWANA MCMAHON MR#: [id number] : 1990 Acct:[id number] Age/Sex: 34 / F ADM Date: 05/05/24 Loc: CT Attending Dr: Dionne Bridges M.D. Ordering Physician: Dionne Bridges M.D. Date of Service: 05/05/24 Procedure(s): CT angio UE LT Accession Number(s): [id number] cc: Dank Alvarez M.D. [place] [address] Patient Name: TAWANA MCMAHON MRN: [id number] date: 1990 Sex: F Assigned Patient Location: CT Current Patient Location: Accession/Order Number: [id number] Exam Date: 05/05/2024 08:40 Report Date: 05/08/2024 [...] M.D. Signed By: 05/08/24820 DD/ 7 TD/TT: Major Assembler: Procedure Note Radiology, Radiologist, - 05/09/2024 [place] [address] CT Scan Report Signed Patient: TAWANA MCMAHON RMR#: [id number] : 1990Acct:[id number] Age/Sex: 34 / FADM Date: 05/05/24 Loc: CT Attending Dr: Dionne Bridges M.D. Ordering Physician: Dionne Bridges M.D. Date of Service: 05/05/24 Procedure(s): CT angio UE LT Accession Number(s): [id number] cc: Dank Alvarez M.D. [place] [address] Patient Name: TAWANA MCMAHON MRN: [id number] date: 1990 Sex: F Assigned Patient Location: CT Current Patient Location: Accession/Order Number: [id number] Exam Date: 05/05/2024 08:40 Report Date: 05/08/2024 [...] Mccray M.D. Signed By:05/08/24820 DD/ 7 TD/TT: Major Assembler: us Dionne Bridges MD IMG CT PROCEDURES Final Resu lt documented in this encounter Visit Diagnoses Not on filedocumented in this encounter Care Teams Clinical Care Coordinator Relationship Specialty Start Date End Date Dank Alvarez MD PCP - General Family Medicine 03/24/23 Deborah Perez, [facility] [address] [facility] [address] [place] [address] [facility] 01/08/25 05/07/25 documented as of this encounter
[2025-07-02 08:10] VITALS: BP 101/72; PULSE 88; TEMP 36.6; O2SAT 97
--- OUTSIDE RECORDS SUMMARY | 2025-07-02 08:13 | XMS_ITS | CCD ---
Author Organization [facility] Care Team Providers Care Specialty Molder Name Role Phone RAIN ., DR MARY Attending Unavailable JAUNY ., DR MARY Admitting Unavailable HOY ., [...] ADDISON, MOHAMED F Attending Unavailable USMAN RODRIGEZ M Primary Care Unavailable ADDISON, MOHAMED F Attending Unavailable USMAN RODRIGEZ Referring Unavailable USMAN RODRIGEZ Primary Care Unavailable ADDISON, MOHAMED F Attending Unavailable USMAN RODRIGEZ M Referring Unavailable USMAN RODRIGEZ Primary Care Unavailable Usman Rodrigez Primary Care Physician Usman Rodrigez MD Primary Care Provider Usman Rodrigez MD Primary Care Provider Sydnee Alvarez PA-C Attending Provider Usman Rodrigez MD Primary Care Provider Usman Rodrigez MD Primary Care Provider Usman Rodrigez MD Primary Care Provider [phone] Chris [facility], Theresa Martinez Unavailable [phone] ANDRE TREVIÑO Attending Unavailable CHRIS, THERESA Martinez Attending Unavailable BHARTI AL Attending Unavailable CHRIS, THERESA Martinez Attending Unavailable HUDSON, ANDRE Attending Unavailable THERESA PEREZ Attending Unavailable HUDSON, ANDRE Attending Unavailable THERESA PEREZ Attending Unavailable Julien HOYOS Referring Unavailable SYDNEE ALVAREZ Attending Unavailable SYDNEE ALVAREZ Attending Unavailable HOYOSJulien Admitting Unavailable HOYOS, Julien R Attending Unavailable HOYOS, Julien R Referring Unavailable HOYOS, Julien R Attending Unavailable HOYOS, Julien R Referring Unavailable HOYUSMAN M Referring Unavailable HOYDEVENDRAUSMAN M Primary Care Unavailable JANI BRIDGES Attending Unavailable JAUNYUSMAN M Referring Unavailable HOYUSMAN M Primary Care Unavailable HoyUsman M Primary Care Unavailable Sydnee Alvarez Attending Unavailable Sydnee Alvarez Admitting Unavailable Allergies Allergy Classification Reported Allergen(s) Allergy Type Date of Onset Reaction(s) Facility (1 source) No Known Medication Allergies; Translations: [No Known Medication Allergies] Propensity to adverse reactions (disorder) [facility] Repository Medications Current Medications Medication Drug Class(es) [...] Start: 01-25-2024 take 2 tablets by mo [facility] twice daily, then take 1 tablet by mouth twice daily Eliquis DVT/PE Starter Pack 5 MG tablet therapy pack Take 2 tablets by mouth twice daily for 7 days, then take 1 tablet twice daily 01/25/2024 Active Start: 01-25-2024 take 2 tablets by mo [facility] twice daily, then take 1 tablet by [...] cystoscopy, # 1 tab(s), Refills(s) 0, Pharmacy: [facility]/pharmacy #[id number], 158, cm, 08/08/24 11:39:00 EDT, Height/Length Dosing, [...] capsule 1 capsule 05/26/2024 Active lactobacillus acidophilus [id number] unt / pectin 100 mg oral tablet (15 sources) take 1 tablet by mouth once daily at breakfast acidophilus-pect in, citrus 25 million cell -100 mg tablet Take 1 tablet by mouth daily with breakfast. 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 Ordering Physician: Jani Bridges M.D. Date of Service: 05/23/25 Procedure(s): US duplex IVC Accession Number(s): [id number] cc: Usman Rodrigez M.D.; Jani Bridges M.D. [place] [address] Patient Name: TAWANA SILVERMAN MRN: [id number] date: 1990 Sex: F Assigned Patient Location: US Current Patient Location: US Accession/Order Number: [id number] Exam Date: 05/23/2025 10:35 Report Date: 05/23/2025 [...] Lay M.D. 05/23/2025 10:38 AM Dictation Location: [place] [address] Electronically authenticated by: [id number] Y Date: 05/23/2025 10:38 Dictated By: Gaby Lay M.D. Signed By: 05/23/25 1041 DD/ 1038 TD/TT: Hose Seamer: [facility] Radiology, Radiologist, MD - 05/23/2025 [place] [address] Ultrasound Report Signed Patient: TAWANA SILVERMAN MR#: [id number] : 1990 Acct:[id number] Age/Sex: 35 / F ADM Date: 05/23/25 Loc: Attending Dr: Jani Bridges M.D. Ordering Physician: Jani Bridges M.D. Date of Service: 05/23/25 Procedure(s): US duplex IVC Accession Number(s): [id number] cc: Usman Rodrigez M.D.; Jani Bridges M.D. [place] [id number] Patient Name: TAWANA SILVERMAN MRN: [facility]:[id number] date: 1990 Sex: F Assigned Patient Location: US Current Patient Location: US Accession/Order Number: [id number] Exam Date: 05/23/2025 10:35 Report Date: 05/23/2025 [...] Lay M.D. 05/23/2025 10:38 AM Dictation Location: [place] [address] Electronically authenticated by: [id number] Y Date: 05/23/2025 10:38 Dictated By: Gaby Lay M.D. Signed By: 05/23/25 1041 DD/ 1038 TD/TT: Hose Seamer: [facility] Radiology Study observation (narrative) [facility] US.doppler Thoracic and Abdo rinku Aorta and Inferior Vena Cava and Illiac vesselsOrdered By: Radiologist Radiology [facility]-23-2025 [facility]: Urology Office/Clinic Noteon 12-26-2024 [...] has improved. Has been doing PFPT at [facility] since August. Noticing a lot of improvement [...] cystoscopy, # 1 tab(s), Refills(s) 0, Pharmacy: [facility]/pharmacy #[id number], 158, cm, 08/08/24 11:39:00 EDT, Height/Length Dosing, 60, kg, 08/08/24 11:39:00 EDT, Weight Dosing E&M of Est. Patient Low 20-29 Min 18634 Urnls Dip Stick Auto w/o Microscopy POC 56480 Follow-up With When Contact Information [facility] Additional Instructions: Only if needed/new problems arise. [...] 2024-08-08: TENIVAC GIVEN BY DR RODRIGEZ IN [place] poliovirus vaccine, inactivated 07/11/1997 Recorded measles/mumps/rubella virus [...] Dipstick: 2+ (100 mg/dl) (12/26/24 10:01:00) Specific [place] Urine Dipstick: 1.025 (12/26/24 10:01:00) Urine Appearance Urine Dipstick: Clear (12/26/24 10:01:00) Urine Color Urine Dipstick: Yellow (12/26/24 10:01:00) Urobilinogen Urine Dipstick: Normal 0.2-1 EU/dl (12/26/24 10:01:00) pH Urine Dipstick: 6.5 (12/26/24 10:01:00) Normal [facility] Comment on above: Result Comment: Elec tronically Signed By: JAMARI GOVEA, SYDNEE Crowe\Date and Time Signed: 12/26/24 10:31 EST Main OR Preoperative Recordo n 11-13-2024 Main OR Preoperative Record Main OR Preoperative Record Holding Area Document Type FTURO Summary Primary Physician: Julien HOYOS MD Finalized Date/Time: 11/13/24 16:38:17 Pt. Name: TAWANA SILVERMAN /Sex: 1990 Female Med Rec #: [id number] Physician: Julien HOYOS MD Financial #: [id number] Pt. Type: O Room/Bed: / Admit/Disch: 10/03/24 [...] Complaints of Pain: No Skin Integrity Intact, [place], Warm, & Dry Vitals - EU Blood Pressure 109/72 Pulse 80 bpm Respirations 20 br/min SPO2 97 % Additional None RN Reviewed Yes Specimens Collected Last Modified By: Elizabet Grimm RN 10/03/24 09:45:24 Finalized By: GAGE Howell RN, Ruthann Document Signatures Signed By: Shalonda Jane LPN 10/03/24 09:28 GAGE Howell RN, Ruthann 11/13/24 16:38 Normal [facility] Main OR Intraoperative Recor don 10-03-2024 Main OR Intraoperative Record Main OR Intraoperative Record IntraOp Document Type FTURO Summary Primary Physician: Julien HOYOS MD Finalized Date/Time: 10/03/24 10:05:10 Pt. Name: TAWANA SILVERMAN /Sex: 1990 Female Med Rec #: [id number] Physician: Julien HOYOS MD Financial #: [id number] Pt. Type: O Room/Bed: / Admit/Disch: 10/03/24 [...] Nel Pearson Role Performed Surgeon - Primary Dial Equipment Engineer - Primary Scrub - Primary Time In [...] Elizabet Grimm RN P 10/03/24 10:05 Normal [facility] Operative Reporton Operative Report Operative Report Patient: [...] urine. The Urethra was dilated to: 30 Chinese w/ sounds. Devices Implanted: None. Removal: Cystoscope is removed, The patient tolerated it well. Postoperative Information Discharge: Patient is discharged home with antibiotic coverage, Follow up arranged. She will start Myrbetriq 50 mg daily. Follow-up will be in 4 months. Normal [facility] Comment on above: Result Comment: Elec tronically Signed By: Julien HOYOS MD\.br\Date and Time Signed: 10/03/24 10:11 EST IGP,APTIMA HPV,AGE GDLNon AGE GDLN ACOG TESTING Note . [facility] Comment on above: TESTS RESULT FLAG UN ITS REF RANGE LAB Clinician Provided Cytology Information Source.............Vagina No. of containers..01 ThinPrep Vial Age Leena LAZARO Eneida... FLAG LEGEND: L-Low Normal,H-High Normal,LL-Alert Low,HH-Alert High <-Panic Low,>-Panic High,A-Abnormal,AA-Critical Abnormal Performed at: 01 =[address] [address] Sandy Lemon MD, HPV APTIMA Negative Negative [facility] Comment on above: This nucleic acid am plification test detects fourteen high- risk HPV types (16,18,31,33,35,39,45,51,52,56,58,59,66,68) without differentiation. Performed at: =[address] [id number] Digital Marketing Intern: Sandy Lemon MD, Phone: [phone] Performed at: [facility] [address] [place] [id number] Digital Marketing Intern: Holedn Croft MD, Phone: [phone] IGP, APTIMA HPV, RFX 16/18,45 Note . [facility] Comment on above: TESTS RESULT FLAG UN ITS REF RANGE LAB DIAGNOSIS: 02 NEGATIVE FOR INTRAEPITHELIAL LESION OR MALIGNANCY. Specimen adequacy: 02 Satisfactory for evaluation. Performed by: 02 Sola Aviles, Case Hardener (ASCP) . 02 Note: Note 03 The [...] High,A-Abnormal,AA-Critical Abnormal Performed at: 02 [facility] [address] [place] [address] Holden Croft MD, 03 WB [facility] [address] [address] Sandy Lemon MD, SPATULA-ALONE VAGINA [facility] Health[facility] e No Panel Informationon 07-12 [...] - righton 04-03-2024 Radiology Study observation (narrative) [facility] US.doppler Upper extremity v ein - rightOrdered By: Janet Almaguer on 04-03-2024 Radiology Study observation (narrative) [facility] US.doppler Lower extremity a rtery - righton 03-31-2024 [facility] US.doppler Upper extremity v ein - rightOrdered By: Janet Almaguer on 03-30-2024 [facility] BASIC METABOLIC PANLon 01-24 Anion gap [Moles/Vol] 7 mmol/L Normal 5-15 [facility] Comment on above: Performed By: #### C BCA, PINR, 59790-8, BMP #### [facility] ([id number]) [address], [address] [place] [address] Calcium [Mass/Vol] 8.7 mg/dL Normal 8.5-10.5 [facility] Comment on above: Performed By: #### C BCA, PINR, 22792-1, BMP #### [facility] ([id number]) [address], [address] [place] [address] Chloride [Moles/Vol] 106 mmol/L Normal 98-109 [facility] Comment on above: Performed By: #### C BCA, PINR, 57237-8, BMP #### [facility] ([id number]) [address], [address] [place] [address] CO2 [Moles/Vol] 23 mmol/L Normal 22-32 [facility] Comment on above: Performed By: #### C BCA, PINR, 44952-9, BMP #### [facility] ([id number]) [address], [address] [place] [address] Creatinine [Mass/Vol] 0.57 mg/dL Normal 0.40-1.00 [facility] Comment on above: Result Comment: METH OD TRACEABLE TO IDMS STANDARD Performed By: #### C BCA, PINR, 09581-8, BMP #### [facility] ([id number]) [address], [address] [place] [address] eGFR (CKD-EPI) NON-RACE DEPENDENT >90 Normal >59 [facility] Comment on above: Result Comment: Reported eGFR is based on the CKD-EPI 2020 equation that does not use a race coefficient. Performed By: #### C BCA, PINR, 47695-9, BMP #### [facility] ([id number]) [address], [address] [place] [address] Glucose [Mass/Vol] 139 mg/dL High 65-99 [facility] Comment on above: Performed By: #### C BRENNON PINR, 35980-8, BMP #### [facility] ([id number]) [address], [address] [place] [address] Potassium [Moles/Vol] 4.3 mmol/L Normal 3.5-5.0 [facility] Comment on above: Performed By: #### C BRENNON, PINR, 93393-8, BMP #### [facility] ([id number]) [address], [address] [place] [address] Sodium [Moles/Vol] 136 mmol/L Normal 134-146 [facility] Comment on above: Performed By: #### C BRENNON PINR, 36247-3, BMP #### [facility] ([id number]) [address], [address] [place] [address] Urea nitrogen [Mass/Vol] 6 mg/dL Normal 5-23 [facility] Comment on above: Performed By: #### C BRENNON, PINR, 92993-0, BMP #### [facility] ([id number]) [address], [address] [place] [address] CBC AND AUTO DIFFon 01-24-20 24 ABSOLUTE BASOPHIL 0.0 X10E9/L Normal 0.0-0.2 [facility] Comment on above: Performed By: #### C BRENNON PINR, 50333-5, BMP #### [facility] ([id number]) [address], [address] [place] [address] ABSOLUTE NEUTROPHIL 2.9 X10E9/L Normal 1.5-6.6 [facility] Comment on above: Performed By: #### C BRENNON, PINR, 05670-9, BMP #### [facility] ([id number]) [address], [address] [place] [address] Basophils/100 WBC (Bld) 0.1 % Normal [facility] Comment on above: Performed By: #### C SADAF WILLETT, 63483-2, BMP #### [facility] ([id number]) [address], [address] [place] [address] Eosinophils (Bld) [#/Vol] 0.0 10*3/uL Normal 0.0-0.4 [facility] Comment on above: Performed By: #### C BRENNON PINSilm, 52859-8, BMP #### [facility] ([id number]) [address], [facility] [address] [place] [address] Eosinophils/100 WBC (Bld) 0.0 % Normal [facility] Comment on above: Performed By: #### C SADAF WILLETT, 00465-2, BMP #### [facility] ([id number]) [address], [facility] [address] [place] [address] Erythrocyte distribution width (RBC) [Ratio] 11.8 % Normal 11.5-15.0 [facility] Comment on above: Performed By: #### C SADAF WILLETT, 63546-4, BMP #### [facility] ([id number]) [address], [facility] [address] [place] [address] Hematocrit (Bld) [Volume fraction] 35.5 % Normal 35-47 [facility] Comment on above: Performed By: #### SADAF Langford BCA, 42428-6, BMP #### [facility] ([id number]) [address], [facility] [address] [place] [address] Hemoglobin (Bld) [Mass/Vol] 12.3 g/dL Normal 11.7-15.5 [facility] Comment on above: Performed By: #### PARDEEP Langford BCAR, 10680-1, BMP #### [facility] ([id number]) [address], [facility] [address] [place] [address] Lymphocytes (Bld) [#/Vol] 0.4 10*3/uL Low 1.0-3.5 [facility] Comment on above: Performed By: #### C BCA, PINR, 11441-2, BMP #### [facility] ([id number]) [address], [address] [place] [address] Lymphocytes/100 WBC (Bld) 13.1 % Normal [facility] Comment on above: Performed By: #### C BRENNON, PINR, 75324-6, BMP #### [facility] ([id number]) [address], [address] [place] [address] MCH (RBC) [Entitic mass] 32.3 pg Normal 27-34 [facility] Comment on above: Performed By: #### C BRENNON, PINR, 58481-8, BMP #### [facility] ([id number]) [address], [facility] [address] [place] [address] MCHC (RBC) [Mass/Vol] 34.6 g/dL Normal 32-36 [facility] Comment on above: Performed By: #### C BCA, PINR, 42733-9, BMP #### [facility] ([id number]) [address], [facility] [address] [place] [address] MCV (RBC) [Entitic vol] 94 fL Normal 80-100 [facility] Comment on above: Performed By: #### C BRENNON, PINR, 91792-6, BMP #### [facility] ([id number]) [address], [address] [place] [address] Monocytes (Bld) [#/Vol] 0.1 10*3/uL Normal 0-0.9 [facility] Comment on above: Performed By: #### C BCA, PINR, 81017-7, BMP #### [facility] ([id number]) [address] [place] [address] Monocytes/100 WBC (Bld) 2.4 % Normal [facility] Comment on above: Performed By: #### C BCA, PINR, 72012-2, BMP #### [facility] ([id number]) [address], [address] [place] [address] Neutrophils/100 WBC (Bld) 84.4 % Normal [facility] Comment on above: Performed By: #### C BRENNON, PINR, 38045-7, BMP #### [facility] ([id number]) [address], [address] [place] [address] Platelet mean volume (Bld) [Entitic vol] 9.1 fL Normal 7-12 [facility] Comment on above: Performed By: #### C BRENNON PINR, 81257-5, BMP #### [facility] ([id number]) [address], [address] [place] [address] Platelets (Bld) [#/Vol] 142 10*3/uL Low 150-450 [facility] Comment on above: Performed By: #### Anastasiya WILLETT, PINR, 04797-7, BMP #### [facility] ([id number]) [address], [address] [place] [address] RBC COUNT 3.79 X10E12/L Low 3.80-5.20 [facility] Comment on above: Performed By: #### Anastasiya WILLETT, PINR, 74626-8, BMP #### [facility] ([id number]) [address], [facility] [address] [place] [address] WBC (Bld) [#/Vol] 3.4 10*3/uL Low 4.0-11.0 [facility] Comment on above: Performed By: #### Anastasiya WILLETT, PINR, 23442-6, BMP #### [facility] ([id number]) [address], [address] [place] [address] Heparin unfractionated Chrom ogenic method Qn (PPP)on 01-25-2024 ANTI XA UFH 0.68 IU/mL Normal 0.30-0.70 [facility] Comment on above: Result Comment: Opti mal time for testing is 6 hrs post dosage This test is specific for monitoring patients on UFH, and is not recommended for use with other Anti-Xa medications. Performed By: #### C BRENNON PINR, 62607-3, BMP #### [facility] ([id number]) [address], [address] [place] [address] ANTI CARDIOLIPIN AB IGG IGA IGMon 01-24-2024 MELBA IgA <2.0 Normal 0-19.9 [facility] Comment on above: Performed By: #### A Chucky HEATONG #### [facility] ([id number]) [address], [address] [place] [address] MELBA IgG <1.6 Normal 0-19.9 [facility] Comment on above: Performed By: #### A Chucky HEATONG #### [facility] ([id number]) [address], [address] [place] [address] MELBA IgM <1.5 Normal 0-19.9 [facility] Comment on above: Performed By: #### Chucky SHUKLAG #### [facility] ([id number]) [address], [address] [place] [address] BASIC METABOLIC PANLon 01-23 Anion gap [Moles/Vol] 8 mmol/L Normal 5-15 [facility] Comment on above: Performed By: #### 3 274-8, CBCA, BMP #### [facility] ([id number]) [address] [address] [place] [address] Calcium [Mass/Vol] 8.0 mg/dL Low 8.5-10.5 [facility] Comment on above: Performed By: #### 3 274-8, CBCA, BMP #### [facility] ([id number]) [address], [address] [place] [address] Chloride [Moles/Vol] 106 mmol/L Normal 98-109 [facility] Comment on above: Performed By: #### 3 274-8, CBCA, BMP #### [facility] ([id number]) [address] [address] [place] [address] CO2 [Moles/Vol] 22 mmol/L Normal 22-32 [facility] Comment on above: Performed By: #### 3 274-8, CBCA, BMP #### [facility] ([id number]) [address] [address] Creatinine [Mass/Vol] 0.53 mg/dL Normal 0.40-1.00 [facility] Comment on above: Result Comment: METH OD TRACEABLE TO IDMS STANDARD Performed By: #### 3 274-8, CBCA, BMP #### [facility] ([id number]) [address], [address] [address] eGFR (CKD-EPI) NON-RACE DEPENDENT >90 Normal >59 [facility] Comment on above: Result Comment: Reported eGFR is based on the CKD-EPI 2020 equation that does not use a race coefficient. Performed By: #### 3 274-8, CBCA, BMP #### [facility] ([id number]) [address] [address] [place] [address] Glucose [Mass/Vol] 76 mg/dL Normal 65-99 [facility] Comment on above: Performed By: #### 3 274-8, CBCA, BMP #### [facility] ([id number]) [address] [address] Potassium [Moles/Vol] 3.8 mmol/L Normal 3.5-5.0 [facility] Comment on above: Performed By: #### 3 274-8, CBCA, BMP #### [facility] ([id number]) [address] [address] [place] [address] Sodium [Moles/Vol] 136 mmol/L Normal 134-146 [facility] Comment on above: Performed By: #### 3 274-8, CBCA, BMP #### [facility] ([id number]) [address], [address] [place] [address] Urea nitrogen [Mass/Vol] 10 mg/dL Normal 5-23 [facility] Comment on above: Performed By: #### 3 274-8, CBCA, BMP #### [facility] ([id number]) [address], [address] [place] [address] BETA-2 GP1 AB PANELon 2023 BETA-2 GP1 IgA <2.0 Normal 0.0-19.9 [facility] Comment on above: Performed By: #### C BCA, PINR, 33754-5, BMP #### [facility] ([id number]) [address] [place] [address] BETA-2 GP1 IgG <1.4 Normal 0.0-19.9 [facility] Comment on above: Performed By: #### C BCA, PINR, 67701-8, BMP #### [facility] ([id number]) [address], [address] [place] [address] BETA-2 GP1 IgM <1.5 Normal 0.0-19.9 [facility] Comment on above: Performed By: #### C BCA, PINR, 23751-4, BMP #### [facility] ([id number]) [address], [address] [place] [address] CBC AND AUTO DIFFon 01-24-20 24 ABSOLUTE BASOPHIL 0.0 X10E9/L Normal 0.0-0.2 [facility] Comment on above: Performed By: #### 3 274-8, CBCA, BMP #### [facility] ([id number]) [address] [place] [address] ABSOLUTE NEUTROPHIL 3.7 X10E9/L Normal 1.5-6.6 [facility] Comment on above: Performed By: #### 3 274-8, CBCA, BMP #### [facility] [facility] ([id number]) [address], [address] [place] [address] Basophils/100 WBC (Bld) 0.4 % Normal [facility] Comment on above: Performed By: #### 3 274-8, CBCA, BMP #### [facility] ([id number]) [address], [facility] [address] [place] [address] Eosinophils (Bld) [#/Vol] 0.2 10*3/uL Normal 0.0-0.4 [facility] Comment on above: Performed By: #### 3 274-8, CBCA, BMP #### [facility] ([id number]) [address], [facility] [address] [place] [address] Eosinophils/100 WBC (Bld) 2.9 % Normal [facility] Comment on above: Performed By: #### 3 274-8, CBCA, BMP #### [facility] ([id number]) [address], [facility] [address] [place] [address] Erythrocyte distribution width (RBC) [Ratio] 12.3 % Normal 11.5-15.0 [facility] Comment on above: Performed By: #### 3 274-8, CBCA, BMP #### [facility] ([id number]) [address], [address] [place] [address] Hematocrit (Bld) [Volume fraction] 36.4 % Normal 35-47 [facility] Comment on above: Performed By: #### 3 274-8, CBCA, BMP #### [facility] ([id number]) [address], [address] [place] [address] Hemoglobin (Bld) [Mass/Vol] 12.4 g/dL Normal 11.7-15.5 [facility] Comment on above: Performed By: #### 3 274-8, CBCA, BMP #### [facility] ([id number]) [address] [address] [place] [address] Lymphocytes (Bld) [#/Vol] 1.9 10*3/uL Normal 1.0-3.5 [facility] Comment on above: Performed By: #### 3 274-8, CBCA, BMP #### [facility] ([id number]) [address], [facility] [address] [place] [address] Lymphocytes/100 WBC (Bld) 29.7 % Normal [facility] Comment on above: Performed By: #### 3 274-8, CBCA, BMP #### [facility] ([id number]) [address] [address] [place] [address] MCH (RBC) [Entitic mass] 32.5 pg Normal 27-34 [facility] Comment on above: Performed By: #### 3 274-8, CBCA, BMP #### [facility] ([id number]) [address], [facility] [address] [place] [address] MCHC (RBC) [Mass/Vol] 34.2 g/dL Normal 32-36 [facility] Comment on above: Performed By: #### 3 274-8, CBCA, BMP #### [facility] ([id number]) [address], [facility] [address] [place] [address] MCV (RBC) [Entitic vol] 95 fL Normal 80-100 [facility] Comment on above: Performed By: #### 3 274-8, CBCA, BMP #### [facility] ([id number]) [address] [address] Monocytes (Bld) [#/Vol] 0.5 10*3/uL Normal 0-0.9 [facility] Comment on above: Performed By: #### 3 274-8, CBCA, BMP #### [facility] ([id number]) [address], [address] [place] [address] Monocytes/100 WBC (Bld) 8.2 % Normal [facility] Comment on above: Performed By: #### 3 274-8, CBCA, BMP #### [facility] ([id number]) [address], [address] [place] [address] Neutrophils/100 WBC (Bld) 58.8 % Normal [facility] Comment on above: Performed By: #### 3 274-8, CBCA, BMP #### [facility] ([id number]) [address], [address] [place] [address] Platelet mean volume (Bld) [Entitic vol] 8.7 fL Normal 7-12 [facility] Comment on above: Performed By: #### 3 274-8, CBCA, BMP #### [facility] ([id number]) [address], [address] [place] [address] Platelets (Bld) [#/Vol] 128 10*3/uL Low 150-450 [facility] Comment on above: Performed By: #### 3 274-8, CBCA, BMP #### [facility] ([id number]) [address], [address] [place] [address] RBC COUNT 3.83 X10E12/L Normal 3.80-5.20 [facility] Comment on above: Performed By: #### 3 274-8, CBCA, BMP #### [facility] ([id number]) [address], [address] [place] [address] WBC (Bld) [#/Vol] 6.4 10*3/uL Normal 4.0-11.0 [facility] Comment on above: Performed By: #### 3 274-8, CBCA, BMP #### [facility] ([id number]) [address], [address] [place] [address] Heparin unfractionated Chrom ogenic method Qn (PPP)on 01-24-2024 ANTI XA UFH 0.47 IU/mL Normal 0.30-0.70 [facility] Comment on above: Result Comment: Opti mal time for testing is 6 hrs post dosage This test is specific for monitoring patients on UFH, and is not recommended for use with other Anti-Xa medications. Performed By: #### 3 274-8, CBCA, BMP #### [facility] ([id number]) [address] [address] dRVVT/dRVVT.excess phospholi pid Coag (PPP) [Ratio]on 01-24-2024 DIL[facility]ON[facility] Negative Normal [facility] Comment on above: Performed By: #### C BRENNON, PINR, 24860-7, BMP #### [facility] ([id number]) [address] [address] BASIC METABOLIC PANLon 01-22 Anion gap [Moles/Vol] 11 mmol/L Normal 5-15 [facility] Comment on above: Performed By: #### C BCA, PINR, 15872-0, BMP #### [facility] ([id number]) [address] [address] Calcium [Mass/Vol] 8.3 mg/dL Low 8.5-10.5 [facility] Comment on above: Performed By: #### C BCA, PINR, 76679-6, BMP #### [facility] ([id number]) [address] [address] [place] [address] Chloride [Moles/Vol] 106 mmol/L Normal 98-109 [facility] Comment on above: Performed By: #### C BCA, PINR, 27556-5, BMP #### [facility] ([id number]) [address], [address] [place] [address] CO2 [Moles/Vol] 21 mmol/L Low 22-32 [facility] Comment on above: Performed By: #### C BRENNON PINR, 31004-5, BMP #### [facility] ([id number]) [address], [facility] [address] [place] [address] Creatinine [Mass/Vol] 0.65 mg/dL Normal 0.40-1.00 [facility] Comment on above: Result Comment: METH OD TRACEABLE TO IDMS STANDARD Performed By: #### C BRENNON, PINR, 16355-6, BMP #### [facility] ([id number]) [address], [address] [address] eGFR (CKD-EPI) NON-RACE DEPENDENT >90 Normal >59 [facility] Comment on above: Result Comment: Reported eGFR is based on the CKD-EPI 2020 equation that does not use a race coefficient. Performed By: #### C BRENNON, PINR, 49724-2, BMP #### [facility] ([id number]) [address], [address] [place] [address] Glucose [Mass/Vol] 78 mg/dL Normal 65-99 [facility] Comment on above: Performed By: #### C BCA, PINR, 74814-6, BMP #### [facility] ([id number]) [address], [facility] [address] [place] [address] Potassium [Moles/Vol] 3.9 mmol/L Normal 3.5-5.0 [facility] Comment on above: Performed By: #### C BCA, PINR, 75360-1, BMP #### [facility] ([id number]) [address], [address] [place] [address] Sodium [Moles/Vol] 138 mmol/L Normal 134-146 [facility] Comment on above: Performed By: #### C BCA, PINR, 81769-5, BMP #### [facility] ([id number]) [address], [address] [place] [address] Urea nitrogen [Mass/Vol] 11 mg/dL Normal 5-23 [facility] Comment on above: Performed By: #### C BRENNON, PINR, 72651-9, BMP #### [facility] ([id number]) [address], [address] [place] [address] CBC AND AUTO DIFFon 01-23-20 24 ABSOLUTE BASOPHIL 0.0 X10E9/L Normal 0.0-0.2 [facility] Comment on above: Performed By: #### C BRENNON, PINR, 19475-6, BMP #### [facility] ([id number]) [address], [address] [place] [address] ABSOLUTE NEUTROPHIL 6.6 X10E9/L Normal 1.5-6.6 [facility] Comment on above: Performed By: #### Anastasiya WILLETT, PINR, 27261-5, BMP #### [facility] ([id number]) [address], [address] [place] [address] Basophils/100 WBC (Bld) 0.3 % Normal [facility] Comment on above: Performed By: #### Anastasiya WILLETT, PINR, 17261-3, BMP #### [facility] ([id number]) [address], [address] [place] [address] Eosinophils (Bld) [#/Vol] 0.1 10*3/uL Normal 0.0-0.4 [facility] Comment on above: Performed By: #### C BRENNON, PINR, 85787-1, BMP #### [facility] ([id number]) [address] [place] [address] Eosinophils/100 WBC (Bld) 0.8 % Normal [facility] Comment on above: Performed By: #### Anastasiya WILLETT, PINR, 53037-5, BMP #### [facility] ([id number]) [address], [address] [place] [address] Erythrocyte distribution width (RBC) [Ratio] 12.4 % Normal 11.5-15.0 [facility] Comment on above: Performed By: #### C BRENNON, PINR, 39886-2, BMP #### [facility] ([id number]) [address] [address] [place] [address] Hematocrit (Bld) [Volume fraction] 39.4 % Normal 35-47 [facility] Comment on above: Performed By: #### C BRENNON, PINR, 94996-9, BMP #### [facility] ([id number]) [address], [facility] [address] [place] [address] Hemoglobin (Bld) [Mass/Vol] 13.8 g/dL Normal 11.7-15.5 [facility] Comment on above: Performed By: #### Anastasiya WILLETT, PINR, 54704-9, BMP #### [facility] ([id number]) [address], [facility] [address] [place] [address] Lymphocytes (Bld) [#/Vol] 1.9 10*3/uL Normal 1.0-3.5 [facility] Comment on above: Performed By: #### Anastasiya WILLETT, PINR, 46190-1, BMP #### [facility] ([id number]) [address] [address] [place] [address] Lymphocytes/100 WBC (Bld) 20.6 % Normal [facility] Comment on above: Performed By: #### C BCA, PINR, 14571-3, BMP #### [facility] ([id number]) [address] [address] [place] [address] MCH (RBC) [Entitic mass] 32.7 pg Normal 27-34 [facility] Comment on above: Performed By: #### Anastasiya BCA, PINR, 38505-4, BMP #### [facility] ([id number]) [address] [place] [address] MCHC (RBC) [Mass/Vol] 34.9 g/dL Normal 32-36 [facility] Comment on above: Performed By: #### C BRENNON, PINR, 45883-5, BMP #### [facility] ([id number]) [address], [address] [place] [address] MCV (RBC) [Entitic vol] 94 fL Normal 80-100 [facility] Comment on above: Performed By: #### C BRENNON, PINR, 97788-5, BMP #### [facility] ([id number]) [address] [place] [address] Monocytes (Bld) [#/Vol] 0.6 10*3/uL Normal 0-0.9 [facility] Comment on above: Performed By: #### Anastasiya WILLETT, PINR, 63656-2, BMP #### [facility] ([id number]) [address] [place] [address] Monocytes/100 WBC (Bld) 6.0 % Normal [facility] Comment on above: Performed By: #### Anastasiya WILLETT, PINR, 95748-7, BMP #### [facility] ([id number]) [address] [place] [address] Neutrophils/100 WBC (Bld) 72.3 % Normal [facility] Comment on above: Performed By: #### C BRENNON, PINR, 21553-5, BMP #### [facility] ([id number]) [address] [place] [address] Platelet mean volume (Bld) [Entitic vol] 8.4 fL Normal 7-12 [facility] Comment on above: Performed By: #### Anastasiya WILLETT, PINR, 93770-2, BMP #### [facility] ([id number]) [address] [place] [address] Platelets (Bld) [#/Vol] 156 10*3/uL Normal 150-450 [facility] Comment on above: Performed By: #### C BRENNON PINR, 77628-1, BMP #### [facility] ([id number]) [address] [place] [address] RBC COUNT 4.21 X10E12/L Normal 3.80-5.20 [facility] Comment on above: Performed By: #### C BRENNON, PINR, 02524-2, BMP #### [facility] ([id number]) [address] [place] [address] WBC (Bld) [#/Vol] 9.1 10*3/uL Normal 4.0-11.0 [facility] Comment on above: Performed By: #### C BRENNON PINR, 77034-2, BMP #### [facility] ([id number]) [address] [place] [address] CT CTV ABD AND PELVISon 01-13 CT [...] PM Normal [facility] Heparin unfractionated Chrom ogenic method Qn (PPP)on 01-23-2024 ANTI XA UFH 0.44 IU/mL Normal 0.30-0.70 [facility] Comment on above: Result Comment: Opti mal time for testing is 6 hrs post dosage This test is specific for monitoring patients on UFH, and is not recommended for use with other Anti-Xa medications. Performed By: #### 3 274-8 #### [facility] ([id number]) [address] [place] [address] PROTIME AND INRon 01-23-2024 INR Coag (PPP) [Relative time] 1.1 {INR} Normal 0.8-1.1 [facility] Comment on above: Performed By: #### C SADAF WILLETT, 70549-0, BMP #### [facility] ([id number]) [address] [place] [address] PT Coag (PPP) [Time] 12.3 s Normal 9.8-13.2 [facility] Comment on above: Performed By: #### C SADAF WILLETT, 36651-7, BMP #### [facility] ([id number]) [address] [place] [address] aPTT Coag (PPP) [Time]on aPTT Coag (Bld) [Time] 51 s High 26-37 [facility] Comment on above: Performed By: #### C SADAF WILLETT, 51880-8, BMP #### [facility] ([id number]) [address] [place] [address], [address] [place] [address] AMYLASEon 04-03-2023 Amylase [Catalytic activity/Vol] 62 U/L Normal 25-115 [facility] Comment on above: Performed By: #### L BHARTI OVALLES ####[facility] [id number] [place], [place] [address]DxDr. Reece Garg CBC AUTO DIFFon 04-03-2023 BASO # 0.0 103/ul Normal 0.0-0.1 [facility] Comment on above: Performed By: #### C BC #### [facility] [address] [address] [address] Reece Garg Basophils/100 WBC (Bld) 0.3 % Normal 0.2-2.0 [facility] Comment on above: Performed By: #### C BC #### [facility] [address] [address] [address] Reece Garg EO # 0.1 103/ul Normal 0.0-0.7 [facility] Comment on above: Performed By: #### C BC #### [facility] [address] [address] [address] Reece Garg Eosinophils/100 WBC (Bld) 0.6 % Critically low 0.9-7.0 [facility] Comment on above: Performed By: #### C BC #### [facility] [address] [address] [address] Reece Garg Erythrocyte distribution width (RBC) [Ratio] 11.9 % Normal 11.0-15.0 [facility] Comment on above: Performed By: #### C BC #### [facility] [address] [address] [address] Recee Garg Hematocrit (Bld) [Volume fraction] 37.7 % Normal 36.0-48.0 [facility] Comment on above: Performed By: #### C BC #### [facility] [address] [address] [address] Reece Garg Hemoglobin (Bld) [Mass/Vol] 12.9 g/dL Normal 12.0-16.0 [facility] Comment on above: Performed By: #### C BC #### [facility] [address] [place] [address] Dr. Reece Garg IG # 0.05 10e3/ul Critically high 0.00-0.03 [facility] Comment on above: Performed By: #### C BC #### [facility] [address] [place] [address] Dr. Reece Garg IG % 0.4 % Normal 0.0-0.5 [facility] Comment on above: Performed By: #### C BC #### [facility] [address] [place] [address] Dr. Reece Garg LYMPH # 2.3 103/ul Normal 1.2-3.8 [facility] Comment on above: Performed By: #### C BC #### [facility] [address] [place] [address] Dr. Reece Garg Lymphocytes/100 WBC (Bld) 20.8 % Normal 20.5-60.0 [facility] Comment on above: Performed By: #### C BC #### [facility] [address] [place] [address] Dr. Reece Garg MANUAL DIFF REQ NO Normal [facility] Comment on above: Performed By: #### C BC #### [facility] [address] [place] [address] Dr. Reece Garg MCH (RBC) [Entitic mass] 32.3 pg Normal 26.7-34.0 [facility] Comment on above: Performed By: #### C BC #### [facility] [address] [place] [address] Dr. Reece Garg MCHC (RBC) [Mass/Vol] 34.2 g/dL Normal 29.9-35.2 [facility] Comment on above: Performed By: #### C BC #### [facility] [address] [place] [address] Dr. Reece Garg MCV (RBC) [Entitic vol] 94.3 fL Normal 81.0-99.0 [facility] Comment on above: Performed By: #### C BC #### [facility] [address] [address] [address] Reece Garg MONO # 0.6 103/ul Normal 0.3-0.8 [facility] Comment on above: Performed By: #### C BC #### [facility] [address] [address] [address] Reece Garg Monocytes/100 WBC (Bld) 5.3 % Normal 1.7-12.0 [facility] Comment on above: Performed By: #### C BC #### [facility] [address] [place] [address] Dr. Reece Garg NEUT # 8.1 103/ul Critically high 1.4-6.5 [facility] Comment on above: Performed By: #### C BC #### [facility] [address] [place] [address] Dr. Reece Garg Neutrophils/100 WBC (Bld) 72.6 % Normal 43.0-75.0 [facility] Comment on above: Performed By: #### C BC #### [facility] [address] [place] [address] Dr. Reece Garg Platelet mean volume (Bld) [Entitic vol] 10.2 fL Normal 9.5-13.5 [facility] Comment on above: Performed By: #### C BC #### [facility] [address] [place] [address] Dr. Reece Garg PLT 163 103/ul Normal 150-450 [facility] Comment on above: Performed By: #### C BC #### [facility] [address] [place] [address] Dr. Reece Garg RBC 4.00 106/ul Critically low 4.20-5.40 [facility] Comment on above: Performed By: #### C BC #### [facility] [address] [place] [address] Dr. Reece Garg WBC 11.1 103/ul Critically high 4.0-11.0 [facility] Comment on above: Performed By: #### C BC #### [facility] [address] [place] [address] Dr. Reece Garg BASO # 0.0 103/ul Normal 0.0-0.1 [facility] Comment on above: Performed By: #### C BC #### [facility] [address] [address] [address] Reece Garg Basophils/100 WBC (Bld) 0.3 % Normal 0.2-2.0 [facility] Comment on above: Performed By: #### C BC #### [facility] [address] [place] [address] Dr. Reece Garg EO # 0.1 103/ul Normal 0.0-0.7 [facility] Comment on above: Performed By: #### C BC #### [facility] [address] [place] [address] Dr. Reece Garg Eosinophils/100 WBC (Bld) 0.7 % Critically low 0.9-7.0 [facility] Comment on above: Performed By: #### C BC #### [facility] [address] [place] [address] Dr. Reece Garg Erythrocyte distribution width (RBC) [Ratio] 12.0 % Normal 11.0-15.0 [facility] Comment on above: Performed By: #### C BC #### [facility] [address] [place] [address] Dr. Reece Garg Hematocrit (Bld) [Volume fraction] 41.4 % Normal 36.0-48.0 [facility] Comment on above: Performed By: #### C BC #### [facility] [address] [place] [address] Dr. Reece Garg Hemoglobin (Bld) [Mass/Vol] 14.3 g/dL Normal 12.0-16.0 [facility] Comment on above: Performed By: #### C BC #### [facility] [address] [place] [address] Dr. Reece Garg IG # 0.05 10e3/ul Critically high 0.00-0.03 [facility] Comment on above: Performed By: #### C BC #### [facility] [address] [place] [address] Dr. Reece Garg IG % 0.3 % Normal 0.0-0.5 [facility] Comment on above: Performed By: #### C BC #### [facility] [address] [place] [address] Dr. Reece Garg LYMPH # 1.6 103/ul Normal 1.2-3.8 [facility] Comment on above: Performed By: #### C BC #### [facility] [address] [place] [address] Dr. Reece Garg Lymphocytes/100 WBC (Bld) 10.6 % Critically low 20.5-60.0 [facility] Comment on above: Performed By: #### C BC #### [facility] [address] [place] [address] Dr. Reece Garg MANUAL DIFF REQ NO Normal [facility] Comment on above: Performed By: #### C BC #### [facility] [address] [place] [address] Dr. Reece Garg MCH (RBC) [Entitic mass] 32.1 pg Normal 26.7-34.0 [facility] Comment on above: Performed By: #### C BC #### [facility] [address] [place] [address] Dr. Reece Garg MCHC (RBC) [Mass/Vol] 34.5 g/dL Normal 29.9-35.2 [facility] Comment on above: Performed By: #### C BC #### [facility] [address] [place] [address] Dr. Reece Garg MCV (RBC) [Entitic vol] 93.0 fL Normal 81.0-99.0 [facility] Comment on above: Performed By: #### C BC #### [facility] [address] [place] [address] Dr. Reece Garg MONO # 0.7 103/ul Normal 0.3-0.8 [facility] Comment on above: Performed By: #### C BC #### [facility] [address] [place] [address] Dr. Reece Garg Monocytes/100 WBC (Bld) 4.7 % Normal 1.7-12.0 [facility] Comment on above: Performed By: #### C BC #### [facility] [address] [place] [address] Dr. Reece Garg NEUT # 12.9 103/ul Critically high 1.4-6.5 [facility] Comment on above: Performed By: #### C BC #### [facility] [address] [place] [address] Dr. Reece Garg Neutrophils/100 WBC (Bld) 83.4 % Critically high 43.0-75.0 [facility] Comment on above: Performed By: #### C BC #### [facility] [address] [place] [address] Dr. Reece Garg Platelet mean volume (Bld) [Entitic vol] 10.4 fL Normal 9.5-13.5 [facility] Comment on above: Performed By: #### C BC #### [facility] [address] [place] [address] Dr. Reece Garg PLT 194 103/ul Normal 150-450 [facility] Comment on above: Performed By: #### C BC #### [facility] [address] [place] [address] Dr. Reece Garg RBC 4.45 106/ul Normal 4.20-5.40 [facility] Comment on above: Performed By: #### C BC #### [facility] [address] [place] [address] Dr. Reece Garg WBC 15.4 103/ul Critically high 4.0-11.0 [facility] Comment on above: Performed By: #### C BC #### [facility] [address] [place] [address] ABD/PELV W CONon 04-03-20 23 [...] LAVON ELIZALDE Date: 2023-04-03 01:36 Normal [facility] ER URINE PROFILEon 3 Bilirubin Ql (U) Negative Normal NEGATIVE [facility] Comment on above: Performed By: #### P REGU, ERUR #### [facility] [address] [address] [address] Reece Garg Clarity (U) CLEAR Normal CLEAR [facility] Comment on above: Performed By: #### P REGU, ERUR #### [facility] [address] [address] [address] Reece Garg Color (U) LT. YELLOW Normal YELLOW [facility] Comment on above: Performed By: #### P REGU, ERUR #### [facility] [address] [address] [address] Reece KHAN A micrscopic examination will be performed if indicated. Normal [facility] Comment on above: Performed By: #### P REGU, ERUR #### [facility] [address] [address] [address] Reece Garg Glucose Ql (U) Negative Normal NEGATIVE [facility] Comment on above: Performed By: #### P REGU, ERUR #### [facility] [address] [address] [address] Reece Garg Hemoglobin Ql (U) Negative Normal NEGATIVE [facility] Comment on above: Performed By: #### P REGU, ERUR #### [facility] [address] [address] [address] Reece Garg Ketones Ql (U) 15 mg/dl Abnormal NEGATIVE [facility] Comment on above: Performed By: #### P REGU, ERUR #### [facility] [address] [address] [address] Reece Garg LEUKOCYTES Negative Normal NEGATIVE [facility] Comment on above: Performed By: #### P REGU, ERUR #### [facility] [address] [address] [address] Reece Garg Nitrite Ql (U) Negative Normal NEGATIVE [facility] Comment on above: Performed By: #### P REGU, ERUR #### [facility] [address] [address] [address] Reece Garg pH (U) 5.5 [pH] Normal 5-9 [facility] Comment on above: Performed By: #### P REGU, ERUR #### [facility] [address] [address] [address] Reece Garg SPEC GRAVITY <=1.005 Abnormal 1.005-<=1.025 [facility] Comment on above: Performed By: #### P REGU, ERUR #### [facility] [address] [address] [address] Reece Garg UA PROTEIN Negative Normal NEGATIVE/ TRACE [facility] Comment on above: Performed By: #### P REGU, ERUR #### [facility] [address] [address] [address] Reece Garg UR MICRO IND NOT INDICATED Normal [facility] Comment on above: Performed By: #### P REGU, ERUR #### [facility] [address] [address] [address] Reece Garg Urobilinogen Qn (U) 0.2 {Dariel'U}/dL Normal 0.2 - 1. 0 [facility] Comment on above: Performed By: #### P REGU, ERUR #### [facility] [address] [address] [address] Reece Garg LIPASEon 04-03-2023 Lipase [Catalytic activity/Vol] 62.0 U/L Critically low 73.0-393.0 [facility] Comment on above: Performed By: #### L IPA, BHARTI ####[facility] [id number] [address]Dr. Reece Garg MONOon 04-03-2023 Monocytes (Bld) [#/Vol] Negative Normal NEGATIVE [facility] Comment on above: Performed By: #### M JOSE DANIEL #### [facility] [address] [place] [address] Dr. Reece Garg URon 04-03-2023 , QUAL Negative Normal NEGATIVE [facility] Comment on above: Performed By: #### P REGU, ERUR #### [facility] [address] [place] [address] Dr. Reece Garg PROF 14(COMP METB)on 023 Albumin [Mass/Vol] 3.3 g/dL Critically low 3.4-5.0 [facility] Comment on above: Performed By: #### C MP #### [facility] [address] [place] [address] Dr. Reece Garg Albumin/Globulin [Mass ratio] 1.0 {ratio} Normal [facility] Comment on above: Performed By: #### C MP #### [facility] [address] [place] [address] Dr. Reece Garg ALP [Catalytic activity/Vol] 38 U/L Critically low 46-116 [facility] Comment on above: Performed By: #### C MP #### [facility] [address] [address] [address] Reece Garg ALT [Catalytic activity/Vol] 16 U/L Normal 14-59 [facility] Comment on above: Performed By: #### C MP #### [facility] [address] [address] [address] Reece Garg Anion gap [Moles/Vol] 10.7 mmol/L Normal [facility] Comment on above: Performed By: #### C MP #### [facility] [address] [place] [address] Dr. Reece Garg AST [Catalytic activity/Vol] 10 U/L Critically low 15-37 [facility] Comment on above: Performed By: #### C MP #### [facility] [address] [place] [address] Dr. Reece Garg Bilirubin [Mass/Vol] 1.0 mg/dL Normal 0.2-1.0 [facility] Comment on above: Performed By: #### C MP #### [facility] [address] [place] [address] Dr. Reece Garg Calcium [Mass/Vol] 8.2 mg/dL Critically low 8.5-10.1 [facility] Comment on above: Performed By: #### C MP #### [facility] [address] [address] [address] Reece Garg Chloride [Moles/Vol] 106 mmol/L Normal 98-107 [facility] Comment on above: Performed By: #### C MP #### [facility] [address] [place] [address] Dr. Reece Garg CO2 [Moles/Vol] 27.0 mmol/L Normal 21.0-32.0 [facility] Comment on above: Performed By: #### C MP #### [facility] [address] [place] [address] Dr. Reece Garg Creatinine [Mass/Vol] 0.77 mg/dL Normal 0.55-1.02 [facility] Comment on above: Performed By: #### C MP #### [facility] [address] [address] [address] Reece Garg EGFR-AF BELARUSIAN >60 Normal >=60 [facility] Comment on above: Performed By: #### C MP #### [facility] [address] [address] [address] Reece Garg EGFR-NON AF BELARUSIAN >60 Normal >=60 [facility] Comment on above: Performed By: #### C MP #### [facility] [address] [address] [address] Reece Garg Globulin (S) [Mass/Vol] 3.3 g/dL Normal [facility] Comment on above: Performed By: #### C MP #### [facility] [address] [place] [address] Dr. Reece Garg Glucose [Mass/Vol] 102 mg/dL Normal 74-106 [facility] Comment on above: Performed By: #### C MP #### [facility] [address] [address] [address] Reece Garg Potassium [Moles/Vol] 3.7 mmol/L Normal 3.5-5.1 [facility] Comment on above: Performed By: #### C MP #### [facility] [address] [place] [address] Dr. Reece Garg Protein [Mass/Vol] 6.6 g/dL Normal 6.4-8.[address] [facility] Comment on above: Performed By: #### C MP #### [facility] [address] [address] [address] Reece Garg Sodium [Moles/Vol] 140 mmol/L Normal 136-[address] [facility] Comment on above: Performed By: #### C MP #### [facility] [address] [address] [address] Reece Garg Urea nitrogen [Mass/Vol] 8.0 mg/dL Normal 7.0-18.0 [facility] Comment on above: Performed By: #### C MP #### [facility] [address] [place] [address] Dr. Reece Garg Urea nitrogen/Creatinine [Mass ratio] 10.4 mg/mg Normal [facility] Comment on above: Performed By: #### C MP #### [facility] [address] [place] [address] Dr. Reece Garg PROTIMEon 04-03-2023 INR Coag (PPP) [Relative time] 1.06 {INR} Normal [facility] Comment on above: Performed By: #### P TT, PT #### [facility] [address] [place] [address] Dr. Reece Garg INR GUIDELINES SEE BELOW Normal [facility] Comment on above: Result Comment: JJ RED INR: 2.0 - 3.0 CONDITIONS NOT LISTED BELOW 2.5 - 3.5 FOR PROSTHETIC HEART VALVE REPLACEMENT 2.5 - 3.5 RECURRENT THROMBOSIS Performed By: #### P TT, PT #### [facility] [address] [place] [address] Dr. Reece Garg PT Coag (PPP) [Time] 11.2 s Normal 9.0-11.6 [facility] Comment on above: Performed By: #### P TT, PT #### [facility] [address] [place] [address] Dr. Reece Garg PTTon 04-03-2023 aPTT Coag (Bld) [Time] 28.1 s Normal 22.3-36.2 [facility] Comment on above: Performed By: #### P TT, PT #### [facility] [address] [place] [address] Dr. Reece Garg PAP ACOG PANEL 2: 30 to 65on 07-28-2022 . . Normal [facility] Comment on above: Result Comment: Perf ormed at: WB Performed By: #### [id number] ####[facility] [id number] [address]Dr. Reece Garg Age Gdln ACOG Testing 30-65 Normal [facility] Comment on above: Performed By: #### [id number] ####[facility] [id number] [id number]. Reece Garg DIAGNOSIS: Comment Normal [facility] Comment on above: Result Comment: NEGA TIVE FOR INTRAEPITHELIAL LESION OR MALIGNANCY. Performed at: WB Performed By: #### [id number] ####[facility] [id number] [id number]. Reece Garg HPV Aptima Negative Normal Negative [facility] Comment on above: Result Comment: This nucleic acid amplification test detects fourteen high-risk HPV types (16,18,31,33,35,39,45,51,52,56,58,59,66,68) without differentiation. Performed at: =G Performed By: #### [id number] ####[facility] [id number] [place], [place] [address]Dr. Reece Garg Methodology: Comment Normal [facility] Comment on above: Result Comment: This liquid based ThinPrep(R) pap test was screened with the use of an image guided system. Performed at: WB Performed By: #### [id number] ####[facility] [id number] [id number]. Reece Garg Note: Comment Normal [facility] Comment on above: Result Comment: The Pap smear is a screening test designed to aid in the detection of premalignant and malignant conditions of the uterine cervix. It is not a diagnostic procedure and should not be used as the sole means of detecting cervical cancer. Both false-positive and false-negative reports do occur. . Performed at: WB Performed By: #### [id number] ####[facility] [id number] [id number]. Reece Garg Performed by: Comment Normal [facility] Comment on above: Result Comment: Alexandra Cortez, Case Hardener (ASCP) Performed at: WB Performed By: #### [id number] ####[facility] [id number] [id number]. Reece Garg Specimen adequacy: Comment Normal [facility] Comment on above: Result Comment: Sati sfactory for evaluation. No endocervical component is identified. Performed at: WB Performed By: #### [id number] ####[facility] [id number] [place], [place] [address]Dr. Reece Garg VAGINITIS/VAGINOSIS DNA PROB Erwin 07-24-2022 Micheal species Negative Normal Negative [facility] Comment on above: Performed By: #### V AGINT #### [facility] [address] [address] [address] Reece Garg Gardnerella vaginalis Positive Abnormal Negative [facility] Comment on above: Performed By: #### V AGINT #### [facility] [address] [address] [address] Reece Garg Trichomonas vaginalis Negative Normal Negative [facility] Comment on above: Performed By: #### V AGINT #### [facility] [address] [address] [address] Reece Garg Vital Signs Date Time Vital Sign Value Performing Clinician Facility 05-31-2025 08:35-0400 Body mass index (BMI) [Ratio] 24.14 kg/m2 Jani Bridges MD Work Phone: [facility] 05-31-2025 08:35-0400 Body weight 59.88 kg Jani Bridges MD Work Phone: [facility] 05-31-2025 08:35-0400 Diastolic blood pressure 68 mm[Hg] Jani Bridges MD Work Phone: [facility] 05-31-2025 08:35-0400 Heart rate 62 /min Jani Bridges MD Work Phone: [facility] 05-31-2025 08:35-0400 Systolic blood pressure 102 mm[Hg] Jani Bridges MD Work Phone: [facility] 04-03-2025 09:37-0400 Body mass index (BMI) [Ratio] 24.51 kg/m2 Andre Hudson DO Work Phone: [facility] 04-03-2025 09:37-0400 Body weight 60.78 kg Andre Hudson DO Work Phone: [facility] 04-03-2025 09:37-0400 Diastolic blood pressure 70 mm[Hg] Andre Hudson DO Work Phone: [facility] 04-03-2025 09:37-0400 Systolic blood pressure 114 mm[Hg] Andre Hudson DO Work Phone: [facility] 12-26-2024 10:07-0500 Blood Pressure Location SYDNEE ALVAREZ [facility] 12-26-2024 10:07-0500 Diastolic blood pressure 90 mm[Hg] SYDNEEMARIELLE ALVAREZ [facility] 12-26-2024 10:07-0500 Heart rate 70 /min SYDNEE ALVAREZ [facility] 12-26-2024 10:07-0500 Systolic blood pressure 130 mm[Hg] SYDNEE JAMARI [facility] 08-31-2024 10:09-0400 Body mass index (BMI) [Ratio] 24.11 kg/m2 Andre Hudson DO Work Phone: [facility] 08-31-2024 10:09-0400 Body weight 59.78 kg Andre Hudson DO Work Phone: [facility] 08-31-2024 10:09-0400 Diastolic blood pressure 70 mm[Hg] Andre Hudson DO Work Phone: [facility] 08-31-2024 10:09-0400 Systolic blood pressure 110 mm[Hg] Andre Hudson DO Work Phone: [facility] 08-08-2024 11:15-0400 Blood Pressure Location SYDNEE ALVAREZ [facility] 08-08-2024 11:15-0400 Diastolic blood pressure 63 mm[Hg] SYDNEE JAMARI [facility] 08-08-2024 11:15-0400 Heart rate 61 /min SYDNEE ALVAREZ [facility] 08-08-2024 11:15-0400 Respiratory rate 19 /min SYDNEE ALVAREZ [facility] 08-08-2024 11:15-0400 Systolic blood pressure 96 mm[Hg] SYDNEE ALVAREZ [facility] 07-31-2024 09:53-0400 Body height 157.5 cm Andre Hudson DO Work Phone: [facility] 07-31-2024 09:53-0400 Body mass index (BMI) [Ratio] 23.96 kg/m2 Andre Hudson DO Work Phone: [facility] 07-31-2024 09:53-0400 Body weight 59.42 kg Andre Hudson DO Work Phone: [facility] 07-31-2024 09:53-0400 Diastolic blood pressure 68 mm[Hg] Andre Hudson DO Work Phone: [facility] 07-31-2024 09:53-0400 Systolic blood pressure 102 mm[Hg] Andre Hudson DO Work Phone: [facility] 07-10-2024 16:25-0400 Body mass index (BMI) [Ratio] 24.29 kg/m2 Bharti RIBEIRO Work Phone: [facility] 07-10-2024 16:25-0400 Body weight 60.24 kg Bharti RIBEIRO Work Phone: [facility] 05-25-2024 08:43-0400 Body height 157.5 cm Jani Bridges MD Work Phone: [facility] 05-25-2024 08:43-0400 Body mass index (BMI) [Ratio] 23.78 kg/m2 Jani Bridges MD Work Phone: [facility] 05-25-2024 08:43-0400 Body weight 58.97 kg Jani Bridges MD Work Phone: [facility] 05-25-2024 08:43-0400 Diastolic blood pressure 68 mm[Hg] Jani Bridges MD Work Phone: [facility] 05-25-2024 08:43-0400 Heart rate 66 /min Jani Bridges MD Work Phone: [facility] 05-25-2024 08:43-0400 SaO2% (BldA) [Mass fraction] 98 % Jani Bridges MD Work Phone: [facility] 05-25-2024 08:43-0400 Systolic blood pressure 97 mm[Hg] Jani Bridges MD Work Phone: [facility] Encounters Encounter Date Encounter Type Care Provider Facility Start: 05-31-2025 End: 05-31-2025 Office outpatient visit 25 minutes Jani Bridges MD Work Phone: [facility] Comment on above: 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); Acute deep vein thrombosis (DVT) of iliac vein of left lower extremity ([facility]) Start: 05-31-2025 End: 05-31-2025 ambulatory [facility] Start: 05-30-2025 ambulatory USMAN Byrd [facility] Start: 05-23-2025 End: 05-23-2025 [...] encounter procedure Julien HOYOS [facility] Start: 04-03-2025 End: 04-03-2025 Bamboo flowsheet Andre [...] 02-19-2025 ambulatory Usman Rodrigez MD Work Phone: [facility] Work Phone: Start: 02-19-2025 End: 02-19-2025 Discharged Recurring Usman Rodrigez MD Work Phone: [facility] [place] Start: 12-26-2024 End: 12-26-2024 ambulatory Julien HOYOS Facility: [facility] Start: 12-26-2024 End: 12-26-2024 Patient encounter procedure SYDNEE ALVAREZ [facility] Start: 10-03-2024 End: 10-03-2024 ambulatory Julien HOYOS Facility:[facility] Start: 10-03-2024 End: 10-03-2024 Patient encounter procedure Julien HOYOS [facility] Start: 09-20-2024 End: 09-20-2024 Bamboo flowsheet Theresa Perez [facility] Work Phone: [facility] Start: 09-20-2024 End: 09-20-2024 Bamboo flowsheet Theresa Perez [facility] Work Phone: [facility] Start: 09-20-2024 End: 09-20-2024 Social Work Theresa Perez [facility] Work Phone: [facility] Comment on above: IRVING (generalized anx iety disorder) (CMS/HCC); Adjustment disorder with depressed mood (CMS/HCC) Start: 08-31-2024 End: 08-31-2024 Bamboo flowsheet Andre Hudson DO Work Phone: [facility] Start: 08-31-2024 End: 08-31-2024 Bamboo flowsheet Andre Hudson DO Work Phone: [facility] Start: 08-31-2024 End: 08-31-2024 Office outpatient visit 15 minutes Andre Hudson DO Work Phone: [facility] Comment on above: Vaginal discharge; STD exposure Start: 08-31-2024 End: 08-31-2024 ambulatory ANDRE HUDSON Not Available Start: 08-10-2024 End: 08-10-2024 Bamboo flowsheet Theresa Perez [facility] Work Phone: [facility] Start: 08-10-2024 End: 08-10-2024 Bamboo flowsheet Theresa Perez [facility] Work Phone: [facility] Start: 08-10-2024 End: 08-10-2024 Social Work Theresa Perez [facility] Work Phone: [facility] Comment on above: IRVING (generalized anx iety disorder) ([facility]) Start: 08-08-2024 End: 08-08-2024 ambulatory SYDNEE ALVAREZ Facility:[facility] Start: 08-08-2024 End: 08-08-2024 Patient encounter procedure SYDNEE ALVAREZ [facility] Start: 08-03-2024 ambulatory Julien HOYOS Facility :[facility] Start: 08-03-2024 End: 08-03-2024 ambulatory ANDRE HUDSON [...] 07-18-2024 End: 07-18-2024 Bamboo flowsheet Theresa Perez [facility] Work Phone: [facility] SWS Start: 07-18-2024 End: 07-18-2024 Bamboo flowsheet Theresa Perez [facility] Work Phone: [facility] Start: 07-18-2024 End: 07-18-2024 Social Work Theresa Perez [facility] Work Phone: [facility] Comment on above: IRVING (generalized anx iety disorder) ([facility] Start: 07-10-2024 End: 07-10-2024 Office outpatient visit 15 minutes Bharti RIBEIRO Work Phone: [facility] Comment on above: UTI symptoms; Vaginal discharge; STD exposure Start: 07-10-2024 End: 07-10-2024 ambulatory BHARTI AL Not Available Start: 07-10-2024 End: 07-12-2024 External Result Encounter Bharti RIBEIRO Work Phone: [facility] Unsolicited Start: 07-10-2024 End: 07-12-2024 External Result Encounter Bharti RIBEIRO Work Phone: [facility] Unsolicited Start: 06-29-2024 End: 06-29-2024 Social Work Theresa Martinez Chris [facility] Work Phone: [facility] Comment on above: IRVING (generalized anx iety disorder) ([facility]) Start: 05-25-2024 End: 05-25-2024 Office outpatient visit 25 minutes Jani Bridges MD Work Phone: [facility] Comment on above: 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); Acute deep vein thrombosis (DVT) of iliac vein of left lower extremity ([facility]) Start: 05-25-2024 End: 05-25-2024 ambulatory [facility] Start: 04-27-2024 End: 04-27-2024 Office outpatient visit 25 minutes Jani Bridges MD Work Phone: [facility] Comment on above: 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); 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 ([facility]) Start: 04-27-2024 ambulatory [facility] Start: 04-03-2024 End: 04-11-2024 Orders Only Not In System Ref Prov [facility] Start: 02-10-2024 End: 02-10-2024 Office outpatient visit 15 minutes Jani Bridges MD Work Phone: [facility] Comment on above: Acute deep vein thro mbosis (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); May-Thurner syndrome Start: 02-10-2024 ambulatory [facility] Start: 01-26-2024 End: 01-26-2024 [facility] Start: 01-24-2024 End: 01-26-2024 Evaluation and management of inpatient [facility] Start: 01-24-2024 End: 01-24-2024 [facility] Start: 01-24-2024 ambulatory [facility] Start: 01-23-2024 End: 01-26-2024 Evaluation and management of inpatient STEPHEN STOKES [facility] Start: 01-23-2024 End: 01-25-2024 Evaluation and management of inpatient [facility] Start: 04-03-2023 End: 04-03-[address] USMAN RODRIGEZ . Facility:[facility]1 Start: 07-26-2022 Encounter for gynecological examination (general) (routine) without abnormal findings DR EARLENE MCDONOUGH . [facility] Start: 07-22-2022 End: 07-22-[address] [...] Phone: Start: 01-07-2024 Fallopian tube excision SYDNEE ALVAREZ Comment on above: partial Start: 11-15-2023 [...] Screening for malign ant neoplasm of cervix [facility] Start: 07-31-2027 Screening for malign ant neoplasm of cervix Pap Smear [facility] Start: 08-24-2026 Screening for malign ant neoplasm of cervix Pap Smear [facility] Start: 06-06-2026 End: 06-06-2026 Patient encounter procedure 06/06/2026 8:30 AM EDT Office Visit [facility] [place] [address] [address] [place] [address] Jani Bridges MD [address] [place] [address] [facility] Start: 05-31-2026 Adult BMI Screening Adult BMI Screen ing [facility] Start: 05-31-2026 Tobacco Screening Tobacco Screening [facility] Start: 05-27-2026 End: 05-27-2026 Patient encounter procedure 05/27/2026 8:30 AM EDT Appointment [facility] [address] [place] [address] Jani Bridges MD [address] [place] [address] [facility] Start: 08-06-2025 End: 08-06-2025 Patient encounter procedure 08/06/2025 10:00 AM EDT Office [facility] OB [address] [place] [phone] Andre Treviño, [address] [facility] [address] [place] [address] [facility] Start: 07-16-2025 Influenza vaccination [facility] Start: 05-31-2025 End: 05-31-2026 US.doppler Thoracic and Abdominal Aorta and Inferior Vena Cava and Illiac vessels Vas IVC/iliac duplex complete Vascular Ultrasound Routine May-Thurner syndrome Acute deep vein thrombosis (DVT) of iliac vein of left lower extremity ([facility]) Expected: 05/31/2025, Expires: 05/31/2026 [employer] Work Phone: Comment on above: Expected: 05/31/2025 , Expires: 05/31/2026 Start: 05-25-2025 Adult BMI Screening Adult BMI Screen ing [facility] Start: 05-25-2025 Tobacco Screening Tobacco Screening [facility] Start: 05-24-2025 End: 05-24-2025 Patient encounter procedure 05/24/2025 8:30 AM EDT Office Visit [facility] [address] [place] [address] Jani Bridges MD [address], [address] [place] [address] [facility] Start: 04-17-2025 End: 04-17-2025 Patient encounter procedure 04/17/2025 8:00 AM EDT Office Visit [facility] [address] [place] [phone] Andre Treviño, DO [address] [place], [place] [id number] [facility] Start: 04-03-2025 End: 04-03-2025 Patient encounter procedure 04/03/2025 9:20 AM EDT Office Visit [facility] [address] [place] [phone] Andre Treviño, DO [address] [facility] [place], [facility] Arrived [facility] Comment on above: Arrived Start: 02-13-2025 Adult BMI Screening Adult BMI Screen ing [facility] Start: 02-13-2025 Tobacco Screening Tobacco Screening [facility] Start: 01-24-2025 Adult BMI Screening Adult BMI Screen ing [facility] Start: 01-23-2025 Tobacco Screening Tobacco Screening [facility] Start: 01-22-2025 Depression Screening Depression Scre ening [facility] Start: 10-17-2024 End: 10-17-2024 Social Work 10/17/2024 11:00 AM EST Social Work [facility] [address] [place] [address] Theresa Perez, [facility] [address] [place] [address] [facility] Start: 09-20-2024 End: 09-20-2024 Social Work 09/20/2024 8:00 AM EST Social Work [facility] [address] [place] [phone] Theresa Perez, [facility] [address] [place] [address] Arrived [facility] Comment on above: Arrived Start: 09-06-2024 End: 09-06-2024 Social Work 09/06/2024 2:00 PM EDT Social Work [facility] [address] [place] [phone] Theresa Perez, [facility] [address] [place] [address] [facility] Start: 08-31-2024 End: 08-31-2024 Patient encounter procedure [facility] Comment on above: Arrived Start: 08-30-2024 End: 08-30-2024 Social Work 08/30/2024 9:00 AM EDT Social Work [facility] [address] [place] [phone] Theresa Perez, [facility] [address] [place] [address] [facility] Start: 08-10-2024 End: 08-10-2024 Social Work [facility] Comment on above: Arrived Start: 07-31-2024 End: 07-31-2024 Patient encounter procedure [facility] Comment on above: Arrived Start: 07-18-2024 End: 07-18-2024 Social Work 07/18/2024 11:00 AM EDT Social Work [facility] [address] [place] [address] Theresa Perez, [facility] [address] [place] [address] [facility] Start: 07-16-2024 COVID-19 Vaccine ( season) COVID-19 Vaccine () [facility] Start: 07-16-2024 Influenza vaccination N [facility] Start: 05-25-2024 End: 05-25-2024 Patient encounter procedure 05/25/2024 8:50 AM EDT Office Visit [facility] [address] [place] [address] Jani Bridges MD [address], [address] [address] [facility] Start: 05-11-2024 End: 05-11-2024 Patient encounter procedure 05/11/2024 10:00 AM EDT Office Visit [facility] [address] [place] [address] Jani Bridges MD [address], [address] [address] [facility] Start: 04-27-2024 End: 04-27-2025 CTA Upper extremity vessels - left CT angiogram extremity upper left Imaging Routine 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) Expected: 04/27/2024, Expires: 04/27/2025 [employer] Work Phone: Comment on above: Expected: 04/27/2024 , Expires: 04/27/2025 Start: 02-25-2024 End: 02-10-2025 US.doppler Thoracic and Abdominal Aorta and Inferior Vena Cava and Illiac vessels Vas IVC/iliac duplex complete Vascular Ultrasound Routine Acute deep vein thrombosis (DVT) of iliac vein of left lower extremity (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 Expected: 02/25/2024 (Approximate), Expires: 02/10/2025 [facility] Work Phone: Comment on above: Expected: 02/25/2024 (Approximate), Expires: 02/10/2025 Start: 07-16-2023 Influenza vaccination Influenza Vacc ine [facility] Start: 02-14-2019 DTaP,Tdap and Td Vaccines (6 - Tdap) DTaP,Tdap and Td Vaccines (6 - Tdap) [facility] Start: 2013 Screening for malign ant neoplasm of cervix Pap Smear [facility] Start: 2010 Adult BMI Follow Up Plan Adult BMI Follow Up Plan [facility] Aerobic culture Aerobic culture Microbiology Routine Nipple discharge Nipple infection in female Ordered: 04/03/2025 [facility] Comment on above: Ordered: 04/03/2025 Anaerobic culture Anaerobic cult ure Microbiology Routine Nipple discharge Nipple infection in female Ordered: 04/03/2025 [facility] Work Phone: Comment on above: Ordered: 04/03/2025 Bacteria identified in Urine by Culture Urine culture Microbiology Routine UTI symptoms Ordered: 07/11/2024 [facility] Comment on above: Ordered: 07/11/2024 End: 04-27-2025 C-reactive protein C-reactive protein Lab Routine 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) 1 Occurrences starting 04/27/2024 until 04/27/2025 [facility] Comment on above: 1 Occurrences starti ng 04/27/2024 until 04/27/2025 CHLAMYDIA TRACHOMATI S (GENITO/STI) CHLAMYDIA TRACHOMATIS (GENITO/STI) Lab Routine Chronic bladder pain Ordered: 07/31/2024 [facility] Comment on above: Ordered: 07/31/2024 CHLAMYDIA TRACHOMATI S (GENITO/STI) CHLAMYDIA TRACHOMATIS (GENITO/STI) Lab Routine STD exposure Ordered: 07/11/2024 [facility] Comment on above: Ordered: 07/11/2024 Cytology Cervical or vaginal smear or scraping study Pap Smear Pathology and Cytology Routine Well woman exam with routine gynecological exam Ordered: 07/31/2024 [facility] Work Phone: Comment on above: Ordered: 07/31/2024 End: 04-27-2025 Erythrocyte sedimentation rate Erythrocyte Sedimentation Rate (ESR) Lab Routine 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) 1 Occurrences starting 04/27/2024 until 04/27/2025 [facility] Comment on above: 1 Occurrences starti ng 04/27/2024 until 04/27/2025 Human papilloma viru s DNA [Presence] in Unspecified specimen by Probe with amplification HPV DNA probe, amplified Microbiology Routine Well woman exam with routine gynecological exam Ordered: 07/31/2024 [facility] Comment on above: Ordered: 07/31/2024 Neisseria gonorrhoea e DNA [Presence] in Unspecified specimen by MÓNICA with probe detection Neisseria gonorrhea DNA probe, direct Lab Routine Chronic bladder pain Ordered: 07/31/2024 [facility] Comment on above: Ordered: 07/31/2024 Neisseria gonorrhoea e DNA [Presence] in Unspecified specimen by MÓNICA with probe detection Neisseria gonorrhea DNA probe, direct Lab Routine STD exposure Ordered: 07/11/2024 [facility] Comment on above: Ordered: 07/11/2024 SURESWAB(R) ADVANCED VAGINITIS PLUS, TMA SURESWAB(R) ADVANCED VAGINITIS PLUS, TMA Pathology and Cytology Routine Chronic bladder pain Ordered: 07/31/2024 [facility] Comment on above: Ordered: 07/31/2024 SURESWAB(R) ADVANCED VAGINITIS PLUS, TMA SURESWAB(R) ADVANCED VAGINITIS PLUS, TMA Pathology and Cytology Routine Vaginal discharge Ordered: 07/11/2024 [facility] Work Phone: Comment on above: Ordered: 07/11/2024 Immunizations Immunization Date Immunization Notes Care Provider Сергей cheung 05-13-2021 SARS-CoV-2 (COVID-19 ) mRNA BNT-162b2 vax SYDNEE ALVAREZ [facility] 04-22-2021 SARS-CoV-2 (COVID-19 ) mRNA BNT-162b2 vax SYDNEE ALVAREZ [facility] 07-04-2019 hepatitis B vaccine, adult dosage SYDNEE ALVAREZ [facility] 05-02-2019 hepatitis B vaccine, adult dosage SYDNEE JAMARI [facility] 02-28-2019 hepatitis B vaccine, adult dosage SYDNEE JAMARI [facility] 02-13-2019 Td(adult) unspecifie d formulation SYDNEE JAMARI [facility] Comment on above: Result Comment: 2023: TENIVAC GIVEN BY DR RODRIGEZ IN [facility] [place] 07-11-1997 diphtheria, tetanus toxoids and acellular pertussis vaccine SYDNEE JAMARI [facility] 07-11-1997 measles, mumps and rubella virus vaccine SYDNEE JAMARI [facility] 07-11-1997 poliovirus vaccine, unspecified formulation SYDNEE JAMARI [facility] 06-23-1993 Hib, unspecified formulation SYDNEE JAMARI [facility] 06-23-1993 measles, mumps and rubella virus vaccine SYDNEE JAMARI [facility] 06-23-1993 poliovirus vaccine, unspecified formulation SYDNEE JAMARI [facility] 1992 Hib, unspecified formulation SYDNEE JAMARI [facility] 1992 Hib, unspecified formulation SYDNEE JAMARI [facility] 1992 poliovirus vaccine, unspecified formulation SYDNEE JAMARI [facility] 1992 Hib, unspecified formulation SYDNEE ALVAREZ [facility] 1992 poliovirus vaccine, unspecified formulation SYDNEE ALVAREZ [facility] Payers Date Payer Category Payer Self-pay 2024 Unknown [id number] 2022 Blue [employer] Blue Shie ld Managed Care - Other [id number] 2022 Private Health Insurance [id number] 2022 Unknown [id number] [id number] 1.315 2007 Unknown [id number] 1992 Unknown [id number] 2.840.1.676980.3.579.2.593 1992 Unknown [id number] 2.840.1.315417.3.579.2.593 1992 Unknown [id number] 2.840.1.353005.3.579.2.1285 1992 Unknown [id number] 2.840.1.831292.3.579.2.1285 1992 Unknown [id number] 2.16840.1.185386.3.579.2.1285 1992 Unknown [id number] 2.16.840.1.833325.3.579.2.1285 1992 Unknown [id number] 2.16840.1.472951.3.579.2.1285 1992 Unknown [id number] 2.16840.1.370479.3.579.2.1285 1992 Unknown [id number] 2.16.840.1.120343.3.579.2.1285 1992 Unknown [id number] 2.840.1.495832.3.579.2.1285 1992 Unknown [id number] 2.16840.1.665707.3.579.2.1285 1992 Unknown [id number] 2.840.1.170942.3.579.2.1285 1992 Unknown [id number] 2.840.1.147037.3.579.2.1258 1992 Unknown [id number] 2..1.374819.3.579.2.1258 1992 Unknown [id number] 2.840.1.408636.3.579.2.1258 1992 Unknown [id number] 2.840.1.356499.3.579.2.1258 1992 Unknown [id number] 2.840.1.109301.3.579.2.1258 1992 Unknown [id number] 2.0.1.983969.3.579.2.1258 1992 Unknown [id number] 2.840.1.621669.3.579.2.1258 1992 Unknown [id number] 2.840.1.513861.3.579.2.1258 1992 Unknown [id number] 2.840.1.382517.3.579.2.1258 1992 Unknown [id number] 2.840.1.428931.3.579.2.7 1992 Unknown [id number] 2.840.1.566774.3.579.2.727 1992 Unknown [id number] 2.16.840.1.762518.3.579.2.727 1992 Unknown [id number] 2.16.840.1.492502.3.579.2.727 1992 Unknown [id number] 2.16.840.1.437026.3.579.2.727 1992 Unknown [id number] 2.16.840.1.840727.3.579.2.1286 1992 Unknown [id number] 2.16.840.1.527971.3.579.2.1286 1959 Medicaid [id number] 1959 Unknown [id number] 1959 Unknown [id number] 1959 Unknown [id number] Unknown [id number] Unknown [id number] 2.16.840.1.581642.3.579.2.531 Social History Date Type Detail Facility Start: 01-23-2024 End: 08-08-2024 Tobacco smoking status Ex-smoker (finding) [facility] Start: 12-26-2020 End: 07-31-2024 Sex Assigned At Unknown [facility] History of tobacco use Current smoker [facility] History of tobacco use Cigarette Smoker [facility] Start: 12-26-2020 End: 07-31-2024 Cigarettes smoked current (pack per day) - Reported 0.5 [facility] Start: 01-23-2024 End: 07-31-2024 Tobacco use and exposure Smokeless tobacco non-user [facility] Start: 08-03-2024 End: 04-03-2025 Alcoholic beverage intake Lifetime non-drinker (finding) [facility] Start: 09-10-2023 Tobacco Comment 5 or less ciga rettes a day [facility] Start: 1992 Sex assigned at Not on file [facility] Start: 09-10-2023 [facility] sm[facility] Start: 02-14-2024 End: 05-31-2025 Alcoholic beverage intake Ex-drinker (finding) [facility] Has the Functional Neuromodulation, [employer], or [employer] threatened to shut off services in your home in past 12Mo No [facility] [employer] System How often to you hav e a drink containing alcohol? Never [facility] [employer] System How many standard dr inks containing alcohol do you have on a typical day? Patient does not drink [facility] Tobacco smoking stat [facility] Unknown if ever smoked [facility] Work Phone: Start: 03-24-2018 End: 02-20-2025 Sex Female (finding) [facility] Start: 1990 Sex Assigned At Female F [facility] Sexual Orientation [facility] [place] Medical Equipment Procedure Code Equipment Code Equipment Origin al Text Equipment Identifier Dates Stent Vsc 18mm X 100mm Venous Nitinol Slf Expanding Abre - [id number] Start: 01-24-2024 Functional Status Date Assessment Result Facility 12-26-2024 Functional Status N/A [facility] 10-03-2024 Functional Status N/A [facility] 08-08-2024 Functional Status N/A [facility] Clinical Notes 02-10-2024 to 05-31-2025 Assessment & Plan Note - Jani Bridges MD - 05/31/2025 7:02 PM EDTAssessment & Plan Note - Jani Bridges MD - 05/31/2025 7:02 PM EDTMvinny Bridges MD - 05/31/2025 8:30 AM EDT Note Date & Type Note Facility 05-31-2025 Evaluation + Plan note Associated Problem(s): DVT (deep venous thrombosis) ([facility]) Continue anticoagulation. [facility] 05-31-2025 Evaluation + Plan note Associated Problem(s): May-Thurner syndrome Continue antiplatelets. Duplex ultrasound in a year. [facility] 05-31-2025 Miscellaneous Notes Associated Problem(s): DVT (deep venous thrombosis) ([facility]) Continue anticoagulation. Associated Problem(s): May-Thurner syndrome Continue antiplatelets. Duplex ultrasound in a year. documented in this encounter [facility] 05-31-2025 History of Presen t illness Narrative [...] 01/24/2024 Performed by Jani Bridges MD at [facility] Social and Family History: Social [...] Jani Bridges MD, [place], RPVI, FSVS, FACS [facility] This note was created with the assistance of a speech recognition program. While intending to generate a timely document that accurately reflects the content of the visit, no guarantee can be provided that every grammatical or spelling mistake has been or will be identified or corrected. Thank you for your understanding. documented in this encounter [facility] 04-17-2025 History of Presen t illness Narrative Reason for Appointment: Patient ID: Tawana Silverman is a 35 y.o. female who presents for No chief complaint on file. Patient presents today via telephone call for a telehealth appointment. Patients Phone #: [phone] (mobile) Date: 04/17/2025 Time: 9:51 AM of [...] Andre Treviño DO documented in this encounter [facility] 04-03-2025 History of Presen t illness Narrative [...] nursing note reviewed. Exam conducted with a electronic imager present. Vitals: Estimated body mass index is [...] Andre Treviño DO documented in this encounter [facility] 12-26-2024 Hospital Discharg e instructions Patient Education [...] Follow these instructions at home: Medicines Take [id number] and prescription medicines only as told by [...] provider. Document Revised: 08/18/2023 Document Reviewed: 08/18/2023 [employer] Patient Education 2023 [employer]. Follow Up Care 10/03/2024 10:18:19 With:[facility] Address: When: Unknown Comments:Only if needed/new problems arise. No scheduled appointment indicated at this time. [facility] 12-26-2024 Note Patient Education Gastroenterology Abdominal Pain, [...] these instructions at home: Medicines ??? Take [id number] and prescription medicines only as told by [...] provider. Document Revised: 08/18/2023 Document Reviewed: 08/18/2023 [employer] Patient Education ? 2023 [employer]. [facility] 10-03-2024 Evaluation + Plan note Extrac casandra [...] Date:12/26/2024 09:30:00 AM Scheduled Provider:SYDNEE ALVAREZ PA-C Location:[facility] Appointment Type:URO Office Visit Appointment Date:04/04/2025 01:00:00 PM Scheduled Provider:Julien HOYOS MD Location:[facility] Appointment Type:URO Office Visit [facility] 11-19-2024 Hospital Discharge instructions Patient Education [...] Up Care 08/18/2024 15:06:34 With:Julien HOYOS Address: [address] [place] [address] Business (1) When:01/31/2025 10:02:39 Comments:With Roxane Alvarez [facility] 11-19-2024 NoteProgress Note-Physician Patient: TAWANA SILVERMAN [...] All Problems Endometriosis (clinical) / SNOMED CT 881724887 / Confirmed Deep venous thrombosis / SNOMED CT 203154394 / Confirmed Factor V deficiency / SNOMED CT 2774617 / Confirmed Leukocytosis / SNOMED CT 247635180 / Confirmed Migraine / SNOMED CT 06211419 / Confirmed Anxiety / SNOMED CT 34502867 / Confirmed Chronic pelvic pain in female / SNOMED CT 645587906 / Confirmed Chronic bladder pain / SNOMED CT 1428505305 / Confirmed Recurrent vaginitis / SNOMED CT 81064437 / Confirmed Histories Past Medical History: No active or resolved past medical history items have been selected or recorded. Family History: Congenital heart disease Mother Primary malignant neoplasm of female breast Grandparent Alcoholism Mother Migraines Mother Procedure history: Thrombectomy (05255065) in 2023 at 34 Years. Salpingectomy (5001016014) on 01/07/2024 at 33 Years. Comments: 08/08/2024 8:57 Therese Lowe MA partial History of appendectomy (situation) (3426539631). History of - hysterectomy (context-dependent category) (904349626). Laparoscope (414247386). Comments: 08/08/2024 8:55 Therese Lowe MA pelvic [...] Follow-up will be in 4 months for reevaluation.[facility]Comment [facility] above:Result Comment: Electronically Signed By: ROMAIN NAVARRO, Julien Pimentel.shikha\Date and Time Signed: 10/03/24 10:13 [id number] NotePatient Education Custom Cystoscopy with Urethral Dilation [...] fever over 100 degreesFisher [facility] History of Present illness Narrative* April [...] nursing note reviewed. Exam conducted with a electronic imager present. Vitals: Estimated body mass index is [...] of: Andre Treviño DO documented in this encounterWestern Missouri Mental Health CenterLprwetasom54-25-5112 Hospital Discharge instructions Patient Education 08/08/2024 12:40:13 [...] known. Follow these instructions at home: Take liwv-rmv-dwnrnnl and prescription medicines only as told by [...] provider. Document Revised: 03/10/2022 Document Reviewed: 03/10/2022 [employer] Patient Education 2023 CityHour. Follow Up Care 08/03/2024 15:49:20 With:[facility] Address: [address] [place] [address] Business (1) When: Unknown Comments:our material scheduler will be contacting you for follow-up [facility] 09-24-2024 NoteUrology Office/Clinic Note Chief Complaint Dr. [...] test anxiety. Knows she will need a retail delivery driver. Ordered: diazepam, See Instructions, 1 tab po 30-60 mins prior to cystoscopy, # 1 tab(s), Refills(s) 0, [id number] 158, cm, 08/08/24 11:39:00 EDT, Height/Length Dosing, 60, kg, 08/08/24 11:39:00 EDT, Weight Dosing E&M of New Patient Moderate 45-59 Min 29695 2. Chronic pelvic pain in female (R10.2: Pelvic and perineal pain) Sp hysterectomy 2017 w several laproscopy d/t endometriosis. Had laproscopy Dec 2023 and bilat salpingectomy at that time. Pt reports no endometriosis found at that time. Will refer to [facility]PT at [facility] (her sx are a bit beyond my scope of PFPT) to assess for hypertonicpelvic floor, etc. Ordered: diazepam, See Instructions, 1 tab po 30-60 mins prior to cystoscopy, # 1 tab(s), Refills(s) 0, [id number], 158, cm, 08/08/24 11:39:00 EDT, Height/Length Dosing, 60, kg, 08/08/24 11:39:00 EDT, Weight Dosing 18431 Measure Post Void residual urine and/or bladder capacity by US- non-imaging E&M of New Patient Moderate 45-59 Min 00712 Urnls Dip Stick Auto w/o Microscopy POC 18694 3. Recurrent vaginitis (N76.0: Acute vaginitis) Also reports frequent vaginal infections - bacterial and fungal. Ordered: diazepam, See Instructions, 1 tab po 30-60 mins prior to cystoscopy, # 1 tab(s), Refills(s) 0, [id number], 158, cm, 08/08/24 11:39:00 EDT, Height/Length Dosing, 60, kg, 08/08/24 11:39:00 EDT, Weight Dosing E&M of New Patient Moderate 45-59 Min 09647 Follow-up With When Contact Information [facility] [place] [address] Business (1) Additional Instructions: our material scheduler will be contacting you for follow-up Patient Education Pelvic Pain, Female Problem List/Past Medical History Ongoing Anxiety Chronic bladder pain Chronic pelvic pain in female Deep venous thrombosis Endometriosis (clinical) Factor V deficiency Leukocytosis Migraine Recurrent vaginitis Historical No qualifying data Procedure/Surgical History Salpingectomy (01/07/2024), Thrombectomy (2023), H/O: hysterectomy, History of appendectomy, Laparoscope. Medications CV (more content not included)...[facility] CampusComment on above: Result Comment: Electronically Signed By: SYDNEE ALVAREZ PA-C\Date and Time Signed: 08/08/2412:41 [id number] NotePatient Education Obstetrics and Gynecology Pelvic Pain, [...] Follow these instructions at home: ? Take cygu-euv-eloknjd and prescription medicines only as told by [...] provider. Document Revised: 03/10/2022 Document Reviewed: 03/10/2022 [employer] Patient Education ? 2023 CityHour.[facility] 07-31-2024 History of Present illness Narrative* April [...] nursing note reviewed. Exam conducted with a electronic imager present. Vitals: Estimated body mass index is [...] of: Andre Treviño DO documented in this encounterWestern Missouri Mental Health CenterJffljpeuxg03-79-2994 History of Present illness Narrative* GEMA Earl [...] (Neurontin) 300 MG capsule 1 capsule HYDROcodone-acetaminophen (Lovell) 5-325 MG tablet TAKE 1 TABLET EVERY 4 HOURS ibuprofen 800 MG tablet TAKE 1 TABLET EVERY 8 HOURS Lactobacillus Acid-Pectin (Acidophilus/Amana Pectin) tablet 1 tablet, Oral, Daily with [...] behalf of: GEMA Earl documented in this encounterWestern Missouri Mental Health CenterRudsaerlvt05-53-4710 Evaluation + Plan note* Assessment & Plan Note - Jani Bridges MD - 05/25/2024 9:17 AM EDT Associated Problem(s): DVT (deep venous thrombosis) ([facility]) Continue anticoagulation for total of 6 months. She probably benefit from D- dimer check at that time. [facility]07-11-2024 Miscellaneous Notes* Assessment & Plan Note - Jani Bridges MD - 05/25/2024 9:17 AM EDTAssociated Problem(s): DVT (deep venous thrombosis) ([facility]) Continue anticoagulation for total of 6 months. She probably benefit from D- dimer check at that time. 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 She will continue aspirin indefinitely. She will get a surveillance imaging in a year. 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 She will continue aspirin indefinitely. She will get a surveillance imaging in a year. [facility]07-11-2024 History of Present illness Narrative* Jani [...] 01/24/2024 Performed by Jani Bridges MD at [facility] Social and Family History: Social [...] Plan: Problem List DVT (deep venous thrombosis) ([facility]) May-Thurner syndrome - Primary Current Assessment & [...] iliac vein of left lower extremity ([facility]) Jani Bridges MD, [place], RPVI, FSVS, FACS [...] you for your understanding. 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 Continue aspirin. 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 She will continue [...] 01/24/2024 Performed by Jani Bridges MD at [facility] Social and Family History: Social [...] Jani Bridges MD, [place], RPVI, FSVS, FACS [facility] This note was created with the assistance of a speech recognition program. While intending to generate a timely document that accurately reflects the content of the visit, no guarantee can be provided that every grammatical or spelling mistake has been or will be identified or corrected. Thank you for your understanding. documented in this encounterC[facility] Clinic [facility]03-28-2024 History of Present illness Narrative* Jani Bridges MD - 02/10/2024 2:40 PM EDT Images from the original note were not included. [facility] [address] [place] [phone] Subjective: Patient ID: Tawana Silverman is a [...] List Diagnosis DVT (deep venous thrombosis) ([facility]) May-Thurner syndrome Current Outpatient [...] iliac vein of left lower extremity ([facility]) May-Thurner syndrome Plan Plan: Eliquis ASA US of the left iliac veins F/U in 3 months Jani Bridges MD, [place] documented in this encounterMercy Health [facility]erm[facility] SystemEvaluation + Plan note No data available for this section [facility] evaluation + Plan note Future Appointments Appointment Date:04/04/2025 01:00:00 PM Scheduled Provider:Julien HOYOS MD Location:[facility] Appointment Type:URO Office Visit [facility] evaluation note* Diagnosis Vaginal discharge Leukorrhea, not specified as infective STD exposure documented [facility] this encounter [facility]* Diagnosis IRVING (generalized anxiety disorder) ([facility] Generalized anxiety disorder Adjustment disorder with depressed mood ([facility]) Adjustment disorder with depressed mood documented in this encounter [facility]* Diagnosis Well woman exam with routine gynecological exam Routine gynecological examination Chronic bladder pain documented in this encounter [facility]* Diagnosis IRVING (generalized anxiety disorder) ([facility]) Generalized anxiety disorder documented in this encounter [...] [facility] noteNo assessment information available [facility] Work Phone: Evaluation note* Diagnosis Nipple pain [...] available for this section [facility] InstructionsNot on filedocumented in this encounter [facility] SystemInstructionsNot on filedocumented in this encounter [facility] SystemInstructionsNot on filedocumented in this encounter [facility] SystemInstructionsNot on filedocumented in this encounter [facility] SystemInstructionsNot on filedocumented in this encounter [facility] SystemInstructionsNot on filedocumented in this encounter [facility] SystemProgress note No data available for this section [facility] Summary Purpose Family History No [...] iliac vein of left lower extremity ([facility]) May-Thurner syndrome Procedures Vas IVC/iliac duplex complete Jani Bridges MD [address], [address] [address] Referral ID Status Reason Start Date Expiration Date V isits Requested Visits Authorized [id number] Pending Review 02/11/2024 02/10/2025 1 1 Specialty Diagnoses / Procedures Referred By Contac t Referred To Contact Radiology Diagnoses 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 DATE CREATED AUTHOR AUTHOR'S ORGANIZ ATION 01/27/2024 [facility] DATE CREATED AUTHOR AUTHOR'S ORGANIZ ATION 05/31/2024 [facility] DATE CREATED AUTHOR AUTHOR'S ORGANIZ ATION 04/04/2025 [facility] DATE CREATED AUTHOR AUTHOR'S ORGANIZ ATION 04/11/2025 [facility] DATE CREATED AUTHOR AUTHOR'S ORGANIZ ATION 06/03/2025 [facility] DATE CREATED AUTHOR AUTHOR'S ORGANIZ ATION 06/27/2025 [facility] Patient Care team informatio n (unrecognized section and content) Specialty Molder Relationship Specialty Start Date End Date Usman Rodrigez MD [address] [place] [phone] 275 PCP - General Family Medicine 03/24/23 Specialty Molder Relationship Specialty Start Date End Date Usman Rodrigez MD [address] [place] [address] PCP - General Family Medicine 03/24/23 Specialty Molder Relationship Specialty Start Date End Date Usman Rodrigez MD [address] [place] [address] PCP - General Family Medicine 03/24/23 Specialty Molder Relationship Specialty Start Date End Date Usman Rodrigez MD [address] [place] [address] PCP - General Family Medicine 03/24/23 Specialty Molder Relationship Specialty Start Date End Date Usman Rodrigez MD [address] [place] [address] PCP - General Family Medicine 03/24/23 Specialty Molder Relationship Specialty Start Date End Date Usman Rodrigez MD [address] [place] [address] PCP - General Family Medicine 03/24/23 Specialty Molder Relationship Specialty Start Date End Date Usman Rodrigez MD [address] [place] [address] PCP - General 02/09/24 Specialty Molder Relationship Specialty Start Date End Date Usman Rodrigez MD [address] [place] [id number] PCP - General 02/09/24 Specialty Molder Relationship Specialty Start Date End Date Usman Rodrigez MD [address] [place] [address] PCP - General 02/09/24 Specialty Molder Relationship Specialty [place] [address] [place], [place] [phone] PCP - General 02/09/24 Team Status: Active Member Role Status Dates Usman Rodrigez MD Primary Care Provider Active Team Status: Inactive Member Role Status Dates Sydnee Alvarez PA-C Attending Provider Active Start: February 19, 2025 End: February 19, 2025 Usman Rodrigez MD Primary Care Provider Active Start: February 19, 2025 End: February 19, 2025 Specialty Molder Relationship Specialty Start Date End Date Usman Rodrigez MD PCP - General 02/09/24 Specialty Molder Relationship Specialty Start Date End Date Usman Rodrigez MD PCP - General Family Medicine 03/24/23 Theresa Perez [facility] [address] [place] [address] Instrument Technician [facility] 01/08/25 Specialty Molder Relationship Specialty Start Date End Date Usman Rodrigez MD PCP - General Family Medicine 03/24/23 Theresa Perez, [facility] [address] [place] [address] Instrument Technician [facility] 01/08/25 Specialty Molder Relationship Specialty Start Date End Date Usman Rodrigez MD PCP - General Family Medicine 03/24/23 Theresa Perez, [facility] [address] [facility] [address] [place] [address] Instrument Technician [facility] 01/08/25 Specialty Molder Relationship Specialty Start Date End Date Usman Rodrigez MD PCP - General Family Medicine 03/24/23 Specialty Molder Relationship Specialty Start Date End Date Usman [...] BE BASED ON THE PRIMARY CLINICAL RECORDS. [facility]. provides no warranty or guarantee of the accuracy or completeness of information in this document.
[2025-07-02 08:49] VITALS: BP 103/67; BP 105/69; PULSE 68; PULSE 72; O2SAT 98
[2025-07-02] MEDS: BUPIVACAINE HCL 0.25% PF 25 MG/10 ML VIAL 2 ML INJ (08:50)
[2025-07-02] MEDS: METHYLPREDNISOLONE ACETATE 40 MG/ML VIAL INJ (08:51)
[2025-07-02] MEDS: IOHEXOL 240 MG/ML - 10 ML VIAL 24 MG INJ (08:51)
[2025-07-02] MEDS: LIDOCAINE HCL 2% 400 MG/20 ML MDV INJ (08:51)
--- NOTE | 2025-07-02 08:51 | W.PM.PROCNOT ---
Date of procedure: 07/02/25 Pre-op diagnosis: Pain due to left sacroiliitis Post-op diagnosis: same as pre-op Procedure: Procedure: Left sacroiliac joint injection Medications: Bupivacaine 0.25% 3cc, depomedrol 40mg After informed consent was obtained, the patient was brought to the medical procedure unit and placed in the prone position, when a timeout was completed verifying correct patient, procedure, site, positioning, implant, and/or special equipment.? The skin overlying the area was prepped and draped in standard sterile fashion using alcohol.? A 25-gauge needle was inserted towards the left sacroiliac joint under direct fluoroscopic imaging.? Needle tip was advanced until the joint was encountered.? We instilled a total of 2 mL of solution.? Postoperatively needles were removed.? The patient tolerated the procedure well without complication.? The patient reported reduction in pain symptoms postoperatively. Anesthesia: Local Surgeon: Kirit Pierce Pathology: none sent Condition: stable Disposition: no change
== END 2025-07-02 08:56 | disposition home or self-care (01) ==
PROVIDERS: PCP Family Medicine; Visit Provider Anesthesiology
DX: M46.1 Sacroiliitis, not elsewhere classified (principal); M53.3 Sacrococcygeal disorders, not elsewhere classified
CPT/HCPCS: 27096; J0665; J1010; Q9966

== ENCOUNTER 2025-07-11 08:52 | Outpatient (OUT) | payer BC, SELFPAY ==
--- OUTSIDE RECORDS SUMMARY | 2025-06-13 06:30 | XMS_ITS ---
Author Organization The [facility] in [place] Address [address] [place] [address] Care Team Providers Care Back Grinder Name Role Phone Rui Alvarez Primary Care Provider Allergies No Known Allergies Reason For Referral Diagnosis 1 Sacrococcygeal disor ders, not elsewhere classified (M53.3) Referral Organization [facility] Referring Provider First Name Rui Referring Provider Last Name Kim Referring Provider Speciality Family Med icine Referred Provider Pain Management, [facility] Referred Provider Specialty Pain Medicin e Referral Priority Routine REASON FOR VISIT Left hip pain- finished PT, PT did help some, still doing the exercises at home- doesn't relieve the pain correction- worse when sitting or standing for long periods of time, Did have her f/u with Vascular as well- everything was fine there- they said the stent shouldn't be causing the pain, Was taking a muscle relaxer from Dr Treviño for PRN use, Delivery Professional refilled the muscle relaxer for her yesterday to get her through until the next step is figured out Medications Medication SIG (Take, Route, Frequency, Duration) Notes Start Date End Date Status Aspir-Low 81 MG 1 tablet Orally Once a day Active Eliquis 5 MG 1 tablet Orally Twic e a day Active Probiotic Active Cyclobenzaprine HCl 10 MG Take 1/2 table t Orally twice daily 06/13/2025 Active Social History Tobacco Use: Social History Observation Description Date Details (start date - stop date) Former Smoker 05/15/2005 - 06/15/2023 Tobacco Control (Standard) Question Answer Notes Tobacco use: Former smoker When did you start smoking? 05/15/2005 When did you stop smoking? 06/15/2023 Problems Problem Type SNOMED Code ICD Code Onset Dates Problem Status W/U Status Risk Notes Problem Arthralgia of the pelvic region and thigh (045351269) Left hip pain (M25.552) Active confirmed Vital Signs Blood pressure systolic 122 mm Hg 06/13/20 25 Blood pressure diastolic 84 mm Hg 025 Height 62 in 06/13/2025 Weight 133.0 lbs 06/13/2025 BMI 24.32 kg/m2 06/13/2025 Encounters Encounter Location Date Provider Diagnosis [facility] [address] [place] [address] 06/13/2025 Rui Hoy Sacrococcygeal disor ders, not elsewhere classified M53.3 and Left hip pain M25.552 Assessments Encounter Date Diagnosis (ICD Code) Assessment Notes Treatment Notes Treatment Clinical Notes Section Notes 06/13/2025 Sacrococcygeal disorders, not elsewhere classified (ICD-10 - M53.3) 06/13/2025 Left hip pain (ICD-10 - M25.552) Plan Of Treatment Referrals Referral Date Details 06/13/2025 06/13/2025, [facility] Pain Management Next Appt Details Provider Name:Yanni Durand , 06/11/2026 08:30:00 AM, [address] [place], [address], Progress Notes * Tawana MCMAHON RDOB: [birth year] (35 yo F)Acc No.[id number]:06/13/2025 Progress Note Patient: Tawana ARZOLA Provider: Hanane Alvarez ([facility])MD :1990 A ge:35 Y S ex:Female Date:06/13/2025 Address:[address] [place], [place] [id number] Check In:10:21 AM ESTCheck O ut:11:19 AM EST Subjective: * Chief Complaints: * L eft hip pain- finished PT, PT did help some, still doing the exercises at home- doesn't relieve the pain correction- worse when sitting or standing for long periods of timeDid have her f/u with Vascular as well- everything was fine there- they said the stent shouldn't be causing the painWas taking a muscle relaxer from Dr Treviño for PRN useHematologist refilled the muscle relaxer for her yesterday to get her through until the next step is figured out * HPI: G eneral: Lt hip pain - not had arthrocentesis macrina ha hematology - revieweed results -. 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 M other: , diagnosed with Unspecified heart disease. B erasmo(s): alive. S ister(s): alive. S on(s): alive. D aughter(s): alive. 1 brother(s) , 2 sister(s) . 1 son(s) , 1 daughter(s) . . Father living. Mother due to cardiac tamponade. Has 1 living brother and 2 living sisters. Has 2 children. * Social History: T obacco Use: T obacco Control (Standard) T obacco use: F ormer smoker W hen did you start smoking? 0 05/15/2005 W hen did you stop smoking? 0 06/15/2023 * Medications: T akingAspir-Low 81 MG Tablet Delayed Release 1 tablet Orally Once a day Cyclobenzaprine HCl 10 MG Tablet Take 1/2 tablet Orally twice daily Eliquis(Apixaban) 5 MG Tablet 1 tablet Orally Twice a day Probiotic Taking Aspir-Low 81 MG Tablet Delayed Release 1 tablet Orally Once a day Taking Cyclobenzaprine HCl 10 MG Tablet Take 1/2 tablet Orally twice daily Taking Eliquis(Apixaban) 5 MG Tablet 1 tablet Orally Twice a day Taking Probiotic DiscontinuedALPRAZolam 0.25 MG Tablet 1 tablet Orally tid F41.9Cephalexin 500 MG Capsule Oral Fluconazole 150 MG Tablet Oral Gabapentin 100 MG Capsule 2 caps for 2 weeks, 1 cap for 2 weeks Orally qhs Medication List reviewed and reconciled with the patientDiscontinued ALPRAZolam 0.25 MG Tablet 1 tablet Orally tid F41.9Discontinued Cephalexin 500 MG Capsule Oral Discontinued Fluconazole 150 MG Tablet Oral Discontinued Gabapentin 100 MG Capsule 2 caps for 2 weeks, 1 cap for 2 weeks Orally qhs Medication List reviewed and reconciled with the patient * Allergies: N .K.D.A.no[Allergies Verified] Objective: * Vitals: W t:133.0lbs, Ht: 62 in, BP:122/84mm Hg, BMI:24.32Index, Ht-cm: 157.48 cm, Wt-k.33 kg. * Examination: A bdomen Exam:: L eft hip pian ithinr and wet rotatyion -. Assessment: * Assessment: 1. S acrococcygeal disorders, not elsewhere classified - M53.3 (Primary) 2 .?Left hip pain - M25.552 Plan: * Treatment: * Procedure Codes: * * Sign off status: Completed Visit Status: C HK (Check Out) true * Provider: Hanane Alvarez ([facility]C)MD Date: 0 06/13/2025 Generated for Jeffery gutiérrez/Macario/eTransmitting on: 0 07/11/2025 08:54 AM EDT History and Physical Notes * HPI (History of Present Illness) Category Sub-Category Detail Notes Category Not es General Lt hip pain - not had arthrocentesis seeign vasmorris aratad hematology - revieweed results - Examination Category Sub-Category Detail Notes Category Not es Abdomen Exam: Left hip pian ithinr and wet rotatyion - Consultation Request Notes Referral Date Referring Provider Referred Provider Not es 06/13/2025 Rui Alvarez Pain Management, [facility]
--- OUTSIDE RECORDS SUMMARY | 2025-06-13 07:16 | XMS_ITS ---
Author Organization [facility] in [place] Address [address] [place] [address] Care Team Providers Care Radio Mechanic Name Role Phone Rui Alvarez Primary Care Provider [phone] REASON FOR VISIT Arthrocentesis Encounters Encounter Location Date Provider Diagnosis [facility] [address] [place] [address] 06/13/2025 Rui Alvarez Left hip pain M25.55 2 Assessments Encounter Date Diagnosis (ICD Code) Assessment Notes Treatment Notes Treatment Clinical Notes Section Notes 06/13/2025 Left hip pain (ICD-10 - M25.552) Plan Of Treatment Pending Test Test Name Order Date US ARTHROCENTESIS, WITH US GUIDANCE 05/17 Next Appt Details Provider Name:Yanni Durand , 06/11/2026 08:30:00 AM, [address] [place], [address], Progress Notes * Tawana MCMAHON RDOB: 2 (35 yo F)Acc No.[id number]:06/13/2025 Patient: Slim Tawana ZAZUETA :1990 A ge:35 Y S ex:Female Address:[address] [place] [address], [address] Subjective: * Chief Complaints: * A rthrocentesis * Medical History: * Surgical History: * Hospitalization/Major Diagno stic Procedure: * Medications: Objective: * Vitals: * Physical Examination: Assessment: * Assessment: 1. L eft hip pain - M25.552 (Primary) Plan: * Treatment: * Procedure Codes: * true * Date: Generated for Jeffery gutiérrez/Macario/Dyllan on: 0 07/11/2025 08:55 AM EDT
--- OUTSIDE RECORDS SUMMARY | 2025-06-25 06:50 | XMS_ITS ---
Author Organization [facility] [place] Address [address] [place] [address] Care Team Providers Care Wire Frame Lamp Shade Maker Name Role Phone Rui Alvarez Primary Care Provider [phone] Reason For Referral Diagnosis 1 Left hip pain (M25.5 52) Referral Organization [facility] Referring Provider First Name Rui Referring Provider Last Name Kim Referring Provider [facility] icine Referred Provider Patricio Ledesma Referred Provider Specialty Orthopedic S urgery Referral Priority Routine REASON FOR VISIT hip injection Encounters Encounter Location Date Provider Diagnosis [facility] [address] [place] [address] 06/25/2025 Rui Alvarez Left hip pain M25.55 2 Assessments Encounter Date Diagnosis (ICD Code) Assessment Notes Treatment Notes Treatment Clinical Notes Section Notes 06/25/2025 Left hip pain (ICD-10 - M25.552) Plan Of Treatment Referrals Referral Date Details 06/26/2025 06/26/2025, Patricio garcia Next Appt Details Provider Name:Yanni Durand , 06/11/2026 08:30:00 AM, [address] [place], [address], Progress Notes * Tawana MCMAHON RDOB: [birth year] (35 yo F)Acc No.[id number]:06/25/2025 Patient: Tawana ARZOLA :1990 A ge:35 Y S ex:Female Address:[address] [place] [address], [phone] Subjective: * Chief Complaints: * H ip injection * Medical History: * Surgical History: * Hospitalization/Major Diagno stic Procedure: * Medications: Objective: * Vitals: * Physical Examination: Assessment: * Assessment: 1. L eft hip pain - M25.552 (Primary) Plan: * Treatment: * Procedure Codes: * true * Date: Generated for Jeffery gutiérrez/Macario/eTransmitting on: 0 07/11/2025 08:55 AM EDT Consultation Request Notes Referral Date Referring Provider Referred Provider Not es 06/26/2025 Rui Alvarez Justin
--- OUTSIDE RECORDS SUMMARY | 2025-07-11 08:55 | XMS_ITS | Clinical Summary ---
Author Organization [facility] Address [id number] [address] 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; Acute deep vein thrombosis (DVT) of iliac vein of left lower extremity ([facility]) 05/29/2025 Travel 05/23/2025 10:00 AM EDT Ancillary Procedure [facility] [employer] [address] [place] [phone] Pain 05/10/2025 Telephone [facility] [place] [address] Jani Bridges MD 05/07/2025 Orders Only [facility] [place] [place] [address] Nabila Strong CMA 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); 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; Acute deep vein thrombosis (DVT) of iliac vein of left lower extremity ([facility] 05/07/2025 Telephone [facility] [place] [address] Kaity Newman from Last 3 Months Immunizations No known immunizations Social History Tobacco Use Types Packs/Day Years Used Date Smoking Tobacco: Former Cigarettes Smokeless Tobacco: Never Tobacco Cessation:Counseling Given: Not Answered Alcohol Use Standard Drinks/Week Comments Not Currently 0 (1 standard drink = 0.6 oz pur e alcohol) [facility] Utilities Answer Date Recorded In the past 12 months has [employer], gas, oil, or water [employer] threatened to shut off services in your [...] 8:30 AM EDT Appointment [facility] - [facility] [address] [place] [phone] Jani Bridges MD [address], [address] [address] 06/06/2026 8:30 AM EDT Office Visit [facility] [place] [address] Jani Bridges MD [address], [facility] [address] [place] [address] Health Maintenance Due Date Last Done Comments DTaP,Tdap and Td Vaccines (6 - Tdap) 02/14/2019 02/13/2019, 07/11/1997, 06/23/1993, Additional history exists COVID-19 Vaccine (2023-2 5 season) 2024 05/13/2021, 04/22/2021 Depression Screening 01/22/2025 01/23/2024 Influenza Vaccine 07/16/2025 Adult BMI Screening 05/31/2026 05/31/2025 Tobacco Screening 05/31/2026 05/31/2025 Pap Smear 07/31/2027 07/31/2024, 08/24/2023 Medical Devices Implanted Type Area Machine Assembler For Puller Over Device Identifier Shelf Expiration Date Model / Serial / Lot Stent Vsc 18mm X 100mm Venous Nitinol Slf Expanding Abre - [id number] Implanted:Qty: 1 on 01/24/2024 by [facility]i Bridges [facility] at [facility] Stent Left: Vena Cava [employer] [facility] 12/16/2026 [id number] / / [id number] Procedures Procedure Name Priority Date/Time Associated Diagnosis [...] 2:36 PM 01/25/2024 4:20 PM Care Teams Software Reliability Engineer Relationship Specialty Start Date End Date Dank Alvarez MD PCP - General 02/09/24
--- OUTSIDE RECORDS SUMMARY | 2025-07-11 08:55 | XMS_ITS | Encounter Summary ---
Author Organization [employer] Address [id number] [address] 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 ([facility]) Social History Tobacco Use Types Packs/Day Years Used Date Smoking Tobacco: Former Cigarettes Smokeless Tobacco: Never Alcohol Use Standard Drinks/Week Comments Not Currently 0 (1 standard drink = 0.6 oz pur e alcohol) [facility] Utilities Answer Date Recorded In the past 12 months has th [employer], gas, oil, or water company threatened [...] Info) Description 05/27/2026 8:30 AM EDT Appointment [facility] - Vascular [address] [place] [phone] Jani Bridges MD [address], [address] [address] 06/06/2026 8:30 AM EDT Office Visit 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
--- OUTSIDE RECORDS SUMMARY | 2025-07-11 08:55 | XMS_ITS | Encounter Summary ---
Author Organization [employer] Sys tem Address [facility] [id number] [address] [place] [address] Care Team Providers Care Garden Consultant Name Role Phone Dank Alvarez MD Primary Care Provider [phone] Encounter Details Date Type Department Care Team (Late st Contact Info) Description 05/07/2025 Telephone [facility] [address] [place] [phone] Kaity Newman Social History Tobacco Use Types Packs/Day Years Used Date Smoking Tobacco: Former Cigarettes Smokeless Tobacco: Never Alcohol Use Standard Drinks/Week Comments Not Currently 0 (1 standard drink = 0.6 oz pur e alcohol) [facility] Utilities Answer Date Recorded In the past [...] iliac duplex/IVC. She needs order sent to [facility]. Fax number is [phone]. Please send over as pt has upcoming appt with Dr. Bridges on 05/24. Pt would like a call back when completed [phone] is best number for Tawana. * Telephone Encounter - Nabila Strong CMA - 05/07/2025 1:56 PM EDT Put order in and called patient and let her know its been faxed, Let her know to give them a coupledays , then call to get scheduled * Telephone Encounter - Mireya Peace - 05/07/2025 1:56 PM EDT Patient is calling because [facility] is asking that the last office visit note be sent for them to start prior authorization for her test. Educational Coordinator faxed office visit note and order together as requested by patient. documented in this encounter Plan of Treatment Upcoming Encounters Date Type Department Care Team (Late st Contact Info) Description 05/27/2026 8:30 AM EDT Appointment [facility] - Vascular [address] [place] [address] Jani Bridges MD [address], [address] [address] 06/06/2026 8:30 AM EDT Office Visit [facility] [address] [place] [address] Jani Bridges MD [address], [facility] [address] [place] [address] documented as of this encounter Visit Diagnoses Not on filedocumented in this encounter Additional Health Concerns Assessment Noted Time PHQ-9 Depression Total Score: 0 01/23/20 24 7:47 PM EDT documented as of this encounter Care Teams Garden Consultant Relationship Specialty Start Date End Date Dank Alvarez MD PCP - General 02/09/24 documented as of this encounter
--- OUTSIDE RECORDS SUMMARY | 2025-07-11 08:55 | XMS_ITS | Encounter Summary ---
Author Organization [employer] Sys tem Address [facility] [place][id number] [address] 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; Acute deep vein thrombosis (DVT) of iliac vein of left lower extremity ([facility]) Social History Tobacco Use Types Packs/Day Years Used Date Smoking Tobacco: Former Cigarettes Smokeless Tobacco: Never Alcohol Use Standard Drinks/Week Comments Not Currently 0 (1 standard drink = 0.6 oz pur e alcohol) [facility] Utilities Answer Date Recorded In the past 12 months has th [employer], gas, oil, or water [facility] threatened to shut off services in your [...] [facility] [address] [place] [address] Jani Bridges MD [address], [address] [place] [address] 06/06/2026 8:30 AM EDT Office Visit [facility] [address] [place] [address] Jani Bridges MD [address], [address] [place] [address] documented as of this encounter Visit Diagnoses 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
--- OUTSIDE RECORDS SUMMARY | 2025-07-11 08:55 | XMS_ITS | Encounter Summary ---
Author Organization [facility] Address [address] [place] [address] Care Team Providers Care Stranding Machine Operator Name Role Phone Dank Alvarez MD Primary Care Provider [phone] Deborah Perez [facility] Un[facility] [phone] Encounter Details Date Type Department Care Team (Late Contact Info) Description 04/18/2024 Clinisync Result Encounter [facility] External Department Unsolicited Dionne Bridges MD [address], [address] [address] Social History Tobacco Use Types Packs/Day Years [...] Office Visit [facility] [address] [place] [address] Andre Treviño DO [address] [place], [place] [phone] documented as of this encounter Procedures Procedure Name Priority Date/Time Associated Diagnosis Comments VASC US IVC ILIAC DUPLEX COMPLETE 04/18/2024 11:15 AM EDT documented in this encounter Results * Vascular US IVC iliac duplex complete (04/18/2024 11:15 AM EDT) Anatomical Region Laterality Modality Abdomen Ultrasound 04/18/2024 11:1 5 AM EDT Narrative 04/18/2024 11:18 [place] [address] Ultrasound Report Signed Patient: TAWANA MCMAHON MR#: [id number] : 1990 Acct:[id number] Age/Sex: 34 / F ADM Date: 04/17/24 Loc: US Attending Dr: Dionne Bridges M.D. Ordering Physician: Dionne Bridges M.D. Date of Service: 04/17/24 Procedure(s): US duplex IVC Accession Number(s): [id number] cc: Dank Alvarez M.D.; Dionne Bridges M.D. [place] [address] Patient Name: TAWANA MCMAHON MRN: [id number] date: 1990 Sex: F Assigned Patient Location: US Current Patient Location: Accession/Order Number: [id number] Exam Date: 04/17/2024 11:29 Report Date: 04/18/2024 [...] Signed By: 04/18/24 1118 DD/ 1115 TD/TT: Assistant Professor Of Geography: Procedure Note Radiology, Radiologist, - 04/19/2024 [place] [address] Ultrasound Report Signed Patient: TAWANA MCMAHON RMR#: [id number] : 1990Acct:[id number] Age/Sex: 34 / FADM Date: 04/17/24 Loc: US Attending Dr: Dionne Bridges M.D. Ordering Physician: Dionne Bridges M.D. Date of Service: 04/17/24 Procedure(s): US duplex IVC Accession Number(s): [id number] cc: Dank Alvarez M.D.; Dionne Bridges M.D. [place] [address] Patient Name: TAWANA MCMAHON MRN: [id number] date: 1990 Sex: F Assigned Patient Location: US Current Patient Location: Accession/Order Number: [id number] Exam Date: 04/17/2024 11:29 Report Date: 04/18/2024 [...] Duplex Doppler demonstrates normal waveform and flow, [id number] cm/s within mid IVC. Left iliac stent [...] M.D. Signed By:04/18/24 1118 DD/ 1115 TD/TT: Assistant Professor Of Geography: us [facility] Cyrus NAVARRO IM US PROCEDURES Final Resu lt documented in this encounter Visit Diagnoses Not on filedocumented in this encounter Care Teams Stranding Machine Operator Relationship Specialty Start Date End Date Dank Alvarez MD PCP - General Family Medicine 03/24/23 Deborah Perez, [facility] [address] [facility] [address] [facility] [address] [place] [address] [facility] 01/08/25 05/07/25 documented as of this encounter
--- OUTSIDE RECORDS SUMMARY | 2025-07-11 08:55 | XMS_ITS | Encounter Summary ---
Author Organization [employer] Sys tem Address [facility] [place] [id number] [address] [place] [address] Care Team Providers Care Straight Cutter Name Role Phone Dank Alvarez MD Primary Care Provider [phone] Encounter Details Date Type Department Care Team (Late st Contact Info) Description 02/14/2024 Orders Only [facility] [address] [place] [address] Josiane Arroyo LPN Social History Tobacco Use Types Packs/Day Years Used Date Smoking Tobacco: Former Cigarettes Smokeless Tobacco: Never Alcohol Use Standard Drinks/Week Comments Not Currently 0 (1 standard drink = 0.6 oz pur e alcohol) [facility] Utilities Answer Date Recorded In the [...] 05/27/2026 8:30 AM EDT Appointment [facility] - Vascular [address] [place] [address] Jani Bridges MD [address] [address] 06/06/2026 8:30 AM EDT Office Visit [facility] [address] [place] [address] Jani Bridges MD [address] [address] documented as of this encounter Visit Diagnoses Not on filedocumented in this encounter Additional Health Concerns Assessment Noted Time PHQ-9 Depression Total Score: 0 01/23/20 24 7:47 PM EDT documented as of this encounter Care Teams Straight Cutter Relationship Specialty Start Date End Date Dank Alvarez MD PCP - General 02/09/24 documented as of this encounter
--- OUTSIDE RECORDS SUMMARY | 2025-07-11 08:55 | XMS_ITS | Encounter Summary ---
Author Organization [employer] Sys tem Address [facility] [id number] [address] [place] [address] Care Team Providers Care Die Designer Apprentice Name Role Phone Dank Alvarez MD Primary Care Provider [phone] Encounter Details Date Type Department Care Team (Late st Contact Info) Description 01/24/2024 Orders Only [facility] [address] [place] [phone] Transcribe, Orders Support User Pain (Primary Dx) Social History Tobacco Use Types Packs/Day Years Used Date Smoking Tobacco: Former Cigarettes Smokeless Tobacco: Never Alcohol Use Standard Drinks/Week Comments Not Currently 0 (1 standard drink = 0.6 oz pur e alcohol) [facility] Utilities Answer Date Recorded In the past [...] Info) Description 05/27/2026 8:30 AM EDT Appointment [facility] - Vascular [address] [place] [address] Jani Bridges MD [address], [address] [address] 06/06/2026 8:30 AM EDT Office Visit [facility] [address] [place] [address] Jani Bridges MD [address], [facility] [address] [place] [address] documented as of this encounter Results * Vas venous duplex lwr single left (01/23/2024 10:20 AM EDT) us Scanning Provider External CV VASCULAR ORDERABLE S Final Result [facility] documented in this encounter Visit Diagnoses Diagnosis Pain- Primary Generalized pain documented in this encounter Additional Health Concerns Assessment Noted Time PHQ-9 Depression Total Score: 0 01/23/20 24 7:47 PM EDT documented as of this encounter Care Teams Die Designer Apprentice Relationship Specialty Start Date End Date Dank Alvarez MD PCP - General 02/09/24 documented as of this encounter
--- OUTSIDE RECORDS SUMMARY | 2025-07-11 08:55 | XMS_ITS | Encounter Summary ---
Author Organization [facility] Address [address] [place] [address] Care Team Providers Care Communications Strategist Name Role Phone Dank Alvarez MD Primary Care Provider [phone] Deborah Perez [facility] Unavailable [phone] Encounter Details Date Type Department Care Team (Late Contact Info) Description 08/28/2024 Abstract [facility] [address] [place] [phone] Andre Treviño DO [address], [place] [address] Social History Tobacco Use Types Packs/Day Years [...] Upcoming Encounters Date Type Department Care Team ([facility] Contact Info) Description 08/06/2025 10:00 AM EDT Office Visit [facility] [address] [place] [phone] nAdre Treviño DO [address], [facility]11 documented as of this encounter Visit Diagnoses Not on filedocumented in this encounter Care Teams Communications Strategist Relationship Specialty Start Date End Date Dank Alvarez MD PCP - General Family Medicine 03/24/23 Deborah Perez, [facility] [address] [place] [address] [place] [address] Blueprint Clerk Behavioral Health 01/08/25 05/07/25 documented as of this encounter
--- OUTSIDE RECORDS SUMMARY | 2025-07-11 08:55 | XMS_ITS | Encounter Summary ---
Author Organization [employer] Sys tem Address [id number] [address] [place] [address] Care Team Providers Care Pick Up Truck Driver Name Role Phone Dank Alvarez MD Primary Care Provider [phone] Encounter Details Date Type Department Care Team (Late st Contact Info) Description 05/10/2025 Telephone [facility] [address] [place] [address] Jani Bridges MD [address], [facility] [address] [place] [address] Social History Tobacco Use Types Packs/Day Years Used Date Smoking Tobacco: Former Cigarettes Smokeless Tobacco: Never Alcohol Use Standard Drinks/Week Comments Not Currently 0 (1 standard drink = 0.6 oz pur e alcohol) [facility] Utilities Answer Date Recorded In the past 12 months has e [employer], gas, oil, or water [employer] threatened to shut off services in your [...] Info) Description 05/27/2026 8:30 AM EDT Appointment [facility] - Vascular [address] [place] [address] Jani Bridges MD [address], [address] [address] 06/06/2026 8:30 AM EDT Office Visit [facility] [place] [address] [place] [address] Jani Bridges MD [address], [address] [address] documented as of this encounter Visit Diagnoses Not on filedocumented in this encounter Additional Health Concerns Assessment Noted Time PHQ-9 Depression Total Score: 0 01/23/20 7:47 PM EDT documented as of this encounter Care Teams Pick Up Truck Driver Relationship Specialty Start Date End Date Dank Alvarez MD PCP - General 02/09/24 documented as of this encounter
--- OUTSIDE RECORDS SUMMARY | 2025-07-11 08:55 | XMS_ITS | Encounter Summary ---
Author Organization [employer] Sys [employer] Address [id number] [address] 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 Acute deep vein thrombosis (DVT) of iliac vein of left lower extremity ([facility]) Procedures Vas IVC/iliac duplex complete Jani Bridges MD [address] [place] [address] Phone: tel: fax: Referral ID Status Reason Start Date Expiration Date V isits Requested Visits Authorized [id number] Authorized 05/07/2025 05/07/2026 1 1 Encounter Details Date Type Department Care Team (Late st Contact Info) Description 05/07/2025 Orders Only [facility] [address] [place] [address] Nabila Strong CMA 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); 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; Acute deep vein thrombosis (DVT) of iliac vein of left lower extremity ([facility]) Social History Tobacco Use Types Packs/Day Years Used Date Smoking Tobacco: Former Cigarettes Smokeless Tobacco: Never Alcohol Use Standard Drinks/Week Comments Not Currently 0 (1 standard drink = 0.6 oz pur e alcohol) [facility] Utilities Answer Date Recorded In the past [...] Hospital - Vascular [address] [place] [address] Jani Bridges MD [address], [address] [address] 06/06/2026 8:30 AM EDT Office Visit [facility] [place] [place] [address] Jani Bridges MD [address], [address] [address] Scheduled Orders Name Type Priority Associated Diagnoses [...] documented as of this encounter Care Teams Criminal Records Technician Relationship Specialty Start Date End Date Dank Alvarez MD PCP - General 02/09/24 documented as of this encounter
--- OUTSIDE RECORDS SUMMARY | 2025-07-11 08:55 | XMS_ITS | Encounter Summary ---
Author Organization [employer] Sys tem Address [facility] [id number] [address] [place] [address] Care Team Providers Care Nude Model Name Role Phone Dank Alvarez MD Primary Care Provider [phone] Encounter Details Date Type Department Care Team (Late st Contact Info) Description 05/15/2024 Orders Only [facility] [address] [place] [address] Jani Bridges MD [address], [facility] [address] [place] [address] Social History Tobacco Use Types Packs/Day Years Used Date Smoking Tobacco: Former Cigarettes Smokeless Tobacco: Never Alcohol Use Standard Drinks/Week Comments Not Currently 0 (1 standard drink = 0.6 oz pur e alcohol) [facility] Utilities Answer Date Recorded In the past 12 months has e [employer], gas, oil, or water [employer] threatened to shut off services in your [...] Info) Description 05/27/2026 8:30 AM EDT Appointment [facility] - Vascular [address] [place] [address] Jani Bridges MD [address], [address] [place] [address] 06/06/2026 8:30 AM EDT Office Visit [facility] [address] [place] [address] Jani Bridges MD [address], [address] [place] [address] documented as of this encounter Procedures Procedure [...] documented as of this encounter Care Teams Nude Model Relationship Specialty Start Date End Date Dank Alvarez MD PCP - General 02/09/24 documented as of this encounter
--- OUTSIDE RECORDS SUMMARY | 2025-07-11 08:55 | XMS_ITS | Clinical Summary ---
Author Organization [facility] Address [address] [place] [address] Care Team Providers Care Retail Sales Advisor Name Role Phone Dank Alvarez MD Primary Care Provider [phone] Allergies No known active allergies Medications Probiotic [...] Dionne Bridges MD 04/25/20[place] [phone] Cyndi Norman MA 04/17/2025 8:00 AM [place] [address] Andre Treviño DO Yeast infection 04/16/2025 Travel 04/11/2025 [place] [address] Patti Tarango LPN from Last 3 Months Family History Relation [...] 10:00 AM ED[place] [address] Andre Treviño DO [address] [place] [address] Health Maintenance Due Date Last Done Comments Influenza Vaccine (#1) 2025 HPV/Cotest Discontinued 08/24/2023 Cervical Cancer Screening Discontinued Pap Smear Discontinued 07/31/2024, 08/24/2023 Procedures Procedure Name Priority Date/Time Associated Diagnosis Comments VASC US IVC ILIAC DUPLEX COMPLETE 05/23/2025 10:38 AM EDT PAP SMEAR Routine 07/31/2024 12:00 AM EDT [...] AM EDT Narrative 05/23/2025 10:41 AM EDT [address] [address] Ultrasound Report Signed Patient: TAWANA MCMAHON MR#: [id number] : 1990 Acct:[id number] Age/Sex: 35 / F ADM Date: 05/23/25 Loc: US Attending Dr: Dionne Bridges M.D. Ordering Physician: Dionne Bridges M.D. Date of Service: 05/23/25 Procedure(s): US duplex IVC Accession Number(s): [id number] cc: Dank Alvarez M.D.; Dionne Bridges M.D. [address] [address] Patient Name: TAWANA MCMAHON MRN: [id number] date: 1990 Sex: F Assigned Patient Location: US Current Patient Location: US Accession/Order Number: [id number] Exam Date: 05/23/2025 10:35 Report Date: 05/23/2025 [...] Lay M.D. 05/23/2025 10:38 AM Dictation Location: [place] [address] Electronically authenticated by: [id number] Y Date: 05/23/2025 10:38 Dictated By: Gaby Lay M.D. Signed By: 05/23/25 1041 DD/ 1038 TD/TT: Waffle Machine Operator: Procedure Note Radiology, Radiologist, MD - 05/23/2025 [place] [address] Ultrasound Report Signed Patient: TAWANA MCMAHON RMR#: [id number] : 1990Acct:[id number] Age/Sex: 35 / FADM Date: 05/23/25 Loc: US Attending Dr: Dionne Bridges M.D. Ordering Physician: Dionne Bridges M.D. Date of Service: 05/23/25 Procedure(s): US duplex IVC Accession Number(s): [id number] cc: Dank Alvarez M.D.; Dionne Bridges M.D. The [place] [id number] Patient Name: TAWANA MCMAHON MRN: [id number] date: 1990 Sex: F Assigned Patient Location: US Current Patient Location: US Accession/Order Number: [id number] Exam Date: 05/23/2025 10:35 Report Date: 05/23/2025 [...] Lay M.D. 05/23/2025 10:38 AM Dictation Location: [place] [address] Electronically authenticated by: [id number] Y Date: 0:38 Dictated By: Gaby Lay M.D. Signed By:05/23/25 1041 DD/ 1038 TD/TT: Waffle Machine Operator: Dionne Bridges MD IMG US PROCEDURES Final Resu lt * Pap Smear (07/31/2024 12:00 AM EDT) Swab Cervical swab / Unknown [place] [facility] LAB CYTOLOGY ORDERABLES Final Result EXTERNAL LAB * THINPREP PAP AND HPV MRNA E6/E7 W/RFL HPV 16,18/45 (08/24/2023 3:25 PM EDT) Andre Treviño DO LAB BLOOD ORDERABLES Final Resul t EXTERNAL LAB from Last 3 Months or Most Recently Relevant to Health Maintenance Insurance [facility] Care Teams Retail Sales Advisor Relationship Specialty Start Date End Date Dank Alvarez MD PCP - General Family Medicine 03/24/23
--- OUTSIDE RECORDS SUMMARY | 2025-07-11 08:55 | XMS_ITS | Encounter Summary ---
Author Organization [email or web address] Sys [employer] Address [facility] [id number] [address] 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 ([facility]) Social History Tobacco Use Types Packs/Day Years Used Date Smoking Tobacco: Former Cigarettes Smokeless Tobacco: Never Alcohol Use Standard Drinks/Week Comments Not Currently 0 (1 standard drink = 0.6 oz pur e alcohol) [facility] Utilities Answer Date Recorded In the past 12 months has th [employer], gas, oil, or water company threatened [...] 05/27/2026 8:30 AM EDT Appointment [facility] - Vascular [address] [place] [address] Jani Bridges MD [address], [address] [address] 06/06/2026 8:30 AM EDT Office Visit [facility] [address] [place] [address] Jani Bridges MD [address], [address] [place] [address] documented as of this encounter Visit Diagnoses 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
--- OUTSIDE RECORDS SUMMARY | 2025-07-11 08:55 | XMS_ITS | Encounter Summary ---
Author Organization [facility] Address [address] [place] [address] Care Team Providers Care Sales Support Administrator Name Role Phone Dank Alvarez MD Primary Care Provider [phone] Deborah Perez [facility] Unavailable [phone] Encounter Details Date Type Department Care Team (Late Contact Info) Description 08/09/2024 Abstract MERLE MONTERO [address] [place] [address] Andre Treviño DO [address], [place] [address] Social History Tobacco Use Types Packs/Day Years [...] 10:00 AM EDT Office Visit MERLE MONTERO [facility] [place] [id number] Andre Treviño DO [address], [facility]11 documented as of this encounter Visit Diagnoses Not on filedocumented in this encounter Care Teams Sales Support Administrator Relationship Specialty Start Date End Date Dank Alvarez MD PCP - General Family Medicine 03/24/23 Deborah Perez, [facility] [address] [place] [address] Software Release Engineer Behavioral Health 01/08/25 05/07/25 documented as of this encounter
--- OUTSIDE RECORDS SUMMARY | 2025-07-11 08:55 | XMS_ITS | Encounter Summary ---
Author Organization [facility] Address [address] [place] [address] Care Team Providers Care Color Depositing Machine Tender Name Role Phone Dank Alvarez MD Primary Care Provider [phone] Deborah Perez [facility] Unavailable [phone] Encounter Details Date Type Department Care Team (Late Contact Info) Description 04/11/2025 Orders Only MERLE MONTERO [address] [employer] [place] [place] [address] Patti Tarango LPN [address] [facility] Elle [facility] Social History Tobacco Use Types Packs/Day Years [...] AM EDT Office Visit NOM[facility]ia MONTERO [address] [facility] [place] [address] Andre Treviño DO [address] [place] [id number] documented as of this encounter Procedures Procedure [...] on filedocumented in this encounter Care Teams Color Depositing Machine Tender Relationship Specialty Start Date End Date Dank Alvarez MD PCP - General Family Medicine 03/24/23 Deborah Perez, [facility] [address] [place] [address] Bootmaker Hand Behavioral Health 01/08/25 05/07/25 documented as of this encounter
--- OUTSIDE RECORDS SUMMARY | 2025-07-11 08:55 | XMS_ITS | Encounter Summary ---
Author Organization [employer] Address [id number] [address] [place] [address] Care Team Providers Care Power Regulator Name Role Phone Dank Alvarez MD Primary Care Provider [phone] Reason for Referral * Specialty Diagnoses / Procedures Referred By Contkahlil t Referred To Contact Vascular Surgery [facility] [address] [place] [address] Phone: tel: fax: Referral ID Status Reason Start Date Expiration Date Visits Re quested Visits Authorized Encounter Details Date Type Department Care Team ([facility] st Contact Info) Description 08/28/2024 Orders Only [facility] [address] [place] [address] Dank Alvarez MD [address] [facility], [place] [address] Social History Tobacco Use Types Packs/Day Years Used Date Smoking Tobacco: Former Cigarettes Smokeless Tobacco: Never Alcohol Use Standard Drinks/Week Comments Not Currently 0 (1 standard drink = 0.6 oz pur e alcohol) [facility] Utilities Answer Date Recorded In the past [...] Info) Description 05/27/2026 8:30 AM EDT Appointment [facility] - Vascular [address] [place] [address] Jani Bridges MD [address], [address] [address] 06/06/2026 8:30 AM EDT Office Visit [facility] [address] [place] [address] Jani Bridges MD [address], [address] [address] documented as of this encounter Procedures Procedure [...] documented as of this encounter Care Teams Power Regulator Relationship Specialty Start Date End Date Dank Alvarez MD PCP - General 02/09/24 documented as of this encounter
--- OUTSIDE RECORDS SUMMARY | 2025-07-11 08:55 | XMS_ITS | Encounter Summary ---
Author Organization [employer] Address [id number] [address] [place] [address] Care Team Providers Care Marine Steamfitter Name Role Phone Dank Alvarez MD Primary Care Provider [phone] Encounter Details Date Type Department Care Team (Late st Contact Info) Description 05/11/2024 Orders Only [facility] [address] [place] [address] Jani Bridges MD [address], [address] [address] Social History Tobacco Use Types Packs/Day Years Used Date Smoking Tobacco: Former Cigarettes Smokeless Tobacco: Never Alcohol Use Standard Drinks/Week Comments Not Currently 0 (1 standard drink = 0.6 oz pur e alcohol) [facility] Utilities Answer Date Recorded In the past 12 months has e [employer], gas, oil, or water [employer] threatened to shut off services in your [...] Info) Description 05/27/2026 8:30 AM EDT Appointment [facility] - Vascular [address] [place] [address] Jani Bridges MD [address], [address] [place] [address] 06/06/2026 8:30 AM EDT Office Visit [facility] [address] [place] [address] Jani Bridges MD [address], [address] [place] [address] documented as of this encounter Procedures Procedure [...] as of this encounter Care Teams Marine Steamfitter Relationship Specialty Start Date End Date Dank Alvarez MD PCP - General 02/09/24 documented as of this encounter
--- OUTSIDE RECORDS SUMMARY | 2025-07-11 08:55 | XMS_ITS | Encounter Summary ---
Author Organization [facility] Address [address] [place] [address] Care Team Providers Care Precinct I Police Sergeant Name Role Phone Dank Alvarez MD Primary Care Provider [phone] Deborah [facility] Un[facility] [phone] Encounter Details Date Type Department Care Team (Late Contact Info) Description 05/08/2024 Clinisync Result Encounter [facility] External Department Unsolicited Dionne Bridges MD [address], [address] [address] Social History Tobacco Use Types Packs/Day Years [...] Office Visit [facility] [address] [place] [address] Andre Treviño DO [address] [place] [address] documented as of this encounter Procedures Procedure Name Priority Date/Time Associated Diagnosis Comments CT ANGIOGRAM UPPER EXTREMITY LEFT 05/08/2024 8:18 AM EDT documented in this encounter Results * CT angiogram upper extremity left (05/08/2024 8:18 AM EDT) Anatomical Region Laterality Modality Upper Extremities Left Computed Tomog bear 05/08/2024 8:18 AM EDT Narrative 05/08/2024 8:21 [place] [address] CT Scan Report Signed Patient: TAWANA MCMAHON MR#: [id number] : 1990 Acct:[id number] Age/Sex: 34 / F ADM Date: 05/05/24 Loc: CT Attending Dr: Dionne Bridges M.D. Ordering Physician: Dionne Bridges M.D. Date of Service: 05/05/24 Procedure(s): CT angio UE LT Accession Number(s): [id number] cc: Dank Alvarez M.D. [place] [address] Patient Name: TAWANA MCMAHON MRN: [id number] date: 1990 Sex: F Assigned Patient Location: CT Current Patient Location: Accession/Order Number: [id number] Exam Date: 05/05/2024 08:40 Report Date: 05/08/2024 [...] M.D. Signed By: 05/08/24820 DD/ 7 TD/TT: Property Worker: Procedure Note Radiology, Radiologist, - 05/09/2024 [place] [address] CT Scan Report Signed Patient: TAWANA MCMAHON RMR#: [id number] : 1990Acct:[id number] Age/Sex: 34 / FADM Date: 05/05/24 Loc: CT Attending Dr: Dionne Bridges M.D. Ordering Physician: Dionne Bridges M.D. Date of Service: 05/05/24 Procedure(s): CT angio UE LT Accession Number(s): [id number] cc: Dank Alvarez M.D. [place] [address] Patient Name: TAWANA MCMAHON MRN: [id number] date: 1990 Sex: F Assigned Patient Location: CT Current Patient Location: Accession/Order Number: [id number] Exam Date: 05/05/2024 08:40 Report Date: 05/08/2024 [...] Mccray M.D. Signed By:05/08/24820 DD/ 7 TD/TT: Property Worker: us Dionne Bridges MD IMG CT PROCEDURES Final Resu lt documented in this encounter Visit Diagnoses Not on filedocumented in this encounter Care Teams Precinct I Police Sergeant Relationship Specialty Start Date End Date Dank Alvarez MD PCP - General Family Medicine 03/24/23 Deborah Perez, [facility] [address] [facility] [address] [place] [address] Women Designer Behavioral Health 01/08/25 05/07/25 documented as of this encounter
--- OUTSIDE RECORDS SUMMARY | 2025-07-11 08:55 | XMS_ITS | Patient Health Record ---
Author Organization [facility] in [place] Address [address] [place] [address] Care Team Providers Care Front Desk Manager Name Role Phone Rui Alvarez Primary Care Provider [phone] [email or web address] chandler Unavailable [phone] Yanni Durand Unavailable [phone] Allergies No Known Allergies Results Component Value Reference Range Notes IGP,Aptima HPV,Age Gdln Reviewed date:08/04/2024 01:03:13 PM Interpretation: Performing Lab: Notes/Report: SPATULA-ALONE VAGINA [facility] , Age Gdln ACOG Testing Note . 01 =G [facility] [place] TESTS RESULT FLAG UNITS REF RANGE LAB <-Panic Low,>-Panic High,A-Abnormal,AA-Crit ical Abnormal FLAG LEGEND: [address] [place] [address] Clinician Provided Cytology Information Sandy Lemon MD, No. of containers..01 ThinPrep Vial Performed at: Source.............Vagi na Age Algo ACOG Eneida... 30-65 L-Low Normal,H-High Normal,LL-Alert Low,HH-Alert High IGP, Aptima HPV, rfx 16/18,45 Note . Performed at: [facility] [place] Cyto Histo HPV Genotype Reflex Note 02 Test Methodology: Note [address] [facility] [place] [address] Performed by: Sola Aviles, Digital Strategist (ASC) Specimen adequacy: 12 18 WB [facility] [place] Note: Note 03 [address] [place] [address] the use of an image guided system. Criteria not met, HPV Genotype not performed. should not be used as the sole means of detecting cervical Sandy S Ion NAVARRO, detection of premalignant and malignant conditions of the . 02 L-Low Normal,H-High Normal,LL-Alert Low,HH-Alert High TESTS RESULT FLAG UNITS REF RANGE LAB The Pap smear is a screening test designed to aid in the FLAG LEGEND: NEGATIVE FOR INTRAEPITHELIAL LESION OR MALIGNANCY. cancer. Both false-positive and false-negative reports do occur. DIAGNOSIS: 02 Holden Croft MD, uterine cervix. It is not a diagnostic procedure and Satisfactory for evaluation. <-Panic Low,>-Panic High,A-Abnormal,AA-Crit ical Abnormal This liquid based ThinPrep(R) pap test was screened with HPV Aptima Negative Negative Plant Etiologist: Holden Croft MD, Phone: [phone] Plant Etiologist: Sandy Lemon MD, Phone: [phone] Performed at: [facility] Cyto Histo [address] [place], [place] [id number] This nucleic acid amplification test detects fourteen high- without differentiation. [address] [place] [address] [place], [place] [id number] risk HPV types (16,18,31,33,35,39,45,5 1,52,56,58,59,66,68) Performed at: [facility] Performing Lab: see note [facility] Antistreptolysin O Ab Reviewed date:09/04/2024 08:37:19 PM Interpretation: Performing Lab: Notes/Report: [facility] , Antistreptolysin O Ab 408.9 0.0-200.0 IU/mL Plant Etiologist: Ayo Pardo PhD, Phone: [phone] Performed at: [address] [id number] Performing Lab: see note [facility] LB Anti-dsDNA Antibodies Reviewed date:09/04/2024 08:37:19 PM Interpretation: Performing Lab: Notes/Report: [facility] , Anti-dsDNA Antibodies 3 0-9 IU/mL Positive >9 Equivocal 5 - 9 Plant Etiologist: Ayo Pardo PhD, Phone: [phone] Performed at: [address] [id number] Negative <5 Performing Lab: see note [facility] LB AGUSTIN by IFA Reviewed date:10/11/2024 06:04:01 PM Interpretation: Performing Lab: Notes/Report: [facility] , Antinuclear Antibodies, IFA Negative . [address] [place] [phone] Negative <1:80 Patterns (ICAP). For more information about Hep-2 cell patterns use Performed at: [facility] ANApatter.org, the official website for the Positive >1:80 International Consensus on Antinuclear Antibody (AGUSTIN) ICAP nomenclature: AC-0 Plant Etiologist: Ayo Pardo PhD, Phone: [phone] Borderline 1:80 Performing Lab: see note - [facility] LB RHEUMATOID FACTOR Reviewed date:10/11/2024 06:04:01 PM Interpretation: Performing Lab: Notes/Report: [facility] , Rheumatoid Factor (RF) <10.0 <14.0 IU/mL Performing Lab: see note - [facility] LB Erythrocyte Sedimentation Ra te Reviewed date:10/10/2024 05:51:18 PM Interpretation: Performing Lab: Notes/Report: [facility] , Erythrocyte Sedimentation Rate 4 <=20 mm/hr Performing Lab: see note [facility] LB Antistreptolysin O Ab Reviewed date:10/11/2024 06:04:01 PM Interpretation: Performing Lab: Notes/Report: [facility] , Antistreptolysin O Ab 433.4 0.0-200.0 IU/mL Plant Etiologist: Ayo Pardo PhD, Phone: [phone] Performed at: [facility] [employer] [id number] Performing Lab: see note [facility] US renal bladder Reviewed date:10/22/2024 06:28:17 PM Interpretation: Performing Lab: Notes/Report: Source Facility: [address] [address] [place] [address] Ultrasound Report Signed Patient: KIMBERLY SILVERMAN MR#: [id number] : 1990 Acct:[id number] Age/Sex: 34 / F ADM Date: 10/20/24 Loc: US Attending Dr: Usman Alvarez M.D. Ordering Physician: Usman Alvarez M.D. Date of Service: 10/20/24 Procedure(s): US renal bladder Accession Number(s): [id number] cc: Usman Alvarez M.D. [place] [address] Patient Name: KIMBERLY SILVERMAN MRN: [id number] date: 1990 Sex: F Assigned Patient Location: Current Patient Location: LAB Accession/Order Number: [id number] Exam Date: 10/20/2024 08:30 Report Date: 10/20/2024 [...] Signed By: 10/20/24 1341 DD/ 1338 TD/TT: Safety Sitter: The [address] [address] Ultrasound Report Signed Patient: TYREE SILVERMAN MR#: [id number] : 1990 Acct:[id number] Age/Sex: 34 / F ADM Date: 10/20/24 Loc: US Attending Dr: Cole Alvarez M.D. Ordering Physician: Usman Alvarez M.D. Date of Service: 10/20/24 Procedure(s): US stephanie al bladder Accession Number(s): [id number] cc: Usman Alvarez M.D. The [address] [address] Patient Name: IKMBERLY SILVERMAN MRN: [id number] date: 1990 Sex: F Assigned Patient Location: US Current Patient Location: LAB Accession/Order Numb er: [id number] Exam Date: 08:30 Report Date: 10/20/2024 13:38 [...] Juan Francisco Suarez M.D. Signed By: 10/20/24 1349 DD/ 1338 TD/TT: Safety Sitter: CA echo doppler complete Reviewed date:10/22/2024 06:28:17 PM Interpretation: Performing Lab: Notes/Report: Source Facility: [place] [address] [place] [address] Cardiology Report Signed Patient: KIMBERLY SILVERMAN MR#: [id number] : 1990 Acct:[id number] Age/Sex: 34 / F ADM Date: 10/20/24 Loc: US Attending Dr: Usman Alvarez M.D. Ordering Physician: Usman Alvarez M.D. Date of Service: 10/20/24 Procedure(s): CA echo doppler complete Accession Number(s): [id number] cc: Usman Alvarez M.D. Patient Name: KIMBERLY SILVERMAN MR#: [id number] : 1990 Exam Date: 10/20/2024 Ordering Doctor: [...] Santos M.D. Signed By: 10/20/24 173 DD/ 1729 TD/TT: Safety Sitter: [place] [address] Cardiology Report Signed Patient: TYREE SILVERMAN MR#: [id number] : 1990 Acct:[id number] Age/Sex: 34 / F ADM Date: 10/20/24 Loc: US Attending Dr: Cole Alvarez M.D. Ordering Physician: Usamn Alvarez M.D. Date of Service: 10/20/24 Procedure(s): CA ech o doppler complete Accession Number(s): [id number] cc: Usman Alvarez M.D. Patient Name: KIMBERLY SILVERMAN MR#: [id number] : 1990 Exam Date: 10/20/2024 Ordering Doctor: [...] Santos M.D. Signed By: 10/20/24 1730 DD/ 172 TD/TT: Safety Sitter: URIC ACID SERUM Reviewed date:10/10/2024 05:51:18 PM Interpretation: Performing Lab: Notes/Report: [facility] , Uric Acid 3.6 2.6-6.0 mg/dL Performing Lab: see note ML - [facility] LB PROF 14(COMP METB) Reviewed date:10/10/2024 05:51:18 PM Interpretation: Performing Lab: Notes/Report: [facility] , Sodium 140 136-145 mmol/L Potassium [...] Performing Lab: see note ML - [facility] LB CRP Reviewed date:10/10/2024 05:51:18 PM Interpretation: Performing Lab: Notes/Report: [facility] , C Reactive Protein <0.50 <=0.50 mg/dL Performing Lab: see note ML - [facility] LB CT HIP LT WO CON Reviewed date:08/04/2024 04:10:35 PM Interpretation: Performing Lab: Notes/Report: Source Facility: [facility] [place] [address] [place] [address] CT Scan Report Signed Patient: KIMBERLY SILVERMAN MR#: [id number] : 1990 Acct:[id number] Age/Sex: 34 / F ADM Date: 08/04/24 Loc: CT Attending Dr: Usman Alvarez M.D. Ordering Physician: Usman Alvarez M.D. Date of Service: 08/04/24 Procedure(s): CT hip LT wo con Accession Number(s): [id number] cc: Usman Alvarez M.D. [address] [address] Patient Name: KIMBERLY SILVERMAN MRN: [id number] date: 1990 Sex: F Assigned Patient Location: CT Current Patient Location: LAB Accession/Order Number: [id number] Exam Date: 08/04/2024 08:35 Report Date: 08/04/2024 [...] Mccray M.D. Signed By: 08/04/24 1445 DD/ 1443 TD/TT: Safety Sitter: [place] [address] CT Scan Report Signed Patient: TYREE SILVERMAN MR#: [id number] : 1990 Acct:[id number] Age/Sex: 34 / F ADM Date: 08/04/24 Loc: CT Attending Dr: Cole Alvarez M.D. Ordering Physician: Usman Alvarez M.D. Date of Service: 08/04/24 Procedure(s): CT hip LT wo con Accession Number(s): [id number] cc: Usman Alvarez M.D. [address] [address] Patient Name: KIMBERLY SILVERMAN MRN: [id number] date: 1990 Sex: F Assigned Patient Location: CT Current Patient Location: LAB Accession/Order Numb er: [id number] Exam Date: 08/04/2024 08:35 Report Date: 08/04/2024 [...] Dictated By: Jordan Mccray M.D. Signed By: 08/04/24 1445 DD/ 1443 TD/TT: Safety Sitter: Antistreptolysin O Ab Reviewed date:07/31/2024 09:11:06 PM Interpretation: Performing Lab: Notes/Report: [facility] , Antistreptolysin O Ab 437.1 0.0-200.0 IU/mL [address] [place], [place] [id number] Plant Etiologist: Ayo Pardo PhD, Phone: [phone] Performed at: - [facility] [place] Performing Lab: see note - [facility] LB Erythrocyte Sedimentation Ra te Reviewed date:07/26/2024 09:52:38 PM Interpretation: Performing Lab: Notes/Report: [facility] , Erythrocyte Sedimentation Rate 6 <=20 mm/hr Performing Lab: see note - [facility] LB URIC ACID SERUM Reviewed date:07/26/2024 09:52:37 PM Interpretation: Performing Lab: Notes/Report: [facility] , Uric Acid 3.4 2.6-6.0 mg/dL Performing Lab: see note - [facility] LB RHEUMATOID FACTOR Reviewed date:07/31/2024 09:11:06 PM Interpretation: Performing Lab: Notes/Report: [facility] , Rheumatoid Factor (RF) <10.0 <14.0 IU/mL Performing Lab: see note - [facility] LB CRP Reviewed date:07/26/2024 09:52:37 PM Interpretation: Performing Lab: Notes/Report: [facility] , C Reactive Protein <0.50 <=0.50 mg/dL Performing Lab: see note - [facility] LB AGUSTIN by IFA Reviewed date:07/31/2024 09:11:06 PM Interpretation: Performing Lab: Notes/Report: [facility] , Antinuclear Antibodies, IFA Negative . [address] [id number] For more information about Hep-2 cell patterns use ANApaPostachio.MarketLive, the official website for the Positive >1:80 International Consensus on Antinuclear Antibody (AGUSTIN) Performed at: [facility] Patterns (ICAP). Borderline 1:80 ICAP nomenclature: AC-0 Plant Etiologist: Ayo Pardo PhD, Phone: [phone] Negative <1:80 Performing Lab: see note - [facility] LB US arterial duplex LE RT Reviewed date:07/23/2024 08:51:20 PM Interpretation: Performing Lab: Notes/Report: Source Facility: [place] [address] Ultrasound Report Signed Patient: KIMBERLY SILVERMAN MR#: [id number] : 1990 Acct:[id number] Age/Sex: 34 / F ADM Date: 07/21/24 Loc: US Attending Dr: Usman Alvarez M.D. Ordering Physician: Usman Alvarez M.D. Date of Service: 07/21/24 Procedure(s): US arterial duplex LE BI Accession Number(s): [id number] cc: Usman Alvarez M.D. [place] [address] Patient Name: KIMBERLY SILVERMAN MRN: [id number] date: 1990 Sex: F Assigned Patient Location: US Current Patient Location: Accession/Order Number: [id number] Exam Date: 07/21/2024 07:30 Report Date: 07/22/2024 [...] M.D. Signed By: 07/22/24617 DD/ 5 TD/TT: Safety Sitter: [place] [address] Ultrasound Report Signed Patient: TYREE SILVERMAN MR#: [id number] : 1990 Acct:[id number] Age/Sex: 34 / F ADM Date: 07/21/24 Loc: US Attending Dr: Cole Alvarez M.D. Ordering Physician: Usman Alvarez M.D. Date of Service: 07/21/24 Procedure(s): US arterial duplex LE BI Accession Number(s): [id number] cc: Usman Alvarez M.D. [place] [address] Patient Name: KIMBERLY SILVERMAN MRN: [id number] date: 1990 Sex: F Assigned Patient Location: US Current Patient Location: Accession/Order Numb er: [id number] Exam Date: 07/21/2024 07:30 Report Date: 07/22/2024 [...] M.D. Signed By: 07/22/24617 DD/ 5 TD/TT: Safety Sitter: XR hip LT 2V w/ pelvis Reviewed date:07/23/2024 08:51:20 PM Interpretation: Performing Lab: Notes/Report: Source Facility: [place] [address] XRay Report Signed Patient: KIMBERLY SILVERMAN MR#: [id number] : 1990 Acct:[id number] Age/Sex: 34 / F ADM Date: 07/21/24 Loc: US Attending Dr: Usman Alvarez M.D. Ordering Physician: Usman Alvarez M.D. Date of Service: 07/21/24 Procedure(s): XR hip LT 2V w/ pelvis Accession Number(s): [id number] cc: Usman Alvarez M.D. [place] [address] Patient Name: KIMBERLY SILVERMAN MRN: [id number] date: 1990 Sex: F Assigned Patient Location: Current Patient Location: Accession/Order Number: [id number] Exam Date: 07/21/2024 08:05 Report Date: 07/22/2024 [...] M.D. Signed By: 07/22/2437 DD/ 4 TD/TT: Safety Sitter: The [address] [address] XRay Report Signed Patient: TYREE SILVERMAN MR#: [id number] : 1990 Acct:[id number] Age/Sex: 34 / F ADM Date: 07/21/24 Loc: US Attending Dr: Cole Alvarez M.D. Ordering Physician: Usman Alvarez M.D. Date of Service: 07/21/24 Procedure(s): XR hip LT 2V w/ pelvis Accession Number(s): [id number] cc: Usman Alvarez M.D. [place] [id number] Patient Name: KIMBERLY SILVERMAN MRN: [id number] date: 1990 Sex: F Assigned Patient Location: Current Patient Location: Accession/Order Numb er: [id number] Exam Date: 07/21/2024 08:05 Report Date: 07/22/2024 [...] M.D. Signed By: 07/22/2437 DD/ 4 TD/TT: Safety Sitter: XR lumbar spine min 4V Reviewed date:07/23/2024 08:51:20 PM Interpretation: Performing Lab: Notes/Report: [facility] [place] [address] XRay Report Signed Patient: KIMBERLY SILVERMAN MR#: [id number] : 1990 Acct:[id number] Age/Sex: 34 / F ADM Date: 07/21/24 Loc: US Attending Dr: Usman Alvarez M.D. Ordering Physician: Usman Alvarez M.D. Date of Service: 07/21/24 Procedure(s): XR lumbar spine min 4V Accession Number(s): [id number] cc: Usman Alvarez M.D. [place] [address] Patient Name: KIMBERLY SILVERMAN MRN: [id number] date: 1990 Sex: F Assigned Patient Location: Current Patient Location: Accession/Order Number: [id number] Exam Date: 07/21/2024 08:05 Report Date: 07/21/2024 [...] Signed By: 07/21/24 1045 DD/ 1043 TD/TT: Safety Sitter: [place] [address] XRay Report Signed Patient: TYREE SILVERMAN MR#: [id number] : 1990 Acct:[id number] Age/Sex: 34 / F ADM Date: 07/21/24 Loc: US Attending Dr: Dougla s Hoy M.D. Ordering Physician: Usman Alvarez M.D. Date of Service: 07/21/24 Procedure(s): XR lum bar spine min 4V Accession Number(s): [id number] cc: Usman Alvarez M.D. [place] [address] Patient Name: KIMBERLY SILVERMAN MRN: [id number] date: 1990 Sex: F Assigned Patient Location: US Current Patient Location: US Accession/Order Numb er: [id number] Exam Date: 07/21/2024 08:05 Report Date: 07/21/2024 [...] Signed By: 07/21/24 1045 DD/ 1043 TD/TT: Safety Sitter: US venous doppler LE BI Reviewed date:07/23/2024 08:51:20 PM Interpretation: Performing Lab: Notes/Report: Source Facility: [place] [address] Ultrasound Report Signed Patient: KIMBERLY SILVERMAN MR#: [id number] : 1990 Acct:[id number] Age/Sex: 34 / F ADM Date: 07/21/24 Loc: US Attending Dr: Usman Alvarez M.D. Ordering Physician: Usman Alvarez M.D. Date of Service: 07/21/24 Procedure(s): US venous doppler LE LT Accession Number(s): [id number] cc: Usman Alvarez M.D. [address] [address] Patient Name: KIMBERLY SILVERMAN MRN: [id number] date: 1990 Sex: F Assigned Patient Location: US Current Patient Location: US Accession/Order Number: [id number] Exam Date: 07/21/2024 07:30 Report Date: 07/21/2024 [...] Signed By: 07/21/24 1123 DD/ 1121 TD/TT: Safety Sitter: [place] [address] Ultrasound Report Signed Patient: TYREE SILVERMAN MR#: [id number] : 1990 Acct:[id number] Age/Sex: 34 / F ADM Date: 07/21/24 Loc: US Attending Dr: Cole Alvarez M.D. Ordering Physician: Usman Alvarez M.D. Date of Service: 07/21/24 Procedure(s): US ivelisse ous doppler LE LT Accession Number(s): [id number] cc: Usman Alvarez M.D. [address] [address] Patient Name: KIMBERLY SILVERMAN MRN: [id number] date: 1990 Sex: F Assigned Patient Location: US Current Patient Location: US Accession/Order Numb er: [id number] Exam Date: 07/21/2024 07:30 Report Date: 07/21/2024 [...] Signed By: 07/21/24 1123 DD/ 1121 TD/TT: Safety Sitter: CBC AUTO DIFF Reviewed date:10/10/2024 05:51:18 PM Interpretation: Performing Lab: Notes/Report: [facility] , White Blood Count 5.4 4.0-11.0 [...] 3/uL Performing Lab: see note ML - [facility] LB CBC AUTO DIFF Reviewed date:07/26/2024 09:52:38 PM Interpretation: Performing Lab: Notes/Report: [facility] , White Blood Count 7.2 4.0-11.0 [...] 3/uL Performing Lab: see note ML - [facility] LB XR Sacroiliac joints (3 view s) * Reviewed date:11/24/2024 08:58:54 AM Interpretation: Performing Lab: Notes/Report: SED RATE and CRP Reviewed date:11/23/2024 04:02:45 PM Interpretation: Performing Lab:[facility], [address] , [place], [place], [id number] [phone] Notes/Report: FACILITY: [facility] [id number] SED RATE WEST. 5 (0 - 25) MM/HR CRP EXTENDED RANGE <0.30 (0.00 - 5.00) MG/L HLA-B27 Reviewed date:11/25/2024 10:23:16 AM Interpretation: Performing Lab:[facility], [facility] [address], [facility] [place] Notes/Report: FASTING:UNKNOWN FASTING: UNKNOWN HLA-B27 [...] ESTERASE (BRUCE) - NEG - NEG MG/DL US duplex IVC Reviewed date:05/23/2025 12:53:36 PM Interpretation: Performing Lab: Notes/Report: Source Facility: [address] [address] [place] [address] Ultrasound Report Signed Patient: KIMBERLY SILVERMAN MR#: [id number] : 1990 Acct:[id number] Age/Sex: 35 / F ADM Date: 05/23/25 Loc: US Attending Dr: Jani Bridges M.D. Ordering Physician: Jani Bridges M.D. Date of Service: 05/23/25 Procedure(s): US duplex IVC Accession Number(s): [id number] cc: Usman Alvarez M.D.; Jani Bridges M.D. [place] [id number] Patient Name: KIMBERLY SILVERMAN MRN: [id number] date: 1990 Sex: F Assigned Patient Location: US Current Patient Location: US Accession/Order Number: [id number] Exam Date: 05/23/2025 10:35 Report Date: 05/23/2025 [...] Lay M.D. 05/23/2025 10:38 AM Dictation Location: [place] [address] Electronically authenticated by: [id number] Y Date: 05/23/2025 10:38 Dictated By: Gaby Lay M.D. Signed By: 05/23/25 1041 DD/ 1038 TD/TT: Safety Sitter: [place] [address] Ultrasound Report Signed Patient: TYREE SILVERMAN MR#: [id number] : 1990 Acct:[id number] Age/Sex: 35 / F ADM Date: 05/23/25 Loc: US Attending Dr: Abigail Bridges M.D. Ordering Physician: Jani Bridges M.D. Date of Service: 05/23/25 Procedure(s): US dup lavonne IVC Accession Number(s): [id number] cc: Usman Alvarez M.D. ; Jani Bridges M.D. [place] [id number] Patient Name: KIMBERLY SILVERMAN MRN: [id number] date: 1990 Sex: F Assigned Patient Location: US Current Patient Location: US Accession/Order Numb er: [id number] Exam Date: 05/23/2025 10:35 Report Date: 05/23/2025 [...] Lay M.D. 05/23/2025 10:38 AM Dictation Location: [place] [address] Electronically authenticated by: [id number] Y Date: 05/23/2025 10:38 Dictated By: Gaby Lay M.D. Signed By: 05/23/25 1041 DD/ 1038 TD/TT: Safety Sitter: Aerobic Culture Reviewed date:04/10/2025 03:49:18 PM Interpretation: Performing Lab: Notes/Report: [facility] , Aerobic Culture See Below For Report Clindamycin Erythromycin Antibiotic Interpretation ONEIL Status Linezolid Vancomycin S F Oxacillin Aerobic Culture Gentamicin Erythromycin S F Ciprofloxacin S F Clindamycin S F Moxifloxacin S F Levofloxacin S F Tetracycline Gentamicin S F Rifampin Linezolid S F Trimethoprim/Sulfametho xazole Oxacillin S F Organism: Staphylococcus aureus : Isolated Vancomycin Rifampin S F O:STAAUR Organism: 2.1 Penicillin Penicillin R F Trimethoprim/Sulfametho xazole S F Tetracycline S F Ciprofloxacin Levofloxacin Moxifloxacin Aerobic Culture *ABNORMAL* Clindamycin Erythromycin Antibiotic Interpretation ONEIL Status Linezolid Vancomycin S F Oxacillin Aerobic Culture Gentamicin Erythromycin S F Ciprofloxacin S F Clindamycin S F Moxifloxacin S F Levofloxacin S F Tetracycline Gentamicin S F Rifampin Linezolid S F Trimethoprim/Sulfametho xazole Oxacillin S F Organism: Staphylococcus aureus : Isolated Vancomycin Rifampin S F O:STAAUR Organism: 2.1 Penicillin Penicillin R F Trimethoprim/Sulfametho xazole S F Tetracycline S F Ciprofloxacin Levofloxacin Moxifloxacin Aerobic Culture Heavy growth Clindamycin Erythromycin Antibiotic Interpretation ONEIL Status Linezolid Vancomycin S F Oxacillin Aerobic Culture Gentamicin Erythromycin S F Ciprofloxacin S F Clindamycin S F Moxifloxacin S F Levofloxacin S F Tetracycline Gentamicin S F Rifampin Linezolid S F Trimethoprim/Sulfametho xazole Oxacillin S F Organism: Staphylococcus aureus : Isolated Vancomycin Rifampin S F O:STAAUR Organism: 2.1 Penicillin Penicillin R F Trimethoprim/Sulfametho xazole S F Tetracycline S F Ciprofloxacin Levofloxacin Moxifloxacin Aerobic Culture Clindamycin Erythromycin Antibiotic Interpretation ONEIL Status Linezolid Vancomycin S F Oxacillin Aerobic Culture Gentamicin Erythromycin S F Ciprofloxacin S F Clindamycin S F Moxifloxacin S F Levofloxacin S F Tetracycline Gentamicin S F Rifampin Linezolid S F Trimethoprim/Sulfametho xazole Oxacillin S F Organism: Staphylococcus aureus : Isolated Vancomycin Rifampin S F O:STAAUR Organism: 2.1 Penicillin Penicillin R F Trimethoprim/Sulfametho xazole S F Tetracycline S F Ciprofloxacin Levofloxacin Moxifloxacin Aerobic Culture Mixed skin ness Clindamycin Erythromycin Antibiotic Interpretation ONEIL Status Linezolid Vancomycin S F Oxacillin Aerobic Culture Gentamicin Erythromycin S F Ciprofloxacin S F Clindamycin S F Moxifloxacin S F Levofloxacin S F Tetracycline Gentamicin S F Rifampin Linezolid S F Trimethoprim/Sulfametho xazole Oxacillin S F Organism: Staphylococcus aureus : Isolated Vancomycin Rifampin S F O:STAAUR Organism: 2.1 Penicillin Penicillin R F Trimethoprim/Sulfametho xazole S F Tetracycline S F Ciprofloxacin Levofloxacin Moxifloxacin Aerobic Culture Light growth Clindamycin Erythromycin Antibiotic Interpretation ONEIL Status Linezolid Vancomycin S F Oxacillin Aerobic Culture Gentamicin Erythromycin S F Ciprofloxacin S F Clindamycin S F Moxifloxacin S F Levofloxacin S F Tetracycline Gentamicin S F Rifampin Linezolid S F Trimethoprim/Sulfametho xazole Oxacillin S F Organism: Staphylococcus aureus : Isolated Vancomycin Rifampin S F O:STAAUR Organism: 2.1 Penicillin Penicillin R F Trimethoprim/Sulfametho xazole S F Tetracycline S F Ciprofloxacin Levofloxacin Moxifloxacin Aerobic Culture Staphylococcus aureus Clindamycin Erythromycin Antibiotic Interpretation ONEIL Status Linezolid Vancomycin S F Oxacillin Aerobic Culture Gentamicin Erythromycin S F Ciprofloxacin S F Clindamycin S F Moxifloxacin S F Levofloxacin S F Tetracycline Gentamicin S F Rifampin Linezolid S F Trimethoprim/Sulfametho xazole Oxacillin S F Organism: Staphylococcus aureus : Isolated Vancomycin Rifampin S F O:STAAUR Organism: 2.1 Penicillin Penicillin R F Trimethoprim/Sulfametho xazole S F Tetracycline S F Ciprofloxacin Levofloxacin Moxifloxacin Aerobic Culture Organism: Staphylococcus aureus : Clindamycin Erythromycin Antibiotic Interpretation ONEIL Status Linezolid Vancomycin S F Oxacillin Aerobic Culture Gentamicin Erythromycin S F Ciprofloxacin S F Clindamycin S F Moxifloxacin S F Levofloxacin S F Tetracycline Gentamicin S F Rifampin Linezolid S F Trimethoprim/Sulfametho xazole Oxacillin S F Organism: Staphylococcus aureus : Isolated Vancomycin Rifampin S F O:STAAUR Organism: 2.1 Penicillin Penicillin R F Trimethoprim/Sulfametho xazole S F Tetracycline S F Ciprofloxacin Levofloxacin Moxifloxacin Aerobic Culture *ABNORMAL* Clindamycin Erythromycin Antibiotic Interpretation ONEIL Status Linezolid Vancomycin S F Oxacillin Aerobic Culture Gentamicin Erythromycin S F Ciprofloxacin S F Clindamycin S F Moxifloxacin S F Levofloxacin S F Tetracycline Gentamicin S F Rifampin Linezolid S F Trimethoprim/Sulfametho xazole Oxacillin S F Organism: Staphylococcus aureus : Isolated Vancomycin Rifampin S F O:STAAUR Organism: 2.1 Penicillin Penicillin R F Trimethoprim/Sulfametho xazole S F Tetracycline S F Ciprofloxacin Levofloxacin Moxifloxacin Aerobic Culture Based on susceptibil ity to oxacillin this isolate would be Clindamycin Erythromycin Antibiotic Interpretation ONEIL Status Linezolid Vancomycin S F Oxacillin Aerobic Culture Gentamicin Erythromycin S F Ciprofloxacin S F Clindamycin S F Moxifloxacin S F Levofloxacin S F Tetracycline Gentamicin S F Rifampin Linezolid S F Trimethoprim/Sulfametho xazole Oxacillin S F Organism: Staphylococcus aureus : Isolated Vancomycin Rifampin S F O:STAAUR Organism: 2.1 Penicillin Penicillin R F Trimethoprim/Sulfametho xazole S F Tetracycline S F Ciprofloxacin Levofloxacin Moxifloxacin Aerobic Culture susceptible to: Clindamycin Erythromycin Antibiotic Interpretation ONEIL Status Linezolid Vancomycin S F Oxacillin Aerobic Culture Gentamicin Erythromycin S F Ciprofloxacin S F Clindamycin S F Moxifloxacin S F Levofloxacin S F Tetracycline Gentamicin S F Rifampin Linezolid S F Trimethoprim/Sulfametho xazole Oxacillin S F Organism: Staphylococcus aureus : Isolated Vancomycin Rifampin S F O:STAAUR Organism: 2.1 Penicillin Penicillin R F Trimethoprim/Sulfametho xazole S F Tetracycline S F Ciprofloxacin Levofloxacin Moxifloxacin Aerobic Culture *Penicillinase-stabl e penicillins, such as: Clindamycin Erythromycin Antibiotic Interpretation ONEIL Status Linezolid Vancomycin S F Oxacillin Aerobic Culture Gentamicin Erythromycin S F Ciprofloxacin S F Clindamycin S F Moxifloxacin S F Levofloxacin S F Tetracycline Gentamicin S F Rifampin Linezolid S F Trimethoprim/Sulfametho xazole Oxacillin S F Organism: Staphylococcus aureus : Isolated Vancomycin Rifampin S F O:STAAUR Organism: 2.1 Penicillin Penicillin R F Trimethoprim/Sulfametho xazole S F Tetracycline S F Ciprofloxacin Levofloxacin Moxifloxacin Aerobic Culture Cloxacillin, Dicloxacillin, Nafcillin Clindamycin Erythromycin Antibiotic Interpretation ONEIL Status Linezolid Vancomycin S F Oxacillin Aerobic Culture Gentamicin Erythromycin S F Ciprofloxacin S F Clindamycin S F Moxifloxacin S F Levofloxacin S F Tetracycline Gentamicin S F Rifampin Linezolid S F Trimethoprim/Sulfametho xazole Oxacillin S F Organism: Staphylococcus aureus : Isolated Vancomycin Rifampin S F O:STAAUR Organism: 2.1 Penicillin Penicillin R F Trimethoprim/Sulfametho xazole S F Tetracycline S F Ciprofloxacin Levofloxacin Moxifloxacin Aerobic Culture *Beta-lactam combination agents, such as: Clindamycin Erythromycin Antibiotic Interpretation ONEIL Status Linezolid Vancomycin S F Oxacillin Aerobic Culture Gentamicin Erythromycin S F Ciprofloxacin S F Clindamycin S F Moxifloxacin S F Levofloxacin S F Tetracycline Gentamicin S F Rifampin Linezolid S F Trimethoprim/Sulfametho xazole Oxacillin S F Organism: Staphylococcus aureus : Isolated Vancomycin Rifampin S F O:STAAUR Organism: 2.1 Penicillin Penicillin R F Trimethoprim/Sulfametho xazole S F Tetracycline S F Ciprofloxacin Levofloxacin Moxifloxacin Aerobic Culture Amoxicillin-clavulan ic acid, Ampicillin-sulbactam, Clindamycin Erythromycin Antibiotic Interpretation ONEIL Status Linezolid Vancomycin S F Oxacillin Aerobic Culture Gentamicin Erythromycin S F Ciprofloxacin S F Clindamycin S F Moxifloxacin S F Levofloxacin S F Tetracycline Gentamicin S F Rifampin Linezolid S F Trimethoprim/Sulfametho xazole Oxacillin S F Organism: Staphylococcus aureus : Isolated Vancomycin Rifampin S F O:STAAUR Organism: 2.1 Penicillin Penicillin R F Trimethoprim/Sulfametho xazole S F Tetracycline S F Ciprofloxacin Levofloxacin Moxifloxacin Aerobic Culture Piperacillin-tazobactam Clindamycin Erythromycin Antibiotic Interpretation ONEIL Status Linezolid Vancomycin S F Oxacillin Aerobic Culture Gentamicin Erythromycin S F Ciprofloxacin S F Clindamycin S F Moxifloxacin S F Levofloxacin S F Tetracycline Gentamicin S F Rifampin Linezolid S F Trimethoprim/Sulfametho xazole Oxacillin S F Organism: Staphylococcus aureus : Isolated Vancomycin Rifampin S F O:STAAUR Organism: 2.1 Penicillin Penicillin R F Trimethoprim/Sulfametho xazole S F Tetracycline S F Ciprofloxacin Levofloxacin Moxifloxacin Aerobic Culture *Oral cephems, such as: Clindamycin Erythromycin Antibiotic Interpretation ONEIL Status Linezolid Vancomycin S F Oxacillin Aerobic Culture Gentamicin Erythromycin S F Ciprofloxacin S F Clindamycin S F Moxifloxacin S F Levofloxacin S F Tetracycline Gentamicin S F Rifampin Linezolid S F Trimethoprim/Sulfametho xazole Oxacillin S F Organism: Staphylococcus aureus : Isolated Vancomycin Rifampin S F O:STAAUR Organism: 2.1 Penicillin Penicillin R F Trimethoprim/Sulfametho xazole S F Tetracycline S F Ciprofloxacin Levofloxacin Moxifloxacin Aerobic Culture Cefaclor, Cefdinir, Cefpodoxime, Cefprozil, Cefuroxime, Clindamycin Erythromycin Antibiotic Interpretation ONEIL Status Linezolid Vancomycin S F Oxacillin Aerobic Culture Gentamicin Erythromycin S F Ciprofloxacin S F Clindamycin S F Moxifloxacin S F Levofloxacin S F Tetracycline Gentamicin S F Rifampin Linezolid S F Trimethoprim/Sulfametho xazole Oxacillin S F Organism: Staphylococcus aureus : Isolated Vancomycin Rifampin S F O:STAAUR Organism: 2.1 Penicillin Penicillin R F Trimethoprim/Sulfametho xazole S F Tetracycline S F Ciprofloxacin Levofloxacin Moxifloxacin Aerobic Culture Cephalexin, Loracarbef Clindamycin Erythromycin Antibiotic Interpretation ONEIL Status Linezolid Vancomycin S F Oxacillin Aerobic Culture Gentamicin Erythromycin S F Ciprofloxacin S F Clindamycin S F Moxifloxacin S F Levofloxacin S F Tetracycline Gentamicin S F Rifampin Linezolid S F Trimethoprim/Sulfametho xazole Oxacillin S F Organism: Staphylococcus aureus : Isolated Vancomycin Rifampin S F O:STAAUR Organism: 2.1 Penicillin Penicillin R F Trimethoprim/Sulfametho xazole S F Tetracycline S F Ciprofloxacin Levofloxacin Moxifloxacin Aerobic Culture *Parenteral cephems, such as: Clindamycin Erythromycin Antibiotic Interpretation ONEIL Status Linezolid Vancomycin S F Oxacillin Aerobic Culture Gentamicin Erythromycin S F Ciprofloxacin S F Clindamycin S F Moxifloxacin S F Levofloxacin S F Tetracycline Gentamicin S F Rifampin Linezolid S F Trimethoprim/Sulfametho xazole Oxacillin S F Organism: Staphylococcus aureus : Isolated Vancomycin Rifampin S F O:STAAUR Organism: 2.1 Penicillin Penicillin R F Trimethoprim/Sulfametho xazole S F Tetracycline S F Ciprofloxacin Levofloxacin Moxifloxacin Aerobic Culture Cefazolin, Cefepime, Cefotaxime, Cefotetan, Ceftaroline, Clindamycin Erythromycin Antibiotic Interpretation ONEIL Status Linezolid Vancomycin S F Oxacillin Aerobic Culture Gentamicin Erythromycin S F Ciprofloxacin S F Clindamycin S F Moxifloxacin S F Levofloxacin S F Tetracycline Gentamicin S F Rifampin Linezolid S F Trimethoprim/Sulfametho xazole Oxacillin S F Organism: Staphylococcus aureus : Isolated Vancomycin Rifampin S F O:STAAUR Organism: 2.1 Penicillin Penicillin R F Trimethoprim/Sulfametho xazole S F Tetracycline S F Ciprofloxacin Levofloxacin Moxifloxacin Aerobic Culture Ceftizoxime, Ceftriaxone, Cefuroxime Clindamycin Erythromycin Antibiotic Interpretation ONEIL Status Linezolid Vancomycin S F Oxacillin Aerobic Culture Gentamicin Erythromycin S F Ciprofloxacin S F Clindamycin S F Moxifloxacin S F Levofloxacin S F Tetracycline Gentamicin S F Rifampin Linezolid S F Trimethoprim/Sulfametho xazole Oxacillin S F Organism: Staphylococcus aureus : Isolated Vancomycin Rifampin S F O:STAAUR Organism: 2.1 Penicillin Penicillin R F Trimethoprim/Sulfametho xazole S F Tetracycline S F Ciprofloxacin Levofloxacin Moxifloxacin Aerobic Culture *Carbapenems, such as: Clindamycin Erythromycin Antibiotic Interpretation ONEIL Status Linezolid Vancomycin S F Oxacillin Aerobic Culture Gentamicin Erythromycin S F Ciprofloxacin S F Clindamycin S F Moxifloxacin S F Levofloxacin S F Tetracycline Gentamicin S F Rifampin Linezolid S F Trimethoprim/Sulfametho xazole Oxacillin S F Organism: Staphylococcus aureus : Isolated Vancomycin Rifampin S F O:STAAUR Organism: 2.1 Penicillin Penicillin R F Trimethoprim/Sulfametho xazole S F Tetracycline S F Ciprofloxacin Levofloxacin Moxifloxacin Aerobic Culture Doripenem, Ertapenem , Imipenem, Meropenem Clindamycin Erythromycin Antibiotic Interpretation ONEIL Status Linezolid Vancomycin S F Oxacillin Aerobic Culture Gentamicin Erythromycin S F Ciprofloxacin S F Clindamycin S F Moxifloxacin S F Levofloxacin S F Tetracycline Gentamicin S F Rifampin Linezolid S F Trimethoprim/Sulfametho xazole Oxacillin S F Organism: Staphylococcus aureus : Isolated Vancomycin Rifampin S F O:STAAUR Organism: 2.1 Penicillin Penicillin R F Trimethoprim/Sulfametho xazole S F Tetracycline S F Ciprofloxacin Levofloxacin Moxifloxacin Aerobic Culture Heavy growth Clindamycin Erythromycin Antibiotic Interpretation ONEIL Status Linezolid Vancomycin S F Oxacillin Aerobic Culture Gentamicin Erythromycin S F Ciprofloxacin S F Clindamycin S F Moxifloxacin S F Levofloxacin S F Tetracycline Gentamicin S F Rifampin Linezolid S F Trimethoprim/Sulfametho xazole Oxacillin S F Organism: Staphylococcus aureus : Isolated Vancomycin Rifampin S F O:STAAUR Organism: 2.1 Penicillin Penicillin R F Trimethoprim/Sulfametho xazole S F Tetracycline S F Ciprofloxacin Levofloxacin Moxifloxacin Aerobic Culture Clindamycin Erythromycin Antibiotic Interpretation ONEIL Status Linezolid Vancomycin S F Oxacillin Aerobic Culture Gentamicin Erythromycin S F Ciprofloxacin S F Clindamycin S F Moxifloxacin S F Levofloxacin S F Tetracycline Gentamicin S F Rifampin Linezolid S F Trimethoprim/Sulfametho xazole Oxacillin S F Organism: Staphylococcus aureus : Isolated Vancomycin Rifampin S F O:STAAUR Organism: 2.1 Penicillin Penicillin R F Trimethoprim/Sulfametho xazole S F Tetracycline S F Ciprofloxacin Levofloxacin Moxifloxacin Aerobic Culture Mixed skin ness Clindamycin Erythromycin Antibiotic Interpretation ONEIL Status Linezolid Vancomycin S F Oxacillin Aerobic Culture Gentamicin Erythromycin S F Ciprofloxacin S F Clindamycin S F Moxifloxacin S F Levofloxacin S F Tetracycline Gentamicin S F Rifampin Linezolid S F Trimethoprim/Sulfametho xazole Oxacillin S F Organism: Staphylococcus aureus : Isolated Vancomycin Rifampin S F O:STAAUR Organism: 2.1 Penicillin Penicillin R F Trimethoprim/Sulfametho xazole S F Tetracycline S F Ciprofloxacin Levofloxacin Moxifloxacin Aerobic Culture Light growth Clindamycin Erythromycin Antibiotic Interpretation ONEIL Status Linezolid Vancomycin S F Oxacillin Aerobic Culture Gentamicin Erythromycin S F Ciprofloxacin S F Clindamycin S F Moxifloxacin S F Levofloxacin S F Tetracycline Gentamicin S F Rifampin Linezolid S F Trimethoprim/Sulfametho xazole Oxacillin S F Organism: Staphylococcus aureus : Isolated Vancomycin Rifampin S F O:STAAUR Organism: 2.1 Penicillin Penicillin R F Trimethoprim/Sulfametho xazole S F Tetracycline S F Ciprofloxacin Levofloxacin Moxifloxacin Aerobic Culture See Below For Report Clindamycin Erythromycin Antibiotic Interpretation ONEIL Status Linezolid Vancomycin S F Oxacillin Aerobic Culture Gentamicin Erythromycin S F Ciprofloxacin S F Clindamycin S F Moxifloxacin S F Levofloxacin S F Tetracycline Gentamicin S F Rifampin Linezolid S F Trimethoprim/Sulfametho xazole Oxacillin S F Organism: Staphylococcus aureus : Isolated Vancomycin Rifampin S F O:STAAUR Organism: 2.1 Penicillin Penicillin R F Trimethoprim/Sulfametho xazole S F Tetracycline S F Ciprofloxacin Levofloxacin Moxifloxacin Aerobic Culture Performed at: [facility] Clindamycin Erythromycin Antibiotic Interpretation ONEIL Status Linezolid Vancomycin S F Oxacillin Aerobic Culture Gentamicin Erythromycin S F Ciprofloxacin S F Clindamycin S F Moxifloxacin S F Levofloxacin S F Tetracycline Gentamicin S F Rifampin Linezolid S F Trimethoprim/Sulfametho xazole Oxacillin S F Organism: Staphylococcus aureus : Isolated Vancomycin Rifampin S F O:STAAUR Organism: 2.1 Penicillin Penicillin R F Trimethoprim/Sulfametho xazole S F Tetracycline S F Ciprofloxacin Levofloxacin Moxifloxacin Aerobic Culture [address] [place] [phone] Clindamycin Erythromycin Antibiotic Interpretation ONEIL Status Linezolid Vancomycin S F Oxacillin Aerobic Culture Gentamicin Erythromycin S F Ciprofloxacin S F Clindamycin S F Moxifloxacin S F Levofloxacin S F Tetracycline Gentamicin S F Rifampin Linezolid S F Trimethoprim/Sulfametho xazole Oxacillin S F Organism: Staphylococcus aureus : Isolated Vancomycin Rifampin S F O:STAAUR Organism: 2.1 Penicillin Penicillin R F Trimethoprim/Sulfametho xazole S F Tetracycline S F Ciprofloxacin Levofloxacin Moxifloxacin Aerobic Culture Plant Etiologist: Kristel Pardo PhD, Phone: [phone] Clindamycin Erythromycin Antibiotic Interpretation ONEIL Status Linezolid Vancomycin S F Oxacillin Aerobic Culture Gentamicin Erythromycin S F Ciprofloxacin S F Clindamycin S F Moxifloxacin S F Levofloxacin S F Tetracycline Gentamicin S F Rifampin Linezolid S F Trimethoprim/Sulfametho xazole Oxacillin S F Organism: Staphylococcus aureus : Isolated Vancomycin Rifampin S F O:STAAUR Organism: 2.1 Penicillin Penicillin R F Trimethoprim/Sulfametho xazole S F Tetracycline S F Ciprofloxacin Levofloxacin Moxifloxacin Aerobic Culture See Below For Report Clindamycin Erythromycin Antibiotic Interpretation ONEIL Status Linezolid Vancomycin S F Oxacillin Aerobic Culture Gentamicin Erythromycin S F Ciprofloxacin S F Clindamycin S F Moxifloxacin S F Levofloxacin S F Tetracycline Gentamicin S F Rifampin Linezolid S F Trimethoprim/Sulfametho xazole Oxacillin S F Organism: Staphylococcus aureus : Isolated Vancomycin Rifampin S F O:STAAUR Organism: 2.1 Penicillin Penicillin R F Trimethoprim/Sulfametho xazole S F Tetracycline S F Ciprofloxacin Levofloxacin Moxifloxacin Aerobic Culture See Below For Report Clindamycin Erythromycin Antibiotic Interpretation ONEIL Status Linezolid Vancomycin S F Oxacillin Aerobic Culture Gentamicin Erythromycin S F Ciprofloxacin S F Clindamycin S F Moxifloxacin S F Levofloxacin S F Tetracycline Gentamicin S F Rifampin Linezolid S F Trimethoprim/Sulfametho xazole Oxacillin S F Organism: Staphylococcus aureus : Isolated Vancomycin Rifampin S F O:STAAUR Organism: 2.1 Penicillin Penicillin R F Trimethoprim/Sulfametho xazole S F Tetracycline S F Ciprofloxacin Levofloxacin Moxifloxacin Aerobic Culture See Below For Report Clindamycin Erythromycin Antibiotic Interpretation ONEIL Status Linezolid Vancomycin S F Oxacillin Aerobic Culture Gentamicin Erythromycin S F Ciprofloxacin S F Clindamycin S F Moxifloxacin S F Levofloxacin S F Tetracycline Gentamicin S F Rifampin Linezolid S F Trimethoprim/Sulfametho xazole Oxacillin S F Organism: Staphylococcus aureus : Isolated Vancomycin Rifampin S F O:STAAUR Organism: 2.1 Penicillin Penicillin R F Trimethoprim/Sulfametho xazole S F Tetracycline S F Ciprofloxacin Levofloxacin Moxifloxacin Aerobic Culture See Below For Report Clindamycin Erythromycin Antibiotic Interpretation ONEIL Status Linezolid Vancomycin S F Oxacillin Aerobic Culture Gentamicin Erythromycin S F Ciprofloxacin S F Clindamycin S F Moxifloxacin S F Levofloxacin S F Tetracycline Gentamicin S F Rifampin Linezolid S F Trimethoprim/Sulfametho xazole Oxacillin S F Organism: Staphylococcus aureus : Isolated Vancomycin Rifampin S F O:STAAUR Organism: 2.1 Penicillin Penicillin R F Trimethoprim/Sulfametho xazole S F Tetracycline S F Ciprofloxacin Levofloxacin Moxifloxacin Aerobic Culture See Below For Report Clindamycin Erythromycin Antibiotic Interpretation ONEIL Status Linezolid Vancomycin S F Oxacillin Aerobic Culture Gentamicin Erythromycin S F Ciprofloxacin S F Clindamycin S F Moxifloxacin S F Levofloxacin S F Tetracycline Gentamicin S F Rifampin Linezolid S F Trimethoprim/Sulfametho xazole Oxacillin S F Organism: Staphylococcus aureus : Isolated Vancomycin Rifampin S F O:STAAUR Organism: 2.1 Penicillin Penicillin R F Trimethoprim/Sulfametho xazole S F Tetracycline S F Ciprofloxacin Levofloxacin Moxifloxacin Aerobic Culture See Below For Report Clindamycin Erythromycin Antibiotic Interpretation ONEIL Status Linezolid Vancomycin S F Oxacillin Aerobic Culture Gentamicin Erythromycin S F Ciprofloxacin S F Clindamycin S F Moxifloxacin S F Levofloxacin S F Tetracycline Gentamicin S F Rifampin Linezolid S F Trimethoprim/Sulfametho xazole Oxacillin S F Organism: Staphylococcus aureus : Isolated Vancomycin Rifampin S F O:STAAUR Organism: 2.1 Penicillin Penicillin R F Trimethoprim/Sulfametho xazole S F Tetracycline S F Ciprofloxacin Levofloxacin Moxifloxacin Aerobic Culture See Below For Report Clindamycin Erythromycin Antibiotic Interpretation ONEIL Status Linezolid Vancomycin S F Oxacillin Aerobic Culture Gentamicin Erythromycin S F Ciprofloxacin S F Clindamycin S F Moxifloxacin S F Levofloxacin S F Tetracycline Gentamicin S F Rifampin Linezolid S F Trimethoprim/Sulfametho xazole Oxacillin S F Organism: Staphylococcus aureus : Isolated Vancomycin Rifampin S F O:STAAUR Organism: 2.1 Penicillin Penicillin R F Trimethoprim/Sulfametho xazole S F Tetracycline S F Ciprofloxacin Levofloxacin Moxifloxacin Aerobic Culture See Below For Report Clindamycin Erythromycin Antibiotic Interpretation ONEIL Status Linezolid Vancomycin S F Oxacillin Aerobic Culture Gentamicin Erythromycin S F Ciprofloxacin S F Clindamycin S F Moxifloxacin S F Levofloxacin S F Tetracycline Gentamicin S F Rifampin Linezolid S F Trimethoprim/Sulfametho xazole Oxacillin S F Organism: Staphylococcus aureus : Isolated Vancomycin Rifampin S F O:STAAUR Organism: 2.1 Penicillin Penicillin R F Trimethoprim/Sulfametho xazole S F Tetracycline S F Ciprofloxacin Levofloxacin Moxifloxacin Aerobic Culture See Below For Report Clindamycin Erythromycin Antibiotic Interpretation ONEIL Status Linezolid Vancomycin S F Oxacillin Aerobic Culture Gentamicin Erythromycin S F Ciprofloxacin S F Clindamycin S F Moxifloxacin S F Levofloxacin S F Tetracycline Gentamicin S F Rifampin Linezolid S F Trimethoprim/Sulfametho xazole Oxacillin S F Organism: Staphylococcus aureus : Isolated Vancomycin Rifampin S F O:STAAUR Organism: 2.1 Penicillin Penicillin R F Trimethoprim/Sulfametho xazole S F Tetracycline S F Ciprofloxacin Levofloxacin Moxifloxacin Aerobic Culture See Below For Report Clindamycin Erythromycin Antibiotic Interpretation ONEIL Status Linezolid Vancomycin S F Oxacillin Aerobic Culture Gentamicin Erythromycin S F Ciprofloxacin S F Clindamycin S F Moxifloxacin S F Levofloxacin S F Tetracycline Gentamicin S F Rifampin Linezolid S F Trimethoprim/Sulfametho xazole Oxacillin S F Organism: Staphylococcus aureus : Isolated Vancomycin Rifampin S F O:STAAUR Organism: 2.1 Penicillin Penicillin R F Trimethoprim/Sulfametho xazole S F Tetracycline S F Ciprofloxacin Levofloxacin Moxifloxacin Aerobic Culture See Below For Report Clindamycin Erythromycin Antibiotic Interpretation ONEIL Status Linezolid Vancomycin S F Oxacillin Aerobic Culture Gentamicin Erythromycin S F Ciprofloxacin S F Clindamycin S F Moxifloxacin S F Levofloxacin S F Tetracycline Gentamicin S F Rifampin Linezolid S F Trimethoprim/Sulfametho xazole Oxacillin S F Organism: Staphylococcus aureus : Isolated Vancomycin Rifampin S F O:STAAUR Organism: 2.1 Penicillin Penicillin R F Trimethoprim/Sulfametho xazole S F Tetracycline S F Ciprofloxacin Levofloxacin Moxifloxacin Aerobic Culture See Below For Report Clindamycin Erythromycin Antibiotic Interpretation ONEIL Status Linezolid Vancomycin S F Oxacillin Aerobic Culture Gentamicin Erythromycin S F Ciprofloxacin S F Clindamycin S F Moxifloxacin S F Levofloxacin S F Tetracycline Gentamicin S F Rifampin Linezolid S F Trimethoprim/Sulfametho xazole Oxacillin S F Organism: Staphylococcus aureus : Isolated Vancomycin Rifampin S F O:STAAUR Organism: 2.1 Penicillin Penicillin R F Trimethoprim/Sulfametho xazole S F Tetracycline S F Ciprofloxacin Levofloxacin Moxifloxacin Aerobic Culture See Below For Report Clindamycin Erythromycin Antibiotic Interpretation ONEIL Status Linezolid Vancomycin S F Oxacillin Aerobic Culture Gentamicin Erythromycin S F Ciprofloxacin S F Clindamycin S F Moxifloxacin S F Levofloxacin S F Tetracycline Gentamicin S F Rifampin Linezolid S F Trimethoprim/Sulfametho xazole Oxacillin S F Organism: Staphylococcus aureus : Isolated Vancomycin Rifampin S F O:STAAUR Organism: 2.1 Penicillin Penicillin R F Trimethoprim/Sulfametho xazole S F Tetracycline S F Ciprofloxacin Levofloxacin Moxifloxacin Aerobic Culture See Below For Report Clindamycin Erythromycin Antibiotic Interpretation ONEIL Status Linezolid Vancomycin S F Oxacillin Aerobic Culture Gentamicin Erythromycin S F Ciprofloxacin S F Clindamycin S F Moxifloxacin S F Levofloxacin S F Tetracycline Gentamicin S F Rifampin Linezolid S F Trimethoprim/Sulfametho xazole Oxacillin S F Organism: Staphylococcus aureus : Isolated Vancomycin Rifampin S F O:STAAUR Organism: 2.1 Penicillin Penicillin R F Trimethoprim/Sulfametho xazole S F Tetracycline S F Ciprofloxacin Levofloxacin Moxifloxacin Performing Lab: see note SEE REPORT - Knockout Worker Id information not found for OBX-specific event producer legend LC - [facility] LB Anaerobic Culture Reviewed date:04/10/2025 03:49:18 PM Interpretation: Performing Lab: Notes/Report: [facility] , Anaerobic Culture See Below For Report Anaerobic Culture Anaerobic Culture No anaerobic growth in 72 hours. Anaerobic Culture Performing Lab: see note LC - [facility] LB MR pelvis wo/w con Reviewed date:12/18/2024 08:59:24 PM Interpretation: Performing Lab: Notes/Report: Source Facility: [place] [address] [place] [address] Magnetic Resonance Report Signed Patient: KIMBERLY SILVERMAN MR#: [id number] : 1990 Acct:[id number] Age/Sex: 34 / F ADM Date: 12/18/24 Loc: MRI Attending Dr: SarahStaff Physician Abad Ordering Physician: Flakito Swanson M.D. Date of Service: 12/18/24 Procedure(s): MR pelvis wo/w con Accession Number(s): [id number] cc: Usman Alvarez M.D.; Flakito Swanson M.D. [place] [address] Patient Name: KIMBERLY SILVERMAN MRN: [id number] date: 1990 Sex: F Assigned Patient Location: MRI Current Patient Location: MRI Accession/Order Number: [id number] Exam Date: 12/18/2024 08:00 Report Date: 12/18/2024 16:59 At the request of: SARAHSTAFF PHYSICIAN Procedure: MR pelvis wo/w con EXAM: [...] By: Ministerio Paredes M.D. Signed By: 12/18/24 7140 DD/ 1859 TD/TT: Safety Sitter: [place] [address] Magnetic Resonance Report Signed Patient: TYREE SILVERMAN MR#: [id number] : 1990 Acct:[id number] Age/Sex: 34 / F ADM Date: 12/18/24 Loc: MRI Attending Dr: Abelardo Swanson M.D. Ordering Physician: Flakito Swanson M.D. Date of Service: 12/18/24 Procedure(s): MR pel vis wo/w con Accession Number(s): [id number] cc: Usman Alvarez M.D. ; Flakito Swanson M.D. [place] [address] Patient Name: KIMBERLY SILVERMAN MRN: [id number] date: 1990 Sex: F Assigned Patient Location: MRI Current Patient Location: MRI Accession/Order Numb er: [id number] Exam Date: 12/18/2024 08:00 Report Date: 12/18/2024 [...] Signed By: 12/18/24 1702 DD/ 1659 TD/TT: Safety Sitter: hip LT wo con Reviewed date:12/18/2024 08:59:24 PM Interpretation: Performing Lab: Notes/Report: Source Facility: [place] [address] Magnetic Resonance Report Signed Patient: KIMBERLY SILVERMAN MR#: [id number] : 1990 Acct:[id number] Age/Sex: 34 / F ADM Date: 12/18/24 Loc: MRI Attending Dr: Swati-Staff Physician Abad Ordering Physician: Flakito Swanson M.D. Date of Service: 12/18/24 Procedure(s): hip LT wo con Accession Number(s): [id number] cc: Usman Alvarez M.D.; Flakito Swanson M.D. [facility] [place] [address] Patient Name: KIMBERLY SILVERMAN MRN: [id number] date: 1990 Sex: F Assigned Patient Location: MRI Current Patient Location: MRI Accession/Order Number: [id number] Exam Date: 12/18/2024 08:00 Report Date: 12/18/2024 [...] Signed By: 12/18/24 1702 DD/ 1659 TD/TT: Safety Sitter: [place] [address] Magnetic Resonance Report Signed Patient: TYREE SILVERMAN MR#: [id number] : 1990 Acct:[id number] Age/Sex: 34 / F ADM Date: 12/18/24 Loc: MRI Attending Dr: Abelardo Swanson M.D. Ordering Physician: Flakito Swanson M.D. Date of Service: 12/18/24 Procedure(s): MR hip LT wo con Accession Number(s): [id number] cc: Usman Alvarez M.D. ; Flakito Swanson M.D. [facility] [place] [id number] Patient Name: KIMBERLY SILVERMAN MRN: [id number] date: 1990 Sex: F Assigned Patient Location: MRI Current Patient Location: MRI Accession/Order Numb er: [id number] Exam Date: 12/18/2024 08:00 Report Date: 12/18/2024 [...] Signed By: 12/18/24 1702 DD/ 1659 TD/TT: Safety Sitter: Total Protein 24 Hour Urine Reviewed date:10/22/2024 06:28:17 PM Interpretation: Performing Lab: Notes/Report: [facility] , Total Protein Urine Random 8.4 <=11.9 mg/dL Total Volume 24 Hour Urine 825 Total Protein 24 Hour Urine 69.3 <=149.1 mg/24hr Performing Lab: see note ML - [facility] LB PROF CHEM 8 (BAS METB) (Not yet reviewed by provider) Interpretation: Performing Lab: Notes/Report: [facility] , Sodium 135 136-145 mmol/L Potassium [...] mg/dL Performing Lab: see note ML - [facility] LB IRON AND TIBC (Not yet revie wed by provider) Interpretation: Performing Lab: Notes/Report: [facility] , Iron 52.0 50.0-170.0 ug/dL Total Iron Binding Capacity 226.0 250.0-450.0 ug/dL Percent Iron Saturation 23.0 Performing Lab: see note ML - [facility] LB FERRITIN (Not yet reviewed b y provider) Interpretation: Performing Lab: Notes/Report: [facility] , Ferritin 64.0 8.0-252.0 ng/mL Performing Lab: see note ML - [facility] LB CBC AUTO DIFF (Not yet revie wed by provider) Interpretation: Performing Lab: Notes/Report: [facility] , White Blood Count 7.1 4.0-11.0 [...] 3/uL Performing Lab: see note ML - [facility] LB Aerobic Culture Reviewed date:04/07/2025 11:55:46 AM Interpretation: Performing Lab: Notes/Report: [facility] , Aerobic Culture See Below For Report O:STAAUR Aerobic Culture Organism: 1.1 Antibiotic Interpretation ONEIL Status Organism: Staphylococcus aureus : Isolated Aerobic Culture *ABNORMAL* O:STAAUR Aerobic Culture Organism: 1.1 Antibiotic Interpretation ONEIL Status Organism: Staphylococcus aureus : Isolated Aerobic Culture Heavy growth O:STAAUR Aerobic Culture Organism: 1.1 Antibiotic Interpretation ONEIL Status Organism: Staphylococcus aureus : Isolated Aerobic Culture O:STAAUR Aerobic Culture Organism: 1.1 Antibiotic Interpretation ONEIL Status Organism: Staphylococcus aureus : Isolated Aerobic Culture Mixed skin ness O:STAAUR Aerobic Culture Organism: 1.1 Antibiotic Interpretation ONEIL Status Organism: Staphylococcus aureus : Isolated Aerobic Culture Light growth O:STAAUR Aerobic Culture Organism: 1.1 Antibiotic Interpretation ONEIL Status Organism: Staphylococcus aureus : Isolated Aerobic Culture Staphylococcus aureus O:STAAUR Aerobic Culture Organism: 1.1 Antibiotic Interpretation ONEIL Status Organism: Staphylococcus aureus : Isolated Aerobic Culture Organism: Staphylococcus aureus : O:STAAUR Aerobic Culture Organism: 1.1 Antibiotic Interpretation ONEIL Status Organism: Staphylococcus aureus : Isolated Aerobic Culture *ABNORMAL* O:STAAUR Aerobic Culture Organism: 1.1 Antibiotic Interpretation ONEIL Status Organism: Staphylococcus aureus : Isolated Aerobic Culture Based on susceptibil ity to oxacillin this isolate would be O:STAAUR Aerobic Culture Organism: 1.1 Antibiotic Interpretation ONEIL Status Organism: Staphylococcus aureus : Isolated Aerobic Culture susceptible to: O:STAAUR Aerobic Culture Organism: 1.1 Antibiotic Interpretation ONEIL Status Organism: Staphylococcus aureus : Isolated Aerobic Culture *Penicillinase-stabl e penicillins, such as: O:STAAUR Aerobic Culture Organism: 1.1 Antibiotic Interpretation ONEIL Status Organism: Staphylococcus aureus : Isolated Aerobic Culture Cloxacillin, Dicloxacillin, Nafcillin O:STAAUR Aerobic Culture Organism: 1.1 Antibiotic Interpretation ONEIL Status Organism: Staphylococcus aureus : Isolated Aerobic Culture *Beta-lactam combination agents, such as: O:STAAUR Aerobic Culture Organism: 1.1 Antibiotic Interpretation ONEIL Status Organism: Staphylococcus aureus : Isolated Aerobic Culture Amoxicillin-clavulan ic acid, Ampicillin-sulbactam, O:STAAUR Aerobic Culture Organism: 1.1 Antibiotic Interpretation ONEIL Status Organism: Staphylococcus aureus : Isolated Aerobic Culture Piperacillin-tazobactam O:STAAUR Aerobic Culture Organism: 1.1 Antibiotic Interpretation ONEIL Status Organism: Staphylococcus aureus : Isolated Aerobic Culture *Oral cephems, such as: O:STAAUR Aerobic Culture Organism: 1.1 Antibiotic Interpretation ONEIL Status Organism: Staphylococcus aureus : Isolated Aerobic Culture Cefaclor, Cefdinir, Cefpodoxime, Cefprozil, Cefuroxime, O:STAAUR Aerobic Culture Organism: 1.1 Antibiotic Interpretation ONEIL Status Organism: Staphylococcus aureus : Isolated Aerobic Culture Cephalexin, Loracarbef O:STAAUR Aerobic Culture Organism: 1.1 Antibiotic Interpretation ONEIL Status Organism: Staphylococcus aureus : Isolated Aerobic Culture *Parenteral cephems, such as: O:STAAUR Aerobic Culture Organism: 1.1 Antibiotic Interpretation ONEIL Status Organism: Staphylococcus aureus : Isolated Aerobic Culture Cefazolin, Cefepime, Cefotaxime, Cefotetan, Ceftaroline, O:STAAUR Aerobic Culture Organism: 1.1 Antibiotic Interpretation ONEIL Status Organism: Staphylococcus aureus : Isolated Aerobic Culture Ceftizoxime, Ceftriaxone, Cefuroxime O:STAAUR Aerobic Culture Organism: 1.1 Antibiotic Interpretation ONEIL Status Organism: Staphylococcus aureus : Isolated Aerobic Culture *Carbapenems, such as: O:STAAUR Aerobic Culture Organism: 1.1 Antibiotic Interpretation ONEIL Status Organism: Staphylococcus aureus : Isolated Aerobic Culture Doripenem, Ertapenem , Imipenem, Meropenem O:STAAUR Aerobic Culture Organism: 1.1 Antibiotic Interpretation ONEIL Status Organism: Staphylococcus aureus : Isolated Aerobic Culture Heavy growth O:STAAUR Aerobic Culture Organism: 1.1 Antibiotic Interpretation ONEIL Status Organism: Staphylococcus aureus : Isolated Aerobic Culture O:STAAUR Aerobic Culture Organism: 1.1 Antibiotic Interpretation ONEIL Status Organism: Staphylococcus aureus : Isolated Aerobic Culture Mixed skin ness O:STAAUR Aerobic Culture Organism: 1.1 Antibiotic Interpretation ONEIL Status Organism: Staphylococcus aureus : Isolated Aerobic Culture Light growth O:STAAUR Aerobic Culture Organism: 1.1 Antibiotic Interpretation ONEIL Status Organism: Staphylococcus aureus : Isolated Aerobic Culture See Below For Report O:STAAUR Aerobic Culture Organism: 1.1 Antibiotic Interpretation ONEIL Status Organism: Staphylococcus aureus : Isolated Aerobic Culture Performed at: [facility] O:STAAUR Aerobic Culture Organism: 1.1 Antibiotic Interpretation ONEIL Status Organism: Staphylococcus aureus : Isolated Aerobic Culture [address], [place] [id number] O:STAAUR Aerobic Culture Organism: 1.1 Antibiotic Interpretation ONEIL Status Organism: Staphylococcus aureus : Isolated Aerobic Culture Plant Etiologist: Kristel Pardo PhD, Phone: [phone] O:STAAUR Aerobic Culture Organism: 1.1 Antibiotic Interpretation ONEIL Status Organism: Staphylococcus aureus : Isolated Aerobic Culture See Below For Report O:STAAUR Aerobic Culture Organism: 1.1 Antibiotic Interpretation ONEIL Status Organism: Staphylococcus aureus : Isolated Aerobic Culture Ciprofloxacin S F O:STAAUR Aerobic Culture Organism: 1.1 Antibiotic Interpretation ONEIL Status Organism: Staphylococcus aureus : Isolated Aerobic Culture Erythromycin S F O:STAAUR Aerobic Culture Organism: 1.1 Antibiotic Interpretation ONEIL Status Organism: Staphylococcus aureus : Isolated Aerobic Culture Gentamicin S F O:STAAUR Aerobic Culture Organism: 1.1 Antibiotic Interpretation ONEIL Status Organism: Staphylococcus aureus : Isolated Aerobic Culture Levofloxacin S F O:STAAUR Aerobic Culture Organism: 1.1 Antibiotic Interpretation ONEIL Status Organism: Staphylococcus aureus : Isolated Aerobic Culture Linezolid S F O:STAAUR Aerobic Culture Organism: 1.1 Antibiotic Interpretation ONEIL Status Organism: Staphylococcus aureus : Isolated Aerobic Culture Moxifloxacin S F O:STAAUR Aerobic Culture Organism: 1.1 Antibiotic Interpretation ONEIL Status Organism: Staphylococcus aureus : Isolated Aerobic Culture Oxacillin S F O:STAAUR Aerobic Culture Organism: 1.1 Antibiotic Interpretation ONEIL Status Organism: Staphylococcus aureus : Isolated Aerobic Culture Penicillin R F O:STAAUR Aerobic Culture Organism: 1.1 Antibiotic Interpretation ONEIL Status Organism: Staphylococcus aureus : Isolated Aerobic Culture Rifampin S F O:STAAUR Aerobic Culture Organism: 1.1 Antibiotic Interpretation ONEIL Status Organism: Staphylococcus aureus : Isolated Aerobic Culture Tetracycline S F O:STAAUR Aerobic Culture Organism: 1.1 Antibiotic Interpretation ONEIL Status Organism: Staphylococcus aureus : Isolated Aerobic Culture Trimethoprim/Sulfame tho xazole S F O:STAAUR Aerobic Culture Organism: 1.1 Antibiotic Interpretation ONEIL Status Organism: Staphylococcus aureus : Isolated Aerobic Culture Vancomycin S F O:STAAUR Aerobic Culture Organism: 1.1 Antibiotic Interpretation ONEIL Status Organism: Staphylococcus aureus : Isolated Aerobic Culture Clindamycin S F O:STAAUR Aerobic Culture Organism: 1.1 Antibiotic Interpretation ONEIL Status Organism: Staphylococcus aureus : Isolated Performing Lab: see note LC - [facility] LB SEE REPORT - Knockout Worker Id information not found for OBX-specific event producer legend Reason For Referral Diagnosis 1 Elevated anti-strept olysin O antibodies (R76.8) Referral Organization [facility] Referring Provider First Name Rui Referring Provider Last Name [facility] Referring Provider [facility] Referred Provider Francois Jama Referred Provider Specialty Rheumatology Referral Priority Routine Diagnosis 1 Sacrococcygeal disor ders, not elsewhere classified (M53.3) Referral Organization [facility] Referring Provider First Name Rui Referring Provider Last Name [facility] Referring Provider [facility] Referred Provider Pain Management, TB Referred Provider Specialty Pain Medicin e Referral Priority Routine Diagnosis 1 Left hip pain (M25.5 52) Referral Organization [facility] Referring Provider First Name Rui Referring Provider Last Name [facility] Referring Provider [facility] Referred Provider Patricio Ledesma Referred Provider Specialty [...] Problem Status W/U Status Risk Notes Problem 43838459 Other chronic pa in (G89.29) Active confirmed Problem 172668571 Sacrococcygeal disorders, not elsewhere classified (M53.3) Active confirmed Problem 94607036 Paresthesia of skin (R20.2) Active confirmed Problem Weakness (52506395) Weakness (R53.1) Active confirmed Problem 9730558947 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 [address] 04/25/2025 Rui Hoy [facility] [address] [place] [address] 06/13/2025 Rui Hoy Left hip pain M25.55 2 [facility] [address] [place] [address] 06/25/2025 Rui Hoy Left hip pain M25.55 2 [facility] [address] [place] [address] 10/30/2024 Rui Hoy [facility] [address] [place] [address] 11/09/2024 Rui Hoy Paresthesia of skin R20.2 [facility] [address] [place] [address] 12/11/2024 Rui Hoy Paresthesia of skin R20.2 [facility] Rheumatology [address] [facility] [address] 01/09/2025 Jonathon Hernandez [facility] [address] [place] [address] 01/10/2025 Rui Hoy Paresthesia of skin R20.2 [facility] [address] [place] [address] 01/29/2025 Rui Hoy Paresthesia of skin R20.2 [facility] [address] [place] [address] 10/09/2024 Rui Hoy May-Thurner syndrome I87.1 [facility] [address] [place] [address] 10/09/2024 Rui Hoy Paresthesia of skin R20.2 [facility] [address] [place] [address] 10/10/2024 Rui Hoy [facility] [address] [place] [address] 10/11/2024 Rui Hoy Elevated anti-streptolysin O antibodies R76.8 [facility] [address] [place] [address] 10/22/2024 Rui Hoy [facility] [address] [place] [address] 10/27/2024 Rui Hoy [facility] [address] [place] [address] 07/26/2024 Rui Hoy Left hip pain M25.55 2 [facility] [address] [place] [address] 07/31/2024 Rui Hoy Streptobacillosis A2 5.1 [facility] [address] [place] [address] 08/04/2024 Rui Hoy [facility] [address] [place] [address] 08/09/2024 Rui Hoy Paresthesia of skin R20.2 [facility] [address] [place] [address] 09/04/2024 Rui Hoy [facility] [address] [place] [address] 09/11/2024 Rui Hoy Paresthesia of skin R20.2 [facility] [address] [place] [address] 07/13/2024 Rui Hoy Paresthesia of skin R20.2 [facility] [address] [place] [address] 07/23/2024 Rui Hoy Joint pain M25.50 [facility] [address] [place] [address] 07/19/2024 Rui Hoy Deep venous thrombos is I82.409 and May-Thurner syndrome I87.1 [facility] [address] [place] [address] 10/30/2024 Rui Hoy Fever R50.9 and Acut e bronchitis, unspecified organism J20.9 [facility] Rheumatology [address] [facility] [place] [address] 11/23/2024 Jonathon Gennaoui Pain in left hip M25 .552 ; Sacrococcygeal disorders, not elsewhere classified M53.3 ; Other chronic pain G89.29 and Trochanteric bursitis, left hip M70.62 [facility] [address] [place] [address] 11/09/2024 Rui Hoy Acute bronchitis, unspecified organism J20.9 [facility] [address] [place] [address] 06/13/2025 Rui Hoy Sacrococcygeal disorders, not elsewhere classified M53.3 and Left hip pain M25.552 [facility] [address] [place] [address] 01/11/2025 Rui Hoy Sacrococcygeal disorders, not elsewhere classified M53.3 [facility] [address] [place] [address] 08/22/2024 Yanni Ladarius [facility] [address] [place] [address] 06/12/2025 Yanni Durand Assessments Encounter Date Diagnosis [...] vaporizer to help keep the drainage moist. Hpom-pye-zflvqda Nasal Saline may help the stuffy and runny nose. Use Ibuprofen and or Tylenol as needed for fever, chills, body aches or pain. Children 5 years old should not be given kiwz-kbi-wkpifrg cough and cold medications such as guaifenesin and dextromethorphan. If you're over age 5, you may try eapy-dja-dqbscrs cold medications such as guaifenesin and dextromethorphan, [...] vaporizer to help keep the drainage moist. Pbmh-hov-lpwropy Nasal Saline may help the stuffy and runny nose. Use Ibuprofen and or Tylenol as needed for fever, chills, body aches or pain. Children 5 years old should not be given cojm-qyd-vgtmzzp cough and cold medications such as guaifenesin and dextromethorphan. If you're over age 5, you may try yxwh-kxe-qipmczh cold medications such as guaifenesin and dextromethorphan, [...] Durand , 06/11/2026 08:30:00 AM, [address] [place], [address], Insurance Providers Payer Name Payer Address Payer Phone Subscriber Number Group Number Insured Name Patient Relationship to Insured Coverage Start Date Coverage End Date [employer] PPO PLUS LOCAL PLAN [address] [place] [address] [id number] Kimberly Silverman Self - patient is [...]
--- OUTSIDE RECORDS SUMMARY | 2025-07-11 08:55 | XMS_ITS | Encounter Summary ---
Author Organization [facility] Address [address] [place] [address] Care Team Providers Care School Standards Coach Name Role Phone Dank Alvarez MD Primary Care Provider [phone] Deborah Perez [facility] Unavailable [phone] Encounter Details Date Type Department Care Team (Late Contact Info) Description 05/24/2024 Abstract [facility] MONTERO [address] [place] [id number] Andre Treviño DO [address], [facility] Social History Tobacco Use Types Packs/Day [...] Upcoming Encounters Date Type Department Care Team ([facility] Contact Info) Description 08/06/2025 10:00 AM EDT Office Visit [facility] [address] [facility] [place] [place] [phone] Andre Treviño DO [address], [place] [id number] documented as of this encounter Visit Diagnoses Not on filedocumented in this encounter Care Teams School Standards Coach Relationship Specialty Start Date End Date Dank Alvarez MD PCP - General Family Medicine 03/24/23 Deborah Perez, [facility] [address] [place] [address] Facilities Clerk Behavioral Health 01/08/25 05/07/25 documented as of this encounter
--- OUTSIDE RECORDS SUMMARY | 2025-07-11 09:05 | XMS_ITS | CCD ---
Author Organization 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 Name Role Phone RAIN ., DR MARY [...] Provider Usman Rodrigez MD Primary Care Provider [phone] Sydnee Alvarez PA-C Attending Provider Usman Rodrigez MD Primary Care Provider [phone] Usman Rodrigez MD Primary Care Provider [phone] Usman Rodrigez MD Primary Care Provider [phone] Chris [facility], Theresa L Unavailable ANDRE TREVIÑO Attending Unavailable CHRIS, THERESA Martinez Attending Unavailable BHARTI FRIED Attending Unavailable CHRIS, THERESA Martinez Attending Unavailable ANDRE TREVIÑO Attending Unavailable THERESA PEREZ Attending Unavailable ANDRE TREVIÑO Attending Unavailable THERESA PEREZ Attending Unavailable Julien HOYOS Referring Unavailable SYDNEE ALVAREZ Attending Unavailable SYDNEE ALVAREZ Attending Unavailable Julien HOYOS Admitting Unavailable HOYOSJulien R Attending Unavailable HOYOSJulien R Referring Unavailable HOYOSJulien Attending Unavailable HOYOSJulien Referring Unavailable USMAN RODRIGEZ Referring Unavailable USMAN RODRIGEZ Primary Care Unavailable JANI BRIDGES F Attending Unavailable USMAN RODRIGEZ M Referring Unavailable USMAN RODRIGEZ M Primary Care Unavailable Usman Rodrigez Primary Care Unavailable Sydnee Alvarez Attending Unavailable Sydnee Alvarez Admitting Unavailable Kirit Pierce MD Attending Unavailable Allergies Allergy Classification Reported Allergen(s) Allergy Type Date of Onset Reaction(s) Facility (1 source) No Known Medication Allergies; Translations: [No Known Medication Allergies] Propensity to adverse reactions (disorder) [facility] Repository Medications Current Medications Medication Drug [...] cystoscopy, # 1 tab(s), Refills(s) 0, Pharmacy: [facility]/pharmacy #[id number], 158, cm, 08/08/24 11:39:00 EDT, [...] capsule 1 capsule 05/26/2024 Active lactobacillus acidophilus [id number] unt / pectin 100 mg oral tablet (15 sources) take 1 tablet by mouth once daily at breakfast acidophilus-pect in, citrus 25 million cell -100 mg tablet Take 1 tablet by mouth daily with breakfast. Active End: 07-31-2024 take 1 tablet by mouth at mealtime Lactobacillus Acid-Pectin (Acidophilus/[place] Pectin) tablet Take 1 tablet by mouth [...] Daily, # 30 tab(s), Refills(s) 6, Pharmacy: [facility]/pharmacy #[id number], 158, cm, 08/08/24 11:39:00 EDT, Height/Length Dosing, 60, kg, 08/08/24 11:39:00 EDT, Weight Dosing Start Date: 10/03/24 Status: Ordered Nataliias Christianney Probiotic (4 sources) Start: 08-08-2024 Luis Enrique's [place] Probiotic Oral, Daily Start Date: 08/08/24 Status: Ordered Repeat number: 1 Start: 08-08-2024 Nataliias Bount y Probiotic Oral, Daily Start Date: 08/08/24 [...] Agonist Start: 01-07-2024 End: 07-31-2024 HYDROcodone-acetam inophen ([place]) 5-325 MG tablet TAKE 1 TABLET EVERY [...] procedure, # 2 tab(s), Refills(s) 0, Pharmacy: [facility]/pharmacy #[id number], 158, cm, 08/08/24 11:39:00 EDT, [...] visceral atherosclerosis (7 sources) Unspecified atherosclerosis of [place] arteries of extremities, other extremity; Translations: [Occlusion [...] Inferior Vena Cava and Illiac vesselson 05-23-2025 [place] [address] Ultrasound Report Signed Patient: TAWANA SILVERMAN MR#: [id number] : 1990 Acct:[id number] Age/Sex: 35 / F ADM Date: 05/23/25 Loc: US Attending Dr: Jani Bridges M.D. Ordering Physician: Jani Bridges M.D. Date of Service: 05/23/25 Procedure(s): US duplex IVC Accession Number(s): [id number] cc: Usman Rodrigez M.D.; Jani Bridges M.D. [place] [address] Patient Name: TAWANA SILVERMAN MRN: [id number] date: 1990 Sex: F Assigned Patient Location: US Current Patient Location: US Accession/Order Number: [id number] Exam Date: 05/23/2025 10:35 Report Date: 05/23/2025 [...] Lay M.D. 05/23/2025 10:38 AM Dictation Location: [place] [address] Electronically authenticated by: [id number] Y Date: 05/23/2025 10:38 Dictated By: Gaby Lay M.D. Signed By: 05/23/25 1041 DD/ 1038 TD/TT: Draw Press Operator: [facility] Radiology, Radiologist, MD - 05/23/2025 [place] [address] Ultrasound Report Signed Patient: TAWANA SILVERMAN MR#: [id number] : 1990 Acct:[id number] Age/Sex: 35 / F ADM Date: 05/23/25 Loc: US Attending Dr: Jani Bridges M.D. Ordering Physician: Jani Bridges M.D. Date of Service: 05/23/25 Procedure(s): US duplex IVC Accession Number(s): [id number] cc: Usman Rodrigez M.D.; Jani Bridges M.D. [place] [address] Patient Name: TAWANA SILVERMAN MRN: [facility]:[id number] date: 1990 Sex: F Assigned Patient Location: US Current Patient Location: US Accession/Order Number: [id number] Exam Date: 05/23/2025 10:35 Report Date: 05/23/2025 [...] Lay M.D. 05/23/2025 10:38 AM Dictation Location: [place] [address] Electronically authenticated by: [id number] Y Date: 05/23/2025 10:38 Dictated By: Gaby Lay M.D. Signed By: 05/23/25 1041 DD/ 1038 TD/TT: Draw Press Operator: [facility] [employer] Radiology Study observation (narrative) [facility] [employer] US.doppler Thoracic and Abdo rinku Aorta and Inferior Vena Cava and Illiac vesselsOrdered By: Radiologist Radiology on 05-23-2025 [employer] Work Phone: Urology Office/Clinic Noteon 12-26-2024 [...] improved. Has been doing PFPT at [facility] since August. Noticing a lot of improvement [...] E&M of Est. Patient Low 20-29 Min 67158 Urnls Dip Stick Auto w/o Microscopy POC 24351 Follow-up With When Contact Information [facility] Additional Instructions: Only if needed/new problems [...] 2024-08-08: TENIVAC GIVEN BY DR RODRIGEZ IN [place] poliovirus vaccine, inactivated 07/11/1997 Recorded measles/mumps/rubella virus [...] Dipstick: 2+ (100 mg/dl) (12/26/24 10:01:00) Specific [place] Urine Dipstick: 1.025 (12/26/24 10:01:00) Urine Appearance Urine Dipstick: Clear (12/26/24 10:01:00) Urine Color Urine Dipstick: Yellow (12/26/24 10:01:00) Urobilinogen Urine Dipstick: Normal 0.2-1 EU/dl (12/26/24 10:01:00) pH Urine Dipstick: 6.5 (12/26/24 10:01:00) Normal [facility] Comment on above: Result Comment: Elec tronically Signed By: SYDNEE ALVAREZ PA-C\.br\Date and Time Signed: 12/26/24 10:31 EST Main OR Preoperative Recordo n 11-13-2024 Main OR Preoperative Record Main OR Preoperative Record Holding Area Document Type FTURO Summary Primary Physician: Julien HOYOS MD Finalized Date/Time: 11/13/24 16:38:17 Pt. Name: TAWANA SILVERMAN Slim Mccormack./Sex: 1990 Female Med Rec #: [id number] Physician: Julien HOYOS MD Financial #: [id number] Pt. Type: O Room/Bed: / Admit/Disch: 10/03/24 [...] Complaints of Pain: No Skin Integrity Intact, [place], Warm, & Dry Vitals - EU Blood Pressure 109/72 Pulse 80 bpm Respirations 20 br/min SPO2 97 % Additional None RN Reviewed Yes Specimens Collected Last Modified By: Elizabet Grimm RN 10/03/24 09:45:24 Finalized By: GAGE Howell RN, Ruthann Document Signatures Signed By: Shalonda Jane LPN 10/03/24 09:28 GAGE Howell RN, Ruthann 11/13/24 16:38 Normal [facility] Main OR Intraoperative Recor don 10-03-2024 Main OR Intraoperative Record Main OR Intraoperative Record IntraOp Document Type FTURO Summary Primary Physician: Julien HOYOS MD Finalized Date/Time: 10/03/24 10:05:10 Pt. Name: TAWANA SILVERMAN Slim Martin/Sex: 1990 Female Med Rec #: [id number] Physician: Julien HOYOS MD Financial #: [id number] Pt. Type: O Room/Bed: / Admit/Disch: 10/03/24 08:53:48 - Institution: Case Times FTURO Entry 1 Patient Times In Room 10/03/24 09:43:00 Out Room 10/03/24 10:05:00 Procedure Times Start 10/03/24 09:55:00 Stop 10/03/24 10:00:00 Anesthesia Times Last Modified By: Sirisha CAROLIAN, Elizabet Pearson 10/03/24 10:00:11 Case Attendance FTURO Entry 1 Entry 2 Entry 3 Case Attendee ROMAIN NAVARRO, Julien Grimm RN, Elizabet Goldberg CST, Nel Pearson Role Performed Surgeon - Primary Mobile Practice Lead - Primary Scrub - Primary Time In [...] Elizabet Grimm RN Applicable) Yusuf Mosley CST, Nel Jason Time Out Complete 10/03/24 09:54:00 [...] By: Elizabet Grimm RN 10/03/24 10:05 Normal [facility] Operative Reporton Operative Report Operative Report [...] urine. The Urethra was dilated to: 30 Ben[place] w/ sounds. Devices Implanted: None. Removal: Cystoscope is removed, The patient tolerated it well. Postoperative Information Discharge: Patient is discharged home with antibiotic coverage, Follow up arranged. She will start Myrbetriq 50 mg daily. Follow-up will be in 4 months. Normal [facility] Comment on above: Result Comment: Elec tronically Signed By: Julien HOYOS MD\.br\Date and Time Signed: 10/03/24 10:11 EST IGP,APTIMA HPV,AGE GDLNon AGE GDLN ACOG TESTING Note . [facility] Comment on above: TESTS RESULT FLAG UN ITS REF RANGE LAB Clinician Provided Cytology Information Source.............Vagina No. of containers..01 ThinPrep Vial Age Leena LAZARO Eneida... 32 FLAG LEGEND: L-Low Normal,H-High Normal,LL-Alert Low,HH-Alert High <-Panic Low,>-Panic High,A-Abnormal,AA-Critical Abnormal Performed at: 01 =G [address] [address] Sandy Lemon MD, HPV APTIMA Negative Negative [facility] Comment on above: This nucleic acid am plification test detects fourteen high- risk HPV types (16,18,31,33,35,39,45,51,52,56,58,59,66,68) without differentiation. Performed at: =G - [facility] [id number] Repairer Engine Production: Sandy Lemon MD, Phone: [phone] Performed at: [facility] [address] [place], [place] [id number] Repairer Engine Production: Holden Croft MD, Phone: [phone] IGP, APTIMA HPV, RFX 16/18,45 Note . [facility] Comment on above: TESTS RESULT FLAG UN ITS REF RANGE LAB DIAGNOSIS: 02 NEGATIVE FOR INTRAEPITHELIAL LESION OR MALIGNANCY. Specimen adequacy: 02 Satisfactory for evaluation. Performed by: 02 Sola Aviles, Manager Behavior ([facility]) . 02 Note: Note 03 [...] High,A-Abnormal,AA-Critical Abnormal Performed at: 02 K[facility] [place] [address] [address] [place] [address] Holden Croft MD, 03 WB [facility] [address] [address] Sandy Lemon MD, SPATULA-ALONE VAGINA [facility] Health[facility] e No Panel Informationon 07-12 STAPHYLOCOCCUS [...] - righton 04-03-2024 Radiology Study observation (narrative) [facility] US.doppler Upper extremity v ein - rightOrdered By: Janet Almaguer on 04-03-2024 Radiology Study observation (narrative) [facility] US.doppler Lower extremity a rtery - righton 03-31-2024 [facility] US.doppler Upper extremity v ein - rightOrdered By: Janet Almaguer on 03-30-2024 [facility] BASIC METABOLIC PANLon 01-24 Anion gap [Moles/Vol] 7 mmol/L Normal 5-15 [facility] Comment on above: Performed By: #### C BCA, PINR, 90322-0, BMP #### [facility] ([id number]) [address], [address] [place] [address] Calcium [Mass/Vol] 8.7 mg/dL Normal 8.5-10.[address] [facility] Comment on above: Performed By: #### C BCA, PINR, 96559-2, BMP #### [facility] ([id number]) [address], [address] [place] [address] Chloride [Moles/Vol] 106 mmol/L Normal 98-109 [facility] Comment on above: Performed By: #### C BCA, PINR, 97858-6, BMP #### [facility] ([id number]) [address], [address] [place] [address] CO2 [Moles/Vol] 23 mmol/L Normal 22-32 [facility] Comment on above: Performed By: #### C BCA, PINR, 15442-4, BMP #### [facility] ([id number]) [address], [address] [place] [address] Creatinine [Mass/Vol] 0.57 mg/dL Normal 0.40-1.00 [facility] Comment on above: Result Comment: METH OD TRACEABLE TO IDMS STANDARD Performed By: #### C BCA, PINR, 53264-7, BMP #### [facility] ([id number]) [address], [address] [place] [address] eGFR (CKD-EPI) NON-RACE DEPENDENT >90 Normal >59 [facility] Comment on above: Result Comment: Reported eGFR is based on the CKD-EPI 2020 equation that does not use a race coefficient. Performed By: #### C BCA, PINR, 67579-0, BMP #### [facility] ([id number]) [address], [address] [place] [address] Glucose [Mass/Vol] 139 mg/dL High 65-[address] [facility] Comment on above: Performed By: #### C BCA, PINR, 79124-8, BMP #### [facility] ([id number]) [address], [address] [place] [address] Potassium [Moles/Vol] 4.3 mmol/L Normal 3.5-5.0 [facility] Comment on above: Performed By: #### C BCA, PINR, 36317-7, BMP #### [facility] ([id number]) [address], [address] [place] [address] Sodium [Moles/Vol] 136 mmol/L Normal 134-[address] [facility] Comment on above: Performed By: #### C BCA, PINR, 94764-8, BMP #### [facility] ([id number]) [address], [address] [place] [address] Urea nitrogen [Mass/Vol] 6 mg/dL Normal 5-23 [facility] Comment on above: Performed By: #### C BCA, PINR, 42929-5, BMP #### [facility] ([id number]) [address], [address] [place] [address] CBC AND AUTO DIFFon 01-25-20 24 ABSOLUTE BASOPHIL 0.0 X10E9/L Normal 0.0-0.[address] [facility] Comment on above: Performed By: #### C BCA, PINR, 57492-6, BMP #### [facility] ([id number]) [address], [address] [place] [address] ABSOLUTE NEUTROPHIL 2.9 X10E9/L Normal 1.5-6.6 [facility] Comment on above: Performed By: #### C BCA, PINR, 01271-2, BMP #### [facility] ([id number]) [address], [address] [place] [address] Basophils/100 WBC (Bld) 0.1 % Normal [facility] Comment on above: Performed By: #### C BRENNON PINR, 82769-6, BMP #### [facility] ([id number]) [address], [address] [place] [address] Eosinophils (Bld) [#/Vol] 0.0 10*3/uL Normal 0.0-0.4 [facility] Comment on above: Performed By: #### C BRENNON, PINR, 47084-0, BMP #### [facility] ([id number]) [address], [facility] [address] [place] [address] Eosinophils/100 WBC (Bld) 0.0 % Normal [facility] Comment on above: Performed By: #### C BRENNON PINR, 69510-7, BMP #### [facility] ([id number]) [address], [facility] [address] [place] [address] Erythrocyte distribution width (RBC) [Ratio] 11.8 % Normal 11.5-15.0 [facility] Comment on above: Performed By: #### Anastasiya WILLETT, PINR, 41249-3, BMP #### [facility] ([id number]) [address], [facility] [address] [place] [address] Hematocrit (Bld) [Volume fraction] 35.5 % Normal 35-47 [facility] Comment on above: Performed By: #### C BRENNON PINR, 22652-2, BMP #### [facility] ([id number]) [address], [facility] [address] [place] [address] Hemoglobin (Bld) [Mass/Vol] 12.3 g/dL Normal 11.7-15.5 [facility] Comment on above: Performed By: #### C BRENNON, PINR, 36577-5, BMP #### [facility] ([id number]) [address], [facility] [address] [place] [address] Lymphocytes (Bld) [#/Vol] 0.4 10*3/uL Low 1.0-3.5 [facility] Comment on above: Performed By: #### SADAF Langford BCA, 01785-6, BMP #### [facility] ([id number]) [address], [address] [place] [address] Lymphocytes/100 WBC (Bld) 13.1 % Normal [facility] Comment on above: Performed By: #### C SADAF WILLETT, 04094-0, BMP #### [facility] ([id number]) [address], [facility] [address] [place] [address] MCH (RBC) [Entitic mass] 32.3 pg Normal 27-34 [facility] Comment on above: Performed By: #### SADAF Langford BCA, 72803-0, BMP #### [facility] ([id number]) [address], [address] [place] [address] MCHC (RBC) [Mass/Vol] 34.6 g/dL Normal 32-36 [facility] Comment on above: Performed By: #### SADAF Langford BCA, 08574-9, BMP #### [facility] ([id number]) [address], [address] [place] [address] MCV (RBC) [Entitic vol] 94 fL Normal 80-100 [facility] Comment on above: Performed By: #### SADAF Langford BCA, 80405-0, BMP #### [facility] ([id number]) [address], [address] [place] [address] Monocytes (Bld) [#/Vol] 0.1 10*3/uL Normal 0-0.9 [facility] Comment on above: Performed By: #### SADAF Langford BCA, 56163-9, BMP #### [facility] ([id number]) [address], [address] [place] [address] Monocytes/100 WBC (Bld) 2.4 % Normal [facility] Comment on above: Performed By: #### SADAF Langford BCA, 49426-8, BMP #### [facility] ([id number]) [address], [facility] [address] [place] [address] Neutrophils/100 WBC (Bld) 84.4 % Normal [facility] Comment on above: Performed By: #### SADAF Langford BCA, 10136-7, BMP #### [facility] ([id number]) [address], [address] [address] Platelet mean volume (Bld) [Entitic vol] 9.1 fL Normal 7-12 [facility] Comment on above: Performed By: #### SADAF Langford BCA, 09517-1, BMP #### [facility] ([id number]) [address], [address] [address] Platelets (Bld) [#/Vol] 142 10*3/uL Low 150-450 [facility] Comment on above: Performed By: #### SADAF Langford BCA, 98752-0, BMP #### [facility] ([id number]) [address], [facility] [address] [place] [address] RBC COUNT 3.79 X10E12/L Low 3.80-5.20 [facility] Comment on above: Performed By: #### SADAF Langford BCA, 15328-8, BMP #### [facility] ([id number]) [address] [address] WBC (Bld) [#/Vol] 3.4 10*3/uL Low 4.0-11.[address] [facility] Comment on above: Performed By: #### SADAF Langford BCA, 75017-1, BMP #### [facility] ([id number]) [address], [facility] [address] [place] [address] Heparin unfractionated Chrom ogenic method Qn (PPP)on 01-25-2024 ANTI XA UFH 0.68 IU/mL Normal 0.30-0.70 [facility] Comment on above: Result Comment: Opti mal time for testing is 6 hrs post dosage This test is specific for monitoring patients on UFH, and is not recommended for use with other Anti-Xa medications. Performed By: #### C BCA, PINR, 03252-8, BMP #### [facility] ([id number]) [address], [address] [place] [address] ANTI CARDIOLIPIN AB IGG IGA IGMon 01-24-2024 MELBA IgA <2.0 Normal 0-19.9 [facility] Comment on above: Performed By: #### A Doreen HEATON #### [facility] ([id number]) [address], [address] [place] [address] MELBA IgG <1.6 Normal 0-19.9 [facility] Comment on above: Performed By: #### A CAChuckyG #### [facility] ([id number]) [address], [address] [place] [address] MELBA IgM <1.5 Normal 0-19.9 [facility] Comment on above: Performed By: #### Casie CAChuckyG #### [facility] ([id number]) [address], [address] [place] [address] BASIC METABOLIC PANLon 01-23 Anion gap [Moles/Vol] 8 mmol/L Normal 5-15 [facility] Comment on above: Performed By: #### 3 274-8, CBCA, BMP #### [facility] ([id number]) [address], [address] [place] [address] Calcium [Mass/Vol] 8.0 mg/dL Low 8.5-10.[address] [facility] Comment on above: Performed By: #### 3 274-8, CBCA, BMP #### [facility] ([id number]) [address], [address] [place] [address] Chloride [Moles/Vol] 106 mmol/L Normal 98-109 [facility] Comment on above: Performed By: #### 3 274-8, CBCA, BMP #### [facility] ([id number]) [address] [place] [address] CO2 [Moles/Vol] 22 mmol/L Normal 22-32 [facility] Comment on above: Performed By: #### 3 274-8, CBCA, BMP #### [facility] ([id number]) [address], [facility] [address] [place] [address] Creatinine [Mass/Vol] 0.53 mg/dL Normal 0.40-1.00 [facility] Comment on above: Result Comment: METH OD TRACEABLE TO IDMS STANDARD Performed By: #### 3 274-8, CBCA, BMP #### [facility] ([id number]) [address], [address] [place] [address] eGFR (CKD-EPI) NON-RACE DEPENDENT >90 Normal >59 [facility] Comment on above: Result Comment: Reported eGFR is based on the CKD-EPI 2020 equation that does not use a race coefficient. Performed By: #### 3 274-8, CBCA, BMP #### [facility] ([id number]) [address] [address] [place] [address] Glucose [Mass/Vol] 76 mg/dL Normal 65-[address] [facility] Comment on above: Performed By: #### 3 274-8, CBCA, BMP #### [facility] ([id number]) [address] [address] [place] [address] Potassium [Moles/Vol] 3.8 mmol/L Normal 3.5-5.0 [facility] Comment on above: Performed By: #### 3 274-8, CBCA, BMP #### [facility] ([id number]) [address], [address] [place] [address] Sodium [Moles/Vol] 136 mmol/L Normal 134-[address] [facility] Comment on above: Performed By: #### 3 274-8, CBCA, BMP #### [facility] ([id number]) [address], [address] [place] [address] Urea nitrogen [Mass/Vol] 10 mg/dL Normal 5-23 [facility] Comment on above: Performed By: #### 3 274-8, CBCA, BMP #### [facility] ([id number]) [address] [place] [address] BETA-2 GP1 AB PANELon 2023 BETA-2 GP1 IgA <2.0 Normal 0.0-19.9 [facility] Comment on above: Performed By: #### C BCA, PINR, 84139-9, BMP #### [facility] ([id number]) [address], [address] [place] [address] BETA-2 GP1 IgG <1.4 Normal 0.0-19.9 [facility] Comment on above: Performed By: #### C BCA, PINR, 25937-4, BMP #### [facility] ([id number]) [address], [address] [place] [address] BETA-2 GP1 IgM <1.5 Normal 0.0-19.9 [facility] Comment on above: Performed By: #### C BCA, PINR, 80632-7, BMP #### [facility] ([id number]) [address], [address] [place] [address] CBC AND AUTO DIFFon 01-24-20 24 ABSOLUTE BASOPHIL 0.0 X10E9/L Normal 0.0-0.[address] [facility] Comment on above: Performed By: #### 3 274-8, CBCA, BMP #### [facility] ([id number]) [address], [address] [place] [address] ABSOLUTE NEUTROPHIL 3.7 X10E9/L Normal 1.5-6.6 [facility] Comment on above: Performed By: #### 3 274-8, CBCA, BMP #### [facility] ([id number]) [address], [address] [place] [address] Basophils/100 WBC (Bld) 0.4 % Normal [facility] Comment on above: Performed By: #### 3 274-8, CBCA, BMP #### [facility] ([id number]) [address], [facility] [address] [place] [address] Eosinophils (Bld) [#/Vol] 0.2 10*3/uL Normal 0.0-0.4 [facility] Comment on above: Performed By: #### 3 274-8, CBCA, BMP #### [facility] ([id number]) [address] [place] [address] Eosinophils/100 WBC (Bld) 2.9 % Normal [facility] Comment on above: Performed By: #### 3 274-8, CBCA, BMP #### [facility] ([id number]) [address] [address] [place] [address] Erythrocyte distribution width (RBC) [Ratio] 12.3 % Normal 11.5-15.0 [facility] Comment on above: Performed By: #### 3 274-8, CBCA, BMP #### [facility] ([id number]) [address] [place] [address] Hematocrit (Bld) [Volume fraction] 36.4 % Normal 35-47 [facility] Comment on above: Performed By: #### 3 274-8, CBCA, BMP #### [facility] ([id number]) [address] [place] [address] Hemoglobin (Bld) [Mass/Vol] 12.4 g/dL Normal 11.7-15.5 [facility] Comment on above: Performed By: #### 3 274-8, CBCA, BMP #### [facility] ([id number]) [address], [facility] [address] [place] [address] Lymphocytes (Bld) [#/Vol] 1.9 10*3/uL Normal 1.0-3.5 [facility] Comment on above: Performed By: #### 3 274-8, CBCA, BMP #### [facility] ([id number]) [address], [facility] [address] [place] [address] Lymphocytes/100 WBC (Bld) 29.7 % Normal [facility] Comment on above: Performed By: #### 3 274-8, CBCA, BMP #### [facility] ([id number]) [address], [facility] [address] [place] [address] MCH (RBC) [Entitic mass] 32.5 pg Normal 27-34 [facility] Comment on above: Performed By: #### 3 274-8, CBCA, BMP #### [facility] ([id number]) [address], [facility] [address] [place] [address] MCHC (RBC) [Mass/Vol] 34.2 g/dL Normal 32-36 [facility] Comment on above: Performed By: #### 3 274-8, CBCA, BMP #### [facility] ([id number]) [address], [facility] [address] [place] [address] MCV (RBC) [Entitic vol] 95 fL Normal 80-100 [facility] Comment on above: Performed By: #### 3 274-8, CBCA, BMP #### [facility] ([id number]) [address], [facility] [address] [place] [address] Monocytes (Bld) [#/Vol] 0.5 10*3/uL Normal 0-0.9 [facility] Comment on above: Performed By: #### 3 274-8, CBCA, BMP #### [facility] ([id number]) [address] [place] [address] Monocytes/100 WBC (Bld) 8.2 % Normal [facility] Comment on above: Performed By: #### 3 274-8, CBCA, BMP #### [facility] ([id number]) [address] [place] [address] Neutrophils/100 WBC (Bld) 58.8 % Normal [facility] Comment on above: Performed By: #### 3 274-8, CBCA, BMP #### [facility] ([id number]) [address], [address] [place] [address] Platelet mean volume (Bld) [Entitic vol] 8.7 fL Normal 7-12 [facility] Comment on above: Performed By: #### 3 274-8, CBCA, BMP #### [facility] ([id number]) [address] [place] [address] Platelets (Bld) [#/Vol] 128 10*3/uL Low 150-450 [facility] Comment on above: Performed By: #### 3 274-8, CBCA, BMP #### [facility] ([id number]) [address] [place] [address] RBC COUNT 3.83 X10E12/L Normal 3.80-5.20 [facility] Comment on above: Performed By: #### 3 274-8, CBCA, BMP #### [facility] ([id number]) [address] [place] [address] WBC (Bld) [#/Vol] 6.4 10*3/uL Normal 4.0-11.[address] [facility] Comment on above: Performed By: #### 3 274-8, CBCA, BMP #### [facility] ([id number]) [address], [address] [place] [address] Heparin unfractionated Chrom ogenic method Qn (PPP)on 01-24-2024 ANTI XA UFH 0.47 IU/mL Normal 0.30-0.70 [facility] Comment on above: Result Comment: Opti mal time for testing is 6 hrs post dosage This test is specific for monitoring patients on UFH, and is not recommended for use with other Anti-Xa medications. Performed By: #### 3 274-8, CBCA, BMP #### [facility] ([id number]) [address], [address] [place] [address] dRVVT/dRVVT.excess phospholi pid Coag (PPP) [Ratio]on 01-24-2024 DILUTE VERONIKA'S [facility] VENOM Negative Normal [facility] Comment on above: Performed By: #### C BCA PINR, 98636-4, BMP #### [facility] ([id number]) [address], [address] [place] [address] BASIC METABOLIC PANLon 01-22 Anion gap [Moles/Vol] 11 mmol/L Normal 5-15 [facility] Comment on above: Performed By: #### C BCA, PINR, 32698-6, BMP #### [facility] ([id number]) [address], [address] [place] [address] Calcium [Mass/Vol] 8.3 mg/dL Low 8.5-10.[address] [facility] Comment on above: Performed By: #### C BCA, PINR, 07101-0, BMP #### [facility] ([id number]) [address], [address] [place] [address] Chloride [Moles/Vol] 106 mmol/L Normal 98-109 [facility] Comment on above: Performed By: #### C BCA, PINR, 05253-4, BMP #### [facility] ([id number]) [address], [address] [place] [address] CO2 [Moles/Vol] 21 mmol/L Low 22-32 [facility] Comment on above: Performed By: #### C BRENNON PINR, 38148-1, BMP #### [facility] ([id number]) [address] [place] [address] Creatinine [Mass/Vol] 0.65 mg/dL Normal 0.40-1.00 [facility] Comment on above: Result Comment: METH OD TRACEABLE TO IDMS STANDARD Performed By: #### C SADAF WILLETT, 44385-6, BMP #### [facility] ([id number]) [address], [address] [place] [address] eGFR (CKD-EPI) NON-RACE DEPENDENT >90 Normal >59 [facility] Comment on above: Result Comment: Reported eGFR is based on the CKD-EPI 2020 equation that does not use a race coefficient. Performed By: #### C BRENNON PINR, 31312-2, BMP #### [facility] ([id number]) [address] [place] [address] Glucose [Mass/Vol] 78 mg/dL Normal 65-[address] [facility] Comment on above: Performed By: #### C BRENNON PINR, 91320-3, BMP #### [facility] ([id number]) [address], [address] [place] [address] Potassium [Moles/Vol] 3.9 mmol/L Normal 3.5-5.0 [facility] Comment on above: Performed By: #### C BRENNON PINR, 58034-4, BMP #### [facility] ([id number]) [address], [address] [place] [address] Sodium [Moles/Vol] 138 mmol/L Normal 134-[address] [facility] Comment on above: Performed By: #### C BRENNON PINR, 81589-9, BMP #### [facility] ([id number]) [address] [place] [address] Urea nitrogen [Mass/Vol] 11 mg/dL Normal 5-23 [facility] Comment on above: Performed By: #### C BRENNON, PINR, 27685-0, BMP #### [facility] ([id number]) [address] [place] [address] CBC AND AUTO DIFFon 01-23-20 24 ABSOLUTE BASOPHIL 0.0 X10E9/L Normal 0.0-0.[address] [facility] Comment on above: Performed By: #### C BRENNON, PINR, 00500-2, BMP #### [facility] ([id number]) [address] [place] [address] ABSOLUTE NEUTROPHIL 6.6 X10E9/L Normal 1.5-6.6 [facility] Comment on above: Performed By: #### C BRENNON, PINR, 75367-7, BMP #### [facility] ([id number]) [address] [place] [address] Basophils/100 WBC (Bld) 0.3 % Normal [facility] Comment on above: Performed By: #### C BRENNON, PINR, 13531-9, BMP #### [facility] ([id number]) [address] [place] [address] Eosinophils (Bld) [#/Vol] 0.1 10*3/uL Normal 0.0-0.4 [facility] Comment on above: Performed By: #### C BRENNON, PINR, 21255-4, BMP #### [facility] ([id number]) [address] [place] [address] Eosinophils/100 WBC (Bld) 0.8 % Normal [facility] Comment on above: Performed By: #### C BRENNON PINR, 75736-4, BMP #### [facility] ([id number]) [address] [place] [address] Erythrocyte distribution width (RBC) [Ratio] 12.4 % Normal 11.5-15.0 [facility] Comment on above: Performed By: #### C BRENNON PINR, 11006-8, BMP #### [facility] ([id number]) [address], [address] [place] [address] Hematocrit (Bld) [Volume fraction] 39.4 % Normal 35-47 [facility] Comment on above: Performed By: #### C BRENNON PINR, 04478-8, BMP #### [facility] ([id number]) [address] [place] [address] Hemoglobin (Bld) [Mass/Vol] 13.8 g/dL Normal 11.7-15.5 [facility] Comment on above: Performed By: #### C BRENNON PINR, 51528-3, BMP #### [facility] ([id number]) [address] [place] [address] Lymphocytes (Bld) [#/Vol] 1.9 10*3/uL Normal 1.0-3.5 [facility] Comment on above: Performed By: #### Anastasiya WILLETT PINR, 30964-2, BMP #### [facility] ([id number]) [address] [place] [address] Lymphocytes/100 WBC (Bld) 20.6 % Normal [facility] Comment on above: Performed By: #### Anastasiya WILLETT PINR, 46166-1, BMP #### [facility] ([id number]) [address] [place] [address] MCH (RBC) [Entitic mass] 32.7 pg Normal 27-34 [facility] Comment on above: Performed By: #### C BRENNON PINR, 15985-7, BMP #### [facility] ([id number]) [address], [address] [place] [address] MCHC (RBC) [Mass/Vol] 34.9 g/dL Normal 32-36 [facility] Comment on above: Performed By: #### C BRENNON PINR, 88696-3, BMP #### [facility] ([id number]) [address] [place] [address] MCV (RBC) [Entitic vol] 94 fL Normal 80-100 [facility] Comment on above: Performed By: #### C BRENNON PINR, 42425-8, BMP #### [facility] ([id number]) [address] [place] [address] Monocytes (Bld) [#/Vol] 0.6 10*3/uL Normal 0-0.9 [facility] Comment on above: Performed By: #### Anastasiya WILLETT PINR, 65166-2, BMP #### [facility] ([id number]) [address] [place] [address] Monocytes/100 WBC (Bld) 6.0 % Normal [facility] Comment on above: Performed By: #### Anastasiya WILLETT PINR, 33784-2, BMP #### [facility] ([id number]) [address] [place] [address] Neutrophils/100 WBC (Bld) 72.3 % Normal [facility] Comment on above: Performed By: #### Anastasiya WILLETT, PINR, 54848-9, BMP #### [facility] ([id number]) [address] [place] [address] Platelet mean volume (Bld) [Entitic vol] 8.4 fL Normal 7-12 [facility] Comment on above: Performed By: #### C BCA, PINR, 74118-9, BMP #### [facility] ([id number]) [address] [place] [address] Platelets (Bld) [#/Vol] 156 10*3/uL Normal 150-450 [facility] Comment on above: Performed By: #### C BCA, PINR, 40750-4, BMP #### [facility] ([id number]) [address], [facility] [address] [place] [address] RBC COUNT 4.21 X10E12/L Normal 3.80-5.20 [facility] Comment on above: Performed By: #### C BCA, PINR, 28111-0, BMP #### [facility] ([id number]) [address], [address] [address] WBC (Bld) [#/Vol] 9.1 10*3/uL Normal 4.0-11.[address] [facility] Comment on above: Performed By: #### C BCA, PINR, 81244-6, BMP #### [facility] ([id number]) [address] [address] [address] CTV ABD AND PELVISon 01-13 CT [...] Hill MD on 01/23/2024 4:56 PM Normal [facility] Heparin unfractionated Chrom ogenic method Qn (PPP)on 01-23-2024 ANTI XA UFH 0.44 IU/mL Normal 0.30-0.70 [facility] Comment on above: Result Comment: Opti mal time for testing is 6 hrs post dosage This test is specific for monitoring patients on UFH, and is not recommended for use with other Anti-Xa medications. Performed By: #### 3 274-8 #### [facility] ([id number]) [address] [place] [address] PROTIME AND INRon 01-23-2024 INR Coag (PPP) [Relative time] 1.1 {INR} Normal 0.8-1.1 [facility] Comment on above: Performed By: #### C SADAF WILLETT, 75898-1, BMP #### [facility] ([id number]) [address] [place] [address] PT Coag (PPP) [Time] 12.3 s Normal 9.8-13.2 [facility] Comment on above: Performed By: #### C BRENNON PINR, 63231-9, BMP #### [facility] ([id number]) [address] [place] [address] aPTT Coag (PPP) [Time]on aPTT Coag (Bld) [Time] 51 s High 26-37 [facility] Comment on above: Performed By: #### C BCA, PINR, 11204-9, BMP #### [facility] ([id number]) [address] [facility] [place] [address] AMYLASEon 04-03-2023 Amylase [Catalytic activity/Vol] 62 U/L Normal 25-115 [facility] Comment on above: Performed By: #### L IPA, BHARTI ####[facility] [id number] [address]Dr[address] Reece Garg CBC AUTO DIFFon 04-03-2023 BASO # 0.0 103/ul Normal 0.0-0.1 [facility] Comment on above: Performed By: #### C BC #### [facility] [address] [address] [address] Reece Garg Basophils/100 WBC (Bld) 0.3 % Normal 0.2-2.0 [facility] Comment on above: Performed By: #### C BC #### [facility] [address] [address] [address] Reece Garg EO # 0.1 103/ul Normal 0.0-0.7 [facility] Comment on above: Performed By: #### C BC #### [facility] [address] [address] [address] Reece Garg Eosinophils/100 WBC (Bld) 0.6 % Critically low 0.9-7.0 [facility] Comment on above: Performed By: #### C BC #### [facility] [address] [address] [address] Reece Garg Erythrocyte distribution width (RBC) [Ratio] 11.9 % Normal 11.0-15.0 [facility] Comment on above: Performed By: #### C BC #### [facility] [address] [place] [address] Dr. Reece Garg Hematocrit (Bld) [Volume fraction] 37.7 % Normal 36.0-48.0 [facility] Comment on above: Performed By: #### C BC #### [facility] [address] [place] [address] Dr. Reece Garg Hemoglobin (Bld) [Mass/Vol] 12.9 g/dL Normal 12.0-16.0 [facility] Comment on above: Performed By: #### C BC #### [facility] [address] [place] [address] Dr. Reece Garg IG # 0.05 10e3/ul Critically high 0.00-0.03 [facility] Comment on above: Performed By: #### C BC #### [facility] [address] [place] [address] Dr. Reece Garg IG % 0.4 % Normal 0.0-0.5 [facility] Comment on above: Performed By: #### C BC #### [facility] [address] [place] [address] Dr. Reece Garg LYMPH # 2.3 103/ul Normal 1.2-3.8 [facility] Comment on above: Performed By: #### C BC #### [facility] [address] [place] [address] Dr. Reece Garg Lymphocytes/100 WBC (Bld) 20.8 % Normal 20.5-60.0 [facility] Comment on above: Performed By: #### C BC #### [facility] [address] [place] [address] Dr. Reece Garg MANUAL DIFF REQ NO Normal [facility] Comment on above: Performed By: #### C BC #### [facility] [address] [place] [address] Dr. Reece Garg MCH (RBC) [Entitic mass] 32.3 pg Normal 26.7-34.0 [facility] Comment on above: Performed By: #### C BC #### [facility] [address] [place] [address] Dr. Reece Garg MCHC (RBC) [Mass/Vol] 34.2 g/dL Normal 29.9-35.2 [facility] Comment on above: Performed By: #### C BC #### [facility] [address] [place] [address] Dr. Reece Garg MCV (RBC) [Entitic vol] 94.3 fL Normal 81.0-99.0 [facility] Comment on above: Performed By: #### C BC #### [facility] [address] [place] [address] Dr. Reece Garg MONO # 0.6 103/ul Normal 0.3-0.8 [facility] Comment on above: Performed By: #### C BC #### [facility] [address] [place] [address] Dr. Reece Garg Monocytes/100 WBC (Bld) 5.3 % Normal 1.7-12.0 [facility] Comment on above: Performed By: #### C BC #### [facility] [address] [place] [address] Dr. Reece Garg NEUT # 8.1 103/ul Critically high 1.4-6.5 [facility] Comment on above: Performed By: #### C BC #### [facility] [address] [place] [address] Dr. Reece Garg Neutrophils/100 WBC (Bld) 72.6 % Normal 43.0-75.0 [facility] Comment on above: Performed By: #### C BC #### [facility] [address] [place] [address] Dr. Reece Garg Platelet mean volume (Bld) [Entitic vol] 10.2 fL Normal 9.5-13.5 [facility] Comment on above: Performed By: #### C BC #### [facility] [address] [place] [address] Dr. Reece Garg PLT 163 103/ul Normal 150-450 [facility] Comment on above: Performed By: #### C BC #### [facility] [address] [place] [address] Dr. Reece Garg RBC 4.00 106/ul Critically low 4.20-5.40 [facility] Comment on above: Performed By: #### C BC #### [facility] [address] [place] [address] Dr. Reece Garg WBC 11.1 103/ul Critically high 4.0-11.0 [facility] Comment on above: Performed By: #### C BC #### [facility] [address] [address] [address] Reece Garg BASO # 0.0 103/ul Normal 0.0-0.1 [facility] Comment on above: Performed By: #### C BC #### [facility] [address] [address] [address] Reece Garg Basophils/100 WBC (Bld) 0.3 % Normal 0.2-2.0 [facility] Comment on above: Performed By: #### C BC #### [facility] [address] [address] [address] Reece Garg EO # 0.1 103/ul Normal 0.0-0.7 [facility] Comment on above: Performed By: #### C BC #### [facility] [address] [place] [address] Dr. Reece Garg Eosinophils/100 WBC (Bld) 0.7 % Critically low 0.9-7.0 [facility] Comment on above: Performed By: #### C BC #### [facility] [address] [address] [address] Reece Garg Erythrocyte distribution width (RBC) [Ratio] 12.0 % Normal 11.0-15.0 [facility] Comment on above: Performed By: #### C BC #### [facility] [address] [place] [address] Dr. Reece Garg Hematocrit (Bld) [Volume fraction] 41.4 % Normal 36.0-48.0 [facility] Comment on above: Performed By: #### C BC #### [facility] [address] [address] [address] Reece Garg Hemoglobin (Bld) [Mass/Vol] 14.3 g/dL Normal 12.0-16.0 [facility] Comment on above: Performed By: #### C BC #### [facility] [address] [address] [address] Reece Garg IG # 0.05 10e3/ul Critically high 0.00-0.03 [facility] Comment on above: Performed By: #### C BC #### [facility] [address] [place] [address] Dr. Reece Garg IG % 0.3 % Normal 0.0-0.5 [facility] Comment on above: Performed By: #### C BC #### [facility] [address] [place] [address] Dr. Reece Garg LYMPH # 1.6 103/ul Normal 1.2-3.8 [facility] Comment on above: Performed By: #### C BC #### [facility] [address] [place] [address] Dr. Reece Garg Lymphocytes/100 WBC (Bld) 10.6 % Critically low 20.5-60.0 [facility] Comment on above: Performed By: #### C BC #### [facility] [address] [place] [address] Dr. Reece Garg MANUAL DIFF REQ NO Normal [facility] Comment on above: Performed By: #### C BC #### [facility] [address] [place] [address] Dr. Reece Garg MCH (RBC) [Entitic mass] 32.1 pg Normal 26.7-34.0 [facility] Comment on above: Performed By: #### C BC #### [facility] [address] [place] [address] Dr. Reece Garg MCHC (RBC) [Mass/Vol] 34.5 g/dL Normal 29.9-35.2 [facility] Comment on above: Performed By: #### C BC #### [facility] [address] [place] [address] Dr. Reece Garg MCV (RBC) [Entitic vol] 93.0 fL Normal 81.0-99.0 [facility] Comment on above: Performed By: #### C BC #### [facility] [address] [place] [address] Dr. Reece Garg MONO # 0.7 103/ul Normal 0.3-0.8 [facility] Comment on above: Performed By: #### C BC #### [facility] [address] [place] [address] Dr. Reece Garg Monocytes/100 WBC (Bld) 4.7 % Normal 1.7-12.0 [facility] Comment on above: Performed By: #### C BC #### [facility] [address] [place] [address] Dr. Reece Garg NEUT # 12.9 103/ul Critically high 1.4-6.5 [facility] Comment on above: Performed By: #### C BC #### [facility] [address] [place] [address] Dr. Reece Garg Neutrophils/100 WBC (Bld) 83.4 % Critically high 43.0-75.0 [facility] Comment on above: Performed By: #### C BC #### [facility] [address] [place] [address] Dr. Reece Garg Platelet mean volume (Bld) [Entitic vol] 10.4 fL Normal 9.5-13.5 [facility] Comment on above: Performed By: #### C BC #### [facility] [address] [place] [address] Dr. Reece Garg PLT 194 103/ul Normal 150-450 [facility] Comment on above: Performed By: #### C BC #### [facility] [address] [place] [address] Dr. Reece Garg RBC 4.45 106/ul Normal 4.20-5.40 [facility] Comment on above: Performed By: #### C BC #### [facility] [address] [place] [address] Dr. Reece Garg WBC 15.4 103/ul Critically high 4.0-11.0 [facility] Comment on above: Performed By: #### C BC #### [facility] [address] [place] [address] ABD/PELV W CONon [...] LAVON ELIZALDE Date: 2023-04-03 01:36 Normal [facility] ER URINE PROFILEon 3 Bilirubin Ql (U) Negative Normal NEGATIVE [facility] Comment on above: Performed By: #### P REGUrban ERUR #### [facility] [address] [place] [id number] [address] Reece Garg Clarity (U) CLEAR Normal CLEAR [facility] Comment on above: Performed By: #### P REGU, ERUR #### [facility] [address] [place], [place] [address] Dr. Reece Garg Color (U) LT. YELLOW Normal YELLOW [facility] Comment on above: Performed By: #### P REGU, ERUR #### [facility] [address] [address] [address] Reece KHAN A micrscopic examination will be performed if indicated. Normal [facility] Comment on above: Performed By: #### P REGU, ERUR #### [facility] [address] [address] [address] Reece Garg Glucose Ql (U) Negative Normal NEGATIVE [facility] Comment on above: Performed By: #### P REGU, ERUR #### [facility] [address] [address] [address] Reece Garg Hemoglobin Ql (U) Negative Normal NEGATIVE [facility] Comment on above: Performed By: #### P REGU, ERUR #### [facility] [address] [place] [address] Dr. Reece Garg Ketones Ql (U) 15 mg/dl Abnormal NEGATIVE [facility] Comment on above: Performed By: #### P REGU, ERUR #### [facility] [address] [place] [address] Dr. Reece Garg LEUKOCYTES Negative Normal NEGATIVE [facility] Comment on above: Performed By: #### P REGU, ERUR #### [facility] [address] [place] [address] Dr. Reece Garg Nitrite Ql (U) Negative Normal NEGATIVE [facility] Comment on above: Performed By: #### P REGU, ERUR #### [facility] [address] [address] [address] Reece Garg pH (U) 5.5 [pH] Normal 5-9 [facility] Comment on above: Performed By: #### P REGU, ERUR #### [facility] [address] [address] [address] Reece Garg SPEC GRAVITY <=1.005 Abnormal 1.005-<=1.025 [facility] Comment on above: Performed By: #### P REGU, ERUR #### [facility] [address] [address] [address] Reece Garg UA PROTEIN Negative Normal NEGATIVE/ TRACE [facility] Comment on above: Performed By: #### P REGU, ERUR #### [facility] [address] [address] [address] Reece Garg UR MICRO IND NOT INDICATED Normal [facility] Comment on above: Performed By: #### P REGU, ERUR #### [facility] [address] [place] [address] Dr. Reece Garg Urobilinogen Qn (U) 0.2 {Dariel'U}/dL Normal 0.2 - 1. 0 [facility] Comment on above: Performed By: #### P REGU, ERUR #### [facility] [address] [place] [address] Dr. Reece Garg LIPASEon 04-03-2023 Lipase [Catalytic activity/Vol] 62.0 U/L Critically low 73.0-393.0 [facility] Comment on above: Performed By: #### L IPA, BHARTI ####[facility] [address] [address]Dr. Reece Garg MONOon 04-03-2023 Monocytes (Bld) [#/Vol] Negative Normal NEGATIVE [facility] Comment on above: Performed By: #### M JOSE DANIEL #### [facility] [address] [place] [address] Dr. Reece Garg URon 04-03-2023 , QUAL Negative Normal NEGATIVE [facility] Comment on above: Performed By: #### P REGU, ERUR #### [facility] [address] [place] [address] Dr. Reece Garg PROF 14(COMP METB)on 023 Albumin [Mass/Vol] 3.3 g/dL Critically low 3.4-5.0 [facility] Comment on above: Performed By: #### C MP #### [facility] [address] [place] [address] Dr. Reece Garg Albumin/Globulin [Mass ratio] 1.0 {ratio} Normal [facility] Comment on above: Performed By: #### C MP #### [facility] [address] [address] [address] Reece Garg ALP [Catalytic activity/Vol] 38 U/L Critically low 46-116 [facility] Comment on above: Performed By: #### C MP #### [facility] [address] [address] [address] Reece Garg ALT [Catalytic activity/Vol] 16 U/L Normal 14-59 [facility] Comment on above: Performed By: #### C MP #### [facility] [address] [address] [address] Reece Garg Anion gap [Moles/Vol] 10.7 mmol/L Normal [facility] Comment on above: Performed By: #### C MP #### [facility] [address] [place] [address] Dr. Reece Garg AST [Catalytic activity/Vol] 10 U/L Critically low 15-37 [facility] Comment on above: Performed By: #### C MP #### [facility] [address] [place] [address] Dr. Reece Garg Bilirubin [Mass/Vol] 1.0 mg/dL Normal 0.2-1.0 [facility] Comment on above: Performed By: #### C MP #### [facility] [address] [place] [address] Dr. Reece Garg Calcium [Mass/Vol] 8.2 mg/dL Critically low 8.5-10.1 [facility] Comment on above: Performed By: #### C MP #### [facility] [address] [place] [address] Dr. Reece Garg Chloride [Moles/Vol] 106 mmol/L Normal 98-107 [facility] Comment on above: Performed By: #### C MP #### [facility] [address] [place] [address] Dr. Reece Garg CO2 [Moles/Vol] 27.0 mmol/L Normal 21.0-32.0 [facility] Comment on above: Performed By: #### C MP #### [facility] [address] [address] [address] Reece Garg Creatinine [Mass/Vol] 0.77 mg/dL Normal 0.55-1.02 [facility] Comment on above: Performed By: #### C MP #### [facility] [address] [address] [address] Reece Garg EGFR-AF SCOTTISH >60 Normal >=60 [facility] Comment on above: Performed By: #### C MP #### [facility] [address] [address] [address] Reece Garg EGFR-NON AF SCOTTISH >60 Normal >=60 [facility] Comment on above: Performed By: #### C MP #### [facility] [address] [address] [address] Reece Garg Globulin (S) [Mass/Vol] 3.3 g/dL Normal [facility] Comment on above: Performed By: #### C MP #### [facility] [address] [address] [address] Reece Garg Glucose [Mass/Vol] 102 mg/dL Normal 74-106 [facility] Comment on above: Performed By: #### C MP #### [facility] [address] [place] [address] Dr. Reece Garg Potassium [Moles/Vol] 3.7 mmol/L Normal 3.5-5.1 [facility] Comment on above: Performed By: #### C MP #### [facility] [address] [address] [address] Reece Garg Protein [Mass/Vol] 6.6 g/dL Normal 6.4-8.2 [facility] Comment on above: Performed By: #### C MP #### [facility] [address] [place] [address] Dr. Reece Garg Sodium [Moles/Vol] 140 mmol/L Normal 136-145 [facility] Comment on above: Performed By: #### C MP #### [facility] [address] [place] [address] Dr. Reece Garg Urea nitrogen [Mass/Vol] 8.0 mg/dL Normal 7.0-18.0 [facility] Comment on above: Performed By: #### C MP #### [facility] [address] [place] [address] Dr. Reece Garg Urea nitrogen/Creatinine [Mass ratio] 10.4 mg/mg Normal [facility] Comment on above: Performed By: #### C MP #### [facility] [address] [place] [address] Dr. Reece Garg PROTIMEon 04-03-2023 INR Coag (PPP) [Relative time] 1.06 {INR} Normal [facility] Comment on above: Performed By: #### P TT, PT #### [facility] [address] [place] [address] Dr. Reece Garg INR GUIDELINES SEE BELOW Normal [facility] Comment on above: Result Comment: JJ RED INR: 2.0 - 3.0 CONDITIONS NOT LISTED BELOW 2.5 - 3.5 FOR PROSTHETIC HEART VALVE REPLACEMENT 2.5 - 3.5 RECURRENT THROMBOSIS Performed By: #### P TT, PT #### [facility] [address] [place] [address] Dr. Reece Garg PT Coag (PPP) [Time] 11.2 s Normal 9.0-11.6 [facility] Comment on above: Performed By: #### P TT, PT #### [facility] [address] [place] [address] Dr. Reece Garg PTTon 04-03-2023 aPTT Coag (Bld) [Time] 28.1 s Normal 22.3-36.2 [facility] Comment on above: Performed By: #### P TT, PT #### [facility] [address] [place] [address] Dr. Reece Garg PAP ACOG PANEL 2: 30 to 65on 07-28-2022 . . Normal [facility] Comment on above: Result Comment: Perf ormed at: WB Performed By: #### [id number] ####[facility] [address] [address]Dr. Reece Garg Age Gdln ACOG Testing 30-65 Normal [facility] Comment on above: Performed By: #### [id number] ####[facility] [address] [address]DrHardik Garg DIAGNOSIS: Comment Normal [facility] Comment on above: Result Comment: NEGA TIVE FOR INTRAEPITHELIAL LESION OR MALIGNANCY. Performed at: WB Performed By: #### [id number] ####[facility] [address] [address]DrHardik Garg HPV Aptima Negative Normal Negative [facility] Comment on above: Result Comment: This nucleic acid amplification test detects fourteen high-risk HPV types (16,18,31,33,35,39,45,51,52,56,58,59,66,68) without differentiation. Performed at: =G Performed By: #### [id number] ####[facility] [address] [place], [place] [address]DrHardik Garg Methodology: Comment Normal [facility] Comment on above: Result Comment: This liquid based ThinPrep(R) pap test was screened with the use of an image guided system. Performed at: WB Performed By: #### [id number] ####[facility] [address] [place], [place] [address]DrHardik Garg Note: Comment Normal [facility] Comment on above: Result [...] Performed at: WB Performed By: #### [id number] ####[facility] [address] [id number] Garg Performed by: Comment Normal [facility] Comment on above: Result Comment: Alexandra Cortez, Manager Behavior (ASCP) Performed at: WB Performed By: #### [id number] ####[facility] [address] [address]DrHardik Garg Specimen adequacy: Comment Normal [facility] Comment on above: Result Comment: Sati sfactory for evaluation. No endocervical component is identified. Performed at: WB Performed By: #### [id number] ####[facility] [address] [place], [place] [address]SpDr. Reece Garg VAGINITIS/VAGINOSIS DNA PROB Erwin 07-24-2022 Micheal species Negative Normal Negative [facility] Comment on above: Performed By: #### V AGINT #### [facility] [address] [address] [address] Reece Garg Gardnerella vaginalis Positive Abnormal Negative [facility] Comment on above: Performed By: #### V AGINT #### [facility] [address] [address] [address] Reece Garg Trichomonas vaginalis Negative Normal Negative [facility] Comment on above: Performed By: #### V AGINT #### [facility] [address] [address] [address] Reece Garg Vital Signs Date Time Vital Sign Value Performing Clinician Facility 05-31-2025 08:35-0400 Body mass index (BMI) [Ratio] 24.14 kg/m2 Jani Bridges MD Work Phone: [facility] 05-31-2025 08:35-0400 Body weight 59.88 kg Jani Bridges MD Work Phone: [facility] 05-31-2025 08:35-0400 Diastolic blood pressure 68 mm[Hg] Jani Bridges MD Work Phone: [facility] 05-31-2025 08:35-0400 Heart rate 62 /min Jani Bridges MD Work Phone: [facility] 05-31-2025 08:35-0400 Systolic blood pressure 102 mm[Hg] aJni Bridges MD Work Phone: [facility] 04-03-2025 09:37-0400 Body mass index (BMI) [Ratio] 24.51 kg/m2 Andre Treviño DO Work Phone: [facility] 04-03-2025 09:37-0400 Body weight 60.78 kg Andre Hudson DO Work Phone: [facility] 04-03-2025 09:37-0400 Diastolic blood pressure 70 mm[Hg] Andre Hudson DO Work Phone: [facility] 04-03-2025 09:37-0400 Systolic blood pressure 114 mm[Hg] Andre Hudson DO Work Phone: [facility] 12-26-2024 10:07-0500 Blood Pressure Location SYDNEE ALVAREZ [facility] 12-26-2024 10:07-0500 Diastolic blood pressure 90 mm[Hg] SYDNEE JAMARI [facility] 12-26-2024 10:07-0500 Heart rate 70 /min SYDNEE TOBARRY [facility] 12-26-2024 10:07-0500 Systolic blood pressure 130 mm[Hg] SYDNEE JAMARI [facility] 08-31-2024 10:09-0400 Body mass index (BMI) [Ratio] 24.11 kg/m2 Andre Hudson DO Work Phone: [facility] 08-31-2024 10:09-0400 Body weight 59.78 kg Andre Hudson DO Work Phone: [facility] 08-31-2024 10:09-0400 Diastolic blood pressure 70 mm[Hg] Andre Hudson DO Work Phone: [facility] 08-31-2024 10:09-0400 Systolic blood pressure 110 mm[Hg] Andre Hudson DO Work Phone: [facility] 08-08-2024 11:15-0400 Blood Pressure Location SYDNEE JAMARI [facility] 08-08-2024 11:15-0400 Diastolic blood pressure 63 mm[Hg] SYDNEE JAMARI [facility] 08-08-2024 11:15-0400 Heart rate 61 /min SYDNEE JAMARI [facility] 08-08-2024 11:15-0400 Respiratory rate 19 /min SYDNEE JAMARI [facility] 08-08-2024 11:15-0400 Systolic blood pressure 96 mm[Hg] SYDNEE JAMARI [facility] 07-31-2024 09:53-0400 Body height 157.5 cm Andre Hudson DO Work Phone: [facility] 07-31-2024 09:53-0400 Body mass index (BMI) [Ratio] 23.96 kg/m2 Andre Hudson DO Work Phone: [facility] 07-31-2024 09:53-0400 Body weight 59.42 kg Andre Hudson DO Work Phone: [facility] 07-31-2024 09:53-0400 Diastolic blood pressure 68 mm[Hg] Andre Hudson DO Work Phone: [facility] 07-31-2024 09:53-0400 Systolic blood pressure 102 mm[Hg] Andre Hudson DO Work Phone: [facility] 07-10-2024 16:25-0400 Body mass index (BMI) [Ratio] 24.29 kg/m2 Bharti RIBEIRO Work Phone: [facility] 07-10-2024 16:25-0400 Body weight 60.24 kg Bharti RIBEIRO Work Phone: [facility] 05-25-2024 08:43-0400 Body height 157.5 cm Jani Bridges MD Work Phone: [facility] 05-25-2024 08:43-0400 Body mass index (BMI) [Ratio] 23.78 kg/m2 Jani Bridges MD Work Phone: [facility] 05-25-2024 08:43-0400 Body weight 58.97 kg Jani Bridges MD Work Phone: [facility] 05-25-2024 08:43-0400 Diastolic blood pressure 68 mm[Hg] Jani Bridges MD Work Phone: [facility] 05-25-2024 08:43-0400 Heart rate 66 /min Jani Bridges MD Work Phone: [facility] 05-25-2024 08:43-0400 SaO2% (BldA) [Mass fraction] 98 % Jani Bridges MD Work Phone: [facility] 05-25-2024 08:43-0400 Systolic blood pressure 97 mm[Hg] Jani Bridges MD Work Phone: [facility] Encounters Encounter Date Encounter Type Care Provider Facility Start: 07-02-2025 End: 07-02-2025 ambulatory Kirit Pierce MD Facility:[facility] Start: 05-31-2025 End: 05-31-2025 Office outpatient visit 25 minutes Jani Bridges MD Work Phone: [facility] Comment on above: 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); Acute deep vein thrombosis (DVT) of iliac vein of left lower extremity ([facility]) Start: 05-31-2025 End: 05-31-2025 ambulatory JANI BRIDGES [facility] Start: 05-30-2025 ambulatory USMAN Byrd Vero [facility] Start: 05-23-2025 End: 05-23-2025 Clinisync [...] 04-04-2025 End: 04-04-2025 ambulatory Julien HOYOS Facility: [facility] Start: 04-04-2025 End: 04-04-2025 Patient encounter procedure Julien Slim ROMAIN [facility] Start: 04-03-2025 End: 04-03-2025 Bamboo flowsheet Andre [...] 02-19-2025 ambulatory Usman Rodrigez MD Work Phone: [facility] Work Phone: Start: 02-19-2025 End: 02-19-2025 Discharged Recurring Usman Rodrigez MD Work Phone: [facility] Start: 12-26-2024 End: 02-11-2025 ambulatory [facility] Start: 12-26-2024 End: 12-26-2024 Patient encounter procedure SYDNEE E JAMARI [facility] Start: 10-03-2024 End: 10-03-2024 ambulatory Julien HOYOS Facility:[facility] Start: 10-03-2024 End: 10-03-2024 Patient encounter procedure Julien HOYOS [facility] Start: 09-20-2024 End: 09-20-2024 Bamboo flowsheet Theresa Perez [facility] Work Phone: [facility] Start: 09-20-2024 End: 09-20-2024 Bamboo flowsheet Theresa Perez [facility] Work Phone: [facility] Start: 09-20-2024 End: 09-20-2024 Social Work Theresa Perez [facility] Work Phone: [facility] Comment on above: IRVING (generalized anx [...] Available Start: 08-10-2024 End: 08-10-2024 Bamboo flowsheet Theresajessica Perez [facility] Work Phone: [facility] Start: 08-10-2024 End: 08-10-2024 Bamboo flowsheet Theresa Perez [facility] Work Phone: [facility] Start: 08-10-2024 End: 08-10-2024 Social Work Theresa Perez [facility] Work Phone: [facility] Comment on above: IRVING (generalized anx iety disorder) ([facility]) Start: 08-08-2024 End: 08-08-2024 ambulatory SYDNEE ALVAREZ Facility:[facility] Start: 08-08-2024 End: 08-08-2024 Patient encounter procedure SYDNEE Masha JAMARI [facility] Start: 08-03-2024 ambulatory Julien HOYOS Facility :[facility] Start: 08-03-2024 End: 08-03-2024 ambulatory ANDRE [...] End: 07-18-2024 Bamboo flowsheet Theresa Perez [facility] Work Phone: [facility] Start: 07-18-2024 End: 07-18-2024 Bamboo flowsheet Theresa Perez [facility] Work Phone: [facility] Start: 07-18-2024 End: 07-18-2024 Social Work Theresa Perez [facility] Work Phone: [facility] Comment on above: IRVING (generalized anx iety disorder) ([facility]) Start: 07-10-2024 End: 07-10-2024 Office outpatient visit 15 minutes Bharti RIBEIRO Work Phone: [facility] Comment on above: UTI symptoms; Vaginal discharge; STD exposure Start: 07-10-2024 End: 07-10-2024 ambulatory BHARTI FRIED Not Available Start: 07-10-2024 End: 07-12-2024 External Result Encounter Bharti RIBEIRO Work Phone: [facility] External Department Unsolicited Start: 07-10-2024 End: 07-12-2024 External Result Encounter Bharti RIBEIRO Work Phone: [facility] External Department Unsolicited Start: 06-29-2024 End: 06-29-2024 Social Work Theresa Perez [facility] Work Phone: [facility] Comment on above: IRVING (generalized anx iety disorder) ([facility]) Start: 05-25-2024 End: 05-25-2024 Office outpatient visit 25 minutes Jani Bridges MD [facility]: [facility] Comment on above: 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); Acute deep vein thrombosis (DVT) of iliac vein of left lower extremity (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 ([facility]) Start: 04-27-2024 ambulatory [facility] Start: 04-03-2024 End: 04-11-2024 Orders Only Not In System Ref Prov [facility] Start: 02-10-2024 End: 02-10-2024 Office outpatient visit 15 minutes Jani Bridges MD Work Phone: [facility] Comment on above: Acute deep vein thro mbosis (DVT) of iliac vein of left lower extremity ([facility]) (Primary Dx); May-Thurner syndrome Start: 02-10-2024 ambulatory [facility] Start: 01-26-2024 End: 01-26-2024 [facility] Start: 01-24-2024 End: 01-26-2024 Evaluation and management of inpatient [facility] Start: 01-24-2024 End: 01-24-2024 ambulatory DL BUCK [facility] Start: 01-24-2024 ambulatory [facility] Start: 01-23-2024 End: 01-26-2024 Evaluation and management of inpatient STEPHEN [facility] Start: 01-23-2024 End: 01-25-2024 Evaluation and management of inpatient [facility] Start: 04-03-2023 End: 04-03-[address] USMAN RODRIGEZ . Facility:[facility] Start: 07-26-2022 Encounter for gynecological examination (general) (routine) without abnormal findings DR EARLENE MCDONOUGH . [facility] Start: 07-22-2022 End: 07-22-2022 ambulatory [...] partial Start: 11-15-2023 Removal of thrombus ROXANE ALVAREZ Start: 08-24-2023 Microscopic observat ion [Identifier] in Cervix by Cyto stain Jani Bridges MD Work Phone: H/O: hysterectomy SYDNEE VELAZQUEZ History of appendectomy ADITI ALVAREZ Laparoscope, device (physical object) SYDNEE ALVAREZ Comment on above: pelvic Plan of Treatment Date Care Activity Detail Author Start: 08-24-2028 Screening for malign ant neoplasm of cervix [facility] Start: 07-31-2027 Screening for malign ant neoplasm of cervix Pap Smear [facility] [facility] Start: 08-24-2026 Screening for malign ant neoplasm of cervix Pap Smear [facility] Start: 06-06-2026 End: 06-06-2026 Patient encounter procedure 06/06/2026 8:30 AM EDT Office Visit [facility]ly [facility] [address] [place] [address] Jani Bridges MD [address], [facility] [address] [place] [address] [facility]ly [facility] Start: 05-31-2026 Adult BMI Screening Adult BMI Screen ing [facility] Start: 05-31-2026 Tobacco Screening Tobacco Screening [facility] Start: 05-27-2026 End: 05-27-2026 Patient encounter procedure 05/27/2026 8:30 AM EDT Appointment [facility] [address] [place] [id number] Jani Bridges MD [address], [facility] [address] [place] [address] [facility] Start: 08-06-2025 End: 08-06-2025 Patient encounter procedure 08/06/2025 10:00 AM EDT Office Visit [facility] [address] [place] [phone] Andre Treviño DO [address] [place] [address] [facility] Start: 07-16-2025 Influenza vaccination P [facility] Start: 05-31-2025 End: 05-31-2026 US.doppler Thoracic and Abdominal Aorta and Inferior Vena Cava and Illiac vessels Vas IVC/iliac duplex complete Vascular Ultrasound Routine May-Thurner syndrome Acute deep vein thrombosis (DVT) of iliac vein of left lower extremity (CMS-HCC) Expected: 05/31/2025, Expires: 05/31/2026 [facility] Work Phone: Comment on above: Expected: 05/31/2025 , Expires: 05/31/2026 Start: 05-25-2025 Adult BMI Screening Adult BMI Screen ing [facility] Start: 05-25-2025 Tobacco Screening Tobacco Screening [facility] Start: 05-24-2025 End: 05-24-2025 Patient encounter procedure 05/24/2025 8:30 AM EDT Office Visit [facility] [address] [facility] [place] [address] Jani Bridges MD [address], [address] [place] [address] [facility] Start: 04-17-2025 End: 04-17-2025 Patient encounter procedure 04/17/2025 8:00 AM EDT Office Visit [facility] [address] [place] [phone] Andre Treviño, DO [address] [facility] [address] [place], [place] [id number] [facility] Start: 04-03-2025 End: 04-03-2025 Patient encounter procedure 04/03/2025 9:20 AM EDT Office Visit [facility] [address] [place] [phone] Andre Treviño, DO [address] [place] [address] Arrived [facility] Comment on above: Arrived Start: 02-13-2025 Adult BMI Screening Adult BMI Screen ing [facility] Start: 02-13-2025 Tobacco Screening Tobacco Screening [facility] Start: 01-24-2025 Adult BMI Screening Adult BMI Screen ing [facility] Start: 01-23-2025 Tobacco Screening Tobacco Screening [facility] Start: 01-22-2025 Depression Screening Depression Scre ening [facility] Start: 10-17-2024 End: 10-17-2024 Social Work 10/17/2024 11:00 AM EST Social Work [facility] [address] [place] [address] Theresa Perez, [facility] [address] [place] [address] [facility] Start: 09-20-2024 End: 09-20-2024 Social Work 09/20/2024 8:00 AM EST Social Work [facility] [address] [place] [address] Theresa Perez, [facility] [address] [place] [address] Arrived [facility] Comment on above: Arrived Start: 09-06-2024 End: 09-06-2024 Social Work 09/06/2024 2:00 PM EDT Social Work [facility] [address] [place] [address] Theresa Perez, [facility] [address] [place] [address] [facility] Start: 08-31-2024 End: 08-31-2024 Patient encounter procedure [facility] Comment on above: Arrived Start: 08-30-2024 End: 08-30-2024 Social Work 08/30/2024 9:00 AM EDT Social Work [facility] [address] [place] [address] Theresa Perez, [facility] [address] [place] [address] [facility] Start: 08-10-2024 End: 08-10-2024 Social Work [facility] Comment on above: Arrived Start: 07-31-2024 End: 07-31-2024 Patient encounter procedure [facility] Comment on above: Arrived Start: 07-18-2024 End: 07-18-2024 Social Work 07/18/2024 11:00 AM EDT Social Work [facility] [address] [place] [address] Theresa Perez, [facility] [address] [place] [address] [facility] Start: 07-16-2024 COVID-19 Vaccine () COVID-19 Vaccine () [facility] Start: 07-16-[address] [facility] Start: 05-25-2024 End: 05-25-2024 Patient encounter procedure 05/25/2024 8:50 AM EDT Office Visit [facility] [address] [place] [address] Jani Bridges MD [address], [address] [address] [facility] Start: 05-11-2024 End: 05-11-2024 Patient encounter procedure 05/11/2024 10:00 AM EDT Office Visit [facility] [address] [place] [address] Jani Bridges MD [address], [facility] [address] [place] [address] [facility] [...] iliac vein of left lower extremity ([facility]) May-Thurner syndrome Expected: 02/25/2024 (Approximate), Expires: 02/10/2025 [facility] Work Phone: Comment on above: Expected: 02/25/2024 (Approximate), Expires: 02/10/2025 Start: 07-16-2023 Influenza vaccination Influenza Vacc ine [facility] Start: 02-14-2019 DTaP,Tdap and Td Vaccines (6 - Tdap) DTaP,Tdap and Td Vaccines (6 - Tdap) [facility] Start: 2013 Screening for malign ant neoplasm of cervix Pap Smear [facility] Start: 2010 Adult BMI Follow Up Plan Adult BMI Follow Up Plan [facility] Aerobic culture Aerobic culture Microbiology Routine Nipple discharge Nipple infection in female Ordered: 04/03/2025 [facility] Comment on above: Ordered: 04/03/2025 Anaerobic culture Anaerobic cult ure Microbiology Routine Nipple discharge Nipple infection in female Ordered: 04/03/2025 [facility] [employer] Work Phone: Comment on above: Ordered: 04/03/2025 Bacteria identified in Urine by Culture Urine culture Microbiology Routine UTI symptoms Ordered: 07/11/2024 [facility] Comment on above: Ordered: 07/11/2024 End: 04-27-2025 C-reactive protein C-reactive protein Lab Routine 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) 1 Occurrences starting 04/27/2024 until 04/27/2025 [facility] Comment on above: 1 Occurrences starti ng 04/27/2024 until 04/27/2025 CHLAMYDIA TRACHOMATI S (GENITO/STI) CHLAMYDIA TRACHOMATIS (GENITO/STI) Lab Routine Chronic bladder pain Ordered: 07/31/2024 [facility] Comment on above: Ordered: 07/31/2024 CHLAMYDIA TRACHOMATI S (GENITO/STI) CHLAMYDIA TRACHOMATIS (GENITO/STI) Lab Routine STD exposure Ordered: 07/11/2024 [facility] Comment on above: Ordered: 07/11/2024 Cytology Cervical or vaginal smear or scraping study Pap Smear Pathology and Cytology Routine Well woman exam with routine gynecological exam Ordered: 07/31/2024 [facility] Work Phone: Comment on above: Ordered: 07/31/2024 End: 04-27-2025 Erythrocyte sedimentation rate Erythrocyte Sedimentation Rate (ESR) Lab Routine 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) 1 Occurrences starting 04/27/2024 until 04/27/2025 [facility] Comment on above: 1 Occurrences starti ng 04/27/2024 until 04/27/2025 Human papilloma viru s DNA [Presence] in Unspecified specimen by Probe with amplification HPV DNA probe, amplified Microbiology Routine Well woman exam with routine gynecological exam Ordered: 07/31/2024 [facility] Comment on above: Ordered: 07/31/2024 Neisseria gonorrhoea e DNA [Presence] in Unspecified specimen by MÓNICA with probe detection Neisseria gonorrhea DNA probe, direct Lab Routine Chronic bladder pain Ordered: 07/31/2024 [facility] Comment on above: Ordered: 07/31/2024 Neisseria gonorrhoea e DNA [Presence] in Unspecified specimen by MÓNICA with probe detection Neisseria gonorrhea DNA probe, direct Lab Routine STD exposure Ordered: 07/11/2024 [facility] Comment on above: Ordered: 07/11/2024 SURESWAB(R) ADVANCED VAGINITIS PLUS, TMA SURESWAB(R) ADVANCED VAGINITIS PLUS, TMA Pathology and Cytology Routine Chronic bladder pain Ordered: 07/31/2024 [facility] Comment on above: Ordered: 07/31/2024 SURESWAB(R) ADVANCED VAGINITIS PLUS, TMA SURESWAB(R) ADVANCED VAGINITIS PLUS, TMA Pathology and Cytology Routine Vaginal discharge Ordered: 07/11/2024 [facility] Work Phone: Comment on above: Ordered: 07/11/2024 Immunizations Immunization Date Immunization Notes Care Provider Сергей cheung 05-13-2021 SARS-CoV-2 (COVID-19 ) mRNA BNT-162b2 shanice ALVAREZ [facility] 04-22-2021 SARS-CoV-2 (COVID-19 ) mRNA BNT-162b2 shanice ALVAREZ [facility] 07-04-2019 hepatitis B vaccine, adult dosage SYDNEE JAMARI [facility] 05-02-2019 hepatitis B vaccine, adult dosage SYDNEE JAMARI [facility] 02-28-2019 hepatitis B vaccine, adult dosage SYDNEE JAMARI [facility] 02-13-2019 Td(adult) unspecifie d formulation SYDNEE JAMARI [facility] Comment on above: Result Comment: 2023: TENIVAC GIVEN BY DR RODRIGEZ IN [place] 07-11-1997 diphtheria, tetanus toxoids and acellular pertussis vaccine SYDNEE JAMARI [facility] 07-11-1997 measles, mumps and rubella virus vaccine SYDNEE JAMARI [facility] 07-11-1997 poliovirus vaccine, unspecified formulation SYDNEE JAMARI [facility] 06-23-1993 Hib, unspecified formulation SYDNEE JAMARI [facility] 06-23-1993 measles, mumps and rubella virus vaccine SYDNEE JAMARI [facility] 06-23-1993 poliovirus vaccine, unspecified formulation SYDNEE JAMARI [facility] 1992 Hib, unspecified formulation SYDNEE JAMARI [facility] 1992 Hib, unspecified formulation SYDNEE JAMARI [facility] 1992 poliovirus vaccine, unspecified formulation SYDNEE JAMARI [facility] 1992 Hib, unspecified formulation SYDNEE JAMARI [facility] 1992 poliovirus vaccine, unspecified formulation SYDNEE JAMARI [facility] Payers Date Payer Category Payer Self-pay 2024 Unknown [id number] 2022 [employer] [facility] - Other [id number] 2022 Private Health Insurance [id number] 2022 Unknown [id number]. 1.13.693.2.7.3.61405 1.315 2007 Unknown [id number] 1992 Unknown [id number] 2.16.840.1.205365.3.579.2.593 1992 Unknown [id number] 2.16.840.1.214629.3.579.2.593 1992 Unknown [id number] 2.16.840.1.525660.3.579.2.1286 1992 Unknown [id number] 2.16.840.1.770329.3.579.2.1286 1992 Unknown [id number] 2.16.840.1.544898.3.579.2.1285 1992 Unknown [id number] 2.16840.1.955791.3.579.2.1285 1992 Unknown [id number] 2.16840.1.020790.3.579.2.1285 1992 Unknown [id number] 2.840.1.503778.3.579.2.1285 1992 Unknown [id number] 2.840.1.638291.3.579.2.1285 1992 Unknown [id number] 2.0.1.283911.3.579.2.1285 1992 Unknown [id number] 2.840.1.653736.3.579.2.1285 1992 Unknown [id number] 2..1.825604.3.579.2.1285 1992 Unknown [id number] 2.0.1.828483.3.579.2.1258 1992 Unknown [id number] 2..1.835096.3.579.2.1258 1992 Unknown [id number] 2.840.1.151606.3.579.2.1258 1992 Unknown [id number] 2..1.074451.3.579.2.1258 1992 Unknown [id number] 2.840.1.623939.3.579.2.1258 1992 Unknown [id number] 2.840.1.966420.3.579.2.1258 1992 Unknown [id number] 2.840.1.434222.3.579.2.1258 1992 Unknown [id number] 2.840.1.377969.3.579.2.1258 1992 Unknown [id number] 2.16.840.1.381854.3.579.2.1259 1992 Unknown [id number] 2.16.840.1.146745.3.579.2.727 1992 Unknown [id number] 2.16.840.1.503085.3.579.2.727 1992 Unknown [id number] 2.16.840.1.543696.3.579.2.727 1992 Unknown [id number] 2.16.840.1.426241.3.579.2.727 1992 Unknown [id number] 2.16.840.1.307136.3.579.2.727 1992 Unknown [id number] 2.16.840.1.307710.3.579.2.1286 1992 Unknown [id number] 2.16.840.1.475362.3.579.2.1286 1992 Unknown [id number] 2.16.840.1.793250.3.579.2.196 1959 Medicaid [id number] 1959 Unknown [id number] 1959 Unknown [id number] 1959 Unknown [id number] Unknown [id number] Unknown [id number] 2.16.840.1.972499.3.579.2.531 Social History Date Type Detail Facility Start: 01-23-2024 End: 08-08-2024 Tobacco smoking status Ex-smoker (finding) [facility] Start: 12-26-2020 End: 07-31-2024 Sex Assigned At Unknown [facility] History of tobacco use Current smoker [facility] History of tobacco use Cigarette Smoker P [facility] Start: 12-26-2020 End: 07-31-2024 Cigarettes smoked current (pack per day) - Reported 0.5 [facility] Start: 01-23-2024 End: 07-31-2024 Tobacco use and exposure Smokeless tobacco non-user [facility] [employer] [facility] Start: 08-03-2024 End: 04-03-2025 Alcoholic beverage intake Lifetime non-drinker (finding) [facility] Start: 09-10-2023 Tobacco Comment 5 or less ciga rettes a day [facility] Start: 1990 Sex assigned at Not on file [facility] [employer] [facility] Start: 09-10-2023 [facility] tobacco smoker [facility] Start: 02-14-2024 End: 05-31-2025 Alcoholic beverage intake [facility]-drinker (finding) [facility] Has the [employer], or water [employer] threatened to shut off services in your home in past 12Mo No [facility] [employer] System How often to you hav e a drink containing alcohol? Never [facility] [employer] System How many standard dr inks containing alcohol do you have on a typical day? Patient does not drink [facility] Tobacco smoking stat [facility] Unknown if ever smoked [facility] Work Phone: Start: 03-24-2018 End: 02-20-2025 Sex Female (finding) [facility] Start: 1990 Sex Assigned At Female F [facility] Sexual Orientation [facility] [place] Medical Equipment Procedure Code Equipment Code Equipment Origin al Text Equipment Identifier Dates Stent Vsc 18mm X 100mm Venous Nitinol Slf Expanding Abre - [id number] Start: 01-24-2024 Functional Status Date Assessment Result Facility 12-26-2024 Functional Status N/A [facility] 10-03-2024 Functional Status N/A [facility] 08-08-2024 Functional Status N/A [facility] Clinical Notes 02-10-2024 to 05-31-2025 Assessment & Plan Note - Jani Bridges MD - 05/31/2025 7:02 PM EDTAssessment & Plan Note - Jani Bridges MD - 05/31/2025 7:02 PM EDTheresa Bridges MD - 05/31/2025 8:30 AM EDT Note Date & Type Note Facility 05-31-2025 Evaluation + Plan note Associated Problem(s): DVT (deep venous thrombosis) ([facility]) Continue anticoagulation. [facility] 05-31-2025 Evaluation + Plan note Associated Problem(s): May-Thurner syndrome Continue antiplatelets. Duplex ultrasound in a year. [facility] 05-31-2025 Miscellaneous Notes Associated Problem(s): DVT (deep venous thrombosis) ([facility]) Continue anticoagulation. Associated Problem(s): May-Thurner syndrome Continue antiplatelets. Duplex ultrasound in a year. documented in this encounter [facility] 05-31-2025 History of Presen t illness [...] 01/24/2024 Performed by Jani Bridges MD at [facility] Social and Family History: [...] Plan: Problem List DVT (deep venous thrombosis) ([facility]) Current Assessment & Plan Continue anticoagulation. Relevant [...] iliac vein of left lower extremity ([facility]) - Vas IVC/iliac duplex complete; Future Jani Bridges MD, [place], RPVI, FSVS, FACS [facility] [facility] This note was created with the assistance of a speech recognition program. While intending to generate a timely document that accurately reflects the content of the visit, no guarantee can be provided that every grammatical or spelling mistake has been or will be identified or corrected. Thank you for your understanding. documented in this encounter [facility] 04-17-2025 History of Presen t illness Narrative Reason for Appointment: Patient ID: Tawana Silverman is a 35 y.o. female who presents for No chief complaint on file. Patient presents today via telephone call for a telehealth appointment. Patients Phone #: [phone] (mobile) Date: 04/17/2025 Time: 9:51 AM of [...] DILATION AND CURETTAGE OF UTERUS 01/07/2024 HYSTERECTOMY 2017 PELVIC LAPAROSCOPY Endometriosis via lap SALPINGECTOMY Bilateral [...] Andre Treviño DO documented in this encounter [facility] 04-03-2025 History of Presen t illness [...] nursing note reviewed. Exam conducted with a risk control field representative present. Vitals: Estimated body mass index is [...] Andre Treviño DO documented in this encounter [facility] 12-26-2024 Hospital Discharg e instructions Patient [...] Follow these instructions at home: Medicines Take iaia-ksf-hqupguo and prescription medicines only as told by [...] provider. Document Revised: 08/18/2023 Document Reviewed: 08/18/2023 [facility] Patient Education 2023 [employer]. Follow Up Care 10/03/2024 10:18:19 With:[facility] Address: When: Unknown Comments:Only if needed/new problems arise. No scheduled appointment indicated at this time. [facility] 12-26-2024 Note Patient Education Gastroenterology Abdominal Pain, [...] these instructions at home: Medicines ??? Take popt-qhj-rstzciz and prescription medicines only as told by [...] provider. Document Revised: 08/18/2023 Document Reviewed: 08/18/2023 [facility] Patient Education ? 2023 [employer]. [facility] 10-03-2024 Evaluation + Plan note Extrac casandra [...] Date:12/26/2024 09:30:00 AM Scheduled Provider:SYDNEE ALVAREZ PA-C Location:[facility] Appointment Type:URO Office Visit Appointment Date:04/04/2025 01:00:00 PM Scheduled Provider:Julien HOYOS MD Location:[facility] Appointment Type:URO Office Visit [facility] 11-19-2024 Hospital Discharge instructions Patient Education [...] Up Care 08/18/2024 15:06:34 With:Julien HOYOS Address: [address] [place], [place] [address] Business (1) When:01/31/2025 10:02:39 Comments:With Roxane Alvarez [facility] 11-19-2024 NoteProgress Note-Physician Patient: TAWANA SILVERMAN Age: 34 years Sex: Female : 1990 Associated Diagnoses: None Author: HOYOS MD, Julien Montez X this lady has pelvic pain, urinary [...] All Problems Endometriosis (clinical) / SNOMED CT 969427324 / Confirmed Deep venous thrombosis / SNOMED CT 283334566 / Confirmed Factor V deficiency / SNOMED CT 2450173 / Confirmed Leukocytosis / SNOMED CT 954754871 / Confirmed Migraine / SNOMED CT 52595417 / Confirmed Anxiety / SNOMED CT 15885586 / Confirmed Chronic pelvic pain in female / SNOMED CT 367208284 / Confirmed Chronic bladder pain / SNOMED CT 7113987442 / Confirmed Recurrent vaginitis / SNOMED CT 31355244 / Confirmed Histories Past Medical History: No active or resolved past medical history items have been selected or recorded. Family History: Congenital heart disease Mother Primary malignant neoplasm of female breast Grandparent Alcoholism Mother Migraines Mother Procedure history: Thrombectomy (37017708) in 2023 at 34 Years. Salpingectomy (4786839664) on 01/07/2024 at 33 Years. Comments: 08/08/2024 8:57 Therese Lowe MA partial History of appendectomy (situation) (7973280313). History of - hysterectomy (context-dependent category) (071517291). Laparoscope (261505311). Comments: 08/08/2024 8:55 Therese Lowe MA pelvic [...] Follow-up will be in 4 months for reevaluation.[facility]:Result Comment: Electronically Signed By: ROMAIN NAVARRO, Julien Arana\Date and Time Signed: 10/03/24 10:13 [id number] NotePatient Education Custom Cystoscopy with Urethral Dilation [...] you have a fever over [facility] History of Present illness Narrative* April [...] nursing note reviewed. Exam conducted with a risk control field representative present. Vitals: Estimated body mass index is [...] [facility] patient to [facility] for [...] of: Andre Treviño DO [id number] Hospital Discharge instructions Patient Education 08/08/2024 12:40:13 [...] known. Follow these instructions at home: Take fklb-wgh-vhrdyxz and prescription medicines only as told by [...] provider. Document Revised: 03/10/2022 Document Reviewed: 03/10/2022 [facility] Patient Education 2023 [employer]. Follow Up Care 08/03/2024 15:49:20 With:[facility] Address: [address] [place] [address] Business (1) When: Unknown Comments:our manufacturer's service representative will be contacting you for follow-up [facility] 09-24-2024 NoteUrology Office/Clinic Note Chief Complaint [...] test anxiety. Knows she will need a pizza driver. Ordered: diazepam, See Instructions, 1 tab po 30-60 mins prior to cystoscopy, # 1 tab(s), Refills(s) 0, [id number], 158, cm, 08/08/24 11:39:00 EDT, Height/Length Dosing, 60, kg, 08/08/24 11:39:00 EDT, Weight Dosing E&M of New Patient Moderate 45-59 Min 49907 2. Chronic pelvic pain in female (R10.2: Pelvic and perineal pain) Sp hysterectomy 2017 w several laproscopy d/t endometriosis. Had laproscopy Dec 2023 and bilat salpingectomy at that time. Pt reports no endometriosis found at that time. Will refer to PFPT at [facility] [facility] (her sx are a bit beyond my scope of PFPT) to assess for hypertonicpelvic floor, etc. Ordered: diazepam, See Instructions, 1 tab po 30-60 mins prior to cystoscopy, # 1 tab(s), Refills(s) 0, [facility]: [id number], 158, cm, 08/08/24 11:39:00 EDT, Height/Length Dosing, 60, kg, 08/08/24 11:39:00 EDT, Weight Dosing 36070 Measure Post Void residual urine and/or bladder capacity by US- non-imaging E&M of New Patient Moderate 45-59 Min 73539 Urnls Dip Stick Auto w/o Microscopy POC 21920 3. Recurrent vaginitis (N76.0: Acute vaginitis) Also reports frequent vaginal infections - bacterial and fungal. Ordered: diazepam, See Instructions, 1 tab po 30-60 mins prior to cystoscopy, # 1 tab(s), Refills(s) 0, [facility]: [id number], 158, cm, 08/08/24 11:39:00 EDT, Height/Length Dosing, 60, kg, 08/08/24 11:39:00 EDT, Weight Dosing E&M of New Patient Moderate 45-59 Min 66093 Follow-up With When Contact Information [facility] Oliva Farrell [place] [phone] Business (1) Additional Instructions: our manufacturer's service representative will be contacting you for follow-up Patient Education Pelvic Pain, Female Problem List/Past Medical History Ongoing Anxiety Chronic bladder pain Chronic pelvic pain in female Deep venous thrombosis Endometriosis (clinical) Factor V deficiency Leukocytosis Migraine Recurrent vaginitis Historical No qualifying data Procedure/Surgical History Salpingectomy (01/07/2024), Thrombectomy (2023), H/O: hysterectomy, History of appendectomy, Laparoscope. Medications CV (more content not included)...[facility]: Result Comment: Electronically Signed By: SYDNEE ALVAREZ PA-C\Date and Time Signed: 08/08/2412:41 [id number] NotePatient Education Obstetrics and Gynecology Pelvic Pain, [...] Follow these instructions at home: ? Take oddn-oxu-rfnahrg and prescription medicines only as told by [...] provider. Document Revised: 03/10/2022 Document Reviewed: 03/10/2022 [facility] Patient Education ? 2023 [employer] 07-31-[facility] History of Present illness Narrative* [...] nursing note reviewed. Exam conducted with a risk control field representative present. Vitals: Estimated body mass index is [...] of: Andre Treviño DO documented in this encounterRanken Jordan Pediatric Specialty [id number] History of Present illness Narrative* GEMA Earl [...] (Neurontin) 300 MG capsule 1 capsule HYDROcodone-acetaminophen ([place]) 5-325 MG tablet TAKE 1 TABLET EVERY 4 HOURS ibuprofen 800 MG tablet TAKE 1 TABLET EVERY 8 HOURS Lactobacillus Acid-Pectin (Acidophilus/[place] Pectin) tablet 1 tablet, Oral, Daily with [...] behalf of: GEMA Earl documented in this encounterRanken Jordan Pediatric Specialty [id number] Evaluation + Plan note* Assessment & Plan Note - Jani Bridges MD - 05/25/2024 9:17 AM EDT Associated Problem(s): DVT (deep venous thrombosis) ([facility] [place] Continue anticoagulation for total of 6 months. She probably benefit from D- dimer check at that time. [facility]07-11-2024 Miscellaneous Notes* Assessment & Plan Note - Jani Bridges MD - 05/25/2024 9:17 AM EDTAssociated Problem(s): DVT (deep venous thrombosis) ([facility]) Continue anticoagulation for total of 6 months. She probably benefit from D- dimer check at that time. 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 She will continue aspirin indefinitely. She will get a surveillance imaging in a year. 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 She will continue aspirin indefinitely. She will get a surveillance imaging in a year. [facility]07-11-2024 History of Present illness Narrative* [...] 01/24/2024 Performed by Jani Bridges MD at [facility] Social and Family History: [...] Plan: Problem List DVT (deep venous thrombosis) ([facility]) May-Thurner syndrome - Primary Current Assessment & [...] iliac vein of left lower extremity ([facility]) Jani Bridges MD, [place], RPVI, FSVS, FACS [...] you for your understanding. 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 Continue aspirin. 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 She will continue [...] 01/24/2024 Performed by Jani Bridges MD at [facility] Social and Family History: [...] you for your understanding. documented in this encounterElyria Memorial Hospital03-28-2024 History of Present illness Narrative* Jani Bridges MD - 02/10/2024 2:40 PM EDT Images from the original note were not included. [facility] [address] [facility] [id number] Subjective: Patient ID: Tawana Silverman is a [...] List Diagnosis DVT (deep venous thrombosis) ([facility]) May-Thurner syndrome Current Outpatient Medications: acetaminophen [...] iliac vein of left lower extremity ([facility]) May-Thurner syndrome Plan Plan: Eliquis ASA US of the left iliac veins F/U in 3 months Jani Bridges MD, [place] documented in this encounterCleveland [facility] SystemEvaluation + Plan note No data available for this section [facility] evaluation + Plan note Future Appointments Appointment Date:04/04/2025 01:00:00 PM Scheduled Provider:Julien HOYOS MD Location:[facility] Appointment Type:URO Office Visit [facility] evaluation note* Diagnosis Vaginal discharge Leukorrhea, [...] [facility] noteNo assessment information available [facility] Work Phone: Evaluation note* Diagnosis Nipple [...] lower extremity (CMS-HCC) documented in this encounter [facility] System[facility] Discharge instructions No data available for this section [facility] InstructionsNot on filedocumented in this encounter [facility] SystemInstructionsNot on filedocumented in this encounter [facility] SystemInstructionsNot on filedocumented in this encounter [facility] SystemInstructionsNot on filedocumented in this encounter [facility] SystemInstructionsNot on filedocumented in this encounter [facility] SystemInstructionsNot on filedocumented in this encounter [facility] SystemProgress note No data available for this section [facility] [employer] Summary Purpose Family History No Family History [...] Referral Specialty Diagnoses / Procedures Referred By Jeff hilton Referred To Contact Diagnoses Acute deep vein thrombosis (DVT) of iliac vein of left lower extremity (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 Procedures Vas IVC/iliac duplex complete Jani Bridges MD [address], [address] [address] Phone: Referral ID Status Reason Start Date Expiration Date V isits Requested Visits Authorized [id number] Pending Review 02/11/2024 02/10/2025 1 1 Specialty Diagnoses / Procedures Referred By Jeff hilton Referred To Contact Radiology Diagnoses 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) Procedures CT angiogram extremity upper left Jani Bridges MD [address], [address] [address] Phone: Referral ID Status Reason Start Date Expiration Date V isits Requested Visits Authorized [id number] Pending Review 04/27/2024 04/27/2025 1 1 Chief Complaint and Reason for Visit Chief Complaint Admit Date C only;Chronic Pelvic Pain February 19 9:00am Additional Source Comments INFORMATION SOURCE (unrecogn ized section and content) DATE CREATED AUTHOR 04/23/2023 [facility] DATE CREATED AUTHOR AUTHOR'S ORGANIZ ATION 01/27/2024 [facility] DATE CREATED AUTHOR AUTHOR'S ORGANIZ ATION 05/31/2024 [facility] DATE CREATED AUTHOR AUTHOR'S ORGANIZ ATION 04/04/2025 [facility] DATE CREATED AUTHOR AUTHOR'S ORGANIZ ATION 04/11/2025 [facility] DATE CREATED AUTHOR AUTHOR'S ORGANIZ ATION 06/03/2025 [facility] DATE CREATED AUTHOR AUTHOR'S ORGANIZ ATION 06/27/2025 [facility] DATE CREATED AUTHOR AUTHOR'S ORGANIZ ATION 07/08/2025 [facility] Patient Care team informatio n (unrecognized section and content) Dye Range Operator Cloth Relationship Specialty Start Date End Date Usman Rodrigez MD [address] [place] [address] PCP - General Family Medicine 03/24/23 Dye Range Operator Cloth Relationship Specialty Start Date End Date Usman Rodrigez MD [address] [place] [address] PCP - General Family Medicine 03/24/23 Dye Range Operator Cloth Relationship Specialty Start Date End Date Usman Rodrigez MD [address] [place] [address] PCP - General Family Medicine 03/24/23 Dye Range Operator Cloth Relationship Specialty Start Date End Date Usman Rodrigez MD [address] [place] [facility] [place] [address] PCP - General Family Medicine 03/24/23 Dye Range Operator Cloth Relationship Specialty Start Date End Date Usman Rodrigez MD [address] [place] [facility] [place] [address] PCP - General Family Medicine 03/24/23 Dye Range Operator Cloth Relationship Specialty Start Date End Date Usman Rodrigez MD [address] [place] [facility] [place] [address] PCP - General Family Medicine 03/24/23 Dye Range Operator Cloth Relationship Specialty Start Date End Date Usman Rodrigez MD [address] [place] [address] PCP - General 02/09/24 Dye Range Operator Cloth Relationship Specialty Start Date End Date Usman Rodrigez MD [address] [place] [place] [address] PCP - General 02/09/24 Dye Range Operator Cloth Relationship Specialty Start Date End Date Usman Rodrigez MD [address] [place] [place] [address] PCP - General 02/09/24 Dye Range Operator Cloth Relationship Specialty Start Date End Date Usman Rodrigez MD [address] [place] [place] [address] PCP - General 02/09/24 Team Status: Active Member Role Status Dates Usman Rodrigez MD Primary Care Provider Active Team Status: Inactive Member Role Status Dates Sydnee Alvarez PA-C Attending Provider Active Start: February 19, 2025 End: February 19, 2025 Usman Rodrigez MD Primary Care Provider Active Start: February 19, 2025 End: February 19, 2025 Dye Range Operator Cloth Relationship Specialty Start Date End Date Usman Rodrigez MD PCP - General 02/09/24 Dye Range Operator Cloth Relationship Specialty Start Date End Date Usman Rodrigez MD PCP - General Family Medicine 03/24/23 Theresa Perez, [facility] [address] [place] [address] Field Services Analyst Behavioral Health 01/08/25 Dye Range Operator Cloth Relationship Specialty Start Date End Date Usman Rodrigez MD PCP - General Family Medicine 03/24/23 Theresa Perez, [facility] [address] [place] [address] Field Services Analyst Behavioral Health 01/08/25 Dye Range Operator Cloth Relationship Specialty Start Date End Date Usman Rodrigez MD PCP - General Family Medicine 03/24/23 Theresa Perez, [facility] [address] [place] [address] Field Services Analyst Behavioral Health 01/08/25 Dye Range Operator Cloth Relationship Specialty Start Date End Date Usman Rodrigez MD PCP - General Family Medicine 03/24/23 Dye Range Operator Cloth Relationship Specialty Start Date End Date Usman [...] BE BASED ON THE PRIMARY CLINICAL RECORDS. [employer] provides no warranty or guarantee of the accuracy or completeness of information in this document.
--- NOTE | 2025-07-11 09:19 | P.CN_ITS ---
Consult Note: HPI Data of Consult Patient: known to practice within the last 3 years Consult date: 06/27/25 Requesting Physician: Alka Wharton NP Primary Care Provider: Dank Alvarez MD Consult Narrative Reason for consult: low back and LLE pain Narrative: Tawana Silverman a pleasant 35 year old female with chronic left hip and pelvis pain, worsening after DVT and laparoscopy in 2023. Pt has been cleared by vascular, upcoming appointment with heme/onc for clotting disorders. pending consultation with orthopedics, recently underwent hip and sacrum MRI with minimal findings. Patient has failed to benefit from > 6 weeks of HEP and PT within the last 6 months for her left hip pain. Pain today 4/10 aching burning increasing to 10/10 with standing, walking, lying on left side, sitting, bending. Pain mildly improved with sleep and heat. recently underwent left SIJ injection with 40% improvement, but notes worsening low back and left leg numbness and burning pain. cc:: CC: Alka Wharton NP [facility] Medical History (Updated 07/11/25 @ 09:28 by Alka Wharton NP) COVID-19 ?U07.1 - COVID-19 (ICD-10) Migraine ?G43.909 - Migraine, unspecified, not intractable, without status migrainosus (ICD-10) Constipation ?K59.00 - Constipation, unspecified (ICD-10) Postoperative nausea and vomiting ?R11.2 - Nausea with vomiting, unspecified (ICD-10) ?Z98.890 - Other specified postprocedural states (ICD-10) Vaginal yeast infection ?B37.31 - Acute candidiasis of vulva and vagina (ICD-10) Bacterial vaginosis ?N76.0 - Acute vaginitis (ICD-10) ?B96.89 - Other specified bacterial agents as the cause of diseases classified elsewhere (ICD-10) Endometriosis ?N80.9 - Endometriosis, unspecified (ICD-10) Pelvic pain ?R10.2 - Pelvic and perineal pain (ICD-10) Surgical History History of colonoscopy ?Z98.890 - Other specified postprocedural states (ICD-10) History of hysterectomy ?Z90.710 - Acquired absence of both cervix and uterus (ICD-10) History of laparoscopy ?Z98.890 - Other specified postprocedural states (ICD-10) History of appendectomy ?Z90.49 - Acquired absence of other specified parts of digestive tract (ICD- 10) Family History Other Family history of breast cancer Family history of myocardial infarction Social History Within the past year, how often did you have a drink containing alcohol: never Score interpretation: A score less than 3 is consistent with normal alcohol consumption. 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 @ [employer] Highest level of school completed/degree received: Associate degree: academic program Meds Home Medications and Allergies Home Medications ?Medication ?Instructions ?Recorded ?Confirmed ?Type Lactobacillus acidophilus 10 100 mmu cells PO DAILY 07/02/25 History billion cell capsule (Probiotic) apixaban 2.5 mg tablet (Eliquis) mg 06/27/25 History aspirin 81 mg chewable tablet 06/27/25 History cyclobenzaprine 10 mg tablet 10 mg PO QDAY PRN muscle spasm 06/27/25 07/02/25 History Allergies Allergy/AdvReac Type Severity Reaction Status Date / Time No Known Drug Allergies Allergy Verified 07/02/25 08:11 Exam Constitutional Documenting provider has reviewed patient's vital signs: yes Common normals: no apparent distress, oriented x3, healthy appearing, alert and well nourished General appearance: cooperative HENMT Common normals: normocephalic, hearing grossly normal bilaterally and moist oral mucous membranes Head and scalp: normocephalic Eye Common normals: PERRL Pupil: PERRL Neck & C-Spine Common normals: full ROM General: normal visual inspection Chest Common normals: inspection of chest normal Respiratory Common normals: normal respiratory effort, no retractions and no use of accessory muscles Back & Pelvis Lumbar spine/lower back: ROM limited, pain with ROM, lumbar spinal tenderness and straight leg raise positive left Sacroiliac joints: SI joint(s) abnormal Other: significant tenderness over left PSIS left positive mark(patricks), gaenslens, thigh thrust, compression test decreased sensation left L4,5,S1 strength 3.5/5 in LLE and 5/5 in RLE Extremity Other: left hip moderate pain with internal/external rotation and hypersensitivity to left lateral thigh Neuro Common normals: oriented x3 Sensorium/orientation: alert Psych Common normals: mental status grossly normal, thought process normal, cooperative, affect normal, speech normal and activity/motor behavior normal Speech: normal speech Thought process: normal thought process Results Additional Findings Additional findings: If on a controlled substance or opioids, I have checked an [place]ARRS report on this patient and there are no aberrancies noted in the prescribing history.??If on a controlled substance or opioid a drug screen was completed and reviewed within the last year, and if there has not been a drug screen completed we ordered one today to monitor higher risk, state monitored pain medication use. As part of providing excellent, safe, comprehensive care, the following was completed at our patient's visit: 1. A medication reconciliation and review to ensure accurate knowledge of current/active medications, including asking our patients to inform us about any baph-exr-ycklhcg medications or herbal remedies/nutritional supplements/alternative remedies. 2. A review to specifically ensure our patients have had annual screening for screening for depression, screening for tobacco use, and screening for unhealthy alcohol use. For concerning screenings had a discussion with the patient, provided patient education, and recommended follow-up with primary care provider when appropriate. If patient noted with a risk of falling, they received education on strength, gait, and balance training to prevent future risk of falling. Portions of this note may have been carried over from the previous visit and updated as appropriate. Please note this office utilizes paper charting in addition to the electronic medical record. A list of current medications, vitals, and PMH is available there as the clinical staff outside of myself do not have access to [place] city [place] [employer] charting during the clinic day operations. As part of providing quality comprehensive care the current medications, vitals, and PMH were reviewed in the paper chart. 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 pt noting severe debilitating pain, cannot tolerate PT for low back pain. (2) Sacroiliitis: (3) Meralgia paraesthetica: Plan recommend updating lumbar MRI without contrast to assess lumbar DDD with back and LE pain causing severe pain, weakness of LLE, and impaired quality of life unresponsive to greater than 6 weeks of home exercises, heat, ice, tylenol, and cannot take NSAIDs on eliquis. again pt cannot tolerate PT for her low back pain and DDD due to severe debilitating pain f/u to review MRI in consideration of interventional therapy vs NS consultation
== END 2025-07-11 08:53 | disposition home or self-care (01) ==
LOC: PM 08:52
PROVIDERS: PCP Family Medicine; Visit Provider Nurse Practitioner
DX: M51.369 Other intervertebral disc degeneration, lumbar region without mention of lumbar back pain or lower extremity pain (principal); M46.1 Sacroiliitis, not elsewhere classified; G57.10 Meralgia paresthetica, unspecified lower limb
CPT/HCPCS: G0463

== ENCOUNTER 2025-07-13 06:42 | Outpatient (OUT) | payer BC, SELFPAY ==
--- NOTE | 2025-07-13 06:45 | MR_ITS ---
The [address] [address] Patient Name: KIMBERLY MCMAHON MRN: [id number] date: 1990 Sex: F Assigned Patient Location: MRI Current Patient Location: MRI Accession/Order Number: [id number] Exam Date: 07/13/2025 07:01 Report Date: 07/13/2025 11:50 At the request of: MIMI CHENG NP Procedure: MR lumbar spine wo con MRI LUMBAR SPINE WITHOUT CONTRAST CLINICAL DATA: Chronic low back pain with radiation down the left leg. No reported injury. COMPARISON: Plain films 07/21/2024 Multiecho imaging in the axial and sagittal plane was performed without contrast. Alignment is maintained on the sagittal sequences. There are no acute compression fractures or marrow edema. There is a hemangioma at L4. The conus medullaris terminates at L1. It is normal caliber and signal. No paraspinal soft tissue abnormalities are noted. From T12-L1 through L3-4, the discs are normal in height and signal intensity. There is no disc bulge or herniation. No central or foraminal stenosis is noted. At L4-5, there is slight loss of disc height and disc desiccation. There is mild asymmetric disc bulging through the right neural foramen extending laterally. No thecal sac effacement is present. Mild right inferior foraminal encroachment is seen. At the lumbosacral junction, there is slight loss of disc height and disc desiccation. There is minor disco-osteophytic bulging. Increased signal is noted at the annulus posteriorly which might be a tear. There is slight facet and ligamentous hypertrophy. No thecal sac effacement is present. There is mild inferior foraminal encroachment on both sides. MR/MR lumbar spine wo con IMPRESSION: MINOR LOWER LUMBAR DISCOVERTEBRAL DEGENERATIVE CHANGES, WITHOUT SIGNIFICANT ASSOCIATED STENOSIS. Impression dictated by: Gaby Lay M.D. 07/13/2025 11:50 AM Dictation Location: [place] [address] Electronically authenticated by: [id number] Y Date: 07/13/2025 11:50
--- OUTSIDE RECORDS SUMMARY | 2025-07-13 06:45 | XMS_ITS | CCD ---
Author Organization [facility] Care Team Providers Care Child Protective Investigator Name Role Phone RAIN ., DR MARY [...] Referring Unavailable DL BUCK Referring Unavailable STEPHEN STOEKS Referring Unavailable PAUL CHACON Attending Unavailable ADDISON, [...] Physician Usman Rodrigez MD Primary Care Provider [phone] Usman Rodrigez MD Primary Care Provider Sydnee Alvarez PA-C Attending Provider Usman Rodrigez MD Primary Care Provider Usman Rodrigez MD Primary Care Provider [phone] Usman Rodrigez MD Primary Care Provider [phone] Chris [facility], Theresa L Unavailable ANDRE TREVIÑO Attending Unavailable [...] Medication Allergies] Propensity to adverse reactions (disorder) [facility] Repository Medications Current Medications Medication Drug [...] cystoscopy, # 1 tab(s), Refills(s) 0, Pharmacy: [facility]/pharmacy #[id number], 158, cm, 08/08/24 11:39:00 EDT, Height/Length [...] capsule 1 capsule 05/26/2024 Active lactobacillus acidophilus [id number] unt / pectin 100 mg oral tablet (15 sources) take 1 tablet by mouth once daily at breakfast acidophilus-pect in, citrus 25 million cell -100 mg tablet Take 1 tablet by mouth daily with breakfast. Active End: 07-31-2024 take 1 tablet by mouth at mealtime Lactobacillus Acid-Pectin (Acidophilus/[place] Pectin) tablet Take 1 tablet by mouth [...] Daily, # 30 tab(s), Refills(s) 6, Pharmacy: [facility]/pharmacy #[id number], 158, cm, 08/08/24 11:39:00 EDT, Height/Length [...] Agonist Start: 01-07-2024 End: 07-31-2024 HYDROcodone-acetam inophen ([place]) 5-325 MG tablet TAKE 1 TABLET EVERY [...] procedure, # 2 tab(s), Refills(s) 0, Pharmacy: [facility]/pharmacy #[id number], 158, cm, 08/08/24 11:39:00 EDT, Height/Length [...] visceral atherosclerosis (7 sources) Unspecified atherosclerosis of [place] arteries of extremities, other extremity; Translations: [Occlusion [...] Inferior Vena Cava and Illiac vesselson 05-23-2025 [place] [address] Ultrasound Report Signed Patient: TAWANA SILVERMAN MR#: [id number] : 1990 Acct:[id number] Age/Sex: 35 / F ADM Date: 05/23/25 Loc: US Attending Dr: Jani Bridges M.D. Ordering Physician: Jani Bridges M.D. Date of Service: 05/23/25 Procedure(s): US duplex IVC Accession Number(s): [id number] cc: Usman Rodrigez M.D.; Jani Bridges M.D. [place] [address] Patient Name: TAWANA SILVERMAN MRN: [id number] date: 1990 Sex: F Assigned Patient Location: US Current Patient Location: US Accession/Order Number: [id number] Exam Date: 05/23/2025 10:35 Report Date: 05/23/2025 [...] Lay M.D. 05/23/2025 10:38 AM Dictation Location: [place] [address] Electronically authenticated by: [id number] Y Date: 05/23/2025 10:38 Dictated By: Gaby Lay M.D. Signed By: 05/23/25 1041 DD/ 1038 TD/TT: Bill Adjuster: [facility] Radiology, Radiologist, MD - 05/23/2025 [place] [address] Ultrasound Report Signed Patient: TAWANA SILVERMAN MR#: [id number] : 1990 Acct:[id number] Age/Sex: 35 / F ADM Date: 05/23/25 Loc: US Attending Dr: Jani Bridges M.D. Ordering Physician: Jani Bridges M.D. Date of Service: 05/23/25 Procedure(s): US duplex IVC Accession Number(s): [id number] cc: Usman Rodrigez M.D.; Jani Bridges M.D. [place] [address] Patient Name: TAWANA SILVERMAN MRN: [facility]:[id number] date: 1990 Sex: F Assigned Patient Location: US Current Patient Location: US Accession/Order Number: [id number] Exam Date: 05/23/2025 10:35 Report Date: 05/23/2025 [...] Lay M.D. 05/23/2025 10:38 AM Dictation Location: [place] [address] Electronically authenticated by: [id number] Y Date: 05/23/2025 10:38 Dictated By: Gaby Lay M.D. Signed By: 05/23/25 1041 DD/ 1038 TD/TT: Bill Adjuster: [facility] [employer] Radiology Study observation (narrative) [facility] [employer] US.doppler Thoracic and Abdo rinku Aorta and Inferior Vena Cava and Illiac vesselsOrdered By: Radiologist Radiology on 05-23-2025 [employer] Work Phone: Urology Office/Clinic Noteon 12-26-2024 [...] has improved. Has been doing PFPT at [facility] since August. Noticing a lot of [...] E&M of Est. Patient Low 20-29 Min 58445 Urnls Dip Stick Auto w/o Microscopy POC 83042 Follow-up With When Contact Information [facility] Additional Instructions: Only if needed/new problems [...] 2024-08-08: TENIVAC GIVEN BY DR RODRIGEZ IN [place] poliovirus vaccine, inactivated 07/11/1997 Recorded measles/mumps/rubella virus [...] Dipstick: 2+ (100 mg/dl) (12/26/24 10:01:00) Specific [place] Urine Dipstick: 1.025 (12/26/24 10:01:00) Urine Appearance Urine Dipstick: Clear (12/26/24 10:01:00) Urine Color Urine Dipstick: Yellow (12/26/24 10:01:00) Urobilinogen Urine Dipstick: Normal 0.2-1 EU/dl (12/26/24 10:01:00) pH Urine Dipstick: 6.5 (12/26/24 10:01:00) Normal [facility] Comment on above: Result Comment: Elec tronically Signed By: SYDNEE ALVAREZ PA-C\.br\Date and Time Signed: 12/26/24 10:31 EST Main OR Preoperative Recordo n 11-13-2024 Main OR Preoperative Record Main OR Preoperative Record Holding Area Document Type FTURO Summary Primary Physician: Julien HOYOS MD Finalized Date/Time: 11/13/24 16:38:17 Pt. Name: TAWANA SILVERMAN Slim Mccormack./Sex: 1990 Female Med Rec #: [id number] Physician: Julien HOYOS MD Financial #: [id number] Pt. Type: O Room/Bed: / Admit/Disch: 10/03/24 [...] Complaints of Pain: No Skin Integrity Intact, [place], Warm, & Dry Vitals - EU Blood Pressure 109/72 Pulse 80 bpm Respirations 20 br/min SPO2 97 % Additional None RN Reviewed Yes Specimens Collected Last Modified By: Elizabet Grimm RN 10/03/24 09:45:24 Finalized By: GAGE Howell RN, Ruthann Document Signatures Signed By: Shalonda Jane LPN 10/03/24 09:28 GAGE Howell RN, Ruthann 11/13/24 16:38 Normal [facility] Main OR Intraoperative Recor don 10-03-2024 Main OR Intraoperative Record Main OR Intraoperative Record IntraOp Document Type FTURO Summary Primary Physician: Julien HOYOS MD Finalized Date/Time: 10/03/24 10:05:10 Pt. Name: TAWANA SILVERMAN Slim Martin/Sex: 1990 Female Med Rec #: [id number] Physician: Juilen HOYOS MD Financial #: [id number] Pt. Type: O Room/Bed: / Admit/Disch: 10/03/24 [...] Nel Pearson Role Performed Surgeon - Primary Real Estate Branch Manager - Primary Scrub - Primary Time In [...] By: Elizabet Grimm RN 10/03/24 10:05 Normal [facility] Operative Reporton Operative Report Operative Report [...] urine. The Urethra was dilated to: 30 Ethiopian w/ sounds. Devices Implanted: None. Removal: Cystoscope is removed, The patient tolerated it well. Postoperative Information Discharge: Patient is discharged home with antibiotic coverage, Follow up arranged. She will start Myrbetriq 50 mg daily. Follow-up will be in 4 months. Normal [facility] Comment on above: Result Comment: Elec tronically Signed By: Julien HOYOS MD\.br\Date and Time Signed: 10/03/24 10:11 EST IGP,APTIMA HPV,AGE GDLNon AGE GDLN ACOG TESTING Note . [facility] Comment on above: TESTS RESULT FLAG UN ITS REF RANGE LAB Clinician Provided Cytology Information Source.............Vagina No. of containers..01 ThinPrep Vial Age Leena LAZARO Eneida... 32 FLAG LEGEND: L-Low Normal,H-High Normal,LL-Alert Low,HH-Alert High <-Panic Low,>-Panic High,A-Abnormal,AA-Critical Abnormal Performed at: 01 =G [address] [address] Sandy Lemon MD, HPV APTIMA Negative Negative [facility] Comment on above: This nucleic acid am plification test detects fourteen high- risk HPV types (16,18,31,33,35,39,45,51,52,56,58,59,66,68) without differentiation. Performed at: =G - [facility] [id number] Commutator Undercutter: Sandy Lemon MD, Phone: [phone] Performed at: [facility] [address] [place], [place] [id number] Commutator Undercutter: Holden Croft MD, Phone: [phone] IGP, APTIMA HPV, RFX 16/18,45 Note . [facility] Comment on above: TESTS RESULT FLAG UN ITS REF RANGE LAB DIAGNOSIS: 02 NEGATIVE FOR INTRAEPITHELIAL LESION OR MALIGNANCY. Specimen adequacy: 02 Satisfactory for evaluation. Performed by: 02 Sola Aviles, Senior Manufacturing Test Engineer ([facility]) . 02 Note: Note 03 The Pap [...] High,A-Abnormal,AA-Critical Abnormal Performed at: 02 [facility] [place] [facility] [address] [address] [place] [address] Holden Croft MD, 03 WB [facility] [address] [address] Sandy Lemon MD, SPATULA-ALONE VAGINA [facility] Healthcar e No Panel Informationon 07-12 [...] - righton 04-03-2024 Radiology Study observation (narrative) [facility] US.doppler Upper extremity v ein - rightOrdered By: Janet Almaguer on 04-03-2024 Radiology Study observation (narrative) [facility] US.doppler Lower extremity a rtery - righton 03-31-2024 [facility] US.doppler Upper extremity v ein - rightOrdered By: Janet Almaguer on 03-30-2024 [facility] BASIC METABOLIC PANLon 01-24 Anion gap [Moles/Vol] 7 mmol/L Normal 5-15 [facility] Comment on above: Performed By: #### C BCA, PINR, 29252-8, BMP #### [facility] ([id number]) [address], [address] [place] [address] Calcium [Mass/Vol] 8.7 mg/dL Normal 8.5-10.5 [facility] Comment on above: Performed By: #### C BCA, PINR, 26189-9, BMP #### [facility] ([id number]) [address], [address] [place] [address] Chloride [Moles/Vol] 106 mmol/L Normal 98-109 [facility] Comment on above: Performed By: #### C BCA, PINR, 70400-7, BMP #### [facility] ([id number]) [address], [address] [place] [address] CO2 [Moles/Vol] 23 mmol/L Normal 22-32 [facility] Comment on above: Performed By: #### C BCA, PINR, 71408-2, BMP #### [facility] ([id number]) [address], [address] [place] [address] Creatinine [Mass/Vol] 0.57 mg/dL Normal 0.40-1.00 [facility] Comment on above: Result Comment: METH OD TRACEABLE TO IDMS STANDARD Performed By: #### C BCA, PINR, 30414-8, BMP #### [facility] ([id number]) [address], [address] [place] [address] eGFR (CKD-EPI) NON-RACE DEPENDENT >90 Normal >59 [facility] Comment on above: Result Comment: Reported eGFR is based on the CKD-EPI 2020 equation that does not use a race coefficient. Performed By: #### C BCA, PINR, 47333-4, BMP #### [facility] ([id number]) [address], [address] [place] [address] Glucose [Mass/Vol] 139 mg/dL High 65-99 [facility] Comment on above: Performed By: #### C BCA, PINR, 78738-2, BMP #### [facility] ([id number]) [address], [address] [place] [address] Potassium [Moles/Vol] 4.3 mmol/L Normal 3.5-5.0 [facility] Comment on above: Performed By: #### C BCA, PINR, 74565-7, BMP #### [facility] ([id number]) [address], [address] [place] [address] Sodium [Moles/Vol] 136 mmol/L Normal 134-146 [facility] Comment on above: Performed By: #### C BCA, PINR, 53895-3, BMP #### [facility] ([id number]) [address], [address] [place] [address] Urea nitrogen [Mass/Vol] 6 mg/dL Normal 5-23 [facility] Comment on above: Performed By: #### C BCA, PINR, 36504-9, BMP #### [facility] ([id number]) [address], [address] [place] [address] CBC AND AUTO DIFFon 01-25-20 24 ABSOLUTE BASOPHIL 0.0 X10E9/L Normal 0.0-0.2 [facility] Comment on above: Performed By: #### C BCA, PINR, 61637-8, BMP #### [facility] ([id number]) [address], [address] [place] [address] ABSOLUTE NEUTROPHIL 2.9 X10E9/L Normal 1.5-6.6 [facility] Comment on above: Performed By: #### C BCA, PINR, 53244-5, BMP #### [facility] ([id number]) [address], [address] [place] [address] Basophils/100 WBC (Bld) 0.1 % Normal [facility] Comment on above: Performed By: #### C BRENNON PINR, 03336-3, BMP #### [facility] ([id number]) [address], [address] [place] [address] Eosinophils (Bld) [#/Vol] 0.0 10*3/uL Normal 0.0-0.4 [facility] Comment on above: Performed By: #### C BRENNON, PINR, 38271-1, BMP #### [facility] ([id number]) [address], [facility] [address] [place] [address] Eosinophils/100 WBC (Bld) 0.0 % Normal [facility] Comment on above: Performed By: #### C BRENNON PINR, 65957-8, BMP #### [facility] ([id number]) [address], [facility] [address] [place] [address] Erythrocyte distribution width (RBC) [Ratio] 11.8 % Normal 11.5-15.0 [facility] Comment on above: Performed By: #### Anastasiya WILLETT, PINR, 42000-5, BMP #### [facility] ([id number]) [address], [facility] [address] [place] [address] Hematocrit (Bld) [Volume fraction] 35.5 % Normal 35-47 [facility] Comment on above: Performed By: #### C BRENNON PINR, 59857-8, BMP #### [facility] ([id number]) [address], [facility] [address] [place] [address] Hemoglobin (Bld) [Mass/Vol] 12.3 g/dL Normal 11.7-15.5 [facility] Comment on above: Performed By: #### C BRENNON, PINR, 64939-2, BMP #### [facility] ([id number]) [address], [facility] [address] [place] [address] Lymphocytes (Bld) [#/Vol] 0.4 10*3/uL Low 1.0-3.5 [facility] Comment on above: Performed By: #### SADAF Langford BCA, 99118-3, BMP #### [facility] ([id number]) [address], [address] [place] [address] Lymphocytes/100 WBC (Bld) 13.1 % Normal [facility] Comment on above: Performed By: #### C SADAF WILLETT, 07335-6, BMP #### [facility] ([id number]) [address], [facility] [address] [place] [address] MCH (RBC) [Entitic mass] 32.3 pg Normal 27-34 [facility] Comment on above: Performed By: #### SADAF Langford BCA, 67938-7, BMP #### [facility] ([id number]) [address], [address] [place] [address] MCHC (RBC) [Mass/Vol] 34.6 g/dL Normal 32-36 [facility] Comment on above: Performed By: #### SADAF Langford BCA, 98064-0, BMP #### [facility] ([id number]) [address], [address] [place] [address] MCV (RBC) [Entitic vol] 94 fL Normal 80-100 [facility] Comment on above: Performed By: #### SADAF Langford BCA, 73935-1, BMP #### [facility] ([id number]) [address], [address] [place] [address] Monocytes (Bld) [#/Vol] 0.1 10*3/uL Normal 0-0.9 [facility] Comment on above: Performed By: #### SADAF Langford BCA, 38665-0, BMP #### [facility] ([id number]) [address], [address] [place] [address] Monocytes/100 WBC (Bld) 2.4 % Normal [facility] Comment on above: Performed By: #### SADAF Langford BCA, 31411-6, BMP #### [facility] ([id number]) [address], [facility] [address] [place] [address] Neutrophils/100 WBC (Bld) 84.4 % Normal [facility] Comment on above: Performed By: #### SADAF Langford BCA, 37094-3, BMP #### [facility] ([id number]) [address], [address] [address] Platelet mean volume (Bld) [Entitic vol] 9.1 fL Normal 7-12 [facility] Comment on above: Performed By: #### SADAF Langford BCA, 93348-1, BMP #### [facility] ([id number]) [address], [address] [address] Platelets (Bld) [#/Vol] 142 10*3/uL Low 150-450 [facility] Comment on above: Performed By: #### SADAF Langford BCA, 44396-1, BMP #### [facility] ([id number]) [address], [facility] [address] [place] [address] RBC COUNT 3.79 X10E12/L Low 3.80-5.20 [facility] Comment on above: Performed By: #### SADAF Langford BCA, 76052-3, BMP #### [facility] ([id number]) [address] [address] WBC (Bld) [#/Vol] 3.4 10*3/uL Low 4.0-11.0 [facility] Comment on above: Performed By: #### SADAF Langford BCA, 34454-3, BMP #### [facility] ([id number]) [address], [facility] [address] [place] [address] Heparin unfractionated Chrom ogenic method Qn (PPP)on 01-25-2024 ANTI XA UFH 0.68 IU/mL Normal 0.30-0.70 [facility] Comment on above: Result Comment: Opti mal time for testing is 6 hrs post dosage This test is specific for monitoring patients on UFH, and is not recommended for use with other Anti-Xa medications. Performed By: #### C BCA, PINR, 57569-3, BMP #### [facility] ([id number]) [address], [address] [place] [address] ANTI CARDIOLIPIN AB IGG IGA IGMon 01-24-2024 MELBA IgA <2.0 Normal 0-19.9 [facility] Comment on above: Performed By: #### A Doreen HEATON #### [facility] ([id number]) [address], [address] [place] [address] MELBA IgG <1.6 Normal 0-19.9 [facility] Comment on above: Performed By: #### A CAChuckyG #### [facility] ([id number]) [address], [address] [place] [address] MELBA IgM <1.5 Normal 0-19.9 [facility] Comment on above: Performed By: #### Casie CAChuckyG #### [facility] ([id number]) [address], [address] [place] [address] BASIC METABOLIC PANLon 01-23 Anion gap [Moles/Vol] 8 mmol/L Normal 5-15 [facility] Comment on above: Performed By: #### 3 274-8, CBCA, BMP #### [facility] ([id number]) [address], [address] [place] [address] Calcium [Mass/Vol] 8.0 mg/dL Low 8.5-10.5 [facility] Comment on above: Performed By: #### 3 274-8, CBCA, BMP #### [facility] ([id number]) [address], [address] [place] [address] Chloride [Moles/Vol] 106 mmol/L Normal 98-109 [facility] Comment on above: Performed By: #### 3 274-8, CBCA, BMP #### [facility] ([id number]) [address], [address] [place] [address] CO2 [Moles/Vol] 22 mmol/L Normal 22-32 [facility] Comment on above: Performed By: #### 3 274-8, CBCA, BMP #### [facility] ([id number]) [address], [facility] [address] [place] [address] Creatinine [Mass/Vol] 0.53 mg/dL Normal 0.40-1.00 [facility] Comment on above: Result Comment: METH OD TRACEABLE TO IDMS STANDARD Performed By: #### 3 274-8, CBCA, BMP #### [facility] ([id number]) [address], [address] [place] [address] eGFR (CKD-EPI) NON-RACE DEPENDENT >90 Normal >59 [facility] Comment on above: Result Comment: Reported eGFR is based on the CKD-EPI 2020 equation that does not use a race coefficient. Performed By: #### 3 274-8, CBCA, BMP #### [facility] ([id number]) [address] [address] [place] [address] Glucose [Mass/Vol] 76 mg/dL Normal 65-99 [facility] Comment on above: Performed By: #### 3 274-8, CBCA, BMP #### [facility] ([id number]) [address] [address] [place] [address] Potassium [Moles/Vol] 3.8 mmol/L Normal 3.5-5.0 [facility] Comment on above: Performed By: #### 3 274-8, CBCA, BMP #### [facility] ([id number]) [address], [address] [place] [address] Sodium [Moles/Vol] 136 mmol/L Normal 134-146 [facility] Comment on above: Performed By: #### 3 274-8, CBCA, BMP #### [facility] ([id number]) [address], [address] [place] [address] Urea nitrogen [Mass/Vol] 10 mg/dL Normal 5-23 [facility] Comment on above: Performed By: #### 3 274-8, CBCA, BMP #### [facility] ([id number]) [address], [address] [place] [address] BETA-2 GP1 AB PANELon 2023 BETA-2 GP1 IgA <2.0 Normal 0.0-19.9 [facility] Comment on above: Performed By: #### C BCA, PINR, 13117-6, BMP #### [facility] ([id number]) [address], [address] [place] [address] BETA-2 GP1 IgG <1.4 Normal 0.0-19.9 [facility] Comment on above: Performed By: #### C BCA, PINR, 49328-5, BMP #### [facility] ([id number]) [address], [address] [place] [address] BETA-2 GP1 IgM <1.5 Normal 0.0-19.9 [facility] Comment on above: Performed By: #### C BCA, PINR, 88244-4, BMP #### [facility] ([id number]) [address], [address] [place] [address] CBC AND AUTO DIFFon 01-24-20 24 ABSOLUTE BASOPHIL 0.0 X10E9/L Normal 0.0-0.2 [facility] Comment on above: Performed By: #### 3 274-8, CBCA, BMP #### [facility] ([id number]) [address], [address] [place] [address] ABSOLUTE NEUTROPHIL 3.7 X10E9/L Normal 1.5-6.6 [facility] Comment on above: Performed By: #### 3 274-8, CBCA, BMP #### [facility] ([id number]) [address], [address] [place] [address] Basophils/100 WBC (Bld) 0.4 % Normal [facility] Comment on above: Performed By: #### 3 274-8, CBCA, BMP #### [facility] ([id number]) [address], [facility] [address] [place] [address] Eosinophils (Bld) [#/Vol] 0.2 10*3/uL Normal 0.0-0.4 [facility] Comment on above: Performed By: #### 3 274-8, CBCA, BMP #### [facility] ([id number]) [address], [address] [place] [address] Eosinophils/100 WBC (Bld) 2.9 % Normal [facility] Comment on above: Performed By: #### 3 274-8, CBCA, BMP #### [facility] ([id number]) [address] [address] [place] [address] Erythrocyte distribution width (RBC) [Ratio] 12.3 % Normal 11.5-15.0 [facility] Comment on above: Performed By: #### 3 274-8, CBCA, BMP #### [facility] ([id number]) [address], [address] [place] [address] Hematocrit (Bld) [Volume fraction] 36.4 % Normal 35-47 [facility] Comment on above: Performed By: #### 3 274-8, CBCA, BMP #### [facility] ([id number]) [address], [address] [place] [address] Hemoglobin (Bld) [Mass/Vol] 12.4 g/dL Normal 11.7-15.5 [facility] Comment on above: Performed By: #### 3 274-8, CBCA, BMP #### [facility] ([id number]) [address], [facility] [address] [place] [address] Lymphocytes (Bld) [#/Vol] 1.9 10*3/uL Normal 1.0-3.5 [facility] Comment on above: Performed By: #### 3 274-8, CBCA, BMP #### [facility] ([id number]) [address], [facility] [address] [place] [address] Lymphocytes/100 WBC (Bld) 29.7 % Normal [facility] Comment on above: Performed By: #### 3 274-8, CBCA, BMP #### [facility] ([id number]) [address], [facility] [address] [place] [address] MCH (RBC) [Entitic mass] 32.5 pg Normal 27-34 [facility] Comment on above: Performed By: #### 3 274-8, CBCA, BMP #### [facility] ([id number]) [address], [facility] [address] [place] [address] MCHC (RBC) [Mass/Vol] 34.2 g/dL Normal 32-36 [facility] Comment on above: Performed By: #### 3 274-8, CBCA, BMP #### [facility] ([id number]) [address], [facility] [address] [place] [address] MCV (RBC) [Entitic vol] 95 fL Normal 80-100 [facility] Comment on above: Performed By: #### 3 274-8, CBCA, BMP #### [facility] ([id number]) [address], [facility] [address] [place] [address] Monocytes (Bld) [#/Vol] 0.5 10*3/uL Normal 0-0.9 [facility] Comment on above: Performed By: #### 3 274-8, CBCA, BMP #### [facility] ([id number]) [address] [place] [address] Monocytes/100 WBC (Bld) 8.2 % Normal [facility] Comment on above: Performed By: #### 3 274-8, CBCA, BMP #### [facility] ([id number]) [address] [place] [address] Neutrophils/100 WBC (Bld) 58.8 % Normal [facility] Comment on above: Performed By: #### 3 274-8, CBCA, BMP #### [facility] ([id number]) [address] [address] [place] [address] Platelet mean volume (Bld) [Entitic vol] 8.7 fL Normal 7-12 [facility] Comment on above: Performed By: #### 3 274-8, CBCA, BMP #### [facility] ([id number]) [address] [place] [address] Platelets (Bld) [#/Vol] 128 10*3/uL Low 150-450 [facility] Comment on above: Performed By: #### 3 274-8, CBCA, BMP #### [facility] ([id number]) [address] [place] [address] RBC COUNT 3.83 X10E12/L Normal 3.80-5.20 [facility] Comment on above: Performed By: #### 3 274-8, CBCA, BMP #### [facility] ([id number]) [address] [place] [address] WBC (Bld) [#/Vol] 6.4 10*3/uL Normal 4.0-11.0 [facility] Comment on above: Performed By: #### 3 274-8, CBCA, BMP #### [facility] ([id number]) [address], [address] [place] [address] Heparin unfractionated Chrom ogenic method Qn (PPP)on 01-24-2024 ANTI XA UFH 0.47 IU/mL Normal 0.30-0.70 [facility] Comment on above: Result Comment: Opti mal time for testing is 6 hrs post dosage This test is specific for monitoring patients on UFH, and is not recommended for use with other Anti-Xa medications. Performed By: #### 3 274-8, CBCA, BMP #### [facility] ([id number]) [address], [address] [place] [address] dRVVT/dRVVT.excess phospholi pid Coag (PPP) [Ratio]on 01-24-2024 [facility] Negative Normal [facility] Comment on above: Performed By: #### C BCA PINR, 20146-1, BMP #### [facility] ([id number]) [address] [place] [address] BASIC METABOLIC PANLon 01-22 Anion gap [Moles/Vol] 11 mmol/L Normal 5-15 [facility] Comment on above: Performed By: #### C BCA, PINR, 51780-2, BMP #### [facility] ([id number]) [address] [place] [address] Calcium [Mass/Vol] 8.3 mg/dL Low 8.5-10.5 [facility] Comment on above: Performed By: #### C BCA, PINR, 78760-8, BMP #### [facility] ([id number]) [address] [place] [address] Chloride [Moles/Vol] 106 mmol/L Normal 98-109 [facility] Comment on above: Performed By: #### C BCA, PINR, 71193-3, BMP #### [facility] ([id number]) [address] [place] [address] CO2 [Moles/Vol] 21 mmol/L Low 22-32 [facility] Comment on above: Performed By: #### C BRENNON PINR, 36674-1, BMP #### [facility] ([id number]) [address] [place] [address] Creatinine [Mass/Vol] 0.65 mg/dL Normal 0.40-1.00 [facility] Comment on above: Result Comment: METH OD TRACEABLE TO IDMS STANDARD Performed By: #### C SADAF WILLETT, 40281-2, BMP #### [facility] ([id number]) [address] [place] [address] eGFR (CKD-EPI) NON-RACE DEPENDENT >90 Normal >59 [facility] Comment on above: Result Comment: Reported eGFR is based on the CKD-EPI 2020 equation that does not use a race coefficient. Performed By: #### C BRENNON PINR, 50719-6, BMP #### [facility] ([id number]) [address], [address] [place] [address] Glucose [Mass/Vol] 78 mg/dL Normal 65-99 [facility] Comment on above: Performed By: #### C BRENNON PINR, 52633-9, BMP #### [facility] ([id number]) [address] [place] [address] Potassium [Moles/Vol] 3.9 mmol/L Normal 3.5-5.0 [facility] Comment on above: Performed By: #### C BRENNON PINR, 24774-0, BMP #### [facility] ([id number]) [address] [place] [address] Sodium [Moles/Vol] 138 mmol/L Normal 134-146 [facility] Comment on above: Performed By: #### C BRENNON PINR, 69091-3, BMP #### [facility] ([id number]) [address] [place] [address] Urea nitrogen [Mass/Vol] 11 mg/dL Normal 5-23 [facility] Comment on above: Performed By: #### C BRENNON, PINR, 34230-8, BMP #### [facility] ([id number]) [address] [place] [address] CBC AND AUTO DIFFon 01-23-20 24 ABSOLUTE BASOPHIL 0.0 X10E9/L Normal 0.0-0.2 [facility] Comment on above: Performed By: #### C BRENNON, PINR, 36441-9, BMP #### [facility] ([id number]) [address] [place] [address] ABSOLUTE NEUTROPHIL 6.6 X10E9/L Normal 1.5-6.6 [facility] Comment on above: Performed By: #### C BRENNON, PINR, 09699-7, BMP #### [facility] ([id number]) [address] [place] [address] Basophils/100 WBC (Bld) 0.3 % Normal [facility] Comment on above: Performed By: #### C BRENNON, PINR, 36177-5, BMP #### [facility] ([id number]) [address] [place] [address] Eosinophils (Bld) [#/Vol] 0.1 10*3/uL Normal 0.0-0.4 [facility] Comment on above: Performed By: #### C BRENNON, PINR, 03906-6, BMP #### [facility] ([id number]) [address] [place] [address] Eosinophils/100 WBC (Bld) 0.8 % Normal [facility] Comment on above: Performed By: #### C BRENNON PINR, 22592-4, BMP #### [facility] ([id number]) [address] [place] [address] Erythrocyte distribution width (RBC) [Ratio] 12.4 % Normal 11.5-15.0 [facility] Comment on above: Performed By: #### C BRENNON PINR, 87885-0, BMP #### [facility] ([id number]) [address] [place] [address] Hematocrit (Bld) [Volume fraction] 39.4 % Normal 35-47 [facility] Comment on above: Performed By: #### C BRENNON PINR, 81395-5, BMP #### [facility] ([id number]) [address] [place] [address] Hemoglobin (Bld) [Mass/Vol] 13.8 g/dL Normal 11.7-15.5 [facility] Comment on above: Performed By: #### C BRENNON PINR, 12821-9, BMP #### [facility] ([id number]) [address] [place] [address] Lymphocytes (Bld) [#/Vol] 1.9 10*3/uL Normal 1.0-3.5 [facility] Comment on above: Performed By: #### Anastasiya WILLETT PINR, 87370-8, BMP #### [facility] ([id number]) [address] [place] [address] Lymphocytes/100 WBC (Bld) 20.6 % Normal [facility] Comment on above: Performed By: #### Anastasiya WILLETT PINR, 01946-9, BMP #### [facility] ([id number]) [address] [place] [address] MCH (RBC) [Entitic mass] 32.7 pg Normal 27-34 [facility] Comment on above: Performed By: #### C BRENNON PINR, 48361-1, BMP #### [facility] ([id number]) [address] [place] [address] MCHC (RBC) [Mass/Vol] 34.9 g/dL Normal 32-36 [facility] Comment on above: Performed By: #### C BRENNON PINR, 53372-6, BMP #### [facility] ([id number]) [address] [place] [address] MCV (RBC) [Entitic vol] 94 fL Normal 80-100 [facility] Comment on above: Performed By: #### C BRENNON PINR, 48285-8, BMP #### [facility] ([id number]) [address] [place] [address] Monocytes (Bld) [#/Vol] 0.6 10*3/uL Normal 0-0.9 [facility] Comment on above: Performed By: #### Anastasiya WILLETT PINR, 14921-6, BMP #### [facility] ([id number]) [address], [address] [place] [address] Monocytes/100 WBC (Bld) 6.0 % Normal [facility] Comment on above: Performed By: #### Anastasiya WILLETT PINR, 62167-4, BMP #### [facility] ([id number]) [address] [place] [address] Neutrophils/100 WBC (Bld) 72.3 % Normal [facility] Comment on above: Performed By: #### Anastasiya WILLETT, PINR, 35334-8, BMP #### [facility] ([id number]) [address] [place] [address] Platelet mean volume (Bld) [Entitic vol] 8.4 fL Normal 7-12 [facility] Comment on above: Performed By: #### C BCA, PINR, 07141-9, BMP #### [facility] ([id number]) [address] [place] [address] Platelets (Bld) [#/Vol] 156 10*3/uL Normal 150-450 [facility] Comment on above: Performed By: #### C BCA, PINR, 26569-0, BMP #### [facility] ([id number]) [address], [facility] [address] [place] [address] RBC COUNT 4.21 X10E12/L Normal 3.80-5.20 [facility] Comment on above: Performed By: #### C BCA, PINR, 13032-2, BMP #### [facility] ([id number]) [address], [address] [address] WBC (Bld) [#/Vol] 9.1 10*3/uL Normal 4.0-11.0 [facility] Comment on above: Performed By: #### C BCA, PINR, 66633-6, BMP #### [facility] ([id number]) [address] [address] [address] CTV ABD AND PELVISon 01-13 CT [...] Hill MD on 01/23/2024 4:[address] [facility] Heparin unfractionated Chrom ogenic method Qn (PPP)on 01-23-2024 ANTI XA UFH 0.44 IU/mL Normal 0.30-0.70 [facility] Comment on above: Result Comment: Opti mal time for testing is 6 hrs post dosage This test is specific for monitoring patients on UFH, and is not recommended for use with other Anti-Xa medications. Performed By: #### 3 274-8 #### [facility] ([id number]) [address], [address] [place] [address] PROTIME AND INRon 01-23-2024 INR Coag (PPP) [Relative time] 1.1 {INR} Normal 0.8-1.1 [facility] Comment on above: Performed By: #### C SADAF WILLETT, 69276-7, BMP #### [facility] ([id number]) [address] [place] [address] PT Coag (PPP) [Time] 12.3 s Normal 9.8-13.2 [facility] Comment on above: Performed By: #### C BRENNON PINR, 50132-0, BMP #### [facility] ([id number]) [address] [place] [address] aPTT Coag (PPP) [Time]on aPTT Coag (Bld) [Time] 51 s High 26-37 [facility] Comment on above: Performed By: #### C BCA, PINR, 80664-8, BMP #### [facility] ([id number]) [address] [facility], [address] [place] [address] AMYLASEon 04-03-2023 Amylase [Catalytic activity/Vol] 62 U/L Normal 25-115 [facility] [place] Comment on above: Performed By: #### L IPA, BHARTI ####[facility] [id number] [place] [address]Dr. Reece Garg CBC AUTO DIFFon 04-03-2023 BASO # 0.0 103/ul Normal 0.0-0.1 [facility] [place] Comment on above: Performed By: #### C BC #### [facility] [address] [place] [address] [address] Reece Garg Basophils/100 WBC (Bld) 0.3 % Normal 0.2-2.0 [facility] [place] Comment on above: Performed By: #### C BC #### [facility] [address] [place] [address] [address] Reece Garg EO # 0.1 103/ul Normal 0.0-0.7 [facility] [place] Comment on above: Performed By: #### C BC #### [facility] [address] [place] [address] [address] Reece Garg Eosinophils/100 WBC (Bld) 0.6 % Critically low 0.9-7.0 [facility] [place] Comment on above: Performed By: #### C BC #### [facility] [address] [place] [address] [address] Reece Garg Erythrocyte distribution width (RBC) [Ratio] 11.9 % Normal 11.0-15.0 [facility] [place] Comment on above: Performed By: #### C BC #### [facility] [address] [place] [address] Dr. Reece Garg Hematocrit (Bld) [Volume fraction] 37.7 % Normal 36.0-48.0 [facility] [place] Comment on above: Performed By: #### C BC #### [facility] [address] [place] [address] Dr. Reece Garg Hemoglobin (Bld) [Mass/Vol] 12.9 g/dL Normal 12.0-16.0 [facility] [place] Comment on above: Performed By: #### C BC #### [facility] [address] [place] [address] Dr. Reece Garg IG # 0.05 10e3/ul Critically high 0.00-0.03 [facility] Comment on above: Performed By: #### C BC #### [facility] [address] [place] [address] Dr. Reece Garg IG % 0.4 % Normal 0.0-0.5 [facility] [place] Comment on above: Performed By: #### C BC #### [facility] [address] [place] [address] Dr. Reece Garg LYMPH # 2.3 103/ul Normal 1.2-3.8 [facility] [place] Comment on above: Performed By: #### C BC #### [facility] [address] [place] [address] Dr. Reece Garg Lymphocytes/100 WBC (Bld) 20.8 % Normal 20.5-60.0 [facility] [place] Comment on above: Performed By: #### C BC #### [facility] [address] [place] [address] Dr. Reece Garg MANUAL DIFF REQ NO Normal [facility] Comment on above: Performed By: #### C BC #### [facility] [address] [place] [address] Dr. Reece Garg MCH (RBC) [Entitic mass] 32.3 pg Normal 26.7-34.0 [facility] [place] Comment on above: Performed By: #### C BC #### [facility] [address] [place] [address] Dr. Reece Garg MCHC (RBC) [Mass/Vol] 34.2 g/dL Normal 29.9-35.2 [facility] [place] Comment on above: Performed By: #### C BC #### [facility] [address] [place] [address] Dr. Reece Garg MCV (RBC) [Entitic vol] 94.3 fL Normal 81.0-99.0 [facility] Comment on above: Performed By: #### C BC #### [facility] [address] [place] [address] Dr. Reece Garg MONO # 0.6 103/ul Normal 0.3-0.8 [facility] [place] Comment on above: Performed By: #### C BC #### [facility] [address] [place] [address] Dr. Reece Grag Monocytes/100 WBC (Bld) 5.3 % Normal 1.7-12.0 [facility] [place] Comment on above: Performed By: #### C BC #### [facility] [address] [place] [address] Dr. Reece Garg NEUT # 8.1 103/ul Critically high 1.4-6.5 [facility] Comment on above: Performed By: #### C BC #### [facility] [address] [place] [address] Dr. Reece Garg Neutrophils/100 WBC (Bld) 72.6 % Normal 43.0-75.0 [facility] [place] Comment on above: Performed By: #### C BC #### [facility] [address] [place] [address] Dr. Reece Garg Platelet mean volume (Bld) [Entitic vol] 10.2 fL Normal 9.5-13.5 [facility] [place] Comment on above: Performed By: #### C BC #### [facility] [address] [place] [address] Dr. Reece Garg PLT 163 103/ul Normal 150-[address] [facility] Comment on above: Performed By: #### C BC #### [facility] [address] [place] [address] Dr. Reece Garg RBC 4.00 106/ul Critically low 4.20-5.40 [facility] Comment on above: Performed By: #### C BC #### [facility] [address] [place] [address] Dr. Reece Garg WBC 11.1 103/ul Critically high 4.0-11.0 [facility] Comment on above: Performed By: #### C BC #### [facility] [address] [place] [address] [address] Reece Garg BASO # 0.0 103/ul Normal 0.0-0.1 [facility] [place] Comment on above: Performed By: #### C BC #### [facility] [address] [place] [address] [address] Reece Garg Basophils/100 WBC (Bld) 0.3 % Normal 0.2-2.0 [facility] [place] Comment on above: Performed By: #### C BC #### [facility] [address] [place] [address] [address] Reece Garg EO # 0.1 103/ul Normal 0.0-0.7 [facility] Comment on above: Performed By: #### C BC #### [facility] [address] [place] [address] Dr. Reece Garg Eosinophils/100 WBC (Bld) 0.7 % Critically low 0.9-7.0 [facility] Comment on above: Performed By: #### C BC #### [facility] [address] [place] [address] [address] Reece Garg Erythrocyte distribution width (RBC) [Ratio] 12.0 % Normal 11.0-15.0 [facility] Comment on above: Performed By: #### C BC #### [facility] [address] [place] [address] Dr. Reece Garg Hematocrit (Bld) [Volume fraction] 41.4 % Normal 36.0-48.0 [facility] Comment on above: Performed By: #### C BC #### [facility] [address] [address] [address] Reece Garg Hemoglobin (Bld) [Mass/Vol] 14.3 g/dL Normal 12.0-16.0 [facility] [place] Comment on above: Performed By: #### C BC #### [facility] [address] [place] [address] [address] Reece Garg IG # 0.05 10e3/ul Critically high 0.00-0.03 [facility] Comment on above: Performed By: #### C BC #### [facility] [address] [place] [address] Dr. Reece Garg IG % 0.3 % Normal 0.0-0.5 [facility] Comment on above: Performed By: #### C BC #### [facility] [address] [place] [address] Dr. Reece Garg LYMPH # 1.6 103/ul Normal 1.2-3.8 [facility] Comment on above: Performed By: #### C BC #### [facility] [address] [place] [address] Dr. Reece Garg Lymphocytes/100 WBC (Bld) 10.6 % Critically low 20.5-60.0 [facility] Comment on above: Performed By: #### C BC #### [facility] [address] [place] [address] Dr. Reece Garg MANUAL DIFF REQ NO Normal [facility] Comment on above: Performed By: #### C BC #### [facility] [address] [place] [address] Dr. Reece Garg MCH (RBC) [Entitic mass] 32.1 pg Normal 26.7-34.0 [facility] Comment on above: Performed By: #### C BC #### [facility] [address] [place] [address] Dr. Reece Garg MCHC (RBC) [Mass/Vol] 34.5 g/dL Normal 29.9-35.2 [facility] Comment on above: Performed By: #### C BC #### [facility] [address] [place] [address] Dr. Reece Garg MCV (RBC) [Entitic vol] 93.0 fL Normal 81.0-99.[address] [facility] Comment on above: Performed By: #### C BC #### [facility] [address] [place] [address] Dr. Reece Garg MONO # 0.7 103/ul Normal 0.3-0.[address] [facility] Comment on above: Performed By: #### C BC #### [facility] [address] [place] [address] Dr. Reece Garg Monocytes/100 WBC (Bld) 4.7 % Normal 1.7-12.[address] [facility] Comment on above: Performed By: #### C BC #### [facility] [address] [place] [address] Dr. Reece Garg NEUT # 12.9 103/ul Critically high 1.4-6.5 [facility] Comment on above: Performed By: #### C BC #### [facility] [address] [place] [address] Dr. Reece Garg Neutrophils/100 WBC (Bld) 83.4 % Critically high 43.0-75.[address] [facility] Comment on above: Performed By: #### C BC #### [facility] [address] [place] [address] Dr. Reece Garg Platelet mean volume (Bld) [Entitic vol] 10.4 fL Normal 9.5-13.[address] [facility] Comment on above: Performed By: #### C BC #### [facility] [address] [place] [address] Dr. Reece Garg PLT 194 103/ul Normal 150-[address] [facility] Comment on above: Performed By: #### C BC #### [facility] [address] [place] [address] Dr. Reece Garg RBC 4.45 106/ul Normal 4.20-5.[address] [facility] Comment on above: Performed By: #### C BC #### [facility] [address] [place] [address] Dr. Reece Garg WBC 15.4 103/ul Critically high 4.0-11.0 [facility] Comment on above: Performed By: #### C BC #### [facility] [address] [place] [address] ABD/PELV W CONon [...] Date: 2023-04-03 01:36 Normal [facility] ER URINE PROFILEon 3 Bilirubin Ql (U) Negative Normal NEGATIVE [facility] Comment on above: Performed By: #### P REGUrban ERUR #### [facility] [address] [place] [address] [address] [address] Reece Garg Clarity (U) CLEAR Normal CLEAR [facility] Comment on above: Performed By: #### P REGU, ERUR #### [facility] [address] [place], [place] [address] Dr. Reece Garg Color (U) LT. YELLOW Normal YELLOW [facility] Comment on above: Performed By: #### P REGU, ERUR #### [facility] [address] [place] [address] [address] Reece KHAN A micrscopic examination will be performed if indicated. Normal [facility] Comment on above: Performed By: #### P REGU, ERUR #### [facility] [address] [place] [address] [address] Reece Garg Glucose Ql (U) Negative Normal NEGATIVE [facility] Comment on above: Performed By: #### P REGU, ERUR #### [facility] [address] [place] [address] [address] Reece Garg Hemoglobin Ql (U) Negative Normal NEGATIVE [facility] Comment on above: Performed By: #### P REGU, ERUR #### [facility] [address] [place] [address] Dr. Reece Garg Ketones Ql (U) 15 mg/dl Abnormal NEGATIVE [facility] Comment on above: Performed By: #### P REGU, ERUR #### [facility] [address] [place] [address] Dr. Reece Garg LEUKOCYTES Negative Normal NEGATIVE [facility] [place] Comment on above: Performed By: #### P REGU, ERUR #### [facility] [address] [place] [address] Dr. Reece Garg Nitrite Ql (U) Negative Normal NEGATIVE [facility] Comment on above: Performed By: #### P REGU, ERUR #### [facility] [address] [place] [address] [address] Reece Garg pH (U) 5.5 [pH] Normal 5-9 [facility] Comment on above: Performed By: #### P REGU, ERUR #### [facility] [address] [place] [address] [address] Reece Garg SPEC GRAVITY <=1.005 Abnormal 1.005-<=1.025 [facility] Comment on above: Performed By: #### P REGU, ERUR #### [facility] [facility] [address] [address] [address] Reece Garg UA PROTEIN Negative Normal NEGATIVE/ TRACE The [facility] Comment on above: Performed By: #### P REGU, ERUR #### [facility] [address] [address] [address] Reece Garg UR MICRO IND NOT INDICATED Normal The [facility] Comment on above: Performed By: #### P REGU, ERUR #### [facility] [address] [place] [address] Dr. Reece Garg Urobilinogen Qn (U) 0.2 {Dariel'U}/dL Normal 0.2 - 1. 0 [facility] [place] Comment on above: Performed By: #### P REGU, ERUR #### [facility] [address] [place] [address] Dr. Reece Garg LIPASEon 04-03-2023 Lipase [Catalytic activity/Vol] 62.0 U/L Critically low 73.0-393.0 [facility] [place] Comment on above: Performed By: #### L IPA, BHARTI ####[facility] [address] [address]Dr. Reece Garg MONOon 04-03-2023 Monocytes (Bld) [#/Vol] Negative Normal NEGATIVE [facility] [place] Comment on above: Performed By: #### M JOSE DANIEL #### [facility] [address] [place] [address] Dr. Reece Garg URon 04-03-2023 , QUAL Negative Normal NEGATIVE The [facility] Comment on above: Performed By: #### P REGU, ERUR #### [facility] [address] [place] [address] Dr. Reece Garg PROF 14(COMP METB)on 023 Albumin [Mass/Vol] 3.3 g/dL Critically low 3.4-5.0 Th [facility] Comment on above: Performed By: #### C MP #### [facility] [address] [place] [address] Dr. Reece Garg Albumin/Globulin [Mass ratio] 1.0 {ratio} Normal [facility] Comment on above: Performed By: #### C MP #### [facility] [address] [address] [address] Reece Garg ALP [Catalytic activity/Vol] 38 U/L Critically low 46-116 [facility] [place] Comment on above: Performed By: #### C MP #### [facility] [address] [address] [address] Reece Garg ALT [Catalytic activity/Vol] 16 U/L Normal 14-59 [facility] [place] Comment on above: Performed By: #### C MP #### [facility] [address] [address] [address] Reece Garg Anion gap [Moles/Vol] 10.7 mmol/L Normal [facility] [place] Comment on above: Performed By: #### C MP #### [facility] [address] [place] [address] Dr. Reece Garg AST [Catalytic activity/Vol] 10 U/L Critically low 15-37 [facility] [place] Comment on above: Performed By: #### C MP #### [facility] [address] [place] [address] Dr. Reece Garg Bilirubin [Mass/Vol] 1.0 mg/dL Normal 0.2-1.0 [facility] [place] Comment on above: Performed By: #### C MP #### [facility] [address] [place] [address] Dr. Reece Garg Calcium [Mass/Vol] 8.2 mg/dL Critically low 8.5-10.1 [facility] Comment on above: Performed By: #### C MP #### [facility] [address] [place] [address] Dr. Reece Garg Chloride [Moles/Vol] 106 mmol/L Normal 98-107 [facility] [place] Comment on above: Performed By: #### C MP #### [facility] [address] [place] [address] Dr. Reece Garg CO2 [Moles/Vol] 27.0 mmol/L Normal 21.0-32.0 [facility] Comment on above: Performed By: #### C MP #### [facility] [address] [address] [address] Reece Garg Creatinine [Mass/Vol] 0.77 mg/dL Normal 0.55-1.[address] [facility] Comment on above: Performed By: #### C MP #### [facility] [address] [address] [address] Reece Garg EGFR-AF CITIZEN OF [place] >60 Normal >=60 [facility] Comment on above: Performed By: #### C MP #### [facility] [address] [address] [address] Reece Garg EGFR-NON AF CITIZEN OF [place] >60 Normal >=60 [facility] [place] Comment on above: Performed By: #### C MP #### [facility] [address] [address] [address] Reece Garg Globulin (S) [Mass/Vol] 3.3 g/dL Normal [facility] [place] Comment on above: Performed By: #### C MP #### [facility] [address] [address] [address] Reece Garg Glucose [Mass/Vol] 102 mg/dL Normal 74-106 The [facility] Comment on above: Performed By: #### C MP #### [facility] [address] [place] [address] Dr. Reece Garg Potassium [Moles/Vol] 3.7 mmol/L Normal 3.5-5.[address] [facility] Comment on above: Performed By: #### C MP #### [facility] [address] [address] [address] Reece Garg Protein [Mass/Vol] 6.6 g/dL Normal 6.4-8.2 The [facility] Comment on above: Performed By: #### C MP #### [facility] [address] [place] [address] Dr. Reece Garg Sodium [Moles/Vol] 140 mmol/L Normal 136-145 [facility] Comment on above: Performed By: #### C MP #### [facility] [address] [place] [address] Dr. Reece Garg Urea nitrogen [Mass/Vol] 8.0 mg/dL Normal 7.0-18.0 [facility] [place] Comment on above: Performed By: #### C MP #### [facility] [address] [place] [address] Dr. Reece Garg Urea nitrogen/Creatinine [Mass ratio] 10.4 mg/mg Normal [facility] Comment on above: Performed By: #### C MP #### [facility] [address] [place] [address] Dr. Reece Garg PROTIMEon 04-03-2023 INR Coag (PPP) [Relative time] 1.06 {INR} Normal [facility] [place] Comment on above: Performed By: #### P TT, PT #### [facility] [address] [place] [address] Dr. Reece Garg INR GUIDELINES SEE BELOW Normal [facility] Comment on above: Result Comment: JJ RED INR: 2.0 - 3.0 CONDITIONS NOT LISTED BELOW 2.5 - 3.5 FOR PROSTHETIC HEART VALVE REPLACEMENT 2.5 - 3.5 RECURRENT THROMBOSIS Performed By: #### P TT, PT #### [facility] [address] [place] [address] Dr. Reece Garg PT Coag (PPP) [Time] 11.2 s Normal 9.0-11.6 [facility] Comment on above: Performed By: #### P TT, PT #### [facility] [address] [place] [address] Dr. Reece Garg PTTon 04-03-2023 aPTT Coag (Bld) [Time] 28.1 s Normal 22.3-36.2 [facility] [place] Comment on above: Performed By: #### P TT, PT #### [facility] [address] [place] [address] Dr. Reece Garg PAP ACOG PANEL 2: 30 to 65on 07-28-2022 . . Normal [facility] Comment on above: Result Comment: Perf ormed at: WB Performed By: #### [id number] ####[facility] [address] [address]Dr. Reece Garg Age Gdln ACOG Testing 30-65 Normal [facility] [place] Comment on above: Performed By: #### 4 [id number] ####[facility] [address] [address]DrHardik Garg DIAGNOSIS: Comment Normal [facility] Comment on above: Result Comment: NEGA TIVE FOR INTRAEPITHELIAL LESION OR MALIGNANCY. Performed at: WB Performed By: #### [id number] ####[facility] [address] [address]DrHardik Garg HPV Aptima Negative Normal Negative [facility] Comment on above: Result Comment: This nucleic acid amplification test detects fourteen high-risk HPV types (16,18,31,33,35,39,45,51,52,56,58,59,66,68) without differentiation. Performed at: =G Performed By: #### [id number] ####[facility] [address] [place], [place] [address]DrHardik Garg Methodology: Comment Normal [facility] Comment on above: Result Comment: This liquid based ThinPrep(R) pap test was screened with the use of an image guided system. Performed at: WB Performed By: #### [id number] ####[facility] [address] [place], [place] [address]DrHardik Garg Note: Comment Normal [facility] Comment on above: Result Comment: The Pap smear is a screening test designed to aid in the detection of premalignant and malignant conditions of the uterine cervix. It is not a diagnostic procedure and should not be used as the sole means of detecting cervical cancer. Both false-positive and false-negative reports do occur. . Performed at: WB Performed By: #### [id number] ####[facility] [address] [id number] Garg Performed by: Comment Normal [facility] Comment on above: Result Comment: Alexandra Cortez, Senior Manufacturing Test Engineer (ASCP) Performed at: WB Performed By: #### 4 [id number] ####[facility] [address] [address]DrHardik Garg Specimen adequacy: Comment Normal [facility] Comment on above: Result Comment: Sati sfactory for evaluation. No endocervical component is identified. Performed at: WB Performed By: #### [id number] ####[facility] [address] [place], [place] [address]EwDr. Reece Garg VAGINITIS/VAGINOSIS DNA PROB Erwin 07-24-2022 Micheal species Negative Normal Negative [facility] Comment on above: Performed By: #### V AGINT #### [facility] [address] [address] [address] Reece Garg Gardnerella vaginalis Positive Abnormal Negative [facility] Comment on above: Performed By: #### V AGINT #### [facility] [address] [address] [address] Reece Garg Trichomonas vaginalis Negative Normal Negative [facility] Comment on above: Performed By: #### V AGINT #### [facility] [address] [address] [address] Reece Garg Vital Signs Date Time Vital Sign Value Performing Clinician Facility 05-31-2025 08:35-0400 Body mass index (BMI) [Ratio] 24.14 kg/m2 Jani Bridges MD Work Phone: [facility] 05-31-2025 08:35-0400 Body weight 59.88 kg Jani Bridges MD Work Phone: [facility] 05-31-2025 08:35-0400 Diastolic blood pressure 68 mm[Hg] Jani Bridges MD Work Phone: [facility] 05-31-2025 08:35-0400 Heart rate 62 /min Jani Bridges MD Work Phone: [facility] 05-31-2025 08:35-0400 Systolic blood pressure 102 mm[Hg] Jani Bridges MD Work Phone: [facility] 04-03-2025 09:37-0400 Body mass index (BMI) [Ratio] 24.51 kg/m2 Andre Treviño DO Work Phone: [facility] 04-03-2025 09:37-0400 Body weight 60.78 kg Andre Hudson DO Work Phone: [facility] 04-03-2025 09:37-0400 Diastolic blood pressure 70 mm[Hg] Andre Hudson DO Work Phone: [facility] 04-03-2025 09:37-0400 Systolic blood pressure 114 mm[Hg] Andre Hudson DO Work Phone: [facility] 12-26-2024 10:07-0500 Blood Pressure Location SYDNEE ALVAREZ [facility] 12-26-2024 10:07-0500 Diastolic blood pressure 90 mm[Hg] SYDNEE JAMARI [facility] 12-26-2024 10:07-0500 Heart rate 70 /min SYDNEE TBOARRY [facility] 12-26-2024 10:07-0500 Systolic blood pressure 130 mm[Hg] SYDNEE JAMARI [facility] 08-31-2024 10:09-0400 Body mass index (BMI) [Ratio] 24.11 kg/m2 Andre Hudson DO Work Phone: [facility] 08-31-2024 10:09-0400 Body weight 59.78 kg Andre Hudson DO Work Phone: [facility] 08-31-2024 10:09-0400 Diastolic blood pressure 70 mm[Hg] Andre Hudson DO Work Phone: [facility] 08-31-2024 10:09-0400 Systolic blood pressure 110 mm[Hg] Andre Hudson DO Work Phone: [facility] 08-08-2024 11:15-0400 Blood Pressure Location SYDNEE JAMARI [facility] 08-08-2024 11:15-0400 Diastolic blood pressure 63 mm[Hg] SYDNEE JAMARI [facility] 08-08-2024 11:15-0400 Heart rate 61 /min SYDNEE JAMARI [facility] 08-08-2024 11:15-0400 Respiratory rate 19 /min SYDNEE JAMARI [facility] 08-08-2024 11:15-0400 Systolic blood pressure 96 mm[Hg] SYDNEE JAMARI [facility] 07-31-2024 09:53-0400 Body height 157.5 cm Andre Hudson DO Work Phone: [facility] 07-31-2024 09:53-0400 Body mass index (BMI) [Ratio] 23.96 kg/m2 Andre Hudson DO Work Phone: [facility] 07-31-2024 09:53-0400 Body weight 59.42 kg Andre Hudson DO Work Phone: [facility] 07-31-2024 09:53-0400 Diastolic blood pressure 68 mm[Hg] Andre Hudson DO Work Phone: [facility] 07-31-2024 09:53-0400 Systolic blood pressure 102 mm[Hg] Andre Hudson DO Work Phone: [facility] 07-10-2024 16:25-0400 Body mass index (BMI) [Ratio] 24.29 kg/m2 Bharti RIBEIRO Work Phone: [facility] 07-10-2024 16:25-0400 Body weight 60.24 kg Bharti RIBEIRO Work Phone: [facility] 05-25-2024 08:43-0400 Body height 157.5 cm Jani Bridges MD Work Phone: [facility] 05-25-2024 08:43-0400 Body mass index (BMI) [Ratio] 23.78 kg/m2 Jani Bridges MD Work Phone: [facility] 05-25-2024 08:43-0400 Body weight 58.97 kg Jani Bridges MD Work Phone: [facility] 05-25-2024 08:43-0400 Diastolic blood pressure 68 mm[Hg] Jain Bridges MD Work Phone: [facility] 05-25-2024 08:43-0400 Heart rate 66 /min Jani Bridges MD Work Phone: [facility] 05-25-2024 08:43-0400 SaO2% (BldA) [Mass fraction] 98 % Jani Bridges MD Work Phone: [facility] 05-25-2024 08:43-0400 Systolic blood pressure 97 mm[Hg] Jani Bridges MD Work Phone: [facility] Encounters Encounter Date Encounter Type Care Provider Facility Start: 07-02-2025 End: 07-02-2025 ambulatory Kirit Pierce MD Facility:[facility] Start: 05-31-2025 End: 05-31-2025 Office outpatient visit 25 minutes Jani Bridges MD Work Phone: [facility] [place] Comment on above: 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); Acute deep vein thrombosis (DVT) of iliac vein of left lower extremity ([facility]) Start: 05-31-2025 End: 05-31-2025 ambulatory JANI BRIDGES [facility] Start: 05-30-2025 ambulatory USMAN Byrd Vero [facility] Start: 05-23-2025 End: 05-23-2025 [...] 04-04-2025 End: 04-04-2025 ambulatory Julien HOYOS Facility: [facility] Start: 04-04-2025 End: 04-04-2025 Patient encounter procedure Julien Slim ROMAIN [facility] Start: 04-03-2025 End: 04-03-2025 Bamboo flowsheet [...] Usman Rodrigez MD Work Phone: [facility] Work Phone: Start: 02-19-2025 End: 02-19-2025 Discharged Recurring Usman Rodrigez MD Work Phone: [facility] Start: 12-26-2024 End: 02-11-2025 ambulatory [facility] Start: 12-26-2024 End: 12-26-2024 Patient encounter procedure SYDNEE E JAMARI [facility] Start: 10-03-2024 End: 10-03-2024 ambulatory Julien HOYOS Facility:[facility] Start: 10-03-2024 End: 10-03-2024 Patient encounter procedure Julien HOYOS [facility] Start: 09-20-2024 End: 09-20-2024 Bamboo flowsheet Theresa Perez [facility] Work Phone: [facility] Start: 09-20-2024 End: 09-20-2024 Bamboo flowsheet Theresa Perez [facility] Work Phone: [facility] Start: 09-20-2024 End: 09-20-2024 Social Work Theresa Perez [facility] Work Phone: [facility] Comment on above: IRVING (generalized [...] 08-10-2024 End: 08-10-2024 Bamboo flowsheet Theresajessica Perez [facility] Work Phone: [facility] Start: 08-10-2024 End: 08-10-2024 Bamboo flowsheet Theresa Perez [facility] Work Phone: [facility] Start: 08-10-2024 End: 08-10-2024 Social Work Theresa Perez [facility] Work Phone: [facility] Comment on above: IRVING (generalized anx iety disorder) ([facility]) Start: 08-08-2024 End: 08-08-2024 ambulatory SYDNEE ALVAREZ Facility:[facility] Start: 08-08-2024 End: 08-08-2024 Patient encounter procedure SYDNEE Masha JAMARI [facility] Start: 08-03-2024 ambulatory Julien HOYOS Facility :[facility] Start: 08-03-2024 End: 08-03-2024 ambulatory ANDRE [...] 07-18-2024 End: 07-18-2024 Bamboo flowsheet Theresa Perez [facility] Work Phone: [facility] Start: 07-18-2024 End: 07-18-2024 Bamboo flowsheet Theresa Perez [facility] Work Phone: [facility] Start: 07-18-2024 End: 07-18-2024 Social Work Theresa Perez [facility] Work Phone: [facility] Comment on above: IRVING (generalized anx iety disorder) ([facility]) Start: 07-10-2024 End: 07-10-2024 Office outpatient visit 15 minutes Bharti RIBEIRO Work Phone: [facility] Comment on above: UTI symptoms; Vaginal discharge; STD exposure Start: 07-10-2024 End: 07-10-2024 ambulatory BHARTI FRIED Not Available Start: 07-10-2024 End: 07-12-2024 External Result Encounter Bharti RIBEIRO Work Phone: [facility] External Department Unsolicited Start: 07-10-2024 End: 07-12-2024 External Result Encounter Bharti RIBEIRO Work Phone: [facility] External Department Unsolicited Start: 06-29-2024 End: 06-29-2024 Social Work Theresa Perez [facility] Work Phone: [facility] Comment on above: IRVING (generalized anx iety disorder) ([facility]) Start: 05-25-2024 End: 05-25-2024 Office outpatient visit 25 minutes [facility]i Bridges MD [facility] Comment on above: 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); Acute deep vein thrombosis (DVT) of iliac vein of left lower extremity ([facility]) Start: 05-25-2024 End: 05-25-2024 [facility] Start: 04-27-2024 End: 04-27-2024 Office outpatient visit 25 minutes Jani Bridges MD Work Phone: [facility] Comment on above: 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); 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 ([facility]) Start: 04-27-2024 ambulatory [facility] Start: 04-03-2024 End: 04-11-2024 Orders Only Not In System Ref Prov [facility] Start: 02-10-2024 End: 02-10-2024 Office outpatient visit 15 minutes Jani Bridges MD Work Phone: [facility] Comment on above: Acute deep vein thro mbosis (DVT) of iliac vein of left lower extremity ([facility]) (Primary Dx); May-Thurner syndrome Start: 02-10-2024 ambulatory [facility] Start: 01-26-2024 End: 01-26-2024 [facility] Start: 01-24-2024 End: 01-26-2024 Evaluation and management of inpatient [facility] Start: 01-24-2024 End: 01-24-[address] [facility] Start: 01-24-2024 ambulatory [facility] Start: 01-23-2024 End: 01-26-2024 Evaluation and management of inpatient [facility] Start: 01-23-2024 End: 01-25-2024 Evaluation and management of inpatient [facility] Start: 04-03-2023 End: 04-03-[address] USMAN RODRIGEZ . Facility:[facility] Start: 07-26-2022 Encounter for gynecological examination (general) (routine) without abnormal findings DR EARLENE MCDONOUGH . [facility] Start: 07-22-2022 End: 07-22-[address] EARLENE [...] Screening for malign ant neoplasm of cervix [facility] Start: 07-31-2027 Screening for malign ant neoplasm of cervix Pap Smear [facility] Start: 08-24-2026 Screening for malign ant neoplasm of cervix Pap Smear [facility] Start: 06-06-2026 End: 06-06-2026 Patient encounter procedure 06/06/2026 8:30 AM EDT Office Visit [facility] [address] [place] [address] Jani Bridges MD [address] [facility] [address] [place] [address] [facility] Start: 05-31-2026 Adult BMI Screening Adult BMI Screen ing [facility] Start: 05-31-2026 Tobacco Screening Tobacco Screening [facility] Start: 05-27-2026 End: 05-27-2026 Patient encounter procedure 05/27/2026 8:30 AM EDT Appointment [facility] [address] [place] [id number] Jani Bridges MD [address] [facility] [address] [place] [address] [facility] Start: 08-06-2025 End: 08-06-2025 Patient encounter procedure 08/06/2025 10:00 AM EDT Office Visit [facility] [address] [place] [id number] Andre Treviño DO [address] [place] [address] [facility] Start: 07-16-2025 Influenza vaccination P [facility] Start: 05-31-2025 End: 05-31-2026 US.doppler Thoracic and Abdominal Aorta and Inferior Vena Cava and Illiac vessels Vas IVC/iliac duplex complete Vascular Ultrasound Routine May-Thurner syndrome Acute deep vein thrombosis (DVT) of iliac vein of left lower extremity ([facility]-HCC) Expected: 05/31/2025, Expires: 05/31/2026 [facility] Work Phone: Comment on above: Expected: 05/31/2025 , Expires: 05/31/2026 Start: 05-25-2025 Adult BMI Screening Adult BMI Screen ing [facility] Start: 05-25-2025 Tobacco Screening Tobacco Screening [facility] Start: 05-24-2025 End: 05-24-2025 Patient encounter procedure 05/24/2025 8:30 AM EDT Office Visit [facility] [address] [place] [place] [address] Jani Bridges MD [address], [address] [place] [address] [facility] Start: 04-17-2025 End: 04-17-2025 Patient encounter procedure 04/17/2025 8:00 AM EDT Office Visit [facility] [address] [facility] [place] [id number] Andre Treviño, DO [address] [facility] [address] [place], [place] [id number] [facility] Start: 04-03-2025 End: 04-03-2025 Patient encounter procedure 04/03/2025 9:20 AM EDT Office Visit [facility] [address] [facility] [place] [phone] Andre Treviño, DO [address] [facility] [place] [address] Arrived [facility] Comment on above: Arrived Start: 02-13-2025 Adult BMI Screening Adult BMI Screen ing [facility] Start: 02-13-2025 Tobacco Screening Tobacco Screening [facility] Start: 01-24-2025 Adult BMI Screening Adult BMI Screen ing [facility] Start: 01-23-2025 Tobacco Screening Tobacco Screening [facility] Start: 01-22-2025 Depression Screening Depression Scre ening [facility] Start: 10-17-2024 End: 10-17-2024 Social Work 10/17/2024 11:00 AM EST Social Work [facility] [address] [place] [address] Theresa Perez, [facility] [address] [place] [address] [facility] Start: 09-20-2024 End: 09-20-2024 Social Work 09/20/2024 8:00 AM EST Social Work [facility] [address] [place] [address] Theresa Perez, [facility] [address] [place] [address] Arrived [facility] Comment on above: Arrived Start: 09-06-2024 End: 09-06-2024 Social Work 09/06/2024 2:00 PM EDT Social Work [facility] [address] [place] [address] Theresa Perez, [facility] [address] [place] [address] [facility] Start: 08-31-2024 End: 08-31-2024 Patient encounter procedure [facility] Comment on above: Arrived Start: 08-30-2024 End: 08-30-2024 Social Work 08/30/2024 9:00 AM EDT Social Work [facility] [address] [place] [address] Theresa Perez, [facility] [address] [place] [address] [facility] Start: 08-10-2024 End: 08-10-2024 Social Work [facility] Comment on above: Arrived Start: 07-31-2024 End: 07-31-2024 Patient encounter procedure [facility] Comment on above: Arrived Start: 07-18-2024 End: 07-18-2024 Social Work 07/18/2024 11:00 AM EDT Social Work [facility] [address] [place] [address] Theresa Perez, [facility] [address] [place] [address] [facility] Start: 07-16-2024 COVID-19 Vaccine () COVID-19 Vaccine () [facility] Start: 07-16-2024 Influenza vaccination N [facility] Start: 05-25-2024 End: 05-25-2024 Patient encounter procedure 05/25/2024 8:50 AM EDT Office Visit [facility] [address] [place] [address] Jani Bridges MD [address], [address] [address] [facility] Start: 05-11-2024 End: 05-11-2024 Patient encounter procedure 05/11/2024 10:00 AM EDT Office Visit [facility] [address] [place] [address] Jani Bridges MD [address], [facility] [address] [place] [address] [facility] W[facility] [...] iliac vein of left lower extremity ([facility]) May-Thurner syndrome Expected: 02/25/2024 (Approximate), Expires: [facility]25 [facility] Comment on above: Expected: 02/25/2024 (Approximate), Expires: 02/10/2025 Start: 07-16-2023 Influenza vaccination Influenza Vacc ine [facility] Start: 02-14-2019 DTaP,Tdap and Td Vaccines (6 - Tdap) DTaP,Tdap and Td Vaccines (6 - Tdap) [facility] Start: 2013 Screening for malign ant neoplasm of cervix Pap Smear [facility] Start: 2010 Adult BMI Follow Up Plan Adult BMI Follow Up Plan [facility] Aerobic culture Aerobic culture Microbiology Routine Nipple discharge Nipple infection in female Ordered: 04/03/2025 [facility] Comment on above: Ordered: 04/03/2025 Anaerobic culture Anaerobic cult ure Microbiology Routine Nipple discharge Nipple infection in female Ordered: 04/03/2025 [facility] [employer] Work Phone: Comment on above: Ordered: 04/03/2025 Bacteria identified in Urine by Culture Urine culture Microbiology Routine UTI symptoms Ordered: 07/11/2024 [facility] Comment on above: Ordered: 07/11/2024 End: 04-27-2025 C-reactive protein C-reactive protein Lab Routine 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 ([facility]) 1 Occurrences starting 04/27/2024 until 04/27/2025 [facility] Comment on above: 1 Occurrences starti ng 04/27/2024 until 04/27/2025 CHLAMYDIA TRACHOMATI S (GENITO/STI) CHLAMYDIA TRACHOMATIS (GENITO/STI) Lab Routine Chronic bladder pain Ordered: 07/31/2024 [facility] Comment on above: Ordered: 07/31/2024 CHLAMYDIA TRACHOMATI S (GENITO/STI) CHLAMYDIA TRACHOMATIS (GENITO/STI) Lab Routine STD exposure Ordered: 07/11/2024 [facility] Comment on above: Ordered: 07/11/2024 Cytology Cervical or vaginal smear or scraping study Pap Smear Pathology and Cytology Routine Well woman exam with routine gynecological exam Ordered: 07/31/2024 [facility] Healthcare Work Phone: Comment on above: Ordered: 07/31/2024 End: 04-27-2025 Erythrocyte sedimentation rate Erythrocyte Sedimentation Rate (ESR) Lab Routine 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) 1 Occurrences starting 04/27/2024 until 04/27/2025 [facility] Comment on above: 1 Occurrences starti ng 04/27/2024 until 04/27/2025 Human papilloma viru s DNA [Presence] in Unspecified specimen by Probe with amplification HPV DNA probe, amplified Microbiology Routine Well woman exam with routine gynecological exam Ordered: 07/31/2024 [facility] Comment on above: Ordered: 07/31/2024 Neisseria gonorrhoea e DNA [Presence] in Unspecified specimen by MÓNICA with probe detection Neisseria gonorrhea DNA probe, direct Lab Routine Chronic bladder pain Ordered: 07/31/2024 [facility] Comment on above: Ordered: 07/31/2024 Neisseria gonorrhoea e DNA [Presence] in Unspecified specimen by MÓNICA with probe detection Neisseria gonorrhea DNA probe, direct Lab Routine STD exposure Ordered: 07/11/2024 [facility] Comment on above: Ordered: 07/11/2024 SURESWAB(R) ADVANCED VAGINITIS PLUS, TMA SURESWAB(R) ADVANCED VAGINITIS PLUS, TMA Pathology and Cytology Routine Chronic bladder pain Ordered: 07/31/2024 [facility] Comment on above: Ordered: 07/31/2024 SURESWAB(R) ADVANCED VAGINITIS PLUS, TMA SURESWAB(R) ADVANCED VAGINITIS PLUS, TMA Pathology and Cytology Routine Vaginal discharge Ordered: 07/11/2024 [facility] Work Phone: Comment on above: Ordered: 07/11/2024 Immunizations Immunization Date Immunization Notes Care Provider Сергей cheung 05-13-2021 SARS-CoV-2 (COVID-19 ) mRNA BNT-162b2 shanice ALVAREZ [facility] 04-22-2021 SARS-CoV-2 (COVID-19 ) mRNA BNT-162b2 shanice ALVAREZ [facility] 07-04-2019 hepatitis B vaccine, adult dosage SYDNEE JAMARI [facility] 05-02-2019 hepatitis B vaccine, adult dosage SYDNEE JAMARI [facility] 02-28-2019 hepatitis B vaccine, adult dosage SYDNEE JAMARI [facility] 02-13-2019 Td(adult) unspecifie d formulation SYDNEE JAMARI [facility] Comment on above: Result Comment: 2023: TENIVAC GIVEN BY DR RODRIGEZ IN [place] 07-11-1997 diphtheria, tetanus toxoids and acellular pertussis vaccine SYDNEE JAMARI [facility] 07-11-1997 measles, mumps and rubella virus vaccine SYDNEE JAMARI [facility] 07-11-1997 poliovirus vaccine, unspecified formulation SYDNEE JAMARI [facility] 06-23-1993 Hib, unspecified formulation SYDNEE JAMARI [facility] 06-23-1993 measles, mumps and rubella virus vaccine SYDNEE JAMARI [facility] 06-23-1993 poliovirus vaccine, unspecified formulation SYDNEE JAMARI [facility] 1992 Hib, unspecified formulation SYDNEE JAMARI [facility] 1992 Hib, unspecified formulation SYDNEE JAMARI [facility] 1992 poliovirus vaccine, unspecified formulation SYDNEE JAMARI [facility] 1992 Hib, unspecified formulation SYDNEE JAMARI [facility] 1992 poliovirus vaccine, unspecified formulation SYDNEE JAMARI [facility] Payers Date Payer Category Payer Self-pay 2024 Unknown [id number] 2022 [employer] [facility] - Other [id number] 2022 Private Health Insurance [id number] 2022 Unknown [id number]. 1.13.693.2.7.3.47583 1.315 2007 Unknown [id number] 1992 Unknown [id number] 2.16.840.1.591368.3.579.2.593 1992 Unknown [id number] 2.16.840.1.752597.3.579.2.593 1992 Unknown [id number] 2.16.840.1.166164.3.579.2.1286 1992 Unknown [id number] 2.16.840.1.490331.3.579.2.1286 1992 Unknown [id number] 2.16.840.1.317872.3.579.2.1285 1992 Unknown [id number] 2.16840.1.301936.3.579.2.1285 1992 Unknown [id number] 2.16840.1.082003.3.579.2.1285 1992 Unknown [id number] 2.840.1.354373.3.579.2.1285 1992 Unknown [id number] 2.840.1.916828.3.579.2.1285 1992 Unknown [id number] 2.0.1.684628.3.579.2.1285 1992 Unknown [id number] 2.840.1.171629.3.579.2.1285 1992 Unknown [id number] 2..1.693563.3.579.2.1285 1992 Unknown [id number] 2.0.1.807087.3.579.2.1258 1992 Unknown [id number] 2..1.705932.3.579.2.1258 1992 Unknown [id number] 2.840.1.829219.3.579.2.1258 1992 Unknown [id number] 2..1.352836.3.579.2.1258 1992 Unknown [id number] 2.840.1.339092.3.579.2.1258 1992 Unknown [id number] 2.840.1.542512.3.579.2.1258 1992 Unknown [id number] 2.840.1.165856.3.579.2.1258 1992 Unknown [id number] 2.840.1.590783.3.579.2.1258 1992 Unknown [id number] 2.16.840.1.544309.3.579.2.1259 1992 Unknown [id number] 2.16.840.1.583240.3.579.2.727 1992 Unknown [id number] 2.16.840.1.903336.3.579.2.727 1992 Unknown [id number] 2.16.840.1.809528.3.579.2.727 1992 Unknown [id number] 2.16.840.1.406735.3.579.2.727 1992 Unknown [id number] 2.16.840.1.416178.3.579.2.727 1992 Unknown [id number] 2.16.840.1.003459.3.579.2.1286 1992 Unknown [id number] 2.16.840.1.351161.3.579.2.1286 1992 Unknown [id number] 2.16.840.1.070380.3.579.2.196 1959 Medicaid [id number] 1959 Unknown [id number] 1959 Unknown [id number] 1959 Unknown [id number] Unknown [id number] Unknown [id number] 2.16.840.1.367787.3.579.2.531 Social History Date Type Detail Facility Start: 01-23-2024 End: 08-08-2024 Tobacco smoking status Ex-smoker (finding) [facility] Start: 12-26-2020 End: 07-31-2024 Sex Assigned At Unknown [facility] History of tobacco use Current smoker [facility] History of tobacco use Cigarette Smoker P [facility] Start: 12-26-2020 End: 07-31-2024 Cigarettes smoked current (pack per day) - Reported 0.5 [facility] Start: 01-23-2024 End: 07-31-2024 Tobacco use and exposure Smokeless tobacco non-user [facility] [employer] [facility] Start: 08-03-2024 End: 04-03-2025 Alcoholic beverage intake Lifetime non-drinker (finding) [facility] Start: 09-10-2023 Tobacco Comment 5 or less ciga rettes a day [facility] Start: 1992 Sex assigned at [facility] on file [facility] [employer] [facility] Start: 09-10-2023 [facility] sm[facility] Start: 02-14-2024 End: 05-31-2025 Alcoholic beverage intake [facility]drinker (finding) [facility] [employer] [facility] Has the [employer], [employer]uru, or water [employer] threatened to shut off services in your home in past 12Mo No [facility] [employer] System How often to you hav e a drink containing alcohol? Never [facility] [employer] System How many standard dr inks containing alcohol do you have on a typical day? Patient does not drink [facility] Tobacco smoking stat [facility] Unknown if ever smoked [facility] Work Phone: Start: 03-24-2018 End: 02-20-2025 Sex Female (finding) [facility] Start: 1990 Sex Assigned At Female F [facility] Sexual Orientation [facility] [place] Medical Equipment Procedure Code Equipment Code Equipment Origin al Text Equipment Identifier Dates Stent Vsc 18mm X 100mm Venous Nitinol Slf Expanding Abre - [id number] Start: 01-24-2024 Functional Status Date Assessment Result Facility 12-26-2024 Functional Status N/A [facility] 10-03-2024 Functional Status N/A [facility] 08-08-2024 Functional Status N/A [facility] Clinical Notes 02-10-2024 to 05-31-2025 Assessment & Plan Note - Jani Bridges MD - 05/31/2025 7:02 PM EDTAssessment & Plan Note - Jani Bridges MD - 05/31/2025 7:02 PM EDTheresa Bridges MD - 05/31/2025 8:30 AM EDT Note Date & Type Note Facility 05-31-2025 Evaluation + Plan note Associated Problem(s): DVT (deep venous thrombosis) ([facility]) Continue anticoagulation. [facility] 05-31-2025 Evaluation + Plan note Associated Problem(s): May-Thurner syndrome Continue antiplatelets. Duplex ultrasound in a year. [facility] 05-31-2025 Miscellaneous Notes Associated Problem(s): DVT (deep venous thrombosis) ([facility]) Continue anticoagulation. Associated Problem(s): May-Thurner syndrome Continue antiplatelets. Duplex ultrasound in a year. documented in this encounter [facility] 05-31-2025 History of Presen t illness [...] Performed by Jani Bridges MD at [facility] Social and Family History: [...] Plan: Problem List DVT (deep venous thrombosis) ([facility]) Current Assessment & Plan Continue anticoagulation. Relevant [...] iliac vein of left lower extremity ([facility]) - Vas IVC/iliac duplex complete; Future Jani Bridges MD, [place], RPVI, FSVS, FACS [facility] [employer] [facility] This note was created with the assistance of a speech recognition program. While intending to generate a timely document that accurately reflects the content of the visit, no guarantee can be provided that every grammatical or spelling mistake has been or will be identified or corrected. Thank you for your understanding. documented in this encounter [facility] 04-17-2025 History of Presen t illness Narrative Reason for Appointment: Patient ID: Tawana Silverman is a 35 y.o. female who presents for No chief complaint on file. Patient presents today via telephone call for a telehealth appointment. Patients Phone #: [phone] (mobile) Date: 04/17/2025 Time: 9:51 AM of [...] Andre Treviño DO documented in this encounter [facility] 04-03-2025 History of Presen t illness Narrative Reason for Appointment: Patient ID: Tawana Sliverman is a 35 y.o. female who presents [...] nursing note reviewed. Exam conducted with a blindstitch hemmer present. Vitals: Estimated body mass index is [...] Andre Treviño DO documented in this encounter [facility] 12-26-2024 Hospital Discharg e instructions Patient [...] Follow these instructions at home: Medicines Take tpge-vse-vovuzhm and prescription medicines only as told by [...] provider. Document Revised: 08/18/2023 Document Reviewed: 08/18/2023 [employer] Patient Education 2023 [employer]. Follow Up Care 10/03/2024 10:18:19 With:[facility] Address: When: Unknown Comments:Only if needed/new problems arise. No scheduled appointment indicated at this time. [facility] 12-26-2024 Note Patient Education Gastroenterology Abdominal Pain, [...] these instructions at home: Medicines ??? Take ndfo-alu-tbzuqix and prescription medicines only as told by [...] provider. Document Revised: 08/18/2023 Document Reviewed: 08/18/2023 [employer] Patient Education ? 2023 [employer]. [facility] 10-03-2024 Evaluation + Plan note Extrac casandra from: Title:Urology Progress Note Author:Gema HOYOS MD Date:10/03/24 Impression and Plan Impression: #1. She has urinary frequency, urgency and urge incontinence. 2. Her pelvic pain may be from endometriosis. Plan: #1. For now, she will try Myrbetriq 50 mg daily. Follow-up will be in 4 months for reevaluation. Future Appointments Appointment Date:12/26/2024 09:30:00 AM Scheduled Provider:SYNDEE ALVAREZ PA-C Location:[facility] Appointment Type:URO Office Visit Appointment Date:04/04/2025 01:00:00 PM Scheduled Provider:Julien HOYOS MD Location:[facility] Appointment Type:URO Office Visit [facility] 11-19-2024 Hospital Discharge instructions Patient Education 10/03/2024 [...] Up Care 08/18/2024 15:06:34 With:Julien HOYOS Address: [address] [place], [place] [address] Business (1) When:01/31/2025 10:02:39 Comments:With Roxane Alvarez [facility] 11-19-2024 NoteProgress Note-Physician Patient: TAWANA SILVERMAN Age: [...] All Problems Endometriosis (clinical) / SNOMED CT 990213174 / Confirmed Deep venous thrombosis / SNOMED CT 348269742 / Confirmed 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 Family History: Congenital heart disease Mother Primary malignant neoplasm of female breast Grandparent Alcoholism Mother Migraines Mother Procedure history: Thrombectomy (08798366) in 2023 at 34 Years. Salpingectomy (6673647662) on 01/07/2024 at 33 Years. Comments: 08/08/2024 8:57 Therese Lowe MA partial History of appendectomy (situation) (7662666080). History of - hysterectomy (context-dependent category) (818367850). Laparoscope (685853336). Comments: 08/08/2024 8:55 Therese Lowe MA pelvic [...] Follow-up will be in 4 months for reevaluation.[facility]:Result Comment: Electronically Signed By: ROMAIN NAVARRO, Julien Arana\Date and Time Signed: 10/03/24 10:13 [id number] NotePatient Education Custom Cystoscopy with Urethral Dilation [...] [facility] History of Present illness [...] nursing note reviewed. Exam conducted with a blindstitch hemmer present. Vitals: Estimated body mass index is [...] [facility] also [facility] patient to [facility] [...] of: Andre Treviño DO [id number] Hospital Discharge instructions Patient Education 08/08/2024 12:40:13 [...] known. Follow these instructions at home: Take tjcg-occ-gihdbat and prescription medicines only as told by [...] provider. Document Revised: 03/10/2022 Document Reviewed: 03/10/2022 [employer] Interactive Patient Education 2023 [employer]. Follow Up Care 08/03/2024 15:49:20 With:[facility] Address: [address] [address] Business (1) When: Unknown Comments:our art installer will be contacting you for follow-up [facility] 09-24-2024 NoteUrology Office/Clinic Note Chief Complaint Dr. [...] test anxiety. Knows she will need a hammer driver. Ordered: diazepam, See Instructions, 1 tab po 30-60 mins prior to cystoscopy, # 1 tab(s), Refills(s) 0, Pharmacy: [id number], 158, cm, 08/08/24 11:39:00 EDT, Height/Length Dosing, 60, kg, 08/08/24 11:39:00 EDT, Weight Dosing E&M of New Patient Moderate 45-59 Min 99927 2. Chronic pelvic pain in female (R10.2: Pelvic and perineal pain) Sp hysterectomy 2017 w several laproscopy d/t endometriosis. Had laproscopy Dec 2023 and bilat salpingectomy at that time. Pt reports no endometriosis found at that time. Will refer to [facility]PT at [facility] (her sx are a bit beyond my scope of PFPT) to assess for hypertonicpelvic floor, etc. Ordered: diazepam, See Instructions, 1 tab po 30-60 mins prior to cystoscopy, # 1 tab(s), Refills(s) 0, Pharmacy: [id number], 158, cm, 08/08/24 11:39:00 EDT, Height/Length Dosing, 60, kg, 08/08/24 11:39:00 EDT, Weight Dosing 73292 Measure Post Void residual urine and/or bladder capacity by US- non-imaging E&M of New Patient Moderate 45-59 Min 31197 Urnls Dip Stick Auto w/o Microscopy POC 46452 3. Recurrent vaginitis (N76.0: Acute vaginitis) Also reports frequent vaginal infections - bacterial and fungal. Ordered: diazepam, See Instructions, 1 tab po 30-60 mins prior to cystoscopy, # 1 tab(s), Refills(s) 0, [facility]acy: [id number], 158, cm, 08/08/24 11:39:00 EDT, Height/Length Dosing, 60, kg, 08/08/24 11:39:00 EDT, Weight Dosing E&M of New Patient Moderate 45-59 Min 69398 Follow-up With When Contact Information [facility] [place] [address] [place] [address] Business (1) Additional Instructions: our art installer will be contacting you for follow-up Patient Education Pelvic Pain, Female Problem List/Past Medical History Ongoing Anxiety Chronic bladder pain Chronic pelvic pain in female Deep venous thrombosis Endometriosis (clinical) Factor V deficiency Leukocytosis Migraine Recurrent vaginitis Historical No qualifying data Procedure/Surgical History Salpingectomy (01/07/2024), Thrombectomy (2023), H/O: hysterectomy, History of appendectomy, Laparoscope. Medications CV (more content not included)...[facility]: Result Comment: Electronically Signed By: SYDNEE ALVAREZ PA-C\Date and Time Signed: 08/08/2412:41 [id number] NotePatient Education Obstetrics and Gynecology Pelvic Pain, [...] Follow these instructions at home: ? Take ydec-zur-mgsawav and prescription medicines only as told by [...] provider. Document Revised: 03/10/2022 Document Reviewed: 03/10/2022 [employer] Patient Education ? 2023 [employer] 07-31-2024 History of Present illness Narrative* [...] nursing note reviewed. Exam conducted with a blindstitch hemmer present. Vitals: Estimated body mass index is [...] of: Andre Treviño DO documented in this encounterTwo [facility] Psychiatric [id number] History of Present illness Narrative* GEMA Earl [...] (Neurontin) 300 MG capsule 1 capsule HYDROcodone-acetaminophen ([place]) 5-325 MG tablet TAKE 1 TABLET EVERY 4 HOURS ibuprofen 800 MG tablet TAKE 1 TABLET EVERY 8 HOURS Lactobacillus Acid-Pectin (Acidophilus/[place] Pectin) tablet 1 tablet, Oral, Daily with [...] behalf of: GEMA Earl documented in this encounterTwo Rivers Psychiatric [id number] Evaluation + Plan note* Assessment & Plan Note - Jani Bridges MD - 05/25/2024 9:17 AM EDT Associated Problem(s): DVT (deep venous thrombosis) ([facility]) Continue anticoagulation for total of 6 months. She probably benefit from D- dimer check at that time. [facility]07-11-2024 Miscellaneous Notes* Assessment & Plan Note - Jani Bridges MD - 05/25/2024 9:17 AM EDTAssociated Problem(s): DVT (deep venous thrombosis) ([facility]) Continue anticoagulation for total of 6 months. She probably benefit from D- dimer check at that time. 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 She will continue aspirin indefinitely. She will get a surveillance imaging in a year. 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 She will continue aspirin indefinitely. She will get a surveillance imaging in a year. [facility]07-11-2024 History of Present illness Narrative* Jani [...] Performed by Jani Bridges MD at [facility] Social and Family History: [...] Plan: Problem List DVT (deep venous thrombosis) ([facility]) May-Thurner syndrome - Primary Current Assessment & [...] iliac vein of left lower extremity ([facility]) Jani Bridges MD, [place], RPVI, FSVS, FACS [...] you for your understanding. 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 Continue aspirin. 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 She will [...] Performed by Jani Bridges MD at [facility] Social and Family History: [...] you for your understanding. documented in this encounterP[facility]03[facility] History of Present illness Narrative* Jani Bridges MD - 02/10/2024 2:40 PM EDT Images from the original note were not included. [facility] [address] [facility] [id number] Subjective: Patient ID: Tawana Silverman is a [...] Problem List Diagnosis DVT (deep venous thrombosis) ([facility]) May-Thurner syndrome Current Outpatient Medications: [...] normal. Judgment: Judgment normal. Studies Reviewed Assesment: Twaana was seen today for follow-up. Diagnoses and all orders for this visit: Acute deep vein thrombosis (DVT) of iliac vein of left lower extremity ([facility]) May-Thurner syndrome Plan Plan: Eliquis ASA US of the left iliac veins F/U in 3 months Jani Bridges MD, [place] documented [facility] SystemEvaluation + Plan note No data available for this section [facility] evaluation + Plan note Future Appointments Appointment Date:04/04/2025 01:00:00 PM Scheduled Provider:Julien HOYOS MD Location:[facility] Appointment Type:URO Office Visit [facility] evaluation note* Diagnosis Vaginal discharge Leukorrhea, not [...] SystemEvaluation noteNo assessment information available [facility] Work Phone: Evaluation note* Diagnosis Nipple [...] lower extremity (CMS-HCC) [facility] encounter [facility] Dis[facility] instructions No data available for this section [facility] InstructionsNot on filedocumented in this encounter [facility] SystemInstructionsNot on filedocumented in this encounter [facility] SystemInstructionsNot on filedocumented in this encounter [facility] SystemInstructionsNot on filedocumented in this encounter [facility] SystemInstructionsNot on filedocumented in this encounter [facility] SystemInstructionsNot on filedocumented in this encounter [facility] SystemProgress note No data available for this section [facility] [employer] Summary Purpose Family History No Family History [...] complete Jani Bridges MD [address], [address] [address] Phone: Referral ID Status Reason Start Date Expiration Date V isits Requested Visits Authorized [id number] Pending Review 02/11/2024 02/10/2025 1 1 Specialty Diagnoses / Procedures Referred By Jeff hilton Referred To Contact Radiology Diagnoses 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 DATE CREATED AUTHOR AUTHOR'S ORGANIZ ATION 01/27/2024 [facility] DATE CREATED AUTHOR AUTHOR'S ORGANIZ ATION 05/31/2024 [facility] DATE CREATED AUTHOR AUTHOR'S ORGANIZ ATION 04/04/2025 [facility] DATE CREATED AUTHOR AUTHOR'S ORGANIZ ATION 04/11/2025 [facility] DATE CREATED AUTHOR AUTHOR'S ORGANIZ ATION 06/03/2025 [facility] DATE CREATED AUTHOR AUTHOR'S ORGANIZ ATION 06/27/2025 [facility] DATE CREATED AUTHOR AUTHOR'S ORGANIZ ATION 07/08/2025 [facility] Patient Care team informatio n (unrecognized section and content) Child Protective Investigator Relationship Specialty Start Date End Date Usman Rodrigez MD [address] [place] [address] PCP - General Family Medicine 03/24/23 Child Protective Investigator Relationship Specialty Start Date End Date Usman Rodrigez MD [address] [place] [address] PCP - General Family Medicine 03/24/23 Child Protective Investigator Relationship Specialty Start Date End Date Usman Rodrigez MD [address] [place] [address] PCP - General Family Medicine 03/24/23 Child Protective Investigator Relationship Specialty Start Date End Date Usman Rodrigez MD [address] [place] [facility] [place] [address] PCP - General Family Medicine 03/24/23 Child Protective Investigator Relationship Specialty Start Date End Date Usman Rodrigez MD [address] [facility] [place] [address] PCP - General Family Medicine 03/24/23 Child Protective Investigator Relationship Specialty Start Date End Date Usman Rodrigez MD [address] [facility] [place] [address] PCP - General Family Medicine 03/24/23 Child Protective Investigator Relationship Specialty Start Date End Date Usman Rodrigez MD [address] [place] [address] PCP - General 02/09/24 Child Protective Investigator Relationship Specialty Start Date End Date Usman Rodrigez MD [address] [place] [facility] [address] PCP - General 02/09/24 Child Protective Investigator Relationship Specialty Start Date End Date Usman Rodrigez MD [address] [place] [facility] [place] [address] PCP - General 02/09/24 Child Protective Investigator Relationship Specialty Start Date End Date Usman Rodrigez MD [address] [place] [facility] [place] [address] PCP - General 02/09/24 Team Status: Active Member Role Status Dates Usman Rodrigez MD Primary Care Provider Active Team Status: Inactive Member Role Status Dates Sydnee Alvarez PA-C Attending Provider Active Start: February 19, 2025 End: February 19, 2025 Usman Rodrigez MD Primary Care Provider Active Start: February 19, 2025 End: February 19, 2025 Child Protective Investigator Relationship Specialty Start Date End Date Usman Rodrigez MD PCP - General 02/09/24 Child Protective Investigator Relationship Specialty Start Date End Date Usman Rodrigez MD PCP - General Family Medicine 03/24/23 Theresa Perez, [facility] [address] [place] [address] Speech Communication Professor Behavioral Health 01/08/25 Child Protective Investigator Relationship Specialty Start Date End Date Usman Rodrigez MD PCP - General Family Medicine 03/24/23 Theresa Perez, [facility] [address] [place] [address] Speech Communication Professor Behavioral Health 01/08/25 Child Protective Investigator Relationship Specialty Start Date End Date Usman Rodrigez MD PCP - General Family Medicine 03/24/23 Theresa Perez, [facility] [address] [place] [address] Speech Communication Professor Behavioral Health 01/08/25 Child Protective Investigator Relationship Specialty Start Date End Date Usman Rodrigez MD PCP - General Family Medicine 03/24/23 Child Protective Investigator Relationship Specialty Start Date End Date Usman [...] BE BASED ON THE PRIMARY CLINICAL RECORDS. [employer] provides no warranty or guarantee of the accuracy or completeness of information in this document.
== END 2025-07-13 06:43 | disposition home or self-care (01) ==
LOC: MRI 06:42
PROVIDERS: PCP Family Medicine; Visit Provider Nurse Practitioner
DX: M51.362 Other intervertebral disc degeneration, lumbar region with discogenic back pain and lower extremity pain (principal)
CPT/HCPCS: 72148

== ENCOUNTER 2025-07-27 08:34 | Outpatient (OUT) | payer BC, SELFPAY ==
--- NOTE | 2025-07-25 09:24 | P.CN_ITS ---
Consult Note: HPI Data of Consult Patient: known to practice within the last 3 years Consult date: 07/25/25 Requesting Physician: Alka Wharton NP Primary Care Provider: Dank Alvarez MD Consult Narrative Reason for consult: low back and LLE pain Narrative: Tawana Silverman a pleasant 35 year old female with chronic left hip and pelvis pain, worsening after DVT and laparoscopy in 2023. Pt has been cleared by vascular, upcoming appointment with heme/onc for clotting disorders. pending consultation with orthopedics, recently underwent hip and sacrum MRI with minimal findings. Patient has failed to benefit from > 6 weeks of HEP and PT within the last 6 months for her left hip pain. Pain today 5/10 aching burning increasing to 10/10 with standing, walking, lying on left side, sitting, bending. Pain mildly improved with sleep and heat. recently underwent left SIJ injection with 40% improvement, but notes worsening low back and left leg numbness and burning pain. lumbar MRI completed with results below cc:: CC: Alka Wharton NP [facility] Medical History (Updated 07/11/25 @ 09:28 by Alka Wharton NP) COVID-19 ?U07.1 - COVID-19 (ICD-10) Migraine ?G43.909 - Migraine, unspecified, not intractable, without status migrainosus (ICD-10) Constipation ?K59.00 - Constipation, unspecified (ICD-10) Postoperative nausea and vomiting ?R11.2 - Nausea with vomiting, unspecified (ICD-10) ?Z98.890 - Other specified postprocedural states (ICD-10) Vaginal yeast infection ?B37.31 - Acute candidiasis of vulva and vagina (ICD-10) Bacterial vaginosis ?N76.0 - Acute vaginitis (ICD-10) ?B96.89 - Other specified bacterial agents as the cause of diseases classified elsewhere (ICD-10) Endometriosis ?N80.9 - Endometriosis, unspecified (ICD-10) Pelvic pain ?R10.2 - Pelvic and perineal pain (ICD-10) Surgical History History of colonoscopy ?Z98.890 - Other specified postprocedural states (ICD-10) History of hysterectomy ?Z90.710 - Acquired absence of both cervix and uterus (ICD-10) History of laparoscopy ?Z98.890 - Other specified postprocedural states (ICD-10) History of appendectomy ?Z90.49 - Acquired absence of other specified parts of digestive tract (ICD- 10) Family History Other Family history of breast cancer Family history of myocardial infarction Social History Within the past year, how often did you have a drink containing alcohol: never Score interpretation: A score less than 3 is consistent with normal alcohol consumption. 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 @ [employer] Highest level of school completed/degree received: Associate degree: academic program Meds Home Medications and Allergies Home Medications ?Medication ?Instructions ?Recorded ?Confirmed ?Type Lactobacillus acidophilus 10 100 mmu cells PO DAILY 07/02/25 History billion cell capsule (Probiotic) apixaban 2.5 mg tablet (Eliquis) mg 06/27/25 History aspirin 81 mg chewable tablet 06/27/25 History cyclobenzaprine 10 mg tablet 10 mg PO QDAY PRN muscle spasm 06/27/25 07/02/25 History Allergies Allergy/AdvReac Type Severity Reaction Status Date / Time No Known Drug Allergies Allergy Verified 07/02/25 08:11 Exam Constitutional Documenting provider has reviewed patient's vital signs: yes Common normals: no apparent distress, oriented x3, healthy appearing, alert and well nourished General appearance: cooperative HENMT Common normals: normocephalic, hearing grossly normal bilaterally and moist oral mucous membranes Head and scalp: normocephalic Eye Common normals: PERRL Pupil: PERRL Neck & C-Spine Common normals: full ROM General: normal visual inspection Chest Common normals: inspection of chest normal Respiratory Common normals: normal respiratory effort, no retractions and no use of accessory muscles Back & Pelvis Lumbar spine/lower back: ROM limited, pain with ROM, lumbar spinal tenderness and straight leg raise positive left Sacroiliac joints: SI joint(s) abnormal Other: significant tenderness over left PSIS left positive mark(patricks), gaenslens, thigh thrust, compression test decreased sensation left L4,5,S1 strength 3.5/5 in LLE and 5/5 in RLE Extremity Other: left hip moderate pain with internal/external rotation and hypersensitivity to left lateral thigh Neuro Common normals: oriented x3 Sensorium/orientation: alert Psych Common normals: mental status grossly normal, thought process normal, cooperative, affect normal, speech normal and activity/motor behavior normal Speech: normal speech Thought process: normal thought process Results Imaging lumbar mri: Attestation: I have reviewed the pertinent imaging results. Radiologist's impression: Multiecho imaging in the axial and sagittal plane was performed without contrast. Alignment is maintained on the sagittal sequences. There are no acute compression fractures or marrow edema. There is a hemangioma at L4. The conus medullaris terminates at L1. It is normal caliber and signal. No paraspinal soft tissue abnormalities are noted. From T12-L1 through L3-4, the discs are normal in height and signal intensity. There is no disc bulge or herniation. No central or foraminal stenosis is noted. At L4-5, there is slight loss of disc height and disc desiccation. There is mild asymmetric disc bulging through the right neural foramen extending laterally. No thecal sac effacement is present. Mild right inferior foraminal encroachment is seen. At the lumbosacral junction, there is slight loss of disc height and disc desiccation. There is minor disco-osteophytic bulging. Increased signal is noted at the annulus posteriorly which might be a tear. There is slight facet and ligamentous hypertrophy. No thecal sac effacement is present. There is mild inferior foraminal encroachment on both sides. 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 pt was referred to [facility] pain management by [facility] orthopedics, pending an injection of unknown type tomorrow with Dr Loyd at [facility]. will request records as discussed with pt. she would like to continue care with [facility] orthopedics and Dr Loyd at this time. f/u prn
--- OUTSIDE RECORDS SUMMARY | 2025-07-26 12:15 | XMS_ITS | Continuity of Care Document ---
Author Organization [facility] Address [address] [place] [address] Phone Care Team Providers Care Crew Supervisor Name Role Phone Dank Rodrigez MD Primary Care Provider Patricio Ledesma DO Attending Provider [phone] Tre Loyd MD Attending Provider Care Teams Patient Care Team Team Status: Active Member Role Status Ya Rodrigez MD Primary Care Provider Active Visit Care Team Team Status: Inactive Member Role Status Ya Rodrigez MD Primary Care Provider Active Start: July 23, 2025 End: July 23, 2025 Patricio Ledesma DO Attending Provider Active S tart: July 23, 2025 End: July 23, 2025 Patient Care Team Team Status: Inactive Member Role Status Ya Rodrigez MD Primary Care Provider Active Start: July 26, 2025 End: July 26, 2025 Tre Loyd MD Attending Provider Active Sta rt: July 26, 2025 End: July 26, 2025 Chief Complaint and Reason for Visit Chief Complaint Admit Date TB CONSULT DR RODRIGEZ LT HIP PAIN MRI [facility] S epteer 2024 9:33am CONSULT DR LEDESMA LT HIP July 26, 2025 3:49pm Reason for Visit Admit Date Disorder of left sacroiliac joint Septem brandon 2024 9:33am Low back pain July 26, 2025 3:49pm Other chronic pain July 26, 2025 3:49pm Sacroiliitis, not elsewhere classified S eptember 2024 3:49pm Allergies, Adverse Reactions, Alerts Allergen Type Severity Reaction Last Updated Verified Status No Known Allergies Allergy Unknown 2024 9:41am Yes Active Social History Smoking Status Unknown if ever smoked Observation Status Observation Response Date of Response Legal Sex Female (finding) Sex Assigned At Female February Problems Active Problems Medical Problem Onset Date Status History of DVT (deep vein thrombosis) Unknown Active Low back pain Unknown Active Other chronic pain Unknown Active 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 Sacroiliitis, not elsewhere classified Unknown Active Medications Medication Status Dose Units Route Directions Qty Days St art Date Stop Date End Date Instructions Adherence Aspirin 81 mg tablet Active 81 MG PO Daily 2024 12:00a m Unknown Cyclobenzap rine 5 mg tablet Active 5 MG PO Three times daily as needed 2024 12:00a m Unknown Apixaban (Eliquis) 2.5 mg tablet Active 2.5 MG PO Twice daily 2024 12:00a m Unknown Vital Signs Vital Reading Result Reference Range Collection Date/Time Height 62 [in_i] July 23, 2025 9:40am Weight 61.23 kg July 23, 2025 9:40am BMI (Body Mass Index) 24.7 kg/m2 2024 9:40am Advance Directives Advance Directive Response Recorded Date/ Time Advance Directives No August 25, 2024 9:33am Insurance Providers Guarantor Tawana Silverman Address [address] [place] [phone] Contact Info. Home Phone: Payer Policy Id Subscriber's Name Subscriber Id Effectiv e Date Expiration Date Toni FU [id number] Tawana Silverman [id number] March Encounters Encounter Location(s) Arrival/Admit Date Discharge/Depart Date Provider(s) Departed Physician/Prov ider Office Visit -[facility] [place] July 23, 2025 9:33am July 23, 2025 10:20am Patricio Ledesma DO Departed Physician/Prov ider Office Visit -[facility] July 26, 2025 3:49pm July 26, 2025 4:14pm Lili Hernandez MD Recent Diagnosis Onset Date Admit Date Disorder of left sacroiliac joint Unknown July 23, 2025 9:33am Low back pain Unknown July 26, 2025 3:49pm Other chronic pain Unknown July 3:49pm Sacroiliitis, not elsewhere classified Unknown July 26, 2025 3:49pm Assessments Diagnosis Onset Date Resolution Status Admit Date Disorder of left sacroiliac joint acute July 23, 025 9:33am Low back pain acute July 162024 3:49pm Other chronic pain acute 2024 3:49pm Sacroiliitis, not elsewhere classified acute July 26, 2025 3:49pm Plan of Treatment Author Patricio Ledesma [facility] Authored July 23, 2025 10:56am Tawana presents with left SIJ dysfunction. At this juncture we have discussed the findings and diagnosis as well as personally reviewed appropriate imaging and performed interpretation of related testing and examination with the patient in office today. Prior medical notes from Dr. Rodrigez and history have been reviewed. She recently had left SI joint injection here in [place]. This was supposedly done under fluoroscopy but no imaging was able to be identified from this procedure and no dye was placed in the joint per the operative report. I would recommend doing this under fluoroscopy with dye placement and we will plan to get this set up at [facility]. I will see her back 3 weeks after this injection to discuss results. The patient has been involved in our cooperative treatment plan and agrees to move forward with treatment at this time. Radiographs reviewed with patient today. Discussed I do believe the pain is coming from her SI joint. Discussed with patient we will have her follow up with Dr. Lucas Loyd to discuss repeat SI joint injection. Instructed patient to pay attention to her pain before and after the injection. We will obtain previous op reports from [facility]. Patient is to schedule with Dr. Lucas Loyd to discuss SI joint injection. Note scribed by IRENE Limon, reviewed and amended by myself Patricio Ledesma D.O. Author Benjie De Oliveira [facility] Authored July 26, 2025 4:13pm Patients primary complaint t marvin is severe [side if applicable] low lumbar and gluteal pain. *In the assessment you will want to follow this up by saying P lula shows notable tenderness over sacroiliac joints on exam and is a reasonable candidate for a [laterality] SI joint injection[s] which we will proceed with. [Insert procedure understanding] We will plan to follow up with the patient one week following her procedure, sooner if needed. [Insert anatomy] Future Tests Future scheduled test information is unavailable Pending Tests Pending diagnostic test information is unavailable Future Visits Future appointment information is unavailable Referrals to Other Providers Referral information is unavailable Future Procedures Future procedure information is unavailable Future Medications Future medication information is unavailable Patient Instructions Instruction Admit Date Low back pain in adults July 26, 2025 3:49pm
--- OUTSIDE RECORDS SUMMARY | 2025-07-27 08:37 | XMS_ITS | Encounter Summary ---
Author Organization [employer] Address [id number] [address] 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 ([facility]) Social History Tobacco Use Types Packs/Day Years Used Date Smoking Tobacco: Former Cigarettes Smokeless Tobacco: Never Alcohol Use Standard Drinks/Week Comments Not Currently 0 (1 standard drink = 0.6 oz pur e alcohol) [facility] Utilities Answer Date Recorded In the past 12 months has th [employer], gas, oil, or water company threatened [...] 05/27/2026 8:30 AM EDT Appointment [facility] - Vascular [address] [place] [address] Jani Bridges MD [address], [address] [address] 06/06/2026 8:30 AM EDT Office Visit [facility] [address] [place] [address] Jani Bridges MD [address], [address] [place] [address] documented as of this encounter Visit Diagnoses 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
--- OUTSIDE RECORDS SUMMARY | 2025-07-27 08:37 | XMS_ITS | Clinical Summary ---
Author Organization [facility] Address [address] [place] [address] Care Team Providers Care Cascade Operator Name Role Phone Dank Alvarez MD Primary Care Provider [phone] Allergies No known active allergies Medications Probiotic [...] [facility] External Department Unsolicited Dionne Bridges MD from Last 3 Months Family History Relation [...] EDT Office Visit [facility] [address] [place] [id number] Andre Treviño DO [address] [place], [place] [address] Health Maintenance Due Date Last Done Comments [...] AM EDT Narrative 05/23/2025 10:41 [place] [address] Ultrasound Report Signed Patient: TAWANA MCMAHON MR#: [id number] : 1990 Acct:[id number] Age/Sex: 35 / F ADM Date: 05/23/25 Loc: US Attending Dr: Dionne Bridges M.D. Ordering Physician: Dionne Bridges M.D. Date of Service: 05/23/25 Procedure(s): US duplex IVC Accession Number(s): [id number] cc: Dank Alvarez M.D.; Dionne Bridges M.D. [place] [address] Patient Name: TAWANA MCMAHON MRN: [id number] date: 1990 Sex: F Assigned Patient Location: US Current Patient Location: US Accession/Order Number: [id number] Exam Date: 05/23/2025 10:35 Report Date: 05/23/2025 [...] 05/23/2025 10:38 AM Dictation Location: [place] [address] Electronically authenticated by: [id number] Y Date: 05/23/2025 10:38 Dictated By: Gaby Lay M.D. Signed By: 05/23/25 1041 DD/ 1038 TD/TT: Chemical Analyst: Procedure Note Radiology, Radiologist, MD - 05/23/2025 [place] [address] Ultrasound Report Signed Patient: TAWANA MCMAHON RMR#: [id number] : 1990Acct:[id number] Age/Sex: 35 / FADM Date: 05/23/25 Loc: US Attending Dr: Dionne Bridges M.D. Ordering Physician: Dionne Bridges M.D. Date of Service: 05/23/25 Procedure(s): US duplex IVC Accession Number(s): [id number] cc: Dank Alvarez M.D.; Dionne Bridges M.D. [place] [address] Patient Name: TAWANA MCMAHON MRN: [id number] date: 1990 Sex: F Assigned Patient Location: Current Patient Location: US Accession/Order Number: [id number] Exam Date: 05/23/2025 10:35 Report Date: 05/23/2025 [...] 05/23/2025 10:38 AM Dictation Location: [place] [address] Electronically authenticated by: [id number] Y Date: 0:38 Dictated By: Gaby Lay M.D. Signed By:05/23/25 1041 DD/ 1038 TD/TT: Chemical Analyst: Dionne Bridges MD IMG US PROCEDURES Final [...] Most Recently Relevant to Health Maintenance Insurance [facility] Care Teams Cascade Operator Relationship Specialty Start Date End Date Dank Alvarez MD PCP - General Family Medicine 03/24/23
--- OUTSIDE RECORDS SUMMARY | 2025-07-27 08:37 | XMS_ITS | Encounter Summary ---
Author Organization [employer] Address [id number] [address] [place] [address] Care Team Providers Care Diamond Assorter Name Role Phone Dank Alvarez MD Primary Care Provider [phone] Reason for Referral * Specialty Diagnoses / Procedures Referred By Contkahlil t Referred To Contact Vascular Surgery [facility] [address] [place] [address] Phone: tel: fax: Referral ID Status Reason Start Date Expiration Date Visits Re quested Visits Authorized Encounter Details Date Type Department Care Team ([facility] st Contact Info) Description 08/28/2024 Orders Only [facility] [address] [place] [address] Dank Alvarez MD [address] [facility], [place] [address] Social History Tobacco Use Types Packs/Day Years Used Date Smoking Tobacco: Former Cigarettes Smokeless Tobacco: Never Alcohol Use Standard Drinks/Week Comments Not Currently 0 (1 standard drink = 0.6 oz pur e alcohol) [facility] Utilities Answer Date Recorded In the [...] 05/27/2026 8:30 AM EDT Appointment [facility] - Vascular [address] [place] [address] Jani Bridges MD [address], [address] [address] 06/06/2026 8:30 AM EDT Office Visit [facility] [address] [place] [address] Jani Bridges MD [address], [address] [address] documented as of this encounter Procedures Procedure [...] documented as of this encounter Care Teams Diamond Assorter Relationship Specialty Start Date End Date Dank Alvarez MD PCP - General 02/09/24 documented as of this encounter
--- OUTSIDE RECORDS SUMMARY | 2025-07-27 08:37 | XMS_ITS | Encounter Summary ---
Author Organization [employer] Address [id number] [address] [place] [address] Care Team Providers Care Environmental Officer Name Role Phone Dank Alvarez MD Primary Care Provider [phone] Encounter Details Date Type Department Care Team (Late st Contact Info) Description 02/14/2024 Orders Only [facility] [address] [place] [address] Josiane Arroyo LPN Social History Tobacco Use Types Packs/Day Years Used Date Smoking Tobacco: Former Cigarettes Smokeless Tobacco: Never Alcohol Use Standard Drinks/Week Comments Not Currently 0 (1 standard drink = 0.6 oz pur e alcohol) [facility] Utilities Answer Date Recorded In the [...] Info) Description 05/27/2026 8:30 AM EDT Appointment [facility] - Vascular [address] [place] [address] Jani Bridges MD [address] [address] 06/06/2026 8:30 AM EDT Office Visit [facility] [address] [place] [address] Jani Bridges MD [address] [address] documented as of this encounter Visit Diagnoses Not on filedocumented in this encounter Additional Health Concerns Assessment Noted Time PHQ-9 Depression Total Score: 0 01/23/20 24 7:47 PM EDT documented as of this encounter Care Teams Environmental Officer Relationship Specialty Start Date End Date Dank Alvarez MD PCP - General 02/09/24 documented as of this encounter
--- OUTSIDE RECORDS SUMMARY | 2025-07-27 08:37 | XMS_ITS | Encounter Summary ---
Author Organization [employer] Address [facility][id number] [address] [place] [address] Care Team Providers Care Cadworx Piping Designer Name Role Phone Dank Alvarez MD Primary Care Provider [phone] Encounter Details Date Type Department Care Team (Late st Contact Info) Description 05/11/2024 Orders Only [facility] [address] [place] [address] Jani Bridges MD [address], [address] [address] Social History Tobacco Use Types Packs/Day Years Used Date Smoking Tobacco: Former Cigarettes Smokeless Tobacco: Never Alcohol Use Standard Drinks/Week Comments Not Currently 0 (1 standard drink = 0.6 oz pur e alcohol) [facility] Utilities Answer Date Recorded In the past 12 months has e [employer], gas, oil, or water [employer] threatened to shut off services in your [...] 05/27/2026 8:30 AM EDT Appointment [facility] - Vascular [address] [place] [address] Jani Bridges MD [address], [address] [place] [address] 06/06/2026 8:30 AM EDT Office Visit [facility] [address] [place] [address] Jani Bridges MD [address], [address] [place] [address] documented as of this encounter Procedures Procedure [...] documented as of this encounter Care Teams Cadworx Piping Designer Relationship Specialty Start Date End Date Dank Alvarez MD PCP - General 02/09/24 documented as of this encounter
--- OUTSIDE RECORDS SUMMARY | 2025-07-27 08:37 | XMS_ITS | Encounter Summary ---
Author Organization [facility] Address [address] [place] [address] Care Team Providers Care Strawberry Grower Name Role Phone Dank Alvarez MD Primary Care Provider [phone] Deborah Perez [facility] Unavailable [phone] Encounter Details Date Type Department Care Team (Late Contact Info) Description 04/11/2025 Orders Only [facility] [address] [place] [address] Patti Tarango LPN [address] [facility] [address] [facility] Social History Tobacco Use Types Packs/Day [...] AM EDT Office Visit [facility] [address] [facility] [place] [address] Andre Treviño DO [address] [place] [phone] documented as of this encounter Procedures Procedure [...] on filedocumented in this encounter Care Teams Strawberry Grower Relationship Specialty Start Date End Date Dank Alvarez MD PCP - General Family Medicine 03/24/23 Deborah Perez, [facility] [address] [place] [address] Warehouse Foreman [facility] 01/08/25 05/07/25 documented as of this encounter
--- OUTSIDE RECORDS SUMMARY | 2025-07-27 08:37 | XMS_ITS | Encounter Summary ---
Author Organization [employer] Address [id number] [address] [place] [address] Care Team Providers Care Broadcast Traffic Coordinator Name Role Phone Dank Alvarez MD Primary Care Provider [phone] Encounter Details Date Type Department Care Team (Late st Contact Info) Description 04/26/2024 Orders Only [facility] [address] [place] [address] Nabila Strong CMA Acute deep vein thrombosis (DVT) of iliac vein of left lower extremity (CMS-HCC); May-Thurner syndrome Social History Tobacco Use Types Packs/Day Years Used Date Smoking Tobacco: Former Cigarettes Smokeless Tobacco: Never Alcohol Use Standard Drinks/Week Comments Not Currently 0 (1 standard drink = 0.6 oz pur e alcohol) [facility] Utilities Answer Date Recorded In the past 12 months has e [employer], gas, oil, or water [employer] threatened to shut off services in your [...] Info) Description 05/27/2026 8:30 AM EDT Appointment [facility] - Vascular [address] [place] [address] Jani Bridges MD [address], [address] [place] [address] 06/06/2026 8:30 AM EDT Office Visit [facility] [address] [place] [address] Jani Bridges MD [address], [address] [place] [address] documented as of this encounter Visit Diagnoses Diagnosis Acute deep vein thrombosis (DVT) of iliac vein of left lower extremity ([facility]) 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
--- OUTSIDE RECORDS SUMMARY | 2025-07-27 08:38 | XMS_ITS | Encounter Summary ---
Author Organization [employer] Address [id number] [address] [place] [address] Care Team Providers Care Drill Press Operator Name Role Phone Dank Alvarez MD Primary Care Provider [phone] Encounter Details Date Type Department Care Team (Late st Contact Info) Description 05/10/2025 Telephone [facility] [address] [place] [address] Jani Bridges MD [address], [facility] [address] [place] [address] Social History Tobacco Use Types Packs/Day Years Used Date Smoking Tobacco: Former Cigarettes Smokeless Tobacco: Never Alcohol Use Standard Drinks/Week Comments Not Currently 0 (1 standard drink = 0.6 oz pur e alcohol) [facility] Utilities Answer Date Recorded In the past 12 months has e [employer], gas, oil, or water [employer] threatened to shut off services in your [...] Info) Description 05/27/2026 8:30 AM EDT Appointment [facility] - Vascular [address] [place] [address] Jani Bridges MD [address], [address] [address] 06/06/2026 8:30 AM EDT [facility] Visit [facility] [address] [place] [address] Jani Bridges MD [address], [address] [address] documented as of this encounter Visit Diagnoses Not on filedocumented in this encounter Additional Health Concerns Assessment Noted Time PHQ-9 Depression Total Score: 0 01/23/20 7:47 PM EDT documented as of this encounter Care Teams Drill Press Operator Relationship Specialty Start Date End Date Dank Alvarez MD PCP - General 02/09/24 documented as of this encounter
--- OUTSIDE RECORDS SUMMARY | 2025-07-27 08:38 | XMS_ITS | Encounter Summary ---
Author Organization [employer] Address [id number] [address] [place] [address] Care Team Providers Care Rent Collector Name Role Phone Dank Alvarez MD Primary Care Provider [phone] Encounter Details Date Type Department Care Team (Late st Contact Info) Description 05/15/2024 Orders Only [facility] [address] [place] [address] Jani Bridges MD [address], [facility] [address] [place] [address] Social History Tobacco Use Types Packs/Day Years Used Date Smoking Tobacco: Former Cigarettes Smokeless Tobacco: Never Alcohol Use Standard Drinks/Week Comments Not Currently 0 (1 standard drink = 0.6 oz pur e alcohol) [facility] Utilities Answer Date Recorded In the past 12 months has e [employer], gas, oil, or water [employer] threatened to shut off services in your [...] Appointment [facility] - Vascular [address] [place] [address] Jani Bridges MD [address], [address] [place] [address] 06/06/2026 8:30 AM EDT Office Visit [facility] [address] [place] [address] Jani Bridges MD [address], [address] [place] [address] documented as of this encounter Procedures Procedure [...] documented as of this encounter Care Teams Rent Collector Relationship Specialty Start Date End Date Dank Alvarez MD PCP - General 02/09/24 documented as of this encounter
--- OUTSIDE RECORDS SUMMARY | 2025-07-27 08:38 | XMS_ITS | Encounter Summary ---
Author Organization [employer] Sys [employer] Address [id number] [address] 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; Acute deep vein thrombosis (DVT) of iliac vein of left lower extremity ([facility]) Social History Tobacco Use Types Packs/Day Years Used Date Smoking Tobacco: Former Cigarettes Smokeless Tobacco: Never Alcohol Use Standard Drinks/Week Comments Not Currently 0 (1 standard drink = 0.6 oz pur e alcohol) [facility] Utilities Answer Date Recorded In the past 12 months has th [employer], gas, oil, or water [employer] threatened to shut off services in your [...] Info) Description 05/27/2026 8:30 AM EDT Appointment [facility] - Vascular [address] [place] [address] Jani Bridges MD [address], [address] [place] [address] 06/06/2026 8:30 AM EDT Office Visit [facility] [address] [place] [address] Jani Bridges MD [address], [address] [place] [address] documented as of this encounter Visit Diagnoses 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
--- OUTSIDE RECORDS SUMMARY | 2025-07-27 08:38 | XMS_ITS | Encounter Summary ---
Author Organization [facility] Address [address] [place] [address] Care Team Providers Care Records And Tape Recordings Engineer Name Role Phone Dank Alvarez MD Primary Care Provider [phone] Deborah Perez [facility] Unavailable [phone] Encounter Details Date Type Department Care Team (Late Contact Info) Description 05/24/2024 Abstract [facility] [address] [place] [phone] Andre Treviño DO [address], [place] [address] Social History Tobacco Use Types Packs/Day Years [...] Upcoming Encounters Date Type Department Care Team ([facility] Contact Info) Description 08/06/2025 10:00 AM EDT Office Visit [facility] [address] [place] [phone] Andre Treviño DO [address], [place] [phone] documented as of this encounter Visit Diagnoses Not on filedocumented in this encounter Care Teams Records And Tape Recordings Engineer Relationship Specialty Start Date End Date Dank Alvarez MD PCP - General Family Medicine 03/24/23 Deborah Perez, [facility] [address] [place] [address] [facility] 01/08/25 05/07/25 documented as of this encounter
--- OUTSIDE RECORDS SUMMARY | 2025-07-27 08:38 | XMS_ITS | Encounter Summary ---
Author Organization [facility] Address [address] [place] [address] Care Team Providers Care Certified Dialysis Technician Name Role Phone Dank Alvarez MD Primary Care Provider [phone] Deborah Perez [facility] Unavailable [phone] Encounter Details Date Type Department Care Team (Late Contact Info) Description 08/28/2024 Abstract [facility] [address] [place] [address] Andre Treviño DO [address], [place] [address] Social History Tobacco Use Types Packs/Day Years [...] Upcoming Encounters Date Type Department Care Team ([facility] Contact Info) Description 08/06/2025 10:00 AM EDT Office Visit [facility] MONTERO [address] [place] [phone] Andre Treviño DO [address], [facility]11 documented as of this encounter Visit Diagnoses Not on filedocumented in this encounter Care Teams Certified Dialysis Technician Relationship Specialty Start Date End Date Dank Alvarez MD PCP - General Family Medicine 03/24/23 Deborah Perez, [facility] [address] [place] [address] [facility] 01/08/25 05/07/25 documented as of this encounter
--- OUTSIDE RECORDS SUMMARY | 2025-07-27 08:38 | XMS_ITS | Encounter Summary ---
Author Organization [employer] Address [id number] [address] 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 ([facility]) Social History Tobacco Use Types Packs/Day Years Used Date Smoking Tobacco: Former Cigarettes Smokeless Tobacco: Never Alcohol Use Standard Drinks/Week Comments Not Currently 0 (1 standard drink = 0.6 oz pur e alcohol) [facility] Utilities Answer Date Recorded In the past 12 months has th [employer] electric, gas, oil, or water company threatened [...] Description 05/27/2026 8:30 AM EDT Appointment [facility] - Vascular [address] [place] [address] Jani Bridges MD [address], [address] [address] 06/06/2026 8:30 AM EDT Office Visit [facility] [address] [place] [address] Jani Bridges MD [address], [address] [place] [address] documented as of this encounter Visit Diagnoses 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
--- OUTSIDE RECORDS SUMMARY | 2025-07-27 08:38 | XMS_ITS | Encounter Summary ---
Author Organization [employer] Address [id number] [address] 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 Acute deep vein thrombosis (DVT) of iliac vein of left lower extremity ([facility]) Procedures Vas IVC/iliac duplex complete Jani Bridges MD [address] [place] [address] Phone: tel: fax: Referral ID Status Reason Start Date Expiration Date V isits Requested Visits Authorized [id number] Authorized 05/07/2025 05/07/2026 1 1 Encounter Details Date Type Department Care Team (Late st Contact Info) Description 05/07/2025 Orders Only [facility] [address] [place] [address] Nabila Strong CMA 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); 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; Acute deep vein thrombosis (DVT) of iliac vein of left lower extremity ([facility]) Social History Tobacco Use Types Packs/Day Years Used Date Smoking Tobacco: Former Cigarettes Smokeless Tobacco: Never Alcohol Use Standard Drinks/Week Comments Not Currently 0 (1 standard drink = 0.6 oz pur e alcohol) [facility] Utilities Answer Date Recorded In [...] 05/27/2026 8:30 AM EDT Appointment [facility] - Vascular [address] [place] [address] Jani Bridges MD [address], [address] [address] 06/06/2026 8:30 AM EDT Office Visit [facility] [place] [place] [address] Jani Bridges MD [address], [address] [address] Scheduled Orders Name Type Priority Associated Diagnoses [...] documented as of this encounter Care Teams Card Decorator Relationship Specialty Start Date End Date Dank Alvarez MD PCP - General 02/09/24 documented as of this encounter
--- OUTSIDE RECORDS SUMMARY | 2025-07-27 08:38 | XMS_ITS | Encounter Summary ---
Author Organization [facility] Address [address] [place] [address] Care Team Providers Care Director Clinical Research Name Role Phone Dank Alvarez MD Primary Care Provider [phone] Deborah Perez [facility] Un[facility] [phone] Encounter Details Date Type Department Care Team (Late Contact Info) Description 05/08/2024 Clinisync Result Encounter [facility] External Department Unsolicited Dionne Bridges MD [address], [address] [address] Social History Tobacco Use Types Packs/Day Years [...] Office Visit [facility] [address] [place] [address] Andre Treviño DO [address] [place] [address] documented as of this encounter Procedures Procedure Name Priority Date/Time Associated Diagnosis Comments CT ANGIOGRAM UPPER EXTREMITY LEFT 05/08/2024 8:18 AM EDT documented in this encounter Results * CT angiogram upper extremity left (05/08/2024 8:18 AM EDT) Anatomical Region Laterality Modality Upper Extremities Left Computed Tomog bear 05/08/2024 8:18 AM EDT Narrative 05/08/2024 8:21 [place] [address] CT Scan Report Signed Patient: TAWANA MCMAHON MR#: [id number] : 1990 Acct:[id number] Age/Sex: 34 / F ADM Date: 05/05/24 Loc: CT Attending Dr: Dionne Bridges M.D. Ordering Physician: Dionne Bridges M.D. Date of Service: 05/05/24 Procedure(s): CT angio UE LT Accession Number(s): [id number] cc: Dank Alvarez M.D. [place] [address] Patient Name: TAWANA MCMAHON MRN: [id number] date: 1990 Sex: F Assigned Patient Location: CT Current Patient Location: Accession/Order Number: [id number] Exam Date: 05/05/2024 08:40 Report Date: 05/08/2024 [...] M.D. Signed By: 05/08/24820 DD/ 7 TD/TT: Batch Still Operator: Procedure Note Radiology, Radiologist, - 05/09/2024 [place] [address] CT Scan Report Signed Patient: TAWANA MCMAHON RMR#: [id number] : 1990Acct:[id number] Age/Sex: 34 / FADM Date: 05/05/24 Loc: CT Attending Dr: Dionne Bridges M.D. Ordering Physician: Dionne Bridges M.D. Date of Service: 05/05/24 Procedure(s): CT angio UE LT Accession Number(s): [id number] cc: Dank Alvarez M.D. [place] [address] Patient Name: TAWANA MCMAHON MRN: [id number] date: 1990 Sex: F Assigned Patient Location: CT Current Patient Location: Accession/Order Number: [id number] Exam Date: 05/05/2024 08:40 Report Date: 05/08/2024 [...] Mccray M.D. Signed By:05/08/24820 DD/ 7 TD/TT: Batch Still Operator: us Dionne Bridges MD IMG CT PROCEDURES Final Resu lt documented in this encounter Visit Diagnoses Not on filedocumented in this encounter Care Teams Director Clinical Research Relationship Specialty Start Date End Date Dank Alvarez MD PCP - General Family Medicine 03/24/23 Deborah Perez, [facility] [address] [facility] [address] [place] [address] Repairer And Checker Behavioral [facility] 01/08/25 05/07/25 documented as of this encounter
--- OUTSIDE RECORDS SUMMARY | 2025-07-27 08:38 | XMS_ITS | Encounter Summary ---
Author Organization [employer] Address [id number] [address] [place] [address] Care Team Providers Care Mixed Livestock Farmer Name Role Phone Dank Alvarez MD Primary Care Provider [phone] Encounter Details Date Type Department Care Team (Late st Contact Info) Description 01/24/2024 Orders Only [facility] [address] [place] [phone] Transcribe, Orders Support User Pain (Primary Dx) Social History Tobacco Use Types Packs/Day Years Used Date Smoking Tobacco: Former Cigarettes Smokeless Tobacco: Never Alcohol Use Standard Drinks/Week Comments Not Currently 0 (1 standard drink = 0.6 oz pur e alcohol) [facility] Utilities Answer Date Recorded In the [...] Info) Description 05/27/2026 8:30 AM EDT Appointment [facility] - Vascular [address] [place] [address] Jani Bridges MD [address], [address] [address] 06/06/2026 8:30 AM EDT Office Visit [facility] [address] [place] [address] Jani Bridges MD [address], [facility] [address] [place] [address] documented as of this encounter Results * Vas venous duplex lwr single left (01/23/2024 10:20 AM EDT) us Scanning Provider External CV VASCULAR ORDERABLE S Final [facility] documented in this encounter Visit Diagnoses Diagnosis Pain- Primary Generalized pain documented in this encounter Additional Health Concerns Assessment Noted Time PHQ-9 Depression Total Score: 0 01/23/20 24 7:47 PM EDT documented as of this encounter Care Teams Mixed Livestock Farmer Relationship Specialty Start Date End Date Dank Alvarez MD PCP - General 02/09/24 documented as of this encounter
--- OUTSIDE RECORDS SUMMARY | 2025-07-27 08:38 | XMS_ITS | Clinical Summary ---
Author Organization [employer] [facility] Address [id number] [address] 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; Acute deep vein thrombosis (DVT) of iliac vein of left lower extremity ([facility]) 05/29/2025 Travel 05/23/2025 10:00 AM EDT Ancillary Procedure [facility] [address] [place] [phone] Pain 05/10/2025 Telephone [facility] [place] [address] Jani Bridges MD 05/07/2025 Orders Only [facility] [place] [place] [address] Nabila Strong CMA 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); 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; Acute deep vein thrombosis (DVT) of iliac vein of left lower extremity ([facility]) 05/07/2025 Telephone [facility] [place] [place] [address] Kaity Newman from Last 3 Months Immunizations No known immunizations Social History Tobacco Use Types Packs/Day Years Used Date Smoking Tobacco: Former Cigarettes Smokeless Tobacco: Never Tobacco Cessation:Counseling Given: Not Answered Alcohol Use Standard Drinks/Week Comments Not Currently 0 (1 standard drink = 0.6 oz pur e alcohol) [facility] Utilities Answer Date Recorded In the past 12 months has [employer], gas, oil, or water [employer] threatened to shut off services in your [...] 05/27/2026 8:30 AM EDT Appointment [facility] - Vascular [address] [place] [address] Jani Bridges MD [address], [address] [address] 06/06/2026 8:30 AM EDT Office Visit [facility] [place] [address] Jani Bridges MD [address], [facility] [address] [place] [address] Health Maintenance Due Date Last Done Comments DTaP,Tdap and Td Vaccines (6 - Tdap) 02/14/2019 02/13/2019, 07/11/1997, 06/23/1993, Additional history exists Depression Screening 01/22/2025 01/23/2024 COVID-19 Vaccine (2024-2 6 season) 2025 05/13/2021, 04/22/2021 Influenza Vaccine 07/16/2025 Adult BMI Screening 05/31/2026 05/31/2025 Tobacco Screening 05/31/2026 05/31/2025 Pap Smear 07/31/2027 07/31/2024, 08/24/2023 Medical Devices Implanted Type Area Business Performance Specialist Device Identifier Shelf Expiration Date Model / Serial / Lot Stent Vsc 18mm X 100mm Venous Nitinol Slf Expanding Abre - [id number] Implanted:Qty: 1 on 01/24/2024 by Jani Bridges MD at [facility] Stent Left: Vena Cava [employer] [facility] 12/16/2026 [id number] / / [id number] Procedures Procedure Name Priority Date/Time Associated Diagnosis [...] 2:36 PM 01/25/2024 4:20 PM Care Teams Water Filterer Relationship Specialty Start Date End Date Dank Alvarez MD PCP - General 02/09/24
--- OUTSIDE RECORDS SUMMARY | 2025-07-27 08:38 | XMS_ITS | Encounter Summary ---
Author Organization [facility] Address [address] [place] [address] Care Team Providers Care Bellman Name Role Phone Dank Alvarez MD Primary Care Provider [phone] Deborah Perez [facility] Un[facility] [phone] Encounter Details Date Type Department Care Team (Late Contact Info) Description 04/18/2024 Clinisync Result Encounter [facility] External Department Unsolicited Dionne Bridges MD [address], [address] [address] Social History Tobacco Use Types Packs/Day Years [...] Office Visit [facility] [address] [place] [address] Andre Treviño DO [address], [place] [address] documented as of this encounter Procedures Procedure Name Priority Date/Time Associated Diagnosis Comments VASC US IVC ILIAC DUPLEX COMPLETE 04/18/2024 11:15 AM EDT documented in this encounter Results * Vascular US IVC iliac duplex complete (04/18/2024 11:15 AM EDT) Anatomical Region Laterality Modality Abdomen Ultrasound 04/18/2024 11:1 5 AM EDT Narrative 04/18/2024 11:18 [place] [address] Ultrasound Report Signed Patient: TAWANA MCMAHON MR#: [id number] : 1990 Acct:[id number] Age/Sex: 34 / F ADM Date: 04/17/24 Loc: US Attending Dr: Dionne Bridges M.D. Ordering Physician: Dionne Bridges M.D. Date of Service: 04/17/24 Procedure(s): US duplex IVC Accession Number(s): [id number] cc: Dank Alvarez M.D.; Dionne Bridges M.D. [place] [address] Patient Name: TAWANA MCMAHON MRN: [id number] date: 1990 Sex: F Assigned Patient Location: US Current Patient Location: Accession/Order Number: [id number] Exam Date: 04/17/2024 11:29 Report Date: 04/18/2024 [...] Signed By: 04/18/24 1118 DD/ 1115 TD/TT: Housing Inspector: Procedure Note Radiology, Radiologist, - 04/19/2024 [place] [address] Ultrasound Report Signed Patient: TAWANA MCMAHON RMR#: [id number] : 1990Acct:[id number] Age/Sex: 34 / FADM Date: 04/17/24 Loc: US Attending Dr: Dionne Bridges M.D. Ordering Physician: Dionne Bridges M.D. Date of Service: 04/17/24 Procedure(s): US duplex IVC Accession Number(s): [id number] cc: Dank Alvarez M.D.; Dionne Bridges M.D. [address] [place] [address] Patient Name: TAWANA MCMAHON MRN: [id number] date: 1990 Sex: F Assigned Patient Location: US Current Patient Location: Accession/Order Number: [id number] Exam Date: 04/17/2024 11:29 Report Date: 04/18/2024 [...] Duplex Doppler demonstrates normal waveform and flow, [id number] cm/s within mid IVC. Left iliac stent [...] M.D. Signed By:04/18/24 1118 DD/ 1115 TD/TT: Housing Inspector: us [facility] Cyrus NAVARRO IM US PROCEDURES Final Resu lt documented in this encounter Visit Diagnoses Not on filedocumented in this encounter Care Teams Bellman Relationship Specialty Start Date End Date Dank Alvarez MD PCP - General Family Medicine 03/24/23 Deborah Perez, [facility] [address] [facility] [address] [place] [address] Spray Gunner [facility] 01/08/25 05/07/25 documented as of this encounter
--- OUTSIDE RECORDS SUMMARY | 2025-07-27 08:38 | XMS_ITS | Encounter Summary ---
Author Organization [email or web address] Sys tem Address [facility]-[id number] [address] [place] [address] Care Team Providers Care Roving Or Yarn Color Checker Name Role Phone Dank Alvarez MD Primary Care Provider [phone] Encounter Details Date Type Department Care Team (Late st Contact Info) Description 05/07/2025 Telephone [facility] [address] [place] [address] [place] [phone] Kaity Newman Social History Tobacco Use Types [...] iliac duplex/IVC. She needs order sent to [facility]. Fax number is [phone]. Please send over as pt has upcoming appt with Dr. Bridges on 05/24. Pt would like a call back when completed [phone] is best number for [place]. * Telephone Encounter - Nabila Strong CMA - 05/07/2025 1:56 PM EDT Put order in and called patient and let her know its been faxed, Let her know to give them a coupledays , then call to get scheduled * Telephone Encounter - Mireya Peace - 05/07/2025 1:56 PM EDT Patient is calling because [facility] is asking that the last office visit note be sent for them to start prior authorization for her test. [employer] Operator faxed office visit note and order together as requested by patient. documented in this encounter Plan of Treatment Upcoming Encounters Date Type Department Care Team (Late st Contact Info) Description 05/27/2026 8:30 AM EDT Appointment [facility] - Vascular [address] [place] [address] Jani Bridges MD [address], [address] [address] 06/06/2026 8:30 AM EDT Office Visit [facility] [address] [place] [address] Jani Bridges MD [address], [facility] [address] [place] [address] documented as of this encounter Visit Diagnoses Not on filedocumented in this encounter Additional Health Concerns Assessment Noted Time PHQ-9 Depression Total Score: 0 01/23/20 24 7:47 PM EDT documented as of this encounter Care Teams Roving Or Yarn Color Checker Relationship Specialty Start Date End Date Dank Alvarez MD PCP - General 02/09/24 documented as of this encounter
--- OUTSIDE RECORDS SUMMARY | 2025-07-27 08:38 | XMS_ITS | Encounter Summary ---
Author Organization [facility] Address [address] [place] [address] Care Team Providers Care Currency Examiner Name Role Phone Dank Alvarez MD Primary Care Provider [phone] Deborah Perez [facility] Unavailable [phone] Encounter Details Date Type Department Care Team (Late Contact Info) Description 08/09/2024 Abstract [facility] [address] [place] [address] Andre Treviño DO [address], [place] [address] Social History Tobacco Use Types Packs/Day Years [...] 10:00 AM EDT Office Visit [facility] MONTER[facility] [place] [phone] Andre Treviño DO [address], [facility] documented as of this encounter Visit Diagnoses Not on filedocumented in this encounter Care Teams Currency Examiner Relationship Specialty Start Date End Date Dank Alvarez MD PCP - General Family Medicine 03/24/23 Deborah Perez, [facility] [address] [place] [address] Punch Machine Hand Behavioral [facility] 01/08/25 05/07/25 documented as of this encounter
--- OUTSIDE RECORDS SUMMARY | 2025-07-27 08:41 | XMS_ITS | CCD ---
Author Organization [facility] CliniSynm Care Team Providers Care Cone Examiner Name Role Phone RAIN ., DR MARY [...] ., DR MARY Primary Care Unavailable ADDISON, SUYAPAAMED F Admitting Unavailable DADISON, MOHAMED F Attending Unavailable FLORA LAL Referring [...] Provider Usman Rodrigez MD Primary Care Provider Chris [facility], Theresa Martinez Unavailable ANDRE TREVIÑO Attending Unavailable CHRIS, THERESA Martinez Attending Unavailable FARIHA, BHARTI Attending Unavailable CHRIS, THERESA L Attending Unavailable ANDRE TREVIÑO Attending Unavailable CHRIS, THERESA L Attending Unavailable HUDSON, ANDRE Attending Unavailable PEREZ, THERESA L Attending Unavailable HOYOS, Julien R Referring Unavailable ANTONIO, SYDNEE E Attending Unavailable ANTONIO, SYDNEE E Attending Unavailable HOYOS, Julien R Admitting Unavailable HOYOS, Julien R Attending Unavailable HOYOS, Julien R Referring Unavailable HOYOS, Julien R Attending Unavailable HOYOS, Julien R Referring Unavailable HOY, USMAN M Referring Unavailable HOY, USMAN M Primary Care Unavailable ADDISON, MOHAMED F Attending Unavailable HOVero, USMAN M Referring Unavailable HOY, USMAN M Primary Care Unavailable Hoy, Usman M Primary Care Unavailable Antonio, Sydnee E Attending Unavailable Antonio, Sydnee E Admitting Unavailable Kirit Pierce MD Attending Unavailable Usman Rodrigez MD Primary Care Provider [phone] Patricio Bentley DO Attending Provider [phone] Lul Loyd MD Attending Provider [phone] Allergies Allergy Classification Reported Allergen(s) Allergy Type Date of Onset Reaction(s) Facility (1 source) No Known Medication Allergies; Translations: [No Known Medication Allergies] Propensity to adverse reactions (disorder) [facility] Repository Medications Current Medications Medication Drug [...] tablet (20 sources) Factor Xa Inhibitor Start: 07-23-2025 take 1 tablet by mouth twice daily Start: 05-15-2025 ELIQUIS 2.5 mg tablet Take [...] tablet 0 01/25/2024 Active aspirin 81 mg oral tablet (14 sources) Platelet Aggregation Inhibitor, Nonsteroidal Anti-inflammatory Drug Start: 07-23-2025 take 1 tablet by mouth once daily Start: 08-08-2024 [facility] ASP[facility] 81 MG CHEWABLE TAB [facility] ASP[facility] 81 MG CHEWABLE TAB Start Date: 08/08/24 Status: Ordered Repeat number: 1 Start: 08-08-2024 [facility] ASP[facility] 81 MG CHEWABLE TAB [facility] ASP[facility] 81 MG CHEWABLE TAB Start Date: 08/08/24 Status: Ordered Start: 02-11-2024 End: 03-02-2025 aspirin 81 mg chewable table t CHEW 1 TABLET (81 MG TOTAL) AND SWALLOW IN THE MORNING. 90 tablet 30 03/02/2025 Active Start: 01-26-2024 End: 02-25-2024 take 1 [...] 21 capsule 06/27/2024 07/04/2024 Active cyclobenzaprine hydrochloride 5 mg oral tablet (10 sources) Muscle Relaxant Start: 07-23-2025 take 1 tablet by mouth three times daily as needed Start: 09-04-2024 take 0.5 tablet by m outh three times daily as needed for pain cyclobenzaprine (Flexeril) 10 MG tablet Indications: Chronic bladder pain Take 0.5 tablets (5 mg) by mouth 3 (three) times a day as needed (pain) for up to 10 days 30 tablet 09/04/2024 Active diazePAM 5 mg oral tablet (2 sources) Benzodiazepine Start: 08-08-2024 Valium 5 mg Ta b See Instructions, 1 tab po 30-60 mins prior to cystoscopy, # 1 tab(s), Refills(s) 0, Pharmacy: [facility]/pharmacy #[id number], 158, cm, 08/08/24 11:39:00 EDT, Height/Length Dosing, 60, kg, 08/08/24 11:39:00 EDT, Weight Dosing Start Date: 08/08/24 Status: Ordered Doxycycline (12 sources) Tetracycline-class Drug Start: 08-08-2024 doxycy costa 100 mg Start Date: 08/08/24 Status: Ordered [...] capsule 1 capsule 05/26/2024 Active lactobacillus acidophilus [id number] unt / pectin 100 mg oral tablet (15 sources) take 1 tablet by mouth once daily at breakfast acidophilus-pect in, citrus 25 million cell -100 mg tablet Take 1 tablet by mouth daily with breakfast. Active End: 07-31-2024 take 1 tablet by mouth at mealtime Lactobacillus Acid-Pectin (Acidophilus/[place] Pectin) tablet Take 1 tablet by mouth [...] Daily, # 30 tab(s), Refills(s) 6, Pharmacy: [facility]/pharmacy #[id number], 158, cm, 08/08/24 11:39:00 EDT, Height/Length Dosing, 60, kg, 08/08/24 11:39:00 EDT, Weight Dosing Start Date: 10/03/24 Status: Ordered Nataliias Christianney Probiotic (4 sources) Start: 08-08-2024 Nataliias Bounty Probiotic Oral, Daily Start Date: 08/08/24 Status: Ordered Repeat number: 1 Start: 08-08-2024 [facility] Probiotic Oral, Daily Start Date: [...] Agonist Start: 01-07-2024 End: 07-31-2024 HYDROcodone-acetam inophen ([place]) 5-325 MG tablet TAKE 1 TABLET EVERY [...] procedure, # 2 tab(s), Refills(s) 0, Pharmacy: [facility]/pharmacy #[id number], 158, cm, 08/08/24 11:39:00 EDT, [...] Classification Problem Date Documented Da te Episodic/Chronic Adjustment disorders (1 source) Adjustment disorder [...] Episodic Other diseases of veins and lymphatics (12 sources) Iliac vein compression syndrome; Translations: [Compression of vein] Onset: 02-11-2024 04-27-2024 Episodic Other female genital disorders (4 sources) Vaginal discharge; Translations: [Other specified noninflammatory disorders of vagina] 08-31-2024 Episodic Other nervous system disorders (2 sources) Chronic pain; Translations: [Other chronic pain] 07-26-2025 Chronic Other non-traumatic joint disorders (2 sources) Disorder of left sacroiliac joint; Translations: [Joint disorder, unspecified] 07-23-2025 Episodic Peripheral and visceral atherosclerosis (7 sources) 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, other extremity; Translations: [Occlusion of artery of upper extremity] Onset: 04-27-2024 04-27-2024 Chronic Phlebitis; thrombophlebitis and thromboembolism (18 sources) Acute embolism and thrombosis of left iliac vein; Translations: [Acute embolism and thrombosis of unspecified deep veins of unspecified lower extremity] Onset: 01-23-2024 08-08-2024 Episodic Residual codes; unclassified (1 source) Acquired absence of both cervix and uterus; Translations: [ACQUIRED ABSENCE BOTH CERVIX AND UTERUS] Onset: 04-08-2023 Episodic Residual codes; unclassified (2 sources) Pain, unspecified; Translations: [Pain, unspecified] Onset: 01-24-2024 Episodic Spondylosis; intervertebral disc disorders; other back problems (2 sources) Inflammation of sacroiliac joint; Translations: [Sacroiliitis, not elsewhere classified] 07-26-2025 Chronic Spondylosis; intervertebral disc disorders; other back problems (2 sources) Low back pain; Translations: [Low back pain] 07-26-2025 Episodic Substance-related disorders (1 source) Nicotine dependence, [...] Problem Date Documented Date Episodic/Chronic Abdominal pain (20 sources) Unspecified abdominal [...] Translations: [Compression of vein] Onset: 02-11-2024 Episodic Results Test Name Value Interpretation Reference Range Facility US.doppler Thoracic and Abdo rinku Aorta and Inferior Vena Cava and Illiac vesselson 05-23-2025 [place] [address] Ultrasound Report Signed Patient: TAWANA SILVERMAN MR#: [id number] : 1990 Acct:[id number] Age/Sex: 35 / F ADM Date: 05/23/25 Loc: US Attending Dr: Jani Bridges M.D. Ordering Physician: Jani Bridges M.D. Date of Service: 05/23/25 Procedure(s): US duplex IVC Accession Number(s): [id number] cc: Usman Rodrigez M.D.; Jani Bridges M.D. [place] [id number] Patient Name: TAWANA SILVERMAN MRN: [facility]:[id number] date: 1990 Sex: F Assigned Patient Location: US Current Patient Location: US Accession/Order Number: [id number] Exam Date: 05/23/2025 10:35 Report Date: 05/23/2025 [...] Lay M.D. 05/23/2025 10:38 AM Dictation Location: [place] [address] Electronically authenticated by: [id number] Date: 05/23/2025 10:38 Dictated By: Gaby Lay M.D. Signed By: 05/23/25 1041 DD/ 1038 TD/TT: Motorcycle Delivery Driver: [facility] Radiology, Radiologist, - 05/23/2025 [place] [address] Ultrasound Report Signed Patient: TAWANA SILVERMAN MR#: [id number] : 1990 Acct:[id number] Age/Sex: 35 / F ADM Date: 05/23/25 Loc: US Attending Dr: Jani Bridges M.D. Ordering Physician: Jani Bridges M.D. Date of Service: 05/23/25 Procedure(s): US duplex IVC Accession Number(s): [id number] cc: Usman Rodrigez M.D.; Jani Bridges M.D. The [address] [address] Patient Name: TAWANA SILVERMAN MRN: [facility]:[id number] date: 1990 Sex: F Assigned Patient Location: US Current Patient Location: US Accession/Order Number: [id number] Exam Date: 05/23/2025 10:35 Report Date: 05/23/2025 [...] AND ILIAC VEINS. Impression dictated by: Gaby aLy M.D. 05/23/2025 10:38 AM Dictation Location: [place] [address] Electronically authenticated by: [id number] Y Date: 05/23/2025 10:38 Dictated By: Gaby Lay M.D. Signed By: 05/23/25 1041 DD/ 1038 TD/TT: Motorcycle Delivery Driver: [facility] SocialGuide Radiology Study observation (narrative) [facility] US.doppler Thoracic and Abdo rinku Aorta and Inferior Vena Cava and Illiac vesselsOrdered By: Radiologist Radiology on 05-23-2025 [facility] [employer] Work Phone: Urology Office/Clinic Noteon 12-26-2024 [...] has improved. Has been doing PFPT at [facility] since August. Noticing a lot of improvement [...] cystoscopy, # 1 tab(s), Refills(s) 0, Pharmacy: [facility] #[id number], 158, cm, 08/08/24 11:39:00 EDT, Height/Length Dosing, 60, kg, 08/08/24 11:39:00 EDT, Weight Dosing E&M of Est. Patient Low 20-29 Min 41060 Urnls Dip Stick Auto w/o Microscopy POC [id number] Follow-up With When Contact Information [facility] Additional Instructions: Only if needed/new problems arise. No scheduled appointment indicated at this time. Problem List/Past Medical History Ongoing Anxiety Chronic bladder pain Chronic pelvic pain in female Deep venous thrombosis Endometriosis (clinical) Factor V deficiency Leukocytosis Migraine Recurrent vaginitis Historical No qualifying data Procedure/Surgical History Salpingectomy (01/07/2024), Thrombectomy (2023), H/O: hysterectomy, History of appendectomy, Laparoscope. Medications [facility] ASPIRIN 81 MG CHEWABLE TAB, 0 Eliquis [...] 2024-08-08: TENIVAC GIVEN BY DR RODRIGEZ IN [place] poliovirus vaccine, inactivated 07/11/1997 Recorded measles/mumps/rubella virus [...] Dipstick: 2+ (100 mg/dl) (12/26/24 10:01:00) Specific [place] Urine Dipstick: 1.025 (12/26/24 10:01:00) Urine Appearance Urine Dipstick: Clear (12/26/24 10:01:00) Urine Color Urine Dipstick: Yellow (12/26/24 10:01:00) Urobilinogen Urine Dipstick: Normal 0.2-1 EU/dl (12/26/24 10:01:00) pH Urine Dipstick: 6.5 (12/26/24 10:01:00) Normal [facility] Comment on above: Result Comment: Elec tronically Signed By: SYDNEE ALVAREZ PA-C.br\Date and Time Signed: 12/26/24 10:31 EST Main OR Preoperative Recordo n 11-13-2024 Main OR Preoperative Record Main OR Preoperative Record Holding Area Document Type FTURO Summary Primary Physician: Julien HOYOS MD Finalized Date/Time: 11/13/24 16:38:17 Pt. Name: SALOMETAWANA./Sex: 1990 Female Med Rec #: [id number] Physician: Julien HOYOS MD Financial #: [id number] Pt. Type: O Room/Bed: / Admit/Disch: 10/03/24 [...] Complaints of Pain: No Skin Integrity Intact, [place], Warm, & Dry Vitals - EU Blood Pressure 109/72 Pulse 80 bpm Respirations 20 br/min SPO2 97 % Additional None RN Reviewed Yes Specimens Collected Last Modified By: Sirisha CAROLINA, Elizabet Pearson 10/03/24 09:45:24 Finalized By: GAGE Howell RN, Ruthann Document Signatures Signed By: Shalonda Jane LPN 10/03/24 09:28 Lynda CAROLINA, Lyudmila ALMONTE 11/13/24 16:38 Normal [facility] Main OR Intraoperative Recor don 10-03-2024 Main OR Intraoperative Record Main OR Intraoperative Record IntraOp Document Type FTURO Summary Primary Physician: Julien HOYOS MD Finalized Date/Time: 10/03/24 10:05:10 Pt. Name: SALOME TAWANA Mccormack./Sex: 1990 Female Med Rec #: [id number] Physician: Julien HOYOS MD Financial #: [id number] Pt. Type: O Room/Bed: / Admit/Disch: 10/03/24 [...] Nel Pearson Role Performed Surgeon - Primary Operator Electronic Warfare - Primary Scrub - Primary Time In [...] Class 2 - Clean-Contaminated Last Modified By: Elizabet Grimm RN 10/03/24 10:00:05 General Case Data FTURO Pre-Care [...] Sirisha CAROLINA, Elizabet Applicable) Deepa Pearson, Yusuf CHILDREN'S AUTHOR, Nel Jason Time Out Complete 10/03/24 09:54:00 [...] By: Elizabet Grimm RN 10/03/24 10:05 Normal [facility] Operative Reporton Operative Report Operative Report [...] urine. The Urethra was dilated to: 30 Swazi w/ sounds. Devices Implanted: None. Removal: Cystoscope is removed, The patient tolerated it well. Postoperative Information Discharge: Patient is discharged home with antibiotic coverage, Follow up arranged. She will start Myrbetriq 50 mg daily. Follow-up will be in 4 months. Normal [facility] Comment on above: Result Comment: Elec mariannaally Signed By: ROMAIN NAVRARO, Julien Arana\Date and Time Signed: 10/03/24 10:11 EST IGP,APTIMA HPV,AGE GDLNon AGE GDLN ACOG TESTING Note . [facility] Comment on above: TESTS RESULT FLAG UN ITS REF RANGE LAB Clinician Provided Cytology Information Source.............Vagina No. of containers..01 ThinPrep Vial Age Algo ACOG Eneida... FLAG LEGEND: L-Low Normal,H-High Normal,LL-Alert Low,HH-Alert High <-Panic Low,>-Panic High,A-Abnormal,AA-Critical Abnormal Performed at: 01 =G [address] [place] [address] Sandy Lemon MD, HPV APTIMA Negative Negative [facility] Comment on above: This nucleic acid am plification test detects fourteen high- risk HPV types (16,18,31,33,35,39,45,51,52,56,58,59,66,68) without differentiation. Performed at: =G [facility] [address] [facility] [place], [place] [id number] Field Service Manager: Sandy Lemon MD, Phone: [phone] Performed at: [facility] [address] [place], [place] [id number] Field Service Manager: Holden Croft MD, Phone: [phone] IGP, APTIMA HPV, RFX 16/18,[address] [facility] Comment on above: TESTS RESULT FLAG UN ITS REF RANGE LAB DIAGNOSIS: 02 NEGATIVE FOR INTRAEPITHELIAL LESION OR MALIGNANCY. Specimen adequacy: 02 Satisfactory for evaluation. Performed by: Sola Aviles, Robotic Technician (ASC) . 02 Note: Note 03 The Pap [...] High <-Panic Low,>-Panic High,A-Abnormal,AA-Critical Abnormal Performed at: [address] [place] [address] Cyto [address]o [address] [place] [address] Holden Croft MD, [address] [address] Sandy Lemon MD, SPATULA-ALONE VAGINA [facility] No Panel Informationon 07-12 STAPHYLOCOCCUS EPIDERMIDIS, HAEMOLYTICUS, LUGDUNENSIS, SAPROPHYTICUS (URINA 0.000 [facility] STAPHYLOCOCCUS EPIDERMIDIS, HAEMOLYTICUS, LUGDUNENSIS, SAPROPHYTICUS (URINA Not detected [facility] URINARY TRACT INFECTION (HTR X)on 07-12-2024 [...] - righton 04-03-2024 Radiology Study observation (narrative) [facility] US.doppler Upper extremity v ein - rightOrdered By: Janet Almaguer on 04-03-2024 Radiology Study observation (narrative) [facility] US.doppler Lower extremity a rtery - righton 03-31-2024 [facility] US.doppler Upper extremity v ein - rightOrdered By: Janet Almaguer on 03-30-2024 [facility] BASIC METABOLIC PANLon 01-24 Anion gap [Moles/Vol] 7 mmol/L Normal 5-15 [facility] Comment on above: Performed By: #### C BCA, PINR, 14116-4, BMP #### [facility] ([id number]) [address], [address] [place] [address] Calcium [Mass/Vol] 8.7 mg/dL Normal 8.5-10.5 [facility] Comment on above: Performed By: #### C BCA, PINR, 32677-5, BMP #### [facility] ([id number]) [address], [address] [place] [address] Chloride [Moles/Vol] 106 mmol/L Normal 98-109 [facility] Comment on above: Performed By: #### C BCA, PINR, 09844-3, BMP #### [facility] ([id number]) [address], [address] [place] [address] CO2 [Moles/Vol] 23 mmol/L Normal 22-32 [facility] Comment on above: Performed By: #### C BCA, PINR, 64723-0, BMP #### [facility] ([id number]) [address], [address] [place] [address] Creatinine [Mass/Vol] 0.57 mg/dL Normal 0.40-1.00 [facility] Comment on above: Result Comment: METH OD TRACEABLE TO IDMS STANDARD Performed By: #### C BCA, PINR, 60435-5, BMP #### [facility] ([id number]) [address] [place] [address] eGFR (CKD-EPI) NON-RACE DEPENDENT >90 Normal >59 [facility] Comment on above: Result Comment: Reported eGFR is based on the CKD-EPI 2020 equation that does not use a race coefficient. Performed By: #### C BCA, PINR, 76798-0, BMP #### [facility] ([id number]) [address] [place] [address] Glucose [Mass/Vol] 139 mg/dL High 65-99 [facility] Comment on above: Performed By: #### C BRENNON, PINR, 26019-8, BMP #### [facility] ([id number]) [address] [address] Potassium [Moles/Vol] 4.3 mmol/L Normal 3.5-5.0 [facility] Comment on above: Performed By: #### C BRENNON, PINR, 11782-6, BMP #### [facility] ([id number]) [address] [address] [place] [address] Sodium [Moles/Vol] 136 mmol/L Normal 134-146 [facility] Comment on above: Performed By: #### C BCA, PINR, 81481-4, BMP #### [facility] ([id number]) [address] [address] Urea nitrogen [Mass/Vol] 6 mg/dL Normal 5-23 [facility] Comment on above: Performed By: #### C BCA, PINR, 17114-9, BMP #### [facility] ([id number]) [address] [address] CBC AND AUTO DIFFon 01-25-20 24 ABSOLUTE BASOPHIL 0.0 X10E9/L Normal 0.0-0.2 [facility] Comment on above: Performed By: #### C SADAF WILLETT, 35040-0, BMP #### [facility] ([id number]) [address], [address] [place] [address] ABSOLUTE NEUTROPHIL 2.9 X10E9/L Normal 1.5-6.6 [facility] Comment on above: Performed By: #### C SADAF WILLETT, 41209-9, BMP #### [facility] ([id number]) [address], [address] [place] [address] Basophils/100 WBC (Bld) 0.1 % Normal [facility] Comment on above: Performed By: #### C SADAF WILLETT, 44668-2, BMP #### [facility] ([id number]) [address], [address] [place] [address] Eosinophils (Bld) [#/Vol] 0.0 10*3/uL Normal 0.0-0.4 [facility] Comment on above: Performed By: #### SADAF Langford BCA, 97303-2, BMP #### [facility] ([id number]) [address], [address] [place] [address] Eosinophils/100 WBC (Bld) 0.0 % Normal [facility] Comment on above: Performed By: #### SADAF Langford BCA, 98660-0, BMP #### [facility] ([id number]) [address], [address] [place] [address] Erythrocyte distribution width (RBC) [Ratio] 11.8 % Normal 11.5-15.0 [facility] Comment on above: Performed By: #### PARDEEP Langford BCAR, 67821-2, BMP #### [facility] ([id number]) [address], [address] [place] [address] Hematocrit (Bld) [Volume fraction] 35.5 % Normal 35-47 [facility] Comment on above: Performed By: #### C BRENNON PINR, 38739-9, BMP #### [facility] ([id number]) [address], [address] [place] [address] Hemoglobin (Bld) [Mass/Vol] 12.3 g/dL Normal 11.7-15.5 [facility] Comment on above: Performed By: #### Anastasiya WILLETT PINR, 91231-8, BMP #### [facility] ([id number]) [address], [address] [place] [address] Lymphocytes (Bld) [#/Vol] 0.4 10*3/uL Low 1.0-3.5 [facility] Comment on above: Performed By: #### Anastasiya WILLETT PINR, 76542-0, BMP #### [facility] ([id number]) [address] [place] [address] Lymphocytes/100 WBC (Bld) 13.1 % Normal [facility] Comment on above: Performed By: #### Anastasiya WILLETT PINR, 53336-5, BMP #### [facility] ([id number]) [address], [address] [place] [address] MCH (RBC) [Entitic mass] 32.3 pg Normal 27-34 [facility] Comment on above: Performed By: #### Anastasiya WILLETT PINR, 90814-1, BMP #### [facility] ([id number]) [address], [address] [place] [address] MCHC (RBC) [Mass/Vol] 34.6 g/dL Normal 32-36 [facility] Comment on above: Performed By: #### Anastasiya WILLETT, PINR, 26924-3, BMP #### [facility] ([id number]) [address], [address] [place] [address] MCV (RBC) [Entitic vol] 94 fL Normal 80-100 [facility] Comment on above: Performed By: #### C BRENNON, PINR, 76230-0, BMP #### [facility] ([id number]) [address], [address] [place] [address] Monocytes (Bld) [#/Vol] 0.1 10*3/uL Normal 0-0.9 [facility] Comment on above: Performed By: #### C BRENNON, PINR, 63876-5, BMP #### [facility] ([id number]) [address], [address] [place] [address] Monocytes/100 WBC (Bld) 2.4 % Normal [facility] Comment on above: Performed By: #### C BRENNON, PINR, 46476-9, BMP #### [facility] ([id number]) [address] [place] [address] Neutrophils/100 WBC (Bld) 84.4 % Normal [facility] Comment on above: Performed By: #### C BRENNON, PINR, 89800-4, BMP #### [facility] ([id number]) [address], [address] [place] [address] Platelet mean volume (Bld) [Entitic vol] 9.1 fL Normal 7-12 [facility] Comment on above: Performed By: #### Anastasiya WILLETT, PINR, 19156-3, BMP #### [facility] ([id number]) [address], [address] [place] [address] Platelets (Bld) [#/Vol] 142 10*3/uL Low 150-450 [facility] Comment on above: Performed By: #### Anastasiya WILLETT, PINR, 68908-5, BMP #### [facility] ([id number]) [address], [address] [place] [address] RBC COUNT 3.79 X10E12/L Low 3.80-5.20 [facility] Comment on above: Performed By: #### C SADAF WILLETT, 04822-2, BMP #### [facility] ([id number]) [address], [address] [place] [address] WBC (Bld) [#/Vol] 3.4 10*3/uL Low 4.0-11.0 [facility] Comment on above: Performed By: #### C SADAF WILLETT, 83770-8, BMP #### [facility] ([id number]) [address], [address] [place] [address] Heparin unfractionated Chrom ogenic method Qn (PPP)on 01-25-2024 ANTI XA UFH 0.68 IU/mL Normal 0.30-0.70 [facility] Comment on above: Result Comment: Opti mal time for testing is 6 hrs post dosage This test is specific for monitoring patients on UFH, and is not recommended for use with other Anti-Xa medications. Performed By: #### SADAF Langford BCA, 40190-9, BMP #### [facility] ([id number]) [address], [address] [place] [address] ANTI CARDIOLIPIN AB IGG IGA IGMon 01-24-2024 MELBA IgA <2.0 Normal 0-19.9 [facility] Comment on above: Performed By: #### Doreen SHUKLA #### [facility] ([id number]) [address] [place] [address] MELBA IgG <1.6 Normal 0-19.9 [facility] Comment on above: Performed By: #### Chucky SHUKLAG #### [facility] ([id number]) [address] [place] [address] MELBA IgM <1.5 Normal 0-19.9 [facility] Comment on above: Performed By: #### Chucky SHUKLAG #### [facility] ([id number]) [address] [place] [address] BASIC METABOLIC PANLon 01-23 Anion gap [Moles/Vol] 8 mmol/L Normal 5-15 [facility] Comment on above: Performed By: #### 3 274-8, CBCA, BMP #### [facility] ([id number]) [address] [facility] [address] [place] [address] Calcium [Mass/Vol] 8.0 mg/dL Low 8.5-10.5 [facility] Comment on above: Performed By: #### 3 274-8, CBCA, BMP #### [facility] ([id number]) [address], [facility] [address] [place] [address] Chloride [Moles/Vol] 106 mmol/L Normal 98-109 [facility] Comment on above: Performed By: #### 3 274-8, CBCA, BMP #### [facility] ([id number]) [address], [address] [place] [address] CO2 [Moles/Vol] 22 mmol/L Normal 22-32 [facility] Comment on above: Performed By: #### 3 274-8, CBCA, BMP #### [facility] ([id number]) [address], [facility] [address] [place] [address] Creatinine [Mass/Vol] 0.53 mg/dL Normal 0.40-1.00 [facility] Comment on above: Result Comment: METH OD TRACEABLE TO IDMS STANDARD Performed By: #### 3 274-8, CBCA, BMP #### [facility] ([id number]) [address], [facility] [address] [place] [address] eGFR (CKD-EPI) NON-RACE DEPENDENT >90 Normal >59 [facility] Comment on above: Result Comment: Reported eGFR is based on the CKD-EPI 2020 equation that does not use a race coefficient. Performed By: #### 3 274-8, CBCA, BMP #### [facility] ([id number]) [address], [address] [place] [address] Glucose [Mass/Vol] 76 mg/dL Normal 65-99 [facility] Comment on above: Performed By: #### 3 274-8, CBCA, BMP #### [facility] ([id number]) [address], [address] [place] [address] Potassium [Moles/Vol] 3.8 mmol/L Normal 3.5-5.0 [facility] Comment on above: Performed By: #### 3 274-8, CBCA, BMP #### [facility] ([id number]) [address], [address] [place] [address] Sodium [Moles/Vol] 136 mmol/L Normal 134-146 [facility] Comment on above: Performed By: #### 3 274-8, CBCA, BMP #### [facility] ([id number]) [address], [address] [place] [address] Urea nitrogen [Mass/Vol] 10 mg/dL Normal 5-23 [facility] Comment on above: Performed By: #### 3 274-8, CBCA, BMP #### [facility] ([id number]) [address], [address] [place] [address] BETA-2 GP1 AB PANELon 2023 BETA-2 GP1 IgA <2.0 Normal 0.0-19.9 [facility] Comment on above: Performed By: #### C BCA, PINR, 91743-4, BMP #### [facility] ([id number]) [address], [address] [place] [address] BETA-2 GP1 IgG <1.4 Normal 0.0-19.9 [facility] Comment on above: Performed By: #### C BCA, PINR, 99966-1, BMP #### [facility] ([id number]) [address], [address] [place] [address] BETA-2 GP1 IgM <1.5 Normal 0.0-19.9 [facility] Comment on above: Performed By: #### C BRENNON PINR, 57757-0, BMP #### [facility] ([id number]) [address], [address] [place] [address] CBC AND AUTO DIFFon 01-24-20 24 ABSOLUTE BASOPHIL 0.0 X10E9/L Normal 0.0-0.2 [facility] Comment on above: Performed By: #### 3 274-8, CBCA, BMP #### [facility] ([id number]) [address], [facility] [address] [place] [address] ABSOLUTE NEUTROPHIL 3.7 X10E9/L Normal 1.5-6.6 [facility] Comment on above: Performed By: #### 3 274-8, CBCA, BMP #### [facility] ([id number]) [address], [address] [place] [address] Basophils/100 WBC (Bld) 0.4 % Normal [facility] Comment on above: Performed By: #### 3 274-8, CBCA, BMP #### [facility] ([id number]) [address], [address] [place] [address] Eosinophils (Bld) [#/Vol] 0.2 10*3/uL Normal 0.0-0.4 [facility] Comment on above: Performed By: #### 3 274-8, CBCA, BMP #### [facility] ([id number]) [address], [address] [place] [address] Eosinophils/100 WBC (Bld) 2.9 % Normal [facility] Comment on above: Performed By: #### 3 274-8, CBCA, BMP #### [facility] ([id number]) [address], [address] [place] [address] Erythrocyte distribution width (RBC) [Ratio] 12.3 % Normal 11.5-15.0 [facility] Comment on above: Performed By: #### 3 274-8, CBCA, BMP #### [facility] ([id number]) [address], [address] [place] [address] Hematocrit (Bld) [Volume fraction] 36.4 % Normal 35-47 [facility] Comment on above: Performed By: #### 3 274-8, CBCA, BMP #### [facility] ([id number]) [address], [address] [place] [address] Hemoglobin (Bld) [Mass/Vol] 12.4 g/dL Normal 11.7-15.5 [facility] Comment on above: Performed By: #### 3 274-8, CBCA, BMP #### [facility] ([id number]) [address], [address] [place] [address] Lymphocytes (Bld) [#/Vol] 1.9 10*3/uL Normal 1.0-3.5 [facility] Comment on above: Performed By: #### 3 274-8, CBCA, BMP #### [facility] ([id number]) [address], [address] [place] [address] Lymphocytes/100 WBC (Bld) 29.7 % Normal [facility] Comment on above: Performed By: #### 3 274-8, CBCA, BMP #### [facility] ([id number]) [address], [address] [place] [address] MCH (RBC) [Entitic mass] 32.5 pg Normal 27-34 [facility] Comment on above: Performed By: #### 3 274-8, CBCA, BMP #### [facility] ([id number]) [address], [address] [place] [address] MCHC (RBC) [Mass/Vol] 34.2 g/dL Normal 32-36 [facility] Comment on above: Performed By: #### 3 274-8, CBCA, BMP #### [facility] ([id number]) [address], [address] [place] [address] MCV (RBC) [Entitic vol] 95 fL Normal 80-100 [facility] Comment on above: Performed By: #### 3 274-8, CBCA, BMP #### [facility] ([id number]) [address], [address] [place] [address] Monocytes (Bld) [#/Vol] 0.5 10*3/uL Normal 0-0.9 [facility] Comment on above: Performed By: #### 3 274-8, CBCA, BMP #### [facility] ([id number]) [address], [facility] [address] [place] [address] Monocytes/100 WBC (Bld) 8.2 % Normal [facility] Comment on above: Performed By: #### 3 274-8, CBCA, BMP #### [facility] ([id number]) [address], [address] [place] [address] Neutrophils/100 WBC (Bld) 58.8 % Normal [facility] Comment on above: Performed By: #### 3 274-8, CBCA, BMP #### [facility] ([id number]) [address], [address] [place] [address] Platelet mean volume (Bld) [Entitic vol] 8.7 fL Normal 7-12 [facility] Comment on above: Performed By: #### 3 274-8, CBCA, BMP #### [facility] ([id number]) [address], [address] [place] [address] Platelets (Bld) [#/Vol] 128 10*3/uL Low 150-450 [facility] Comment on above: Performed By: #### 3 274-8, CBCA, BMP #### [facility] ([id number]) [address], [address] [place] [address] RBC COUNT 3.83 X10E12/L Normal 3.80-5.20 [facility] Comment on above: Performed By: #### 3 274-8, CBCA, BMP #### [facility] ([id number]) [address], [address] [place] [address] WBC (Bld) [#/Vol] 6.4 10*3/uL Normal 4.0-11.0 [facility] Comment on above: Performed By: #### 3 274-8, CBCA, BMP #### [facility] ([id number]) [address], [address] [place] [address] Heparin unfractionated Chrom ogenic method Qn (PPP)on 01-24-2024 ANTI XA UFH 0.47 IU/mL Normal 0.30-0.70 [facility] Comment on above: Result Comment: Opti mal time for testing is 6 hrs post dosage This test is specific for monitoring patients on UFH, and is not recommended for use with other Anti-Xa medications. Performed By: #### 3 274-8, CBCA, BMP #### [facility] ([id number]) [address], [address] [address] dRVVT/dRVVT.excess phospholi pid Coag (PPP) [Ratio]on 01-24-2024 DILUTE VERONIKA'S [facility]ER VENOM Negative Normal [facility] Comment on above: Performed By: #### C BCA, PINR, 44264-1, BMP #### [facility] ([id number]) [address], [address] [place] [address] BASIC METABOLIC PANLon 01-22 Anion gap [Moles/Vol] 11 mmol/L Normal 5-15 [facility] Comment on above: Performed By: #### C BCA, PINR, 70313-3, BMP #### [facility] ([id number]) [address], [address] [place] [address] Calcium [Mass/Vol] 8.3 mg/dL Low 8.5-10.5 [facility] Comment on above: Performed By: #### C BCA, PINR, 02267-6, BMP #### [facility] ([id number]) [address], [address] [place] [address] Chloride [Moles/Vol] 106 mmol/L Normal 98-109 [facility] Comment on above: Performed By: #### C BCA, PINR, 63977-5, BMP #### [facility] ([id number]) [address], [address] [place] [address] CO2 [Moles/Vol] 21 mmol/L Low 22-32 [facility] Comment on above: Performed By: #### C BCA, PINR, 46276-1, BMP #### [facility] ([id number]) [address], [address] [place] [address] Creatinine [Mass/Vol] 0.65 mg/dL Normal 0.40-1.00 [facility] Comment on above: Result Comment: METH OD TRACEABLE TO IDMS STANDARD Performed By: #### C BCA, PINR, 50040-3, BMP #### [facility] ([id number]) [address], [address] [place] [address] eGFR (CKD-EPI) NON-RACE DEPENDENT >90 Normal >59 [facility] Comment on above: Result Comment: Reported eGFR is based on the CKD-EPI 2020 equation that does not use a race coefficient. Performed By: #### C BCA, PINR, 77771-6, BMP #### [facility] ([id number]) [address], [address] [place] [address] Glucose [Mass/Vol] 78 mg/dL Normal 65-99 [facility] Comment on above: Performed By: #### C BCA, PINR, 98781-0, BMP #### [facility] ([id number]) [address], [address] [place] [address] Potassium [Moles/Vol] 3.9 mmol/L Normal 3.5-5.0 [facility] Comment on above: Performed By: #### C BRENNON, PINR, 56136-2, BMP #### [facility] ([id number]) [address], [address] [place] [address] Sodium [Moles/Vol] 138 mmol/L Normal 134-146 [facility] Comment on above: Performed By: #### C BRENNON PINR, 31943-6, BMP #### [facility] ([id number]) [address], [address] [place] [address] Urea nitrogen [Mass/Vol] 11 mg/dL Normal 5-23 [facility] Comment on above: Performed By: #### C BRENNON, PINR, 87314-7, BMP #### [facility] ([id number]) [address], [address] [place] [address] CBC AND AUTO DIFFon 01-22- 24 ABSOLUTE BASOPHIL 0.0 X10E9/L Normal 0.0-0.2 [facility] Comment on above: Performed By: #### C BRENNON PINR, 30484-2, BMP #### [facility] ([id number]) [address], [address] [place] [address] ABSOLUTE NEUTROPHIL 6.6 X10E9/L Normal 1.5-6.6 [facility] Comment on above: Performed By: #### C BRENNON PINR, 68091-8, BMP #### [facility] ([id number]) [address], [address] [place] [address] Basophils/100 WBC (Bld) 0.3 % Normal [facility] Comment on above: Performed By: #### C PARDEEP WILLETTR, 46376-4, BMP #### [facility] ([id number]) [address], [address] [place] [address] Eosinophils (Bld) [#/Vol] 0.1 10*3/uL Normal 0.0-0.4 [facility] Comment on above: Performed By: #### C BRENNON, PINR, 39249-9, BMP #### [facility] ([id number]) [address], [address] [place] [address] Eosinophils/100 WBC (Bld) 0.8 % Normal [facility] Comment on above: Performed By: #### C BRENNON PINR, 64890-5, BMP #### [facility] ([id number]) [address], [facility] [address] [place] [address] Erythrocyte distribution width (RBC) [Ratio] 12.4 % Normal 11.5-15.0 [facility] Comment on above: Performed By: #### C BRENNON PINR, 01131-7, BMP #### [facility] ([id number]) [address], [facility] [address] [place] [address] Hematocrit (Bld) [Volume fraction] 39.4 % Normal 35-47 [facility] Comment on above: Performed By: #### C BRENNON PINR, 34464-2, BMP #### [facility] ([id number]) [address], [address] [place] [address] Hemoglobin (Bld) [Mass/Vol] 13.8 g/dL Normal 11.7-15.5 [facility] Comment on above: Performed By: #### C BRENNON, PINR, 90369-0, BMP #### [facility] ([id number]) [address] [address] [place] [address] Lymphocytes (Bld) [#/Vol] 1.9 10*3/uL Normal 1.0-3.5 [facility] Comment on above: Performed By: #### C BCA, PINR, 23236-0, BMP #### [facility] ([id number]) [address], [address] [place] [address] Lymphocytes/100 WBC (Bld) 20.6 % Normal [facility] Comment on above: Performed By: #### C BRENNON, PINR, 64584-6, BMP #### [facility] ([id number]) [address], [address] [place] [address] MCH (RBC) [Entitic mass] 32.7 pg Normal 27-34 [facility] Comment on above: Performed By: #### C BRENNON, PINR, 60310-6, BMP #### [facility] ([id number]) [address], [address] [place] [address] MCHC (RBC) [Mass/Vol] 34.9 g/dL Normal 32-36 [facility] Comment on above: Performed By: #### C BCA, PINR, 86540-8, BMP #### [facility] ([id number]) [address], [facility] [address] [place] [address] MCV (RBC) [Entitic vol] 94 fL Normal 80-100 [facility] Comment on above: Performed By: #### C BRENNON, PINR, 71859-1, BMP #### [facility] ([id number]) [address], [address] [place] [address] Monocytes (Bld) [#/Vol] 0.6 10*3/uL Normal 0-0.9 [facility] Comment on above: Performed By: #### C BRENNON, PINR, 56437-9, BMP #### [facility] ([id number]) [address], [address] [place] [address] Monocytes/100 WBC (Bld) 6.0 % Normal [facility] Comment on above: Performed By: #### C BCA, PINR, 13176-7, BMP #### [facility] ([id number]) [address], [address] [place] [address] Neutrophils/100 WBC (Bld) 72.3 % Normal [facility] Comment on above: Performed By: #### Anastasiya WILLETT, PINR, 24236-9, BMP #### [facility] ([id number]) [address], [address] [place] [address] Platelet mean volume (Bld) [Entitic vol] 8.4 fL Normal 7-12 [facility] Comment on above: Performed By: #### C BRENNON PINR, 15163-7, BMP #### [facility] ([id number]) [address], [facility] [address] [place] [address] Platelets (Bld) [#/Vol] 156 10*3/uL Normal 150-450 [facility] Comment on above: Performed By: #### C BRENNON, PINR, 43021-9, BMP #### [facility] ([id number]) [address], [facility] [address] [place] [address] RBC COUNT 4.21 X10E12/L Normal 3.80-5.20 [facility] Comment on above: Performed By: #### Anastasiya WILLETT, PINR, 19750-2, BMP #### [facility] ([id number]) [address], [facility] [address] [place] [address] WBC (Bld) [#/Vol] 9.1 10*3/uL Normal 4.0-11.0 [facility] Comment on above: Performed By: #### Anastasiya WILLETT, PINR, 30593-2, BMP #### [facility] ([id number]) [address], [address] [place] [address] CT CTV ABD AND PELVISon 01-13 CT [...] Hill MD on 01/23/2024 4:56 PM Normal [facility] Heparin unfractionated Chrom ogenic method Qn (PPP)on 01-23-2024 ANTI XA UFH 0.44 IU/mL Normal 0.30-0.70 [facility] Comment on above: Result Comment: Opti mal time for testing is 6 hrs post dosage This test is specific for monitoring patients on UFH, and is not recommended for use with other Anti-Xa medications. Performed By: #### 3 274-8 #### [facility] ([id number]) [address] [facility] [place] [address] PROTIME AND INRon 01-23-2024 INR Coag (PPP) [Relative time] 1.1 {INR} Normal 0.8-1.1 [facility] Comment on above: Performed By: #### C BCA, PINR, 14091-4, [facility] #### [facility] ([id number]) [address], [address] [place] [address] PT Coag (PPP) [Time] 12.3 s Normal 9.8-13.2 [facility] Comment on above: Performed By: #### C BRENNON, PINR, 60522-7, BMP #### [facility] ([id number]) [address], [address] [place] [address] aPTT Coag (PPP) [Time]on aPTT Coag (Bld) [Time] 51 s High 26-37 [facility] Comment on above: Performed By: #### C BRENNON, PINR, 36875-6, BMP #### [facility] ([id number]) [address], [address] [place] [address] AMYLASEon 04-03-2023 Amylase [Catalytic activity/Vol] 62 U/L Normal 25-115 [facility] Comment on above: Performed By: #### L IPA, BHARTI ####[facility] [address] [address]Dr. Reece Garg CBC AUTO DIFFon 04-03-2023 BASO # 0.0 103/ul Normal 0.0-0.1 [facility] Comment on above: Performed By: #### C BC #### [facility] [address] [address] [address] Reece Garg Basophils/100 WBC (Bld) 0.3 % Normal 0.2-2.0 [facility] Comment on above: Performed By: #### C BC #### [facility] [address] [address] [address] Reece Garg EO # 0.1 103/ul Normal 0.0-0.7 [facility] Comment on above: Performed By: #### C BC #### [facility] [address] [address] [address] Reece Garg Eosinophils/100 WBC (Bld) 0.6 % Critically low 0.9-7.0 [facility] Comment on above: Performed By: #### C BC #### [facility] [address] [place] [address] Dr. Reece Garg Erythrocyte distribution width (RBC) [Ratio] 11.9 % Normal 11.0-15.0 [facility] Comment on above: Performed By: #### C BC #### [facility] [address] [place] [address] Dr. Reece Garg Hematocrit (Bld) [Volume fraction] 37.7 % Normal 36.0-48.0 [facility] Comment on above: Performed By: #### C BC #### [facility] [address] [place] [address] Dr. Reece Garg Hemoglobin (Bld) [Mass/Vol] 12.9 g/dL Normal 12.0-16.0 [facility] Comment on above: Performed By: #### C BC #### [facility] [address] [place] [address] Dr. Reece Garg IG # 0.05 10e3/ul Critically high 0.00-0.03 [facility] Comment on above: Performed By: #### C BC #### [facility] [address] [place] [address] Dr. Reece Garg IG % 0.4 % Normal 0.0-0.5 [facility] Comment on above: Performed By: #### C BC #### [facility] [address] [place] [address] Dr. Reece Garg LYMPH # 2.3 103/ul Normal 1.2-3.8 [facility] Comment on above: Performed By: #### C BC #### [facility] [address] [place] [address] Dr. Reece Garg Lymphocytes/100 WBC (Bld) 20.8 % Normal 20.5-60.0 [facility] Comment on above: Performed By: #### C BC #### [facility] [address] [place] [address] Dr. Reece Garg MANUAL DIFF REQ NO Normal [facility] Comment on above: Performed By: #### C BC #### [facility] [address] [address] [address] Reece Garg MCH (RBC) [Entitic mass] 32.3 pg Normal 26.7-34.0 [facility] Comment on above: Performed By: #### C BC #### [facility] [address] [place] [address] Dr. Reece Garg MCHC (RBC) [Mass/Vol] 34.2 g/dL Normal 29.9-35.2 [facility] Comment on above: Performed By: #### C BC #### [facility] [address] [place] [address] Dr. Reece Garg MCV (RBC) [Entitic vol] 94.3 fL Normal 81.0-99.0 [facility] Comment on above: Performed By: #### C BC #### [facility] [address] [place] [address] Dr. Reece Garg MONO # 0.6 103/ul Normal 0.3-0.8 [facility] Comment on above: Performed By: #### C BC #### [facility] [address] [place] [address] Dr. Reece Garg Monocytes/100 WBC (Bld) 5.3 % Normal 1.7-12.0 [facility] Comment on above: Performed By: #### C BC #### [facility] [address] [place] [address] Dr. Reece Garg NEUT # 8.1 103/ul Critically high 1.4-6.5 [facility] Comment on above: Performed By: #### C BC #### [facility] [address] [place] [address] Dr. Reece Garg Neutrophils/100 WBC (Bld) 72.6 % Normal 43.0-75.0 [facility] Comment on above: Performed By: #### C BC #### [facility] [address] [place] [address] Dr. Reece Garg Platelet mean volume (Bld) [Entitic vol] 10.2 fL Normal 9.5-13.5 [facility] Comment on above: Performed By: #### C BC #### [facility] [address] [place] [address] Dr. Reece Garg PLT 163 103/ul Normal 150-450 [facility] Comment on above: Performed By: #### C BC #### [facility] [address] [place] [address] Dr. Reece Garg RBC 4.00 106/ul Critically low 4.20-5.40 [facility] Comment on above: Performed By: #### C BC #### [facility] [address] [place] [address] Dr. Reece Garg WBC 11.1 103/ul Critically high 4.0-11.0 [facility] Comment on above: Performed By: #### C BC #### [facility] [address] [place] [address] Dr. Reece Garg BASO # 0.0 103/ul Normal 0.0-0.1 [facility] Comment on above: Performed By: #### C BC #### [facility] [address] [place] [address] Dr. Reece Garg Basophils/100 WBC (Bld) 0.3 % Normal 0.2-2.0 [facility] Comment on above: Performed By: #### C BC #### [facility] [address] [place] [address] Dr. Reece Garg EO # 0.1 103/ul Normal 0.0-0.7 [facility] Comment on above: Performed By: #### C BC #### [facility] [address] [place] [address] Dr. Reece Garg Eosinophils/100 WBC (Bld) 0.7 % Critically low 0.9-7.0 [facility] Comment on above: Performed By: #### C BC #### [facility] [address] [place] [address] Dr. Reece Garg Erythrocyte distribution width (RBC) [Ratio] 12.0 % Normal 11.0-15.0 [facility] Comment on above: Performed By: #### C BC #### [facility] [address] [place] [address] Dr. Reece Garg Hematocrit (Bld) [Volume fraction] 41.4 % Normal 36.0-48.0 [facility] Comment on above: Performed By: #### C BC #### [facility] [address] [place] [address] Dr. Reece Garg Hemoglobin (Bld) [Mass/Vol] 14.3 g/dL Normal 12.0-16.0 [facility] Comment on above: Performed By: #### C BC #### [facility] [address] [place] [address] Dr. Reece Garg IG # 0.05 10e3/ul Critically high 0.00-0.03 [facility] Comment on above: Performed By: #### C BC #### [facility] [address] [place] [address] Dr. Reece Garg IG % 0.3 % Normal 0.0-0.5 [facility] Comment on above: Performed By: #### C BC #### [facility] [address] [place] [address] Dr. Reece Garg LYMPH # 1.6 103/ul Normal 1.2-3.8 [facility] Comment on above: Performed By: #### C BC #### [facility] [address] [place] [address] Dr. Reece Garg Lymphocytes/100 WBC (Bld) 10.6 % Critically low 20.5-60.0 [facility] Comment on above: Performed By: #### C BC #### [facility] [address] [place] [address] Dr. Reece Garg MANUAL DIFF REQ NO Normal [facility] Comment on above: Performed By: #### C BC #### [facility] [address] [place] [address] Dr. Reece Garg MCH (RBC) [Entitic mass] 32.1 pg Normal 26.7-34.0 [facility] Comment on above: Performed By: #### C BC #### [facility] [address] [place] [address] Dr. Reece Garg MCHC (RBC) [Mass/Vol] 34.5 g/dL Normal 29.9-35.2 [facility] Comment on above: Performed By: #### C BC #### [facility] [address] [place] [address] Dr. Reece Garg MCV (RBC) [Entitic vol] 93.0 fL Normal 81.0-99.0 [facility] Comment on above: Performed By: #### C BC #### [facility] [address] [place] [address] Dr. Reece Garg MONO # 0.7 103/ul Normal 0.3-0.8 [facility] Comment on above: Performed By: #### C BC #### [facility] [address] [place] [address] Dr. Reeec Garg Monocytes/100 WBC (Bld) 4.7 % Normal 1.7-12.0 [facility] Comment on above: Performed By: #### C BC #### [facility] [address] [place] [address] Dr. Reece Garg NEUT # 12.9 103/ul Critically high 1.4-6.5 [facility] Comment on above: Performed By: #### C BC #### [facility] [address] [place] [address] Dr. Reece Garg Neutrophils/100 WBC (Bld) 83.4 % Critically high 43.0-75.0 [facility] Comment on above: Performed By: #### C BC #### [facility] [address] [place] [address] Dr. Reeec Garg Platelet mean volume (Bld) [Entitic vol] 10.4 fL Normal 9.5-13.5 [facility] Comment on above: Performed By: #### C BC #### [facility] [address] [place] [address] Dr. Reece Garg PLT 194 103/ul Normal 150-450 [facility] Comment on above: Performed By: #### C BC #### [facility] [address] [place] [address] Dr. Reece Garg RBC 4.45 106/ul Normal 4.20-5.40 [facility] Comment on above: Performed By: #### C BC #### [facility] [address] [place], [place] [address] Dr. Reece Garg WBC 15.4 103/ul Critically high 4.0-11.0 [facility] Comment on above: Performed By: #### C BC #### [facility] [address], [place] [address] ABD/PELV W CONon [...] LAVON ELIZALDE Date: 2023-04-03 01:36 Normal [facility] ER URINE PROFILEon 3 Bilirubin Ql (U) Negative Normal NEGATIVE [facility] Comment on above: Performed By: #### P REGU, ERUR #### [facility] [address] [place] [address] [address] Reece Garg Clarity (U) CLEAR Normal CLEAR [facility] Comment on above: Performed By: #### P REGU, ERUR #### [facility] [address] [address] [address] Reece Garg Color (U) LT. YELLOW Normal YELLOW [facility] Comment on above: Performed By: #### P REGU, ERUR #### [facility] [address] [place] [address] Dr. Reece KHAN A micrscopic examination will be performed if indicated. Normal [facility] Comment on above: Performed By: #### P REGU, ERUR #### [facility] [address] [address] [address] Reece Garg Glucose Ql (U) Negative Normal NEGATIVE [facility] Comment on above: Performed By: #### P REGU, ERUR #### [facility] [address] [place] [address] Dr. Reece Garg Hemoglobin Ql (U) Negative Normal NEGATIVE [facility] Comment on above: Performed By: #### P REGU, ERUR #### [facility] [address] [address] [address] Reece Garg Ketones Ql (U) 15 mg/dl Abnormal NEGATIVE The [facility] Comment on above: Performed By: #### P REGU, ERUR #### [facility] [address] [address] [address] Reece Garg LEUKOCYTES Negative Normal NEGATIVE [facility] Comment on above: Performed By: #### P REGU, ERUR #### [facility] [address] [address] [address] Reece Garg Nitrite Ql (U) Negative Normal NEGATIVE The [facility] Comment on above: Performed By: #### P REGU, ERUR #### [facility] [address] [address] [address] Reece Garg pH (U) 5.5 [pH] Normal 5-9 [facility] Comment on above: Performed By: #### P REGU, ERUR #### [facility] [address] [address] [address] Reece Garg SPEC GRAVITY <=1.005 Abnormal 1.005-<=1.025 [facility] Comment on above: Performed By: #### P REGU, ERUR #### [facility] [address] [address] [address] Reece Garg UA PROTEIN Negative Normal NEGATIVE/ TRACE [facility] Comment on above: Performed By: #### P REGU, ERUR #### [facility] [address] [address] [address] Reece Garg UR MICRO IND NOT INDICATED Normal [facility] Comment on above: Performed By: #### P REGU, ERUR #### [facility] [address] [address] [address] Reece Garg Urobilinogen Qn (U) 0.2 {Dariel'U}/dL Normal 0.2 - 1. 0 [facility] Comment on above: Performed By: #### P REGU, ERUR #### [facility] [address] [address] [address] Reece Garg LIPASEon 04-03-2023 Lipase [Catalytic activity/Vol] 62.0 U/L Critically low 73.0-393.0 [facility] Comment on above: Performed By: #### L IPA, BHARTI ####[facility] [id number] [address]Dr. Reece Garg MONOon 04-03-2023 Monocytes (Bld) [#/Vol] Negative Normal NEGATIVE [facility] Comment on above: Performed By: #### M JOSE DANIEL #### [facility] [address] [address] [address] Reece Garg URon 04-03-2023 , QUAL Negative Normal NEGATIVE [facility] Comment on above: Performed By: #### P REGU, ERUR #### [facility] [address] [place] [address] Dr. Reece Garg PROF 14(COMP METB)on 023 Albumin [Mass/Vol] 3.3 g/dL Critically low 3.4-5.0 [facility] Comment on above: Performed By: #### C MP #### [facility] [address] [place] [address] Dr. Reece Garg Albumin/Globulin [Mass ratio] 1.0 {ratio} Normal [facility] Comment on above: Performed By: #### C MP #### [facility] [address] [place] [address] Dr. Reece Garg ALP [Catalytic activity/Vol] 38 U/L Critically low 46-116 [facility] Comment on above: Performed By: #### C MP #### [facility] [address] [address] [address] Reece Garg ALT [Catalytic activity/Vol] 16 U/L Normal 14-59 [facility] Comment on above: Performed By: #### C MP #### [facility] [address] [place] [address] Dr. Reece Garg Anion gap [Moles/Vol] 10.7 mmol/L Normal [facility] Comment on above: Performed By: #### C MP #### [facility] [address] [place] [address] Dr. Reece Garg AST [Catalytic activity/Vol] 10 U/L Critically low 15-37 [facility] Comment on above: Performed By: #### C MP #### [facility] [address] [place] [address] Dr. Reece Garg Bilirubin [Mass/Vol] 1.0 mg/dL Normal 0.2-1.0 [facility] Comment on above: Performed By: #### C MP #### [facility] [address] [place] [address] Dr. Reece Garg Calcium [Mass/Vol] 8.2 mg/dL Critically low 8.5-10.1 [facility] Comment on above: Performed By: #### C MP #### [facility] [address] [place] [address] Dr. Reece Garg Chloride [Moles/Vol] 106 mmol/L Normal 98-107 [facility] Comment on above: Performed By: #### C MP #### [facility] [address] [address] [address] Reece Garg CO2 [Moles/Vol] 27.0 mmol/L Normal 21.0-32.0 [facility] Comment on above: Performed By: #### C MP #### [facility] [address] [place] [address] Dr. Reece Garg Creatinine [Mass/Vol] 0.77 mg/dL Normal 0.55-1.02 [facility] Comment on above: Performed By: #### C MP #### [facility] [address] [place] [address] Dr. Reece Garg EGFR-AF ST LUCIAN >60 Normal >=60 [facility] Comment on above: Performed By: #### C MP #### [facility] [address] [place] [address] Dr. Reece Garg EGFR-NON AF [facility] LUCIAN >60 Normal >=60 [facility] Comment on above: Performed By: #### C MP #### [facility] [address] [place] [address] Dr. Reece Garg Globulin (S) [Mass/Vol] 3.3 g/dL Normal [facility] Comment on above: Performed By: #### C MP #### [facility] [address] [place] [address] Dr. Reece Garg Glucose [Mass/Vol] 102 mg/dL Normal 74-106 [facility] Comment on above: Performed By: #### C MP #### [facility] [address] [place] [address] Dr. Reece Garg Potassium [Moles/Vol] 3.7 mmol/L Normal 3.5-5.1 [facility] Comment on above: Performed By: #### C MP #### [facility] [address] [address] [address] Reece Garg Protein [Mass/Vol] 6.6 g/dL Normal 6.4-8.2 [facility] Comment on above: Performed By: #### C MP #### [facility] [address] [place] [address] Dr. Reece Garg Sodium [Moles/Vol] 140 mmol/L Normal 136-145 [facility] Comment on above: Performed By: #### C MP #### [facility] [address] [place] [address] Dr. Reece Garg Urea nitrogen [Mass/Vol] 8.0 mg/dL Normal 7.0-18.0 [facility] Comment on above: Performed By: #### C MP #### [facility] [address] [place] [address] Dr. Reece Garg Urea nitrogen/Creatinine [Mass ratio] 10.4 mg/mg Normal [facility] Comment on above: Performed By: #### C MP #### [facility] [address] [place] [address] Dr. Reece Garg PROTIMEon 04-03-2023 INR Coag (PPP) [Relative time] 1.06 {INR} Normal [facility] Comment on above: Performed By: #### P TT, PT #### [facility] [address] [place] [address] Dr. Reece Garg INR GUIDELINES SEE BELOW Normal The [facility] Comment on above: Result Comment: JJ RED INR: 2.0 - 3.0 CONDITIONS NOT LISTED BELOW 2.5 - 3.5 FOR PROSTHETIC HEART VALVE REPLACEMENT 2.5 - 3.5 RECURRENT THROMBOSIS Performed By: #### P TT, PT #### [facility] [address] [place] [address] Dr. Reece Garg PT Coag (PPP) [Time] 11.2 s Normal 9.0-11.6 [facility] Comment on above: Performed By: #### P TT, PT #### [facility] [address] [place] [address] Dr. Reece Garg PTTon 04-03-2023 aPTT Coag (Bld) [Time] 28.1 s Normal 22.3-36.2 [facility] Comment on above: Performed By: #### P TT, PT #### [facility] [address] [place], [place] [address] Dr. Reece Garg PAP ACOG PANEL 2: 30 to 67on 07-28-2022 . . Normal [facility] Comment on above: Result Comment: Perf ormed at: WB Performed By: #### [id number] ####[facility] [address] [address]Dr. Reece Garg Age Gdln ACOG Testing -67 Normal [facility] Comment on above: Performed By: #### [id number] ####[facility] [address] [place] [address]DrHardik Garg DIAGNOSIS: Comment Normal [facility] Comment on above: Result Comment: NEGA TIVE FOR INTRAEPITHELIAL LESION OR MALIGNANCY. Performed at: WB Performed By: #### [id number] ####[facility] [address] [address]DrHardik Garg HPV Aptima Negative Normal Negative [facility] Comment on above: Result Comment: This nucleic acid amplification test detects fourteen high-risk HPV types (16,18,31,33,35,39,45,51,52,56,58,59,66,68) without differentiation. Performed at: =G Performed By: #### [id number] ####[facility] [address] [place] [address]Dr. Reece Garg Methodology: Comment Normal [facility] Comment on above: Result Comment: This liquid based ThinPrep(R) pap test was screened with the use of an image guided system. Performed at: WB Performed By: #### [id number] ####[facility] [address] [address]Dr. Reece Garg Note: Comment Normal [facility] Comment on above: Result Comment: The Pap smear is a screening test designed to aid in the detection of premalignant and malignant conditions of the uterine cervix. It is not a diagnostic procedure and should not be used as the sole means of detecting cervical cancer. Both false-positive and false-negative reports do occur. . Performed at: WB Performed By: #### [id number] ####[facility] [address] [address]DrHardik Garg Performed by: Comment Normal [facility] Comment on above: Result Comment: Alexandra Cortez, Robotic Technician (ASCP) Performed at: WB Performed By: #### [id number] ####[facility] [address] [address]Dr. Reece Garg Specimen adequacy: Comment Normal [facility] Comment on above: Result Comment: Sati sfactory for evaluation. No endocervical component is identified. Performed at: WB Performed By: #### [id number] ####[facility] [address] [place] [address]DrHardik Garg VAGINITIS/VAGINOSIS DNA PROB Erwin 07-24-2022 Micheal species Negative Normal Negative [facility] Comment on above: Performed By: #### V AGINT #### [facility] [address] [address] [address] Reece Garg Gardnerella vaginalis Positive Abnormal Negative [facility] Comment on above: Performed By: #### V AGINT #### [facility] [address] [address] [address] Reece Garg Trichomonas vaginalis Negative Normal Negative [facility] Comment on above: Performed By: #### V AGINT #### [facility] [address] [address] [address] Reece Garg Vital Signs Date Time Vital Sign Value Performing Clinician Facility 07-23-2025 09:40-0400 Body height 157.48 cm Usman Rodrigez MD Work Phone: [facility] 07-23-2025 09:40-0400 Body mass index (BMI) [Ratio] 24.7 kg/m2 Usman Rodrigez MD Work Phone: [facility] 07-23-2025 09:40-0400 Body weight 61.23 kg Usman Rodrigez MD Work Phone: [facility] 05-31-2025 08:35-0400 Body mass index (BMI) [Ratio] 24.14 kg/m2 Jani Bridges MD Work Phone: [facility] 05-31-2025 08:35-0400 Body weight 59.88 kg Jani Bridges MD Work Phone: [facility] 05-31-2025 08:35-0400 Diastolic blood pressure 68 mm[Hg] Jani Bridges MD Work Phone: [facility] 05-31-2025 08:35-0400 Heart rate 62 /min Jani Bridges MD Work Phone: [facility] 05-31-2025 08:35-0400 Systolic blood pressure 102 mm[Hg] Jani Bridges MD Work Phone: [facility] 04-03-2025 09:37-0400 Body mass index (BMI) [Ratio] 24.51 kg/m2 Andre Hudson DO Work Phone: [facility] 04-03-2025 09:37-0400 Body weight 60.78 kg Andre Hudson DO Work Phone: [facility] 04-03-2025 09:37-0400 Diastolic blood pressure 70 mm[Hg] Andre Hudson DO Work Phone: [facility] 04-03-2025 09:37-0400 Systolic blood pressure 114 mm[Hg] Andre Hudson DO Work Phone: [facility] 12-26-2024 10:07-0500 Blood Pressure Location SYDNEE ALVAREZ [facility] 12-26-2024 10:07-0500 Diastolic blood pressure 90 mm[Hg] SYDNEE ALVAREZ [facility] 12-26-2024 10:07-0500 Heart rate 70 /min SYDNEE ANTONIO [facility] 12-26-2024 10:07-0500 Systolic blood pressure 130 mm[Hg] SYDNEE ANTONIO [facility] 08-31-2024 10:09-0400 Body mass index (BMI) [Ratio] 24.11 kg/m2 Andre Hudson DO Work Phone: [facility] 08-31-2024 10:09-0400 Body weight 59.78 kg Andre Hudson DO Work Phone: [facility] 08-31-2024 10:09-0400 Diastolic blood pressure 70 mm[Hg] Andre Hudson DO Work Phone: [facility] 08-31-2024 10:09-0400 Systolic blood pressure 110 mm[Hg] Andre Hudson DO Work Phone: [facility] 08-08-2024 11:15-0400 Blood Pressure Location SYDNEE ANTONIO [facility] 08-08-2024 11:15-0400 Diastolic blood pressure 63 mm[Hg] SYDNEE ANTONIO [facility] 08-08-2024 11:15-0400 Heart rate 61 /min SYDNEE ANTONIO [facility] 08-08-2024 11:15-0400 Respiratory rate 19 /min SYDNEE ANTONIO [facility] 08-08-2024 11:15-0400 Systolic blood pressure 96 mm[Hg] SYDNEE ANTONIO [facility] 07-31-2024 09:53-0400 Body height 157.5 cm Andre Hudson DO Work Phone: [facility] 07-31-2024 09:53-0400 Body mass index (BMI) [Ratio] 23.96 kg/m2 Andre Hudson DO Work Phone: [facility] 07-31-2024 09:53-0400 Body weight 59.42 kg Andre Hudson DO Work Phone: [facility] 07-31-2024 09:53-0400 Diastolic blood pressure 68 mm[Hg] Andre Hudson DO Work Phone: [facility] 07-31-2024 09:53-0400 Systolic blood pressure 102 mm[Hg] Andre Hudson DO Work Phone: [facility] 07-10-2024 16:25-0400 Body mass index (BMI) [Ratio] 24.29 kg/m2 Bharti RIBEIRO Work Phone: [facility] 07-10-2024 16:25-0400 Body weight 60.24 kg Bharti RIBEIRO Work Phone: [facility] 05-25-2024 08:43-0400 Body height 157.5 cm Jani Bridges MD Work Phone: [facility] 05-25-2024 08:43-0400 Body mass index (BMI) [Ratio] 23.78 kg/m2 Jani Bridges MD Work Phone: [facility] 05-25-2024 08:43-0400 Body weight 58.97 kg Jani Bridges MD Work Phone: [facility] 05-25-2024 08:43-0400 Diastolic blood pressure 68 mm[Hg] Jani Bridges MD Work Phone: [facility] 05-25-2024 08:43-0400 Heart rate 66 /min Jani Bridges MD Work Phone: [facility] 05-25-2024 08:43-0400 SaO2% (BldA) [Mass fraction] 98 % Jani Bridges MD Work Phone: [facility] 05-25-2024 08:43-0400 Systolic blood pressure 97 mm[Hg] Jani Bridges MD Work Phone: [facility] Encounters Encounter Date Encounter Type Care Provider Facility Start: 07-26-2025 End: 07-26-2025 ambulatory Usman Rodrigez MD Work Phone: [facility] Work Phone: Start: 07-26-2025 End: 07-26-2025 Patient encounter procedure Lul Pearson MD -[facility] Work Phone: Start: 07-23-2025 End: 07-23-2025 ambulatory Usman Rodrigez MD Work Phone: [facility] Work Phone: Start: 07-23-2025 End: 07-23-2025 Patient encounter procedure Patricio Bentley DO [facility] [place] Work Phone: Start: 07-02-2025 End: 07-02-2025 ambulatory Kirit Pierce MD Facility:[facility] Start: 05-31-2025 End: 05-31-2025 Office outpatient visit 25 minutes Jani Bridges MD Work Phone: [facility] [place] Comment on above: 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); Acute deep vein thrombosis (DVT) of iliac vein of left lower extremity ([facility] Start: 05-31-2025 End: 05-31-2025 ambulatory JANI BRIDGES [facility] Start: 05-30-2025 ambulatory USMAN RODRIGEZ [facility] Start: 05-23-2025 End: [...] Start: 04-04-2025 End: 04-04-2025 ambulatory Julien HOYOS Facility:[facility] Start: 04-04-2025 End: 04-04-2025 Patient encounter procedure Julien HOYOS [facility] Start: 04-03-2025 End: 04-03-2025 Bamboo [...] 02-19-2025 ambulatory Usman Rodrigez MD Work Phone: [facility] Work Phone: Start: 02-19-2025 End: 02-19-2025 Discharged Recurring Usman Rodrigez MD Work Phone: [facility] Start: 12-26-2024 End: 12-26-2024 ambulatory Julien HOYOS Facility:[facility] Start: 12-26-2024 End: 12-26-2024 Patient encounter procedure SYDNEE ALVAREZ [facility] [place] Start: 10-03-2024 End: 10-03-2024 ambulatory Julien R ROMAIN Facility:[facility] [place] [place] Start: 10-03-2024 End: 10-03-2024 Patient encounter procedure Julien HOYOS [facility] Start: 09-20-2024 End: 09-20-2024 Bamboo flowsheet Theresa Perez [facility] Work Phone: [facility] Start: 09-20-2024 End: 09-20-2024 Bamboo flowsheet Theresa Perez [facility] Work Phone: [facility] Start: 09-20-2024 End: 09-20-2024 Social Work Theresa Perez [facility] Work Phone: [facility] Comment on above: IRVING (generalized anx [...] 08-10-2024 End: 08-10-2024 Bamboo flowsheet Theresa Perez [facility] Work Phone: [facility] Start: 08-10-2024 End: 08-10-2024 Bamboo flowsheet Theresa Perez [facility] Work Phone: [facility] Start: 08-10-2024 End: 08-10-2024 Social Work Theresa Perez [facility] Work Phone: [facility] Comment on above: IRVING (generalized anx iety disorder) ([facility]) Start: 08-08-2024 End: 08-08-2024 ambulatory SYDNEE ALVAREZ Facility:[facility] Start: 08-08-2024 End: 08-08-2024 Patient encounter procedure SYDNEE ALVAREZ [facility] Start: 08-03-2024 ambulatory Julien HOYOS Facility :[facility] Start: 08-03-2024 End: 08-03-2024 ambulatory ANDRE [...] 07-18-2024 End: 07-18-2024 Bamboo flowsheet Theresa Perez [facility] Work Phone: [facility] Start: 07-18-2024 End: 07-18-2024 Bamboo flowsheet Theresa Perez [facility] Work Phone: [facility] Start: 07-18-2024 End: 07-18-2024 Social Work Theresa Perez [facility] Work Phone: [facility] Comment on above: IRVING (generalized anx iety disorder) ([facility] Start: 07-10-2024 End: 07-10-2024 Office outpatient visit 15 minutes Bharti RIBEIRO Work Phone: [facility] Comment on above: UTI symptoms; Vaginal discharge; STD exposure Start: 07-10-2024 End: 07-10-2024 ambulatory BHARTI FRIED Not Available Start: 07-10-2024 End: 07-12-2024 External Result Encounter Bharti RIBEIRO Work Phone: [facility] Unsolicited Start: 07-10-2024 End: 07-12-2024 External Result Encounter Bharti RIBEIRO Work Phone: [facility] Unsolicited Start: 06-29-2024 End: 06-29-2024 Social Work Theresa Perez [facility] Work Phone: [facility] Comment on above: IRVING (generalized anx iety disorder) ([facility]) Start: 05-25-2024 End: 05-25-2024 Office outpatient visit 25 minutes Jani Bridges MD [facility] Phone: [facility] Comment on above: 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); Acute deep vein thrombosis (DVT) of iliac vein of left lower extremity ([facility]) Start: 05-25-2024 End: 05-25-2024 ambulatory JANI BRIDGES [facility] Start: 04-27-2024 End: 04-27-2024 Office outpatient visit 25 minutes Jani Bridges MD Work Phone: [facility] Comment on above: 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); 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 ([facility]) Start: 04-27-2024 ambulatory [facility] Start: 04-03-2024 End: 04-11-2024 Orders Only Not In System Ref Prov [facility] Start: 02-10-2024 End: 02-10-2024 Office outpatient visit 15 minutes Jani Bridges MD Work Phone: [facility] Comment on above: Acute deep vein thro mbosis (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); May-Thurner syndrome Start: 02-10-2024 ambulatory [facility] Start: 01-26-2024 End: 01-26-2024 [facility] Start: 01-24-2024 End: 01-26-2024 Evaluation and management of inpatient [facility] Start: 01-24-2024 End: 01-24-2024 ambulatory DL BUCK [facility] Start: 01-24-2024 ambulatory [facility] Start: 01-23-2024 End: 01-26-2024 Evaluation and management of inpatient STEPHEN STOKES [facility] Start: 01-23-2024 End: 01-25-2024 Evaluation and management of inpatient [facility] Start: 04-03-2023 End: 04-03-[address] USMAN RODRIGEZ . Facility:[facility]1 Start: 07-26-2022 Encounter for gynecological examination (general) (routine) without abnormal findings DR EARLENE MCDONOUGH . [facility] Start: 07-22-2022 End: 07-22-2022 ambulatory [...] Phone: Start: 07-31-2024 IGP,APTIMA HPV,AGE GDLN Andre Hudson DO Work Phone: Start: 07-31-2024 Microscopic observat [...] Bridges MD Work Phone: H/O: hysterectomy SYDNEE Lili VELAZQUEZ History of appendectomy ADITI VENTURA ANTONIO Laparoscope, device (physical object) SYDNEE ALVAREZ Comment on above: pelvic Plan of Treatment Date Care Activity Detail Author Start: 08-24-2028 Screening for malign ant neoplasm of cervix [facility] Start: 07-31-2027 Screening for malign ant neoplasm of cervix Pap Smear [facility] Start: 08-24-2026 Screening for malign ant neoplasm of cervix Pap Smear [facility] Start: 06-06-2026 End: 06-06-2026 Patient encounter procedure 06/06/2026 8:30 AM EDT Office Visit [facility] [place] [address] Jani Bridges MD [address], [facility] [address] [place] [address] [facility] Start: 05-31-2026 Adult BMI Screening Adult BMI Screen ing [facility] Start: 05-31-2026 Tobacco Screening Tobacco Screening [facility] Start: 05-27-2026 End: 05-27-2026 Patient encounter procedure 05/27/2026 8:30 AM EDT Appointment [facility] [address] [place] [phone] Jani Bridges MD [address] [facility] [address] [place] [address] [facility] Start: 08-06-2025 End: 08-06-2025 Patient encounter procedure 08/06/2025 10:00 AM EDT Office Visit [facility] [address] [facility] [place] [phone] Andre Treviño DO [address] [place] [address] [facility] Start: 07-16-2025 Influenza vaccination P [facility] Start: 05-31-2025 End: 05-31-2026 US.doppler Thoracic and Abdominal Aorta and Inferior Vena Cava and Illiac vessels Vas IVC/iliac duplex complete Vascular Ultrasound Routine May-Thurner syndrome Acute deep vein thrombosis (DVT) of iliac vein of left lower extremity ([facility]) Expected: 05/31/2025, Expires: 05/31/2026 [employer] Work Phone: Comment on above: Expected: 05/31/2025 , Expires: 05/31/2026 Start: 05-25-2025 Adult BMI Screening Adult BMI Screen ing [facility] Start: 05-25-2025 Tobacco Screening Tobacco Screening [facility] Start: 05-24-2025 End: 05-24-2025 Patient encounter procedure 05/24/2025 8:30 AM EDT [facility] [address] [place] [address] Jani Bridges MD [address], [place] [address] [place] [address] [facility] Start: 04-17-2025 End: 04-17-2025 Patient encounter procedure 04/17/2025 8:00 AM EDT Office Visit [facility] [address] [place] [address] Andre Treviño, DO [address] [facility] [address] [place], [place] [id number] [facility] Start: 04-03-2025 End: 04-03-2025 Patient encounter procedure 04/03/2025 9:20 AM EDT Office Visit [facility] [address] [facility] [place] [address] Andre Treviño, DO [address] [place], [place] [id number] Arrived [facility] Comment on above: Arrived Start: 02-13-2025 Adult BMI Screening Adult BMI Screen ing [facility] Start: 02-13-2025 Tobacco Screening Tobacco Screening [facility] Start: 01-24-2025 Adult BMI Screening Adult BMI Screen ing [facility] Start: 01-23-2025 Tobacco Screening Tobacco Screening [facility] Start: 01-22-2025 Depression Screening Depression Scre ening [facility] Start: 10-17-2024 End: 10-17-2024 Social Work 10/17/2024 11:00 AM EST Social Work [facility] [address] [place] [address] Theresa Perez[facility] [address] [place] [address] [facility] Start: 09-20-2024 End: 09-20-2024 Social Work 09/20/2024 8:00 AM EST Social Work [facility] [address] [place] [address] Theresa Perez[facility] [address] [place] [address] Arrived [facility] Comment on above: Arrived Start: 09-06-2024 End: 09-06-2024 Social Work 09/06/2024 2:00 PM EDT Social Work [facility] [address] [place] [address] Theresa Perez[facility] [address] [place] [address] [facility] Start: 08-31-2024 End: 08-31-2024 Patient encounter procedure [facility] Comment on above: Arrived Start: 08-30-2024 End: 08-30-2024 Social Work 08/30/2024 9:00 AM EDT Social Work [facility] [address] [place] [address] Theresa Perez, [facility] [address] [place] [address] [facility] Start: 08-10-2024 End: 08-10-2024 Social Work [facility] Comment on above: Arrived Start: 07-31-2024 End: 07-31-2024 Patient encounter procedure [facility] Comment on above: Arrived Start: 07-18-2024 End: 07-18-2024 Social Work 07/18/2024 11:00 AM EDT Social Work [facility] [address] [place] [address] Theresa Perez, [facility] [address] [place] [address] [facility] Start: 07-16-2024 COVID-19 Vaccine ( season) COVID-19 Vaccine ( season) [facility] Start: 07-16-2024 Influenza vaccination N [facility] Start: 05-25-2024 End: 05-25-2024 Patient encounter procedure 05/25/2024 8:50 AM EDT Office Visit [facility] [address] [place] [address] Jani Bridges MD [address] [facility] [address] [place] [address] [facility] Start: 05-11-2024 End: 05-11-2024 Patient encounter procedure 05/11/2024 10:00 AM EDT Office Visit [facility] [address] [place] [address] Jani Bridges MD [address], [address] [address] [facility] [...] May-Thurner syndrome Expected: 02/25/2024 (Approximate), Expires: 02/10/2025 [facility] Work Phone: Comment on above: Expected: 02/25/2024 (Approximate), Expires: 02/10/2025 Start: 07-16-2023 Influenza vaccination Influenza Vacc ine [facility] Start: 02-14-2019 DTaP,Tdap and Td Vaccines (6 - Tdap) DTaP,Tdap and Td Vaccines (6 - Tdap) [facility] Start: 2013 Screening for malign ant neoplasm of cervix Pap Smear [facility] Start: 2010 Adult BMI Follow Up Plan Adult BMI Follow Up Plan [facility] Aerobic culture Aerobic culture Microbiology Routine Nipple discharge Nipple infection in female Ordered: 04/03/2025 [facility] Comment on above: Ordered: 04/03/2025 Anaerobic culture Anaerobic cult ure Microbiology Routine Nipple discharge Nipple infection in female Ordered: 04/03/2025 [facility] Work Phone: Comment on above: Ordered: 04/03/2025 Bacteria identified in Urine by Culture Urine culture Microbiology Routine UTI symptoms Ordered: 07/11/[address] 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) 1 Occurrences starting 04/27/2024 until 04/27/2025 [facility] Comment on above: 1 Occurrences starti ng 04/27/2024 until 04/27/2025 CHLAMYDIA TRACHOMATI S (GENITO/STI) CHLAMYDIA TRACHOMATIS (GENITO/STI) Lab Routine Chronic bladder pain Ordered: 07/31/2024 [facility] Comment on above: Ordered: 07/31/2024 CHLAMYDIA TRACHOMATI S (GENITO/STI) CHLAMYDIA TRACHOMATIS (GENITO/STI) Lab Routine STD exposure Ordered: 07/11/2024 [facility] Comment on above: Ordered: 07/11/2024 Cytology Cervical or vaginal smear or scraping study Pap Smear Pathology and Cytology Routine Well woman exam with routine gynecological exam Ordered: 07/31/2024 [facility] Work Phone: Comment on above: Ordered: 07/31/2024 End: 04-27-2025 Erythrocyte sedimentation rate Erythrocyte Sedimentation Rate (ESR) Lab Routine 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 Comment on above: Ordered: 07/31/2024 Neisseria gonorrhoea e DNA [Presence] in Unspecified specimen by MÓNICA with probe detection Neisseria gonorrhea DNA probe, direct Lab Routine Chronic bladder pain Ordered: 07/31/[address] [facility] Comment on above: Ordered: 07/31/2024 Neisseria gonorrhoea e DNA [Presence] in Unspecified specimen by MÓNICA with probe detection Neisseria gonorrhea DNA probe, direct Lab Routine STD exposure Ordered: 07/11/[address] [facility] Comment on above: Ordered: 07/11/2024 Patient Education Low back pain in adults [facility] Work Phone: SURESWAB(R) ADVANCED VAGINITIS PLUS, TMA SURESWAB(R) ADVANCED VAGINITIS PLUS, TMA Pathology and Cytology Routine Chronic bladder pain Ordered: 07/31/[address] [facility] Comment on above: Ordered: 07/31/2024 SURESWAB(R) ADVANCED VAGINITIS PLUS, TMA SURESWAB(R) ADVANCED VAGINITIS PLUS, TMA Pathology and Cytology Routine Vaginal discharge Ordered: 07/11/[address] [facility] Work Phone: Comment on above: Ordered: 07/11/2024 Immunizations Immunization Date Immunization Notes Care Provider Сергей cheung 05-13-2021 SARS-CoV-2 (COVID-19 ) mRNA BNT-162b2 shanice ALVAREZ [facility] 04-22-2021 SARS-CoV-2 (COVID-19 ) mRNA BNT-162b2 shanice ALVAREZ [facility] 07-04-2019 hepatitis B vaccine, adult dosage SYDNEE ANTONIO [facility] 05-02-2019 hepatitis B vaccine, adult dosage SYDNEE ANTONIO [facility] 02-28-2019 hepatitis B vaccine, adult dosage SYDNEE ANTONIO [facility] 02-13-2019 Td(adult) unspecifie d formulation SYDNEE ANTONIO [facility] Comment on above: Result Comment: 2023: TENIVAC GIVEN BY DR RODRIGEZ IN [place] 07-11-1997 diphtheria, tetanus toxoids and acellular pertussis vaccine SYDNEE ANTONIO [facility] 07-11-1997 measles, mumps and rubella virus vaccine SYDNEE ANTONIO [facility] 07-11-1997 poliovirus vaccine, unspecified formulation SYDNEE ANTONIO [facility] 06-23-1993 Hib, unspecified formulation SYDNEE ANTONIO [facility] 06-23-1993 measles, mumps and rubella virus vaccine SYDNEE ANTONIO [facility] 06-23-1993 poliovirus vaccine, unspecified formulation SYDNEE ANTONIO [facility] 1992 Hib, unspecified formulation SYDNEE ANTONIO [facility] 1992 Hib, unspecified formulation SYDNEE ANTONIO [facility] 1992 poliovirus vaccine, unspecified formulation SYDNEE ALVAREZ [facility] 1992 Hib, unspecified formulation SYDNEE ALVAREZ [facility] 1992 poliovirus vaccine, unspecified formulation SYDNEE ALVAREZ [facility] Payers Date Payer Category Payer Self-pay 2024 Unknown [id number] 2022 Blue Cross [facility] - Other [id number] 2022 Private Health Insurance [id number] 2022 Unknown [id number]. 1.13.693.2.7.3.01444 1.315 2007 Unknown [id number] 1992 Unknown [id number] 2.16840.1.888714.3.579.2.593 1992 Unknown [id number] 2.16840.1.649396.3.579.2.593 1992 Unknown [id number] 2.16.840.1.230808.3.579.2.1286 1992 Unknown [id number] 2.16.840.1.101897.3.579.2.1286 1992 Unknown [id number] 2.16.840.1.788007.3.579.2.1285 1992 Unknown [id number] 2.16.840.1.175812.3.579.2.1285 1992 Unknown [id number] 2.16840.1.655676.3.579.2.1285 1992 Unknown [id number] 2.16.840.1.714895.3.579.2.1285 1992 Unknown [id number] 2.16840.1.006383.3.579.2.1285 1992 Unknown [id number] 2.840.1.154811.3.579.2.1285 1992 Unknown [id number] 2.840.1.047750.3.579.2.1285 1992 Unknown [id number] 2.840.1.158407.3.579.2.1285 1992 Unknown [id number] 2.840.1.129344.3.579.2.1258 1992 Unknown [id number] 2.840.1.504498.3.579.2.1258 1992 Unknown [id number] 2.840.1.527771.3.579.2.1258 1992 Unknown [id number] 2.840.1.742777.3.579.2.1258 1992 Unknown [id number] 2.840.1.870759.3.579.2.1258 1992 Unknown [id number] 2.840.1.073229.3.579.2.1258 1992 Unknown [id number] 2.16840.1.825439.3.579.2.1258 1992 Unknown [id number] 2.16840.1.245986.3.579.2.1258 1992 Unknown [id number] 2.16840.1.176879.3.579.2.1259 1992 Unknown [id number] 2.16.840.1.036658.3.579.2.727 1992 Unknown [id number] 2.16.840.1.059796.3.579.2.727 1992 Unknown [id number] 2.16.840.1.607713.3.579.2.727 1992 Unknown [id number] 2.16.840.1.054328.3.579.2.727 1992 Unknown [id number] 2.16.840.1.350796.3.579.2.727 1992 Unknown [id number] 2.16.840.1.770007.3.579.2.1286 1992 Unknown [id number] 2.16.840.1.003115.3.579.2.1286 1992 Unknown [id number] 2.16.840.1.775802.3.579.2.196 1959 Medicaid [id number] 1959 Unknown [id number] 1959 Unknown [id number] 1959 Unknown [id number] Unknown [id number] Unknown [id number] 2.16.840.1.983423.3.579.2.531 Social History Date Type Detail Facility Start: 01-23-2024 End: 08-08-2024 Tobacco smoking status Ex-smoker (finding) [facility] Start: 12-26-2020 End: 07-31-2024 Sex Assigned At Unknown [facility] History of tobacco use Current smoker [facility] History of tobacco use Cigarette Smoker P [facility] Start: 12-26-2020 End: 07-31-2024 Cigarettes smoked current (pack per day) - Reported 0.5 [facility] Start: 01-23-2024 End: 07-31-2024 Tobacco use and exposure Smokeless tobacco [facility]-user [facility] Start: 08-03-2024 End: 04-03-2025 Alcoholic beverage intake Lifetime non-drinker (finding) [facility] Start: 09-10-2023 Tobacco Comment 5 or less ciga rettes a day [facility] Start: 1992 Sex assigned at Not on file [facility] [employer] Start: 09-10-2023 [facility] sm[facility] Start: 02-14-2024 End: 05-31-2025 Alcoholic beverage intake Ex-drinker (finding) [employer] [facility] Has the [employer], or [employer] threatened to shut off services in your home in past 12Mo No [employer] How often to you hav e a drink containing alcohol? Never [facility] How many standard dr inks containing alcohol do you have on a typical day? Patient does not drink [facility] Tobacco smoking stat [facility] Unknown if ever smoked [facility] Work Phone: Start: 03-24-2018 End: 02-20-2025 Sex Female (finding) [facility] Start: 1990 Sex Assigned At Female F [facility] Sexual Orientation [facility] [place] Medical Equipment Procedure Code Equipment Code Equipment Origin al Text Equipment Identifier Dates Stent Vsc 18mm X 100mm Venous Nitinol Slf Expanding Abre - [id number] Start: 01-24-2024 Functional Status Date Assessment Result Facility 12-26-2024 Functional Status N/A [facility] 10-03-2024 Functional Status N/A [facility] 08-08-2024 Functional Status N/A [facility] Clinical Notes 02-10-2024 to 07-23-2025 Note Date & Type Note Facility 07-23-2025 Evaluation note Diagnosis Onset Date Resolution Disorder of left sacroiliac joint acute July 23, 2025 9:33am Low back pain acute July 162024 3:49pm Other chronic pain acute 2024 3:49pm Sacroiliitis, not elsewhere classified acute July 162024 3:49pm [facility] Work Phone: [phone]) 350-504707-17-2025 Evaluation + Plan note* Assessment & Plan Note - Jani Bridges MD - 05/31/2025 7:02 PM EDTAssociated Problem(s): DVT (deep venous thrombosis) ([facility]) Continue anticoagulation. 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 Duplex ultrasound in a year. [facility]07-17-2025 Miscellaneous Notes* Assessment & Plan Note - Jani Bridges MD - 05/31/2025 7:02 PM EDTAssociated Problem(s): DVT (deep venous thrombosis) ([facility]) Continue anticoagulation. 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 Duplex ultrasound in a year. [facility] History of Present illness Narrative* Jani Bridges MD - 05/31/2025 8:30 AM EDT Images from the original note [...] mg total) by mouth every6 (six) hours. (Patient not taking: Reported on [...] 01/24/2024 Performed by Jani Bridges MD at [facility] Social and Family History: Social [...] Plan: Problem List DVT (deep venous thrombosis) ([facility]) Current Assessment & Plan Continue anticoagulation. Relevant [...] you for your understanding. [facility] History of Present illness Narrative* Gaby Pal LPN - 04/17/2025 8:00 AM EDT Reason for Appointment: Patient ID: Tawana Silverman is a 35 y.o. female who presents for No chief complaint on file. Patient presents today via telephone call for a telehealth appointment. Patients Phone #: [phone] (mobile) Date: 04/17/2025 Time: 9:51 AM of [...] of: Andre Treviño DO documented in [facility]'[id number] History of Present illness Narrative* Gaby Pal LPN - 04/03/2025 9:20 AM EDT Reason for Appointment: Patient ID: [...] nursing note reviewed. Exam conducted with a parcel post order clerk present. Vitals: Estimated body mass index is [...] of: Andre Treviño DO documented in this encounterMercy Hospital St. John'[id number] Hospital Discharge instructions Patient Education 12/26/2024 10:32:16 Abdominal Pain, [...] Follow these instructions at home: Medicines Take ufiy-ftk-nsyqmbu and prescription medicines only as told by [...] provider. Document Revised: 08/18/2023 Document Reviewed: 08/18/2023 [employer] Patient Education 2023 [employer]. Follow Up Care 10/03/2024 10:18:19 With:[facility] [place] Address: When: Unknown Comments:Only if needed/new problems arise. No scheduled appointment indicated at this time. [facility] [place] 02-11-2025 NotePatient Education Gastroenterology Abdominal Pain, Adult Pain in [...] these instructions at home: Medicines ??? Take iwww-wpc-ulhgaee and prescription medicines only as told by [...] provider. Document Revised: 08/18/2023 Document Reviewed: 08/18/2023 [employer] Patient Education ? 2023 [employer].[facility] 10-03-2024 Evaluation + Plan noteExtracted from: Title:Urology Progress Note Author:Gema HOYOS MD Date:10/03/24 Impression and Plan Impression: #1. She has urinary frequency, urgency and urge incontinence. 2. Her pelvic pain may be from endometriosis. Plan: #1. For now, she will try Myrbetriq 50 mg daily. Follow-up will be in 4 months for reevaluation. Future Appointments Appointment Date:12/26/2024 09:30:00 AM Scheduled Provider:SYDNEE ALVAREZ PA-C [facility] Type:URO Office Visit Appointment Date:04/04/2025 01:00:00 PM Scheduled Provider:Julien HOYOS MD Location:[facility] [place] Appointment Type:URO Office Visit [facility] [id number] Hospital Discharge instructions Patient Education 10/03/2024 10:03:00 [...] Up Care 08/18/2024 15:06:34 With:Julien HOYOS Address: [address] [place] [address] [place] [address]- Business (1) When:01/31/2025 10:02:39 Comments:With Roxane Felder [facility] 11-19-2024 NoteProgress Note-Physician Patient: TAWANA SILVERMAN [...] All Problems Endometriosis (clinical) / SNOMED CT 155992369 / Confirmed Deep venous thrombosis / SNOMED CT 810268158 / Confirmed Factor V deficiency / SNOMED CT 1831195 / Confirmed Leukocytosis / SNOMED CT 133328203 / Confirmed Migraine / SNOMED CT 28377232 / Confirmed Anxiety / SNOMED CT 79224650 / Confirmed Chronic pelvic pain in female / SNOMED CT 215607591 / Confirmed Chronic bladder pain / SNOMED CT 2550319777 / Confirmed Recurrent vaginitis / SNOMED CT 50995818 / Confirmed Histories Past Medical History: No active or resolved past medical history items have been selected or recorded. Family History: Congenital heart disease Mother Primary malignant neoplasm of female breast Grandparent Alcoholism Mother Migraines Mother Procedure history: Thrombectomy (02074270) in 2023 at 34 Years. Salpingectomy (8383525441) on 01/07/2024 at 33 Years. Comments: 08/08/2024 8:57 NHUNG Mejia MA Therese C partial History of appendectomy (situation) (2913490219). History of - hysterectomy (context-dependent category) (136446966). Laparoscope (183505839). Comments: 08/08/2024 8:55 NHUNG Mejia MA Therese Anastasiya pelvic Social History Social & Psychosocial Habits [...] Follow-up will be in 4 months for reevaluation.[facility] HospitalComment on above:Result Comment: Electronically Signed By: ROMAIN NAVARRO, Julien Pimentel.shikha\Date and Time Signed: 10/03/24 10:13 [id number] NotePatient Education Custom Cystoscopy with Urethral Dilation [...] you have a fever over 100 degreesFisher [facility] History of Present illness Narrative* April Beth, [employer] - 08/31/2024 10:10 AM EDT Reason for [...] nursing note reviewed. Exam conducted with a parcel post order clerk present. Vitals: Estimated body mass index is [...] scheduled for a scope on 10/03/24 @ [facility]. Urology also referred patient to PT [...] of: Andre Treviño DO documented in this encounterMercy Hospital St. John'[id number] Hospital Discharge instructions Patient Education 08/08/2024 12:40:13 [...] known. Follow these instructions at home: Take hhyc-osc-fxzwzyj and prescription medicines only as told by [...] provider. Document Revised: 03/10/2022 Document Reviewed: 03/10/2022 [employer] Patient Education 2023 [employer]. Follow Up Care 08/03/2024 15:49:20 With:[facility] [place] Address: [place] [address] Business (1) When: Unknown Comments:our personal trainer will be contacting you for follow-up [facility] NoteUrology Office/Clinic Note Chief Complaint Dr. [...] test anxiety. 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 Ordered: diazepam, See Instructions, 1 tab po 30-60 mins prior to cystoscopy, # 1 tab(s), Refills(s) 0, [facility]acy: [id number], 158, cm, 08/08/24 11:39:00 EDT, Height/Length Dosing, 60, kg, 08/08/24 11:39:00 EDT, Weight Dosing E&M of New Patient Moderate 45-59 Min 91423 2. Chronic pelvic pain in female (R10.2: Pelvic and perineal pain) Sp hysterectomy 2017 w several laproscopy d/t endometriosis. Had laproscopy Dec 2023 and bilat salpingectomy at that time. Pt reports no endometriosis found at that time. Will refer to PFPT at [facility] (her sx are a bit beyond my scope of PFPT) to assess for hypertonicpelvic floor, etc. Ordered: diazepam, See Instructions, 1 tab po 30-60 mins prior to cystoscopy, # 1 tab(s), Refills(s) 0, Pharmacy: [id number], 158, cm, 08/08/24 11:39:00 EDT, Height/Length Dosing, 60, kg, 08/08/24 11:39:00 EDT, Weight Dosing 73187 Measure Post Void residual urine and/or bladder capacity by US- non-imaging E&M of New Patient Moderate 45-59 Min 09728 Urnls Dip Stick Auto w/o Microscopy POC 64413 3. Recurrent vaginitis (N76.0: Acute vaginitis) Also reports frequent vaginal infections - bacterial and fungal. Ordered: diazepam, See Instructions, 1 tab po 30-60 mins prior to cystoscopy, # 1 tab(s), Refills(s) 0, Pharmacy: [id number], 158, cm, 08/08/24 11:39:00 EDT, Height/Length Dosing, 60, kg, 08/08/24 11:39:00 EDT, Weight Dosing E&M of New Patient Moderate 45-59 Min 12292 Follow-up With When Contact Information [facility] [place] [address] [place] [address] Business (1) Additional Instructions: our personal trainer will be contacting you for follow-up Patient Education Pelvic Pain, Female Problem List/Past Medical History Ongoing Anxiety Chronic bladder pain Chronic pelvic pain in female Deep venous thrombosis Endometriosis (clinical) Factor V deficiency Leukocytosis Migraine Recurrent vaginitis Historical No qualifying data Procedure/Surgical History Salpingectomy (01/07/2024), Thrombectomy (2023), H/O: hysterectomy, History of appendectomy, Laparoscope. Medications CV (more content not included)...[facility] HospitalComment on above: Result Comment: Electronically Signed By: SYDNEE ALVAREZ PA-C\Date and Time Signed: 08/08/2412:41 [id number] NotePatient Education Obstetrics and Gynecology Pelvic Pain, [...] Follow these instructions at home: ? Take tywn-utl-xkuuwps and prescription medicines only as told by [...] provider. Document Revised: 03/10/2022 Document Reviewed: 03/10/2022 [employer]Mania Patient Education ? 2023 [employer].[facility] 07-31-2024 History of Present illness Narrative* [...] nursing note reviewed. Exam conducted with a parcel post order clerk present. Vitals: Estimated body mass index is [...] of: Andre Treviño DO documented in this encounterMercy Hospital St. John'[id number] History of Present illness Narrative* GEMA Earl [...] (Neurontin) 300 MG capsule 1 capsule HYDROcodone-acetaminophen ([place]) 5-325 MG tablet TAKE 1 TABLET EVERY 4 HOURS ibuprofen 800 MG tablet TAKE 1 TABLET EVERY 8 HOURS Lactobacillus Acid-Pectin (Acidophilus/[place] Pectin) tablet 1 tablet, Oral, Daily with [...] behalf of: GEMA Earl documented in this encounterMercy Hospital St. John'[id number] Evaluation + Plan note* Assessment & Plan Note - Jani Bridges MD - 05/25/2024 9:17 AM EDT Associated Problem(s): DVT (deep venous thrombosis) ([facility]) Continue anticoagulation for total of 6 months. She probably benefit from D- dimer check at that time. [facility]07-11-2024 Miscellaneous Notes* Assessment & Plan Note - Jani Bridges MD - 05/25/2024 9:17 AM EDTAssociated Problem(s): DVT (deep venous thrombosis) ([facility]) Continue anticoagulation for total of 6 months. She probably benefit from D- dimer check at that time. 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 She will continue aspirin indefinitely. She will get a surveillance imaging in a year. 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 She will continue aspirin indefinitely. She will get a surveillance imaging in a year. [facility]07-11-[facility] History of Present illness Narrative* Jani [...] 01/24/2024 Performed by Jani Bridges MD at [facility] Social and Family History: Social [...] Plan: Problem List DVT (deep venous thrombosis) ([facility]) May-Thurner syndrome - Primary Current Assessment & [...] iliac vein of left lower extremity ([facility]) Jani Bridges MD, [place], RPVI, FSVS, FACS [facility] This note was created with the assistance of a speech recognition program. While intending to generate a timely document that accurately reflects the content of the visit, no guarantee can be provided that every grammatical or spelling mistake has been or will be identified or corrected. Thank you for your understanding. 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 Continue aspirin. 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 - Erythrocyte Sedimentation Rate (ESR); Future - C-reactive protein; Future Jani Bridges MD, [place], RPVI, FSVS, FACS [facility] This note was created with the assistance of a speech recognition program. While intending to generate a timely document that accurately reflects the content of the visit, no guarantee can be provided that every grammatical or spelling mistake has been or will be identified or corrected. Thank you for your understanding. documented in this encounterFostoria City Hospital03-28-2024 History of Present illness Narrative* Jani Bridges MD - 02/10/2024 2:40 PM EDT Images from the original note were not included. [facility] [address] [place] [id number] Subjective: Patient ID: Tawana Silverman is a [...] Problem List Diagnosis DVT (deep venous thrombosis) ([facility]) May-Thurner syndrome Current Outpatient Medications: acetaminophen (TYLENOL [...] iliac vein of left lower extremity ([facility]) May-Thurner syndrome Plan Plan: Cristóbal MITCHELL US of the left iliac veins F/U in 3 months Jani Bridges MD, [place] documented in this encounterCherrington Hospital Health SystemEvaluation + Plan note No data available for this section [facility] evaluation + Plan note Future Appointments Appointment Date:04/04/2025 01:00:00 PM Scheduled Provider:Julien HOYOS MD Location:[facility] Appointment Type:URO Office Visit [facility] evalhegfyu note* Diagnosis Vaginal discharge Leukorrhea, not specified [...] [facility] System[facility] noteNo assessment information available [facility] Work Phone: Evaluation note* Diagnosis Nipple pain Other sign and symptom in breast Nipple discharge Other sign and symptom in breast Nipple infection in female Antibiotic-induced yeast infection documented [facility] encounter [facility]* Diagnosis Yeast infection documented in this encounter [facility]* Diagnosis 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 Compression [...] available for this section [facility] [place] InstructionsNot on filedocumented in this encounter [facility] SystemInstructionsNot on filedocumented in this encounter [facility] SystemInstructionsNot on filedocumented in this encounter [facility] SystemInstructionsNot on filedocumented in this encounter [facility] SystemInstructionsNot on filedocumented in this encounter [facility] SystemInstructionsNot on filedocumented in this encounter [facility] SystemProgress note No data available for this section [facility] reason for referral (narrative)No reason for referral information availableKettering Health Miamisburg Work Phone: Summary Purpose Family History No Family History [...] iliac vein of left lower extremity ([facility]) May-Thurner syndrome Procedures Vas IVC/iliac duplex complete Jani Bridges MD [address], [address] [address] Referral ID Status Reason Start Date Expiration Date V isits Requested Visits Authorized [id number] Pending Review 02/11/2024 02/10/2025 1 1 Specialty Diagnoses / Procedures Referred By Contac t Referred To Contact Radiology Diagnoses 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 ([facility]) Procedures CT angiogram extremity upper left Jani Bridges MD [address], [address] [address] Referral ID Status Reason Start Date Expiration Date V isits Requested Visits Authorized [id number] Pending Review 04/27/2024 04/27/2025 1 1 Chief Complaint and Reason for Visit Chief Complaint Admit Date C only;Chronic Pelvic Pain February 19 9:00am Chief Complaint Admit Date TB CONSULT DR RODRIGEZ LT HIP PAIN MRI [facility] 2024 9:33am Chief Complaint Admit Date TB CONSULT DR RAIN HEALY HIP PAIN MRI [facility] 2024 9:33am CONSULT DR BENTLEY LT HIP July 26, 2025 3:49pm Reason for Visit Admit Date Disorder of left sacroiliac joint 2024 9:33am Low back pain July 26, 2025 3:49pm Other chronic pain July 26, 2025 3:49pm Sacroiliitis, not elsewhere classified S [facility] 2024 3:49pm Additional Source Comments INFORMATION SOURCE (unrecogn ized section and content) DATE CREATED AUTHOR 04/23/2023 [facility] DATE CREATED AUTHOR AUTHOR'S ORGANIZ ATION 01/27/2024 [facility] DATE CREATED AUTHOR AUTHOR'S ORGANIZ ATION 05/31/2024 [facility] DATE CREATED AUTHOR AUTHOR'S ORGANIZ ATION 04/04/2025 [facility] DATE CREATED AUTHOR AUTHOR'S ORGANIZ ATION 04/11/2025 [facility] DATE CREATED AUTHOR AUTHOR'S ORGANIZ ATION 06/03/2025 [facility] DATE CREATED AUTHOR AUTHOR'S ORGANIZ ATION 06/27/2025 [facility] DATE CREATED AUTHOR AUTHOR'S ORGANIZ ATION 07/08/2025 [facility] Patient Care team informatio n (unrecognized section and content) Cone Examiner Relationship Specialty Start Date End Date Usman Rodrigez MD [address] [place] [address] PCP - General Family Medicine 03/24/23 Cone Examiner Relationship Specialty Start Date End Date Usman Rodrigez MD [address] [place] [address] PCP - General Family Medicine 03/24/23 Cone Examiner Relationship Specialty Start Date End Date Usman Rodrigez MD [address] [place] [address] PCP - General Family Medicine 03/24/23 Cone Examiner Relationship Specialty Start Date End Date Usman Rodrigez MD [address] [place] [address] PCP - General Family Medicine 03/24/23 Cone Examiner Relationship Specialty Start Date End Date Usman Rodrigez MD [address] [place] [address] PCP - General Family Medicine 03/24/23 Cone Examiner Relationship Specialty Start Date End Date Usman Rodrigez MD [address] [place] [address] PCP - General Family Medicine 03/24/23 Cone Examiner Relationship Specialty Start Date End Date Usman Rodrigez MD [address] [place] [address] PCP - General 02/09/24 Cone Examiner Relationship Specialty Start Date End Date Usman Rodrigez MD [address] [place] [address] PCP - General 02/09/24 Cone Examiner Relationship Specialty Start [place] [address] [place] [address] PCP - General 02/09/24 Cone Examiner Relationship Specialty Start [place] [address] [place] [address] PCP - General 02/09/24 Team Status: Active Member Role Status Dates Usman Rodrigez MD Primary Care Provider Active Team Status: Inactive Member Role Status Ya Alvarez PA-C Attending Provider Active Start: February 19, 2025 End: February 19, 2025 Usman Rodrigez MD Primary Care Provider Active Start: February 19, 2025 End: February 19, 2025 Cone Examiner Relationship Specialty Start Date End Date Usman Rodrigez MD PCP - General 02/09/24 Cone Examiner Relationship Specialty Start Date End Date Usman Rodrigez MD PCP - General Family Medicine 03/24/23 Theresa Perez, [facility] [address] [address] Bridge [facility] Behavioral Health 01/08/25 Cone Examiner Relationship Specialty Start Date End Date Usman Rodrigez MD PCP - General Family Medicine 03/24/23 Theresa Perez, [facility] [address] [place] [address] [facility] Behavior[facility] 01/08/25 Cone Examiner Relationship Specialty Start Date End Date Usman Rodrigez MD PCP - General Family Medicine 03/24/23 Theresa Perez, [facility] [address] [place] [address] Bridge [facility] 01/08/25 Cone Examiner Relationship Specialty Start Date End Date Usman Rodrigez MD PCP - General Family Medicine 03/24/23 Cone Examiner Relationship Specialty Start Date End Date Usman Rodrigez MD PCP - General 02/09/24 Team Status: Inactive Member Role Status Dates Usman Rodrigez MD Primary Care Provider Active Start: July 23, 2025 End: July 23, 2025 Patricio Bentley DO Attending Provider Active S tart: July 23, 2025 End: July 23, 2025 Team Status: Inactive Member Role Status Dates Usman Rodrigez MD Primary Care Provider Active Start: July 26, 2025 End: July 26, 2025 Lul Loyd MD Attending Provider Active Sta rt: July 26, 2025 End: July 26, 2025 Reason for Visit (unrecogniz ed section and [...] BE BASED ON THE PRIMARY CLINICAL RECORDS. [facility]. provides no warranty or guarantee of the accuracy or completeness of information in this document.
== END 2025-07-27 08:35 | disposition home or self-care (01) ==
LOC: PM 08:34
PROVIDERS: PCP Family Medicine; Visit Provider Nurse Practitioner
DX: M51.369 Other intervertebral disc degeneration, lumbar region without mention of lumbar back pain or lower extremity pain (principal); M46.1 Sacroiliitis, not elsewhere classified
CPT/HCPCS: G0463

== ENCOUNTER 2025-08-06 12:56 | Outpatient (REF) | payer BC, SELFPAY ==
--- OUTSIDE RECORDS SUMMARY | 2025-08-06 13:01 | XMS_ITS | CCD ---
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 Name Role Phone RAIN ., DR MARY Attending Unavailable HOY ., DR MARY Admitting Unavailable HOY ., DR MARY Primary Care Unavailable HOY ., DR MARY Consulting Unavailable SARAI WILKINS Consulting Unavailable LAVON ELIAZLDE Consulting Unavailable SISTER, CUCA Consulting Unavailable ARTURO [...] Usman Rodrigez MD Primary Care Provider Chris [facility], Theresa L Unavailable ANDRE TREVIÑO Attending Unavailable CHRIS, THERESA Martinez Attending Unavailable BHARTI FRIED Attending Unavailable CHRIS, THERESA L Attending Unavailable HUDSON, ANDRE Attending Unavailable PEREZ, THERESA L Attending Unavailable HUDSON, ANDRE Attending Unavailable PEREZ, THERESA L Attending Unavailable HOYOS, Julien R Referring Unavailable ANTONIO, SYDNEE E Attending Unavailable ANTONIOSYDNEE E Attending Unavailable HOYOS, Julien R Admitting Unavailable HOYOS, Julien R Attending Unavailable HOYOS, Julien R Referring Unavailable HOYOS, Julien R Attending Unavailable HOYOS, Julien R Referring Unavailable HOY, USMAN M Referring Unavailable HOVero, USMAN M Primary Care Unavailable JANI BRIDGES F Attending Unavailable USMAN RODRIGEZ M Referring Unavailable USMAN RODRIGEZ M Primary Care Unavailable Usman Rodrigez Primary Care Unavailable Antonio, Sydnee Flanagan Attending Unavailable Antonio, Sydnee Flanagan Admitting Unavailable Kirit Pierce MD Attending Unavailable Usman Rodrigez MD Primary Care Provider [phone] Patricio Bentley DO Attending Provider [phone] Lul Loyd MD Attending Provider [phone] Usman Rodrigez MD Primary Care Provider [phone] Allergies Allergy Classification Reported Allergen(s) Allergy Type Date of Onset Reaction(s) Facility (1 source) No Known Medication Allergies; Translations: [No Known Medication Allergies] Propensity to adverse reactions (disorder) [facility] Repository Medications Current Medications Medication Drug Class(es) Dates Sig (Normalized) Sig (Original) acetaminophen 500 mg oral tablet (20 sources) Start: 01-25-2024 take 2 tablets by mouth every six hours acetaminophen (Tylenol) 500 MG tablet Take 1,000 mg by mouth every 6 (six) hours 01/25/2024 Active amoxicillin 875 mg / clavulanate [...] 7 days. 21 capsule 06/27/2024 07/04/2024 Active citalopram 20 mg oral tablet (2 sources) Serotonin Reuptake Inhibitor Start: 08-06-2025 End: 02-02-2026 take 0.5 tablet by mouth once daily citalopram (CeleXA) 20 MG tablet Indications: Pelvic pain in female Take 0.5 tablets (10 mg) by mouth Daily 15 tablet 5 08/06/2025 02/02/2026 Active cyclobenzaprine hydrochloride 5 mg oral tablet (13 sources) Muscle Relaxant Start: 07-23-2025 take 1 [...] cystoscopy, # 1 tab(s), Refills(s) 0, Pharmacy: [facility]/pharmacy #[id number], 158, cm, 08/08/24 11:39:00 EDT, Height/Length [...] capsule 1 capsule 05/26/2024 Active lactobacillus acidophilus [id number] unt / pectin 100 mg oral tablet (15 sources) take 1 tablet by mouth once daily at breakfast acidophilus-pect in, citrus 25 million cell -100 mg tablet Take 1 tablet by mouth daily with breakfast. Active End: 07-31-2024 take 1 tablet by mouth at mealtime Lactobacillus Acid-Pectin (Acidophilus/Nicut Pectin) tablet Take 1 tablet by mouth [...] Daily, # 30 tab(s), Refills(s) 6, Pharmacy: [facility]/pharmacy #[id number], 158, cm, 08/08/24 11:39:00 EDT, Height/Length Dosing, 60, kg, 08/08/24 11:39:00 EDT, Weight Dosing Start Date: 10/03/24 Status: Ordered Nature's Bounty Probiotic (4 sources) Start: 08-08-2024 Nature's Bounty Probiotic Oral, Daily Start Date: 08/08/24 Status: Ordered Repeat number: 1 Start: 08-08-2024 Nature's Bount y Probiotic Oral, Daily Start Date: 08/08/24 Status: Ordered ondansetron 4 mg disintegrating oral tablet (20 sources) Serotonin-3 Receptor Antagonist Start: 02-08-2024 End: 08-06-2025 take 1 tablet by mouth every six hours as needed for nausea and vomiting and nausea and nausea ondansetron ODT (Zofran-ODT) 4 MG disintegrating tablet Indications: Nausea Take 1 tablet (4 mg) by mouth every 6 (six) hours if needed for nausea or vomiting for up to 30 doses 30 tablet 1 02/08/2024 08/06/2025 Discontinued (Therapy completed) oxyCODONE hydrochloride 5 mg oral tablet (15 [...] Active phenazopyridine hydrochloride 100 mg oral tablet (19 sources) Start: 07-31-2024 End: 08-06-2025 phenazopyridine (Pyridium) 100 MG tablet Indications: Chronic bladder pain Take 1 tablet (100 mg) by mouth 3 (three) times a day as needed for bladder spasms for up to 9 doses 9 tablet 07/31/2024 08/06/2025 Discontinued (Therapy completed) Probiotic tablet delayed-release (20 sources) Probiotic tablet delayed-release 1 (one) time each day at the same time. Active Completed/Discontinued Medications Medication Drug Class(es) Dates Sig (Normalized) Sig (Original) acetaminophen 325 mg / HYDROcodone bitartrate 5 mg oral tablet (9 sources) Opioid Agonist Start: 01-07-2024 End: 07-31-2024 HYDROcodone-acetam inophen ([place]) 5-325 MG tablet TAKE 1 TABLET EVERY [...] procedure, # 2 tab(s), Refills(s) 0, Pharmacy: [facility]/pharmacy #[id number], 158, cm, 08/08/24 11:39:00 EDT, Height/Length [...] visceral atherosclerosis (7 sources) Unspecified atherosclerosis of [place] arteries of extremities, other extremity; Translations: [Occlusion [...] Inferior Vena Cava and Illiac vesselson 05-23-2025 [place] [address] Ultrasound Report Signed Patient: TAWANA SILVERMAN MR#: [id number] : 1990 Acct:[id number] Age/Sex: 35 / F ADM Date: 05/23/25 Loc: US Attending Dr: Jani Bridges M.D. Ordering Physician: Jani Bridges M.D. Date of Service: 05/23/25 Procedure(s): US duplex IVC Accession Number(s): [id number] cc: Usman Rodrigez M.D.; Jani Bridges M.D. The [place] [id number] Patient Name: TAWANA SILVERMAN MRN: [facility]:[id number] date: 1990 Sex: F Assigned Patient Location: US Current Patient Location: US Accession/Order Number: [id number] Exam Date: 05/23/2025 10:35 Report Date: 05/23/2025 [...] 05/23/2025 10:38 AM Dictation Location: [place] [address] Electronically authenticated by: [id number] Y Date: 05/23/2025 10:38 Dictated By: Gaby Lay M.D. Signed By: 05/23/25 1041 DD/ 1038 TD/TT: Agricultural Adviser: [facility] Radiology, Radiologist, - 05/23/2025 [place] [address] Ultrasound Report Signed Patient: TAWANA SILVERMAN MR#: [id number] : 1990 Acct:[id number] Age/Sex: 35 / F ADM Date: 05/23/25 Loc: US Attending Dr: Jani Bridges M.D. Ordering Physician: Jani Bridges M.D. Date of Service: 05/23/25 Procedure(s): US duplex IVC Accession Number(s): [id number] cc: Usman Rodrigez M.D.; Jani Bridges M.D. [place] [id number] Patient Name: TAWANA SILVERMAN MRN: [id number] date: 1990 Sex: F Assigned Patient Location: US Current Patient Location: US Accession/Order Number: [id number] Exam Date: 05/23/2025 10:35 Report Date: 05/23/2025 [...] 05/23/2025 10:38 AM Dictation Location: [place] [address] Electronically authenticated by: [id number] Y Date: 05/23/2025 10:38 Dictated By: Gaby Lay M.D. Signed By: 05/23/25 1041 DD/ 1038 TD/TT: Agricultural Adviser: [facility] Symcat Radiology Study observation (narrative) [facility] US.doppler Thoracic and Abdo rinku Aorta and Inferior Vena Cava and Illiac vesselsOrdered By: Radiologist Radiology on 05-23-2025 [facility] Instant API e Work Phone: Urology Office/Clinic Noteon 12-26-2024 [...] has improved. Has been doing PFPT at [facility] since August. Noticing a lot of improvement [...] E&M of Est. Patient Low 20-29 Min 41417 Urnls Dip Stick Auto w/o Microscopy POC [id number] Follow-up With When Contact Information [facility] Additional Instructions: Only if needed/new problems arise. [...] 2024-08-08: TENIVAC GIVEN BY DR RODRIGEZ IN [place] poliovirus vaccine, inactivated 07/11/1997 Recorded measles/mumps/rubella virus [...] Dipstick: 2+ (100 mg/dl) (12/26/24 10:01:00) Specific [place] Urine Dipstick: 1.025 (12/26/24 10:01:00) Urine Appearance Urine Dipstick: Clear (12/26/24 10:01:00) Urine Color Urine Dipstick: Yellow (12/26/24 10:01:00) Urobilinogen Urine Dipstick: Normal 0.2-1 EU/dl (12/26/24 10:01:00) pH Urine Dipstick: 6.5 (12/26/24 10:01:00) Normal [facility] Comment on above: Result Comment: Elec tronically Signed By: SYDNEE ALVAREZ PA-C\.br\Date and Time Signed: 12/26/24 10:31 EST Main OR Preoperative Recordo n 11-13-2024 Main OR Preoperative Record Main OR Preoperative Record Holding Area Document Type FTURO Summary Primary Physician: Julien HOYOS MD Finalized Date/Time: 11/13/24 16:38:17 Pt. Name: TAWANA SILVERMAN/Sex: 1990 Female Med Rec #: [id number] Physician: Julien HOYOS MD Financial #: [id number] Pt. Type: O Room/Bed: / Admit/Disch: 10/03/24 [...] Complaints of Pain: No Skin Integrity Intact, Virgin, Warm, & Dry Vitals - EU Blood Pressure 109/72 Pulse 80 bpm Respirations 20 br/min SPO2 97 % Additional None RN Reviewed Yes Specimens Collected Last Modified By: Elizabet Grimm RN 10/03/24 09:45:24 Finalized By: Lynda CAROLINA, Lyudmila ALMONTE Document Signatures Signed By: Shalonda Jane LPN 10/03/24 09:28 GAGE Howell RN, Ruthann 11/13/24 16:38 Normal [facility] Main OR Intraoperative Recor don 10-03-2024 Main OR Intraoperative Record Main OR Intraoperative Record IntraOp Document Type FTURO Summary Primary Physician: Julien HOYOS MD Finalized Date/Time: 10/03/24 10:05:10 Pt. Name: TAWANA SILVERMAN/Sex: 1990 Female Med Rec #: [id number] Physician: Julien HOYOS MD Financial #: [id number] Pt. Type: O Room/Bed: / Admit/Disch: 10/03/24 [...] Nel Pearson Role Performed Surgeon - Primary Asbestos Siding Mechanic - Primary Scrub - Primary Time In [...] Out Julien HOYOS MD, Verified (If Participants Elizabet Grimm RN Applicable) [...] By: Elizabet Grimm RN 10/03/24 10:05 Normal [facility] Operative Reporton Operative Report Operative Report [...] urine. The Urethra was dilated to: 30 Latvian w/ sounds. Devices Implanted: None. Removal: Cystoscope is removed, The patient tolerated it well. Postoperative Information Discharge: Patient is discharged home with antibiotic coverage, Follow up arranged. She will start Myrbetriq 50 mg daily. Follow-up will be in 4 months. Normal [facility] Comment on above: Result Comment: Elec tronically Signed By: ROMAIN NAVARRO, Julien Pimentel.br\Date and Time Signed: 10/03/24 10:11 EST IGP,APTIMA HPV,AGE GDLNon AGE GDLN ACOG TESTING Note . [facility] Comment on above: TESTS RESULT FLAG UN ITS REF RANGE LAB Clinician Provided Cytology Information Source.............Vagina No. of containers..01 ThinPrep Vial Age Algo ACOG Eneida... FLAG LEGEND: L-Low Normal,H-High Normal,LL-Alert Low,HH-Alert High <-Panic Low,>-Panic High,A-Abnormal,AA-Critical Abnormal Performed at: 01 =[address] [place] [address] Sandy Lemon MD, HPV APTIMA Negative Negative [facility] Comment on above: This nucleic acid am plification test detects fourteen high- risk HPV types (16,18,31,33,35,39,45,51,52,56,58,59,66,68) without differentiation. Performed at: =G - [facility], [place] [id number] [employer]: Sandy Lemon MD, Phone: [phone] Performed at: [facility] [address] [address] [place], [place] [id number] [employer]: Holden Croft MD, Phone: [phone] IGP, APTIMA HPV, RFX 16/18,45 Note . [facility] Comment on above: TESTS RESULT FLAG UN ITS REF RANGE LAB DIAGNOSIS: 02 NEGATIVE FOR INTRAEPITHELIAL LESION OR MALIGNANCY. Specimen adequacy: 02 Satisfactory for evaluation. Performed by: 02 Sola Aviles, Aircraft Instrument Mechanic ([facility]) . 02 Note: Note 03 [...] High,A-Abnormal,AA-Critical Abnormal Performed at: 02 K[facility] [place] [address] [address] [place] [address] Holden Croft MD, 03 WB [facility] [address] [address] Sandy Lemon MD, SPATULA-ALONE VAGINA [facility] No Panel Informationon 07-12 STAPHYLOCOCCUS EPIDERMIDIS, HAEMOLYTICUS, LUGDUNENSIS, SAPROPHYTICUS (URINA 0.000 [facility] Healthcare STAPHYLOCOCCUS EPIDERMIDIS, HAEMOLYTICUS, LUGDUNENSIS, SAPROPHYTICUS (URINA Not detected [facility] URINARY TRACT INFECTION (HTR X)on 07-12-2024 ACINETOBACTER BAUMANII 0.000 [facility] ACINETOBACTER BAUMANII Not detected [facility] MICHEAL ALBICANS, PARAPSILOSIS, TROPICALIS 0.000 [facility] MICHEAL ALBICANS, PARAPSILOSIS, TROPICALIS Not detected [facility] Healthcare MICHEAL GLABRATA 0.000 [facility] a ltare MICHEAL GLABRATA Not detected [facility] H ealtare MICHEAL KRUSEI 0.000 [facility] MICHEAL KRUSEI Not detected [facility] CITROBACTER FREUNDII 0.000 [facility] CITROBACTER FREUNDII Not detected [facility] Healthcare ENTEROBACTER AEROGENES, CLOACAE 0.000 [facility] ENTEROBACTER AEROGENES, CLOACAE Not detected [facility]alt[facility] re ENTEROCOCCUS FAECALIS, FAECIUM 0.000 [facility] Health[facility] e ENTEROCOCCUS FAECALIS, FAECIUM Not detected [facility] e ESCHERICHIA COLI 0.000 [facility] ESCHERICHIA COLI Not detected [facility] KLEBSIELLA PNEUMONIAE, OXYTOCA 0.000 [facility] Health are KLEBSIELLA PNEUMONIAE, OXYTOCA Not detected [facility] [...] - righton 04-03-2024 Radiology Study observation (narrative) [facility] US.doppler Upper extremity v ein - rightOrdered By: Janet Almaguer on 04-03-2024 Radiology Study observation (narrative) [facility] US.doppler Lower extremity a rtery - righton 03-31-2024 [facility] US.doppler Upper extremity v ein - rightOrdered By: Janet Almaguer on 03-30-2024 [facility] BASIC METABOLIC PANLon 01-24 Anion gap [Moles/Vol] 7 mmol/L Normal 5-15 [facility] Comment on above: Performed By: #### C BCA, PINR, 55811-9, BMP #### [facility] ([id number]) [address], [address] [place] [address] Calcium [Mass/Vol] 8.7 mg/dL Normal 8.5-10.5 [facility] Comment on above: Performed By: #### C BCA, PINR, 45312-8, BMP #### [facility] ([id number]) [address], [address] [place] [address] Chloride [Moles/Vol] 106 mmol/L Normal 98-109 [facility] Comment on above: Performed By: #### C BCA, PINR, 38516-8, BMP #### [facility] ([id number]) [address], [address] [place] [address] CO2 [Moles/Vol] 23 mmol/L Normal 22-32 [facility] Comment on above: Performed By: #### C BRENNON, PINR, 94039-2, BMP #### [facility] ([id number]) [address], [address] [place] [address] Creatinine [Mass/Vol] 0.57 mg/dL Normal 0.40-1.00 [facility] Comment on above: Result Comment: METH OD TRACEABLE TO IDMS STANDARD Performed By: #### C BRENNON PINR, 95263-2, BMP #### [facility] ([id number]) [address], [address] [place] [address] eGFR (CKD-EPI) NON-RACE DEPENDENT >90 Normal >59 [facility] Comment on above: Result Comment: Reported eGFR is based on the CKD-EPI 2020 equation that does not use a race coefficient. Performed By: #### C BRENNON PINR, 12173-2, BMP #### [facility] ([id number]) [address], [address] [place] [address] Glucose [Mass/Vol] 139 mg/dL High 65-99 [facility] Comment on above: Performed By: #### C BRENNON PINR, 11732-8, BMP #### [facility] ([id number]) [address], [address] [place] [address] Potassium [Moles/Vol] 4.3 mmol/L Normal 3.5-5.0 [facility] Comment on above: Performed By: #### C BRENNON, PINR, 30906-8, BMP #### [facility] ([id number]) [address], [address] [place] [address] Sodium [Moles/Vol] 136 mmol/L Normal 134-146 [facility] Comment on above: Performed By: #### C BCA, PINR, 25142-1, BMP #### [facility] ([id number]) [address], [address] [place] [address] Urea nitrogen [Mass/Vol] 6 mg/dL Normal 5-23 [facility] Comment on above: Performed By: #### C BRENNON, PINR, 01245-9, BMP #### [facility] ([id number]) [address], [address] [place] [address] CBC AND AUTO DIFFon 01-25-20 24 ABSOLUTE BASOPHIL 0.0 X10E9/L Normal 0.0-0.2 [facility] Comment on above: Performed By: #### C BRENNON, PINR, 91999-0, BMP #### [facility] ([id number]) [address], [address] [place] [address] ABSOLUTE NEUTROPHIL 2.9 X10E9/L Normal 1.5-6.6 [facility] Comment on above: Performed By: #### C BCA, PINR, 02580-5, BMP #### [facility] ([id number]) [address], [address] [place] [address] Basophils/100 WBC (Bld) 0.1 % Normal [facility] Comment on above: Performed By: #### C BRENNON, PINR, 30985-7, BMP #### [facility] ([id number]) [address], [address] [place] [address] Eosinophils (Bld) [#/Vol] 0.0 10*3/uL Normal 0.0-0.4 [facility] Comment on above: Performed By: #### C BCA, PINR, 43490-8, BMP #### [facility] ([id number]) [address], [address] [place] [address] Eosinophils/100 WBC (Bld) 0.0 % Normal [facility] Comment on above: Performed By: #### C BCA, PINR, 02532-9, BMP #### [facility] ([id number]) [address], [address] [place] [address] Erythrocyte distribution width (RBC) [Ratio] 11.8 % Normal 11.5-15.0 [facility] Comment on above: Performed By: #### C BRENNON, PINR, 26955-3, BMP #### [facility] ([id number]) [address], [address] [place] [address] Hematocrit (Bld) [Volume fraction] 35.5 % Normal 35-47 [facility] Comment on above: Performed By: #### C BRENNON PINR, 88511-4, BMP #### [facility] ([id number]) [address], [address] [place] [address] Hemoglobin (Bld) [Mass/Vol] 12.3 g/dL Normal 11.7-15.5 [facility] Comment on above: Performed By: #### C BRENNON PINR, 09936-2, BMP #### [facility] ([id number]) [address], [address] [place] [address] Lymphocytes (Bld) [#/Vol] 0.4 10*3/uL Low 1.0-3.5 [facility] Comment on above: Performed By: #### C BRENNON PINR, 14009-9, BMP #### [facility] ([id number]) [address], [address] [place] [address] Lymphocytes/100 WBC (Bld) 13.1 % Normal [facility] Comment on above: Performed By: #### Anastasiya WILLETT PINR, 00730-9, BMP #### [facility] ([id number]) [address], [address] [place] [address] MCH (RBC) [Entitic mass] 32.3 pg Normal 27-34 [facility] Comment on above: Performed By: #### C BRENNON PINR, 46666-2, BMP #### [facility] ([id number]) [address], [address] [place] [address] MCHC (RBC) [Mass/Vol] 34.6 g/dL Normal 32-36 [facility] Comment on above: Performed By: #### C BRENNON, PINR, 84355-7, BMP #### [facility] ([id number]) [address], [address] [place] [address] MCV (RBC) [Entitic vol] 94 fL Normal 80-100 [facility] Comment on above: Performed By: #### C BRENNON, PINR, 13350-1, BMP #### [facility] ([id number]) [address], [address] [place] [address] Monocytes (Bld) [#/Vol] 0.1 10*3/uL Normal 0-0.9 [facility] Comment on above: Performed By: #### C BRENNON, PINR, 60035-3, BMP #### [facility] ([id number]) [address], [address] [place] [address] Monocytes/100 WBC (Bld) 2.4 % Normal [facility] Comment on above: Performed By: #### Anastasiya WILLETT, PINR, 77433-2, BMP #### [facility] ([id number]) [address], [address] [place] [address] Neutrophils/100 WBC (Bld) 84.4 % Normal [facility] Comment on above: Performed By: #### C BRENNON, PINR, 20878-7, BMP #### [facility] ([id number]) [address], [address] [place] [address] Platelet mean volume (Bld) [Entitic vol] 9.1 fL Normal 7-12 [facility] Comment on above: Performed By: #### Anastasiya WILLETT, PINR, 08992-1, BMP #### [facility] ([id number]) [address], [address] [place] [address] Platelets (Bld) [#/Vol] 142 10*3/uL Low 150-450 [facility] Comment on above: Performed By: #### C BRENNON, PINR, 08221-3, BMP #### [facility] ([id number]) [address], [address] [place] [address] RBC COUNT 3.79 X10E12/L Low 3.80-5.20 [facility] Comment on above: Performed By: #### C BRENNON, PINR, 86868-4, BMP #### [facility] ([id number]) [address], [address] [place] [address] WBC (Bld) [#/Vol] 3.4 10*3/uL Low 4.0-11.0 [facility] Comment on above: Performed By: #### C BRENNON, PINR, 60485-8, BMP #### [facility] ([id number]) [address], [address] [address] Heparin unfractionated Chrom ogenic method Qn (PPP)on 01-25-2024 ANTI XA UFH 0.68 IU/mL Normal 0.30-0.70 [facility] Comment on above: Result Comment: Opti mal time for testing is 6 hrs post dosage This test is specific for monitoring patients on UFH, and is not recommended for use with other Anti-Xa medications. Performed By: #### C BCA, PINR, 63297-8, BMP #### [facility] ([id number]) [address], [address] [place] [address] ANTI CARDIOLIPIN AB IGG IGA IGMon 01-24-2024 MELBA IgA <2.0 Normal 0-19.9 [facility] Comment on above: Performed By: #### A CA, B2G #### [facility] ([id number]) [address], [address] [place] [address] MELBA IgG <1.6 Normal 0-19.9 [facility] Comment on above: Performed By: #### A Chucky HEATONG #### [facility] ([id number]) [address], [address] [place] [address] MELBA IgM <1.5 Normal 0-19.9 [facility] Comment on above: Performed By: #### A Doreen HEATON #### [facility] ([id number]) [address], [address] [place] [address] BASIC METABOLIC PANLon 01-23 Anion gap [Moles/Vol] 8 mmol/L Normal 5-15 [facility] Comment on above: Performed By: #### 3 274-8, CBCA, BMP #### [facility] ([id number]) [address], [address] [place] [address] Calcium [Mass/Vol] 8.0 mg/dL Low 8.5-10.5 [facility] Comment on above: Performed By: #### 3 274-8, CBCA, BMP #### [facility] ([id number]) [address], [address] [place] [address] Chloride [Moles/Vol] 106 mmol/L Normal 98-109 [facility] Comment on above: Performed By: #### 3 274-8, CBCA, BMP #### [facility] ([id number]) [address], [address] [place] [address] CO2 [Moles/Vol] 22 mmol/L Normal 22-32 [facility] Comment on above: Performed By: #### 3 274-8, CBCA, BMP #### [facility] ([id number]) [address], [address] [place] [address] Creatinine [Mass/Vol] 0.53 mg/dL Normal 0.40-1.00 [facility] Comment on above: Result Comment: METH OD TRACEABLE TO IDMS STANDARD Performed By: #### 3 274-8, CBCA, BMP #### [facility] ([id number]) [address], [address] [place] [address] eGFR (CKD-EPI) NON-RACE DEPENDENT >90 Normal >59 [facility] Comment on above: Result Comment: Reported eGFR is based on the CKD-EPI 2020 equation that does not use a race coefficient. Performed By: #### 3 274-8, CBCA, BMP #### [facility] ([id number]) [address], [facility] [address] [place] [address] Glucose [Mass/Vol] 76 mg/dL Normal 65-99 [facility] Comment on above: Performed By: #### 3 274-8, CBCA, BMP #### [facility] ([id number]) [address], [address] [place] [address] Potassium [Moles/Vol] 3.8 mmol/L Normal 3.5-5.0 [facility] Comment on above: Performed By: #### 3 274-8, CBCA, BMP #### [facility] ([id number]) [address], [address] [place] [address] Sodium [Moles/Vol] 136 mmol/L Normal 134-146 [facility] Comment on above: Performed By: #### 3 274-8, CBCA, BMP #### [facility] ([id number]) [address], [address] [place] [address] Urea nitrogen [Mass/Vol] 10 mg/dL Normal 5-23 [facility] Comment on above: Performed By: #### 3 274-8, CBCA, BMP #### [facility] ([id number]) [address], [address] [place] [address] BETA-2 GP1 AB PANELon 2023 BETA-2 GP1 IgA <2.0 Normal 0.0-19.9 [facility] Comment on above: Performed By: #### C BRENNON, PINR, 22796-5, BMP #### [facility] ([id number]) [address], [address] [place] [address] BETA-2 GP1 IgG <1.4 Normal 0.0-19.9 [facility] Comment on above: Performed By: #### C BRENNON PINR, 18482-4, BMP #### [facility] ([id number]) [address], [address] [place] [address] BETA-2 GP1 IgM <1.5 Normal 0.0-19.9 [facility] Comment on above: Performed By: #### C BRENNON, PINR, 21967-3, BMP #### [facility] ([id number]) [address], [address] [place] [address] CBC AND AUTO DIFFon 01-24-20 24 ABSOLUTE BASOPHIL 0.0 X10E9/L Normal 0.0-0.2 [facility] Comment on above: Performed By: #### 3 274-8, CBCA, BMP #### [facility] ([id number]) [address], [address] [place] [address] ABSOLUTE NEUTROPHIL 3.7 X10E9/L Normal 1.5-6.6 [facility] Comment on above: Performed By: #### 3 274-8, CBCA, BMP #### [facility] ([id number]) [address], [address] [place] [address] Basophils/100 WBC (Bld) 0.4 % Normal [facility] Comment on above: Performed By: #### 3 274-8, CBCA, BMP #### [facility] ([id number]) [address], [address] [place] [address] Eosinophils (Bld) [#/Vol] 0.2 10*3/uL Normal 0.0-0.4 [facility] Comment on above: Performed By: #### 3 274-8, CBCA, BMP #### [facility] ([id number]) [address], [address] [place] [address] Eosinophils/100 WBC (Bld) 2.9 % Normal [facility] Comment on above: Performed By: #### 3 274-8, CBCA, BMP #### [facility] ([id number]) [address], [facility] [address] [place] [address] Erythrocyte distribution width (RBC) [Ratio] 12.3 % Normal 11.5-15.0 [facility] Comment on above: Performed By: #### 3 274-8, CBCA, BMP #### [facility] ([id number]) [address], [facility] [address] [place] [address] Hematocrit (Bld) [Volume fraction] 36.4 % Normal 35-47 [facility] Comment on above: Performed By: #### 3 274-8, CBCA, BMP #### [facility] ([id number]) [address], [facility] [address] [place] [address] Hemoglobin (Bld) [Mass/Vol] 12.4 g/dL Normal 11.7-15.5 [facility] Comment on above: Performed By: #### 3 274-8, CBCA, BMP #### [facility] ([id number]) [address], [facility] [address] [place] [address] Lymphocytes (Bld) [#/Vol] 1.9 10*3/uL Normal 1.0-3.5 [facility] Comment on above: Performed By: #### 3 274-8, CBCA, BMP #### [facility] ([id number]) [address] [address] [place] [address] Lymphocytes/100 WBC (Bld) 29.7 % Normal [facility] Comment on above: Performed By: #### 3 274-8, CBCA, BMP #### [facility] ([id number]) [address], [address] [place] [address] MCH (RBC) [Entitic mass] 32.5 pg Normal 27-34 [facility] Comment on above: Performed By: #### 3 274-8, CBCA, BMP #### [facility] ([id number]) [address], [address] [place] [address] MCHC (RBC) [Mass/Vol] 34.2 g/dL Normal 32-36 [facility] Comment on above: Performed By: #### 3 274-8, CBCA, BMP #### [facility] ([id number]) [address], [facility] [address] [place] [address] MCV (RBC) [Entitic vol] 95 fL Normal 80-100 [facility] Comment on above: Performed By: #### 3 274-8, CBCA, BMP #### [facility] ([id number]) [address], [facility] [address] [place] [address] Monocytes (Bld) [#/Vol] 0.5 10*3/uL Normal 0-0.9 [facility] Comment on above: Performed By: #### 3 274-8, CBCA, BMP #### [facility] ([id number]) [address], [facility] [address] [place] [address] Monocytes/100 WBC (Bld) 8.2 % Normal [facility] Comment on above: Performed By: #### 3 274-8, CBCA, BMP #### [facility] ([id number]) [address], [facility] [address] [place] [address] Neutrophils/100 WBC (Bld) 58.8 % Normal [facility] Comment on above: Performed By: #### 3 274-8, CBCA, BMP #### [facility] ([id number]) [address], [address] [place] [address] Platelet mean volume (Bld) [Entitic vol] 8.7 fL Normal 7-12 [facility] Comment on above: Performed By: #### 3 274-8, CBCA, BMP #### [facility] ([id number]) [address], [address] [address] Platelets (Bld) [#/Vol] 128 10*3/uL Low 150-450 [facility] Comment on above: Performed By: #### 3 274-8, CBCA, BMP #### [facility] ([id number]) [address], [facility] [address] [place] [address] RBC COUNT 3.83 X10E12/L Normal 3.80-5.20 [facility] Comment on above: Performed By: #### 3 274-8, CBCA, BMP #### [facility] ([id number]) [address], [address] [address] WBC (Bld) [#/Vol] 6.4 10*3/uL Normal 4.0-11.0 [facility] Comment on above: Performed By: #### 3 274-8, CBCA, BMP #### [facility] ([id number]) [address], [facility] [address] [place] [address] Heparin unfractionated Chrom ogenic method Qn (PPP)on 01-24-2024 ANTI XA UFH 0.47 IU/mL Normal 0.30-0.70 [facility] Comment on above: Result Comment: Opti mal time for testing is 6 hrs post dosage This test is specific for monitoring patients on UFH, and is not recommended for use with other Anti-Xa medications. Performed By: #### 3 274-8, CBCA, BMP #### [facility] ([id number]) [address], [address] [address] dRVVT/dRVVT.excess phospholi pid Coag (PPP) [Ratio]on 01-24-2024 DILUTE VERONIKA'S [facility] VENOM Negative Normal [facility] Comment on above: Performed By: #### C BCA, PINR, 41783-8, BMP #### [facility] ([id number]) [address], [address] [place] [address] BASIC METABOLIC PANLon 01-22 Anion gap [Moles/Vol] 11 mmol/L Normal 5-15 [facility] Comment on above: Performed By: #### C BCA, PINR, 44474-3, BMP #### [facility] ([id number]) [address], [address] [place] [address] Calcium [Mass/Vol] 8.3 mg/dL Low 8.5-10.5 [facility] Comment on above: Performed By: #### C BCA, PINR, 06050-6, BMP #### [facility] ([id number]) [address], [address] [place] [address] Chloride [Moles/Vol] 106 mmol/L Normal 98-109 [facility] Comment on above: Performed By: #### C BCA, PINR, 04437-8, BMP #### [facility] ([id number]) [address], [address] [place] [address] CO2 [Moles/Vol] 21 mmol/L Low 22-32 [facility] Comment on above: Performed By: #### C BCA, PINR, 68512-1, BMP #### [facility] ([id number]) [address], [address] [place] [address] Creatinine [Mass/Vol] 0.65 mg/dL Normal 0.40-1.00 [facility] Comment on above: Result Comment: METH OD TRACEABLE TO IDMS STANDARD Performed By: #### C BCA, PINR, 42065-8, BMP #### [facility] ([id number]) [address], [address] [place] [address] eGFR (CKD-EPI) NON-RACE DEPENDENT >90 Normal >59 [facility] Comment on above: Result Comment: Reported eGFR is based on the CKD-EPI 2020 equation that does not use a race coefficient. Performed By: #### C BRENNON, PINR, 45970-1, BMP #### [facility] ([id number]) [address], [facility] [address] [place] [address] Glucose [Mass/Vol] 78 mg/dL Normal 65-99 [facility] Comment on above: Performed By: #### C BRENNON, PINR, 20393-2, BMP #### [facility] ([id number]) [address], [address] [address] Potassium [Moles/Vol] 3.9 mmol/L Normal 3.5-5.0 [facility] Comment on above: Performed By: #### C BRENNON, PINR, 98065-2, BMP #### [facility] ([id number]) [address], [address] [address] Sodium [Moles/Vol] 138 mmol/L Normal 134-146 [facility] Comment on above: Performed By: #### C BCA, PINR, 07559-1, BMP #### [facility] ([id number]) [address], [address] [address] Urea nitrogen [Mass/Vol] 11 mg/dL Normal 5-23 [facility] Comment on above: Performed By: #### C BCA, PINR, 57387-9, BMP #### [facility] ([id number]) [address] [address] CBC AND AUTO DIFFon 01-23-20 24 ABSOLUTE BASOPHIL 0.0 X10E9/L Normal 0.0-0.2 [facility] Comment on above: Performed By: #### C BCA, PINR, 64968-9, BMP #### [facility] ([id number]) [address], [address] [place] [address] ABSOLUTE NEUTROPHIL 6.6 X10E9/L Normal 1.5-6.6 [facility] Comment on above: Performed By: #### C BRENNON, PINR, 14153-7, BMP #### [facility] ([id number]) [address], [address] [place] [address] Basophils/100 WBC (Bld) 0.3 % Normal [facility] Comment on above: Performed By: #### C BRENNON, PINR, 03145-4, BMP #### [facility] ([id number]) [address], [address] [place] [address] Eosinophils (Bld) [#/Vol] 0.1 10*3/uL Normal 0.0-0.4 [facility] Comment on above: Performed By: #### C BRENNON, PINR, 28311-2, BMP #### [facility] ([id number]) [address], [address] [place] [address] Eosinophils/100 WBC (Bld) 0.8 % Normal [facility] Comment on above: Performed By: #### C BCA, PINR, 56392-0, BMP #### [facility] ([id number]) [address], [address] [place] [address] Erythrocyte distribution width (RBC) [Ratio] 12.4 % Normal 11.5-15.0 [facility] Comment on above: Performed By: #### C BRENNON, PINR, 11333-3, BMP #### [facility] ([id number]) [address], [address] [place] [address] Hematocrit (Bld) [Volume fraction] 39.4 % Normal 35-47 [facility] Comment on above: Performed By: #### C BRENNON, PINR, 35304-6, BMP #### [facility] ([id number]) [address], [address] [place] [address] Hemoglobin (Bld) [Mass/Vol] 13.8 g/dL Normal 11.7-15.5 [facility] Comment on above: Performed By: #### C BRENNON PINR, 15671-7, BMP #### [facility] ([id number]) [address], [facility] [address] [place] [address] Lymphocytes (Bld) [#/Vol] 1.9 10*3/uL Normal 1.0-3.5 [facility] Comment on above: Performed By: #### C BRENNON PINR, 71799-0, BMP #### [facility] ([id number]) [address], [facility] [address] [place] [address] Lymphocytes/100 WBC (Bld) 20.6 % Normal [facility] Comment on above: Performed By: #### Anastasiya WILLETT, PINR, 06322-4, BMP #### [facility] ([id number]) [address], [facility] [address] [place] [address] MCH (RBC) [Entitic mass] 32.7 pg Normal 27-34 [facility] Comment on above: Performed By: #### Anastasiya WILLTET, PINR, 88578-6, BMP #### [facility] ([id number]) [address], [address] [place] [address] MCHC (RBC) [Mass/Vol] 34.9 g/dL Normal 32-36 [facility] Comment on above: Performed By: #### C BRENNON, PINR, 48516-8, BMP #### [facility] ([id number]) [address], [facility] [address] [place] [address] MCV (RBC) [Entitic vol] 94 fL Normal 80-100 [facility] Comment on above: Performed By: #### C BRENNON, PINR, 62936-3, BMP #### [facility] ([id number]) [address], [address] [place] [address] Monocytes (Bld) [#/Vol] 0.6 10*3/uL Normal 0-0.9 [facility] Comment on above: Performed By: #### C BCA, PINR, 28901-6, BMP #### [facility] ([id number]) [address], [address] [place] [address] Monocytes/100 WBC (Bld) 6.0 % Normal [facility] Comment on above: Performed By: #### C BCA, PINR, 76971-6, BMP #### [facility] ([id number]) [address], [facility] [address] [place] [address] Neutrophils/100 WBC (Bld) 72.3 % Normal [facility] Comment on above: Performed By: #### C BCA, PINR, 56062-1, BMP #### [facility] ([id number]) [address], [address] [place] [address] Platelet mean volume (Bld) [Entitic vol] 8.4 fL Normal 7-12 [facility] Comment on above: Performed By: #### C BCA, PINR, 68157-2, BMP #### [facility] ([id number]) [address], [facility] [address] [place] [address] Platelets (Bld) [#/Vol] 156 10*3/uL Normal 150-450 [facility] Comment on above: Performed By: #### C BCA, PINR, 05632-4, BMP #### [facility] ([id number]) [address], [address] [place] [address] RBC COUNT 4.21 X10E12/L Normal 3.80-5.20 [facility] Comment on above: Performed By: #### C BCA, PINR, 29774-1, BMP #### [facility] ([id number]) [address] [place] [address] WBC (Bld) [#/Vol] 9.1 10*3/uL Normal 4.0-11.0 [facility] Comment on above: Performed By: #### C SADAF WILLETT, 60548-5, [facility] #### [facility] ([id number]) [address] [place] [address] CT CTV ABD AND PELVISon 01-13 CT [...] Hill MD on 01/23/2024 4:56 PM Normal [facility] Heparin unfractionated Chrom ogenic method Qn (PPP)on 01-23-2024 ANTI XA UFH 0.44 IU/mL Normal 0.30-0.70 [facility] Comment on above: Result Comment: Opti mal time for testing is 6 hrs post dosage This test is specific for monitoring patients on UFH, and is not recommended for use with other Anti-Xa medications. Performed By: #### 3 274-8 #### [facility] ([id number]) [address], [address] [place] [address] PROTIME AND INRon 01-23-2024 INR Coag (PPP) [Relative time] 1.1 {INR} Normal 0.8-1.1 [facility] Comment on above: Performed By: #### C BCA, PINR, 86701-0, BMP #### [facility] ([id number]) [address], [address] [place] [address] PT Coag (PPP) [Time] 12.3 s Normal 9.8-13.2 [facility] Comment on above: Performed By: #### C BCA, PINR, 67361-2, BMP #### [facility] ([id number]) [address], [address] [place] [address] aPTT Coag (PPP) [Time]on aPTT Coag (Bld) [Time] 51 s High 26-37 [facility] Comment on above: Performed By: #### C BCA, PINR, 26799-3, BMP #### [facility] ([id number]) [address], [address] [place] [address] AMYLASEon 04-03-2023 Amylase [Catalytic activity/Vol] 62 U/L Normal 25-115 [facility] Comment on above: Performed By: #### L IPA, BHARTI ####[facility] [address] [place], [place] [address]JxDr. Reece Garg CBC AUTO DIFFon 04-03-2023 BASO # 0.0 103/ul Normal 0.0-0.1 [facility] Comment on above: Performed By: #### C BC #### [facility] [address] [place], [place] [address] Dr. Reece Garg Basophils/100 WBC (Bld) 0.3 % Normal 0.2-2.0 [facility] Comment on above: Performed By: #### C BC #### [facility] [address] [place] [address] Dr. Reece Garg EO # 0.1 103/ul Normal 0.0-0.7 [facility] Comment on above: Performed By: #### C BC #### [facility] [address] [place] [address] Dr. Reece Garg Eosinophils/100 WBC (Bld) 0.6 % Critically low 0.9-7.0 [facility] Comment on above: Performed By: #### C BC #### [facility] [address] [place] [address] Dr. Reece Garg Erythrocyte distribution width (RBC) [Ratio] 11.9 % Normal 11.0-15.0 [facility] Comment on above: Performed By: #### C BC #### [facility] [address] [place] [address] Dr. Reece Garg Hematocrit (Bld) [Volume fraction] 37.7 % Normal 36.0-48.0 [facility] Comment on above: Performed By: #### C BC #### [facility] [address] [place] [address] Dr. Reece Garg Hemoglobin (Bld) [Mass/Vol] 12.9 g/dL Normal 12.0-16.0 [facility] Comment on above: Performed By: #### C BC #### [facility] [address] [place] [address] Dr. Reece Garg IG # 0.05 10e3/ul Critically high 0.00-0.[address] [facility] Comment on above: Performed By: #### C BC #### [facility] [address] [place] [address] Dr. Reece Garg IG % 0.4 % Normal 0.0-0.5 [facility] Comment on above: Performed By: #### C BC #### [facility] [address] [place] [address] Dr. Reece Garg LYMPH # 2.3 103/ul Normal 1.2-3.8 [facility] Comment on above: Performed By: #### C BC #### [facility] [address] [place] [address] Dr. Reece Garg Lymphocytes/100 WBC (Bld) 20.8 % Normal 20.5-60.0 [facility] Comment on above: Performed By: #### C BC #### [facility] [address] [place] [address] Dr. Reece Garg MANUAL DIFF REQ NO Normal [facility] Comment on above: Performed By: #### C BC #### [facility] [address] [place] [address] Dr. Reece Garg MCH (RBC) [Entitic mass] 32.3 pg Normal 26.7-34.0 [facility] Comment on above: Performed By: #### C BC #### [facility] [address] [place] [address] Dr. Reece Garg MCHC (RBC) [Mass/Vol] 34.2 g/dL Normal 29.9-35.2 [facility] Comment on above: Performed By: #### C BC #### [facility] [address] [place] [address] Dr. Reece Garg MCV (RBC) [Entitic vol] 94.3 fL Normal 81.0-99.0 [facility] Comment on above: Performed By: #### C BC #### [facility] [address] [place] [address] Dr. Reece Garg MONO # 0.6 103/ul Normal 0.3-0.8 [facility] Comment on above: Performed By: #### C BC #### [facility] [address] [place] [address] Dr. Reece Garg Monocytes/100 WBC (Bld) 5.3 % Normal 1.7-12.0 [facility] Comment on above: Performed By: #### C BC #### [facility] [address] [place] [address] Dr. Reece Garg NEUT # 8.1 103/ul Critically high 1.4-6.5 [facility] Comment on above: Performed By: #### C BC #### [facility] [address] [place] [address] [address] Reece Garg Neutrophils/100 WBC (Bld) 72.6 % Normal 43.0-75.0 [facility] Comment on above: Performed By: #### C BC #### [facility] [address] [place] [address] Dr. Reece Garg Platelet mean volume (Bld) [Entitic vol] 10.2 fL Normal 9.5-13.5 [facility] Comment on above: Performed By: #### C BC #### [facility] [address] [place] [address] [address] Reece Garg PLT 163 103/ul Normal 150-450 [facility] Comment on above: Performed By: #### C BC #### [facility] [address] [place] [address] Dr. Reece Garg RBC 4.00 106/ul Critically low 4.20-5.40 [facility] Comment on above: Performed By: #### C BC #### [facility] [address] [place] [address] Dr. Reece Garg WBC 11.1 103/ul Critically high 4.0-11.0 [facility] Comment on above: Performed By: #### C BC #### [facility] [address] [place] [address] Dr. Reece Garg BASO # 0.0 103/ul Normal 0.0-0.1 [facility] Comment on above: Performed By: #### C BC #### [facility] [address] [place] [address] Dr. Reece Garg Basophils/100 WBC (Bld) 0.3 % Normal 0.2-2.0 [facility] Comment on above: Performed By: #### C BC #### [facility] [address] [place] [address] Dr. Reece Garg EO # 0.1 103/ul Normal 0.0-0.7 [facility] Comment on above: Performed By: #### C BC #### [facility] [address] [place] [address] Dr. Reece Garg Eosinophils/100 WBC (Bld) 0.7 % Critically low 0.9-7.0 [facility] Comment on above: Performed By: #### C BC #### [facility] [address] [place] [address] Dr. Reece Garg Erythrocyte distribution width (RBC) [Ratio] 12.0 % Normal 11.0-15.0 [facility] Comment on above: Performed By: #### C BC #### [facility] [address] [place] [address] Dr. Reece Garg Hematocrit (Bld) [Volume fraction] 41.4 % Normal 36.0-48.0 [facility] Comment on above: Performed By: #### C BC #### [facility] [address] [place] [address] Dr. Reece Garg Hemoglobin (Bld) [Mass/Vol] 14.3 g/dL Normal 12.0-16.0 [facility] Comment on above: Performed By: #### C BC #### [facility] [address] [place] [address] Dr. Reece Garg IG # 0.05 10e3/ul Critically high 0.00-0.[address] [facility] Comment on above: Performed By: #### C BC #### [facility] [address] [place] [address] Dr. Reece Garg IG % 0.3 % Normal 0.0-0.5 [facility] Comment on above: Performed By: #### C BC #### [facility] [address] [place] [address] Dr. Reece Garg LYMPH # 1.6 103/ul Normal 1.2-3.8 [facility] Comment on above: Performed By: #### C BC #### [facility] [address] [place] [address] Dr. Reece Garg Lymphocytes/100 WBC (Bld) 10.6 % Critically low 20.5-60.0 [facility] Comment on above: Performed By: #### C BC #### [facility] [address] [address] [address] Reece Garg MANUAL DIFF REQ NO Normal The [facility] Comment on above: Performed By: #### C BC #### [facility] [address] [address] [address] Reece Garg MCH (RBC) [Entitic mass] 32.1 pg Normal 26.7-34.0 [facility] Comment on above: Performed By: #### C BC #### [facility] [address] [address] [address] Reece Garg MCHC (RBC) [Mass/Vol] 34.5 g/dL Normal 29.9-35.2 [facility] Comment on above: Performed By: #### C BC #### [facility] [address] [place] [address] Dr. Reece Garg MCV (RBC) [Entitic vol] 93.0 fL Normal 81.0-99.0 [facility] Comment on above: Performed By: #### C BC #### [facility] [address] [place] [address] Dr. Reece Garg MONO # 0.7 103/ul Normal 0.3-0.8 [facility] Comment on above: Performed By: #### C BC #### [facility] [address] [place] [address] Dr. Reece Garg Monocytes/100 WBC (Bld) 4.7 % Normal 1.7-12.0 [facility] Comment on above: Performed By: #### C BC #### [facility] [address] [place] [address] Dr. Reece Garg NEUT # 12.9 103/ul Critically high 1.4-6.5 The [facility] Comment on above: Performed By: #### C BC #### [facility] [address] [place] [address] Dr. Reece Garg Neutrophils/100 WBC (Bld) 83.4 % Critically high 43.0-75.0 [facility] Comment on above: Performed By: #### C BC #### [facility] [address] [place] [address] Dr. Reece Garg Platelet mean volume (Bld) [Entitic vol] 10.4 fL Normal 9.5-13.5 [facility] Comment on above: Performed By: #### C BC #### [facility] [address] [place] [address] Dr. Reece Garg PLT 194 103/ul Normal 150-450 [facility] Comment on above: Performed By: #### C BC #### [facility] [address] [place] [address] Dr. Reece Garg RBC 4.45 106/ul Normal 4.20-5.40 [facility] Comment on above: Performed By: #### C BC #### [facility] [address] [place] [address] Dr. Reece Garg WBC 15.4 103/ul Critically high 4.0-11.0 [facility] Comment on above: Performed By: #### C BC #### [facility] [address] [place] [address] ABD/PELV W CONon [...] ELIZALDE Date: 2023-04-03 01:36 Normal The [facility] ER URINE PROFILEon 3 Bilirubin Ql (U) Negative Normal NEGATIVE The [facility] Comment on above: Performed By: #### P REGU, ERUR #### [facility] [address] [place] [address] Dr. Reece Garg Clarity (U) CLEAR Normal CLEAR The [facility] Comment on above: Performed By: #### P REGU, ERUR #### [facility] [address] [address] [address] Reece Garg Color (U) LT. YELLOW Normal YELLOW [facility] Comment on above: Performed By: #### P REGU, ERUR #### [facility] [address] [address] [address] Reece Garg ERUAHD A micrscopic examination will be performed if indicated. Normal The [facility] Comment on above: Performed By: #### P REGU, ERUR #### [facility] [address] [address] [address] Reece Garg Glucose Ql (U) Negative Normal NEGATIVE The [facility] Comment on above: Performed By: #### P REGU, ERUR #### [facility] [address] [address] [address] Reece Garg Hemoglobin Ql (U) Negative Normal NEGATIVE The [facility] Comment on above: Performed By: #### P REGU, ERUR #### [facility] [address] [place] [address] Dr. Reece Garg Ketones Ql (U) 15 mg/dl Abnormal NEGATIVE The [facility] Comment on above: Performed By: #### P REGU, ERUR #### [facility] [address] [place] [address] Dr. Reece Garg LEUKOCYTES Negative Normal NEGATIVE [facility] Comment on above: Performed By: #### P REGU, ERUR #### [facility] [address] [place] [address] Dr. Reece Garg Nitrite Ql (U) Negative Normal NEGATIVE [facility] Comment on above: Performed By: #### P REGU, ERUR #### [facility] [address] [place] [address] Dr. Reece Garg pH (U) 5.5 [pH] Normal 5-9 [facility] Comment on above: Performed By: #### P REGU, ERUR #### [facility] [address] [place] [address] Dr. Reece Garg SPEC GRAVITY <=1.005 Abnormal 1.005-<=1.025 [facility] Comment on above: Performed By: #### P REGU, ERUR #### [facility] [address] [place] [address] Dr. Reece Garg UA PROTEIN Negative Normal NEGATIVE/ TRACE The [facility] Comment on above: Performed By: #### P REGU, ERUR #### [facility] [address] [place] [address] Dr. Reece Garg UR MICRO IND NOT INDICATED Normal The [facility] Comment on above: Performed By: #### P REGU, ERUR #### [facility] [address] [place] [address] Dr. Reece Garg Urobilinogen Qn (U) 0.2 {Dariel'U}/dL Normal 0.2 - 1. 0 [facility] Comment on above: Performed By: #### P REGU, ERUR #### [facility] [address] [place] [address] Dr. Reece Garg LIPASEon 04-03-2023 Lipase [Catalytic activity/Vol] 62.0 U/L Critically low 73.0-393.0 [facility] Comment on above: Performed By: #### L BHARTI OVALLES ####[facility] [address] [address]Dr. Reece Garg MONOon 04-03-2023 Monocytes (Bld) [#/Vol] Negative Normal NEGATIVE [facility] Comment on above: Performed By: #### M JOSE DANIEL #### [facility] [address] [address] [address] Reece Garg URon 04-03-2023 , QUAL Negative Normal NEGATIVE [facility] Comment on above: Performed By: #### P JAYA HERNANDEZ #### [facility] [address] [address] [address] Reece Garg PROF 14(COMP METB)on 023 Albumin [Mass/Vol] 3.3 g/dL Critically low 3.4-5.0 [facility] Comment on above: Performed By: #### C MP #### [facility] [address] [address] [address] Reece Garg Albumin/Globulin [Mass ratio] 1.0 {ratio} Normal [facility] Comment on above: Performed By: #### C MP #### [facility] [address] [address] [address] Reece Garg ALP [Catalytic activity/Vol] 38 U/L Critically low 46-116 [facility] Comment on above: Performed By: #### C MP #### [facility] [address] [address] [address] Reece Garg ALT [Catalytic activity/Vol] 16 U/L Normal 14-59 [facility] Comment on above: Performed By: #### C MP #### [facility] [address] [place] [address] Dr. Reece Garg Anion gap [Moles/Vol] 10.7 mmol/L Normal [facility] Comment on above: Performed By: #### C MP #### [facility] [address] [address] [address] Reece Garg AST [Catalytic activity/Vol] 10 U/L Critically low 15-37 [facility] Comment on above: Performed By: #### C MP #### [facility] [address] [place] [address] Dr. Reece Garg Bilirubin [Mass/Vol] 1.0 mg/dL Normal 0.2-1.0 [facility] Comment on above: Performed By: #### C MP #### [facility] [address] [place] [address] Dr. Reece Garg Calcium [Mass/Vol] 8.2 mg/dL Critically low 8.5-10.1 Th e [facility] Comment on above: Performed By: #### C MP #### [facility] [address] [place] [address] Dr. Reece Garg Chloride [Moles/Vol] 106 mmol/L Normal 98-107 [facility] Comment on above: Performed By: #### C MP #### [facility] [address] [place] [address] Dr. Reece Garg CO2 [Moles/Vol] 27.0 mmol/L Normal 21.0-32.0 [facility] Comment on above: Performed By: #### C MP #### [facility] [address] [place] [address] Dr. Reece Garg Creatinine [Mass/Vol] 0.77 mg/dL Normal 0.55-1.02 [facility] Comment on above: Performed By: #### C MP #### [facility] [address] [place] [address] Dr. Reece Garg EGFR-AF SPANISH >60 Normal >=60 [facility] Comment on above: Performed By: #### C MP #### [facility] [address] [place] [address] Dr. Reece Garg EGFR-NON AF SPANISH >60 Normal >=60 [facility] Comment on above: Performed By: #### C MP #### [facility] [address] [place] [address] Dr. Reece Garg Globulin (S) [Mass/Vol] 3.3 g/dL Normal [facility] Comment on above: Performed By: #### C MP #### [facility] [address] [address] [address] Reece Garg Glucose [Mass/Vol] 102 mg/dL Normal 74-106 [facility] Comment on above: Performed By: #### C MP #### [facility] [address] [address] [address] Reece Garg Potassium [Moles/Vol] 3.7 mmol/L Normal 3.5-5.1 [facility] Comment on above: Performed By: #### C MP #### [facility] [address] [address] [address] Reece Garg Protein [Mass/Vol] 6.6 g/dL Normal 6.4-8.2 The [facility] Comment on above: Performed By: #### C MP #### [facility] [address] [address] [address] Reece Garg Sodium [Moles/Vol] 140 mmol/L Normal 136-145 [facility] Comment on above: Performed By: #### C MP #### [facility] [address] [address] [address] Reece Garg Urea nitrogen [Mass/Vol] 8.0 mg/dL Normal 7.0-18.0 [facility] Comment on above: Performed By: #### C MP #### [facility] [address] [address] [address] Reece Garg Urea nitrogen/Creatinine [Mass ratio] 10.4 mg/mg Normal [facility] Comment on above: Performed By: #### C MP #### [facility] [address] [address] [address] Reece Garg PROTIMEon 04-03-2023 INR Coag (PPP) [Relative time] 1.06 {INR} Normal [facility] Comment on above: Performed By: #### P TT, PT #### [facility] [address] [address] [address] Reece Garg INR GUIDELINES SEE BELOW Normal [facility] Comment on above: Result Comment: JJ RED INR: 2.0 - 3.0 CONDITIONS NOT LISTED BELOW 2.5 - 3.5 FOR PROSTHETIC HEART VALVE REPLACEMENT 2.5 - 3.5 RECURRENT THROMBOSIS Performed By: #### P TT, PT #### [facility] [address] [address] [address] Reece Garg PT Coag (PPP) [Time] 11.2 s Normal 9.0-11.6 [facility] Comment on above: Performed By: #### P TT, PT #### [facility] [address] [address] [address] Reece Garg PTTon 04-03-2023 aPTT Coag (Bld) [Time] 28.1 s Normal 22.3-36.2 [facility] Comment on above: Performed By: #### P TT, PT #### [facility] [address] [address] [address] Reece Garg PAP ACOG PANEL 2: 30 to 65on 07-28-2022 . . Normal [facility] Comment on above: Result Comment: Perf ormed at: WB Performed By: #### [id number] ####[facility] [address] [address]Dr. Reece Garg Age Gdln ACOG Testing 30-65 Normal [facility] Comment on above: Performed By: #### [id number] ####[facility] [address] [address]Dr. Reece Garg DIAGNOSIS: Comment Normal [facility] Comment on above: Result Comment: NEGA TIVE FOR INTRAEPITHELIAL LESION OR MALIGNANCY. Performed at: WB Performed By: #### [id number] ####[facility] [address] [address]Dr. Reece Garg HPV Aptima Negative Normal Negative [facility] Comment on above: Result Comment: This nucleic acid amplification test detects fourteen high-risk HPV types (16,18,31,33,35,39,45,51,52,56,58,59,66,68) without differentiation. Performed at: =G Performed By: #### [id number] ####[facility] [address] [address]Dr. Reece Garg Methodology: Comment Normal [facility] Comment on above: Result Comment: This liquid based ThinPrep(R) pap test was screened with the use of an image guided system. Performed at: WB Performed By: #### [id number] ####[facility] [address] [place], [place] [address]DrHardik Garg Note: Comment Normal [facility] Comment on above: Result Comment: The Pap smear is a screening test designed to aid in the detection of premalignant and malignant conditions of the uterine cervix. It is not a diagnostic procedure and should not be used as the sole means of detecting cervical cancer. Both false-positive and false-negative reports do occur. . Performed at: WB Performed By: #### [id number] ####[facility] [address] [place], [place] [address]DrHardik Garg Performed by: Comment Normal [facility] Comment on above: Result Comment: Alexandra Cortez, Aircraft Instrument Mechanic (ASCP) Performed at: WB Performed By: #### [id number] ####[facility] [address] [place], [place] [address]DrHardik Garg Specimen adequacy: Comment Normal [facility] Comment on above: Result Comment: Sati sfactory for evaluation. No endocervical component is identified. Performed at: WB Performed By: #### [id number] ####[facility] [address] [place], [place] [address]Dr. Reece Garg VAGINITIS/VAGINOSIS DNA PROB Erwin 07-24-2022 Micheal species Negative Normal Negative [facility] Comment on above: Performed By: #### V AGINT #### [facility] [address] [place] [address] Dr. Reece Garg Gardnerella vaginalis Positive Abnormal Negative [facility] Comment on above: Performed By: #### V AGINT #### [facility] [address] [place] [address] Dr. Reece Garg Trichomonas vaginalis Negative Normal Negative [facility] Comment on above: Performed By: #### V AGINT #### [facility] [address] [address] [address] Reece Garg Vital Signs Date Time Vital Sign Value Performing Clinician Facility 08-06-2025 10:08-0400 Body height 157.5 cm Andre Hudson DO Work Phone: [facility] 08-06-2025 10:08-0400 Body mass index (BMI) [Ratio] 24.69 kg/m2 Andre Hudson DO Work Phone: [facility] 08-06-2025 10:08-0400 Body weight 61.24 kg Andre Hudson DO Work Phone: [facility] 08-06-2025 10:08-0400 Diastolic blood pressure 70 mm[Hg] Andre Hudson DO Work Phone: [facility] 08-06-2025 10:08-0400 Systolic blood pressure 118 mm[Hg] Andre Hudson DO Work Phone: [facility] 07-23-2025 09:40-0400 Body height 157.48 cm Usman Rodrigez MD Work Phone: [facility] 07-23-2025 09:40-0400 Body mass index (BMI) [Ratio] 24.7 kg/m2 Usman Rodrigez MD Work Phone: [facility] 07-23-2025 09:40-0400 Body weight 61.23 kg Usman Rodrigez MD Work Phone: [facility] 05-31-2025 08:35-0400 Body mass index (BMI) [Ratio] 24.14 kg/m2 Jani Bridges MD Work Phone: [facility] 05-31-2025 08:35-0400 Body weight 59.88 kg Jnai Bridges MD Work Phone: [facility] 05-31-2025 08:35-0400 Diastolic blood pressure 68 mm[Hg] Jani Bridges MD Work Phone: [facility] 05-31-2025 08:35-0400 Heart rate 62 /min Jani Bridges MD Work Phone: [facility] 05-31-2025 08:35-0400 Systolic blood pressure 102 mm[Hg] Jani Bridges MD Work Phone: [facility] 04-03-2025 09:37-0400 Body mass index (BMI) [Ratio] 24.51 kg/m2 Andre Hudson DO Work Phone: [facility] 04-03-2025 09:37-0400 Body weight 60.78 kg Andre Hudson DO Work Phone: [facility] 04-03-2025 09:37-0400 Diastolic blood pressure 70 mm[Hg] Andre Hudson DO Work Phone: [facility] 04-03-2025 09:37-0400 Systolic blood pressure 114 mm[Hg] Andre Hudson DO Work Phone: [facility] 12-26-2024 10:07-0500 Blood Pressure Location SYDNEE ANTONIO [facility] 12-26-2024 10:07-0500 Diastolic blood pressure 90 mm[Hg] SYDNEE ANTONIO [facility] 12-26-2024 10:07-0500 Heart rate 70 /min SYDNEE ANTONIO [facility] 12-26-2024 10:07-0500 Systolic blood pressure 130 mm[Hg] SYDNEE ANTONIO [facility] 08-31-2024 10:09-0400 Body mass index (BMI) [Ratio] 24.11 kg/m2 Andre Hudson DO Work Phone: [facility] 08-31-2024 10:09-0400 Body weight 59.78 kg Andre Hudson DO Work Phone: [facility] 08-31-2024 10:09-0400 Diastolic blood pressure 70 mm[Hg] Andre Hudson DO Work Phone: [facility] 08-31-2024 10:09-0400 Systolic blood pressure 110 mm[Hg] Andre Hudson DO Work Phone: [facility] 08-08-2024 11:15-0400 Blood Pressure Location SYDNEE OTBARRY [facility] 08-08-2024 11:15-0400 Diastolic blood pressure 63 mm[Hg] SYDNEE ANTONIO [facility] 08-08-2024 11:15-0400 Heart rate 61 /min SYDNEE ANTONIO [facility] 08-08-2024 11:15-0400 Respiratory rate 19 /min SYDNEE ANTONIO [facility] 08-08-2024 11:15-0400 Systolic blood pressure 96 mm[Hg] SYDNEE ANTONIO [facility] 07-31-2024 09:53-0400 Body height 157.5 cm Andre Hudson DO Work Phone: [facility] 07-31-2024 09:53-0400 Body mass index (BMI) [Ratio] 23.96 kg/m2 Andre Hudson DO Work Phone: [facility] 07-31-2024 09:53-0400 Body weight 59.42 kg Andre Hudson DO Work Phone: [facility] 07-31-2024 09:53-0400 Diastolic blood pressure 68 mm[Hg] Andre Hudson DO Work Phone: [facility] 07-31-2024 09:53-0400 Systolic blood pressure 102 mm[Hg] Andre Hudson DO Work Phone: [facility] 07-10-2024 16:25-0400 Body mass index (BMI) [Ratio] 24.29 kg/m2 Bharti RIBEIRO Work Phone: [facility] 07-10-2024 16:25-0400 Body weight 60.24 kg Bharti RIBEIRO Work Phone: [facility] 05-25-2024 08:43-0400 Body height 157.5 cm Jani Bridges MD Work Phone: [facility] 05-25-2024 08:43-0400 Body mass index (BMI) [Ratio] 23.78 kg/m2 Jani Bridges MD Work Phone: [facility] 05-25-2024 08:43-0400 Body weight 58.97 kg Jani Bridges MD Work Phone: [facility] 05-25-2024 08:43-0400 Diastolic blood pressure 68 mm[Hg] Jani Bridges MD Work Phone: [facility] 05-25-2024 08:43-0400 Heart rate 66 /min Jani Bridges MD Work Phone: [facility] 05-25-2024 08:43-0400 SaO2% (BldA) [Mass fraction] 98 % Jani Bridges MD Work Phone: [facility] 05-25-2024 08:43-0400 Systolic blood pressure 97 mm[Hg] Jani Bridges MD Work Phone: [facility] Encounters Encounter Date Encounter Type Care Provider Facility Start: 08-06-2025 End: 08-06-2025 Bamboo flowsheet Andre Hudson DO Work Phone: [facility] Start: 08-06-2025 End: 08-06-2025 Bamboo flowsheet Andre Hudson DO Work Phone: [facility] Start: 08-06-2025 End: 08-06-2025 Patient encounter procedure Andre Treviño DO Work Phone: [facility] Start: 08-06-2025 End: 08-06-2025 Periodic preventive med est patient 18-39 yrs Andre Treviño DO Work Phone: [facility] Comment on above: Pelvic pain in femal e (Primary Dx); Well woman exam with routine gynecological exam; H/O: hysterectomy Start: 07-26-2025 End: 07-26-2025 ambulatory Usman Rodrigez MD Work Phone: [facility] Work Phone: Start: 07-26-2025 End: 07-26-2025 Patient encounter procedure Lul Pearson MD -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); Acute deep vein thrombosis (DVT) of iliac vein of left lower extremity ([facility]) Start: 05-31-2025 End: 05-31-2025 ambulatory JANI BRIDGES [facility] Start: 05-30-2025 ambulatory USMAN Byrd Vero [facility] Start: 05-23-2025 End: 05-23-2025 Clinisync [...] Start: 04-04-2025 End: 04-04-2025 ambulatory Julien HOYOS Facility:[facility] Start: 04-04-2025 End: 04-04-2025 Patient encounter procedure Julien Smalls HOYOS [facility] Start: 04-03-2025 End: 04-03-2025 Bamboo flowsheet Andre [...] Usman Rodrigez MD Work Phone: [facility] Work Phone: Start: 02-19-2025 End: 02-19-2025 Discharged Recurring Usman Rodrigez MD Work Phone: [facility] Start: 12-26-2024 End: 12-26-2024 ambulatory Julien Slim ROMAIN Facility: [facility] Start: 12-26-2024 End: 12-26-2024 Patient encounter procedure SYDNEE Masha ALVAREZ [facility] Start: 10-03-2024 End: 10-03-2024 ambulatory Julien R HOYOS Facility:[facility] Start: 10-03-2024 End: 10-03-2024 Patient encounter procedure Julien HOYOS [facility] Start: 09-20-2024 End: 09-20-2024 Bamboo flowsheet Theresa Perez [facility] Work Phone: [facility] Start: 09-20-2024 End: 09-20-2024 Bamboo flowsheet Theresa Perez [facility] Work Phone: [facility] Start: 09-20-2024 End: 09-20-2024 Social Work Theresa Perez [facility] Work Phone: [facility] Comment on above: IRVING (generalized anx iety disorder) ([facility]/HCC); Adjustment disorder with depressed mood (CMS/HCC) Start: 08-31-2024 End: 08-31-2024 Bamboo flowsheet Andre Hduson DO Work Phone: [facility] Start: 08-31-2024 End: 08-31-2024 Bamboo flowsheet Andre Hudson DO Work Phone: [facility] Start: 08-31-2024 End: 08-31-2024 Office outpatient visit 15 minutes Andre Hudson DO Work Phone: [facility] Comment on above: Vaginal discharge; STD exposure Start: 08-31-2024 End: 08-31-2024 ambulatory ANDRE HUDSON Not Available Start: 08-10-2024 End: 09-26-2024 Bamboo flowsheet Theresa Juan HughesPerez [facility] Work Phone: [facility] Start: 08-10-2024 End: 08-10-2024 Bamboo flowsheet Theresa Perez [facility] Work Phone: [facility] Start: 08-10-2024 End: 08-10-2024 Social Work Theresa Perez [facility] Work Phone: [facility] Comment on above: IRVING (generalized anx iety disorder) ([facility]) Start: 08-08-2024 End: 08-08-2024 ambulatory SYDNEE ALVAREZ Facility:[facility] Start: 08-08-2024 End: 08-08-2024 Patient encounter procedure SYDNEE ALVAREZ [facility] Start: 08-03-2024 ambulatory Julienalejandra HOYOS Facility :[facility] Start: 08-03-2024 End: 08-03-2024 ambulatory ANDRE [...] 07-18-2024 End: 07-18-2024 Bamboo flowsheet Theresa Perez [facility] Work Phone: [facility] Start: 07-18-2024 End: 07-18-2024 Bamboo flowsheet Theresa Perez [facility] Work Phone: [facility] Start: 07-18-2024 End: 07-18-2024 Social Work Theresa Perez [facility] Work Phone: [facility] Comment on above: IRVING (generalized anx iety disorder) ([facility]) Start: 07-10-2024 End: 07-10-2024 Office outpatient visit 15 minutes Bharti RIBEIRO Work Phone: [facility] Comment on above: UTI symptoms; Vaginal discharge; STD exposure Start: 07-10-2024 End: 07-10-2024 ambulatory BHARTI FRIED Not Available Start: 07-10-2024 End: 07-12-2024 External Result Encounter Bharti RIBEIRO Work Phone: [facility] External Department Unsolicited Start: 07-10-2024 End: 07-12-2024 External Result Encounter Bharti RIBEIRO Work Phone: [facility] External Department Unsolicited Start: 06-29-2024 End: 06-29-2024 Social Work Theresa Perez [facility] Work Phone: [facility] Comment on above: IRVING (generalized anx iety disorder) ([facility]) Start: 05-25-2024 End: 05-25-2024 Office outpatient visit 25 minutes Jani Bridges MD Work Phone: [facility] Comment on above: 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); Acute deep vein thrombosis (DVT) of iliac vein of left lower extremity ([facility]) Start: 05-25-2024 End: 05-25-2024 [facility] Start: 04-27-2024 End: 04-27-2024 Office outpatient visit 25 minutes Jani Bridges MD Work Phone: [facility] Comment on above: 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); 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 ([facility]-HCC) Start: 04-27-2024 ambulatory [facility] Start: 04-03-2024 End: 04-11-2024 Orders Only Not In System Ref Prov [facility] Start: 02-10-2024 End: 02-10-2024 Office outpatient visit 15 minutes Jani Bridges MD Work Phone: [facility] Comment on above: Acute deep vein thro mbosis (DVT) of iliac vein of left lower extremity ([facility]-H[facility]) (Primary Dx); May-Thurner syndrome Start: 02-10-2024 ambulatory [facility] Start: 01-26-2024 End: 01-26-2024 [facility] Start: 01-24-2024 End: 01-26-2024 Evaluation and management of inpatient [facility] Start: 01-24-2024 End: 01-24-2024 ambulatory DL BUCK [facility] Start: 01-24-2024 ambulatory [facility] Start: 01-23-2024 End: 01-26-2024 Evaluation and management of inpatient STEPHEN STOKES [facility] Start: 01-23-2024 End: 01-25-2024 Evaluation and management of inpatient [facility] Start: 04-03-2023 End: 04-03-[address] USMAN RODRIGEZ . Facility:[facility] Start: 07-26-2022 Encounter for gynecological examination (general) (routine) without abnormal findings DR EARLENE MCDONOUGH . [facility] Start: 07-22-2022 End: 07-22-[address] EARLENE [...] MD Work Phone: H/O: hysterectomy SYDNEE VELAZQUEZ H/O: hysterectomy H/O: hysterectomy Andre Hudson DO Work Phone: History of appendectomy ADITI ALVAREZ Laparoscope, device (physical object) SYDNEE ALVAREZ Comment on above: pelvic Plan of Treatment Date Care Activity Detail Author Start: 08-24-2028 Screening for malign ant neoplasm of cervix [facility] Start: 07-31-2027 Screening for malign ant neoplasm of cervix Pap Smear [facility] Start: 08-24-2026 Screening for malign ant neoplasm of cervix Pap Smear [facility] Start: 08-12-2026 End: 08-12-2026 Patient encounter procedure 08/12/2026 11:00 AM EDT Procedure Visit [facility] [address] [place] [address] Andre Treviño DO [address] [place] [address] [facility] Start: 06-06-2026 End: 06-06-2026 Patient encounter procedure 06/06/2026 8:30 AM EDT Office Visit [facility] [place] [address] [place] [address] Jani Bridges MD [address], [address] [place] [address] [facility] Start: 05-31-2026 Adult BMI Screening Adult BMI Screen ing [facility] Start: 05-31-2026 Tobacco Screening Tobacco Screening [facility] Start: 05-27-2026 End: 05-27-2026 Patient encounter procedure 05/27/2026 8:30 AM EDT Appointment [facility] [address] [place] [phone] Jani Bridges MD [address], [facility] [address] [place] [address] [facility] Start: 08-06-2025 End: 08-06-2025 Patient encounter procedure [facility] Comment on above: Arrived Start: 07-16-2025 Influenza vaccination [facility] Start: 05-31-2025 End: 05-31-2026 US.doppler Thoracic and Abdominal Aorta and Inferior Vena Cava and Illiac vessels Vas IVC/iliac duplex complete Vascular Ultrasound Routine May-Thurner syndrome Acute deep vein thrombosis (DVT) of iliac vein of left lower extremity ([facility]) Expected: 05/31/2025, Expires: 05/31/2026 Tyrese Work Phone: Comment on above: Expected: 05/31/2025 , Expires: 05/31/2026 Start: 05-25-2025 Adult BMI Screening Adult BMI Screen ing [facility] Start: 05-25-2025 Tobacco Screening Tobacco Screening [facility] Start: 05-24-2025 End: 05-24-2025 Patient encounter procedure 05/24/2025 8:30 AM EDT [facility] [address] [facility] [place] [address] Jani Bridges MD [address] [facility] [place] [address] [facility] Vascular Surgery Start: 04-17-2025 End: 04-17-2025 Patient encounter procedure 04/17/2025 8:00 AM EDT Office Visit [facility] [address] [facility] [place] [phone] Andre Treviño, DO [address] [facility] [address] [place], [place] [id number] [facility] Start: 04-03-2025 End: 04-03-2025 Patient encounter procedure 04/03/2025 9:20 AM EDT Office Visit [facility] [address] [facility] [place] [phone] Andre Treviño, DO [address] [place], [place] [id number] Arrived [facility] Comment on above: Arrived Start: 02-13-2025 Adult BMI Screening Adult BMI Screen ing [facility] Start: 02-13-2025 Tobacco Screening Tobacco Screening [facility] Start: 01-24-2025 Adult BMI Screening Adult BMI Screen ing [facility] Start: 01-23-2025 Tobacco Screening Tobacco Screening [facility] Start: 01-22-2025 Depression Screening Depression Scre ening [facility] Start: 10-17-2024 End: 10-17-2024 Social Work 10/17/2024 11:00 AM EST Social Work [facility] [address] [place] [address] Theresa Perez, [facility] [address] [place] [address] [facility] Start: 09-20-2024 End: 09-20-2024 Social Work 09/20/2024 8:00 AM EST Social Work [facility] [address] [place] [address] Theresa Perez, [facility] [address] [place] [address] Arrived [facility] Comment on above: Arrived Start: 09-06-2024 End: 09-06-2024 Social Work 09/06/2024 2:00 PM EDT Social Work [facility] [address] [place] [address] Theresa Perez, [facility] [address] [place] [address] [facility] Start: 08-31-2024 End: 08-31-2024 Patient encounter procedure [facility] Comment on above: Arrived Start: 08-30-2024 End: 08-30-2024 Social Work 08/30/2024 9:00 AM EDT Social Work [facility] [address] [place] [address] Theresa Perez, [facility] [address] [place] [address] [facility] Start: 08-10-2024 End: 08-10-2024 Social Work [facility] Comment on above: Arrived Start: 07-31-2024 End: 07-31-2024 Patient encounter procedure [facility] Comment on above: Arrived Start: 07-18-2024 End: 07-18-2024 Social Work 07/18/2024 11:00 AM EDT Social Work [facility] [address] [place] [address] Theresa Perez, [facility] [address] [place] [address] [facility] Start: 07-16-2024 COVID-19 Vaccine ( season) COVID-19 Vaccine () [facility] Start: 07-16-2024 Influenza vaccination [facility] Start: 05-25-2024 End: 05-25-2024 Patient encounter procedure 05/25/2024 8:50 AM EDT Office Visit [facility] [address] [place] [address] Jani Bridges MD [address], [address] [address] [facility] Start: 05-11-2024 End: 05-11-2024 Patient encounter procedure 05/11/2024 10:00 AM EDT Office Visit [facility] [address] [place] [address] Jani Bridges MD [address], [facility] [address] [place] [address] [facility] Start: 04-27-2024 End: 04-27-2025 CTA Upper extremity vessels - left CT angiogram extremity upper left Imaging Routine 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) Expected: 04/27/2024, Expires: 04/27/2025 [employer] Work Phone: Comment on above: Expected: 04/27/2024 , Expires: 04/27/2025 Start: 02-25-2024 End: 02-10-2025 US.doppler Thoracic and Abdominal Aorta and Inferior Vena Cava and Illiac vessels Vas IVC/iliac duplex complete Vascular Ultrasound Routine Acute deep vein thrombosis (DVT) of iliac vein of left lower extremity (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 Expected: 02/25/2024 (Approximate), Expires: 02/10/2025 [employer] Work Phone: Comment on above: Expected: 02/25/2024 (Approximate), Expires: 02/10/2025 Start: 07-16-2023 Influenza vaccination Influenza Vacc ine [facility] Start: 02-14-2019 DTaP,Tdap and Td Vaccines (6 - Tdap) DTaP,Tdap and Td Vaccines (6 - Tdap) [facility] Start: 2013 Screening for malign ant neoplasm of cervix Pap Smear [facility] Start: 2010 Adult BMI Follow Up Plan Adult BMI Follow Up Plan [facility] Aerobic culture Aerobic culture Microbiology Routine Nipple discharge Nipple infection in female Ordered: 04/03/2025 [facility] Comment on above: Ordered: 04/03/2025 Anaerobic culture Anaerobic cult ure Microbiology Routine Nipple discharge Nipple infection in female Ordered: 04/03/2025 [facility] [employer] Work Phone: Comment on above: Ordered: 04/03/2025 Bacteria identified in Urine by Culture Urine culture Microbiology Routine UTI symptoms Ordered: 07/11/2024 [facility] Comment on above: Ordered: 07/11/2024 End: 04-27-2025 C-reactive protein C-reactive protein Lab Routine 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 ([facility]) 1 Occurrences starting 04/27/2024 until 04/27/2025 [facility] Comment on above: 1 Occurrences starti ng 04/27/2024 until 04/27/2025 CHLAMYDIA TRACHOMATI S (GENITO/STI) CHLAMYDIA TRACHOMATIS (GENITO/STI) Lab Routine Chronic bladder pain Ordered: 07/31/2024 [facility] Comment on above: Ordered: 07/31/2024 CHLAMYDIA TRACHOMATI S (GENITO/STI) CHLAMYDIA TRACHOMATIS (GENITO/STI) Lab Routine STD exposure Ordered: 07/11/2024 [facility] Comment on above: Ordered: 07/11/2024 Cytology Cervical or vaginal smear or scraping study Pap Smear Pathology and Cytology Routine Well woman exam with routine gynecological exam Ordered: 07/31/2024 [facility] Work Phone: Comment on above: Ordered: 07/31/2024 Cytology Cervical or vaginal smear or scraping study Pap Smear Pathology and Cytology Routine Well woman exam with routine gynecological exam H/O: hysterectomy Ordered: 08/06/2025 [facility] Work Phone: Comment on above: Ordered: 08/06/2025 End: 04-27-2025 Erythrocyte sedimentation rate Erythrocyte Sedimentation Rate (ESR) Lab Routine 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 ([facility]) 1 Occurrences starting 04/27/2024 until 04/27/2025 [facility] Comment on above: 1 Occurrences starti ng 04/27/2024 until 04/27/2025 Human papilloma viru s DNA [Presence] in Unspecified specimen by Probe with amplification HPV DNA probe, amplified Microbiology Routine Well woman exam with routine gynecological exam Ordered: 07/31/2024 [facility] Comment on above: Ordered: 07/31/2024 Human papilloma viru s DNA [Presence] in Unspecified specimen by Probe with amplification HPV DNA probe, amplified Microbiology Routine Well woman exam with routine gynecological exam H/O: hysterectomy Ordered: 08/06/2025 [facility] Comment on above: Ordered: 08/06/2025 Neisseria gonorrhoea e DNA [Presence] in Unspecified specimen by MÓNICA with probe detection Neisseria gonorrhea DNA probe, direct Lab Routine Chronic bladder pain Ordered: 07/31/2024 [facility] Comment on above: Ordered: 07/31/2024 Neisseria gonorrhoea e DNA [Presence] in Unspecified specimen by MÓNICA with probe detection Neisseria gonorrhea DNA probe, direct Lab Routine STD exposure Ordered: 07/11/2024 [facility] Comment on above: Ordered: 07/11/2024 Patient Education Low back pain in adults [facility] Work Phone: SURESWAB(R) ADVANCED VAGINITIS PLUS, TMA SURESWAB(R) ADVANCED VAGINITIS PLUS, TMA Pathology and Cytology Routine Chronic bladder pain Ordered: 07/31/2024 [facility] Comment on above: Ordered: 07/31/2024 SURESWAB(R) ADVANCED VAGINITIS PLUS, TMA SURESWAB(R) ADVANCED VAGINITIS PLUS, TMA Pathology and Cytology Routine Vaginal discharge Ordered: 07/11/2024 [facility] Work Phone: Comment on above: Ordered: 07/11/2024 Immunizations Immunization Date Immunization Notes Care Provider Fa cility 05-13-2021 SARS-CoV-2 (COVID-19 ) mRNA BNT-162b2 vax SYDNEE ANTONIO [facility] 04-22-2021 SARS-CoV-2 (COVID-19 ) mRNA BNT-162b2 vax SYDNEE ANTONIO [facility] 07-04-2019 hepatitis B vaccine, adult dosage SYDNEE ANTONIO [facility] 05-02-2019 hepatitis B vaccine, adult dosage SYDNEE ANTONIO [facility] 02-28-2019 hepatitis B vaccine, adult dosage SYDNEE ANTONIO [facility] 02-13-2019 Td(adult) unspecifie d formulation SYDNEE ANTONIO [facility] Comment on above: Result Comment: 2023: TENIVAC GIVEN BY DR RODRIGEZ IN [place] 07-11-1997 diphtheria, tetanus toxoids and acellular pertussis vaccine SYDNEE ANTONIO [facility] 07-11-1997 measles, mumps and rubella virus vaccine SYDNEE ANTONIO [facility] 07-11-1997 poliovirus vaccine, unspecified formulation SYDNEE ANTONIO [facility] 06-23-1993 Hib, unspecified formulation SYDNEE ANTONIO [facility] 06-23-1993 measles, mumps and rubella virus vaccine SYDNEE ANTONIO [facility] 06-23-1993 poliovirus vaccine, unspecified formulation SYDNEE ANTONIO [facility] 1992 Hib, unspecified formulation SYDNEE ANTONIO [facility] 1992 Hib, unspecified formulation SYDNEE ANTONIO [facility] 1992 poliovirus vaccine, unspecified formulation SYDNEE ANTONIO [facility] 1992 Hib, unspecified formulation SYDNEE ANTONIO [facility] 1992 poliovirus vaccine, unspecified formulation SYDNEE ANTONIO [facility] Payers Date Payer Category Payer Self-pay 2024 Unknown [id number] 2022 [employer]aged [employer] - Other [id number] 2022 Private Health Insurance [id number] 2022 Unknown [id number]. [id number] 1.315 2007 Unknown [id number] 1992 Unknown [id number] 2.16.840.1.666286.3.579.2.593 1992 Unknown [id number] 2.16.840.1.886107.3.579.2.593 1992 Unknown [id number] 2.16.840.1.244563.3.579.2.1285 1992 Unknown [id number] 2.16.840.1.122134.3.579.2.1285 1992 Unknown [id number] 2.16.840.1.495543.3.579.2.1285 1992 Unknown [id number] 2.16.840.1.905594.3.579.2.1285 1992 Unknown [id number] 2.16.840.1.143967.3.579.2.1285 1992 Unknown [id number] 2.16.840.1.824432.3.579.2.1285 1992 Unknown [id number] 2.16.840.1.698937.3.579.2.1285 1992 Unknown [id number] 2.16.840.1.035236.3.579.2.1285 1992 Unknown [id number] 2.16.840.1.728406.3.579.2.1285 1992 Unknown [id number] 2.16.840.1.039880.3.579.2.1285 1992 Unknown [id number] 2.16.840.1.645569.3.579.2.9 1992 Unknown [id number] 2.16.840.1.351324.3.579.2.1258 1992 Unknown [id number] 2.16.840.1.711212.3.579.2.1258 1992 Unknown [id number] 2.16.840.1.190092.3.579.2.1258 1992 Unknown [id number] 2.16.840.1.716754.3.579.2.1258 1992 Unknown [id number] 2.16.840.1.536574.3.579.2.1258 1992 Unknown [id number] 2.16.840.1.465939.3.579.2.1258 1992 Unknown [id number] 2.16.840.1.820126.3.579.2.1258 1992 Unknown [id number] 2.16.840.1.615556.3.579.2.1258 1992 Unknown [id number] 2.16.840.1.467066.3.579.2. 1992 Unknown [id number] 2.16.840.1.952581.3.579.2. 1992 Unknown [id number] 2.16.840.1.004615.3.579.2. 1992 Unknown [id number] 2.16.840.1.094759.3.579.2. 1992 Unknown [id number] 2.16.840.1.772410.3.579.2. 1992 Unknown [id number] 2.16.840.1.676353.3.579.2.1285 1992 Unknown [id number] 2.16.840.1.599665.3.579.2.1285 1992 Unknown [id number] 2.16.840.1.102682.3.579.2.196 1959 Medicaid [id number] 1959 Unknown [id number] 1959 Unknown [id number] 1959 Unknown [id number] Unknown [id number] Unknown [id number] 2.16.840.1.525574.3.579.2.531 Social History Date Type Detail Facility Start: 07-31-2024 End: 08-08-2024 Tobacco smoking status Ex-smoker (finding) [facility] Start: 07-31-2024 End: 08-31-2024 Sex Assigned At Unknown [facility] History of tobacco use Current smoker [facility] History of tobacco use Cigarette Smoker P [facility] Start: 07-31-2024 End: 08-31-2024 Cigarettes smoked current (pack per day) - Reported 0.5 [facility] Start: 01-23-2024 End: 07-31-2024 Tobacco use and exposure Smokeless tobacco non-user [facility] Start: 08-03-2024 End: 08-06-2025 Alcoholic beverage intake Lifetime non-drinker (finding) [facility] Start: 09-10-2023 Tobacco Comment 5 or less ciga rettes a day [facility] Start: 1990 Sex assigned at Not on file P [facility] Start: 09-10-2023 Tobacco smoking stat [facility] Occasional tobacco smoker [facility] Start: 02-14-2024 End: 05-31-2025 Alcoholic beverage intake Ex-drinker (finding) [facility] [employer] [facility] Has the Itandi, or Fl[employer] threatened to shut off services in your home in past 12Mo No [facility] How often to you hav e a drink containing alcohol? Never [facility] How many standard dr inks containing alcohol do you have on a typical day? Patient does not drink [facility] if ever smoked [facility] Work Phone: Start: 03-24-2018 End: 02-20-2025 Sex Female (finding) [facility] Start: 1990 Sex Assigned At Female [facility] Sexual Orientation [facility] [place] Medical Equipment Procedure Code Equipment Code Equipment Origin al Text Equipment Identifier Dates Stent Vsc 18mm X 100mm Venous Nitinol Slf Expanding Karey - [id number] Start: 01-24-2024 Functional Status Date Assessment Result Facility 12-26-2024 Functional Status N/A [facility] 10-03-2024 Functional Status N/A [facility] 08-08-2024 Functional Status N/A [facility] Clinical Notes 02-10-2024 to 08-06-2025 Ashely Quinteros NP - 08/06/2025 10:00 AM EDT Note Date & Type Note Facility 08-06-2025 History of Presen t illness Narrative Reason for Appointment: Patient ID: Tawana Silverman is a 35 y.o. female who presents for Gynecologic Exam Patient presents today for Annual Exam. MEDICATIONS Current Outpatient Medications Medication Instructions acetaminophen (TYLENOL) 1,000 mg, Oral, Every 6 hours cyclobenzaprine (FLEXERIL) 5 mg, Oral, 3 times daily PRN Eliquis DVT/PE Starter Pack 5 MG tablet therapy pack Take 2 tablets by mouth twice daily for 7 days, then take 1 tablet twice daily gabapentin (Neurontin) 300 MG capsule 1 capsule Probiotic tablet delayed-release Every 24 hours ALLERGIES [...] Respiratory: Negative. Cardiovascular: Negative. Gastrointestinal: Negative. Genitourinary: Positive for pelvic pain. Musculoskeletal: Negative. Skin: Negative. Neurological: Negative. All other systems reviewed and are negative. Hematological: Negative. Endocrine: Negative. Allergic/Immunologic: Negative. OBJECTIVE Objective: Physical Exam Constitutional: Appearance: Normal appearance. She is well-developed. Genitourinary: Vulva normal. Breasts: Breasts are soft. Right: Normal. Left: Normal. Cardiovascular: Rate and Rhythm: Normal [...] nursing note reviewed. Exam conducted with a metal painter present. Vitals: Estimated body mass index is 24.69 kg/m as calculated from the following: Height as of this encounter: 5' 2 . Weight as of this encounter: 135 lb. BP: 118/70 No LMP recorded. Patient has had a hysterectomy. ASSESSMENT & PLAN ICD-10-CM 1. Well woman exam with routine gynecological exam Z01.419 Pap Smear HPV DNA probe, amplified 2. H/O: hysterectomy Z90.710 Pap Smear HPV DNA probe, amplified Annual Exam: Patient presents today for an annual exam. Patient states she is doing well and has no complaints. Pap was obtained without difficulty. Orders Placed This Encounter Procedures HPV DNA probe, amplified Follow Up: Patient with complaints of continued pelvic pain s/p hysterectomy and cystoscopy. Will trial low dose Celexa for pelvic pain. She will schedule telehealth in 6 weeks. Patient is to return in one year for annual unless needed otherwise. Documented by Ashely Quinteros NP on behalf of: Andre Treviño DO documented in this encounter [facility] 07-23-2025 Evaluation note Diagnosis Onset Date Resolution Disorder of left sacroiliac joint acute July 23, 2025 9:33am Low back pain acute July 162024 3:49pm Other chronic pain acute 2024 3:49pm Sacroiliitis, not elsewhere classified acute July 162024 3:49pm [facility] Work Phone: [phone]) 686-815507-17-2025 Evaluation + Plan note* Assessment & Plan Note - Jani Bridges MD - 05/31/2025 7:02 PM EDTAssociated Problem(s): DVT (deep venous thrombosis) ([facility]) Continue anticoagulation. 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 Duplex ultrasound in a year. [facility]07-17-2025 Miscellaneous Notes* Assessment & Plan Note - Jani Bridges MD - 05/31/2025 7:02 PM EDTAssociated Problem(s): DVT (deep venous thrombosis) ([facility]) Continue anticoagulation. 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 Duplex ultrasound in a year. documented in this encounterBl[facility] History of Present illness Narrative* Jani [...] 01/24/2024 Performed by Jani Bridges MD at [facility] SPECIAL PROC Social [...] Plan: Problem List DVT (deep venous thrombosis) ([facility]) Current Assessment & Plan Continue anticoagulation. Relevant [...] iliac vein of left lower extremity ([facility]) - Vas IVC/iliac duplex complete; Future [...] you for your understanding. documented in this encounterBl[facility] History of Present illness Narrative* Gaby Pal LPN - 04/17/2025 8:00 AM EDT Reason for Appointment: Patient ID: Tawana Silverman is a 35 y.o. female who presents for No chief complaint on file. Patient presents today via telephone call for a telehealth appointment. Patients Phone #: [phone] (mobile) Date: 04/17/2025 Time: 9:51 AM of [...] of: Andre Treviño DO documented in this encounterShriners Hospitals for [id number] History of Present illness Narrative* Gaby Pal [...] (human papilloma virus) infection 2006 Ovarian cyst 2020 Vaginal Pap smear 07/2022 [...] nursing note reviewed. Exam conducted with a metal painter present. Vitals: Estimated body mass index is 24.51 kg/m as calculated from the following: Height as of 24: 5' 2 . Weight as of this [...] of: Andre Treviño DO documented in this encounterShriners Hospitals for [id number] Hospital Discharge instructions Patient Education 12/26/2024 10:32:16 [...] Follow these instructions at home: Medicines Take gymq-lhx-bjxhqlf and prescription medicines only as told by [...] provider. Document Revised: 08/18/2023 Document Reviewed: 08/18/2023 Behavio Patient Education 2023 Fur and Mask. Follow Up Care 10/03/2024 10:18:19 With:[facility] Address: When: Unknown Comments:Only if needed/new problems arise. No scheduled appointment indicated at this time. [facility] 02-11-2025 NotePatient Education Gastroenterology Abdominal Pain, Adult [...] these instructions at home: Medicines ??? Take vdaq-wvn-kvuuqae and prescription medicines only as told by [...] provider. Document Revised: 08/18/2023 Document Reviewed: 08/18/2023 Behavio Patient Education ? 2023 Fur and Mask.[facility] 10-03-2024 Evaluation + Plan noteExtracted from: [...] Date:12/26/2024 09:30:00 AM Scheduled Provider:SYDNEE ALVAREZ PA-C Location:[facility] Appointment Type:URO Office Visit Appointment Date:04/04/2025 01:00:00 PM Scheduled Provider:Julien HOYOS MD Location:[facility] Appointment Type:URO Office Visit [facility] 11-19-2024 Hospital Discharge instructions Patient Education [...] Up Care 08/18/2024 15:06:34 With:Julien HOYOS Address: [address] [place] [address] Business (1) When:01/31/2025 10:02:39 Comments:With Roxane Antonio [facility] 11-19-2024 NoteProgress Note-Physician Patient: TAWANA SILVERMAN [...] All Problems Endometriosis (clinical) / SNOMED CT 690733678 / Confirmed Deep venous thrombosis / SNOMED CT 089977373 / Confirmed Factor V deficiency / SNOMED CT 5503145 / Confirmed Leukocytosis / SNOMED CT 949525816 / Confirmed Migraine / SNOMED CT 49642375 / Confirmed Anxiety / SNOMED CT 32740489 / Confirmed Chronic pelvic pain in female / SNOMED CT 217094012 / Confirmed Chronic bladder pain / SNOMED CT 0267169723 / Confirmed Recurrent vaginitis / SNOMED CT 61048243 / Confirmed Histories Past Medical History: No active or resolved past medical history items have been selected or recorded. Family History: Congenital heart disease Mother Primary malignant neoplasm of female breast Grandparent Alcoholism Mother Migraines Mother Procedure history: Thrombectomy (55398606) in 2023 at 34 Years. Salpingectomy (7900597887) on 01/07/2024 at 33 Years. Comments: 08/08/2024 8:57 Therese Lowe MA partial History of appendectomy (situation) (2786260661). History of - hysterectomy (context-dependent category) (304482432). Laparoscope (059031204). Comments: 08/08/2024 8:55 Therese Lowe MA pelvic [...] Follow-up will be in 4 months for reevaluation.[facility]:Result Comment: Electronically Signed By: ROMAIN NAVARRO, Julien Arana\Date and Time Signed: 10/03/24 10:13 [id number] NotePatient Education Custom Cystoscopy with Urethral Dilation [...] if you have a fever over 100 degreesEcu Health Roan[facility] Hospitaler [facility] 08-31-2024 History of Present [...] Diagnosis Date Abnormal Pap smear of cervix 2007 BV (bacterial vaginosis) HPV (human papilloma virus) infection 2007 Ovarian cyst 2020 Vaginal Pap smear 07/2022 Yeast infection of the vagina HISTORY PAST MEDICAL HISTORY SOCIAL HISTORY Past Medical History: Diagnosis Date Abnormal Pap smear of cervix 2007 BV (bacterial vaginosis) Endometriosis HPV (human papilloma [...] nursing note reviewed. Exam conducted with a metal painter present. Vitals: Estimated body mass index is [...] of: Andre Treviño DO documented in this encounterShriners Hospitals for [id number] Hospital Discharge instructions Patient Education 08/08/2024 12:40:13 [...] known. Follow these instructions at home: Take jett-hkm-pxbbjnc and prescription medicines only as told by [...] provider. Document Revised: 03/10/2022 Document Reviewed: 03/10/2022 Behavio Patient Education 2023 Fur and Mask. Follow Up Care 08/03/2024 15:49:20 With:[facility] Address: [address] [place] [phone] Business (1) When: Unknown Comments:our human resources manager manufacturing will be contacting you for follow-up [facility] 09-24-2024 NoteUrology Office/Clinic Note Chief [...] test anxiety. Knows she will need a truck driver's offsider. Ordered: diazepam, See Instructions, 1 tab po 30-60 mins prior to cystoscopy, # 1 tab(s), Refills(s) 0, Pharmacy: [facility]/pharmacy #[id number], 158, cm, 08/08/24 11:39:00 EDT, Height/Length Dosing, 60, kg, 08/08/24 11:39:00 EDT, Weight Dosing E&M of New Patient Moderate 45-59 Min 94577 2. Chronic pelvic pain in female (R10.2: Pelvic and perineal pain) Sp hysterectomy 2017 w several laproscopy d/t endometriosis. Had laproscopy Dec 2023 and bilat salpingectomy at that time. Pt reports no endometriosis found at that time. Will refer to PFPT at [facility] (her sx are a bit beyond my scope of PFPT) to assess for hypertonicpelvic floor, etc. Ordered: diazepam, See Instructions, 1 tab po 30-60 mins prior to cystoscopy, # 1 tab(s), Refills(s) 0, Pharmacy: [facility]/pharmacy #[id number], 158, cm, 08/08/24 11:39:00 EDT, Height/Length Dosing, 60, kg, 08/08/24 11:39:00 EDT, Weight Dosing 64531 Measure Post Void residual urine and/or bladder capacity by US- non-imaging E&M of New Patient Moderate 45-59 Min 46676 Urnls Dip Stick Auto w/o Microscopy POC 48613 3. Recurrent vaginitis (N76.0: Acute vaginitis) Also reports frequent vaginal infections - bacterial and fungal. Ordered: diazepam, See Instructions, 1 tab po 30-60 mins prior to cystoscopy, # 1 tab(s), Refills(s) 0, Pharmacy: [facility]/pharmacy #[id number], 158, cm, 08/08/24 11:39:00 EDT, Height/Length Dosing, 60, kg, 08/08/24 11:39:00 EDT, Weight Dosing E&M of New Patient Moderate 45-59 Min 44401 Follow-up With When Contact Information [facility] [place] [address] Business (1) Additional Instructions: our human resources manager manufacturing will be contacting you for follow-up Patient Education Pelvic Pain, Female Problem List/Past Medical History Ongoing Anxiety Chronic bladder pain Chronic pelvic pain in female Deep venous thrombosis Endometriosis (clinical) Factor V deficiency Leukocytosis Migraine Recurrent vaginitis Historical No qualifying data Procedure/Surgical History Salpingectomy (01/07/2024), Thrombectomy (2023), H/O: hysterectomy, History of appendectomy, Laparoscope. Medications CV (more content not included)...[facility]: Result Comment: Electronically Signed By: SYDNEE ALVAREZ PA-C.shikha\Date and Time Signed: 08/08/2412:41 [id number] NotePatient Education Obstetrics and Gynecology Pelvic Pain, [...] Follow these instructions at home: ? Take xplr-zmr-vjsueno and prescription medicines only as told by [...] provider. Document Revised: 03/10/2022 Document Reviewed: 03/10/2022 ElseShare[employer] Patient Education ? 2023 Fur and Mask.[facility] 07-31-2024 History of Present illness Narrative* [...] nursing note reviewed. Exam conducted with a metal painter present. Vitals: Estimated body mass index is [...] of: Andre Treviño DO documented in this encounterShriners Hospitals for [id number] History of Present illness Narrative* GEMA Earl [...] (Neurontin) 300 MG capsule 1 capsule HYDROcodone-acetaminophen ([place]) 5-325 MG tablet TAKE 1 TABLET EVERY 4 HOURS ibuprofen 800 MG tablet TAKE 1 TABLET EVERY 8 HOURS Lactobacillus Acid-Pectin (Acidophilus/Nicut Pectin) tablet 1 tablet, Oral, Daily with [...] behalf of: GEMA Earl documented in this encounterShriners Hospitals for [id number] Evaluation + Plan note* Assessment & Plan Note - Jani Bridges MD - 05/25/2024 9:17 AM EDT Associated Problem(s): DVT (deep venous thrombosis) ([facility]) Continue anticoagulation for total of 6 months. She probably benefit from D- dimer check at that time. [facility]07-11-2024 Miscellaneous Notes* Assessment & Plan Note - Jani Bridges MD - 05/25/2024 9:17 AM EDTAssociated Problem(s): DVT (deep venous thrombosis) ([facility]) Continue anticoagulation for total of 6 months. She probably benefit from D- dimer check at that time. 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 She will continue aspirin indefinitely. She will get a surveillance imaging in a year. 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 She will continue aspirin indefinitely. She will get a surveillance imaging in a year. [facility]07-11-2024 History of Present illness Narrative* Jani [...] 01/24/2024 Performed by Jani Bridges MD at [facility] SPECIAL PROC Social [...] Plan: Problem List DVT (deep venous thrombosis) ([facility]) May-Thurner syndrome - Primary Current Assessment & [...] iliac vein of left lower extremity ([facility]) Jani Bridges MD, [place], RPVI, FSVS, FACS [...] you for your understanding. 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 Continue aspirin. 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 She will continue [...] 01/24/2024 Performed by Jani Bridges MD at [facility] SPECIAL [facility] Social [...] Jani Bridges MD, [place], RPVI, FSVS, FACS [facility] [employer] This note was created with the assistance of a speech recognition program. While intending to generate a timely document that accurately reflects the content of the visit, no guarantee can be provided that every grammatical or spelling mistake has been or will be identified or corrected. Thank you for your understanding. documented in this encounterBlanchard [facility]03[facility] History of Present illness Narrative* Jani Bridges MD - 02/10/2024 2:40 PM EDT Images from the original note were not included. [facility] [address] [place] [phone] Subjective: Patient ID: Tawana Silverman is a [...] Problem List Diagnosis DVT (deep venous thrombosis) ([facility]) May-Thurner syndrome Current Outpatient Medications: acetaminophen (TYLENOL [...] iliac vein of left lower extremity ([facility]) May-Thurner syndrome Plan Plan: Eliquis ASA US of the left iliac veins F/U in 3 months Jani Bridges MD, [place] documented in this encounterGlenbeigh Hospital SystemEvaluation + Plan note No data available for this section [facility] evaluation + Plan note Future Appointments Appointment Date:04/04/2025 01:00:00 PM Scheduled Provider:Julien HOYOS MD Location:[facility] Appointment Type:URO Office Visit [facility] evaluation note* Diagnosis Vaginal discharge Leukorrhea, not specified as infective STD exposure documented [facility]* Diagnosis [place] (generalized anxiety disorder) ([facility]) Generalized anxiety disorder Adjustment disorder with depressed mood ([facility]) Adjustment disorder with depressed mood documented in this encounter [facility]* Diagnosis Well woman exam with routine gynecological exam Routine gynecological examination Chronic bladder pain documented in this encounter [facility]* Diagnosis [place] (generalized anxiety disorder) ([facility]) Generalized anxiety disorder documented [facility]* Diagnosis UTI symptoms Vaginal discharge Leukorrhea, not specified as infective STD exposure documented in this encounter [facility] HealthcareEvaluation note* Diagnosis [place] (generalized anxiety disorder) (CMS/HCC) Generalized anxiety disorder documented in this encounter [facility] HealthcareEvaluation note* Diagnosis 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 Compression [...] SystemEvaluation noteNo assessment information available [facility] Work Phone: Evaluation note* Diagnosis Nipple pain Other sign and symptom in breast Nipple discharge Other sign and symptom in breast Nipple infection in female Antibiotic-induced yeast infection documented in this encounter [facility] HealthcareEvaluation note* Diagnosis Yeast infection documented in this encounter [facility] HealthcareEvaluation note* Diagnosis 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 Compression of vein 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 Compression of vein Acute deep vein thrombosis (DVT) of iliac vein of left lower extremity (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 Compression of vein Acute deep vein thrombosis (DVT) of iliac vein of left lower extremity (CMS-HCC) [facility] Diagnosis Pelvic pain in female- Primary Unspecified symptom associated with female genital organs Well woman exam with routine gynecological exam Routine gynecological examination H/O: hysterectomy Acquired absence of both cervix and uterus documented in this encounter [facility] HealthcareHospital Discharge instructions No data available for this section [facility] InstructionsNot on filedocumented in this encounter [facility] SystemInstructionsNot on filedocumented in this encounter [facility] SystemInstructionsNot on filedocumented in this encounter [facility] SystemInstructionsNot on filedocumented in this encounter [facility] SystemInstructionsNot on filedocumented in this encounter [facility] SystemInstructionsNot on filedocumented in this encounter [facility] SystemProgress note No data available for this section [facility] reason for referral (narrative)No reason for referral information availableMercy Health Work Phone: Summary Purpose Family History No [...] iliac vein of left lower extremity ([facility]) May-Thurner syndrome Procedures Vas IVC/iliac duplex complete Jani Bridges MD [address], [address] [address] Phone: Referral ID Status Reason Start Date Expiration Date V isits Requested Visits Authorized [id number] Pending Review 02/11/2024 02/10/2025 1 1 Specialty Diagnoses / Procedures Referred By Contac t Referred To Contact Radiology Diagnoses 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 ([facility]) Procedures CT angiogram extremity upper left Jani Bridges MD [address], [address] [address] Phone: Referral ID Status Reason Start Date Expiration Date V isits Requested Visits Authorized [id number] Pending Review 04/27/2024 04/27/2025 1 1 Chief Complaint and Reason for Visit Chief Complaint Admit Date C only;Chronic Pelvic Pain February 19 9:00am Chief Complaint Admit Date TB CONSULT DR RAIN HEALY HIP PAIN MRI [facility] 2024 9:33am Chief Complaint Admit Date TB CONSULT [facility] RAIN HEALY HIP PAIN [facility] 2024 9:33am CONSULT DR BENTLEY LT HIP July 26, 2025 3:49pm Reason for Visit Admit Date Disorder of left sacroiliac joint Sept2024 9:33am Low back pain July 26, 2025 3:49pm Other chronic pain July 26, 2025 3:49pm Sacroiliitis, not elsewhere classified [facility] 2024 3:49pm Additional Source Comments INFORMATION SOURCE (unrecogn ized section and content) DATE CREATED AUTHOR 04/23/2023 [facility] DATE CREATED AUTHOR AUTHOR'S ORGANIZ ATION 01/27/2024 [facility] DATE CREATED AUTHOR AUTHOR'S ORGANIZ ATION 05/31/2024 [facility] DATE CREATED AUTHOR AUTHOR'S ORGANIZ ATION 04/04/2025 [facility] DATE CREATED AUTHOR AUTHOR'S ORGANIZ ATION 04/11/2025 [facility] DATE CREATED AUTHOR AUTHOR'S ORGANIZ ATION 06/03/2025 [facility] DATE CREATED AUTHOR AUTHOR'S ORGANIZ ATION 06/27/2025 [facility] DATE CREATED AUTHOR AUTHOR'S ORGANIZ ATION 07/08/2025 [facility] Patient Care team informatio n (unrecognized section and content) 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 Start Date End Date Usman Rodrigez MD [address] [place] [address] PCP - General Family Medicine 03/24/23 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 Start Date End Date Usman Rodrigez MD [address] [place] [address] PCP - General Family Medicine 03/24/23 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 Start Date End Date Usman Rodrigez MD [address] [facility] [place] [address] PCP - General Family Medicine 03/24/23 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 Start Date End Date Usman Rodrigez MD [address] [facility] [place] [address] PCP - General Family Medicine 03/24/23 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 Start Date End Date Usman Rodrigez MD [address] [facility] [place] [address] PCP - General Family Medicine 03/24/23 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 Start Date End Date Usman Rodrigez MD [address] [facility] [place] [address] PCP - General Family Medicine 03/24/23 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 Start Date End Date Usman Rodrigez MD [address] [facility] [address] PCP - General 02/09/24 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 Start Date End Date Usman Rodrigez MD [address] [facility] [place] [address] PCP - General 02/09/24 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 Start Date End Date Usman Rodrigez MD [address] [facility] [place] [address] PCP - General 02/09/24 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 Start Date End Date Usman Rodrigez MD [address] [place] [address] PCP - General 02/09/24 Team Status: Active Member Role Status Dates Usman Rodrigez MD Primary Care Provider Active Team Status: Inactive Member Role Status Dates Sydnee Alvarez PA-C Attending Provider Active Start: February 19, 2025 End: February 19, 2025 Usman Rodrigez MD Primary Care Provider Active Start: February 19, 2025 End: February 19, 2025 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 Start Date End Date Usman Rodrigez MD PCP - General 02/09/24 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 Start Date End Date Usman Rodrigez MD PCP - General Family Medicine 03/24/23 Theresa Perez [facility] [address] [place] [address] Banking Assistant Behavioral Health 01/08/25 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 Start Date End Date Usman Rodrigez MD PCP - General Family Medicine 03/24/23 Theresa Perez [facility] [address] [place] [address] Banking Assistant Behavioral Health 01/08/25 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 Start Date End Date Usman Rodrigez MD PCP - General Family Medicine 03/24/23 Theresa Perez, [facility] [address] [place] [address] Banking Assistant Behavioral Health 01/08/25 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 Start Date End Date Usman Rodrigez MD PCP - General Family Medicine 03/24/23 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 Start Date End Date [...] July 26, 2025 End: July 26, 2025 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 Start Date End Date Usman Rodrigez MD [address] [place] [address] PCP - General Family Medicine 03/24/23 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 Start Date End Date Usman Rodrigez MD [address] [place] [address] PCP - General Family Medicine 03/24/23 Reason for Visit (unrecogniz ed section and [...] nipple infection. Reason Comments Follow-up Testing done Reason Comments Gynecologic Exam Goals (unrecognized section and content) Goals may [...] CLINICAL RECORDS. [facility] [employer] [facility]. provides no warranty or guarantee of the accuracy or completeness of information in this document.
[2025-08-10 11:08] LABS: Age Gdln ACOG Testing Note (.); IGP, Aptima HPV, rfx 16/18,45 Note (.)
== END 2025-08-06 12:57 | disposition home or self-care (01) ==
LOC: LAB 12:56
PROVIDERS: PCP Family Medicine; Visit Provider Obstetrics & Gynecology
DX: Z01.419 Encounter for gynecological examination (general) (routine) without abnormal findings (principal)
CPT/HCPCS: 87624; 88175